=== PATIENT | male | born 1985 ===

== ENCOUNTER 2025-03-26 14:17 | Inpatient (IN) | payer MEDICAID, OTHER, SELFPAY ==
--- OUTSIDE RECORDS SUMMARY | 2025-03-26 14:40 | XMS_ITS | Clinical Summary ---
Author Organization [facility] Address [address] [place] [address] Care Team Providers Care Hedge Fund Manager Name Role Phone Camila Godwin PA-C Primary Care Provider [phone] Source Comments PLEASE NOTE, if this patient is a minor, it may be UNLAWFUL to discuss sensitive information that is contained in these records (such as FAMILY PLANNING, MENTAL HEALTH or SUBSTANCE ABUSE) with the minor patient's parent or other person without the patient's specific authorization.[facility] Allergies No known active allergies Active Problems Problem Noted Date Diagnosed Date H/O heart valve stenosis 08/21/2020 Delusional disorder ([facility]) 06/25/2018 Immunizations Immunization Administration Dates Next Due PNEUMOCOCCAL POLYSACCHARIDE PPV23 (Pneumovax 23) 08/21/2020 TDAP 08/21/2020 Family History Medical History Relation Name Comments Heart Problems Brother 1 Heart Problems Father Breast cancer Mother 47 yo Diabetes Mother 47 yo Relation Name Status Comments Brother 1 Brother 2 Alive Father Mother 47 yo Social History Tobacco Use Types Packs/Day Years Used Date Smoking Tobacco: Every Day Cigarettes 0.3 20 Smokeless Tobacco: Never Tobacco Cessation:Ready to Q uit: Yes; Counseling Given: Yes Comments:patient stated that he smokes 3-4 cigarettes per day Alcohol Use Standard Drinks/Week Comments Not Currently 0 (1 standard drink = 0.6 oz pur e alcohol) Social Connections Answer Date Recorded Connectedness 0 07/28/2024 Financial Resource Strain Answer Date R ecorded Financial Resource Strain 0 2019 Stress Answer Date Recorded Stress 0 07/15/2020 Physical Activity Answer Date Recorded Physical Activity 0 07/15/2020 Food Insecurity Answer Date Recorded Food 0 08/01/2024 Transportation Needs Answer Date Record ed Transportation 0 07/15/2020 Housing Stability Answer Date Recorded Housing 0 07/15/2020 Safety and Environment Answer Date Javier rded Safety 0 07/15/2020 Utilities Answer Date Recorded Utilities 0 07/15/2020 Employment Answer Date Recorded Stress 0 07/28/2024 Sex and Gender Information Value Date Recorded Sex Assigned at Male 08/24/2020 5:37 AM PDT Legal Sex Male 10:19 AM PDT Gender Identity Male 08/24/2020 5:37 AM PDT Sexual Orientation Straight 08/24/2020 5: 37 AM PDT Last Filed Vital Signs Vital Sign Reading Time Taken Comments Blood Pressure 100/70 08/21/2020 9:57 AM EDT Pulse 68 08/21/2020 9:57 AM EDT Temperature 36.7 ??C (98.1 ??F) 08/21/2020 9:57 AM ED T Respiratory Rate 16 08/21/2020 9:57 AM EDT Oxygen Saturation - - Inhaled Oxygen Concentration - - Weight 88.5 kg (195 lb) 08/21/2020 9:57 AM EDT Height 208.3 cm (6' 10 ) 08/21/2020 9:57 AM EDT Body Mass Index 20.39 08/21/2020 9:57 AM EDT Plan of Treatment Health Maintenance Due Date Last Done Comments Anxiety Screening 1986 Tobacco Screening 1986 Imm-Hepatitis B (1 of 3 - 19 + 3-dose series) 2005 Hypertension Screening (#1) 08/21/2021 Imm-Pneumococcal (2 of 2 - PCV) 08/21/2021 0 Tobacco Cessation Counseling (#1) 08/21/2021 Diabetes Screening 08/21/2023 08/21/2020, 08/21/2020 [id number] (1 - season) 2024 Imm-Influenza (#1) 2024 11/28/2019 Alcohol and Drug Screen 11/06/2024 08/21/2020, 08/21 Depression Annual Screen 11/06/2024 08/21/2020 Imm-DTaP/Tdap/Td (2 - Td or Tdap) 08/21/2030 020 HIV Screening Completed 08/21/2020 Hepatitis C Screening Completed 08/21/2020 Procedures Procedure Name Priority Date/Time Associated Diagnosis Comments ANTIBODY HIV-1&HIV-2 SINGLE RESULT Routine 08/21/2020 11:23 AM EDT Encounter for screening for HIV HEPATITIS A,B,C PANEL Routine 08/21/2020 11:23 AM EDT Need for hepatitis C screening test HEMOGLOBIN GLYCOSYLATED A1C Routine 08/21/2020 11:23 AM EDT Encounter to establish care from Last 3 Months or Most Recently Relevant to Health Maintenance Results * (ABNORMAL) HEPATITIS A,B,C PANEL (08/21/2020 11:23 AM EDT) HEPATITIS B SURFACE ANTIBODY NEGATIVE NEGATIVE [facility] HEPATITIS B SURFACE ANTIGEN POSITIVE(A) NEGATIVE [facility] Comment: Over the counter supplements containing high doses of biotin may interfere with this assay. ??If interference is suspected, patients shoud be retested after refraining from biotin supplements for 72 hours. HEPATITIS C VIRUS DIAGNOSTIC NEGATIVE NEGATIVE [facility] HEPATITIS A ANTIBODY TOTAL POSITIVE(A) NEGATIVE [facility] Comment: Over the counter supplements containing high doses of biotin may interfere with this assay. ??If interference is suspected, patients shoud be retested after refraining from biotin supplements for 72 hours. HEPATITIS B CORE ANTIBODY POSITIVE(A) NEGATIVE [facility] Blood Blood / Unknown 08/21/2020 1 1:23 AM EDT 08/21/2020 5:01 PM EDT Narrative [facility] - 08/21/2020 8:08 PM EDT [employer], [place] [address] Stripper Preliminary - Cailin Mary MD PT ID [id number] ORD# [id number] Camila Godwin PA-C LAB - BLOOD DRAW [place] [address], * HIV-1 & HIV-2 ANTIBODIES (08/21/2020 11:23 AM EDT) [facility] HIV 1 AND 2 ANTIBODY SCREEN NEGATIVE NEGATIVE [facility] Comment: This assay is a 4th generation assay allowing for earlier detection of HIV infection by detecting the presence of the HIV-1 p24 antigen as well as the traditional antibodies to HIV type 1 (including group O) and type 2. ??Use of a 4th generation assay is the current CDC recommendation for HIV screening. Blood Blood / Unknown 08/21/2020 1 1:23 AM EDT 08/21/2020 5:01 PM EDT [facility] - 08/21/2020 8:29 PM EDT [employer] [address] Stripper Preliminary - Cailin Mary MD PT ID [id number] ORD# [id number] us Camila Godwin PA-C LAB - BLOOD DRAW Edited Resu lt - Final Performing Organization Address City/[facility]/ZIP Co de Phone Number [address] [address], [place] [phone] * HEMOGLOBIN, GLYCOSYLATED (A1C) (08/21/2020 11:23 AM EDT) [facility] GLYCATED HEMOGLOBIN A1C 5.0 <6.5 % [facility] ESTIMATED AVERAGE GLUCOSE 97 mg/dL [facility] Blood Blood / Unknown 08/21/2020 1 1:23 AM EDT 08/21/2020 5:01 PM EDT Sharmaine [facility] - 08/21/2020 9:21 PM EDT [employer], a member of [address] [address] Stripper Preliminary - Cailin Mary MD PT ID [id number] ORD# [id number] us Camila Godwin PA-C LAB - BLOOD DRAW Final Resul t Performing Organization Address City/[facility]/ZIP Co de Phone Number [address] [address], from Last 3 Months or Most Recently Relevant to Health Maintenance [place] [facility] SAFETY NET DENTAL Care Teams Hedge Fund Manager Relationship Specialty Start Date End Date Camila Godwin PA-C [address] [place] [address] PCP - General FAMILY MEDICINELINDA 07/14/20
[2025-03-26 15:44] VITALS: BMI 15.4
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
[2025-03-26 20:00] VITALS: BP 128/67; PULSE 89; RESP 16; TEMP 36.9; O2SAT 100
[2025-03-27 07:50] VITALS: BP 143/80; PULSE 88; RESP 16; TEMP 37.2; O2SAT 100
[2025-03-27 09:11] VITALS: BP 143/80; PULSE 88
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
[2025-03-27 09:51] LABS: MANUAL DIFF FLAG NO
[2025-03-27 09:59] LABS: Hematocrit 40.6 % (42.0-52.0); Hemoglobin 13.3 g/dl (14.0-18.0); Imm Gran Abs Auto 0.01 X10*3/uL (0.00-0.03); Imm Gran Pct Auto 0.2 % (0.0-0.4); Lymphocytes Absolute Auto 2.1 X10*3/uL (1.2-4.9); Mean Corpuscular HGB Conc 32.8 g/dl (31.0-36.0); Mean Corpuscular Hemoglobin 24.9 pg (27.0-33.0); Mean Corpuscular Volume 75.9 fL (80.0-98.0); NRBC Abs Auto 0.000 X10*3/uL (0.0-0.012); NRBC Pct Auto 0.0 /100WBC (0.0-0.2); Platelet Count 323 X10*3/uL (160-400); Red Blood Count 5.35 X10*6/uL (4.60-5.80); White Blood Count 4.9 X10*3/uL (4.8-10.8)
[2025-03-27 11:06] LABS: Hemoglobin A1C 118.1046 umol/L; Total Hemoglobin (HGBA1C) 3468.5145 umol/L
[2025-03-27 11:17] LABS: Cholesterol 117 mg/dL (<200); HDL Cholesterol 38 mg/dL (>40); Triglycerides 97 mg/dL (<150)
[2025-03-27 11:45] LABS: Free T4 (Free Thyroxine) 2.30 ng/dL (0.71-1.85); Thyroid Stimulating Hormone < 0.01 uIU/mL (0.32-4.0)
[2025-03-27 12:09] LABS: Folate 13.4 ng/mL (> or = 4.0); Vitamin B12 663 pg/mL (200-900)
--- NOTE | 2025-03-27 14:17 | P.PNPSI_ITS ---
Subjective Subjective Date of Service: 03/27/25 Reason For Visit: Major depressive d/o, single episode, unspecified Interim History: declined interview, stated he wanted to sleep. per staff, refused meds last NOC. slept about 5 hours. took meds this morning. religiously preoccupied. Mental Status Exam Mental Status Exam Narrative: very tall and thin. adequately dressed and groomed. exopthalmos. not cooperative. somnolent. speech rapid but decr amount. thoughts linear in brief interaction. affect hyper-intense, constricted, non-labile. mood not assessed. no SI/HI/AVH expressed. Diagnostics Vital Signs (24Hr): Vital Signs - 24 hr 03/26/25 20:00 03/27/25 07:50 03/27/25 09:11 Temperature 98.4 F 98.9 F Pulse Rate 89 88 88 Respiratory Rate 16 16 Blood Pressure 128/67 143/80 H 143/80 H Pulse Oximetry 100 100 Oxygen Delivery Method Room Air Room Air BMI result Body Mass Index 15.4 Labs 03/27/25 09:44 Labs: Laboratory Results - last 48 hr 03/27/25 09:44 WBC 4.9 RBC 5.35 Hgb 13.3 L Hct 40.6 L MCV 75.9 L MCH 24.9 L MCHC 32.8 RDW 14.7 Plt Count 323 MPV 9.4 Immature Gran % (Auto) 0.2 Neut % (Auto) 31.4 L Lymph % (Auto) 43.2 H Mccormick % (Auto) 12.8 H Eos % (Auto) 11.8 H Baso % (Auto) 0.6 Lymph # (Auto) 2.1 Mccormick # (Auto) 0.6 Eos # (Auto) 0.6 H Baso # (Auto) 0.0 Abs Immat Gran (auto) 0.01 Absolute Neuts (auto) 1.5 L Absolute Nucleated RBC 0.000 Nucleated RBC % (auto) 0.0 Estimat Average Glucose 105 Hemoglobin A1c % 5.3 Triglycerides 97 Cholesterol 117 LDL Cholesterol, Calc 60 HDL Cholesterol 38 L Vitamin B12 663 Folate 13.4 TSH < 0.01 L Free T4 2.30 H Medications Medications Current Medications Acetaminophen (Acetaminophen 325 Mg Tablet) 650 mg PO Q6H PRN PRN Reason: Headache/Pain, Scale 1-10 Al Hydroxide/Mg Hydroxide (Magnesium Hydrox/Alum Hydrox 30 Ml Oral.Susp) 30 ml PO Q6H PRN PRN Reason: Heartburn/Nausea Haloperidol (Haloperidol 5 Mg Tablet) 5 mg PO Q4H PRN PRN Reason: agitation Hydroxyzine HCl (Hydroxyzine Hcl 25 Mg Tablet) 25 mg PO Q6H PRN PRN Reason: mild anxiety [place] Carbonate ([place]asper Carbonate Er 300 Mg Tablet.Er) 600 mg PO BID [facility] Last Admin: 03/27/25 09:12 Dose: 600 mg Lorazepam (Lorazepam 1 Mg Tablet) 2 mg PO Q4H PRN PRN Reason: agitation Magnesium Hydroxide (Milk Of Magnesia 30 Ml Oral.Susp) 30 ml PO DAILY PRN PRN Reason: Constipation Methimazole (Methimazole 10 Mg Tablet) 40 mg PO DAILY [facility] Last Admin: 03/27/25 09:11 Dose: 40 mg Multivitamins/Vitamin C (Multivitamin Tablet) 1 tab PO DAILY [facility] Last Admin: 03/27/25 09:12 Dose: 1 tab Nicotine Polacrilex (Nicotine Polacrilex 2 Mg Gum) 4 mg BUCCAL Q1H PRN PRN Reason: Nicotine Cravings Propranolol HCl (Propranolol Hcl 20 Mg Tablet) 20 mg PO TID [facility]; Protocol Last Admin: 03/27/25 09:11 Dose: 20 mg Quetiapine Fumarate (Quetiapine Fumarate 200 Mg Tablet) 200 mg PO BEDTIME [facility] Last Admin: 03/26/25 20:35 Dose: Not Given Quetiapine Fumarate (Quetiapine Fumarate 200 Mg Tablet) 200 mg PO BEDTIME PRN PRN Reason: insomnia Allergies Allergies Allergy/AdvReac Type Severity Reaction Status Date / Time No Known Allergies Allergy Verified 03/26/25 14:24 Assessment & Plan Assessment & Plan (1) Hyperthyroidism: Status: Acute Code(s): E05.90 - Thyrotoxicosis, unspecified without thyrotoxic crisis or storm Assessment and Plan: 40-year-old male with past medical history of bipolar disorder hypothyroidism admitted with manic episode. Bipolar disorder Treatment per psychiatric team Hyperthyroidism Endocrinology consulted by ED, notes reviewed. His discharged on methimazole 40 mg daily Recommendations for labs every other day. Patient has consented to have his labs drawn understands importance of follow up labs and regulation of his hyperthyroidism. Discharged on propanolol 20 mg 3 times a day heart rate less than 100 at this time. TSH, thyroid stimulating antithrombin and thyrotropin antibody drawn and pending. Continue to monitor and adjust He will need follow up with endocrinology as an outpatient He will also need a primary care doctor referral as an outpatient Thank you for allowing me to participate in the care of this patient. Please notify medical team with any acute concerns or issues. Will continue to follow. (2) Kemi: Status: Acute Code(s): F30.9 - Manic episode, unspecified Plan 03/26: offer lithium and seroquel for kemi. continue methimazole and beta joanne for hyperthyroidism as [place] [facility]. trend TFTs. 12b. 03/27: taking methimazole and beta joanne. refused HS meds last night, took morning meds today. continue to encourage medication compliance. Reason for continued inpatient stay Substantial Risk for: harm to others and inability to function Time Spent With Patient Time: Total time managing care of this patient today __25__ minutes.
[2025-03-27 20:00] VITALS: BP 130/63; PULSE 94; RESP 18; TEMP 37.1; O2SAT 100
[2025-03-27 21:53] VITALS: BP 108/65
[2025-03-28 07:55] VITALS: BP 133/60; PULSE 97; RESP 16; TEMP 37.2; O2SAT 99
[2025-03-28 08:00] VITALS: BP 133/60; PULSE 97; RESP 16; TEMP 37.2; O2SAT 99
--- NOTE | 2025-03-28 11:18 | PM.EVENT ---
Event Note Date of Service: 03/28/25 Event Note: Spoke with Dr. Bejarano regarding hyperthyroidism. She reviewed record, recommended that methimazole be decreased to 20 mg daily. Free T4 is decreasing. She recommends that free T4 is checked weekly. Prior to discharge from this facility patient should have a TSH and a free T4 checked. Following this he should have a TSH and free T4 checked in 6 weeks. Patient will need a primary care doctor referral as well as endocrinology referral prior to discharge. Time Spent With Patient Time: Total time managing care of this patient today ____ minutes.
--- NOTE | 2025-03-28 12:12 | MHC.CLN ---
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
[2025-03-28 19:49] VITALS: BP 192/96; PULSE 108; RESP 18; TEMP 37.6; O2SAT 99
--- NOTE | 2025-03-28 21:24 | PC.NURSE ---
Pt bp was measured by [facility] to be 192/96 in right arm, retaken manually at 148/80.
[2025-03-29 08:47] VITALS: BP 144/69; PULSE 91; RESP 18; TEMP 37.2; O2SAT 99
[2025-03-29] MEDS: Propranolol HCL LA 60 MG CAP.SA.24H PO (08:47)
--- NOTE | 2025-03-29 15:20 | P.PNPSI_ITS ---
Subjective Subjective Date of Service: 03/29/25 Reason For Visit: Major depressive d/o, single episode, unspecified Interim History: Keeping to self. no groups. observed laying in bed listening to music on unit headphones. pleasant. Pt reports feeling good today and sleeping well. declined lithium and zyprexa. denies SI/HI/VH/AH. Medication Compliance: Intermittent Side effects from medications: No Attending Groups: No Mental Status Exam Mental Status Exam Patient Appearance: Appropriate Patient Orientation: Person, Place, Time and Situation Level of Consciousness: Awake Patient Behavior: Appropriate, Guarded and Good Eye Contact Mood Description: Calm Affect Description: Calm Ability to Follow Directions: Good Speech Pattern: Clear Memory Description: Intact Hallucinations: None Delusions: Not Present Thought Process: Intact Thought Content: positive for Intact Diagnostics Vital Signs (24Hr): Vital Signs - 24 hr 03/28/25 19:49 03/29/25 08:47 03/29/25 08:47 Temperature 99.6 F 98.9 F Pulse Rate 108 H 91 91 Respiratory Rate 18 18 Blood Pressure 192/96 H 144/69 H 144/69 H Pulse Oximetry 99 99 Oxygen Delivery Method Room Air Room Air BMI result Body Mass Index 15.4 Labs 03/27/25 09:44 Medications Medications Current Medications Acetaminophen (Acetaminophen 325 Mg Tablet) 650 mg PO Q6H PRN PRN Reason: Headache/Pain, Scale 1-10 Al Hydroxide/Mg Hydroxide (Magnesium Hydrox/Alum Hydrox 30 Ml Oral.Susp) 30 ml PO Q6H PRN PRN Reason: Heartburn/Nausea Haloperidol (Haloperidol 5 Mg Tablet) 5 mg PO Q4H PRN PRN Reason: agitation Hydroxyzine HCl (Hydroxyzine Hcl 25 Mg Tablet) 25 mg PO Q6H PRN PRN Reason: mild anxiety Silex Carbonate (Silex Carbonate Er 300 Mg Tablet.Er) 1,200 mg PO DAILY [facility] Last Admin: 03/29/25 08:55 Dose: Not Given Lorazepam (Lorazepam 1 Mg Tablet) 2 mg PO Q4H PRN PRN Reason: agitation Magnesium Hydroxide (Milk Of Magnesia 30 Ml Oral.Susp) 30 ml PO DAILY PRN PRN Reason: Constipation Methimazole (Methimazole 10 Mg Tablet) 20 mg PO DAILY [facility] Last Admin: 03/29/25 08:49 Dose: 20 mg Multivitamins/Vitamin C (Multivitamin Tablet) 1 tab PO DAILY [facility] Last Admin: 03/29/25 08:49 Dose: 1 tab Nicotine Polacrilex (Nicotine Polacrilex 2 Mg Gum) 4 mg BUCCAL Q1H PRN PRN Reason: Nicotine Cravings Olanzapine (Olanzapine 5 Mg Tablet) 5 mg PO DAILY [facility] Last Admin: 03/29/25 08:55 Dose: Not Given Propranolol HCl (Propranolol Hcl La 60 Mg Cap.Sa.24h) 60 mg PO DAILY [facility]; Protocol Last Admin: 03/29/25 08:47 Dose: 60 mg Quetiapine Fumarate (Quetiapine Fumarate 200 Mg Tablet) 200 mg PO BEDTIME PRN PRN Reason: insomnia Allergies Allergies Allergy/AdvReac Type Severity Reaction Status Date / Time No Known Allergies Allergy Verified 03/26/25 14:24 Assessment & Plan Assessment & Plan (1) Hyperthyroidism: Status: Acute Code(s): E05.90 - Thyrotoxicosis, unspecified without thyrotoxic crisis or storm Assessment and Plan: 40-year-old male with past medical history of bipolar disorder hypothyroidism admitted with manic episode. Bipolar disorder Treatment per psychiatric team Hyperthyroidism Endocrinology consulted by ED, notes reviewed. His discharged on methimazole 40 mg daily Recommendations for labs every other day. Patient has consented to have his labs drawn understands importance of follow up labs and regulation of his hyperthyroidism. Discharged on propanolol 20 mg 3 times a day heart rate less than 100 at this time. TSH, thyroid stimulating antithrombin and thyrotropin antibody drawn and pending. Continue to monitor and adjust He will need follow up with endocrinology as an outpatient He will also need a primary care doctor referral as an outpatient Thank you for allowing me to participate in the care of this patient. Please notify medical team with any acute concerns or issues. Will continue to follow. (2) Kemi: Status: Acute Code(s): F30.9 - Manic episode, unspecified Plan 03/26: offer lithium and seroquel for kemi. continue methimazole and beta joanne for hyperthyroidism as started at [facility]. trend TFTs. 12b. 03/27: taking methimazole and beta joanne. refused HS meds last night, took morning meds today. continue to encourage medication compliance. 03/28: intermittently taking meds. wants all meds in morning. pressured, manic, paranoid delusions. encouraged to take lithium but states he will not. all meds ordered for morning. 03/29: Keeping to self. no groups. observed laying in bed listening to music on unit headphones. pleasant. Pt reports feeling good today and sleeping well. declined lithium and zyprexa. denies SI/HI/VH/AH. continue current tx plan. Patient educated on: medication risk/benefits Reason for continued inpatient stay Substantial Risk for: med/psych decompensation Time Spent With Patient Time: Total time managing care of this patient today _10___ minutes.
[2025-03-29 19:18] VITALS: BP 149/71; PULSE 91; RESP 16; TEMP 36.6; O2SAT 99
[2025-03-30 08:31] VITALS: BP 137/75; PULSE 95; RESP 18; TEMP 36.6; O2SAT 100
--- NOTE | 2025-03-30 09:21 | P.PNPSI_ITS ---
Subjective Subjective Date of Service: 03/30/25 Reason For Visit: Major depressive d/o, single episode, unspecified Interim History: Irritable. upset he was unable to use his personal hygiene products. Per nursing, pt threatened staff and squeezed tooth paste throughout unit hallway to show his frustration. Pt was able to calm down after speaking with security. declined medications. Medication Compliance: No Side effects from medications: No Attending Groups: No Mental Status Exam Mental Status Exam Patient Appearance: Appropriate Patient Orientation: Person, Place, Time and Situation Level of Consciousness: Awake Patient Behavior: Verbal Threats and Swearing Mood Description: Angry Affect Description: Constricted Ability to Follow Directions: Good Speech Pattern: Clear Memory Description: Intact Hallucinations: None Thought Process: Intact Thought Content: positive for Intact Diagnostics Vital Signs (24Hr): Vital Signs - 24 hr 03/29/25 19:18 03/30/25 08:31 Temperature 97.9 F 97.8 F Pulse Rate 91 95 Respiratory Rate 16 18 Blood Pressure 149/71 H 137/75 Pulse Oximetry 99 100 Oxygen Delivery Method Room Air Room Air BMI result Body Mass Index 15.4 Labs 03/27/25 09:44 Medications Medications Current Medications Acetaminophen (Acetaminophen 325 Mg Tablet) 650 mg PO Q6H PRN PRN Reason: Headache/Pain, Scale 1-10 Al Hydroxide/Mg Hydroxide (Magnesium Hydrox/Alum Hydrox 30 Ml Oral.Susp) 30 ml PO Q6H PRN PRN Reason: Heartburn/Nausea Haloperidol (Haloperidol 5 Mg Tablet) 5 mg PO Q4H PRN PRN Reason: agitation Hydroxyzine HCl (Hydroxyzine Hcl 25 Mg Tablet) 25 mg PO Q6H PRN PRN Reason: mild anxiety Wheatley Carbonate (Wheatley Carbonate Er 300 Mg Tablet.Er) 1,200 mg PO DAILY [facility] Last Admin: 03/30/25 08:42 Dose: Not Given Lorazepam (Lorazepam 1 Mg Tablet) 2 mg PO Q4H PRN PRN Reason: agitation Magnesium Hydroxide (Milk Of Magnesia 30 Ml Oral.Susp) 30 ml PO DAILY PRN PRN Reason: Constipation Methimazole (Methimazole 10 Mg Tablet) 20 mg PO DAILY [facility] Last Admin: 03/30/25 08:42 Dose: Not Given Multivitamins/Vitamin C (Multivitamin Tablet) 1 tab PO DAILY [facility] Last Admin: 03/30/25 08:42 Dose: Not Given Nicotine Polacrilex (Nicotine Polacrilex 2 Mg Gum) 4 mg BUCCAL Q1H PRN PRN Reason: Nicotine Cravings Olanzapine (Olanzapine 5 Mg Tablet) 5 mg PO DAILY [facility] Last Admin: 03/30/25 08:43 Dose: Not Given Propranolol HCl (Propranolol Hcl La 60 Mg Cap.Sa.24h) 60 mg PO DAILY [facility]; Protocol Last Admin: 03/30/25 08:43 Dose: Not Given Quetiapine Fumarate (Quetiapine Fumarate 200 Mg Tablet) 200 mg PO BEDTIME PRN PRN Reason: insomnia Allergies Allergies Allergy/AdvReac Type Severity Reaction Status Date / Time No Known Allergies Allergy Verified 03/26/25 14:24 Assessment & Plan Assessment & Plan (1) Hyperthyroidism: Status: Acute Code(s): E05.90 - Thyrotoxicosis, unspecified without thyrotoxic crisis or storm Assessment and Plan: 40-year-old male with past medical history of bipolar disorder hypothyroidism admitted with manic episode. Bipolar disorder Treatment per psychiatric team Hyperthyroidism Endocrinology consulted by ED, notes reviewed. His discharged on methimazole 40 mg daily Recommendations for labs every other day. Patient has consented to have his labs drawn understands importance of follow up labs and regulation of his hyperthyroidism. Discharged on propanolol 20 mg 3 times a day heart rate less than 100 at this time. TSH, thyroid stimulating antithrombin and thyrotropin antibody drawn and pending. Continue to monitor and adjust He will need follow up with endocrinology as an outpatient He will also need a primary care doctor referral as an outpatient Thank you for allowing me to participate in the care of this patient. Please notify medical team with any acute concerns or issues. Will continue to follow. (2) Kemi: Status: Acute Code(s): F30.9 - Manic episode, unspecified Plan 03/26: offer lithium and seroquel for kemi. continue methimazole and beta joanne for hyperthyroidism as started at [facility]. trend TFTs. 12b. 03/27: taking methimazole and beta joanne. refused HS meds last night, took morning meds today. continue to encourage medication compliance. 03/28: intermittently taking meds. wants all meds in morning. pressured, manic, paranoid delusions. encouraged to take lithium but states he will not. all meds ordered for morning. 03/29: Keeping to self. no groups. observed laying in bed listening to music on unit headphones. pleasant. Pt reports feeling good today and sleeping well. declined lithium and zyprexa. denies SI/HI/VH/AH. continue current tx plan. 03/30:Irritable. upset he was unable to use his personal hygiene products. Per nursing, pt threatened staff and squeezed tooth paste throughout unit hallway to show his frustration. Pt was able to calm down after speaking with security. declined medications. Patient educated on: diagnosis and medication risk/benefits Reason for continued inpatient stay Substantial Risk for: med/psych decompensation Time Spent With Patient Time: Total time managing care of this patient today __20__ minutes.
[2025-03-30 19:34] VITALS: BP 135/89; PULSE 98; RESP 16; TEMP 36.8; O2SAT 100
--- NOTE | 2025-03-31 08:49 | HO.PSYCHPN ---
Subjective Subjective Date of Service: 03/31/25 Reason For Visit: Major depressive d/o, single episode, unspecified Interim History: Keeping to self. laying in bed listening to music. refused medications. calm today. Patient reports feeling great ; pt stated, nothing is wrong with me. I'm waiting so I can leave tomorrow. I'm hoping for the best . denies SI/HI/VH/AH. per nursing, slept 6 hours. Continue current tx plan. Medication Compliance: No Attending Groups: No Mental Status Exam Mental Status Exam Patient Appearance: Appropriate Patient Orientation: Person, Place, Time and Situation Level of Consciousness: Awake Patient Behavior: Cooperative Mood Description: Calm Affect Description: Constricted Ability to Follow Directions: Good Speech Pattern: Clear Memory Description: Intact Hallucinations: None Delusions: Not Present Thought Process: Intact Thought Content: positive for Intact Diagnostics Vital Signs (24Hr): Vital Signs - 24 hr 03/30/25 19:34 Temperature 98.3 F Pulse Rate 98 Respiratory Rate 16 Blood Pressure 135/89 Pulse Oximetry 100 Oxygen Delivery Method Room Air BMI result Body Mass Index 15.4 Labs 03/27/25 09:44 Labs: Laboratory Results - last 48 hr 03/27/25 09:44 TSH Receptor Ab 9.86 H Medications Medications Current Medications Acetaminophen (Acetaminophen 325 Mg Tablet) 650 mg PO Q6H PRN PRN Reason: Headache/Pain, Scale 1-10 Al Hydroxide/Mg Hydroxide (Magnesium Hydrox/Alum Hydrox 30 Ml Oral.Susp) 30 ml PO Q6H PRN PRN Reason: Heartburn/Nausea Haloperidol (Haloperidol 5 Mg Tablet) 5 mg PO Q4H PRN PRN Reason: agitation Hydroxyzine HCl (Hydroxyzine Hcl 25 Mg Tablet) 25 mg PO Q6H PRN PRN Reason: mild anxiety [place] Carbonate ([place] Carbonate Er 300 Mg Tablet.Er) 1,200 mg PO DAILY [facility] Last Admin: 03/30/25 08:42 Dose: Not Given Lorazepam (Lorazepam 1 Mg Tablet) 2 mg PO Q4H PRN PRN Reason: agitation Magnesium Hydroxide (Milk Of Magnesia 30 Ml Oral.Susp) 30 ml PO DAILY PRN PRN Reason: Constipation Methimazole (Methimazole 10 Mg Tablet) 20 mg PO DAILY [facility] Last Admin: 03/30/25 08:42 Dose: Not Given Multivitamins/Vitamin C (Multivitamin Tablet) 1 tab PO DAILY [facility] Last Admin: 03/30/25 08:42 Dose: Not Given Nicotine Polacrilex (Nicotine Polacrilex 2 Mg Gum) 4 mg BUCCAL Q1H PRN PRN Reason: Nicotine Cravings Olanzapine (Olanzapine 5 Mg Tablet) 5 mg PO DAILY [facility] Last Admin: 03/30/25 08:43 Dose: Not Given Propranolol HCl (Propranolol Hcl La 60 Mg Cap.Sa.24h) 60 mg PO DAILY [facility]; Protocol Last Admin: 03/30/25 08:43 Dose: Not Given Quetiapine Fumarate (Quetiapine Fumarate 200 Mg Tablet) 200 mg PO BEDTIME PRN PRN Reason: insomnia Allergies Allergies Allergy/AdvReac Type Severity Reaction Status Date / Time No Known Allergies Allergy Verified 03/26/25 14:24 Assessment & Plan Assessment & Plan (1) Hyperthyroidism: Status: Acute Code(s): E05.90 - Thyrotoxicosis, unspecified without thyrotoxic crisis or storm Assessment and Plan: 40-year-old male with past medical history of bipolar disorder hypothyroidism admitted with manic episode. Bipolar disorder Treatment per psychiatric team Hyperthyroidism Endocrinology consulted by ED, notes reviewed. His discharged on methimazole 40 mg daily Recommendations for labs every other day. Patient has consented to have his labs drawn understands importance of follow up labs and regulation of his hyperthyroidism. Discharged on propanolol 20 mg 3 times a day heart rate less than 100 at this time. TSH, thyroid stimulating antithrombin and thyrotropin antibody drawn and pending. Continue to monitor and adjust He will need follow up with endocrinology as an outpatient He will also need a primary care doctor referral as an outpatient Thank you for allowing me to participate in the care of this patient. Please notify medical team with any acute concerns or issues. Will continue to follow. (2) Kemi: Status: Acute Code(s): F30.9 - Manic episode, unspecified Plan 03/26: offer lithium and seroquel for kemi. continue methimazole and beta joanne for hyperthyroidism as started at [facility]. trend TFTs. 12b. 03/27: taking methimazole and beta joanne. refused HS meds last night, took morning meds today. continue to encourage medication compliance. 03/28: intermittently taking meds. wants all meds in morning. pressured, manic, paranoid delusions. encouraged to take lithium but states he will not. all meds ordered for morning. 03/29: Keeping to self. no groups. observed laying in bed listening to music on unit headphones. pleasant. Pt reports feeling good today and sleeping well. declined lithium and zyprexa. denies SI/HI/VH/AH. continue current tx plan. 03/30:Irritable. upset he was unable to use his personal hygiene products. Per nursing, pt threatened staff and squeezed tooth paste throughout unit hallway to show his frustration. Pt was able to calm down after speaking with security. declined medications. 03/31: Keeping to self. laying in bed listening to music. refused medications. calm today. Patient reports feeling great ; pt stated, nothing is wrong with me. I'm waiting so I can leave tomorrow. I'm hoping for the best . denies SI/HI/VH/AH. per nursing, slept 6 hours. Continue current tx plan. Patient educated on: diagnosis, medication risk/benefits and therapeutic strategies Reason for continued inpatient stay Substantial Risk for: med/psych decompensation Time Spent With Patient Time: Total time managing care of this patient today _20___ minutes.
[2025-03-31 20:00] VITALS: BP 168/127; PULSE 102; RESP 18; TEMP 36.9; O2SAT 99
[2025-04-01 08:00] VITALS: BP 163/65; PULSE 107; TEMP 37.1; O2SAT 100
--- NOTE | 2025-04-01 08:56 | P.EN_ITS ---
Event Note Date of Service: 04/01/25 Event Note: Notified by nursing that patient refusing laboratory draw as well as medications. Went to see patient on the unit, he is lying down in bed, minimally engages with provider. Reports that he is being discharged today and is going to follow up at [facility] for further care. I educated him regarding the importance of follow up blood work and compliance with his medications and again he reports that he is going to go back to [facility] for treatment of his hyperthyroidism and he does not want any assistance. Again requested that he have his blood drawn this morning to evaluate his thyroid levels. He again refused. Discussed with nursing. Time Spent With Patient Time: Total time managing care of this patient today ____ minutes.
--- NOTE | 2025-04-01 16:19 | P.PNPSI_ITS ---
Subjective Subjective Date of Service: 04/01/25 Reason For Visit: Major depressive d/o, single episode, unspecified Interim History: pressured, labile, paranoid delusions. asks if MD has met pt anywhere else but on the mental health unit, MD states no, never met pt before. later pt refers to MD as stalking him. believes there is a conspiracy to have him hospitalized and that his brother is behind it. threatened again to physically assault staff becoming impatient waiting to speak with MD. informed he would be filed on. per staff, irritable over w/e. refusing meds, including for hyperthyroidism. screaming at staff at one point that he was going to kick their asses. angry with survey party chief for cleaning up a mess he had made. Mental Status Exam Mental Status Exam Narrative: very tall and thin. adequately dressed and groomed. exopthalmos. not cooperative. very restless. speech pressured. thoughts tangential, disorganized. affect hyper-intense, constricted, labile. mood not assessed. no SI/HI/AVH expressed. Diagnostics Vital Signs (24Hr): Vital Signs - 24 hr 03/31/25 20:00 04/01/25 08:00 Temperature 98.4 F 98.7 F Pulse Rate 102 H 107 H Respiratory Rate 18 Blood Pressure 168/127 H 163/65 H Pulse Oximetry 99 100 Oxygen Delivery Method Room Air Room Air BMI result Body Mass Index 15.4 Labs 03/27/25 09:44 Labs: Laboratory Results - last 48 hr 03/27/25 09:44 TSH Receptor Ab 9.86 H Medications Medications Current Medications Acetaminophen (Acetaminophen 325 Mg Tablet) 650 mg PO Q6H PRN PRN Reason: Headache/Pain, Scale 1-10 Al Hydroxide/Mg Hydroxide (Magnesium Hydrox/Alum Hydrox 30 Ml Oral.Susp) 30 ml PO Q6H PRN PRN Reason: Heartburn/Nausea Haloperidol (Haloperidol 5 Mg Tablet) 5 mg PO Q4H PRN PRN Reason: agitation Hydroxyzine HCl (Hydroxyzine Hcl 25 Mg Tablet) 25 mg PO Q6H PRN PRN Reason: mild anxiety [place] Carbonate ([place] Carbonate Er 300 Mg Tablet.Er) 1,200 mg PO DAILY [facility] Last Admin: 04/01/25 08:45 Dose: Not Given Lorazepam (Lorazepam 1 Mg Tablet) 2 mg PO Q4H PRN PRN Reason: agitation Magnesium Hydroxide (Milk Of Magnesia 30 Ml Oral.Susp) 30 ml PO DAILY PRN PRN Reason: Constipation Methimazole (Methimazole 10 Mg Tablet) 20 mg PO DAILY [facility] Last Admin: 04/01/25 08:45 Dose: Not Given Multivitamins/Vitamin C (Multivitamin Tablet) 1 tab PO DAILY [facility] Last Admin: 04/01/25 08:45 Dose: Not Given Nicotine Polacrilex (Nicotine Polacrilex 2 Mg Gum) 4 mg BUCCAL Q1H PRN PRN Reason: Nicotine Cravings Olanzapine (Olanzapine 5 Mg Tablet) 5 mg PO DAILY [facility] Last Admin: 04/01/25 08:45 Dose: Not Given Propranolol HCl (Propranolol Hcl La 60 Mg Cap.Sa.24h) 60 mg PO DAILY [facility]; Protocol Last Admin: 04/01/25 08:45 Dose: Not Given Quetiapine Fumarate (Quetiapine Fumarate 200 Mg Tablet) 200 mg PO BEDTIME PRN PRN Reason: insomnia Allergies Allergies Allergy/AdvReac Type Severity Reaction Status Date / Time No Known Allergies Allergy Verified 03/26/25 14:24 Assessment & Plan Assessment & Plan (1) Hyperthyroidism: Status: Acute Code(s): E05.90 - Thyrotoxicosis, unspecified without thyrotoxic crisis or storm Assessment and Plan: 40-year-old male with past medical history of bipolar disorder hypothyroidism admitted with manic episode. Bipolar disorder Treatment per psychiatric team Hyperthyroidism Endocrinology consulted by ED, notes reviewed. His discharged on methimazole 40 mg daily Recommendations for labs every other day. Patient has consented to have his labs drawn understands importance of follow up labs and regulation of his hyperthyroidism. Discharged on propanolol 20 mg 3 times a day heart rate less than 100 at this time. TSH, thyroid stimulating antithrombin and thyrotropin antibody drawn and pending. Continue to monitor and adjust He will need follow up with endocrinology as an outpatient He will also need a primary care doctor referral as an outpatient (2) Kemi: Status: Acute Code(s): F30.9 - Manic episode, unspecified Plan 03/26: offer lithium and seroquel for kemi. continue methimazole and beta joanne for hyperthyroidism as started at [facility]. trend TFTs. 12b. 03/27: taking methimazole and beta joanne. refused HS meds last night, took morning meds today. continue to encourage medication compliance. 03/28: intermittently taking meds. wants all meds in morning. pressured, manic, paranoid delusions. encouraged to take lithium but states he will not. all meds ordered for morning. 03/29: Keeping to self. no groups. observed laying in bed listening to music on unit headphones. pleasant. Pt reports feeling good today and sleeping well. declined lithium and zyprexa. denies SI/HI/VH/AH. continue current tx plan. 03/30:Irritable. upset he was unable to use his personal hygiene products. Per nursing, pt threatened staff and squeezed tooth paste throughout unit hallway to show his frustration. Pt was able to calm down after speaking with security. declined medications. 03/31: Keeping to self. laying in bed listening to music. refused medications. calm today. Patient reports feeling great ; pt stated, nothing is wrong with me. I'm waiting so I can leave tomorrow. I'm hoping for the best . denies SI/HI/VH/AH. per nursing, slept 6 hours. Continue current tx plan. 04/01: variably calm on the unit versus highly agitated. paranoid delusions, irritability, lability continue. seems to believe MD has met him prior to the present hospitalization and is stalking him. believes brother behind conspiracy to have him psychiatrically hospitalized. has been refusing all medications, including for hyperthyroidism. informed he would be filed on. filed. continue to offer medications. Reason for continued inpatient stay Substantial Risk for: med/psych decompensation Time Spent With Patient Time: Total time managing care of this patient today __35__ minutes.
[2025-04-01 20:00] VITALS: BP 136/58; PULSE 99; RESP 18; TEMP 36.9; O2SAT 100
--- NOTE | 2025-04-02 11:04 | PC.NURSE ---
When RN entered pt's room to speak with pt's roommate, pt interrupted RN and stated I can't stand how you people keep coming in here, I don't want to hear you ask how he's doing. He's clearly elderly and if he needs special treatment he needs to be in a different room and I don't want to be in the same room. All I want is peace and you keep interrupting that when you come to talk to him. RN offered pt ear plugs or to be transferred to a different room but pt continued to talk over RN and stated you people have no idea what is going on. An ass whooping is coming pt made a whistling sound then hit his fist on his thigh. Pt also stated and tell that [facility] doctor not to talk to me until I meet with the ribbon blockmaker.
--- NOTE | 2025-04-02 16:04 | HO.PSYCHPN ---
Subjective Subjective Date of Service: 04/02/25 Reason For Visit: Major depressive d/o, single episode, unspecified Interim History: pt generally agitated and hostile toward MD. dismisses MD from his room accusing MD of having put him in a bad mood. later, once up and about the unit, ludmilaing on sight. calling MD pejoratives such as radha, saying after he gets out of hospital he is going to enslave MD and have MD washing his feet and clothes, and also fart in MD's face. generally disparaging of MD's personal appearance and intelligence. per staff, labile, paranoid, agitated. refused morning meds yesterday. security called, pt was informed of filing for commitment. was brighter on eves. refused meds eves as well. Mental Status Exam Mental Status Exam Narrative: very tall and thin. adequately dressed and groomed. exopthalmos. not cooperative. very restless. speech pressured. thoughts tangential, disorganized. affect hyper-intense, constricted, labile. mood not assessed. no SI/HI/AVH expressed. Diagnostics Vital Signs (24Hr): Vital Signs - 24 hr 04/01/25 20:00 Temperature 98.5 F Pulse Rate 99 Respiratory Rate 18 Blood Pressure 136/58 L Pulse Oximetry 100 Oxygen Delivery Method Room Air BMI result Body Mass Index 15.4 Labs 03/27/25 09:44 Labs: Laboratory Results - last 48 hr 03/27/25 09:44 Thyroid Stim Immunoglob 282 H Medications Medications Current Medications Acetaminophen (Acetaminophen 325 Mg Tablet) 650 mg PO Q6H PRN PRN Reason: Headache/Pain, Scale 1-10 Last Admin: 04/01/25 23:20 Dose: 650 mg Al Hydroxide/Mg Hydroxide (Magnesium Hydrox/Alum Hydrox 30 Ml Oral.Susp) 30 ml PO Q6H PRN PRN Reason: Heartburn/Nausea Haloperidol (Haloperidol 5 Mg Tablet) 5 mg PO Q4H PRN PRN Reason: agitation Hydroxyzine HCl (Hydroxyzine Hcl 25 Mg Tablet) 25 mg PO Q6H PRN PRN Reason: mild anxiety Ibuprofen (Ibuprofen 800 Mg Tablet) 800 mg PO Q4H PRN PRN Reason: pain (pain scale 1-10) [place] Carbonate ([place] Carbonate Er 300 Mg Tablet.Er) 600 mg PO BID [facility] Lorazepam (Lorazepam 1 Mg Tablet) 2 mg PO Q4H PRN PRN Reason: agitation Magnesium Hydroxide (Milk Of Magnesia 30 Ml Oral.Susp) 30 ml PO DAILY PRN PRN Reason: Constipation Methimazole (Methimazole 10 Mg Tablet) 20 mg PO DAILY REPLAC[facility] BY [facility] Last Admin: 04/02/25 09:18 Dose: Not Given Multivitamins/Vitamin C (Multivitamin Tablet) 1 tab PO DAILY REPLAC[facility] Last Admin: 04/02/25 09:18 Dose: Not Given Nicotine Polacrilex (Nicotine Polacrilex 2 Mg Gum) 4 mg BUCCAL Q1H PRN PRN Reason: Nicotine Cravings Olanzapine (Olanzapine 5 Mg Tablet) 5 mg PO DAILY [facility]PLAC[facility] Last Admin: 04/02/25 09:19 Dose: Not Given Propranolol HCl (Propranolol Hcl La 60 Mg Cap.Sa.24h) 60 mg PO DAILY [facility]PLAC[facility]; Protocol Last Admin: 04/02/25 09:19 Dose: Not Given Quetiapine Fumarate (Quetiapine Fumarate 200 Mg Tablet) 200 mg PO BEDTIME PRN PRN Reason: insomnia Allergies Allergies Allergy/AdvReac Type Severity Reaction Status Date / Time No Known Allergies Allergy Verified 03/26/25 14:24 Assessment & Plan Assessment & Plan (1) Hyperthyroidism: Status: Acute Code(s): E05.90 - Thyrotoxicosis, unspecified without thyrotoxic crisis or storm Assessment and Plan: 40-year-old male with past medical history of bipolar disorder hypothyroidism admitted with manic episode. Bipolar disorder Treatment per psychiatric team Hyperthyroidism Endocrinology consulted by ED, notes reviewed. His discharged on methimazole 40 mg daily Recommendations for labs every other day. Patient has consented to have his labs drawn understands importance of follow up labs and regulation of his hyperthyroidism. Discharged on propanolol 20 mg 3 times a day heart rate less than 100 at this time. TSH, thyroid stimulating antithrombin and thyrotropin antibody drawn and pending. Continue to monitor and adjust He will need follow up with endocrinology as an outpatient He will also need a primary care doctor referral as an outpatient (2) Becca: Status: Acute Code(s): F30.9 - Manic episode, unspecified Plan 03/26: offer lithium and seroquel for becca. continue methimazole and beta joanne for hyperthyroidism as [place] [facility]. trend TFTs. 12b. 03/27: taking methimazole and beta joanne. refused HS meds last night, took morning meds today. continue to encourage medication compliance. 03/28: intermittently taking meds. wants all meds in morning. pressured, manic, paranoid delusions. encouraged to take lithium but states he will not. all meds ordered for morning. 03/29: Keeping to self. no groups. observed laying in bed listening to music on unit headphones. pleasant. Pt reports feeling good today and sleeping well. declined lithium and zyprexa. denies SI/HI/VH/AH. continue current tx plan. 03/30:Irritable. upset he was unable to use his personal hygiene products. Per nursing, pt threatened staff and squeezed tooth paste throughout unit hallway to show his frustration. Pt was able to calm down after speaking with security. declined medications. 03/31: Keeping to self. laying in bed listening to music. refused medications. calm today. Patient reports feeling great ; pt stated, nothing is wrong with me. I'm waiting so I can leave tomorrow. I'm hoping for the best . denies SI/HI/VH/AH. per nursing, slept 6 hours. Continue current tx plan. 04/01: variably calm on the unit versus highly agitated. paranoid delusions, irritability, lability continue. seems to believe MD has met him prior to the present hospitalization and is stalking him. believes brother behind conspiracy to have him psychiatrically hospitalized. has been refusing all medications, including for hyperthyroidism. informed he would be filed on. filed. continue to offer medications. 04/02: continues agitated, belittling, verbally aggressive, refusing all medications including for hyperthyroidism. continue to offer medication. Reason for continued inpatient stay Substantial Risk for: harm to self, harm to others, inability to function and med/psych decompensation Time Spent With Patient Time: Total time managing care of this patient today __25__ minutes.
[2025-04-02 20:00] VITALS: RESP 18
[2025-04-03 07:00] VITALS: BMI 17.1
[2025-04-03 07:58] VITALS: RESP 18
--- NOTE | 2025-04-03 13:55 | P.PNPSI_ITS ---
Subjective Subjective Date of Service: 04/03/25 Reason For Visit: Major depressive d/o, single episode, unspecified Interim History: less agitated than yesterday, but continues to disbelieve he has a thyroid problem, saying it was fixed at [facility]. also claiming the thyroid medication made him vomit blood here when he took it the one time. low frustration tolerance, waves off MD and walks away, then comes back and says that when the [place] administrative law judge releases him and gives him a stick, we are all going to feel it. i'm gonna stick it in you. per staff, paranoid, labile. refusing meds. periods of agitation. security up x2 to talk to pt. refused room change. slept 6 hours overnight. Mental Status Exam Mental Status Exam Narrative: very tall and thin. adequately dressed and groomed. exopthalmos. partially cooperative. restless. speech incr rate, amount. variable loudness. decr latency. thoughts more organized and topical, but delusional and paranoid. affect hyper-intense, constricted, labile. mood not assessed. no SI/HI/AVH expressed. Diagnostics Vital Signs (24Hr): Vital Signs - 24 hr 04/02/25 20:00 04/03/25 07:58 Respiratory Rate 18 18 BMI result Body Mass Index 15.4 Labs 03/27/25 09:44 Labs: Laboratory Results - last 48 hr 03/27/25 09:44 Thyroid Stim Immunoglob 282 H Medications Medications Current Medications Acetaminophen (Acetaminophen 325 Mg Tablet) 650 mg PO Q6H PRN PRN Reason: Headache/Pain, Scale 1-10 Last Admin: 04/01/25 23:20 Dose: 650 mg Al Hydroxide/Mg Hydroxide (Magnesium Hydrox/Alum Hydrox 30 Ml Oral.Susp) 30 ml PO Q6H PRN PRN Reason: Heartburn/Nausea Haloperidol (Haloperidol 5 Mg Tablet) 5 mg PO Q4H PRN PRN Reason: agitation Hydroxyzine HCl (Hydroxyzine Hcl 25 Mg Tablet) 25 mg PO Q6H PRN PRN Reason: mild anxiety Ibuprofen (Ibuprofen 800 Mg Tablet) 800 mg PO Q4H PRN PRN Reason: pain (pain scale 1-10) [place] Carbonate ([place] Carbonate Er 300 Mg Tablet.Er) 600 mg PO BID [facility] Last Admin: 04/03/25 10:08 Dose: Not Given Lorazepam (Lorazepam 1 Mg Tablet) 2 mg PO Q4H PRN PRN Reason: agitation Magnesium Hydroxide (Milk Of Magnesia 30 Ml Oral.Susp) 30 ml PO DAILY PRN PRN Reason: Constipation Methimazole (Methimazole 10 Mg Tablet) 20 mg PO DAILY [facility] Last Admin: 04/03/25 10:08 Dose: Not Given Multivitamins/Vitamin C (Multivitamin Tablet) 1 tab PO DAILY [facility] Last Admin: 04/03/25 10:08 Dose: Not Given Nicotine Polacrilex (Nicotine Polacrilex 2 Mg Gum) 4 mg BUCCAL Q1H PRN PRN Reason: Nicotine Cravings Olanzapine (Olanzapine 5 Mg Tablet) 5 mg PO DAILY [facility] Last Admin: 04/03/25 10:08 Dose: Not Given Propranolol HCl (Propranolol Hcl La 60 Mg Cap.Sa.24h) 60 mg PO DAILY [facility]; Protocol Last Admin: 04/03/25 10:08 Dose: Not Given Quetiapine Fumarate (Quetiapine Fumarate 200 Mg Tablet) 200 mg PO BEDTIME PRN PRN Reason: insomnia Allergies Allergies Allergy/AdvReac Type Severity Reaction Status Date / Time No Known Allergies Allergy Verified 03/26/25 14:24 Assessment & Plan Assessment & Plan (1) Hyperthyroidism: Status: Acute Code(s): E05.90 - Thyrotoxicosis, unspecified without thyrotoxic crisis or storm Assessment and Plan: 40-year-old male with past medical history of bipolar disorder hypothyroidism admitted with manic episode. Bipolar disorder Treatment per psychiatric team Hyperthyroidism Endocrinology consulted by ED, notes reviewed. His discharged on methimazole 40 mg daily Recommendations for labs every other day. Patient has consented to have his labs drawn understands importance of follow up labs and regulation of his hyperthyroidism. Discharged on propanolol 20 mg 3 times a day heart rate less than 100 at this time. TSH, thyroid stimulating antithrombin and thyrotropin antibody drawn and pending. Continue to monitor and adjust He will need follow up with endocrinology as an outpatient He will also need a primary care doctor referral as an outpatient (2) Kemi: Status: Acute Code(s): F30.9 - Manic episode, unspecified Plan 03/26: offer lithium and seroquel for kemi. continue methimazole and beta joanne for hyperthyroidism as started at [facility] [place]. trend TFTs. 12b. 03/27: taking methimazole and beta joanne. refused HS meds last night, took morning meds today. continue to encourage medication compliance. 03/28: intermittently taking meds. wants all meds in morning. pressured, manic, paranoid delusions. encouraged to take lithium but states he will not. all meds ordered for morning. 03/29: Keeping to self. no groups. observed laying in bed listening to music on unit headphones. pleasant. Pt reports feeling good today and sleeping well. declined lithium and zyprexa. denies SI/HI/VH/AH. continue current tx plan. 03/30:Irritable. upset he was unable to use his personal hygiene products. Per nursing, pt threatened staff and squeezed tooth paste throughout unit hallway to show his frustration. Pt was able to calm down after speaking with security. declined medications. 03/31: Keeping to self. laying in bed listening to music. refused medications. calm today. Patient reports feeling great ; pt stated, nothing is wrong with me. I'm waiting so I can leave tomorrow. I'm hoping for the best . denies SI/HI/VH/AH. per nursing, slept 6 hours. Continue current tx plan. 04/01: variably calm on the unit versus highly agitated. paranoid delusions, irritability, lability continue. seems to believe MD has met him prior to the present hospitalization and is stalking him. believes brother behind conspiracy to have him psychiatrically hospitalized. has been refusing all medications, including for hyperthyroidism. informed he would be filed on. filed. continue to offer medications. 04/02: continues agitated, belittling, verbally aggressive, refusing all medications including for hyperthyroidism. continue to offer medication. 04/03: paranoid there is a conspiracy to hospitalize him. threatening to stick a stick in staff once he is released by [place] administrative law judge. insists his hyperthyroidism was cured at [facility]. asserts there is NOTHING wrong with him. continue to offer medication. Reason for continued inpatient stay Substantial Risk for: harm to others, inability to function and med/psych decompensation Time Spent With Patient Time: Total time managing care of this patient today __25__ minutes.
[2025-04-03 20:00] VITALS: RESP 18
[2025-04-04 07:51] VITALS: RESP 18
--- NOTE | 2025-04-04 13:51 | P.PNPSI_ITS ---
Subjective Subjective Date of Service: 04/04/25 Reason For Visit: Major depressive d/o, single episode, unspecified Interim History: in bed, awake listening to music. calls MD full of jami and a liar, says see you monday. tells MD to leave. per staff, refusing meds. labile, agitated. moderately social with staff, not with peers. slept 7 hours. Mental Status Exam Mental Status Exam Narrative: very tall and thin. adequately dressed and groomed. exopthalmos. not cooperative. speech incr rate, amount, loudness. decr latency. thoughts more organized and topical. affect hyper-intense, constricted, labile. mood not assessed. no SI/HI/AVH expressed. Diagnostics Vital Signs (24Hr): Vital Signs - 24 hr 04/03/25 20:00 04/04/25 07:51 Respiratory Rate 18 18 BMI result Body Mass Index 17.1 Labs 03/27/25 09:44 Labs: Laboratory Results - last 48 hr 03/27/25 09:44 Thyroid Stim Immunoglob 282 H Medications Medications Current Medications Acetaminophen (Acetaminophen 325 Mg Tablet) 650 mg PO Q6H PRN PRN Reason: Headache/Pain, Scale 1-10 Last Admin: 04/01/25 23:20 Dose: 650 mg Al Hydroxide/Mg Hydroxide (Magnesium Hydrox/Alum Hydrox 30 Ml Oral.Susp) 30 ml PO Q6H PRN PRN Reason: Heartburn/Nausea Haloperidol (Haloperidol 5 Mg Tablet) 5 mg PO Q4H PRN PRN Reason: agitation Hydroxyzine HCl (Hydroxyzine Hcl 25 Mg Tablet) 25 mg PO Q6H PRN PRN Reason: mild anxiety Ibuprofen (Ibuprofen 800 Mg Tablet) 800 mg PO Q4H PRN PRN Reason: pain (pain scale 1-10) [place] Carbonate ([place] Carbonate Er 300 Mg Tablet.Er) 600 mg PO BID [facility] Last Admin: 04/04/25 09:09 Dose: Not Given Lorazepam (Lorazepam 1 Mg Tablet) 2 mg PO Q4H PRN PRN Reason: agitation Magnesium Hydroxide (Milk Of Magnesia 30 Ml Oral.Susp) 30 ml PO DAILY PRN PRN Reason: Constipation Methimazole (Methimazole 10 Mg Tablet) 20 mg PO DAILY [facility] Last Admin: 04/04/25 09:09 Dose: Not Given Multivitamins/Vitamin C (Multivitamin Tablet) 1 tab PO DAILY [facility] Last Admin: 04/04/25 09:09 Dose: Not Given Nicotine (Nicotine 21 Mg Patch.Td24) 21 mg TRANSDERMA DAILY PRN PRN Reason: nicotine cravings Nicotine Polacrilex (Nicotine Polacrilex 2 Mg Gum) 4 mg BUCCAL Q1H PRN PRN Reason: Nicotine Cravings Olanzapine (Olanzapine 5 Mg Tablet) 5 mg PO DAILY [facility] Last Admin: 04/04/25 09:09 Dose: Not Given Propranolol HCl (Propranolol Hcl La 60 Mg Cap.Sa.24h) 60 mg PO DAILY [facility]; Protocol Last Admin: 04/04/25 09:09 Dose: Not Given Quetiapine Fumarate (Quetiapine Fumarate 200 Mg Tablet) 200 mg PO BEDTIME PRN PRN Reason: insomnia Allergies Allergies Allergy/AdvReac Type Severity Reaction Status Date / Time No Known Allergies Allergy Verified 03/26/25 14:24 Assessment & Plan Assessment & Plan (1) Hyperthyroidism: Status: Acute Code(s): E05.90 - Thyrotoxicosis, unspecified without thyrotoxic crisis or storm Assessment and Plan: 40-year-old male with past medical history of bipolar disorder hypothyroidism admitted with manic episode. Bipolar disorder Treatment per psychiatric team Hyperthyroidism Endocrinology consulted by ED, notes reviewed. His discharged on methimazole 40 mg daily Recommendations for labs every other day. Patient has consented to have his labs drawn understands importance of follow up labs and regulation of his hyperthyroidism. Discharged on propanolol 20 mg 3 times a day heart rate less than 100 at this time. TSH, thyroid stimulating antithrombin and thyrotropin antibody drawn and pending. Continue to monitor and adjust He will need follow up with endocrinology as an outpatient He will also need a primary care doctor referral as an outpatient (2) Kemi: Status: Acute Code(s): F30.9 - Manic episode, unspecified Plan 03/26: offer lithium and seroquel for kemi. continue methimazole and beta joanne for hyperthyroidism as started at [facility] [place]. trend TFTs. 12b. 03/27: taking methimazole and beta joanne. refused HS meds last night, took morning meds today. continue to encourage medication compliance. 03/28: intermittently taking meds. wants all meds in morning. pressured, manic, paranoid delusions. encouraged to take lithium but states he will not. all meds ordered for morning. 03/29: Keeping to self. no groups. observed laying in bed listening to music on unit headphones. pleasant. Pt reports feeling good today and sleeping well. declined lithium and zyprexa. denies SI/HI/VH/AH. continue current tx plan. 03/30:Irritable. upset he was unable to use his personal hygiene products. Per nursing, pt threatened staff and squeezed tooth paste throughout unit hallway to show his frustration. Pt was able to calm down after speaking with security. declined medications. 03/31: Keeping to self. laying in bed listening to music. refused medications. calm today. Patient reports feeling great ; pt stated, nothing is wrong with me. I'm waiting so I can leave tomorrow. I'm hoping for the best . denies SI/HI/VH/AH. per nursing, slept 6 hours. Continue current tx plan. 04/01: variably calm on the unit versus highly agitated. paranoid delusions, irritability, lability continue. seems to believe MD has met him prior to the present hospitalization and is stalking him. believes brother behind conspiracy to have him psychiatrically hospitalized. has been refusing all medications, including for hyperthyroidism. informed he would be filed on. filed. continue to offer medications. 04/02: continues agitated, belittling, verbally aggressive, refusing all medications including for hyperthyroidism. continue to offer medication. 04/03: paranoid there is a conspiracy to hospitalize him. threatening to stick a stick in staff once he is released by presiding judge. insists his hyperthyroidism was cured at [facility]. asserts there is NOTHING wrong with him. continue to offer medication. 04/04: irritable, rejecting. verbally abuses MD and sends him away: see you on monday [in court]. continue to offer medication for thyroid condition and mental illness. Reason for continued inpatient stay Substantial Risk for: inability to function and med/psych decompensation Time Spent With Patient Time: Total time managing care of this patient today __25__ minutes.
[2025-04-04 20:00] VITALS: BP 141/68; PULSE 98; RESP 16; TEMP 36.8; O2SAT 100
[2025-04-05 08:00] VITALS: RESP 16
--- NOTE | 2025-04-05 10:40 | P.PNPSI_ITS ---
Subjective Subjective Date of Service: 04/05/25 Reason For Visit: Major depressive d/o, single episode, unspecified Subjective Notes: Section 7 Interim History: Pt slept through the night. He spends most time in bed. He reports he does not have a mental illness and does not need medications. He reports this has been a misunderstanding. He has been accusatory of peers who he thinks are following him or targeting him. He denies SI/HI. declines medications. Review of Systems Review of Systems Denies any shortness of breath, chest pain, dizziness, lightheadedness, abdominal pain or discomfort, nausea vomiting or diarrhea Mental Status Exam Mental Status Exam Narrative: very tall and thin. adequately dressed and groomed. exopthalmos. superficially cooperative. speech incr rate, amount, loudness. decr latency. thoughts more organized and topical. affect hyper-intense, constricted, labile. mood good . no SI/HI/AVH expressed. Appears internally preoccupied. Diagnostics Vital Signs (24Hr): Vital Signs - 24 hr 04/04/25 20:00 Temperature 98.3 F Pulse Rate 98 Respiratory Rate 16 Blood Pressure 141/68 H Pulse Oximetry 100 Oxygen Delivery Method Room Air BMI result Body Mass Index 17.1 Labs 03/27/25 09:44 Medications Medications Current Medications Acetaminophen (Acetaminophen 325 Mg Tablet) 650 mg PO Q6H PRN PRN Reason: Headache/Pain, Scale 1-10 Last Admin: 04/01/25 23:20 Dose: 650 mg Al Hydroxide/Mg Hydroxide (Magnesium Hydrox/Alum Hydrox 30 Ml Oral.Susp) 30 ml PO Q6H PRN PRN Reason: Heartburn/Nausea Haloperidol (Haloperidol 5 Mg Tablet) 5 mg PO Q4H PRN PRN Reason: agitation Hydroxyzine HCl (Hydroxyzine Hcl 25 Mg Tablet) 25 mg PO Q6H PRN PRN Reason: mild anxiety Ibuprofen (Ibuprofen 800 Mg Tablet) 800 mg PO Q4H PRN PRN Reason: pain (pain scale 1-10) [place] Carbonate ([place] Carbonate Er 300 Mg Tablet.Er) 600 mg PO BID [facility] Last Admin: 04/05/25 08:30 Dose: Not Given Lorazepam (Lorazepam 1 Mg Tablet) 2 mg PO Q4H PRN PRN Reason: agitation Magnesium Hydroxide (Milk Of Magnesia 30 Ml Oral.Susp) 30 ml PO DAILY PRN PRN Reason: Constipation Methimazole (Methimazole 10 Mg Tablet) 20 mg PO DAILY [facility] Last Admin: 04/05/25 08:30 Dose: Not Given Multivitamins/Vitamin C (Multivitamin Tablet) 1 tab PO DAILY [facility] Last Admin: 04/05/25 08:31 Dose: Not Given Nicotine (Nicotine 21 Mg Patch.Td24) 21 mg TRANSDERMA DAILY PRN PRN Reason: nicotine cravings Nicotine Polacrilex (Nicotine Polacrilex 2 Mg Gum) 4 mg BUCCAL Q1H PRN PRN Reason: Nicotine Cravings Olanzapine (Olanzapine 5 Mg Tablet) 5 mg PO DAILY [facility] Last Admin: 04/05/25 08:31 Dose: Not Given Propranolol HCl (Propranolol Hcl La 60 Mg Cap.Sa.24h) 60 mg PO DAILY [facility]; Protocol Last Admin: 04/05/25 08:31 Dose: Not Given Quetiapine Fumarate (Quetiapine Fumarate 200 Mg Tablet) 200 mg PO BEDTIME PRN PRN Reason: insomnia Allergies Allergies Allergy/AdvReac Type Severity Reaction Status Date / Time No Known Allergies Allergy Verified 03/26/25 14:24 Assessment & Plan Assessment & Plan (1) Schizophrenia: Status: Acute Code(s): F20.9 - Schizophrenia, unspecified Plan 03/26: offer lithium and seroquel for becca. continue methimazole and beta joanne for hyperthyroidism as started at [facility] [place]. trend TFTs. 12b. 03/27: taking methimazole and beta joanne. refused HS meds last night, took morning meds today. continue to encourage medication compliance. 03/28: intermittently taking meds. wants all meds in morning. pressured, manic, paranoid delusions. encouraged to take lithium but states he will not. all meds ordered for morning. 03/29: Keeping to self. no groups. observed laying in bed listening to music on unit headphones. pleasant. Pt reports feeling good today and sleeping well. declined lithium and zyprexa. denies SI/HI/VH/AH. continue current tx plan. 03/30:Irritable. upset he was unable to use his personal hygiene products. Per nursing, pt threatened staff and squeezed tooth paste throughout unit hallway to show his frustration. Pt was able to calm down after speaking with security. declined medications. 5/26: Keeping to self. laying in bed listening to music. refused medications. calm today. Patient reports feeling great ; pt stated, nothing is wrong with me. I'm waiting so I can leave tomorrow. I'm hoping for the best . denies SI/HI/VH/AH. per nursing, slept 6 hours. Continue current tx plan. 04/01: variably calm on the unit versus highly agitated. paranoid delusions, irritability, lability continue. seems to believe MD has met him prior to the present hospitalization and is stalking him. believes brother behind conspiracy to have him psychiatrically hospitalized. has been refusing all medications, including for hyperthyroidism. informed he would be filed on. filed. continue to offer medications. 04/02: continues agitated, belittling, verbally aggressive, refusing all medications including for hyperthyroidism. continue to offer medication. 04/03: paranoid there is a conspiracy to hospitalize him. threatening to stick a stick in staff once he is released by stock handler floorperson. insists his hyperthyroidism was cured at [facility]. asserts there is NOTHING wrong with him. continue to offer medication. 04/04: irritable, rejecting. verbally abuses MD and sends him away: see you on monday [in court]. continue to offer medication for thyroid condition and mental illness. 04/05 suspicious and paranoid, not taking medications. accusatory of peers and staff. Reason for continued inpatient stay Substantial Risk for: harm to others and inability to function Time Spent With Patient Time: Total time managing care of this patient today ____ minutes.
--- NOTE | 2025-04-05 23:19 | PC.NURSE ---
Patient is aware that starting on April 06, 2025 that he is not to have any headphones past 11:00pm.
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
[2025-04-06 20:00] VITALS: BP 148/66; PULSE 100; RESP 18; TEMP 36.9; O2SAT 100
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
--- NOTE | 2025-04-07 10:20 | PM.EVENT ---
Event Note Date of Service: 04/07/25 Event Note: Patient was seen, he declined any physical exam, became increasingly agitated when discussing need for blood work to monitor his hyperthyroidism. Patient has not had blood work since the 27 of March. He has been consistently refusing. He continues to refuse at this time, reports that he will follow up with the doctor as an outpatient. Does not wish to have any further follow up for his hyperthyroidism. I discussed at length the risks of untreated hyperthyroidism, he does not wish to talk to me anymore. Per nursing he intermittently refuses medications. One-to-one at bedside due to threatening behavior towards staff and peers. Time Spent With Patient Time: Total time managing care of this patient today ____ minutes.
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
[2025-04-08 08:09] VITALS: BP 130/74; PULSE 90; RESP 14; O2SAT 100
--- NOTE | 2025-04-08 17:21 | P.PNPSI_ITS ---
Subjective Subjective Date of Service: 04/08/25 Reason For Visit: Major depressive d/o, single episode, unspecified Interim History: sleeping not rousable to voice. seen in court later in day. per staff, flat, withdrawn, isolative. refusing labs. had to call security [place] 2/2 not giving his phone back to staff. slept 4 hours. refused to meet with finance attorney. Mental Status Exam Mental Status Exam Narrative: very tall and thin. adequately dressed and groomed. exopthalmos. superficially cooperative. affect hyper-intense. mood not assessed. no SI/HI/AVH expressed. Diagnostics Vital Signs (24Hr): Vital Signs - 24 hr 04/08/25 08:09 Pulse Rate 90 Respiratory Rate 14 Blood Pressure 130/74 Pulse Oximetry 100 Oxygen Delivery Method Room Air BMI result Body Mass Index 17.1 Labs 03/27/25 09:44 Medications Medications Current Medications Acetaminophen (Acetaminophen 325 Mg Tablet) 650 mg PO Q6H PRN PRN Reason: Headache/Pain, Scale 1-10 Last Admin: 04/01/25 23:20 Dose: 650 mg Al Hydroxide/Mg Hydroxide (Magnesium Hydrox/Alum Hydrox 30 Ml Oral.Susp) 30 ml PO Q6H PRN PRN Reason: Heartburn/Nausea Haloperidol (Haloperidol 5 Mg Tablet) 5 mg PO Q4H PRN PRN Reason: agitation Hydroxyzine HCl (Hydroxyzine Hcl 25 Mg Tablet) 25 mg PO Q6H PRN PRN Reason: mild anxiety Ibuprofen (Ibuprofen 800 Mg Tablet) 800 mg PO Q4H PRN PRN Reason: pain (pain scale 1-10) Last Admin: 04/05/25 21:22 Dose: 800 mg [place] Carbonate ([place] Carbonate Er 300 Mg Tablet.Er) 600 mg PO BID [facility] Last Admin: 04/08/25 10:15 Dose: Not Given Magnesium Hydroxide (Milk Of Magnesia 30 Ml Oral.Susp) 30 ml PO DAILY PRN PRN Reason: Constipation Methimazole (Methimazole 10 Mg Tablet) 20 mg PO DAILY [facility] Last Admin: 04/08/25 10:15 Dose: Not Given Multivitamins/Vitamin C (Multivitamin Tablet) 1 tab PO DAILY [facility] Last Admin: 04/08/25 10:15 Dose: Not Given Nicotine (Nicotine 21 Mg Patch.Td24) 21 mg TRANSDERMA DAILY PRN PRN Reason: nicotine cravings Nicotine Polacrilex (Nicotine Polacrilex 2 Mg Gum) 4 mg BUCCAL Q1H PRN PRN Reason: Nicotine Cravings Olanzapine (Olanzapine 5 Mg Tablet) 5 mg PO DAILY [facility] Last Admin: 04/08/25 10:15 Dose: Not Given Propranolol HCl (Propranolol Hcl La 60 Mg Cap.Sa.24h) 60 mg PO DAILY [facility]; Protocol Last Admin: 04/08/25 10:15 Dose: Not Given Quetiapine Fumarate (Quetiapine Fumarate 200 Mg Tablet) 200 mg PO BEDTIME PRN PRN Reason: insomnia Allergies Allergies Allergy/AdvReac Type Severity Reaction Status Date / Time No Known Allergies Allergy Verified 03/26/25 14:24 Assessment & Plan Assessment & Plan (1) Schizophrenia: Status: Acute Code(s): F20.9 - Schizophrenia, unspecified Plan 03/26: offer lithium and seroquel for becca. continue methimazole and beta joanne for hyperthyroidism as started at [facility] [place]. trend TFTs. 12b. 03/27: taking methimazole and beta joanne. refused HS meds last night, took morning meds today. continue to encourage medication compliance. 03/28: intermittently taking meds. wants all meds in morning. pressured, manic, paranoid delusions. encouraged to take lithium but states he will not. all meds ordered for morning. 03/29: Keeping to self. no groups. observed laying in bed listening to music on unit headphones. pleasant. Pt reports feeling good today and sleeping well. declined lithium and zyprexa. denies SI/HI/VH/AH. continue current tx plan. 03/30:Irritable. upset he was unable to use his personal hygiene products. Per nursing, pt threatened staff and squeezed tooth paste throughout unit hallway to show his frustration. Pt was able to calm down after speaking with security. declined medications. 03/31: Keeping to self. laying in bed listening to music. refused medications. calm today. Patient reports feeling great ; pt stated, nothing is wrong with me. I'm waiting so I can leave tomorrow. I'm hoping for the best . denies SI/HI/VH/AH. per nursing, slept 6 hours. Continue current tx plan. 04/01: variably calm on the unit versus highly agitated. paranoid delusions, irritability, lability continue. seems to believe MD has met him prior to the present hospitalization and is stalking him. believes brother behind conspiracy to have him psychiatrically hospitalized. has been refusing all medications, including for hyperthyroidism. informed he would be filed on. filed. continue to offer medications. 04/02: continues agitated, belittling, verbally aggressive, refusing all medications including for hyperthyroidism. continue to offer medication. 04/03: paranoid there is a conspiracy to hospitalize him. threatening to stick a stick in staff once he is released by district associate judge. insists his hyperthyroidism was cured at [facility]. asserts there is NOTHING wrong with him. continue to offer medication. 04/04: irritable, rejecting. verbally abuses MD and sends him away: see you on monday [in court]. continue to offer medication for thyroid condition and mental illness. 04/05 continue tx. suspicious and guarded, accusatory, verbal threats to hurt staff and peers 04/06 intrusive, posturing towards staff and peer who he thinks is not real and is an impostor, continues to make verbal threats to harm him but thinks that because he is not real he may not experience any pain. 04/07: threatening statements and behaviors of yesterday noted. pt sleeping this morning, dismissive of MD. 04/08: asleep days. committed and meds ordered by court. Reason for continued inpatient stay Substantial Risk for: harm to self, harm to others and inability to function Time Spent With Patient Time: Total time managing care of this patient today __150__ minutes.
[2025-04-08 20:00] VITALS: RESP 16
[2025-04-09 09:09] VITALS: BP 140/72; PULSE 100; RESP 16; TEMP 37.2; O2SAT 100
[2025-04-09] MEDS: OLANZapine ODT 10 MG TAB.RAPDIS TRANSLINGU ×2 (12:56→22:39)
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
[2025-04-09 20:00] VITALS: RESP 16
[2025-04-10 08:00] VITALS: RESP 18
--- NOTE | 2025-04-10 10:32 | P.PNPSI_ITS ---
Subjective Subjective Date of Service: 04/10/25 Reason For Visit: Major depressive d/o, single episode, unspecified Interim History: Pt in bed, awake. Continues on close observation. Interactive when we met briefly. States he does feel tired. Denies feeling overmedicated. Denies pain/discomfort. I just feel like I want to rest . No current questions or concerns verbalized, however, did ask if tw thought he needed hospitalization/medications. When affirmed discussed treatment goal of stabilization and return to his daily routine. OK, thanks was his response. Medication Compliance: Yes Side effects from medications: No Review of Systems Acute medical concerns: No Review of Systems Review of Systems Denies today Mental Status Exam Mental Status Exam Patient Appearance: Fatigued Patient Orientation: Person, Place and Situation Level of Consciousness: Alert Patient Behavior: Guarded, Cooperative, Suspicious and Good Eye Contact Mood Description: Constricted Affect Description: Constricted Patient Cognition Impaired: No Ability to Follow Directions: Fair Speech Pattern: Spontaneous Speech Hallucinations: None (denies) Delusions: Present Thought Process: Distracted Thought Content: positive for [place], positive for Circumstantial and positive for Suicidal Ideation (denies) Depressive Symptoms: Increased Irritability Judgement: Poor Diagnostics Vital Signs (24Hr): Vital Signs - 24 hr 04/09/25 20:00 Respiratory Rate 16 BMI result Body Mass Index 17.1 Labs 03/27/25 09:44 Medications Medications Current Medications Acetaminophen (Acetaminophen 325 Mg Tablet) 650 mg PO Q6H PRN PRN Reason: Headache/Pain, Scale 1-10 Last Admin: 04/01/25 23:20 Dose: 650 mg Al Hydroxide/Mg Hydroxide (Magnesium Hydrox/Alum Hydrox 30 Ml Oral.Susp) 30 ml PO Q6H PRN PRN Reason: Heartburn/Nausea Diazepam (Diazepam 10 Mg/2 Ml Cartridge) 10 mg IM BID PRN PRN Reason: refusal of lithium, mary floyd Haloperidol (Haloperidol 5 Mg Tablet) 5 mg PO Q4H PRN PRN Reason: agitation Hydroxyzine HCl (Hydroxyzine Hcl 25 Mg Tablet) 25 mg PO Q6H PRN PRN Reason: mild anxiety Ibuprofen (Ibuprofen 800 Mg Tablet) 800 mg PO Q4H PRN PRN Reason: pain (pain scale 1-10) Last Admin: 04/09/25 22:38 Dose: 800 mg Miranda Carbonate (Miranda Carbonate Er 300 Mg Tablet.Er) 600 mg PO BID [facility] Last Admin: 04/09/25 22:39 Dose: 600 mg Magnesium Hydroxide (Milk Of Magnesia 30 Ml Oral.Susp) 30 ml PO DAILY PRN PRN Reason: Constipation Methimazole (Methimazole 10 Mg Tablet) 20 mg PO DAILY [facility] Last Admin: 04/09/25 11:50 Dose: 20 mg Multivitamins/Vitamin C (Multivitamin Tablet) 1 tab PO DAILY [facility] Last Admin: 04/09/25 11:50 Dose: 1 tab Nicotine (Nicotine 21 Mg Patch.Td24) 21 mg TRANSDERMA DAILY PRN PRN Reason: nicotine cravings Nicotine Polacrilex (Nicotine Polacrilex 2 Mg Gum) 4 mg BUCCAL Q1H PRN PRN Reason: Nicotine Cravings Olanzapine (Olanzapine Odt 10 Mg Tab.Rapdis) 10 mg TRANSLINGU BID [facility] Last Admin: 04/09/25 22:39 Dose: 10 mg Olanzapine (Olanzapine 10 Mg Vial) 10 mg IM BID PRN PRN Reason: refusal of PO, per maria luz's ord Propranolol HCl (Propranolol Hcl La 60 Mg Cap.Sa.24h) 60 mg PO DAILY [facility]; Protocol Last Admin: 04/09/25 09:27 Dose: Not Given Quetiapine Fumarate (Quetiapine Fumarate 200 Mg Tablet) 200 mg PO BEDTIME PRN PRN Reason: insomnia Allergies Allergies Allergy/AdvReac Type Severity Reaction Status Date / Time No Known Allergies Allergy Verified 03/26/25 14:24 Assessment & Plan Assessment & Plan (1) Schizophrenia: Status: Acute Code(s): F20.9 - Schizophrenia, unspecified Plan 03/26: offer lithium and seroquel for becca. continue methimazole and beta joanne for hyperthyroidism as started at [facility]. trend TFTs. 12b. 03/27: taking methimazole and beta joanne. refused HS meds last night, took morning meds today. continue to encourage medication compliance. 03/28: intermittently taking meds. wants all meds in morning. pressured, manic, paranoid delusions. encouraged to take lithium but states he will not. all meds ordered for morning. 03/29: Keeping to self. no groups. observed laying in bed listening to music on unit headphones. pleasant. Pt reports feeling good today and sleeping well. declined lithium and zyprexa. denies SI/HI/VH/AH. continue current tx plan. 03/30:Irritable. upset he was unable to use his personal hygiene products. Per nursing, pt threatened staff and squeezed tooth paste throughout unit hallway to show his frustration. Pt was able to calm down after speaking with security. declined medications. 03/31: Keeping to self. laying in bed listening to music. refused medications. calm today. Patient reports feeling great ; pt stated, nothing is wrong with me. I'm waiting so I can leave tomorrow. I'm hoping for the best . denies SI/HI/VH/AH. per nursing, slept 6 hours. Continue current tx plan. 04/01: variably calm on the unit versus highly agitated. paranoid delusions, irritability, lability continue. seems to believe MD has met him prior to the present hospitalization and is stalking him. believes brother behind conspiracy to have him psychiatrically hospitalized. has been refusing all medications, including for hyperthyroidism. informed he would be filed on. filed. continue to offer medications. 04/02: continues agitated, belittling, verbally aggressive, refusing all medications including for hyperthyroidism. continue to offer medication. 04/03: paranoid there is a conspiracy to hospitalize him. threatening to stick a stick in staff once he is released by justice court judge. insists his hyperthyroidism was cured at [facility]. asserts there is NOTHING wrong with him. continue to offer medication. 04/04: irritable, rejecting. verbally abuses MD and sends him away: see you on monday [in court]. continue to offer medication for thyroid condition and mental illness. 04/05 continue tx. suspicious and guarded, accusatory, verbal threats to hurt staff and peers 04/06 intrusive, posturing towards staff and peer who he thinks is not real and is an impostor, continues to make verbal threats to harm him but thinks that because he is not real he may not experience any pain. 04/07: threatening statements and behaviors of yesterday noted. pt sleeping this morning, dismissive of MD. 04/08: asleep days. committed and meds ordered by court. 04/09: on being informed of court order and MD insisting on meds, pt escalated to hurling food item in container against wall at high speed and saying he wished he could do the same to MD's head. pt eventually took court ordered meds PO. sensodyne and excedrin not available in pharmacy (pt requesting them). 04/10: continue tx. Pt accepting medication today. Reason for continued inpatient stay Substantial Risk for: harm to self, harm to others, inability to function and rapid decompensation Time Spent With Patient Time: Total time managing care of this patient today ____ minutes.
[2025-04-10] MEDS: OLANZapine ODT 10 MG TAB.RAPDIS TRANSLINGU ×2 (11:01→23:09)
[2025-04-10 19:58] VITALS: RESP 18
[2025-04-11 08:00] VITALS: RESP 18
[2025-04-11] MEDS: diazePAM 10 MG/2 ML CARTRIDGE IM (09:56)
[2025-04-11] MEDS: OLANZapine 10 MG VIAL IM (09:56)
--- NOTE | 2025-04-11 10:06 | PC.NURSE ---
[place] continues with boundary pushing and difficulty with limit setting. Offered PO medications at 0945, he refused and became agitated they let me wait until 11 yesterday. I asked to wait. Educated that medications are due. Continued to escalate fuck you and your meds. I don't want to talk to you. I am not taking meds from you. Security called. [facility] IM medications given. Rosalie Morales NP made aware.
--- NOTE | 2025-04-11 10:31 | P.PNPSI_ITS ---
Subjective Subjective Date of Service: 04/11/25 Reason For Visit: Major depressive d/o, single episode, unspecified Subjective Notes: Section 8 Interim History: Keeping to self. Laying in bed most of morning. Declined to meet with T/W. Pt stated, I'm fine. I don't need anything . Listening to headphones in room. Declined court ordered PO medications; received IM medications. Refused vital signs.continue tx plan. Medication Compliance: Intermittent Attending Groups: No Mental Status Exam Mental Status Exam Narrative: unable to assess full mental status d/t pt declining to meet with T/W. Patient Appearance: Appropriate Level of Consciousness: Drowsy Patient Behavior: Guarded Mood Description: Calm Speech Pattern: Clear Diagnostics Vital Signs (24Hr): Vital Signs - 24 hr 04/10/25 19:58 04/11/25 08:00 Respiratory Rate 18 18 BMI result Body Mass Index 17.1 Labs 03/27/25 09:44 Medications Medications Current Medications Acetaminophen (Acetaminophen 325 Mg Tablet) 650 mg PO Q6H PRN PRN Reason: Headache/Pain, Scale 1-10 Last Admin: 04/01/25 23:20 Dose: 650 mg Al Hydroxide/Mg Hydroxide (Magnesium Hydrox/Alum Hydrox 30 Ml Oral.Susp) 30 ml PO Q6H PRN PRN Reason: Heartburn/Nausea Diazepam (Diazepam 10 Mg/2 Ml Cartridge) 10 mg IM BID PRN PRN Reason: refusal of lithium, mary floyd Last Admin: 04/11/25 09:56 Dose: 10 mg Haloperidol (Haloperidol 5 Mg Tablet) 5 mg PO Q4H PRN PRN Reason: agitation Hydroxyzine HCl (Hydroxyzine Hcl 25 Mg Tablet) 25 mg PO Q6H PRN PRN Reason: mild anxiety Ibuprofen (Ibuprofen 800 Mg Tablet) 800 mg PO Q4H PRN PRN Reason: pain (pain scale 1-10) Last Admin: 04/09/25 22:38 Dose: 800 mg [place] Carbonate ([place] Carbonate Er 300 Mg Tablet.Er) 600 mg PO BID [facility] Last Admin: 04/11/25 10:02 Dose: Not Given Magnesium Hydroxide (Milk Of Magnesia 30 Ml Oral.Susp) 30 ml PO DAILY PRN PRN Reason: Constipation Methimazole (Methimazole 10 Mg Tablet) 20 mg PO DAILY [facility] Last Admin: 04/11/25 10:02 Dose: Not Given Multivitamins/Vitamin C (Multivitamin Tablet) 1 tab PO DAILY [facility] Last Admin: 04/11/25 10:02 Dose: Not Given Nicotine (Nicotine 21 Mg Patch.Td24) 21 mg TRANSDERMA DAILY PRN PRN Reason: nicotine cravings Nicotine Polacrilex (Nicotine Polacrilex 2 Mg Gum) 4 mg BUCCAL Q1H PRN PRN Reason: Nicotine Cravings Olanzapine (Olanzapine Odt 10 Mg Tab.Rapdis) 10 mg TRANSLINGU BID [facility] Last Admin: 04/11/25 10:02 Dose: Not Given Olanzapine (Olanzapine 10 Mg Vial) 10 mg IM BID PRN PRN Reason: refusal of PO, per maria luz's ord Last Admin: 04/11/25 09:56 Dose: 10 mg Propranolol HCl (Propranolol Hcl La 60 Mg Cap.Sa.24h) 60 mg PO DAILY [facility]; Protocol Last Admin: 04/11/25 10:02 Dose: Not Given Quetiapine Fumarate (Quetiapine Fumarate 200 Mg Tablet) 200 mg PO BEDTIME PRN PRN Reason: insomnia Allergies Allergies Allergy/AdvReac Type Severity Reaction Status Date / Time No Known Allergies Allergy Verified 03/26/25 14:24 Assessment & Plan Assessment & Plan (1) Schizophrenia: Status: Acute Code(s): F20.9 - Schizophrenia, unspecified Plan 03/26: offer lithium and seroquel for becca. continue methimazole and beta joanne for hyperthyroidism as started at [facility]. trend TFTs. 12b. 03/27: taking methimazole and beta joanne. refused HS meds last night, took morning meds today. continue to encourage medication compliance. 03/28: intermittently taking meds. wants all meds in morning. pressured, manic, paranoid delusions. encouraged to take lithium but states he will not. all meds ordered for morning. 03/29: Keeping to self. no groups. observed laying in bed listening to music on unit headphones. pleasant. Pt reports feeling good today and sleeping well. declined lithium and zyprexa. denies SI/HI/VH/AH. continue current tx plan. 03/30:Irritable. upset he was unable to use his personal hygiene products. Per nursing, pt threatened staff and squeezed tooth paste throughout unit hallway to show his frustration. Pt was able to calm down after speaking with security. declined medications. 03/31: Keeping to self. laying in bed listening to music. refused medications. calm today. Patient reports feeling great ; pt stated, nothing is wrong with me. I'm waiting so I can leave tomorrow. I'm hoping for the best . denies SI/HI/VH/AH. per nursing, slept 6 hours. Continue current tx plan. 04/01: variably calm on the unit versus highly agitated. paranoid delusions, irritability, lability continue. seems to believe MD has met him prior to the present hospitalization and is stalking him. believes brother behind conspiracy to have him psychiatrically hospitalized. has been refusing all medications, including for hyperthyroidism. informed he would be filed on. filed. continue to offer medications. 04/02: continues agitated, belittling, verbally aggressive, refusing all medications including for hyperthyroidism. continue to offer medication. 04/03: paranoid there is a conspiracy to hospitalize him. threatening to stick a stick in staff once he is released by forming process line worker. insists his hyperthyroidism was cured at [facility]. asserts there is NOTHING wrong with him. continue to offer medication. 04/04: irritable, rejecting. verbally abuses MD and sends him away: see you on monday [in court]. continue to offer medication for thyroid condition and mental illness. 04/05 continue tx. suspicious and guarded, accusatory, verbal threats to hurt staff and peers 04/06 intrusive, posturing towards staff and peer who he thinks is not real and is an impostor, continues to make verbal threats to harm him but thinks that because he is not real he may not experience any pain. 04/07: threatening statements and behaviors of yesterday noted. pt sleeping this morning, dismissive of MD. 04/08: asleep days. committed and meds ordered by court. 04/09: on being informed of court order and MD insisting on meds, pt escalated to hurling food item in container against wall at high speed and saying he wished he could do the same to MD's head. pt eventually took court ordered meds PO. sensodyne and excedrin not available in pharmacy (pt requesting them). 04/10: continue tx. Pt accepting medication today. 04/11: Keeping to self. Laying in bed most of morning. Declined to meet with T/W. Pt stated, I'm fine. I don't need anything . Listening to headphones in room. Declined court ordered PO medications; received IM medications. Refused vital signs.continue tx plan. Patient educated on: medication risk/benefits Reason for continued inpatient stay Substantial Risk for: med/psych decompensation Time Spent With Patient Time: Total time managing care of this patient today _15___ minutes.
[2025-04-11 20:04] VITALS: BP 150/72; PULSE 108; RESP 16; TEMP 36.8; O2SAT 98
[2025-04-11] MEDS: OLANZapine ODT 10 MG TAB.RAPDIS TRANSLINGU (21:31)
[2025-04-12 09:59] VITALS: PULSE 100
[2025-04-12] MEDS: Propranolol HCL LA 60 MG CAP.SA.24H PO (09:59)
[2025-04-12] MEDS: OLANZapine ODT 10 MG TAB.RAPDIS TRANSLINGU ×2 (09:59→22:06)
--- NOTE | 2025-04-12 17:04 | HO.PSYCHPN ---
Subjective Subjective Date of Service: 04/12/25 Reason For Visit: Major depressive d/o, single episode, unspecified Interim History: sleeping much of the day. states he has no questions or concerns for MD. per staff, c/o MILLS, asking for excedrin. refused PO meds yesterday and received IM instead. slept less than 4 hours overnight. Mental Status Exam Mental Status Exam Patient Appearance: Appropriate Level of Consciousness: Drowsy Patient Behavior: Guarded Mood Description: Calm Speech Pattern: Clear Diagnostics Vital Signs (24Hr): Vital Signs - 24 hr 04/11/25 20:04 04/12/25 09:59 Temperature 98.2 F Pulse Rate 108 H 100 Respiratory Rate 16 Blood Pressure 150/72 H Pulse Oximetry 98 Oxygen Delivery Method Room Air BMI result Body Mass Index 17.1 Labs 03/27/25 09:44 Medications Medications Current Medications Acetaminophen (Acetaminophen 325 Mg Tablet) 650 mg PO Q6H PRN PRN Reason: Headache/Pain, Scale 1-10 Last Admin: 04/01/25 23:20 Dose: 650 mg Al Hydroxide/Mg Hydroxide (Magnesium Hydrox/Alum Hydrox 30 Ml Oral.Susp) 30 ml PO Q6H PRN PRN Reason: Heartburn/Nausea Diazepam (Diazepam 10 Mg/2 Ml Cartridge) 10 mg IM BID PRN PRN Reason: refusal of lithium, per everett Last Admin: 04/11/25 09:56 Dose: 10 mg Haloperidol (Haloperidol 5 Mg Tablet) 5 mg PO Q4H PRN PRN Reason: agitation Hydroxyzine HCl (Hydroxyzine Hcl 25 Mg Tablet) 25 mg PO Q6H PRN PRN Reason: mild anxiety Ibuprofen (Ibuprofen 800 Mg Tablet) 800 mg PO Q4H PRN PRN Reason: pain (pain scale 1-10) Last Admin: 04/09/25 22:38 Dose: 800 mg [place] Carbonate ([place] Carbonate Er 300 Mg Tablet.Er) 600 mg PO BID [facility] Last Admin: 04/12/25 10:00 Dose: 600 mg Magnesium Hydroxide (Milk Of Magnesia 30 Ml Oral.Susp) 30 ml PO DAILY PRN PRN Reason: Constipation Methimazole (Methimazole 10 Mg Tablet) 20 mg PO DAILY [facility] Last Admin: 04/12/25 09:59 Dose: 20 mg Multivitamins/Vitamin C (Multivitamin Tablet) 1 tab PO DAILY [facility] Last Admin: 04/12/25 10:00 Dose: Not Given Nicotine (Nicotine 21 Mg Patch.Td24) 21 mg TRANSDERMA DAILY PRN PRN Reason: nicotine cravings Nicotine Polacrilex (Nicotine Polacrilex 2 Mg Gum) 4 mg BUCCAL Q1H PRN PRN Reason: Nicotine Cravings Pt Own (Excedrin 250 (/250/65mg)) 2 each PO DAILY PRN PRN Reason: Migraine Headache Olanzapine (Olanzapine Odt 10 Mg Tab.Rapdis) 10 mg TRANSLINGU BID [facility] Last Admin: 04/12/25 09:59 Dose: 10 mg Olanzapine (Olanzapine 10 Mg Vial) 10 mg IM BID PRN PRN Reason: refusal of PO, per maria luz's ord Last Admin: 04/11/25 09:56 Dose: 10 mg Propranolol HCl (Propranolol Hcl La 60 Mg Cap.Sa.24h) 60 mg PO DAILY [facility]; Protocol Last Admin: 04/12/25 09:59 Dose: 60 mg Quetiapine Fumarate (Quetiapine Fumarate 200 Mg Tablet) 200 mg PO BEDTIME PRN PRN Reason: insomnia Allergies Allergies Allergy/AdvReac Type Severity Reaction Status Date / Time No Known Allergies Allergy Verified 03/26/25 14:24 Assessment & Plan Assessment & Plan (1) Schizophrenia: Status: Acute Code(s): F20.9 - Schizophrenia, unspecified Plan 03/26: offer lithium and seroquel for becca. continue methimazole and beta joanne for [place]thy[place] as [place] [facility] trend TFTs. 12b. 03/27: taking methimazole and beta joanne. refused HS meds last night, took morning meds today. continue to encourage medication compliance. 03/28: intermittently taking meds. wants all meds in morning. pressured, manic, paranoid delusions. encouraged to take lithium but states he will not. all meds ordered for morning. 03/29: Keeping to self. no groups. observed laying in bed listening to music on unit headphones. pleasant. Pt reports feeling good today and sleeping well. declined lithium and zyprexa. denies SI/HI/VH/AH. continue current tx plan. 03/30:Irritable. upset he was unable to use his personal hygiene products. Per nursing, pt threatened staff and squeezed tooth paste throughout unit hallway to show his frustration. Pt was able to calm down after speaking with security. declined medications. 03/31: Keeping to self. laying in bed listening to music. refused medications. calm today. Patient reports feeling great ; pt stated, nothing is wrong with me. I'm waiting so I can leave tomorrow. I'm hoping for the best . denies SI/HI/VH/AH. per nursing, slept 6 hours. Continue current tx plan. 04/01: variably calm on the unit versus highly agitated. paranoid delusions, irritability, lability continue. seems to believe MD has met him prior to the present hospitalization and is stalking him. believes brother behind conspiracy to have him psychiatrically hospitalized. has been refusing all medications, including for hyperthyroidism. informed he would be filed on. filed. continue to offer medications. 04/02: continues agitated, belittling, verbally aggressive, refusing all medications including for hyperthyroidism. continue to offer medication. 04/03: paranoid there is a conspiracy to hospitalize him. threatening to stick a stick in staff once he is released by high school english teacher. insists his hyperthyroidism was cured at [facility]. asserts there is NOTHING wrong with him. continue to offer medication. 04/04: irritable, rejecting. verbally abuses MD and sends him away: see you on monday [in court]. continue to offer medication for thyroid condition and mental illness. 04/05 continue tx. suspicious and guarded, accusatory, verbal threats to hurt staff and peers 04/06 intrusive, posturing towards staff and peer who he thinks is not real and is an impostor, continues to make verbal threats to harm him but thinks that because he is not real he may not experience any pain. 04/07: threatening statements and behaviors of yesterday noted. pt sleeping this morning, dismissive of MD. 04/08: asleep days. committed and meds ordered by court. 04/09: on being informed of court order and MD insisting on meds, pt escalated to hurling food item in container against wall at high speed and saying he wished he could do the same to MD's head. pt eventually took court ordered meds PO. sensodyne and excedrin not available in pharmacy (pt requesting them). 04/10: continue tx. Pt accepting medication today. 04/11: Keeping to self. Lying in bed most of morning. Declined to meet with T/W. Pt stated, I'm fine. I don't need anything . Listening to headphones in room. Declined court ordered PO medications; received IM medications. Refused vital signs.continue tx plan. 04/12: got IMs yesterday, took PO this morning. sleepy, no concerns or complaints. Reason for continued inpatient stay Substantial Risk for: harm to self, harm to others and inability to function Time Spent With Patient Time: Total time managing care of this patient today ____ minutes.
[2025-04-12] MEDS: Nicotine 21 MG PATCH.TD24 TRANSDERMA (17:06)
[2025-04-12 20:00] VITALS: RESP 18
[2025-04-13 08:00] VITALS: BP 160/65; PULSE 17; RESP 17; TEMP 35.9; O2SAT 98
[2025-04-13] MEDS: OLANZapine ODT 10 MG TAB.RAPDIS TRANSLINGU ×2 (08:44→22:14)
--- NOTE | 2025-04-13 16:07 | P.PNPSI_ITS ---
Subjective Subjective Date of Service: 04/13/25 Reason For Visit: Major depressive d/o, single episode, unspecified Interim History: declines interview, says he wants to sleep. per staff, expansive. used phone without issue. took HS meds PO. refusing VS. avoiding taking meds but does take them when pressed. slept 7 hours. Mental Status Exam Mental Status Exam Patient Appearance: Appropriate Level of Consciousness: Drowsy Patient Behavior: Guarded Mood Description: Calm Speech Pattern: Clear Diagnostics Vital Signs (24Hr): Vital Signs - 24 hr 04/12/25 20:00 04/13/25 08:00 Temperature 96.7 F L Pulse Rate 17 L Respiratory Rate 18 17 Blood Pressure 160/65 H Pulse Oximetry 98 BMI result Body Mass Index 17.1 Labs 03/27/25 09:44 Medications Medications Current Medications Acetaminophen (Acetaminophen 325 Mg Tablet) 650 mg PO Q6H PRN PRN Reason: Headache/Pain, Scale 1-10 Last Admin: 04/01/25 23:20 Dose: 650 mg Al Hydroxide/Mg Hydroxide (Magnesium Hydrox/Alum Hydrox 30 Ml Oral.Susp) 30 ml PO Q6H PRN PRN Reason: Heartburn/Nausea Diazepam (Diazepam 10 Mg/2 Ml Cartridge) 10 mg IM BID PRN PRN Reason: refusal of lithium, per everett Last Admin: 04/11/25 09:56 Dose: 10 mg Haloperidol (Haloperidol 5 Mg Tablet) 5 mg PO Q4H PRN PRN Reason: agitation Hydroxyzine HCl (Hydroxyzine Hcl 25 Mg Tablet) 25 mg PO Q6H PRN PRN Reason: mild anxiety Ibuprofen (Ibuprofen 800 Mg Tablet) 800 mg PO Q4H PRN PRN Reason: pain (pain scale 1-10) Last Admin: 04/09/25 22:38 Dose: 800 mg [place] Carbonate ([place] Carbonate Er 300 Mg Tablet.Er) 600 mg PO BID [facility] Last Admin: 04/13/25 08:43 Dose: 600 mg Magnesium Hydroxide (Milk Of Magnesia 30 Ml Oral.Susp) 30 ml PO DAILY PRN PRN Reason: Constipation Methimazole (Methimazole 10 Mg Tablet) 20 mg PO DAILY [facility] Last Admin: 04/13/25 08:44 Dose: 20 mg Multivitamins/Vitamin C (Multivitamin Tablet) 1 tab PO DAILY [facility] Last Admin: 04/13/25 08:44 Dose: Not Given Nicotine (Nicotine 21 Mg Patch.Td24) 21 mg TRANSDERMA DAILY PRN PRN Reason: nicotine cravings Last Admin: 04/12/25 17:06 Dose: 21 mg Nicotine Polacrilex (Nicotine Polacrilex 2 Mg Gum) 4 mg BUCCAL Q1H PRN PRN Reason: Nicotine Cravings Pt Own (Excedrin 250 (/250/65mg)) 2 each PO DAILY PRN PRN Reason: Migraine Headache Olanzapine (Olanzapine Odt 10 Mg Tab.Rapdis) 10 mg TRANSLINGU BID [facility] Last Admin: 04/13/25 08:44 Dose: 10 mg Olanzapine (Olanzapine 10 Mg Vial) 10 mg IM BID PRN PRN Reason: refusal of PO, per maria luz's ord Last Admin: 04/11/25 09:56 Dose: 10 mg Propranolol HCl (Propranolol Hcl La 60 Mg Cap.Sa.24h) 60 mg PO DAILY [facility]; Protocol Last Admin: 04/13/25 08:55 Dose: Not Given Quetiapine Fumarate (Quetiapine Fumarate 200 Mg Tablet) 200 mg PO BEDTIME PRN PRN Reason: insomnia Allergies Allergies Allergy/AdvReac Type Severity Reaction Status Date / Time No Known Allergies Allergy Verified 03/26/25 14:24 Assessment & Plan Assessment & Plan (1) Schizophrenia: Status: Acute Code(s): F20.9 - Schizophrenia, unspecified Plan 03/26: offer lithium and seroquel for becca. continue methimazole and beta joanne for hyperthyroidism as started at [facility] [place]. trend TFTs. 12b. 03/27: taking methimazole and beta joanne. refused HS meds last night, took morning meds today. continue to encourage medication compliance. 03/28: intermittently taking meds. wants all meds in morning. pressured, manic, paranoid delusions. encouraged to take lithium but states he will not. all meds ordered for morning. 03/29: Keeping to self. no groups. observed laying in bed listening to music on unit headphones. pleasant. Pt reports feeling good today and sleeping well. declined lithium and zyprexa. denies SI/HI/VH/AH. continue current tx plan. 03/30:Irritable. upset he was unable to use his personal hygiene products. Per nursing, pt threatened staff and squeezed tooth paste throughout unit hallway to show his frustration. Pt was able to calm down after speaking with security. declined medications. 03/31: Keeping to self. laying in bed listening to music. refused medications. calm today. Patient reports feeling great ; pt stated, nothing is wrong with me. I'm waiting so I can leave tomorrow. I'm hoping for the best . denies SI/HI/VH/AH. per nursing, slept 6 hours. Continue current tx plan. 04/01: variably calm on the unit versus highly agitated. paranoid delusions, irritability, lability continue. seems to believe MD has met him prior to the present hospitalization and is stalking him. believes brother behind conspiracy to have him psychiatrically hospitalized. has been refusing all medications, including for hyperthyroidism. informed he would be filed on. filed. continue to offer medications. 04/02: continues agitated, belittling, verbally aggressive, refusing all medications including for hyperthyroidism. continue to offer medication. 04/03: paranoid there is a conspiracy to hospitalize him. threatening to stick a stick in staff once he is released by [employer]. insists his hyperthyroidism was cured at [facility]. asserts there is NOTHING wrong with him. continue to offer medication. 04/04: irritable, rejecting. verbally abuses MD and sends him away: see you on monday [in court]. continue to offer medication for thyroid condition and mental illness. 04/05 continue tx. suspicious and guarded, accusatory, verbal threats to hurt staff and peers 04/06 intrusive, posturing towards staff and peer who he thinks is not real and is an impostor, continues to make verbal threats to harm him but thinks that because he is not real he may not experience any pain. 04/07: threatening statements and behaviors of yesterday noted. pt sleeping this morning, dismissive of MD. 04/08: asleep days. committed and meds ordered by court. 04/09: on being informed of court order and MD insisting on meds, pt escalated to hurling food item in container against wall at high speed and saying he wished he could do the same to MD's head. pt eventually took court ordered meds PO. sensodyne and excedrin not available in pharmacy (pt requesting them). 04/10: continue tx. Pt accepting medication today. 04/11: Keeping to self. Lying in bed most of morning. Declined to meet with T/W. Pt stated, I'm fine. I don't need anything . Listening to headphones in room. Declined court ordered PO medications; received IM medications. Refused vital signs.continue tx plan. 04/12: got IMs yesterday, took PO this morning. sleepy, no concerns or complaints. 04/13: taking PO meds again. slept 7 hours. sleepy again mid morning refusing interview. continue current mgmt. Reason for continued inpatient stay Substantial Risk for: harm to self, harm to others, inability to function and med/psych decompensation Time Spent With Patient Time: Total time managing care of this patient today ____ minutes.
[2025-04-13 18:18] VITALS: BP 154/71; PULSE 97; RESP 16; TEMP 37.2; O2SAT 100
[2025-04-13 20:00] VITALS: BP 134/66; PULSE 105; RESP 16; TEMP 37.9; O2SAT 100
[2025-04-14] MEDS: OLANZapine ODT 10 MG TAB.RAPDIS TRANSLINGU ×2 (09:02→23:09)
--- NOTE | 2025-04-14 10:42 | MHC.CLN ---
F/U PATIENT CONTINUES WITH ENSURE TID. NURSING HAS SUPPLY OF SUPPLEMENT AND PATIENT AWARE THAT CAN ASK FOR ADDITIONAL ENSURE WITH MEAL.
--- NOTE | 2025-04-14 11:49 | P.PNPSI_ITS ---
Subjective Subjective Date of Service: 04/14/25 Reason For Visit: Major depressive d/o, single episode, unspecified Interim History: in bed, rousable. states he doesn't feel sedated, just bored. no requests or complaints. per staff, denies dep/anx. broad affect. taking meds. using phone safely. slept 7 hours. Mental Status Exam Mental Status Exam Patient Appearance: Appropriate Level of Consciousness: Drowsy Patient Behavior: Guarded Mood Description: Calm Speech Pattern: Clear Diagnostics Vital Signs (24Hr): Vital Signs - 24 hr 04/13/25 18:18 04/13/25 20:00 Temperature 99.0 F 100.2 F Pulse Rate 97 105 H Respiratory Rate 16 16 Blood Pressure 154/71 H 134/66 Pulse Oximetry 100 100 Oxygen Delivery Method Room Air Room Air BMI result Body Mass Index 17.1 Labs 03/27/25 09:44 Medications Medications Current Medications Acetaminophen (Acetaminophen 325 Mg Tablet) 650 mg PO Q6H PRN PRN Reason: Headache/Pain, Scale 1-10 Last Admin: 04/01/25 23:20 Dose: 650 mg Al Hydroxide/Mg Hydroxide (Magnesium Hydrox/Alum Hydrox 30 Ml Oral.Susp) 30 ml PO Q6H PRN PRN Reason: Heartburn/Nausea Diazepam (Diazepam 10 Mg/2 Ml Cartridge) 10 mg IM BID PRN PRN Reason: refusal of lithium, per everett Last Admin: 04/11/25 09:56 Dose: 10 mg Haloperidol (Haloperidol 5 Mg Tablet) 5 mg PO Q4H PRN PRN Reason: agitation Hydroxyzine HCl (Hydroxyzine Hcl 25 Mg Tablet) 25 mg PO Q6H PRN PRN Reason: mild anxiety Ibuprofen (Ibuprofen 800 Mg Tablet) 800 mg PO Q4H PRN PRN Reason: pain (pain scale 1-10) Last Admin: 04/09/25 22:38 Dose: 800 mg [place] Carbonate ([place] Carbonate Er 300 Mg Tablet.Er) 600 mg PO BID [facility] Last Admin: 04/14/25 09:01 Dose: 600 mg Magnesium Hydroxide (Milk Of Magnesia 30 Ml Oral.Susp) 30 ml PO DAILY PRN PRN Reason: Constipation Methimazole (Methimazole 10 Mg Tablet) 20 mg PO DAILY [facility] Last Admin: 04/14/25 09:01 Dose: 20 mg Multivitamins/Vitamin C (Multivitamin Tablet) 1 tab PO DAILY [facility] Last Admin: 04/14/25 09:04 Dose: Not Given Nicotine (Nicotine 21 Mg Patch.Td24) 21 mg TRANSDERMA DAILY PRN PRN Reason: nicotine cravings Last Admin: 04/12/25 17:06 Dose: 21 mg Nicotine Polacrilex (Nicotine Polacrilex 2 Mg Gum) 4 mg BUCCAL Q1H PRN PRN Reason: Nicotine Cravings Pt Own (Excedrin 250 (/250/65mg)) 2 each PO DAILY PRN PRN Reason: Migraine Headache Olanzapine (Olanzapine Odt 10 Mg Tab.Rapdis) 10 mg TRANSLINGU BID [facility] Last Admin: 04/14/25 09:02 Dose: 10 mg Olanzapine (Olanzapine 10 Mg Vial) 10 mg IM BID PRN PRN Reason: refusal of PO, per maria luz's ord Last Admin: 04/11/25 09:56 Dose: 10 mg Propranolol HCl (Propranolol Hcl La 60 Mg Cap.Sa.24h) 60 mg PO DAILY [facility]; Protocol Last Admin: 04/14/25 09:04 Dose: Not Given Quetiapine Fumarate (Quetiapine Fumarate 200 Mg Tablet) 200 mg PO BEDTIME PRN PRN Reason: insomnia Allergies Allergies Allergy/AdvReac Type Severity Reaction Status Date / Time No Known Allergies Allergy Verified 03/26/25 14:24 Assessment & Plan Assessment & Plan (1) Schizophrenia: Status: Acute Code(s): F20.9 - Schizophrenia, unspecified Plan 03/26: offer lithium and seroquel for becca. continue methimazole and beta joanne for [place] as [place] [facility] trend TFTs. 12b. 03/27: taking methimazole and beta joanne. refused HS meds last night, took morning meds today. continue to encourage medication compliance. 03/28: intermittently taking meds. wants all meds in morning. pressured, manic, paranoid delusions. encouraged to take lithium but states he will not. all meds ordered for morning. 03/29: Keeping to self. no groups. observed laying in bed listening to music on unit headphones. pleasant. Pt reports feeling good today and sleeping well. declined lithium and zyprexa. denies SI/HI/VH/AH. continue current tx plan. 03/30:Irritable. upset he was unable to use his personal hygiene products. Per nursing, pt threatened staff and squeezed tooth paste throughout unit hallway to show his frustration. Pt was able to calm down after speaking with security. declined medications. 03/31: Keeping to self. laying in bed listening to music. refused medications. calm today. Patient reports feeling great ; pt stated, nothing is wrong with me. I'm waiting so I can leave tomorrow. I'm hoping for the best . denies SI/HI/VH/AH. per nursing, slept 6 hours. Continue current tx plan. 04/01: variably calm on the unit versus highly agitated. paranoid delusions, irritability, lability continue. seems to believe MD has met him prior to the present hospitalization and is stalking him. believes brother behind conspiracy to have him psychiatrically hospitalized. has been refusing all medications, including for hyperthyroidism. informed he would be filed on. filed. continue to offer medications. 04/02: continues agitated, belittling, verbally aggressive, refusing all medications including for hyperthyroidism. continue to offer medication. 04/03: paranoid there is a conspiracy to hospitalize him. threatening to stick a stick in staff once he is released by general practitioner. insists his hyperthyroidism was cured at [facility]. asserts there is NOTHING wrong with him. continue to offer medication. 04/04: irritable, rejecting. verbally abuses MD and sends him away: see you on monday [in court]. continue to offer medication for thyroid condition and mental illness. 04/05 continue tx. suspicious and guarded, accusatory, verbal threats to hurt staff and peers 04/06 intrusive, posturing towards staff and peer who he thinks is not real and is an impostor, continues to make verbal threats to harm him but thinks that because he is not real he may not experience any pain. 04/07: threatening statements and behaviors of yesterday noted. pt sleeping this morning, dismissive of MD. 04/08: asleep days. committed and meds ordered by court. 04/09: on being informed of court order and MD insisting on meds, pt escalated to hurling food item in container against wall at high speed and saying he wished he could do the same to MD's head. pt eventually took court ordered meds PO. sensodyne and excedrin not available in pharmacy (pt requesting them). 04/10: continue tx. Pt accepting medication today. 04/11: Keeping to self. Lying in bed most of morning. Declined to meet with T/W. Pt stated, I'm fine. I don't need anything . Listening to headphones in room. Declined court ordered PO medications; received IM medications. Refused vital signs.continue tx plan. 04/12: got IMs yesterday, took PO this morning. sleepy, no concerns or complaints. 04/13: taking PO meds again. slept 7 hours. sleepy again mid morning refusing interview. continue current mgmt. 04/14: sleeping, rousable. denies being sedated or tired, says he's just bored. no questions or complaints. informed of need to check labs. check lithium level and thyroid labs tonight. Reason for continued inpatient stay Substantial Risk for: harm to self, harm to others, inability to function and med/psych decompensation Time Spent With Patient Time: Total time managing care of this patient today __25__ minutes.
[2025-04-14 21:30] VITALS: BP 156/74; PULSE 114; TEMP 36.9; O2SAT 100
[2025-04-15 08:00] VITALS: BP 140/72; PULSE 108; RESP 16
[2025-04-15] MEDS: OLANZapine ODT 10 MG TAB.RAPDIS TRANSLINGU ×2 (09:29→21:49)
[2025-04-15 09:33] VITALS: BP 140/72; PULSE 108
[2025-04-15] MEDS: Propranolol HCL LA 60 MG CAP.SA.24H PO (09:33)
--- NOTE | 2025-04-15 11:18 | HO.PSYCHPN ---
Subjective Subjective Date of Service: 04/15/25 Reason For Visit: Major depressive d/o, single episode, unspecified Interim History: initially calm and coopertive, not antagonistic, but as conversation progressed became increasingly contrary and verbally abusive. calling carito Farris on the floor of interview room in a way making it clear it was a gesture of contempt and disgust directed at MD. feeling his proptosis is improving, asking for more anti-thyroid medication. MD counsels otherwise. upset at MD's explanation for why he is being held in the hospital. acknowledges prior hospitalization at [facility]. per staff, on Q5s. denies anx/dep. broad affect. taking meds. using phone, but also internet. explosive when confronted and told not to do that. slept 6 hours. refused labs. Mental Status Exam Mental Status Exam Narrative: very tall and thin. adequately dressed and groomed. exopthalmos. superficially cooperative, then gradually more escalated and ultimately verbally abusive and aggressive. affect hyper-intense, labile. mood not assessed. no no SI/AVH expressed. expressing contempt for MD. Diagnostics Vital Signs (24Hr): Vital Signs - 24 hr 04/14/25 21:30 04/15/25 08:00 04/15/25 09:33 Temperature 98.5 F Pulse Rate 114 H 108 H 108 H Respiratory Rate 16 Blood Pressure 156/74 H 140/72 H 140/72 H Pulse Oximetry 100 Oxygen Delivery Method Room Air BMI result Body Mass Index 17.1 Labs 03/27/25 09:44 Medications Medications Current Medications Acetaminophen (Acetaminophen 325 Mg Tablet) 650 mg PO Q6H PRN PRN Reason: Headache/Pain, Scale 1-10 Last Admin: 04/01/25 23:20 Dose: 650 mg Al Hydroxide/Mg Hydroxide (Magnesium Hydrox/Alum Hydrox 30 Ml Oral.Susp) 30 ml PO Q6H PRN PRN Reason: Heartburn/Nausea Diazepam (Diazepam 10 Mg/2 Ml Cartridge) 10 mg IM BID PRN PRN Reason: refusal of lithium, mary floyd Last Admin: 04/11/25 09:56 Dose: 10 mg Haloperidol (Haloperidol 5 Mg Tablet) 5 mg PO Q4H PRN PRN Reason: agitation Hydroxyzine HCl (Hydroxyzine Hcl 25 Mg Tablet) 25 mg PO Q6H PRN PRN Reason: mild anxiety Ibuprofen (Ibuprofen 800 Mg Tablet) 800 mg PO Q4H PRN PRN Reason: pain (pain scale 1-10) Last Admin: 04/09/25 22:38 Dose: 800 mg [place] Carbonate ([place] Carbonate Er 300 Mg Tablet.Er) 600 mg PO BID [facility] Last Admin: 04/15/25 09:29 Dose: 600 mg Magnesium Hydroxide (Milk Of Magnesia 30 Ml Oral.Susp) 30 ml PO DAILY PRN PRN Reason: Constipation Methimazole (Methimazole 10 Mg Tablet) 20 mg PO DAILY [facility] Last Admin: 04/15/25 09:29 Dose: 20 mg Multivitamins/Vitamin C (Multivitamin Tablet) 1 tab PO DAILY [facility] Last Admin: 04/15/25 09:34 Dose: Not Given Nicotine (Nicotine 21 Mg Patch.Td24) 21 mg TRANSDERMA DAILY PRN PRN Reason: nicotine cravings Last Admin: 04/12/25 17:06 Dose: 21 mg Nicotine Polacrilex (Nicotine Polacrilex 2 Mg Gum) 4 mg BUCCAL Q1H PRN PRN Reason: Nicotine Cravings Pt Own (Excedrin 250 (/250/65mg)) 2 each PO DAILY PRN PRN Reason: Migraine Headache Olanzapine (Olanzapine Odt 10 Mg Tab.Rapdis) 10 mg TRANSLINGU BID [facility] Last Admin: 04/15/25 09:29 Dose: 10 mg Olanzapine (Olanzapine 10 Mg Vial) 10 mg IM BID PRN PRN Reason: refusal of PO, per maria luz's ord Last Admin: 04/11/25 09:56 Dose: 10 mg Propranolol HCl (Propranolol Hcl La 60 Mg Cap.Sa.24h) 60 mg PO DAILY [facility]; Protocol Last Admin: 04/15/25 09:33 Dose: 60 mg Quetiapine Fumarate (Quetiapine Fumarate 200 Mg Tablet) 200 mg PO BEDTIME PRN PRN Reason: insomnia Allergies Allergies Allergy/AdvReac Type Severity Reaction Status Date / Time No Known Allergies Allergy Verified 03/26/25 14:24 Assessment & Plan Assessment & Plan (1) Schizophrenia: Status: Acute Code(s): F20.9 - Schizophrenia, unspecified Plan 03/26: offer lithium and seroquel for becca. continue methimazole and beta joanne for hyperthyroidism as started at [facility]. trend TFTs. 12b. 03/27: taking methimazole and beta joanne. refused HS meds last night, took morning meds today. continue to encourage medication compliance. 03/28: intermittently taking meds. wants all meds in morning. pressured, manic, paranoid delusions. encouraged to take lithium but states he will not. all meds ordered for morning. 03/29: Keeping to self. no groups. observed laying in bed listening to music on unit headphones. pleasant. Pt reports feeling good today and sleeping well. declined lithium and zyprexa. denies SI/HI/VH/AH. continue current tx plan. 03/30:Irritable. upset he was unable to use his personal hygiene products. Per nursing, pt threatened staff and squeezed tooth paste throughout unit hallway to show his frustration. Pt was able to calm down after speaking with security. declined medications. 03/31: Keeping to self. laying in bed listening to music. refused medications. calm today. Patient reports feeling great ; pt stated, nothing is wrong with me. I'm waiting so I can leave tomorrow. I'm hoping for the best . denies SI/HI/VH/AH. per nursing, slept 6 hours. Continue current tx plan. 04/01: variably calm on the unit versus highly agitated. paranoid delusions, irritability, lability continue. seems to believe MD has met him prior to the present hospitalization and is stalking him. believes brother behind conspiracy to have him psychiatrically hospitalized. has been refusing all medications, including for hyperthyroidism. informed he would be filed on. filed. continue to offer medications. 04/02: continues agitated, belittling, verbally aggressive, refusing all medications including for hyperthyroidism. continue to offer medication. 04/03: paranoid there is a conspiracy to hospitalize him. threatening to stick a stick in staff once he is released by english professor. insists his hyperthyroidism was cured at [facility]. asserts there is NOTHING wrong with him. continue to offer medication. 04/04: irritable, rejecting. verbally abuses MD and sends him away: see you on monday [in court]. continue to offer medication for thyroid condition and mental illness. 04/05 continue tx. suspicious and guarded, accusatory, verbal threats to hurt staff and peers 04/06 intrusive, posturing towards staff and peer who he thinks is not real and is an impostor, continues to make verbal threats to harm him but thinks that because he is not real he may not experience any pain. 04/07: threatening statements and behaviors of yesterday noted. pt sleeping this morning, dismissive of MD. 04/08: asleep days. committed and meds ordered by court. 04/09: on being informed of court order and MD insisting on meds, pt escalated to hurling food item in container against wall at high speed and saying he wished he could do the same to MD's head. pt eventually took court ordered meds PO. sensodyne and excedrin not available in pharmacy (pt requesting them). 04/10: continue tx. Pt accepting medication today. 04/11: Keeping to self. Lying in bed most of morning. Declined to meet with T/W. Pt stated, I'm fine. I don't need anything . Listening to headphones in room. Declined court ordered PO medications; received IM medications. Refused vital signs.continue tx plan. 04/12: got IMs yesterday, took PO this morning. sleepy, no concerns or complaints. 04/13: taking PO meds again. slept 7 hours. sleepy again mid morning refusing interview. continue current mgmt. 04/14: sleeping, rousable. denies being sedated or tired, says he's just bored. no questions or complaints. informed of need to check labs. check lithium level and thyroid labs tonight. 04/15: refusing labs. delusional re his brother harming him. verbally abusive toward MD. spat in floor. happy with improvement in proptosis. Reason for continued inpatient stay Substantial Risk for: harm to self, harm to others, inability to function and med/psych decompensation Time Spent With Patient Time: Total time managing care of this patient today __25__ minutes.
[2025-04-15 19:55] VITALS: BP 120/63; PULSE 87; RESP 16; TEMP 36.8; O2SAT 98
[2025-04-16] MEDS: OLANZapine ODT 10 MG TAB.RAPDIS TRANSLINGU ×2 (07:47→23:17)
[2025-04-16 08:00] VITALS: BP 156/78; PULSE 90; RESP 16; TEMP 36.8; O2SAT 98
--- NOTE | 2025-04-16 13:40 | HO.PSYCHPN ---
Subjective Subjective Date of Service: 04/16/25 Reason For Visit: Major depressive d/o, single episode, unspecified Subjective Notes: Section 8 Interim History: Laying in bed. Calm. cooperative. guarded. Pt reports feeling tired this morning d/t poor sleep last night. Pt stated, I don't need anything. I didn't sleep well so I'm trying to catch up . denies any issues at this time. denies SI/HI/VH/AH. Continue current tx plan. Medication Compliance: Intermittent Side effects from medications: No Attending Groups: No Mental Status Exam Mental Status Exam Narrative: unable to obtain full mental status d/t pt requesting to sleep. Patient Appearance: Appropriate Patient Orientation: Person, Place, Time and Situation Level of Consciousness: Awake Patient Behavior: Appropriate, Guarded and Cooperative Mood Description: Calm Affect Description: Calm Ability to Follow Directions: Good Speech Pattern: Clear Hallucinations: None Diagnostics Vital Signs (24Hr): Vital Signs - 24 hr 04/15/25 19:55 04/16/25 08:00 Temperature 98.2 F 98.2 F Pulse Rate 87 90 Respiratory Rate 16 16 Blood Pressure 120/63 156/78 H Pulse Oximetry 98 98 Oxygen Delivery Method Room Air Room Air BMI result Body Mass Index 17.1 Labs 03/27/25 09:44 Medications Medications Current Medications Acetaminophen (Acetaminophen 325 Mg Tablet) 650 mg PO Q6H PRN PRN Reason: Headache/Pain, Scale 1-10 Last Admin: 04/01/25 23:20 Dose: 650 mg Al Hydroxide/Mg Hydroxide (Magnesium Hydrox/Alum Hydrox 30 Ml Oral.Susp) 30 ml PO Q6H PRN PRN Reason: Heartburn/Nausea Diazepam (Diazepam 10 Mg/2 Ml Cartridge) 10 mg IM BID PRN PRN Reason: refusal of lithium, per [place] Last Admin: 04/11/25 09:56 Dose: 10 mg Haloperidol (Haloperidol 5 Mg Tablet) 5 mg PO Q4H PRN PRN Reason: agitation Hydroxyzine HCl (Hydroxyzine Hcl 25 Mg Tablet) 25 mg PO Q6H PRN PRN Reason: mild anxiety Ibuprofen (Ibuprofen 800 Mg Tablet) 800 mg PO Q4H PRN PRN Reason: pain (pain scale 1-10) Last Admin: 04/09/25 22:38 Dose: 800 mg [place] Carbonate ([place] Carbonate Er 300 Mg Tablet.Er) 600 mg PO BID [facility] Last Admin: 04/16/25 07:47 Dose: 600 mg Magnesium Hydroxide (Milk Of Magnesia 30 Ml Oral.Susp) 30 ml PO DAILY PRN PRN Reason: Constipation Methimazole (Methimazole 10 Mg Tablet) 20 mg PO DAILY [facility] Last Admin: 04/16/25 07:46 Dose: 20 mg Multivitamins/Vitamin C (Multivitamin Tablet) 1 tab PO DAILY [facility] Last Admin: 04/16/25 07:50 Dose: Not Given Nicotine (Nicotine 21 Mg Patch.Td24) 21 mg TRANSDERMA DAILY PRN PRN Reason: nicotine cravings Last Admin: 04/12/25 17:06 Dose: 21 mg Nicotine Polacrilex (Nicotine Polacrilex 2 Mg Gum) 4 mg BUCCAL Q1H PRN PRN Reason: Nicotine Cravings Pt Own (Excedrin 250 (/250/65mg)) 2 each PO DAILY PRN PRN Reason: Migraine Headache Olanzapine (Olanzapine Odt 10 Mg Tab.Rapdis) 10 mg TRANSLINGU BID [facility] Last Admin: 04/16/25 07:47 Dose: 10 mg Olanzapine (Olanzapine 10 Mg Vial) 10 mg IM BID PRN PRN Reason: refusal of PO, per maria luz's ord Last Admin: 04/11/25 09:56 Dose: 10 mg Propranolol HCl (Propranolol Hcl La 60 Mg Cap.Sa.24h) 60 mg PO DAILY [facility]; Protocol Last Admin: 04/16/25 07:50 Dose: Not Given Quetiapine Fumarate (Quetiapine Fumarate 200 Mg Tablet) 200 mg PO BEDTIME PRN PRN Reason: insomnia Last Admin: 04/16/25 04:21 Dose: 200 mg Allergies Allergies Allergy/AdvReac Type Severity Reaction Status Date / Time No Known Allergies Allergy Verified 03/26/25 14:24 Assessment & Plan Assessment & Plan (1) Schizophrenia: Status: Acute Code(s): F20.9 - Schizophrenia, unspecified Plan 03/26: offer lithium and seroquel for becca. continue methimazole and beta joanne for hyperthyroidism as started at [facility]. trend TFTs. 12b. 03/27: taking methimazole and beta joanne. refused HS meds last night, took morning meds today. continue to encourage medication compliance. 03/28: intermittently taking meds. wants all meds in morning. pressured, manic, paranoid delusions. encouraged to take lithium but states he will not. all meds ordered for morning. 03/29: Keeping to self. no groups. observed laying in bed listening to music on unit headphones. pleasant. Pt reports feeling good today and sleeping well. declined lithium and zyprexa. denies SI/HI/VH/AH. continue current tx plan. 03/30:Irritable. upset he was unable to use his personal hygiene products. Per nursing, pt threatened staff and squeezed tooth paste throughout unit hallway to show his frustration. Pt was able to calm down after speaking with security. declined medications. 03/31: Keeping to self. laying in bed listening to music. refused medications. calm today. Patient reports feeling great ; pt stated, nothing is wrong with me. I'm waiting so I can leave tomorrow. I'm hoping for the best . denies SI/HI/VH/AH. per nursing, slept 6 hours. Continue current tx plan. 04/01: variably calm on the unit versus highly agitated. paranoid delusions, irritability, lability continue. seems to believe MD has met him prior to the present hospitalization and is stalking him. believes brother behind conspiracy to have him psychiatrically hospitalized. has been refusing all medications, including for hyperthyroidism. informed he would be filed on. filed. continue to offer medications. 04/02: continues agitated, belittling, verbally aggressive, refusing all medications including for hyperthyroidism. continue to offer medication. 04/03: paranoid there is a conspiracy to hospitalize him. threatening to stick a stick in staff once he is released by manager [employer]. insists his hyperthyroidism was cured at [facility]. asserts there is NOTHING wrong with him. continue to offer medication. 04/04: irritable, rejecting. verbally abuses MD and sends him away: see you on monday [in court]. continue to offer medication for thyroid condition and mental illness. 04/05 continue tx. suspicious and guarded, accusatory, verbal threats to hurt staff and peers 04/06 intrusive, posturing towards staff and peer who he thinks is not real and is an impostor, continues to make verbal threats to harm him but thinks that because he is not real he may not experience any pain. 04/07: threatening statements and behaviors of yesterday noted. pt sleeping this morning, dismissive of MD. 04/08: asleep days. committed and meds ordered by court. 04/09: on being informed of court order and MD insisting on meds, pt escalated to hurling food item in container against wall at high speed and saying he wished he could do the same to MD's head. pt eventually took court ordered meds PO. sensodyne and excedrin not available in pharmacy (pt requesting them). 04/10: continue tx. Pt accepting medication today. 04/11: Keeping to self. Lying in bed most of morning. Declined to meet with T/W. Pt stated, I'm fine. I don't need anything . Listening to headphones in room. Declined court ordered PO medications; received IM medications. Refused vital signs.continue tx plan. 04/12: got IMs yesterday, took PO this morning. sleepy, no concerns or complaints. 04/13: taking PO meds again. slept 7 hours. sleepy again mid morning refusing interview. continue current mgmt. 04/14: sleeping, rousable. denies being sedated or tired, says he's just bored. no questions or complaints. informed of need to check labs. check lithium level and thyroid labs tonight. 04/15: refusing labs. delusional re his brother harming him. verbally abusive toward MD. spat in floor. happy with improvement in proptosis. 04/16: Laying in bed. Calm. cooperative. guarded. Pt reports feeling tired this morning d/t poor sleep last night. Pt stated, I don't need anything. I didn't sleep well so I'm trying to catch up . denies any issues at this time. denies SI/HI/VH/AH. Continue current tx plan. Patient educated on: diagnosis and medication risk/benefits Reason for continued inpatient stay Substantial Risk for: med/psych decompensation Time Spent With Patient Time: Total time managing care of this patient today _10___ minutes.
[2025-04-16 19:31] VITALS: BP 140/70; PULSE 104; RESP 16; TEMP 37.1; O2SAT 99
[2025-04-17 07:00] VITALS: BMI 19.6
[2025-04-17] MEDS: OLANZapine ODT 10 MG TAB.RAPDIS TRANSLINGU ×2 (09:00→22:51)
--- NOTE | 2025-04-17 15:29 | P.PNPSI_ITS ---
Subjective Subjective Date of Service: 04/17/25 Reason For Visit: Major depressive d/o, single episode, unspecified Interim History: asking for phone to call [facility]. more calm than prior. per staff, refusing propranolol and MVI, taking other meds. slept all NOC. relaxed. Mental Status Exam Mental Status Exam Narrative: very tall and thin. adequately dressed and groomed. exopthalmos. superficially cooperative and calm. affect hyper-intense, non-labile. mood not assessed. no no SI/AVH expressed. Diagnostics Vital Signs (24Hr): Vital Signs - 24 hr 04/16/25 19:31 Temperature 98.7 F Pulse Rate 104 H Respiratory Rate 16 Blood Pressure 140/70 H Pulse Oximetry 99 Oxygen Delivery Method Room Air BMI result Body Mass Index 19.6 Labs 03/27/25 09:44 Medications Medications Current Medications Acetaminophen (Acetaminophen 325 Mg Tablet) 650 mg PO Q6H PRN PRN Reason: Headache/Pain, Scale 1-10 Last Admin: 04/01/25 23:20 Dose: 650 mg Al Hydroxide/Mg Hydroxide (Magnesium Hydrox/Alum Hydrox 30 Ml Oral.Susp) 30 ml PO Q6H PRN PRN Reason: Heartburn/Nausea Diazepam (Diazepam 10 Mg/2 Ml Cartridge) 10 mg IM BID PRN PRN Reason: refusal of lithium, per [place] Last Admin: 04/11/25 09:56 Dose: 10 mg Haloperidol (Haloperidol 5 Mg Tablet) 5 mg PO Q4H PRN PRN Reason: agitation Hydroxyzine HCl (Hydroxyzine Hcl 25 Mg Tablet) 25 mg PO Q6H PRN PRN Reason: mild anxiety Ibuprofen (Ibuprofen 800 Mg Tablet) 800 mg PO Q4H PRN PRN Reason: pain (pain scale 1-10) Last Admin: 04/09/25 22:38 Dose: 800 mg [place] Carbonate ([place] Carbonate Er 300 Mg Tablet.Er) 600 mg PO BID [facility] Last Admin: 04/17/25 09:01 Dose: 600 mg Magnesium Hydroxide (Milk Of Magnesia 30 Ml Oral.Susp) 30 ml PO DAILY PRN PRN Reason: Constipation Methimazole (Methimazole 10 Mg Tablet) 20 mg PO DAILY [facility] Last Admin: 04/17/25 09:01 Dose: 20 mg Multivitamins/Vitamin C (Multivitamin Tablet) 1 tab PO DAILY [facility] Last Admin: 04/17/25 09:03 Dose: Not Given Nicotine (Nicotine 21 Mg Patch.Td24) 21 mg TRANSDERMA DAILY PRN PRN Reason: nicotine cravings Last Admin: 04/12/25 17:06 Dose: 21 mg Nicotine Polacrilex (Nicotine Polacrilex 2 Mg Gum) 4 mg BUCCAL Q1H PRN PRN Reason: Nicotine Cravings Pt Own (Excedrin 250 (/250/65mg)) 2 each PO DAILY PRN PRN Reason: Migraine Headache Olanzapine (Olanzapine Odt 10 Mg Tab.Rapdis) 10 mg TRANSLINGU BID [facility] Last Admin: 04/17/25 09:00 Dose: 10 mg Olanzapine (Olanzapine 10 Mg Vial) 10 mg IM BID PRN PRN Reason: refusal of PO, per maria luz's ord Last Admin: 04/11/25 09:56 Dose: 10 mg Propranolol HCl (Propranolol Hcl La 60 Mg Cap.Sa.24h) 60 mg PO DAILY [facility]; Protocol Last Admin: 04/17/25 09:03 Dose: Not Given Quetiapine Fumarate (Quetiapine Fumarate 200 Mg Tablet) 200 mg PO BEDTIME PRN PRN Reason: insomnia Last Admin: 04/16/25 04:21 Dose: 200 mg Allergies Allergies Allergy/AdvReac Type Severity Reaction Status Date / Time No Known Allergies Allergy Verified 03/26/25 14:24 Assessment & Plan Assessment & Plan (1) Schizophrenia: Status: Acute Code(s): F20.9 - Schizophrenia, unspecified Plan 03/26: offer lithium and seroquel for becca. continue methimazole and beta joanne for hyperthyroidism as started at [facility]. trend TFTs. 12b. 03/27: taking methimazole and beta joanne. refused HS meds last night, took morning meds today. continue to encourage medication compliance. 03/28: intermittently taking meds. wants all meds in morning. pressured, manic, paranoid delusions. encouraged to take lithium but states he will not. all meds ordered for morning. 03/29: Keeping to self. no groups. observed laying in bed listening to music on unit headphones. pleasant. Pt reports feeling good today and sleeping well. declined lithium and zyprexa. denies SI/HI/VH/AH. continue current tx plan. 03/30:Irritable. upset he was unable to use his personal hygiene products. Per nursing, pt threatened staff and squeezed tooth paste throughout unit hallway to show his frustration. Pt was able to calm down after speaking with security. declined medications. 03/31: Keeping to self. laying in bed listening to music. refused medications. calm today. Patient reports feeling great ; pt stated, nothing is wrong with me. I'm waiting so I can leave tomorrow. I'm hoping for the best . denies SI/HI/VH/AH. per nursing, slept 6 hours. Continue current tx plan. 04/01: variably calm on the unit versus highly agitated. paranoid delusions, irritability, lability continue. seems to believe MD has met him prior to the present hospitalization and is stalking him. believes brother behind conspiracy to have him psychiatrically hospitalized. has been refusing all medications, including for hyperthyroidism. informed he would be filed on. filed. continue to offer medications. 04/02: continues agitated, belittling, verbally aggressive, refusing all medications including for hyperthyroidism. continue to offer medication. 04/03: paranoid there is a conspiracy to hospitalize him. threatening to stick a stick in staff once he is released by dog show judge. insists his hyperthyroidism was cured at [facility]. asserts there is NOTHING wrong with him. continue to offer medication. 04/04: irritable, rejecting. verbally abuses MD and sends him away: see you on monday [in court]. continue to offer medication for thyroid condition and mental illness. 04/05 continue tx. suspicious and guarded, accusatory, verbal threats to hurt staff and peers 04/06 intrusive, posturing towards staff and peer who he thinks is not real and is an impostor, continues to make verbal threats to harm him but thinks that because he is not real he may not experience any pain. 04/07: threatening statements and behaviors of yesterday noted. pt sleeping this morning, dismissive of MD. 04/08: asleep days. committed and meds ordered by court. 04/09: on being informed of court order and MD insisting on meds, pt escalated to hurling food item in container against wall at high speed and saying he wished he could do the same to MD's head. pt eventually took court ordered meds PO. sensodyne and excedrin not available in pharmacy (pt requesting them). 04/10: continue tx. Pt accepting medication today. 04/11: Keeping to self. Lying in bed most of morning. Declined to meet with T/W. Pt stated, I'm fine. I don't need anything . Listening to headphones in room. Declined court ordered PO medications; received IM medications. Refused vital signs.continue tx plan. 04/12: got IMs yesterday, took PO this morning. sleepy, no concerns or complaints. 04/13: taking PO meds again. slept 7 hours. sleepy again mid morning refusing interview. continue current mgmt. 04/14: sleeping, rousable. denies being sedated or tired, says he's just bored. no questions or complaints. informed of need to check labs. check lithium level and thyroid labs tonight. 04/15: refusing labs. delusional re his brother harming him. verbally abusive toward . carito in floor. happy with improvement in proptosis. 04/16: Lying in bed. Calm. cooperative. guarded. Pt reports feeling tired this morning d/t poor sleep last night. Pt stated, I don't need anything. I didn't sleep well so I'm trying to catch up . denies any issues at this time. denies SI/HI/VH/AH. Continue current tx plan. 04/17: more calm today, less explosive. continue current mgmt. Reason for continued inpatient stay Substantial Risk for: harm to self, harm to others, inability to function and med/psych decompensation Time Spent With Patient Time: Total time managing care of this patient today __25__ minutes.
[2025-04-17 20:15] VITALS: BP 149/73; PULSE 103; RESP 16; TEMP 37.1; O2SAT 99
[2025-04-18] MEDS: OLANZapine ODT 10 MG TAB.RAPDIS TRANSLINGU ×2 (09:14→22:58)
[2025-04-18] MEDS: EXCEDRIN 2 EACH PO ×2 (09:15→18:03)
--- NOTE | 2025-04-18 13:52 | HO.PSYCHPN ---
Subjective Subjective Date of Service: 04/18/25 Reason For Visit: Major depressive d/o, single episode, unspecified Interim History: less labile than prior. no insults for MD even though upset. [facility] upset with interaction with joo, refusing to have her supervise his phone use, says he'll wait until next shift. per staff, taking meds. refusing propranolol. slept about 2 hours only last night. Mental Status Exam Mental Status Exam Narrative: very tall and thin. adequately dressed and groomed. exopthalmos. superficially cooperative and calm. affect hyper-intense, min-labile. mood not assessed. no no SI/AVH expressed. Diagnostics Vital Signs (24Hr): Vital Signs - 24 hr 04/17/25 20:15 Temperature 98.7 F Pulse Rate 103 H Respiratory Rate 16 Blood Pressure 149/73 H Pulse Oximetry 99 Oxygen Delivery Method Room Air BMI result Body Mass Index 19.6 Labs 03/27/25 09:44 Medications Medications Current Medications Acetaminophen (Acetaminophen 325 Mg Tablet) 650 mg PO Q6H PRN PRN Reason: Headache/Pain, Scale 1-10 Last Admin: 04/01/25 23:20 Dose: 650 mg Al Hydroxide/Mg Hydroxide (Magnesium Hydrox/Alum Hydrox 30 Ml Oral.Susp) 30 ml PO Q6H PRN PRN Reason: Heartburn/Nausea Diazepam (Diazepam 10 Mg/2 Ml Cartridge) 10 mg IM BID PRN PRN Reason: refusal of lithium, per everett Last Admin: 04/11/25 09:56 Dose: 10 mg Haloperidol (Haloperidol 5 Mg Tablet) 5 mg PO Q4H PRN PRN Reason: agitation Hydroxyzine HCl (Hydroxyzine Hcl 25 Mg Tablet) 25 mg PO Q6H PRN PRN Reason: mild anxiety Ibuprofen (Ibuprofen 800 Mg Tablet) 800 mg PO Q4H PRN PRN Reason: pain (pain scale 1-10) Last Admin: 04/09/25 22:38 Dose: 800 mg [place] Carbonate ([place] Carbonate Er 300 Mg Tablet.Er) 600 mg PO BID [facility] Last Admin: 04/18/25 09:13 Dose: 600 mg Magnesium Hydroxide (Milk Of Magnesia 30 Ml Oral.Susp) 30 ml PO DAILY PRN PRN Reason: Constipation Methimazole (Methimazole 10 Mg Tablet) 20 mg PO DAILY [facility] Last Admin: 04/18/25 09:14 Dose: 20 mg Multivitamins/Vitamin C (Multivitamin Tablet) 1 tab PO DAILY [facility] Last Admin: 04/18/25 09:34 Dose: Not Given Nicotine (Nicotine 21 Mg Patch.Td24) 21 mg TRANSDERMA DAILY PRN PRN Reason: nicotine cravings Last Admin: 04/12/25 17:06 Dose: 21 mg Nicotine Polacrilex (Nicotine Polacrilex 2 Mg Gum) 4 mg BUCCAL Q1H PRN PRN Reason: Nicotine Cravings Pt Own (Excedrin 250 (/250/65mg)) 2 each PO DAILY PRN PRN Reason: Migraine Headache Last Admin: 04/18/25 09:15 Dose: 2 each Olanzapine (Olanzapine Odt 10 Mg Tab.Rapdis) 10 mg TRANSLINGU BID [facility] Last Admin: 04/18/25 09:14 Dose: 10 mg Olanzapine (Olanzapine 10 Mg Vial) 10 mg IM BID PRN PRN Reason: refusal of PO, per maria luz's ord Last Admin: 04/11/25 09:56 Dose: 10 mg Propranolol HCl (Propranolol Hcl La 60 Mg Cap.Sa.24h) 60 mg PO DAILY [facility]; Protocol Last Admin: 04/18/25 07:58 Dose: Not Given Quetiapine Fumarate (Quetiapine Fumarate 200 Mg Tablet) 200 mg PO BEDTIME PRN PRN Reason: insomnia Last Admin: 04/16/25 04:21 Dose: 200 mg Allergies Allergies Allergy/AdvReac Type Severity Reaction Status Date / Time No Known Allergies Allergy Verified 03/26/25 14:24 Assessment & Plan Assessment & Plan (1) Schizophrenia: Status: Acute Code(s): F20.9 - Schizophrenia, unspecified Plan 03/26: offer lithium and seroquel for becca. continue methimazole and beta joanne for hyperthyroidism as started at [facility]. trend TFTs. 12b. 03/27: taking methimazole and beta joanne. refused HS meds last night, took morning meds today. continue to encourage medication compliance. 03/28: intermittently taking meds. wants all meds in morning. pressured, manic, paranoid delusions. encouraged to take lithium but states he will not. all meds ordered for morning. 03/29: Keeping to self. no groups. observed laying in bed listening to music on unit headphones. pleasant. Pt reports feeling good today and sleeping well. declined lithium and zyprexa. denies SI/HI/VH/AH. continue current tx plan. 03/30:Irritable. upset he was unable to use his personal hygiene products. Per nursing, pt threatened staff and squeezed tooth paste throughout unit hallway to show his frustration. Pt was able to calm down after speaking with security. declined medications. 03/31: Keeping to self. laying in bed listening to music. refused medications. calm today. Patient reports feeling great ; pt stated, nothing is wrong with me. I'm waiting so I can leave tomorrow. I'm hoping for the best . denies SI/HI/VH/AH. per nursing, slept 6 hours. Continue current tx plan. 04/01: variably calm on the unit versus highly agitated. paranoid delusions, irritability, lability continue. seems to believe MD has met him prior to the present hospitalization and is stalking him. believes brother behind conspiracy to have him psychiatrically hospitalized. has been refusing all medications, including for hyperthyroidism. informed he would be filed on. filed. continue to offer medications. 04/02: continues agitated, belittling, verbally aggressive, refusing all medications including for hyperthyroidism. continue to offer medication. 04/03: paranoid there is a conspiracy to hospitalize him. threatening to stick a stick in staff once he is released by embedded hardware engineer. insists his hyperthyroidism was cured at [facility]. asserts there is NOTHING wrong with him. continue to offer medication. 04/04: irritable, rejecting. verbally abuses MD and sends him away: see you on monday [in court]. continue to offer medication for thyroid condition and mental illness. 04/05 continue tx. suspicious and guarded, accusatory, verbal threats to hurt staff and peers 04/06 intrusive, posturing towards staff and peer who he thinks is not real and is an impostor, continues to make verbal threats to harm him but thinks that because he is not real he may not experience any pain. 04/07: threatening statements and behaviors of yesterday noted. pt sleeping this morning, dismissive of MD. 04/08: asleep days. committed and meds ordered by court. 04/09: on being informed of court order and MD insisting on meds, pt escalated to hurling food item in container against wall at high speed and saying he wished he could do the same to MD's head. pt eventually took court ordered meds PO. sensodyne and excedrin not available in pharmacy (pt requesting them). 04/10: continue tx. Pt accepting medication today. 04/11: Keeping to self. Lying in bed most of morning. Declined to meet with T/W. Pt stated, I'm fine. I don't need anything . Listening to headphones in room. Declined court ordered PO medications; received IM medications. Refused vital signs.continue tx plan. 04/12: got IMs yesterday, took PO this morning. sleepy, no concerns or complaints. 04/13: taking PO meds again. slept 7 hours. sleepy again mid morning refusing interview. continue current mgmt. 04/14: sleeping, rousable. denies being sedated or tired, says he's just bored. no questions or complaints. informed of need to check labs. check lithium level and thyroid labs tonight. 04/15: refusing labs. delusional re his brother harming him. verbally abusive toward MD. spat in floor. happy with improvement in proptosis. 04/16: Lying in bed. Calm. cooperative. guarded. Pt reports feeling tired this morning d/t poor sleep last night. Pt stated, I don't need anything. I didn't sleep well so I'm trying to catch up . denies any issues at this time. denies SI/HI/VH/AH. Continue current tx plan. 04/17: more calm today, less explosive. continue current mgmt. 04/18: continues more calm. tolerating moments of frustration without verbally attacking MD. slept only 2 hours overnight, however. continue current mgmt. Reason for continued inpatient stay Substantial Risk for: harm to self, harm to others, inability to function and rapid decompensation Time Spent With Patient Time: Total time managing care of this patient today __25__ minutes.
[2025-04-18 20:00] VITALS: RESP 16
--- NOTE | 2025-04-19 08:09 | HO.PSYCHPN ---
Subjective Subjective Date of Service: 04/19/25 Reason For Visit: Major depressive d/o, single episode, unspecified Subjective Notes: Section 8 Healthcare Proxy: No Guardianship: No Medical Problems Affecting Mental Status: No Interim History: 40 yo lying in bed, after previously being in [place] listening to music on headset and dancing- - denying any problems to this provider- nursing reports he slept 6 hrs, refused bp and vitamins- says he is healthy and eating meals- ongoing inapp grabbing cell phone and trying to use it for other things than calls that was agreed to - paranoid and negative about nursing, labile and unreliable reactions=- so being held from fresh air breaks till in better self control and responding to redirection more consistently Medication Compliance: Yes Side effects from medications: No Attending Groups: Intermittent Review of Systems Acute medical concerns: No Medical Review of Systems: unchanged Mental Status Exam Mental Status Exam Narrative: lying in bed , covered in sheet, denying any problems - did turn head toward provider- agreed to lights turned on Patient Orientation: Person, Place and Situation Level of Consciousness: Awake and Alert Patient Behavior: Guarded, Resistive to Care and Impulsive Mood Description: Calm Affect Description: Labile Patient Cognition Impaired: No Ability to Follow Directions: Poor Speech Pattern: Clear Hallucinations: None Delusions: Paranoid Ideation Thought Process: Intact and Goal Oriented Judgement: Poor Diagnostics Vital Signs (24Hr): Vital Signs - 24 hr 04/18/25 20:00 Respiratory Rate 16 BMI result Body Mass Index 19.6 Labs 03/27/25 09:44 Medications Medications Current Medications Acetaminophen (Acetaminophen 325 Mg Tablet) 650 mg PO Q6H PRN PRN Reason: Headache/Pain, Scale 1-10 Last Admin: 04/01/25 23:20 Dose: 650 mg Al Hydroxide/Mg Hydroxide (Magnesium Hydrox/Alum Hydrox 30 Ml Oral.Susp) 30 ml PO Q6H PRN PRN Reason: Heartburn/Nausea Diazepam (Diazepam 10 Mg/2 Ml Cartridge) 10 mg IM BID PRN PRN Reason: refusal of lithium, mary floyd Last Admin: 04/11/25 09:56 Dose: 10 mg Haloperidol (Haloperidol 5 Mg Tablet) 5 mg PO Q4H PRN PRN Reason: agitation Hydroxyzine HCl (Hydroxyzine Hcl 25 Mg Tablet) 25 mg PO Q6H PRN PRN Reason: mild anxiety Ibuprofen (Ibuprofen 800 Mg Tablet) 800 mg PO Q4H PRN PRN Reason: pain (pain scale 1-10) Last Admin: 04/18/25 23:51 Dose: 800 mg [place] Carbonate ([place] Carbonate Er 300 Mg Tablet.Er) 600 mg PO BID [facility] Last Admin: 04/18/25 22:58 Dose: 600 mg Magnesium Hydroxide (Milk Of Magnesia 30 Ml Oral.Susp) 30 ml PO DAILY PRN PRN Reason: Constipation Methimazole (Methimazole 10 Mg Tablet) 20 mg PO DAILY [facility] Last Admin: 04/18/25 09:14 Dose: 20 mg Multivitamins/Vitamin C (Multivitamin Tablet) 1 tab PO DAILY [facility] Last Admin: 04/18/25 09:34 Dose: Not Given Nicotine (Nicotine 21 Mg Patch.Td24) 21 mg TRANSDERMA DAILY PRN PRN Reason: nicotine cravings Last Admin: 04/12/25 17:06 Dose: 21 mg Nicotine Polacrilex (Nicotine Polacrilex 2 Mg Gum) 4 mg BUCCAL Q1H PRN PRN Reason: Nicotine Cravings Patient Own Medication Excedrin 250/250/65mg 2 each PO Q8H PRN PRN Reason: Migraine Headache Last Admin: 04/18/25 18:03 Dose: 2 each Olanzapine (Olanzapine Odt 10 Mg Tab.Rapdis) 10 mg TRANSLINGU BID [facility] Last Admin: 04/18/25 22:58 Dose: 10 mg Olanzapine (Olanzapine 10 Mg Vial) 10 mg IM BID PRN PRN Reason: refusal of PO, per maria luz's ord Last Admin: 04/11/25 09:56 Dose: 10 mg Propranolol HCl (Propranolol Hcl La 60 Mg Cap.Sa.24h) 60 mg PO DAILY [facility]; Protocol Last Admin: 04/18/25 07:58 Dose: Not Given Quetiapine Fumarate (Quetiapine Fumarate 200 Mg Tablet) 200 mg PO BEDTIME PRN PRN Reason: insomnia Last Admin: 04/16/25 04:21 Dose: 200 mg Allergies Allergies Allergy/AdvReac Type Severity Reaction Status Date / Time No Known Allergies Allergy Verified 03/26/25 14:24 Assessment & Plan Assessment & Plan (1) Schizophrenia: Status: Acute Code(s): F20.9 - Schizophrenia, unspecified Plan 03/26: offer lithium and seroquel for becca. continue methimazole and beta joanne for hyperthyroidism as started at [facility]. trend TFTs. 12b. 03/27: taking methimazole and beta joanne. refused HS meds last night, took morning meds today. continue to encourage medication compliance. 03/28: intermittently taking meds. wants all meds in morning. pressured, manic, paranoid delusions. encouraged to take lithium but states he will not. all meds ordered for morning. 03/29: Keeping to self. no groups. observed laying in bed listening to music on unit headphones. pleasant. Pt reports feeling good today and sleeping well. declined lithium and zyprexa. denies SI/HI/VH/AH. continue current tx plan. 03/30:Irritable. upset he was unable to use his personal hygiene products. Per nursing, pt threatened staff and squeezed tooth paste throughout unit hallway to show his frustration. Pt was able to calm down after speaking with security. declined medications. 03/31: Keeping to self. laying in bed listening to music. refused medications. calm today. Patient reports feeling great ; pt stated, nothing is wrong with me. I'm waiting so I can leave tomorrow. I'm hoping for the best . denies SI/HI/VH/AH. per nursing, slept 6 hours. Continue current tx plan. 04/01: variably calm on the unit versus highly agitated. paranoid delusions, irritability, lability continue. seems to believe MD has met him prior to the present hospitalization and is stalking him. believes brother behind conspiracy to have him psychiatrically hospitalized. has been refusing all medications, including for hyperthyroidism. informed he would be filed on. filed. continue to offer medications. 04/02: continues agitated, belittling, verbally aggressive, refusing all medications including for hyperthyroidism. continue to offer medication. 04/03: paranoid there is a conspiracy to hospitalize him. threatening to stick a stick in staff once he is released by cut out press operator. insists his hyperthyroidism was cured at [facility]. asserts there is NOTHING wrong with him. continue to offer medication. 04/04: irritable, rejecting. verbally abuses MD and sends him away: see you on monday [in court]. continue to offer medication for thyroid condition and mental illness. 04/05 continue tx. suspicious and guarded, accusatory, verbal threats to hurt staff and peers 04/06 intrusive, posturing towards staff and peer who he thinks is not real and is an impostor, continues to make verbal threats to harm him but thinks that because he is not real he may not experience any pain. 04/07: threatening statements and behaviors of yesterday noted. pt sleeping this morning, dismissive of MD. 04/08: asleep days. committed and meds ordered by court. 04/09: on being informed of court order and MD insisting on meds, pt escalated to hurling food item in container against wall at high speed and saying he wished he could do the same to MD's head. pt eventually took court ordered meds PO. sensodyne and excedrin not available in pharmacy (pt requesting them). 04/10: continue tx. Pt accepting medication today. 04/11: Keeping to self. Lying in bed most of morning. Declined to meet with T/W. Pt stated, I'm fine. I don't need anything . Listening to headphones in room. Declined court ordered PO medications; received IM medications. Refused vital signs.continue tx plan. 04/12: got IMs yesterday, took PO this morning. sleepy, no concerns or complaints. 04/13: taking PO meds again. slept 7 hours. sleepy again mid morning refusing interview. continue current mgmt. 04/14: sleeping, rousable. denies being sedated or tired, says he's just bored. no questions or complaints. informed of need to check labs. check lithium level and thyroid labs tonight. 04/15: refusing labs. delusional re his brother harming him. verbally abusive toward MD. spat in floor. happy with improvement in proptosis. 04/16: Lying in bed. Calm. cooperative. guarded. Pt reports feeling tired this morning d/t poor sleep last night. Pt stated, I don't need anything. I didn't sleep well so I'm trying to catch up . denies any issues at this time. denies SI/HI/VH/AH. Continue current tx plan. 04/17: more calm today, less explosive. continue current mgmt. 04/18: continues more calm. tolerating moments of frustration without verbally attacking MD. slept only 2 hours overnight, however. continue current mgmt. 04/19 continues to push boundaries and limits with staff mike around cell phone- Reason for continued inpatient stay Substantial Risk for: inability to function and rapid decompensation Time Spent With Patient Time: Total time managing care of this patient today ____ minutes.
[2025-04-19] MEDS: OLANZapine ODT 10 MG TAB.RAPDIS TRANSLINGU ×2 (09:33→22:31)
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
--- NOTE | 2025-04-19 18:41 | HO.BHRESTREX ---
Behavioral Restraint Exam Behavioral Health Restraint Exam Type of Restraint: Medication Reason for Restraint: Substantial Risk and Substantial Risk of Harm to Others Medical Concerns for Restraint: No medical concerns, pt w/o acute inj / no noted resp/VS abnormalities Behavioral Assessment / Plan: No further behavioral concerns, continue current plan. Comment: Patient took p.o. medications; no other restraint administered
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
[2025-04-19 20:00] VITALS: BP 141/72; PULSE 104; RESP 16; TEMP 37.2; O2SAT 100
[2025-04-20] MEDS: OLANZapine ODT 10 MG TAB.RAPDIS TRANSLINGU ×2 (09:47→23:38)
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
[2025-04-20 19:35] VITALS: BP 137/72; PULSE 103; RESP 16; TEMP 36.9; O2SAT 100
[2025-04-21 08:00] VITALS: BP 144/81; PULSE 102; RESP 16; TEMP 36.9; O2SAT 98
[2025-04-21] MEDS: OLANZapine ODT 10 MG TAB.RAPDIS TRANSLINGU ×2 (08:54→23:46)
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
[2025-04-21 19:55] VITALS: BP 160/71; PULSE 107; TEMP 37.1; O2SAT 100
[2025-04-22 07:29] VITALS: BP 138/78; PULSE 99; RESP 16; TEMP 36.8; O2SAT 99
[2025-04-22] MEDS: OLANZapine ODT 10 MG TAB.RAPDIS TRANSLINGU ×2 (07:54→22:21)
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
[2025-04-22 20:00] VITALS: BP 140/63; PULSE 105; RESP 17; TEMP 37.7; O2SAT 99
[2025-04-22 21:08] LABS: Lithium 0.60 mmol/L (0.60-1.20)
[2025-04-22 21:21] LABS: Anion Gap 9 (12-20); Blood Urea Nitrogen 22 mg/dL (9-16); Calcium 9.5 mg/dL (8.4-10.2); Carbon Dioxide 30 mmol/L (22-29); Chloride 104 mmol/L (96-108); Creatinine Clr Calc Pharmacy 147.0; Estimated Glomerular Filt Rate > 60; Potassium 4.2 mmol/L (3.3-5.1); Sodium 139 mmol/L (135-145)
[2025-04-22 22:20] LABS: Free T4 (Free Thyroxine) 1.26 ng/dL (0.71-1.85)
[2025-04-23 08:00] VITALS: BP 140/71; PULSE 101; RESP 16; TEMP 36.4; O2SAT 98
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
[2025-04-23 20:00] VITALS: BP 164/74; PULSE 100; RESP 100; TEMP 37.2; O2SAT 100
[2025-04-23] MEDS: OLANZapine ODT 10 MG TAB.RAPDIS TRANSLINGU (22:46)
[2025-04-24 07:10] VITALS: BP 126/82; PULSE 88; RESP 17; TEMP 37.1; O2SAT 96
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
[2025-04-24 20:00] VITALS: BP 128/73; PULSE 100; RESP 16; TEMP 36.8; O2SAT 100
[2025-04-24] MEDS: OLANZapine ODT 10 MG TAB.RAPDIS TRANSLINGU (22:13)
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
[2025-04-25] MEDS: Benzocaine 20 % Oral Gel 14 GM TUBE 1 APPL MUCOUS MEM (05:42)
[2025-04-25 07:05] VITALS: BP 135/75; PULSE 99; RESP 14; TEMP 36.9; O2SAT 100
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
[2025-04-25] MEDS: OLANZapine ODT 10 MG TAB.RAPDIS TRANSLINGU (22:31)
[2025-04-25 22:37] VITALS: BP 144/75; PULSE 107; RESP 16; TEMP 36.8; O2SAT 100
[2025-04-26 08:00] VITALS: BP 137/70; PULSE 102; RESP 18; TEMP 36.4; O2SAT 100
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
[2025-04-26] MEDS: Benzocaine 20 % Oral Gel 14 GM TUBE 1 APPL MUCOUS MEM (18:33)
[2025-04-26 19:19] VITALS: BP 135/72; PULSE 95; RESP 16; TEMP 36.8; O2SAT 98
[2025-04-26] MEDS: OLANZapine ODT 10 MG TAB.RAPDIS 20 MG TRANSLINGU (23:19)
[2025-04-27 08:00] VITALS: BP 140/75; PULSE 88; RESP 20; TEMP 36.6; O2SAT 100
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
[2025-04-27 20:00] VITALS: BP 141/74; PULSE 100; RESP 16; TEMP 36.6; O2SAT 100
[2025-04-27] MEDS: OLANZapine ODT 10 MG TAB.RAPDIS 20 MG TRANSLINGU (22:41)
[2025-04-28 07:53] VITALS: BP 176/76; PULSE 93; RESP 16; TEMP 36.7; O2SAT 100
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
[2025-04-28 20:00] VITALS: BP 130/72; PULSE 97; RESP 16; TEMP 36.9; O2SAT 100
[2025-04-28] MEDS: OLANZapine ODT 10 MG TAB.RAPDIS 20 MG TRANSLINGU (22:35)
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
[2025-04-29 19:10] VITALS: BP 151/68; PULSE 92; RESP 16; TEMP 36.8; O2SAT 100
[2025-04-29] MEDS: OLANZapine ODT 10 MG TAB.RAPDIS 20 MG TRANSLINGU (23:05)
[2025-04-30 07:48] VITALS: BP 139/78; PULSE 107; RESP 16; TEMP 37.2; O2SAT 98
[2025-04-30] MEDS: Nicotine Polacrilex Lozenge 2 MG LOZENGE BUCCAL (08:49)
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
[2025-04-30 20:50] VITALS: RESP 16
[2025-04-30] MEDS: OLANZapine ODT 10 MG TAB.RAPDIS 20 MG TRANSLINGU (23:36)
[2025-05-01 07:52] VITALS: BP 137/73; PULSE 97; RESP 16; TEMP 36.8; O2SAT 100
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
[2025-05-01 20:00] VITALS: RESP 16
[2025-05-01] MEDS: OLANZapine ODT 10 MG TAB.RAPDIS 20 MG TRANSLINGU (23:33)
[2025-05-02 07:52] VITALS: BP 133/63; PULSE 99; RESP 16; TEMP 36.8; O2SAT 100
--- NOTE | 2025-05-02 12:28 | HO.PM.IMPN ---
Subjective Subjective Date of Service: 05/02/25 Interval History: Patient is reporting pain in his right lower jaw, he has a very large cavity, no surrounding redness or swelling in his gumline. No lymphadenopathy. No ear pain or jaw pain or swelling. Patient reports pain has persisted for about 1 week. Takig Ibuprofen with relief. On exam he denies any other concerns. Denies fever or chills. Review of Systems Denies any shortness of breath, chest pain, dizziness, lightheadedness, abdominal pain or discomfort, nausea vomiting or diarrhea. + Mouth pain Physical Exam Vital Signs: Vital Signs: Last Vital Signs Temp 98.2 F 05/02/25 07:52 Pulse 99 05/02/25 07:52 Resp 16 05/02/25 07:52 BP 133/63 05/02/25 07:52 Pulse Ox 100 05/02/25 07:52 O2 Del Method Room Air 05/02/25 07:52 BMI result Body Mass Index 19.6 CONST: Alert and oriented, in NAD. Well nourished HEENT: Normocephalic, atraumatic, MMM, Eyes clear, Neck supple. Large cavity in lower right molar. RESP: Lungs clear, RRR even and regular HEART:,RRR, S1, S2. no edema GI:Abdomen Soft NT, ND. + BS times four :Deferred SKIN: Warm dry and intact, no visible lesions or rashes NEURO:CN II-XII Intact bilaterally, Sensation intact. Speech clear PSYCH: Normal affect Objective Data Active Medications Acetaminophen (Acetaminophen 325 Mg Tablet) 650 mg PO Q6H PRN PRN Reason: Headache/Pain, Scale 1-10 Last Admin: 04/01/25 23:20 Dose: 650 mg Documented By: YEIMI Al Hydroxide/Mg Hydroxide (Magnesium Hydrox/Alum Hydrox 30 Ml Oral.Susp) 30 ml PO Q6H PRN PRN Reason: Heartburn/Nausea Benzocaine (Benzocaine 20 % Oral Gel 14 Gm Tube) 1 appl MUCOUS MEM QID PRN; Protocol PRN Reason: Mouth Sore Pain Last Admin: 04/26/25 18:33 Dose: 1 appl Documented By: ERICK Diazepam (Diazepam 10 Mg/2 Ml Cartridge) 10 mg IM BID PRN PRN Reason: refusal of lithium, per everett Last Admin: 04/11/25 09:56 Dose: 10 mg Documented By: ERICK Haloperidol (Haloperidol 5 Mg Tablet) 5 mg PO Q4H PRN PRN Reason: agitation Hydroxyzine HCl (Hydroxyzine Hcl 25 Mg Tablet) 25 mg PO Q6H PRN PRN Reason: mild anxiety Ibuprofen (Ibuprofen 800 Mg Tablet) 800 mg PO Q6H PRN PRN Reason: pain (pain scale 1-10) Last Admin: 05/02/25 11:04 Dose: 800 mg Documented By: KIKI [place] Carbonate ([place] Carbonate Er 300 Mg Tablet.Er) 600 mg PO BID ON LICENSE OF [facility] Last Admin: 05/02/25 09:59 Dose: 600 mg Documented By: KIKI Magnesium Hydroxide (Milk Of Magnesia 30 Ml Oral.Susp) 30 ml PO DAILY PRN PRN Reason: Constipation Methimazole (Methimazole 10 Mg Tablet) 20 mg PO DAILY ON LICENSE OF [facility] Last Admin: 05/02/25 09:59 Dose: 20 mg Documented By: KIKI Nicotine (Nicotine 21 Mg Patch.Td24) 21 mg TRANSDERMA DAILY PRN PRN Reason: nicotine cravings Last Admin: 04/12/25 17:06 Dose: 21 mg Documented By: LUCY Nicotine Polacrilex (Nicotine Polacrilex Lozenge 2 Mg Lozenge) 2 mg BUCCAL Q1H PRN PRN Reason: Nicotine Cravings Last Admin: 04/30/25 08:49 Dose: 2 mg Documented By: SUSAN Patient Own Medication Excedrin 250/250/65mg 2 each PO Q8H PRN PRN Reason: Migraine Headache Last Admin: 04/18/25 18:03 Dose: 2 each Documented By: ERICK Olanzapine (Olanzapine 10 Mg Vial) 10 mg IM BID PRN PRN Reason: refusal of PO, per maria luz's ord Last Admin: 04/11/25 09:56 Dose: 10 mg Documented By: ERICK Olanzapine (Olanzapine Odt 10 Mg Tab.Rapdis) 20 mg TRANSLINGU BEDTIME ON LICENSE OF [facility] Last Admin: 05/01/25 23:33 Dose: 20 mg Documented By: SANJAY Quetiapine Fumarate (Quetiapine Fumarate 200 Mg Tablet) 200 mg PO BEDTIME PRN PRN Reason: insomnia Last Admin: 04/16/25 04:21 Dose: 200 mg Documented By: YEIMI Labs 03/27/25 09:44 04/22/25 20:29 Assessment and Plan (1) Dental abscess: Status: Acute Plan Carious tooth/dental infection Treat with PEN VK 500 mg q.6 hours for 7 days Patient will need follow up with dentist on discharge for tooth extraction Thank you for allowing me to participate in the care of this patient. Signing off at this time. Please reconsult of any acute concerns or issues arise Quality Stroke Does the patient have a stroke diagnosis?: No VTE Prior VTE?: No VTE Risk Level:: Medical - low VTE Device Contraindication: Treatment Not Indicated VTE Drug Contraindication: Treatment Not Indicated
--- NOTE | 2025-05-02 13:45 | P.PNPSI_ITS ---
Subjective Subjective Date of Service: 05/02/25 Reason For Visit: psychotic disorder Interim History: calm, cooperative. feels proptosis improving. no aggression or criticism toward MD or other. BPs reviewed, noted to be coming down, MD agrees to DC propranolol and MVI per pt request. c/o dental pain. per staff, denies anx/dep. refusing BP med and MVI. taking meds otherwise. slept through the night, about 6 hours. Mental Status Exam Mental Status Exam Narrative: very tall and thin. adequately dressed and groomed. exopthalmos. cooperative and calm. affect hyper-intense, non-labile. mood euthymic. no SI/AVH expressed. Diagnostics Vital Signs (24Hr): Vital Signs - 24 hr 05/01/25 20:00 05/02/25 07:52 Temperature 98.2 F Pulse Rate 99 Respiratory Rate 16 16 Blood Pressure 133/63 Pulse Oximetry 100 Oxygen Delivery Method Room Air BMI result Body Mass Index 19.6 Labs 03/27/25 09:44 04/22/25 20:29 Medications Medications Current Medications Acetaminophen (Acetaminophen 325 Mg Tablet) 650 mg PO Q6H PRN PRN Reason: Headache/Pain, Scale 1-10 Last Admin: 04/01/25 23:20 Dose: 650 mg Al Hydroxide/Mg Hydroxide (Magnesium Hydrox/Alum Hydrox 30 Ml Oral.Susp) 30 ml PO Q6H PRN PRN Reason: Heartburn/Nausea Benzocaine (Benzocaine 20 % Oral Gel 14 Gm Tube) 1 appl MUCOUS MEM QID PRN; Protocol PRN Reason: Mouth Sore Pain Last Admin: 04/26/25 18:33 Dose: 1 appl Diazepam (Diazepam 10 Mg/2 Ml Cartridge) 10 mg IM BID PRN PRN Reason: refusal of lithium, per everett Last Admin: 04/11/25 09:56 Dose: 10 mg Haloperidol (Haloperidol 5 Mg Tablet) 5 mg PO Q4H PRN PRN Reason: agitation Hydroxyzine HCl (Hydroxyzine Hcl 25 Mg Tablet) 25 mg PO Q6H PRN PRN Reason: mild anxiety Ibuprofen (Ibuprofen 800 Mg Tablet) 800 mg PO Q6H PRN PRN Reason: pain (pain scale 1-10) Last Admin: 05/02/25 11:04 Dose: 800 mg [place] Carbonate ([place] Carbonate Er 300 Mg Tablet.Er) 600 mg PO BID [facility] Last Admin: 05/02/25 09:59 Dose: 600 mg Magnesium Hydroxide (Milk Of Magnesia 30 Ml Oral.Susp) 30 ml PO DAILY PRN PRN Reason: Constipation Methimazole (Methimazole 10 Mg Tablet) 20 mg PO DAILY [facility] Last Admin: 05/02/25 09:59 Dose: 20 mg Nicotine (Nicotine 21 Mg Patch.Td24) 21 mg TRANSDERMA DAILY PRN PRN Reason: nicotine cravings Last Admin: 04/12/25 17:06 Dose: 21 mg Nicotine Polacrilex (Nicotine Polacrilex Lozenge 2 Mg Lozenge) 2 mg BUCCAL Q1H PRN PRN Reason: Nicotine Cravings Last Admin: 04/30/25 08:49 Dose: 2 mg Patient Own Medication Excedrin 250/250/65mg 2 each PO Q8H PRN PRN Reason: Migraine Headache Last Admin: 04/18/25 18:03 Dose: 2 each Olanzapine (Olanzapine 10 Mg Vial) 10 mg IM BID PRN PRN Reason: refusal of PO, per maria luz's ord Last Admin: 04/11/25 09:56 Dose: 10 mg Olanzapine (Olanzapine Odt 10 Mg Tab.Rapdis) 20 mg TRANSLINGU BEDTIME [facility] Last Admin: 05/01/25 23:33 Dose: 20 mg Quetiapine Fumarate (Quetiapine Fumarate 200 Mg Tablet) 200 mg PO BEDTIME PRN PRN Reason: insomnia Last Admin: 04/16/25 04:21 Dose: 200 mg Allergies Allergies Allergy/AdvReac Type Severity Reaction Status Date / Time No Known Allergies Allergy Verified 03/26/25 14:24 Assessment & Plan Assessment & Plan (1) Schizophrenia: Status: Acute Code(s): F20.9 - Schizophrenia, unspecified Plan 03/26: offer lithium and seroquel for becca. continue methimazole and beta joanne for hyperthyroidism as started at [facility]. trend TFTs. 12b. 03/27: taking methimazole and beta joanne. refused HS meds last night, took morning meds today. continue to encourage medication compliance. 03/28: intermittently taking meds. wants all meds in morning. pressured, manic, paranoid delusions. encouraged to take lithium but states he will not. all meds ordered for morning. 03/29: Keeping to self. no groups. observed laying in bed listening to music on unit headphones. pleasant. Pt reports feeling good today and sleeping well. declined lithium and zyprexa. denies SI/HI/VH/AH. continue current tx plan. 03/30:Irritable. upset he was unable to use his personal hygiene products. Per nursing, pt threatened staff and squeezed tooth paste throughout unit hallway to show his frustration. Pt was able to calm down after speaking with security. declined medications. 03/31: Keeping to self. laying in bed listening to music. refused medications. calm today. Patient reports feeling great ; pt stated, nothing is wrong with me. I'm waiting so I can leave tomorrow. I'm hoping for the best . denies SI/HI/VH/AH. per nursing, slept 6 hours. Continue current tx plan. 04/01: variably calm on the unit versus highly agitated. paranoid delusions, irritability, lability continue. seems to believe MD has met him prior to the present hospitalization and is stalking him. believes brother behind conspiracy to have him psychiatrically hospitalized. has been refusing all medications, including for hyperthyroidism. informed he would be filed on. filed. continue to offer medications. 04/02: continues agitated, belittling, verbally aggressive, refusing all medications including for hyperthyroidism. continue to offer medication. 04/03: paranoid there is a conspiracy to hospitalize him. threatening to stick a stick in staff once he is released by [employer]. insists his hyperthyroidism was cured at [facility]. asserts there is NOTHING wrong with him. continue to offer medication. 04/04: irritable, rejecting. verbally abuses MD and sends him away: see you on monday [in court]. continue to offer medication for thyroid condition and mental illness. 04/05 continue tx. suspicious and guarded, accusatory, verbal threats to hurt staff and peers 04/06 intrusive, posturing towards staff and peer who he thinks is not real and is an impostor, continues to make verbal threats to harm him but thinks that because he is not real he may not experience any pain. 04/07: threatening statements and behaviors of yesterday noted. pt sleeping this morning, dismissive of MD. 04/08: asleep days. committed and meds ordered by court. 04/09: on being informed of court order and MD insisting on meds, pt escalated to hurling food item in container against wall at high speed and saying he wished he could do the same to MD's head. pt eventually took court ordered meds PO. sensodyne and excedrin not available in pharmacy (pt requesting them). 04/10: continue tx. Pt accepting medication today. 04/11: Keeping to self. Lying in bed most of morning. Declined to meet with T/W. Pt stated, I'm fine. I don't need anything . Listening to headphones in room. Declined court ordered PO medications; received IM medications. Refused vital signs.continue tx plan. 04/12: got IMs yesterday, took PO this morning. sleepy, no concerns or complaints. 04/13: taking PO meds again. slept 7 hours. sleepy again mid morning refusing interview. continue current mgmt. 04/14: sleeping, rousable. denies being sedated or tired, says he's just bored. no questions or complaints. informed of need to check labs. check lithium level and thyroid labs tonight. 04/15: refusing labs. delusional re his brother harming him. verbally abusive toward MD. spat in floor. happy with improvement in proptosis. 04/16: Lying in bed. Calm. cooperative. guarded. Pt reports feeling tired this morning d/t poor sleep last night. Pt stated, I don't need anything. I didn't sleep well so I'm trying to catch up . denies any issues at this time. denies SI/HI/VH/AH. Continue current tx plan. 04/17: more calm today, less explosive. continue current mgmt. 04/18: continues more calm. tolerating moments of frustration without verbally attacking MD. slept only 2 hours overnight, however. continue current mgmt. 04/19 continues to push boundaries and limits with staff mike around cell phone- 04/20 - aggressive with staff and unpredictable- threw water pitcher at staff behind desk/-when seen by provider passive in bed-denying all compaints/sys- no insight 04/21: appears as per last week. more difficult behaviors around cell phone use, did throw pitcher of water at RN monday over phone use and was restrained. continue current mgmt. 04/22: continues to have conflict around cell phone use. consolidate zyprexa at HS to decrease daytime sedation. 1:1 allegra shift until peer he is accusing of not being a real patient and appears to be targeting discharges tomorrow. 04/23: lithium 0.6 on 600 BID. sleeping better, remains delusional (telling SW who is marginally younger than him that she could be his daughter). just changed zyprexa dosing as of last night. continue current regimen and observe for continued stabilization. T/C slight increase in lithium dosing. 04/24: Laying in bed. guarded. calm. did not want to get out of bed to meet with T/W. Pt reports feeling great today but declined to go into detail. listening to music on unit headphones. Pt stated, I'm fine. I don't need anything . denies any issues at this time. denies SI/HI/VH/AH. Continue current tx plan. 04/25: Laying in bed. keeping to self. calm. paranoid. Discussed incident that occurred with staff last evening. Pt stated, the counselor made up a lie yesterday. I said she looks like my ex-girlfriend. I know they are related. They want to make up a lie to irritate me. They are trying to talk to me so they can use recording devices and make me look some kind of way . listening to music on unit headphones. denies SI/HI/VH/AH. Continue current tx plan. 04/26: Continue current regimen and plans. Increase Zyprexa 20 mg q.h.s. fresh air break withheld 04/27: Continue current regimen and plans 04/28: somewhat less irritable and agitated than last week. however, over the weekend was claiming he was the father of a footballer on TV and also that a staff member is a twin of his ex-GF (and he pushed staff member). TFTs improving. continue current mgmt. 04/29: no change in presentation. continue current mgmt. 04/30: no irritable edge today. calm, pleasant. engaging in small talk. reality testing not pressed. continue current mgmt for now. 05/01: no change in presentation. continue current mgmt. 05/02: BPs coming down, DC beta joanne as pt has been refusing anyway. remains not antagonistic toward MD. using phone appropriately. continue current mgmt otherwise. Reason for continued inpatient stay Substantial Risk for: harm to self, harm to others, inability to function and rapid decompensation Time Spent With Patient Time: Total time managing care of this patient today __25__ minutes.
[2025-05-02 20:00] VITALS: RESP 16
[2025-05-02] MEDS: OLANZapine ODT 10 MG TAB.RAPDIS 20 MG TRANSLINGU (22:30)
--- NOTE | 2025-05-03 11:09 | P.PNPSI_ITS ---
Subjective Subjective Date of Service: 05/03/25 Reason For Visit: psychotic disorder Subjective Notes: Section 8 Interim History: Pt slept all night. He is visible on the unit. He recognized this television writer from early in his hospital stay. He reports he is doing well. He tells this television writer he is glad he got psychiatric help. He appears less paranoid, does hope he is discharged soon. No SI/HI. taking medications. Medication Compliance: Yes Review of Systems Review of Systems Denies any shortness of breath, chest pain, dizziness, lightheadedness, abdominal pain or discomfort, nausea vomiting or diarrhea. + Mouth pain Yes all other systems are reviewed and are negative Mental Status Exam Mental Status Exam Narrative: very tall and thin. adequately dressed and groomed. exopthalmos. cooperative and calm. affect hyper-intense, non-labile. mood euthymic. no SI/AVH expressed. Diagnostics Vital Signs (24Hr): Vital Signs - 24 hr 05/02/25 20:00 Respiratory Rate 16 BMI result Body Mass Index 19.6 Labs 03/27/25 09:44 04/22/25 20:29 Medications Medications Current Medications Acetaminophen (Acetaminophen 325 Mg Tablet) 650 mg PO Q6H PRN PRN Reason: Headache/Pain, Scale 1-10 Last Admin: 04/01/25 23:20 Dose: 650 mg Al Hydroxide/Mg Hydroxide (Magnesium Hydrox/Alum Hydrox 30 Ml Oral.Susp) 30 ml PO Q6H PRN PRN Reason: Heartburn/Nausea Benzocaine (Benzocaine 20 % Oral Gel 14 Gm Tube) 1 appl MUCOUS MEM QID PRN; Protocol PRN Reason: Mouth Sore Pain Last Admin: 04/26/25 18:33 Dose: 1 appl Diazepam (Diazepam 10 Mg/2 Ml Cartridge) 10 mg IM BID PRN PRN Reason: refusal of lithiummary Last Admin: 04/11/25 09:56 Dose: 10 mg Haloperidol (Haloperidol 5 Mg Tablet) 5 mg PO Q4H PRN PRN Reason: agitation Hydroxyzine HCl (Hydroxyzine Hcl 25 Mg Tablet) 25 mg PO Q6H PRN PRN Reason: mild anxiety Ibuprofen (Ibuprofen 800 Mg Tablet) 800 mg PO Q6H PRN PRN Reason: pain (pain scale 1-10) Last Admin: 05/03/25 10:20 Dose: 800 mg [place] Carbonate ([place] Carbonate Er 300 Mg Tablet.Er) 600 mg PO BID [facility] Last Admin: 05/03/25 09:55 Dose: 600 mg Magnesium Hydroxide (Milk Of Magnesia 30 Ml Oral.Susp) 30 ml PO DAILY PRN PRN Reason: Constipation Methimazole (Methimazole 10 Mg Tablet) 20 mg PO DAILY [facility] Last Admin: 05/03/25 09:56 Dose: 20 mg Nicotine (Nicotine 21 Mg Patch.Td24) 21 mg TRANSDERMA DAILY PRN PRN Reason: nicotine cravings Last Admin: 04/12/25 17:06 Dose: 21 mg Nicotine Polacrilex (Nicotine Polacrilex Lozenge 2 Mg Lozenge) 2 mg BUCCAL Q1H PRN PRN Reason: Nicotine Cravings Last Admin: 04/30/25 08:49 Dose: 2 mg Patient Own Medication Excedrin 250/250/65mg 2 each PO Q8H PRN PRN Reason: Migraine Headache Last Admin: 04/18/25 18:03 Dose: 2 each Olanzapine (Olanzapine 10 Mg Vial) 10 mg IM BID PRN PRN Reason: refusal of PO, per maria luz's ord Last Admin: 04/11/25 09:56 Dose: 10 mg Olanzapine (Olanzapine Odt 10 Mg Tab.Rapdis) 20 mg TRANSLINGU BEDTIME [facility] Last Admin: 05/02/25 22:30 Dose: 20 mg Penicillin V Potassium (Penicillin V Potassium 250 Mg Tablet) 500 mg PO QID [facility] Last Admin: 05/03/25 09:55 Dose: 500 mg Quetiapine Fumarate (Quetiapine Fumarate 200 Mg Tablet) 200 mg PO BEDTIME PRN PRN Reason: insomnia Last Admin: 04/16/25 04:21 Dose: 200 mg Allergies Allergies Allergy/AdvReac Type Severity Reaction Status Date / Time No Known Allergies Allergy Verified 03/26/25 14:24 Assessment & Plan Assessment & Plan (1) Schizophrenia: Status: Acute Code(s): F20.9 - Schizophrenia, unspecified Plan 03/26: offer lithium and seroquel for becca. continue methimazole and beta joanne for hyperthyroidism as started at [facility]. trend TFTs. 12b. 03/27: taking methimazole and beta joanne. refused HS meds last night, took morning meds today. continue to encourage medication compliance. 03/28: intermittently taking meds. wants all meds in morning. pressured, manic, paranoid delusions. encouraged to take lithium but states he will not. all meds ordered for morning. 03/29: Keeping to self. no groups. observed laying in bed listening to music on unit headphones. pleasant. Pt reports feeling good today and sleeping well. declined lithium and zyprexa. denies SI/HI/VH/AH. continue current tx plan. 03/30:Irritable. upset he was unable to use his personal hygiene products. Per nursing, pt threatened staff and squeezed tooth paste throughout unit hallway to show his frustration. Pt was able to calm down after speaking with security. declined medications. 03/31: Keeping to self. laying in bed listening to music. refused medications. calm today. Patient reports feeling great ; pt stated, nothing is wrong with me. I'm waiting so I can leave tomorrow. I'm hoping for the best . denies SI/HI/VH/AH. per nursing, slept 6 hours. Continue current tx plan. 04/01: variably calm on the unit versus highly agitated. paranoid delusions, irritability, lability continue. seems to believe MD has met him prior to the present hospitalization and is stalking him. believes brother behind conspiracy to have him psychiatrically hospitalized. has been refusing all medications, including for hyperthyroidism. informed he would be filed on. filed. continue to offer medications. 04/02: continues agitated, belittling, verbally aggressive, refusing all medications including for hyperthyroidism. continue to offer medication. 04/03: paranoid there is a conspiracy to hospitalize him. threatening to stick a stick in staff once he is released by nailing machine operator. insists his hyperthyroidism was cured at [facility]. asserts there is NOTHING wrong with him. continue to offer medication. 04/04: irritable, rejecting. verbally abuses MD and sends him away: see you on monday [in court]. continue to offer medication for thyroid condition and mental illness. 04/05 continue tx. suspicious and guarded, accusatory, verbal threats to hurt staff and peers 04/06 intrusive, posturing towards staff and peer who he thinks is not real and is an impostor, continues to make verbal threats to harm him but thinks that because he is not real he may not experience any pain. 04/07: threatening statements and behaviors of yesterday noted. pt sleeping this morning, dismissive of MD. 04/08: asleep days. committed and meds ordered by court. 04/09: on being informed of court order and MD insisting on meds, pt escalated to hurling food item in container against wall at high speed and saying he wished he could do the same to MD's head. pt eventually took court ordered meds PO. sensodyne and excedrin not available in pharmacy (pt requesting them). 04/10: continue tx. Pt accepting medication today. 04/11: Keeping to self. Lying in bed most of morning. Declined to meet with T/W. Pt stated, I'm fine. I don't need anything . Listening to headphones in room. Declined court ordered PO medications; received IM medications. Refused vital signs.continue tx plan. 04/12: got IMs yesterday, took PO this morning. sleepy, no concerns or complaints. 04/13: taking PO meds again. slept 7 hours. sleepy again mid morning refusing interview. continue current mgmt. 04/14: sleeping, rousable. denies being sedated or tired, says he's just bored. no questions or complaints. informed of need to check labs. check lithium level and thyroid labs tonight. 04/15: refusing labs. delusional re his brother harming him. verbally abusive toward MD. spat in floor. happy with improvement in proptosis. 04/16: Lying in bed. Calm. cooperative. guarded. Pt reports feeling tired this morning d/t poor sleep last night. Pt stated, I don't need anything. I didn't sleep well so I'm trying to catch up . denies any issues at this time. denies SI/HI/VH/AH. Continue current tx plan. 04/17: more calm today, less explosive. continue current mgmt. 04/18: continues more calm. tolerating moments of frustration without verbally attacking MD. slept only 2 hours overnight, however. continue current mgmt. 04/19 continues to push boundaries and limits with staff mike around cell phone- 04/20 - aggressive with staff and unpredictable- threw water pitcher at staff behind desk/-when seen by provider passive in bed-denying all compaints/sys- no insight 04/21: appears as per last week. more difficult behaviors around cell phone use, did throw pitcher of water at RN monday over phone use and was restrained. continue current mgmt. 04/22: continues to have conflict around cell phone use. consolidate zyprexa at HS to decrease daytime sedation. 1:1 allegra shift until peer he is accusing of not being a real patient and appears to be targeting discharges tomorrow. 04/23: lithium 0.6 on 600 BID. sleeping better, remains delusional (telling SW who is marginally younger than him that she could be his daughter). just changed zyprexa dosing as of last night. continue current regimen and observe for continued stabilization. T/C slight increase in lithium dosing. 04/24: Laying in bed. guarded. calm. did not want to get out of bed to meet with T/W. Pt reports feeling great today but declined to go into detail. listening to music on unit headphones. Pt stated, I'm fine. I don't need anything . denies any issues at this time. denies SI/HI/VH/AH. Continue current tx plan. 04/25: Laying in bed. keeping to self. calm. paranoid. Discussed incident that occurred with staff last evening. Pt stated, the counselor made up a lie yesterday. I said she looks like my ex-girlfriend. I know they are related. They want to make up a lie to irritate me. They are trying to talk to me so they can use recording devices and make me look some kind of way . listening to music on unit headphones. denies SI/HI/VH/AH. Continue current tx plan. 04/26: Continue current regimen and plans. Increase Zyprexa 20 mg q.h.s. fresh air break withheld 04/27: Continue current regimen and plans 04/28: somewhat less irritable and agitated than last week. however, over the weekend was claiming he was the father of a footballer on TV and also that a staff member is a twin of his ex-GF (and he pushed staff member). TFTs improving. continue current mgmt. 04/29: no change in presentation. continue current mgmt. 04/30: no irritable edge today. calm, pleasant. engaging in small talk. reality testing not pressed. continue current mgmt for now. 05/01: no change in presentation. continue current mgmt. 05/02: BPs coming down, DC beta joanne as pt has been refusing anyway. remains not antagonistic toward MD. using phone appropriately. continue current mgmt otherwise. 05/03 continue Reason for continued inpatient stay Substantial Risk for: inability to function Time Spent With Patient Time: Total time managing care of this patient today ____ minutes.
[2025-05-03 20:00] VITALS: RESP 16
[2025-05-03] MEDS: OLANZapine ODT 10 MG TAB.RAPDIS 20 MG TRANSLINGU (22:27)
--- NOTE | 2025-05-04 17:47 | P.PNPSI_ITS ---
Subjective Subjective Date of Service: 05/04/25 Reason For Visit: psychotic disorder Subjective Notes: Section 8 Interim History: Pt slept all night. He is visible on the unit. He recognized this commercial lines underwriter from early in his hospital stay. He reports he is doing well. He tells this commercial lines underwriter he is glad he got psychiatric help. He appears less paranoid, does hope he is discharged soon. No SI/HI. taking medications. He did have episode last night of increase suspiciousness towards staff he was paranoid initially. No aggression nor combative behaviors. Review of Systems Review of Systems Denies any shortness of breath, chest pain, dizziness, lightheadedness, abdominal pain or discomfort, nausea vomiting or diarrhea. + Mouth pain Yes all other systems are reviewed and are negative Mental Status Exam Mental Status Exam Narrative: very tall and thin. adequately dressed and groomed. exopthalmos. cooperative and calm. affect hyper-intense, non-labile. mood euthymic. no SI/AVH expressed. Diagnostics Vital Signs (24Hr): Vital Signs - 24 hr 05/03/25 20:00 Respiratory Rate 16 BMI result Body Mass Index 19.6 Labs 03/27/25 09:44 04/22/25 20:29 Medications Medications Current Medications Acetaminophen (Acetaminophen 325 Mg Tablet) 650 mg PO Q6H PRN PRN Reason: Headache/Pain, Scale 1-10 Last Admin: 04/01/25 23:20 Dose: 650 mg Al Hydroxide/Mg Hydroxide (Magnesium Hydrox/Alum Hydrox 30 Ml Oral.Susp) 30 ml PO Q6H PRN PRN Reason: Heartburn/Nausea Benzocaine (Benzocaine 20 % Oral Gel 14 Gm Tube) 1 appl MUCOUS MEM QID PRN; Protocol PRN Reason: Mouth Sore Pain Last Admin: 04/26/25 18:33 Dose: 1 appl Diazepam (Diazepam 10 Mg/2 Ml Cartridge) 10 mg IM BID PRN PRN Reason: refusal of lithiummary Last Admin: 04/11/25 09:56 Dose: 10 mg Haloperidol (Haloperidol 5 Mg Tablet) 5 mg PO Q4H PRN PRN Reason: agitation Hydroxyzine HCl (Hydroxyzine Hcl 25 Mg Tablet) 25 mg PO Q6H PRN PRN Reason: mild anxiety Ibuprofen (Ibuprofen 800 Mg Tablet) 800 mg PO Q6H PRN PRN Reason: pain (pain scale 1-10) Last Admin: 05/04/25 15:07 Dose: 800 mg [place] Carbonate ([place] Carbonate Er 300 Mg Tablet.Er) 600 mg PO BID [facility] Last Admin: 05/04/25 09:54 Dose: 600 mg Magnesium Hydroxide (Milk Of Magnesia 30 Ml Oral.Susp) 30 ml PO DAILY PRN PRN Reason: Constipation Methimazole (Methimazole 10 Mg Tablet) 20 mg PO DAILY [facility] Last Admin: 05/04/25 09:54 Dose: 20 mg Nicotine (Nicotine 21 Mg Patch.Td24) 21 mg TRANSDERMA DAILY PRN PRN Reason: nicotine cravings Last Admin: 04/12/25 17:06 Dose: 21 mg Nicotine Polacrilex (Nicotine Polacrilex Lozenge 2 Mg Lozenge) 2 mg BUCCAL Q1H PRN PRN Reason: Nicotine Cravings Last Admin: 04/30/25 08:49 Dose: 2 mg Patient Own Medication Excedrin 250/250/65mg 2 each PO Q8H PRN PRN Reason: Migraine Headache Last Admin: 04/18/25 18:03 Dose: 2 each Olanzapine (Olanzapine 10 Mg Vial) 10 mg IM BID PRN PRN Reason: refusal of PO, per maria luz's ord Last Admin: 04/11/25 09:56 Dose: 10 mg Olanzapine (Olanzapine Odt 10 Mg Tab.Rapdis) 20 mg TRANSLINGU BEDTIME [facility] Last Admin: 05/03/25 22:27 Dose: 20 mg Penicillin V Potassium (Penicillin V Potassium 250 Mg Tablet) 500 mg PO QID [facility] Last Admin: 05/04/25 13:44 Dose: 500 mg Quetiapine Fumarate (Quetiapine Fumarate 200 Mg Tablet) 200 mg PO BEDTIME PRN PRN Reason: insomnia Last Admin: 04/16/25 04:21 Dose: 200 mg Allergies Allergies Allergy/AdvReac Type Severity Reaction Status Date / Time No Known Allergies Allergy Verified 03/26/25 14:24 Assessment & Plan Assessment & Plan (1) Dental abscess: Status: Acute Code(s): K04.7 - Periapical abscess without sinus (2) Schizophrenia: Status: Acute Code(s): F20.9 - Schizophrenia, unspecified Reason for continued inpatient stay Substantial Risk for: inability to function Time Spent With Patient Time: Total time managing care of this patient today ____ minutes.
[2025-05-04 19:40] VITALS: BP 141/75; PULSE 91; RESP 16; TEMP 37.1; O2SAT 99
[2025-05-04] MEDS: OLANZapine ODT 10 MG TAB.RAPDIS 20 MG TRANSLINGU (23:36)
[2025-05-05 07:30] VITALS: BP 140/76; PULSE 95; RESP 18; TEMP 36.9; O2SAT 100
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
[2025-05-05 20:40] VITALS: RESP 16
[2025-05-05] MEDS: OLANZapine ODT 10 MG TAB.RAPDIS 20 MG TRANSLINGU (23:32)
[2025-05-06 08:00] VITALS: BP 142/73; PULSE 100; RESP 16; TEMP 36.6; O2SAT 98
--- NOTE | 2025-05-06 15:20 | HO.PSYCHPN ---
Subjective Subjective Date of Service: 05/06/25 Reason For Visit: psychotic disorder Interim History: in bed or walking the unit. declines to meet with MD, agrees to speak with medical student. per medical student, pt remains upset about interaction yesterday. paranoid delusions re his brother continue. per staff, denies Sx. taking meds. pacing. cheerful. no changes. slept about 6 hours. Mental Status Exam Mental Status Exam Narrative: very tall and thin. adequately dressed and groomed. exopthalmos. not cooperative. calm. affect normo-intense, non-labile. mood irritable. no SI/AVH expressed. Diagnostics Vital Signs (24Hr): Vital Signs - 24 hr 05/05/25 20:40 05/06/25 08:00 Temperature 97.8 F Pulse Rate 100 Respiratory Rate 16 16 Blood Pressure 142/73 H Pulse Oximetry 98 Oxygen Delivery Method Room Air BMI result Body Mass Index 19.6 Labs 03/27/25 09:44 04/22/25 20:29 Medications Medications Current Medications Acetaminophen (Acetaminophen 325 Mg Tablet) 650 mg PO Q6H PRN PRN Reason: Headache/Pain, Scale 1-10 Last Admin: 04/01/25 23:20 Dose: 650 mg Al Hydroxide/Mg Hydroxide (Magnesium Hydrox/Alum Hydrox 30 Ml Oral.Susp) 30 ml PO Q6H PRN PRN Reason: Heartburn/Nausea Benzocaine (Benzocaine 20 % Oral Gel 14 Gm Tube) 1 appl MUCOUS MEM QID PRN; Protocol PRN Reason: Mouth Sore Pain Last Admin: 04/26/25 18:33 Dose: 1 appl Diazepam (Diazepam 10 Mg/2 Ml Cartridge) 10 mg IM BID PRN PRN Reason: refusal of lithium, mary floyd Last Admin: 04/11/25 09:56 Dose: 10 mg Haloperidol (Haloperidol 5 Mg Tablet) 5 mg PO Q4H PRN PRN Reason: agitation Hydroxyzine HCl (Hydroxyzine Hcl 25 Mg Tablet) 25 mg PO Q6H PRN PRN Reason: mild anxiety Ibuprofen (Ibuprofen 800 Mg Tablet) 800 mg PO Q6H PRN PRN Reason: pain (pain scale 1-10) Last Admin: 05/06/25 12:34 Dose: 800 mg [place] Carbonate ([place] Carbonate Er 300 Mg Tablet.Er) 600 mg PO BID [facility] Last Admin: 05/06/25 08:59 Dose: 600 mg Magnesium Hydroxide (Milk Of Magnesia 30 Ml Oral.Susp) 30 ml PO DAILY PRN PRN Reason: Constipation Methimazole (Methimazole 10 Mg Tablet) 20 mg PO DAILY [facility] Last Admin: 05/06/25 08:59 Dose: 20 mg Nicotine (Nicotine 21 Mg Patch.Td24) 21 mg TRANSDERMA DAILY PRN PRN Reason: nicotine cravings Last Admin: 04/12/25 17:06 Dose: 21 mg Nicotine Polacrilex (Nicotine Polacrilex Lozenge 2 Mg Lozenge) 2 mg BUCCAL Q1H PRN PRN Reason: Nicotine Cravings Last Admin: 04/30/25 08:49 Dose: 2 mg Patient Own Medication Excedrin 250/250/65mg 2 each PO Q8H PRN PRN Reason: Migraine Headache Last Admin: 04/18/25 18:03 Dose: 2 each Olanzapine (Olanzapine 10 Mg Vial) 10 mg IM BID PRN PRN Reason: refusal of PO, per maria luz's ord Last Admin: 04/11/25 09:56 Dose: 10 mg Olanzapine (Olanzapine Odt 10 Mg Tab.Rapdis) 20 mg TRANSLINGU BEDTIME [facility] Last Admin: 05/05/25 23:32 Dose: 20 mg Penicillin V Potassium (Penicillin V Potassium 250 Mg Tablet) 500 mg PO QID [facility] Last Admin: 05/06/25 12:34 Dose: 500 mg Quetiapine Fumarate (Quetiapine Fumarate 200 Mg Tablet) 200 mg PO BEDTIME PRN PRN Reason: insomnia Last Admin: 04/16/25 04:21 Dose: 200 mg Allergies Allergies Allergy/AdvReac Type Severity Reaction Status Date / Time No Known Allergies Allergy Verified 03/26/25 14:24 Assessment & Plan Assessment & Plan (1) Dental abscess: Status: Acute Code(s): K04.7 - Periapical abscess without sinus (2) Schizophrenia: Status: Acute Code(s): F20.9 - Schizophrenia, unspecified Plan 03/26: offer lithium and seroquel for becca. continue methimazole and beta joanne for [place] [facility] [place]s. 12b. 03/27: taking methimazole and beta joanne. refused HS meds last night, took morning meds today. continue to encourage medication compliance. 03/28: intermittently taking meds. wants all meds in morning. pressured, manic, paranoid delusions. encouraged to take lithium but states he will not. all meds ordered for morning. 03/29: Keeping to self. no groups. observed laying in bed listening to music on unit headphones. pleasant. Pt reports feeling good today and sleeping well. declined lithium and zyprexa. denies SI/HI/VH/AH. continue current tx plan. 03/30:Irritable. upset he was unable to use his personal hygiene products. Per nursing, pt threatened staff and squeezed tooth paste throughout unit hallway to show his frustration. Pt was able to calm down after speaking with security. declined medications. 03/31: Keeping to self. laying in bed listening to music. refused medications. calm today. Patient reports feeling great ; pt stated, nothing is wrong with me. I'm waiting so I can leave tomorrow. I'm hoping for the best . denies SI/HI/VH/AH. per nursing, slept 6 hours. Continue current tx plan. 04/01: variably calm on the unit versus highly agitated. paranoid delusions, irritability, lability continue. seems to believe MD has met him prior to the present hospitalization and is stalking him. believes brother behind conspiracy to have him psychiatrically hospitalized. has been refusing all medications, including for hyperthyroidism. informed he would be filed on. filed. continue to offer medications. 04/02: continues agitated, belittling, verbally aggressive, refusing all medications including for hyperthyroidism. continue to offer medication. 04/03: paranoid there is a conspiracy to hospitalize him. threatening to stick a stick in staff once he is released by digital content coordinator. insists his hyperthyroidism was cured at [facility]. asserts there is NOTHING wrong with him. continue to offer medication. 04/04: irritable, rejecting. verbally abuses MD and sends him away: see you on monday [in court]. continue to offer medication for thyroid condition and mental illness. 04/05 continue tx. suspicious and guarded, accusatory, verbal threats to hurt staff and peers 04/06 intrusive, posturing towards staff and peer who he thinks is not real and is an impostor, continues to make verbal threats to harm him but thinks that because he is not real he may not experience any pain. 04/07: threatening statements and behaviors of yesterday noted. pt sleeping this morning, dismissive of MD. 04/08: asleep days. committed and meds ordered by court. 04/09: on being informed of court order and MD insisting on meds, pt escalated to hurling food item in container against wall at high speed and saying he wished he could do the same to MD's head. pt eventually took court ordered meds PO. sensodyne and excedrin not available in pharmacy (pt requesting them). 04/10: continue tx. Pt accepting medication today. 04/11: Keeping to self. Lying in bed most of morning. Declined to meet with T/W. Pt stated, I'm fine. I don't need anything . Listening to headphones in room. Declined court ordered PO medications; received IM medications. Refused vital signs.continue tx plan. 04/12: got IMs yesterday, took PO this morning. sleepy, no concerns or complaints. 04/13: taking PO meds again. slept 7 hours. sleepy again mid morning refusing interview. continue current mgmt. 04/14: sleeping, rousable. denies being sedated or tired, says he's just bored. no questions or complaints. informed of need to check labs. check lithium level and thyroid labs tonight. 04/15: refusing labs. delusional re his brother harming him. verbally abusive toward MD. spat in floor. happy with improvement in proptosis. 04/16: Lying in bed. Calm. cooperative. guarded. Pt reports feeling tired this morning d/t poor sleep last night. Pt stated, I don't need anything. I didn't sleep well so I'm trying to catch up . denies any issues at this time. denies SI/HI/VH/AH. Continue current tx plan. 04/17: more calm today, less explosive. continue current mgmt. 04/18: continues more calm. tolerating moments of frustration without verbally attacking MD. slept only 2 hours overnight, however. continue current mgmt. 04/19 continues to push boundaries and limits with staff mike around cell phone- 04/20 - aggressive with staff and unpredictable- threw water pitcher at staff behind desk/-when seen by provider passive in bed-denying all compaints/sys- no insight 04/21: appears as per last week. more difficult behaviors around cell phone use, did throw pitcher of water at RN monday over phone use and was restrained. continue current mgmt. 04/22: continues to have conflict around cell phone use. consolidate zyprexa at HS to decrease daytime sedation. 1:1 allegra shift until peer he is accusing of not being a real patient and appears to be targeting discharges tomorrow. 04/23: lithium 0.6 on 600 BID. sleeping better, remains delusional (telling SW who is marginally younger than him that she could be his daughter). just changed zyprexa dosing as of last night. continue current regimen and observe for continued stabilization. T/C slight increase in lithium dosing. 04/24: Laying in bed. guarded. calm. did not want to get out of bed to meet with T/W. Pt reports feeling great today but declined to go into detail. listening to music on unit headphones. Pt stated, I'm fine. I don't need anything . denies any issues at this time. denies SI/HI/VH/AH. Continue current tx plan. 04/25: Laying in bed. keeping to self. calm. paranoid. Discussed incident that occurred with staff last evening. Pt stated, the counselor made up a lie yesterday. I said she looks like my ex-girlfriend. I know they are related. They want to make up a lie to irritate me. They are trying to talk to me so they can use recording devices and make me look some kind of way . listening to music on unit headphones. denies SI/HI/VH/AH. Continue current tx plan. 04/26: Continue current regimen and plans. Increase Zyprexa 20 mg q.h.s. fresh air break withheld 04/27: Continue current regimen and plans 04/28: somewhat less irritable and agitated than last week. however, over the weekend was claiming he was the father of a footballer on TV and also that a staff member is a twin of his ex-GF (and he pushed staff member). TFTs improving. continue current mgmt. 04/29: no change in presentation. continue current mgmt. 04/30: no irritable edge today. calm, pleasant. engaging in small talk. reality testing not pressed. continue current mgmt for now. 05/01: no change in presentation. continue current mgmt. 05/02: BPs coming down, DC beta joanne as pt has been refusing anyway. remains not antagonistic toward MD. using phone appropriately. continue current mgmt otherwise. 05/03 continue 05/04: remains delusional, irritable/labile when delusional system confronted. declines to sign TOMMY for [facility] records. continue current mgmt. 05/06: declining to meet with MD, but does meet with medical student. remains upset about yesterday's confrontation re his delusional system. Reason for continued inpatient stay Substantial Risk for: harm to self, harm to others and inability to function Time Spent With Patient Time: Total time managing care of this patient today ____ minutes.
[2025-05-06 20:00] VITALS: RESP 18
[2025-05-06] MEDS: OLANZapine ODT 10 MG TAB.RAPDIS 20 MG TRANSLINGU (22:57)
[2025-05-06 23:00] VITALS: BP 135/84; PULSE 98; RESP 18; TEMP 36.4; O2SAT 100
[2025-05-07 07:38] VITALS: BP 133/64; PULSE 94; RESP 18; TEMP 2.7; TEMP 36.8; O2SAT 99
--- NOTE | 2025-05-07 12:26 | HO.PSYCHPN ---
Subjective Subjective Date of Service: 05/07/25 Reason For Visit: psychotic disorder Subjective Notes: Section 8 Interim History: Active on unit. keeping to self. pacing unit hallway while listening to unit headphones. medication compliant. patient reports feeling good ; pt stated, I'm just waiting to leave here. I want to return to my life and do things like go grocery shopping . denies SI/HI/VH/AH. Continue current tx plan. Medication Compliance: Yes Side effects from medications: No Attending Groups: No Mental Status Exam Mental Status Exam Patient Appearance: Appropriate Patient Orientation: Person, Place, Time and Situation Level of Consciousness: Awake and Alert Patient Behavior: Appropriate and Cooperative Mood Description: Calm Affect Description: Calm Ability to Follow Directions: Good Speech Pattern: Clear Memory Description: Intact Hallucinations: None Thought Process: Intact Thought Content: positive for Intact Diagnostics Vital Signs (24Hr): Vital Signs - 24 hr 05/06/25 20:00 05/06/25 23:00 05/07/25 07:38 Temperature 97.5 F 36.8 F L Pulse Rate 98 94 Respiratory Rate 18 18 18 Blood Pressure 135/84 133/64 Pulse Oximetry 100 99 Oxygen Delivery Method Room Air Room Air BMI result Body Mass Index 19.6 Labs 03/27/25 09:44 04/22/25 20:29 Medications Medications Current Medications Acetaminophen (Acetaminophen 325 Mg Tablet) 650 mg PO Q6H PRN PRN Reason: Headache/Pain, Scale 1-10 Last Admin: 04/01/25 23:20 Dose: 650 mg Al Hydroxide/Mg Hydroxide (Magnesium Hydrox/Alum Hydrox 30 Ml Oral.Susp) 30 ml PO Q6H PRN PRN Reason: Heartburn/Nausea Benzocaine (Benzocaine 20 % Oral Gel 14 Gm Tube) 1 appl MUCOUS MEM QID PRN; Protocol PRN Reason: Mouth Sore Pain Last Admin: 04/26/25 18:33 Dose: 1 appl Diazepam (Diazepam 10 Mg/2 Ml Cartridge) 10 mg IM BID PRN PRN Reason: refusal of lithium, mary floyd Last Admin: 04/11/25 09:56 Dose: 10 mg Haloperidol (Haloperidol 5 Mg Tablet) 5 mg PO Q4H PRN PRN Reason: agitation Hydroxyzine HCl (Hydroxyzine Hcl 25 Mg Tablet) 25 mg PO Q6H PRN PRN Reason: mild anxiety Ibuprofen (Ibuprofen 800 Mg Tablet) 800 mg PO Q6H PRN PRN Reason: pain (pain scale 1-10) Last Admin: 05/06/25 23:00 Dose: 800 mg [place] Carbonate ([place] Carbonate Er 300 Mg Tablet.Er) 600 mg PO BID [facility] Last Admin: 05/07/25 09:56 Dose: 600 mg Magnesium Hydroxide (Milk Of Magnesia 30 Ml Oral.Susp) 30 ml PO DAILY PRN PRN Reason: Constipation Methimazole (Methimazole 10 Mg Tablet) 20 mg PO DAILY [facility] Last Admin: 05/07/25 09:56 Dose: 20 mg Nicotine (Nicotine 21 Mg Patch.Td24) 21 mg TRANSDERMA DAILY PRN PRN Reason: nicotine cravings Last Admin: 04/12/25 17:06 Dose: 21 mg Nicotine Polacrilex (Nicotine Polacrilex Lozenge 2 Mg Lozenge) 2 mg BUCCAL Q1H PRN PRN Reason: Nicotine Cravings Last Admin: 04/30/25 08:49 Dose: 2 mg Patient Own Medication Excedrin 250/250/65mg 2 each PO Q8H PRN PRN Reason: Migraine Headache Last Admin: 04/18/25 18:03 Dose: 2 each Olanzapine (Olanzapine 10 Mg Vial) 10 mg IM BID PRN PRN Reason: refusal of PO, per maria luz's ord Last Admin: 04/11/25 09:56 Dose: 10 mg Olanzapine (Olanzapine Odt 10 Mg Tab.Rapdis) 20 mg TRANSLINGU BEDTIME [facility] Last Admin: 05/06/25 22:57 Dose: 20 mg Penicillin V Potassium (Penicillin V Potassium 250 Mg Tablet) 500 mg PO QID [facility] Last Admin: 05/07/25 09:57 Dose: 500 mg Quetiapine Fumarate (Quetiapine Fumarate 200 Mg Tablet) 200 mg PO BEDTIME PRN PRN Reason: insomnia Last Admin: 04/16/25 04:21 Dose: 200 mg Allergies Allergies Allergy/AdvReac Type Severity Reaction Status Date / Time No Known Allergies Allergy Verified 03/26/25 14:24 Assessment & Plan Assessment & Plan (1) Dental abscess: Status: Acute Code(s): K04.7 - Periapical abscess without sinus (2) Schizophrenia: Status: Acute Code(s): F20.9 - Schizophrenia, unspecified Plan 03/26: offer lithium and seroquel for becca. continue methimazole and beta joanne for hyperthyroidism as started at [facility]. trend TFTs. 12b. 03/27: taking methimazole and beta joanne. refused HS meds last night, took morning meds today. continue to encourage medication compliance. 03/28: intermittently taking meds. wants all meds in morning. pressured, manic, paranoid delusions. encouraged to take lithium but states he will not. all meds ordered for morning. 03/29: Keeping to self. no groups. observed laying in bed listening to music on unit headphones. pleasant. Pt reports feeling good today and sleeping well. declined lithium and zyprexa. denies SI/HI/VH/AH. continue current tx plan. 03/30:Irritable. upset he was unable to use his personal hygiene products. Per nursing, pt threatened staff and squeezed tooth paste throughout unit hallway to show his frustration. Pt was able to calm down after speaking with security. declined medications. 03/31: Keeping to self. laying in bed listening to music. refused medications. calm today. Patient reports feeling great ; pt stated, nothing is wrong with me. I'm waiting so I can leave tomorrow. I'm hoping for the best . denies SI/HI/VH/AH. per nursing, slept 6 hours. Continue current tx plan. 04/01: variably calm on the unit versus highly agitated. paranoid delusions, irritability, lability continue. seems to believe MD has met him prior to the present hospitalization and is stalking him. believes brother behind conspiracy to have him psychiatrically hospitalized. has been refusing all medications, including for hyperthyroidism. informed he would be filed on. filed. continue to offer medications. 04/02: continues agitated, belittling, verbally aggressive, refusing all medications including for hyperthyroidism. continue to offer medication. 04/03: paranoid there is a conspiracy to hospitalize him. threatening to stick a stick in staff once he is released by marketing rep. insists his hyperthyroidism was cured at [facility]. asserts there is NOTHING wrong with him. continue to offer medication. 04/04: irritable, rejecting. verbally abuses MD and sends him away: see you on monday [in court]. continue to offer medication for thyroid condition and mental illness. 04/05 continue tx. suspicious and guarded, accusatory, verbal threats to hurt staff and peers 04/06 intrusive, posturing towards staff and peer who he thinks is not real and is an impostor, continues to make verbal threats to harm him but thinks that because he is not real he may not experience any pain. 04/07: threatening statements and behaviors of yesterday noted. pt sleeping this morning, dismissive of MD. 04/08: asleep days. committed and meds ordered by court. 04/09: on being informed of court order and MD insisting on meds, pt escalated to hurling food item in container against wall at high speed and saying he wished he could do the same to MD's head. pt eventually took court ordered meds PO. sensodyne and excedrin not available in pharmacy (pt requesting them). 04/10: continue tx. Pt accepting medication today. 04/11: Keeping to self. Lying in bed most of morning. Declined to meet with T/W. Pt stated, I'm fine. I don't need anything . Listening to headphones in room. Declined court ordered PO medications; received IM medications. Refused vital signs.continue tx plan. 04/12: got IMs yesterday, took PO this morning. sleepy, no concerns or complaints. 04/13: taking PO meds again. slept 7 hours. sleepy again mid morning refusing interview. continue current mgmt. 04/14: sleeping, rousable. denies being sedated or tired, says he's just bored. no questions or complaints. informed of need to check labs. check lithium level and thyroid labs tonight. 04/15: refusing labs. delusional re his brother harming him. verbally abusive toward MD. spat in floor. happy with improvement in proptosis. 04/16: Lying in bed. Calm. cooperative. guarded. Pt reports feeling tired this morning d/t poor sleep last night. Pt stated, I don't need anything. I didn't sleep well so I'm trying to catch up . denies any issues at this time. denies SI/HI/VH/AH. Continue current tx plan. 04/17: more calm today, less explosive. continue current mgmt. 04/18: continues more calm. tolerating moments of frustration without verbally attacking MD. slept only 2 hours overnight, however. continue current mgmt. 04/19 continues to push boundaries and limits with staff mike around cell phone- 04/20 - aggressive with staff and unpredictable- threw water pitcher at staff behind desk/-when seen by provider passive in bed-denying all compaints/sys- no insight 04/21: appears as per last week. more difficult behaviors around cell phone use, did throw pitcher of water at RN monday over phone use and was restrained. continue current mgmt. 04/22: continues to have conflict around cell phone use. consolidate zyprexa at HS to decrease daytime sedation. 1:1 allegra shift until peer he is accusing of not being a real patient and appears to be targeting discharges tomorrow. 04/23: lithium 0.6 on 600 BID. sleeping better, remains delusional (telling SW who is marginally younger than him that she could be his daughter). just changed zyprexa dosing as of last night. continue current regimen and observe for continued stabilization. T/C slight increase in lithium dosing. 04/24: Laying in bed. guarded. calm. did not want to get out of bed to meet with T/W. Pt reports feeling great today but declined to go into detail. listening to music on unit headphones. Pt stated, I'm fine. I don't need anything . denies any issues at this time. denies SI/HI/VH/AH. Continue current tx plan. 04/25: Laying in bed. keeping to self. calm. paranoid. Discussed incident that occurred with staff last evening. Pt stated, the counselor made up a lie yesterday. I said she looks like my ex-girlfriend. I know they are related. They want to make up a lie to irritate me. They are trying to talk to me so they can use recording devices and make me look some kind of way . listening to music on unit headphones. denies SI/HI/VH/AH. Continue current tx plan. 04/26: Continue current regimen and plans. Increase Zyprexa 20 mg q.h.s. fresh air break withheld 04/27: Continue current regimen and plans 6/23: somewhat less irritable and agitated than last week. however, over the weekend was claiming he was the father of a footballer on TV and also that a staff member is a twin of his ex-GF (and he pushed staff member). TFTs improving. continue current mgmt. 04/29: no change in presentation. continue current mgmt. 04/30: no irritable edge today. calm, pleasant. engaging in small talk. reality testing not pressed. continue current mgmt for now. 05/01: no change in presentation. continue current mgmt. 05/02: BPs coming down, DC beta joanne as pt has been refusing anyway. remains not antagonistic toward MD. using phone appropriately. continue current mgmt otherwise. 05/03 continue 05/04: remains delusional, irritable/labile when delusional system confronted. declines to sign TOMMY for [facility] records. continue current mgmt. 05/06: declining to meet with MD, but does meet with medical student. remains upset about yesterday's confrontation re his delusional system. 05/07: Active on unit. keeping to self. pacing unit hallway while listening to unit headphones. medication compliant. patient reports feeling good ; pt stated, I'm just waiting to leave here. I want to return to my life and do things like go grocery shopping . denies SI/HI/VH/AH. Continue current tx plan. Patient educated on: medication risk/benefits Reason for continued inpatient stay Substantial Risk for: med/psych decompensation Time Spent With Patient Time: Total time managing care of this patient today _10___ minutes.
[2025-05-07 20:00] VITALS: RESP 16
[2025-05-07 23:00] VITALS: BP 138/75; PULSE 82; RESP 18; TEMP 36.4; O2SAT 100
[2025-05-07] MEDS: OLANZapine ODT 10 MG TAB.RAPDIS 20 MG TRANSLINGU (23:21)
[2025-05-08 07:00] VITALS: BMI 22.0
--- NOTE | 2025-05-08 11:52 | HO.PSYCHPN ---
Subjective Subjective Date of Service: 05/08/25 Reason For Visit: psychotic disorder Interim History: in room in dark. calm and cooperative. denies any problems or needs. per staff, attending groups. denies Sx. paranoid re meds - inspecting packaging yesterday. slept 7 hours. Mental Status Exam Mental Status Exam Narrative: very tall and thin. adequately dressed and groomed. exopthalmos. superficially cooperative. calm. affect normo-intense, non-labile. mood irritable. no SI/AVH expressed. Diagnostics Vital Signs (24Hr): Vital Signs - 24 hr 05/07/25 20:00 05/07/25 23:00 Temperature 97.5 F Pulse Rate 82 Respiratory Rate 16 18 Blood Pressure 138/75 Pulse Oximetry 100 Oxygen Delivery Method Room Air BMI result Body Mass Index 22.0 Labs 03/27/25 09:44 04/22/25 20:29 Medications Medications Current Medications Acetaminophen (Acetaminophen 325 Mg Tablet) 650 mg PO Q6H PRN PRN Reason: Headache/Pain, Scale 1-10 Last Admin: 04/01/25 23:20 Dose: 650 mg Al Hydroxide/Mg Hydroxide (Magnesium Hydrox/Alum Hydrox 30 Ml Oral.Susp) 30 ml PO Q6H PRN PRN Reason: Heartburn/Nausea Benzocaine (Benzocaine 20 % Oral Gel 14 Gm Tube) 1 appl MUCOUS MEM QID PRN; Protocol PRN Reason: Mouth Sore Pain Last Admin: 04/26/25 18:33 Dose: 1 appl Diazepam (Diazepam 10 Mg/2 Ml Cartridge) 10 mg IM BID PRN PRN Reason: refusal of lithium, mary floyd Last Admin: 04/11/25 09:56 Dose: 10 mg Haloperidol (Haloperidol 5 Mg Tablet) 5 mg PO Q4H PRN PRN Reason: agitation Hydroxyzine HCl (Hydroxyzine Hcl 25 Mg Tablet) 25 mg PO Q6H PRN PRN Reason: mild anxiety Ibuprofen (Ibuprofen 800 Mg Tablet) 800 mg PO Q6H PRN PRN Reason: pain (pain scale 1-10) Last Admin: 05/08/25 10:15 Dose: 800 mg [place] Carbonate ([place] Carbonate Er 300 Mg Tablet.Er) 600 mg PO BID [facility] Last Admin: 05/08/25 09:53 Dose: 600 mg Magnesium Hydroxide (Milk Of Magnesia 30 Ml Oral.Susp) 30 ml PO DAILY PRN PRN Reason: Constipation Methimazole (Methimazole 10 Mg Tablet) 20 mg PO DAILY [facility] Last Admin: 05/08/25 09:53 Dose: 20 mg Nicotine (Nicotine 21 Mg Patch.Td24) 21 mg TRANSDERMA DAILY PRN PRN Reason: nicotine cravings Last Admin: 04/12/25 17:06 Dose: 21 mg Nicotine Polacrilex (Nicotine Polacrilex Lozenge 2 Mg Lozenge) 2 mg BUCCAL Q1H PRN PRN Reason: Nicotine Cravings Last Admin: 04/30/25 08:49 Dose: 2 mg Patient Own Medication Excedrin 250/250/65mg 2 each PO Q8H PRN PRN Reason: Migraine Headache Last Admin: 04/18/25 18:03 Dose: 2 each Olanzapine (Olanzapine 10 Mg Vial) 10 mg IM BID PRN PRN Reason: refusal of PO, per maria luz's ord Last Admin: 04/11/25 09:56 Dose: 10 mg Olanzapine (Olanzapine Odt 10 Mg Tab.Rapdis) 20 mg TRANSLINGU BEDTIME [facility] Last Admin: 05/07/25 23:21 Dose: 20 mg Penicillin V Potassium (Penicillin V Potassium 250 Mg Tablet) 500 mg PO QID [facility] Last Admin: 05/08/25 09:53 Dose: 500 mg Quetiapine Fumarate (Quetiapine Fumarate 200 Mg Tablet) 200 mg PO BEDTIME PRN PRN Reason: insomnia Last Admin: 04/16/25 04:21 Dose: 200 mg Allergies Allergies Allergy/AdvReac Type Severity Reaction Status Date / Time No Known Allergies Allergy Verified 03/26/25 14:24 Assessment & Plan Assessment & Plan (1) Dental abscess: Status: Acute Code(s): K04.7 - Periapical abscess without sinus (2) Schizophrenia: Status: Acute Code(s): F20.9 - Schizophrenia, unspecified Plan 03/26: offer lithium and seroquel for becca. continue methimazole and beta joanne for hyperthyroidism as started at [facility]. trend TFTs. 12b. 03/27: taking methimazole and beta joanne. refused HS meds last night, took morning meds today. continue to encourage medication compliance. 03/28: intermittently taking meds. wants all meds in morning. pressured, manic, paranoid delusions. encouraged to take lithium but states he will not. all meds ordered for morning. 03/29: Keeping to self. no groups. observed laying in bed listening to music on unit headphones. pleasant. Pt reports feeling good today and sleeping well. declined lithium and zyprexa. denies SI/HI/VH/AH. continue current tx plan. 03/30:Irritable. upset he was unable to use his personal hygiene products. Per nursing, pt threatened staff and squeezed tooth paste throughout unit hallway to show his frustration. Pt was able to calm down after speaking with security. declined medications. 03/31: Keeping to self. laying in bed listening to music. refused medications. calm today. Patient reports feeling great ; pt stated, nothing is wrong with me. I'm waiting so I can leave tomorrow. I'm hoping for the best . denies SI/HI/VH/AH. per nursing, slept 6 hours. Continue current tx plan. 04/01: variably calm on the unit versus highly agitated. paranoid delusions, irritability, lability continue. seems to believe MD has met him prior to the present hospitalization and is stalking him. believes brother behind conspiracy to have him psychiatrically hospitalized. has been refusing all medications, including for hyperthyroidism. informed he would be filed on. filed. continue to offer medications. 04/02: continues agitated, belittling, verbally aggressive, refusing all medications including for hyperthyroidism. continue to offer medication. 04/03: paranoid there is a conspiracy to hospitalize him. threatening to stick a stick in staff once he is released by conciliation court judge. insists his hyperthyroidism was cured at [facility]. asserts there is NOTHING wrong with him. continue to offer medication. 04/04: irritable, rejecting. verbally abuses MD and sends him away: see you on monday [in court]. continue to offer medication for thyroid condition and mental illness. 04/05 continue tx. suspicious and guarded, accusatory, verbal threats to hurt staff and peers 04/06 intrusive, posturing towards staff and peer who he thinks is not real and is an impostor, continues to make verbal threats to harm him but thinks that because he is not real he may not experience any pain. 04/07: threatening statements and behaviors of yesterday noted. pt sleeping this morning, dismissive of MD. 04/08: asleep days. committed and meds ordered by court. 04/09: on being informed of court order and MD insisting on meds, pt escalated to hurling food item in container against wall at high speed and saying he wished he could do the same to MD's head. pt eventually took court ordered meds PO. sensodyne and excedrin not available in pharmacy (pt requesting them). 04/10: continue tx. Pt accepting medication today. 04/11: Keeping to self. Lying in bed most of morning. Declined to meet with T/W. Pt stated, I'm fine. I don't need anything . Listening to headphones in room. Declined court ordered PO medications; received IM medications. Refused vital signs.continue tx plan. 04/12: got IMs yesterday, took PO this morning. sleepy, no concerns or complaints. 04/13: taking PO meds again. slept 7 hours. sleepy again mid morning refusing interview. continue current mgmt. 04/14: sleeping, rousable. denies being sedated or tired, says he's just bored. no questions or complaints. informed of need to check labs. check lithium level and thyroid labs tonight. 04/15: refusing labs. delusional re his brother harming him. verbally abusive toward MD. spat in floor. happy with improvement in proptosis. 04/16: Lying in bed. Calm. cooperative. guarded. Pt reports feeling tired this morning d/t poor sleep last night. Pt stated, I don't need anything. I didn't sleep well so I'm trying to catch up . denies any issues at this time. denies SI/HI/VH/AH. Continue current tx plan. 04/17: more calm today, less explosive. continue current mgmt. 04/18: continues more calm. tolerating moments of frustration without verbally attacking MD. slept only 2 hours overnight, however. continue current mgmt. 04/19 continues to push boundaries and limits with staff mike around cell phone- 04/20 - aggressive with staff and unpredictable- threw water pitcher at staff behind desk/-when seen by provider passive in bed-denying all compaints/sys- no insight 04/21: appears as per last week. more difficult behaviors around cell phone use, did throw pitcher of water at RN monday over phone use and was restrained. continue current mgmt. 04/22: continues to have conflict around cell phone use. consolidate zyprexa at HS to decrease daytime sedation. 1:1 allegra shift until peer he is accusing of not being a real patient and appears to be targeting discharges tomorrow. 04/23: lithium 0.6 on 600 BID. sleeping better, remains delusional (telling SW who is marginally younger than him that she could be his daughter). just changed zyprexa dosing as of last night. continue current regimen and observe for continued stabilization. T/C slight increase in lithium dosing. 04/24: Laying in bed. guarded. calm. did not want to get out of bed to meet with T/W. Pt reports feeling great today but declined to go into detail. listening to music on unit headphones. Pt stated, I'm fine. I don't need anything . denies any issues at this time. denies SI/HI/VH/AH. Continue current tx plan. 04/25: Laying in bed. keeping to self. calm. paranoid. Discussed incident that occurred with staff last evening. Pt stated, the counselor made up a lie yesterday. I said she looks like my ex-girlfriend. I know they are related. They want to make up a lie to irritate me. They are trying to talk to me so they can use recording devices and make me look some kind of way . listening to music on unit headphones. denies SI/HI/VH/AH. Continue current tx plan. 04/26: Continue current regimen and plans. Increase Zyprexa 20 mg q.h.s. fresh air break withheld 04/27: Continue current regimen and plans 04/28: somewhat less irritable and agitated than last week. however, over the weekend was claiming he was the father of a footballer on TV and also that a staff member is a twin of his ex-GF (and he pushed staff member). TFTs improving. continue current mgmt. 04/29: no change in presentation. continue current mgmt. 04/30: no irritable edge today. calm, pleasant. engaging in small talk. reality testing not pressed. continue current mgmt for now. 05/01: no change in presentation. continue current mgmt. 05/02: BPs coming down, DC beta joanne as pt has been refusing anyway. remains not antagonistic toward MD. using phone appropriately. continue current mgmt otherwise. 05/03 continue 05/04: remains delusional, irritable/labile when delusional system confronted. declines to sign TOMMY for [facility] records. continue current mgmt. 05/06: declining to meet with MD, but does meet with medical student. remains upset about yesterday's confrontation re his delusional system. 05/07: Active on unit. keeping to self. pacing unit hallway while listening to unit headphones. medication compliant. patient reports feeling good ; pt stated, I'm just waiting to leave here. I want to return to my life and do things like go grocery shopping . denies SI/HI/VH/AH. Continue current tx plan. 05/08: stable presentation, delusions not being brought to the surface daily. remains affectively improved from admission. continue current mgmt. Reason for continued inpatient stay Substantial Risk for: harm to self, harm to others, inability to function, rapid decompensation and med/psych decompensation Time Spent With Patient Time: Total time managing care of this patient today ____ minutes.
[2025-05-08 19:25] VITALS: BP 142/75; PULSE 97; RESP 14; TEMP 36.8; O2SAT 98
[2025-05-08] MEDS: OLANZapine ODT 10 MG TAB.RAPDIS 20 MG TRANSLINGU (23:43)
[2025-05-09 07:46] VITALS: BP 119/58; PULSE 94; RESP 16; TEMP 2.7; TEMP 36.9; O2SAT 99
--- NOTE | 2025-05-09 12:41 | HO.PSYCHPN ---
Subjective Subjective Date of Service: 05/09/25 Reason For Visit: psychotic disorder Interim History: observed ambulating in the subramanian. no problems, questions, or complaints. per staff, pleasant calm, cooperative. slept 8 hours. Mental Status Exam Mental Status Exam Narrative: very tall and thin. adequately dressed and groomed. exopthalmos. superficially cooperative. affect normo-intense, non-labile. mood calm. no SI/AVH expressed. Diagnostics Vital Signs (24Hr): Vital Signs - 24 hr 05/08/25 19:25 05/09/25 07:46 Temperature 98.3 F 36.9 F L Pulse Rate 97 94 Respiratory Rate 14 16 Blood Pressure 142/75 H 119/58 L Pulse Oximetry 98 99 Oxygen Delivery Method Room Air Room Air BMI result Body Mass Index 22.0 Labs 03/27/25 09:44 04/22/25 20:29 Medications Medications Current Medications Acetaminophen (Acetaminophen 325 Mg Tablet) 650 mg PO Q6H PRN PRN Reason: Headache/Pain, Scale 1-10 Last Admin: 04/01/25 23:20 Dose: 650 mg Al Hydroxide/Mg Hydroxide (Magnesium Hydrox/Alum Hydrox 30 Ml Oral.Susp) 30 ml PO Q6H PRN PRN Reason: Heartburn/Nausea Benzocaine (Benzocaine 20 % Oral Gel 14 Gm Tube) 1 appl MUCOUS MEM QID PRN; Protocol PRN Reason: Mouth Sore Pain Last Admin: 04/26/25 18:33 Dose: 1 appl Diazepam (Diazepam 10 Mg/2 Ml Cartridge) 10 mg IM BID PRN PRN Reason: refusal of lithium, mary floyd Last Admin: 04/11/25 09:56 Dose: 10 mg Haloperidol (Haloperidol 5 Mg Tablet) 5 mg PO Q4H PRN PRN Reason: agitation Hydroxyzine HCl (Hydroxyzine Hcl 25 Mg Tablet) 25 mg PO Q6H PRN PRN Reason: mild anxiety Ibuprofen (Ibuprofen 800 Mg Tablet) 800 mg PO Q6H PRN PRN Reason: pain (pain scale 1-10) Last Admin: 05/08/25 23:42 Dose: 800 mg [place] Carbonate ([place] Carbonate Er 300 Mg Tablet.Er) 600 mg PO BID KRISTAL Last Admin: 05/09/25 09:51 Dose: 600 mg Magnesium Hydroxide (Milk Of Magnesia 30 Ml Oral.Susp) 30 ml PO DAILY PRN PRN Reason: Constipation Methimazole (Methimazole 10 Mg Tablet) 20 mg PO DAILY [facility] Last Admin: 05/09/25 09:51 Dose: 20 mg Nicotine (Nicotine 21 Mg Patch.Td24) 21 mg TRANSDERMA DAILY PRN PRN Reason: nicotine cravings Last Admin: 04/12/25 17:06 Dose: 21 mg Nicotine Polacrilex (Nicotine Polacrilex Lozenge 2 Mg Lozenge) 2 mg BUCCAL Q1H PRN PRN Reason: Nicotine Cravings Last Admin: 04/30/25 08:49 Dose: 2 mg Patient Own Medication Excedrin 250/250/65mg 2 each PO Q8H PRN PRN Reason: Migraine Headache Last Admin: 04/18/25 18:03 Dose: 2 each Olanzapine (Olanzapine 10 Mg Vial) 10 mg IM BID PRN PRN Reason: refusal of PO, per maria luz's ord Last Admin: 04/11/25 09:56 Dose: 10 mg Olanzapine (Olanzapine Odt 10 Mg Tab.Rapdis) 20 mg TRANSLINGU BEDTIME [facility] Last Admin: 05/08/25 23:43 Dose: 20 mg Penicillin V Potassium (Penicillin V Potassium 250 Mg Tablet) 500 mg PO QID [facility] Last Admin: 05/09/25 09:51 Dose: 500 mg Quetiapine Fumarate (Quetiapine Fumarate 200 Mg Tablet) 200 mg PO BEDTIME PRN PRN Reason: insomnia Last Admin: 04/16/25 04:21 Dose: 200 mg Allergies Allergies Allergy/AdvReac Type Severity Reaction Status Date / Time No Known Allergies Allergy Verified 03/26/25 14:24 Assessment & Plan Assessment & Plan (1) Dental abscess: Status: Acute Code(s): K04.7 - Periapical abscess without sinus (2) Schizophrenia: Status: Acute Code(s): F20.9 - Schizophrenia, unspecified Plan 03/26: offer lithium and seroquel for becca. continue methimazole and beta joanne for hyperthyroidism as started at [facility] [place]. trend TFTs. 12b. 03/27: taking methimazole and beta joanne. refused HS meds last night, took morning meds today. continue to encourage medication compliance. 03/28: intermittently taking meds. wants all meds in morning. pressured, manic, paranoid delusions. encouraged to take lithium but states he will not. all meds ordered for morning. 03/29: Keeping to self. no groups. observed laying in bed listening to music on unit headphones. pleasant. Pt reports feeling good today and sleeping well. declined lithium and zyprexa. denies SI/HI/VH/AH. continue current tx plan. 03/30:Irritable. upset he was unable to use his personal hygiene products. Per nursing, pt threatened staff and squeezed tooth paste throughout unit hallway to show his frustration. Pt was able to calm down after speaking with security. declined medications. 03/31: Keeping to self. laying in bed listening to music. refused medications. calm today. Patient reports feeling great ; pt stated, nothing is wrong with me. I'm waiting so I can leave tomorrow. I'm hoping for the best . denies SI/HI/VH/AH. per nursing, slept 6 hours. Continue current tx plan. 04/01: variably calm on the unit versus highly agitated. paranoid delusions, irritability, lability continue. seems to believe MD has met him prior to the present hospitalization and is stalking him. believes brother behind conspiracy to have him psychiatrically hospitalized. has been refusing all medications, including for hyperthyroidism. informed he would be filed on. filed. continue to offer medications. 04/02: continues agitated, belittling, verbally aggressive, refusing all medications including for hyperthyroidism. continue to offer medication. 04/03: paranoid there is a conspiracy to hospitalize him. threatening to stick a stick in staff once he is released by associate juvenile court judge. insists his hyperthyroidism was cured at [facility]. asserts there is NOTHING wrong with him. continue to offer medication. 04/04: irritable, rejecting. verbally abuses MD and sends him away: see you on monday [in court]. continue to offer medication for thyroid condition and mental illness. 04/05 continue tx. suspicious and guarded, accusatory, verbal threats to hurt staff and peers 04/06 intrusive, posturing towards staff and peer who he thinks is not real and is an impostor, continues to make verbal threats to harm him but thinks that because he is not real he may not experience any pain. 04/07: threatening statements and behaviors of yesterday noted. pt sleeping this morning, dismissive of MD. 04/08: asleep days. committed and meds ordered by court. 04/09: on being informed of court order and MD insisting on meds, pt escalated to hurling food item in container against wall at high speed and saying he wished he could do the same to MD's head. pt eventually took court ordered meds PO. sensodyne and excedrin not available in pharmacy (pt requesting them). 04/10: continue tx. Pt accepting medication today. 04/11: Keeping to self. Lying in bed most of morning. Declined to meet with T/W. Pt stated, I'm fine. I don't need anything . Listening to headphones in room. Declined court ordered PO medications; received IM medications. Refused vital signs.continue tx plan. 04/12: got IMs yesterday, took PO this morning. sleepy, no concerns or complaints. 04/13: taking PO meds again. slept 7 hours. sleepy again mid morning refusing interview. continue current mgmt. 04/14: sleeping, rousable. denies being sedated or tired, says he's just bored. no questions or complaints. informed of need to check labs. check lithium level and thyroid labs tonight. 04/15: refusing labs. delusional re his brother harming him. verbally abusive toward MD. spat in floor. happy with improvement in proptosis. 04/16: Lying in bed. Calm. cooperative. guarded. Pt reports feeling tired this morning d/t poor sleep last night. Pt stated, I don't need anything. I didn't sleep well so I'm trying to catch up . denies any issues at this time. denies SI/HI/VH/AH. Continue current tx plan. 04/17: more calm today, less explosive. continue current mgmt. 04/18: continues more calm. tolerating moments of frustration without verbally attacking MD. slept only 2 hours overnight, however. continue current mgmt. 04/19 continues to push boundaries and limits with staff mike around cell phone- 04/20 - aggressive with staff and unpredictable- threw water pitcher at staff behind desk/-when seen by provider passive in bed-denying all compaints/sys- no insight 04/21: appears as per last week. more difficult behaviors around cell phone use, did throw pitcher of water at RN monday over phone use and was restrained. continue current mgmt. 04/22: continues to have conflict around cell phone use. consolidate zyprexa at HS to decrease daytime sedation. 1:1 allegra shift until peer he is accusing of not being a real patient and appears to be targeting discharges tomorrow. 04/23: lithium 0.6 on 600 BID. sleeping better, remains delusional (telling SW who is marginally younger than him that she could be his daughter). just changed zyprexa dosing as of last night. continue current regimen and observe for continued stabilization. T/C slight increase in lithium dosing. 04/24: Laying in bed. guarded. calm. did not want to get out of bed to meet with T/W. Pt reports feeling great today but declined to go into detail. listening to music on unit headphones. Pt stated, I'm fine. I don't need anything . denies any issues at this time. denies SI/HI/VH/AH. Continue current tx plan. 04/25: Laying in bed. keeping to self. calm. paranoid. Discussed incident that occurred with staff last evening. Pt stated, the counselor made up a lie yesterday. I said she looks like my ex-girlfriend. I know they are related. They want to make up a lie to irritate me. They are trying to talk to me so they can use recording devices and make me look some kind of way . listening to music on unit headphones. denies SI/HI/VH/AH. Continue current tx plan. 04/26: Continue current regimen and plans. Increase Zyprexa 20 mg q.h.s. fresh air break withheld 04/27: Continue current regimen and plans 04/28: somewhat less irritable and agitated than last week. however, over the weekend was claiming he was the father of a footballer on TV and also that a staff member is a twin of his ex-GF (and he pushed staff member). TFTs improving. continue current mgmt. 04/29: no change in presentation. continue current mgmt. 04/30: no irritable edge today. calm, pleasant. engaging in small talk. reality testing not pressed. continue current mgmt for now. 05/01: no change in presentation. continue current mgmt. 05/02: BPs coming down, DC beta joanne as pt has been refusing anyway. remains not antagonistic toward MD. using phone appropriately. continue current mgmt otherwise. 05/03 continue 05/04: remains delusional, irritable/labile when delusional system confronted. declines to sign TOMMY for [facility] records. continue current mgmt. 05/06: declining to meet with MD, but does meet with medical student. remains upset about yesterday's confrontation re his delusional system. 05/07: Active on unit. keeping to self. pacing unit hallway while listening to unit headphones. medication compliant. patient reports feeling good ; pt stated, I'm just waiting to leave here. I want to return to my life and do things like go grocery shopping . denies SI/HI/VH/AH. Continue current tx plan. 05/08: stable presentation, delusions not being brought to the surface daily. remains affectively improved from admission. continue current mgmt. 05/09: calm, pleasant. no questions or complaints. continue current mgmt. Reason for continued inpatient stay Substantial Risk for: harm to self, harm to others, inability to function and rapid decompensation Time Spent With Patient Time: Total time managing care of this patient today ____ minutes.
[2025-05-09 19:37] VITALS: BP 132/60; PULSE 94; RESP 18; TEMP 36.5; O2SAT 99
[2025-05-09] MEDS: OLANZapine ODT 10 MG TAB.RAPDIS 20 MG TRANSLINGU (23:11)
[2025-05-10 08:00] VITALS: BP 153/73; PULSE 91; RESP 18; TEMP 36.2; O2SAT 100
--- NOTE | 2025-05-10 13:40 | P.PNPSI_ITS ---
Subjective Subjective Date of Service: 05/10/25 Reason For Visit: psychotic disorder Interim History: lying in bed. no complaints or requests. per staff, dental pain not improving, increased swelling noted. denies Sx. broad affect. taking meds. sleeping well. Mental Status Exam Mental Status Exam Narrative: very tall and thin. adequately dressed and groomed. exopthalmos. superficially cooperative. affect normo-intense, non-labile. mood calm. no SI/AVH expressed. Diagnostics Vital Signs (24Hr): Vital Signs - 24 hr 05/09/25 19:37 05/10/25 08:00 Temperature 97.7 F 97.2 F Pulse Rate 94 91 Respiratory Rate 18 18 Blood Pressure 132/60 153/73 H Pulse Oximetry 99 100 Oxygen Delivery Method Room Air Room Air BMI result Body Mass Index 22.0 Labs 03/27/25 09:44 04/22/25 20:29 Medications Medications Current Medications Acetaminophen (Acetaminophen 325 Mg Tablet) 650 mg PO Q6H PRN PRN Reason: Headache/Pain, Scale 1-10 Last Admin: 04/01/25 23:20 Dose: 650 mg Al Hydroxide/Mg Hydroxide (Magnesium Hydrox/Alum Hydrox 30 Ml Oral.Susp) 30 ml PO Q6H PRN PRN Reason: Heartburn/Nausea Amoxicillin/Clavulanate Potassium (Amoxicillin/Potassium Clav 875 Mg Tablet) 875 mg PO Q12H KRISTAL Benzocaine (Benzocaine 20 % Oral Gel 14 Gm Tube) 1 appl MUCOUS MEM QID PRN; Protocol PRN Reason: Mouth Sore Pain Last Admin: 04/26/25 18:33 Dose: 1 appl Diazepam (Diazepam 10 Mg/2 Ml Cartridge) 10 mg IM BID PRN PRN Reason: refusal of lithium, mary floyd Last Admin: 04/11/25 09:56 Dose: 10 mg Haloperidol (Haloperidol 5 Mg Tablet) 5 mg PO Q4H PRN PRN Reason: agitation Hydroxyzine HCl (Hydroxyzine Hcl 25 Mg Tablet) 25 mg PO Q6H PRN PRN Reason: mild anxiety Ibuprofen (Ibuprofen 800 Mg Tablet) 800 mg PO Q6H PRN PRN Reason: pain (pain scale 1-10) Last Admin: 05/10/25 07:32 Dose: 800 mg [place] Carbonate ([place] Carbonate Er 300 Mg Tablet.Er) 600 mg PO BID KRISTAL Last Admin: 05/10/25 10:52 Dose: 600 mg Magnesium Hydroxide (Milk Of Magnesia 30 Ml Oral.Susp) 30 ml PO DAILY PRN PRN Reason: Constipation Methimazole (Methimazole 10 Mg Tablet) 20 mg PO DAILY [facility] Last Admin: 05/10/25 11:31 Dose: 20 mg Nicotine (Nicotine 21 Mg Patch.Td24) 21 mg TRANSDERMA DAILY PRN PRN Reason: nicotine cravings Last Admin: 04/12/25 17:06 Dose: 21 mg Nicotine Polacrilex (Nicotine Polacrilex Lozenge 2 Mg Lozenge) 2 mg BUCCAL Q1H PRN PRN Reason: Nicotine Cravings Last Admin: 04/30/25 08:49 Dose: 2 mg Patient Own Medication Excedrin 250/250/65mg 2 each PO Q8H PRN PRN Reason: Migraine Headache Last Admin: 04/18/25 18:03 Dose: 2 each Olanzapine (Olanzapine 10 Mg Vial) 10 mg IM BID PRN PRN Reason: refusal of PO, per maria luz's ord Last Admin: 04/11/25 09:56 Dose: 10 mg Olanzapine (Olanzapine Odt 10 Mg Tab.Rapdis) 20 mg TRANSLINGU BEDTIME KRISTAL Last Admin: 05/09/25 23:11 Dose: 20 mg Quetiapine Fumarate (Quetiapine Fumarate 200 Mg Tablet) 200 mg PO BEDTIME PRN PRN Reason: insomnia Last Admin: 04/16/25 04:21 Dose: 200 mg Allergies Allergies Allergy/AdvReac Type Severity Reaction Status Date / Time No Known Allergies Allergy Verified 03/26/25 14:24 Assessment & Plan Assessment & Plan (1) Dental abscess: Status: Acute Code(s): K04.7 - Periapical abscess without sinus (2) Schizophrenia: Status: Acute Code(s): F20.9 - Schizophrenia, unspecified Plan 03/26: offer lithium and seroquel for becca. continue methimazole and beta joanne for hyperthyroidism as started at [facility]. trend TFTs. 12b. 03/27: taking methimazole and beta joanne. refused HS meds last night, took morning meds today. continue to encourage medication compliance. 03/28: intermittently taking meds. wants all meds in morning. pressured, manic, paranoid delusions. encouraged to take lithium but states he will not. all meds ordered for morning. 03/29: Keeping to self. no groups. observed laying in bed listening to music on unit headphones. pleasant. Pt reports feeling good today and sleeping well. declined lithium and zyprexa. denies SI/HI/VH/AH. continue current tx plan. 03/30:Irritable. upset he was unable to use his personal hygiene products. Per nursing, pt threatened staff and squeezed tooth paste throughout unit hallway to show his frustration. Pt was able to calm down after speaking with security. declined medications. 03/31: Keeping to self. laying in bed listening to music. refused medications. calm today. Patient reports feeling great ; pt stated, nothing is wrong with me. I'm waiting so I can leave tomorrow. I'm hoping for the best . denies SI/HI/VH/AH. per nursing, slept 6 hours. Continue current tx plan. 04/01: variably calm on the unit versus highly agitated. paranoid delusions, irritability, lability continue. seems to believe MD has met him prior to the present hospitalization and is stalking him. believes brother behind conspiracy to have him psychiatrically hospitalized. has been refusing all medications, including for hyperthyroidism. informed he would be filed on. filed. continue to offer medications. 04/02: continues agitated, belittling, verbally aggressive, refusing all medications including for hyperthyroidism. continue to offer medication. 04/03: paranoid there is a conspiracy to hospitalize him. threatening to stick a stick in staff once he is released by guest service manager. insists his hyperthyroidism was cured at [facility]. asserts there is NOTHING wrong with him. continue to offer medication. 04/04: irritable, rejecting. verbally abuses MD and sends him away: see you on monday [in court]. continue to offer medication for thyroid condition and mental illness. 04/05 continue tx. suspicious and guarded, accusatory, verbal threats to hurt staff and peers 04/06 intrusive, posturing towards staff and peer who he thinks is not real and is an impostor, continues to make verbal threats to harm him but thinks that because he is not real he may not experience any pain. 04/07: threatening statements and behaviors of yesterday noted. pt sleeping this morning, dismissive of MD. 04/08: asleep days. committed and meds ordered by court. 04/09: on being informed of court order and MD insisting on meds, pt escalated to hurling food item in container against wall at high speed and saying he wished he could do the same to MD's head. pt eventually took court ordered meds PO. sensodyne and excedrin not available in pharmacy (pt requesting them). 04/10: continue tx. Pt accepting medication today. 04/11: Keeping to self. Lying in bed most of morning. Declined to meet with T/W. Pt stated, I'm fine. I don't need anything . Listening to headphones in room. Declined court ordered PO medications; received IM medications. Refused vital signs.continue tx plan. 04/12: got IMs yesterday, took PO this morning. sleepy, no concerns or complaints. 04/13: taking PO meds again. slept 7 hours. sleepy again mid morning refusing interview. continue current mgmt. 04/14: sleeping, rousable. denies being sedated or tired, says he's just bored. no questions or complaints. informed of need to check labs. check lithium level and thyroid labs tonight. 04/15: refusing labs. delusional re his brother harming him. verbally abusive toward MD. spat in floor. happy with improvement in proptosis. 04/16: Lying in bed. Calm. cooperative. guarded. Pt reports feeling tired this morning d/t poor sleep last night. Pt stated, I don't need anything. I didn't sleep well so I'm trying to catch up . denies any issues at this time. denies SI/HI/VH/AH. Continue current tx plan. 04/17: more calm today, less explosive. continue current mgmt. 04/18: continues more calm. tolerating moments of frustration without verbally attacking MD. slept only 2 hours overnight, however. continue current mgmt. 04/19 continues to push boundaries and limits with staff mike around cell phone- 04/20 - aggressive with staff and unpredictable- threw water pitcher at staff behind desk/-when seen by provider passive in bed-denying all compaints/sys- no insight 04/21: appears as per last week. more difficult behaviors around cell phone use, did throw pitcher of water at RN monday over phone use and was restrained. continue current mgmt. 04/22: continues to have conflict around cell phone use. consolidate zyprexa at HS to decrease daytime sedation. 1:1 allegra shift until peer he is accusing of not being a real patient and appears to be targeting discharges tomorrow. 04/23: lithium 0.6 on 600 BID. sleeping better, remains delusional (telling SW who is marginally younger than him that she could be his daughter). just changed zyprexa dosing as of last night. continue current regimen and observe for continued stabilization. T/C slight increase in lithium dosing. 04/24: Laying in bed. guarded. calm. did not want to get out of bed to meet with T/W. Pt reports feeling great today but declined to go into detail. listening to music on unit headphones. Pt stated, I'm fine. I don't need anything . denies any issues at this time. denies SI/HI/VH/AH. Continue current tx plan. 04/25: Laying in bed. keeping to self. calm. paranoid. Discussed incident that occurred with staff last evening. Pt stated, the counselor made up a lie yesterday. I said she looks like my ex-girlfriend. I know they are related. They want to make up a lie to irritate me. They are trying to talk to me so they can use recording devices and make me look some kind of way . listening to music on unit headphones. denies SI/HI/VH/AH. Continue current tx plan. 04/26: Continue current regimen and plans. Increase Zyprexa 20 mg q.h.s. fresh air break withheld 04/27: Continue current regimen and plans 04/28: somewhat less irritable and agitated than last week. however, over the weekend was claiming he was the father of a footballer on TV and also that a staff member is a twin of his ex-GF (and he pushed staff member). TFTs improving. continue current mgmt. 04/29: no change in presentation. continue current mgmt. 04/30: no irritable edge today. calm, pleasant. engaging in small talk. reality testing not pressed. continue current mgmt for now. 05/01: no change in presentation. continue current mgmt. 05/02: BPs coming down, DC beta joanne as pt has been refusing anyway. remains not antagonistic toward MD. using phone appropriately. continue current mgmt otherwise. 05/03 continue 05/04: remains delusional, irritable/labile when delusional system confronted. declines to sign TOMMY for [facility] records. continue current mgmt. 05/06: declining to meet with MD, but does meet with medical student. remains upset about yesterday's confrontation re his delusional system. 05/07: Active on unit. keeping to self. pacing unit hallway while listening to unit headphones. medication compliant. patient reports feeling good ; pt stated, I'm just waiting to leave here. I want to return to my life and do things like go grocery shopping . denies SI/HI/VH/AH. Continue current tx plan. 05/08: stable presentation, delusions not being brought to the surface daily. remains affectively improved from admission. continue current mgmt. 05/09: calm, pleasant. no questions or complaints. continue current mgmt. 05/10: no change in presentation. due to lack of improvement in dental infection Sx, DC PCN and start augmentin. Reason for continued inpatient stay Substantial Risk for: harm to self, harm to others, inability to function and rapid decompensation Time Spent With Patient Time: Total time managing care of this patient today ____ minutes.
[2025-05-10 19:22] VITALS: BP 167/75; PULSE 102; RESP 16; TEMP 35.9; O2SAT 99
[2025-05-10 22:58] VITALS: BP 138/70
[2025-05-10] MEDS: OLANZapine ODT 10 MG TAB.RAPDIS 20 MG TRANSLINGU (23:16)
[2025-05-11 08:00] VITALS: BP 112/55; PULSE 88; RESP 16; TEMP 37.1; O2SAT 100
--- NOTE | 2025-05-11 13:20 | P.PNPSI_ITS ---
Subjective Subjective Date of Service: 05/11/25 Reason For Visit: psychotic disorder Interim History: in bed resting, denies any questions or concerns. per staff, slept 6.5 hours last night. guarded, not engaging. ibu for tooth pain. took methimazole today. taking meds otherwise. Mental Status Exam Mental Status Exam Narrative: very tall and thin. adequately dressed and groomed. exopthalmos. superficially cooperative. affect normo-intense, non-labile. mood calm. no SI/AVH expressed. Diagnostics Vital Signs (24Hr): Vital Signs - 24 hr 05/10/25 19:22 05/10/25 22:58 05/11/25 08:00 Temperature 96.7 F L 98.8 F Pulse Rate 102 H 88 Respiratory Rate 16 16 Blood Pressure 167/75 H 138/70 112/55 L Pulse Oximetry 99 100 Oxygen Delivery Method Room Air Room Air BMI result Body Mass Index 22.0 Labs 03/27/25 09:44 04/22/25 20:29 Medications Medications Current Medications Acetaminophen (Acetaminophen 325 Mg Tablet) 650 mg PO Q6H PRN PRN Reason: Headache/Pain, Scale 1-10 Last Admin: 04/01/25 23:20 Dose: 650 mg Al Hydroxide/Mg Hydroxide (Magnesium Hydrox/Alum Hydrox 30 Ml Oral.Susp) 30 ml PO Q6H PRN PRN Reason: Heartburn/Nausea Amoxicillin/Clavulanate Potassium (Amoxicillin/Potassium Clav 875 Mg Tablet) 875 mg PO BID@1100,2300 KRISTAL Last Admin: 05/11/25 12:29 Dose: 875 mg Benzocaine (Benzocaine 20 % Oral Gel 14 Gm Tube) 1 appl MUCOUS MEM QID PRN; Protocol PRN Reason: Mouth Sore Pain Last Admin: 04/26/25 18:33 Dose: 1 appl Diazepam (Diazepam 10 Mg/2 Ml Cartridge) 10 mg IM BID PRN PRN Reason: refusal of lithium, mary floyd Last Admin: 04/11/25 09:56 Dose: 10 mg Haloperidol (Haloperidol 5 Mg Tablet) 5 mg PO Q4H PRN PRN Reason: agitation Hydroxyzine HCl (Hydroxyzine Hcl 25 Mg Tablet) 25 mg PO Q6H PRN PRN Reason: mild anxiety Ibuprofen (Ibuprofen 800 Mg Tablet) 800 mg PO Q6H PRN PRN Reason: pain (pain scale 1-10) Last Admin: 05/10/25 23:19 Dose: 800 mg [place]pel[place] Carbonate (Arpelar Carbonate Er 300 Mg Tablet.Er) 600 mg PO BID [facility] Last Admin: 05/11/25 09:13 Dose: 600 mg Magnesium Hydroxide (Milk Of Magnesia 30 Ml Oral.Susp) 30 ml PO DAILY PRN PRN Reason: Constipation Methimazole (Methimazole 10 Mg Tablet) 20 mg PO DAILY [facility] Last Admin: 05/11/25 09:14 Dose: 20 mg Nicotine (Nicotine 21 Mg Patch.Td24) 21 mg TRANSDERMA DAILY PRN PRN Reason: nicotine cravings Last Admin: 04/12/25 17:06 Dose: 21 mg Nicotine Polacrilex (Nicotine Polacrilex Lozenge 2 Mg Lozenge) 2 mg BUCCAL Q1H PRN PRN Reason: Nicotine Cravings Last Admin: 04/30/25 08:49 Dose: 2 mg Patient Own Medication Excedrin 250/250/65mg 2 each PO Q8H PRN PRN Reason: Migraine Headache Last Admin: 04/18/25 18:03 Dose: 2 each Olanzapine (Olanzapine 10 Mg Vial) 10 mg IM BID PRN PRN Reason: refusal of PO, per maria luz's ord Last Admin: 04/11/25 09:56 Dose: 10 mg Olanzapine (Olanzapine Odt 10 Mg Tab.Rapdis) 20 mg TRANSLINGU BEDTIME [facility] Last Admin: 05/10/25 23:16 Dose: 20 mg Quetiapine Fumarate (Quetiapine Fumarate 200 Mg Tablet) 200 mg PO BEDTIME PRN PRN Reason: insomnia Last Admin: 04/16/25 04:21 Dose: 200 mg Allergies Allergies Allergy/AdvReac Type Severity Reaction Status Date / Time No Known Allergies Allergy Verified 03/26/25 14:24 Assessment & Plan Assessment & Plan (1) Dental abscess: Status: Acute Code(s): K04.7 - Periapical abscess without sinus (2) Schizophrenia: Status: Acute Code(s): F20.9 - Schizophrenia, unspecified Plan 03/26: offer lithium and seroquel for becca. continue methimazole and beta joanne for hyperthyroidism as started at [facility]. trend TFTs. 12b. 03/27: taking methimazole and beta joanne. refused HS meds last night, took morning meds today. continue to encourage medication compliance. 5/23: intermittently taking meds. wants all meds in morning. pressured, manic, paranoid delusions. encouraged to take lithium but states he will not. all meds ordered for morning. 03/29: Keeping to self. no groups. observed laying in bed listening to music on unit headphones. pleasant. Pt reports feeling good today and sleeping well. declined lithium and zyprexa. denies SI/HI/VH/AH. continue current tx plan. 03/30:Irritable. upset he was unable to use his personal hygiene products. Per nursing, pt threatened staff and squeezed tooth paste throughout unit hallway to show his frustration. Pt was able to calm down after speaking with security. declined medications. 03/31: Keeping to self. laying in bed listening to music. refused medications. calm today. Patient reports feeling great ; pt stated, nothing is wrong with me. I'm waiting so I can leave tomorrow. I'm hoping for the best . denies SI/HI/VH/AH. per nursing, slept 6 hours. Continue current tx plan. 04/01: variably calm on the unit versus highly agitated. paranoid delusions, irritability, lability continue. seems to believe MD has met him prior to the present hospitalization and is stalking him. believes brother behind conspiracy to have him psychiatrically hospitalized. has been refusing all medications, including for hyperthyroidism. informed he would be filed on. filed. continue to offer medications. 04/02: continues agitated, belittling, verbally aggressive, refusing all medications including for hyperthyroidism. continue to offer medication. 04/03: paranoid there is a conspiracy to hospitalize him. threatening to stick a stick in staff once he is released by overlay operator. insists his hyperthyroidism was cured at [facility]. asserts there is NOTHING wrong with him. continue to offer medication. 04/04: irritable, rejecting. verbally abuses MD and sends him away: see you on monday [in court]. continue to offer medication for thyroid condition and mental illness. 04/05 continue tx. suspicious and guarded, accusatory, verbal threats to hurt staff and peers 04/06 intrusive, posturing towards staff and peer who he thinks is not real and is an impostor, continues to make verbal threats to harm him but thinks that because he is not real he may not experience any pain. 04/07: threatening statements and behaviors of yesterday noted. pt sleeping this morning, dismissive of MD. 04/08: asleep days. committed and meds ordered by court. 04/09: on being informed of court order and MD insisting on meds, pt escalated to hurling food item in container against wall at high speed and saying he wished he could do the same to MD's head. pt eventually took court ordered meds PO. sensodyne and excedrin not available in pharmacy (pt requesting them). 04/10: continue tx. Pt accepting medication today. 04/11: Keeping to self. Lying in bed most of morning. Declined to meet with T/W. Pt stated, I'm fine. I don't need anything . Listening to headphones in room. Declined court ordered PO medications; received IM medications. Refused vital signs.continue tx plan. 04/12: got IMs yesterday, took PO this morning. sleepy, no concerns or complaints. 04/13: taking PO meds again. slept 7 hours. sleepy again mid morning refusing interview. continue current mgmt. 04/14: sleeping, rousable. denies being sedated or tired, says he's just bored. no questions or complaints. informed of need to check labs. check lithium level and thyroid labs tonight. 04/15: refusing labs. delusional re his brother harming him. verbally abusive toward MD. spat in floor. happy with improvement in proptosis. 04/16: Lying in bed. Calm. cooperative. guarded. Pt reports feeling tired this morning d/t poor sleep last night. Pt stated, I don't need anything. I didn't sleep well so I'm trying to catch up . denies any issues at this time. denies SI/HI/VH/AH. Continue current tx plan. 04/17: more calm today, less explosive. continue current mgmt. 04/18: continues more calm. tolerating moments of frustration without verbally attacking MD. slept only 2 hours overnight, however. continue current mgmt. 04/19 continues to push boundaries and limits with staff mike around cell phone- 04/20 - aggressive with staff and unpredictable- threw water pitcher at staff behind desk/-when seen by provider passive in bed-denying all compaints/sys- no insight 04/21: appears as per last week. more difficult behaviors around cell phone use, did throw pitcher of water at RN monday over phone use and was restrained. continue current mgmt. 04/22: continues to have conflict around cell phone use. consolidate zyprexa at HS to decrease daytime sedation. 1:1 allegra shift until peer he is accusing of not being a real patient and appears to be targeting discharges tomorrow. 04/23: lithium 0.6 on 600 BID. sleeping better, remains delusional (telling SW who is marginally younger than him that she could be his daughter). just changed zyprexa dosing as of last night. continue current regimen and observe for continued stabilization. T/C slight increase in lithium dosing. 04/24: Laying in bed. guarded. calm. did not want to get out of bed to meet with T/W. Pt reports feeling great today but declined to go into detail. listening to music on unit headphones. Pt stated, I'm fine. I don't need anything . denies any issues at this time. denies SI/HI/VH/AH. Continue current tx plan. 04/25: Laying in bed. keeping to self. calm. paranoid. Discussed incident that occurred with staff last evening. Pt stated, the counselor made up a lie yesterday. I said she looks like my ex-girlfriend. I know they are related. They want to make up a lie to irritate me. They are trying to talk to me so they can use recording devices and make me look some kind of way . listening to music on unit headphones. denies SI/HI/VH/AH. Continue current tx plan. 04/26: Continue current regimen and plans. Increase Zyprexa 20 mg q.h.s. fresh air break withheld 04/27: Continue current regimen and plans 04/28: somewhat less irritable and agitated than last week. however, over the weekend was claiming he was the father of a footballer on TV and also that a staff member is a twin of his ex-GF (and he pushed staff member). TFTs improving. continue current mgmt. 04/29: no change in presentation. continue current mgmt. 04/30: no irritable edge today. calm, pleasant. engaging in small talk. reality testing not pressed. continue current mgmt for now. 05/01: no change in presentation. continue current mgmt. 05/02: BPs coming down, DC beta joanne as pt has been refusing anyway. remains not antagonistic toward MD. using phone appropriately. continue current mgmt otherwise. 05/03 continue 05/04: remains delusional, irritable/labile when delusional system confronted. declines to sign TOMMY for [facility] records. continue current mgmt. 05/06: declining to meet with MD, but does meet with medical student. remains upset about yesterday's confrontation re his delusional system. 05/07: Active on unit. keeping to self. pacing unit hallway while listening to unit headphones. medication compliant. patient reports feeling good ; pt stated, I'm just waiting to leave here. I want to return to my life and do things like go grocery shopping . denies SI/HI/VH/AH. Continue current tx plan. 05/08: stable presentation, delusions not being brought to the surface daily. remains affectively improved from admission. continue current mgmt. 05/09: calm, pleasant. no questions or complaints. continue current mgmt. 05/10: no change in presentation. due to lack of improvement in dental infection Sx, DC PCN and start augmentin. 05/11: no change in presentation. continue current mgmt. Reason for continued inpatient stay Substantial Risk for: harm to others, inability to function and rapid decompensation Time Spent With Patient Time: Total time managing care of this patient today ____ minutes.
[2025-05-11 20:00] VITALS: BP 147/75; PULSE 98; RESP 16; TEMP 36.7; O2SAT 99
[2025-05-11] MEDS: OLANZapine ODT 10 MG TAB.RAPDIS 20 MG TRANSLINGU (22:51)
[2025-05-12 10:00] VITALS: BP 145/76; PULSE 102; RESP 16; TEMP 36.5; O2SAT 100
--- NOTE | 2025-05-12 12:32 | HO.PSYCHPN ---
Subjective Subjective Date of Service: 05/12/25 Reason For Visit: psychotic disorder Interim History: in bed. calm, cooperative. tooth feeling a little better. no complaints or requests. per staff, no dep/anx. taking meds. dental pain improving. sleep more restful. was noted to have said re his brother, he has his own stuff going on. Mental Status Exam Mental Status Exam Narrative: very tall and thin. adequately dressed and groomed. exopthalmos. superficially cooperative. affect normo-intense, non-labile. mood calm. no SI/AVH expressed. Diagnostics Vital Signs (24Hr): Vital Signs - 24 hr 05/11/25 20:00 05/12/25 10:00 Temperature 98.1 F 97.7 F Pulse Rate 98 102 H Respiratory Rate 16 16 Blood Pressure 147/75 H 145/76 H Pulse Oximetry 99 100 Oxygen Delivery Method Room Air Room Air BMI result Body Mass Index 22.0 Labs 03/27/25 09:44 04/22/25 20:29 Medications Medications Current Medications Acetaminophen (Acetaminophen 325 Mg Tablet) 650 mg PO Q6H PRN PRN Reason: Headache/Pain, Scale 1-10 Last Admin: 04/01/25 23:20 Dose: 650 mg Al Hydroxide/Mg Hydroxide (Magnesium Hydrox/Alum Hydrox 30 Ml Oral.Susp) 30 ml PO Q6H PRN PRN Reason: Heartburn/Nausea Amoxicillin/Clavulanate Potassium (Amoxicillin/Potassium Clav 875 Mg Tablet) 875 mg PO BID@1100,2300 KRISTAL Last Admin: 05/12/25 11:56 Dose: 875 mg Benzocaine (Benzocaine 20 % Oral Gel 14 Gm Tube) 1 appl MUCOUS MEM QID PRN; Protocol PRN Reason: Mouth Sore Pain Last Admin: 04/26/25 18:33 Dose: 1 appl Diazepam (Diazepam 10 Mg/2 Ml Cartridge) 10 mg IM BID PRN PRN Reason: refusal of lithium, mary floyd Last Admin: 04/11/25 09:56 Dose: 10 mg Haloperidol (Haloperidol 5 Mg Tablet) 5 mg PO Q4H PRN PRN Reason: agitation Hydroxyzine HCl (Hydroxyzine Hcl 25 Mg Tablet) 25 mg PO Q6H PRN PRN Reason: mild anxiety Ibuprofen (Ibuprofen 800 Mg Tablet) 800 mg PO Q6H PRN PRN Reason: pain (pain scale 1-10) Last Admin: 05/11/25 22:51 Dose: 800 mg [place] Carbonate (Carrabelle Carbonate Er 300 Mg Tablet.Er) 600 mg PO BID [facility] Last Admin: 05/12/25 09:50 Dose: 600 mg Magnesium Hydroxide (Milk Of Magnesia 30 Ml Oral.Susp) 30 ml PO DAILY PRN PRN Reason: Constipation Methimazole (Methimazole 10 Mg Tablet) 20 mg PO DAILY [facility] Last Admin: 05/12/25 09:51 Dose: 20 mg Nicotine (Nicotine 21 Mg Patch.Td24) 21 mg TRANSDERMA DAILY PRN PRN Reason: nicotine cravings Last Admin: 04/12/25 17:06 Dose: 21 mg Nicotine Polacrilex (Nicotine Polacrilex Lozenge 2 Mg Lozenge) 2 mg BUCCAL Q1H PRN PRN Reason: Nicotine Cravings Last Admin: 04/30/25 08:49 Dose: 2 mg Patient Own Medication Excedrin 250/250/65mg 2 each PO Q8H PRN PRN Reason: Migraine Headache Last Admin: 04/18/25 18:03 Dose: 2 each Olanzapine (Olanzapine 10 Mg Vial) 10 mg IM BID PRN PRN Reason: refusal of PO, per maria luz's ord Last Admin: 04/11/25 09:56 Dose: 10 mg Olanzapine (Olanzapine Odt 10 Mg Tab.Rapdis) 20 mg TRANSLINGU BEDTIME [facility] Last Admin: 05/11/25 22:51 Dose: 20 mg Quetiapine Fumarate (Quetiapine Fumarate 200 Mg Tablet) 200 mg PO BEDTIME PRN PRN Reason: insomnia Last Admin: 04/16/25 04:21 Dose: 200 mg Allergies Allergies Allergy/AdvReac Type Severity Reaction Status Date / Time No Known Allergies Allergy Verified 03/26/25 14:24 Assessment & Plan Assessment & Plan (1) Dental abscess: Status: Acute Code(s): K04.7 - Periapical abscess without sinus (2) Schizophrenia: Status: Acute Code(s): F20.9 - Schizophrenia, unspecified Plan 03/26: offer lithium and seroquel for becca. continue methimazole and beta joanne for hyperthyroidism as started at [facility]. trend TFTs. 12b. 03/27: taking methimazole and beta joanne. refused HS meds last night, took morning meds today. continue to encourage medication compliance. 03/28: intermittently taking meds. wants all meds in morning. pressured, manic, paranoid delusions. encouraged to take lithium but states he will not. all meds ordered for morning. 03/29: Keeping to self. no groups. observed laying in bed listening to music on unit headphones. pleasant. Pt reports feeling good today and sleeping well. declined lithium and zyprexa. denies SI/HI/VH/AH. continue current tx plan. 03/30:Irritable. upset he was unable to use his personal hygiene products. Per nursing, pt threatened staff and squeezed tooth paste throughout unit hallway to show his frustration. Pt was able to calm down after speaking with security. declined medications. 03/31: Keeping to self. laying in bed listening to music. refused medications. calm today. Patient reports feeling great ; pt stated, nothing is wrong with me. I'm waiting so I can leave tomorrow. I'm hoping for the best . denies SI/HI/VH/AH. per nursing, slept 6 hours. Continue current tx plan. 04/01: variably calm on the unit versus highly agitated. paranoid delusions, irritability, lability continue. seems to believe MD has met him prior to the present hospitalization and is stalking him. believes brother behind conspiracy to have him psychiatrically hospitalized. has been refusing all medications, including for hyperthyroidism. informed he would be filed on. filed. continue to offer medications. 04/02: continues agitated, belittling, verbally aggressive, refusing all medications including for hyperthyroidism. continue to offer medication. 04/03: paranoid there is a conspiracy to hospitalize him. threatening to stick a stick in staff once he is released by diving judge. insists his hyperthyroidism was cured at [facility]. asserts there is NOTHING wrong with him. continue to offer medication. 04/04: irritable, rejecting. verbally abuses MD and sends him away: see you on monday [in court]. continue to offer medication for thyroid condition and mental illness. 04/05 continue tx. suspicious and guarded, accusatory, verbal threats to hurt staff and peers 04/06 intrusive, posturing towards staff and peer who he thinks is not real and is an impostor, continues to make verbal threats to harm him but thinks that because he is not real he may not experience any pain. 04/07: threatening statements and behaviors of yesterday noted. pt sleeping this morning, dismissive of MD. 04/08: asleep days. committed and meds ordered by court. 04/09: on being informed of court order and MD insisting on meds, pt escalated to hurling food item in container against wall at high speed and saying he wished he could do the same to MD's head. pt eventually took court ordered meds PO. sensodyne and excedrin not available in pharmacy (pt requesting them). 04/10: continue tx. Pt accepting medication today. 04/11: Keeping to self. Lying in bed most of morning. Declined to meet with T/W. Pt stated, I'm fine. I don't need anything . Listening to headphones in room. Declined court ordered PO medications; received IM medications. Refused vital signs.continue tx plan. 04/12: got IMs yesterday, took PO this morning. sleepy, no concerns or complaints. 04/13: taking PO meds again. slept 7 hours. sleepy again mid morning refusing interview. continue current mgmt. 04/14: sleeping, rousable. denies being sedated or tired, says he's just bored. no questions or complaints. informed of need to check labs. check lithium level and thyroid labs tonight. 04/15: refusing labs. delusional re his brother harming him. verbally abusive toward MD. spat in floor. happy with improvement in proptosis. 04/16: Lying in bed. Calm. cooperative. guarded. Pt reports feeling tired this morning d/t poor sleep last night. Pt stated, I don't need anything. I didn't sleep well so I'm trying to catch up . denies any issues at this time. denies SI/HI/VH/AH. Continue current tx plan. 04/17: more calm today, less explosive. continue current mgmt. 04/18: continues more calm. tolerating moments of frustration without verbally attacking MD. slept only 2 hours overnight, however. continue current mgmt. 04/19 continues to push boundaries and limits with staff mike around cell phone- 04/20 - aggressive with staff and unpredictable- threw water pitcher at staff behind desk/-when seen by provider passive in bed-denying all compaints/sys- no insight 04/21: appears as per last week. more difficult behaviors around cell phone use, did throw pitcher of water at RN monday over phone use and was restrained. continue current mgmt. 04/22: continues to have conflict around cell phone use. consolidate zyprexa at HS to decrease daytime sedation. 1:1 allegra shift until peer he is accusing of not being a real patient and appears to be targeting discharges tomorrow. 04/23: lithium 0.6 on 600 BID. sleeping better, remains delusional (telling SW who is marginally younger than him that she could be his daughter). just changed zyprexa dosing as of last night. continue current regimen and observe for continued stabilization. T/C slight increase in lithium dosing. 04/24: Laying in bed. guarded. calm. did not want to get out of bed to meet with T/W. Pt reports feeling great today but declined to go into detail. listening to music on unit headphones. Pt stated, I'm fine. I don't need anything . denies any issues at this time. denies SI/HI/VH/AH. Continue current tx plan. 04/25: Laying in bed. keeping to self. calm. paranoid. Discussed incident that occurred with staff last evening. Pt stated, the counselor made up a lie yesterday. I said she looks like my ex-girlfriend. I know they are related. They want to make up a lie to irritate me. They are trying to talk to me so they can use recording devices and make me look some kind of way . listening to music on unit headphones. denies SI/HI/VH/AH. Continue current tx plan. 04/26: Continue current regimen and plans. Increase Zyprexa 20 mg q.h.s. fresh air break withheld 04/27: Continue current regimen and plans 04/28: somewhat less irritable and agitated than last week. however, over the weekend was claiming he was the father of a footballer on TV and also that a staff member is a twin of his ex-GF (and he pushed staff member). TFTs improving. continue current mgmt. 04/29: no change in presentation. continue current mgmt. 04/30: no irritable edge today. calm, pleasant. engaging in small talk. reality testing not pressed. continue current mgmt for now. 05/01: no change in presentation. continue current mgmt. 05/02: BPs coming down, DC beta joanne as pt has been refusing anyway. remains not antagonistic toward MD. using phone appropriately. continue current mgmt otherwise. 05/03 continue 05/04: remains delusional, irritable/labile when delusional system confronted. declines to sign TOMMY for [facility] records. continue current mgmt. 05/06: declining to meet with MD, but does meet with medical student. remains upset about yesterday's confrontation re his delusional system. 05/07: Active on unit. keeping to self. pacing unit hallway while listening to unit headphones. medication compliant. patient reports feeling good ; pt stated, I'm just waiting to leave here. I want to return to my life and do things like go grocery shopping . denies SI/HI/VH/AH. Continue current tx plan. 05/08: stable presentation, delusions not being brought to the surface daily. remains affectively improved from admission. continue current mgmt. 05/09: calm, pleasant. no questions or complaints. continue current mgmt. 05/10: no change in presentation. due to lack of improvement in dental infection Sx, DC PCN and start augmentin. 05/11: no change in presentation. continue current mgmt. 05/12: as for yesterday. dental pain improving a bit. Reason for continued inpatient stay Substantial Risk for: harm to self, harm to others, inability to function, rapid decompensation and med/psych decompensation Time Spent With Patient Time: Total time managing care of this patient today _25___ minutes.
[2025-05-12 19:53] VITALS: BP 161/75; PULSE 98; RESP 16; TEMP 36.1; O2SAT 100
[2025-05-12] MEDS: OLANZapine ODT 10 MG TAB.RAPDIS 20 MG TRANSLINGU (23:03)
--- NOTE | 2025-05-13 14:31 | P.PNPSI_ITS ---
Subjective Subjective Date of Service: 05/13/25 Reason For Visit: psychotic disorder Interim History: awake in room. tooth feeling a bit better. no complaints or requests. per collateral from medical student, pt told her his brother poisoned him, which caused his hyperthyroidism. per staff, denies Sx. guarded. eating well. attending some groups. taking meds. superficial. dental pain 12/16. slept 6 hours. Mental Status Exam Mental Status Exam Narrative: very tall and thin. adequately dressed and groomed. exopthalmos. superficially cooperative. affect normo-intense, non-labile. mood calm. no SI/AVH expressed. Diagnostics Vital Signs (24Hr): Vital Signs - 24 hr 05/12/25 19:53 Temperature 96.9 F Pulse Rate 98 Respiratory Rate 16 Blood Pressure 161/75 H Pulse Oximetry 100 Oxygen Delivery Method Room Air BMI result Body Mass Index 22.0 Labs 03/27/25 09:44 04/22/25 20:29 Medications Medications Current Medications Acetaminophen (Acetaminophen 325 Mg Tablet) 650 mg PO Q6H PRN PRN Reason: Headache/Pain, Scale 1-10 Last Admin: 04/01/25 23:20 Dose: 650 mg Al Hydroxide/Mg Hydroxide (Magnesium Hydrox/Alum Hydrox 30 Ml Oral.Susp) 30 ml PO Q6H PRN PRN Reason: Heartburn/Nausea Amoxicillin/Clavulanate Potassium (Amoxicillin/Potassium Clav 875 Mg Tablet) 875 mg PO BID@1100,2300 KRISTAL Last Admin: 05/13/25 12:04 Dose: 875 mg Benzocaine (Benzocaine 20 % Oral Gel 14 Gm Tube) 1 appl MUCOUS MEM QID PRN; Protocol PRN Reason: Mouth Sore Pain Last Admin: 04/26/25 18:33 Dose: 1 appl Diazepam (Diazepam 10 Mg/2 Ml Cartridge) 10 mg IM BID PRN PRN Reason: refusal of lithium, mary floyd Last Admin: 04/11/25 09:56 Dose: 10 mg Haloperidol (Haloperidol 5 Mg Tablet) 5 mg PO Q4H PRN PRN Reason: agitation Hydroxyzine HCl (Hydroxyzine Hcl 25 Mg Tablet) 25 mg PO Q6H PRN PRN Reason: mild anxiety Ibuprofen (Ibuprofen 800 Mg Tablet) 800 mg PO Q6H PRN PRN Reason: pain (pain scale 1-10) Last Admin: 05/12/25 23:02 Dose: 800 mg [place] Carbonate ([place] Carbonate Er 300 Mg Tablet.Er) 600 mg PO BID [facility] Last Admin: 05/13/25 09:52 Dose: 600 mg Magnesium Hydroxide (Milk Of Magnesia 30 Ml Oral.Susp) 30 ml PO DAILY PRN PRN Reason: Constipation Methimazole (Methimazole 10 Mg Tablet) 20 mg PO DAILY [facility] Last Admin: 05/13/25 09:52 Dose: 20 mg Nicotine (Nicotine 21 Mg Patch.Td24) 21 mg TRANSDERMA DAILY PRN PRN Reason: nicotine cravings Last Admin: 04/12/25 17:06 Dose: 21 mg Nicotine Polacrilex (Nicotine Polacrilex Lozenge 2 Mg Lozenge) 2 mg BUCCAL Q1H PRN PRN Reason: Nicotine Cravings Last Admin: 04/30/25 08:49 Dose: 2 mg Patient Own Medication Excedrin 250/250/65mg 2 each PO Q8H PRN PRN Reason: Migraine Headache Last Admin: 04/18/25 18:03 Dose: 2 each Olanzapine (Olanzapine 10 Mg Vial) 10 mg IM BID PRN PRN Reason: refusal of PO, per maria luz's ord Last Admin: 04/11/25 09:56 Dose: 10 mg Olanzapine (Olanzapine Odt 10 Mg Tab.Rapdis) 20 mg TRANSLINGU BEDTIME [facility] Last Admin: 05/12/25 23:03 Dose: 20 mg Quetiapine Fumarate (Quetiapine Fumarate 200 Mg Tablet) 200 mg PO BEDTIME PRN PRN Reason: insomnia Last Admin: 04/16/25 04:21 Dose: 200 mg Allergies Allergies Allergy/AdvReac Type Severity Reaction Status Date / Time No Known Allergies Allergy Verified 03/26/25 14:24 Assessment & Plan Assessment & Plan (1) Dental abscess: Status: Acute Code(s): K04.7 - Periapical abscess without sinus (2) Schizophrenia: Status: Acute Code(s): F20.9 - Schizophrenia, unspecified Plan 03/26: offer lithium and seroquel for becca. continue methimazole and beta joanne for hyperthyroidism as started at [facility]. trend TFTs. 12b. 03/27: taking methimazole and beta joanne. refused HS meds last night, took morning meds today. continue to encourage medication compliance. 03/28: intermittently taking meds. wants all meds in morning. pressured, manic, paranoid delusions. encouraged to take lithium but states he will not. all meds ordered for morning. 03/29: Keeping to self. no groups. observed laying in bed listening to music on unit headphones. pleasant. Pt reports feeling good today and sleeping well. declined lithium and zyprexa. denies SI/HI/VH/AH. continue current tx plan. 03/30:Irritable. upset he was unable to use his personal hygiene products. Per nursing, pt threatened staff and squeezed tooth paste throughout unit hallway to show his frustration. Pt was able to calm down after speaking with security. declined medications. 03/31: Keeping to self. laying in bed listening to music. refused medications. calm today. Patient reports feeling great ; pt stated, nothing is wrong with me. I'm waiting so I can leave tomorrow. I'm hoping for the best . denies SI/HI/VH/AH. per nursing, slept 6 hours. Continue current tx plan. 04/01: variably calm on the unit versus highly agitated. paranoid delusions, irritability, lability continue. seems to believe MD has met him prior to the present hospitalization and is stalking him. believes brother behind conspiracy to have him psychiatrically hospitalized. has been refusing all medications, including for hyperthyroidism. informed he would be filed on. filed. continue to offer medications. 04/02: continues agitated, belittling, verbally aggressive, refusing all medications including for hyperthyroidism. continue to offer medication. 04/03: paranoid there is a conspiracy to hospitalize him. threatening to stick a stick in staff once he is released by sulfate drier machine operator. insists his hyperthyroidism was cured at [facility]. asserts there is NOTHING wrong with him. continue to offer medication. 04/04: irritable, rejecting. verbally abuses MD and sends him away: see you on monday [in court]. continue to offer medication for thyroid condition and mental illness. 04/05 continue tx. suspicious and guarded, accusatory, verbal threats to hurt staff and peers 04/06 intrusive, posturing towards staff and peer who he thinks is not real and is an impostor, continues to make verbal threats to harm him but thinks that because he is not real he may not experience any pain. 04/07: threatening statements and behaviors of yesterday noted. pt sleeping this morning, dismissive of MD. 04/08: asleep days. committed and meds ordered by court. 04/09: on being informed of court order and MD insisting on meds, pt escalated to hurling food item in container against wall at high speed and saying he wished he could do the same to MD's head. pt eventually took court ordered meds PO. sensodyne and excedrin not available in pharmacy (pt requesting them). 04/10: continue tx. Pt accepting medication today. 04/11: Keeping to self. Lying in bed most of morning. Declined to meet with T/W. Pt stated, I'm fine. I don't need anything . Listening to headphones in room. Declined court ordered PO medications; received IM medications. Refused vital signs.continue tx plan. 04/12: got IMs yesterday, took PO this morning. sleepy, no concerns or complaints. 04/13: taking PO meds again. slept 7 hours. sleepy again mid morning refusing interview. continue current mgmt. 04/14: sleeping, rousable. denies being sedated or tired, says he's just bored. no questions or complaints. informed of need to check labs. check lithium level and thyroid labs tonight. 04/15: refusing labs. delusional re his brother harming him. verbally abusive toward MD. spat in floor. happy with improvement in proptosis. 04/16: Lying in bed. Calm. cooperative. guarded. Pt reports feeling tired this morning d/t poor sleep last night. Pt stated, I don't need anything. I didn't sleep well so I'm trying to catch up . denies any issues at this time. denies SI/HI/VH/AH. Continue current tx plan. 04/17: more calm today, less explosive. continue current mgmt. 04/18: continues more calm. tolerating moments of frustration without verbally attacking MD. slept only 2 hours overnight, however. continue current mgmt. 04/19 continues to push boundaries and limits with staff mike around cell phone- 04/20 - aggressive with staff and unpredictable- threw water pitcher at staff behind desk/-when seen by provider passive in bed-denying all compaints/sys- no insight 04/21: appears as per last week. more difficult behaviors around cell phone use, did throw pitcher of water at RN monday over phone use and was restrained. continue current mgmt. 04/22: continues to have conflict around cell phone use. consolidate zyprexa at HS to decrease daytime sedation. 1:1 allegra shift until peer he is accusing of not being a real patient and appears to be targeting discharges tomorrow. 04/23: lithium 0.6 on 600 BID. sleeping better, remains delusional (telling SW who is marginally younger than him that she could be his daughter). just changed zyprexa dosing as of last night. continue current regimen and observe for continued stabilization. T/C slight increase in lithium dosing. 04/24: Laying in bed. guarded. calm. did not want to get out of bed to meet with T/W. Pt reports feeling great today but declined to go into detail. listening to music on unit headphones. Pt stated, I'm fine. I don't need anything . denies any issues at this time. denies SI/HI/VH/AH. Continue current tx plan. 04/25: Laying in bed. keeping to self. calm. paranoid. Discussed incident that occurred with staff last evening. Pt stated, the counselor made up a lie yesterday. I said she looks like my ex-girlfriend. I know they are related. They want to make up a lie to irritate me. They are trying to talk to me so they can use recording devices and make me look some kind of way . listening to music on unit headphones. denies SI/HI/VH/AH. Continue current tx plan. 04/26: Continue current regimen and plans. Increase Zyprexa 20 mg q.h.s. fresh air break withheld 04/27: Continue current regimen and plans 04/28: somewhat less irritable and agitated than last week. however, over the weekend was claiming he was the father of a footballer on TV and also that a staff member is a twin of his ex-GF (and he pushed staff member). TFTs improving. continue current mgmt. 04/29: no change in presentation. continue current mgmt. 04/30: no irritable edge today. calm, pleasant. engaging in small talk. reality testing not pressed. continue current mgmt for now. 05/01: no change in presentation. continue current mgmt. 05/02: BPs coming down, DC beta joanne as pt has been refusing anyway. remains not antagonistic toward MD. using phone appropriately. continue current mgmt otherwise. 05/03 continue 05/04: remains delusional, irritable/labile when delusional system confronted. declines to sign TOMMY for [facility] records. continue current mgmt. 05/06: declining to meet with MD, but does meet with medical student. remains upset about yesterday's confrontation re his delusional system. 05/07: Active on unit. keeping to self. pacing unit hallway while listening to unit headphones. medication compliant. patient reports feeling good ; pt stated, I'm just waiting to leave here. I want to return to my life and do things like go grocery shopping . denies SI/HI/VH/AH. Continue current tx plan. 05/08: stable presentation, delusions not being brought to the surface daily. remains affectively improved from admission. continue current mgmt. 05/09: calm, pleasant. no questions or complaints. continue current mgmt. 05/10: no change in presentation. due to lack of improvement in dental infection Sx, DC PCN and start augmentin. 05/11: no change in presentation. continue current mgmt. 05/12: as for yesterday. dental pain improving a bit. 05/13: expressed to medical student that his brother poisoned him, causing his thyroid disease. no change in presentation. continue current mgmt. Reason for continued inpatient stay Substantial Risk for: harm to self, harm to others and inability to function Time Spent With Patient Time: Total time managing care of this patient today __25__ minutes.
[2025-05-13 20:20] VITALS: BP 154/70; PULSE 97; RESP 16; TEMP 36.6; O2SAT 100
[2025-05-13] MEDS: OLANZapine ODT 10 MG TAB.RAPDIS 20 MG TRANSLINGU (23:11)
--- NOTE | 2025-05-14 12:25 | PC.NURSE ---
Addendum entered by Shawna Amaral RN 05/14/25 12:32: 10 minuets later, patient approached the desk requesting his abx. Med given and documented as unscheduled. Original Note: Patient declined his scheduled Amoxicillin this afternoon after multiple attempts. Provider Rosalie Morales notified.
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
[2025-05-14 19:32] VITALS: BP 160/70; PULSE 90; RESP 16; TEMP 36.5; O2SAT 100
[2025-05-14] MEDS: OLANZapine ODT 10 MG TAB.RAPDIS 20 MG TRANSLINGU (23:09)
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
[2025-05-15 20:05] VITALS: BP 135/68; PULSE 89; RESP 16; TEMP 37.4; O2SAT 100
[2025-05-15] MEDS: OLANZapine ODT 10 MG TAB.RAPDIS 20 MG TRANSLINGU (23:06)
[2025-05-16 08:00] VITALS: BP 138/72; PULSE 92; RESP 18; TEMP 36.8; O2SAT 100
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
[2025-05-16 20:00] VITALS: BP 138/64; PULSE 92; RESP 16; TEMP 37; O2SAT 98
[2025-05-16] MEDS: OLANZapine ODT 10 MG TAB.RAPDIS 20 MG TRANSLINGU (23:01)
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
[2025-05-17] MEDS: OLANZapine ODT 10 MG TAB.RAPDIS 20 MG TRANSLINGU (23:19)
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
[2025-05-18 20:00] VITALS: BP 155/72; PULSE 88; RESP 16; TEMP 37.8; O2SAT 99
[2025-05-18] MEDS: OLANZapine ODT 10 MG TAB.RAPDIS 20 MG TRANSLINGU (23:07)
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
[2025-05-19 19:35] VITALS: BP 153/78; PULSE 89; RESP 16; TEMP 36.6; O2SAT 100
[2025-05-19] MEDS: OLANZapine ODT 10 MG TAB.RAPDIS 20 MG TRANSLINGU (23:11)
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
[2025-05-20 20:00] VITALS: BP 164/71; PULSE 92; RESP 16; TEMP 36.8; O2SAT 100
[2025-05-20 20:21] LABS: Lithium 0.55 mmol/L (0.60-1.20)
[2025-05-20 20:34] LABS: Anion Gap 11 (12-20); Blood Urea Nitrogen 22 mg/dL (9-16); Calcium 9.2 mg/dL (8.4-10.2); Carbon Dioxide 27 mmol/L (22-29); Chloride 105 mmol/L (96-108); Creatinine Clr Calc Pharmacy 153.5; Estimated Glomerular Filt Rate > 60; Potassium 4.6 mmol/L (3.3-5.1); Sodium 138 mmol/L (135-145)
[2025-05-20 21:28] LABS: Free T4 (Free Thyroxine) 0.99 ng/dL (0.71-1.85)
[2025-05-20] MEDS: OLANZapine ODT 10 MG TAB.RAPDIS 20 MG TRANSLINGU (23:07)
[2025-05-21 08:00] VITALS: RESP 18
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
[2025-05-21 20:00] VITALS: BP 145/75; PULSE 106; RESP 16; TEMP 36.5; O2SAT 99
[2025-05-21] MEDS: OLANZapine ODT 10 MG TAB.RAPDIS 20 MG TRANSLINGU (23:25)
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
[2025-05-22] MEDS: OLANZapine ODT 10 MG TAB.RAPDIS 20 MG TRANSLINGU (23:10)
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
[2025-05-23 19:49] VITALS: BP 146/89; PULSE 99; RESP 16; TEMP 36.8; O2SAT 98
[2025-05-23] MEDS: OLANZapine ODT 10 MG TAB.RAPDIS 20 MG TRANSLINGU (23:10)
[2025-05-24 10:04] VITALS: BP 117/60; PULSE 89; RESP 16; TEMP 36.7; O2SAT 98
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
[2025-05-24 19:40] VITALS: BP 146/76; PULSE 98; RESP 16; TEMP 36.4; O2SAT 100
[2025-05-24] MEDS: OLANZapine ODT 10 MG TAB.RAPDIS 20 MG TRANSLINGU (23:32)
--- NOTE | 2025-05-24 23:34 | PC.NURSE ---
Jean became verbally aggressive and physically intimidating to this production underwriter when she attempted to assess if he was talking on the phone or accessing the internet, as he appeared to be scrolling and he was not heard talking. Did I break any laws, have I broken any laws to get here. You fake ass bitch you can use your fucking phone any time you want I haven't done anything and I can only use my phone twice a day. how can I use my phone for only 1/2 an hour when it takes me 1/2 an hour to access the wi-fi. I wass playing with you the other day I was hiding behind the thing and then you found me it was a game, we were just a joking and then you went and lied to the doctor and told him that I wanted to change the time of my medication I said I wanted at 11 and then I made joke and said I could take it at 2am but it was a joke. get the fuck out of here you fake bitch
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
[2025-05-25 20:00] VITALS: BP 141/61; PULSE 93; RESP 16; TEMP 36.9; O2SAT 99
[2025-05-25] MEDS: OLANZapine ODT 10 MG TAB.RAPDIS 20 MG TRANSLINGU (23:24)
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
--- NOTE | 2025-05-26 15:23 | HO.PSYCHPN ---
Subjective Subjective Date of Service: 05/26/25 Reason For Visit: psychotic disorder Interim History: pt lying in bed, declined to respond to MD. per staff, c/o dental pain. 05/24 misusing phone, outburst at RN, then quickly apologized. taking meds. slept 6 hours. Mental Status Exam Mental Status Exam Narrative: very tall and thin. under blanket. did not respond to MD. no SI/AVH expressed. Diagnostics Vital Signs (24Hr): Vital Signs - 24 hr 05/25/25 20:00 Temperature 98.4 F Pulse Rate 93 Respiratory Rate 16 Blood Pressure 141/61 H Pulse Oximetry 99 Oxygen Delivery Method Room Air BMI result Body Mass Index 22.0 Labs 03/27/25 09:44 05/20/25 19:54 Medications Medications Current Medications Acetaminophen (Acetaminophen 325 Mg Tablet) 650 mg PO Q6H PRN PRN Reason: Headache/Pain, Scale 1-10 Last Admin: 04/01/25 23:20 Dose: 650 mg Al Hydroxide/Mg Hydroxide (Magnesium Hydrox/Alum Hydrox 30 Ml Oral.Susp) 30 ml PO Q6H PRN PRN Reason: Heartburn/Nausea Amoxicillin/Clavulanate Potassium (Amoxicillin/Potassium Clav 875 Mg Tablet) 875 mg PO BID [facility] Last Admin: 05/26/25 09:58 Dose: 875 mg Benzocaine (Benzocaine 20 % Oral Gel 14 Gm Tube) 1 appl MUCOUS MEM QID PRN; Protocol PRN Reason: Mouth Sore Pain Last Admin: 04/26/25 18:33 Dose: 1 appl Diazepam (Diazepam 10 Mg/2 Ml Cartridge) 10 mg IM BID PRN PRN Reason: refusal of lithium, mary floyd Last Admin: 04/11/25 09:56 Dose: 10 mg Haloperidol (Haloperidol 5 Mg Tablet) 5 mg PO Q4H PRN PRN Reason: agitation Hydroxyzine HCl (Hydroxyzine Hcl 25 Mg Tablet) 25 mg PO Q6H PRN PRN Reason: mild anxiety Ibuprofen (Ibuprofen 800 Mg Tablet) 800 mg PO Q6H PRN PRN Reason: pain (pain scale 1-10) Last Admin: 05/26/25 09:59 Dose: 800 mg [place] Carbonate ([place] Carbonate Er 300 Mg Tablet.Er) 600 mg PO DAILY [facility] Last Admin: 05/26/25 09:59 Dose: 600 mg [place] Carbonate ([place] Carbonate Er 450 Mg Tablet.Er) 900 mg PO DAILY@2300 [facility] Last Admin: 05/25/25 23:24 Dose: 900 mg Magnesium Hydroxide (Milk Of Magnesia 30 Ml Oral.Susp) 30 ml PO DAILY PRN PRN Reason: Constipation Methimazole (Methimazole 5 Mg Tablet) 15 mg PO DAILY [facility] Stop: 05/31/25 08:59 Methimazole (Methimazole 10 Mg Tablet) 10 mg PO DAILY [facility] Nicotine (Nicotine 21 Mg Patch.Td24) 21 mg TRANSDERMA DAILY PRN PRN Reason: nicotine cravings Last Admin: 04/12/25 17:06 Dose: 21 mg Nicotine Polacrilex (Nicotine Polacrilex Lozenge 2 Mg Lozenge) 2 mg BUCCAL Q1H PRN PRN Reason: Nicotine Cravings Last Admin: 04/30/25 08:49 Dose: 2 mg Patient Own Medication Excedrin 250/250/65mg 2 each PO Q8H PRN PRN Reason: Migraine Headache Last Admin: 04/18/25 18:03 Dose: 2 each Olanzapine (Olanzapine 10 Mg Vial) 10 mg IM BID PRN PRN Reason: refusal of PO, per maria luz's ord Last Admin: 04/11/25 09:56 Dose: 10 mg Olanzapine (Olanzapine Odt 10 Mg Tab.Rapdis) 20 mg TRANSLINGU DAILY@2300 [facility] Last Admin: 05/25/25 23:24 Dose: 20 mg Quetiapine Fumarate (Quetiapine Fumarate 200 Mg Tablet) 200 mg PO BEDTIME PRN PRN Reason: insomnia Last Admin: 04/16/25 04:21 Dose: 200 mg Allergies Allergies Allergy/AdvReac Type Severity Reaction Status Date / Time No Known Allergies Allergy Verified 03/26/25 14:24 Assessment & Plan Assessment & Plan (1) Graves disease: Status: Acute Code(s): E05.00 - Thyrotoxicosis with diffuse goiter without thyrotoxic crisis or storm Assessment and Plan: Hyperthyroidism/Graves disease. He will need follow up with endocrinology as an outpatient He will also need a primary care doctor referral as an outpatient Discussed with Dr. Bejarano, patient will need free T4 weekly Decrease Methimazole to 15 mgs daily for three days and then 10 mgs daily- discussed with patient he is aware of plan and rationale. TSH and free T4 every 4 weeks. No need to draw thyroid stimulation immunology or TSH receptor AB (2) Dental abscess: Status: Acute Code(s): K04.7 - Periapical abscess without sinus Assessment and Plan: Carious tooth/dental infection Recently treated with PEN VK 500 mg q.6 hours for 7 days Patient will need follow up with dentist on discharge for tooth extraction Motrin helping pain. (3) Becca: Status: Acute Code(s): F30.9 - Manic episode, unspecified Plan 03/26: offer lithium and seroquel for becca. continue methimazole and beta joanne for hyperthyroidism as started at [facility]. trend TFTs. 12b. 03/27: taking methimazole and beta joanne. refused HS meds last night, took morning meds today. continue to encourage medication compliance. 03/28: intermittently taking meds. wants all meds in morning. pressured, manic, paranoid delusions. encouraged to take lithium but states he will not. all meds ordered for morning. 03/29: Keeping to self. no groups. observed laying in bed listening to music on unit headphones. pleasant. Pt reports feeling good today and sleeping well. declined lithium and zyprexa. denies SI/HI/VH/AH. continue current tx plan. 03/30:Irritable. upset he was unable to use his personal hygiene products. Per nursing, pt threatened staff and squeezed tooth paste throughout unit hallway to show his frustration. Pt was able to calm down after speaking with security. declined medications. 03/31: Keeping to self. laying in bed listening to music. refused medications. calm today. Patient reports feeling great ; pt stated, nothing is wrong with me. I'm waiting so I can leave tomorrow. I'm hoping for the best . denies SI/HI/VH/AH. per nursing, slept 6 hours. Continue current tx plan. 04/01: variably calm on the unit versus highly agitated. paranoid delusions, irritability, lability continue. seems to believe has met him prior to the present hospitalization and is stalking him. believes brother behind conspiracy to have him psychiatrically hospitalized. has been refusing all medications, including for hyperthyroidism. informed he would be filed on. filed. continue to offer medications. 04/02: continues agitated, belittling, verbally aggressive, refusing all medications including for hyperthyroidism. continue to offer medication. 04/03: paranoid there is a conspiracy to hospitalize him. threatening to stick a stick in staff once he is released by county judge. insists his hyperthyroidism was cured at [facility]. asserts there is NOTHING wrong with him. continue to offer medication. 04/04: irritable, rejecting. verbally abuses MD and sends him away: see you on monday [in court]. continue to offer medication for thyroid condition and mental illness. 04/05 continue tx. suspicious and guarded, accusatory, verbal threats to hurt staff and peers 04/06 intrusive, posturing towards staff and peer who he thinks is not real and is an impostor, continues to make verbal threats to harm him but thinks that because he is not real he may not experience any pain. 04/07: threatening statements and behaviors of yesterday noted. pt sleeping this morning, dismissive of MD. 04/08: asleep days. committed and meds ordered by court. 04/09: on being informed of court order and MD insisting on meds, pt escalated to hurling food item in container against wall at high speed and saying he wished he could do the same to MD's head. pt eventually took court ordered meds PO. sensodyne and excedrin not available in pharmacy (pt requesting them). 04/10: continue tx. Pt accepting medication today. 04/11: Keeping to self. Lying in bed most of morning. Declined to meet with T/W. Pt stated, I'm fine. I don't need anything . Listening to headphones in room. Declined court ordered PO medications; received IM medications. Refused vital signs.continue tx plan. 04/12: got IMs yesterday, took PO this morning. sleepy, no concerns or complaints. 04/13: taking PO meds again. slept 7 hours. sleepy again mid morning refusing interview. continue current mgmt. 04/14: sleeping, rousable. denies being sedated or tired, says he's just bored. no questions or complaints. informed of need to check labs. check lithium level and thyroid labs tonight. 04/15: refusing labs. delusional re his brother harming him. verbally abusive toward MD. spat in floor. happy with improvement in proptosis. 04/16: Lying in bed. Calm. cooperative. guarded. Pt reports feeling tired this morning d/t poor sleep last night. Pt stated, I don't need anything. I didn't sleep well so I'm trying to catch up . denies any issues at this time. denies SI/HI/VH/AH. Continue current tx plan. 04/17: more calm today, less explosive. continue current mgmt. 04/18: continues more calm. tolerating moments of frustration without verbally attacking MD. slept only 2 hours overnight, however. continue current mgmt. 04/19 continues to push boundaries and limits with staff mike around cell phone- 04/20 - aggressive with staff and unpredictable- threw water pitcher at staff behind desk/-when seen by provider passive in bed-denying all compaints/sys- no insight 04/21: appears as per last week. more difficult behaviors around cell phone use, did throw pitcher of water at RN monday over phone use and was restrained. continue current mgmt. 04/22: continues to have conflict around cell phone use. consolidate zyprexa at HS to decrease daytime sedation. 1:1 allegra shift until peer he is accusing of not being a real patient and appears to be targeting discharges tomorrow. 04/23: lithium 0.6 on 600 BID. sleeping better, remains delusional (telling SW who is marginally younger than him that she could be his daughter). just changed zyprexa dosing as of last night. continue current regimen and observe for continued stabilization. T/C slight increase in lithium dosing. 04/24: Laying in bed. guarded. calm. did not want to get out of bed to meet with T/W. Pt reports feeling great today but declined to go into detail. listening to music on unit headphones. Pt stated, I'm fine. I don't need anything . denies any issues at this time. denies SI/HI/VH/AH. Continue current tx plan. 04/25: Laying in bed. keeping to self. calm. paranoid. Discussed incident that occurred with staff last evening. Pt stated, the counselor made up a lie yesterday. I said she looks like my ex-girlfriend. I know they are related. They want to make up a lie to irritate me. They are trying to talk to me so they can use recording devices and make me look some kind of way . listening to music on unit headphones. denies SI/HI/VH/AH. Continue current tx plan. 04/26: Continue current regimen and plans. Increase Zyprexa 20 mg q.h.s. fresh air break withheld 04/27: Continue current regimen and plans 04/28: somewhat less irritable and agitated than last week. however, over the weekend was claiming he was the father of a footballer on TV and also that a staff member is a twin of his ex-GF (and he pushed staff member). TFTs improving. continue current mgmt. 04/29: no change in presentation. continue current mgmt. 04/30: no irritable edge today. calm, pleasant. engaging in small talk. reality testing not pressed. continue current mgmt for now. 05/01: no change in presentation. continue current mgmt. 05/02: BPs coming down, DC beta joanne as pt has been refusing anyway. remains not antagonistic toward MD. using phone appropriately. continue current mgmt otherwise. 05/03 continue 05/04: remains delusional, irritable/labile when delusional system confronted. declines to sign TOMMY for [facility] records. continue current mgmt. 05/06: declining to meet with MD, but does meet with medical student. remains upset about yesterday's confrontation re his delusional system. 05/07: Active on unit. keeping to self. pacing unit hallway while listening to unit headphones. medication compliant. patient reports feeling good ; pt stated, I'm just waiting to leave here. I want to return to my life and do things like go grocery shopping . denies SI/HI/VH/AH. Continue current tx plan. 05/08: stable presentation, delusions not being brought to the surface daily. remains affectively improved from admission. continue current mgmt. 05/09: calm, pleasant. no questions or complaints. continue current mgmt. 05/10: no change in presentation. due to lack of improvement in dental infection Sx, DC PCN and start augmentin. 05/11: no change in presentation. continue current mgmt. 05/12: as for yesterday. dental pain improving a bit. 05/13: expressed to medical student that his brother poisoned him, causing his thyroid disease. no change in presentation. continue current mgmt. 05/14: Pacing unit hallway. keeping to self. patient reports feeling good today; denies any issues at this time. denies SI/HI/VH/AH. per nursing, slept 5 hours. Continue current tx plan. 05/15: slept 6 hours. otherwise isolative, difficult to engage. continue current mgmt. 05/16: slept 7 hours. as for yesterday otherwise. 05/17/25: Slept well, no issue with appetite, skinny and pretty tall. Compliant with medication. No side effects Calm and pleasant upon approach. Some what paranoid. Tangential, however denies other safety concerns. Questions if he is discharging soon. He is on antibiotic for 7 days for mouth pain/tooth pain. We will finish the 7 course up in antibiotic after tonight dose. Then discontinue. 05/18/25: Slept for 5 hours plus hours this morning. In bed most of the shift, no behavior issues. Denies other safety concerns. 05/19: in bed days, up eves. no change in presentation. continue current mgmt. 05/20: no change in presentation. check labs. 05/21: lithium low, TFTs mixed and not all back. increase lithium from 600 BID to 600/900. trend BUN/Cr, with slight elevation. otherwise continue current mgmt. 05/22: no change in presentation. continue current mgmt. 05/23: does not deny someone stole his sperm and impregnated his landlord's child with it. irritable. c/o dental pain, antibx restarted. otherwise continue current mgmt. 05/14: no change in mgt 05/25: more isolative today; no change in mgt 05/26: decreases in methimazole noted. continnue psych regimen as is. pt refused to interact with MD today. Reason for continued inpatient stay Substantial Risk for: harm to self, harm to others, inability to function and rapid decompensation Time Spent With Patient Time: Total time managing care of this patient today __25__ minutes.
[2025-05-26 20:00] VITALS: BP 135/63; PULSE 90; RESP 16; TEMP 36.9; O2SAT 100
[2025-05-26] MEDS: OLANZapine ODT 10 MG TAB.RAPDIS 20 MG TRANSLINGU (23:15)
--- NOTE | 2025-05-27 15:40 | HO.PSYCHPN ---
Subjective Subjective Date of Service: 05/27/25 Reason For Visit: psychotic disorder Interim History: i'm sleeping (late morning). informed of plan to check labs tonight. per staff, taking meds. isolative to room. out and pacing eves. some dental pain. slept about 5 hours overnight. Mental Status Exam Mental Status Exam Narrative: very tall and thin. under blanket. i'm sleeping. no SI/AVH expressed. Diagnostics Vital Signs (24Hr): Vital Signs - 24 hr 05/26/25 20:00 Temperature 98.4 F Pulse Rate 90 Respiratory Rate 16 Blood Pressure 135/63 Pulse Oximetry 100 Oxygen Delivery Method Room Air BMI result Body Mass Index 22.0 Labs 03/27/25 09:44 05/20/25 19:54 Labs: Laboratory Results - last 48 hr 05/20/25 19:54 Thyroid Stim Immunoglob 470 H Medications Medications Current Medications Acetaminophen (Acetaminophen 325 Mg Tablet) 650 mg PO Q6H PRN PRN Reason: Headache/Pain, Scale 1-10 Last Admin: 04/01/25 23:20 Dose: 650 mg Al Hydroxide/Mg Hydroxide (Magnesium Hydrox/Alum Hydrox 30 Ml Oral.Susp) 30 ml PO Q6H PRN PRN Reason: Heartburn/Nausea Amoxicillin/Clavulanate Potassium (Amoxicillin/Potassium Clav 875 Mg Tablet) 875 mg PO BID [facility] Last Admin: 05/27/25 09:54 Dose: 875 mg Benzocaine (Benzocaine 20 % Oral Gel 14 Gm Tube) 1 appl MUCOUS MEM QID PRN; Protocol PRN Reason: Mouth Sore Pain Last Admin: 04/26/25 18:33 Dose: 1 appl Diazepam (Diazepam 10 Mg/2 Ml Cartridge) 10 mg IM BID PRN PRN Reason: refusal of lithium, per [place]rett Last Admin: 04/11/25 09:56 Dose: 10 mg Haloperidol (Haloperidol 5 Mg Tablet) 5 mg PO Q4H PRN PRN Reason: agitation Hydroxyzine HCl (Hydroxyzine Hcl 25 Mg Tablet) 25 mg PO Q6H PRN PRN Reason: mild anxiety Ibuprofen (Ibuprofen 800 Mg Tablet) 800 mg PO Q6H PRN PRN Reason: pain (pain scale 1-10) Last Admin: 05/27/25 05:17 Dose: 800 mg [place] Carbonate ([place] Carbonate Er 300 Mg Tablet.Er) 600 mg PO DAILY [facility] Last Admin: 05/27/25 09:53 Dose: 600 mg [place] Carbonate ([place] Carbonate Er 450 Mg Tablet.Er) 900 mg PO DAILY@2300 [facility] Last Admin: 05/26/25 23:15 Dose: 900 mg Magnesium Hydroxide (Milk Of Magnesia 30 Ml Oral.Susp) 30 ml PO DAILY PRN PRN Reason: Constipation Methimazole (Methimazole 5 Mg Tablet) 15 mg PO DAILY [facility] Stop: 05/31/25 08:59 Methimazole (Methimazole 10 Mg Tablet) 10 mg PO DAILY [facility] Nicotine (Nicotine 21 Mg Patch.Td24) 21 mg TRANSDERMA DAILY PRN PRN Reason: nicotine cravings Last Admin: 04/12/25 17:06 Dose: 21 mg Nicotine Polacrilex (Nicotine Polacrilex Lozenge 2 Mg Lozenge) 2 mg BUCCAL Q1H PRN PRN Reason: Nicotine Cravings Last Admin: 04/30/25 08:49 Dose: 2 mg Patient Own Medication Excedrin 250/250/65mg 2 each PO Q8H PRN PRN Reason: Migraine Headache Last Admin: 04/18/25 18:03 Dose: 2 each Olanzapine (Olanzapine 10 Mg Vial) 10 mg IM BID PRN PRN Reason: refusal of PO, per maria luz's ord Last Admin: 04/11/25 09:56 Dose: 10 mg Olanzapine (Olanzapine Odt 10 Mg Tab.Rapdis) 20 mg TRANSLINGU DAILY@2300 [facility] Last Admin: 05/26/25 23:15 Dose: 20 mg Quetiapine Fumarate (Quetiapine Fumarate 200 Mg Tablet) 200 mg PO BEDTIME PRN PRN Reason: insomnia Last Admin: 04/16/25 04:21 Dose: 200 mg Allergies Allergies Allergy/AdvReac Type Severity Reaction Status Date / Time No Known Allergies Allergy Verified 03/26/25 14:24 Assessment & Plan Assessment & Plan (1) Graves disease: Status: Acute Code(s): E05.00 - Thyrotoxicosis with diffuse goiter without thyrotoxic crisis or storm Assessment and Plan: Hyperthyroidism/Graves disease. He will need follow up with endocrinology as an outpatient He will also need a primary care doctor referral as an outpatient Discussed with Dr. Bejarano, patient will need free T4 weekly Decrease Methimazole to 15 mgs daily for three days and then 10 mgs daily- discussed with patient he is aware of plan and rationale. TSH and free T4 every 4 weeks. No need to draw thyroid stimulation immunology or TSH receptor AB (2) Dental abscess: Status: Acute Code(s): K04.7 - Periapical abscess without sinus Assessment and Plan: Carious tooth/dental infection Recently treated with PEN VK 500 mg q.6 hours for 7 days Patient will need follow up with dentist on discharge for tooth extraction Motrin helping pain. (3) Becca: Status: Acute Code(s): F30.9 - Manic episode, unspecified Plan 03/26: offer lithium and seroquel for becca. continue methimazole and beta joanne for hyperthyroidism as started at [facility]. trend TFTs. 12b. 03/27: taking methimazole and beta joanne. refused HS meds last night, took morning meds today. continue to encourage medication compliance. 03/28: intermittently taking meds. wants all meds in morning. pressured, manic, paranoid delusions. encouraged to take lithium but states he will not. all meds ordered for morning. 03/29: Keeping to self. no groups. observed laying in bed listening to music on unit headphones. pleasant. Pt reports feeling good today and sleeping well. declined lithium and zyprexa. denies SI/HI/VH/AH. continue current tx plan. 03/30:Irritable. upset he was unable to use his personal hygiene products. Per nursing, pt threatened staff and squeezed tooth paste throughout unit hallway to show his frustration. Pt was able to calm down after speaking with security. declined medications. 03/31: Keeping to self. laying in bed listening to music. refused medications. calm today. Patient reports feeling great ; pt stated, nothing is wrong with me. I'm waiting so I can leave tomorrow. I'm hoping for the best . denies SI/HI/VH/AH. per nursing, slept 6 hours. Continue current tx plan. 04/01: variably calm on the unit versus highly agitated. paranoid delusions, irritability, lability continue. seems to believe MD has met him prior to the present hospitalization and is stalking him. believes brother behind conspiracy to have him psychiatrically hospitalized. has been refusing all medications, including for hyperthyroidism. informed he would be filed on. filed. continue to offer medications. 04/02: continues agitated, belittling, verbally aggressive, refusing all medications including for hyperthyroidism. continue to offer medication. 04/03: paranoid there is a conspiracy to hospitalize him. threatening to stick a stick in staff once he is released by senior java j2ee developer. insists his hyperthyroidism was cured at [facility]. asserts there is NOTHING wrong with him. continue to offer medication. 04/04: irritable, rejecting. verbally abuses MD and sends him away: see you on monday [in court]. continue to offer medication for thyroid condition and mental illness. 04/05 continue tx. suspicious and guarded, accusatory, verbal threats to hurt staff and peers 04/06 intrusive, posturing towards staff and peer who he thinks is not real and is an impostor, continues to make verbal threats to harm him but thinks that because he is not real he may not experience any pain. 04/07: threatening statements and behaviors of yesterday noted. pt sleeping this morning, dismissive of MD. 04/08: asleep days. committed and meds ordered by court. 04/09: on being informed of court order and MD insisting on meds, pt escalated to hurling food item in container against wall at high speed and saying he wished he could do the same to MD's head. pt eventually took court ordered meds PO. sensodyne and excedrin not available in pharmacy (pt requesting them). 04/10: continue tx. Pt accepting medication today. 04/11: Keeping to self. Lying in bed most of morning. Declined to meet with T/W. Pt stated, I'm fine. I don't need anything . Listening to headphones in room. Declined court ordered PO medications; received IM medications. Refused vital signs.continue tx plan. 04/12: got IMs yesterday, took PO this morning. sleepy, no concerns or complaints. 04/13: taking PO meds again. slept 7 hours. sleepy again mid morning refusing interview. continue current mgmt. 04/14: sleeping, rousable. denies being sedated or tired, says he's just bored. no questions or complaints. informed of need to check labs. check lithium level and thyroid labs tonight. 04/15: refusing labs. delusional re his brother harming him. verbally abusive toward MD. spat in floor. happy with improvement in proptosis. 04/16: Lying in bed. Calm. cooperative. guarded. Pt reports feeling tired this morning d/t poor sleep last night. Pt stated, I don't need anything. I didn't sleep well so I'm trying to catch up . denies any issues at this time. denies SI/HI/VH/AH. Continue current tx plan. 04/17: more calm today, less explosive. continue current mgmt. 04/18: continues more calm. tolerating moments of frustration without verbally attacking MD. slept only 2 hours overnight, however. continue current mgmt. 04/19 continues to push boundaries and limits with staff mike around cell phone- 04/20 - aggressive with staff and unpredictable- threw water pitcher at staff behind desk/-when seen by provider passive in bed-denying all compaints/sys- no insight 04/21: appears as per last week. more difficult behaviors around cell phone use, did throw pitcher of water at RN monday over phone use and was restrained. continue current mgmt. 04/22: continues to have conflict around cell phone use. consolidate zyprexa at HS to decrease daytime sedation. 1:1 allegra shift until peer he is accusing of not being a real patient and appears to be targeting discharges tomorrow. 04/23: lithium 0.6 on 600 BID. sleeping better, remains delusional (telling SW who is marginally younger than him that she could be his daughter). just changed zyprexa dosing as of last night. continue current regimen and observe for continued stabilization. T/C slight increase in lithium dosing. 04/24: Laying in bed. guarded. calm. did not want to get out of bed to meet with T/W. Pt reports feeling great today but declined to go into detail. listening to music on unit headphones. Pt stated, I'm fine. I don't need anything . denies any issues at this time. denies SI/HI/VH/AH. Continue current tx plan. 04/25: Laying in bed. keeping to self. calm. paranoid. Discussed incident that occurred with staff last evening. Pt stated, the counselor made up a lie yesterday. I said she looks like my ex-girlfriend. I know they are related. They want to make up a lie to irritate me. They are trying to talk to me so they can use recording devices and make me look some kind of way . listening to music on unit headphones. denies SI/HI/VH/AH. Continue current tx plan. 04/26: Continue current regimen and plans. Increase Zyprexa 20 mg q.h.s. fresh air break withheld 04/27: Continue current regimen and plans 04/28: somewhat less irritable and agitated than last week. however, over the weekend was claiming he was the father of a footballer on TV and also that a staff member is a twin of his ex-GF (and he pushed staff member). TFTs improving. continue current mgmt. 04/29: no change in presentation. continue current mgmt. 04/30: no irritable edge today. calm, pleasant. engaging in small talk. reality testing not pressed. continue current mgmt for now. 05/01: no change in presentation. continue current mgmt. 05/02: BPs coming down, DC beta joanne as pt has been refusing anyway. remains not antagonistic toward MD. using phone appropriately. continue current mgmt otherwise. 05/03 continue 05/04: remains delusional, irritable/labile when delusional system confronted. declines to sign TOMMY for [facility] records. continue current mgmt. 05/06: declining to meet with MD, but does meet with medical student. remains upset about yesterday's confrontation re his delusional system. 05/07: Active on unit. keeping to self. pacing unit hallway while listening to unit headphones. medication compliant. patient reports feeling good ; pt stated, I'm just waiting to leave here. I want to return to my life and do things like go grocery shopping . denies SI/HI/VH/AH. Continue current tx plan. 05/08: stable presentation, delusions not being brought to the surface daily. remains affectively improved from admission. continue current mgmt. 05/09: calm, pleasant. no questions or complaints. continue current mgmt. 05/10: no change in presentation. due to lack of improvement in dental infection Sx, DC PCN and start augmentin. 05/11: no change in presentation. continue current mgmt. 05/12: as for yesterday. dental pain improving a bit. 05/13: expressed to medical student that his brother poisoned him, causing his thyroid disease. no change in presentation. continue current mgmt. 05/14: Pacing unit hallway. keeping to self. patient reports feeling good today; denies any issues at this time. denies SI/HI/VH/AH. per nursing, slept 5 hours. Continue current tx plan. 05/15: slept 6 hours. otherwise isolative, difficult to engage. continue current mgmt. 05/16: slept 7 hours. as for yesterday otherwise. 05/17/25: Slept well, no issue with appetite, skinny and pretty tall. Compliant with medication. No side effects Calm and pleasant upon approach. Some what paranoid. Tangential, however denies other safety concerns. Questions if he is discharging soon. He is on antibiotic for 7 days for mouth pain/tooth pain. We will finish the 7 course up in antibiotic after tonight dose. Then discontinue. 05/18/25: Slept for 5 hours plus hours this morning. In bed most of the shift, no behavior issues. Denies other safety concerns. 05/19: in bed days, up eves. no change in presentation. continue current mgmt. 05/20: no change in presentation. check labs. 05/21: lithium low, TFTs mixed and not all back. increase lithium from 600 BID to 600/900. trend BUN/Cr, with slight elevation. otherwise continue current mgmt. 05/22: no change in presentation. continue current mgmt. 05/23: does not deny someone stole his sperm and impregnated his landlord's child with it. irritable. c/o dental pain, antibx restarted. otherwise continue current mgmt. 05/14: no change in mgt 05/25: more isolative today; no change in mgt 05/26: decreases in methimazole noted. continue psych regimen as is. pt refused to interact with MD today. 05/27: i'm sleeping. no change in presentation. labs tonight. Reason for continued inpatient stay Substantial Risk for: harm to self, harm to others, inability to function, rapid decompensation and med/psych decompensation Time Spent With Patient Time: Total time managing care of this patient today ____ minutes.
[2025-05-27 20:00] VITALS: BP 136/80; PULSE 93; RESP 16; TEMP 36.4; O2SAT 100
[2025-05-27] MEDS: OLANZapine ODT 10 MG TAB.RAPDIS 20 MG TRANSLINGU (23:05)
[2025-05-27 23:26] LABS: Lithium 0.66 mmol/L (0.60-1.20)
[2025-05-27 23:32] LABS: Anion Gap 11 (12-20); Blood Urea Nitrogen 21 mg/dL (9-16); Calcium 9.5 mg/dL (8.4-10.2); Carbon Dioxide 27 mmol/L (22-29); Chloride 106 mmol/L (96-108); Creatinine Clr Calc Pharmacy 155.3; Estimated Glomerular Filt Rate > 60; Potassium 4.4 mmol/L (3.3-5.1); Sodium 140 mmol/L (135-145)
[2025-05-27 23:54] LABS: Free T4 (Free Thyroxine) 0.95 ng/dL (0.71-1.85)
[2025-05-28 08:00] VITALS: RESP 14
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
[2025-05-28 20:09] VITALS: BP 135/72; PULSE 86; RESP 16; TEMP 36.8; O2SAT 100
[2025-05-29] MEDS: OLANZapine ODT 10 MG TAB.RAPDIS 20 MG TRANSLINGU ×2 (00:01→23:36)
[2025-05-29 08:00] VITALS: RESP 18
--- NOTE | 2025-05-29 13:14 | HO.PSYCHPN ---
Subjective Subjective Date of Service: 05/29/25 Reason For Visit: psychotic disorder Interim History: lying in bed in dark. irritable, angrily demanding to know why he was being moved from single room. no other complaints or requests. per staff, withdrawn. taking meds. no changes. slept 4 hours overnight, but is in bed all day. Mental Status Exam Mental Status Exam Narrative: very tall and thin. under blanket. irritable re being moved to a new room. no SI/AVH expressed. Diagnostics Vital Signs (24Hr): Vital Signs - 24 hr 05/28/25 20:09 05/29/25 08:00 Temperature 98.3 F Pulse Rate 86 Respiratory Rate 16 18 Blood Pressure 135/72 Pulse Oximetry 100 Oxygen Delivery Method Room Air BMI result Body Mass Index 22.0 Labs 03/27/25 09:44 05/27/25 22:58 Labs: Laboratory Results - last 48 hr 05/27/25 22:58 Sodium 140 Potassium 4.4 Chloride 106 Carbon Dioxide 27 Anion Gap 11 L BUN 21 H Creatinine 0.86 Estim Creat Clear Calc 155.3 Estimated GFR > 60 Random Glucose 107 Calcium 9.5 Free T4 0.95 Glacier 0.66 Medications Medications Current Medications Acetaminophen (Acetaminophen 325 Mg Tablet) 650 mg PO Q6H PRN PRN Reason: Headache/Pain, Scale 1-10 Last Admin: 04/01/25 23:20 Dose: 650 mg Al Hydroxide/Mg Hydroxide (Magnesium Hydrox/Alum Hydrox 30 Ml Oral.Susp) 30 ml PO Q6H PRN PRN Reason: Heartburn/Nausea Amoxicillin/Clavulanate Potassium (Amoxicillin/Potassium Clav 875 Mg Tablet) 875 mg PO BID [facility] Last Admin: 05/29/25 09:54 Dose: 875 mg Benzocaine (Benzocaine 20 % Oral Gel 14 Gm Tube) 1 appl MUCOUS MEM QID PRN; Protocol PRN Reason: Mouth Sore Pain Last Admin: 04/26/25 18:33 Dose: 1 appl Diazepam (Diazepam 10 Mg/2 Ml Cartridge) 10 mg IM BID PRN PRN Reason: refusal of lithium, mary floyd Last Admin: 04/11/25 09:56 Dose: 10 mg Haloperidol (Haloperidol 5 Mg Tablet) 5 mg PO Q4H PRN PRN Reason: agitation Hydroxyzine HCl (Hydroxyzine Hcl 25 Mg Tablet) 25 mg PO Q6H PRN PRN Reason: mild anxiety Ibuprofen (Ibuprofen 800 Mg Tablet) 800 mg PO Q6H PRN PRN Reason: pain (pain scale 1-10) Last Admin: 05/29/25 03:28 Dose: 800 mg Glacier Carbonate (Glacier Carbonate Er 300 Mg Tablet.Er) 600 mg PO DAILY [facility] Last Admin: 05/29/25 09:52 Dose: 600 mg Glacier Carbonate (Glacier Carbonate Er 450 Mg Tablet.Er) 900 mg PO DAILY@2300 [facility] Last Admin: 05/29/25 00:01 Dose: 900 mg Magnesium Hydroxide (Milk Of Magnesia 30 Ml Oral.Susp) 30 ml PO DAILY PRN PRN Reason: Constipation Methimazole (Methimazole 5 Mg Tablet) 15 mg PO DAILY [facility] Stop: 05/31/25 08:59 Last Admin: 05/29/25 09:51 Dose: 15 mg Methimazole (Methimazole 10 Mg Tablet) 10 mg PO DAILY [facility] Nicotine (Nicotine 21 Mg Patch.Td24) 21 mg TRANSDERMA DAILY PRN PRN Reason: nicotine cravings Last Admin: 04/12/25 17:06 Dose: 21 mg Nicotine Polacrilex (Nicotine Polacrilex Lozenge 2 Mg Lozenge) 2 mg BUCCAL Q1H PRN PRN Reason: Nicotine Cravings Last Admin: 04/30/25 08:49 Dose: 2 mg Patient Own Medication Excedrin 250/250/65mg 2 each PO Q8H PRN PRN Reason: Migraine Headache Last Admin: 04/18/25 18:03 Dose: 2 each Olanzapine (Olanzapine 10 Mg Vial) 10 mg IM BID PRN PRN Reason: refusal of PO, per maria luz's ord Last Admin: 04/11/25 09:56 Dose: 10 mg Olanzapine (Olanzapine Odt 10 Mg Tab.Rapdis) 20 mg TRANSLINGU DAILY@2300 [facility] Last Admin: 05/29/25 00:01 Dose: 20 mg Quetiapine Fumarate (Quetiapine Fumarate 200 Mg Tablet) 200 mg PO BEDTIME PRN PRN Reason: insomnia Last Admin: 04/16/25 04:21 Dose: 200 mg Allergies Allergies Allergy/AdvReac Type Severity Reaction Status Date / Time No Known Allergies Allergy Verified 03/26/25 14:24 Assessment & Plan Assessment & Plan (1) Graves disease: Status: Acute Code(s): E05.00 - Thyrotoxicosis with diffuse goiter without thyrotoxic crisis or storm Assessment and Plan: Hyperthyroidism/Graves disease. He will need follow up with endocrinology as an outpatient He will also need a primary care doctor referral as an outpatient Discussed with Dr. Bejarano, patient will need free T4 weekly Decrease Methimazole to 15 mgs daily for three days and then 10 mgs daily- discussed with patient he is aware of plan and rationale. TSH and free T4 every 4 weeks. No need to draw thyroid stimulation immunology or TSH receptor AB (2) Dental abscess: Status: Acute Code(s): K04.7 - Periapical abscess without sinus Assessment and Plan: Carious tooth/dental infection Recently treated with PEN VK 500 mg q.6 hours for 7 days Patient will need follow up with dentist on discharge for tooth extraction Motrin helping pain. (3) Becca: Status: Acute Code(s): F30.9 - Manic episode, unspecified Plan 03/26: offer lithium and seroquel for becca. continue methimazole and beta joanne for hyperthyroidism as started at [facility]. trend TFTs. 12b. 03/27: taking methimazole and beta joanne. refused HS meds last night, took morning meds today. continue to encourage medication compliance. 03/28: intermittently taking meds. wants all meds in morning. pressured, manic, paranoid delusions. encouraged to take lithium but states he will not. all meds ordered for morning. 03/29: Keeping to self. no groups. observed laying in bed listening to music on unit headphones. pleasant. Pt reports feeling good today and sleeping well. declined lithium and zyprexa. denies SI/HI/VH/AH. continue current tx plan. 03/30:Irritable. upset he was unable to use his personal hygiene products. Per nursing, pt threatened staff and squeezed tooth paste throughout unit hallway to show his frustration. Pt was able to calm down after speaking with security. declined medications. 03/31: Keeping to self. laying in bed listening to music. refused medications. calm today. Patient reports feeling great ; pt stated, nothing is wrong with me. I'm waiting so I can leave tomorrow. I'm hoping for the best . denies SI/HI/VH/AH. per nursing, slept 6 hours. Continue current tx plan. 04/01: variably calm on the unit versus highly agitated. paranoid delusions, irritability, lability continue. seems to believe MD has met him prior to the present hospitalization and is stalking him. believes brother behind conspiracy to have him psychiatrically hospitalized. has been refusing all medications, including for hyperthyroidism. informed he would be filed on. filed. continue to offer medications. 04/02: continues agitated, belittling, verbally aggressive, refusing all medications including for hyperthyroidism. continue to offer medication. 04/03: paranoid there is a conspiracy to hospitalize him. threatening to stick a stick in staff once he is released by cardiac monitor technician. insists his hyperthyroidism was cured at [facility]. asserts there is NOTHING wrong with him. continue to offer medication. 04/04: irritable, rejecting. verbally abuses MD and sends him away: see you on monday [in court]. continue to offer medication for thyroid condition and mental illness. 04/05 continue tx. suspicious and guarded, accusatory, verbal threats to hurt staff and peers 04/06 intrusive, posturing towards staff and peer who he thinks is not real and is an impostor, continues to make verbal threats to harm him but thinks that because he is not real he may not experience any pain. 04/07: threatening statements and behaviors of yesterday noted. pt sleeping this morning, dismissive of MD. 04/08: asleep days. committed and meds ordered by court. 04/09: on being informed of court order and MD insisting on meds, pt escalated to hurling food item in container against wall at high speed and saying he wished he could do the same to MD's head. pt eventually took court ordered meds PO. sensodyne and excedrin not available in pharmacy (pt requesting them). 04/10: continue tx. Pt accepting medication today. 04/11: Keeping to self. Lying in bed most of morning. Declined to meet with T/W. Pt stated, I'm fine. I don't need anything . Listening to headphones in room. Declined court ordered PO medications; received IM medications. Refused vital signs.continue tx plan. 04/12: got IMs yesterday, took PO this morning. sleepy, no concerns or complaints. 04/13: taking PO meds again. slept 7 hours. sleepy again mid morning refusing interview. continue current mgmt. 04/14: sleeping, rousable. denies being sedated or tired, says he's just bored. no questions or complaints. informed of need to check labs. check lithium level and thyroid labs tonight. 04/15: refusing labs. delusional re his brother harming him. verbally abusive toward MD. spat in floor. happy with improvement in proptosis. 04/16: Lying in bed. Calm. cooperative. guarded. Pt reports feeling tired this morning d/t poor sleep last night. Pt stated, I don't need anything. I didn't sleep well so I'm trying to catch up . denies any issues at this time. denies SI/HI/VH/AH. Continue current tx plan. 04/17: more calm today, less explosive. continue current mgmt. 04/18: continues more calm. tolerating moments of frustration without verbally attacking MD. slept only 2 hours overnight, however. continue current mgmt. 04/19 continues to push boundaries and limits with staff mike around cell phone- 04/20 - aggressive with staff and unpredictable- threw water pitcher at staff behind desk/-when seen by provider passive in bed-denying all compaints/sys- no insight 04/21: appears as per last week. more difficult behaviors around cell phone use, did throw pitcher of water at RN monday over phone use and was restrained. continue current mgmt. 04/22: continues to have conflict around cell phone use. consolidate zyprexa at HS to decrease daytime sedation. 1:1 allegra shift until peer he is accusing of not being a real patient and appears to be targeting discharges tomorrow. 04/23: lithium 0.6 on 600 BID. sleeping better, remains delusional (telling SW who is marginally younger than him that she could be his daughter). just changed zyprexa dosing as of last night. continue current regimen and observe for continued stabilization. T/C slight increase in lithium dosing. 04/24: Laying in bed. guarded. calm. did not want to get out of bed to meet with T/W. Pt reports feeling great today but declined to go into detail. listening to music on unit headphones. Pt stated, I'm fine. I don't need anything . denies any issues at this time. denies SI/HI/VH/AH. Continue current tx plan. 04/25: Laying in bed. keeping to self. calm. paranoid. Discussed incident that occurred with staff last evening. Pt stated, the counselor made up a lie yesterday. I said she looks like my ex-girlfriend. I know they are related. They want to make up a lie to irritate me. They are trying to talk to me so they can use recording devices and make me look some kind of way . listening to music on unit headphones. denies SI/HI/VH/AH. Continue current tx plan. 04/26: Continue current regimen and plans. Increase Zyprexa 20 mg q.h.s. fresh air break withheld 04/27: Continue current regimen and plans 04/28: somewhat less irritable and agitated than last week. however, over the weekend was claiming he was the father of a footballer on TV and also that a staff member is a twin of his ex-GF (and he pushed staff member). TFTs improving. continue current mgmt. 04/29: no change in presentation. continue current mgmt. 04/30: no irritable edge today. calm, pleasant. engaging in small talk. reality testing not pressed. continue current mgmt for now. 05/01: no change in presentation. continue current mgmt. 05/02: BPs coming down, DC beta joanne as pt has been refusing anyway. remains not antagonistic toward MD. using phone appropriately. continue current mgmt otherwise. 05/03 continue 05/04: remains delusional, irritable/labile when delusional system confronted. declines to sign TOMMY for [facility] records. continue current mgmt. 05/06: declining to meet with MD, but does meet with medical student. remains upset about yesterday's confrontation re his delusional system. 05/07: Active on unit. keeping to self. pacing unit hallway while listening to unit headphones. medication compliant. patient reports feeling good ; pt stated, I'm just waiting to leave here. I want to return to my life and do things like go grocery shopping . denies SI/HI/VH/AH. Continue current tx plan. 05/08: stable presentation, delusions not being brought to the surface daily. remains affectively improved from admission. continue current mgmt. 05/09: calm, pleasant. no questions or complaints. continue current mgmt. 05/10: no change in presentation. due to lack of improvement in dental infection Sx, DC PCN and start augmentin. 05/11: no change in presentation. continue current mgmt. 05/12: as for yesterday. dental pain improving a bit. 05/13: expressed to medical student that his brother poisoned him, causing his thyroid disease. no change in presentation. continue current mgmt. 05/14: Pacing unit hallway. keeping to self. patient reports feeling good today; denies any issues at this time. denies SI/HI/VH/AH. per nursing, slept 5 hours. Continue current tx plan. 05/15: slept 6 hours. otherwise isolative, difficult to engage. continue current mgmt. 05/16: slept 7 hours. as for yesterday otherwise. 05/17/25: Slept well, no issue with appetite, skinny and pretty tall. Compliant with medication. No side effects Calm and pleasant upon approach. Some what paranoid. Tangential, however denies other safety concerns. Questions if he is discharging soon. He is on antibiotic for 7 days for mouth pain/tooth pain. We will finish the 7 course up in antibiotic after tonight dose. Then discontinue. 05/18/25: Slept for 5 hours plus hours this morning. In bed most of the shift, no behavior issues. Denies other safety concerns. 05/19: in bed days, up eves. no change in presentation. continue current mgmt. 05/20: no change in presentation. check labs. 05/21: lithium low, TFTs mixed and not all back. increase lithium from 600 BID to 600/900. trend BUN/Cr, with slight elevation. otherwise continue current mgmt. 05/22: no change in presentation. continue current mgmt. 05/23: does not deny someone stole his sperm and impregnated his landlord's child with it. irritable. c/o dental pain, antibx restarted. otherwise continue current mgmt. 05/14: no change in mgt 05/25: more isolative today; no change in mgt 05/26: decreases in methimazole noted. continue psych regimen as is. pt refused to interact with MD today. 05/27: i'm sleeping. no change in presentation. labs tonight. 05/28: no change in behavior. lithium 0.66, BUN stable. continue current mgmt. 05/29: irritable. continue current mgmt. Reason for continued inpatient stay Substantial Risk for: harm to self, harm to others and inability to function Time Spent With Patient Time: Total time managing care of this patient today ____ minutes.
[2025-05-29 19:32] VITALS: BP 143/81; PULSE 88; RESP 16; TEMP 36.8; O2SAT 100
[2025-05-30 07:54] VITALS: BP 133/80; PULSE 78; RESP 17; TEMP 36.7; O2SAT 100
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
[2025-05-30 20:00] VITALS: BP 161/81; PULSE 95; RESP 16; TEMP 36.4; O2SAT 99
[2025-05-31] MEDS: OLANZapine ODT 10 MG TAB.RAPDIS 20 MG TRANSLINGU (00:01)
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
[2025-05-31 20:00] VITALS: BP 144/71; PULSE 91; RESP 16; TEMP 37.6; O2SAT 99
[2025-06-01] MEDS: OLANZapine ODT 10 MG TAB.RAPDIS 20 MG TRANSLINGU (00:02)
--- NOTE | 2025-06-01 17:57 | P.PNPSI_ITS ---
Subjective Subjective Date of Service: 06/01/25 Reason For Visit: psychotic disorder Subjective Notes: Section 8 Interim History: Similar to yesterday. laying in bed. Irritable. declined to meet with T/W and pulled bed sheets over head. pt stated, I don't want to talk. I want to sleep . difficult to engage. Continue current tx plan. Medication Compliance: Yes Side effects from medications: No Attending Groups: No Mental Status Exam Mental Status Exam Narrative: unable to assess; declined to meet with T/W Diagnostics Vital Signs (24Hr): Vital Signs - 24 hr 05/31/25 20:00 Temperature 99.6 F Pulse Rate 91 Respiratory Rate 16 Blood Pressure 144/71 H Pulse Oximetry 99 Oxygen Delivery Method Room Air BMI result Body Mass Index 22.0 Labs 03/27/25 09:44 05/27/25 22:58 Medications Medications Current Medications Acetaminophen (Acetaminophen 325 Mg Tablet) 650 mg PO Q6H PRN PRN Reason: Headache/Pain, Scale 1-10 Last Admin: 04/01/25 23:20 Dose: 650 mg Al Hydroxide/Mg Hydroxide (Magnesium Hydrox/Alum Hydrox 30 Ml Oral.Susp) 30 ml PO Q6H PRN PRN Reason: Heartburn/Nausea Amoxicillin/Clavulanate Potassium (Amoxicillin/Potassium Clav 875 Mg Tablet) 875 mg PO BID [facility] Last Admin: 06/01/25 08:59 Dose: 875 mg Benzocaine (Benzocaine 20 % Oral Gel 14 Gm Tube) 1 appl MUCOUS MEM QID PRN; Protocol PRN Reason: Mouth Sore Pain Last Admin: 04/26/25 18:33 Dose: 1 appl Diazepam (Diazepam 10 Mg/2 Ml Cartridge) 10 mg IM BID PRN PRN Reason: refusal of lithium, mary floyd Last Admin: 04/11/25 09:56 Dose: 10 mg Haloperidol (Haloperidol 5 Mg Tablet) 5 mg PO Q4H PRN PRN Reason: agitation Hydroxyzine HCl (Hydroxyzine Hcl 25 Mg Tablet) 25 mg PO Q6H PRN PRN Reason: mild anxiety Ibuprofen (Ibuprofen 800 Mg Tablet) 800 mg PO Q6H PRN PRN Reason: pain (pain scale 1-10) Last Admin: 06/01/25 00:02 Dose: 800 mg [place] Carbonate ([place] Carbonate Er 300 Mg Tablet.Er) 600 mg PO DAILY [facility] Last Admin: 06/01/25 08:58 Dose: 600 mg [place] Carbonate ([place] Carbonate Er 450 Mg Tablet.Er) 900 mg PO DAILY@2299 [facility] Last Admin: 06/01/25 00:02 Dose: 900 mg Magnesium Hydroxide (Milk Of Magnesia 30 Ml Oral.Susp) 30 ml PO DAILY PRN PRN Reason: Constipation Methimazole (Methimazole 10 Mg Tablet) 10 mg PO DAILY [facility] Last Admin: 06/01/25 08:58 Dose: 10 mg Nicotine (Nicotine 21 Mg Patch.Td24) 21 mg TRANSDERMA DAILY PRN PRN Reason: nicotine cravings Last Admin: 04/12/25 17:06 Dose: 21 mg Nicotine Polacrilex (Nicotine Polacrilex Lozenge 2 Mg Lozenge) 2 mg BUCCAL Q1H PRN PRN Reason: Nicotine Cravings Last Admin: 04/30/25 08:49 Dose: 2 mg Patient Own Medication Excedrin 250/250/65mg 2 each PO Q8H PRN PRN Reason: Migraine Headache Last Admin: 04/18/25 18:03 Dose: 2 each Olanzapine (Olanzapine 10 Mg Vial) 10 mg IM BID PRN PRN Reason: refusal of PO, per maria luz's ord Last Admin: 04/11/25 09:56 Dose: 10 mg Olanzapine (Olanzapine Odt 10 Mg Tab.Rapdis) 20 mg TRANSLINGU DAILY@2299 [facility] Last Admin: 06/01/25 00:02 Dose: 20 mg Quetiapine Fumarate (Quetiapine Fumarate 200 Mg Tablet) 200 mg PO BEDTIME PRN PRN Reason: insomnia Last Admin: 04/16/25 04:21 Dose: 200 mg Allergies Allergies Allergy/AdvReac Type Severity Reaction Status Date / Time No Known Allergies Allergy Verified 03/26/25 14:24 Assessment & Plan Assessment & Plan (1) Graves disease: Status: Acute Code(s): E05.00 - Thyrotoxicosis with diffuse goiter without thyrotoxic crisis or storm Assessment and Plan: Hyperthyroidism/Graves disease. He will need follow up with endocrinology as an outpatient He will also need a primary care doctor referral as an outpatient Discussed with Dr. Bejarano, patient will need free T4 weekly Decrease Methimazole to 15 mgs daily for three days and then 10 mgs daily- discussed with patient he is aware of plan and rationale. TSH and free T4 every 4 weeks. No need to draw thyroid stimulation immunology or TSH receptor AB (2) Dental abscess: Status: Acute Code(s): K04.7 - Periapical abscess without sinus Assessment and Plan: Carious tooth/dental infection Recently treated with PEN VK 500 mg q.6 hours for 7 days Patient will need follow up with dentist on discharge for tooth extraction Motrin helping pain. (3) Becca: Status: Acute Code(s): F30.9 - Manic episode, unspecified Plan 03/26: offer lithium and seroquel for becca. continue methimazole and beta joanne for hyperthyroidism as started at [facility]. trend TFTs. 12b. 03/27: taking methimazole and beta joanne. refused HS meds last night, took morning meds today. continue to encourage medication compliance. 03/28: intermittently taking meds. wants all meds in morning. pressured, manic, paranoid delusions. encouraged to take lithium but states he will not. all meds ordered for morning. 03/29: Keeping to self. no groups. observed laying in bed listening to music on unit headphones. pleasant. Pt reports feeling good today and sleeping well. declined lithium and zyprexa. denies SI/HI/VH/AH. continue current tx plan. 03/30:Irritable. upset he was unable to use his personal hygiene products. Per nursing, pt threatened staff and squeezed tooth paste throughout unit hallway to show his frustration. Pt was able to calm down after speaking with security. declined medications. 03/31: Keeping to self. laying in bed listening to music. refused medications. calm today. Patient reports feeling great ; pt stated, nothing is wrong with me. I'm waiting so I can leave tomorrow. I'm hoping for the best . denies SI/HI/VH/AH. per nursing, slept 6 hours. Continue current tx plan. 04/01: variably calm on the unit versus highly agitated. paranoid delusions, irritability, lability continue. seems to believe has met him prior to the present hospitalization and is stalking him. believes brother behind conspiracy to have him psychiatrically hospitalized. has been refusing all medications, including for hyperthyroidism. informed he would be filed on. filed. continue to offer medications. 04/02: continues agitated, belittling, verbally aggressive, refusing all medications including for hyperthyroidism. continue to offer medication. 04/03: paranoid there is a conspiracy to hospitalize him. threatening to stick a stick in staff once he is released by food science technician. insists his hyperthyroidism was cured at [facility]. asserts there is NOTHING wrong with him. continue to offer medication. 04/04: irritable, rejecting. verbally abuses MD and sends him away: see you on monday [in court]. continue to offer medication for thyroid condition and mental illness. 04/05 continue tx. suspicious and guarded, accusatory, verbal threats to hurt staff and peers 04/06 intrusive, posturing towards staff and peer who he thinks is not real and is an impostor, continues to make verbal threats to harm him but thinks that because he is not real he may not experience any pain. 04/07: threatening statements and behaviors of yesterday noted. pt sleeping this morning, dismissive of MD. 04/08: asleep days. committed and meds ordered by court. 04/09: on being informed of court order and MD insisting on meds, pt escalated to hurling food item in container against wall at high speed and saying he wished he could do the same to MD's head. pt eventually took court ordered meds PO. sensodyne and excedrin not available in pharmacy (pt requesting them). 04/10: continue tx. Pt accepting medication today. 04/11: Keeping to self. Lying in bed most of morning. Declined to meet with T/W. Pt stated, I'm fine. I don't need anything . Listening to headphones in room. Declined court ordered PO medications; received IM medications. Refused vital signs.continue tx plan. 04/12: got IMs yesterday, took PO this morning. sleepy, no concerns or complaints. 04/13: taking PO meds again. slept 7 hours. sleepy again mid morning refusing interview. continue current mgmt. 04/14: sleeping, rousable. denies being sedated or tired, says he's just bored. no questions or complaints. informed of need to check labs. check lithium level and thyroid labs tonight. 04/15: refusing labs. delusional re his brother harming him. verbally abusive toward MD. spat in floor. happy with improvement in proptosis. 04/16: Lying in bed. Calm. cooperative. guarded. Pt reports feeling tired this morning d/t poor sleep last night. Pt stated, I don't need anything. I didn't sleep well so I'm trying to catch up . denies any issues at this time. denies SI/HI/VH/AH. Continue current tx plan. 04/17: more calm today, less explosive. continue current mgmt. 04/18: continues more calm. tolerating moments of frustration without verbally attacking MD. slept only 2 hours overnight, however. continue current mgmt. 04/19 continues to push boundaries and limits with staff mike around cell phone- 04/20 - aggressive with staff and unpredictable- threw water pitcher at staff behind desk/-when seen by provider passive in bed-denying all compaints/sys- no insight 04/21: appears as per last week. more difficult behaviors around cell phone use, did throw pitcher of water at RN monday over phone use and was restrained. continue current mgmt. 04/22: continues to have conflict around cell phone use. consolidate zyprexa at HS to decrease daytime sedation. 1:1 allegra shift until peer he is accusing of not being a real patient and appears to be targeting discharges tomorrow. 04/23: lithium 0.6 on 600 BID. sleeping better, remains delusional (telling SW who is marginally younger than him that she could be his daughter). just changed zyprexa dosing as of last night. continue current regimen and observe for continued stabilization. T/C slight increase in lithium dosing. 04/24: Laying in bed. guarded. calm. did not want to get out of bed to meet with T/W. Pt reports feeling great today but declined to go into detail. listening to music on unit headphones. Pt stated, I'm fine. I don't need anything . denies any issues at this time. denies SI/HI/VH/AH. Continue current tx plan. 04/25: Laying in bed. keeping to self. calm. paranoid. Discussed incident that occurred with staff last evening. Pt stated, the counselor made up a lie yesterday. I said she looks like my ex-girlfriend. I know they are related. They want to make up a lie to irritate me. They are trying to talk to me so they can use recording devices and make me look some kind of way . listening to music on unit headphones. denies SI/HI/VH/AH. Continue current tx plan. 04/26: Continue current regimen and plans. Increase Zyprexa 20 mg q.h.s. fresh air break withheld 04/27: Continue current regimen and plans 04/28: somewhat less irritable and agitated than last week. however, over the weekend was claiming he was the father of a footballer on TV and also that a staff member is a twin of his ex-GF (and he pushed staff member). TFTs improving. continue current mgmt. 04/29: no change in presentation. continue current mgmt. 04/30: no irritable edge today. calm, pleasant. engaging in small talk. reality testing not pressed. continue current mgmt for now. 05/01: no change in presentation. continue current mgmt. 05/02: BPs coming down, DC beta joanne as pt has been refusing anyway. remains not antagonistic toward MD. using phone appropriately. continue current mgmt otherwise. 05/03 continue 05/04: remains delusional, irritable/labile when delusional system confronted. declines to sign TOMMY for [facility] records. continue current mgmt. 05/06: declining to meet with MD, but does meet with medical student. remains upset about yesterday's confrontation re his delusional system. 05/07: Active on unit. keeping to self. pacing unit hallway while listening to unit headphones. medication compliant. patient reports feeling good ; pt stated, I'm just waiting to leave here. I want to return to my life and do things like go grocery shopping . denies SI/HI/VH/AH. Continue current tx plan. 05/08: stable presentation, delusions not being brought to the surface daily. remains affectively improved from admission. continue current mgmt. 05/09: calm, pleasant. no questions or complaints. continue current mgmt. 05/10: no change in presentation. due to lack of improvement in dental infection Sx, DC PCN and start augmentin. 05/11: no change in presentation. continue current mgmt. 05/12: as for yesterday. dental pain improving a bit. 05/13: expressed to medical student that his brother poisoned him, causing his thyroid disease. no change in presentation. continue current mgmt. 05/14: Pacing unit hallway. keeping to self. patient reports feeling good today; denies any issues at this time. denies SI/HI/VH/AH. per nursing, slept 5 hours. Continue current tx plan. 05/15: slept 6 hours. otherwise isolative, difficult to engage. continue current mgmt. 05/16: slept 7 hours. as for yesterday otherwise. 05/17/25: Slept well, no issue with appetite, skinny and pretty tall. Compliant with medication. No side effects Calm and pleasant upon approach. Some what paranoid. Tangential, however denies other safety concerns. Questions if he is discharging soon. He is on antibiotic for 7 days for mouth pain/tooth pain. We will finish the 7 course up in antibiotic after tonight dose. Then discontinue. 05/18/25: Slept for 5 hours plus hours this morning. In bed most of the shift, no behavior issues. Denies other safety concerns. 05/19: in bed days, up eves. no change in presentation. continue current mgmt. 05/20: no change in presentation. check labs. 05/21: lithium low, TFTs mixed and not all back. increase lithium from 600 BID to 600/900. trend BUN/Cr, with slight elevation. otherwise continue current mgmt. 05/22: no change in presentation. continue current mgmt. 05/23: does not deny someone stole his sperm and impregnated his landlord's child with it. irritable. c/o dental pain, antibx restarted. otherwise continue current mgmt. 05/14: no change in mgt 05/25: more isolative today; no change in mgt 05/26: decreases in methimazole noted. continue psych regimen as is. pt refused to interact with MD today. 05/27: i'm sleeping. no change in presentation. labs tonight. 05/28: no change in behavior. lithium 0.66, BUN stable. continue current mgmt. 05/29: irritable. continue current mgmt. 05/30: no longer in single room. still not engaging, sleeping days. continue current mgmt. 05/31:laying in bed. declined to meet with T/W. pt stated, I want to sleep. I didn't sleep enough . Pt encouraged to reach out to staff if he needs anything. Continue current tx plan. 06/01: Similar to yesterday. laying in bed. Irritable. declined to meet with T/W and pulled bed sheets over head. pt stated, I don't want to talk. I want to sleep . difficult to engage. Continue current tx plan. Reason for continued inpatient stay Substantial Risk for: med/psych decompensation Time Spent With Patient Time: Total time managing care of this patient today _10___ minutes.
[2025-06-01 20:20] VITALS: BP 131/66; PULSE 91; RESP 16; TEMP 37; O2SAT 100
[2025-06-02] MEDS: OLANZapine ODT 10 MG TAB.RAPDIS 20 MG TRANSLINGU (00:17)
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
[2025-06-02 19:46] VITALS: BP 125/60; PULSE 90; RESP 16; TEMP 36.9; O2SAT 99
[2025-06-03] MEDS: OLANZapine ODT 10 MG TAB.RAPDIS 20 MG TRANSLINGU (00:11)
[2025-06-03 08:00] VITALS: RESP 18
--- NOTE | 2025-06-03 09:30 | HO.PSYCHPN ---
Subjective Subjective Date of Service: 06/03/25 Reason For Visit: psychotic disorder Subjective Notes: Section 8 Interim History: Similar to yesterday. laying in bed all day. declined to meet with T/W despite calling name multiple times. friendly with staff forester. Continue current tx plan. Medication Compliance: Yes Side effects from medications: No Attending Groups: No Mental Status Exam Mental Status Exam Narrative: unable to assess; declined to meet with T/W Diagnostics Vital Signs (24Hr): Vital Signs - 24 hr 06/02/25 19:46 06/03/25 08:00 Temperature 98.4 F Pulse Rate 90 Respiratory Rate 16 18 Blood Pressure 125/60 Pulse Oximetry 99 Oxygen Delivery Method Room Air BMI result Body Mass Index 22.0 Labs 03/27/25 09:44 05/27/25 22:58 Medications Medications Current Medications Acetaminophen (Acetaminophen 325 Mg Tablet) 650 mg PO Q6H PRN PRN Reason: Headache/Pain, Scale 1-10 Last Admin: 04/01/25 23:20 Dose: 650 mg Al Hydroxide/Mg Hydroxide (Magnesium Hydrox/Alum Hydrox 30 Ml Oral.Susp) 30 ml PO Q6H PRN PRN Reason: Heartburn/Nausea Amoxicillin/Clavulanate Potassium (Amoxicillin/Potassium Clav 875 Mg Tablet) 875 mg PO BID [facility] Last Admin: 06/03/25 00:10 Dose: 875 mg Benzocaine (Benzocaine 20 % Oral Gel 14 Gm Tube) 1 appl MUCOUS MEM QID PRN; Protocol PRN Reason: Mouth Sore Pain Last Admin: 04/26/25 18:33 Dose: 1 appl Diazepam (Diazepam 10 Mg/2 Ml Cartridge) 10 mg IM BID PRN PRN Reason: refusal of lithium, mary floyd Last Admin: 04/11/25 09:56 Dose: 10 mg Haloperidol (Haloperidol 5 Mg Tablet) 5 mg PO Q4H PRN PRN Reason: agitation Hydroxyzine HCl (Hydroxyzine Hcl 25 Mg Tablet) 25 mg PO Q6H PRN PRN Reason: mild anxiety Ibuprofen (Ibuprofen 800 Mg Tablet) 800 mg PO Q6H PRN PRN Reason: pain (pain scale 1-10) Last Admin: 06/01/25 00:02 Dose: 800 mg Mccool Carbonate (Mccool Carbonate Er 300 Mg Tablet.Er) 600 mg PO DAILY [facility] Last Admin: 06/02/25 10:08 Dose: 600 mg Mccool Carbonate (Mccool Carbonate Er 450 Mg Tablet.Er) 900 mg PO DAILY@2300 [facility] Last Admin: 06/03/25 00:11 Dose: 900 mg Magnesium Hydroxide (Milk Of Magnesia 30 Ml Oral.Susp) 30 ml PO DAILY PRN PRN Reason: Constipation Methimazole (Methimazole 10 Mg Tablet) 10 mg PO DAILY [facility] Last Admin: 06/02/25 10:08 Dose: 10 mg Nicotine (Nicotine 21 Mg Patch.Td24) 21 mg TRANSDERMA DAILY PRN PRN Reason: nicotine cravings Last Admin: 04/12/25 17:06 Dose: 21 mg Nicotine Polacrilex (Nicotine Polacrilex Lozenge 2 Mg Lozenge) 2 mg BUCCAL Q1H PRN PRN Reason: Nicotine Cravings Last Admin: 04/30/25 08:49 Dose: 2 mg Patient Own Medication Excedrin 250/250/65mg 2 each PO Q8H PRN PRN Reason: Migraine Headache Last Admin: 04/18/25 18:03 Dose: 2 each Olanzapine (Olanzapine 10 Mg Vial) 10 mg IM BID PRN PRN Reason: refusal of PO, per maria luz's ord Last Admin: 04/11/25 09:56 Dose: 10 mg Olanzapine (Olanzapine Odt 10 Mg Tab.Rapdis) 20 mg TRANSLINGU DAILY@0 [facility] Last Admin: 06/03/25 00:11 Dose: 20 mg Quetiapine Fumarate (Quetiapine Fumarate 200 Mg Tablet) 200 mg PO BEDTIME PRN PRN Reason: insomnia Last Admin: 04/16/25 04:21 Dose: 200 mg Allergies Allergies Allergy/AdvReac Type Severity Reaction Status Date / Time No Known Allergies Allergy Verified 03/26/25 14:24 Assessment & Plan Assessment & Plan (1) Graves disease: Status: Acute Code(s): E05.00 - Thyrotoxicosis with diffuse goiter without thyrotoxic crisis or storm Assessment and Plan: Hyperthyroidism/Graves disease. He will need follow up with endocrinology as an outpatient He will also need a primary care doctor referral as an outpatient Discussed with Dr. Bejarano, patient will need free T4 weekly Decrease Methimazole to 15 mgs daily for three days and then 10 mgs daily- discussed with patient he is aware of plan and rationale. TSH and free T4 every 4 weeks. No need to draw thyroid stimulation immunology or TSH receptor AB (2) Dental abscess: Status: Acute Code(s): K04.7 - Periapical abscess without sinus Assessment and Plan: Carious tooth/dental infection Recently treated with PEN VK 500 mg q.6 hours for 7 days Patient will need follow up with dentist on discharge for tooth extraction Motrin helping pain. (3) Becca: Status: Acute Code(s): F30.9 - Manic episode, unspecified Plan 03/26: offer lithium and seroquel for becca. continue methimazole and beta joanne for hyperthyroidism as started at [facility]. trend TFTs. 12b. 03/27: taking methimazole and beta joanne. refused HS meds last night, took morning meds today. continue to encourage medication compliance. 03/28: intermittently taking meds. wants all meds in morning. pressured, manic, paranoid delusions. encouraged to take lithium but states he will not. all meds ordered for morning. 03/29: Keeping to self. no groups. observed laying in bed listening to music on unit headphones. pleasant. Pt reports feeling good today and sleeping well. declined lithium and zyprexa. denies SI/HI/VH/AH. continue current tx plan. 03/30:Irritable. upset he was unable to use his personal hygiene products. Per nursing, pt threatened staff and squeezed tooth paste throughout unit hallway to show his frustration. Pt was able to calm down after speaking with security. declined medications. 03/31: Keeping to self. laying in bed listening to music. refused medications. calm today. Patient reports feeling great ; pt stated, nothing is wrong with me. I'm waiting so I can leave tomorrow. I'm hoping for the best . denies SI/HI/VH/AH. per nursing, slept 6 hours. Continue current tx plan. 04/01: variably calm on the unit versus highly agitated. paranoid delusions, irritability, lability continue. seems to believe MD has met him prior to the present hospitalization and is stalking him. believes brother behind conspiracy to have him psychiatrically hospitalized. has been refusing all medications, including for hyperthyroidism. informed he would be filed on. filed. continue to offer medications. 04/02: continues agitated, belittling, verbally aggressive, refusing all medications including for hyperthyroidism. continue to offer medication. 04/03: paranoid there is a conspiracy to hospitalize him. threatening to stick a stick in staff once he is released by steam press operator. insists his hyperthyroidism was cured at [facility]. asserts there is NOTHING wrong with him. continue to offer medication. 04/04: irritable, rejecting. verbally abuses MD and sends him away: see you on monday [in court]. continue to offer medication for thyroid condition and mental illness. 04/05 continue tx. suspicious and guarded, accusatory, verbal threats to hurt staff and peers 04/06 intrusive, posturing towards staff and peer who he thinks is not real and is an impostor, continues to make verbal threats to harm him but thinks that because he is not real he may not experience any pain. 04/07: threatening statements and behaviors of yesterday noted. pt sleeping this morning, dismissive of MD. 04/08: asleep days. committed and meds ordered by court. 04/09: on being informed of court order and MD insisting on meds, pt escalated to hurling food item in container against wall at high speed and saying he wished he could do the same to MD's head. pt eventually took court ordered meds PO. sensodyne and excedrin not available in pharmacy (pt requesting them). 04/10: continue tx. Pt accepting medication today. 04/11: Keeping to self. Lying in bed most of morning. Declined to meet with T/W. Pt stated, I'm fine. I don't need anything . Listening to headphones in room. Declined court ordered PO medications; received IM medications. Refused vital signs.continue tx plan. 04/12: got IMs yesterday, took PO this morning. sleepy, no concerns or complaints. 04/13: taking PO meds again. slept 7 hours. sleepy again mid morning refusing interview. continue current mgmt. 04/14: sleeping, rousable. denies being sedated or tired, says he's just bored. no questions or complaints. informed of need to check labs. check lithium level and thyroid labs tonight. 04/15: refusing labs. delusional re his brother harming him. verbally abusive toward MD. spat in floor. happy with improvement in proptosis. 04/16: Lying in bed. Calm. cooperative. guarded. Pt reports feeling tired this morning d/t poor sleep last night. Pt stated, I don't need anything. I didn't sleep well so I'm trying to catch up . denies any issues at this time. denies SI/HI/VH/AH. Continue current tx plan. 04/17: more calm today, less explosive. continue current mgmt. 04/18: continues more calm. tolerating moments of frustration without verbally attacking MD. slept only 2 hours overnight, however. continue current mgmt. 04/19 continues to push boundaries and limits with staff mike around cell phone- 04/20 - aggressive with staff and unpredictable- threw water pitcher at staff behind desk/-when seen by provider passive in bed-denying all compaints/sys- no insight 04/21: appears as per last week. more difficult behaviors around cell phone use, did throw pitcher of water at RN monday over phone use and was restrained. continue current mgmt. 04/22: continues to have conflict around cell phone use. consolidate zyprexa at HS to decrease daytime sedation. 1:1 allegra shift until peer he is accusing of not being a real patient and appears to be targeting discharges tomorrow. 04/23: lithium 0.6 on 600 BID. sleeping better, remains delusional (telling SW who is marginally younger than him that she could be his daughter). just changed zyprexa dosing as of last night. continue current regimen and observe for continued stabilization. T/C slight increase in lithium dosing. 04/24: Laying in bed. guarded. calm. did not want to get out of bed to meet with T/W. Pt reports feeling great today but declined to go into detail. listening to music on unit headphones. Pt stated, I'm fine. I don't need anything . denies any issues at this time. denies SI/HI/VH/AH. Continue current tx plan. 04/25: Laying in bed. keeping to self. calm. paranoid. Discussed incident that occurred with staff last evening. Pt stated, the counselor made up a lie yesterday. I said she looks like my ex-girlfriend. I know they are related. They want to make up a lie to irritate me. They are trying to talk to me so they can use recording devices and make me look some kind of way . listening to music on unit headphones. denies SI/HI/VH/AH. Continue current tx plan. 04/26: Continue current regimen and plans. Increase Zyprexa 20 mg q.h.s. fresh air break withheld 04/27: Continue current regimen and plans 04/28: somewhat less irritable and agitated than last week. however, over the weekend was claiming he was the father of a footballer on TV and also that a staff member is a twin of his ex-GF (and he pushed staff member). TFTs improving. continue current mgmt. 04/29: no change in presentation. continue current mgmt. 04/30: no irritable edge today. calm, pleasant. engaging in small talk. reality testing not pressed. continue current mgmt for now. 05/01: no change in presentation. continue current mgmt. 05/02: BPs coming down, DC beta joanne as pt has been refusing anyway. remains not antagonistic toward MD. using phone appropriately. continue current mgmt otherwise. 05/03 continue 05/04: remains delusional, irritable/labile when delusional system confronted. declines to sign TOMMY for [facility] records. continue current mgmt. 05/06: declining to meet with MD, but does meet with medical student. remains upset about yesterday's confrontation re his delusional system. 05/07: Active on unit. keeping to self. pacing unit hallway while listening to unit headphones. medication compliant. patient reports feeling good ; pt stated, I'm just waiting to leave here. I want to return to my life and do things like go grocery shopping . denies SI/HI/VH/AH. Continue current tx plan. 05/08: stable presentation, delusions not being brought to the surface daily. remains affectively improved from admission. continue current mgmt. 05/09: calm, pleasant. no questions or complaints. continue current mgmt. 05/10: no change in presentation. due to lack of improvement in dental infection Sx, DC PCN and start augmentin. 05/11: no change in presentation. continue current mgmt. 05/12: as for yesterday. dental pain improving a bit. 05/13: expressed to medical student that his brother poisoned him, causing his thyroid disease. no change in presentation. continue current mgmt. 05/14: Pacing unit hallway. keeping to self. patient reports feeling good today; denies any issues at this time. denies SI/HI/VH/AH. per nursing, slept 5 hours. Continue current tx plan. 05/15: slept 6 hours. otherwise isolative, difficult to engage. continue current mgmt. 05/16: slept 7 hours. as for yesterday otherwise. 05/17/25: Slept well, no issue with appetite, skinny and pretty tall. Compliant with medication. No side effects Calm and pleasant upon approach. Some what paranoid. Tangential, however denies other safety concerns. Questions if he is discharging soon. He is on antibiotic for 7 days for mouth pain/tooth pain. We will finish the 7 course up in antibiotic after tonight dose. Then discontinue. 05/18/25: Slept for 5 hours plus hours this morning. In bed most of the shift, no behavior issues. Denies other safety concerns. 05/19: in bed days, up eves. no change in presentation. continue current mgmt. 05/20: no change in presentation. check labs. 05/21: lithium low, TFTs mixed and not all back. increase lithium from 600 BID to 600/900. trend BUN/Cr, with slight elevation. otherwise continue current mgmt. 05/22: no change in presentation. continue current mgmt. 05/23: does not deny someone stole his sperm and impregnated his landlord's child with it. irritable. c/o dental pain, antibx restarted. otherwise continue current mgmt. 05/14: no change in mgt 05/25: more isolative today; no change in mgt 05/26: decreases in methimazole noted. continue psych regimen as is. pt refused to interact with MD today. 05/27: i'm sleeping. no change in presentation. labs tonight. 05/28: no change in behavior. lithium 0.66, BUN stable. continue current mgmt. 05/29: irritable. continue current mgmt. 05/30: no longer in single room. still not engaging, sleeping days. continue current mgmt. 05/31:laying in bed. declined to meet with T/W. pt stated, I want to sleep. I didn't sleep enough . Pt encouraged to reach out to staff if he needs anything. Continue current tx plan. 06/01: Similar to yesterday. laying in bed. Irritable. declined to meet with T/W and pulled bed sheets over head. pt stated, I don't want to talk. I want to sleep . difficult to engage. Continue current tx plan. 06/02: Similar to yesterday. laying in bed. Irritable. declined to meet with T/W. Observed getting drink from kitchen; T/W approached pt and asked if they could speak. patient declined to acknowledge T/W and walked past. Continue current tx plan. 06/03: no change in behavior. continue tx plan. Reason for continued inpatient stay Substantial Risk for: med/psych decompensation Time Spent With Patient Time: Total time managing care of this patient today _10___ minutes.
[2025-06-03 20:00] VITALS: BP 137/85; PULSE 100; RESP 16; TEMP 36.4; O2SAT 100
[2025-06-04] MEDS: OLANZapine ODT 10 MG TAB.RAPDIS 20 MG TRANSLINGU (00:28)
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
[2025-06-04 20:00] VITALS: BP 141/67; PULSE 92; RESP 18; TEMP 36.9; O2SAT 100
[2025-06-05] MEDS: OLANZapine ODT 10 MG TAB.RAPDIS 20 MG TRANSLINGU (00:12)
[2025-06-05 07:00] VITALS: BMI 24.0
--- NOTE | 2025-06-05 15:09 | HO.PSYCHPN ---
Subjective Subjective Date of Service: 06/05/25 Reason For Visit: psychotic disorder Subjective Notes: Section 8 Interim History: Continues to sleep throughout the day. declining to meet with T/W. irritable when T/W attempts to engage. medication compliant. continue tx plan Medication Compliance: Yes Side effects from medications: No Attending Groups: No Mental Status Exam Mental Status Exam Narrative: unable to assess d/t pt declining to meet with T/W Diagnostics Vital Signs (24Hr): Vital Signs - 24 hr 06/04/25 20:00 Temperature 98.5 F Pulse Rate 92 Respiratory Rate 18 Blood Pressure 141/67 H Pulse Oximetry 100 Oxygen Delivery Method Room Air BMI result Body Mass Index 24.0 Labs 03/27/25 09:44 05/27/25 22:58 Medications Medications Current Medications Acetaminophen (Acetaminophen 325 Mg Tablet) 650 mg PO Q6H PRN PRN Reason: Headache/Pain, Scale 1-10 Last Admin: 04/01/25 23:20 Dose: 650 mg Al Hydroxide/Mg Hydroxide (Magnesium Hydrox/Alum Hydrox 30 Ml Oral.Susp) 30 ml PO Q6H PRN PRN Reason: Heartburn/Nausea Amoxicillin/Clavulanate Potassium (Amoxicillin/Potassium Clav 875 Mg Tablet) 875 mg PO BID [facility] Last Admin: 06/05/25 09:51 Dose: 875 mg Benzocaine (Benzocaine 20 % Oral Gel 14 Gm Tube) 1 appl MUCOUS MEM QID PRN; Protocol PRN Reason: Mouth Sore Pain Last Admin: 04/26/25 18:33 Dose: 1 appl Diazepam (Diazepam 10 Mg/2 Ml Cartridge) 10 mg IM BID PRN PRN Reason: refusal of lithium, mary floyd Last Admin: 04/11/25 09:56 Dose: 10 mg Haloperidol (Haloperidol 5 Mg Tablet) 5 mg PO Q4H PRN PRN Reason: agitation Hydroxyzine HCl (Hydroxyzine Hcl 25 Mg Tablet) 25 mg PO Q6H PRN PRN Reason: mild anxiety Ibuprofen (Ibuprofen 800 Mg Tablet) 800 mg PO Q6H PRN PRN Reason: pain (pain scale 1-10) Last Admin: 06/05/25 04:03 Dose: 800 mg [place] Carbonate ([place] Carbonate Er 300 Mg Tablet.Er) 600 mg PO DAILY [facility] Last Admin: 06/05/25 09:51 Dose: 600 mg [place] Carbonate ([place] Carbonate Er 450 Mg Tablet.Er) 900 mg PO DAILY@2300 [facility] Last Admin: 06/05/25 00:11 Dose: 900 mg Magnesium Hydroxide (Milk Of Magnesia 30 Ml Oral.Susp) 30 ml PO DAILY PRN PRN Reason: Constipation Methimazole (Methimazole 10 Mg Tablet) 10 mg PO DAILY [facility] Last Admin: 06/05/25 09:51 Dose: 10 mg Nicotine (Nicotine 21 Mg Patch.Td24) 21 mg TRANSDERMA DAILY PRN PRN Reason: nicotine cravings Last Admin: 04/12/25 17:06 Dose: 21 mg Nicotine Polacrilex (Nicotine Polacrilex Lozenge 2 Mg Lozenge) 2 mg BUCCAL Q1H PRN PRN Reason: Nicotine Cravings Last Admin: 04/30/25 08:49 Dose: 2 mg Patient Own Medication Excedrin 250/250/65mg 2 each PO Q8H PRN PRN Reason: Migraine Headache Last Admin: 04/18/25 18:03 Dose: 2 each Olanzapine (Olanzapine 10 Mg Vial) 10 mg IM BID PRN PRN Reason: refusal of PO, per maria luz's ord Last Admin: 04/11/25 09:56 Dose: 10 mg Olanzapine (Olanzapine Odt 10 Mg Tab.Rapdis) 20 mg TRANSLINGU DAILY@2300 [facility] Last Admin: 06/05/25 00:12 Dose: 20 mg Quetiapine Fumarate (Quetiapine Fumarate 200 Mg Tablet) 200 mg PO BEDTIME PRN PRN Reason: insomnia Last Admin: 04/16/25 04:21 Dose: 200 mg Allergies Allergies Allergy/AdvReac Type Severity Reaction Status Date / Time No Known Allergies Allergy Verified 03/26/25 14:24 Assessment & Plan Assessment & Plan (1) Graves disease: Status: Acute Code(s): E05.00 - Thyrotoxicosis with diffuse goiter without thyrotoxic crisis or storm Assessment and Plan: Hyperthyroidism/Graves disease. He will need follow up with endocrinology as an outpatient He will also need a primary care doctor referral as an outpatient Discussed with Dr. Bejarano, patient will need free T4 weekly Decrease Methimazole to 15 mgs daily for three days and then 10 mgs daily- discussed with patient he is aware of plan and rationale. TSH and free T4 every 4 weeks. No need to draw thyroid stimulation immunology or TSH receptor AB (2) Dental abscess: Status: Acute Code(s): K04.7 - Periapical abscess without sinus Assessment and Plan: Carious tooth/dental infection Recently treated with PEN VK 500 mg q.6 hours for 7 days Patient will need follow up with dentist on discharge for tooth extraction Motrin helping pain. (3) Becca: Status: Acute Code(s): F30.9 - Manic episode, unspecified Plan 03/26: offer lithium and seroquel for becca. continue methimazole and beta joanne for hyperthyroidism as started at [facility] [place]. trend TFTs. 12b. 03/27: taking methimazole and beta joanne. refused HS meds last night, took morning meds today. continue to encourage medication compliance. 03/28: intermittently taking meds. wants all meds in morning. pressured, manic, paranoid delusions. encouraged to take lithium but states he will not. all meds ordered for morning. 03/29: Keeping to self. no groups. observed laying in bed listening to music on unit headphones. pleasant. Pt reports feeling good today and sleeping well. declined lithium and zyprexa. denies SI/HI/VH/AH. continue current tx plan. 03/30:Irritable. upset he was unable to use his personal hygiene products. Per nursing, pt threatened staff and squeezed tooth paste throughout unit hallway to show his frustration. Pt was able to calm down after speaking with security. declined medications. 03/31: Keeping to self. laying in bed listening to music. refused medications. calm today. Patient reports feeling great ; pt stated, nothing is wrong with me. I'm waiting so I can leave tomorrow. I'm hoping for the best . denies SI/HI/VH/AH. per nursing, slept 6 hours. Continue current tx plan. 04/01: variably calm on the unit versus highly agitated. paranoid delusions, irritability, lability continue. seems to believe MD has met him prior to the present hospitalization and is stalking him. believes brother behind conspiracy to have him psychiatrically hospitalized. has been refusing all medications, including for hyperthyroidism. informed he would be filed on. filed. continue to offer medications. 04/02: continues agitated, belittling, verbally aggressive, refusing all medications including for hyperthyroidism. continue to offer medication. 04/03: paranoid there is a conspiracy to hospitalize him. threatening to stick a stick in staff once he is released by us administrative law judge. insists his hyperthyroidism was cured at [facility]. asserts there is NOTHING wrong with him. continue to offer medication. 04/04: irritable, rejecting. verbally abuses MD and sends him away: see you on monday [in court]. continue to offer medication for thyroid condition and mental illness. 04/05 continue tx. suspicious and guarded, accusatory, verbal threats to hurt staff and peers 04/06 intrusive, posturing towards staff and peer who he thinks is not real and is an impostor, continues to make verbal threats to harm him but thinks that because he is not real he may not experience any pain. 04/07: threatening statements and behaviors of yesterday noted. pt sleeping this morning, dismissive of MD. 04/08: asleep days. committed and meds ordered by court. 04/09: on being informed of court order and MD insisting on meds, pt escalated to hurling food item in container against wall at high speed and saying he wished he could do the same to MD's head. pt eventually took court ordered meds PO. sensodyne and excedrin not available in pharmacy (pt requesting them). 04/10: continue tx. Pt accepting medication today. 04/11: Keeping to self. Lying in bed most of morning. Declined to meet with T/W. Pt stated, I'm fine. I don't need anything . Listening to headphones in room. Declined court ordered PO medications; received IM medications. Refused vital signs.continue tx plan. 04/12: got IMs yesterday, took PO this morning. sleepy, no concerns or complaints. 04/13: taking PO meds again. slept 7 hours. sleepy again mid morning refusing interview. continue current mgmt. 04/14: sleeping, rousable. denies being sedated or tired, says he's just bored. no questions or complaints. informed of need to check labs. check lithium level and thyroid labs tonight. 04/15: refusing labs. delusional re his brother harming him. verbally abusive toward MD. spat in floor. happy with improvement in proptosis. 04/16: Lying in bed. Calm. cooperative. guarded. Pt reports feeling tired this morning d/t poor sleep last night. Pt stated, I don't need anything. I didn't sleep well so I'm trying to catch up . denies any issues at this time. denies SI/HI/VH/AH. Continue current tx plan. 04/17: more calm today, less explosive. continue current mgmt. 04/18: continues more calm. tolerating moments of frustration without verbally attacking MD. slept only 2 hours overnight, however. continue current mgmt. 04/19 continues to push boundaries and limits with staff mike around cell phone- 04/20 - aggressive with staff and unpredictable- threw water pitcher at staff behind desk/-when seen by provider passive in bed-denying all compaints/sys- no insight 04/21: appears as per last week. more difficult behaviors around cell phone use, did throw pitcher of water at RN monday over phone use and was restrained. continue current mgmt. 04/22: continues to have conflict around cell phone use. consolidate zyprexa at HS to decrease daytime sedation. 1:1 allegra shift until peer he is accusing of not being a real patient and appears to be targeting discharges tomorrow. 04/23: lithium 0.6 on 600 BID. sleeping better, remains delusional (telling SW who is marginally younger than him that she could be his daughter). just changed zyprexa dosing as of last night. continue current regimen and observe for continued stabilization. T/C slight increase in lithium dosing. 04/24: Laying in bed. guarded. calm. did not want to get out of bed to meet with T/W. Pt reports feeling great today but declined to go into detail. listening to music on unit headphones. Pt stated, I'm fine. I don't need anything . denies any issues at this time. denies SI/HI/VH/AH. Continue current tx plan. 04/25: Laying in bed. keeping to self. calm. paranoid. Discussed incident that occurred with staff last evening. Pt stated, the counselor made up a lie yesterday. I said she looks like my ex-girlfriend. I know they are related. They want to make up a lie to irritate me. They are trying to talk to me so they can use recording devices and make me look some kind of way . listening to music on unit headphones. denies SI/HI/VH/AH. Continue current tx plan. 04/26: Continue current regimen and plans. Increase Zyprexa 20 mg q.h.s. fresh air break withheld 04/27: Continue current regimen and plans 04/28: somewhat less irritable and agitated than last week. however, over the weekend was claiming he was the father of a footballer on TV and also that a staff member is a twin of his ex-GF (and he pushed staff member). TFTs improving. continue current mgmt. 04/29: no change in presentation. continue current mgmt. 04/30: no irritable edge today. calm, pleasant. engaging in small talk. reality testing not pressed. continue current mgmt for now. 05/01: no change in presentation. continue current mgmt. 05/02: BPs coming down, DC beta joanne as pt has been refusing anyway. remains not antagonistic toward MD. using phone appropriately. continue current mgmt otherwise. 05/03 continue 05/04: remains delusional, irritable/labile when delusional system confronted. declines to sign TOMMY for [facility] records. continue current mgmt. 05/06: declining to meet with MD, but does meet with medical student. remains upset about yesterday's confrontation re his delusional system. 05/07: Active on unit. keeping to self. pacing unit hallway while listening to unit headphones. medication compliant. patient reports feeling good ; pt stated, I'm just waiting to leave here. I want to return to my life and do things like go grocery shopping . denies SI/HI/VH/AH. Continue current tx plan. 05/08: stable presentation, delusions not being brought to the surface daily. remains affectively improved from admission. continue current mgmt. 05/09: calm, pleasant. no questions or complaints. continue current mgmt. 05/10: no change in presentation. due to lack of improvement in dental infection Sx, DC PCN and start augmentin. 05/11: no change in presentation. continue current mgmt. 05/12: as for yesterday. dental pain improving a bit. 05/13: expressed to medical student that his brother poisoned him, causing his thyroid disease. no change in presentation. continue current mgmt. 05/14: Pacing unit hallway. keeping to self. patient reports feeling good today; denies any issues at this time. denies SI/HI/VH/AH. per nursing, slept 5 hours. Continue current tx plan. 05/15: slept 6 hours. otherwise isolative, difficult to engage. continue current mgmt. 05/16: slept 7 hours. as for yesterday otherwise. 05/17/25: Slept well, no issue with appetite, skinny and pretty tall. Compliant with medication. No side effects Calm and pleasant upon approach. Some what paranoid. Tangential, however denies other safety concerns. Questions if he is discharging soon. He is on antibiotic for 7 days for mouth pain/tooth pain. We will finish the 7 course up in antibiotic after tonight dose. Then discontinue. 05/18/25: Slept for 5 hours plus hours this morning. In bed most of the shift, no behavior issues. Denies other safety concerns. 05/19: in bed days, up eves. no change in presentation. continue current mgmt. 05/20: no change in presentation. check labs. 05/21: lithium low, TFTs mixed and not all back. increase lithium from 600 BID to 600/900. trend BUN/Cr, with slight elevation. otherwise continue current mgmt. 05/22: no change in presentation. continue current mgmt. 05/23: does not deny someone stole his sperm and impregnated his landlord's child with it. irritable. c/o dental pain, antibx restarted. otherwise continue current mgmt. 05/14: no change in mgt 05/25: more isolative today; no change in mgt 05/26: decreases in methimazole noted. continue psych regimen as is. pt refused to interact with MD today. 05/27: i'm sleeping. no change in presentation. labs tonight. 05/28: no change in behavior. lithium 0.66, BUN stable. continue current mgmt. 05/29: irritable. continue current mgmt. 05/30: no longer in single room. still not engaging, sleeping days. continue current mgmt. 05/31:laying in bed. declined to meet with T/W. pt stated, I want to sleep. I didn't sleep enough . Pt encouraged to reach out to staff if he needs anything. Continue current tx plan. 06/01: Similar to yesterday. laying in bed. Irritable. declined to meet with T/W and pulled bed sheets over head. pt stated, I don't want to talk. I want to sleep . difficult to engage. Continue current tx plan. 06/02: Similar to yesterday. laying in bed. Irritable. declined to meet with T/W. Observed getting drink from kitchen; T/W approached pt and asked if they could speak. patient declined to acknowledge T/W and walked past. Continue current tx plan. 06/03: no change in behavior. continue tx plan. 06/04/25: Passive engaged in the assessment, in bed mostly sleeping this morning which could be interfere with his nighttime. Cover body under the blanket Slept for 4-5 hours last night. Was medication compliant, attended no groups, isolative to self in room. No SI/SIB/HI/AVH expressed. 06/05: continue tx plan. Reason for continued inpatient stay Substantial Risk for: med/psych decompensation Time Spent With Patient Time: Total time managing care of this patient today _10___ minutes.
[2025-06-05 20:00] VITALS: BP 139/65; PULSE 92; RESP 18; TEMP 36.9; O2SAT 99
[2025-06-06] MEDS: OLANZapine ODT 10 MG TAB.RAPDIS 20 MG TRANSLINGU (00:10)
[2025-06-06 08:00] VITALS: BP 132/70; PULSE 88; RESP 18; TEMP 36.8; O2SAT 99
--- NOTE | 2025-06-06 10:22 | P.PNPSI_ITS ---
Subjective Subjective Date of Service: 06/06/25 Reason For Visit: psychotic disorder Subjective Notes: Section 8 Interim History: Continues to sleep throughout the day. medication compliant. Pt reports feeling fine ; states, I don't need anything and pulled bed sheets over face. continue tx plan Medication Compliance: Yes Attending Groups: No Mental Status Exam Mental Status Exam Narrative: unable to assess d/t pt declining to meet with T/W Diagnostics Vital Signs (24Hr): Vital Signs - 24 hr 06/05/25 20:00 Temperature 98.4 F Pulse Rate 92 Respiratory Rate 18 Blood Pressure 139/65 Pulse Oximetry 99 Oxygen Delivery Method Room Air BMI result Body Mass Index 24.0 Labs 03/27/25 09:44 05/27/25 22:58 Medications Medications Current Medications Acetaminophen (Acetaminophen 325 Mg Tablet) 650 mg PO Q6H PRN PRN Reason: Headache/Pain, Scale 1-10 Last Admin: 04/01/25 23:20 Dose: 650 mg Al Hydroxide/Mg Hydroxide (Magnesium Hydrox/Alum Hydrox 30 Ml Oral.Susp) 30 ml PO Q6H PRN PRN Reason: Heartburn/Nausea Amoxicillin/Clavulanate Potassium (Amoxicillin/Potassium Clav 875 Mg Tablet) 875 mg PO BID [facility] Last Admin: 06/06/25 10:14 Dose: 875 mg Benzocaine (Benzocaine 20 % Oral Gel 14 Gm Tube) 1 appl MUCOUS MEM QID PRN; Protocol PRN Reason: Mouth Sore Pain Last Admin: 04/26/25 18:33 Dose: 1 appl Diazepam (Diazepam 10 Mg/2 Ml Cartridge) 10 mg IM BID PRN PRN Reason: refusal of lithium, mary floyd Last Admin: 04/11/25 09:56 Dose: 10 mg Haloperidol (Haloperidol 5 Mg Tablet) 5 mg PO Q4H PRN PRN Reason: agitation Hydroxyzine HCl (Hydroxyzine Hcl 25 Mg Tablet) 25 mg PO Q6H PRN PRN Reason: mild anxiety Ibuprofen (Ibuprofen 800 Mg Tablet) 800 mg PO Q6H PRN PRN Reason: pain (pain scale 1-10) Last Admin: 06/05/25 04:03 Dose: 800 mg [place] Carbonate ([place] Carbonate Er 300 Mg Tablet.Er) 600 mg PO DAILY [facility] Last Admin: 06/06/25 10:14 Dose: 600 mg [place] Carbonate ([place] Carbonate Er 450 Mg Tablet.Er) 900 mg PO DAILY@2300 [facility] Last Admin: 06/06/25 00:09 Dose: 900 mg Magnesium Hydroxide (Milk Of Magnesia 30 Ml Oral.Susp) 30 ml PO DAILY PRN PRN Reason: Constipation Methimazole (Methimazole 10 Mg Tablet) 10 mg PO DAILY [facility] Last Admin: 06/06/25 10:14 Dose: 10 mg Nicotine (Nicotine 21 Mg Patch.Td24) 21 mg TRANSDERMA DAILY PRN PRN Reason: nicotine cravings Last Admin: 04/12/25 17:06 Dose: 21 mg Nicotine Polacrilex (Nicotine Polacrilex Lozenge 2 Mg Lozenge) 2 mg BUCCAL Q1H PRN PRN Reason: Nicotine Cravings Last Admin: 04/30/25 08:49 Dose: 2 mg Patient Own Medication Excedrin 250/250/65mg 2 each PO Q8H PRN PRN Reason: Migraine Headache Last Admin: 04/18/25 18:03 Dose: 2 each Olanzapine (Olanzapine 10 Mg Vial) 10 mg IM BID PRN PRN Reason: refusal of PO, per maria luz's ord Last Admin: 04/11/25 09:56 Dose: 10 mg Olanzapine (Olanzapine Odt 10 Mg Tab.Rapdis) 20 mg TRANSLINGU DAILY@0 [facility] Last Admin: 06/06/25 00:10 Dose: 20 mg Quetiapine Fumarate (Quetiapine Fumarate 200 Mg Tablet) 200 mg PO BEDTIME PRN PRN Reason: insomnia Last Admin: 04/16/25 04:21 Dose: 200 mg Allergies Allergies Allergy/AdvReac Type Severity Reaction Status Date / Time No Known Allergies Allergy Verified 03/26/25 14:24 Assessment & Plan Assessment & Plan (1) Graves disease: Status: Acute Code(s): E05.00 - Thyrotoxicosis with diffuse goiter without thyrotoxic crisis or storm Assessment and Plan: Hyperthyroidism/Graves disease. He will need follow up with endocrinology as an outpatient He will also need a primary care doctor referral as an outpatient Discussed with Dr. Bejarano, patient will need free T4 weekly Decrease Methimazole to 15 mgs daily for three days and then 10 mgs daily- discussed with patient he is aware of plan and rationale. TSH and free T4 every 4 weeks. No need to draw thyroid stimulation immunology or TSH receptor AB (2) Dental abscess: Status: Acute Code(s): K04.7 - Periapical abscess without sinus Assessment and Plan: Carious tooth/dental infection Recently treated with PEN VK 500 mg q.6 hours for 7 days Patient will need follow up with dentist on discharge for tooth extraction Motrin helping pain. (3) Becca: Status: Acute Code(s): F30.9 - Manic episode, unspecified Plan 03/26: offer lithium and seroquel for becca. continue methimazole and beta joanne for hyperthyroidism as started at [facility] [place]. trend TFTs. 12b. 03/27: taking methimazole and beta joanne. refused HS meds last night, took morning meds today. continue to encourage medication compliance. 03/28: intermittently taking meds. wants all meds in morning. pressured, manic, paranoid delusions. encouraged to take lithium but states he will not. all meds ordered for morning. 03/29: Keeping to self. no groups. observed laying in bed listening to music on unit headphones. pleasant. Pt reports feeling good today and sleeping well. declined lithium and zyprexa. denies SI/HI/VH/AH. continue current tx plan. 03/30:Irritable. upset he was unable to use his personal hygiene products. Per nursing, pt threatened staff and squeezed tooth paste throughout unit hallway to show his frustration. Pt was able to calm down after speaking with security. declined medications. 03/31: Keeping to self. laying in bed listening to music. refused medications. calm today. Patient reports feeling great ; pt stated, nothing is wrong with me. I'm waiting so I can leave tomorrow. I'm hoping for the best . denies SI/HI/VH/AH. per nursing, slept 6 hours. Continue current tx plan. 04/01: variably calm on the unit versus highly agitated. paranoid delusions, irritability, lability continue. seems to believe MD has met him prior to the present hospitalization and is stalking him. believes brother behind conspiracy to have him psychiatrically hospitalized. has been refusing all medications, including for hyperthyroidism. informed he would be filed on. filed. continue to offer medications. 04/02: continues agitated, belittling, verbally aggressive, refusing all medications including for hyperthyroidism. continue to offer medication. 04/03: paranoid there is a conspiracy to hospitalize him. threatening to stick a stick in staff once he is released by qa test analyst. insists his hyperthyroidism was cured at [facility]. asserts there is NOTHING wrong with him. continue to offer medication. 04/04: irritable, rejecting. verbally abuses MD and sends him away: see you on monday [in court]. continue to offer medication for thyroid condition and mental illness. 04/05 continue tx. suspicious and guarded, accusatory, verbal threats to hurt staff and peers 04/06 intrusive, posturing towards staff and peer who he thinks is not real and is an impostor, continues to make verbal threats to harm him but thinks that because he is not real he may not experience any pain. 04/07: threatening statements and behaviors of yesterday noted. pt sleeping this morning, dismissive of MD. 04/08: asleep days. committed and meds ordered by court. 04/09: on being informed of court order and MD insisting on meds, pt escalated to hurling food item in container against wall at high speed and saying he wished he could do the same to MD's head. pt eventually took court ordered meds PO. sensodyne and excedrin not available in pharmacy (pt requesting them). 04/10: continue tx. Pt accepting medication today. 04/11: Keeping to self. Lying in bed most of morning. Declined to meet with T/W. Pt stated, I'm fine. I don't need anything . Listening to headphones in room. Declined court ordered PO medications; received IM medications. Refused vital signs.continue tx plan. 04/12: got IMs yesterday, took PO this morning. sleepy, no concerns or complaints. 04/13: taking PO meds again. slept 7 hours. sleepy again mid morning refusing interview. continue current mgmt. 04/14: sleeping, rousable. denies being sedated or tired, says he's just bored. no questions or complaints. informed of need to check labs. check lithium level and thyroid labs tonight. 04/15: refusing labs. delusional re his brother harming him. verbally abusive toward MD. spat in floor. happy with improvement in proptosis. 04/16: Lying in bed. Calm. cooperative. guarded. Pt reports feeling tired this morning d/t poor sleep last night. Pt stated, I don't need anything. I didn't sleep well so I'm trying to catch up . denies any issues at this time. denies SI/HI/VH/AH. Continue current tx plan. 04/17: more calm today, less explosive. continue current mgmt. 04/18: continues more calm. tolerating moments of frustration without verbally attacking MD. slept only 2 hours overnight, however. continue current mgmt. 04/19 continues to push boundaries and limits with staff mike around cell phone- 04/20 - aggressive with staff and unpredictable- threw water pitcher at staff behind desk/-when seen by provider passive in bed-denying all compaints/sys- no insight 04/21: appears as per last week. more difficult behaviors around cell phone use, did throw pitcher of water at RN monday over phone use and was restrained. continue current mgmt. 04/22: continues to have conflict around cell phone use. consolidate zyprexa at HS to decrease daytime sedation. 1:1 allegra shift until peer he is accusing of not being a real patient and appears to be targeting discharges tomorrow. 04/23: lithium 0.6 on 600 BID. sleeping better, remains delusional (telling SW who is marginally younger than him that she could be his daughter). just changed zyprexa dosing as of last night. continue current regimen and observe for continued stabilization. T/C slight increase in lithium dosing. 04/24: Laying in bed. guarded. calm. did not want to get out of bed to meet with T/W. Pt reports feeling great today but declined to go into detail. listening to music on unit headphones. Pt stated, I'm fine. I don't need anything . denies any issues at this time. denies SI/HI/VH/AH. Continue current tx plan. 04/25: Laying in bed. keeping to self. calm. paranoid. Discussed incident that occurred with staff last evening. Pt stated, the counselor made up a lie yesterday. I said she looks like my ex-girlfriend. I know they are related. They want to make up a lie to irritate me. They are trying to talk to me so they can use recording devices and make me look some kind of way . listening to music on unit headphones. denies SI/HI/VH/AH. Continue current tx plan. 04/26: Continue current regimen and plans. Increase Zyprexa 20 mg q.h.s. fresh air break withheld 04/27: Continue current regimen and plans 04/28: somewhat less irritable and agitated than last week. however, over the weekend was claiming he was the father of a footballer on TV and also that a staff member is a twin of his ex-GF (and he pushed staff member). TFTs improving. continue current mgmt. 04/29: no change in presentation. continue current mgmt. 04/30: no irritable edge today. calm, pleasant. engaging in small talk. reality testing not pressed. continue current mgmt for now. 05/01: no change in presentation. continue current mgmt. 05/02: BPs coming down, DC beta joanne as pt has been refusing anyway. remains not antagonistic toward MD. using phone appropriately. continue current mgmt otherwise. 05/03 continue 05/04: remains delusional, irritable/labile when delusional system confronted. declines to sign TOMMY for [facility] records. continue current mgmt. 05/06: declining to meet with MD, but does meet with medical student. remains upset about yesterday's confrontation re his delusional system. 05/07: Active on unit. keeping to self. pacing unit hallway while listening to unit headphones. medication compliant. patient reports feeling good ; pt stated, I'm just waiting to leave here. I want to return to my life and do things like go grocery shopping . denies SI/HI/VH/AH. Continue current tx plan. 05/08: stable presentation, delusions not being brought to the surface daily. remains affectively improved from admission. continue current mgmt. 05/09: calm, pleasant. no questions or complaints. continue current mgmt. 05/10: no change in presentation. due to lack of improvement in dental infection Sx, DC PCN and start augmentin. 05/11: no change in presentation. continue current mgmt. 05/12: as for yesterday. dental pain improving a bit. 05/13: expressed to medical student that his brother poisoned him, causing his thyroid disease. no change in presentation. continue current mgmt. 05/14: Pacing unit hallway. keeping to self. patient reports feeling good today; denies any issues at this time. denies SI/HI/VH/AH. per nursing, slept 5 hours. Continue current tx plan. 05/15: slept 6 hours. otherwise isolative, difficult to engage. continue current mgmt. 05/16: slept 7 hours. as for yesterday otherwise. 05/17/25: Slept well, no issue with appetite, skinny and pretty tall. Compliant with medication. No side effects Calm and pleasant upon approach. Some what paranoid. Tangential, however denies other safety concerns. Questions if he is discharging soon. He is on antibiotic for 7 days for mouth pain/tooth pain. We will finish the 7 course up in antibiotic after tonight dose. Then discontinue. 05/18/25: Slept for 5 hours plus hours this morning. In bed most of the shift, no behavior issues. Denies other safety concerns. 05/19: in bed days, up eves. no change in presentation. continue current mgmt. 05/20: no change in presentation. check labs. 05/21: lithium low, TFTs mixed and not all back. increase lithium from 600 BID to 600/900. trend BUN/Cr, with slight elevation. otherwise continue current mgmt. 05/22: no change in presentation. continue current mgmt. 05/23: does not deny someone stole his sperm and impregnated his landlord's child with it. irritable. c/o dental pain, antibx restarted. otherwise continue current mgmt. 05/14: no change in mgt 05/25: more isolative today; no change in mgt 05/26: decreases in methimazole noted. continue psych regimen as is. pt refused to interact with MD today. 05/27: i'm sleeping. no change in presentation. labs tonight. 05/28: no change in behavior. lithium 0.66, BUN stable. continue current mgmt. 05/29: irritable. continue current mgmt. 05/30: no longer in single room. still not engaging, sleeping days. continue current mgmt. 05/31:laying in bed. declined to meet with T/W. pt stated, I want to sleep. I didn't sleep enough . Pt encouraged to reach out to staff if he needs anything. Continue current tx plan. 06/01: Similar to yesterday. laying in bed. Irritable. declined to meet with T/W and pulled bed sheets over head. pt stated, I don't want to talk. I want to sleep . difficult to engage. Continue current tx plan. 06/02: Similar to yesterday. laying in bed. Irritable. declined to meet with T/W. Observed getting drink from kitchen; T/W approached pt and asked if they could speak. patient declined to acknowledge T/W and walked past. Continue current tx plan. 06/03: no change in behavior. continue tx plan. 06/04/25: Passive engaged in the assessment, in bed mostly sleeping this morning which could be interfere with his nighttime. Cover body under the blanket Slept for 4-5 hours last night. Was medication compliant, attended no groups, isolative to self in room. No SI/SIB/HI/AVH expressed. 06/05: continue tx plan. 06/06: reports feeling fine ; continues guarded. difficult to engage. declining to meet with T/W. continue tx plan. Reason for continued inpatient stay Substantial Risk for: med/psych decompensation Time Spent With Patient Time: Total time managing care of this patient today _10___ minutes.
[2025-06-06 20:18] VITALS: BP 155/71; PULSE 86; TEMP 36.6; O2SAT 100
[2025-06-07] MEDS: OLANZapine ODT 10 MG TAB.RAPDIS 20 MG TRANSLINGU (00:10)
[2025-06-07 07:53] VITALS: BP 133/66; PULSE 84; RESP 16; TEMP 36.8; O2SAT 98
[2025-06-07 20:25] VITALS: BP 143/78; PULSE 101; RESP 18; TEMP 36.2; O2SAT 100
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
[2025-06-08] MEDS: OLANZapine ODT 10 MG TAB.RAPDIS 20 MG TRANSLINGU (00:17)
[2025-06-08 20:00] VITALS: BP 146/85; PULSE 90; RESP 16; TEMP 36.7; O2SAT 99
--- NOTE | 2025-06-08 22:07 | HO.PSYCHPN ---
Subjective Subjective Date of Service: 06/08/25 Reason For Visit: psychotic disorder Subjective Notes: [place] Order and Section 8 Healthcare Proxy: No Guardianship: No Medical Problems Affecting Mental Status: No Interim History: Medical record and nursing notes reviewed; case discussed during rounds with team/nursing staff, and met with patient for supportive therapy/psychoeducation, as well as medication management. Slept for 3-4 hours last night, compliant with medications. Denies side effects, denies other safety concerns. Continued to encourage patient to up and down more than on the unit he spent most of the day sleeping. He is pleasant upon approach. No other behavior issues. Denied voices/hallucinations. Suicide thoughts or homicidal thoughts. Medication Compliance: Yes Side effects from medications: No Attending Groups: No Review of Systems Acute medical concerns: No Medical Review of Systems: unchanged Review of Systems Review of Systems Yes all other systems are reviewed and are negative Mental Status Exam Mental Status Exam Narrative: He is under blanket, in bed sleeping. Passive engaging in assessment. Denies safety concerns. No SI//SIB/HI/AVH expressed. Diagnostics Vital Signs (24Hr): BMI result Body Mass Index 24.0 Labs 03/27/25 09:44 05/27/25 22:58 Medications Medications Current Medications Acetaminophen (Acetaminophen 325 Mg Tablet) 650 mg PO Q6H PRN PRN Reason: Headache/Pain, Scale 1-10 Last Admin: 04/01/25 23:20 Dose: 650 mg Al Hydroxide/Mg Hydroxide (Magnesium Hydrox/Alum Hydrox 30 Ml Oral.Susp) 30 ml PO Q6H PRN PRN Reason: Heartburn/Nausea Amoxicillin/Clavulanate Potassium (Amoxicillin/Potassium Clav 875 Mg Tablet) 875 mg PO BID [facility] Last Admin: 06/08/25 09:44 Dose: 875 mg Benzocaine (Benzocaine 20 % Oral Gel 14 Gm Tube) 1 appl MUCOUS MEM QID PRN; Protocol PRN Reason: Mouth Sore Pain Last Admin: 04/26/25 18:33 Dose: 1 appl Diazepam (Diazepam 10 Mg/2 Ml Cartridge) 10 mg IM BID PRN PRN Reason: refusal of lithium, per everett Last Admin: 04/11/25 09:56 Dose: 10 mg Haloperidol (Haloperidol 5 Mg Tablet) 5 mg PO Q4H PRN PRN Reason: agitation Hydroxyzine HCl (Hydroxyzine Hcl 25 Mg Tablet) 25 mg PO Q6H PRN PRN Reason: mild anxiety Ibuprofen (Ibuprofen 800 Mg Tablet) 800 mg PO Q6H PRN PRN Reason: pain (pain scale 1-10) Last Admin: 06/05/25 04:03 Dose: 800 mg [place] Carbonate ([place] Carbonate Er 300 Mg Tablet.Er) 600 mg PO DAILY [facility] Last Admin: 06/08/25 09:44 Dose: 600 mg [place] Carbonate ([place] Carbonate Er 450 Mg Tablet.Er) 900 mg PO DAILY@2300 [facility] Last Admin: 06/08/25 00:17 Dose: 900 mg Magnesium Hydroxide (Milk Of Magnesia 30 Ml Oral.Susp) 30 ml PO DAILY PRN PRN Reason: Constipation Methimazole (Methimazole 10 Mg Tablet) 10 mg PO DAILY [facility] Last Admin: 06/08/25 09:44 Dose: 10 mg Nicotine (Nicotine 21 Mg Patch.Td24) 21 mg TRANSDERMA DAILY PRN PRN Reason: nicotine cravings Last Admin: 04/12/25 17:06 Dose: 21 mg Nicotine Polacrilex (Nicotine Polacrilex Lozenge 2 Mg Lozenge) 2 mg BUCCAL Q1H PRN PRN Reason: Nicotine Cravings Last Admin: 04/30/25 08:49 Dose: 2 mg Patient Own Medication Excedrin 250/250/65mg 2 each PO Q8H PRN PRN Reason: Migraine Headache Last Admin: 04/18/25 18:03 Dose: 2 each Olanzapine (Olanzapine 10 Mg Vial) 10 mg IM BID PRN PRN Reason: refusal of PO, per maria luz's ord Last Admin: 04/11/25 09:56 Dose: 10 mg Olanzapine (Olanzapine Odt 10 Mg Tab.Rapdis) 20 mg TRANSLINGU DAILY@0 [facility] Last Admin: 06/08/25 00:17 Dose: 20 mg Quetiapine Fumarate (Quetiapine Fumarate 200 Mg Tablet) 200 mg PO BEDTIME PRN PRN Reason: insomnia Last Admin: 04/16/25 04:21 Dose: 200 mg Allergies Allergies Allergy/AdvReac Type Severity Reaction Status Date / Time No Known Allergies Allergy Verified 03/26/25 14:24 Assessment & Plan Assessment & Plan (1) Graves disease: Status: Acute Code(s): E05.00 - Thyrotoxicosis with diffuse goiter without thyrotoxic crisis or storm Assessment and Plan: Hyperthyroidism/Graves disease. He will need follow up with endocrinology as an outpatient He will also need a primary care doctor referral as an outpatient Discussed with Dr. Bejarano, patient will need free T4 weekly Decrease Methimazole to 15 mgs daily for three days and then 10 mgs daily- discussed with patient he is aware of plan and rationale. TSH and free T4 every 4 weeks. No need to draw thyroid stimulation immunology or TSH receptor AB (2) Dental abscess: Status: Acute Code(s): K04.7 - Periapical abscess without sinus Assessment and Plan: Carious tooth/dental infection Recently treated with PEN VK 500 mg q.6 hours for 7 days Patient will need follow up with dentist on discharge for tooth extraction Motrin helping pain. (3) Becca: Status: Acute Code(s): F30.9 - Manic episode, unspecified Plan 03/26: offer lithium and seroquel for becca. continue methimazole and beta joanne for hyperthyroidism as started at [facility]. trend TFTs. 12b. 03/27: taking methimazole and beta joanne. refused HS meds last night, took morning meds today. continue to encourage medication compliance. 03/28: intermittently taking meds. wants all meds in morning. pressured, manic, paranoid delusions. encouraged to take lithium but states he will not. all meds ordered for morning. 03/29: Keeping to self. no groups. observed laying in bed listening to music on unit headphones. pleasant. Pt reports feeling good today and sleeping well. declined lithium and zyprexa. denies SI/HI/VH/AH. continue current tx plan. 03/30:Irritable. upset he was unable to use his personal hygiene products. Per nursing, pt threatened staff and squeezed tooth paste throughout unit hallway to show his frustration. Pt was able to calm down after speaking with security. declined medications. 03/31: Keeping to self. laying in bed listening to music. refused medications. calm today. Patient reports feeling great ; pt stated, nothing is wrong with me. I'm waiting so I can leave tomorrow. I'm hoping for the best . denies SI/HI/VH/AH. per nursing, slept 6 hours. Continue current tx plan. 04/01: variably calm on the unit versus highly agitated. paranoid delusions, irritability, lability continue. seems to believe MD has met him prior to the present hospitalization and is stalking him. believes brother behind conspiracy to have him psychiatrically hospitalized. has been refusing all medications, including for hyperthyroidism. informed he would be filed on. filed. continue to offer medications. 04/02: continues agitated, belittling, verbally aggressive, refusing all medications including for hyperthyroidism. continue to offer medication. 04/03: paranoid there is a conspiracy to hospitalize him. threatening to stick a stick in staff once he is released by tax auditor. insists his hyperthyroidism was cured at [facility]. asserts there is NOTHING wrong with him. continue to offer medication. 04/04: irritable, rejecting. verbally abuses MD and sends him away: see you on monday [in court]. continue to offer medication for thyroid condition and mental illness. 04/05 continue tx. suspicious and guarded, accusatory, verbal threats to hurt staff and peers 04/06 intrusive, posturing towards staff and peer who he thinks is not real and is an impostor, continues to make verbal threats to harm him but thinks that because he is not real he may not experience any pain. 04/07: threatening statements and behaviors of yesterday noted. pt sleeping this morning, dismissive of MD. 04/08: asleep days. committed and meds ordered by court. 04/09: on being informed of court order and MD insisting on meds, pt escalated to hurling food item in container against wall at high speed and saying he wished he could do the same to MD's head. pt eventually took court ordered meds PO. sensodyne and excedrin not available in pharmacy (pt requesting them). 04/10: continue tx. Pt accepting medication today. 04/11: Keeping to self. Lying in bed most of morning. Declined to meet with T/W. Pt stated, I'm fine. I don't need anything . Listening to headphones in room. Declined court ordered PO medications; received IM medications. Refused vital signs.continue tx plan. 04/12: got IMs yesterday, took PO this morning. sleepy, no concerns or complaints. 04/13: taking PO meds again. slept 7 hours. sleepy again mid morning refusing interview. continue current mgmt. 04/14: sleeping, rousable. denies being sedated or tired, says he's just bored. no questions or complaints. informed of need to check labs. check lithium level and thyroid labs tonight. 04/15: refusing labs. delusional re his brother harming him. verbally abusive toward MD. spat in floor. happy with improvement in proptosis. 04/16: Lying in bed. Calm. cooperative. guarded. Pt reports feeling tired this morning d/t poor sleep last night. Pt stated, I don't need anything. I didn't sleep well so I'm trying to catch up . denies any issues at this time. denies SI/HI/VH/AH. Continue current tx plan. 04/17: more calm today, less explosive. continue current mgmt. 04/18: continues more calm. tolerating moments of frustration without verbally attacking MD. slept only 2 hours overnight, however. continue current mgmt. 04/19 continues to push boundaries and limits with staff mike around cell phone- 04/20 - aggressive with staff and unpredictable- threw water pitcher at staff behind desk/-when seen by provider passive in bed-denying all compaints/sys- no insight 04/21: appears as per last week. more difficult behaviors around cell phone use, did throw pitcher of water at RN monday over phone use and was restrained. continue current mgmt. 04/22: continues to have conflict around cell phone use. consolidate zyprexa at HS to decrease daytime sedation. 1:1 allegra shift until peer he is accusing of not being a real patient and appears to be targeting discharges tomorrow. 04/23: lithium 0.6 on 600 BID. sleeping better, remains delusional (telling SW who is marginally younger than him that she could be his daughter). just changed zyprexa dosing as of last night. continue current regimen and observe for continued stabilization. T/C slight increase in lithium dosing. 04/24: Laying in bed. guarded. calm. did not want to get out of bed to meet with T/W. Pt reports feeling great today but declined to go into detail. listening to music on unit headphones. Pt stated, I'm fine. I don't need anything . denies any issues at this time. denies SI/HI/VH/AH. Continue current tx plan. 04/25: Laying in bed. keeping to self. calm. paranoid. Discussed incident that occurred with staff last evening. Pt stated, the counselor made up a lie yesterday. I said she looks like my ex-girlfriend. I know they are related. They want to make up a lie to irritate me. They are trying to talk to me so they can use recording devices and make me look some kind of way . listening to music on unit headphones. denies SI/HI/VH/AH. Continue current tx plan. 04/26: Continue current regimen and plans. Increase Zyprexa 20 mg q.h.s. fresh air break withheld 04/27: Continue current regimen and plans 04/28: somewhat less irritable and agitated than last week. however, over the weekend was claiming he was the father of a footballer on TV and also that a staff member is a twin of his ex-GF (and he pushed staff member). TFTs improving. continue current mgmt. 04/29: no change in presentation. continue current mgmt. 04/30: no irritable edge today. calm, pleasant. engaging in small talk. reality testing not pressed. continue current mgmt for now. 05/01: no change in presentation. continue current mgmt. 05/02: BPs coming down, DC beta joanne as pt has been refusing anyway. remains not antagonistic toward MD. using phone appropriately. continue current mgmt otherwise. 05/03 continue 05/04: remains delusional, irritable/labile when delusional system confronted. declines to sign TOMMY for [facility] records. continue current mgmt. 05/06: declining to meet with MD, but does meet with medical student. remains upset about yesterday's confrontation re his delusional system. 05/07: Active on unit. keeping to self. pacing unit hallway while listening to unit headphones. medication compliant. patient reports feeling good ; pt stated, I'm just waiting to leave here. I want to return to my life and do things like go grocery shopping . denies SI/HI/VH/AH. Continue current tx plan. 05/08: stable presentation, delusions not being brought to the surface daily. remains affectively improved from admission. continue current mgmt. 05/09: calm, pleasant. no questions or complaints. continue current mgmt. 05/10: no change in presentation. due to lack of improvement in dental infection Sx, DC PCN and start augmentin. 05/11: no change in presentation. continue current mgmt. 05/12: as for yesterday. dental pain improving a bit. 05/13: expressed to medical student that his brother poisoned him, causing his thyroid disease. no change in presentation. continue current mgmt. 05/14: Pacing unit hallway. keeping to self. patient reports feeling good today; denies any issues at this time. denies SI/HI/VH/AH. per nursing, slept 5 hours. Continue current tx plan. 05/15: slept 6 hours. otherwise isolative, difficult to engage. continue current mgmt. 05/16: slept 7 hours. as for yesterday otherwise. 05/17/25: Slept well, no issue with appetite, skinny and pretty tall. Compliant with medication. No side effects Calm and pleasant upon approach. Some what paranoid. Tangential, however denies other safety concerns. Questions if he is discharging soon. He is on antibiotic for 7 days for mouth pain/tooth pain. We will finish the 7 course up in antibiotic after tonight dose. Then discontinue. 05/18/25: Slept for 5 hours plus hours this morning. In bed most of the shift, no behavior issues. Denies other safety concerns. 05/19: in bed days, up eves. no change in presentation. continue current mgmt. 05/20: no change in presentation. check labs. 05/21: lithium low, TFTs mixed and not all back. increase lithium from 600 BID to 600/900. trend BUN/Cr, with slight elevation. otherwise continue current mgmt. 05/22: no change in presentation. continue current mgmt. 05/23: does not deny someone stole his sperm and impregnated his landlord's child with it. irritable. c/o dental pain, antibx restarted. otherwise continue current mgmt. 05/14: no change in mgt 05/25: more isolative today; no change in mgt 05/26: decreases in methimazole noted. continue psych regimen as is. pt refused to interact with MD today. 05/27: i'm sleeping. no change in presentation. labs tonight. 05/28: no change in behavior. lithium 0.66, BUN stable. continue current mgmt. 05/29: irritable. continue current mgmt. 05/30: no longer in single room. still not engaging, sleeping days. continue current mgmt. 05/31:laying in bed. declined to meet with T/W. pt stated, I want to sleep. I didn't sleep enough . Pt encouraged to reach out to staff if he needs anything. Continue current tx plan. 06/01: Similar to yesterday. laying in bed. Irritable. declined to meet with T/W and pulled bed sheets over head. pt stated, I don't want to talk. I want to sleep . difficult to engage. Continue current tx plan. 06/02: Similar to yesterday. laying in bed. Irritable. declined to meet with T/W. Observed getting drink from kitchen; T/W approached pt and asked if they could speak. patient declined to acknowledge T/W and walked past. Continue current tx plan. 06/03: no change in behavior. continue tx plan. 06/04/25: Passive engaged in the assessment, in bed mostly sleeping this morning which could be interfere with his nighttime. Cover body under the blanket Slept for 4-5 hours last night. Was medication compliant, attended no groups, isolative to self in room. No SI/SIB/HI/AVH expressed. 06/05: continue tx plan. 06/06: reports feeling fine ; continues guarded. difficult to engage. declining to meet with T/W. continue tx plan. 06/07/25: Slept for 4 hours at night, but has been sleeping most of the day yesterday as well. Spent majority of the shift in bed, was medication compliant. Passive engaged in the conversation. He said he will try to change the sleeping pattern so that he can be awake more during the daytime. Appear to be sedated in the morning. No safety behavior. 06/08/25: Slept for 3-4 hours last night, compliant with medications. Denies side effects, denies other safety concerns. Continued to encourage patient to up and down more than on the unit he spent most of the day sleeping. He is pleasant upon approach. No other behavior issues. Denied voices/hallucinations. Suicide thoughts or homicidal thoughts. Patient educated on: diagnosis and medication risk/benefits Informed Consent: further education needed Reason for continued inpatient stay Substantial Risk for: med/psych decompensation Time Spent With Patient Time: Total time managing care of this patient today ____ minutes.
--- NOTE | 2025-06-08 22:13 | PC.NURSE ---
antibiotic-refusing to take as scheduled, insisting on taking at midnight.
[2025-06-09] MEDS: OLANZapine ODT 10 MG TAB.RAPDIS 20 MG TRANSLINGU (00:04)
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
[2025-06-09 20:00] VITALS: BP 141/83; PULSE 92; RESP 16; TEMP 36.9; O2SAT 100
[2025-06-10] MEDS: OLANZapine ODT 10 MG TAB.RAPDIS 20 MG TRANSLINGU (00:03)
--- NOTE | 2025-06-10 14:10 | HO.PSYCHPN ---
Subjective Subjective Date of Service: 06/10/25 Reason For Visit: psychotic disorder Interim History: sleeping, minimally rousable. dismissive. per JAMAICA Arrington: Jean said when he leaves he can return to [facility]. he was living with a lady there and can go back. He plans to get a job to pay off his debt. He said he owes money because they sent him back here due to losing his passport and he owes them money for the temporary emergency passport and the flight back to the . so his main focus is to get a job. he said he will try things here first and if it doesn't work out he plans to return to [place]. per staff, no change in presentation. sleeping days. up most of the night. Mental Status Exam Mental Status Exam Narrative: He is under blanket, in bed sleeping. Passive. not engaging in assessment. Denies safety concerns. No SI//SIB/HI/AVH expressed. Diagnostics Vital Signs (24Hr): Vital Signs - 24 hr 06/09/25 20:00 Temperature 98.5 F Pulse Rate 92 Respiratory Rate 16 Blood Pressure 141/83 H Pulse Oximetry 100 Oxygen Delivery Method Room Air BMI result Body Mass Index 24.0 Labs 03/27/25 09:44 05/27/25 22:58 Medications Medications Current Medications Acetaminophen (Acetaminophen 325 Mg Tablet) 650 mg PO Q6H PRN PRN Reason: Headache/Pain, Scale 1-10 Last Admin: 04/01/25 23:20 Dose: 650 mg Al Hydroxide/Mg Hydroxide (Magnesium Hydrox/Alum Hydrox 30 Ml Oral.Susp) 30 ml PO Q6H PRN PRN Reason: Heartburn/Nausea Amoxicillin/Clavulanate Potassium (Amoxicillin/Potassium Clav 875 Mg Tablet) 875 mg PO BID [facility] Last Admin: 06/10/25 08:53 Dose: 875 mg Benzocaine (Benzocaine 20 % Oral Gel 14 Gm Tube) 1 appl MUCOUS MEM QID PRN; Protocol PRN Reason: Mouth Sore Pain Last Admin: 04/26/25 18:33 Dose: 1 appl Diazepam (Diazepam 10 Mg/2 Ml Cartridge) 10 mg IM BID PRN PRN Reason: refusal of lithium, per everett Last Admin: 04/11/25 09:56 Dose: 10 mg Haloperidol (Haloperidol 5 Mg Tablet) 5 mg PO Q4H PRN PRN Reason: agitation Hydroxyzine HCl (Hydroxyzine Hcl 25 Mg Tablet) 25 mg PO Q6H PRN PRN Reason: mild anxiety Ibuprofen (Ibuprofen 800 Mg Tablet) 800 mg PO Q6H PRN PRN Reason: pain (pain scale 1-10) Last Admin: 06/05/25 04:03 Dose: 800 mg [place] Carbonate (S[place] Carbonate Er 300 Mg Tablet.Er) 600 mg PO DAILY [facility] Last Admin: 06/10/25 08:53 Dose: 600 mg [place] Carbonate ([place] Carbonate Er 450 Mg Tablet.Er) 900 mg PO DAILY@0 [facility] Last Admin: 06/10/25 00:04 Dose: 900 mg Magnesium Hydroxide (Milk Of Magnesia 30 Ml Oral.Susp) 30 ml PO DAILY PRN PRN Reason: Constipation Methimazole (Methimazole 10 Mg Tablet) 10 mg PO DAILY [facility] Last Admin: 06/10/25 08:53 Dose: 10 mg Nicotine (Nicotine 21 Mg Patch.Td24) 21 mg TRANSDERMA DAILY PRN PRN Reason: nicotine cravings Last Admin: 04/12/25 17:06 Dose: 21 mg Nicotine Polacrilex (Nicotine Polacrilex Lozenge 2 Mg Lozenge) 2 mg BUCCAL Q1H PRN PRN Reason: Nicotine Cravings Last Admin: 04/30/25 08:49 Dose: 2 mg Patient Own Medication Excedrin 250/250/65mg 2 each PO Q8H PRN PRN Reason: Migraine Headache Last Admin: 04/18/25 18:03 Dose: 2 each Olanzapine (Olanzapine 10 Mg Vial) 10 mg IM BID PRN PRN Reason: refusal of PO, per maria luz's ord Last Admin: 04/11/25 09:56 Dose: 10 mg Olanzapine (Olanzapine Odt 10 Mg Tab.Rapdis) 20 mg TRANSLINGU DAILY@2299 [facility] Last Admin: 06/10/25 00:03 Dose: 20 mg Quetiapine Fumarate (Quetiapine Fumarate 200 Mg Tablet) 200 mg PO BEDTIME PRN PRN Reason: insomnia Last Admin: 04/16/25 04:21 Dose: 200 mg Allergies Allergies Allergy/AdvReac Type Severity Reaction Status Date / Time No Known Allergies Allergy Verified 03/26/25 14:24 Assessment & Plan Assessment & Plan (1) Graves disease: Status: Acute Code(s): E05.00 - Thyrotoxicosis with diffuse goiter without thyrotoxic crisis or storm Assessment and Plan: Hyperthyroidism/Graves disease. He will need follow up with endocrinology as an outpatient He will also need a primary care doctor referral as an outpatient Discussed with Dr. Bejarano, patient will need free T4 weekly Decrease Methimazole to 15 mgs daily for three days and then 10 mgs daily- discussed with patient he is aware of plan and rationale. TSH and free T4 every 4 weeks. No need to draw thyroid stimulation immunology or TSH receptor AB (2) Dental abscess: Status: Acute Code(s): K04.7 - Periapical abscess without sinus Assessment and Plan: Carious tooth/dental infection Recently treated with PEN VK 500 mg q.6 hours for 7 days Patient will need follow up with dentist on discharge for tooth extraction Motrin helping pain. (3) Becca: Status: Acute Code(s): F30.9 - Manic episode, unspecified Plan 03/26: offer lithium and seroquel for becca. continue methimazole and beta joanne for hyperthyroidism as started at [facility]. trend TFTs. 12b. 03/27: taking methimazole and beta joanne. refused HS meds last night, took morning meds today. continue to encourage medication compliance. 03/28: intermittently taking meds. wants all meds in morning. pressured, manic, paranoid delusions. encouraged to take lithium but states he will not. all meds ordered for morning. 03/29: Keeping to self. no groups. observed laying in bed listening to music on unit headphones. pleasant. Pt reports feeling good today and sleeping well. declined lithium and zyprexa. denies SI/HI/VH/AH. continue current tx plan. 03/30:Irritable. upset he was unable to use his personal hygiene products. Per nursing, pt threatened staff and squeezed tooth paste throughout unit hallway to show his frustration. Pt was able to calm down after speaking with security. declined medications. 03/31: Keeping to self. laying in bed listening to music. refused medications. calm today. Patient reports feeling great ; pt stated, nothing is wrong with me. I'm waiting so I can leave tomorrow. I'm hoping for the best . denies SI/HI/VH/AH. per nursing, slept 6 hours. Continue current tx plan. 04/01: variably calm on the unit versus highly agitated. paranoid delusions, irritability, lability continue. seems to believe MD has met him prior to the present hospitalization and is stalking him. believes brother behind conspiracy to have him psychiatrically hospitalized. has been refusing all medications, including for hyperthyroidism. informed he would be filed on. filed. continue to offer medications. 04/02: continues agitated, belittling, verbally aggressive, refusing all medications including for hyperthyroidism. continue to offer medication. 04/03: paranoid there is a conspiracy to hospitalize him. threatening to stick a stick in staff once he is released by cooler worker. insists his hyperthyroidism was cured at [facility]. asserts there is NOTHING wrong with him. continue to offer medication. 04/04: irritable, rejecting. verbally abuses MD and sends him away: see you on monday [in court]. continue to offer medication for thyroid condition and mental illness. 04/05 continue tx. suspicious and guarded, accusatory, verbal threats to hurt staff and peers 04/06 intrusive, posturing towards staff and peer who he thinks is not real and is an impostor, continues to make verbal threats to harm him but thinks that because he is not real he may not experience any pain. 04/07: threatening statements and behaviors of yesterday noted. pt sleeping this morning, dismissive of MD. 04/08: asleep days. committed and meds ordered by court. 04/09: on being informed of court order and MD insisting on meds, pt escalated to hurling food item in container against wall at high speed and saying he wished he could do the same to MD's head. pt eventually took court ordered meds PO. sensodyne and excedrin not available in pharmacy (pt requesting them). 04/10: continue tx. Pt accepting medication today. 04/11: Keeping to self. Lying in bed most of morning. Declined to meet with T/W. Pt stated, I'm fine. I don't need anything . Listening to headphones in room. Declined court ordered PO medications; received IM medications. Refused vital signs.continue tx plan. 04/12: got IMs yesterday, took PO this morning. sleepy, no concerns or complaints. 04/13: taking PO meds again. slept 7 hours. sleepy again mid morning refusing interview. continue current mgmt. 04/14: sleeping, rousable. denies being sedated or tired, says he's just bored. no questions or complaints. informed of need to check labs. check lithium level and thyroid labs tonight. 04/15: refusing labs. delusional re his brother harming him. verbally abusive toward MD. spat in floor. happy with improvement in proptosis. 04/16: Lying in bed. Calm. cooperative. guarded. Pt reports feeling tired this morning d/t poor sleep last night. Pt stated, I don't need anything. I didn't sleep well so I'm trying to catch up . denies any issues at this time. denies SI/HI/VH/AH. Continue current tx plan. 04/17: more calm today, less explosive. continue current mgmt. 04/18: continues more calm. tolerating moments of frustration without verbally attacking MD. slept only 2 hours overnight, however. continue current mgmt. 04/19 continues to push boundaries and limits with staff mike around cell phone- 04/20 - aggressive with staff and unpredictable- threw water pitcher at staff behind desk/-when seen by provider passive in bed-denying all compaints/sys- no insight 04/21: appears as per last week. more difficult behaviors around cell phone use, did throw pitcher of water at RN monday over phone use and was restrained. continue current mgmt. 04/22: continues to have conflict around cell phone use. consolidate zyprexa at HS to decrease daytime sedation. 1:1 allegra shift until peer he is accusing of not being a real patient and appears to be targeting discharges tomorrow. 04/23: lithium 0.6 on 600 BID. sleeping better, remains delusional (telling SW who is marginally younger than him that she could be his daughter). just changed zyprexa dosing as of last night. continue current regimen and observe for continued stabilization. T/C slight increase in lithium dosing. 04/24: Laying in bed. guarded. calm. did not want to get out of bed to meet with T/W. Pt reports feeling great today but declined to go into detail. listening to music on unit headphones. Pt stated, I'm fine. I don't need anything . denies any issues at this time. denies SI/HI/VH/AH. Continue current tx plan. 04/25: Laying in bed. keeping to self. calm. paranoid. Discussed incident that occurred with staff last evening. Pt stated, the counselor made up a lie yesterday. I said she looks like my ex-girlfriend. I know they are related. They want to make up a lie to irritate me. They are trying to talk to me so they can use recording devices and make me look some kind of way . listening to music on unit headphones. denies SI/HI/VH/AH. Continue current tx plan. 04/26: Continue current regimen and plans. Increase Zyprexa 20 mg q.h.s. fresh air break withheld 04/27: Continue current regimen and plans 04/28: somewhat less irritable and agitated than last week. however, over the weekend was claiming he was the father of a footballer on TV and also that a staff member is a twin of his ex-GF (and he pushed staff member). TFTs improving. continue current mgmt. 04/29: no change in presentation. continue current mgmt. 04/30: no irritable edge today. calm, pleasant. engaging in small talk. reality testing not pressed. continue current mgmt for now. 05/01: no change in presentation. continue current mgmt. 05/02: BPs coming down, DC beta joanne as pt has been refusing anyway. remains not antagonistic toward MD. using phone appropriately. continue current mgmt otherwise. 05/03 continue 05/04: remains delusional, irritable/labile when delusional system confronted. declines to sign TOMMY for [facility] records. continue current mgmt. 05/06: declining to meet with MD, but does meet with medical student. remains upset about yesterday's confrontation re his delusional system. 05/07: Active on unit. keeping to self. pacing unit hallway while listening to unit headphones. medication compliant. patient reports feeling good ; pt stated, I'm just waiting to leave here. I want to return to my life and do things like go grocery shopping . denies SI/HI/VH/AH. Continue current tx plan. 05/08: stable presentation, delusions not being brought to the surface daily. remains affectively improved from admission. continue current mgmt. 05/09: calm, pleasant. no questions or complaints. continue current mgmt. 05/10: no change in presentation. due to lack of improvement in dental infection Sx, DC PCN and start augmentin. 05/11: no change in presentation. continue current mgmt. 05/12: as for yesterday. dental pain improving a bit. 05/13: expressed to medical student that his brother poisoned him, causing his thyroid disease. no change in presentation. continue current mgmt. 05/14: Pacing unit hallway. keeping to self. patient reports feeling good today; denies any issues at this time. denies SI/HI/VH/AH. per nursing, slept 5 hours. Continue current tx plan. 05/15: slept 6 hours. otherwise isolative, difficult to engage. continue current mgmt. 05/16: slept 7 hours. as for yesterday otherwise. 05/17/25: Slept well, no issue with appetite, skinny and pretty tall. Compliant with medication. No side effects Calm and pleasant upon approach. Some what paranoid. Tangential, however denies other safety concerns. Questions if he is discharging soon. He is on antibiotic for 7 days for mouth pain/tooth pain. We will finish the 7 course up in antibiotic after tonight dose. Then discontinue. 05/18/25: Slept for 5 hours plus hours this morning. In bed most of the shift, no behavior issues. Denies other safety concerns. 05/19: in bed days, up eves. no change in presentation. continue current mgmt. 05/20: no change in presentation. check labs. 05/21: lithium low, TFTs mixed and not all back. increase lithium from 600 BID to 600/900. trend BUN/Cr, with slight elevation. otherwise continue current mgmt. 05/22: no change in presentation. continue current mgmt. 05/23: does not deny someone stole his sperm and impregnated his landlord's child with it. irritable. c/o dental pain, antibx restarted. otherwise continue current mgmt. 05/14: no change in mgt 05/25: more isolative today; no change in mgt 05/26: decreases in methimazole noted. continue psych regimen as is. pt refused to interact with MD today. 05/27: i'm sleeping. no change in presentation. labs tonight. 05/28: no change in behavior. lithium 0.66, BUN stable. continue current mgmt. 05/29: irritable. continue current mgmt. 05/30: no longer in single room. still not engaging, sleeping days. continue current mgmt. 05/31:laying in bed. declined to meet with T/W. pt stated, I want to sleep. I didn't sleep enough . Pt encouraged to reach out to staff if he needs anything. Continue current tx plan. 06/01: Similar to yesterday. laying in bed. Irritable. declined to meet with T/W and pulled bed sheets over head. pt stated, I don't want to talk. I want to sleep . difficult to engage. Continue current tx plan. 06/02: Similar to yesterday. laying in bed. Irritable. declined to meet with T/W. Observed getting drink from kitchen; T/W approached pt and asked if they could speak. patient declined to acknowledge T/W and walked past. Continue current tx plan. 06/03: no change in behavior. continue tx plan. 06/04/25: Passive engaged in the assessment, in bed mostly sleeping this morning which could be interfere with his nighttime. Cover body under the blanket Slept for 4-5 hours last night. Was medication compliant, attended no groups, isolative to self in room. No SI/SIB/HI/AVH expressed. 06/05: continue tx plan. 06/06: reports feeling fine ; continues guarded. difficult to engage. declining to meet with T/W. continue tx plan. 06/07/25: Slept for 4 hours at night, but has been sleeping most of the day yesterday as well. Spent majority of the shift in bed, was medication compliant. Passive engaged in the conversation. He said he will try to change the sleeping pattern so that he can be awake more during the daytime. Appear to be sedated in the morning. No safety behavior. 06/08/25: Slept for 3-4 hours last night, compliant with medications. Denies side effects, denies other safety concerns. Continued to encourage patient to up and down more than on the unit he spent most of the day sleeping. He is pleasant upon approach. No other behavior issues. Denied voices/hallucinations. Suicide thoughts or homicidal thoughts. 06/09: sleeping, minimally rousable. denies problems. continue current mgmt. 06/10: sleeping all day, up most of the night. minimally rousable. denies problems. continue current mgmt. per JAMAICA Arrington: Jean said when he leaves he can return to [facility]. he was living with a lady there and can go back. He plans to get a job to pay off his debt. He said he owes money because they sent him back here due to losing his passport and he owes them money for the temporary emergency passport and the flight back to the . so his main focus is to get a job. he said he will try things here first and if it doesn't work out he plans to return to [place]. Reason for continued inpatient stay Substantial Risk for: inability to function, rapid decompensation and med/psych decompensation Time Spent With Patient Time: Total time managing care of this patient today ____ minutes.
[2025-06-10 20:52] VITALS: BP 125/69; PULSE 89; RESP 16; TEMP 36.9; O2SAT 98
[2025-06-11] MEDS: OLANZapine ODT 10 MG TAB.RAPDIS 20 MG TRANSLINGU (00:18)
--- NOTE | 2025-06-11 17:03 | HO.PSYCHPN ---
Subjective Subjective Date of Service: 06/11/25 Reason For Visit: psychotic disorder Subjective Notes: [place] Order and Section 8 Healthcare Proxy: No Guardianship: No Medical Problems Affecting Mental Status: No Interim History: Medical record and nursing notes reviewed; case discussed during rounds with team/nursing staff, and met with patient for supportive therapy/psychoeducation, as well as medication management. Patient slept up to 5 hours last night, was medication compliant, denies safety concerns. Denies side effects. Denies physicals problems. Encourage patient to slept last during the day and more visible. Observe him on the unit sometimes in the afternoon, but spent most of the day in his bed. Medication Compliance: Yes Side effects from medications: No Attending Groups: No Review of Systems Acute medical concerns: No Medical Review of Systems: unchanged Review of Systems Review of Systems Yes all other systems are reviewed and are negative Mental Status Exam Mental Status Exam Narrative: He is under blanket, in bed sleeping. Arousable during one-to-one assessment. Passively engaging in assessment with eyes closed, face turn the war, but recognized this provider's voice. Denies safety concerns. Denies SI//SIB/HI/AVH. Diagnostics Vital Signs (24Hr): Vital Signs - 24 hr 06/10/25 20:52 Temperature 98.5 F Pulse Rate 89 Respiratory Rate 16 Blood Pressure 125/69 Pulse Oximetry 98 Oxygen Delivery Method Room Air BMI result Body Mass Index 24.0 Labs 03/27/25 09:44 05/27/25 22:58 Medications Medications Current Medications Acetaminophen (Acetaminophen 325 Mg Tablet) 650 mg PO Q6H PRN PRN Reason: Headache/Pain, Scale 1-10 Last Admin: 04/01/25 23:20 Dose: 650 mg Al Hydroxide/Mg Hydroxide (Magnesium Hydrox/Alum Hydrox 30 Ml Oral.Susp) 30 ml PO Q6H PRN PRN Reason: Heartburn/Nausea Amoxicillin/Clavulanate Potassium (Amoxicillin/Potassium Clav 875 Mg Tablet) 875 mg PO BID KRISTAL Last Admin: 06/11/25 10:02 Dose: 875 mg Benzocaine (Benzocaine 20 % Oral Gel 14 Gm Tube) 1 appl MUCOUS MEM QID PRN; Protocol PRN Reason: Mouth Sore Pain Last Admin: 04/26/25 18:33 Dose: 1 appl Diazepam (Diazepam 10 Mg/2 Ml Cartridge) 10 mg IM BID PRN PRN Reason: refusal of lithium, per everett Last Admin: 04/11/25 09:56 Dose: 10 mg Haloperidol (Haloperidol 5 Mg Tablet) 5 mg PO Q4H PRN PRN Reason: agitation Hydroxyzine HCl (Hydroxyzine Hcl 25 Mg Tablet) 25 mg PO Q6H PRN PRN Reason: mild anxiety Ibuprofen (Ibuprofen 800 Mg Tablet) 800 mg PO Q6H PRN PRN Reason: pain (pain scale 1-10) Last Admin: 06/05/25 04:03 Dose: 800 mg Whitlash Carbonate (Whitlash Carbonate Er 300 Mg Tablet.Er) 600 mg PO DAILY [facility] Last Admin: 06/11/25 10:02 Dose: 600 mg Whitlash Carbonate (Whitlash Carbonate Er 450 Mg Tablet.Er) 900 mg PO DAILY@2300 [facility] Last Admin: 06/11/25 00:18 Dose: 900 mg Magnesium Hydroxide (Milk Of Magnesia 30 Ml Oral.Susp) 30 ml PO DAILY PRN PRN Reason: Constipation Methimazole (Methimazole 10 Mg Tablet) 10 mg PO DAILY [facility] Last Admin: 06/11/25 10:03 Dose: 10 mg Nicotine (Nicotine 21 Mg Patch.Td24) 21 mg TRANSDERMA DAILY PRN PRN Reason: nicotine cravings Last Admin: 04/12/25 17:06 Dose: 21 mg Nicotine Polacrilex (Nicotine Polacrilex Lozenge 2 Mg Lozenge) 2 mg BUCCAL Q1H PRN PRN Reason: Nicotine Cravings Last Admin: 04/30/25 08:49 Dose: 2 mg Patient Own Medication Excedrin 250/250/65mg 2 each PO Q8H PRN PRN Reason: Migraine Headache Last Admin: 04/18/25 18:03 Dose: 2 each Olanzapine (Olanzapine 10 Mg Vial) 10 mg IM BID PRN PRN Reason: refusal of PO, per maria luz's ord Last Admin: 04/11/25 09:56 Dose: 10 mg Olanzapine (Olanzapine Odt 10 Mg Tab.Rapdis) 20 mg TRANSLINGU DAILY@2300 [facility] Last Admin: 06/11/25 00:18 Dose: 20 mg Quetiapine Fumarate (Quetiapine Fumarate 200 Mg Tablet) 200 mg PO BEDTIME PRN PRN Reason: insomnia Last Admin: 04/16/25 04:21 Dose: 200 mg Allergies Allergies Allergy/AdvReac Type Severity Reaction Status Date / Time No Known Allergies Allergy Verified 03/26/25 14:24 Assessment & Plan Assessment & Plan (1) Graves disease: Status: Acute Code(s): E05.00 - Thyrotoxicosis with diffuse goiter without thyrotoxic crisis or storm Assessment and Plan: Hyperthyroidism/Graves disease. He will need follow up with endocrinology as an outpatient He will also need a primary care doctor referral as an outpatient Discussed with Dr. Bejarano, patient will need free T4 weekly Decrease Methimazole to 15 mgs daily for three days and then 10 mgs daily- discussed with patient he is aware of plan and rationale. TSH and free T4 every 4 weeks. No need to draw thyroid stimulation immunology or TSH receptor AB (2) Dental abscess: Status: Acute Code(s): K04.7 - Periapical abscess without sinus Assessment and Plan: Carious tooth/dental infection Recently treated with PEN VK 500 mg q.6 hours for 7 days Patient will need follow up with dentist on discharge for tooth extraction Motrin helping pain. (3) Becca: Status: Acute Code(s): F30.9 - Manic episode, unspecified Plan 03/26: offer lithium and seroquel for becca. continue methimazole and beta joanne for hyperthyroidism as started at [facility]. trend TFTs. 12b. 03/27: taking methimazole and beta joanne. refused HS meds last night, took morning meds today. continue to encourage medication compliance. 03/28: intermittently taking meds. wants all meds in morning. pressured, manic, paranoid delusions. encouraged to take lithium but states he will not. all meds ordered for morning. 03/29: Keeping to self. no groups. observed laying in bed listening to music on unit headphones. pleasant. Pt reports feeling good today and sleeping well. declined lithium and zyprexa. denies SI/HI/VH/AH. continue current tx plan. 03/30:Irritable. upset he was unable to use his personal hygiene products. Per nursing, pt threatened staff and squeezed tooth paste throughout unit hallway to show his frustration. Pt was able to calm down after speaking with security. declined medications. 03/31: Keeping to self. laying in bed listening to music. refused medications. calm today. Patient reports feeling great ; pt stated, nothing is wrong with me. I'm waiting so I can leave tomorrow. I'm hoping for the best . denies SI/HI/VH/AH. per nursing, slept 6 hours. Continue current tx plan. 04/01: variably calm on the unit versus highly agitated. paranoid delusions, irritability, lability continue. seems to believe MD has met him prior to the present hospitalization and is stalking him. believes brother behind conspiracy to have him psychiatrically hospitalized. has been refusing all medications, including for hyperthyroidism. informed he would be filed on. filed. continue to offer medications. 04/02: continues agitated, belittling, verbally aggressive, refusing all medications including for hyperthyroidism. continue to offer medication. 04/03: paranoid there is a conspiracy to hospitalize him. threatening to stick a stick in staff once he is released by [facility]. insists his hyperthyroidism was cured at [facility]. asserts there is NOTHING wrong with him. continue to offer medication. 04/04: irritable, rejecting. verbally abuses MD and sends him away: see you on monday [in court]. continue to offer medication for thyroid condition and mental illness. 04/05 continue tx. suspicious and guarded, accusatory, verbal threats to hurt staff and peers 04/06 intrusive, posturing towards staff and peer who he thinks is not real and is an impostor, continues to make verbal threats to harm him but thinks that because he is not real he may not experience any pain. 04/07: threatening statements and behaviors of yesterday noted. pt sleeping this morning, dismissive of MD. 04/08: asleep days. committed and meds ordered by court. 04/09: on being informed of court order and MD insisting on meds, pt escalated to hurling food item in container against wall at high speed and saying he wished he could do the same to MD's head. pt eventually took court ordered meds PO. sensodyne and excedrin not available in pharmacy (pt requesting them). 04/10: continue tx. Pt accepting medication today. 04/11: Keeping to self. Lying in bed most of morning. Declined to meet with T/W. Pt stated, I'm fine. I don't need anything . Listening to headphones in room. Declined court ordered PO medications; received IM medications. Refused vital signs.continue tx plan. 04/12: got IMs yesterday, took PO this morning. sleepy, no concerns or complaints. 04/13: taking PO meds again. slept 7 hours. sleepy again mid morning refusing interview. continue current mgmt. 04/14: sleeping, rousable. denies being sedated or tired, says he's just bored. no questions or complaints. informed of need to check labs. check lithium level and thyroid labs tonight. 04/15: refusing labs. delusional re his brother harming him. verbally abusive toward MD. spat in floor. happy with improvement in proptosis. 04/16: Lying in bed. Calm. cooperative. guarded. Pt reports feeling tired this morning d/t poor sleep last night. Pt stated, I don't need anything. I didn't sleep well so I'm trying to catch up . denies any issues at this time. denies SI/HI/VH/AH. Continue current tx plan. 04/17: more calm today, less explosive. continue current mgmt. 04/18: continues more calm. tolerating moments of frustration without verbally attacking MD. slept only 2 hours overnight, however. continue current mgmt. 04/19 continues to push boundaries and limits with staff mike around cell phone- 04/20 - aggressive with staff and unpredictable- threw water pitcher at staff behind desk/-when seen by provider passive in bed-denying all compaints/sys- no insight 04/21: appears as per last week. more difficult behaviors around cell phone use, did throw pitcher of water at RN monday over phone use and was restrained. continue current mgmt. 04/22: continues to have conflict around cell phone use. consolidate zyprexa at HS to decrease daytime sedation. 1:1 allegra shift until peer he is accusing of not being a real patient and appears to be targeting discharges tomorrow. 04/23: lithium 0.6 on 600 BID. sleeping better, remains delusional (telling SW who is marginally younger than him that she could be his daughter). just changed zyprexa dosing as of last night. continue current regimen and observe for continued stabilization. T/C slight increase in lithium dosing. 04/24: Laying in bed. guarded. calm. did not want to get out of bed to meet with T/W. Pt reports feeling great today but declined to go into detail. listening to music on unit headphones. Pt stated, I'm fine. I don't need anything . denies any issues at this time. denies SI/HI/VH/AH. Continue current tx plan. 04/25: Laying in bed. keeping to self. calm. paranoid. Discussed incident that occurred with staff last evening. Pt stated, the counselor made up a lie yesterday. I said she looks like my ex-girlfriend. I know they are related. They want to make up a lie to irritate me. They are trying to talk to me so they can use recording devices and make me look some kind of way . listening to music on unit headphones. denies SI/HI/VH/AH. Continue current tx plan. 04/26: Continue current regimen and plans. Increase Zyprexa 20 mg q.h.s. fresh air break withheld 04/27: Continue current regimen and plans 04/28: somewhat less irritable and agitated than last week. however, over the weekend was claiming he was the father of a footballer on TV and also that a staff member is a twin of his ex-GF (and he pushed staff member). TFTs improving. continue current mgmt. 04/29: no change in presentation. continue current mgmt. 04/30: no irritable edge today. calm, pleasant. engaging in small talk. reality testing not pressed. continue current mgmt for now. 05/01: no change in presentation. continue current mgmt. 05/02: BPs coming down, DC beta joanne as pt has been refusing anyway. remains not antagonistic toward MD. using phone appropriately. continue current mgmt otherwise. 05/03 continue 05/04: remains delusional, irritable/labile when delusional system confronted. declines to sign TOMMY for [facility] records. continue current mgmt. 05/06: declining to meet with MD, but does meet with medical student. remains upset about yesterday's confrontation re his delusional system. 05/07: Active on unit. keeping to self. pacing unit hallway while listening to unit headphones. medication compliant. patient reports feeling good ; pt stated, I'm just waiting to leave here. I want to return to my life and do things like go grocery shopping . denies SI/HI/VH/AH. Continue current tx plan. 05/08: stable presentation, delusions not being brought to the surface daily. remains affectively improved from admission. continue current mgmt. 05/09: calm, pleasant. no questions or complaints. continue current mgmt. 05/10: no change in presentation. due to lack of improvement in dental infection Sx, DC PCN and start augmentin. 05/11: no change in presentation. continue current mgmt. 05/12: as for yesterday. dental pain improving a bit. 05/13: expressed to medical student that his brother poisoned him, causing his thyroid disease. no change in presentation. continue current mgmt. 05/14: Pacing unit hallway. keeping to self. patient reports feeling good today; denies any issues at this time. denies SI/HI/VH/AH. per nursing, slept 5 hours. Continue current tx plan. 05/15: slept 6 hours. otherwise isolative, difficult to engage. continue current mgmt. 05/16: slept 7 hours. as for yesterday otherwise. 05/17/25: Slept well, no issue with appetite, skinny and pretty tall. Compliant with medication. No side effects Calm and pleasant upon approach. Some what paranoid. Tangential, however denies other safety concerns. Questions if he is discharging soon. He is on antibiotic for 7 days for mouth pain/tooth pain. We will finish the 7 course up in antibiotic after tonight dose. Then discontinue. 05/18/25: Slept for 5 hours plus hours this morning. In bed most of the shift, no behavior issues. Denies other safety concerns. 05/19: in bed days, up eves. no change in presentation. continue current mgmt. 05/20: no change in presentation. check labs. 05/21: lithium low, TFTs mixed and not all back. increase lithium from 600 BID to 600/900. trend BUN/Cr, with slight elevation. otherwise continue current mgmt. 05/22: no change in presentation. continue current mgmt. 05/23: does not deny someone stole his sperm and impregnated his landlord's child with it. irritable. c/o dental pain, antibx restarted. otherwise continue current mgmt. 05/14: no change in mgt 05/25: more isolative today; no change in mgt 05/26: decreases in methimazole noted. continue psych regimen as is. pt refused to interact with MD today. 05/27: i'm sleeping. no change in presentation. labs tonight. 05/28: no change in behavior. lithium 0.66, BUN stable. continue current mgmt. 05/29: irritable. continue current mgmt. 05/30: no longer in single room. still not engaging, sleeping days. continue current mgmt. 05/31:laying in bed. declined to meet with T/W. pt stated, I want to sleep. I didn't sleep enough . Pt encouraged to reach out to staff if he needs anything. Continue current tx plan. 06/01: Similar to yesterday. laying in bed. Irritable. declined to meet with T/W and pulled bed sheets over head. pt stated, I don't want to talk. I want to sleep . difficult to engage. Continue current tx plan. 06/02: Similar to yesterday. laying in bed. Irritable. declined to meet with T/W. Observed getting drink from kitchen; T/W approached pt and asked if they could speak. patient declined to acknowledge T/W and walked past. Continue current tx plan. 06/03: no change in behavior. continue tx plan. 06/04/25: Passive engaged in the assessment, in bed mostly sleeping this morning which could be interfere with his nighttime. Cover body under the blanket Slept for 4-5 hours last night. Was medication compliant, attended no groups, isolative to self in room. No SI/SIB/HI/AVH expressed. 06/05: continue tx plan. 06/06: reports feeling fine ; continues guarded. difficult to engage. declining to meet with T/W. continue tx plan. 06/07/25: Slept for 4 hours at night, but has been sleeping most of the day yesterday as well. Spent majority of the shift in bed, was medication compliant. Passive engaged in the conversation. He said he will try to change the sleeping pattern so that he can be awake more during the daytime. Appear to be sedated in the morning. No safety behavior. 06/08/25: Slept for 3-4 hours last night, compliant with medications. Denies side effects, denies other safety concerns. Continued to encourage patient to up and down more than on the unit he spent most of the day sleeping. He is pleasant upon approach. No other behavior issues. Denied voices/hallucinations. Suicide thoughts or homicidal thoughts. 06/09: sleeping, minimally rousable. denies problems. continue current mgmt. 06/10: sleeping all day, up most of the night. minimally rousable. denies problems. continue current mgmt. per J[place]ICA Arrington: Jean said when he leaves he can return to [facility]. he was living with a lady there and can go back. He plans to get a job to pay off his debt. He said he owes money because they sent him back here due to losing his passport and he owes them money for the temporary emergency passport and the flight back to the . so his main focus is to get a job. he said he will try things here first and if it doesn't work out he plans to return to [place]. 06/11/25: Passively engaged in conversation while in bed sleeping/resting. Able to answer question appropriately, but seems to be minimized. Denies SI/SIB/HI/AVH. He slept 5 hours last night, spent most of the day in bed sleeping. Attempted to no groups, observed out to the afternoon in the subramanian near the nurse station. No change in presentation. Encourage groups,up and engaged in groups. Reason for continued inpatient stay Substantial Risk for: med/psych decompensation Time Spent With Patient Time: Total time managing care of this patient today ____ minutes.
[2025-06-11 22:45] VITALS: BP 141/85; PULSE 106; RESP 16; TEMP 36.4; O2SAT 100
[2025-06-12] MEDS: OLANZapine ODT 10 MG TAB.RAPDIS 20 MG TRANSLINGU (00:12)
[2025-06-12 08:00] VITALS: RESP 16
--- NOTE | 2025-06-12 15:23 | HO.PSYCHPN ---
Subjective Subjective Date of Service: 06/12/25 Reason For Visit: psychotic disorder Interim History: no change in presentation. informed of plan to switch to MONTERO. no questions or complaints. per staff, no change in presentation. Mental Status Exam Mental Status Exam Narrative: He is under blanket, in bed sleeping. Passive. not engaging in assessment. Denies safety concerns. No SI//SIB/HI/AVH expressed. Diagnostics Vital Signs (24Hr): Vital Signs - 24 hr 06/11/25 22:45 06/12/25 08:00 Temperature 97.6 F Pulse Rate 106 H Respiratory Rate 16 16 Blood Pressure 141/85 H Pulse Oximetry 100 Oxygen Delivery Method Room Air BMI result Body Mass Index 24.0 Labs 03/27/25 09:44 05/27/25 22:58 Medications Medications Current Medications Acetaminophen (Acetaminophen 325 Mg Tablet) 650 mg PO Q6H PRN PRN Reason: Headache/Pain, Scale 1-10 Last Admin: 04/01/25 23:20 Dose: 650 mg Al Hydroxide/Mg Hydroxide (Magnesium Hydrox/Alum Hydrox 30 Ml Oral.Susp) 30 ml PO Q6H PRN PRN Reason: Heartburn/Nausea Amoxicillin/Clavulanate Potassium (Amoxicillin/Potassium Clav 875 Mg Tablet) 875 mg PO BID [facility] Last Admin: 06/12/25 10:14 Dose: 875 mg Benzocaine (Benzocaine 20 % Oral Gel 14 Gm Tube) 1 appl MUCOUS MEM QID PRN; Protocol PRN Reason: Mouth Sore Pain Last Admin: 04/26/25 18:33 Dose: 1 appl Diazepam (Diazepam 10 Mg/2 Ml Cartridge) 10 mg IM BID PRN PRN Reason: refusal of lithium, mary floyd Last Admin: 04/11/25 09:56 Dose: 10 mg Haloperidol (Haloperidol 5 Mg Tablet) 5 mg PO Q4H PRN PRN Reason: agitation Hydroxyzine HCl (Hydroxyzine Hcl 25 Mg Tablet) 25 mg PO Q6H PRN PRN Reason: mild anxiety Ibuprofen (Ibuprofen 800 Mg Tablet) 800 mg PO Q6H PRN PRN Reason: pain (pain scale 1-10) Last Admin: 06/05/25 04:03 Dose: 800 mg [place] Carbonate ([place] Carbonate Er 300 Mg Tablet.Er) 600 mg PO DAILY [facility] Last Admin: 06/12/25 10:15 Dose: 600 mg [place] Carbonate ([place] Carbonate Er 450 Mg Tablet.Er) 900 mg PO DAILY@2300 [facility] Last Admin: 06/12/25 00:12 Dose: 900 mg Magnesium Hydroxide (Milk Of Magnesia 30 Ml Oral.Susp) 30 ml PO DAILY PRN PRN Reason: Constipation Methimazole (Methimazole 10 Mg Tablet) 10 mg PO DAILY [facility] Last Admin: 06/12/25 10:16 Dose: 10 mg Nicotine (Nicotine 21 Mg Patch.Td24) 21 mg TRANSDERMA DAILY PRN PRN Reason: nicotine cravings Last Admin: 04/12/25 17:06 Dose: 21 mg Nicotine Polacrilex (Nicotine Polacrilex Lozenge 2 Mg Lozenge) 2 mg BUCCAL Q1H PRN PRN Reason: Nicotine Cravings Last Admin: 04/30/25 08:49 Dose: 2 mg Patient Own Medication Excedrin 250/250/65mg 2 each PO Q8H PRN PRN Reason: Migraine Headache Last Admin: 04/18/25 18:03 Dose: 2 each Olanzapine (Olanzapine 10 Mg Vial) 10 mg IM BID PRN PRN Reason: refusal of PO, per maria luz's ord Last Admin: 04/11/25 09:56 Dose: 10 mg Olanzapine (Olanzapine Odt 10 Mg Tab.Rapdis) 20 mg TRANSLINGU DAILY@2300 [facility] Last Admin: 06/12/25 00:12 Dose: 20 mg Quetiapine Fumarate (Quetiapine Fumarate 200 Mg Tablet) 200 mg PO BEDTIME PRN PRN Reason: insomnia Last Admin: 04/16/25 04:21 Dose: 200 mg Allergies Allergies Allergy/AdvReac Type Severity Reaction Status Date / Time No Known Allergies Allergy Verified 03/26/25 14:24 Assessment & Plan Assessment & Plan (1) Graves disease: Status: Acute Code(s): E05.00 - Thyrotoxicosis with diffuse goiter without thyrotoxic crisis or storm Assessment and Plan: Hyperthyroidism/Graves disease. He will need follow up with endocrinology as an outpatient He will also need a primary care doctor referral as an outpatient Discussed with Dr. Bejarano, patient will need free T4 weekly Decrease Methimazole to 15 mgs daily for three days and then 10 mgs daily- discussed with patient he is aware of plan and rationale. TSH and free T4 every 4 weeks. No need to draw thyroid stimulation immunology or TSH receptor AB (2) Dental abscess: Status: Acute Code(s): K04.7 - Periapical abscess without sinus Assessment and Plan: Carious tooth/dental infection Recently treated with PEN VK 500 mg q.6 hours for 7 days Patient will need follow up with dentist on discharge for tooth extraction Motrin helping pain. (3) Becca: Status: Acute Code(s): F30.9 - Manic episode, unspecified Plan 03/26: offer lithium and seroquel for becca. continue methimazole and beta joanne for hyperthyroidism as started at [facility]. trend TFTs. 12b. 03/27: taking methimazole and beta joanne. refused HS meds last night, took morning meds today. continue to encourage medication compliance. 03/28: intermittently taking meds. wants all meds in morning. pressured, manic, paranoid delusions. encouraged to take lithium but states he will not. all meds ordered for morning. 03/29: Keeping to self. no groups. observed laying in bed listening to music on unit headphones. pleasant. Pt reports feeling good today and sleeping well. declined lithium and zyprexa. denies SI/HI/VH/AH. continue current tx plan. 03/30:Irritable. upset he was unable to use his personal hygiene products. Per nursing, pt threatened staff and squeezed tooth paste throughout unit hallway to show his frustration. Pt was able to calm down after speaking with security. declined medications. 03/31: Keeping to self. laying in bed listening to music. refused medications. calm today. Patient reports feeling great ; pt stated, nothing is wrong with me. I'm waiting so I can leave tomorrow. I'm hoping for the best . denies SI/HI/VH/AH. per nursing, slept 6 hours. Continue current tx plan. 04/01: variably calm on the unit versus highly agitated. paranoid delusions, irritability, lability continue. seems to believe MD has met him prior to the present hospitalization and is stalking him. believes brother behind conspiracy to have him psychiatrically hospitalized. has been refusing all medications, including for hyperthyroidism. informed he would be filed on. filed. continue to offer medications. 04/02: continues agitated, belittling, verbally aggressive, refusing all medications including for hyperthyroidism. continue to offer medication. 04/03: paranoid there is a conspiracy to hospitalize him. threatening to stick a stick in staff once he is released by continuity writer. insists his hyperthyroidism was cured at [facility]. asserts there is NOTHING wrong with him. continue to offer medication. 04/04: irritable, rejecting. verbally abuses MD and sends him away: see you on monday [in court]. continue to offer medication for thyroid condition and mental illness. 04/05 continue tx. suspicious and guarded, accusatory, verbal threats to hurt staff and peers 04/06 intrusive, posturing towards staff and peer who he thinks is not real and is an impostor, continues to make verbal threats to harm him but thinks that because he is not real he may not experience any pain. 04/07: threatening statements and behaviors of yesterday noted. pt sleeping this morning, dismissive of MD. 04/08: asleep days. committed and meds ordered by court. 04/09: on being informed of court order and MD insisting on meds, pt escalated to hurling food item in container against wall at high speed and saying he wished he could do the same to MD's head. pt eventually took court ordered meds PO. sensodyne and excedrin not available in pharmacy (pt requesting them). 04/10: continue tx. Pt accepting medication today. 04/11: Keeping to self. Lying in bed most of morning. Declined to meet with T/W. Pt stated, I'm fine. I don't need anything . Listening to headphones in room. Declined court ordered PO medications; received IM medications. Refused vital signs.continue tx plan. 04/12: got IMs yesterday, took PO this morning. sleepy, no concerns or complaints. 04/13: taking PO meds again. slept 7 hours. sleepy again mid morning refusing interview. continue current mgmt. 04/14: sleeping, rousable. denies being sedated or tired, says he's just bored. no questions or complaints. informed of need to check labs. check lithium level and thyroid labs tonight. 04/15: refusing labs. delusional re his brother harming him. verbally abusive toward MD. spat in floor. happy with improvement in proptosis. 04/16: Lying in bed. Calm. cooperative. guarded. Pt reports feeling tired this morning d/t poor sleep last night. Pt stated, I don't need anything. I didn't sleep well so I'm trying to catch up . denies any issues at this time. denies SI/HI/VH/AH. Continue current tx plan. 04/17: more calm today, less explosive. continue current mgmt. 04/18: continues more calm. tolerating moments of frustration without verbally attacking MD. slept only 2 hours overnight, however. continue current mgmt. 04/19 continues to push boundaries and limits with staff mike around cell phone- 04/20 - aggressive with staff and unpredictable- threw water pitcher at staff behind desk/-when seen by provider passive in bed-denying all compaints/sys- no insight 04/21: appears as per last week. more difficult behaviors around cell phone use, did throw pitcher of water at RN monday over phone use and was restrained. continue current mgmt. 04/22: continues to have conflict around cell phone use. consolidate zyprexa at HS to decrease daytime sedation. 1:1 allegra shift until peer he is accusing of not being a real patient and appears to be targeting discharges tomorrow. 04/23: lithium 0.6 on 600 BID. sleeping better, remains delusional (telling SW who is marginally younger than him that she could be his daughter). just changed zyprexa dosing as of last night. continue current regimen and observe for continued stabilization. T/C slight increase in lithium dosing. 04/24: Laying in bed. guarded. calm. did not want to get out of bed to meet with T/W. Pt reports feeling great today but declined to go into detail. listening to music on unit headphones. Pt stated, I'm fine. I don't need anything . denies any issues at this time. denies SI/HI/VH/AH. Continue current tx plan. 04/25: Laying in bed. keeping to self. calm. paranoid. Discussed incident that occurred with staff last evening. Pt stated, the counselor made up a lie yesterday. I said she looks like my ex-girlfriend. I know they are related. They want to make up a lie to irritate me. They are trying to talk to me so they can use recording devices and make me look some kind of way . listening to music on unit headphones. denies SI/HI/VH/AH. Continue current tx plan. 04/26: Continue current regimen and plans. Increase Zyprexa 20 mg q.h.s. fresh air break withheld 04/27: Continue current regimen and plans 04/28: somewhat less irritable and agitated than last week. however, over the weekend was claiming he was the father of a footballer on TV and also that a staff member is a twin of his ex-GF (and he pushed staff member). TFTs improving. continue current mgmt. 04/29: no change in presentation. continue current mgmt. 04/30: no irritable edge today. calm, pleasant. engaging in small talk. reality testing not pressed. continue current mgmt for now. 05/01: no change in presentation. continue current mgmt. 05/02: BPs coming down, DC beta joanne as pt has been refusing anyway. remains not antagonistic toward MD. using phone appropriately. continue current mgmt otherwise. 05/03 continue 05/04: remains delusional, irritable/labile when delusional system confronted. declines to sign TOMMY for [facility] records. continue current mgmt. 05/06: declining to meet with MD, but does meet with medical student. remains upset about yesterday's confrontation re his delusional system. 05/07: Active on unit. keeping to self. pacing unit hallway while listening to unit headphones. medication compliant. patient reports feeling good ; pt stated, I'm just waiting to leave here. I want to return to my life and do things like go grocery shopping . denies SI/HI/VH/AH. Continue current tx plan. 05/08: stable presentation, delusions not being brought to the surface daily. remains affectively improved from admission. continue current mgmt. 05/09: calm, pleasant. no questions or complaints. continue current mgmt. 05/10: no change in presentation. due to lack of improvement in dental infection Sx, DC PCN and start augmentin. 05/11: no change in presentation. continue current mgmt. 05/12: as for yesterday. dental pain improving a bit. 05/13: expressed to medical student that his brother poisoned him, causing his thyroid disease. no change in presentation. continue current mgmt. 05/14: Pacing unit hallway. keeping to self. patient reports feeling good today; denies any issues at this time. denies SI/HI/VH/AH. per nursing, slept 5 hours. Continue current tx plan. 05/15: slept 6 hours. otherwise isolative, difficult to engage. continue current mgmt. 05/16: slept 7 hours. as for yesterday otherwise. 05/17/25: Slept well, no issue with appetite, skinny and pretty tall. Compliant with medication. No side effects Calm and pleasant upon approach. Some what paranoid. Tangential, however denies other safety concerns. Questions if he is discharging soon. He is on antibiotic for 7 days for mouth pain/tooth pain. We will finish the 7 course up in antibiotic after tonight dose. Then discontinue. 05/18/25: Slept for 5 hours plus hours this morning. In bed most of the shift, no behavior issues. Denies other safety concerns. 05/19: in bed days, up eves. no change in presentation. continue current mgmt. 05/20: no change in presentation. check labs. 05/21: lithium low, TFTs mixed and not all back. increase lithium from 600 BID to 600/900. trend BUN/Cr, with slight elevation. otherwise continue current mgmt. 05/22: no change in presentation. continue current mgmt. 05/23: does not deny someone stole his sperm and impregnated his landlord's child with it. irritable. c/o dental pain, antibx restarted. otherwise continue current mgmt. 05/14: no change in mgt 05/25: more isolative today; no change in mgt 05/26: decreases in methimazole noted. continue psych regimen as is. pt refused to interact with MD today. 05/27: i'm sleeping. no change in presentation. labs tonight. 05/28: no change in behavior. lithium 0.66, BUN stable. continue current mgmt. 05/29: irritable. continue current mgmt. 05/30: no longer in single room. still not engaging, sleeping days. continue current mgmt. 05/31:laying in bed. declined to meet with T/W. pt stated, I want to sleep. I didn't sleep enough . Pt encouraged to reach out to staff if he needs anything. Continue current tx plan. 06/01: Similar to yesterday. laying in bed. Irritable. declined to meet with T/W and pulled bed sheets over head. pt stated, I don't want to talk. I want to sleep . difficult to engage. Continue current tx plan. 06/02: Similar to yesterday. laying in bed. Irritable. declined to meet with T/W. Observed getting drink from kitchen; T/W approached pt and asked if they could speak. patient declined to acknowledge T/W and walked past. Continue current tx plan. 06/03: no change in behavior. continue tx plan. 06/04/25: Passive engaged in the assessment, in bed mostly sleeping this morning which could be interfere with his nighttime. Cover body under the blanket Slept for 4-5 hours last night. Was medication compliant, attended no groups, isolative to self in room. No SI/SIB/HI/AVH expressed. 06/05: continue tx plan. 06/06: reports feeling fine ; continues guarded. difficult to engage. declining to meet with T/W. continue tx plan. 06/07/25: Slept for 4 hours at night, but has been sleeping most of the day yesterday as well. Spent majority of the shift in bed, was medication compliant. Passive engaged in the conversation. He said he will try to change the sleeping pattern so that he can be awake more during the daytime. Appear to be sedated in the morning. No safety behavior. 06/08/25: Slept for 3-4 hours last night, compliant with medications. Denies side effects, denies other safety concerns. Continued to encourage patient to up and down more than on the unit he spent most of the day sleeping. He is pleasant upon approach. No other behavior issues. Denied voices/hallucinations. Suicide thoughts or homicidal thoughts. 06/09: sleeping, minimally rousable. denies problems. continue current mgmt. 06/10: sleeping all day, up most of the night. minimally rousable. denies problems. continue current mgmt. per JAMAICA Arrington: Jean said when he leaves he can return to [facility]. he was living with a lady there and can go back. He plans to get a job to pay off his debt. He said he owes money because they sent him back here due to losing his passport and he owes them money for the temporary emergency passport and the flight back to the [place]. so his main focus is to get a job. he said he will try things here first and if it doesn't work out he plans to return to [place]. 06/11/25: Passively engaged in conversation while in bed sleeping/resting. Able to answer question appropriately, but seems to be minimized. Denies SI/SIB/HI/AVH. He slept 5 hours last night, spent most of the day in bed sleeping. Attempted to no groups, observed out to the afternoon in the subramanian near the nurse station. No change in presentation. Encourage groups,up and engaged in groups. 06/12: not engaging. no complaints or questions re med changes. cross-taper zyprexa in favor of invega, give MONTERO invega. tonight, decrease zyprexa to 15 mg and start invega 3 mg. otherwise continue current mgmt. Reason for continued inpatient stay Substantial Risk for: inability to function, rapid decompensation and med/psych decompensation Time Spent With Patient Time: Total time managing care of this patient today __25__ minutes.
[2025-06-12 20:00] VITALS: BP 119/93; PULSE 101; RESP 16; TEMP 36.7; O2SAT 97
[2025-06-13] MEDS: OLANZapine ODT 10 MG TAB.RAPDIS 15 MG TRANSLINGU (00:03)
[2025-06-13 08:00] VITALS: RESP 16
--- NOTE | 2025-06-13 11:55 | HO.PSYCHPN ---
Subjective Subjective Date of Service: 06/13/25 Reason For Visit: psychotic disorder Interim History: in bed, minimally rousable, not engaged. denies any side effects from medication. informed cross-titration would continue tonight. per staff, isolative, days. up NOC. taking meds. Mental Status Exam Mental Status Exam Narrative: He is under blanket, in bed sleeping. Passive. not engaging in assessment. Denies safety concerns. No SI//SIB/HI/AVH expressed. Diagnostics Vital Signs (24Hr): Vital Signs - 24 hr 06/12/25 20:00 06/13/25 08:00 Temperature 98.1 F Pulse Rate 101 H Respiratory Rate 16 16 Blood Pressure 119/93 H Pulse Oximetry 97 Oxygen Delivery Method Room Air BMI result Body Mass Index 24.0 Labs 03/27/25 09:44 05/27/25 22:58 Medications Medications Current Medications Acetaminophen (Acetaminophen 325 Mg Tablet) 650 mg PO Q6H PRN PRN Reason: Headache/Pain, Scale 1-10 Last Admin: 04/01/25 23:20 Dose: 650 mg Al Hydroxide/Mg Hydroxide (Magnesium Hydrox/Alum Hydrox 30 Ml Oral.Susp) 30 ml PO Q6H PRN PRN Reason: Heartburn/Nausea Amoxicillin/Clavulanate Potassium (Amoxicillin/Potassium Clav 875 Mg Tablet) 875 mg PO BID [facility] Last Admin: 06/13/25 10:22 Dose: 875 mg Benzocaine (Benzocaine 20 % Oral Gel 14 Gm Tube) 1 appl MUCOUS MEM QID PRN; Protocol PRN Reason: Mouth Sore Pain Last Admin: 04/26/25 18:33 Dose: 1 appl Diazepam (Diazepam 10 Mg/2 Ml Cartridge) 10 mg IM BID PRN PRN Reason: refusal of lithium, per everett Last Admin: 04/11/25 09:56 Dose: 10 mg Haloperidol (Haloperidol 5 Mg Tablet) 5 mg PO Q4H PRN PRN Reason: agitation Hydroxyzine HCl (Hydroxyzine Hcl 25 Mg Tablet) 25 mg PO Q6H PRN PRN Reason: mild anxiety Ibuprofen (Ibuprofen 800 Mg Tablet) 800 mg PO Q6H PRN PRN Reason: pain (pain scale 1-10) Last Admin: 06/05/25 04:03 Dose: 800 mg [place] Carbonate ([place] Carbonate Er 300 Mg Tablet.Er) 600 mg PO DAILY [facility] Last Admin: 06/13/25 10:22 Dose: 600 mg [place] Carbonate ([place] Carbonate Er 450 Mg Tablet.Er) 900 mg PO DAILY@2300 [facility] Last Admin: 06/13/25 00:03 Dose: 900 mg Magnesium Hydroxide (Milk Of Magnesia 30 Ml Oral.Susp) 30 ml PO DAILY PRN PRN Reason: Constipation Methimazole (Methimazole 10 Mg Tablet) 10 mg PO DAILY [facility] Last Admin: 06/13/25 10:22 Dose: 10 mg Nicotine (Nicotine 21 Mg Patch.Td24) 21 mg TRANSDERMA DAILY PRN PRN Reason: nicotine cravings Last Admin: 04/12/25 17:06 Dose: 21 mg Nicotine Polacrilex (Nicotine Polacrilex Lozenge 2 Mg Lozenge) 2 mg BUCCAL Q1H PRN PRN Reason: Nicotine Cravings Last Admin: 04/30/25 08:49 Dose: 2 mg Patient Own Medication Excedrin 250/250/65mg 2 each PO Q8H PRN PRN Reason: Migraine Headache Last Admin: 04/18/25 18:03 Dose: 2 each Olanzapine (Olanzapine 10 Mg Vial) 10 mg IM BID PRN PRN Reason: refusal of PO, per maria luz's ord Last Admin: 04/11/25 09:56 Dose: 10 mg Olanzapine (Olanzapine Odt 10 Mg Tab.Rapdis) 15 mg TRANSLINGU DAILY@2300 [facility] Last Admin: 06/13/25 00:03 Dose: 15 mg Paliperidone (Paliperidone Er 3 Mg Tab.Er.24) 3 mg PO BEDTIME [facility] Last Admin: 06/13/25 00:03 Dose: 3 mg Quetiapine Fumarate (Quetiapine Fumarate 200 Mg Tablet) 200 mg PO BEDTIME PRN PRN Reason: insomnia Last Admin: 04/16/25 04:21 Dose: 200 mg Allergies Allergies Allergy/AdvReac Type Severity Reaction Status Date / Time No Known Allergies Allergy Verified 03/26/25 14:24 Assessment & Plan Assessment & Plan (1) Graves disease: Status: Acute Code(s): E05.00 - Thyrotoxicosis with diffuse goiter without thyrotoxic crisis or storm Assessment and Plan: Hyperthyroidism/Graves disease. He will need follow up with endocrinology as an outpatient He will also need a primary care doctor referral as an outpatient Discussed with Dr. Bejarano, patient will need free T4 weekly Decrease Methimazole to 15 mgs daily for three days and then 10 mgs daily- discussed with patient he is aware of plan and rationale. TSH and free T4 every 4 weeks. No need to draw thyroid stimulation immunology or TSH receptor AB (2) Dental abscess: Status: Acute Code(s): K04.7 - Periapical abscess without sinus Assessment and Plan: Carious tooth/dental infection Recently treated with PEN VK 500 mg q.6 hours for 7 days Patient will need follow up with dentist on discharge for tooth extraction Motrin helping pain. (3) Becca: Status: Acute Code(s): F30.9 - Manic episode, unspecified Plan 03/26: offer lithium and seroquel for becca. continue methimazole and beta joanne for hyperthyroidism as started at [facility]. trend TFTs. 12b. 03/27: taking methimazole and beta joanne. refused HS meds last night, took morning meds today. continue to encourage medication compliance. 03/28: intermittently taking meds. wants all meds in morning. pressured, manic, paranoid delusions. encouraged to take lithium but states he will not. all meds ordered for morning. 03/29: Keeping to self. no groups. observed laying in bed listening to music on unit headphones. pleasant. Pt reports feeling good today and sleeping well. declined lithium and zyprexa. denies SI/HI/VH/AH. continue current tx plan. 03/30:Irritable. upset he was unable to use his personal hygiene products. Per nursing, pt threatened staff and squeezed tooth paste throughout unit hallway to show his frustration. Pt was able to calm down after speaking with security. declined medications. 03/31: Keeping to self. laying in bed listening to music. refused medications. calm today. Patient reports feeling great ; pt stated, nothing is wrong with me. I'm waiting so I can leave tomorrow. I'm hoping for the best . denies SI/HI/VH/AH. per nursing, slept 6 hours. Continue current tx plan. 04/01: variably calm on the unit versus highly agitated. paranoid delusions, irritability, lability continue. seems to believe MD has met him prior to the present hospitalization and is stalking him. believes brother behind conspiracy to have him psychiatrically hospitalized. has been refusing all medications, including for hyperthyroidism. informed he would be filed on. filed. continue to offer medications. 04/02: continues agitated, belittling, verbally aggressive, refusing all medications including for hyperthyroidism. continue to offer medication. 04/03: paranoid there is a conspiracy to hospitalize him. threatening to stick a stick in staff once he is released by election judge. insists his hyperthyroidism was cured at [facility]. asserts there is NOTHING wrong with him. continue to offer medication. 04/04: irritable, rejecting. verbally abuses MD and sends him away: see you on monday [in court]. continue to offer medication for thyroid condition and mental illness. 04/05 continue tx. suspicious and guarded, accusatory, verbal threats to hurt staff and peers 04/06 intrusive, posturing towards staff and peer who he thinks is not real and is an impostor, continues to make verbal threats to harm him but thinks that because he is not real he may not experience any pain. 04/07: threatening statements and behaviors of yesterday noted. pt sleeping this morning, dismissive of MD. 04/08: asleep days. committed and meds ordered by court. 04/09: on being informed of court order and MD insisting on meds, pt escalated to hurling food item in container against wall at high speed and saying he wished he could do the same to MD's head. pt eventually took court ordered meds PO. sensodyne and excedrin not available in pharmacy (pt requesting them). 04/10: continue tx. Pt accepting medication today. 04/11: Keeping to self. Lying in bed most of morning. Declined to meet with T/W. Pt stated, I'm fine. I don't need anything . Listening to headphones in room. Declined court ordered PO medications; received IM medications. Refused vital signs.continue tx plan. 04/12: got IMs yesterday, took PO this morning. sleepy, no concerns or complaints. 04/13: taking PO meds again. slept 7 hours. sleepy again mid morning refusing interview. continue current mgmt. 04/14: sleeping, rousable. denies being sedated or tired, says he's just bored. no questions or complaints. informed of need to check labs. check lithium level and thyroid labs tonight. 04/15: refusing labs. delusional re his brother harming him. verbally abusive toward MD. spat in floor. happy with improvement in proptosis. 04/16: Lying in bed. Calm. cooperative. guarded. Pt reports feeling tired this morning d/t poor sleep last night. Pt stated, I don't need anything. I didn't sleep well so I'm trying to catch up . denies any issues at this time. denies SI/HI/VH/AH. Continue current tx plan. 04/17: more calm today, less explosive. continue current mgmt. 04/18: continues more calm. tolerating moments of frustration without verbally attacking MD. slept only 2 hours overnight, however. continue current mgmt. 04/19 continues to push boundaries and limits with staff mike around cell phone- 04/20 - aggressive with staff and unpredictable- threw water pitcher at staff behind desk/-when seen by provider passive in bed-denying all compaints/sys- no insight 04/21: appears as per last week. more difficult behaviors around cell phone use, did throw pitcher of water at RN monday over phone use and was restrained. continue current mgmt. 04/22: continues to have conflict around cell phone use. consolidate zyprexa at HS to decrease daytime sedation. 1:1 allegra shift until peer he is accusing of not being a real patient and appears to be targeting discharges tomorrow. 04/23: lithium 0.6 on 600 BID. sleeping better, remains delusional (telling SW who is marginally younger than him that she could be his daughter). just changed zyprexa dosing as of last night. continue current regimen and observe for continued stabilization. T/C slight increase in lithium dosing. 04/24: Laying in bed. guarded. calm. did not want to get out of bed to meet with T/W. Pt reports feeling great today but declined to go into detail. listening to music on unit headphones. Pt stated, I'm fine. I don't need anything . denies any issues at this time. denies SI/HI/VH/AH. Continue current tx plan. 04/25: Laying in bed. keeping to self. calm. paranoid. Discussed incident that occurred with staff last evening. Pt stated, the counselor made up a lie yesterday. I said she looks like my ex-girlfriend. I know they are related. They want to make up a lie to irritate me. They are trying to talk to me so they can use recording devices and make me look some kind of way . listening to music on unit headphones. denies SI/HI/VH/AH. Continue current tx plan. 04/26: Continue current regimen and plans. Increase Zyprexa 20 mg q.h.s. fresh air break withheld 04/27: Continue current regimen and plans 04/28: somewhat less irritable and agitated than last week. however, over the weekend was claiming he was the father of a footballer on TV and also that a staff member is a twin of his ex-GF (and he pushed staff member). TFTs improving. continue current mgmt. 04/29: no change in presentation. continue current mgmt. 04/30: no irritable edge today. calm, pleasant. engaging in small talk. reality testing not pressed. continue current mgmt for now. 05/01: no change in presentation. continue current mgmt. 05/02: BPs coming down, DC beta joanne as pt has been refusing anyway. remains not antagonistic toward MD. using phone appropriately. continue current mgmt otherwise. 05/03 continue 05/04: remains delusional, irritable/labile when delusional system confronted. declines to sign TOMMY for [facility] records. continue current mgmt. 05/06: declining to meet with MD, but does meet with medical student. remains upset about yesterday's confrontation re his delusional system. 05/07: Active on unit. keeping to self. pacing unit hallway while listening to unit headphones. medication compliant. patient reports feeling good ; pt stated, I'm just waiting to leave here. I want to return to my life and do things like go grocery shopping . denies SI/HI/VH/AH. Continue current tx plan. 05/08: stable presentation, delusions not being brought to the surface daily. remains affectively improved from admission. continue current mgmt. 05/09: calm, pleasant. no questions or complaints. continue current mgmt. 05/10: no change in presentation. due to lack of improvement in dental infection Sx, DC PCN and start augmentin. 05/11: no change in presentation. continue current mgmt. 05/12: as for yesterday. dental pain improving a bit. 05/13: expressed to medical student that his brother poisoned him, causing his thyroid disease. no change in presentation. continue current mgmt. 05/14: Pacing unit hallway. keeping to self. patient reports feeling good today; denies any issues at this time. denies SI/HI/VH/AH. per nursing, slept 5 hours. Continue current tx plan. 05/15: slept 6 hours. otherwise isolative, difficult to engage. continue current mgmt. 05/16: slept 7 hours. as for yesterday otherwise. 05/17/25: Slept well, no issue with appetite, skinny and pretty tall. Compliant with medication. No side effects Calm and pleasant upon approach. Some what paranoid. Tangential, however denies other safety concerns. Questions if he is discharging soon. He is on antibiotic for 7 days for mouth pain/tooth pain. We will finish the 7 course up in antibiotic after tonight dose. Then discontinue. 05/18/25: Slept for 5 hours plus hours this morning. In bed most of the shift, no behavior issues. Denies other safety concerns. 05/19: in bed days, up eves. no change in presentation. continue current mgmt. 05/20: no change in presentation. check labs. 05/21: lithium low, TFTs mixed and not all back. increase lithium from 600 BID to 600/900. trend BUN/Cr, with slight elevation. otherwise continue current mgmt. 05/22: no change in presentation. continue current mgmt. 05/23: does not deny someone stole his sperm and impregnated his landlord's child with it. irritable. c/o dental pain, antibx restarted. otherwise continue current mgmt. 05/14: no change in mgt 05/25: more isolative today; no change in mgt 05/26: decreases in methimazole noted. continue psych regimen as is. pt refused to interact with MD today. 05/27: i'm sleeping. no change in presentation. labs tonight. 05/28: no change in behavior. lithium 0.66, BUN stable. continue current mgmt. 05/29: irritable. continue current mgmt. 05/30: no longer in single room. still not engaging, sleeping days. continue current mgmt. 05/31:laying in bed. declined to meet with T/W. pt stated, I want to sleep. I didn't sleep enough . Pt encouraged to reach out to staff if he needs anything. Continue current tx plan. 06/01: Similar to yesterday. laying in bed. Irritable. declined to meet with T/W and pulled bed sheets over head. pt stated, I don't want to talk. I want to sleep . difficult to engage. Continue current tx plan. 06/02: Similar to yesterday. laying in bed. Irritable. declined to meet with T/W. Observed getting drink from kitchen; T/W approached pt and asked if they could speak. patient declined to acknowledge T/W and walked past. Continue current tx plan. 06/03: no change in behavior. continue tx plan. 06/04/25: Passive engaged in the assessment, in bed mostly sleeping this morning which could be interfere with his nighttime. Cover body under the blanket Slept for 4-5 hours last night. Was medication compliant, attended no groups, isolative to self in room. No SI/SIB/HI/AVH expressed. 06/05: continue tx plan. 06/06: reports feeling fine ; continues guarded. difficult to engage. declining to meet with T/W. continue tx plan. 06/07/25: Slept for 4 hours at night, but has been sleeping most of the day yesterday as well. Spent majority of the shift in bed, was medication compliant. Passive engaged in the conversation. He said he will try to change the sleeping pattern so that he can be awake more during the daytime. Appear to be sedated in the morning. No safety behavior. 06/08/25: Slept for 3-4 hours last night, compliant with medications. Denies side effects, denies other safety concerns. Continued to encourage patient to up and down more than on the unit he spent most of the day sleeping. He is pleasant upon approach. No other behavior issues. Denied voices/hallucinations. Suicide thoughts or homicidal thoughts. 06/09: sleeping, minimally rousable. denies problems. continue current mgmt. 06/10: sleeping all day, up most of the night. minimally rousable. denies problems. continue current mgmt. per JAMAICA Arrington: Jean said when he leaves he can return to [facility]. he was living with a lady there and can go back. He plans to get a job to pay off his debt. He said he owes money because they sent him back here due to losing his passport and he owes them money for the temporary emergency passport and the flight back to the . so his main focus is to get a job. he said he will try things here first and if it doesn't work out he plans to return to [place]. 06/11/25: Passively engaged in conversation while in bed sleeping/resting. Able to answer question appropriately, but seems to be minimized. Denies SI/SIB/HI/AVH. He slept 5 hours last night, spent most of the day in bed sleeping. Attempted to no groups, observed out to the afternoon in the subramanian near the nurse station. No change in presentation. Encourage groups,up and engaged in groups. 06/12: not engaging. no complaints or questions re med changes. cross-taper zyprexa in favor of invega, give MONTERO invega. tonight, decrease zyprexa to 15 mg and start invega 3 mg. otherwise continue current mgmt. 06/13: continues avoidant and disengaged. denies side effects from med change last night. informed cross-titration will advance tonight. decrease zyprexa to 10 mg tonight, increase paliperidone to 6 mg. plan to continue by 5 mg zyprexa and 3 mg paliperidone increments every several days as tolerated until zyprexa DCed and paliperidone at 12 mg QHS. once it is established pt is tolerating PO Paliperidone, invega sustenna to be administered. Reason for continued inpatient stay Substantial Risk for: harm to self, harm to others, inability to function, rapid decompensation and med/psych decompensation Time Spent With Patient Time: Total time managing care of this patient today ____ minutes.
[2025-06-13 20:30] VITALS: BP 130/68; PULSE 84; RESP 16; TEMP 36.4; O2SAT 100
--- NOTE | 2025-06-13 22:39 | PC.NURSE ---
requesting again not to take amoxicillin until midnight or ''close to then''
[2025-06-13] MEDS: OLANZapine ODT 10 MG TAB.RAPDIS TRANSLINGU (23:57)
--- NOTE | 2025-06-14 10:22 | HO.PSYCHPN ---
Subjective Subjective Date of Service: 06/14/25 Reason For Visit: psychotic disorder Subjective Notes: Section 8 Interim History: Patient was seen and discussed in rounds today. Records and plans were reviewed. He has been visible, pacing. Started on Invega p.o.. Denies any side effects. Eating adequately and slept 4 hours. No dangerous or behavioral issues. No changes were Review of Systems Review of Systems Yes all other systems are reviewed and are negative Mental Status Exam Mental Status Exam Narrative: In today's visit he is alert, oriented and pleasant. Normal speech. Moderate eye contact. Affect is appropriate and constricted. Denies AVH. Cognitively is at baseline. No SI. Judgment not evaluated. Diagnostics Vital Signs (24Hr): Vital Signs - 24 hr 06/13/25 20:30 Temperature 97.5 F Pulse Rate 84 Respiratory Rate 16 Blood Pressure 130/68 Pulse Oximetry 100 Oxygen Delivery Method Room Air BMI result Body Mass Index 24.0 Labs 03/27/25 09:44 05/27/25 22:58 Medications Medications Current Medications Acetaminophen (Acetaminophen 325 Mg Tablet) 650 mg PO Q6H PRN PRN Reason: Headache/Pain, Scale 1-10 Last Admin: 04/01/25 23:20 Dose: 650 mg Al Hydroxide/Mg Hydroxide (Magnesium Hydrox/Alum Hydrox 30 Ml Oral.Susp) 30 ml PO Q6H PRN PRN Reason: Heartburn/Nausea Amoxicillin/Clavulanate Potassium (Amoxicillin/Potassium Clav 875 Mg Tablet) 875 mg PO BID KRISTAL Last Admin: 06/14/25 09:48 Dose: 875 mg Benzocaine (Benzocaine 20 % Oral Gel 14 Gm Tube) 1 appl MUCOUS MEM QID PRN; Protocol PRN Reason: Mouth Sore Pain Last Admin: 04/26/25 18:33 Dose: 1 appl Diazepam (Diazepam 10 Mg/2 Ml Cartridge) 10 mg IM BID PRN PRN Reason: refusal of lithiummary Last Admin: 04/11/25 09:56 Dose: 10 mg Haloperidol (Haloperidol 5 Mg Tablet) 5 mg PO Q4H PRN PRN Reason: agitation Hydroxyzine HCl (Hydroxyzine Hcl 25 Mg Tablet) 25 mg PO Q6H PRN PRN Reason: mild anxiety Ibuprofen (Ibuprofen 800 Mg Tablet) 800 mg PO Q6H PRN PRN Reason: pain (pain scale 1-10) Last Admin: 06/05/25 04:03 Dose: 800 mg [place] Carbonate ([place] Carbonate Er 300 Mg Tablet.Er) 600 mg PO DAILY [facility] Last Admin: 06/14/25 09:47 Dose: 600 mg [place] Carbonate ([place] Carbonate Er 450 Mg Tablet.Er) 900 mg PO DAILY@2300 [facility] Last Admin: 06/13/25 23:57 Dose: 900 mg Magnesium Hydroxide (Milk Of Magnesia 30 Ml Oral.Susp) 30 ml PO DAILY PRN PRN Reason: Constipation Methimazole (Methimazole 10 Mg Tablet) 10 mg PO DAILY [facility] Last Admin: 06/14/25 09:47 Dose: 10 mg Nicotine (Nicotine 21 Mg Patch.Td24) 21 mg TRANSDERMA DAILY PRN PRN Reason: nicotine cravings Last Admin: 04/12/25 17:06 Dose: 21 mg Nicotine Polacrilex (Nicotine Polacrilex Lozenge 2 Mg Lozenge) 2 mg BUCCAL Q1H PRN PRN Reason: Nicotine Cravings Last Admin: 04/30/25 08:49 Dose: 2 mg Patient Own Medication Excedrin 250/250/65mg 2 each PO Q8H PRN PRN Reason: Migraine Headache Last Admin: 04/18/25 18:03 Dose: 2 each Olanzapine (Olanzapine 10 Mg Vial) 10 mg IM BID PRN PRN Reason: refusal of PO, per maria luz's ord Last Admin: 04/11/25 09:56 Dose: 10 mg Olanzapine (Olanzapine Odt 10 Mg Tab.Rapdis) 10 mg TRANSLINGU DAILY@2300 [facility] Last Admin: 06/13/25 23:57 Dose: 10 mg Paliperidone (Paliperidone Er 6 Mg Tab.Er.24) 6 mg PO BEDTIME [facility] Last Admin: 06/13/25 23:57 Dose: 6 mg Quetiapine Fumarate (Quetiapine Fumarate 200 Mg Tablet) 200 mg PO BEDTIME PRN PRN Reason: insomnia Last Admin: 04/16/25 04:21 Dose: 200 mg Allergies Allergies Allergy/AdvReac Type Severity Reaction Status Date / Time No Known Allergies Allergy Verified 03/26/25 14:24 Assessment & Plan Assessment & Plan (1) Graves disease: Status: Acute Code(s): E05.00 - Thyrotoxicosis with diffuse goiter without thyrotoxic crisis or storm Assessment and Plan: Hyperthyroidism/Graves disease. He will need follow up with endocrinology as an outpatient He will also need a primary care doctor referral as an outpatient Discussed with Dr. Bejarano, patient will need free T4 weekly Decrease Methimazole to 15 mgs daily for three days and then 10 mgs daily- discussed with patient he is aware of plan and rationale. TSH and free T4 every 4 weeks. No need to draw thyroid stimulation immunology or TSH receptor AB (2) Dental abscess: Status: Acute Code(s): K04.7 - Periapical abscess without sinus Assessment and Plan: Carious tooth/dental infection Recently treated with PEN VK 500 mg q.6 hours for 7 days Patient will need follow up with dentist on discharge for tooth extraction Motrin helping pain. (3) Becca: Status: Acute Code(s): F30.9 - Manic episode, unspecified Plan 03/26: offer lithium and seroquel for becca. continue methimazole and beta joanne for hyperthyroidism as started at [facility]. trend TFTs. 12b. 03/27: taking methimazole and beta joanne. refused HS meds last night, took morning meds today. continue to encourage medication compliance. 03/28: intermittently taking meds. wants all meds in morning. pressured, manic, paranoid delusions. encouraged to take lithium but states he will not. all meds ordered for morning. 03/29: Keeping to self. no groups. observed laying in bed listening to music on unit headphones. pleasant. Pt reports feeling good today and sleeping well. declined lithium and zyprexa. denies SI/HI/VH/AH. continue current tx plan. 03/30:Irritable. upset he was unable to use his personal hygiene products. Per nursing, pt threatened staff and squeezed tooth paste throughout unit hallway to show his frustration. Pt was able to calm down after speaking with security. declined medications. 03/31: Keeping to self. laying in bed listening to music. refused medications. calm today. Patient reports feeling great ; pt stated, nothing is wrong with me. I'm waiting so I can leave tomorrow. I'm hoping for the best . denies SI/HI/VH/AH. per nursing, slept 6 hours. Continue current tx plan. 04/01: variably calm on the unit versus highly agitated. paranoid delusions, irritability, lability continue. seems to believe MD has met him prior to the present hospitalization and is stalking him. believes brother behind conspiracy to have him psychiatrically hospitalized. has been refusing all medications, including for hyperthyroidism. informed he would be filed on. filed. continue to offer medications. 04/02: continues agitated, belittling, verbally aggressive, refusing all medications including for hyperthyroidism. continue to offer medication. 04/03: paranoid there is a conspiracy to hospitalize him. threatening to stick a stick in staff once he is released by pole shaver. insists his hyperthyroidism was cured at [facility]. asserts there is NOTHING wrong with him. continue to offer medication. 04/04: irritable, rejecting. verbally abuses MD and sends him away: see you on monday [in court]. continue to offer medication for thyroid condition and mental illness. 04/05 continue tx. suspicious and guarded, accusatory, verbal threats to hurt staff and peers 04/06 intrusive, posturing towards staff and peer who he thinks is not real and is an impostor, continues to make verbal threats to harm him but thinks that because he is not real he may not experience any pain. 04/07: threatening statements and behaviors of yesterday noted. pt sleeping this morning, dismissive of MD. 04/08: asleep days. committed and meds ordered by court. 04/09: on being informed of court order and MD insisting on meds, pt escalated to hurling food item in container against wall at high speed and saying he wished he could do the same to MD's head. pt eventually took court ordered meds PO. sensodyne and excedrin not available in pharmacy (pt requesting them). 04/10: continue tx. Pt accepting medication today. 04/11: Keeping to self. Lying in bed most of morning. Declined to meet with T/W. Pt stated, I'm fine. I don't need anything . Listening to headphones in room. Declined court ordered PO medications; received IM medications. Refused vital signs.continue tx plan. 04/12: got IMs yesterday, took PO this morning. sleepy, no concerns or complaints. 04/13: taking PO meds again. slept 7 hours. sleepy again mid morning refusing interview. continue current mgmt. 04/14: sleeping, rousable. denies being sedated or tired, says he's just bored. no questions or complaints. informed of need to check labs. check lithium level and thyroid labs tonight. 04/15: refusing labs. delusional re his brother harming him. verbally abusive toward MD. spat in floor. happy with improvement in proptosis. 04/16: Lying in bed. Calm. cooperative. guarded. Pt reports feeling tired this morning d/t poor sleep last night. Pt stated, I don't need anything. I didn't sleep well so I'm trying to catch up . denies any issues at this time. denies SI/HI/VH/AH. Continue current tx plan. 04/17: more calm today, less explosive. continue current mgmt. 04/18: continues more calm. tolerating moments of frustration without verbally attacking MD. slept only 2 hours overnight, however. continue current mgmt. 04/19 continues to push boundaries and limits with staff mike around cell phone- 04/20 - aggressive with staff and unpredictable- threw water pitcher at staff behind desk/-when seen by provider passive in bed-denying all compaints/sys- no insight 04/21: appears as per last week. more difficult behaviors around cell phone use, did throw pitcher of water at RN monday over phone use and was restrained. continue current mgmt. 04/22: continues to have conflict around cell phone use. consolidate zyprexa at HS to decrease daytime sedation. 1:1 allegra shift until peer he is accusing of not being a real patient and appears to be targeting discharges tomorrow. 04/23: lithium 0.6 on 600 BID. sleeping better, remains delusional (telling SW who is marginally younger than him that she could be his daughter). just changed zyprexa dosing as of last night. continue current regimen and observe for continued stabilization. T/C slight increase in lithium dosing. 04/24: Laying in bed. guarded. calm. did not want to get out of bed to meet with T/W. Pt reports feeling great today but declined to go into detail. listening to music on unit headphones. Pt stated, I'm fine. I don't need anything . denies any issues at this time. denies SI/HI/VH/AH. Continue current tx plan. 04/25: Laying in bed. keeping to self. calm. paranoid. Discussed incident that occurred with staff last evening. Pt stated, the counselor made up a lie yesterday. I said she looks like my ex-girlfriend. I know they are related. They want to make up a lie to irritate me. They are trying to talk to me so they can use recording devices and make me look some kind of way . listening to music on unit headphones. denies SI/HI/VH/AH. Continue current tx plan. 04/26: Continue current regimen and plans. Increase Zyprexa 20 mg q.h.s. fresh air break withheld 04/27: Continue current regimen and plans 04/28: somewhat less irritable and agitated than last week. however, over the weekend was claiming he was the father of a footballer on TV and also that a staff member is a twin of his ex-GF (and he pushed staff member). TFTs improving. continue current mgmt. 04/29: no change in presentation. continue current mgmt. 04/30: no irritable edge today. calm, pleasant. engaging in small talk. reality testing not pressed. continue current mgmt for now. 05/01: no change in presentation. continue current mgmt. 05/02: BPs coming down, DC beta joanne as pt has been refusing anyway. remains not antagonistic toward MD. using phone appropriately. continue current mgmt otherwise. 05/03 continue 05/04: remains delusional, irritable/labile when delusional system confronted. declines to sign TOMMY for [facility] records. continue current mgmt. 05/06: declining to meet with MD, but does meet with medical student. remains upset about yesterday's confrontation re his delusional system. 05/07: Active on unit. keeping to self. pacing unit hallway while listening to unit headphones. medication compliant. patient reports feeling good ; pt stated, I'm just waiting to leave here. I want to return to my life and do things like go grocery shopping . denies SI/HI/VH/AH. Continue current tx plan. 05/08: stable presentation, delusions not being brought to the surface daily. remains affectively improved from admission. continue current mgmt. 05/09: calm, pleasant. no questions or complaints. continue current mgmt. 05/10: no change in presentation. due to lack of improvement in dental infection Sx, DC PCN and start augmentin. 05/11: no change in presentation. continue current mgmt. 05/12: as for yesterday. dental pain improving a bit. 05/13: expressed to medical student that his brother poisoned him, causing his thyroid disease. no change in presentation. continue current mgmt. 05/14: Pacing unit hallway. keeping to self. patient reports feeling good today; denies any issues at this time. denies SI/HI/VH/AH. per nursing, slept 5 hours. Continue current tx plan. 05/15: slept 6 hours. otherwise isolative, difficult to engage. continue current mgmt. 05/16: slept 7 hours. as for yesterday otherwise. 05/17/25: Slept well, no issue with appetite, skinny and pretty tall. Compliant with medication. No side effects Calm and pleasant upon approach. Some what paranoid. Tangential, however denies other safety concerns. Questions if he is discharging soon. He is on antibiotic for 7 days for mouth pain/tooth pain. We will finish the 7 course up in antibiotic after tonight dose. Then discontinue. 05/18/25: Slept for 5 hours plus hours this morning. In bed most of the shift, no behavior issues. Denies other safety concerns. 05/19: in bed days, up eves. no change in presentation. continue current mgmt. 05/20: no change in presentation. check labs. 05/21: lithium low, TFTs mixed and not all back. increase lithium from 600 BID to 600/900. trend BUN/Cr, with slight elevation. otherwise continue current mgmt. 05/22: no change in presentation. continue current mgmt. 05/23: does not deny someone stole his sperm and impregnated his landlord's child with it. irritable. c/o dental pain, antibx restarted. otherwise continue current mgmt. 05/14: no change in mgt 05/25: more isolative today; no change in mgt 05/26: decreases in methimazole noted. continue psych regimen as is. pt refused to interact with MD today. 05/27: i'm sleeping. no change in presentation. labs tonight. 05/28: no change in behavior. lithium 0.66, BUN stable. continue current mgmt. 05/29: irritable. continue current mgmt. 05/30: no longer in single room. still not engaging, sleeping days. continue current mgmt. 05/31:laying in bed. declined to meet with T/W. pt stated, I want to sleep. I didn't sleep enough . Pt encouraged to reach out to staff if he needs anything. Continue current tx plan. 06/01: Similar to yesterday. laying in bed. Irritable. declined to meet with T/W and pulled bed sheets over head. pt stated, I don't want to talk. I want to sleep . difficult to engage. Continue current tx plan. 06/02: Similar to yesterday. laying in bed. Irritable. declined to meet with T/W. Observed getting drink from kitchen; T/W approached pt and asked if they could speak. patient declined to acknowledge T/W and walked past. Continue current tx plan. 06/03: no change in behavior. continue tx plan. 06/04/25: Passive engaged in the assessment, in bed mostly sleeping this morning which could be interfere with his nighttime. Cover body under the blanket Slept for 4-5 hours last night. Was medication compliant, attended no groups, isolative to self in room. No SI/SIB/HI/AVH expressed. 06/05: continue tx plan. 06/06: reports feeling fine ; continues guarded. difficult to engage. declining to meet with T/W. continue tx plan. 06/07/25: Slept for 4 hours at night, but has been sleeping most of the day yesterday as well. Spent majority of the shift in bed, was medication compliant. Passive engaged in the conversation. He said he will try to change the sleeping pattern so that he can be awake more during the daytime. Appear to be sedated in the morning. No safety behavior. 06/08/25: Slept for 3-4 hours last night, compliant with medications. Denies side effects, denies other safety concerns. Continued to encourage patient to up and down more than on the unit he spent most of the day sleeping. He is pleasant upon approach. No other behavior issues. Denied voices/hallucinations. Suicide thoughts or homicidal thoughts. 06/09: sleeping, minimally rousable. denies problems. continue current mgmt. 06/10: sleeping all day, up most of the night. minimally rousable. denies problems. continue current mgmt. per JAMAICA Arrington: Jean said when he leaves he can return to [facility]. he was living with a lady there and can go back. He plans to get a job to pay off his debt. He said he owes money because they sent him back here due to losing his passport and he owes them money for the temporary emergency passport and the flight back to the . so his main focus is to get a job. he said he will try things here first and if it doesn't work out he plans to return to [place]. 06/11/25: Passively engaged in conversation while in bed sleeping/resting. Able to answer question appropriately, but seems to be minimized. Denies SI/SIB/HI/AVH. He slept 5 hours last night, spent most of the day in bed sleeping. Attempted to no groups, observed out to the afternoon in the subramanian near the nurse station. No change in presentation. Encourage groups,up and engaged in groups. 06/12: not engaging. no complaints or questions re med changes. cross-taper zyprexa in favor of invega, give MONTERO invega. tonight, decrease zyprexa to 15 mg and start invega 3 mg. otherwise continue current mgmt. 06/13: continues avoidant and disengaged. denies side effects from med change last night. informed cross-titration will advance tonight. decrease zyprexa to 10 mg tonight, increase paliperidone to 6 mg. plan to continue by 5 mg zyprexa and 3 mg paliperidone increments every several days as tolerated until zyprexa DCed and paliperidone at 12 mg QHS. once it is established pt is tolerating PO Paliperidone, invega sustenna to be administered. 06/14: Continue current regimen and plans Reason for continued inpatient stay Substantial Risk for: med/psych decompensation Time Spent With Patient Time: Total time managing care of this patient today ____ minutes.
--- NOTE | 2025-06-14 22:25 | PC.NURSE ---
again wanting to take HS meds at midnight
[2025-06-15] MEDS: OLANZapine ODT 10 MG TAB.RAPDIS TRANSLINGU (00:07)
[2025-06-15 07:20] VITALS: BP 111/54; PULSE 85; RESP 16; TEMP 36.2; O2SAT 98
--- NOTE | 2025-06-15 12:39 | HO.PSYCHPN ---
Subjective Subjective Date of Service: 06/15/25 Reason For Visit: psychotic disorder Subjective Notes: Section 8 Interim History: Patient was seen and discussed in rounds today. Records and plans were reviewed. He has been staying up mostly into the night and sleeping during the day. Eating and sleeping discussed. No complaints or side effects. Invega is well tolerated. No changes were made today Review of Systems Review of Systems Mostly in bed and barely arousable Yes Unobtainable due to mental status Mental Status Exam Mental Status Exam Narrative: In bed and barely arousable Diagnostics Vital Signs (24Hr): Vital Signs - 24 hr 06/15/25 07:20 Temperature 97.1 F Pulse Rate 85 Respiratory Rate 16 Blood Pressure 111/54 L Pulse Oximetry 98 Oxygen Delivery Method Room Air BMI result Body Mass Index 24.0 Labs 03/27/25 09:44 05/27/25 22:58 Medications Medications Current Medications Acetaminophen (Acetaminophen 325 Mg Tablet) 650 mg PO Q6H PRN PRN Reason: Headache/Pain, Scale 1-10 Last Admin: 04/01/25 23:20 Dose: 650 mg Al Hydroxide/Mg Hydroxide (Magnesium Hydrox/Alum Hydrox 30 Ml Oral.Susp) 30 ml PO Q6H PRN PRN Reason: Heartburn/Nausea Amoxicillin/Clavulanate Potassium (Amoxicillin/Potassium Clav 875 Mg Tablet) 875 mg PO BID [facility] Last Admin: 06/15/25 09:57 Dose: 875 mg Benzocaine (Benzocaine 20 % Oral Gel 14 Gm Tube) 1 appl MUCOUS MEM QID PRN; Protocol PRN Reason: Mouth Sore Pain Last Admin: 04/26/25 18:33 Dose: 1 appl Diazepam (Diazepam 10 Mg/2 Ml Cartridge) 10 mg IM BID PRN PRN Reason: refusal of lithium, mary floyd Last Admin: 04/11/25 09:56 Dose: 10 mg Haloperidol (Haloperidol 5 Mg Tablet) 5 mg PO Q4H PRN PRN Reason: agitation Hydroxyzine HCl (Hydroxyzine Hcl 25 Mg Tablet) 25 mg PO Q6H PRN PRN Reason: mild anxiety Ibuprofen (Ibuprofen 800 Mg Tablet) 800 mg PO Q6H PRN PRN Reason: pain (pain scale 1-10) Last Admin: 06/05/25 04:03 Dose: 800 mg Kapowsin Carbonate (Kapowsin Carbonate Er 300 Mg Tablet.Er) 600 mg PO DAILY [facility] Last Admin: 06/15/25 09:57 Dose: 600 mg Kapowsin Carbonate (Kapowsin Carbonate Er 450 Mg Tablet.Er) 900 mg PO DAILY@2300 [facility] Last Admin: 06/15/25 00:07 Dose: 900 mg Magnesium Hydroxide (Milk Of Magnesia 30 Ml Oral.Susp) 30 ml PO DAILY PRN PRN Reason: Constipation Methimazole (Methimazole 10 Mg Tablet) 10 mg PO DAILY [facility] Last Admin: 06/15/25 09:57 Dose: 10 mg Nicotine (Nicotine 21 Mg Patch.Td24) 21 mg TRANSDERMA DAILY PRN PRN Reason: nicotine cravings Last Admin: 04/12/25 17:06 Dose: 21 mg Nicotine Polacrilex (Nicotine Polacrilex Lozenge 2 Mg Lozenge) 2 mg BUCCAL Q1H PRN PRN Reason: Nicotine Cravings Last Admin: 04/30/25 08:49 Dose: 2 mg Patient Own Medication Excedrin 250/250/65mg 2 each PO Q8H PRN PRN Reason: Migraine Headache Last Admin: 04/18/25 18:03 Dose: 2 each Olanzapine (Olanzapine 10 Mg Vial) 10 mg IM BID PRN PRN Reason: refusal of PO, per maria luz's ord Last Admin: 04/11/25 09:56 Dose: 10 mg Olanzapine (Olanzapine Odt 10 Mg Tab.Rapdis) 10 mg TRANSLINGU DAILY@0 [facility] Last Admin: 06/15/25 00:07 Dose: 10 mg Paliperidone (Paliperidone Er 6 Mg Tab.Er.24) 6 mg PO BEDTIME [facility] Last Admin: 06/15/25 00:07 Dose: 6 mg Quetiapine Fumarate (Quetiapine Fumarate 200 Mg Tablet) 200 mg PO BEDTIME PRN PRN Reason: insomnia Last Admin: 04/16/25 04:21 Dose: 200 mg Allergies Allergies Allergy/AdvReac Type Severity Reaction Status Date / Time No Known Allergies Allergy Verified 03/26/25 14:24 Assessment & Plan Assessment & Plan (1) Graves disease: Status: Acute Code(s): E05.00 - Thyrotoxicosis with diffuse goiter without thyrotoxic crisis or storm Assessment and Plan: Hyperthyroidism/Graves disease. He will need follow up with endocrinology as an outpatient He will also need a primary care doctor referral as an outpatient Discussed with Dr. Bejarano, patient will need free T4 weekly Decrease Methimazole to 15 mgs daily for three days and then 10 mgs daily- discussed with patient he is aware of plan and rationale. TSH and free T4 every 4 weeks. No need to draw thyroid stimulation immunology or TSH receptor AB (2) Dental abscess: Status: Acute Code(s): K04.7 - Periapical abscess without sinus Assessment and Plan: Carious tooth/dental infection Recently treated with PEN VK 500 mg q.6 hours for 7 days Patient will need follow up with dentist on discharge for tooth extraction Motrin helping pain. (3) Becca: Status: Acute Code(s): F30.9 - Manic episode, unspecified Plan 03/26: offer lithium and seroquel for becca. continue methimazole and beta joanne for hyperthyroidism as started at [facility]. trend TFTs. 12b. 03/27: taking methimazole and beta joanne. refused HS meds last night, took morning meds today. continue to encourage medication compliance. 03/28: intermittently taking meds. wants all meds in morning. pressured, manic, paranoid delusions. encouraged to take lithium but states he will not. all meds ordered for morning. 03/29: Keeping to self. no groups. observed laying in bed listening to music on unit headphones. pleasant. Pt reports feeling good today and sleeping well. declined lithium and zyprexa. denies SI/HI/VH/AH. continue current tx plan. 03/30:Irritable. upset he was unable to use his personal hygiene products. Per nursing, pt threatened staff and squeezed tooth paste throughout unit hallway to show his frustration. Pt was able to calm down after speaking with security. declined medications. 03/31: Keeping to self. laying in bed listening to music. refused medications. calm today. Patient reports feeling great ; pt stated, nothing is wrong with me. I'm waiting so I can leave tomorrow. I'm hoping for the best . denies SI/HI/VH/AH. per nursing, slept 6 hours. Continue current tx plan. 04/01: variably calm on the unit versus highly agitated. paranoid delusions, irritability, lability continue. seems to believe MD has met him prior to the present hospitalization and is stalking him. believes brother behind conspiracy to have him psychiatrically hospitalized. has been refusing all medications, including for hyperthyroidism. informed he would be filed on. filed. continue to offer medications. 04/02: continues agitated, belittling, verbally aggressive, refusing all medications including for hyperthyroidism. continue to offer medication. 04/03: paranoid there is a conspiracy to hospitalize him. threatening to stick a stick in staff once he is released by patrol judge. insists his hyperthyroidism was cured at [facility]. asserts there is NOTHING wrong with him. continue to offer medication. 04/04: irritable, rejecting. verbally abuses MD and sends him away: see you on monday [in court]. continue to offer medication for thyroid condition and mental illness. 04/05 continue tx. suspicious and guarded, accusatory, verbal threats to hurt staff and peers 04/06 intrusive, posturing towards staff and peer who he thinks is not real and is an impostor, continues to make verbal threats to harm him but thinks that because he is not real he may not experience any pain. 04/07: threatening statements and behaviors of yesterday noted. pt sleeping this morning, dismissive of MD. 04/08: asleep days. committed and meds ordered by court. 04/09: on being informed of court order and MD insisting on meds, pt escalated to hurling food item in container against wall at high speed and saying he wished he could do the same to MD's head. pt eventually took court ordered meds PO. sensodyne and excedrin not available in pharmacy (pt requesting them). 04/10: continue tx. Pt accepting medication today. 04/11: Keeping to self. Lying in bed most of morning. Declined to meet with T/W. Pt stated, I'm fine. I don't need anything . Listening to headphones in room. Declined court ordered PO medications; received IM medications. Refused vital signs.continue tx plan. 04/12: got IMs yesterday, took PO this morning. sleepy, no concerns or complaints. 04/13: taking PO meds again. slept 7 hours. sleepy again mid morning refusing interview. continue current mgmt. 04/14: sleeping, rousable. denies being sedated or tired, says he's just bored. no questions or complaints. informed of need to check labs. check lithium level and thyroid labs tonight. 04/15: refusing labs. delusional re his brother harming him. verbally abusive toward MD. spat in floor. happy with improvement in proptosis. 04/16: Lying in bed. Calm. cooperative. guarded. Pt reports feeling tired this morning d/t poor sleep last night. Pt stated, I don't need anything. I didn't sleep well so I'm trying to catch up . denies any issues at this time. denies SI/HI/VH/AH. Continue current tx plan. 04/17: more calm today, less explosive. continue current mgmt. 04/18: continues more calm. tolerating moments of frustration without verbally attacking MD. slept only 2 hours overnight, however. continue current mgmt. 04/19 continues to push boundaries and limits with staff mike around cell phone- 04/20 - aggressive with staff and unpredictable- threw water pitcher at staff behind desk/-when seen by provider passive in bed-denying all compaints/sys- no insight 04/21: appears as per last week. more difficult behaviors around cell phone use, did throw pitcher of water at RN monday over phone use and was restrained. continue current mgmt. 04/22: continues to have conflict around cell phone use. consolidate zyprexa at HS to decrease daytime sedation. 1:1 allegra shift until peer he is accusing of not being a real patient and appears to be targeting discharges tomorrow. 04/23: lithium 0.6 on 600 BID. sleeping better, remains delusional (telling SW who is marginally younger than him that she could be his daughter). just changed zyprexa dosing as of last night. continue current regimen and observe for continued stabilization. T/C slight increase in lithium dosing. 04/24: Laying in bed. guarded. calm. did not want to get out of bed to meet with T/W. Pt reports feeling great today but declined to go into detail. listening to music on unit headphones. Pt stated, I'm fine. I don't need anything . denies any issues at this time. denies SI/HI/VH/AH. Continue current tx plan. 04/25: Laying in bed. keeping to self. calm. paranoid. Discussed incident that occurred with staff last evening. Pt stated, the counselor made up a lie yesterday. I said she looks like my ex-girlfriend. I know they are related. They want to make up a lie to irritate me. They are trying to talk to me so they can use recording devices and make me look some kind of way . listening to music on unit headphones. denies SI/HI/VH/AH. Continue current tx plan. 04/26: Continue current regimen and plans. Increase Zyprexa 20 mg q.h.s. fresh air break withheld 04/27: Continue current regimen and plans 04/28: somewhat less irritable and agitated than last week. however, over the weekend was claiming he was the father of a footballer on TV and also that a staff member is a twin of his ex-GF (and he pushed staff member). TFTs improving. continue current mgmt. 04/29: no change in presentation. continue current mgmt. 04/30: no irritable edge today. calm, pleasant. engaging in small talk. reality testing not pressed. continue current mgmt for now. 05/01: no change in presentation. continue current mgmt. 05/02: BPs coming down, DC beta joanne as pt has been refusing anyway. remains not antagonistic toward MD. using phone appropriately. continue current mgmt otherwise. 05/03 continue 05/04: remains delusional, irritable/labile when delusional system confronted. declines to sign TOMMY for [facility] records. continue current mgmt. 05/06: declining to meet with MD, but does meet with medical student. remains upset about yesterday's confrontation re his delusional system. 05/07: Active on unit. keeping to self. pacing unit hallway while listening to unit headphones. medication compliant. patient reports feeling good ; pt stated, I'm just waiting to leave here. I want to return to my life and do things like go grocery shopping . denies SI/HI/VH/AH. Continue current tx plan. 05/08: stable presentation, delusions not being brought to the surface daily. remains affectively improved from admission. continue current mgmt. 05/09: calm, pleasant. no questions or complaints. continue current mgmt. 05/10: no change in presentation. due to lack of improvement in dental infection Sx, DC PCN and start augmentin. 05/11: no change in presentation. continue current mgmt. 05/12: as for yesterday. dental pain improving a bit. 05/13: expressed to medical student that his brother poisoned him, causing his thyroid disease. no change in presentation. continue current mgmt. 05/14: Pacing unit hallway. keeping to self. patient reports feeling good today; denies any issues at this time. denies SI/HI/VH/AH. per nursing, slept 5 hours. Continue current tx plan. 05/15: slept 6 hours. otherwise isolative, difficult to engage. continue current mgmt. 05/16: slept 7 hours. as for yesterday otherwise. 05/17/25: Slept well, no issue with appetite, skinny and pretty tall. Compliant with medication. No side effects Calm and pleasant upon approach. Some what paranoid. Tangential, however denies other safety concerns. Questions if he is discharging soon. He is on antibiotic for 7 days for mouth pain/tooth pain. We will finish the 7 course up in antibiotic after tonight dose. Then discontinue. 05/18/25: Slept for 5 hours plus hours this morning. In bed most of the shift, no behavior issues. Denies other safety concerns. 05/19: in bed days, up eves. no change in presentation. continue current mgmt. 05/20: no change in presentation. check labs. 05/21: lithium low, TFTs mixed and not all back. increase lithium from 600 BID to 600/900. trend BUN/Cr, with slight elevation. otherwise continue current mgmt. 05/22: no change in presentation. continue current mgmt. 05/23: does not deny someone stole his sperm and impregnated his landlord's child with it. irritable. c/o dental pain, antibx restarted. otherwise continue current mgmt. 05/14: no change in mgt 05/25: more isolative today; no change in mgt 05/26: decreases in methimazole noted. continue psych regimen as is. pt refused to interact with MD today. 05/27: i'm sleeping. no change in presentation. labs tonight. 05/28: no change in behavior. lithium 0.66, BUN stable. continue current mgmt. 05/29: irritable. continue current mgmt. 05/30: no longer in single room. still not engaging, sleeping days. continue current mgmt. 05/31:laying in bed. declined to meet with T/W. pt stated, I want to sleep. I didn't sleep enough . Pt encouraged to reach out to staff if he needs anything. Continue current tx plan. 06/01: Similar to yesterday. laying in bed. Irritable. declined to meet with T/W and pulled bed sheets over head. pt stated, I don't want to talk. I want to sleep . difficult to engage. Continue current tx plan. 06/02: Similar to yesterday. laying in bed. Irritable. declined to meet with T/W. Observed getting drink from kitchen; T/W approached pt and asked if they could speak. patient declined to acknowledge T/W and walked past. Continue current tx plan. 06/03: no change in behavior. continue tx plan. 06/04/25: Passive engaged in the assessment, in bed mostly sleeping this morning which could be interfere with his nighttime. Cover body under the blanket Slept for 4-5 hours last night. Was medication compliant, attended no groups, isolative to self in room. No SI/SIB/HI/AVH expressed. 06/05: continue tx plan. 06/06: reports feeling fine ; continues guarded. difficult to engage. declining to meet with T/W. continue tx plan. 06/07/25: Slept for 4 hours at night, but has been sleeping most of the day yesterday as well. Spent majority of the shift in bed, was medication compliant. Passive engaged in the conversation. He said he will try to change the sleeping pattern so that he can be awake more during the daytime. Appear to be sedated in the morning. No safety behavior. 06/08/25: Slept for 3-4 hours last night, compliant with medications. Denies side effects, denies other safety concerns. Continued to encourage patient to up and down more than on the unit he spent most of the day sleeping. He is pleasant upon approach. No other behavior issues. Denied voices/hallucinations. Suicide thoughts or homicidal thoughts. 06/09: sleeping, minimally rousable. denies problems. continue current mgmt. 06/10: sleeping all day, up most of the night. minimally rousable. denies problems. continue current mgmt. per JAMAICA Arrington: Jean said when he leaves he can return to [facility]. he was living with a lady there and can go back. He plans to get a job to pay off his debt. He said he owes money because they sent him back here due to losing his passport and he owes them money for the temporary emergency passport and the flight back to the . so his main focus is to get a job. he said he will try things here first and if it doesn't work out he plans to return to [place]. 06/11/25: Passively engaged in conversation while in bed sleeping/resting. Able to answer question appropriately, but seems to be minimized. Denies SI/SIB/HI/AVH. He slept 5 hours last night, spent most of the day in bed sleeping. Attempted to no groups, observed out to the afternoon in the subramanian near the nurse station. No change in presentation. Encourage groups,up and engaged in groups. 06/12: not engaging. no complaints or questions re med changes. cross-taper zyprexa in favor of invega, give MONTERO invega. tonight, decrease zyprexa to 15 mg and start invega 3 mg. otherwise continue current mgmt. 06/13: continues avoidant and disengaged. denies side effects from med change last night. informed cross-titration will advance tonight. decrease zyprexa to 10 mg tonight, increase paliperidone to 6 mg. plan to continue by 5 mg zyprexa and 3 mg paliperidone increments every several days as tolerated until zyprexa DCed and paliperidone at 12 mg QHS. once it is established pt is tolerating PO Paliperidone, invega sustenna to be administered. 06/14: Continue current regimen and plans 06/15: Continue current plans and regimen Reason for continued inpatient stay Substantial Risk for: med/psych decompensation Time Spent With Patient Time: Total time managing care of this patient today ____ minutes.
[2025-06-15 22:55] VITALS: RESP 16
[2025-06-16] MEDS: OLANZapine ODT 10 MG TAB.RAPDIS TRANSLINGU (00:12)
[2025-06-16 07:10] VITALS: BP 149/85; PULSE 80; RESP 16; TEMP 36.4; O2SAT 99
--- NOTE | 2025-06-16 12:39 | HO.PSYCHPN ---
Subjective Subjective Date of Service: 06/16/25 Reason For Visit: psychotic disorder Interim History: irritable with med change. denies any problems with it, however. pulls blanket over face. per staff, slept later than usual yesterday. taking meds. reports no sleep at all 2 nights ago. slept 3-4 hours last night. Mental Status Exam Mental Status Exam Narrative: He is under blanket, in bed sleeping. Passive. not engaging in assessment. Denies safety concerns. No SI//SIB/HI/AVH expressed. Diagnostics Vital Signs (24Hr): Vital Signs - 24 hr 06/15/25 22:55 06/16/25 07:10 Temperature 97.6 F Pulse Rate 80 Respiratory Rate 16 16 Blood Pressure 149/85 H Pulse Oximetry 99 Oxygen Delivery Method Room Air BMI result Body Mass Index 24.0 Labs 03/27/25 09:44 05/27/25 22:58 Medications Medications Current Medications Acetaminophen (Acetaminophen 325 Mg Tablet) 650 mg PO Q6H PRN PRN Reason: Headache/Pain, Scale 1-10 Last Admin: 04/01/25 23:20 Dose: 650 mg Al Hydroxide/Mg Hydroxide (Magnesium Hydrox/Alum Hydrox 30 Ml Oral.Susp) 30 ml PO Q6H PRN PRN Reason: Heartburn/Nausea Benzocaine (Benzocaine 20 % Oral Gel 14 Gm Tube) 1 appl MUCOUS MEM QID PRN; Protocol PRN Reason: Mouth Sore Pain Last Admin: 04/26/25 18:33 Dose: 1 appl Diazepam (Diazepam 10 Mg/2 Ml Cartridge) 10 mg IM BID PRN PRN Reason: refusal of lithium, per everett Last Admin: 04/11/25 09:56 Dose: 10 mg Haloperidol (Haloperidol 5 Mg Tablet) 5 mg PO Q4H PRN PRN Reason: agitation Hydroxyzine HCl (Hydroxyzine Hcl 25 Mg Tablet) 25 mg PO Q6H PRN PRN Reason: mild anxiety Ibuprofen (Ibuprofen 800 Mg Tablet) 800 mg PO Q6H PRN PRN Reason: pain (pain scale 1-10) Last Admin: 06/05/25 04:03 Dose: 800 mg Espy Carbonate (Espy Carbonate Er 300 Mg Tablet.Er) 600 mg PO [facility]ILY [facility] Last Admin: 06/16/25 09:40 Dose: 600 mg Espy Carbonate (Espy Carbonate Er 450 Mg Tablet.Er) 900 mg PO DAILY@2300 [facility] Last Admin: 06/16/25 00:12 Dose: 900 mg Magnesium Hydroxide (Milk Of Magnesia 30 Ml Oral.Susp) 30 ml PO DAILY PRN PRN Reason: Constipation Methimazole (Methimazole 10 Mg Tablet) 10 mg PO [facility] Last Admin: 06/16/25 09:40 Dose: 10 mg Nicotine (Nicotine 21 Mg Patch.Td24) 21 mg TRANSDERMA DAILY PRN PRN Reason: nicotine cravings Last Admin: 04/12/25 17:06 Dose: 21 mg Nicotine Polacrilex (Nicotine Polacrilex Lozenge 2 Mg Lozenge) 2 mg BUCCAL Q1H PRN PRN Reason: Nicotine Cravings Last Admin: 04/30/25 08:49 Dose: 2 mg Patient Own Medication Excedrin 250/250/65mg 2 each PO Q8H PRN PRN Reason: Migraine Headache Last Admin: 04/18/25 18:03 Dose: 2 each Olanzapine (Olanzapine 10 Mg Vial) 10 mg IM BID PRN PRN Reason: refusal of PO, per maria luz's ord Last Admin: 04/11/25 09:56 Dose: 10 mg Olanzapine (Olanzapine Odt 10 Mg Tab.Rapdis) 5 mg TRANSLINGU DAILY@[facility] Paliperidone (Paliperidone Er 9 Mg Tab.Er.24) 9 mg PO BEDTIME KRISTAL Quetiapine Fumarate (Quetiapine Fumarate 200 Mg Tablet) 200 mg PO BEDTIME PRN PRN Reason: insomnia Last Admin: 04/16/25 04:21 Dose: 200 mg Allergies Allergies Allergy/AdvReac Type Severity Reaction Status Date / Time No Known Allergies Allergy Verified 03/26/25 14:24 Assessment & Plan Assessment & Plan (1) Graves disease: Status: Acute Code(s): E05.00 - Thyrotoxicosis with diffuse goiter without thyrotoxic crisis or storm Assessment and Plan: Hyperthyroidism/Graves disease. He will need follow up with endocrinology as an outpatient He will also need a primary care doctor referral as an outpatient Discussed with Dr. Bejarano, patient will need free T4 weekly Decrease Methimazole to 15 mgs daily for three days and then 10 mgs daily- discussed with patient he is aware of plan and rationale. TSH and free T4 every 4 weeks. No need to draw thyroid stimulation immunology or TSH receptor AB (2) Dental abscess: Status: Acute Code(s): K04.7 - Periapical abscess without sinus Assessment and Plan: Carious tooth/dental infection Recently treated with PEN VK 500 mg q.6 hours for 7 days Patient will need follow up with dentist on discharge for tooth extraction Motrin helping pain. (3) Becca: Status: Acute Code(s): F30.9 - Manic episode, unspecified Plan 03/26: offer lithium and seroquel for becca. continue methimazole and beta joanne for hyperthyroidism as started at [facility]. trend TFTs. 12b. 03/27: taking methimazole and beta joanne. refused HS meds last night, took morning meds today. continue to encourage medication compliance. 03/28: intermittently taking meds. wants all meds in morning. pressured, manic, paranoid delusions. encouraged to take lithium but states he will not. all meds ordered for morning. 03/29: Keeping to self. no groups. observed laying in bed listening to music on unit headphones. pleasant. Pt reports feeling good today and sleeping well. declined lithium and zyprexa. denies SI/HI/VH/AH. continue current tx plan. 03/30:Irritable. upset he was unable to use his personal hygiene products. Per nursing, pt threatened staff and squeezed tooth paste throughout unit hallway to show his frustration. Pt was able to calm down after speaking with security. declined medications. 03/31: Keeping to self. laying in bed listening to music. refused medications. calm today. Patient reports feeling great ; pt stated, nothing is wrong with me. I'm waiting so I can leave tomorrow. I'm hoping for the best . denies SI/HI/VH/AH. per nursing, slept 6 hours. Continue current tx plan. 04/01: variably calm on the unit versus highly agitated. paranoid delusions, irritability, lability continue. seems to believe MD has met him prior to the present hospitalization and is stalking him. believes brother behind conspiracy to have him psychiatrically hospitalized. has been refusing all medications, including for hyperthyroidism. informed he would be filed on. filed. continue to offer medications. 04/02: continues agitated, belittling, verbally aggressive, refusing all medications including for hyperthyroidism. continue to offer medication. 04/03: paranoid there is a conspiracy to hospitalize him. threatening to stick a stick in staff once he is released by production team leader. insists his hyperthyroidism was cured at [facility]. asserts there is NOTHING wrong with him. continue to offer medication. 04/04: irritable, rejecting. verbally abuses MD and sends him away: see you on monday [in court]. continue to offer medication for thyroid condition and mental illness. 04/05 continue tx. suspicious and guarded, accusatory, verbal threats to hurt staff and peers 04/06 intrusive, posturing towards staff and peer who he thinks is not real and is an impostor, continues to make verbal threats to harm him but thinks that because he is not real he may not experience any pain. 04/07: threatening statements and behaviors of yesterday noted. pt sleeping this morning, dismissive of MD. 04/08: asleep days. committed and meds ordered by court. 04/09: on being informed of court order and MD insisting on meds, pt escalated to hurling food item in container against wall at high speed and saying he wished he could do the same to MD's head. pt eventually took court ordered meds PO. sensodyne and excedrin not available in pharmacy (pt requesting them). 04/10: continue tx. Pt accepting medication today. 04/11: Keeping to self. Lying in bed most of morning. Declined to meet with T/W. Pt stated, I'm fine. I don't need anything . Listening to headphones in room. Declined court ordered PO medications; received IM medications. Refused vital signs.continue tx plan. 04/12: got IMs yesterday, took PO this morning. sleepy, no concerns or complaints. 04/13: taking PO meds again. slept 7 hours. sleepy again mid morning refusing interview. continue current mgmt. 04/14: sleeping, rousable. denies being sedated or tired, says he's just bored. no questions or complaints. informed of need to check labs. check lithium level and thyroid labs tonight. 04/15: refusing labs. delusional re his brother harming him. verbally abusive toward MD. spat in floor. happy with improvement in proptosis. 04/16: Lying in bed. Calm. cooperative. guarded. Pt reports feeling tired this morning d/t poor sleep last night. Pt stated, I don't need anything. I didn't sleep well so I'm trying to catch up . denies any issues at this time. denies SI/HI/VH/AH. Continue current tx plan. 04/17: more calm today, less explosive. continue current mgmt. 04/18: continues more calm. tolerating moments of frustration without verbally attacking MD. slept only 2 hours overnight, however. continue current mgmt. 04/19 continues to push boundaries and limits with staff mike around cell phone- 04/20 - aggressive with staff and unpredictable- threw water pitcher at staff behind desk/-when seen by provider passive in bed-denying all compaints/sys- no insight 04/21: appears as per last week. more difficult behaviors around cell phone use, did throw pitcher of water at RN monday over phone use and was restrained. continue current mgmt. 04/22: continues to have conflict around cell phone use. consolidate zyprexa at HS to decrease daytime sedation. 1:1 allegra shift until peer he is accusing of not being a real patient and appears to be targeting discharges tomorrow. 04/23: lithium 0.6 on 600 BID. sleeping better, remains delusional (telling SW who is marginally younger than him that she could be his daughter). just changed zyprexa dosing as of last night. continue current regimen and observe for continued stabilization. T/C slight increase in lithium dosing. 04/24: Laying in bed. guarded. calm. did not want to get out of bed to meet with T/W. Pt reports feeling great today but declined to go into detail. listening to music on unit headphones. Pt stated, I'm fine. I don't need anything . denies any issues at this time. denies SI/HI/VH/AH. Continue current tx plan. 04/25: Laying in bed. keeping to self. calm. paranoid. Discussed incident that occurred with staff last evening. Pt stated, the counselor made up a lie yesterday. I said she looks like my ex-girlfriend. I know they are related. They want to make up a lie to irritate me. They are trying to talk to me so they can use recording devices and make me look some kind of way . listening to music on unit headphones. denies SI/HI/VH/AH. Continue current tx plan. 04/26: Continue current regimen and plans. Increase Zyprexa 20 mg q.h.s. fresh air break withheld 04/27: Continue current regimen and plans 04/28: somewhat less irritable and agitated than last week. however, over the weekend was claiming he was the father of a footballer on TV and also that a staff member is a twin of his ex-GF (and he pushed staff member). TFTs improving. continue current mgmt. 04/29: no change in presentation. continue current mgmt. 04/30: no irritable edge today. calm, pleasant. engaging in small talk. reality testing not pressed. continue current mgmt for now. 05/01: no change in presentation. continue current mgmt. 05/02: BPs coming down, DC beta joanne as pt has been refusing anyway. remains not antagonistic toward MD. using phone appropriately. continue current mgmt otherwise. 05/03 continue 05/04: remains delusional, irritable/labile when delusional system confronted. declines to sign TOMMY for [facility] records. continue current mgmt. 05/06: declining to meet with MD, but does meet with medical student. remains upset about yesterday's confrontation re his delusional system. 05/07: Active on unit. keeping to self. pacing unit hallway while listening to unit headphones. medication compliant. patient reports feeling good ; pt stated, I'm just waiting to leave here. I want to return to my life and do things like go grocery shopping . denies SI/HI/VH/AH. Continue current tx plan. 05/08: stable presentation, delusions not being brought to the surface daily. remains affectively improved from admission. continue current mgmt. 05/09: calm, pleasant. no questions or complaints. continue current mgmt. 05/10: no change in presentation. due to lack of improvement in dental infection Sx, DC PCN and start augmentin. 05/11: no change in presentation. continue current mgmt. 05/12: as for yesterday. dental pain improving a bit. 05/13: expressed to medical student that his brother poisoned him, causing his thyroid disease. no change in presentation. continue current mgmt. 05/14: Pacing unit hallway. keeping to self. patient reports feeling good today; denies any issues at this time. denies SI/HI/VH/AH. per nursing, slept 5 hours. Continue current tx plan. 05/15: slept 6 hours. otherwise isolative, difficult to engage. continue current mgmt. 05/16: slept 7 hours. as for yesterday otherwise. 05/17/25: Slept well, no issue with appetite, skinny and pretty tall. Compliant with medication. No side effects Calm and pleasant upon approach. Some what paranoid. Tangential, however denies other safety concerns. Questions if he is discharging soon. He is on antibiotic for 7 days for mouth pain/tooth pain. We will finish the 7 course up in antibiotic after tonight dose. Then discontinue. 05/18/25: Slept for 5 hours plus hours this morning. In bed most of the shift, no behavior issues. Denies other safety concerns. 05/19: in bed days, up eves. no change in presentation. continue current mgmt. 05/20: no change in presentation. check labs. 05/21: lithium low, TFTs mixed and not all back. increase lithium from 600 BID to 600/900. trend BUN/Cr, with slight elevation. otherwise continue current mgmt. 05/22: no change in presentation. continue current mgmt. 05/23: does not deny someone stole his sperm and impregnated his landlord's child with it. irritable. c/o dental pain, antibx restarted. otherwise continue current mgmt. 05/14: no change in mgt 05/25: more isolative today; no change in mgt 05/26: decreases in methimazole noted. continue psych regimen as is. pt refused to interact with MD today. 05/27: i'm sleeping. no change in presentation. labs tonight. 05/28: no change in behavior. lithium 0.66, BUN stable. continue current mgmt. 05/29: irritable. continue current mgmt. 05/30: no longer in single room. still not engaging, sleeping days. continue current mgmt. 05/31:laying in bed. declined to meet with T/W. pt stated, I want to sleep. I didn't sleep enough . Pt encouraged to reach out to staff if he needs anything. Continue current tx plan. 06/01: Similar to yesterday. laying in bed. Irritable. declined to meet with T/W and pulled bed sheets over head. pt stated, I don't want to talk. I want to sleep . difficult to engage. Continue current tx plan. 06/02: Similar to yesterday. laying in bed. Irritable. declined to meet with T/W. Observed getting drink from kitchen; T/W approached pt and asked if they could speak. patient declined to acknowledge T/W and walked past. Continue current tx plan. 06/03: no change in behavior. continue tx plan. 06/04/25: Passive engaged in the assessment, in bed mostly sleeping this morning which could be interfere with his nighttime. Cover body under the blanket Slept for 4-5 hours last night. Was medication compliant, attended no groups, isolative to self in room. No SI/SIB/HI/AVH expressed. 06/05: continue tx plan. 06/06: reports feeling fine ; continues guarded. difficult to engage. declining to meet with T/W. continue tx plan. 06/07/25: Slept for 4 hours at night, but has been sleeping most of the day yesterday as well. Spent majority of the shift in bed, was medication compliant. Passive engaged in the conversation. He said he will try to change the sleeping pattern so that he can be awake more during the daytime. Appear to be sedated in the morning. No safety behavior. 06/08/25: Slept for 3-4 hours last night, compliant with medications. Denies side effects, denies other safety concerns. Continued to encourage patient to up and down more than on the unit he spent most of the day sleeping. He is pleasant upon approach. No other behavior issues. Denied voices/hallucinations. Suicide thoughts or homicidal thoughts. 06/09: sleeping, minimally rousable. denies problems. continue current mgmt. 06/10: sleeping all day, up most of the night. minimally rousable. denies problems. continue current mgmt. per JAMAICA Arrington: Jean said when he leaves he can return to [place]. he was living with a lady there and can go back. He plans to get a job to pay off his debt. He said he owes money because they sent him back here due to losing his passport and he owes them money for the temporary emergency passport and the flight back to the [place]. so his main focus is to get a job. he said he will try things here first and if it doesn't work out he plans to return to [place]. 06/11/25: Passively engaged in conversation while in bed sleeping/resting. Able to answer question appropriately, but seems to be minimized. Denies SI/SIB/HI/AVH. He slept 5 hours last night, spent most of the day in bed sleeping. Attempted to no groups, observed out to the afternoon in the subramanian near the nurse station. No change in presentation. Encourage groups,up and engaged in groups. 06/12: not engaging. no complaints or questions re med changes. cross-taper zyprexa in favor of invega, give MONTERO invega. tonight, decrease zyprexa to 15 mg and start invega 3 mg. otherwise continue current mgmt. 06/13: continues avoidant and disengaged. denies side effects from med change last night. informed cross-titration will advance tonight. decrease zyprexa to 10 mg tonight, increase paliperidone to 6 mg. plan to continue by 5 mg zyprexa and 3 mg paliperidone increments every several days as tolerated until zyprexa DCed and paliperidone at 12 mg QHS. once it is established pt is tolerating PO Paliperidone, invega sustenna to be administered. 06/14: Continue current regimen and plans 06/15: Continue current plans and regimen 06/16: irritable re neuroleptic change. denies side effects or problems with it, however. minimally engageable. increase invega to 9 QHS and decrfease zyprexa to 5 QHS. Reason for continued inpatient stay Substantial Risk for: harm to self, harm to others, inability to function, rapid decompensation and med/psych decompensation Time Spent With Patient Time: Total time managing care of this patient today ____ minutes.
[2025-06-16 20:44] VITALS: BP 139/84; PULSE 107; RESP 16; TEMP 37; O2SAT 100
[2025-06-16] MEDS: Paliperidone ER 9 MG TAB.ER.24 PO (23:38)
[2025-06-16] MEDS: OLANZapine ODT 10 MG TAB.RAPDIS 5 MG TRANSLINGU (23:39)
[2025-06-17 10:35] VITALS: RESP 15
--- NOTE | 2025-06-17 21:29 | P.PNPSI_ITS ---
Subjective Subjective Date of Service: 06/17/25 Reason For Visit: psychotic disorder Subjective Notes: [place] Order and Section 8 Healthcare Proxy: No Guardianship: No Medical Problems Affecting Mental Status: No Interim History: Medical record and nursing notes reviewed; case discussed during rounds with team/nursing staff, and met with patient for supportive therapy/psychoeducation, as well as medication management. He slept for 4-5 hours last, was medication compliant, per nursing patient was out from most of the day yesterday, pacing at times, trying to fix his sleeping pattern. Met with patient in his room, he did not not wake up for breakfast, but he is engaged in conversation today, I have not talk to him for a long time like he does today. Reports that he does not like the new medication because slow my thoughts down . He believe that there is nothing wrong with him. He does not need other medications. He only needs the lithium and that he is not stupid, that he knows what is wrong what is right. Denies other safety concerns, denied depression or anxiety. Continued to be having poor insight and poor judgment. Medication Compliance: Yes Side effects from medications: Yes (Reports the new medication slow his thoughts staff) Attending Groups: No Review of Systems Acute medical concerns: No Medical Review of Systems: unchanged Review of Systems Review of Systems Constitutional: Denies fatigue and Denies fever(s) Cardiovascular: Denies chest pain and Denies dyspnea Respiratory: Denies dyspnea Gastrointestinal: Denies abdominal pain Psychiatric: denies suicidal ideation Endocrine: Denies fatigue Yes all other systems are reviewed and are negative Mental Status Exam Mental Status Exam Narrative: He is in bed cover self with a blanket from the shoulder, was in bed resting, but engaged in conversation. Reports he is not sleeping well the night before, denies SI/SIB/HI/AVH, hyper verbal, tangential, poor insight and judgment, irritable over the medication change, appeared to be paranoid, Denies safety concerns. No SI//SIB/HI/AVH expressed. Diagnostics Vital Signs (24Hr): Vital Signs - 24 hr 06/17/25 10:35 Respiratory Rate 15 BMI result Body Mass Index 24.0 Labs 03/27/25 09:44 05/27/25 22:58 Medications Medications Current Medications Acetaminophen (Acetaminophen 325 Mg Tablet) 650 mg PO Q6H PRN PRN Reason: Headache/Pain, Scale 1-10 Last Admin: 04/01/25 23:20 Dose: 650 mg Al Hydroxide/Mg Hydroxide (Magnesium Hydrox/Alum Hydrox 30 Ml Oral.Susp) 30 ml PO Q6H PRN PRN Reason: Heartburn/Nausea Benzocaine (Benzocaine 20 % Oral Gel 14 Gm Tube) 1 appl MUCOUS MEM QID PRN; Protocol PRN Reason: Mouth Sore Pain Last Admin: 04/26/25 18:33 Dose: 1 appl Diazepam (Diazepam 10 Mg/2 Ml Cartridge) 10 mg IM BID PRN PRN Reason: refusal of lithium, per everett Last Admin: 04/11/25 09:56 Dose: 10 mg Haloperidol (Haloperidol 5 Mg Tablet) 5 mg PO Q4H PRN PRN Reason: agitation Hydroxyzine HCl (Hydroxyzine Hcl 25 Mg Tablet) 25 mg PO Q6H PRN PRN Reason: mild anxiety Ibuprofen (Ibuprofen 800 Mg Tablet) 800 mg PO Q6H PRN PRN Reason: pain (pain scale 1-10) Last Admin: 06/05/25 04:03 Dose: 800 mg [place] Carbonate ([place] Carbonate Er 300 Mg Tablet.Er) 600 mg PO DAILY [facility] Last Admin: 06/17/25 10:26 Dose: 600 mg [place] Carbonate ([place] Carbonate Er 450 Mg Tablet.Er) 900 mg PO DAILY@2300 [facility] Last Admin: 06/16/25 23:38 Dose: 900 mg Magnesium Hydroxide (Milk Of Magnesia 30 Ml Oral.Susp) 30 ml PO DAILY PRN PRN Reason: Constipation Methimazole (Methimazole 10 Mg Tablet) 10 mg PO DAILY [facility] Last Admin: 06/17/25 10:26 Dose: 10 mg Nicotine (Nicotine 21 Mg Patch.Td24) 21 mg TRANSDERMA DAILY PRN PRN Reason: nicotine cravings Last Admin: 04/12/25 17:06 Dose: 21 mg Nicotine Polacrilex (Nicotine Polacrilex Lozenge 2 Mg Lozenge) 2 mg BUCCAL Q1H PRN PRN Reason: Nicotine Cravings Last Admin: 04/30/25 08:49 Dose: 2 mg Patient Own Medication Excedrin 250/250/65mg 2 each PO Q8H PRN PRN Reason: Migraine Headache Last Admin: 04/18/25 18:03 Dose: 2 each Olanzapine (Olanzapine 10 Mg Vial) 10 mg IM BID PRN PRN Reason: refusal of PO, per maria luz's ord Last Admin: 04/11/25 09:56 Dose: 10 mg Olanzapine (Olanzapine Odt 10 Mg Tab.Rapdis) 5 mg TRANSLINGU DAILY@2300 [facility] Last Admin: 06/16/25 23:39 Dose: 5 mg Paliperidone (Paliperidone Er 9 Mg Tab.Er.24) 9 mg PO BEDTIME [facility] Last Admin: 06/16/25 23:38 Dose: 9 mg Quetiapine Fumarate (Quetiapine Fumarate 200 Mg Tablet) 200 mg PO BEDTIME PRN PRN Reason: insomnia Last Admin: 04/16/25 04:21 Dose: 200 mg Allergies Allergies Allergy/AdvReac Type Severity Reaction Status Date / Time No Known Allergies Allergy Verified 03/26/25 14:24 Assessment & Plan Assessment & Plan (1) Graves disease: Status: Acute Code(s): E05.00 - Thyrotoxicosis with diffuse goiter without thyrotoxic crisis or storm Assessment and Plan: Hyperthyroidism/Graves disease. He will need follow up with endocrinology as an outpatient He will also need a primary care doctor referral as an outpatient Discussed with Dr. Bejarano, patient will need free T4 weekly Decrease Methimazole to 15 mgs daily for three days and then 10 mgs daily- discussed with patient he is aware of plan and rationale. TSH and free T4 every 4 weeks. No need to draw thyroid stimulation immunology or TSH receptor AB (2) Dental abscess: Status: Acute Code(s): K04.7 - Periapical abscess without sinus Assessment and Plan: Carious tooth/dental infection Recently treated with PEN VK 500 mg q.6 hours for 7 days Patient will need follow up with dentist on discharge for tooth extraction Motrin helping pain. (3) Becca: Status: Acute Code(s): F30.9 - Manic episode, unspecified Plan 03/26: offer lithium and seroquel for becca. continue methimazole and beta joanne for hyperthyroidism as started at [facility]. trend TFTs. 12b. 03/27: taking methimazole and beta joanne. refused HS meds last night, took morning meds today. continue to encourage medication compliance. 03/28: intermittently taking meds. wants all meds in morning. pressured, manic, paranoid delusions. encouraged to take lithium but states he will not. all meds ordered for morning. 03/29: Keeping to self. no groups. observed laying in bed listening to music on unit headphones. pleasant. Pt reports feeling good today and sleeping well. declined lithium and zyprexa. denies SI/HI/VH/AH. continue current tx plan. 03/30:Irritable. upset he was unable to use his personal hygiene products. Per nursing, pt threatened staff and squeezed tooth paste throughout unit hallway to show his frustration. Pt was able to calm down after speaking with security. declined medications. 03/31: Keeping to self. laying in bed listening to music. refused medications. calm today. Patient reports feeling great ; pt stated, nothing is wrong with me. I'm waiting so I can leave tomorrow. I'm hoping for the best . denies SI/HI/VH/AH. per nursing, slept 6 hours. Continue current tx plan. 04/01: variably calm on the unit versus highly agitated. paranoid delusions, irritability, lability continue. seems to believe MD has met him prior to the present hospitalization and is stalking him. believes brother behind conspiracy to have him psychiatrically hospitalized. has been refusing all medications, including for hyperthyroidism. informed he would be filed on. filed. continue to offer medications. 04/02: continues agitated, belittling, verbally aggressive, refusing all medications including for hyperthyroidism. continue to offer medication. 04/03: paranoid there is a conspiracy to hospitalize him. threatening to stick a stick in staff once he is released by [employer]im[employer] ticket seller. insists his hyperthyroidism was cured at [facility]. asserts there is NOTHING wrong with him. continue to offer medication. 04/04: irritable, rejecting. verbally abuses MD and sends him away: see you on monday [in court]. continue to offer medication for thyroid condition and mental illness. 04/05 continue tx. suspicious and guarded, accusatory, verbal threats to hurt staff and peers 04/06 intrusive, posturing towards staff and peer who he thinks is not real and is an impostor, continues to make verbal threats to harm him but thinks that because he is not real he may not experience any pain. 04/07: threatening statements and behaviors of yesterday noted. pt sleeping this morning, dismissive of MD. 04/08: asleep days. committed and meds ordered by court. 04/09: on being informed of court order and MD insisting on meds, pt escalated to hurling food item in container against wall at high speed and saying he wished he could do the same to MD's head. pt eventually took court ordered meds PO. sensodyne and excedrin not available in pharmacy (pt requesting them). 04/10: continue tx. Pt accepting medication today. 04/11: Keeping to self. Lying in bed most of morning. Declined to meet with T/W. Pt stated, I'm fine. I don't need anything . Listening to headphones in room. Declined court ordered PO medications; received IM medications. Refused vital signs.continue tx plan. 04/12: got IMs yesterday, took PO this morning. sleepy, no concerns or complaints. 04/13: taking PO meds again. slept 7 hours. sleepy again mid morning refusing interview. continue current mgmt. 04/14: sleeping, rousable. denies being sedated or tired, says he's just bored. no questions or complaints. informed of need to check labs. check lithium level and thyroid labs tonight. 04/15: refusing labs. delusional re his brother harming him. verbally abusive toward MD. spat in floor. happy with improvement in proptosis. 04/16: Lying in bed. Calm. cooperative. guarded. Pt reports feeling tired this morning d/t poor sleep last night. Pt stated, I don't need anything. I didn't sleep well so I'm trying to catch up . denies any issues at this time. denies SI/HI/VH/AH. Continue current tx plan. 04/17: more calm today, less explosive. continue current mgmt. 04/18: continues more calm. tolerating moments of frustration without verbally attacking MD. slept only 2 hours overnight, however. continue current mgmt. 04/19 continues to push boundaries and limits with staff mike around cell phone- 04/20 - aggressive with staff and unpredictable- threw water pitcher at staff behind desk/-when seen by provider passive in bed-denying all compaints/sys- no insight 04/21: appears as per last week. more difficult behaviors around cell phone use, did throw pitcher of water at RN monday over phone use and was restrained. continue current mgmt. 04/22: continues to have conflict around cell phone use. consolidate zyprexa at HS to decrease daytime sedation. 1:1 allegra shift until peer he is accusing of not being a real patient and appears to be targeting discharges tomorrow. 04/23: lithium 0.6 on 600 BID. sleeping better, remains delusional (telling SW who is marginally younger than him that she could be his daughter). just changed zyprexa dosing as of last night. continue current regimen and observe for continued stabilization. T/C slight increase in lithium dosing. 04/24: Laying in bed. guarded. calm. did not want to get out of bed to meet with T/W. Pt reports feeling great today but declined to go into detail. listening to music on unit headphones. Pt stated, I'm fine. I don't need anything . denies any issues at this time. denies SI/HI/VH/AH. Continue current tx plan. 04/25: Laying in bed. keeping to self. calm. paranoid. Discussed incident that occurred with staff last evening. Pt stated, the counselor made up a lie yesterday. I said she looks like my ex-girlfriend. I know they are related. They want to make up a lie to irritate me. They are trying to talk to me so they can use recording devices and make me look some kind of way . listening to music on unit headphones. denies SI/HI/VH/AH. Continue current tx plan. 04/26: Continue current regimen and plans. Increase Zyprexa 20 mg q.h.s. fresh air break withheld 04/27: Continue current regimen and plans 04/28: somewhat less irritable and agitated than last week. however, over the weekend was claiming he was the father of a footballer on TV and also that a staff member is a twin of his ex-GF (and he pushed staff member). TFTs improving. continue current mgmt. 04/29: no change in presentation. continue current mgmt. 04/30: no irritable edge today. calm, pleasant. engaging in small talk. reality testing not pressed. continue current mgmt for now. 05/01: no change in presentation. continue current mgmt. 05/02: BPs coming down, DC beta joanne as pt has been refusing anyway. remains not antagonistic toward MD. using phone appropriately. continue current mgmt otherwise. 05/03 continue 05/04: remains delusional, irritable/labile when delusional system confronted. declines to sign TOMMY for [facility] records. continue current mgmt. 05/06: declining to meet with MD, but does meet with medical student. remains upset about yesterday's confrontation re his delusional system. 05/07: Active on unit. keeping to self. pacing unit hallway while listening to unit headphones. medication compliant. patient reports feeling good ; pt stated, I'm just waiting to leave here. I want to return to my life and do things like go grocery shopping . denies SI/HI/VH/AH. Continue current tx plan. 05/08: stable presentation, delusions not being brought to the surface daily. remains affectively improved from admission. continue current mgmt. 05/09: calm, pleasant. no questions or complaints. continue current mgmt. 05/10: no change in presentation. due to lack of improvement in dental infection Sx, DC PCN and start augmentin. 05/11: no change in presentation. continue current mgmt. 05/12: as for yesterday. dental pain improving a bit. 05/13: expressed to medical student that his brother poisoned him, causing his thyroid disease. no change in presentation. continue current mgmt. 05/14: Pacing unit hallway. keeping to self. patient reports feeling good today; denies any issues at this time. denies SI/HI/VH/AH. per nursing, slept 5 hours. Continue current tx plan. 05/15: slept 6 hours. otherwise isolative, difficult to engage. continue current mgmt. 05/16: slept 7 hours. as for yesterday otherwise. 05/17/25: Slept well, no issue with appetite, skinny and pretty tall. Compliant with medication. No side effects Calm and pleasant upon approach. Some what paranoid. Tangential, however denies other safety concerns. Questions if he is discharging soon. He is on antibiotic for 7 days for mouth pain/tooth pain. We will finish the 7 course up in antibiotic after tonight dose. Then discontinue. 05/18/25: Slept for 5 hours plus hours this morning. In bed most of the shift, no behavior issues. Denies other safety concerns. 05/19: in bed days, up eves. no change in presentation. continue current mgmt. 05/20: no change in presentation. check labs. 05/21: lithium low, TFTs mixed and not all back. increase lithium from 600 BID to 600/900. trend BUN/Cr, with slight elevation. otherwise continue current mgmt. 05/22: no change in presentation. continue current mgmt. 05/23: does not deny someone stole his sperm and impregnated his landlord's child with it. irritable. c/o dental pain, antibx restarted. otherwise continue current mgmt. 05/14: no change in mgt 05/25: more isolative today; no change in mgt 05/26: decreases in methimazole noted. continue psych regimen as is. pt refused to interact with MD today. 05/27: i'm sleeping. no change in presentation. labs tonight. 05/28: no change in behavior. lithium 0.66, BUN stable. continue current mgmt. 05/29: irritable. continue current mgmt. 05/30: no longer in single room. still not engaging, sleeping days. continue current mgmt. 05/31:laying in bed. declined to meet with T/W. pt stated, I want to sleep. I didn't sleep enough . Pt encouraged to reach out to staff if he needs anything. Continue current tx plan. 06/01: Similar to yesterday. laying in bed. Irritable. declined to meet with T/W and pulled bed sheets over head. pt stated, I don't want to talk. I want to sleep . difficult to engage. Continue current tx plan. 06/02: Similar to yesterday. laying in bed. Irritable. declined to meet with T/W. Observed getting drink from kitchen; T/W approached pt and asked if they could speak. patient declined to acknowledge T/W and walked past. Continue current tx plan. 06/03: no change in behavior. continue tx plan. 06/04/25: Passive engaged in the assessment, in bed mostly sleeping this morning which could be interfere with his nighttime. Cover body under the blanket Slept for 4-5 hours last night. Was medication compliant, attended no groups, isolative to self in room. No SI/SIB/HI/AVH expressed. 06/05: continue tx plan. 06/06: reports feeling fine ; continues guarded. difficult to engage. declining to meet with T/W. continue tx plan. 06/07/25: Slept for 4 hours at night, but has been sleeping most of the day yesterday as well. Spent majority of the shift in bed, was medication compliant. Passive engaged in the conversation. He said he will try to change the sleeping pattern so that he can be awake more during the daytime. Appear to be sedated in the morning. No safety behavior. 06/08/25: Slept for 3-4 hours last night, compliant with medications. Denies side effects, denies other safety concerns. Continued to encourage patient to up and down more than on the unit he spent most of the day sleeping. He is pleasant upon approach. No other behavior issues. Denied voices/hallucinations. Suicide thoughts or homicidal thoughts. 06/09: sleeping, minimally rousable. denies problems. continue current mgmt. 06/10: sleeping all day, up most of the night. minimally rousable. denies problems. continue current mgmt. per JAMAICA Arrington: Jean said when he leaves he can return to [facility]. he was living with a lady there and can go back. He plans to get a job to pay off his debt. He said he owes money because they sent him back here due to losing his passport and he owes them money for the temporary emergency passport and the flight back to the . so his main focus is to get a job. he said he will try things here first and if it doesn't work out he plans to return to [place]. 06/11/25: Passively engaged in conversation while in bed sleeping/resting. Able to answer question appropriately, but seems to be minimized. Denies SI/SIB/HI/AVH. He slept 5 hours last night, spent most of the day in bed sleeping. Attempted to no groups, observed out to the afternoon in the subramanian near the nurse station. No change in presentation. Encourage groups,up and engaged in groups. 06/12: not engaging. no complaints or questions re med changes. cross-taper zyprexa in favor of invega, give MONTERO invega. tonight, decrease zyprexa to 15 mg and start invega 3 mg. otherwise continue current mgmt. 06/13: continues avoidant and disengaged. denies side effects from med change last night. informed cross-titration will advance tonight. decrease zyprexa to 10 mg tonight, increase paliperidone to 6 mg. plan to continue by 5 mg zyprexa and 3 mg paliperidone increments every several days as tolerated until zyprexa DCed and paliperidone at 12 mg QHS. once it is established pt is tolerating PO Paliperidone, invega sustenna to be administered. 06/14: Continue current regimen and plans 06/15: Continue current plans and regimen 06/16: irritable re neuroleptic change. denies side effects or problems with it, however. minimally engageable. increase invega to 9 QHS and decrfease zyprexa to 5 QHS. 06/17/25: Continued to be irritable regarding medication change/titration. However engaged in conversation, hyper verbal, paranoid, reports medication slow his thoughts down and he does not not like it. Poor insight and poor judgment. He thinks he only need lithium, not other medications. Remind patient to continue doing the sleep pattern changing. However his in bed mostly this morning. Slept for 4-5 hours last night. Patient educated on: diagnosis, medication risk/benefits and therapeutic strategies Informed Consent: further education needed Reason for continued inpatient stay Substantial Risk for: med/psych decompensation Time Spent With Patient Time: Total time managing care of this patient today ____ minutes.
[2025-06-18] MEDS: OLANZapine ODT 10 MG TAB.RAPDIS 5 MG TRANSLINGU ×2 (00:12→23:17)
[2025-06-18] MEDS: Paliperidone ER 9 MG TAB.ER.24 PO ×2 (00:13→23:17)
[2025-06-18 09:00] VITALS: BP 135/65; PULSE 92; RESP 16; TEMP 37.2; O2SAT 97
--- NOTE | 2025-06-18 13:22 | P.PNPSI_ITS ---
Subjective Subjective Date of Service: 06/18/25 Reason For Visit: psychotic disorder Subjective Notes: [place] Order and Section 8 Healthcare Proxy: No Guardianship: No Medical Problems Affecting Mental Status: No Interim History: Medical record and nursing notes reviewed; case discussed during rounds with team/nursing staff, and met with patient for supportive therapy/psychoeducation, as well as medication management. Patient slept for 5 hours last night but was observed in bed sleeping mosty of the monring. Was compliant with medication. He is passive engaging during 1-1 check in. Denies safety concerns. He does not c/o of side effects of medication like he did yesterday. Minimal peer and staff interaction. Mostly in bed, medications offered at bedside by assigned nurse. Medication Compliance: Yes Side effects from medications: No Attending Groups: No Review of Systems Acute medical concerns: No Medical Review of Systems: unchanged Review of Systems Review of Systems Constitutional: Denies fatigue and Denies fever(s) Cardiovascular: Denies chest pain and Denies dyspnea Respiratory: Denies dyspnea Gastrointestinal: Denies abdominal pain Psychiatric: denies suicidal ideation Endocrine: Denies fatigue Yes all other systems are reviewed and are negative Mental Status Exam Mental Status Exam Narrative: He is under blanket, in bed sleeping. Passively engaging in assessment. Denies safety concerns. No SI//SIB/HI/AVH expressed. Isolative, in bed most of the day. Diagnostics Vital Signs (24Hr): Vital Signs - 24 hr 06/18/25 09:00 Temperature 98.9 F Pulse Rate 92 Respiratory Rate 16 Blood Pressure 135/65 Pulse Oximetry 97 Oxygen Delivery Method Room Air BMI result Body Mass Index 24.0 Labs 03/27/25 09:44 05/27/25 22:58 Medications Medications Current Medications Acetaminophen (Acetaminophen 325 Mg Tablet) 650 mg PO Q6H PRN PRN Reason: Headache/Pain, Scale 1-10 Last Admin: 04/01/25 23:20 Dose: 650 mg Al Hydroxide/Mg Hydroxide (Magnesium Hydrox/Alum Hydrox 30 Ml Oral.Susp) 30 ml PO Q6H PRN PRN Reason: Heartburn/Nausea Benzocaine (Benzocaine 20 % Oral Gel 14 Gm Tube) 1 appl MUCOUS MEM QID PRN; Protocol PRN Reason: Mouth Sore Pain Last Admin: 04/26/25 18:33 Dose: 1 appl Diazepam (Diazepam 10 Mg/2 Ml Cartridge) 10 mg IM BID PRN PRN Reason: refusal of lithium, per everett Last Admin: 04/11/25 09:56 Dose: 10 mg Haloperidol (Haloperidol 5 Mg Tablet) 5 mg PO Q4H PRN PRN Reason: agitation Hydroxyzine HCl (Hydroxyzine Hcl 25 Mg Tablet) 25 mg PO Q6H PRN PRN Reason: mild anxiety Ibuprofen (Ibuprofen 800 Mg Tablet) 800 mg PO Q6H PRN PRN Reason: pain (pain scale 1-10) Last Admin: 06/05/25 04:03 Dose: 800 mg [place] Carbonate ([place] Carbonate Er 300 Mg Tablet.Er) 600 mg PO DAILY [facility] Last Admin: 06/18/25 09:02 Dose: 600 mg [place] Carbonate ([place] Carbonate Er 450 Mg Tablet.Er) 900 mg PO DAILY@2300 [facility] Last Admin: 06/18/25 00:12 Dose: 900 mg Magnesium Hydroxide (Milk Of Magnesia 30 Ml Oral.Susp) 30 ml PO DAILY PRN PRN Reason: Constipation Methimazole (Methimazole 10 Mg Tablet) 10 mg PO DAILY [facility] Last Admin: 06/18/25 09:02 Dose: 10 mg Nicotine (Nicotine 21 Mg Patch.Td24) 21 mg TRANSDERMA DAILY PRN PRN Reason: nicotine cravings Last Admin: 04/12/25 17:06 Dose: 21 mg Nicotine Polacrilex (Nicotine Polacrilex Lozenge 2 Mg Lozenge) 2 mg BUCCAL Q1H PRN PRN Reason: Nicotine Cravings Last Admin: 04/30/25 08:49 Dose: 2 mg Patient Own Medication Excedrin 250/250/65mg 2 each PO Q8H PRN PRN Reason: Migraine Headache Last Admin: 04/18/25 18:03 Dose: 2 each Olanzapine (Olanzapine 10 Mg Vial) 10 mg IM BID PRN PRN Reason: refusal of PO, per maria luz's ord Last Admin: 04/11/25 09:56 Dose: 10 mg Olanzapine (Olanzapine Odt 10 Mg Tab.Rapdis) 5 mg TRANSLINGU DAILY@2300 [facility] Last Admin: 06/18/25 00:12 Dose: 5 mg Paliperidone (Paliperidone Er 9 Mg Tab.Er.24) 9 mg PO BEDTIME [facility] Last Admin: 06/18/25 00:13 Dose: 9 mg Quetiapine Fumarate (Quetiapine Fumarate 200 Mg Tablet) 200 mg PO BEDTIME PRN PRN Reason: insomnia Last Admin: 04/16/25 04:21 Dose: 200 mg Allergies Allergies Allergy/AdvReac Type Severity Reaction Status Date / Time No Known Allergies Allergy Verified 03/26/25 14:24 Assessment & Plan Assessment & Plan (1) Graves disease: Status: Acute Code(s): E05.00 - Thyrotoxicosis with diffuse goiter without thyrotoxic crisis or storm Assessment and Plan: Hyperthyroidism/Graves disease. He will need follow up with endocrinology as an outpatient He will also need a primary care doctor referral as an outpatient Discussed with Dr. Bejarano, patient will need free T4 weekly Decrease Methimazole to 15 mgs daily for three days and then 10 mgs daily- discussed with patient he is aware of plan and rationale. TSH and free T4 every 4 weeks. No need to draw thyroid stimulation immunology or TSH receptor AB (2) Dental abscess: Status: Acute Code(s): K04.7 - Periapical abscess without sinus Assessment and Plan: Carious tooth/dental infection Recently treated with PEN VK 500 mg q.6 hours for 7 days Patient will need follow up with dentist on discharge for tooth extraction Motrin helping pain. (3) Becca: Status: Acute Code(s): F30.9 - Manic episode, unspecified Plan 03/26: offer lithium and seroquel for becca. continue methimazole and beta joanne for hyperthyroidism as started at [facility]. trend TFTs. 12b. 03/27: taking methimazole and beta joanne. refused HS meds last night, took morning meds today. continue to encourage medication compliance. 03/28: intermittently taking meds. wants all meds in morning. pressured, manic, paranoid delusions. encouraged to take lithium but states he will not. all meds ordered for morning. 03/29: Keeping to self. no groups. observed laying in bed listening to music on unit headphones. pleasant. Pt reports feeling good today and sleeping well. declined lithium and zyprexa. denies SI/HI/VH/AH. continue current tx plan. 03/30:Irritable. upset he was unable to use his personal hygiene products. Per nursing, pt threatened staff and squeezed tooth paste throughout unit hallway to show his frustration. Pt was able to calm down after speaking with security. declined medications. 03/31: Keeping to self. laying in bed listening to music. refused medications. calm today. Patient reports feeling great ; pt stated, nothing is wrong with me. I'm waiting so I can leave tomorrow. I'm hoping for the best . denies SI/HI/VH/AH. per nursing, slept 6 hours. Continue current tx plan. 04/01: variably calm on the unit versus highly agitated. paranoid delusions, irritability, lability continue. seems to believe MD has met him prior to the present hospitalization and is stalking him. believes brother behind conspiracy to have him psychiatrically hospitalized. has been refusing all medications, including for hyperthyroidism. informed he would be filed on. filed. continue to offer medications. 04/02: continues agitated, belittling, verbally aggressive, refusing all medications including for hyperthyroidism. continue to offer medication. 04/03: paranoid there is a conspiracy to hospitalize him. threatening to stick a stick in staff once he is released by filler sifter machine. insists his hyperthyroidism was cured at [facility]. asserts there is NOTHING wrong with him. continue to offer medication. 04/04: irritable, rejecting. verbally abuses MD and sends him away: see you on monday [in court]. continue to offer medication for thyroid condition and mental illness. 04/05 continue tx. suspicious and guarded, accusatory, verbal threats to hurt staff and peers 04/06 intrusive, posturing towards staff and peer who he thinks is not real and is an impostor, continues to make verbal threats to harm him but thinks that because he is not real he may not experience any pain. 04/07: threatening statements and behaviors of yesterday noted. pt sleeping this morning, dismissive of MD. 04/08: asleep days. committed and meds ordered by court. 04/09: on being informed of court order and MD insisting on meds, pt escalated to hurling food item in container against wall at high speed and saying he wished he could do the same to MD's head. pt eventually took court ordered meds PO. sensodyne and excedrin not available in pharmacy (pt requesting them). 6/5: continue tx. Pt accepting medication today. 04/11: Keeping to self. Lying in bed most of morning. Declined to meet with T/W. Pt stated, I'm fine. I don't need anything . Listening to headphones in room. Declined court ordered PO medications; received IM medications. Refused vital signs.continue tx plan. 04/12: got IMs yesterday, took PO this morning. sleepy, no concerns or complaints. 04/13: taking PO meds again. slept 7 hours. sleepy again mid morning refusing interview. continue current mgmt. 04/14: sleeping, rousable. denies being sedated or tired, says he's just bored. no questions or complaints. informed of need to check labs. check lithium level and thyroid labs tonight. 04/15: refusing labs. delusional re his brother harming him. verbally abusive toward MD. spat in floor. happy with improvement in proptosis. 04/16: Lying in bed. Calm. cooperative. guarded. Pt reports feeling tired this morning d/t poor sleep last night. Pt stated, I don't need anything. I didn't sleep well so I'm trying to catch up . denies any issues at this time. denies SI/HI/VH/AH. Continue current tx plan. 04/17: more calm today, less explosive. continue current mgmt. 04/18: continues more calm. tolerating moments of frustration without verbally attacking MD. slept only 2 hours overnight, however. continue current mgmt. 04/19 continues to push boundaries and limits with staff mike around cell phone- 04/20 - aggressive with staff and unpredictable- threw water pitcher at staff behind desk/-when seen by provider passive in bed-denying all compaints/sys- no insight 04/21: appears as per last week. more difficult behaviors around cell phone use, did throw pitcher of water at RN monday over phone use and was restrained. continue current mgmt. 04/22: continues to have conflict around cell phone use. consolidate zyprexa at HS to decrease daytime sedation. 1:1 allegra shift until peer he is accusing of not being a real patient and appears to be targeting discharges tomorrow. 04/23: lithium 0.6 on 600 BID. sleeping better, remains delusional (telling SW who is marginally younger than him that she could be his daughter). just changed zyprexa dosing as of last night. continue current regimen and observe for continued stabilization. T/C slight increase in lithium dosing. 04/24: Laying in bed. guarded. calm. did not want to get out of bed to meet with T/W. Pt reports feeling great today but declined to go into detail. listening to music on unit headphones. Pt stated, I'm fine. I don't need anything . denies any issues at this time. denies SI/HI/VH/AH. Continue current tx plan. 04/25: Laying in bed. keeping to self. calm. paranoid. Discussed incident that occurred with staff last evening. Pt stated, the counselor made up a lie yesterday. I said she looks like my ex-girlfriend. I know they are related. They want to make up a lie to irritate me. They are trying to talk to me so they can use recording devices and make me look some kind of way . listening to music on unit headphones. denies SI/HI/VH/AH. Continue current tx plan. 04/26: Continue current regimen and plans. Increase Zyprexa 20 mg q.h.s. fresh air break withheld 04/27: Continue current regimen and plans 04/28: somewhat less irritable and agitated than last week. however, over the weekend was claiming he was the father of a footballer on TV and also that a staff member is a twin of his ex-GF (and he pushed staff member). TFTs improving. continue current mgmt. 04/29: no change in presentation. continue current mgmt. 04/30: no irritable edge today. calm, pleasant. engaging in small talk. reality testing not pressed. continue current mgmt for now. 05/01: no change in presentation. continue current mgmt. 05/02: BPs coming down, DC beta joanne as pt has been refusing anyway. remains not antagonistic toward MD. using phone appropriately. continue current mgmt otherwise. 05/03 continue 05/04: remains delusional, irritable/labile when delusional system confronted. declines to sign TOMMY for [facility] records. continue current mgmt. 05/06: declining to meet with MD, but does meet with medical student. remains upset about yesterday's confrontation re his delusional system. 05/07: Active on unit. keeping to self. pacing unit hallway while listening to unit headphones. medication compliant. patient reports feeling good ; pt stated, I'm just waiting to leave here. I want to return to my life and do things like go grocery shopping . denies SI/HI/VH/AH. Continue current tx plan. 05/08: stable presentation, delusions not being brought to the surface daily. remains affectively improved from admission. continue current mgmt. 05/09: calm, pleasant. no questions or complaints. continue current mgmt. 05/10: no change in presentation. due to lack of improvement in dental infection Sx, DC PCN and start augmentin. 05/11: no change in presentation. continue current mgmt. 05/12: as for yesterday. dental pain improving a bit. 05/13: expressed to medical student that his brother poisoned him, causing his thyroid disease. no change in presentation. continue current mgmt. 05/14: Pacing unit hallway. keeping to self. patient reports feeling good today; denies any issues at this time. denies SI/HI/VH/AH. per nursing, slept 5 hours. Continue current tx plan. 05/15: slept 6 hours. otherwise isolative, difficult to engage. continue current mgmt. 05/16: slept 7 hours. as for yesterday otherwise. 05/17/25: Slept well, no issue with appetite, skinny and pretty tall. Compliant with medication. No side effects Calm and pleasant upon approach. Some what paranoid. Tangential, however denies other safety concerns. Questions if he is discharging soon. He is on antibiotic for 7 days for mouth pain/tooth pain. We will finish the 7 course up in antibiotic after tonight dose. Then discontinue. 05/18/25: Slept for 5 hours plus hours this morning. In bed most of the shift, no behavior issues. Denies other safety concerns. 05/19: in bed days, up eves. no change in presentation. continue current mgmt. 05/20: no change in presentation. check labs. 05/21: lithium low, TFTs mixed and not all back. increase lithium from 600 BID to 600/900. trend BUN/Cr, with slight elevation. otherwise continue current mgmt. 05/22: no change in presentation. continue current mgmt. 05/23: does not deny someone stole his sperm and impregnated his landlord's child with it. irritable. c/o dental pain, antibx restarted. otherwise continue current mgmt. 05/14: no change in mgt 05/25: more isolative today; no change in mgt 05/26: decreases in methimazole noted. continue psych regimen as is. pt refused to interact with MD today. 05/27: i'm sleeping. no change in presentation. labs tonight. 05/28: no change in behavior. lithium 0.66, BUN stable. continue current mgmt. 05/29: irritable. continue current mgmt. 05/30: no longer in single room. still not engaging, sleeping days. continue current mgmt. 05/31:laying in bed. declined to meet with T/W. pt stated, I want to sleep. I didn't sleep enough . Pt encouraged to reach out to staff if he needs anything. Continue current tx plan. 06/01: Similar to yesterday. laying in bed. Irritable. declined to meet with T/W and pulled bed sheets over head. pt stated, I don't want to talk. I want to sleep . difficult to engage. Continue current tx plan. 06/02: Similar to yesterday. laying in bed. Irritable. declined to meet with T/W. Observed getting drink from kitchen; T/W approached pt and asked if they could speak. patient declined to acknowledge T/W and walked past. Continue current tx plan. 06/03: no change in behavior. continue tx plan. 06/04/25: Passive engaged in the assessment, in bed mostly sleeping this morning which could be interfere with his nighttime. Cover body under the blanket Slept for 4-5 hours last night. Was medication compliant, attended no groups, isolative to self in room. No SI/SIB/HI/AVH expressed. 06/05: continue tx plan. 06/06: reports feeling fine ; continues guarded. difficult to engage. declining to meet with T/W. continue tx plan. 06/07/25: Slept for 4 hours at night, but has been sleeping most of the day yesterday as well. Spent majority of the shift in bed, was medication compliant. Passive engaged in the conversation. He said he will try to change the sleeping pattern so that he can be awake more during the daytime. Appear to be sedated in the morning. No safety behavior. 06/08/25: Slept for 3-4 hours last night, compliant with medications. Denies side effects, denies other safety concerns. Continued to encourage patient to up and down more than on the unit he spent most of the day sleeping. He is pleasant upon approach. No other behavior issues. Denied voices/hallucinations. Suicide thoughts or homicidal thoughts. 06/09: sleeping, minimally rousable. denies problems. continue current mgmt. 06/10: sleeping all day, up most of the night. minimally rousable. denies problems. continue current mgmt. per JAMAICA Arrington: Jean said when he leaves he can return to [facility]. he was living with a lady there and can go back. He plans to get a job to pay off his debt. He said he owes money because they sent him back here due to losing his passport and he owes them money for the temporary emergency passport and the flight back to the . so his main focus is to get a job. he said he will try things here first and if it doesn't work out he plans to return to [place]. 06/11/25: Passively engaged in conversation while in bed sleeping/resting. Able to answer question appropriately, but seems to be minimized. Denies SI/SIB/HI/AVH. He slept 5 hours last night, spent most of the day in bed sleeping. Attempted to no groups, observed out to the afternoon in the subramanian near the nurse station. No change in presentation. Encourage groups,up and engaged in groups. 06/12: not engaging. no complaints or questions re med changes. cross-taper zyprexa in favor of invega, give MONTERO invega. tonight, decrease zyprexa to 15 mg and start invega 3 mg. otherwise continue current mgmt. 06/13: continues avoidant and disengaged. denies side effects from med change last night. informed cross-titration will advance tonight. decrease zyprexa to 10 mg tonight, increase paliperidone to 6 mg. plan to continue by 5 mg zyprexa and 3 mg paliperidone increments every several days as tolerated until zyprexa DCed and paliperidone at 12 mg QHS. once it is established pt is tolerating PO Paliperidone, invega sustenna to be administered. 06/14: Continue current regimen and plans 06/15: Continue current plans and regimen 06/16: irritable re neuroleptic change. denies side effects or problems with it, however. minimally engageable. increase invega to 9 QHS and decrfease zyprexa to 5 QHS. 06/17/25: Continued to be irritable regarding medication change/titration. However engaged in conversation, hyper verbal, paranoid, reports medication slow his thoughts down and he does not not like it. Poor insight and poor judgment. He thinks he only need lithium, not other medications. Remind patient to continue doing the sleep pattern changing. However his in bed mostly this morning. Slept for 4-5 hours last night. 06/18/25: Slept for 5 hours last night as he continues sleeping during daytime. Compliant with meds, did not c/o side effects.Passingly engaging in assessment. Denies safety concerns. Tolerate the tritation well. Will increase Inveag up to max of 12 tomorrow and Discontinue Olanzepine at HS. Continue to encourage up and out on day so he can sleep better at HS. Patient educated on: medication risk/benefits and therapeutic strategies Informed Consent: further education needed Reason for continued inpatient stay Substantial Risk for: med/psych decompensation Time Spent With Patient Time: Total time managing care of this patient today ____ minutes.
[2025-06-18 20:00] VITALS: BP 143/88; PULSE 95; RESP 16; TEMP 36.4; O2SAT 100
[2025-06-19 09:07] VITALS: BP 121/71; PULSE 99; RESP 16; TEMP 36.9; O2SAT 100
--- NOTE | 2025-06-19 17:30 | P.PNPSI_ITS ---
Subjective Subjective Date of Service: 06/19/25 Reason For Visit: psychotic disorder Subjective Notes: [place] Order and Section 8 Healthcare Proxy: No Guardianship: No Medical Problems Affecting Mental Status: No Interim History: Medical record and nursing notes reviewed; case discussed during rounds with team/nursing staff, and met with patient for supportive therapy/psychoeducation, as well as medication management. Patient slept for 5.5 hours last night, was medication compliant, mostly in his room yesterday but seen more often in the evening. Patient is awake in his room, listen to music, his morning tray was taken away and clean the area. He is very pleasant to talk to today, reports he feels good, denies side effects from medications, denies any safety concerns. Denies feeling sedation, denies anxiety/depression. He is receptive with the plan of medication over the weekends and next week, happy to hear about the medication plan. He also agree with the MONTERO Invega Sustenna on Monday. Encourage him to go out and attended to groups, he said that he will. Reported that he was out for groups a couple of times last week. Medication Compliance: Yes Side effects from medications: No Attending Groups: No Review of Systems Acute medical concerns: No Medical Review of Systems: unchanged Review of Systems Review of Systems Constitutional: Denies fatigue and Denies fever(s) Cardiovascular: Denies chest pain and Denies dyspnea Respiratory: Denies dyspnea Gastrointestinal: Denies abdominal pain Psychiatric: denies suicidal ideation Endocrine: Denies fatigue Yes all other systems are reviewed and are negative Mental Status Exam Mental Status Exam Narrative: He is in bed cover self with a blanket from the shoulder, was in bed listen to music, actively engaged in full conversation., denies SI/SIB/HI/AVH,, poor insight and judgment, happy with the medication change included long-acting injection. Denies safety concerns. No SI//SIB/HI/AVH expressed. Diagnostics Vital Signs (24Hr): Vital Signs - 24 hr 06/18/25 20:00 06/19/25 09:07 Temperature 97.5 F 98.5 F Pulse Rate 95 99 Respiratory Rate 16 16 Blood Pressure 143/88 H 121/71 Pulse Oximetry 100 100 Oxygen Delivery Method Room Air Room Air BMI result Body Mass Index 24.0 Labs 03/27/25 09:44 05/27/25 22:58 Medications Medications Current Medications Acetaminophen (Acetaminophen 325 Mg Tablet) 650 mg PO Q6H PRN PRN Reason: Headache/Pain, Scale 1-10 Last Admin: 04/01/25 23:20 Dose: 650 mg Al Hydroxide/Mg Hydroxide (Magnesium Hydrox/Alum Hydrox 30 Ml Oral.Susp) 30 ml PO Q6H PRN PRN Reason: Heartburn/Nausea Benzocaine (Benzocaine 20 % Oral Gel 14 Gm Tube) 1 appl MUCOUS MEM QID PRN; Protocol PRN Reason: Mouth Sore Pain Last Admin: 04/26/25 18:33 Dose: 1 appl Diazepam (Diazepam 10 Mg/2 Ml Cartridge) 10 mg IM BID PRN PRN Reason: refusal of lithium, per everett Last Admin: 04/11/25 09:56 Dose: 10 mg Hydroxyzine HCl (Hydroxyzine Hcl 25 Mg Tablet) 25 mg PO Q6H PRN PRN Reason: mild anxiety Chillum Carbonate (Chillum Carbonate Er 300 Mg Tablet.Er) 600 mg PO DAILY [facility] Last Admin: 06/19/25 09:08 Dose: 600 mg Chillum Carbonate (Chillum Carbonate Er 450 Mg Tablet.Er) 900 mg PO DAILY@2300 [facility] Last Admin: 06/18/25 23:17 Dose: 900 mg Magnesium Hydroxide (Milk Of Magnesia 30 Ml Oral.Susp) 30 ml PO DAILY PRN PRN Reason: Constipation Methimazole (Methimazole 10 Mg Tablet) 10 mg PO DAILY [facility] Last Admin: 06/19/25 09:08 Dose: 10 mg Nicotine (Nicotine 21 Mg Patch.Td24) 21 mg TRANSDERMA DAILY PRN PRN Reason: nicotine cravings Last Admin: 04/12/25 17:06 Dose: 21 mg Nicotine Polacrilex (Nicotine Polacrilex Lozenge 2 Mg Lozenge) 2 mg BUCCAL Q1H PRN PRN Reason: Nicotine Cravings Last Admin: 04/30/25 08:49 Dose: 2 mg Patient Own Medication Excedrin 250/250/65mg 2 each PO Q8H PRN PRN Reason: Migraine Headache Last Admin: 04/18/25 18:03 Dose: 2 each Olanzapine (Olanzapine 10 Mg Vial) 10 mg IM DAILY PRN PRN Reason: if refuse Invega PO Paliperidone (Paliperidone Er 6 Mg Tab.Er.24) 12 mg PO BEDTIME [facility] Quetiapine Fumarate (Quetiapine Fumarate 100 Mg Tablet) 100 mg PO BEDTIME PRN PRN Reason: insomnia Quetiapine Fumarate (Quetiapine Fumarate 50 Mg Tablet) 50 mg PO BID PRN PRN Reason: agitation Allergies Allergies Allergy/AdvReac Type Severity Reaction Status Date / Time No Known Allergies Allergy Verified 03/26/25 14:24 Assessment & Plan Assessment & Plan (1) Graves disease: Status: Acute Code(s): E05.00 - Thyrotoxicosis with diffuse goiter without thyrotoxic crisis or storm Assessment and Plan: Hyperthyroidism/Graves disease. He will need follow up with endocrinology as an outpatient He will also need a primary care doctor referral as an outpatient Discussed with Dr. Bejarano, patient will need free T4 weekly Decrease Methimazole to 15 mgs daily for three days and then 10 mgs daily- discussed with patient he is aware of plan and rationale. TSH and free T4 every 4 weeks. No need to draw thyroid stimulation immunology or TSH receptor AB (2) Dental abscess: Status: Acute Code(s): K04.7 - Periapical abscess without sinus Assessment and Plan: Carious tooth/dental infection Recently treated with PEN VK 500 mg q.6 hours for 7 days Patient will need follow up with dentist on discharge for tooth extraction Motrin helping pain. (3) Becca: Status: Acute Code(s): F30.9 - Manic episode, unspecified Plan 03/26: offer lithium and seroquel for becca. continue methimazole and beta joanne for hyperthyroidism as started at [facility]. trend TFTs. 12b. 03/27: taking methimazole and beta joanne. refused HS meds last night, took morning meds today. continue to encourage medication compliance. 03/28: intermittently taking meds. wants all meds in morning. pressured, manic, paranoid delusions. encouraged to take lithium but states he will not. all meds ordered for morning. 03/29: Keeping to self. no groups. observed laying in bed listening to music on unit headphones. pleasant. Pt reports feeling good today and sleeping well. declined lithium and zyprexa. denies SI/HI/VH/AH. continue current tx plan. 03/30:Irritable. upset he was unable to use his personal hygiene products. Per nursing, pt threatened staff and squeezed tooth paste throughout unit hallway to show his frustration. Pt was able to calm down after speaking with security. declined medications. 03/31: Keeping to self. laying in bed listening to music. refused medications. calm today. Patient reports feeling great ; pt stated, nothing is wrong with me. I'm waiting so I can leave tomorrow. I'm hoping for the best . denies SI/HI/VH/AH. per nursing, slept 6 hours. Continue current tx plan. 04/01: variably calm on the unit versus highly agitated. paranoid delusions, irritability, lability continue. seems to believe MD has met him prior to the present hospitalization and is stalking him. believes brother behind conspiracy to have him psychiatrically hospitalized. has been refusing all medications, including for hyperthyroidism. informed he would be filed on. filed. continue to offer medications. 04/02: continues agitated, belittling, verbally aggressive, refusing all medications including for hyperthyroidism. continue to offer medication. 04/03: paranoid there is a conspiracy to hospitalize him. threatening to stick a stick in staff once he is released by transmission system operator. insists his hyperthyroidism was cured at [facility]. asserts there is NOTHING wrong with him. continue to offer medication. 04/04: irritable, rejecting. verbally abuses MD and sends him away: see you on monday [in court]. continue to offer medication for thyroid condition and mental illness. 04/05 continue tx. suspicious and guarded, accusatory, verbal threats to hurt staff and peers 04/06 intrusive, posturing towards staff and peer who he thinks is not real and is an impostor, continues to make verbal threats to harm him but thinks that because he is not real he may not experience any pain. 04/07: threatening statements and behaviors of yesterday noted. pt sleeping this morning, dismissive of MD. 04/08: asleep days. committed and meds ordered by court. 04/09: on being informed of court order and MD insisting on meds, pt escalated to hurling food item in container against wall at high speed and saying he wished he could do the same to MD's head. pt eventually took court ordered meds PO. sensodyne and excedrin not available in pharmacy (pt requesting them). 04/10: continue tx. Pt accepting medication today. 04/11: Keeping to self. Lying in bed most of morning. Declined to meet with T/W. Pt stated, I'm fine. I don't need anything . Listening to headphones in room. Declined court ordered PO medications; received IM medications. Refused vital signs.continue tx plan. 04/12: got IMs yesterday, took PO this morning. sleepy, no concerns or complaints. 04/13: taking PO meds again. slept 7 hours. sleepy again mid morning refusing interview. continue current mgmt. 04/14: sleeping, rousable. denies being sedated or tired, says he's just bored. no questions or complaints. informed of need to check labs. check lithium level and thyroid labs tonight. 04/15: refusing labs. delusional re his brother harming him. verbally abusive toward MD. spat in floor. happy with improvement in proptosis. 04/16: Lying in bed. Calm. cooperative. guarded. Pt reports feeling tired this morning d/t poor sleep last night. Pt stated, I don't need anything. I didn't sleep well so I'm trying to catch up . denies any issues at this time. denies SI/HI/VH/AH. Continue current tx plan. 04/17: more calm today, less explosive. continue current mgmt. 04/18: continues more calm. tolerating moments of frustration without verbally attacking MD. slept only 2 hours overnight, however. continue current mgmt. 04/19 continues to push boundaries and limits with staff mike around cell phone- 04/20 - aggressive with staff and unpredictable- threw water pitcher at staff behind desk/-when seen by provider passive in bed-denying all compaints/sys- no insight 04/21: appears as per last week. more difficult behaviors around cell phone use, did throw pitcher of water at RN monday over phone use and was restrained. continue current mgmt. 04/22: continues to have conflict around cell phone use. consolidate zyprexa at HS to decrease daytime sedation. 1:1 allegra shift until peer he is accusing of not being a real patient and appears to be targeting discharges tomorrow. 04/23: lithium 0.6 on 600 BID. sleeping better, remains delusional (telling SW who is marginally younger than him that she could be his daughter). just changed zyprexa dosing as of last night. continue current regimen and observe for continued stabilization. T/C slight increase in lithium dosing. 04/24: Laying in bed. guarded. calm. did not want to get out of bed to meet with T/W. Pt reports feeling great today but declined to go into detail. listening to music on unit headphones. Pt stated, I'm fine. I don't need anything . denies any issues at this time. denies SI/HI/VH/AH. Continue current tx plan. 04/25: Laying in bed. keeping to self. calm. paranoid. Discussed incident that occurred with staff last evening. Pt stated, the counselor made up a lie yesterday. I said she looks like my ex-girlfriend. I know they are related. They want to make up a lie to irritate me. They are trying to talk to me so they can use recording devices and make me look some kind of way . listening to music on unit headphones. denies SI/HI/VH/AH. Continue current tx plan. 04/26: Continue current regimen and plans. Increase Zyprexa 20 mg q.h.s. fresh air break withheld 04/27: Continue current regimen and plans 04/28: somewhat less irritable and agitated than last week. however, over the weekend was claiming he was the father of a footballer on TV and also that a staff member is a twin of his ex-GF (and he pushed staff member). TFTs improving. continue current mgmt. 04/29: no change in presentation. continue current mgmt. 04/30: no irritable edge today. calm, pleasant. engaging in small talk. reality testing not pressed. continue current mgmt for now. 05/01: no change in presentation. continue current mgmt. 05/02: BPs coming down, DC beta joanne as pt has been refusing anyway. remains not antagonistic toward MD. using phone appropriately. continue current mgmt otherwise. 05/03 continue 05/04: remains delusional, irritable/labile when delusional system confronted. declines to sign TOMMY for [facility]. continue current mgmt. 05/06: declining to meet with MD, but does meet with medical student. remains upset about yesterday's confrontation re his delusional system. 05/07: Active on unit. keeping to self. pacing unit hallway while listening to unit headphones. medication compliant. patient reports feeling good ; pt stated, I'm just waiting to leave here. I want to return to my life and do things like go grocery shopping . denies SI/HI/VH/AH. Continue current tx plan. 05/08: stable presentation, delusions not being brought to the surface daily. remains affectively improved from admission. continue current mgmt. 05/09: calm, pleasant. no questions or complaints. continue current mgmt. 05/10: no change in presentation. due to lack of improvement in dental infection Sx, DC PCN and start augmentin. 05/11: no change in presentation. continue current mgmt. 05/12: as for yesterday. dental pain improving a bit. 05/13: expressed to medical student that his brother poisoned him, causing his thyroid disease. no change in presentation. continue current mgmt. 05/14: Pacing unit hallway. keeping to self. patient reports feeling good today; denies any issues at this time. denies SI/HI/VH/AH. per nursing, slept 5 hours. Continue current tx plan. 05/15: slept 6 hours. otherwise isolative, difficult to engage. continue current mgmt. 05/16: slept 7 hours. as for yesterday otherwise. 05/17/25: Slept well, no issue with appetite, skinny and pretty tall. Compliant with medication. No side effects Calm and pleasant upon approach. Some what paranoid. Tangential, however denies other safety concerns. Questions if he is discharging soon. He is on antibiotic for 7 days for mouth pain/tooth pain. We will finish the 7 course up in antibiotic after tonight dose. Then discontinue. 05/18/25: Slept for 5 hours plus hours this morning. In bed most of the shift, no behavior issues. Denies other safety concerns. 05/19: in bed days, up eves. no change in presentation. continue current mgmt. 05/20: no change in presentation. check labs. 05/21: lithium low, TFTs mixed and not all back. increase lithium from 600 BID to 600/900. trend BUN/Cr, with slight elevation. otherwise continue current mgmt. 05/22: no change in presentation. continue current mgmt. 05/23: does not deny someone stole his sperm and impregnated his landlord's child with it. irritable. c/o dental pain, antibx restarted. otherwise continue current mgmt. 05/14: no change in mgt 05/25: more isolative today; no change in mgt 05/26: decreases in methimazole noted. continue psych regimen as is. pt refused to interact with MD today. 05/27: i'm sleeping. no change in presentation. labs tonight. 05/28: no change in behavior. lithium 0.66, BUN stable. continue current mgmt. 05/29: irritable. continue current mgmt. 05/30: no longer in single room. still not engaging, sleeping days. continue current mgmt. 05/31:laying in bed. declined to meet with T/W. pt stated, I want to sleep. I didn't sleep enough . Pt encouraged to reach out to staff if he needs anything. Continue current tx plan. 06/01: Similar to yesterday. laying in bed. Irritable. declined to meet with T/W and pulled bed sheets over head. pt stated, I don't want to talk. I want to sleep . difficult to engage. Continue current tx plan. 06/02: Similar to yesterday. laying in bed. Irritable. declined to meet with T/W. Observed getting drink from kitchen; T/W approached pt and asked if they could speak. patient declined to acknowledge T/W and walked past. Continue current tx plan. 06/03: no change in behavior. continue tx plan. 06/04/25: Passive engaged in the assessment, in bed mostly sleeping this morning which could be interfere with his nighttime. Cover body under the blanket Slept for 4-5 hours last night. Was medication compliant, attended no groups, isolative to self in room. No SI/SIB/HI/AVH expressed. 06/05: continue tx plan. 06/06: reports feeling fine ; continues guarded. difficult to engage. declining to meet with T/W. continue tx plan. 06/07/25: Slept for 4 hours at night, but has been sleeping most of the day yesterday as well. Spent majority of the shift in bed, was medication compliant. Passive engaged in the conversation. He said he will try to change the sleeping pattern so that he can be awake more during the daytime. Appear to be sedated in the morning. No safety behavior. 06/08/25: Slept for 3-4 hours last night, compliant with medications. Denies side effects, denies other safety concerns. Continued to encourage patient to up and down more than on the unit he spent most of the day sleeping. He is pleasant upon approach. No other behavior issues. Denied voices/hallucinations. Suicide thoughts or homicidal thoughts. 06/09: sleeping, minimally rousable. denies problems. continue current mgmt. 06/10: sleeping all day, up most of the night. minimally rousable. denies problems. continue current mgmt. per JAMAICA Arrington: Jean said when he leaves he can return to [facility]. he was living with a lady there and can go back. He plans to get a job to pay off his debt. He said he owes money because they sent him back here due to losing his passport and he owes them money for the temporary emergency passport and the flight back to the . so his main focus is to get a job. he said he will try things here first and if it doesn't work out he plans to return to [place]. 06/11/25: Passively engaged in conversation while in bed sleeping/resting. Able to answer question appropriately, but seems to be minimized. Denies SI/SIB/HI/AVH. He slept 5 hours last night, spent most of the day in bed sleeping. Attempted to no groups, observed out to the afternoon in the subramanian near the nurse station. No change in presentation. Encourage groups,up and engaged in groups. 06/12: not engaging. no complaints or questions re med changes. cross-taper zyprexa in favor of invega, give MONTERO invega. tonight, decrease zyprexa to 15 mg and start invega 3 mg. otherwise continue current mgmt. 06/13: continues avoidant and disengaged. denies side effects from med change last night. informed cross-titration will advance tonight. decrease zyprexa to 10 mg tonight, increase paliperidone to 6 mg. plan to continue by 5 mg zyprexa and 3 mg paliperidone increments every several days as tolerated until zyprexa DCed and paliperidone at 12 mg QHS. once it is established pt is tolerating PO Paliperidone, invega sustenna to be administered. 06/14: Continue current regimen and plans 06/15: Continue current plans and regimen 06/16: irritable re neuroleptic change. denies side effects or problems with it, however. minimally engageable. increase invega to 9 QHS and decrfease zyprexa to 5 QHS. 06/17/25: Continued to be irritable regarding medication change/titration. However engaged in conversation, hyper verbal, paranoid, reports medication slow his thoughts down and he does not not like it. Poor insight and poor judgment. He thinks he only need lithium, not other medications. Remind patient to continue doing the sleep pattern changing. However his in bed mostly this morning. Slept for 4-5 hours last night. 06/18/25: Slept for 5 hours last night as he continues sleeping during daytime. Compliant with meds, did not c/o side effects.Passingly engaging in assessment. Denies safety concerns. Tolerate the tritation well. Will increase Inveag up to max of 12 tomorrow and Discontinue Olanzepine at HS. Continue to encourage up and out on day so he can sleep better at HS. 06/19/25: Patient slept for 5.5 hours last night, was medication compliant, mostly in his room yesterday but seen more often in the evening. Patient is awake in his room, listen to music, his morning tray was taken away and clean the area. He is very pleasant to talk to today, reports he feels good, denies side effects from medications, denies any safety concerns. Denies feeling sedation, denies anxiety/depression. He is receptive with the plan of medication over the weekends and next week, happy to hear about the medication plan. He also agree with the MONTERO Invega Sustenna on Monday. Encourage him to go out and attended to groups, he said that he will. Reported that he was out for groups a couple of times last week. Discontinue Haldol p.r.n.. Discontinue scheduled Zyprexa 5 mg at bedtime. Only on Zyprexa at g IM daily p.r.n. as backup orders if refused Invega. Invega 12 mg at bedtime. Plan to monitor over the weekends and will give long- acting injection on Monday if tolerate with the p.o. well Reduce Seroquel 200 mg p.r.n. at bedtime to 100 p.r.n. at bedtime for insomnia. Seroquel 50 mg b.i.d. p.r.n. for agitation. Discontinue Motrin. Patient on lithium. Labs were for MondayJune 20: CMP, TSH with free T4. Patient educated on: diagnosis, medication risk/benefits and therapeutic strategies Informed Consent: further education needed Reason for continued inpatient stay Substantial Risk for: med/psych decompensation Time Spent With Patient Time: Total time managing care of this patient today ____ minutes.
[2025-06-19 19:37] VITALS: BP 157/84; PULSE 90; RESP 18; TEMP 36.9; O2SAT 100
[2025-06-20 08:48] VITALS: BP 127/63; PULSE 95; RESP 16; TEMP 37.2; O2SAT 97
--- NOTE | 2025-06-20 13:56 | HO.PSYCHPN ---
Subjective Subjective Date of Service: 06/20/25 Reason For Visit: psychotic disorder Subjective Notes: [place] Order and Section 8 Healthcare Proxy: No Guardianship: No Medical Problems Affecting Mental Status: No Interim History: Medical record and nursing notes reviewed; case discussed during rounds with team/nursing staff, and met with patient for supportive therapy/psychoeducation, as well as medication management. Patient slept for 4.5 hours last night, and pacing at times at night. Spent most of the day in bed, minimal peers and staff interaction. Denies safety concerns, passively engaged in conversation during one-to-one checking. Compliant with medications, denies side effects. Encourage groups. Medication Compliance: Yes Side effects from medications: No Attending Groups: No Review of Systems Acute medical concerns: No Medical Review of Systems: unchanged Review of Systems Review of Systems Constitutional: Denies fatigue and Denies fever(s) Cardiovascular: Denies chest pain and Denies dyspnea Respiratory: Denies dyspnea Gastrointestinal: Denies abdominal pain Psychiatric: denies suicidal ideation Endocrine: Denies fatigue Yes all other systems are reviewed and are negative Mental Status Exam Mental Status Exam Narrative: He is under blanket, in bed sleeping. Passively engaging in assessment. Denies safety concerns. No SI//SIB/HI/AVH expressed. Isolative, in bed most of the day. Diagnostics Vital Signs (24Hr): Vital Signs - 24 hr 06/19/25 19:37 06/20/25 08:48 Temperature 98.4 F 98.9 F Pulse Rate 90 95 Respiratory Rate 18 16 Blood Pressure 157/84 H 127/63 Pulse Oximetry 100 97 Oxygen Delivery Method Room Air Room Air BMI result Body Mass Index 24.0 Labs 03/27/25 09:44 05/27/25 22:58 Medications Medications Current Medications Acetaminophen (Acetaminophen 325 Mg Tablet) 650 mg PO Q6H PRN PRN Reason: Headache/Pain, Scale 1-10 Last Admin: 04/01/25 23:20 Dose: 650 mg Al Hydroxide/Mg Hydroxide (Magnesium Hydrox/Alum Hydrox 30 Ml Oral.Susp) 30 ml PO Q6H PRN PRN Reason: Heartburn/Nausea Benzocaine (Benzocaine 20 % Oral Gel 14 Gm Tube) 1 appl MUCOUS MEM QID PRN; Protocol PRN Reason: Mouth Sore Pain Last Admin: 04/26/25 18:33 Dose: 1 appl Diazepam (Diazepam 10 Mg/2 Ml Cartridge) 10 mg IM BID PRN PRN Reason: refusal of lithium, per everett Last Admin: 04/11/25 09:56 Dose: 10 mg Hydroxyzine HCl (Hydroxyzine Hcl 25 Mg Tablet) 25 mg PO Q6H PRN PRN Reason: mild anxiety [place] Carbonate ([place] Carbonate Er 300 Mg Tablet.Er) 600 mg PO DAILY [facility] Last Admin: 06/20/25 08:54 Dose: 600 mg [place] Carbonate ([place] Carbonate Er 450 Mg Tablet.Er) 900 mg PO DAILY@2300 [facility] Last Admin: 06/19/25 23:59 Dose: 900 mg Magnesium Hydroxide (Milk Of Magnesia 30 Ml Oral.Susp) 30 ml PO DAILY PRN PRN Reason: Constipation Methimazole (Methimazole 10 Mg Tablet) 10 mg PO DAILY [facility] Last Admin: 06/20/25 08:54 Dose: 10 mg Nicotine (Nicotine 21 Mg Patch.Td24) 21 mg TRANSDERMA DAILY PRN PRN Reason: nicotine cravings Last Admin: 04/12/25 17:06 Dose: 21 mg Nicotine Polacrilex (Nicotine Polacrilex Lozenge 2 Mg Lozenge) 2 mg BUCCAL Q1H PRN PRN Reason: Nicotine Cravings Last Admin: 04/30/25 08:49 Dose: 2 mg Patient Own Medication Excedrin 250/250/65mg 2 each PO Q8H PRN PRN Reason: Migraine Headache Last Admin: 04/18/25 18:03 Dose: 2 each Olanzapine (Olanzapine 10 Mg Vial) 10 mg IM DAILY PRN PRN Reason: if refuse Invega PO Paliperidone (Paliperidone Er 6 Mg Tab.Er.24) 12 mg PO DAILY@2300 [facility] Last Admin: 06/19/25 23:59 Dose: 12 mg Quetiapine Fumarate (Quetiapine Fumarate 100 Mg Tablet) 100 mg PO BEDTIME PRN PRN Reason: insomnia Quetiapine Fumarate (Quetiapine Fumarate 50 Mg Tablet) 50 mg PO BID PRN PRN Reason: agitation Allergies Allergies Allergy/AdvReac Type Severity Reaction Status Date / Time No Known Allergies Allergy Verified 03/26/25 14:24 Assessment & Plan Assessment & Plan (1) Graves disease: Status: Acute Code(s): E05.00 - Thyrotoxicosis with diffuse goiter without thyrotoxic crisis or storm Assessment and Plan: Hyperthyroidism/Graves disease. He will need follow up with endocrinology as an outpatient He will also need a primary care doctor referral as an outpatient Discussed with Dr. Bejarano, patient will need free T4 weekly Decrease Methimazole to 15 mgs daily for three days and then 10 mgs daily- discussed with patient he is aware of plan and rationale. TSH and free T4 every 4 weeks. No need to draw thyroid stimulation immunology or TSH receptor AB (2) Dental abscess: Status: Acute Code(s): K04.7 - Periapical abscess without sinus Assessment and Plan: Carious tooth/dental infection Recently treated with PEN VK 500 mg q.6 hours for 7 days Patient will need follow up with dentist on discharge for tooth extraction Motrin helping pain. (3) Becca: Status: Acute Code(s): F30.9 - Manic episode, unspecified Plan 03/26: offer lithium and seroquel for becca. continue methimazole and beta joanne for hyperthyroidism as started at [facility]. trend TFTs. 12b. 03/27: taking methimazole and beta joanne. refused HS meds last night, took morning meds today. continue to encourage medication compliance. 03/28: intermittently taking meds. wants all meds in morning. pressured, manic, paranoid delusions. encouraged to take lithium but states he will not. all meds ordered for morning. 03/29: Keeping to self. no groups. observed laying in bed listening to music on unit headphones. pleasant. Pt reports feeling good today and sleeping well. declined lithium and zyprexa. denies SI/HI/VH/AH. continue current tx plan. 03/30:Irritable. upset he was unable to use his personal hygiene products. Per nursing, pt threatened staff and squeezed tooth paste throughout unit hallway to show his frustration. Pt was able to calm down after speaking with security. declined medications. 03/31: Keeping to self. laying in bed listening to music. refused medications. calm today. Patient reports feeling great ; pt stated, nothing is wrong with me. I'm waiting so I can leave tomorrow. I'm hoping for the best . denies SI/HI/VH/AH. per nursing, slept 6 hours. Continue current tx plan. 04/01: variably calm on the unit versus highly agitated. paranoid delusions, irritability, lability continue. seems to believe MD has met him prior to the present hospitalization and is stalking him. believes brother behind conspiracy to have him psychiatrically hospitalized. has been refusing all medications, including for hyperthyroidism. informed he would be filed on. filed. continue to offer medications. 04/02: continues agitated, belittling, verbally aggressive, refusing all medications including for hyperthyroidism. continue to offer medication. 04/03: paranoid there is a conspiracy to hospitalize him. threatening to stick a stick in staff once he is released by [facility]. insists his hyperthyroidism was cured at [facility]. asserts there is NOTHING wrong with him. continue to offer medication. 04/04: irritable, rejecting. verbally abuses MD and sends him away: see you on monday [in court]. continue to offer medication for thyroid condition and mental illness. 04/05 continue tx. suspicious and guarded, accusatory, verbal threats to hurt staff and peers 04/06 intrusive, posturing towards staff and peer who he thinks is not real and is an impostor, continues to make verbal threats to harm him but thinks that because he is not real he may not experience any pain. 04/07: threatening statements and behaviors of yesterday noted. pt sleeping this morning, dismissive of MD. 04/08: asleep days. committed and meds ordered by court. 04/09: on being informed of court order and MD insisting on meds, pt escalated to hurling food item in container against wall at high speed and saying he wished he could do the same to MD's head. pt eventually took court ordered meds PO. sensodyne and excedrin not available in pharmacy (pt requesting them). 04/10: continue tx. Pt accepting medication today. 04/11: Keeping to self. Lying in bed most of morning. Declined to meet with T/W. Pt stated, I'm fine. I don't need anything . Listening to headphones in room. Declined court ordered PO medications; received IM medications. Refused vital signs.continue tx plan. 04/12: got IMs yesterday, took PO this morning. sleepy, no concerns or complaints. 04/13: taking PO meds again. slept 7 hours. sleepy again mid morning refusing interview. continue current mgmt. 04/14: sleeping, rousable. denies being sedated or tired, says he's just bored. no questions or complaints. informed of need to check labs. check lithium level and thyroid labs tonight. 04/15: refusing labs. delusional re his brother harming him. verbally abusive toward MD. spat in floor. happy with improvement in proptosis. 04/16: Lying in bed. Calm. cooperative. guarded. Pt reports feeling tired this morning d/t poor sleep last night. Pt stated, I don't need anything. I didn't sleep well so I'm trying to catch up . denies any issues at this time. denies SI/HI/VH/AH. Continue current tx plan. 04/17: more calm today, less explosive. continue current mgmt. 04/18: continues more calm. tolerating moments of frustration without verbally attacking MD. slept only 2 hours overnight, however. continue current mgmt. 04/19 continues to push boundaries and limits with staff mike around cell phone- 04/20 - aggressive with staff and unpredictable- threw water pitcher at staff behind desk/-when seen by provider passive in bed-denying all compaints/sys- no insight 04/21: appears as per last week. more difficult behaviors around cell phone use, did throw pitcher of water at RN monday over phone use and was restrained. continue current mgmt. 04/22: continues to have conflict around cell phone use. consolidate zyprexa at HS to decrease daytime sedation. 1:1 allegra shift until peer he is accusing of not being a real patient and appears to be targeting discharges tomorrow. 04/23: lithium 0.6 on 600 BID. sleeping better, remains delusional (telling SW who is marginally younger than him that she could be his daughter). just changed zyprexa dosing as of last night. continue current regimen and observe for continued stabilization. T/C slight increase in lithium dosing. 04/24: Laying in bed. guarded. calm. did not want to get out of bed to meet with T/W. Pt reports feeling great today but declined to go into detail. listening to music on unit headphones. Pt stated, I'm fine. I don't need anything . denies any issues at this time. denies SI/HI/VH/AH. Continue current tx plan. 04/25: Laying in bed. keeping to self. calm. paranoid. Discussed incident that occurred with staff last evening. Pt stated, the counselor made up a lie yesterday. I said she looks like my ex-girlfriend. I know they are related. They want to make up a lie to irritate me. They are trying to talk to me so they can use recording devices and make me look some kind of way . listening to music on unit headphones. denies SI/HI/VH/AH. Continue current tx plan. 04/26: Continue current regimen and plans. Increase Zyprexa 20 mg q.h.s. fresh air break withheld 04/27: Continue current regimen and plans 04/28: somewhat less irritable and agitated than last week. however, over the weekend was claiming he was the father of a footballer on TV and also that a staff member is a twin of his ex-GF (and he pushed staff member). TFTs improving. continue current mgmt. 04/29: no change in presentation. continue current mgmt. 04/30: no irritable edge today. calm, pleasant. engaging in small talk. reality testing not pressed. continue current mgmt for now. 05/01: no change in presentation. continue current mgmt. 05/02: BPs coming down, DC beta joanne as pt has been refusing anyway. remains not antagonistic toward MD. using phone appropriately. continue current mgmt otherwise. 05/03 continue 05/04: remains delusional, irritable/labile when delusional system confronted. declines to sign TOMMY for [facility] records. continue current mgmt. 05/06: declining to meet with MD, but does meet with medical student. remains upset about yesterday's confrontation re his delusional system. 05/07: Active on unit. keeping to self. pacing unit hallway while listening to unit headphones. medication compliant. patient reports feeling good ; pt stated, I'm just waiting to leave here. I want to return to my life and do things like go grocery shopping . denies SI/HI/VH/AH. Continue current tx plan. 05/08: stable presentation, delusions not being brought to the surface daily. remains affectively improved from admission. continue current mgmt. 05/09: calm, pleasant. no questions or complaints. continue current mgmt. 05/10: no change in presentation. due to lack of improvement in dental infection Sx, DC PCN and start augmentin. 05/11: no change in presentation. continue current mgmt. 05/12: as for yesterday. dental pain improving a bit. 05/13: expressed to medical student that his brother poisoned him, causing his thyroid disease. no change in presentation. continue current mgmt. 05/14: Pacing unit hallway. keeping to self. patient reports feeling good today; denies any issues at this time. denies SI/HI/VH/AH. per nursing, slept 5 hours. Continue current tx plan. 05/15: slept 6 hours. otherwise isolative, difficult to engage. continue current mgmt. 05/16: slept 7 hours. as for yesterday otherwise. 05/17/25: Slept well, no issue with appetite, skinny and pretty tall. Compliant with medication. No side effects Calm and pleasant upon approach. Some what paranoid. Tangential, however denies other safety concerns. Questions if he is discharging soon. He is on antibiotic for 7 days for mouth pain/tooth pain. We will finish the 7 course up in antibiotic after tonight dose. Then discontinue. 05/18/25: Slept for 5 hours plus hours this morning. In bed most of the shift, no behavior issues. Denies other safety concerns. 05/19: in bed days, up eves. no change in presentation. continue current mgmt. 05/20: no change in presentation. check labs. 05/21: lithium low, TFTs mixed and not all back. increase lithium from 600 BID to 600/900. trend BUN/Cr, with slight elevation. otherwise continue current mgmt. 05/22: no change in presentation. continue current mgmt. 05/23: does not deny someone stole his sperm and impregnated his landlord's child with it. irritable. c/o dental pain, antibx restarted. otherwise continue current mgmt. 05/14: no change in mgt 05/25: more isolative today; no change in mgt 05/26: decreases in methimazole noted. continue psych regimen as is. pt refused to interact with MD today. 05/27: i'm sleeping. no change in presentation. labs tonight. 05/28: no change in behavior. lithium 0.66, BUN stable. continue current mgmt. 05/29: irritable. continue current mgmt. 05/30: no longer in single room. still not engaging, sleeping days. continue current mgmt. 05/31:laying in bed. declined to meet with T/W. pt stated, I want to sleep. I didn't sleep enough . Pt encouraged to reach out to staff if he needs anything. Continue current tx plan. 06/01: Similar to yesterday. laying in bed. Irritable. declined to meet with T/W and pulled bed sheets over head. pt stated, I don't want to talk. I want to sleep . difficult to engage. Continue current tx plan. 06/02: Similar to yesterday. laying in bed. Irritable. declined to meet with T/W. Observed getting drink from kitchen; T/W approached pt and asked if they could speak. patient declined to acknowledge T/W and walked past. Continue current tx plan. 06/03: no change in behavior. continue tx plan. 06/04/25: Passive engaged in the assessment, in bed mostly sleeping this morning which could be interfere with his nighttime. Cover body under the blanket Slept for 4-5 hours last night. Was medication compliant, attended no groups, isolative to self in room. No SI/SIB/HI/AVH expressed. 06/05: continue tx plan. 06/06: reports feeling fine ; continues guarded. difficult to engage. declining to meet with T/W. continue tx plan. 06/07/25: Slept for 4 hours at night, but has been sleeping most of the day yesterday as well. Spent majority of the shift in bed, was medication compliant. Passive engaged in the conversation. He said he will try to change the sleeping pattern so that he can be awake more during the daytime. Appear to be sedated in the morning. No safety behavior. 06/08/25: Slept for 3-4 hours last night, compliant with medications. Denies side effects, denies other safety concerns. Continued to encourage patient to up and down more than on the unit he spent most of the day sleeping. He is pleasant upon approach. No other behavior issues. Denied voices/hallucinations. Suicide thoughts or homicidal thoughts. 06/09: sleeping, minimally rousable. denies problems. continue current mgmt. 06/10: sleeping all day, up most of the night. minimally rousable. denies problems. continue current mgmt. per JAMAICA Arrington: Jean said when he leaves he can return to [facility]. he was living with a lady there and can go back. He plans to get a job to pay off his debt. He said he owes money because they sent him back here due to losing his passport and he owes them money for the temporary emergency passport and the flight back to the . so his main focus is to get a job. he said he will try things here first and if it doesn't work out he plans to return to [place]. 06/11/25: Passively engaged in conversation while in bed sleeping/resting. Able to answer question appropriately, but seems to be minimized. Denies SI/SIB/HI/AVH. He slept 5 hours last night, spent most of the day in bed sleeping. Attempted to no groups, observed out to the afternoon in the subramanian near the nurse station. No change in presentation. Encourage groups,up and engaged in groups. 06/12: not engaging. no complaints or questions re med changes. cross-taper zyprexa in favor of invega, give MONTERO invega. tonight, decrease zyprexa to 15 mg and start invega 3 mg. otherwise continue current mgmt. 06/13: continues avoidant and disengaged. denies side effects from med change last night. informed cross-titration will advance tonight. decrease zyprexa to 10 mg tonight, increase paliperidone to 6 mg. plan to continue by 5 mg zyprexa and 3 mg paliperidone increments every several days as tolerated until zyprexa DCed and paliperidone at 12 mg QHS. once it is established pt is tolerating PO Paliperidone, invega sustenna to be administered. 06/14: Continue current regimen and plans 06/15: Continue current plans and regimen 06/16: irritable re neuroleptic change. denies side effects or problems with it, however. minimally engageable. increase invega to 9 QHS and decrfease zyprexa to 5 QHS. 06/17/25: Continued to be irritable regarding medication change/titration. However engaged in conversation, hyper verbal, paranoid, reports medication slow his thoughts down and he does not not like it. Poor insight and poor judgment. He thinks he only need lithium, not other medications. Remind patient to continue doing the sleep pattern changing. However his in bed mostly this morning. Slept for 4-5 hours last night. 06/18/25: Slept for 5 hours last night as he continues sleeping during daytime. Compliant with meds, did not c/o side effects.Passingly engaging in assessment. Denies safety concerns. Tolerate the tritation well. Will increase Inveag up to max of 12 tomorrow and Discontinue Olanzepine at HS. Continue to encourage up and out on day so he can sleep better at HS. 06/19/25: Patient slept for 5.5 hours last night, was medication compliant, mostly in his room yesterday but seen more often in the evening. Patient is awake in his room, listen to music, his morning tray was taken away and clean the area. He is very pleasant to talk to today, reports he feels good, denies side effects from medications, denies any safety concerns. Denies feeling sedation, denies anxiety/depression. He is receptive with the plan of medication over the weekends and next week, happy to hear about the medication plan. He also agree with the MONTERO Invega Sustenna on Monday. Encourage him to go out and attended to groups, he said that he will. Reported that he was out for groups a couple of times last week. Discontinue Haldol p.r.n.. Discontinue scheduled Zyprexa 5 mg at bedtime. Only on 10 Zyprexa at g IM daily p.r.n. as backup orders if refused Invega. Invega 12 mg at bedtime. Plan to monitor over the weekends and will give long-acting injection on Monday if tolerate with the p.o. well Reduce Seroquel 200 mg p.r.n. at bedtime to 100 p.r.n. at bedtime for insomnia. Seroquel 50 mg b.i.d. p.r.n. for agitation. Discontinue Motrin. Patient on lithium. Labs were for MondayJune 20: CMP, TSH with free T4. 06/20/25: In bed most of the day, was compliant with medication, however refused labs work. Re- scheduled for Monday. Continue with Invega 12 mg at bedtime. We will reassess and offer long-acting injection on Monday. Continue to encourage patient to get up and go to some groups. No safety concerns expressed. Minimal peer and staff interaction. Patient educated on: medication risk/benefits and therapeutic strategies Informed Consent: further education needed Reason for continued inpatient stay Substantial Risk for: med/psych decompensation Time Spent With Patient Time: Total time managing care of this patient today ____ minutes.
[2025-06-20 19:40] VITALS: BP 139/81; PULSE 96; RESP 16; TEMP 36.4; O2SAT 99
[2025-06-20 21:02] LABS: Lithium 0.80 mmol/L (0.60-1.20)
[2025-06-20 21:15] LABS: Alanine Aminotransferase 32 U/L (0-40); Albumin Level 4.6 g/dL (3.5-5.0); Alkaline Phosphatase 150 U/L (39-117); Anion Gap 9 (12-20); Aspartate Amino Transferase 38 U/L (5-37); Blood Urea Nitrogen 14 mg/dL (9-16); Calcium 9.8 mg/dL (8.4-10.2); Carbon Dioxide 28 mmol/L (22-29); Chloride 106 mmol/L (96-108); Creatinine Clr Calc Pharmacy 135.6; Estimated Glomerular Filt Rate > 60; Potassium 4.0 mmol/L (3.3-5.1); Sodium 139 mmol/L (135-145); Total Protein 7.7 g/dL (6.5-8.0)
[2025-06-20 21:32] LABS: Free T4 (Free Thyroxine) 0.99 ng/dL (0.71-1.85); Thyroid Stimulating Hormone < 0.01 uIU/mL (0.32-4.0)
[2025-06-21 09:50] VITALS: BP 113/56; PULSE 83; RESP 16; TEMP 36.7; O2SAT 96
--- NOTE | 2025-06-21 17:19 | P.PNPSI_ITS ---
Subjective Subjective Date of Service: 06/21/25 Reason For Visit: psychotic disorder Interim History: no change in presentation. per staff, denies Sx. sleeps all day. labs done eves. slept 3 hours overnight, but again sleeps all day. Mental Status Exam Mental Status Exam Narrative: He is under blanket, in bed sleeping. Passively engaging in assessment. Denies safety concerns. No SI//SIB/HI/AVH expressed. Isolative, in bed most of the day. Diagnostics Vital Signs (24Hr): Vital Signs - 24 hr 06/20/25 19:40 06/21/25 09:50 Temperature 97.6 F 98.1 F Pulse Rate 96 83 Respiratory Rate 16 16 Blood Pressure 139/81 113/56 L Pulse Oximetry 99 96 Oxygen Delivery Method Room Air Room Air BMI result Body Mass Index 24.0 Labs 03/27/25 09:44 06/20/25 20:35 Labs: Laboratory Results - last 48 hr 06/20/25 20:35 Sodium 139 Potassium 4.0 Chloride 106 Carbon Dioxide 28 Anion Gap 9 L BUN 14 Creatinine 1.04 Estim Creat Clear Calc 135.6 Estimated GFR > 60 Random Glucose 101 Calcium 9.8 Total Bilirubin 0.6 AST 38 H ALT 32 Alkaline Phosphatase 150 H Total Protein 7.7 Albumin 4.6 TSH < 0.01 L Free T4 0.99 [place] 0.80 Medications Medications Current Medications Acetaminophen (Acetaminophen 325 Mg Tablet) 650 mg PO Q6H PRN PRN Reason: Headache/Pain, Scale 1-10 Last Admin: 04/01/25 23:20 Dose: 650 mg Al Hydroxide/Mg Hydroxide (Magnesium Hydrox/Alum Hydrox 30 Ml Oral.Susp) 30 ml PO Q6H PRN PRN Reason: Heartburn/Nausea Benzocaine (Benzocaine 20 % Oral Gel 14 Gm Tube) 1 appl MUCOUS MEM QID PRN; Protocol PRN Reason: Mouth Sore Pain Last Admin: 04/26/25 18:33 Dose: 1 appl Diazepam (Diazepam 10 Mg/2 Ml Cartridge) 10 mg IM BID PRN PRN Reason: refusal of lithium, per everett Last Admin: 04/11/25 09:56 Dose: 10 mg Hydroxyzine HCl (Hydroxyzine Hcl 25 Mg Tablet) 25 mg PO Q6H PRN PRN Reason: mild anxiety [place] Carbonate ([place] Carbonate Er 300 Mg Tablet.Er) 600 mg PO DAILY KRISTAL Last Admin: 06/21/25 09:51 Dose: 600 mg [place] Carbonate ([place] Carbonate Er 450 Mg Tablet.Er) 900 mg PO DAILY@2300 [facility] Last Admin: 06/21/25 00:14 Dose: 900 mg Magnesium Hydroxide (Milk Of Magnesia 30 Ml Oral.Susp) 30 ml PO DAILY PRN PRN Reason: Constipation Methimazole (Methimazole 10 Mg Tablet) 10 mg PO DAILY [facility] Last Admin: 06/21/25 09:51 Dose: 10 mg Nicotine (Nicotine 21 Mg Patch.Td24) 21 mg TRANSDERMA DAILY PRN PRN Reason: nicotine cravings Last Admin: 04/12/25 17:06 Dose: 21 mg Nicotine Polacrilex (Nicotine Polacrilex Lozenge 2 Mg Lozenge) 2 mg BUCCAL Q1H PRN PRN Reason: Nicotine Cravings Last Admin: 04/30/25 08:49 Dose: 2 mg Patient Own Medication Excedrin 250/250/65mg 2 each PO Q8H PRN PRN Reason: Migraine Headache Last Admin: 04/18/25 18:03 Dose: 2 each Olanzapine (Olanzapine 10 Mg Vial) 10 mg IM DAILY PRN PRN Reason: if refuse Invega PO Paliperidone (Paliperidone Er 6 Mg Tab.Er.24) 12 mg PO DAILY@2300 [facility] Last Admin: 06/21/25 00:15 Dose: 12 mg Quetiapine Fumarate (Quetiapine Fumarate 100 Mg Tablet) 100 mg PO BEDTIME PRN PRN Reason: insomnia Quetiapine Fumarate (Quetiapine Fumarate 50 Mg Tablet) 50 mg PO BID PRN PRN Reason: agitation Allergies Allergies Allergy/AdvReac Type Severity Reaction Status Date / Time No Known Allergies Allergy Verified 03/26/25 14:24 Assessment & Plan Assessment & Plan (1) Graves disease: Status: Acute Code(s): E05.00 - Thyrotoxicosis with diffuse goiter without thyrotoxic crisis or storm Assessment and Plan: Hyperthyroidism/Graves disease. He will need follow up with endocrinology as an outpatient He will also need a primary care doctor referral as an outpatient Discussed with Dr. Bejarano, patient will need free T4 weekly Decrease Methimazole to 15 mgs daily for three days and then 10 mgs daily- discussed with patient he is aware of plan and rationale. TSH and free T4 every 4 weeks. No need to draw thyroid stimulation immunology or TSH receptor AB (2) Dental abscess: Status: Acute Code(s): K04.7 - Periapical abscess without sinus Assessment and Plan: Carious tooth/dental infection Recently treated with PEN VK 500 mg q.6 hours for 7 days Patient will need follow up with dentist on discharge for tooth extraction Motrin helping pain. (3) Becca: Status: Acute Code(s): F30.9 - Manic episode, unspecified Plan 03/26: offer lithium and seroquel for becca. continue methimazole and beta joanne for hyperthyroidism as [place] [facility] trend TFTs. 12b. 03/27: taking methimazole and beta joanne. refused HS meds last night, took morning meds today. continue to encourage medication compliance. 03/28: intermittently taking meds. wants all meds in morning. pressured, manic, paranoid delusions. encouraged to take lithium but states he will not. all meds ordered for morning. 03/29: Keeping to self. no groups. observed laying in bed listening to music on unit headphones. pleasant. Pt reports feeling good today and sleeping well. declined lithium and zyprexa. denies SI/HI/VH/AH. continue current tx plan. 03/30:Irritable. upset he was unable to use his personal hygiene products. Per nursing, pt threatened staff and squeezed tooth paste throughout unit hallway to show his frustration. Pt was able to calm down after speaking with security. declined medications. 03/31: Keeping to self. laying in bed listening to music. refused medications. calm today. Patient reports feeling great ; pt stated, nothing is wrong with me. I'm waiting so I can leave tomorrow. I'm hoping for the best . denies SI/HI/VH/AH. per nursing, slept 6 hours. Continue current tx plan. 04/01: variably calm on the unit versus highly agitated. paranoid delusions, irritability, lability continue. seems to believe has met him prior to the present hospitalization and is stalking him. believes brother behind conspiracy to have him psychiatrically hospitalized. has been refusing all medications, including for hyperthyroidism. informed he would be filed on. filed. continue to offer medications. 04/02: continues agitated, belittling, verbally aggressive, refusing all medications including for hyperthyroidism. continue to offer medication. 04/03: paranoid there is a conspiracy to hospitalize him. threatening to stick a stick in staff once he is released by business intelligence reporting analyst. insists his hyperthyroidism was cured at [facility]. asserts there is NOTHING wrong with him. continue to offer medication. 04/04: irritable, rejecting. verbally abuses MD and sends him away: see you on monday [in court]. continue to offer medication for thyroid condition and mental illness. 04/05 continue tx. suspicious and guarded, accusatory, verbal threats to hurt staff and peers 04/06 intrusive, posturing towards staff and peer who he thinks is not real and is an impostor, continues to make verbal threats to harm him but thinks that because he is not real he may not experience any pain. 04/07: threatening statements and behaviors of yesterday noted. pt sleeping this morning, dismissive of MD. 04/08: asleep days. committed and meds ordered by court. 04/09: on being informed of court order and MD insisting on meds, pt escalated to hurling food item in container against wall at high speed and saying he wished he could do the same to MD's head. pt eventually took court ordered meds PO. sensodyne and excedrin not available in pharmacy (pt requesting them). 04/10: continue tx. Pt accepting medication today. 04/11: Keeping to self. Lying in bed most of morning. Declined to meet with T/W. Pt stated, I'm fine. I don't need anything . Listening to headphones in room. Declined court ordered PO medications; received IM medications. Refused vital signs.continue tx plan. 04/12: got IMs yesterday, took PO this morning. sleepy, no concerns or complaints. 04/13: taking PO meds again. slept 7 hours. sleepy again mid morning refusing interview. continue current mgmt. 04/14: sleeping, rousable. denies being sedated or tired, says he's just bored. no questions or complaints. informed of need to check labs. check lithium level and thyroid labs tonight. 04/15: refusing labs. delusional re his brother harming him. verbally abusive toward MD. spat in floor. happy with improvement in proptosis. 04/16: Lying in bed. Calm. cooperative. guarded. Pt reports feeling tired this morning d/t poor sleep last night. Pt stated, I don't need anything. I didn't sleep well so I'm trying to catch up . denies any issues at this time. denies SI/HI/VH/AH. Continue current tx plan. 04/17: more calm today, less explosive. continue current mgmt. 04/18: continues more calm. tolerating moments of frustration without verbally attacking MD. slept only 2 hours overnight, however. continue current mgmt. 04/19 continues to push boundaries and limits with staff mike around cell phone- 04/20 - aggressive with staff and unpredictable- threw water pitcher at staff behind desk/-when seen by provider passive in bed-denying all compaints/sys- no insight 04/21: appears as per last week. more difficult behaviors around cell phone use, did throw pitcher of water at RN monday over phone use and was restrained. continue current mgmt. 04/22: continues to have conflict around cell phone use. consolidate zyprexa at HS to decrease daytime sedation. 1:1 allegra shift until peer he is accusing of not being a real patient and appears to be targeting discharges tomorrow. 04/23: lithium 0.6 on 600 BID. sleeping better, remains delusional (telling SW who is marginally younger than him that she could be his daughter). just changed zyprexa dosing as of last night. continue current regimen and observe for continued stabilization. T/C slight increase in lithium dosing. 04/24: Laying in bed. guarded. calm. did not want to get out of bed to meet with T/W. Pt reports feeling great today but declined to go into detail. listening to music on unit headphones. Pt stated, I'm fine. I don't need anything . denies any issues at this time. denies SI/HI/VH/AH. Continue current tx plan. 04/25: Laying in bed. keeping to self. calm. paranoid. Discussed incident that occurred with staff last evening. Pt stated, the counselor made up a lie yesterday. I said she looks like my ex-girlfriend. I know they are related. They want to make up a lie to irritate me. They are trying to talk to me so they can use recording devices and make me look some kind of way . listening to music on unit headphones. denies SI/HI/VH/AH. Continue current tx plan. 04/26: Continue current regimen and plans. Increase Zyprexa 20 mg q.h.s. fresh air break withheld 04/27: Continue current regimen and plans 04/28: somewhat less irritable and agitated than last week. however, over the weekend was claiming he was the father of a footballer on TV and also that a staff member is a twin of his ex-GF (and he pushed staff member). TFTs improving. continue current mgmt. 04/29: no change in presentation. continue current mgmt. 04/30: no irritable edge today. calm, pleasant. engaging in small talk. reality testing not pressed. continue current mgmt for now. 05/01: no change in presentation. continue current mgmt. 05/02: BPs coming down, DC beta joanne as pt has been refusing anyway. remains not antagonistic toward MD. using phone appropriately. continue current mgmt otherwise. 05/03 continue 05/04: remains delusional, irritable/labile when delusional system confronted. declines to sign TOMMY for [facility] records. continue current mgmt. 05/06: declining to meet with MD, but does meet with medical student. remains upset about yesterday's confrontation re his delusional system. 05/07: Active on unit. keeping to self. pacing unit hallway while listening to unit headphones. medication compliant. patient reports feeling good ; pt stated, I'm just waiting to leave here. I want to return to my life and do things like go grocery shopping . denies SI/HI/VH/AH. Continue current tx plan. 05/08: stable presentation, delusions not being brought to the surface daily. remains affectively improved from admission. continue current mgmt. 05/09: calm, pleasant. no questions or complaints. continue current mgmt. 05/10: no change in presentation. due to lack of improvement in dental infection Sx, DC PCN and start augmentin. 05/11: no change in presentation. continue current mgmt. 05/12: as for yesterday. dental pain improving a bit. 05/13: expressed to medical student that his brother poisoned him, causing his thyroid disease. no change in presentation. continue current mgmt. 05/14: Pacing unit hallway. keeping to self. patient reports feeling good today; denies any issues at this time. denies SI/HI/VH/AH. per nursing, slept 5 hours. Continue current tx plan. 05/15: slept 6 hours. otherwise isolative, difficult to engage. continue current mgmt. 05/16: slept 7 hours. as for yesterday otherwise. 05/17/25: Slept well, no issue with appetite, skinny and pretty tall. Compliant with medication. No side effects Calm and pleasant upon approach. Some what paranoid. Tangential, however denies other safety concerns. Questions if he is discharging soon. He is on antibiotic for 7 days for mouth pain/tooth pain. We will finish the 7 course up in antibiotic after tonight dose. Then discontinue. 05/18/25: Slept for 5 hours plus hours this morning. In bed most of the shift, no behavior issues. Denies other safety concerns. 05/19: in bed days, up eves. no change in presentation. continue current mgmt. 05/20: no change in presentation. check labs. 05/21: lithium low, TFTs mixed and not all back. increase lithium from 600 BID to 600/900. trend BUN/Cr, with slight elevation. otherwise continue current mgmt. 05/22: no change in presentation. continue current mgmt. 05/23: does not deny someone stole his sperm and impregnated his landlord's child with it. irritable. c/o dental pain, antibx restarted. otherwise continue current mgmt. 05/14: no change in mgt 05/25: more isolative today; no change in mgt 05/26: decreases in methimazole noted. continue psych regimen as is. pt refused to interact with MD today. 05/27: i'm sleeping. no change in presentation. labs tonight. 05/28: no change in behavior. lithium 0.66, BUN stable. continue current mgmt. 05/29: irritable. continue current mgmt. 05/30: no longer in single room. still not engaging, sleeping days. continue current mgmt. 05/31:laying in bed. declined to meet with T/W. pt stated, I want to sleep. I didn't sleep enough . Pt encouraged to reach out to staff if he needs anything. Continue current tx plan. 06/01: Similar to yesterday. laying in bed. Irritable. declined to meet with T/W and pulled bed sheets over head. pt stated, I don't want to talk. I want to sleep . difficult to engage. Continue current tx plan. 06/02: Similar to yesterday. laying in bed. Irritable. declined to meet with T/W. Observed getting drink from kitchen; T/W approached pt and asked if they could speak. patient declined to acknowledge T/W and walked past. Continue current tx plan. 06/03: no change in behavior. continue tx plan. 06/04/25: Passive engaged in the assessment, in bed mostly sleeping this morning which could be interfere with his nighttime. Cover body under the blanket Slept for 4-5 hours last night. Was medication compliant, attended no groups, isolative to self in room. No SI/SIB/HI/AVH expressed. 06/05: continue tx plan. 06/06: reports feeling fine ; continues guarded. difficult to engage. declining to meet with T/W. continue tx plan. 06/07/25: Slept for 4 hours at night, but has been sleeping most of the day yesterday as well. Spent majority of the shift in bed, was medication compliant. Passive engaged in the conversation. He said he will try to change the sleeping pattern so that he can be awake more during the daytime. Appear to be sedated in the morning. No safety behavior. 06/08/25: Slept for 3-4 hours last night, compliant with medications. Denies side effects, denies other safety concerns. Continued to encourage patient to up and down more than on the unit he spent most of the day sleeping. He is pleasant upon approach. No other behavior issues. Denied voices/hallucinations. Suicide thoughts or homicidal thoughts. 06/09: sleeping, minimally rousable. denies problems. continue current mgmt. 06/10: sleeping all day, up most of the night. minimally rousable. denies problems. continue current mgmt. per JAMAICA Arrington: Jean said when he leaves he can return to [facility]. he was living with a lady there and can go back. He plans to get a job to pay off his debt. He said he owes money because they sent him back here due to losing his passport and he owes them money for the temporary emergency passport and the flight back to the . so his main focus is to get a job. he said he will try things here first and if it doesn't work out he plans to return to [place]. 06/11/25: Passively engaged in conversation while in bed sleeping/resting. Able to answer question appropriately, but seems to be minimized. Denies SI/SIB/HI/AVH. He slept 5 hours last night, spent most of the day in bed sleeping. Attempted to no groups, observed out to the afternoon in the subramanian near the nurse station. No change in presentation. Encourage groups,up and engaged in groups. 06/12: not engaging. no complaints or questions re med changes. cross-taper zyprexa in favor of invega, give MONTERO invega. tonight, decrease zyprexa to 15 mg and start invega 3 mg. otherwise continue current mgmt. 06/13: continues avoidant and disengaged. denies side effects from med change last night. informed cross-titration will advance tonight. decrease zyprexa to 10 mg tonight, increase paliperidone to 6 mg. plan to continue by 5 mg zyprexa and 3 mg paliperidone increments every several days as tolerated until zyprexa DCed and paliperidone at 12 mg QHS. once it is established pt is tolerating PO Paliperidone, invega sustenna to be administered. 06/14: Continue current regimen and plans 06/15: Continue current plans and regimen 06/16: irritable re neuroleptic change. denies side effects or problems with it, however. minimally engageable. increase invega to 9 QHS and decrfease zyprexa to 5 QHS. 06/17/25: Continued to be irritable regarding medication change/titration. However engaged in conversation, hyper verbal, paranoid, reports medication slow his thoughts down and he does not not like it. Poor insight and poor judgment. He thinks he only need lithium, not other medications. Remind patient to continue doing the sleep pattern changing. However his in bed mostly this morning. Slept for 4-5 hours last night. 06/18/25: Slept for 5 hours last night as he continues sleeping during daytime. Compliant with meds, did not c/o side effects.Passingly engaging in assessment. Denies safety concerns. Tolerate the tritation well. Will increase Inveag up to max of 12 tomorrow and Discontinue Olanzepine at HS. Continue to encourage up and out on day so he can sleep better at HS. 06/19/25: Patient slept for 5.5 hours last night, was medication compliant, mostly in his room yesterday but seen more often in the evening. Patient is awake in his room, listen to music, his morning tray was taken away and clean the area. He is very pleasant to talk to today, reports he feels good, denies side effects from medications, denies any safety concerns. Denies feeling sedation, denies anxiety/depression. He is receptive with the plan of medication over the weekends and next week, happy to hear about the medication plan. He also agree with the MONTERO Invega Sustenna on Monday. Encourage him to go out and attended to groups, he said that he will. Reported that he was out for groups a couple of times last week. Discontinue Haldol p.r.n.. Discontinue scheduled Zyprexa 5 mg at bedtime. Only on Zyprexa at g IM daily p.r.n. as backup orders if refused Invega. Invega 12 mg at bedtime. Plan to monitor over the weekends and will give long- acting injection on Monday if tolerate with the p.o. well Reduce Seroquel 200 mg p.r.n. at bedtime to 100 p.r.n. at bedtime for insomnia. Seroquel 50 mg b.i.d. p.r.n. for agitation. Discontinue Motrin. Patient on lithium. Labs were for MondayJune 20: CMP, TSH with free T4. 06/20/25: In bed most of the day, was compliant with medication, however refused labs work. Re- scheduled for Monday. Continue with Invega 12 mg at bedtime. We will reassess and offer long-acting injection on Monday. Continue to encourage patient to get up and go to some groups. No safety concerns expressed. Minimal peer and staff interaction. 06/21: no change in presentation. start Monday. no s/e from invega. otherwise continue current mgmt. Reason for continued inpatient stay Substantial Risk for: harm to self, harm to others and inability to function Time Spent With Patient Time: Total time managing care of this patient today ____ minutes.
[2025-06-21 19:43] VITALS: BP 130/82; PULSE 98; RESP 16; O2SAT 99
[2025-06-22 08:00] VITALS: BP 148/73; PULSE 89; RESP 16; TEMP 37.1; O2SAT 99
--- NOTE | 2025-06-22 16:22 | P.PNPSI_ITS ---
Subjective Subjective Date of Service: 06/22/25 Reason For Visit: psychotic disorder Interim History: no issues. informed he may receive invega MONTERO tomorrow. per staff, slept all day, then 4 hours overnight. no issues. Mental Status Exam Mental Status Exam Narrative: He is under blanket, in bed sleeping. Passively engaging in assessment. Denies safety concerns. No SI//SIB/HI/AVH expressed. Isolative, in bed most of the day. Diagnostics Vital Signs (24Hr): Vital Signs - 24 hr 06/21/25 19:43 06/22/25 08:00 Temperature 98.7 F Pulse Rate 98 89 Respiratory Rate 16 16 Blood Pressure 130/82 148/73 H Pulse Oximetry 99 99 Oxygen Delivery Method Room Air Room Air BMI result Body Mass Index 24.0 Labs 03/27/25 09:44 06/20/25 20:35 Labs: Laboratory Results - last 48 hr 06/20/25 20:35 Sodium 139 Potassium 4.0 Chloride 106 Carbon Dioxide 28 Anion Gap 9 L BUN 14 Creatinine 1.04 Estim Creat Clear Calc 135.6 Estimated GFR > 60 Random Glucose 101 Calcium 9.8 Total Bilirubin 0.6 AST 38 H ALT 32 Alkaline Phosphatase 150 H Total Protein 7.7 Albumin 4.6 TSH < 0.01 L Free T4 0.99 [place] 0.80 Medications Medications Current Medications Acetaminophen (Acetaminophen 325 Mg Tablet) 650 mg PO Q6H PRN PRN Reason: Headache/Pain, Scale 1-10 Last Admin: 04/01/25 23:20 Dose: 650 mg Al Hydroxide/Mg Hydroxide (Magnesium Hydrox/Alum Hydrox 30 Ml Oral.Susp) 30 ml PO Q6H PRN PRN Reason: Heartburn/Nausea Benzocaine (Benzocaine 20 % Oral Gel 14 Gm Tube) 1 appl MUCOUS MEM QID PRN; Protocol PRN Reason: Mouth Sore Pain Last Admin: 04/26/25 18:33 Dose: 1 appl Diazepam (Diazepam 10 Mg/2 Ml Cartridge) 10 mg IM BID PRN PRN Reason: refusal of lithium, per everett Last Admin: 04/11/25 09:56 Dose: 10 mg Hydroxyzine HCl (Hydroxyzine Hcl 25 Mg Tablet) 25 mg PO Q6H PRN PRN Reason: mild anxiety [place] Carbonate ([place] Carbonate Er 300 Mg Tablet.Er) 600 mg PO DAILY KRISTAL Last Admin: 06/22/25 08:18 Dose: 600 mg [place] Carbonate ([place] Carbonate Er 450 Mg Tablet.Er) 900 mg PO DAILY@2300 [facility] Last Admin: 06/22/25 00:12 Dose: 900 mg Magnesium Hydroxide (Milk Of Magnesia 30 Ml Oral.Susp) 30 ml PO DAILY PRN PRN Reason: Constipation Methimazole (Methimazole 10 Mg Tablet) 10 mg PO DAILY [facility] Last Admin: 06/22/25 08:17 Dose: 10 mg Nicotine (Nicotine 21 Mg Patch.Td24) 21 mg TRANSDERMA DAILY PRN PRN Reason: nicotine cravings Last Admin: 04/12/25 17:06 Dose: 21 mg Nicotine Polacrilex (Nicotine Polacrilex Lozenge 2 Mg Lozenge) 2 mg BUCCAL Q1H PRN PRN Reason: Nicotine Cravings Last Admin: 04/30/25 08:49 Dose: 2 mg Patient Own Medication Excedrin 250/250/65mg 2 each PO Q8H PRN PRN Reason: Migraine Headache Last Admin: 04/18/25 18:03 Dose: 2 each Olanzapine (Olanzapine 10 Mg Vial) 10 mg IM DAILY PRN PRN Reason: if refuse Invega PO Paliperidone (Paliperidone Er 6 Mg Tab.Er.24) 12 mg PO DAILY@2300 [facility] Last Admin: 06/22/25 00:12 Dose: 12 mg Quetiapine Fumarate (Quetiapine Fumarate 100 Mg Tablet) 100 mg PO BEDTIME PRN PRN Reason: insomnia Quetiapine Fumarate (Quetiapine Fumarate 50 Mg Tablet) 50 mg PO BID PRN PRN Reason: agitation Allergies Allergies Allergy/AdvReac Type Severity Reaction Status Date / Time No Known Allergies Allergy Verified 03/26/25 14:24 Assessment & Plan Assessment & Plan (1) Graves disease: Status: Acute Code(s): E05.00 - Thyrotoxicosis with diffuse goiter without thyrotoxic crisis or storm Assessment and Plan: Hyperthyroidism/Graves disease. He will need follow up with endocrinology as an outpatient He will also need a primary care doctor referral as an outpatient Discussed with Dr. Bejarano, patient will need free T4 weekly Decrease Methimazole to 15 mgs daily for three days and then 10 mgs daily- discussed with patient he is aware of plan and rationale. TSH and free T4 every 4 weeks. No need to draw thyroid stimulation immunology or TSH receptor AB (2) Dental abscess: Status: Acute Code(s): K04.7 - Periapical abscess without sinus Assessment and Plan: Carious tooth/dental infection Recently treated with PEN VK 500 mg q.6 hours for 7 days Patient will need follow up with dentist on discharge for tooth extraction Motrin helping pain. (3) Becca: Status: Acute Code(s): F30.9 - Manic episode, unspecified Plan 03/26: offer lithium and seroquel for becca. continue methimazole and beta joanne for hyperthyroidism as started at [facility]. trend TFTs. 12b. 03/27: taking methimazole and beta joanne. refused HS meds last night, took morning meds today. continue to encourage medication compliance. 03/28: intermittently taking meds. wants all meds in morning. pressured, manic, paranoid delusions. encouraged to take lithium but states he will not. all meds ordered for morning. 03/29: Keeping to self. no groups. observed laying in bed listening to music on unit headphones. pleasant. Pt reports feeling good today and sleeping well. declined lithium and zyprexa. denies SI/HI/VH/AH. continue current tx plan. 03/30:Irritable. upset he was unable to use his personal hygiene products. Per nursing, pt threatened staff and squeezed tooth paste throughout unit hallway to show his frustration. Pt was able to calm down after speaking with security. declined medications. 03/31: Keeping to self. laying in bed listening to music. refused medications. calm today. Patient reports feeling great ; pt stated, nothing is wrong with me. I'm waiting so I can leave tomorrow. I'm hoping for the best . denies SI/HI/VH/AH. per nursing, slept 6 hours. Continue current tx plan. 04/01: variably calm on the unit versus highly agitated. paranoid delusions, irritability, lability continue. seems to believe MD has met him prior to the present hospitalization and is stalking him. believes brother behind conspiracy to have him psychiatrically hospitalized. has been refusing all medications, including for hyperthyroidism. informed he would be filed on. filed. continue to offer medications. 04/02: continues agitated, belittling, verbally aggressive, refusing all medications including for hyperthyroidism. continue to offer medication. 04/03: paranoid there is a conspiracy to hospitalize him. threatening to stick a stick in staff once he is released by general agent. insists his hyperthyroidism was cured at [facility]. asserts there is NOTHING wrong with him. continue to offer medication. 04/04: irritable, rejecting. verbally abuses MD and sends him away: see you on monday [in court]. continue to offer medication for thyroid condition and mental illness. 04/05 continue tx. suspicious and guarded, accusatory, verbal threats to hurt staff and peers 04/06 intrusive, posturing towards staff and peer who he thinks is not real and is an impostor, continues to make verbal threats to harm him but thinks that because he is not real he may not experience any pain. 04/07: threatening statements and behaviors of yesterday noted. pt sleeping this morning, dismissive of MD. 04/08: asleep days. committed and meds ordered by court. 04/09: on being informed of court order and MD insisting on meds, pt escalated to hurling food item in container against wall at high speed and saying he wished he could do the same to MD's head. pt eventually took court ordered meds PO. sensodyne and excedrin not available in pharmacy (pt requesting them). 04/10: continue tx. Pt accepting medication today. 04/11: Keeping to self. Lying in bed most of morning. Declined to meet with T/W. Pt stated, I'm fine. I don't need anything . Listening to headphones in room. Declined court ordered PO medications; received IM medications. Refused vital signs.continue tx plan. 04/12: got IMs yesterday, took PO this morning. sleepy, no concerns or complaints. 04/13: taking PO meds again. slept 7 hours. sleepy again mid morning refusing interview. continue current mgmt. 04/14: sleeping, rousable. denies being sedated or tired, says he's just bored. no questions or complaints. informed of need to check labs. check lithium level and thyroid labs tonight. 04/15: refusing labs. delusional re his brother harming him. verbally abusive toward MD. spat in floor. happy with improvement in proptosis. 04/16: Lying in bed. Calm. cooperative. guarded. Pt reports feeling tired this morning d/t poor sleep last night. Pt stated, I don't need anything. I didn't sleep well so I'm trying to catch up . denies any issues at this time. denies SI/HI/VH/AH. Continue current tx plan. 04/17: more calm today, less explosive. continue current mgmt. 04/18: continues more calm. tolerating moments of frustration without verbally attacking MD. slept only 2 hours overnight, however. continue current mgmt. 04/19 continues to push boundaries and limits with staff mike around cell phone- 04/20 - aggressive with staff and unpredictable- threw water pitcher at staff behind desk/-when seen by provider passive in bed-denying all compaints/sys- no insight 04/21: appears as per last week. more difficult behaviors around cell phone use, did throw pitcher of water at RN monday over phone use and was restrained. continue current mgmt. 04/22: continues to have conflict around cell phone use. consolidate zyprexa at HS to decrease daytime sedation. 1:1 allegra shift until peer he is accusing of not being a real patient and appears to be targeting discharges tomorrow. 04/23: lithium 0.6 on 600 BID. sleeping better, remains delusional (telling SW who is marginally younger than him that she could be his daughter). just changed zyprexa dosing as of last night. continue current regimen and observe for continued stabilization. T/C slight increase in lithium dosing. 04/24: Laying in bed. guarded. calm. did not want to get out of bed to meet with T/W. Pt reports feeling great today but declined to go into detail. listening to music on unit headphones. Pt stated, I'm fine. I don't need anything . denies any issues at this time. denies SI/HI/VH/AH. Continue current tx plan. 04/25: Laying in bed. keeping to self. calm. paranoid. Discussed incident that occurred with staff last evening. Pt stated, the counselor made up a lie yesterday. I said she looks like my ex-girlfriend. I know they are related. They want to make up a lie to irritate me. They are trying to talk to me so they can use recording devices and make me look some kind of way . listening to music on unit headphones. denies SI/HI/VH/AH. Continue current tx plan. 04/26: Continue current regimen and plans. Increase Zyprexa 20 mg q.h.s. fresh air break withheld 04/27: Continue current regimen and plans 04/28: somewhat less irritable and agitated than last week. however, over the weekend was claiming he was the father of a footballer on TV and also that a staff member is a twin of his ex-GF (and he pushed staff member). TFTs improving. continue current mgmt. 04/29: no change in presentation. continue current mgmt. 04/30: no irritable edge today. calm, pleasant. engaging in small talk. reality testing not pressed. continue current mgmt for now. 05/01: no change in presentation. continue current mgmt. 05/02: BPs coming down, DC beta joanne as pt has been refusing anyway. remains not antagonistic toward MD. using phone appropriately. continue current mgmt otherwise. 05/03 continue 05/04: remains delusional, irritable/labile when delusional system confronted. declines to sign TOMMY for [facility] records. continue current mgmt. 05/06: declining to meet with MD, but does meet with medical student. remains upset about yesterday's confrontation re his delusional system. 05/07: Active on unit. keeping to self. pacing unit hallway while listening to unit headphones. medication compliant. patient reports feeling good ; pt stated, I'm just waiting to leave here. I want to return to my life and do things like go grocery shopping . denies SI/HI/VH/AH. Continue current tx plan. 05/08: stable presentation, delusions not being brought to the surface daily. remains affectively improved from admission. continue current mgmt. 05/09: calm, pleasant. no questions or complaints. continue current mgmt. 05/10: no change in presentation. due to lack of improvement in dental infection Sx, DC PCN and start augmentin. 05/11: no change in presentation. continue current mgmt. 05/12: as for yesterday. dental pain improving a bit. 05/13: expressed to medical student that his brother poisoned him, causing his thyroid disease. no change in presentation. continue current mgmt. 05/14: Pacing unit hallway. keeping to self. patient reports feeling good today; denies any issues at this time. denies SI/HI/VH/AH. per nursing, slept 5 hours. Continue current tx plan. 05/15: slept 6 hours. otherwise isolative, difficult to engage. continue current mgmt. 05/16: slept 7 hours. as for yesterday otherwise. 05/17/25: Slept well, no issue with appetite, skinny and pretty tall. Compliant with medication. No side effects Calm and pleasant upon approach. Some what paranoid. Tangential, however denies other safety concerns. Questions if he is discharging soon. He is on antibiotic for 7 days for mouth pain/tooth pain. We will finish the 7 course up in antibiotic after tonight dose. Then discontinue. 05/18/25: Slept for 5 hours plus hours this morning. In bed most of the shift, no behavior issues. Denies other safety concerns. 05/19: in bed days, up eves. no change in presentation. continue current mgmt. 05/20: no change in presentation. check labs. 05/21: lithium low, TFTs mixed and not all back. increase lithium from 600 BID to 600/900. trend BUN/Cr, with slight elevation. otherwise continue current mgmt. 05/22: no change in presentation. continue current mgmt. 05/23: does not deny someone stole his sperm and impregnated his landlord's child with it. irritable. c/o dental pain, antibx restarted. otherwise continue current mgmt. 05/14: no change in mgt 05/25: more isolative today; no change in mgt 05/26: decreases in methimazole noted. continue psych regimen as is. pt refused to interact with MD today. 05/27: i'm sleeping. no change in presentation. labs tonight. 05/28: no change in behavior. lithium 0.66, BUN stable. continue current mgmt. 05/29: irritable. continue current mgmt. 05/30: no longer in single room. still not engaging, sleeping days. continue current mgmt. 05/31:laying in bed. declined to meet with T/W. pt stated, I want to sleep. I didn't sleep enough . Pt encouraged to reach out to staff if he needs anything. Continue current tx plan. 06/01: Similar to yesterday. laying in bed. Irritable. declined to meet with T/W and pulled bed sheets over head. pt stated, I don't want to talk. I want to sleep . difficult to engage. Continue current tx plan. 06/02: Similar to yesterday. laying in bed. Irritable. declined to meet with T/W. Observed getting drink from kitchen; T/W approached pt and asked if they could speak. patient declined to acknowledge T/W and walked past. Continue current tx plan. 06/03: no change in behavior. continue tx plan. 06/04/25: Passive engaged in the assessment, in bed mostly sleeping this morning which could be interfere with his nighttime. Cover body under the blanket Slept for 4-5 hours last night. Was medication compliant, attended no groups, isolative to self in room. No SI/SIB/HI/AVH expressed. 06/05: continue tx plan. 06/06: reports feeling fine ; continues guarded. difficult to engage. declining to meet with T/W. continue tx plan. 06/07/25: Slept for 4 hours at night, but has been sleeping most of the day yesterday as well. Spent majority of the shift in bed, was medication compliant. Passive engaged in the conversation. He said he will try to change the sleeping pattern so that he can be awake more during the daytime. Appear to be sedated in the morning. No safety behavior. 06/08/25: Slept for 3-4 hours last night, compliant with medications. Denies side effects, denies other safety concerns. Continued to encourage patient to up and down more than on the unit he spent most of the day sleeping. He is pleasant upon approach. No other behavior issues. Denied voices/hallucinations. Suicide thoughts or homicidal thoughts. 06/09: sleeping, minimally rousable. denies problems. continue current mgmt. 06/10: sleeping all day, up most of the night. minimally rousable. denies problems. continue current mgmt. per JAMAICA Arrington: Jean said when he leaves he can return to [facility]. he was living with a lady there and can go back. He plans to get a job to pay off his debt. He said he owes money because they sent him back here due to losing his passport and he owes them money for the temporary emergency passport and the flight back to the [place]. so his main focus is to get a job. he said he will try things here first and if it doesn't work out he plans to return to [place]. 06/11/25: Passively engaged in conversation while in bed sleeping/resting. Able to answer question appropriately, but seems to be minimized. Denies SI/SIB/HI/AVH. He slept 5 hours last night, spent most of the day in bed sleeping. Attempted to no groups, observed out to the afternoon in the subramanian near the nurse station. No change in presentation. Encourage groups,up and engaged in groups. 06/12: not engaging. no complaints or questions re med changes. cross-taper zyprexa in favor of invega, give MONTERO invega. tonight, decrease zyprexa to 15 mg and start invega 3 mg. otherwise continue current mgmt. 06/13: continues avoidant and disengaged. denies side effects from med change last night. informed cross-titration will advance tonight. decrease zyprexa to 10 mg tonight, increase paliperidone to 6 mg. plan to continue by 5 mg zyprexa and 3 mg paliperidone increments every several days as tolerated until zyprexa DCed and paliperidone at 12 mg QHS. once it is established pt is tolerating PO Paliperidone, invega sustenna to be administered. 06/14: Continue current regimen and plans 06/15: Continue current plans and regimen 06/16: irritable re neuroleptic change. denies side effects or problems with it, however. minimally engageable. increase invega to 9 QHS and decrfease zyprexa to 5 QHS. 06/17/25: Continued to be irritable regarding medication change/titration. However engaged in conversation, hyper verbal, paranoid, reports medication slow his thoughts down and he does not not like it. Poor insight and poor judgment. He thinks he only need lithium, not other medications. Remind patient to continue doing the sleep pattern changing. However his in bed mostly this morning. Slept for 4-5 hours last night. 06/18/25: Slept for 5 hours last night as he continues sleeping during daytime. Compliant with meds, did not c/o side effects.Passingly engaging in assessment. Denies safety concerns. Tolerate the tritation well. Will increase Inveag up to max of 12 tomorrow and Discontinue Olanzepine at HS. Continue to encourage up and out on day so he can sleep better at HS. 06/19/25: Patient slept for 5.5 hours last night, was medication compliant, mostly in his room yesterday but seen more often in the evening. Patient is awake in his room, listen to music, his morning tray was taken away and clean the area. He is very pleasant to talk to today, reports he feels good, denies side effects from medications, denies any safety concerns. Denies feeling sedation, denies anxiety/depression. He is receptive with the plan of medication over the weekends and next week, happy to hear about the medication plan. He also agree with the MONTERO Invega Sustenna on Monday. Encourage him to go out and attended to groups, he said that he will. Reported that he was out for groups a couple of times last week. Discontinue Haldol p.r.n.. Discontinue scheduled Zyprexa 5 mg at bedtime. Only on Zyprexa at g IM daily p.r.n. as backup orders if refused Invega. Invega 12 mg at bedtime. Plan to monitor over the weekends and will give long- acting injection on Monday if tolerate with the p.o. well Reduce Seroquel 200 mg p.r.n. at bedtime to 100 p.r.n. at bedtime for insomnia. Seroquel 50 mg b.i.d. p.r.n. for agitation. Discontinue Motrin. Patient on lithium. Labs were for MondayJune 20: CMP, TSH with free T4. 06/20/25: In bed most of the day, was compliant with medication, however refused labs work. Re- scheduled for Monday. Continue with Invega 12 mg at bedtime. We will reassess and offer long-acting injection on Monday. Continue to encourage patient to get up and go to some groups. No safety concerns expressed. Minimal peer and staff interaction. 06/21: no change in presentation. start MONTERO monday. no s/e from invega. otherwise continue current mgmt. 06/22: stable. continue current mgmt. Reason for continued inpatient stay Substantial Risk for: inability to function Time Spent With Patient Time: Total time managing care of this patient today ____ minutes.
--- NOTE | 2025-06-23 14:10 | HO.PSYCHPN ---
Subjective Subjective Date of Service: 06/23/25 Reason For Visit: psychotic disorder Subjective Notes: Floyd Order and Section 8 Healthcare Proxy: No Guardianship: No Medical Problems Affecting Mental Status: No Interim History: Medical record and nursing notes reviewed; case discussed during rounds with team/nursing staff, and met with patient for supportive therapy/psychoeducation, as well as medication management. Patient slept for 5 hours last night as usual, he is awake and engaged in fully conversation with this provider in later when the director of social work joined the conversation. He is receptive to the plan of MONTERO, with the stopped a p.o. Invega. Usually if he does not work he will shower every orders to 3 days. Encourage patient to eat- not in his room, shower daily, visible, attempted to groups so we knows how he can taking care of himself at home at discharge. He said he will try what groups today, then eventually will go to more groups after. Denies safety concerns, very pleasant upon approach. I review with patient regarding phone use and headphone use at night and over the weekends. Patient is receptive to the plan, no irritability. Medication Compliance: Yes Side effects from medications: No Attending Groups: No (He plans to try one group today.) Review of Systems Acute medical concerns: No Medical Review of Systems: unchanged Review of Systems Review of Systems Constitutional: Denies fatigue and Denies fever(s) Cardiovascular: Denies chest pain and Denies dyspnea Respiratory: Denies dyspnea Gastrointestinal: Denies abdominal pain Psychiatric: denies suicidal ideation Endocrine: Denies fatigue Yes all other systems are reviewed and are negative Mental Status Exam Mental Status Exam Narrative: He is in bed cover self with a blanket from the shoulder, was in bed but awake, more awake, actively engaged in full conversation., denies SI/SIB/HI/AVH,, poor insight and judgment, happy with the medication change included long-acting injection. Denies safety concerns. No SI//SIB/HI/AVH expressed. Diagnostics Vital Signs (24Hr): BMI result Body Mass Index 24.0 Labs 03/27/25 09:44 06/20/25 20:35 Medications Medications Current Medications Acetaminophen (Acetaminophen 325 Mg Tablet) 650 mg PO Q6H PRN PRN Reason: Headache/Pain, Scale 1-10 Last Admin: 04/01/25 23:20 Dose: 650 mg Al Hydroxide/Mg Hydroxide (Magnesium Hydrox/Alum Hydrox 30 Ml Oral.Susp) 30 ml PO Q6H PRN PRN Reason: Heartburn/Nausea Benzocaine (Benzocaine 20 % Oral Gel 14 Gm Tube) 1 appl MUCOUS MEM QID PRN; Protocol PRN Reason: Mouth Sore Pain Last Admin: 04/26/25 18:33 Dose: 1 appl Diazepam (Diazepam 10 Mg/2 Ml Cartridge) 10 mg IM BID PRN PRN Reason: refusal of lithium, mary floyd Last Admin: 04/11/25 09:56 Dose: 10 mg Hydroxyzine HCl (Hydroxyzine Hcl 25 Mg Tablet) 25 mg PO Q6H PRN PRN Reason: mild anxiety [place] Carbonate ([place] Carbonate Er 300 Mg Tablet.Er) 600 mg PO DAILY COUNT INCLUDES THE [facility] Last Admin: 06/23/25 08:35 Dose: 600 mg [place] Carbonate ([place] Carbonate Er 450 Mg Tablet.Er) 900 mg PO DAILY@2300 COUNT INCLUDES THE [facility] Last Admin: 06/23/25 00:05 Dose: 900 mg Magnesium Hydroxide (Milk Of Magnesia 30 Ml Oral.Susp) 30 ml PO DAILY PRN PRN Reason: Constipation Methimazole (Methimazole 10 Mg Tablet) 10 mg PO DAILY COUNT INCLUDES THE [facility] Last Admin: 06/23/25 08:35 Dose: 10 mg Nicotine (Nicotine 21 Mg Patch.Td24) 21 mg TRANSDERMA DAILY PRN PRN Reason: nicotine cravings Last Admin: 04/12/25 17:06 Dose: 21 mg Nicotine Polacrilex (Nicotine Polacrilex Lozenge 2 Mg Lozenge) 2 mg BUCCAL Q1H PRN PRN Reason: Nicotine Cravings Last Admin: 04/30/25 08:49 Dose: 2 mg Patient Own Medication Excedrin 250/250/65mg 2 each PO Q8H PRN PRN Reason: Migraine Headache Last Admin: 04/18/25 18:03 Dose: 2 each Olanzapine (Olanzapine 10 Mg Vial) 10 mg IM DAILY PRN PRN Reason: if refuse Invega PO Paliperidone Palmitate (Paliperidone Palmitate 234 Mg/1.5 Ml Syringe) 234 mg IM ONCE ONE Stop: 06/23/25 14:09 Quetiapine Fumarate (Quetiapine Fumarate 100 Mg Tablet) 100 mg PO BEDTIME PRN PRN Reason: insomnia Quetiapine Fumarate (Quetiapine Fumarate 50 Mg Tablet) 50 mg PO BID PRN PRN Reason: agitation Allergies Allergies Allergy/AdvReac Type Severity Reaction Status Date / Time No Known Allergies Allergy Verified 03/26/25 14:24 Assessment & Plan Assessment & Plan (1) Graves disease: Status: Acute Code(s): E05.00 - Thyrotoxicosis with diffuse goiter without thyrotoxic crisis or storm Assessment and Plan: Hyperthyroidism/Graves disease. He will need follow up with endocrinology as an outpatient He will also need a primary care doctor referral as an outpatient Discussed with Dr. Bejarano, patient will need free T4 weekly Decrease Methimazole to 15 mgs daily for three days and then 10 mgs daily- discussed with patient he is aware of plan and rationale. TSH and free T4 every 4 weeks. No need to draw thyroid stimulation immunology or TSH receptor AB (2) Dental abscess: Status: Acute Code(s): K04.7 - Periapical abscess without sinus Assessment and Plan: Carious tooth/dental infection Recently treated with PEN VK 500 mg q.6 hours for 7 days Patient will need follow up with dentist on discharge for tooth extraction Motrin helping pain. (3) Becca: Status: Acute Code(s): F30.9 - Manic episode, unspecified Plan 03/26: offer lithium and seroquel for becca. continue methimazole and beta joanne for [place] [facility] [place] trend TFTs. 12b. 03/27: taking methimazole and beta joanne. refused HS meds last night, took morning meds today. continue to encourage medication compliance. 03/28: intermittently taking meds. wants all meds in morning. pressured, manic, paranoid delusions. encouraged to take lithium but states he will not. all meds ordered for morning. 03/29: Keeping to self. no groups. observed laying in bed listening to music on unit headphones. pleasant. Pt reports feeling good today and sleeping well. declined lithium and zyprexa. denies SI/HI/VH/AH. continue current tx plan. 03/30:Irritable. upset he was unable to use his personal hygiene products. Per nursing, pt threatened staff and squeezed tooth paste throughout unit hallway to show his frustration. Pt was able to calm down after speaking with security. declined medications. 03/31: Keeping to self. laying in bed listening to music. refused medications. calm today. Patient reports feeling great ; pt stated, nothing is wrong with me. I'm waiting so I can leave tomorrow. I'm hoping for the best . denies SI/HI/VH/AH. per nursing, slept 6 hours. Continue current tx plan. 04/01: variably calm on the unit versus highly agitated. paranoid delusions, irritability, lability continue. seems to believe MD has met him prior to the present hospitalization and is stalking him. believes brother behind conspiracy to have him psychiatrically hospitalized. has been refusing all medications, including for hyperthyroidism. informed he would be filed on. filed. continue to offer medications. 04/02: continues agitated, belittling, verbally aggressive, refusing all medications including for hyperthyroidism. continue to offer medication. 04/03: paranoid there is a conspiracy to hospitalize him. threatening to stick a stick in staff once he is released by portrait studio photographer. insists his [facility]. asserts there is NOTHING wrong with him. continue to offer medication. 04/04: irritable, rejecting. verbally abuses MD and sends him away: see you on monday [in court]. continue to offer medication for thyroid condition and mental illness. 04/05 continue tx. suspicious and guarded, accusatory, verbal threats to hurt staff and peers 04/06 intrusive, posturing towards staff and peer who he thinks is not real and is an impostor, continues to make verbal threats to harm him but thinks that because he is not real he may not experience any pain. 04/07: threatening statements and behaviors of yesterday noted. pt sleeping this morning, dismissive of MD. 04/08: asleep days. committed and meds ordered by court. 04/09: on being informed of court order and MD insisting on meds, pt escalated to hurling food item in container against wall at high speed and saying he wished he could do the same to MD's head. pt eventually took court ordered meds PO. sensodyne and excedrin not available in pharmacy (pt requesting them). 04/10: continue tx. Pt accepting medication today. 04/11: Keeping to self. Lying in bed most of morning. Declined to meet with T/W. Pt stated, I'm fine. I don't need anything . Listening to headphones in room. Declined court ordered PO medications; received IM medications. Refused vital signs.continue tx plan. 04/12: got IMs yesterday, took PO this morning. sleepy, no concerns or complaints. 04/13: taking PO meds again. slept 7 hours. sleepy again mid morning refusing interview. continue current mgmt. 04/14: sleeping, rousable. denies being sedated or tired, says he's just bored. no questions or complaints. informed of need to check labs. check lithium level and thyroid labs tonight. 04/15: refusing labs. delusional re his brother harming him. verbally abusive toward MD. spat in floor. happy with improvement in proptosis. 04/16: Lying in bed. Calm. cooperative. guarded. Pt reports feeling tired this morning d/t poor sleep last night. Pt stated, I don't need anything. I didn't sleep well so I'm trying to catch up . denies any issues at this time. denies SI/HI/VH/AH. Continue current tx plan. 04/17: more calm today, less explosive. continue current mgmt. 04/18: continues more calm. tolerating moments of frustration without verbally attacking MD. slept only 2 hours overnight, however. continue current mgmt. 04/19 continues to push boundaries and limits with staff mike around cell phone- 04/20 - aggressive with staff and unpredictable- threw water pitcher at staff behind desk/-when seen by provider passive in bed-denying all compaints/sys- no insight 04/21: appears as per last week. more difficult behaviors around cell phone use, did throw pitcher of water at RN monday over phone use and was restrained. continue current mgmt. 04/22: continues to have conflict around cell phone use. consolidate zyprexa at HS to decrease daytime sedation. 1:1 allegra shift until peer he is accusing of not being a real patient and appears to be targeting discharges tomorrow. 04/23: lithium 0.6 on 600 BID. sleeping better, remains delusional (telling SW who is marginally younger than him that she could be his daughter). just changed zyprexa dosing as of last night. continue current regimen and observe for continued stabilization. T/C slight increase in lithium dosing. 04/24: Laying in bed. guarded. calm. did not want to get out of bed to meet with T/W. Pt reports feeling great today but declined to go into detail. listening to music on unit headphones. Pt stated, I'm fine. I don't need anything . denies any issues at this time. denies SI/HI/VH/AH. Continue current tx plan. 04/25: Laying in bed. keeping to self. calm. paranoid. Discussed incident that occurred with staff last evening. Pt stated, the counselor made up a lie yesterday. I said she looks like my ex-girlfriend. I know they are related. They want to make up a lie to irritate me. They are trying to talk to me so they can use recording devices and make me look some kind of way . listening to music on unit headphones. denies SI/HI/VH/AH. Continue current tx plan. 04/26: Continue current regimen and plans. Increase Zyprexa 20 mg q.h.s. fresh air break withheld 04/27: Continue current regimen and plans 04/28: somewhat less irritable and agitated than last week. however, over the weekend was claiming he was the father of a footballer on TV and also that a staff member is a twin of his ex-GF (and he pushed staff member). TFTs improving. continue current mgmt. 04/29: no change in presentation. continue current mgmt. 04/30: no irritable edge today. calm, pleasant. engaging in small talk. reality testing not pressed. continue current mgmt for now. 05/01: no change in presentation. continue current mgmt. 05/02: BPs coming down, DC beta joanne as pt has been refusing anyway. remains not antagonistic toward MD. using phone appropriately. continue current mgmt otherwise. 05/03 continue 05/04: remains delusional, irritable/labile when delusional system confronted. declines to sign [facility]. continue current mgmt. 05/06: declining to meet with MD, but does meet with medical student. remains upset about yesterday's confrontation re his delusional system. 05/07: Active on unit. keeping to self. pacing unit hallway while listening to unit headphones. medication compliant. patient reports feeling good ; pt stated, I'm just waiting to leave here. I want to return to my life and do things like go grocery shopping . denies SI/HI/VH/AH. Continue current tx plan. 05/08: stable presentation, delusions not being brought to the surface daily. remains affectively improved from admission. continue current mgmt. 05/09: calm, pleasant. no questions or complaints. continue current mgmt. 05/10: no change in presentation. due to lack of improvement in dental infection Sx, DC PCN and start augmentin. 05/11: no change in presentation. continue current mgmt. 05/12: as for yesterday. dental pain improving a bit. 05/13: expressed to medical student that his brother poisoned him, causing his thyroid disease. no change in presentation. continue current mgmt. 05/14: Pacing unit hallway. keeping to self. patient reports feeling good today; denies any issues at this time. denies SI/HI/VH/AH. per nursing, slept 5 hours. Continue current tx plan. 05/15: slept 6 hours. otherwise isolative, difficult to engage. continue current mgmt. 05/16: slept 7 hours. as for yesterday otherwise. 05/17/25: Slept well, no issue with appetite, skinny and pretty tall. Compliant with medication. No side effects Calm and pleasant upon approach. Some what paranoid. Tangential, however denies other safety concerns. Questions if he is discharging soon. He is on antibiotic for 7 days for mouth pain/tooth pain. We will finish the 7 course up in antibiotic after tonight dose. Then discontinue. 05/18/25: Slept for 5 hours plus hours this morning. In bed most of the shift, no behavior issues. Denies other safety concerns. 05/19: in bed days, up eves. no change in presentation. continue current mgmt. 05/20: no change in presentation. check labs. 05/21: lithium low, TFTs mixed and not all back. increase lithium from 600 BID to 600/900. trend BUN/Cr, with slight elevation. otherwise continue current mgmt. 05/22: no change in presentation. continue current mgmt. 05/23: does not deny someone stole his sperm and impregnated his landlord's child with it. irritable. c/o dental pain, antibx restarted. otherwise continue current mgmt. 05/14: no change in mgt 05/25: more isolative today; no change in mgt 05/26: decreases in methimazole noted. continue psych regimen as is. pt refused to interact with MD today. 05/27: i'm sleeping. no change in presentation. labs tonight. 05/28: no change in behavior. lithium 0.66, BUN stable. continue current mgmt. 05/29: irritable. continue current mgmt. 05/30: no longer in single room. still not engaging, sleeping days. continue current mgmt. 05/31:laying in bed. declined to meet with T/W. pt stated, I want to sleep. I didn't sleep enough . Pt encouraged to reach out to staff if he needs anything. Continue current tx plan. 06/01: Similar to yesterday. laying in bed. Irritable. declined to meet with T/W and pulled bed sheets over head. pt stated, I don't want to talk. I want to sleep . difficult to engage. Continue current tx plan. 06/02: Similar to yesterday. laying in bed. Irritable. declined to meet with T/W. Observed getting drink from kitchen; T/W approached pt and asked if they could speak. patient declined to acknowledge T/W and walked past. Continue current tx plan. 06/03: no change in behavior. continue tx plan. 06/04/25: Passive engaged in the assessment, in bed mostly sleeping this morning which could be interfere with his nighttime. Cover body under the blanket Slept for 4-5 hours last night. Was medication compliant, attended no groups, isolative to self in room. No SI/SIB/HI/AVH expressed. 06/05: continue tx plan. 06/06: reports feeling fine ; continues guarded. difficult to engage. declining to meet with T/W. continue tx plan. 06/07/25: Slept for 4 hours at night, but has been sleeping most of the day yesterday as well. Spent majority of the shift in bed, was medication compliant. Passive engaged in the conversation. He said he will try to change the sleeping pattern so that he can be awake more during the daytime. Appear to be sedated in the morning. No safety behavior. 06/08/25: Slept for 3-4 hours last night, compliant with medications. Denies side effects, denies other safety concerns. Continued to encourage patient to up and down more than on the unit he spent most of the day sleeping. He is pleasant upon approach. No other behavior issues. Denied voices/hallucinations. Suicide thoughts or homicidal thoughts. 06/09: sleeping, minimally rousable. denies problems. continue current mgmt. 06/10: sleeping all day, up most of the night. minimally rousable. denies problems. continue current mgmt. per JAMAICA Arrington: Jean said when he leaves he can return to [facility]. he was living with a lady there and can go back. He plans to get a job to pay off his debt. He said he owes money because they sent him back here due to losing his passport and he owes them money for the temporary emergency passport and the flight back to the . so his main focus is to get a job. he said he will try things here first and if it doesn't work out he plans to return to [place]. 06/11/25: Passively engaged in conversation while in bed sleeping/resting. Able to answer question appropriately, but seems to be minimized. Denies SI/SIB/HI/AVH. He slept 5 hours last night, spent most of the day in bed sleeping. Attempted to no groups, observed out to the afternoon in the subramanian near the nurse station. No change in presentation. Encourage groups,up and engaged in groups. 06/12: not engaging. no complaints or questions re med changes. cross-taper zyprexa in favor of invega, give MONTERO invega. tonight, decrease zyprexa to 15 mg and start invega 3 mg. otherwise continue current mgmt. 06/13: continues avoidant and disengaged. denies side effects from med change last night. informed cross-titration will advance tonight. decrease zyprexa to 10 mg tonight, increase paliperidone to 6 mg. plan to continue by 5 mg zyprexa and 3 mg paliperidone increments every several days as tolerated until zyprexa DCed and paliperidone at 12 mg QHS. once it is established pt is tolerating PO Paliperidone, invega sustenna to be administered. 06/14: Continue current regimen and plans 06/15: Continue current plans and regimen 06/16: irritable re neuroleptic change. denies side effects or problems with it, however. minimally engageable. increase invega to 9 QHS and decrfease zyprexa to 5 QHS. 06/17/25: Continued to be irritable regarding medication change/titration. However engaged in conversation, hyper verbal, paranoid, reports medication slow his thoughts down and he does not not like it. Poor insight and poor judgment. He thinks he only need lithium, not other medications. Remind patient to continue doing the sleep pattern changing. However his in bed mostly this morning. Slept for 4-5 hours last night. 06/18/25: Slept for 5 hours last night as he continues sleeping during daytime. Compliant with meds, did not c/o side effects.Passingly engaging in assessment. Denies safety concerns. Tolerate the tritation well. Will increase Inveag up to max of 12 tomorrow and Discontinue Olanzepine at HS. Continue to encourage up and out on day so he can sleep better at HS. 06/19/25: Patient slept for 5.5 hours last night, was medication compliant, mostly in his room yesterday but seen more often in the evening. Patient is awake in his room, listen to music, his morning tray was taken away and clean the area. He is very pleasant to talk to today, reports he feels good, denies side effects from medications, denies any safety concerns. Denies feeling sedation, denies anxiety/depression. He is receptive with the plan of medication over the weekends and next week, happy to hear about the medication plan. He also agree with the MONTERO Invega Sustenna on Monday. Encourage him to go out and attended to groups, he said that he will. Reported that he was out for groups a couple of times last week. Discontinue Haldol p.r.n.. Discontinue scheduled Zyprexa 5 mg at bedtime. Only on 10 Zyprexa at g IM daily p.r.n. as backup orders if refused Invega. Invega 12 mg at bedtime. Plan to monitor over the weekends and will give long-acting injection on Monday if tolerate with the p.o. well Reduce Seroquel 200 mg p.r.n. at bedtime to 100 p.r.n. at bedtime for insomnia. Seroquel 50 mg b.i.d. p.r.n. for agitation. Discontinue Motrin. Patient on lithium. Labs were for MondayJune 20: CMP, TSH with free T4. 06/20/25: In bed most of the day, was compliant with medication, however refused labs work. Re- scheduled for Monday. Continue with Invega 12 mg at bedtime. We will reassess and offer long-acting injection on Monday. Continue to encourage patient to get up and go to some groups. No safety concerns expressed. Minimal peer and staff interaction. 06/21: no change in presentation. start MONTERO monday. no s/e from invega. otherwise continue current mgmt. 06/22: stable. continue current mgmt. 06/23/25: More awake and alert. Review with patient regarding policy for his phone use BID 30min each time, patient is educated on compliant with policy. He asks for more 5-10 min extra headphone use at night on the weekends after 2300. Once again, redirected for unit rules. He agrees with MONTERO which is scheduled today. Discontinue Invega PO Invega Sustenna 234mg IM once. Will monitor for possible side effects and sedation. Will offer 156mg after 1 week. If mentaly stable with 156mg, will maintain at this dose, if not will offer 234mg Monthly. Patient educated on: diagnosis, medication risk/benefits and therapeutic strategies Reason for continued inpatient stay Substantial Risk for: med/psych decompensation Time Spent With Patient Time: Total time managing care of this patient today ____ minutes.
[2025-06-23 20:30] VITALS: BP 120/61; PULSE 83; RESP 14; TEMP 36.9; O2SAT 99
--- NOTE | 2025-06-23 20:38 | P.EN_ITS ---
Event Note Date of Service: 06/23/25 Event Note: Pt seen on the floor for concern regarding ongoing tooth abscess, right side. Pt reports 25% pain in affected tooth and is asking for motrin. Pt states benzocaine gel is ok but thinks the motrin will help. Pt denies any nausea, fever or chills. Pt is not having specific sensitivty to cold or hot items. Pt examined and there is no swelling in the oral cacity, along the gum line and no facial or periorbital swelling. Pt agreeable to CBC in AM to check for leukjoc ytosis. No indication for ABX at this time. Goal for pt is to seek dental care in the community for formal exam and plan. Time Spent With Patient Time: Total time managing care of this patient today ____ minutes.
[2025-06-24 07:30] VITALS: BP 113/54; PULSE 76; RESP 16; TEMP 36.9; O2SAT 97
--- NOTE | 2025-06-24 11:39 | HO.PSYCHPN ---
Subjective Subjective Date of Service: 06/24/25 Reason For Visit: psychotic disorder Subjective Notes: Floyd Order and Section 8 Healthcare Proxy: No Guardianship: No Medical Problems Affecting Mental Status: No Interim History: Medical record and nursing notes reviewed; case discussed during rounds with team/nursing staff, and met with patient for supportive therapy/psychoeducation, as well as medication management. Slept for 5 hours last night, but also went to bed around 7 tonight p.m. last night per his report. He also attended to groups in the afternoon yesterday. Compliant with medications. No side effects from Invega Sustenna. He is engaged in full conversation today why he is in bed, denies safety concerns. Observe he is on the unit, social with peers and staff in longer period of time. Appeared to be happy. He plans to take shower today. Reported that he was up early but he does not feel hungry in the morning. He is making progress, not too sedated during daytime since switching his medication. Appears to do well so far with Invega Sustenna. Medication Compliance: Yes Side effects from medications: No Attending Groups: Intermittent Review of Systems Acute medical concerns: No Medical Review of Systems: unchanged Review of Systems Review of Systems Constitutional: Denies fatigue and Denies fever(s) Cardiovascular: Denies chest pain and Denies dyspnea Respiratory: Denies dyspnea Gastrointestinal: Denies abdominal pain Psychiatric: denies suicidal ideation Endocrine: Denies fatigue Yes all other systems are reviewed and are negative Mental Status Exam Mental Status Exam Narrative: He is in bed cover self with a blanket from the shoulder, was in bed but awake,, actively engaged in full conversation., denies SI/SIB/HI/AVH, happy with the medication change included long-acting injection. Denies safety concerns. No SI//SIB/HI/AVH expressed.Visible, social, no irritable mood. Appear to be happy. Diagnostics Vital Signs (24Hr): Vital Signs - 24 hr 06/23/25 20:30 06/24/25 07:30 Temperature 98.4 F 98.5 F Pulse Rate 83 76 Respiratory Rate 14 16 Blood Pressure 120/61 113/54 L Pulse Oximetry 99 97 Oxygen Delivery Method Room Air Room Air BMI result Body Mass Index 24.0 Labs 03/27/25 09:44 06/20/25 20:35 Medications Medications Current Medications Acetaminophen (Acetaminophen 325 Mg Tablet) 650 mg PO Q6H PRN PRN Reason: Headache/Pain, Scale 1-10 Last Admin: 04/01/25 23:20 Dose: 650 mg Al Hydroxide/Mg Hydroxide (Magnesium Hydrox/Alum Hydrox 30 Ml Oral.Susp) 30 ml PO Q6H PRN PRN Reason: Heartburn/Nausea Benzocaine (Benzocaine 20 % Oral Gel 14 Gm Tube) 1 appl MUCOUS MEM QID PRN; Protocol PRN Reason: Mouth Sore Pain Last Admin: 04/26/25 18:33 Dose: 1 appl Diazepam (Diazepam 10 Mg/2 Ml Cartridge) 10 mg IM BID PRN PRN Reason: refusal of lithium, mary floyd Last Admin: 04/11/25 09:56 Dose: 10 mg Hydroxyzine HCl (Hydroxyzine Hcl 25 Mg Tablet) 25 mg PO Q6H PRN PRN Reason: mild anxiety Ibuprofen (Ibuprofen 400 Mg Tablet) 400 mg PO Q6H PRN PRN Reason: Pain, Moderate(Pain Scale 4-6) Last Admin: 06/24/25 00:08 Dose: 400 mg [place] Carbonate ([place] Carbonate Er 300 Mg Tablet.Er) 600 mg PO DAILY [facility] Last Admin: 06/24/25 08:41 Dose: 600 mg [place] Carbonate ([place] Carbonate Er 450 Mg Tablet.Er) 900 mg PO DAILY@2300 [facility] Last Admin: 06/24/25 00:08 Dose: 900 mg Magnesium Hydroxide (Milk Of Magnesia 30 Ml Oral.Susp) 30 ml PO DAILY PRN PRN Reason: Constipation Methimazole (Methimazole 10 Mg Tablet) 10 mg PO DAILY [facility] Last Admin: 06/24/25 08:41 Dose: 10 mg Nicotine (Nicotine 21 Mg Patch.Td24) 21 mg TRANSDERMA DAILY PRN PRN Reason: nicotine cravings Last Admin: 04/12/25 17:06 Dose: 21 mg Nicotine Polacrilex (Nicotine Polacrilex Lozenge 2 Mg Lozenge) 2 mg BUCCAL Q1H PRN PRN Reason: Nicotine Cravings Last Admin: 04/30/25 08:49 Dose: 2 mg Patient Own Medication Excedrin 250/250/65mg 2 each PO Q8H PRN PRN Reason: Migraine Headache Last Admin: 04/18/25 18:03 Dose: 2 each Olanzapine (Olanzapine 10 Mg Vial) 10 mg IM DAILY PRN PRN Reason: if refuse Invega PO Quetiapine Fumarate (Quetiapine Fumarate 100 Mg Tablet) 100 mg PO BEDTIME PRN PRN Reason: insomnia Quetiapine Fumarate (Quetiapine Fumarate 50 Mg Tablet) 50 mg PO BID PRN PRN Reason: agitation Allergies Allergies Allergy/AdvReac Type Severity Reaction Status Date / Time No Known Allergies Allergy Verified 03/26/25 14:24 Assessment & Plan Assessment & Plan (1) Graves disease: Status: Acute Code(s): E05.00 - Thyrotoxicosis with diffuse goiter without thyrotoxic crisis or storm Assessment and Plan: Hyperthyroidism/Graves disease. He will need follow up with endocrinology as an outpatient He will also need a primary care doctor referral as an outpatient Discussed with Dr. Bejarano, patient will need free T4 weekly Decrease Methimazole to 15 mgs daily for three days and then 10 mgs daily- discussed with patient he is aware of plan and rationale. TSH and free T4 every 4 weeks. No need to draw thyroid stimulation immunology or TSH receptor AB (2) Dental abscess: Status: Acute Code(s): K04.7 - Periapical abscess without sinus Assessment and Plan: Carious tooth/dental infection Recently treated with PEN VK 500 mg q.6 hours for 7 days Patient will need follow up with dentist on discharge for tooth extraction Motrin helping pain. (3) Becca: Status: Acute Code(s): F30.9 - Manic episode, unspecified Plan 03/26: offer lithium and seroquel for becca. continue methimazole and beta joanne for hyperthyroidism as started at [facility]. trend TFTs. 12b. 03/27: taking methimazole and beta joanne. refused HS meds last night, took morning meds today. continue to encourage medication compliance. 03/28: intermittently taking meds. wants all meds in morning. pressured, manic, paranoid delusions. encouraged to take lithium but states he will not. all meds ordered for morning. 03/29: Keeping to self. no groups. observed laying in bed listening to music on unit headphones. pleasant. Pt reports feeling good today and sleeping well. declined lithium and zyprexa. denies SI/HI/VH/AH. continue current tx plan. 03/30:Irritable. upset he was unable to use his personal hygiene products. Per nursing, pt threatened staff and squeezed tooth paste throughout unit hallway to show his frustration. Pt was able to calm down after speaking with security. declined medications. 03/31: Keeping to self. laying in bed listening to music. refused medications. calm today. Patient reports feeling great ; pt stated, nothing is wrong with me. I'm waiting so I can leave tomorrow. I'm hoping for the best . denies SI/HI/VH/AH. per nursing, slept 6 hours. Continue current tx plan. 04/01: variably calm on the unit versus highly agitated. paranoid delusions, irritability, lability continue. seems to believe MD has met him prior to the present hospitalization and is stalking him. believes brother behind conspiracy to have him psychiatrically hospitalized. has been refusing all medications, including for hyperthyroidism. informed he would be filed on. filed. continue to offer medications. 04/02: continues agitated, belittling, verbally aggressive, refusing all medications including for hyperthyroidism. continue to offer medication. 04/03: paranoid there is a conspiracy to hospitalize him. threatening to stick a stick in staff once he is released by residency coordinator. insists his hyperthyroidism was cured at [facility]. asserts there is NOTHING wrong with him. continue to offer medication. 04/04: irritable, rejecting. verbally abuses MD and sends him away: see you on monday [in court]. continue to offer medication for thyroid condition and mental illness. 04/05 continue tx. suspicious and guarded, accusatory, verbal threats to hurt staff and peers 04/06 intrusive, posturing towards staff and peer who he thinks is not real and is an impostor, continues to make verbal threats to harm him but thinks that because he is not real he may not experience any pain. 04/07: threatening statements and behaviors of yesterday noted. pt sleeping this morning, dismissive of MD. 04/08: asleep days. committed and meds ordered by court. 04/09: on being informed of court order and MD insisting on meds, pt escalated to hurling food item in container against wall at high speed and saying he wished he could do the same to MD's head. pt eventually took court ordered meds PO. sensodyne and excedrin not available in pharmacy (pt requesting them). 04/10: continue tx. Pt accepting medication today. 04/11: Keeping to self. Lying in bed most of morning. Declined to meet with T/W. Pt stated, I'm fine. I don't need anything . Listening to headphones in room. Declined court ordered PO medications; received IM medications. Refused vital signs.continue tx plan. 04/12: got IMs yesterday, took PO this morning. sleepy, no concerns or complaints. 04/13: taking PO meds again. slept 7 hours. sleepy again mid morning refusing interview. continue current mgmt. 04/14: sleeping, rousable. denies being sedated or tired, says he's just bored. no questions or complaints. informed of need to check labs. check lithium level and thyroid labs tonight. 04/15: refusing labs. delusional re his brother harming him. verbally abusive toward MD. spat in floor. happy with improvement in proptosis. 04/16: Lying in bed. Calm. cooperative. guarded. Pt reports feeling tired this morning d/t poor sleep last night. Pt stated, I don't need anything. I didn't sleep well so I'm trying to catch up . denies any issues at this time. denies SI/HI/VH/AH. Continue current tx plan. 04/17: more calm today, less explosive. continue current mgmt. 04/18: continues more calm. tolerating moments of frustration without verbally attacking MD. slept only 2 hours overnight, however. continue current mgmt. 04/19 continues to push boundaries and limits with staff mike around cell phone- 04/20 - aggressive with staff and unpredictable- threw water pitcher at staff behind desk/-when seen by provider passive in bed-denying all compaints/sys- no insight 04/21: appears as per last week. more difficult behaviors around cell phone use, did throw pitcher of water at RN monday over phone use and was restrained. continue current mgmt. 04/22: continues to have conflict around cell phone use. consolidate zyprexa at HS to decrease daytime sedation. 1:1 allegra shift until peer he is accusing of not being a real patient and appears to be targeting discharges tomorrow. 04/23: lithium 0.6 on 600 BID. sleeping better, remains delusional (telling SW who is marginally younger than him that she could be his daughter). just changed zyprexa dosing as of last night. continue current regimen and observe for continued stabilization. T/C slight increase in lithium dosing. 04/24: Laying in bed. guarded. calm. did not want to get out of bed to meet with T/W. Pt reports feeling great today but declined to go into detail. listening to music on unit headphones. Pt stated, I'm fine. I don't need anything . denies any issues at this time. denies SI/HI/VH/AH. Continue current tx plan. 04/25: Laying in bed. keeping to self. calm. paranoid. Discussed incident that occurred with staff last evening. Pt stated, the counselor made up a lie yesterday. I said she looks like my ex-girlfriend. I know they are related. They want to make up a lie to irritate me. They are trying to talk to me so they can use recording devices and make me look some kind of way . listening to music on unit headphones. denies SI/HI/VH/AH. Continue current tx plan. 04/26: Continue current regimen and plans. Increase Zyprexa 20 mg q.h.s. fresh air break withheld 04/27: Continue current regimen and plans 04/28: somewhat less irritable and agitated than last week. however, over the weekend was claiming he was the father of a footballer on TV and also that a staff member is a twin of his ex-GF (and he pushed staff member). TFTs improving. continue current mgmt. 04/29: no change in presentation. continue current mgmt. 04/30: no irritable edge today. calm, pleasant. engaging in small talk. reality testing not pressed. continue current mgmt for now. 05/01: no change in presentation. continue current mgmt. 05/02: BPs coming down, DC beta joanne as pt has been refusing anyway. remains not antagonistic toward MD. using phone appropriately. continue current mgmt otherwise. 05/03 continue 05/04: remains delusional, irritable/labile when delusional system confronted. declines to sign TOMMY for [facility] records. continue current mgmt. 05/06: declining to meet with MD, but does meet with medical student. remains upset about yesterday's confrontation re his delusional system. 05/07: Active on unit. keeping to self. pacing unit hallway while listening to unit headphones. medication compliant. patient reports feeling good ; pt stated, I'm just waiting to leave here. I want to return to my life and do things like go grocery shopping . denies SI/HI/VH/AH. Continue current tx plan. 05/08: stable presentation, delusions not being brought to the surface daily. remains affectively improved from admission. continue current mgmt. 05/09: calm, pleasant. no questions or complaints. continue current mgmt. 05/10: no change in presentation. due to lack of improvement in dental infection Sx, DC PCN and start augmentin. 05/11: no change in presentation. continue current mgmt. 05/12: as for yesterday. dental pain improving a bit. 05/13: expressed to medical student that his brother poisoned him, causing his thyroid disease. no change in presentation. continue current mgmt. 05/14: Pacing unit hallway. keeping to self. patient reports feeling good today; denies any issues at this time. denies SI/HI/VH/AH. per nursing, slept 5 hours. Continue current tx plan. 05/15: slept 6 hours. otherwise isolative, difficult to engage. continue current mgmt. 05/16: slept 7 hours. as for yesterday otherwise. 05/17/25: Slept well, no issue with appetite, skinny and pretty tall. Compliant with medication. No side effects Calm and pleasant upon approach. Some what paranoid. Tangential, however denies other safety concerns. Questions if he is discharging soon. He is on antibiotic for 7 days for mouth pain/tooth pain. We will finish the 7 course up in antibiotic after tonight dose. Then discontinue. 05/18/25: Slept for 5 hours plus hours this morning. In bed most of the shift, no behavior issues. Denies other safety concerns. 05/19: in bed days, up eves. no change in presentation. continue current mgmt. 05/20: no change in presentation. check labs. 05/21: lithium low, TFTs mixed and not all back. increase lithium from 600 BID to 600/900. trend BUN/Cr, with slight elevation. otherwise continue current mgmt. 05/22: no change in presentation. continue current mgmt. 05/23: does not deny someone stole his sperm and impregnated his landlord's child with it. irritable. c/o dental pain, antibx restarted. otherwise continue current mgmt. 05/14: no change in mgt 05/25: more isolative today; no change in mgt 05/26: decreases in methimazole noted. continue psych regimen as is. pt refused to interact with MD today. 05/27: i'm sleeping. no change in presentation. labs tonight. 05/28: no change in behavior. lithium 0.66, BUN stable. continue current mgmt. 05/29: irritable. continue current mgmt. 05/30: no longer in single room. still not engaging, sleeping days. continue current mgmt. 05/31:laying in bed. declined to meet with T/W. pt stated, I want to sleep. I didn't sleep enough . Pt encouraged to reach out to staff if he needs anything. Continue current tx plan. 06/01: Similar to yesterday. laying in bed. Irritable. declined to meet with T/W and pulled bed sheets over head. pt stated, I don't want to talk. I want to sleep . difficult to engage. Continue current tx plan. 06/02: Similar to yesterday. laying in bed. Irritable. declined to meet with T/W. Observed getting drink from kitchen; T/W approached pt and asked if they could speak. patient declined to acknowledge T/W and walked past. Continue current tx plan. 06/03: no change in behavior. continue tx plan. 06/04/25: Passive engaged in the assessment, in bed mostly sleeping this morning which could be interfere with his nighttime. Cover body under the blanket Slept for 4-5 hours last night. Was medication compliant, attended no groups, isolative to self in room. No SI/SIB/HI/AVH expressed. 06/05: continue tx plan. 06/06: reports feeling fine ; continues guarded. difficult to engage. declining to meet with T/W. continue tx plan. 06/07/25: Slept for 4 hours at night, but has been sleeping most of the day yesterday as well. Spent majority of the shift in bed, was medication compliant. Passive engaged in the conversation. He said he will try to change the sleeping pattern so that he can be awake more during the daytime. Appear to be sedated in the morning. No safety behavior. 06/08/25: Slept for 3-4 hours last night, compliant with medications. Denies side effects, denies other safety concerns. Continued to encourage patient to up and down more than on the unit he spent most of the day sleeping. He is pleasant upon approach. No other behavior issues. Denied voices/hallucinations. Suicide thoughts or homicidal thoughts. 06/09: sleeping, minimally rousable. denies problems. continue current mgmt. 06/10: sleeping all day, up most of the night. minimally rousable. denies problems. continue current mgmt. per JAMAIAC Arrington: Jean said when he leaves he can return to [facility]. he was living with a lady there and can go back. He plans to get a job to pay off his debt. He said he owes money because they sent him back here due to losing his passport and he owes them money for the temporary emergency passport and the flight back to the . so his main focus is to get a job. he said he will try things here first and if it doesn't work out he plans to return to [place]. 06/11/25: Passively engaged in conversation while in bed sleeping/resting. Able to answer question appropriately, but seems to be minimized. Denies SI/SIB/HI/AVH. He slept 5 hours last night, spent most of the day in bed sleeping. Attempted to no groups, observed out to the afternoon in the subramanian near the nurse station. No change in presentation. Encourage groups,up and engaged in groups. 06/12: not engaging. no complaints or questions re med changes. cross-taper zyprexa in favor of invega, give MONTERO invega. tonight, decrease zyprexa to 15 mg and start invega 3 mg. otherwise continue current mgmt. 06/13: continues avoidant and disengaged. denies side effects from med change last night. informed cross-titration will advance tonight. decrease zyprexa to 10 mg tonight, increase paliperidone to 6 mg. plan to continue by 5 mg zyprexa and 3 mg paliperidone increments every several days as tolerated until zyprexa DCed and paliperidone at 12 mg QHS. once it is established pt is tolerating PO Paliperidone, invega sustenna to be administered. 06/14: Continue current regimen and plans 06/15: Continue current plans and regimen 06/16: irritable re neuroleptic change. denies side effects or problems with it, however. minimally engageable. increase invega to 9 QHS and decrfease zyprexa to 5 QHS. 06/17/25: Continued to be irritable regarding medication change/titration. However engaged in conversation, hyper verbal, paranoid, reports medication slow his thoughts down and he does not not like it. Poor insight and poor judgment. He thinks he only need lithium, not other medications. Remind patient to continue doing the sleep pattern changing. However his in bed mostly this morning. Slept for 4-5 hours last night. 06/18/25: Slept for 5 hours last night as he continues sleeping during daytime. Compliant with meds, did not c/o side effects.Passingly engaging in assessment. Denies safety concerns. Tolerate the tritation well. Will increase Inveag up to max of 12 tomorrow and Discontinue Olanzepine at HS. Continue to encourage up and out on day so he can sleep better at HS. 06/19/25: Patient slept for 5.5 hours last night, was medication compliant, mostly in his room yesterday but seen more often in the evening. Patient is awake in his room, listen to music, his morning tray was taken away and clean the area. He is very pleasant to talk to today, reports he feels good, denies side effects from medications, denies any safety concerns. Denies feeling sedation, denies anxiety/depression. He is receptive with the plan of medication over the weekends and next week, happy to hear about the medication plan. He also agree with the MONTERO Invega Sustenna on Monday. Encourage him to go out and attended to groups, he said that he will. Reported that he was out for groups a couple of times last week. Discontinue Haldol p.r.n.. Discontinue scheduled Zyprexa 5 mg at bedtime. Only on 10 Zyprexa at g IM daily p.r.n. as backup orders if refused Invega. Invega 12 mg at bedtime. Plan to monitor over the weekends and will give long-acting injection on Monday if tolerate with the p.o. well Reduce Seroquel 200 mg p.r.n. at bedtime to 100 p.r.n. at bedtime for insomnia. Seroquel 50 mg b.i.d. p.r.n. for agitation. Discontinue Motrin. Patient on lithium. Labs were for MondayJune 20: CMP, TSH with free T4. 06/20/25: In bed most of the day, was compliant with medication, however refused labs work. Re- scheduled for Monday. Continue with Invega 12 mg at bedtime. We will reassess and offer long-acting injection on Monday. Continue to encourage patient to get up and go to some groups. No safety concerns expressed. Minimal peer and staff interaction. 06/21: no change in presentation. start MONTERO monday. no s/e from invega. otherwise continue current mgmt. 06/22: stable. continue current mgmt. 06/23/25: More awake and alert. Review with patient regarding policy for his phone use BID 30min each time, patient is educated on compliant with policy. He asks for more 5-10 min extra headphone use at night on the weekends after 2300. Once again, redirected for unit rules. He agrees with MONTERO which is scheduled today. Discontinue Invega PO Invega Sustenna 234mg IM once. Will monitor for possible side effects and sedation. Will offer 156mg after 1 week. If mentaly stable with 156mg, will maintain at this dose, if not will offer 234mg Monthly. 06/24/25: Slept for 5 hours last night, but also went to bed around 7 tonight p.m. last night per his report. He also attended to groups in the afternoon yesterday. Compliant with medications. No side effects from Invega Sustenna. He is engaged in full conversation today why he is in bed, denies safety concerns. Observe he is on the unit, social with peers and staff in longer period of time. Appeared to be happy. He plans to take shower today. Reported that he was up early but he does not feel hungry in the morning. He is making progress, not too sedated during daytime since switching his medication. Appears to do well so far with Rosy Lyons. Patient educated on: medication risk/benefits and therapeutic strategies Informed Consent: understands Reason for continued inpatient stay Substantial Risk for: med/psych decompensation Time Spent With Patient Time: Total time managing care of this patient today ____ minutes.
[2025-06-24 20:10] VITALS: BP 128/63; PULSE 78; RESP 16; TEMP 36.9; O2SAT 98
[2025-06-25 08:00] VITALS: BP 146/78; PULSE 94; RESP 16; TEMP 37.5; O2SAT 99
[2025-06-25 08:20] LABS: MANUAL DIFF FLAG NO
[2025-06-25 08:21] LABS: Hematocrit 42.7 % (42.0-52.0); Hemoglobin 14.0 g/dl (14.0-18.0); Imm Gran Pct Auto 0.1 % (0.0-0.4); Mean Corpuscular HGB Conc 32.8 g/dl (31.0-36.0); Mean Corpuscular Hemoglobin 26.4 pg (27.0-33.0); Mean Corpuscular Volume 80.4 fL (80.0-98.0); Platelet Count 269 X10*3/uL (160-400); Red Blood Count 5.31 X10*6/uL (4.60-5.80); White Blood Count 8.9 X10*3/uL (4.8-10.8)
[2025-06-25 08:22] LABS: Imm Gran Abs Auto 0.01 X10*3/uL (0.00-0.03); Lymphocytes Absolute Auto 2.3 X10*3/uL (1.2-4.9); NRBC Abs Auto 0.000 X10*3/uL (0.0-0.012); NRBC Pct Auto 0.0 /100WBC (0.0-0.2)
--- NOTE | 2025-06-25 19:00 | HO.PSYCHPN ---
Subjective Subjective Date of Service: 06/25/25 Reason For Visit: psychotic disorder Subjective Notes: [place] Order and Section 8 Healthcare Proxy: No Guardianship: No Medical Problems Affecting Mental Status: No Interim History: Medical record and nursing notes reviewed; case discussed during rounds with team/nursing staff, and met with patient for supportive therapy/psychoeducation, as well as medication management. Patient slept for 4 hours last night, however he reported was napping in the afternoon for couple hours which affect his sleeping pattern at night. Educate patient to not napping late in the evening. He is receptive. Compliant with medications, no side effects. He reports his did not shower yesterday but he will today. He is awake in his room not sleeping, engage in full conversation, no delusional or paranoid statements make. He is visible at times. Continued to improve in mood, engaging in other activities on the unit. Denies other safety concerns. Denies hallucinations. No irritability mood, not sedated during day time compared to when he was taking olanzapine. Medication Compliance: Yes Side effects from medications: No Attending Groups: Intermittent Review of Systems Acute medical concerns: No Medical Review of Systems: unchanged Review of Systems Review of Systems Constitutional: Denies fatigue and Denies fever(s) Cardiovascular: Denies chest pain and Denies dyspnea Respiratory: Denies dyspnea Gastrointestinal: Denies abdominal pain Psychiatric: denies suicidal ideation Endocrine: Denies fatigue Yes all other systems are reviewed and are negative Mental Status Exam Mental Status Exam Narrative: He is in bed cover self with a blanket from the shoulder, was in bed but awake,, actively engaged in full conversation., denies SI/SIB/HI/AVH, more logical. Denies safety concerns. No SI//SIB/HI/AVH expressed.Visible, social, no irritable mood. Appear to be happy. Diagnostics Vital Signs (24Hr): Vital Signs - 24 hr 06/24/25 20:10 06/25/25 08:00 Temperature 98.4 F 99.5 F Pulse Rate 78 94 Respiratory Rate 16 16 Blood Pressure 128/63 146/78 H Pulse Oximetry 98 99 Oxygen Delivery Method Room Air Room Air BMI result Body Mass Index 24.0 Labs 06/25/25 08:02 06/20/25 20:35 Labs: Laboratory Results - last 48 hr 06/25/25 08:02 WBC 8.9 RBC 5.31 Hgb 14.0 Hct 42.7 MCV 80.4 MCH 26.4 L MCHC 32.8 RDW 14.2 Plt Count 269 MPV 10.7 Immature Gran % (Auto) 0.1 Neut % (Auto) 56.8 Lymph % (Auto) 26.2 Grayson % (Auto) 9.8 Eos % (Auto) 6.4 H Baso % (Auto) 0.7 Lymph # (Auto) 2.3 Grayson # (Auto) 0.9 Eos # (Auto) 0.6 H Baso # (Auto) 0.1 Abs Immat Gran (auto) 0.01 Absolute Neuts (auto) 5.0 Absolute Nucleated RBC 0.000 Nucleated RBC % (auto) 0.0 Medications Medications Current Medications Benzocaine (Benzocaine 20 % Oral Gel 14 Gm Tube) 1 appl MUCOUS MEM QID PRN; Protocol PRN Reason: Mouth Sore Pain Last Admin: 04/26/25 18:33 Dose: 1 appl Diazepam (Diazepam 10 Mg/2 Ml Cartridge) 10 mg IM BID PRN PRN Reason: refusal of lithium, per everett Last Admin: 04/11/25 09:56 Dose: 10 mg Ibuprofen (Ibuprofen 400 Mg Tablet) 400 mg PO Q6H PRN PRN Reason: Pain, Moderate(Pain Scale 4-6) Last Admin: 06/24/25 00:08 Dose: 400 mg Monserrate Carbonate (Monserrate Carbonate Er 300 Mg Tablet.Er) 600 mg PO DAILY [facility] Last Admin: 06/25/25 09:13 Dose: 600 mg Monserrate Carbonate (Monserrate Carbonate Er 450 Mg Tablet.Er) 900 mg PO DAILY@2300 [facility] Last Admin: 06/25/25 00:11 Dose: 900 mg Methimazole (Methimazole 10 Mg Tablet) 10 mg PO DAILY [facility] Last Admin: 06/25/25 09:13 Dose: 10 mg Nicotine (Nicotine 21 Mg Patch.Td24) 21 mg TRANSDERMA DAILY PRN PRN Reason: nicotine cravings Last Admin: 04/12/25 17:06 Dose: 21 mg Nicotine Polacrilex (Nicotine Polacrilex Lozenge 2 Mg Lozenge) 2 mg BUCCAL Q1H PRN PRN Reason: Nicotine Cravings Last Admin: 04/30/25 08:49 Dose: 2 mg Patient Own Medication Excedrin 250/250/65mg 2 each PO Q8H PRN PRN Reason: Migraine Headache Last Admin: 04/18/25 18:03 Dose: 2 each Olanzapine (Olanzapine 10 Mg Vial) 10 mg IM DAILY PRN PRN Reason: if refuse Invega PO Quetiapine Fumarate (Quetiapine Fumarate 100 Mg Tablet) 100 mg PO BEDTIME PRN PRN Reason: insomnia Quetiapine Fumarate (Quetiapine Fumarate 50 Mg Tablet) 50 mg PO BID PRN PRN Reason: agitation Allergies Allergies Allergy/AdvReac Type Severity Reaction Status Date / Time No Known Allergies Allergy Verified 03/26/25 14:24 Assessment & Plan Assessment & Plan (1) Graves disease: Status: Acute Code(s): E05.00 - Thyrotoxicosis with diffuse goiter without thyrotoxic crisis or storm Assessment and Plan: Hyperthyroidism/Graves disease. He will need follow up with endocrinology as an outpatient He will also need a primary care doctor referral as an outpatient Discussed with Dr. Bejarano, patient will need free T4 weekly Decrease Methimazole to 15 mgs daily for three days and then 10 mgs daily- discussed with patient he is aware of plan and rationale. TSH and free T4 every 4 weeks. No need to draw thyroid stimulation immunology or TSH receptor AB (2) Dental abscess: Status: Acute Code(s): K04.7 - Periapical abscess without sinus Assessment and Plan: Carious tooth/dental infection Recently treated with PEN VK 500 mg q.6 hours for 7 days Patient will need follow up with dentist on discharge for tooth extraction Motrin helping pain. (3) Becca: Status: Acute Code(s): F30.9 - Manic episode, unspecified Plan 03/26: offer lithium and seroquel for becca. continue methimazole and beta joanne for hyperthyroidism as started at [facility]. trend TFTs. 12b. 03/27: taking methimazole and beta joanne. refused HS meds last night, took morning meds today. continue to encourage medication compliance. 03/28: intermittently taking meds. wants all meds in morning. pressured, manic, paranoid delusions. encouraged to take lithium but states he will not. all meds ordered for morning. 03/29: Keeping to self. no groups. observed laying in bed listening to music on unit headphones. pleasant. Pt reports feeling good today and sleeping well. declined lithium and zyprexa. denies SI/HI/VH/AH. continue current tx plan. 03/30:Irritable. upset he was unable to use his personal hygiene products. Per nursing, pt threatened staff and squeezed tooth paste throughout unit hallway to show his frustration. Pt was able to calm down after speaking with security. declined medications. 03/31: Keeping to self. laying in bed listening to music. refused medications. calm today. Patient reports feeling great ; pt stated, nothing is wrong with me. I'm waiting so I can leave tomorrow. I'm hoping for the best . denies SI/HI/VH/AH. per nursing, slept 6 hours. Continue current tx plan. 04/01: variably calm on the unit versus highly agitated. paranoid delusions, irritability, lability continue. seems to believe MD has met him prior to the present hospitalization and is stalking him. believes brother behind conspiracy to have him psychiatrically hospitalized. has been refusing all medications, including for hyperthyroidism. informed he would be filed on. filed. continue to offer medications. 04/02: continues agitated, belittling, verbally aggressive, refusing all medications including for hyperthyroidism. continue to offer medication. 04/03: paranoid there is a conspiracy to hospitalize him. threatening to stick a stick in staff once he is released by game artist. insists his hyperthyroidism was cured at [facility]. asserts there is NOTHING wrong with him. continue to offer medication. 04/04: irritable, rejecting. verbally abuses MD and sends him away: see you on monday [in court]. continue to offer medication for thyroid condition and mental illness. 04/05 continue tx. suspicious and guarded, accusatory, verbal threats to hurt staff and peers 04/06 intrusive, posturing towards staff and peer who he thinks is not real and is an impostor, continues to make verbal threats to harm him but thinks that because he is not real he may not experience any pain. 04/07: threatening statements and behaviors of yesterday noted. pt sleeping this morning, dismissive of MD. 04/08: asleep days. committed and meds ordered by court. 04/09: on being informed of court order and MD insisting on meds, pt escalated to hurling food item in container against wall at high speed and saying he wished he could do the same to MD's head. pt eventually took court ordered meds PO. sensodyne and excedrin not available in pharmacy (pt requesting them). 04/10: continue tx. Pt accepting medication today. 04/11: Keeping to self. Lying in bed most of morning. Declined to meet with T/W. Pt stated, I'm fine. I don't need anything . Listening to headphones in room. Declined court ordered PO medications; received IM medications. Refused vital signs.continue tx plan. 04/12: got IMs yesterday, took PO this morning. sleepy, no concerns or complaints. 04/13: taking PO meds again. slept 7 hours. sleepy again mid morning refusing interview. continue current mgmt. 04/14: sleeping, rousable. denies being sedated or tired, says he's just bored. no questions or complaints. informed of need to check labs. check lithium level and thyroid labs tonight. 04/15: refusing labs. delusional re his brother harming him. verbally abusive toward MD. spat in floor. happy with improvement in proptosis. 04/16: Lying in bed. Calm. cooperative. guarded. Pt reports feeling tired this morning d/t poor sleep last night. Pt stated, I don't need anything. I didn't sleep well so I'm trying to catch up . denies any issues at this time. denies SI/HI/VH/AH. Continue current tx plan. 04/17: more calm today, less explosive. continue current mgmt. 04/18: continues more calm. tolerating moments of frustration without verbally attacking MD. slept only 2 hours overnight, however. continue current mgmt. 04/19 continues to push boundaries and limits with staff mike around cell phone- 04/20 - aggressive with staff and unpredictable- threw water pitcher at staff behind desk/-when seen by provider passive in bed-denying all compaints/sys- no insight 04/21: appears as per last week. more difficult behaviors around cell phone use, did throw pitcher of water at RN monday over phone use and was restrained. continue current mgmt. 04/22: continues to have conflict around cell phone use. consolidate zyprexa at HS to decrease daytime sedation. 1:1 allegra shift until peer he is accusing of not being a real patient and appears to be targeting discharges tomorrow. 04/23: lithium 0.6 on 600 BID. sleeping better, remains delusional (telling SW who is marginally younger than him that she could be his daughter). just changed zyprexa dosing as of last night. continue current regimen and observe for continued stabilization. T/C slight increase in lithium dosing. 04/24: Laying in bed. guarded. calm. did not want to get out of bed to meet with T/W. Pt reports feeling great today but declined to go into detail. listening to music on unit headphones. Pt stated, I'm fine. I don't need anything . denies any issues at this time. denies SI/HI/VH/AH. Continue current tx plan. 04/25: Laying in bed. keeping to self. calm. paranoid. Discussed incident that occurred with staff last evening. Pt stated, the counselor made up a lie yesterday. I said she looks like my ex-girlfriend. I know they are related. They want to make up a lie to irritate me. They are trying to talk to me so they can use recording devices and make me look some kind of way . listening to music on unit headphones. denies SI/HI/VH/AH. Continue current tx plan. 04/26: Continue current regimen and plans. Increase Zyprexa 20 mg q.h.s. fresh air break withheld 04/27: Continue current regimen and plans 04/28: somewhat less irritable and agitated than last week. however, over the weekend was claiming he was the father of a footballer on TV and also that a staff member is a twin of his ex-GF (and he pushed staff member). TFTs improving. continue current mgmt. 04/29: no change in presentation. continue current mgmt. 04/30: no irritable edge today. calm, pleasant. engaging in small talk. reality testing not pressed. continue current mgmt for now. 05/01: no change in presentation. continue current mgmt. 05/02: BPs coming down, DC beta joanne as pt has been refusing anyway. remains not antagonistic toward MD. using phone appropriately. continue current mgmt otherwise. 05/03 continue 05/04: remains delusional, irritable/labile when delusional system confronted. declines to sign TOMMY for [facility] records. continue current mgmt. 05/06: declining to meet with MD, but does meet with medical student. remains upset about yesterday's confrontation re his delusional system. 05/07: Active on unit. keeping to self. pacing unit hallway while listening to unit headphones. medication compliant. patient reports feeling good ; pt stated, I'm just waiting to leave here. I want to return to my life and do things like go grocery shopping . denies SI/HI/VH/AH. Continue current tx plan. 05/08: stable presentation, delusions not being brought to the surface daily. remains affectively improved from admission. continue current mgmt. 05/09: calm, pleasant. no questions or complaints. continue current mgmt. 05/10: no change in presentation. due to lack of improvement in dental infection Sx, DC PCN and start augmentin. 05/11: no change in presentation. continue current mgmt. 05/12: as for yesterday. dental pain improving a bit. 05/13: expressed to medical student that his brother poisoned him, causing his thyroid disease. no change in presentation. continue current mgmt. 05/14: Pacing unit hallway. keeping to self. patient reports feeling good today; denies any issues at this time. denies SI/HI/VH/AH. per nursing, slept 5 hours. Continue current tx plan. 05/15: slept 6 hours. otherwise isolative, difficult to engage. continue current mgmt. 05/16: slept 7 hours. as for yesterday otherwise. 05/17/25: Slept well, no issue with appetite, skinny and pretty tall. Compliant with medication. No side effects Calm and pleasant upon approach. Some what paranoid. Tangential, however denies other safety concerns. Questions if he is discharging soon. He is on antibiotic for 7 days for mouth pain/tooth pain. We will finish the 7 course up in antibiotic after tonight dose. Then discontinue. 05/18/25: Slept for 5 hours plus hours this morning. In bed most of the shift, no behavior issues. Denies other safety concerns. 05/19: in bed days, up eves. no change in presentation. continue current mgmt. 05/20: no change in presentation. check labs. 05/21: lithium low, TFTs mixed and not all back. increase lithium from 600 BID to 600/900. trend BUN/Cr, with slight elevation. otherwise continue current mgmt. 05/22: no change in presentation. continue current mgmt. 05/23: does not deny someone stole his sperm and impregnated his landlord's child with it. irritable. c/o dental pain, antibx restarted. otherwise continue current mgmt. 05/14: no change in mgt 05/25: more isolative today; no change in mgt 05/26: decreases in methimazole noted. continue psych regimen as is. pt refused to interact with MD today. 05/27: i'm sleeping. no change in presentation. labs tonight. 05/28: no change in behavior. lithium 0.66, BUN stable. continue current mgmt. 05/29: irritable. continue current mgmt. 05/30: no longer in single room. still not engaging, sleeping days. continue current mgmt. 05/31:laying in bed. declined to meet with T/W. pt stated, I want to sleep. I didn't sleep enough . Pt encouraged to reach out to staff if he needs anything. Continue current tx plan. 06/01: Similar to yesterday. laying in bed. Irritable. declined to meet with T/W and pulled bed sheets over head. pt stated, I don't want to talk. I want to sleep . difficult to engage. Continue current tx plan. 06/02: Similar to yesterday. laying in bed. Irritable. declined to meet with T/W. Observed getting drink from kitchen; T/W approached pt and asked if they could speak. patient declined to acknowledge T/W and walked past. Continue current tx plan. 06/03: no change in behavior. continue tx plan. 06/04/25: Passive engaged in the assessment, in bed mostly sleeping this morning which could be interfere with his nighttime. Cover body under the blanket Slept for 4-5 hours last night. Was medication compliant, attended no groups, isolative to self in room. No SI/SIB/HI/AVH expressed. 06/05: continue tx plan. 06/06: reports feeling fine ; continues guarded. difficult to engage. declining to meet with T/W. continue tx plan. 06/07/25: Slept for 4 hours at night, but has been sleeping most of the day yesterday as well. Spent majority of the shift in bed, was medication compliant. Passive engaged in the conversation. He said he will try to change the sleeping pattern so that he can be awake more during the daytime. Appear to be sedated in the morning. No safety behavior. 06/08/25: Slept for 3-4 hours last night, compliant with medications. Denies side effects, denies other safety concerns. Continued to encourage patient to up and down more than on the unit he spent most of the day sleeping. He is pleasant upon approach. No other behavior issues. Denied voices/hallucinations. Suicide thoughts or homicidal thoughts. 06/09: sleeping, minimally rousable. denies problems. continue current mgmt. 06/10: sleeping all day, up most of the night. minimally rousable. denies problems. continue current mgmt. per JAMAICA Arrington: Jean said when he leaves he can return to [facility]. he was living with a lady there and can go back. He plans to get a job to pay off his debt. He said he owes money because they sent him back here due to losing his passport and he owes them money for the temporary emergency passport and the flight back to the . so his main focus is to get a job. he said he will try things here first and if it doesn't work out he plans to return to [place]. 06/11/25: Passively engaged in conversation while in bed sleeping/resting. Able to answer question appropriately, but seems to be minimized. Denies SI/SIB/HI/AVH. He slept 5 hours last night, spent most of the day in bed sleeping. Attempted to no groups, observed out to the afternoon in the subramanian near the nurse station. No change in presentation. Encourage groups,up and engaged in groups. 06/12: not engaging. no complaints or questions re med changes. cross-taper zyprexa in favor of invega, give MONTERO invega. tonight, decrease zyprexa to 15 mg and start invega 3 mg. otherwise continue current mgmt. 06/13: continues avoidant and disengaged. denies side effects from med change last night. informed cross-titration will advance tonight. decrease zyprexa to 10 mg tonight, increase paliperidone to 6 mg. plan to continue by 5 mg zyprexa and 3 mg paliperidone increments every several days as tolerated until zyprexa DCed and paliperidone at 12 mg QHS. once it is established pt is tolerating PO Paliperidone, invega sustenna to be administered. 06/14: Continue current regimen and plans 06/15: Continue current plans and regimen 06/16: irritable re neuroleptic change. denies side effects or problems with it, however. minimally engageable. increase invega to 9 QHS and decrfease zyprexa to 5 QHS. 06/17/25: Continued to be irritable regarding medication change/titration. However engaged in conversation, hyper verbal, paranoid, reports medication slow his thoughts down and he does not not like it. Poor insight and poor judgment. He thinks he only need lithium, not other medications. Remind patient to continue doing the sleep pattern changing. However his in bed mostly this morning. Slept for 4-5 hours last night. 06/18/25: Slept for 5 hours last night as he continues sleeping during daytime. Compliant with meds, did not c/o side effects.Passingly engaging in assessment. Denies safety concerns. Tolerate the tritation well. Will increase Inveag up to max of 12 tomorrow and Discontinue Olanzepine at HS. Continue to encourage up and out on day so he can sleep better at HS. 06/19/25: Patient slept for 5.5 hours last night, was medication compliant, mostly in his room yesterday but seen more often in the evening. Patient is awake in his room, listen to music, his morning tray was taken away and clean the area. He is very pleasant to talk to today, reports he feels good, denies side effects from medications, denies any safety concerns. Denies feeling sedation, denies anxiety/depression. He is receptive with the plan of medication over the weekends and next week, happy to hear about the medication plan. He also agree with the MONTERO Invega Sustenna on Monday. Encourage him to go out and attended to groups, he said that he will. Reported that he was out for groups a couple of times last week. Discontinue Haldol p.r.n.. Discontinue scheduled Zyprexa 5 mg at bedtime. Only on 10 Zyprexa at g IM daily p.r.n. as backup orders if refused Invega. Invega 12 mg at bedtime. Plan to monitor over the weekends and will give long-acting injection on Monday if tolerate with the p.o. well Reduce Seroquel 200 mg p.r.n. at bedtime to 100 p.r.n. at bedtime for insomnia. Seroquel 50 mg b.i.d. p.r.n. for agitation. Discontinue Motrin. Patient on lithium. Labs were for MondayJune 20: CMP, TSH with free T4. 06/20/25: In bed most of the day, was compliant with medication, however refused labs work. Re- scheduled for Monday. Continue with Invega 12 mg at bedtime. We will reassess and offer long-acting injection on Monday. Continue to encourage patient to get up and go to some groups. No safety concerns expressed. Minimal peer and staff interaction. 06/21: no change in presentation. start MONTERO monday. no s/e from invega. otherwise continue current mgmt. 06/22: stable. continue current mgmt. 06/23/25: More awake and alert. Review with patient regarding policy for his phone use BID 30min each time, patient is educated on compliant with policy. He asks for more 5-10 min extra headphone use at night on the weekends after 2300. Once again, redirected for unit rules. He agrees with MONTERO which is scheduled today. Discontinue Invega PO Invega Sustenna 234mg IM once. Will monitor for possible side effects and sedation. Will offer 156mg after 1 week. If mentaly stable with 156mg, will maintain at this dose, if not will offer 234mg Monthly. 06/24/25: Slept for 5 hours last night, but also went to bed around 7 tonight p.m. last night per his report. He also attended to groups in the afternoon yesterday. Compliant with medications. No side effects from Invega Sustenna. He is engaged in full conversation today why he is in bed, denies safety concerns. Observe he is on the unit, social with peers and staff in longer period of time. Appeared to be happy. He plans to take shower today. Reported that he was up early but he does not feel hungry in the morning. He is making progress, not too sedated during daytime since switching his medication. Appears to do well so far with Invega Sustenna. 06/25/25: Patient slept for 4 hours last night, however he reported was napping in the afternoon for couple hours which affect his sleeping pattern at night. Educate patient to not napping late in the evening. He is receptive. Compliant with medications, no side effects. He reports his did not shower yesterday but he will today. He is awake in his room not sleeping, engage in full conversation, no delusional or paranoid statements make. He is visible at times. Continued to improve in mood, engaging in other activities on the unit. Denies other safety concerns. Denies hallucinations. No irritability mood, not sedated during day time compared to when he was taking olanzapine. We will schedule Invega Sustenna 156 next Monday. Work with loft worker apprentice to see where he will return to. He probably needs VNA to manage medication. Patient educated on: diagnosis, medication risk/benefits and therapeutic strategies Informed Consent: understands and further education needed Reason for continued inpatient stay Substantial Risk for: med/psych decompensation Time Spent With Patient Time: Total time managing care of this patient today ____ minutes.
[2025-06-25 19:38] VITALS: BP 149/70; PULSE 85; RESP 18; TEMP 36.8; O2SAT 100
[2025-06-26 07:00] VITALS: BMI 24.2
--- NOTE | 2025-06-26 09:41 | HO.PSYCHPN ---
Subjective Subjective Date of Service: 06/26/25 Reason For Visit: psychotic disorder Subjective Notes: [place] Order and Section 8 Healthcare Proxy: No Guardianship: No Medical Problems Affecting Mental Status: No Interim History: Medical record and nursing notes reviewed; case discussed during rounds with team/nursing staff, and met with patient for supportive therapy/psychoeducation, as well as medication management. He slept for 5 hours, compliant with medications. Denies side effects. He self-reported that he went to bed last night and was able to fall asleep by 01:00 and able to stay asleep whole night. Denies safety concerns. I spoke with him in length today regarding aftercare. He thinks he will go to the hospital in [place] to ask them regarding his heart condition. He thinks people was lying to get him to the hospital as he does not have mental health illnesses. He believes that he has been exactly the same he was seen he was a little, and at he able to remember everything in the past. He also reports that he used to use [facility] in [place]. At 1st he does not want [facility] application. I explained to him that in order to be a candidate patient have to be a safe that he has mental health issues, so people can submit the application, and from the [facility] worker will contact him to do assessment if he qualify for any services that they can provide. Patient is receptive application, manager social responsibility was notified. Patient also would like to have services with [facility] in [place]. He showered yesterday morning, did not go to groups yesterday, but he will go to some groups today per his plan for the day, more awake, engaged in conversation, no irritability. However, continued to be poor insight of his illnesses. He does not want to return to his brother I have not talking to him for since 2021. He reported that that his brother told other people that patient was trying to kill his brother with a knife. He had question regarding the Invega Sustenna which is scheduled for next Monday. He does having good memory for whatever we discussed the past couple of days. Medication Compliance: Yes Side effects from medications: No Attending Groups: No Review of Systems Acute medical concerns: No Medical Review of Systems: unchanged Review of Systems Review of Systems Constitutional: Denies fatigue and Denies fever(s) Cardiovascular: Denies chest pain and Denies dyspnea Respiratory: Denies dyspnea Gastrointestinal: Denies abdominal pain Psychiatric: denies suicidal ideation Endocrine: Denies fatigue Yes all other systems are reviewed and are negative Mental Status Exam Mental Status Exam Narrative: He is out on the unit, was alert and awake,, actively engaged in full lengthy conversation., denies SI/SIB/HI/AVH, more logical but still do not believe he has mental health issues. Denies safety concerns. No SI//SIB/HI/AVH expressed.Visible, social, no irritable mood. calm, pleasant and cooperative. Diagnostics Vital Signs (24Hr): Vital Signs - 24 hr 06/25/25 19:38 Temperature 98.3 F Pulse Rate 85 Respiratory Rate 18 Blood Pressure 149/70 H Pulse Oximetry 100 Oxygen Delivery Method Room Air BMI result Body Mass Index 24.0 Labs 06/25/25 08:02 06/20/25 20:35 Labs: Laboratory Results - last 48 hr 06/25/25 08:02 WBC 8.9 RBC 5.31 Hgb 14.0 Hct 42.7 MCV 80.4 MCH 26.4 L MCHC 32.8 RDW 14.2 Plt Count 269 MPV 10.7 Immature Gran % (Auto) 0.1 Neut % (Auto) 56.8 Lymph % (Auto) 26.2 Cottle % (Auto) 9.8 Eos % (Auto) 6.4 H Baso % (Auto) 0.7 Lymph # (Auto) 2.3 Cottle # (Auto) 0.9 Eos # (Auto) 0.6 H Baso # (Auto) 0.1 Abs Immat Gran (auto) 0.01 Absolute Neuts (auto) 5.0 Absolute Nucleated RBC 0.000 Nucleated RBC % (auto) 0.0 Medications Medications Current Medications Benzocaine (Benzocaine 20 % Oral Gel 14 Gm Tube) 1 appl MUCOUS MEM QID PRN; Protocol PRN Reason: Mouth Sore Pain Last Admin: 04/26/25 18:33 Dose: 1 appl Diazepam (Diazepam 10 Mg/2 Ml Cartridge) 10 mg IM BID PRN PRN Reason: refusal of lithium, per everett Last Admin: 04/11/25 09:56 Dose: 10 mg Ibuprofen (Ibuprofen 400 Mg Tablet) 400 mg PO Q6H PRN PRN Reason: Pain, Moderate(Pain Scale 4-6) Last Admin: 06/24/25 00:08 Dose: 400 mg Narciso Pena Carbonate (Narciso Pena Carbonate Er 300 Mg Tablet.Er) 600 mg PO DAILY [facility] Last Admin: 06/26/25 08:34 Dose: 600 mg Narciso Pena Carbonate (Narciso Pena Carbonate Er 450 Mg Tablet.Er) 900 mg PO DAILY@2300 [facility] Last Admin: 06/26/25 00:26 Dose: 900 mg Methimazole (Methimazole 10 Mg Tablet) 10 mg PO DAILY [facility] Last Admin: 06/26/25 08:34 Dose: 10 mg Nicotine (Nicotine 21 Mg Patch.Td24) 21 mg TRANSDERMA DAILY PRN PRN Reason: nicotine cravings Last Admin: 04/12/25 17:06 Dose: 21 mg Nicotine Polacrilex (Nicotine Polacrilex Lozenge 2 Mg Lozenge) 2 mg BUCCAL Q1H PRN PRN Reason: Nicotine Cravings Last Admin: 04/30/25 08:49 Dose: 2 mg Patient Own Medication Excedrin 250/250/65mg 2 each PO Q8H PRN PRN Reason: Migraine Headache Last Admin: 04/18/25 18:03 Dose: 2 each Olanzapine (Olanzapine 10 Mg Vial) 10 mg IM DAILY PRN PRN Reason: if refuse Invega PO Quetiapine Fumarate (Quetiapine Fumarate 100 Mg Tablet) 100 mg PO BEDTIME PRN PRN Reason: insomnia Quetiapine Fumarate (Quetiapine Fumarate 50 Mg Tablet) 50 mg PO BID PRN PRN Reason: agitation Allergies Allergies Allergy/AdvReac Type Severity Reaction Status Date / Time No Known Allergies Allergy Verified 03/26/25 14:24 Assessment & Plan Assessment & Plan (1) Graves disease: Status: Acute Code(s): E05.00 - Thyrotoxicosis with diffuse goiter without thyrotoxic crisis or storm Assessment and Plan: Hyperthyroidism/Graves disease. He will need follow up with endocrinology as an outpatient He will also need a primary care doctor referral as an outpatient Discussed with Dr. Bejarano, patient will need free T4 weekly Decrease Methimazole to 15 mgs daily for three days and then 10 mgs daily- discussed with patient he is aware of plan and rationale. TSH and free T4 every 4 weeks. No need to draw thyroid stimulation immunology or TSH receptor AB (2) Dental abscess: Status: Acute Code(s): K04.7 - Periapical abscess without sinus Assessment and Plan: Carious tooth/dental infection Recently treated with PEN VK 500 mg q.6 hours for 7 days Patient will need follow up with dentist on discharge for tooth extraction Motrin helping pain. (3) Becca: Status: Acute Code(s): F30.9 - Manic episode, unspecified Plan 03/26: offer lithium and seroquel for becca. continue methimazole and beta joanne for hyperthyroidism as started at [facility]. trend TFTs. 12b. 03/27: taking methimazole and beta joanne. refused HS meds last night, took morning meds today. continue to encourage medication compliance. 03/28: intermittently taking meds. wants all meds in morning. pressured, manic, paranoid delusions. encouraged to take lithium but states he will not. all meds ordered for morning. 03/29: Keeping to self. no groups. observed laying in bed listening to music on unit headphones. pleasant. Pt reports feeling good today and sleeping well. declined lithium and zyprexa. denies SI/HI/VH/AH. continue current tx plan. 03/30:Irritable. upset he was unable to use his personal hygiene products. Per nursing, pt threatened staff and squeezed tooth paste throughout unit hallway to show his frustration. Pt was able to calm down after speaking with security. declined medications. 03/31: Keeping to self. laying in bed listening to music. refused medications. calm today. Patient reports feeling great ; pt stated, nothing is wrong with me. I'm waiting so I can leave tomorrow. I'm hoping for the best . denies SI/HI/VH/AH. per nursing, slept 6 hours. Continue current tx plan. 04/01: variably calm on the unit versus highly agitated. paranoid delusions, irritability, lability continue. seems to believe MD has met him prior to the present hospitalization and is stalking him. believes brother behind conspiracy to have him psychiatrically hospitalized. has been refusing all medications, including for hyperthyroidism. informed he would be filed on. filed. continue to offer medications. 04/02: continues agitated, belittling, verbally aggressive, refusing all medications including for hyperthyroidism. continue to offer medication. 04/03: paranoid there is a conspiracy to hospitalize him. threatening to stick a stick in staff once he is released by scientific manager. insists his hyperthyroidism was cured at [facility]. asserts there is NOTHING wrong with him. continue to offer medication. 04/04: irritable, rejecting. verbally abuses MD and sends him away: see you on monday [in court]. continue to offer medication for thyroid condition and mental illness. 04/05 continue tx. suspicious and guarded, accusatory, verbal threats to hurt staff and peers 04/06 intrusive, posturing towards staff and peer who he thinks is not real and is an impostor, continues to make verbal threats to harm him but thinks that because he is not real he may not experience any pain. 04/07: threatening statements and behaviors of yesterday noted. pt sleeping this morning, dismissive of MD. 04/08: asleep days. committed and meds ordered by court. 04/09: on being informed of court order and MD insisting on meds, pt escalated to hurling food item in container against wall at high speed and saying he wished he could do the same to MD's head. pt eventually took court ordered meds PO. sensodyne and excedrin not available in pharmacy (pt requesting them). 04/10: continue tx. Pt accepting medication today. 04/11: Keeping to self. Lying in bed most of morning. Declined to meet with T/W. Pt stated, I'm fine. I don't need anything . Listening to headphones in room. Declined court ordered PO medications; received IM medications. Refused vital signs.continue tx plan. 04/12: got IMs yesterday, took PO this morning. sleepy, no concerns or complaints. 04/13: taking PO meds again. slept 7 hours. sleepy again mid morning refusing interview. continue current mgmt. 04/14: sleeping, rousable. denies being sedated or tired, says he's just bored. no questions or complaints. informed of need to check labs. check lithium level and thyroid labs tonight. 04/15: refusing labs. delusional re his brother harming him. verbally abusive toward MD. spat in floor. happy with improvement in proptosis. 04/16: Lying in bed. Calm. cooperative. guarded. Pt reports feeling tired this morning d/t poor sleep last night. Pt stated, I don't need anything. I didn't sleep well so I'm trying to catch up . denies any issues at this time. denies SI/HI/VH/AH. Continue current tx plan. 04/17: more calm today, less explosive. continue current mgmt. 04/18: continues more calm. tolerating moments of frustration without verbally attacking MD. slept only 2 hours overnight, however. continue current mgmt. 04/19 continues to push boundaries and limits with staff mike around cell phone- 04/20 - aggressive with staff and unpredictable- threw water pitcher at staff behind desk/-when seen by provider passive in bed-denying all compaints/sys- no insight 04/21: appears as per last week. more difficult behaviors around cell phone use, did throw pitcher of water at RN monday over phone use and was restrained. continue current mgmt. 04/22: continues to have conflict around cell phone use. consolidate zyprexa at HS to decrease daytime sedation. 1:1 allegra shift until peer he is accusing of not being a real patient and appears to be targeting discharges tomorrow. 04/23: lithium 0.6 on 600 BID. sleeping better, remains delusional (telling SW who is marginally younger than him that she could be his daughter). just changed zyprexa dosing as of last night. continue current regimen and observe for continued stabilization. T/C slight increase in lithium dosing. 04/24: Laying in bed. guarded. calm. did not want to get out of bed to meet with T/W. Pt reports feeling great today but declined to go into detail. listening to music on unit headphones. Pt stated, I'm fine. I don't need anything . denies any issues at this time. denies SI/HI/VH/AH. Continue current tx plan. 04/25: Laying in bed. keeping to self. calm. paranoid. Discussed incident that occurred with staff last evening. Pt stated, the counselor made up a lie yesterday. I said she looks like my ex-girlfriend. I know they are related. They want to make up a lie to irritate me. They are trying to talk to me so they can use recording devices and make me look some kind of way . listening to music on unit headphones. denies SI/HI/VH/AH. Continue current tx plan. 04/26: Continue current regimen and plans. Increase Zyprexa 20 mg q.h.s. fresh air break withheld 04/27: Continue current regimen and plans 04/28: somewhat less irritable and agitated than last week. however, over the weekend was claiming he was the father of a footballer on TV and also that a staff member is a twin of his ex-GF (and he pushed staff member). TFTs improving. continue current mgmt. 04/29: no change in presentation. continue current mgmt. 04/30: no irritable edge today. calm, pleasant. engaging in small talk. reality testing not pressed. continue current mgmt for now. 05/01: no change in presentation. continue current mgmt. 05/02: BPs coming down, DC beta joanne as pt has been refusing anyway. remains not antagonistic toward MD. using phone appropriately. continue current mgmt otherwise. 05/03 continue 05/04: remains delusional, irritable/labile when delusional system confronted. declines to sign TOMMY for [facility] records. continue current mgmt. 05/06: declining to meet with MD, but does meet with medical student. remains upset about yesterday's confrontation re his delusional system. 05/07: Active on unit. keeping to self. pacing unit hallway while listening to unit headphones. medication compliant. patient reports feeling good ; pt stated, I'm just waiting to leave here. I want to return to my life and do things like go grocery shopping . denies SI/HI/VH/AH. Continue current tx plan. 05/08: stable presentation, delusions not being brought to the surface daily. remains affectively improved from admission. continue current mgmt. 05/09: calm, pleasant. no questions or complaints. continue current mgmt. 05/10: no change in presentation. due to lack of improvement in dental infection Sx, DC PCN and start augmentin. 05/11: no change in presentation. continue current mgmt. 05/12: as for yesterday. dental pain improving a bit. 05/13: expressed to medical student that his brother poisoned him, causing his thyroid disease. no change in presentation. continue current mgmt. 05/14: Pacing unit hallway. keeping to self. patient reports feeling good today; denies any issues at this time. denies SI/HI/VH/AH. per nursing, slept 5 hours. Continue current tx plan. 05/15: slept 6 hours. otherwise isolative, difficult to engage. continue current mgmt. 05/16: slept 7 hours. as for yesterday otherwise. 05/17/25: Slept well, no issue with appetite, skinny and pretty tall. Compliant with medication. No side effects Calm and pleasant upon approach. Some what paranoid. Tangential, however denies other safety concerns. Questions if he is discharging soon. He is on antibiotic for 7 days for mouth pain/tooth pain. We will finish the 7 course up in antibiotic after tonight dose. Then discontinue. 05/18/25: Slept for 5 hours plus hours this morning. In bed most of the shift, no behavior issues. Denies other safety concerns. 05/19: in bed days, up eves. no change in presentation. continue current mgmt. 05/20: no change in presentation. check labs. 05/21: lithium low, TFTs mixed and not all back. increase lithium from 600 BID to 600/900. trend BUN/Cr, with slight elevation. otherwise continue current mgmt. 05/22: no change in presentation. continue current mgmt. 05/23: does not deny someone stole his sperm and impregnated his landlord's child with it. irritable. c/o dental pain, antibx restarted. otherwise continue current mgmt. 05/14: no change in mgt 05/25: more isolative today; no change in mgt 05/26: decreases in methimazole noted. continue psych regimen as is. pt refused to interact with MD today. 05/27: i'm sleeping. no change in presentation. labs tonight. 05/28: no change in behavior. lithium 0.66, BUN stable. continue current mgmt. 05/29: irritable. continue current mgmt. 05/30: no longer in single room. still not engaging, sleeping days. continue current mgmt. 05/31:laying in bed. declined to meet with T/W. pt stated, I want to sleep. I didn't sleep enough . Pt encouraged to reach out to staff if he needs anything. Continue current tx plan. 06/01: Similar to yesterday. laying in bed. Irritable. declined to meet with T/W and pulled bed sheets over head. pt stated, I don't want to talk. I want to sleep . difficult to engage. Continue current tx plan. 06/02: Similar to yesterday. laying in bed. Irritable. declined to meet with T/W. Observed getting drink from kitchen; T/W approached pt and asked if they could speak. patient declined to acknowledge T/W and walked past. Continue current tx plan. 06/03: no change in behavior. continue tx plan. 06/04/25: Passive engaged in the assessment, in bed mostly sleeping this morning which could be interfere with his nighttime. Cover body under the blanket Slept for 4-5 hours last night. Was medication compliant, attended no groups, isolative to self in room. No SI/SIB/HI/AVH expressed. 06/05: continue tx plan. 06/06: reports feeling fine ; continues guarded. difficult to engage. declining to meet with T/W. continue tx plan. 06/07/25: Slept for 4 hours at night, but has been sleeping most of the day yesterday as well. Spent majority of the shift in bed, was medication compliant. Passive engaged in the conversation. He said he will try to change the sleeping pattern so that he can be awake more during the daytime. Appear to be sedated in the morning. No safety behavior. 06/08/25: Slept for 3-4 hours last night, compliant with medications. Denies side effects, denies other safety concerns. Continued to encourage patient to up and down more than on the unit he spent most of the day sleeping. He is pleasant upon approach. No other behavior issues. Denied voices/hallucinations. Suicide thoughts or homicidal thoughts. 06/09: sleeping, minimally rousable. denies problems. continue current mgmt. 06/10: sleeping all day, up most of the night. minimally rousable. denies problems. continue current mgmt. per JAMAICA Arrington: Jean said when he leaves he can return to [facility]. he was living with a lady there and can go back. He plans to get a job to pay off his debt. He said he owes money because they sent him back here due to losing his passport and he owes them money for the temporary emergency passport and the flight back to the [place]. so his main focus is to get a job. he said he will try things here first and if it doesn't work out he plans to return to [place]. 06/11/25: Passively engaged in conversation while in bed sleeping/resting. Able to answer question appropriately, but seems to be minimized. Denies SI/SIB/HI/AVH. He slept 5 hours last night, spent most of the day in bed sleeping. Attempted to no groups, observed out to the afternoon in the subramanian near the nurse station. No change in presentation. Encourage groups,up and engaged in groups. 06/12: not engaging. no complaints or questions re med changes. cross-taper zyprexa in favor of invega, give MONTERO invega. tonight, decrease zyprexa to 15 mg and start invega 3 mg. otherwise continue current mgmt. 06/13: continues avoidant and disengaged. denies side effects from med change last night. informed cross-titration will advance tonight. decrease zyprexa to 10 mg tonight, increase paliperidone to 6 mg. plan to continue by 5 mg zyprexa and 3 mg paliperidone increments every several days as tolerated until zyprexa DCed and paliperidone at 12 mg QHS. once it is established pt is tolerating PO Paliperidone, invega sustenna to be administered. 06/14: Continue current regimen and plans 06/15: Continue current plans and regimen 06/16: irritable re neuroleptic change. denies side effects or problems with it, however. minimally engageable. increase invega to 9 QHS and decrfease zyprexa to 5 QHS. 06/17/25: Continued to be irritable regarding medication change/titration. However engaged in conversation, hyper verbal, paranoid, reports medication slow his thoughts down and he does not not like it. Poor insight and poor judgment. He thinks he only need lithium, not other medications. Remind patient to continue doing the sleep pattern changing. However his in bed mostly this morning. Slept for 4-5 hours last night. 06/18/25: Slept for 5 hours last night as he continues sleeping during daytime. Compliant with meds, did not c/o side effects.Passingly engaging in assessment. Denies safety concerns. Tolerate the tritation well. Will increase Inveag up to max of 12 tomorrow and Discontinue Olanzepine at HS. Continue to encourage up and out on day so he can sleep better at HS. 06/19/25: Patient slept for 5.5 hours last night, was medication compliant, mostly in his room yesterday but seen more often in the evening. Patient is awake in his room, listen to music, his morning tray was taken away and clean the area. He is very pleasant to talk to today, reports he feels good, denies side effects from medications, denies any safety concerns. Denies feeling sedation, denies anxiety/depression. He is receptive with the plan of medication over the weekends and next week, happy to hear about the medication plan. He also agree with the MONTERO Invega Sustenna on Monday. Encourage him to go out and attended to groups, he said that he will. Reported that he was out for groups a couple of times last week. Discontinue Haldol p.r.n.. Discontinue scheduled Zyprexa 5 mg at bedtime. Only on Zyprexa at g IM daily p.r.n. as backup orders if refused Invega. Invega 12 mg at bedtime. Plan to monitor over the weekends and will give long-acting injection on Monday if tolerate with the p.o. well Reduce Seroquel 200 mg p.r.n. at bedtime to 100 p.r.n. at bedtime for insomnia. Seroquel 50 mg b.i.d. p.r.n. for agitation. Discontinue Motrin. Patient on lithium. Labs were for MondayJune 20: CMP, TSH with free T4. 06/20/25: In bed most of the day, was compliant with medication, however refused labs work. Re- scheduled for Monday. Continue with Invega 12 mg at bedtime. We will reassess and offer long-acting injection on Monday. Continue to encourage patient to get up and go to some groups. No safety concerns expressed. Minimal peer and staff interaction. 06/21: no change in presentation. start MONTERO monday. no s/e from invega. otherwise continue current mgmt. 06/22: stable. continue current mgmt. 06/23/25: More awake and alert. Review with patient regarding policy for his phone use BID 30min each time, patient is educated on compliant with policy. He asks for more 5-10 min extra headphone use at night on the weekends after 2300. Once again, redirected for unit rules. He agrees with MONTERO which is scheduled today. Discontinue Invega PO Invega Sustenna 234mg IM once. Will monitor for possible side effects and sedation. Will offer 156mg after 1 week. If mentaly stable with 156mg, will maintain at this dose, if not will offer 234mg Monthly. 06/24/25: Slept for 5 hours last night, but also went to bed around 7 tonight p.m. last night per his report. He also attended to groups in the afternoon yesterday. Compliant with medications. No side effects from Invega Sustenna. He is engaged in full conversation today why he is in bed, denies safety concerns. Observe he is on the unit, social with peers and staff in longer period of time. Appeared to be happy. He plans to take shower today. Reported that he was up early but he does not feel hungry in the morning. He is making progress, not too sedated during daytime since switching his medication. Appears to do well so far with [facility]. 06/25/25: Patient slept for 4 hours last night, however he reported was napping in the afternoon for couple hours which affect his sleeping pattern at night. Educate patient to not napping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
[2025-06-26 20:00] VITALS: RESP 16
[2025-06-27 07:49] VITALS: BP 120/57; PULSE 88; RESP 20; TEMP 36.9; O2SAT 100
--- NOTE | 2025-06-27 18:14 | P.PNPSI_ITS ---
Subjective Subjective Date of Service: 06/27/25 Reason For Visit: psychotic disorder Subjective Notes: [place] Order and Section 8 Healthcare Proxy: No Guardianship: No Medical Problems Affecting Mental Status: No Interim History: Medical record and nursing notes reviewed; case discussed during rounds with team/nursing staff, and met with patient for supportive therapy/psychoeducation, as well as medication management. Slept for 6 hours last night which is improving, continue to educate patient not to nap late in the evening so that he can sleep better at night. He still does not want to change medication at bedtime earlier than 2300. Observe he is out on the unit, listen to music, social, and attended groups, he also tried to drink couple of coffee to keep him awake during the daytime. Educate patient not to much coffee late in the afternoon. He is medication compliant. Denies side effects. Talk to social worker delinquency prevention this morning that he will do [employer] [facility] application on Monday. Denies safety concerns. Have poor insight of mental health. Medication Compliance: Yes Side effects from medications: No Attending Groups: Intermittent Review of Systems Acute medical concerns: No Medical Review of Systems: unchanged Review of Systems Review of Systems Constitutional: Denies fatigue and Denies fever(s) Cardiovascular: Denies chest pain and Denies dyspnea Respiratory: Denies dyspnea Gastrointestinal: Denies abdominal pain Psychiatric: denies suicidal ideation Endocrine: Denies fatigue Yes all other systems are reviewed and are negative Mental Status Exam Mental Status Exam Narrative: He is out on the unit, was alert and awake,, actively engaged in full lengthy conversation., denies SI/SIB/HI/AVH, more logical but still do not believe he has mental health issues. Denies safety concerns. No SI//SIB/HI/AVH expressed.Visible, social, no irritable mood. calm, pleasant and cooperative. Diagnostics Vital Signs (24Hr): Vital Signs - 24 hr 06/26/25 20:00 06/27/25 07:49 Temperature 98.4 F Pulse Rate 88 Respiratory Rate 16 20 Blood Pressure 120/57 L Pulse Oximetry 100 Oxygen Delivery Method Room Air BMI result Body Mass Index 24.2 Labs 06/25/25 08:02 06/20/25 20:35 Medications Medications Current Medications Acetaminophen (Acetaminophen 325 Mg Tablet) 650 mg PO Q4H PRN PRN Reason: Pain, Mild (Pain Scale 1-3) Al Hydroxide/Mg Hydroxide (Magnesium Hydrox/Alum Hydrox 30 Ml Oral.Susp) 30 ml PO Q6H PRN PRN Reason: Heart burn Benzocaine (Benzocaine 20 % Oral Gel 14 Gm Tube) 1 appl MUCOUS MEM QID PRN; Protocol PRN Reason: Mouth Sore Pain Last Admin: 04/26/25 18:33 Dose: 1 appl Diazepam (Diazepam 10 Mg/2 Ml Cartridge) 10 mg IM BID PRN PRN Reason: refusal of lithium, per everett Last Admin: 04/11/25 09:56 Dose: 10 mg [place] Carbonate ([place] Carbonate Er 300 Mg Tablet.Er) 600 mg PO DAILY [facility] Last Admin: 06/27/25 08:58 Dose: 600 mg [place] Carbonate ([place] Carbonate Er 450 Mg Tablet.Er) 900 mg PO DAILY@2300 [facility] Last Admin: 06/26/25 23:56 Dose: 900 mg Magnesium Hydroxide (Milk Of Magnesia 30 Ml Oral.Susp) 30 ml PO DAILY PRN PRN Reason: Constipation Methimazole (Methimazole 10 Mg Tablet) 10 mg PO DAILY [facility] Last Admin: 06/27/25 08:58 Dose: 10 mg Nicotine (Nicotine 21 Mg Patch.Td24) 21 mg TRANSDERMA DAILY PRN PRN Reason: nicotine cravings Last Admin: 04/12/25 17:06 Dose: 21 mg Nicotine Polacrilex (Nicotine Polacrilex Lozenge 2 Mg Lozenge) 2 mg BUCCAL Q1H PRN PRN Reason: Nicotine Cravings Last Admin: 04/30/25 08:49 Dose: 2 mg Patient Own Medication Excedrin 250/250/65mg 2 each PO Q8H PRN PRN Reason: Migraine Headache Last Admin: 04/18/25 18:03 Dose: 2 each Olanzapine (Olanzapine 10 Mg Vial) 10 mg IM DAILY PRN PRN Reason: if refuse Invega PO Quetiapine Fumarate (Quetiapine Fumarate 100 Mg Tablet) 100 mg PO BEDTIME PRN PRN Reason: insomnia Quetiapine Fumarate (Quetiapine Fumarate 50 Mg Tablet) 50 mg PO BID PRN PRN Reason: agitation Allergies Allergies Allergy/AdvReac Type Severity Reaction Status Date / Time No Known Allergies Allergy Verified 03/26/25 14:24 Assessment & Plan Assessment & Plan (1) Graves disease: Status: Acute Code(s): E05.00 - Thyrotoxicosis with diffuse goiter without thyrotoxic crisis or storm Assessment and Plan: Hyperthyroidism/Graves disease. He will need follow up with endocrinology as an outpatient He will also need a primary care doctor referral as an outpatient Discussed with Dr. Bejarano, patient will need free T4 weekly Decrease Methimazole to 15 mgs daily for three days and then 10 mgs daily- discussed with patient he is aware of plan and rationale. TSH and free T4 every 4 weeks. No need to draw thyroid stimulation immunology or TSH receptor AB (2) Dental abscess: Status: Acute Code(s): K04.7 - Periapical abscess without sinus Assessment and Plan: Carious tooth/dental infection Recently treated with PEN VK 500 mg q.6 hours for 7 days Patient will need follow up with dentist on discharge for tooth extraction Motrin helping pain. (3) Becca: Status: Acute Code(s): F30.9 - Manic episode, unspecified Plan 03/26: offer lithium and seroquel for becca. continue methimazole and beta joanne for [place] [facility] [place] trend TFTs. 12b. 03/27: taking methimazole and beta joanne. refused HS meds last night, took morning meds today. continue to encourage medication compliance. 03/28: intermittently taking meds. wants all meds in morning. pressured, manic, paranoid delusions. encouraged to take lithium but states he will not. all meds ordered for morning. 03/29: Keeping to self. no groups. observed laying in bed listening to music on unit headphones. pleasant. Pt reports feeling good today and sleeping well. declined lithium and zyprexa. denies SI/HI/VH/AH. continue current tx plan. 03/30:Irritable. upset he was unable to use his personal hygiene products. Per nursing, pt threatened staff and squeezed tooth paste throughout unit hallway to show his frustration. Pt was able to calm down after speaking with security. declined medications. 03/31: Keeping to self. laying in bed listening to music. refused medications. calm today. Patient reports feeling great ; pt stated, nothing is wrong with me. I'm waiting so I can leave tomorrow. I'm hoping for the best . denies SI/HI/VH/AH. per nursing, slept 6 hours. Continue current tx plan. 04/01: variably calm on the unit versus highly agitated. paranoid delusions, irritability, lability continue. seems to believe MD has met him prior to the present hospitalization and is stalking him. believes brother behind conspiracy to have him psychiatrically hospitalized. has been refusing all medications, including for hyperthyroidism. informed he would be filed on. filed. continue to offer medications. 04/02: continues agitated, belittling, verbally aggressive, refusing all medications including for hyperthyroidism. continue to offer medication. 04/03: paranoid there is a conspiracy to hospitalize him. threatening to stick a stick in staff once he is released by immunochemist. insists his hyperthyroidism was cured at [facility]. asserts there is NOTHING wrong with him. continue to offer medication. 04/04: irritable, rejecting. verbally abuses MD and sends him away: see you on monday [in court]. continue to offer medication for thyroid condition and mental illness. 04/05 continue tx. suspicious and guarded, accusatory, verbal threats to hurt staff and peers 04/06 intrusive, posturing towards staff and peer who he thinks is not real and is an impostor, continues to make verbal threats to harm him but thinks that because he is not real he may not experience any pain. 04/07: threatening statements and behaviors of yesterday noted. pt sleeping this morning, dismissive of MD. 04/08: asleep days. committed and meds ordered by court. 04/09: on being informed of court order and MD insisting on meds, pt escalated to hurling food item in container against wall at high speed and saying he wished he could do the same to MD's head. pt eventually took court ordered meds PO. sensodyne and excedrin not available in pharmacy (pt requesting them). 04/10: continue tx. Pt accepting medication today. 04/11: Keeping to self. Lying in bed most of morning. Declined to meet with T/W. Pt stated, I'm fine. I don't need anything . Listening to headphones in room. Declined court ordered PO medications; received IM medications. Refused vital signs.continue tx plan. 04/12: got IMs yesterday, took PO this morning. sleepy, no concerns or complaints. 04/13: taking PO meds again. slept 7 hours. sleepy again mid morning refusing interview. continue current mgmt. 04/14: sleeping, rousable. denies being sedated or tired, says he's just bored. no questions or complaints. informed of need to check labs. check lithium level and thyroid labs tonight. 04/15: refusing labs. delusional re his brother harming him. verbally abusive toward MD. spat in floor. happy with improvement in proptosis. 04/16: Lying in bed. Calm. cooperative. guarded. Pt reports feeling tired this morning d/t poor sleep last night. Pt stated, I don't need anything. I didn't sleep well so I'm trying to catch up . denies any issues at this time. denies SI/HI/VH/AH. Continue current tx plan. 04/17: more calm today, less explosive. continue current mgmt. 04/18: continues more calm. tolerating moments of frustration without verbally attacking MD. slept only 2 hours overnight, however. continue current mgmt. 04/19 continues to push boundaries and limits with staff mike around cell phone- 04/20 - aggressive with staff and unpredictable- threw water pitcher at staff behind desk/-when seen by provider passive in bed-denying all compaints/sys- no insight 04/21: appears as per last week. more difficult behaviors around cell phone use, did throw pitcher of water at RN monday over phone use and was restrained. continue current mgmt. 04/22: continues to have conflict around cell phone use. consolidate zyprexa at HS to decrease daytime sedation. 1:1 allegra shift until peer he is accusing of not being a real patient and appears to be targeting discharges tomorrow. 04/23: lithium 0.6 on 600 BID. sleeping better, remains delusional (telling SW who is marginally younger than him that she could be his daughter). just changed zyprexa dosing as of last night. continue current regimen and observe for continued stabilization. T/C slight increase in lithium dosing. 04/24: Laying in bed. guarded. calm. did not want to get out of bed to meet with T/W. Pt reports feeling great today but declined to go into detail. listening to music on unit headphones. Pt stated, I'm fine. I don't need anything . denies any issues at this time. denies SI/HI/VH/AH. Continue current tx plan. 04/25: Laying in bed. keeping to self. calm. paranoid. Discussed incident that occurred with staff last evening. Pt stated, the counselor made up a lie yesterday. I said she looks like my ex-girlfriend. I know they are related. They want to make up a lie to irritate me. They are trying to talk to me so they can use recording devices and make me look some kind of way . listening to music on unit headphones. denies SI/HI/VH/AH. Continue current tx plan. 04/26: Continue current regimen and plans. Increase Zyprexa 20 mg q.h.s. fresh air break withheld 04/27: Continue current regimen and plans 04/28: somewhat less irritable and agitated than last week. however, over the weekend was claiming he was the father of a footballer on TV and also that a staff member is a twin of his ex-GF (and he pushed staff member). TFTs improving. continue current mgmt. 04/29: no change in presentation. continue current mgmt. 04/30: no irritable edge today. calm, pleasant. engaging in small talk. reality testing not pressed. continue current mgmt for now. 05/01: no change in presentation. continue current mgmt. 05/02: BPs coming down, DC beta joanne as pt has been refusing anyway. remains not antagonistic toward MD. using phone appropriately. continue current mgmt otherwise. 05/03 continue 05/04: remains delusional, irritable/labile when delusional system confronted. declines to sign TOMMY for [facility] records. continue current mgmt. 05/06: declining to meet with MD, but does meet with medical student. remains upset about yesterday's confrontation re his delusional system. 05/07: Active on unit. keeping to self. pacing unit hallway while listening to unit headphones. medication compliant. patient reports feeling good ; pt stated, I'm just waiting to leave here. I want to return to my life and do things like go grocery shopping . denies SI/HI/VH/AH. Continue current tx plan. 05/08: stable presentation, delusions not being brought to the surface daily. remains affectively improved from admission. continue current mgmt. 05/09: calm, pleasant. no questions or complaints. continue current mgmt. 05/10: no change in presentation. due to lack of improvement in dental infection Sx, DC PCN and start augmentin. 05/11: no change in presentation. continue current mgmt. 05/12: as for yesterday. dental pain improving a bit. 05/13: expressed to medical student that his brother poisoned him, causing his thyroid disease. no change in presentation. continue current mgmt. 05/14: Pacing unit hallway. keeping to self. patient reports feeling good today; denies any issues at this time. denies SI/HI/VH/AH. per nursing, slept 5 hours. Continue current tx plan. 05/15: slept 6 hours. otherwise isolative, difficult to engage. continue current mgmt. 05/16: slept 7 hours. as for yesterday otherwise. 05/17/25: Slept well, no issue with appetite, skinny and pretty tall. Compliant with medication. No side effects Calm and pleasant upon approach. Some what paranoid. Tangential, however denies other safety concerns. Questions if he is discharging soon. He is on antibiotic for 7 days for mouth pain/tooth pain. We will finish the 7 course up in antibiotic after tonight dose. Then discontinue. 05/18/25: Slept for 5 hours plus hours this morning. In bed most of the shift, no behavior issues. Denies other safety concerns. 05/19: in bed days, up eves. no change in presentation. continue current mgmt. 05/20: no change in presentation. check labs. 05/21: lithium low, TFTs mixed and not all back. increase lithium from 600 BID to 600/900. trend BUN/Cr, with slight elevation. otherwise continue current mgmt. 05/22: no change in presentation. continue current mgmt. 05/23: does not deny someone stole his sperm and impregnated his landlord's child with it. irritable. c/o dental pain, antibx restarted. otherwise continue current mgmt. 05/14: no change in mgt 05/25: more isolative today; no change in mgt 05/26: decreases in methimazole noted. continue psych regimen as is. pt refused to interact with MD today. 05/27: i'm sleeping. no change in presentation. labs tonight. 05/28: no change in behavior. lithium 0.66, BUN stable. continue current mgmt. 05/29: irritable. continue current mgmt. 05/30: no longer in single room. still not engaging, sleeping days. continue current mgmt. 05/31:laying in bed. declined to meet with T/W. pt stated, I want to sleep. I didn't sleep enough . Pt encouraged to reach out to staff if he needs anything. Continue current tx plan. 06/01: Similar to yesterday. laying in bed. Irritable. declined to meet with T/W and pulled bed sheets over head. pt stated, I don't want to talk. I want to sleep . difficult to engage. Continue current tx plan. 06/02: Similar to yesterday. laying in bed. Irritable. declined to meet with T/W. Observed getting drink from kitchen; T/W approached pt and asked if they could speak. patient declined to acknowledge T/W and walked past. Continue current tx plan. 06/03: no change in behavior. continue tx plan. 06/04/25: Passive engaged in the assessment, in bed mostly sleeping this morning which could be interfere with his nighttime. Cover body under the blanket Slept for 4-5 hours last night. Was medication compliant, attended no groups, isolative to self in room. No SI/SIB/HI/AVH expressed. 06/05: continue tx plan. 06/06: reports feeling fine ; continues guarded. difficult to engage. declining to meet with T/W. continue tx plan. 06/07/25: Slept for 4 hours at night, but has been sleeping most of the day yesterday as well. Spent majority of the shift in bed, was medication compliant. Passive engaged in the conversation. He said he will try to change the sleeping pattern so that he can be awake more during the daytime. Appear to be sedated in the morning. No safety behavior. 06/08/25: Slept for 3-4 hours last night, compliant with medications. Denies side effects, denies other safety concerns. Continued to encourage patient to up and down more than on the unit he spent most of the day sleeping. He is pleasant upon approach. No other behavior issues. Denied voices/hallucinations. Suicide thoughts or homicidal thoughts. 06/09: sleeping, minimally rousable. denies problems. continue current mgmt. 06/10: sleeping all day, up most of the night. minimally rousable. denies problems. continue current mgmt. per JAMAICA Arrington: Jean said when he leaves he can return to [facility], [place]. he was living with a lady there and can go back. He plans to get a job to pay off his debt. He said he owes money because they sent him back here due to losing his passport and he owes them money for the temporary emergency passport and the flight back to the . so his main focus is to get a job. he said he will try things here first and if it doesn't work out he plans to return to [place]. 06/11/25: Passively engaged in conversation while in bed sleeping/resting. Able to answer question appropriately, but seems to be minimized. Denies SI/SIB/HI/AVH. He slept 5 hours last night, spent most of the day in bed sleeping. Attempted to no groups, observed out to the afternoon in the subramanian near the nurse station. No change in presentation. Encourage groups,up and engaged in groups. 06/12: not engaging. no complaints or questions re med changes. cross-taper zyprexa in favor of invega, give MONTERO invega. tonight, decrease zyprexa to 15 mg and start invega 3 mg. otherwise continue current mgmt. 06/13: continues avoidant and disengaged. denies side effects from med change last night. informed cross-titration will advance tonight. decrease zyprexa to 10 mg tonight, increase paliperidone to 6 mg. plan to continue by 5 mg zyprexa and 3 mg paliperidone increments every several days as tolerated until zyprexa DCed and paliperidone at 12 mg QHS. once it is established pt is tolerating PO Paliperidone, invega sustenna to be administered. 06/14: Continue current regimen and plans 06/15: Continue current plans and regimen 06/16: irritable re neuroleptic change. denies side effects or problems with it, however. minimally engageable. increase invega to 9 QHS and decrfease zyprexa to 5 QHS. 06/17/25: Continued to be irritable regarding medication change/titration. However engaged in conversation, hyper verbal, paranoid, reports medication slow his thoughts down and he does not not like it. Poor insight and poor judgment. He thinks he only need lithium, not other medications. Remind patient to continue doing the sleep pattern changing. However his in bed mostly this morning. Slept for 4-5 hours last night. 06/18/25: Slept for 5 hours last night as he continues sleeping during daytime. Compliant with meds, did not c/o side effects.Passingly engaging in assessment. Denies safety concerns. Tolerate the tritation well. Will increase Inveag up to max of 12 tomorrow and Discontinue Olanzepine at HS. Continue to encourage up and out on day so he can sleep better at HS. 06/19/25: Patient slept for 5.5 hours last night, was medication compliant, mostly in his room yesterday but seen more often in the evening. Patient is awake in his room, listen to music, his morning tray was taken away and clean the area. He is very pleasant to talk to today, reports he feels good, denies side effects from medications, denies any safety concerns. Denies feeling sedation, denies anxiety/depression. He is receptive with the plan of medication over the weekends and next week, happy to hear about the medication plan. He also agree with the MONTERO Invega Sustenna on Monday. Encourage him to go out and attended to groups, he said that he will. Reported that he was out for groups a couple of times last week. Discontinue Haldol p.r.n.. Discontinue scheduled Zyprexa 5 mg at bedtime. Only on 10 Zyprexa at g IM daily p.r.n. as backup orders if refused Invega. Invega 12 mg at bedtime. Plan to monitor over the weekends and will give long- acting injection on Monday if tolerate with the p.o. well Reduce Seroquel 200 mg p.r.n. at bedtime to 100 p.r.n. at bedtime for insomnia. Seroquel 50 mg b.i.d. p.r.n. for agitation. Discontinue Motrin. Patient on lithium. Labs were for MondayJune 20: CMP, TSH with free T4. 06/20/25: In bed most of the day, was compliant with medication, however refused labs work. Re- scheduled for Monday. Continue with Invega 12 mg at bedtime. We will reassess and offer long-acting injection on Monday. Continue to encourage patient to get up and go to some groups. No safety concerns expressed. Minimal peer and staff interaction. 06/21: no change in presentation. start MONTERO monday. no s/e from invega. otherwise continue current mgmt. 06/22: stable. continue current mgmt. 06/23/25: More awake and alert. Review with patient regarding policy for his phone use BID 30min each time, patient is educated on compliant with policy. He asks for more 5-10 min extra headphone use at night on the weekends after 2300. Once again, redirected for unit rules. He agrees with MONTERO which is scheduled today. Discontinue Invega PO Invega Sustenna 234mg IM once. Will monitor for possible side effects and sedation. Will offer 156mg after 1 week. If mentaly stable with 156mg, will maintain at this dose, if not will offer 234mg Monthly. 06/24/25: Slept for 5 hours last night, but also went to bed around 7 tonight p.m. last night per his report. He also attended to groups in the afternoon yesterday. Compliant with medications. No side effects from Invega Sustenna. He is engaged in full conversation today why he is in bed, denies safety concerns. Observe he is on the unit, social with peers and staff in longer period of time. Appeared to be happy. He plans to take shower today. Reported that he was up early but he does not feel hungry in the morning. He is making progress, not too sedated during daytime since switching his medication. Appears to do well so far with Invega Sustenna. 06/25/25: Patient slept for 4 hours last night, however he reported was napping in the afternoon for couple hours which affect his sleeping pattern at night. Educate patient to not napping late in the evening. He is receptive. Compliant with medications, no side effects. He reports his did not shower yesterday but he will today. He is awake in his room not sleeping, engage in full conversation, no delusional or paranoid statements make. He is visible at times. Continued to improve in mood, engaging in other activities on the unit. Denies other safety concerns. Denies hallucinations. No irritability mood, not sedated during day time compared to when he was taking olanzapine. We will schedule Invega Sustenna 156 next Monday. Work with social worker delinquency prevention to see where he will return to. He probably needs [facility] to manage medication. 06/26/25: He slept for 5 hours, compliant with medications. Denies side effects. He self-reported that he went to bed last night and was able to fall asleep by 01:00 and able to stay asleep whole night. Denies safety concerns. I spoke with him in length today regarding aftercare. He thinks he will go to the hospital in [place] to ask them regarding his heart condition. He thinks people was lying to get him to the hospital as he does not have mental health illnesses. He believes that he has been exactly the same he was seen he was a little, and at he able to remember everything in the past. He also reports that he used to use [employer]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
--- NOTE | 2025-06-28 07:53 | P.PNPSI_ITS ---
Subjective Subjective Date of Service: 06/28/25 Reason For Visit: psychotic disorder Subjective Notes: Section 8 Interim History: No management issues. Slept 5 hours last night. Got long-acting injectable with week and getting 2nd dose after the weekend. In the milieu. Patient reports things are going overall okay. Happy with current treatment. Denies paranoia, hallucinations depression or SI. Looking forward to disposition planning and returning to the [facility]. Insight regarding medications does appear slightly limited. Looking forward to [facility] application and support services. Medication Compliance: Yes Side effects from medications: No Attending Groups: Intermittent Review of Systems Acute medical concerns: No Mental Status Exam Mental Status Exam Narrative: He is out on the unit, was alert and awake,, actively engaged in full lengthy conversation., denies SI/SIB/HI/AVH, more logical but still do not believe he has mental health issues. Denies safety concerns. No SI//SIB/HI/AVH expressed.Visible, social, no irritable mood. calm, pleasant and cooperative. Diagnostics Vital Signs (24Hr): BMI result Body Mass Index 24.2 Labs 06/25/25 08:02 06/20/25 20:35 Medications Medications Current Medications Acetaminophen (Acetaminophen 325 Mg Tablet) 650 mg PO Q4H PRN PRN Reason: Pain, Mild (Pain Scale 1-3) Al Hydroxide/Mg Hydroxide (Magnesium Hydrox/Alum Hydrox 30 Ml Oral.Susp) 30 ml PO Q6H PRN PRN Reason: Heart burn Benzocaine (Benzocaine 20 % Oral Gel 14 Gm Tube) 1 appl MUCOUS MEM QID PRN; Protocol PRN Reason: Mouth Sore Pain Last Admin: 04/26/25 18:33 Dose: 1 appl Diazepam (Diazepam 10 Mg/2 Ml Cartridge) 10 mg IM BID PRN PRN Reason: refusal of lithium, mary floyd Last Admin: 04/11/25 09:56 Dose: 10 mg [place] Carbonate ([place] Carbonate Er 300 Mg Tablet.Er) 600 mg PO DAILY [facility] Last Admin: 06/27/25 08:58 Dose: 600 mg [place] Carbonate ([place] Carbonate Er 450 Mg Tablet.Er) 900 mg PO DAILY@2300 [facility] Last Admin: 06/28/25 00:14 Dose: 900 mg Magnesium Hydroxide (Milk Of Magnesia 30 Ml Oral.Susp) 30 ml PO DAILY PRN PRN Reason: Constipation Methimazole (Methimazole 10 Mg Tablet) 10 mg PO DAILY [facility] Last Admin: 06/27/25 08:58 Dose: 10 mg Nicotine (Nicotine 21 Mg Patch.Td24) 21 mg TRANSDERMA DAILY PRN PRN Reason: nicotine cravings Last Admin: 04/12/25 17:06 Dose: 21 mg Nicotine Polacrilex (Nicotine Polacrilex Lozenge 2 Mg Lozenge) 2 mg BUCCAL Q1H PRN PRN Reason: Nicotine Cravings Last Admin: 04/30/25 08:49 Dose: 2 mg Patient Own Medication Excedrin 250/250/65mg 2 each PO Q8H PRN PRN Reason: Migraine Headache Last Admin: 04/18/25 18:03 Dose: 2 each Olanzapine (Olanzapine 10 Mg Vial) 10 mg IM DAILY PRN PRN Reason: if refuse Invega PO Paliperidone Palmitate (Paliperidone Palmitate 156 Mg/Ml Syringe) 156 mg IM ONCE ONE Stop: 06/30/25 10:01 Quetiapine Fumarate (Quetiapine Fumarate 100 Mg Tablet) 100 mg PO BEDTIME PRN PRN Reason: insomnia Quetiapine Fumarate (Quetiapine Fumarate 50 Mg Tablet) 50 mg PO BID PRN PRN Reason: agitation Allergies Allergies Allergy/AdvReac Type Severity Reaction Status Date / Time No Known Allergies Allergy Verified 03/26/25 14:24 Assessment & Plan Assessment & Plan (1) Graves disease: Status: Acute Code(s): E05.00 - Thyrotoxicosis with diffuse goiter without thyrotoxic crisis or storm Assessment and Plan: Hyperthyroidism/Graves disease. He will need follow up with endocrinology as an outpatient He will also need a primary care doctor referral as an outpatient Discussed with Dr. Bejarano, patient will need free T4 weekly Decrease Methimazole to 15 mgs daily for three days and then 10 mgs daily- discussed with patient he is aware of plan and rationale. TSH and free T4 every 4 weeks. No need to draw thyroid stimulation immunology or TSH receptor AB (2) Dental abscess: Status: Acute Code(s): K04.7 - Periapical abscess without sinus Assessment and Plan: Carious tooth/dental infection Recently treated with PEN VK 500 mg q.6 hours for 7 days Patient will need follow up with dentist on discharge for tooth extraction Motrin helping pain. (3) Becca: Status: Acute Code(s): F30.9 - Manic episode, unspecified Plan 03/26: offer lithium and seroquel for becca. continue methimazole and beta joanne for hyperthyroidism as started at [facility]. trend TFTs. 12b. 03/27: taking methimazole and beta joanne. refused HS meds last night, took morning meds today. continue to encourage medication compliance. 03/28: intermittently taking meds. wants all meds in morning. pressured, manic, paranoid delusions. encouraged to take lithium but states he will not. all meds ordered for morning. 03/29: Keeping to self. no groups. observed laying in bed listening to music on unit headphones. pleasant. Pt reports feeling good today and sleeping well. declined lithium and zyprexa. denies SI/HI/VH/AH. continue current tx plan. 03/30:Irritable. upset he was unable to use his personal hygiene products. Per nursing, pt threatened staff and squeezed tooth paste throughout unit hallway to show his frustration. Pt was able to calm down after speaking with security. declined medications. 03/31: Keeping to self. laying in bed listening to music. refused medications. calm today. Patient reports feeling great ; pt stated, nothing is wrong with me. I'm waiting so I can leave tomorrow. I'm hoping for the best . denies SI/HI/VH/AH. per nursing, slept 6 hours. Continue current tx plan. 04/01: variably calm on the unit versus highly agitated. paranoid delusions, irritability, lability continue. seems to believe MD has met him prior to the present hospitalization and is stalking him. believes brother behind conspiracy to have him psychiatrically hospitalized. has been refusing all medications, including for hyperthyroidism. informed he would be filed on. filed. continue to offer medications. 04/02: continues agitated, belittling, verbally aggressive, refusing all medications including for hyperthyroidism. continue to offer medication. 04/03: paranoid there is a conspiracy to hospitalize him. threatening to stick a stick in staff once he is released by french cord binder. insists his hyperthyroidism was cured at [facility]. asserts there is NOTHING wrong with him. continue to offer medication. 04/04: irritable, rejecting. verbally abuses MD and sends him away: see you on monday [in court]. continue to offer medication for thyroid condition and mental illness. 04/05 continue tx. suspicious and guarded, accusatory, verbal threats to hurt staff and peers 04/06 intrusive, posturing towards staff and peer who he thinks is not real and is an impostor, continues to make verbal threats to harm him but thinks that because he is not real he may not experience any pain. 04/07: threatening statements and behaviors of yesterday noted. pt sleeping this morning, dismissive of MD. 04/08: asleep days. committed and meds ordered by court. 04/09: on being informed of court order and MD insisting on meds, pt escalated to hurling food item in container against wall at high speed and saying he wished he could do the same to MD's head. pt eventually took court ordered meds PO. sensodyne and excedrin not available in pharmacy (pt requesting them). 04/10: continue tx. Pt accepting medication today. 04/11: Keeping to self. Lying in bed most of morning. Declined to meet with T/W. Pt stated, I'm fine. I don't need anything . Listening to headphones in room. Declined court ordered PO medications; received IM medications. Refused vital signs.continue tx plan. 04/12: got IMs yesterday, took PO this morning. sleepy, no concerns or complaints. 04/13: taking PO meds again. slept 7 hours. sleepy again mid morning refusing interview. continue current mgmt. 04/14: sleeping, rousable. denies being sedated or tired, says he's just bored. no questions or complaints. informed of need to check labs. check lithium level and thyroid labs tonight. 04/15: refusing labs. delusional re his brother harming him. verbally abusive toward MD. spat in floor. happy with improvement in proptosis. 04/16: Lying in bed. Calm. cooperative. guarded. Pt reports feeling tired this morning d/t poor sleep last night. Pt stated, I don't need anything. I didn't sleep well so I'm trying to catch up . denies any issues at this time. denies SI/HI/VH/AH. Continue current tx plan. 04/17: more calm today, less explosive. continue current mgmt. 04/18: continues more calm. tolerating moments of frustration without verbally attacking MD. slept only 2 hours overnight, however. continue current mgmt. 04/19 continues to push boundaries and limits with staff mike around cell phone- 04/20 - aggressive with staff and unpredictable- threw water pitcher at staff behind desk/-when seen by provider passive in bed-denying all compaints/sys- no insight 04/21: appears as per last week. more difficult behaviors around cell phone use, did throw pitcher of water at RN monday over phone use and was restrained. continue current mgmt. 04/22: continues to have conflict around cell phone use. consolidate zyprexa at HS to decrease daytime sedation. 1:1 allegra shift until peer he is accusing of not being a real patient and appears to be targeting discharges tomorrow. 04/23: lithium 0.6 on 600 BID. sleeping better, remains delusional (telling SW who is marginally younger than him that she could be his daughter). just changed zyprexa dosing as of last night. continue current regimen and observe for continued stabilization. T/C slight increase in lithium dosing. 04/24: Laying in bed. guarded. calm. did not want to get out of bed to meet with T/W. Pt reports feeling great today but declined to go into detail. listening to music on unit headphones. Pt stated, I'm fine. I don't need anything . denies any issues at this time. denies SI/HI/VH/AH. Continue current tx plan. 04/25: Laying in bed. keeping to self. calm. paranoid. Discussed incident that occurred with staff last evening. Pt stated, the counselor made up a lie yesterday. I said she looks like my ex-girlfriend. I know they are related. They want to make up a lie to irritate me. They are trying to talk to me so they can use recording devices and make me look some kind of way . listening to music on unit headphones. denies SI/HI/VH/AH. Continue current tx plan. 04/26: Continue current regimen and plans. Increase Zyprexa 20 mg q.h.s. fresh air break withheld 04/27: Continue current regimen and plans 04/28: somewhat less irritable and agitated than last week. however, over the weekend was claiming he was the father of a footballer on TV and also that a staff member is a twin of his ex-GF (and he pushed staff member). TFTs improving. continue current mgmt. 04/29: no change in presentation. continue current mgmt. 04/30: no irritable edge today. calm, pleasant. engaging in small talk. reality testing not pressed. continue current mgmt for now. 05/01: no change in presentation. continue current mgmt. 05/02: BPs coming down, DC beta joanne as pt has been refusing anyway. remains not antagonistic toward MD. using phone appropriately. continue current mgmt otherwise. 05/03 continue 05/04: remains delusional, irritable/labile when delusional system confronted. declines to sign TOMMY for [facility] records. continue current mgmt. 05/06: declining to meet with MD, but does meet with medical student. remains upset about yesterday's confrontation re his delusional system. 05/07: Active on unit. keeping to self. pacing unit hallway while listening to unit headphones. medication compliant. patient reports feeling good ; pt stated, I'm just waiting to leave here. I want to return to my life and do things like go grocery shopping . denies SI/HI/VH/AH. Continue current tx plan. 05/08: stable presentation, delusions not being brought to the surface daily. remains affectively improved from admission. continue current mgmt. 05/09: calm, pleasant. no questions or complaints. continue current mgmt. 05/10: no change in presentation. due to lack of improvement in dental infection Sx, DC PCN and start augmentin. 05/11: no change in presentation. continue current mgmt. 05/12: as for yesterday. dental pain improving a bit. 05/13: expressed to medical student that his brother poisoned him, causing his thyroid disease. no change in presentation. continue current mgmt. 05/14: Pacing unit hallway. keeping to self. patient reports feeling good today; denies any issues at this time. denies SI/HI/VH/AH. per nursing, slept 5 hours. Continue current tx plan. 05/15: slept 6 hours. otherwise isolative, difficult to engage. continue current mgmt. 05/16: slept 7 hours. as for yesterday otherwise. 05/17/25: Slept well, no issue with appetite, skinny and pretty tall. Compliant with medication. No side effects Calm and pleasant upon approach. Some what paranoid. Tangential, however denies other safety concerns. Questions if he is discharging soon. He is on antibiotic for 7 days for mouth pain/tooth pain. We will finish the 7 course up in antibiotic after tonight dose. Then discontinue. 05/18/25: Slept for 5 hours plus hours this morning. In bed most of the shift, no behavior issues. Denies other safety concerns. 05/19: in bed days, up eves. no change in presentation. continue current mgmt. 05/20: no change in presentation. check labs. 05/21: lithium low, TFTs mixed and not all back. increase lithium from 600 BID to 600/900. trend BUN/Cr, with slight elevation. otherwise continue current mgmt. 05/22: no change in presentation. continue current mgmt. 05/23: does not deny someone stole his sperm and impregnated his landlord's child with it. irritable. c/o dental pain, antibx restarted. otherwise continue current mgmt. 05/14: no change in mgt 05/25: more isolative today; no change in mgt 05/26: decreases in methimazole noted. continue psych regimen as is. pt refused to interact with MD today. 05/27: i'm sleeping. no change in presentation. labs tonight. 05/28: no change in behavior. lithium 0.66, BUN stable. continue current mgmt. 05/29: irritable. continue current mgmt. 05/30: no longer in single room. still not engaging, sleeping days. continue current mgmt. 05/31:laying in bed. declined to meet with T/W. pt stated, I want to sleep. I didn't sleep enough . Pt encouraged to reach out to staff if he needs anything. Continue current tx plan. 06/01: Similar to yesterday. laying in bed. Irritable. declined to meet with T/W and pulled bed sheets over head. pt stated, I don't want to talk. I want to sleep . difficult to engage. Continue current tx plan. 06/02: Similar to yesterday. laying in bed. Irritable. declined to meet with T/W. Observed getting drink from kitchen; T/W approached pt and asked if they could speak. patient declined to acknowledge T/W and walked past. Continue current tx plan. 06/03: no change in behavior. continue tx plan. 06/04/25: Passive engaged in the assessment, in bed mostly sleeping this morning which could be interfere with his nighttime. Cover body under the blanket Slept for 4-5 hours last night. Was medication compliant, attended no groups, isolative to self in room. No SI/SIB/HI/AVH expressed. 06/05: continue tx plan. 06/06: reports feeling fine ; continues guarded. difficult to engage. declining to meet with T/W. continue tx plan. 06/07/25: Slept for 4 hours at night, but has been sleeping most of the day yesterday as well. Spent majority of the shift in bed, was medication compliant. Passive engaged in the conversation. He said he will try to change the sleeping pattern so that he can be awake more during the daytime. Appear to be sedated in the morning. No safety behavior. 06/08/25: Slept for 3-4 hours last night, compliant with medications. Denies side effects, denies other safety concerns. Continued to encourage patient to up and down more than on the unit he spent most of the day sleeping. He is pleasant upon approach. No other behavior issues. Denied voices/hallucinations. Suicide thoughts or homicidal thoughts. 06/09: sleeping, minimally rousable. denies problems. continue current mgmt. 06/10: sleeping all day, up most of the night. minimally rousable. denies problems. continue current mgmt. per JAMAICA Arrington: Jean said when he leaves he can return to [facility]. he was living with a lady there and can go back. He plans to get a job to pay off his debt. He said he owes money because they sent him back here due to losing his passport and he owes them money for the temporary emergency passport and the flight back to the . so his main focus is to get a job. he said he will try things here first and if it doesn't work out he plans to return to [place]. 06/11/25: Passively engaged in conversation while in bed sleeping/resting. Able to answer question appropriately, but seems to be minimized. Denies SI/SIB/HI/AVH. He slept 5 hours last night, spent most of the day in bed sleeping. Attempted to no groups, observed out to the afternoon in the subramanian near the nurse station. No change in presentation. Encourage groups,up and engaged in groups. 06/12: not engaging. no complaints or questions re med changes. cross-taper zyprexa in favor of invega, give MONTERO invega. tonight, decrease zyprexa to 15 mg and start invega 3 mg. otherwise continue current mgmt. 06/13: continues avoidant and disengaged. denies side effects from med change last night. informed cross-titration will advance tonight. decrease zyprexa to 10 mg tonight, increase paliperidone to 6 mg. plan to continue by 5 mg zyprexa and 3 mg paliperidone increments every several days as tolerated until zyprexa DCed and paliperidone at 12 mg QHS. once it is established pt is tolerating PO Paliperidone, invega sustenna to be administered. 06/14: Continue current regimen and plans 06/15: Continue current plans and regimen 06/16: irritable re neuroleptic change. denies side effects or problems with it, however. minimally engageable. increase invega to 9 QHS and decrfease zyprexa to 5 QHS. 06/17/25: Continued to be irritable regarding medication change/titration. However engaged in conversation, hyper verbal, paranoid, reports medication slow his thoughts down and he does not not like it. Poor insight and poor judgment. He thinks he only need lithium, not other medications. Remind patient to continue doing the sleep pattern changing. However his in bed mostly this morning. Slept for 4-5 hours last night. 06/18/25: Slept for 5 hours last night as he continues sleeping during daytime. Compliant with meds, did not c/o side effects.Passingly engaging in assessment. Denies safety concerns. Tolerate the tritation well. Will increase Inveag up to max of 12 tomorrow and Discontinue Olanzepine at HS. Continue to encourage up and out on day so he can sleep better at HS. 06/19/25: Patient slept for 5.5 hours last night, was medication compliant, mostly in his room yesterday but seen more often in the evening. Patient is awake in his room, listen to music, his morning tray was taken away and clean the area. He is very pleasant to talk to today, reports he feels good, denies side effects from medications, denies any safety concerns. Denies feeling sedation, denies anxiety/depression. He is receptive with the plan of medication over the weekends and next week, happy to hear about the medication plan. He also agree with the MONTERO Invega Sustenna on Monday. Encourage him to go out and attended to groups, he said that he will. Reported that he was out for groups a couple of times last week. Discontinue Haldol p.r.n.. Discontinue scheduled Zyprexa 5 mg at bedtime. Only on 10 Zyprexa at g IM daily p.r.n. as backup orders if refused Invega. Invega 12 mg at bedtime. Plan to monitor over the weekends and will give long- acting injection on Monday if tolerate with the p.o. well Reduce Seroquel 200 mg p.r.n. at bedtime to 100 p.r.n. at bedtime for insomnia. Seroquel 50 mg b.i.d. p.r.n. for agitation. Discontinue Motrin. Patient on lithium. Labs were for MondayJune 20: CMP, TSH with free T4. 06/20/25: In bed most of the day, was compliant with medication, however refused labs work. Re- scheduled for Monday. Continue with Invega 12 mg at bedtime. We will reassess and offer long-acting injection on Monday. Continue to encourage patient to get up and go to some groups. No safety concerns expressed. Minimal peer and staff interaction. 06/21: no change in presentation. start MONTERO monday. no s/e from invega. otherwise continue current mgmt. 06/22: stable. continue current mgmt. 06/23/25: More awake and alert. Review with patient regarding policy for his phone use BID 30min each time, patient is educated on compliant with policy. He asks for more 5-10 min extra headphone use at night on the weekends after 2300. Once again, redirected for unit rules. He agrees with MONTERO which is scheduled today. Discontinue Invega PO Invega Sustenna 234mg IM once. Will monitor for possible side effects and sedation. Will offer 156mg after 1 week. If mentaly stable with 156mg, will maintain at this dose, if not will offer 234mg Monthly. 06/24/25: Slept for 5 hours last night, but also went to bed around 7 tonight p.m. last night per his report. He also attended to groups in the afternoon yesterday. Compliant with medications. No side effects from Invega Sustenna. He is engaged in full conversation today why he is in bed, denies safety concerns. Observe he is on the unit, social with peers and staff in longer period of time. Appeared to be happy. He plans to take shower today. Reported that he was up early but he does not feel hungry in the morning. He is making progress, not too sedated during daytime since switching his medication. Appears to do well so far with Invega Sustenna. 06/25/25: Patient slept for 4 hours last night, however he reported was napping in the afternoon for couple hours which affect his sleeping pattern at night. Educate patient to not napping late in the evening. He is receptive. Compliant with medications, no side effects. He reports his did not shower yesterday but he will today. He is awake in his room not sleeping, engage in full conversation, no delusional or paranoid statements make. He is visible at times. Continued to improve in mood, engaging in other activities on the unit. Denies other safety concerns. Denies hallucinations. No irritability mood, not sedated during day time compared to when he was taking olanzapine. We will schedule Invega Sustenna 156 next Monday. Work with child welfare social worker to see where he will return to. He probably needs [facility]NA to manage medication. 06/26/25: He slept for 5 hours, compliant with medications. Denies side effects. He self-reported that he went to bed last night and was able to fall asleep by 01:00 and able to stay asleep whole night. Denies safety concerns. I spoke with him in length today regarding aftercare. He thinks he will go to the hospital in [place] to ask them regarding his heart condition. He thinks people was lying to get him to the hospital as he does not have mental health illnesses. He believes that he has been exactly the same he was seen he was a little, and at he able to remember everything in the past. He also reports that he used to use [employer] [facility] [employer] in [place]. At he does not want [facility] application. I explained to him that in order to be a candidate patient have to be a safe that he has mental health issues, so people can submit the application, and from the [facility] worker will contact him to do assessment if he qualify for any services that they can provide. Patient is receptive application, child welfare social worker was notified. Patient also would like to have services with [facility] in [place]. He showered yesterday morning, did not go to groups yesterday, but he will go to some groups today per his plan for the day, more awake, engaged in conversation, no irritability. However, continued to be poor insight of his illnesses. He does not want to return to his brother I have not talking to him for since 2021. He reported that that his brother told other people that patient was trying to kill his brother with a knife. He had question regarding the Invega Sustenna which is scheduled for next Monday. He does having good memory for whatever we discussed the past couple of days. He plans to continue taking meds as prescribed after discharge. However, with unsafe discharge plan at this current time, I would think he will relapse shortly after discharge if he does not have good support system in community. He has no where to turn, and limited support in community. He does not think MJ will affect his brain functions and mental status. He would potential smoke it when he leaves. 06/27/25: Slept for 6 hours last night which is improving, continue to educate patient not to nap late in the evening so that he can sleep better at night. He still does not want to change medication at bedtime earlier than 2300. Observe he is out on the unit, listen to music, social, and attended groups, he also tried to drink couple of coffee to keep him awake during the daytime. Educate patient not to much coffee late in the afternoon. He is medication compliant. Denies side effects. Talk to child welfare social worker this morning that he will do [employer] application on Monday. Denies safety concerns. Have poor insight of mental health. 06/28/2025: No changes to current plan. Invega Sustenna 156 mg IM scheduled on 06/30 at 10:00 Reason for continued inpatient stay Substantial Risk for: rapid decompensation Time Spent With Patient Time: Total time managing care of this patient today ____ minutes.
[2025-06-28 08:00] VITALS: RESP 16
[2025-06-28 20:00] VITALS: BP 140/75; PULSE 108; RESP 16; TEMP 36.5; O2SAT 100
[2025-06-29 07:15] VITALS: BP 158/71; PULSE 91; RESP 16; TEMP 36.2; O2SAT 100
--- NOTE | 2025-06-29 10:27 | HO.PSYCHPN ---
Subjective Subjective Date of Service: 06/29/25 Reason For Visit: psychotic disorder Interim History: No management issues. In room, listening to music. Things are good . Denies paranoia, hallucinations depression or SI. Looking forward to disposition planning and returning to the [facility] and [facility] application and support services. No med concerns- insight is limited Medication Compliance: Yes Side effects from medications: No Attending Groups: Intermittent Review of Systems Acute medical concerns: No Review of Systems Review of Systems nothing acute Mental Status Exam Mental Status Exam Narrative: Intermittently in milieu, alert and awake, exopthalmos, actively engaged in full lengthy conversation., denies SI/SIB/HI/AVH, more logical but still do not believe he has mental health issues. Denies safety concerns. No SI//SIB/HI/AVH expressed.Visible, social, no irritable mood. calm, pleasant and cooperative. Diagnostics Vital Signs (24Hr): Vital Signs - 24 hr 06/28/25 20:00 06/29/25 07:15 Temperature 97.7 F 97.2 F Pulse Rate 108 H 91 Respiratory Rate 16 16 Blood Pressure 140/75 H 158/71 H Pulse Oximetry 100 100 Oxygen Delivery Method Room Air Room Air BMI result Body Mass Index 24.2 Labs 06/25/25 08:02 06/20/25 20:35 Medications Medications Current Medications Acetaminophen (Acetaminophen 325 Mg Tablet) 650 mg PO Q4H PRN PRN Reason: Pain, Mild (Pain Scale 1-3) Al Hydroxide/Mg Hydroxide (Magnesium Hydrox/Alum Hydrox 30 Ml Oral.Susp) 30 ml PO Q6H PRN PRN Reason: Heart burn Benzocaine (Benzocaine 20 % Oral Gel 14 Gm Tube) 1 appl MUCOUS MEM QID PRN; Protocol PRN Reason: Mouth Sore Pain Last Admin: 04/26/25 18:33 Dose: 1 appl Diazepam (Diazepam 10 Mg/2 Ml Cartridge) 10 mg IM BID PRN PRN Reason: refusal of lithium, mary floyd Last Admin: 04/11/25 09:56 Dose: 10 mg [place] Carbonate ([place] Carbonate Er 300 Mg Tablet.Er) 600 mg PO DAILY [facility] Last Admin: 06/29/25 08:54 Dose: 600 mg [place] Carbonate ([place] Carbonate Er 450 Mg Tablet.Er) 900 mg PO DAILY@2300 [facility] Last Admin: 06/28/25 23:47 Dose: 900 mg Magnesium Hydroxide (Milk Of Magnesia 30 Ml Oral.Susp) 30 ml PO DAILY PRN PRN Reason: Constipation Methimazole (Methimazole 10 Mg Tablet) 10 mg PO DAILY [facility] Last Admin: 06/29/25 08:54 Dose: 10 mg Nicotine (Nicotine 21 Mg Patch.Td24) 21 mg TRANSDERMA DAILY PRN PRN Reason: nicotine cravings Last Admin: 04/12/25 17:06 Dose: 21 mg Nicotine Polacrilex (Nicotine Polacrilex Lozenge 2 Mg Lozenge) 2 mg BUCCAL Q1H PRN PRN Reason: Nicotine Cravings Last Admin: 04/30/25 08:49 Dose: 2 mg Patient Own Medication Excedrin 250/250/65mg 2 each PO Q8H PRN PRN Reason: Migraine Headache Last Admin: 04/18/25 18:03 Dose: 2 each Olanzapine (Olanzapine 10 Mg Vial) 10 mg IM DAILY PRN PRN Reason: if refuse Invega PO Paliperidone Palmitate (Paliperidone Palmitate 156 Mg/Ml Syringe) 156 mg IM ONCE ONE Stop: 06/30/25 10:01 Quetiapine Fumarate (Quetiapine Fumarate 100 Mg Tablet) 100 mg PO BEDTIME PRN PRN Reason: insomnia Quetiapine Fumarate (Quetiapine Fumarate 50 Mg Tablet) 50 mg PO BID PRN PRN Reason: agitation Allergies Allergies Allergy/AdvReac Type Severity Reaction Status Date / Time No Known Allergies Allergy Verified 03/26/25 14:24 Assessment & Plan Assessment & Plan (1) Graves disease: Status: Acute Code(s): E05.00 - Thyrotoxicosis with diffuse goiter without thyrotoxic crisis or storm Assessment and Plan: Hyperthyroidism/Graves disease. He will need follow up with endocrinology as an outpatient He will also need a primary care doctor referral as an outpatient Discussed with Dr. Bejarano, patient will need free T4 weekly Decrease Methimazole to 15 mgs daily for three days and then 10 mgs daily- discussed with patient he is aware of plan and rationale. TSH and free T4 every 4 weeks. No need to draw thyroid stimulation immunology or TSH receptor AB (2) Dental abscess: Status: Acute Code(s): K04.7 - Periapical abscess without sinus Assessment and Plan: Carious tooth/dental infection Recently treated with PEN VK 500 mg q.6 hours for 7 days Patient will need follow up with dentist on discharge for tooth extraction Motrin helping pain. (3) Becca: Status: Acute Code(s): F30.9 - Manic episode, unspecified Plan 03/26: offer lithium and seroquel for becca. continue methimazole and beta joanne for hyperthyroidism as started at [facility]. trend TFTs. 12b. 03/27: taking methimazole and beta joanne. refused HS meds last night, took morning meds today. continue to encourage medication compliance. 03/28: intermittently taking meds. wants all meds in morning. pressured, manic, paranoid delusions. encouraged to take lithium but states he will not. all meds ordered for morning. 03/29: Keeping to self. no groups. observed laying in bed listening to music on unit headphones. pleasant. Pt reports feeling good today and sleeping well. declined lithium and zyprexa. denies SI/HI/VH/AH. continue current tx plan. 03/30:Irritable. upset he was unable to use his personal hygiene products. Per nursing, pt threatened staff and squeezed tooth paste throughout unit hallway to show his frustration. Pt was able to calm down after speaking with security. declined medications. 03/31: Keeping to self. laying in bed listening to music. refused medications. calm today. Patient reports feeling great ; pt stated, nothing is wrong with me. I'm waiting so I can leave tomorrow. I'm hoping for the best . denies SI/HI/VH/AH. per nursing, slept 6 hours. Continue current tx plan. 04/01: variably calm on the unit versus highly agitated. paranoid delusions, irritability, lability continue. seems to believe has met him prior to the present hospitalization and is stalking him. believes brother behind conspiracy to have him psychiatrically hospitalized. has been refusing all medications, including for hyperthyroidism. informed he would be filed on. filed. continue to offer medications. 04/02: continues agitated, belittling, verbally aggressive, refusing all medications including for hyperthyroidism. continue to offer medication. 04/03: paranoid there is a conspiracy to hospitalize him. threatening to stick a stick in staff once he is released by electrical instrument repairer. insists his hyperthyroidism was cured at [facility]. asserts there is NOTHING wrong with him. continue to offer medication. 04/04: irritable, rejecting. verbally abuses MD and sends him away: see you on monday [in court]. continue to offer medication for thyroid condition and mental illness. 04/05 continue tx. suspicious and guarded, accusatory, verbal threats to hurt staff and peers 04/06 intrusive, posturing towards staff and peer who he thinks is not real and is an impostor, continues to make verbal threats to harm him but thinks that because he is not real he may not experience any pain. 04/07: threatening statements and behaviors of yesterday noted. pt sleeping this morning, dismissive of MD. 04/08: asleep days. committed and meds ordered by court. 04/09: on being informed of court order and MD insisting on meds, pt escalated to hurling food item in container against wall at high speed and saying he wished he could do the same to MD's head. pt eventually took court ordered meds PO. sensodyne and excedrin not available in pharmacy (pt requesting them). 04/10: continue tx. Pt accepting medication today. 04/11: Keeping to self. Lying in bed most of morning. Declined to meet with T/W. Pt stated, I'm fine. I don't need anything . Listening to headphones in room. Declined court ordered PO medications; received IM medications. Refused vital signs.continue tx plan. 04/12: got IMs yesterday, took PO this morning. sleepy, no concerns or complaints. 04/13: taking PO meds again. slept 7 hours. sleepy again mid morning refusing interview. continue current mgmt. 04/14: sleeping, rousable. denies being sedated or tired, says he's just bored. no questions or complaints. informed of need to check labs. check lithium level and thyroid labs tonight. 04/15: refusing labs. delusional re his brother harming him. verbally abusive toward MD. spat in floor. happy with improvement in proptosis. 04/16: Lying in bed. Calm. cooperative. guarded. Pt reports feeling tired this morning d/t poor sleep last night. Pt stated, I don't need anything. I didn't sleep well so I'm trying to catch up . denies any issues at this time. denies SI/HI/VH/AH. Continue current tx plan. 04/17: more calm today, less explosive. continue current mgmt. 04/18: continues more calm. tolerating moments of frustration without verbally attacking MD. slept only 2 hours overnight, however. continue current mgmt. 04/19 continues to push boundaries and limits with staff mike around cell phone- 04/20 - aggressive with staff and unpredictable- threw water pitcher at staff behind desk/-when seen by provider passive in bed-denying all compaints/sys- no insight 04/21: appears as per last week. more difficult behaviors around cell phone use, did throw pitcher of water at RN monday over phone use and was restrained. continue current mgmt. 04/22: continues to have conflict around cell phone use. consolidate zyprexa at HS to decrease daytime sedation. 1:1 allegra shift until peer he is accusing of not being a real patient and appears to be targeting discharges tomorrow. 04/23: lithium 0.6 on 600 BID. sleeping better, remains delusional (telling SW who is marginally younger than him that she could be his daughter). just changed zyprexa dosing as of last night. continue current regimen and observe for continued stabilization. T/C slight increase in lithium dosing. 04/24: Laying in bed. guarded. calm. did not want to get out of bed to meet with T/W. Pt reports feeling great today but declined to go into detail. listening to music on unit headphones. Pt stated, I'm fine. I don't need anything . denies any issues at this time. denies SI/HI/VH/AH. Continue current tx plan. 04/25: Laying in bed. keeping to self. calm. paranoid. Discussed incident that occurred with staff last evening. Pt stated, the counselor made up a lie yesterday. I said she looks like my ex-girlfriend. I know they are related. They want to make up a lie to irritate me. They are trying to talk to me so they can use recording devices and make me look some kind of way . listening to music on unit headphones. denies SI/HI/VH/AH. Continue current tx plan. 04/26: Continue current regimen and plans. Increase Zyprexa 20 mg q.h.s. fresh air break withheld 04/27: Continue current regimen and plans 04/28: somewhat less irritable and agitated than last week. however, over the weekend was claiming he was the father of a footballer on TV and also that a staff member is a twin of his ex-GF (and he pushed staff member). TFTs improving. continue current mgmt. 04/29: no change in presentation. continue current mgmt. 04/30: no irritable edge today. calm, pleasant. engaging in small talk. reality testing not pressed. continue current mgmt for now. 05/01: no change in presentation. continue current mgmt. 05/02: BPs coming down, DC beta joanne as pt has been refusing anyway. remains not antagonistic toward MD. using phone appropriately. continue current mgmt otherwise. 05/03 continue 05/04: remains delusional, irritable/labile when delusional system confronted. declines to sign TOMMY for [facility] records. continue current mgmt. 05/06: declining to meet with MD, but does meet with medical student. remains upset about yesterday's confrontation re his delusional system. 05/07: Active on unit. keeping to self. pacing unit hallway while listening to unit headphones. medication compliant. patient reports feeling good ; pt stated, I'm just waiting to leave here. I want to return to my life and do things like go grocery shopping . denies SI/HI/VH/AH. Continue current tx plan. 05/08: stable presentation, delusions not being brought to the surface daily. remains affectively improved from admission. continue current mgmt. 05/09: calm, pleasant. no questions or complaints. continue current mgmt. 05/10: no change in presentation. due to lack of improvement in dental infection Sx, DC PCN and start augmentin. 05/11: no change in presentation. continue current mgmt. 05/12: as for yesterday. dental pain improving a bit. 05/13: expressed to medical student that his brother poisoned him, causing his thyroid disease. no change in presentation. continue current mgmt. 05/14: Pacing unit hallway. keeping to self. patient reports feeling good today; denies any issues at this time. denies SI/HI/VH/AH. per nursing, slept 5 hours. Continue current tx plan. 05/15: slept 6 hours. otherwise isolative, difficult to engage. continue current mgmt. 05/16: slept 7 hours. as for yesterday otherwise. 05/17/25: Slept well, no issue with appetite, skinny and pretty tall. Compliant with medication. No side effects Calm and pleasant upon approach. Some what paranoid. Tangential, however denies other safety concerns. Questions if he is discharging soon. He is on antibiotic for 7 days for mouth pain/tooth pain. We will finish the 7 course up in antibiotic after tonight dose. Then discontinue. 05/18/25: Slept for 5 hours plus hours this morning. In bed most of the shift, no behavior issues. Denies other safety concerns. 05/19: in bed days, up eves. no change in presentation. continue current mgmt. 05/20: no change in presentation. check labs. 05/21: lithium low, TFTs mixed and not all back. increase lithium from 600 BID to 600/900. trend BUN/Cr, with slight elevation. otherwise continue current mgmt. 05/22: no change in presentation. continue current mgmt. 05/23: does not deny someone stole his sperm and impregnated his landlord's child with it. irritable. c/o dental pain, antibx restarted. otherwise continue current mgmt. 05/14: no change in mgt 05/25: more isolative today; no change in mgt 05/26: decreases in methimazole noted. continue psych regimen as is. pt refused to interact with MD today. 05/27: i'm sleeping. no change in presentation. labs tonight. 05/28: no change in behavior. lithium 0.66, BUN stable. continue current mgmt. 05/29: irritable. continue current mgmt. 05/30: no longer in single room. still not engaging, sleeping days. continue current mgmt. 05/31:laying in bed. declined to meet with T/W. pt stated, I want to sleep. I didn't sleep enough . Pt encouraged to reach out to staff if he needs anything. Continue current tx plan. 06/01: Similar to yesterday. laying in bed. Irritable. declined to meet with T/W and pulled bed sheets over head. pt stated, I don't want to talk. I want to sleep . difficult to engage. Continue current tx plan. 06/02: Similar to yesterday. laying in bed. Irritable. declined to meet with T/W. Observed getting drink from kitchen; T/W approached pt and asked if they could speak. patient declined to acknowledge T/W and walked past. Continue current tx plan. 06/03: no change in behavior. continue tx plan. 06/04/25: Passive engaged in the assessment, in bed mostly sleeping this morning which could be interfere with his nighttime. Cover body under the blanket Slept for 4-5 hours last night. Was medication compliant, attended no groups, isolative to self in room. No SI/SIB/HI/AVH expressed. 06/05: continue tx plan. 06/06: reports feeling fine ; continues guarded. difficult to engage. declining to meet with T/W. continue tx plan. 06/07/25: Slept for 4 hours at night, but has been sleeping most of the day yesterday as well. Spent majority of the shift in bed, was medication compliant. Passive engaged in the conversation. He said he will try to change the sleeping pattern so that he can be awake more during the daytime. Appear to be sedated in the morning. No safety behavior. 06/08/25: Slept for 3-4 hours last night, compliant with medications. Denies side effects, denies other safety concerns. Continued to encourage patient to up and down more than on the unit he spent most of the day sleeping. He is pleasant upon approach. No other behavior issues. Denied voices/hallucinations. Suicide thoughts or homicidal thoughts. 06/09: sleeping, minimally rousable. denies problems. continue current mgmt. 06/10: sleeping all day, up most of the night. minimally rousable. denies problems. continue current mgmt. per JAMAICA Arrington: Jean said when he leaves he can return to [facility]. he was living with a lady there and can go back. He plans to get a job to pay off his debt. He said he owes money because they sent him back here due to losing his passport and he owes them money for the temporary emergency passport and the flight back to the [place]. so his main focus is to get a job. he said he will try things here first and if it doesn't work out he plans to return to [place]. 06/11/25: Passively engaged in conversation while in bed sleeping/resting. Able to answer question appropriately, but seems to be minimized. Denies SI/SIB/HI/AVH. He slept 5 hours last night, spent most of the day in bed sleeping. Attempted to no groups, observed out to the afternoon in the subramanian near the nurse station. No change in presentation. Encourage groups,up and engaged in groups. 06/12: not engaging. no complaints or questions re med changes. cross-taper zyprexa in favor of invega, give MONTERO invega. tonight, decrease zyprexa to 15 mg and start invega 3 mg. otherwise continue current mgmt. 06/13: continues avoidant and disengaged. denies side effects from med change last night. informed cross-titration will advance tonight. decrease zyprexa to 10 mg tonight, increase paliperidone to 6 mg. plan to continue by 5 mg zyprexa and 3 mg paliperidone increments every several days as tolerated until zyprexa DCed and paliperidone at 12 mg QHS. once it is established pt is tolerating PO Paliperidone, invega sustenna to be administered. 06/14: Continue current regimen and plans 06/15: Continue current plans and regimen 06/16: irritable re neuroleptic change. denies side effects or problems with it, however. minimally engageable. increase invega to 9 QHS and decrfease zyprexa to 5 QHS. 06/17/25: Continued to be irritable regarding medication change/titration. However engaged in conversation, hyper verbal, paranoid, reports medication slow his thoughts down and he does not not like it. Poor insight and poor judgment. He thinks he only need lithium, not other medications. Remind patient to continue doing the sleep pattern changing. However his in bed mostly this morning. Slept for 4-5 hours last night. 06/18/25: Slept for 5 hours last night as he continues sleeping during daytime. Compliant with meds, did not c/o side effects.Passingly engaging in assessment. Denies safety concerns. Tolerate the tritation well. Will increase Inveag up to max of 12 tomorrow and Discontinue Olanzepine at HS. Continue to encourage up and out on day so he can sleep better at HS. 06/19/25: Patient slept for 5.5 hours last night, was medication compliant, mostly in his room yesterday but seen more often in the evening. Patient is awake in his room, listen to music, his morning tray was taken away and clean the area. He is very pleasant to talk to today, reports he feels good, denies side effects from medications, denies any safety concerns. Denies feeling sedation, denies anxiety/depression. He is receptive with the plan of medication over the weekends and next week, happy to hear about the medication plan. He also agree with the MONTERO Invega Sustenna on Monday. Encourage him to go out and attended to groups, he said that he will. Reported that he was out for groups a couple of times last week. Discontinue Haldol p.r.n.. Discontinue scheduled Zyprexa 5 mg at bedtime. Only on Zyprexa at g IM daily p.r.n. as backup orders if refused Invega. Invega 12 mg at bedtime. Plan to monitor over the weekends and will give long-acting injection on Monday if tolerate with the p.o. well Reduce Seroquel 200 mg p.r.n. at bedtime to 100 p.r.n. at bedtime for insomnia. Seroquel 50 mg b.i.d. p.r.n. for agitation. Discontinue Motrin. Patient on lithium. Labs were for MondayJune 20: CMP, TSH with free T4. 06/20/25: In bed most of the day, was compliant with medication, however refused labs work. Re- scheduled for Monday. Continue with Invega 12 mg at bedtime. We will reassess and offer long-acting injection on Monday. Continue to encourage patient to get up and go to some groups. No safety concerns expressed. Minimal peer and staff interaction. 06/21: no change in presentation. start MONTERO monday. no s/e from invega. otherwise continue current mgmt. 06/22: stable. continue current mgmt. 06/23/25: More awake and alert. Review with patient regarding policy for his phone use BID 30min each time, patient is educated on compliant with policy. He asks for more 5-10 min extra headphone use at night on the weekends after [id number]. Once again, redirected for unit rules. He agrees with MONTERO which is scheduled today. Discontinue Invega PO Invega Sustenna 234mg IM once. Will monitor for possible side effects and sedation. Will offer 156mg after 1 week. If mentaly stable with 156mg, will maintain at this dose, if not will offer 234mg Monthly. 06/24/25: Slept for 5 hours last night, but also went to bed around 7 tonight p.m. last night per his report. He also attended to groups in the afternoon yesterday. Compliant with medications. No side effects from Invega Sustenna. He is engaged in full conversation today why he is in bed, denies safety concerns. Observe he is on the unit, social with peers and staff in longer period of time. Appeared to be happy. He plans to take shower today. Reported that he was up early but he does not feel hungry in the morning. He is making progress, not too sedated during daytime since switching his medication. Appears to do well so far with Invega Sustenna. 06/25/25: Patient slept for 4 hours last night, however he reported was napping in the afternoon for couple hours which affect his sleeping pattern at night. Educate patient to not napping late in the evening. He is receptive. Compliant with medications, no side effects. He reports his did not shower yesterday but he will today. He is awake in his room not sleeping, engage in full conversation, no delusional or paranoid statements make. He is visible at times. Continued to improve in mood, engaging in other activities on the unit. Denies other safety concerns. Denies hallucinations. No irritability mood, not sedated during day time compared to when he was taking olanzapine. We will schedule Invega Sustenna 156 next Monday. Work with social media manager to see where he will return to. He probably needs [facility] to manage medication. 06/26/25: He slept for 5 hours, compliant with medications. Denies side effects. He self-reported that he went to bed last night and was able to fall asleep by 01:00 and able to stay asleep whole night. Denies safety concerns. I spoke with him in length today regarding aftercare. He thinks he will go to the hospital in [place] to ask them regarding his heart condition. He thinks people was lying to get him to the hospital as he does not have mental health illnesses. He believes that he has been exactly the same he was seen he was a little, and at he able to remember everything in the past. He also reports that he used to use [employer] in [place]. At 1st he does not want [facility] application. I explained to him that in order to be a candidate patient have to be a safe that he has mental health issues, so people can submit the application, and from the [facility] worker will contact him to do assessment if he qualify for any services that they can provide. Patient is receptive application, social media manager was notified. Patient also would like to have services with [facility] in [place]. He showered yesterday morning, did not go to groups yesterday, but he will go to some groups today per his plan for the day, more awake, engaged in conversation, no irritability. However, continued to be poor insight of his illnesses. He does not want to return to his brother I have not talking to him for since 2021. He reported that that his brother told other people that patient was trying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
[2025-06-29 19:50] VITALS: BP 155/65; PULSE 72; TEMP 36.7; O2SAT 100
[2025-06-30 08:27] VITALS: BP 130/87; PULSE 79; RESP 16; TEMP 37.1; O2SAT 99
--- NOTE | 2025-06-30 12:40 | P.PNPSI_ITS ---
Subjective Subjective Date of Service: 06/30/25 Reason For Visit: psychotic disorder Subjective Notes: [place]illo Order and Section 8 Healthcare Proxy: No Guardianship: No Medical Problems Affecting Mental Status: No Interim History: Medical record and nursing notes reviewed; case discussed during rounds with team/nursing staff, and met with patient for supportive therapy/psychoeducation, as well as medication management. Patient slept for 6 hours, compliant with medication, denies side effects. Got Second loading dose of Invega Sustenna today. visible, social and appropriate. Did not attend groups over the weekends but he plans to attend groups today. Report sleeping better at night. Do not want scheduled time to change. Continue to work with for [facility] application, OP services. He would like to FLU with [employer] in [place]. Educate patient of risk harming kidneys if taking [place] with NSAIDs, Motrin. Continue reinforce and educate. Calm pleasant and cooperative, no behavior issues. Medication Compliance: Yes Side effects from medications: No Attending Groups: Intermittent Review of Systems Acute medical concerns: No Medical Review of Systems: unchanged Review of Systems Review of Systems Constitutional: Denies fatigue and Denies fever(s) Cardiovascular: Denies chest pain and Denies dyspnea Respiratory: Denies dyspnea Gastrointestinal: Denies abdominal pain Psychiatric: denies suicidal ideation Endocrine: Denies fatigue Yes all other systems are reviewed and are negative Mental Status Exam Mental Status Exam Narrative: Intermittently in milieu, alert and awake, exopthalmos, actively engaged in full lengthy conversation., denies SI/SIB/HI/AVH, more logical but still do not believe he has mental health issues. Denies safety concerns. No SI//SIB/HI/AVH expressed.Visible, social, no irritable mood. calm, pleasant and cooperative. Diagnostics Vital Signs (24Hr): Vital Signs - 24 hr 06/29/25 19:50 06/30/25 08:27 Temperature 98.1 F 98.8 F Pulse Rate 72 79 Respiratory Rate 16 Blood Pressure 155/65 H 130/87 Pulse Oximetry 100 99 Oxygen Delivery Method Room Air Room Air BMI result Body Mass Index 24.2 Labs 06/25/25 08:02 06/20/25 20:35 Medications Medications Current Medications Acetaminophen (Acetaminophen 325 Mg Tablet) 650 mg PO Q4H PRN PRN Reason: Pain, Mild (Pain Scale 1-3) Al Hydroxide/Mg Hydroxide (Magnesium Hydrox/Alum Hydrox 30 Ml Oral.Susp) 30 ml PO Q6H PRN PRN Reason: Heart burn Benzocaine (Benzocaine 20 % Oral Gel 14 Gm Tube) 1 appl MUCOUS MEM QID PRN; Protocol PRN Reason: Mouth Sore Pain Last Admin: 04/26/25 18:33 Dose: 1 appl Diazepam (Diazepam 10 Mg/2 Ml Cartridge) 10 mg IM BID PRN PRN Reason: refusal of lithium, per everett Last Admin: 04/11/25 09:56 Dose: 10 mg [place] Carbonate ([place] Carbonate Er 300 Mg Tablet.Er) 600 mg PO DAILY [facility] Last Admin: 06/30/25 08:30 Dose: 600 mg [place] Carbonate ([place] Carbonate Er 450 Mg Tablet.Er) 900 mg PO DAILY@2300 [facility] Last Admin: 06/29/25 23:14 Dose: 900 mg Magnesium Hydroxide (Milk Of Magnesia 30 Ml Oral.Susp) 30 ml PO DAILY PRN PRN Reason: Constipation Methimazole (Methimazole 10 Mg Tablet) 10 mg PO DAILY [facility] Last Admin: 06/30/25 08:30 Dose: 10 mg Nicotine (Nicotine 21 Mg Patch.Td24) 21 mg TRANSDERMA DAILY PRN PRN Reason: nicotine cravings Last Admin: 04/12/25 17:06 Dose: 21 mg Nicotine Polacrilex (Nicotine Polacrilex Lozenge 2 Mg Lozenge) 2 mg BUCCAL Q1H PRN PRN Reason: Nicotine Cravings Last Admin: 04/30/25 08:49 Dose: 2 mg Patient Own Medication Excedrin 250/250/65mg 2 each PO Q8H PRN PRN Reason: Migraine Headache Last Admin: 04/18/25 18:03 Dose: 2 each Olanzapine (Olanzapine 10 Mg Vial) 10 mg IM DAILY PRN PRN Reason: if refuse Invega PO Quetiapine Fumarate (Quetiapine Fumarate 100 Mg Tablet) 100 mg PO BEDTIME PRN PRN Reason: insomnia Quetiapine Fumarate (Quetiapine Fumarate 50 Mg Tablet) 50 mg PO BID PRN PRN Reason: agitation Allergies Allergies Allergy/AdvReac Type Severity Reaction Status Date / Time No Known Allergies Allergy Verified 03/26/25 14:24 Assessment & Plan Assessment & Plan (1) Graves disease: Status: Acute Code(s): E05.00 - Thyrotoxicosis with diffuse goiter without thyrotoxic crisis or storm Assessment and Plan: Hyperthyroidism/Graves disease. He will need follow up with endocrinology as an outpatient He will also need a primary care doctor referral as an outpatient Discussed with Dr. Bejarano, patient will need free T4 weekly Decrease Methimazole to 15 mgs daily for three days and then 10 mgs daily- discussed with patient he is aware of plan and rationale. TSH and free T4 every 4 weeks. No need to draw thyroid stimulation immunology or TSH receptor AB (2) Dental abscess: Status: Acute Code(s): K04.7 - Periapical abscess without sinus Assessment and Plan: Carious tooth/dental infection Recently treated with PEN VK 500 mg q.6 hours for 7 days Patient will need follow up with dentist on discharge for tooth extraction Motrin helping pain. (3) Becca: Status: Acute Code(s): F30.9 - Manic episode, unspecified Plan 03/26: offer lithium and seroquel for becca. continue methimazole and beta joanne for hyperthyroidism as [place] [facility] trend TFTs. 12b. 03/27: taking methimazole and beta joanne. refused HS meds last night, took morning meds today. continue to encourage medication compliance. 03/28: intermittently taking meds. wants all meds in morning. pressured, manic, paranoid delusions. encouraged to take lithium but states he will not. all meds ordered for morning. 03/29: Keeping to self. no groups. observed laying in bed listening to music on unit headphones. pleasant. Pt reports feeling good today and sleeping well. declined lithium and zyprexa. denies SI/HI/VH/AH. continue current tx plan. 03/30:Irritable. upset he was unable to use his personal hygiene products. Per nursing, pt threatened staff and squeezed tooth paste throughout unit hallway to show his frustration. Pt was able to calm down after speaking with security. declined medications. 03/31: Keeping to self. laying in bed listening to music. refused medications. calm today. Patient reports feeling great ; pt stated, nothing is wrong with me. I'm waiting so I can leave tomorrow. I'm hoping for the best . denies SI/HI/VH/AH. per nursing, slept 6 hours. Continue current tx plan. 04/01: variably calm on the unit versus highly agitated. paranoid delusions, irritability, lability continue. seems to believe MD has met him prior to the present hospitalization and is stalking him. believes brother behind conspiracy to have him psychiatrically hospitalized. has been refusing all medications, including for hyperthyroidism. informed he would be filed on. filed. continue to offer medications. 04/02: continues agitated, belittling, verbally aggressive, refusing all medications including for hyperthyroidism. continue to offer medication. 04/03: paranoid there is a conspiracy to hospitalize him. threatening to stick a stick in staff once he is released by [employer]. insists his hyperthyroidism was cured at [facility]. asserts there is NOTHING wrong with him. continue to offer medication. 04/04: irritable, rejecting. verbally abuses MD and sends him away: see you on monday [in court]. continue to offer medication for thyroid condition and mental illness. 04/05 continue tx. suspicious and guarded, accusatory, verbal threats to hurt staff and peers 04/06 intrusive, posturing towards staff and peer who he thinks is not real and is an impostor, continues to make verbal threats to harm him but thinks that because he is not real he may not experience any pain. 04/07: threatening statements and behaviors of yesterday noted. pt sleeping this morning, dismissive of MD. 04/08: asleep days. committed and meds ordered by court. 04/09: on being informed of court order and MD insisting on meds, pt escalated to hurling food item in container against wall at high speed and saying he wished he could do the same to MD's head. pt eventually took court ordered meds PO. sensodyne and excedrin not available in pharmacy (pt requesting them). 04/10: continue tx. Pt accepting medication today. 04/11: Keeping to self. Lying in bed most of morning. Declined to meet with T/W. Pt stated, I'm fine. I don't need anything . Listening to headphones in room. Declined court ordered PO medications; received IM medications. Refused vital signs.continue tx plan. 04/12: got IMs yesterday, took PO this morning. sleepy, no concerns or complaints. 04/13: taking PO meds again. slept 7 hours. sleepy again mid morning refusing interview. continue current mgmt. 04/14: sleeping, rousable. denies being sedated or tired, says he's just bored. no questions or complaints. informed of need to check labs. check lithium level and thyroid labs tonight. 04/15: refusing labs. delusional re his brother harming him. verbally abusive toward MD. spat in floor. happy with improvement in proptosis. 04/16: Lying in bed. Calm. cooperative. guarded. Pt reports feeling tired this morning d/t poor sleep last night. Pt stated, I don't need anything. I didn't sleep well so I'm trying to catch up . denies any issues at this time. denies SI/HI/VH/AH. Continue current tx plan. 04/17: more calm today, less explosive. continue current mgmt. 04/18: continues more calm. tolerating moments of frustration without verbally attacking MD. slept only 2 hours overnight, however. continue current mgmt. 04/19 continues to push boundaries and limits with staff mike around cell phone- 04/20 - aggressive with staff and unpredictable- threw water pitcher at staff behind desk/-when seen by provider passive in bed-denying all compaints/sys- no insight 04/21: appears as per last week. more difficult behaviors around cell phone use, did throw pitcher of water at RN monday over phone use and was restrained. continue current mgmt. 04/22: continues to have conflict around cell phone use. consolidate zyprexa at HS to decrease daytime sedation. 1:1 allegra shift until peer he is accusing of not being a real patient and appears to be targeting discharges tomorrow. 04/23: lithium 0.6 on 600 BID. sleeping better, remains delusional (telling SW who is marginally younger than him that she could be his daughter). just changed zyprexa dosing as of last night. continue current regimen and observe for continued stabilization. T/C slight increase in lithium dosing. 04/24: Laying in bed. guarded. calm. did not want to get out of bed to meet with T/W. Pt reports feeling great today but declined to go into detail. listening to music on unit headphones. Pt stated, I'm fine. I don't need anything . denies any issues at this time. denies SI/HI/VH/AH. Continue current tx plan. 04/25: Laying in bed. keeping to self. calm. paranoid. Discussed incident that occurred with staff last evening. Pt stated, the counselor made up a lie yesterday. I said she looks like my ex-girlfriend. I know they are related. They want to make up a lie to irritate me. They are trying to talk to me so they can use recording devices and make me look some kind of way . listening to music on unit headphones. denies SI/HI/VH/AH. Continue current tx plan. 04/26: Continue current regimen and plans. Increase Zyprexa 20 mg q.h.s. fresh air break withheld 04/27: Continue current regimen and plans 04/28: somewhat less irritable and agitated than last week. however, over the weekend was claiming he was the father of a footballer on TV and also that a staff member is a twin of his ex-GF (and he pushed staff member). TFTs improving. continue current mgmt. 04/29: no change in presentation. continue current mgmt. 04/30: no irritable edge today. calm, pleasant. engaging in small talk. reality testing not pressed. continue current mgmt for now. 05/01: no change in presentation. continue current mgmt. 05/02: BPs coming down, DC beta joanne as pt has been refusing anyway. remains not antagonistic toward MD. using phone appropriately. continue current mgmt otherwise. 05/03 continue 05/04: remains delusional, irritable/labile when delusional system confronted. declines to sign TOMMY for [facility] records. continue current mgmt. 05/06: declining to meet with MD, but does meet with medical student. remains upset about yesterday's confrontation re his delusional system. 05/07: Active on unit. keeping to self. pacing unit hallway while listening to unit headphones. medication compliant. patient reports feeling good ; pt stated, I'm just waiting to leave here. I want to return to my life and do things like go grocery shopping . denies SI/HI/VH/AH. Continue current tx plan. 05/08: stable presentation, delusions not being brought to the surface daily. remains affectively improved from admission. continue current mgmt. 05/09: calm, pleasant. no questions or complaints. continue current mgmt. 05/10: no change in presentation. due to lack of improvement in dental infection Sx, DC PCN and start augmentin. 05/11: no change in presentation. continue current mgmt. 05/12: as for yesterday. dental pain improving a bit. 05/13: expressed to medical student that his brother poisoned him, causing his thyroid disease. no change in presentation. continue current mgmt. 05/14: Pacing unit hallway. keeping to self. patient reports feeling good today; denies any issues at this time. denies SI/HI/VH/AH. per nursing, slept 5 hours. Continue current tx plan. 05/15: slept 6 hours. otherwise isolative, difficult to engage. continue current mgmt. 05/16: slept 7 hours. as for yesterday otherwise. 05/17/25: Slept well, no issue with appetite, skinny and pretty tall. Compliant with medication. No side effects Calm and pleasant upon approach. Some what paranoid. Tangential, however denies other safety concerns. Questions if he is discharging soon. He is on antibiotic for 7 days for mouth pain/tooth pain. We will finish the 7 course up in antibiotic after tonight dose. Then discontinue. 05/18/25: Slept for 5 hours plus hours this morning. In bed most of the shift, no behavior issues. Denies other safety concerns. 05/19: in bed days, up eves. no change in presentation. continue current mgmt. 05/20: no change in presentation. check labs. 05/21: lithium low, TFTs mixed and not all back. increase lithium from 600 BID to 600/900. trend BUN/Cr, with slight elevation. otherwise continue current mgmt. 05/22: no change in presentation. continue current mgmt. 05/23: does not deny someone stole his sperm and impregnated his landlord's child with it. irritable. c/o dental pain, antibx restarted. otherwise continue current mgmt. 05/14: no change in mgt 05/25: more isolative today; no change in mgt 05/26: decreases in methimazole noted. continue psych regimen as is. pt refused to interact with MD today. 05/27: i'm sleeping. no change in presentation. labs tonight. 05/28: no change in behavior. lithium 0.66, BUN stable. continue current mgmt. 05/29: irritable. continue current mgmt. 05/30: no longer in single room. still not engaging, sleeping days. continue current mgmt. 05/31:laying in bed. declined to meet with T/W. pt stated, I want to sleep. I didn't sleep enough . Pt encouraged to reach out to staff if he needs anything. Continue current tx plan. 06/01: Similar to yesterday. laying in bed. Irritable. declined to meet with T/W and pulled bed sheets over head. pt stated, I don't want to talk. I want to sleep . difficult to engage. Continue current tx plan. 06/02: Similar to yesterday. laying in bed. Irritable. declined to meet with T/W. Observed getting drink from kitchen; T/W approached pt and asked if they could speak. patient declined to acknowledge T/W and walked past. Continue current tx plan. 06/03: no change in behavior. continue tx plan. 06/04/25: Passive engaged in the assessment, in bed mostly sleeping this morning which could be interfere with his nighttime. Cover body under the blanket Slept for 4-5 hours last night. Was medication compliant, attended no groups, isolative to self in room. No SI/SIB/HI/AVH expressed. 06/05: continue tx plan. 06/06: reports feeling fine ; continues guarded. difficult to engage. declining to meet with T/W. continue tx plan. 06/07/25: Slept for 4 hours at night, but has been sleeping most of the day yesterday as well. Spent majority of the shift in bed, was medication compliant. Passive engaged in the conversation. He said he will try to change the sleeping pattern so that he can be awake more during the daytime. Appear to be sedated in the morning. No safety behavior. 06/08/25: Slept for 3-4 hours last night, compliant with medications. Denies side effects, denies other safety concerns. Continued to encourage patient to up and down more than on the unit he spent most of the day sleeping. He is pleasant upon approach. No other behavior issues. Denied voices/hallucinations. Suicide thoughts or homicidal thoughts. 06/09: sleeping, minimally rousable. denies problems. continue current mgmt. 06/10: sleeping all day, up most of the night. minimally rousable. denies problems. continue current mgmt. per JAMAICA Arrington: Jean said when he leaves he can return to [facility]. he was living with a lady there and can go back. He plans to get a job to pay off his debt. He said he owes money because they sent him back here due to losing his passport and he owes them money for the temporary emergency passport and the flight back to the . so his main focus is to get a job. he said he will try things here first and if it doesn't work out he plans to return to [place]. 06/11/25: Passively engaged in conversation while in bed sleeping/resting. Able to answer question appropriately, but seems to be minimized. Denies SI/SIB/HI/AVH. He slept 5 hours last night, spent most of the day in bed sleeping. Attempted to no groups, observed out to the afternoon in the subramanian near the nurse station. No change in presentation. Encourage groups,up and engaged in groups. 06/12: not engaging. no complaints or questions re med changes. cross-taper zyprexa in favor of invega, give MONTERO invega. tonight, decrease zyprexa to 15 mg and start invega 3 mg. otherwise continue current mgmt. 06/13: continues avoidant and disengaged. denies side effects from med change last night. informed cross-titration will advance tonight. decrease zyprexa to 10 mg tonight, increase paliperidone to 6 mg. plan to continue by 5 mg zyprexa and 3 mg paliperidone increments every several days as tolerated until zyprexa DCed and paliperidone at 12 mg QHS. once it is established pt is tolerating PO Paliperidone, invega sustenna to be administered. 06/14: Continue current regimen and plans 06/15: Continue current plans and regimen 06/16: irritable re neuroleptic change. denies side effects or problems with it, however. minimally engageable. increase invega to 9 QHS and decrfease zyprexa to 5 QHS. 06/17/25: Continued to be irritable regarding medication change/titration. However engaged in conversation, hyper verbal, paranoid, reports medication slow his thoughts down and he does not not like it. Poor insight and poor judgment. He thinks he only need lithium, not other medications. Remind patient to continue doing the sleep pattern changing. However his in bed mostly this morning. Slept for 4-5 hours last night. 06/18/25: Slept for 5 hours last night as he continues sleeping during daytime. Compliant with meds, did not c/o side effects.Passingly engaging in assessment. Denies safety concerns. Tolerate the tritation well. Will increase Inveag up to max of 12 tomorrow and Discontinue Olanzepine at HS. Continue to encourage up and out on day so he can sleep better at HS. 06/19/25: Patient slept for 5.5 hours last night, was medication compliant, mostly in his room yesterday but seen more often in the evening. Patient is awake in his room, listen to music, his morning tray was taken away and clean the area. He is very pleasant to talk to today, reports he feels good, denies side effects from medications, denies any safety concerns. Denies feeling sedation, denies anxiety/depression. He is receptive with the plan of medication over the weekends and next week, happy to hear about the medication plan. He also agree with the MONTERO Invega Sustenna on Monday. Encourage him to go out and attended to groups, he said that he will. Reported that he was out for groups a couple of times last week. Discontinue Haldol p.r.n.. Discontinue scheduled Zyprexa 5 mg at bedtime. Only on 10 Zyprexa at g IM daily p.r.n. as backup orders if refused Invega. Invega 12 mg at bedtime. Plan to monitor over the weekends and will give long- acting injection on Monday if tolerate with the p.o. well Reduce Seroquel 200 mg p.r.n. at bedtime to 100 p.r.n. at bedtime for insomnia. Seroquel 50 mg b.i.d. p.r.n. for agitation. Discontinue Motrin. Patient on lithium. Labs were for MondayJune 20: CMP, TSH with free T4. 06/20/25: In bed most of the day, was compliant with medication, however refused labs work. Re- scheduled for Monday. Continue with Invega 12 mg at bedtime. We will reassess and offer long-acting injection on Monday. Continue to encourage patient to get up and go to some groups. No safety concerns expressed. Minimal peer and staff interaction. 06/21: no change in presentation. start MONTERO monday. no s/e from invega. otherwise continue current mgmt. 06/22: stable. continue current mgmt. 06/23/25: More awake and alert. Review with patient regarding policy for his phone use BID 30min each time, patient is educated on compliant with policy. He asks for more 5-10 min extra headphone use at night on the weekends after 2300. Once again, redirected for unit rules. He agrees with MONTERO which is scheduled today. Discontinue Invega PO Invega Sustenna 234mg IM once. Will monitor for possible side effects and sedation. Will offer 156mg after 1 week. If mentaly stable with 156mg, will maintain at this dose, if not will offer 234mg Monthly. 06/24/25: Slept for 5 hours last night, but also went to bed around 7 tonight p.m. last night per his report. He also attended to groups in the afternoon yesterday. Compliant with medications. No side effects from Invega Sustenna. He is engaged in full conversation today why he is in bed, denies safety concerns. Observe he is on the unit, social with peers and staff in longer period of time. Appeared to be happy. He plans to take shower today. Reported that he was up early but he does not feel hungry in the morning. He is making progress, not too sedated during daytime since switching his medication. Appears to do well so far with Invega Sustenna. 06/25/25: Patient slept for 4 hours last night, however he reported was napping in the afternoon for couple hours which affect his sleeping pattern at night. Educate patient to not napping late in the evening. He is receptive. Compliant with medications, no side effects. He reports his did not shower yesterday but he will today. He is awake in his room not sleeping, engage in full conversation, no delusional or paranoid statements make. He is visible at times. Continued to improve in mood, engaging in other activities on the unit. Denies other safety concerns. Denies hallucinations. No irritability mood, not sedated during day time compared to when he was taking olanzapine. We will schedule Invega Sustenna 156 next Monday. Work with socially responsible investment adviser to see where he will return to. He probably needs [facility]NA to manage medication. 06/26/25: He slept for 5 hours, compliant with medications. Denies side effects. He self-reported that he went to bed last night and was able to fall asleep by 01:00 and able to stay asleep whole night. Denies safety concerns. I spoke with him in length today regarding aftercare. He thinks he will go to the hospital in [place] to ask them regarding his heart condition. He thinks people was lying to get him to the hospital as he does not have mental health illnesses. He believes that he has been exactly the same he was seen he was a little, and at he able to remember everything in the past. He also reports that he used to use [employer] in [place]. At he does not want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
[2025-06-30 20:00] VITALS: BP 123/64; PULSE 84; RESP 16; TEMP 37; O2SAT 96
[2025-07-01 20:00] VITALS: BP 134/69; PULSE 83; RESP 16; TEMP 37; O2SAT 100
--- NOTE | 2025-07-01 21:16 | HO.PSYCHPN ---
Subjective Subjective Date of Service: 07/01/25 Reason For Visit: psychotic disorder Subjective Notes: [place] Order and Section 8 Healthcare Proxy: No Guardianship: No Medical Problems Affecting Mental Status: No Interim History: Medical record and nursing notes reviewed; case discussed during rounds with team/nursing staff, and met with patient for supportive therapy/psychoeducation, as well as medication management. Continued to improve in mood, sleep, and appetite. Compliant with medications. He is visible, intermittently attended groups. Engaged in treatment, engaged in encourage cessation with this provider and social studies department chair. He side the [facility] application, he also signed consent for [employer] so that social studies department chair can work on discharge plan. Per social studies department chair, patient is on the waiting list which is a definite when he will have the bed with [facility] services. Denies safety concerns, denies side effects from medications. Medication Compliance: Yes Side effects from medications: No Attending Groups: Intermittent Review of Systems Acute medical concerns: No Medical Review of Systems: unchanged Review of Systems Review of Systems Constitutional: Denies fatigue and Denies fever(s) Cardiovascular: Denies chest pain and Denies dyspnea Respiratory: Denies dyspnea Gastrointestinal: Denies abdominal pain Psychiatric: denies suicidal ideation Endocrine: Denies fatigue Yes all other systems are reviewed and are negative Mental Status Exam Mental Status Exam Narrative: Intermittently in milieu, alert and awake, exopthalmos, actively engaged in full lengthy conversation., denies SI/SIB/HI/AVH, more logical. Denies safety concerns. No SI//SIB/HI/AVH expressed.Visible, social, no irritable mood. calm, pleasant and cooperative. Diagnostics Vital Signs (24Hr): Vital Signs - 24 hr 07/01/25 20:00 Temperature 98.6 F Pulse Rate 83 Respiratory Rate 16 Blood Pressure 134/69 Pulse Oximetry 100 Oxygen Delivery Method Room Air BMI result Body Mass Index 24.2 Labs 06/25/25 08:02 06/20/25 20:35 Medications Medications Current Medications Acetaminophen (Acetaminophen 325 Mg Tablet) 650 mg PO Q4H PRN PRN Reason: Pain, Mild (Pain Scale 1-3) Al Hydroxide/Mg Hydroxide (Magnesium Hydrox/Alum Hydrox 30 Ml Oral.Susp) 30 ml PO Q6H PRN PRN Reason: Heart burn Benzocaine (Benzocaine 20 % Oral Gel 14 Gm Tube) 1 appl MUCOUS MEM QID PRN; Protocol PRN Reason: Mouth Sore Pain Last Admin: 04/26/25 18:33 Dose: 1 appl Diazepam (Diazepam 10 Mg/2 Ml Cartridge) 10 mg IM BID PRN PRN Reason: refusal of lithium, per [place]rett Last Admin: 04/11/25 09:56 Dose: 10 mg [place] Carbonate ([place] Carbonate Er 300 Mg Tablet.Er) 600 mg PO DAILY [facility] Last Admin: 07/01/25 10:01 Dose: 600 mg [place] Carbonate ([place] Carbonate Er 450 Mg Tablet.Er) 900 mg PO DAILY@2300 [facility] Last Admin: 06/30/25 23:28 Dose: 900 mg Magnesium Hydroxide (Milk Of Magnesia 30 Ml Oral.Susp) 30 ml PO DAILY PRN PRN Reason: Constipation Methimazole (Methimazole 10 Mg Tablet) 10 mg PO DAILY [facility] Last Admin: 07/01/25 10:01 Dose: 10 mg Nicotine (Nicotine 21 Mg Patch.Td24) 21 mg TRANSDERMA DAILY PRN PRN Reason: nicotine cravings Last Admin: 04/12/25 17:06 Dose: 21 mg Nicotine Polacrilex (Nicotine Polacrilex Lozenge 2 Mg Lozenge) 2 mg BUCCAL Q1H PRN PRN Reason: Nicotine Cravings Last Admin: 04/30/25 08:49 Dose: 2 mg Patient Own Medication Excedrin 250/250/65mg 2 each PO Q8H PRN PRN Reason: Migraine Headache Last Admin: 04/18/25 18:03 Dose: 2 each Olanzapine (Olanzapine 10 Mg Vial) 10 mg IM DAILY PRN PRN Reason: if refuse Invega PO Quetiapine Fumarate (Quetiapine Fumarate 100 Mg Tablet) 100 mg PO BEDTIME PRN PRN Reason: insomnia Quetiapine Fumarate (Quetiapine Fumarate 50 Mg Tablet) 50 mg PO BID PRN PRN Reason: agitation Allergies Allergies Allergy/AdvReac Type Severity Reaction Status Date / Time No Known Allergies Allergy Verified 03/26/25 14:24 Assessment & Plan Assessment & Plan (1) Graves disease: Status: Acute Code(s): E05.00 - Thyrotoxicosis with diffuse goiter without thyrotoxic crisis or storm Assessment and Plan: Hyperthyroidism/Graves disease. He will need follow up with endocrinology as an outpatient He will also need a primary care doctor referral as an outpatient Discussed with Dr. Bejarano, patient will need free T4 weekly Decrease Methimazole to 15 mgs daily for three days and then 10 mgs daily- discussed with patient he is aware of plan and rationale. TSH and free T4 every 4 weeks. No need to draw thyroid stimulation immunology or TSH receptor AB (2) Dental abscess: Status: Acute Code(s): K04.7 - Periapical abscess without sinus Assessment and Plan: Carious tooth/dental infection Recently treated with PEN VK 500 mg q.6 hours for 7 days Patient will need follow up with dentist on discharge for tooth extraction Motrin helping pain. (3) Becca: Status: Acute Code(s): F30.9 - Manic episode, unspecified Plan 03/26: offer lithium and seroquel for becca. continue methimazole and beta joanne for hyperthyroidism as started at [facility]. trend TFTs. 12b. 03/27: taking methimazole and beta joanne. refused HS meds last night, took morning meds today. continue to encourage medication compliance. 03/28: intermittently taking meds. wants all meds in morning. pressured, manic, paranoid delusions. encouraged to take lithium but states he will not. all meds ordered for morning. 03/29: Keeping to self. no groups. observed laying in bed listening to music on unit headphones. pleasant. Pt reports feeling good today and sleeping well. declined lithium and zyprexa. denies SI/HI/VH/AH. continue current tx plan. 03/30:Irritable. upset he was unable to use his personal hygiene products. Per nursing, pt threatened staff and squeezed tooth paste throughout unit hallway to show his frustration. Pt was able to calm down after speaking with security. declined medications. 03/31: Keeping to self. laying in bed listening to music. refused medications. calm today. Patient reports feeling great ; pt stated, nothing is wrong with me. I'm waiting so I can leave tomorrow. I'm hoping for the best . denies SI/HI/VH/AH. per nursing, slept 6 hours. Continue current tx plan. 04/01: variably calm on the unit versus highly agitated. paranoid delusions, irritability, lability continue. seems to believe MD has met him prior to the present hospitalization and is stalking him. believes brother behind conspiracy to have him psychiatrically hospitalized. has been refusing all medications, including for hyperthyroidism. informed he would be filed on. filed. continue to offer medications. 04/02: continues agitated, belittling, verbally aggressive, refusing all medications including for hyperthyroidism. continue to offer medication. 04/03: paranoid there is a conspiracy to hospitalize him. threatening to stick a stick in staff once he is released by [facility] [employer]. insists his hyperthyroidism was cured at [facility]. asserts there is NOTHING wrong with him. continue to offer medication. 04/04: irritable, rejecting. verbally abuses MD and sends him away: see you on monday [in court]. continue to offer medication for thyroid condition and mental illness. 04/05 continue tx. suspicious and guarded, accusatory, verbal threats to hurt staff and peers 04/06 intrusive, posturing towards staff and peer who he thinks is not real and is an impostor, continues to make verbal threats to harm him but thinks that because he is not real he may not experience any pain. 04/07: threatening statements and behaviors of yesterday noted. pt sleeping this morning, dismissive of MD. 04/08: asleep days. committed and meds ordered by court. 04/09: on being informed of court order and MD insisting on meds, pt escalated to hurling food item in container against wall at high speed and saying he wished he could do the same to MD's head. pt eventually took court ordered meds PO. sensodyne and excedrin not available in pharmacy (pt requesting them). 04/10: continue tx. Pt accepting medication today. 04/11: Keeping to self. Lying in bed most of morning. Declined to meet with T/W. Pt stated, I'm fine. I don't need anything . Listening to headphones in room. Declined court ordered PO medications; received IM medications. Refused vital signs.continue tx plan. 04/12: got IMs yesterday, took PO this morning. sleepy, no concerns or complaints. 04/13: taking PO meds again. slept 7 hours. sleepy again mid morning refusing interview. continue current mgmt. 04/14: sleeping, rousable. denies being sedated or tired, says he's just bored. no questions or complaints. informed of need to check labs. check lithium level and thyroid labs tonight. 04/15: refusing labs. delusional re his brother harming him. verbally abusive toward MD. spat in floor. happy with improvement in proptosis. 04/16: Lying in bed. Calm. cooperative. guarded. Pt reports feeling tired this morning d/t poor sleep last night. Pt stated, I don't need anything. I didn't sleep well so I'm trying to catch up . denies any issues at this time. denies SI/HI/VH/AH. Continue current tx plan. 04/17: more calm today, less explosive. continue current mgmt. 04/18: continues more calm. tolerating moments of frustration without verbally attacking MD. slept only 2 hours overnight, however. continue current mgmt. 04/19 continues to push boundaries and limits with staff mike around cell phone- 04/20 - aggressive with staff and unpredictable- threw water pitcher at staff behind desk/-when seen by provider passive in bed-denying all compaints/sys- no insight 04/21: appears as per last week. more difficult behaviors around cell phone use, did throw pitcher of water at RN monday over phone use and was restrained. continue current mgmt. 04/22: continues to have conflict around cell phone use. consolidate zyprexa at HS to decrease daytime sedation. 1:1 allegra shift until peer he is accusing of not being a real patient and appears to be targeting discharges tomorrow. 04/23: lithium 0.6 on 600 BID. sleeping better, remains delusional (telling SW who is marginally younger than him that she could be his daughter). just changed zyprexa dosing as of last night. continue current regimen and observe for continued stabilization. T/C slight increase in lithium dosing. 04/24: Laying in bed. guarded. calm. did not want to get out of bed to meet with T/W. Pt reports feeling great today but declined to go into detail. listening to music on unit headphones. Pt stated, I'm fine. I don't need anything . denies any issues at this time. denies SI/HI/VH/AH. Continue current tx plan. 04/25: Laying in bed. keeping to self. calm. paranoid. Discussed incident that occurred with staff last evening. Pt stated, the counselor made up a lie yesterday. I said she looks like my ex-girlfriend. I know they are related. They want to make up a lie to irritate me. They are trying to talk to me so they can use recording devices and make me look some kind of way . listening to music on unit headphones. denies SI/HI/VH/AH. Continue current tx plan. 04/26: Continue current regimen and plans. Increase Zyprexa 20 mg q.h.s. fresh air break withheld 04/27: Continue current regimen and plans 04/28: somewhat less irritable and agitated than last week. however, over the weekend was claiming he was the father of a footballer on TV and also that a staff member is a twin of his ex-GF (and he pushed staff member). TFTs improving. continue current mgmt. 04/29: no change in presentation. continue current mgmt. 04/30: no irritable edge today. calm, pleasant. engaging in small talk. reality testing not pressed. continue current mgmt for now. 05/01: no change in presentation. continue current mgmt. 05/02: BPs coming down, DC beta joanne as pt has been refusing anyway. remains not antagonistic toward MD. using phone appropriately. continue current mgmt otherwise. 05/03 continue 05/04: remains delusional, irritable/labile when delusional system confronted. declines to sign TOMMY for [facility] records. continue current mgmt. 05/06: declining to meet with MD, but does meet with medical student. remains upset about yesterday's confrontation re his delusional system. 05/07: Active on unit. keeping to self. pacing unit hallway while listening to unit headphones. medication compliant. patient reports feeling good ; pt stated, I'm just waiting to leave here. I want to return to my life and do things like go grocery shopping . denies SI/HI/VH/AH. Continue current tx plan. 05/08: stable presentation, delusions not being brought to the surface daily. remains affectively improved from admission. continue current mgmt. 05/09: calm, pleasant. no questions or complaints. continue current mgmt. 05/10: no change in presentation. due to lack of improvement in dental infection Sx, DC PCN and start augmentin. 05/11: no change in presentation. continue current mgmt. 05/12: as for yesterday. dental pain improving a bit. 05/13: expressed to medical student that his brother poisoned him, causing his thyroid disease. no change in presentation. continue current mgmt. 05/14: Pacing unit hallway. keeping to self. patient reports feeling good today; denies any issues at this time. denies SI/HI/VH/AH. per nursing, slept 5 hours. Continue current tx plan. 05/15: slept 6 hours. otherwise isolative, difficult to engage. continue current mgmt. 05/16: slept 7 hours. as for yesterday otherwise. 05/17/25: Slept well, no issue with appetite, skinny and pretty tall. Compliant with medication. No side effects Calm and pleasant upon approach. Some what paranoid. Tangential, however denies other safety concerns. Questions if he is discharging soon. He is on antibiotic for 7 days for mouth pain/tooth pain. We will finish the 7 course up in antibiotic after tonight dose. Then discontinue. 05/18/25: Slept for 5 hours plus hours this morning. In bed most of the shift, no behavior issues. Denies other safety concerns. 05/19: in bed days, up eves. no change in presentation. continue current mgmt. 05/20: no change in presentation. check labs. 05/21: lithium low, TFTs mixed and not all back. increase lithium from 600 BID to 600/900. trend BUN/Cr, with slight elevation. otherwise continue current mgmt. 05/22: no change in presentation. continue current mgmt. 05/23: does not deny someone stole his sperm and impregnated his landlord's child with it. irritable. c/o dental pain, antibx restarted. otherwise continue current mgmt. 05/14: no change in mgt 05/25: more isolative today; no change in mgt 05/26: decreases in methimazole noted. continue psych regimen as is. pt refused to interact with MD today. 05/27: i'm sleeping. no change in presentation. labs tonight. 05/28: no change in behavior. lithium 0.66, BUN stable. continue current mgmt. 05/29: irritable. continue current mgmt. 05/30: no longer in single room. still not engaging, sleeping days. continue current mgmt. 05/31:laying in bed. declined to meet with T/W. pt stated, I want to sleep. I didn't sleep enough . Pt encouraged to reach out to staff if he needs anything. Continue current tx plan. 06/01: Similar to yesterday. laying in bed. Irritable. declined to meet with T/W and pulled bed sheets over head. pt stated, I don't want to talk. I want to sleep . difficult to engage. Continue current tx plan. 06/02: Similar to yesterday. laying in bed. Irritable. declined to meet with T/W. Observed getting drink from kitchen; T/W approached pt and asked if they could speak. patient declined to acknowledge T/W and walked past. Continue current tx plan. 06/03: no change in behavior. continue tx plan. 06/04/25: Passive engaged in the assessment, in bed mostly sleeping this morning which could be interfere with his nighttime. Cover body under the blanket Slept for 4-5 hours last night. Was medication compliant, attended no groups, isolative to self in room. No SI/SIB/HI/AVH expressed. 06/05: continue tx plan. 06/06: reports feeling fine ; continues guarded. difficult to engage. declining to meet with T/W. continue tx plan. 06/07/25: Slept for 4 hours at night, but has been sleeping most of the day yesterday as well. Spent majority of the shift in bed, was medication compliant. Passive engaged in the conversation. He said he will try to change the sleeping pattern so that he can be awake more during the daytime. Appear to be sedated in the morning. No safety behavior. 06/08/25: Slept for 3-4 hours last night, compliant with medications. Denies side effects, denies other safety concerns. Continued to encourage patient to up and down more than on the unit he spent most of the day sleeping. He is pleasant upon approach. No other behavior issues. Denied voices/hallucinations. Suicide thoughts or homicidal thoughts. 06/09: sleeping, minimally rousable. denies problems. continue current mgmt. 06/10: sleeping all day, up most of the night. minimally rousable. denies problems. continue current mgmt. per JAMAICA Arrington: Jean said when he leaves he can return to [facility] he was living with a lady there and can go back. He plans to get a job to pay off his debt. He said he owes money because they sent him back here due to losing his passport and he owes them money for the temporary emergency passport and the flight back to the . so his main focus is to get a job. he said he will try things here first and if it doesn't work out he plans to return to [place]. 06/11/25: Passively engaged in conversation while in bed sleeping/resting. Able to answer question appropriately, but seems to be minimized. Denies SI/SIB/HI/AVH. He slept 5 hours last night, spent most of the day in bed sleeping. Attempted to no groups, observed out to the afternoon in the subramanian near the nurse station. No change in presentation. Encourage groups,up and engaged in groups. 06/12: not engaging. no complaints or questions re med changes. cross-taper zyprexa in favor of invega, give MONTERO invega. tonight, decrease zyprexa to 15 mg and start invega 3 mg. otherwise continue current mgmt. 06/13: continues avoidant and disengaged. denies side effects from med change last night. informed cross-titration will advance tonight. decrease zyprexa to 10 mg tonight, increase paliperidone to 6 mg. plan to continue by 5 mg zyprexa and 3 mg paliperidone increments every several days as tolerated until zyprexa DCed and paliperidone at 12 mg QHS. once it is established pt is tolerating PO Paliperidone, invega sustenna to be administered. 06/14: Continue current regimen and plans 06/15: Continue current plans and regimen 06/16: irritable re neuroleptic change. denies side effects or problems with it, however. minimally engageable. increase invega to 9 QHS and decrfease zyprexa to 5 QHS. 06/17/25: Continued to be irritable regarding medication change/titration. However engaged in conversation, hyper verbal, paranoid, reports medication slow his thoughts down and he does not not like it. Poor insight and poor judgment. He thinks he only need lithium, not other medications. Remind patient to continue doing the sleep pattern changing. However his in bed mostly this morning. Slept for 4-5 hours last night. 06/18/25: Slept for 5 hours last night as he continues sleeping during daytime. Compliant with meds, did not c/o side effects.Passingly engaging in assessment. Denies safety concerns. Tolerate the tritation well. Will increase Inveag up to max of 12 tomorrow and Discontinue Olanzepine at HS. Continue to encourage up and out on day so he can sleep better at HS. 06/19/25: Patient slept for 5.5 hours last night, was medication compliant, mostly in his room yesterday but seen more often in the evening. Patient is awake in his room, listen to music, his morning tray was taken away and clean the area. He is very pleasant to talk to today, reports he feels good, denies side effects from medications, denies any safety concerns. Denies feeling sedation, denies anxiety/depression. He is receptive with the plan of medication over the weekends and next week, happy to hear about the medication plan. He also agree with the MONTERO Invega Sustenna on Monday. Encourage him to go out and attended to groups, he said that he will. Reported that he was out for groups a couple of times last week. Discontinue Haldol p.r.n.. Discontinue scheduled Zyprexa 5 mg at bedtime. Only on 10 Zyprexa at g IM daily p.r.n. as backup orders if refused Invega. Invega 12 mg at bedtime. Plan to monitor over the weekends and will give long-acting injection on Monday if tolerate with the p.o. well Reduce Seroquel 200 mg p.r.n. at bedtime to 100 p.r.n. at bedtime for insomnia. Seroquel 50 mg b.i.d. p.r.n. for agitation. Discontinue Motrin. Patient on lithium. Labs were for MondayJune 20: CMP, TSH with free T4. 06/20/25: In bed most of the day, was compliant with medication, however refused labs work. Re- scheduled for Monday. Continue with Invega 12 mg at bedtime. We will reassess and offer long-acting injection on Monday. Continue to encourage patient to get up and go to some groups. No safety concerns expressed. Minimal peer and staff interaction. 06/21: no change in presentation. start MONTERO monday. no s/e from invega. otherwise continue current mgmt. 06/22: stable. continue current mgmt. 06/23/25: More awake and alert. Review with patient regarding policy for his phone use BID 30min each time, patient is educated on compliant with policy. He asks for more 5-10 min extra headphone use at night on the weekends after 2300. Once again, redirected for unit rules. He agrees with MONTERO which is scheduled today. Discontinue Invega PO Invega Sustenna 234mg IM once. Will monitor for possible side effects and sedation. Will offer 156mg after 1 week. If mentaly stable with 156mg, will maintain at this dose, if not will offer 234mg Monthly. 06/24/25: Slept for 5 hours last night, but also went to bed around 7 tonight p.m. last night per his report. He also attended to groups in the afternoon yesterday. Compliant with medications. No side effects from Invega Sustenna. He is engaged in full conversation today why he is in bed, denies safety concerns. Observe he is on the unit, social with peers and staff in longer period of time. Appeared to be happy. He plans to take shower today. Reported that he was up early but he does not feel hungry in the morning. He is making progress, not too sedated during daytime since switching his medication. Appears to do well so far with Invega Sustenna. 06/25/25: Patient slept for 4 hours last night, however he reported was napping in the afternoon for couple hours which affect his sleeping pattern at night. Educate patient to not napping late in the evening. He is receptive. Compliant with medications, no side effects. He reports his did not shower yesterday but he will today. He is awake in his room not sleeping, engage in full conversation, no delusional or paranoid statements make. He is visible at times. Continued to improve in mood, engaging in other activities on the unit. Denies other safety concerns. Denies hallucinations. No irritability mood, not sedated during day time compared to when he was taking olanzapine. We will schedule Invega Sustenna 156 next Monday. Work with social studies department chair to see where he will return to. He probably needs VNA to manage medication. 06/26/25: He slept for 5 hours, compliant with medications. Denies side effects. He self-reported that he went to bed last night and was able to fall asleep by 01:00 and able to stay asleep whole night. Denies safety concerns. I spoke with him in length today regarding aftercare. He thinks he will go to the hospital in [place] to ask them regarding his heart condition. He thinks people was lying to get him to the hospital as he does not have mental health illnesses. He believes that he has been exactly the same he was seen he was a little, and at he able to remember everything in the past. He also reports that he used to use [facility] in [place]. At he does not want [facility] application. I explained to him that in order to be a candidate patient have to be a safe that he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
--- NOTE | 2025-07-02 09:49 | P.PNPSI_ITS ---
Subjective Subjective Date of Service: 07/02/25 Reason For Visit: psychotic disorder Subjective Notes: [place] Order and Section 8 Healthcare Proxy: No Guardianship: No Medical Problems Affecting Mental Status: No Interim History: Medical record and nursing notes reviewed; case discussed during rounds with team/nursing staff, and met with patient for supportive therapy/psychoeducation, as well as medication management. Slept for 6 hours, compliant with meds, intermittently attended groups. No behavior issues. Worry/anxious regarding DMH services and assessment coming this Monday. He is paranoid regarding what his brother will talk about when staff call. He thinks his brother will make up story and lie to us regarding reasons brought him to the hospital. Denies safety concerns. Denies hallucination. Continue to have poor insight of mental illnesses. Medication Compliance: Yes Side effects from medications: No Attending Groups: Intermittent Review of Systems Acute medical concerns: No Medical Review of Systems: unchanged Review of Systems Review of Systems Constitutional: Denies fatigue and Denies fever(s) Cardiovascular: Denies chest pain and Denies dyspnea Respiratory: Denies dyspnea Gastrointestinal: Denies abdominal pain Psychiatric: denies suicidal ideation Endocrine: Denies fatigue Yes all other systems are reviewed and are negative Mental Status Exam Mental Status Exam Narrative: Intermittently in milieu, alert and awake, exopthalmos, actively engaged in full lengthy conversation., denies SI/SIB/HI/AVH, more logical. Denies safety concerns. No SI//SIB/HI/AVH expressed.Visible, social, no irritable mood. calm, pleasant and cooperative. More anxious/worry about future/DMH outcome. Diagnostics Vital Signs (24Hr): Vital Signs - 24 hr 07/01/25 20:00 Temperature 98.6 F Pulse Rate 83 Respiratory Rate 16 Blood Pressure 134/69 Pulse Oximetry 100 Oxygen Delivery Method Room Air BMI result Body Mass Index 24.2 Labs 06/25/25 08:02 06/20/25 20:35 Medications Medications Current Medications Acetaminophen (Acetaminophen 325 Mg Tablet) 650 mg PO Q4H PRN PRN Reason: Pain, Mild (Pain Scale 1-3) Al Hydroxide/Mg Hydroxide (Magnesium Hydrox/Alum Hydrox 30 Ml Oral.Susp) 30 ml PO Q6H PRN PRN Reason: Heart burn Benzocaine (Benzocaine 20 % Oral Gel 14 Gm Tube) 1 appl MUCOUS MEM QID PRN; Protocol PRN Reason: Mouth Sore Pain Last Admin: 04/26/25 18:33 Dose: 1 appl Diazepam (Diazepam 10 Mg/2 Ml Cartridge) 10 mg IM BID PRN PRN Reason: refusal of lithium, per [place] Last Admin: 04/11/25 09:56 Dose: 10 mg [place] Carbonate ([place] Carbonate Er 300 Mg Tablet.Er) 600 mg PO DAILY [facility] Last Admin: 07/02/25 09:29 Dose: 600 mg [place] Carbonate ([place] Carbonate Er 450 Mg Tablet.Er) 900 mg PO DAILY@2300 [facility] Last Admin: 07/01/25 23:41 Dose: 900 mg Magnesium Hydroxide (Milk Of Magnesia 30 Ml Oral.Susp) 30 ml PO DAILY PRN PRN Reason: Constipation Methimazole (Methimazole 10 Mg Tablet) 10 mg PO DAILY [facility] Last Admin: 07/02/25 09:29 Dose: 10 mg Nicotine (Nicotine 21 Mg Patch.Td24) 21 mg TRANSDERMA DAILY PRN PRN Reason: nicotine cravings Last Admin: 04/12/25 17:06 Dose: 21 mg Nicotine Polacrilex (Nicotine Polacrilex Lozenge 2 Mg Lozenge) 2 mg BUCCAL Q1H PRN PRN Reason: Nicotine Cravings Last Admin: 04/30/25 08:49 Dose: 2 mg Patient Own Medication Excedrin 250/250/65mg 2 each PO Q8H PRN PRN Reason: Migraine Headache Last Admin: 04/18/25 18:03 Dose: 2 each Olanzapine (Olanzapine 10 Mg Vial) 10 mg IM DAILY PRN PRN Reason: if refuse Invega PO Quetiapine Fumarate (Quetiapine Fumarate 100 Mg Tablet) 100 mg PO BEDTIME PRN PRN Reason: insomnia Quetiapine Fumarate (Quetiapine Fumarate 50 Mg Tablet) 50 mg PO BID PRN PRN Reason: agitation Allergies Allergies Allergy/AdvReac Type Severity Reaction Status Date / Time No Known Allergies Allergy Verified 03/26/25 14:24 Assessment & Plan Assessment & Plan (1) Graves disease: Status: Acute Code(s): E05.00 - Thyrotoxicosis with diffuse goiter without thyrotoxic crisis or storm Assessment and Plan: Hyperthyroidism/Graves disease. He will need follow up with endocrinology as an outpatient He will also need a primary care doctor referral as an outpatient Discussed with Dr. Bejarano, patient will need free T4 weekly Decrease Methimazole to 15 mgs daily for three days and then 10 mgs daily- discussed with patient he is aware of plan and rationale. TSH and free T4 every 4 weeks. No need to draw thyroid stimulation immunology or TSH receptor AB (2) Dental abscess: Status: Acute Code(s): K04.7 - Periapical abscess without sinus Assessment and Plan: Carious tooth/dental infection Recently treated with PEN VK 500 mg q.6 hours for 7 days Patient will need follow up with dentist on discharge for tooth extraction Motrin helping pain. (3) Becca: Status: Acute Code(s): F30.9 - Manic episode, unspecified Plan 03/26: offer lithium and seroquel for becca. continue methimazole and beta joanne for hyperthyroidism as started at [facility]. trend TFTs. 12b. 03/27: taking methimazole and beta joanne. refused HS meds last night, took morning meds today. continue to encourage medication compliance. 03/28: intermittently taking meds. wants all meds in morning. pressured, manic, paranoid delusions. encouraged to take lithium but states he will not. all meds ordered for morning. 03/29: Keeping to self. no groups. observed laying in bed listening to music on unit headphones. pleasant. Pt reports feeling good today and sleeping well. declined lithium and zyprexa. denies SI/HI/VH/AH. continue current tx plan. 03/30:Irritable. upset he was unable to use his personal hygiene products. Per nursing, pt threatened staff and squeezed tooth paste throughout unit hallway to show his frustration. Pt was able to calm down after speaking with security. declined medications. 03/31: Keeping to self. laying in bed listening to music. refused medications. calm today. Patient reports feeling great ; pt stated, nothing is wrong with me. I'm waiting so I can leave tomorrow. I'm hoping for the best . denies SI/HI/VH/AH. per nursing, slept 6 hours. Continue current tx plan. 04/01: variably calm on the unit versus highly agitated. paranoid delusions, irritability, lability continue. seems to believe MD has met him prior to the present hospitalization and is stalking him. believes brother behind conspiracy to have him psychiatrically hospitalized. has been refusing all medications, including for hyperthyroidism. informed he would be filed on. filed. continue to offer medications. 04/02: continues agitated, belittling, verbally aggressive, refusing all medications including for hyperthyroidism. continue to offer medication. 04/03: paranoid there is a conspiracy to hospitalize him. threatening to stick a stick in staff once he is released by municipal court judge. insists his hyperthyroidism was cured at [facility]. asserts there is NOTHING wrong with him. continue to offer medication. 04/04: irritable, rejecting. verbally abuses MD and sends him away: see you on monday [in court]. continue to offer medication for thyroid condition and mental illness. 04/05 continue tx. suspicious and guarded, accusatory, verbal threats to hurt staff and peers 04/06 intrusive, posturing towards staff and peer who he thinks is not real and is an impostor, continues to make verbal threats to harm him but thinks that because he is not real he may not experience any pain. 04/07: threatening statements and behaviors of yesterday noted. pt sleeping this morning, dismissive of MD. 04/08: asleep days. committed and meds ordered by court. 04/09: on being informed of court order and MD insisting on meds, pt escalated to hurling food item in container against wall at high speed and saying he wished he could do the same to MD's head. pt eventually took court ordered meds PO. sensodyne and excedrin not available in pharmacy (pt requesting them). 04/10: continue tx. Pt accepting medication today. 04/11: Keeping to self. Lying in bed most of morning. Declined to meet with T/W. Pt stated, I'm fine. I don't need anything . Listening to headphones in room. Declined court ordered PO medications; received IM medications. Refused vital signs.continue tx plan. 04/12: got IMs yesterday, took PO this morning. sleepy, no concerns or complaints. 04/13: taking PO meds again. slept 7 hours. sleepy again mid morning refusing interview. continue current mgmt. 04/14: sleeping, rousable. denies being sedated or tired, says he's just bored. no questions or complaints. informed of need to check labs. check lithium level and thyroid labs tonight. 04/15: refusing labs. delusional re his brother harming him. verbally abusive toward MD. spat in floor. happy with improvement in proptosis. 04/16: Lying in bed. Calm. cooperative. guarded. Pt reports feeling tired this morning d/t poor sleep last night. Pt stated, I don't need anything. I didn't sleep well so I'm trying to catch up . denies any issues at this time. denies SI/HI/VH/AH. Continue current tx plan. 04/17: more calm today, less explosive. continue current mgmt. 04/18: continues more calm. tolerating moments of frustration without verbally attacking MD. slept only 2 hours overnight, however. continue current mgmt. 04/19 continues to push boundaries and limits with staff mike around cell phone- 04/20 - aggressive with staff and unpredictable- threw water pitcher at staff behind desk/-when seen by provider passive in bed-denying all compaints/sys- no insight 04/21: appears as per last week. more difficult behaviors around cell phone use, did throw pitcher of water at RN monday over phone use and was restrained. continue current mgmt. 04/22: continues to have conflict around cell phone use. consolidate zyprexa at HS to decrease daytime sedation. 1:1 allegra shift until peer he is accusing of not being a real patient and appears to be targeting discharges tomorrow. 04/23: lithium 0.6 on 600 BID. sleeping better, remains delusional (telling SW who is marginally younger than him that she could be his daughter). just changed zyprexa dosing as of last night. continue current regimen and observe for continued stabilization. T/C slight increase in lithium dosing. 04/24: Laying in bed. guarded. calm. did not want to get out of bed to meet with T/W. Pt reports feeling great today but declined to go into detail. listening to music on unit headphones. Pt stated, I'm fine. I don't need anything . denies any issues at this time. denies SI/HI/VH/AH. Continue current tx plan. 04/25: Laying in bed. keeping to self. calm. paranoid. Discussed incident that occurred with staff last evening. Pt stated, the counselor made up a lie yesterday. I said she looks like my ex-girlfriend. I know they are related. They want to make up a lie to irritate me. They are trying to talk to me so they can use recording devices and make me look some kind of way . listening to music on unit headphones. denies SI/HI/VH/AH. Continue current tx plan. 04/26: Continue current regimen and plans. Increase Zyprexa 20 mg q.h.s. fresh air break withheld 04/27: Continue current regimen and plans 04/28: somewhat less irritable and agitated than last week. however, over the weekend was claiming he was the father of a footballer on TV and also that a staff member is a twin of his ex-GF (and he pushed staff member). TFTs improving. continue current mgmt. 04/29: no change in presentation. continue current mgmt. 04/30: no irritable edge today. calm, pleasant. engaging in small talk. reality testing not pressed. continue current mgmt for now. 05/01: no change in presentation. continue current mgmt. 05/02: BPs coming down, DC beta joanne as pt has been refusing anyway. remains not antagonistic toward MD. using phone appropriately. continue current mgmt otherwise. 05/03 continue 05/04: remains delusional, irritable/labile when delusional system confronted. declines to sign TOMMY for [facility] records. continue current mgmt. 05/06: declining to meet with MD, but does meet with medical student. remains upset about yesterday's confrontation re his delusional system. 05/07: Active on unit. keeping to self. pacing unit hallway while listening to unit headphones. medication compliant. patient reports feeling good ; pt stated, I'm just waiting to leave here. I want to return to my life and do things like go grocery shopping . denies SI/HI/VH/AH. Continue current tx plan. 05/08: stable presentation, delusions not being brought to the surface daily. remains affectively improved from admission. continue current mgmt. 05/09: calm, pleasant. no questions or complaints. continue current mgmt. 05/10: no change in presentation. due to lack of improvement in dental infection Sx, DC PCN and start augmentin. 05/11: no change in presentation. continue current mgmt. 05/12: as for yesterday. dental pain improving a bit. 05/13: expressed to medical student that his brother poisoned him, causing his thyroid disease. no change in presentation. continue current mgmt. 05/14: Pacing unit hallway. keeping to self. patient reports feeling good today; denies any issues at this time. denies SI/HI/VH/AH. per nursing, slept 5 hours. Continue current tx plan. 05/15: slept 6 hours. otherwise isolative, difficult to engage. continue current mgmt. 05/16: slept 7 hours. as for yesterday otherwise. 05/17/25: Slept well, no issue with appetite, skinny and pretty tall. Compliant with medication. No side effects Calm and pleasant upon approach. Some what paranoid. Tangential, however denies other safety concerns. Questions if he is discharging soon. He is on antibiotic for 7 days for mouth pain/tooth pain. We will finish the 7 course up in antibiotic after tonight dose. Then discontinue. 05/18/25: Slept for 5 hours plus hours this morning. In bed most of the shift, no behavior issues. Denies other safety concerns. 05/19: in bed days, up eves. no change in presentation. continue current mgmt. 05/20: no change in presentation. check labs. 05/21: lithium low, TFTs mixed and not all back. increase lithium from 600 BID to 600/900. trend BUN/Cr, with slight elevation. otherwise continue current mgmt. 05/22: no change in presentation. continue current mgmt. 05/23: does not deny someone stole his sperm and impregnated his landlord's child with it. irritable. c/o dental pain, antibx restarted. otherwise continue current mgmt. 05/14: no change in mgt 05/25: more isolative today; no change in mgt 05/26: decreases in methimazole noted. continue psych regimen as is. pt refused to interact with MD today. 05/27: i'm sleeping. no change in presentation. labs tonight. 05/28: no change in behavior. lithium 0.66, BUN stable. continue current mgmt. 05/29: irritable. continue current mgmt. 05/30: no longer in single room. still not engaging, sleeping days. continue current mgmt. 05/31:laying in bed. declined to meet with T/W. pt stated, I want to sleep. I didn't sleep enough . Pt encouraged to reach out to staff if he needs anything. Continue current tx plan. 06/01: Similar to yesterday. laying in bed. Irritable. declined to meet with T/W and pulled bed sheets over head. pt stated, I don't want to talk. I want to sleep . difficult to engage. Continue current tx plan. 06/02: Similar to yesterday. laying in bed. Irritable. declined to meet with T/W. Observed getting drink from kitchen; T/W approached pt and asked if they could speak. patient declined to acknowledge T/W and walked past. Continue current tx plan. 06/03: no change in behavior. continue tx plan. 06/04/25: Passive engaged in the assessment, in bed mostly sleeping this morning which could be interfere with his nighttime. Cover body under the blanket Slept for 4-5 hours last night. Was medication compliant, attended no groups, isolative to self in room. No SI/SIB/HI/AVH expressed. 06/05: continue tx plan. 06/06: reports feeling fine ; continues guarded. difficult to engage. declining to meet with T/W. continue tx plan. 06/07/25: Slept for 4 hours at night, but has been sleeping most of the day yesterday as well. Spent majority of the shift in bed, was medication compliant. Passive engaged in the conversation. He said he will try to change the sleeping pattern so that he can be awake more during the daytime. Appear to be sedated in the morning. No safety behavior. 06/08/25: Slept for 3-4 hours last night, compliant with medications. Denies side effects, denies other safety concerns. Continued to encourage patient to up and down more than on the unit he spent most of the day sleeping. He is pleasant upon approach. No other behavior issues. Denied voices/hallucinations. Suicide thoughts or homicidal thoughts. 8/4: sleeping, minimally rousable. denies problems. continue current mgmt. 8: sleeping all day, up most of the night. minimally rousable. denies problems. continue current mgmt. per JAMAICA Arrington: Jean said when he leaves he can return to [facility]. he was living with a lady there and can go back. He plans to get a job to pay off his debt. He said he owes money because they sent him back here due to losing his passport and he owes them money for the temporary emergency passport and the flight back to the . so his main focus is to get a job. he said he will try things here first and if it doesn't work out he plans to return to [place]. 06/11/25: Passively engaged in conversation while in bed sleeping/resting. Able to answer question appropriately, but seems to be minimized. Denies SI/SIB/HI/AVH. He slept 5 hours last night, spent most of the day in bed sleeping. Attempted to no groups, observed out to the afternoon in the subramanian near the nurse station. No change in presentation. Encourage groups,up and engaged in groups. 06/12: not engaging. no complaints or questions re med changes. cross-taper zyprexa in favor of invega, give MONTERO invega. tonight, decrease zyprexa to 15 mg and start invega 3 mg. otherwise continue current mgmt. 06/13: continues avoidant and disengaged. denies side effects from med change last night. informed cross-titration will advance tonight. decrease zyprexa to 10 mg tonight, increase paliperidone to 6 mg. plan to continue by 5 mg zyprexa and 3 mg paliperidone increments every several days as tolerated until zyprexa DCed and paliperidone at 12 mg QHS. once it is established pt is tolerating PO Paliperidone, invega sustenna to be administered. 06/14: Continue current regimen and plans 06/15: Continue current plans and regimen 06/16: irritable re neuroleptic change. denies side effects or problems with it, however. minimally engageable. increase invega to 9 QHS and decrfease zyprexa to 5 QHS. 06/17/25: Continued to be irritable regarding medication change/titration. However engaged in conversation, hyper verbal, paranoid, reports medication slow his thoughts down and he does not not like it. Poor insight and poor judgment. He thinks he only need lithium, not other medications. Remind patient to continue doing the sleep pattern changing. However his in bed mostly this morning. Slept for 4-5 hours last night. 06/18/25: Slept for 5 hours last night as he continues sleeping during daytime. Compliant with meds, did not c/o side effects.Passingly engaging in assessment. Denies safety concerns. Tolerate the tritation well. Will increase Inveag up to max of 12 tomorrow and Discontinue Olanzepine at HS. Continue to encourage up and out on day so he can sleep better at HS. 06/19/25: Patient slept for 5.5 hours last night, was medication compliant, mostly in his room yesterday but seen more often in the evening. Patient is awake in his room, listen to music, his morning tray was taken away and clean the area. He is very pleasant to talk to today, reports he feels good, denies side effects from medications, denies any safety concerns. Denies feeling sedation, denies anxiety/depression. He is receptive with the plan of medication over the weekends and next week, happy to hear about the medication plan. He also agree with the MONTERO Invega Sustenna on Monday. Encourage him to go out and attended to groups, he said that he will. Reported that he was out for groups a couple of times last week. Discontinue Haldol p.r.n.. Discontinue scheduled Zyprexa 5 mg at bedtime. Only on Zyprexa at g IM daily p.r.n. as backup orders if refused Invega. Invega 12 mg at bedtime. Plan to monitor over the weekends and will give long- acting injection on Monday if tolerate with the p.o. well Reduce Seroquel 200 mg p.r.n. at bedtime to 100 p.r.n. at bedtime for insomnia. Seroquel 50 mg b.i.d. p.r.n. for agitation. Discontinue Motrin. Patient on lithium. Labs were for MondayJune 20: CMP, TSH with free T4. 06/20/25: In bed most of the day, was compliant with medication, however refused labs work. Re- scheduled for Monday. Continue with Invega 12 mg at bedtime. We will reassess and offer long-acting injection on Monday. Continue to encourage patient to get up and go to some groups. No safety concerns expressed. Minimal peer and staff interaction. 06/21: no change in presentation. start MONTERO monday. no s/e from invega. otherwise continue current mgmt. 06/22: stable. continue current mgmt. 06/23/25: More awake and alert. Review with patient regarding policy for his phone use BID 30min each time, patient is educated on compliant with policy. He asks for more 5-10 min extra headphone use at night on the weekends after 2300. Once again, redirected for unit rules. He agrees with MONTERO which is scheduled today. Discontinue Invega PO Invega Sustenna 234mg IM once. Will monitor for possible side effects and sedation. Will offer 156mg after 1 week. If mentaly stable with 156mg, will maintain at this dose, if not will offer 234mg Monthly. 06/24/25: Slept for 5 hours last night, but also went to bed around 7 tonight p.m. last night per his report. He also attended to groups in the afternoon yesterday. Compliant with medications. No side effects from Invega Sustenna. He is engaged in full conversation today why he is in bed, denies safety concerns. Observe he is on the unit, social with peers and staff in longer period of time. Appeared to be happy. He plans to take shower today. Reported that he was up early but he does not feel hungry in the morning. He is making progress, not too sedated during daytime since switching his medication. Appears to do well so far with Invega Sustenna. 06/25/25: Patient slept for 4 hours last night, however he reported was napping in the afternoon for couple hours which affect his sleeping pattern at night. Educate patient to not napping late in the evening. He is receptive. Compliant with medications, no side effects. He reports his did not shower yesterday but he will today. He is awake in his room not sleeping, engage in full conversation, no delusional or paranoid statements make. He is visible at times. Continued to improve in mood, engaging in other activities on the unit. Denies other safety concerns. Denies hallucinations. No irritability mood, not sedated during day time compared to when he was taking olanzapine. We will schedule Invega Sustenna 156 next Monday. Work with geriatric social worker to see where he will return to. He probably needs [facility] to manage medication. 06/26/25: He slept for 5 hours, compliant with medications. Denies side effects. He self-reported that he went to bed last night and was able to fall asleep by 01:00 and able to stay asleep whole night. Denies safety concerns. I spoke with him in length today regarding aftercare. He thinks he will go to the hospital in [place] to ask them regarding his heart condition. He thinks people was lying to get him to the hospital as he does not have mental health illnesses. He believes that he has been exactly the same he was seen he was a little, and at he able to remember everything in the past. He also reports that he used to use [facility] in [place]. At he does not want [facility] application. I explained to him that in order to be a candidate patient have to be a safe that he has mental health issues, so people can submit the application, and from the [facility] worker will contact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
[2025-07-02 20:00] VITALS: BP 134/74; PULSE 82; RESP 16; TEMP 36.9; O2SAT 99
[2025-07-03 07:00] VITALS: BMI 23.8
[2025-07-03] MEDS: EXCEDRIN 2 EACH PO (08:24)
--- NOTE | 2025-07-03 16:55 | HO.PSYCHPN ---
Subjective Subjective Date of Service: 07/03/25 Reason For Visit: psychotic disorder Subjective Notes: [place] Order and Section 8 Healthcare Proxy: No Guardianship: No Medical Problems Affecting Mental Status: No Interim History: Medical record and nursing notes reviewed; case discussed during rounds with team/nursing staff, and met with patient for supportive therapy/psychoeducation, as well as medication management. Patient slept for 8 hours which is much more hours than normal the past weeks, continued to improve with slept parents, compliant with medications. Reported that he has severe headache earlier today, took Excedrin and is tolerable during assessment. Patient was talking about how he was paranoid when he was at [facility] due to lack of sleep. Educate patient what is mental health illnesses. He is very simple, accepted education. Isolate this morning in his room. He plans to just rest this morning due to the headache. Denies safety concerns. Calm, pleasant, and cooperative upon approach. Explained more in details of of [facility] services. He is looking forward to having assessment tomorrow by 10:00 with them. Medication Compliance: Yes Side effects from medications: No Attending Groups: Intermittent Review of Systems Acute medical concerns: No Medical Review of Systems: unchanged Review of Systems Review of Systems Constitutional: Denies fatigue and Denies fever(s) Cardiovascular: Denies chest pain and Denies dyspnea Respiratory: Denies dyspnea Gastrointestinal: Denies abdominal pain Psychiatric: denies suicidal ideation Endocrine: Denies fatigue Yes all other systems are reviewed and are negative Mental Status Exam Mental Status Exam Narrative: Intermittently in milieu, alert and awake, exopthalmos, actively engaged in full normal conversation., denies SI/SIB/HI/AVH, more logical. Denies safety concerns. No SI//SIB/HI/AVH expressed.Visible, social, no irritable mood. calm, pleasant and cooperative. More anxious/worry about future/DMH outcome. Diagnostics Vital Signs (24Hr): Vital Signs - 24 hr 07/02/25 20:00 Temperature 98.4 F Pulse Rate 82 Respiratory Rate 16 Blood Pressure 134/74 Pulse Oximetry 99 Oxygen Delivery Method Room Air BMI result Body Mass Index 23.8 Labs 06/25/25 08:02 06/20/25 20:35 Medications Medications Current Medications Acetaminophen (Acetaminophen 325 Mg Tablet) 650 mg PO Q4H PRN PRN Reason: Pain, Mild (Pain Scale 1-3) Al Hydroxide/Mg Hydroxide (Magnesium Hydrox/Alum Hydrox 30 Ml Oral.Susp) 30 ml PO Q6H PRN PRN Reason: Heart burn Benzocaine (Benzocaine 20 % Oral Gel 14 Gm Tube) 1 appl MUCOUS MEM QID PRN; Protocol PRN Reason: Mouth Sore Pain Last Admin: 04/26/25 18:33 Dose: 1 appl Diazepam (Diazepam 10 Mg/2 Ml Cartridge) 10 mg IM BID PRN PRN Reason: refusal of lithium, per everett Last Admin: 04/11/25 09:56 Dose: 10 mg Vernonia Carbonate (Vernonia Carbonate Er 300 Mg Tablet.Er) 600 mg PO DAILY [facility] Last Admin: 07/03/25 08:24 Dose: 600 mg Vernonia Carbonate (Vernonia Carbonate Er 450 Mg Tablet.Er) 900 mg PO DAILY@2300 [facility] Last Admin: 07/02/25 21:54 Dose: 900 mg Magnesium Hydroxide (Milk Of Magnesia 30 Ml Oral.Susp) 30 ml PO DAILY PRN PRN Reason: Constipation Methimazole (Methimazole 10 Mg Tablet) 10 mg PO DAILY [facility] Last Admin: 07/03/25 08:24 Dose: 10 mg Nicotine (Nicotine 21 Mg Patch.Td24) 21 mg TRANSDERMA DAILY PRN PRN Reason: nicotine cravings Last Admin: 04/12/25 17:06 Dose: 21 mg Nicotine Polacrilex (Nicotine Polacrilex Lozenge 2 Mg Lozenge) 2 mg BUCCAL Q1H PRN PRN Reason: Nicotine Cravings Last Admin: 04/30/25 08:49 Dose: 2 mg Patient Own Medication Excedrin 250/250/65mg 2 each PO Q8H PRN PRN Reason: Migraine Headache Last Admin: 07/03/25 08:24 Dose: 2 each Olanzapine (Olanzapine 10 Mg Vial) 10 mg IM DAILY PRN PRN Reason: if refuse Invega PO Quetiapine Fumarate (Quetiapine Fumarate 100 Mg Tablet) 100 mg PO BEDTIME PRN PRN Reason: insomnia Quetiapine Fumarate (Quetiapine Fumarate 50 Mg Tablet) 50 mg PO BID PRN PRN Reason: agitation Allergies Allergies Allergy/AdvReac Type Severity Reaction Status Date / Time No Known Allergies Allergy Verified 03/26/25 14:24 Assessment & Plan Assessment & Plan (1) Graves disease: Status: Acute Code(s): E05.00 - Thyrotoxicosis with diffuse goiter without thyrotoxic crisis or storm Assessment and Plan: Hyperthyroidism/Graves disease. He will need follow up with endocrinology as an outpatient He will also need a primary care doctor referral as an outpatient Discussed with Dr. Bejarano, patient will need free T4 weekly Decrease Methimazole to 15 mgs daily for three days and then 10 mgs daily- discussed with patient he is aware of plan and rationale. TSH and free T4 every 4 weeks. No need to draw thyroid stimulation immunology or TSH receptor AB (2) Dental abscess: Status: Acute Code(s): K04.7 - Periapical abscess without sinus Assessment and Plan: Carious tooth/dental infection Recently treated with PEN VK 500 mg q.6 hours for 7 days Patient will need follow up with dentist on discharge for tooth extraction Motrin helping pain. (3) Becca: Status: Acute Code(s): F30.9 - Manic episode, unspecified Plan 03/26: offer lithium and seroquel for becca. continue methimazole and beta joanne for hyperthyroidism as started at [facility]. trend TFTs. 12b. 03/27: taking methimazole and beta joanne. refused HS meds last night, took morning meds today. continue to encourage medication compliance. 03/28: intermittently taking meds. wants all meds in morning. pressured, manic, paranoid delusions. encouraged to take lithium but states he will not. all meds ordered for morning. 03/29: Keeping to self. no groups. observed laying in bed listening to music on unit headphones. pleasant. Pt reports feeling good today and sleeping well. declined lithium and zyprexa. denies SI/HI/VH/AH. continue current tx plan. 03/30:Irritable. upset he was unable to use his personal hygiene products. Per nursing, pt threatened staff and squeezed tooth paste throughout unit hallway to show his frustration. Pt was able to calm down after speaking with security. declined medications. 03/31: Keeping to self. laying in bed listening to music. refused medications. calm today. Patient reports feeling great ; pt stated, nothing is wrong with me. I'm waiting so I can leave tomorrow. I'm hoping for the best . denies SI/HI/VH/AH. per nursing, slept 6 hours. Continue current tx plan. 04/01: variably calm on the unit versus highly agitated. paranoid delusions, irritability, lability continue. seems to believe MD has met him prior to the present hospitalization and is stalking him. believes brother behind conspiracy to have him psychiatrically hospitalized. has been refusing all medications, including for hyperthyroidism. informed he would be filed on. filed. continue to offer medications. 04/02: continues agitated, belittling, verbally aggressive, refusing all medications including for hyperthyroidism. continue to offer medication. 04/03: paranoid there is a conspiracy to hospitalize him. threatening to stick a stick in staff once he is released by university archivist. insists his hyperthyroidism was cured at [facility]. asserts there is NOTHING wrong with him. continue to offer medication. 04/04: irritable, rejecting. verbally abuses MD and sends him away: see you on monday [in court]. continue to offer medication for thyroid condition and mental illness. 04/05 continue tx. suspicious and guarded, accusatory, verbal threats to hurt staff and peers 04/06 intrusive, posturing towards staff and peer who he thinks is not real and is an impostor, continues to make verbal threats to harm him but thinks that because he is not real he may not experience any pain. 04/07: threatening statements and behaviors of yesterday noted. pt sleeping this morning, dismissive of MD. 04/08: asleep days. committed and meds ordered by court. 04/09: on being informed of court order and MD insisting on meds, pt escalated to hurling food item in container against wall at high speed and saying he wished he could do the same to MD's head. pt eventually took court ordered meds PO. sensodyne and excedrin not available in pharmacy (pt requesting them). 04/10: continue tx. Pt accepting medication today. 04/11: Keeping to self. Lying in bed most of morning. Declined to meet with T/W. Pt stated, I'm fine. I don't need anything . Listening to headphones in room. Declined court ordered PO medications; received IM medications. Refused vital signs.continue tx plan. 04/12: got IMs yesterday, took PO this morning. sleepy, no concerns or complaints. 04/13: taking PO meds again. slept 7 hours. sleepy again mid morning refusing interview. continue current mgmt. 04/14: sleeping, rousable. denies being sedated or tired, says he's just bored. no questions or complaints. informed of need to check labs. check lithium level and thyroid labs tonight. 04/15: refusing labs. delusional re his brother harming him. verbally abusive toward MD. spat in floor. happy with improvement in proptosis. 04/16: Lying in bed. Calm. cooperative. guarded. Pt reports feeling tired this morning d/t poor sleep last night. Pt stated, I don't need anything. I didn't sleep well so I'm trying to catch up . denies any issues at this time. denies SI/HI/VH/AH. Continue current tx plan. 04/17: more calm today, less explosive. continue current mgmt. 04/18: continues more calm. tolerating moments of frustration without verbally attacking MD. slept only 2 hours overnight, however. continue current mgmt. 04/19 continues to push boundaries and limits with staff mike around cell phone- 04/20 - aggressive with staff and unpredictable- threw water pitcher at staff behind desk/-when seen by provider passive in bed-denying all compaints/sys- no insight 04/21: appears as per last week. more difficult behaviors around cell phone use, did throw pitcher of water at RN monday over phone use and was restrained. continue current mgmt. 04/22: continues to have conflict around cell phone use. consolidate zyprexa at HS to decrease daytime sedation. 1:1 allegra shift until peer he is accusing of not being a real patient and appears to be targeting discharges tomorrow. 04/23: lithium 0.6 on 600 BID. sleeping better, remains delusional (telling SW who is marginally younger than him that she could be his daughter). just changed zyprexa dosing as of last night. continue current regimen and observe for continued stabilization. T/C slight increase in lithium dosing. 04/24: Laying in bed. guarded. calm. did not want to get out of bed to meet with T/W. Pt reports feeling great today but declined to go into detail. listening to music on unit headphones. Pt stated, I'm fine. I don't need anything . denies any issues at this time. denies SI/HI/VH/AH. Continue current tx plan. 04/25: Laying in bed. keeping to self. calm. paranoid. Discussed incident that occurred with staff last evening. Pt stated, the counselor made up a lie yesterday. I said she looks like my ex-girlfriend. I know they are related. They want to make up a lie to irritate me. They are trying to talk to me so they can use recording devices and make me look some kind of way . listening to music on unit headphones. denies SI/HI/VH/AH. Continue current tx plan. 04/26: Continue current regimen and plans. Increase Zyprexa 20 mg q.h.s. fresh air break withheld 04/27: Continue current regimen and plans 04/28: somewhat less irritable and agitated than last week. however, over the weekend was claiming he was the father of a footballer on TV and also that a staff member is a twin of his ex-GF (and he pushed staff member). TFTs improving. continue current mgmt. 04/29: no change in presentation. continue current mgmt. 04/30: no irritable edge today. calm, pleasant. engaging in small talk. reality testing not pressed. continue current mgmt for now. 05/01: no change in presentation. continue current mgmt. 05/02: BPs coming down, DC beta joanne as pt has been refusing anyway. remains not antagonistic toward MD. using phone appropriately. continue current mgmt otherwise. 05/03 continue 05/04: remains delusional, irritable/labile when delusional system confronted. declines to sign TOMMY for [facility] records. continue current mgmt. 05/06: declining to meet with MD, but does meet with medical student. remains upset about yesterday's confrontation re his delusional system. 05/07: Active on unit. keeping to self. pacing unit hallway while listening to unit headphones. medication compliant. patient reports feeling good ; pt stated, I'm just waiting to leave here. I want to return to my life and do things like go grocery shopping . denies SI/HI/VH/AH. Continue current tx plan. 05/08: stable presentation, delusions not being brought to the surface daily. remains affectively improved from admission. continue current mgmt. 05/09: calm, pleasant. no questions or complaints. continue current mgmt. 05/10: no change in presentation. due to lack of improvement in dental infection Sx, DC PCN and start augmentin. 05/11: no change in presentation. continue current mgmt. 05/12: as for yesterday. dental pain improving a bit. 05/13: expressed to medical student that his brother poisoned him, causing his thyroid disease. no change in presentation. continue current mgmt. 05/14: Pacing unit hallway. keeping to self. patient reports feeling good today; denies any issues at this time. denies SI/HI/VH/AH. per nursing, slept 5 hours. Continue current tx plan. 05/15: slept 6 hours. otherwise isolative, difficult to engage. continue current mgmt. 05/16: slept 7 hours. as for yesterday otherwise. 05/17/25: Slept well, no issue with appetite, skinny and pretty tall. Compliant with medication. No side effects Calm and pleasant upon approach. Some what paranoid. Tangential, however denies other safety concerns. Questions if he is discharging soon. He is on antibiotic for 7 days for mouth pain/tooth pain. We will finish the 7 course up in antibiotic after tonight dose. Then discontinue. 05/18/25: Slept for 5 hours plus hours this morning. In bed most of the shift, no behavior issues. Denies other safety concerns. 05/19: in bed days, up eves. no change in presentation. continue current mgmt. 05/20: no change in presentation. check labs. 05/21: lithium low, TFTs mixed and not all back. increase lithium from 600 BID to 600/900. trend BUN/Cr, with slight elevation. otherwise continue current mgmt. 05/22: no change in presentation. continue current mgmt. 05/23: does not deny someone stole his sperm and impregnated his landlord's child with it. irritable. c/o dental pain, antibx restarted. otherwise continue current mgmt. 05/14: no change in mgt 05/25: more isolative today; no change in mgt 05/26: decreases in methimazole noted. continue psych regimen as is. pt refused to interact with MD today. 05/27: i'm sleeping. no change in presentation. labs tonight. 05/28: no change in behavior. lithium 0.66, BUN stable. continue current mgmt. 05/29: irritable. continue current mgmt. 05/30: no longer in single room. still not engaging, sleeping days. continue current mgmt. 05/31:laying in bed. declined to meet with T/W. pt stated, I want to sleep. I didn't sleep enough . Pt encouraged to reach out to staff if he needs anything. Continue current tx plan. 06/01: Similar to yesterday. laying in bed. Irritable. declined to meet with T/W and pulled bed sheets over head. pt stated, I don't want to talk. I want to sleep . difficult to engage. Continue current tx plan. 06/02: Similar to yesterday. laying in bed. Irritable. declined to meet with T/W. Observed getting drink from kitchen; T/W approached pt and asked if they could speak. patient declined to acknowledge T/W and walked past. Continue current tx plan. 06/03: no change in behavior. continue tx plan. 06/04/25: Passive engaged in the assessment, in bed mostly sleeping this morning which could be interfere with his nighttime. Cover body under the blanket Slept for 4-5 hours last night. Was medication compliant, attended no groups, isolative to self in room. No SI/SIB/HI/AVH expressed. 06/05: continue tx plan. 06/06: reports feeling fine ; continues guarded. difficult to engage. declining to meet with T/W. continue tx plan. 06/07/25: Slept for 4 hours at night, but has been sleeping most of the day yesterday as well. Spent majority of the shift in bed, was medication compliant. Passive engaged in the conversation. He said he will try to change the sleeping pattern so that he can be awake more during the daytime. Appear to be sedated in the morning. No safety behavior. 06/08/25: Slept for 3-4 hours last night, compliant with medications. Denies side effects, denies other safety concerns. Continued to encourage patient to up and down more than on the unit he spent most of the day sleeping. He is pleasant upon approach. No other behavior issues. Denied voices/hallucinations. Suicide thoughts or homicidal thoughts. 06/09: sleeping, minimally rousable. denies problems. continue current mgmt. 06/10: sleeping all day, up most of the night. minimally rousable. denies problems. continue current mgmt. per JAMAICA Arrington: Jean said when he leaves he can return to [facility]. he was living with a lady there and can go back. He plans to get a job to pay off his debt. He said he owes money because they sent him back here due to losing his passport and he owes them money for the temporary emergency passport and the flight back to the . so his main focus is to get a job. he said he will try things here first and if it doesn't work out he plans to return to [place]. 06/11/25: Passively engaged in conversation while in bed sleeping/resting. Able to answer question appropriately, but seems to be minimized. Denies SI/SIB/HI/AVH. He slept 5 hours last night, spent most of the day in bed sleeping. Attempted to no groups, observed out to the afternoon in the subramanian near the nurse station. No change in presentation. Encourage groups,up and engaged in groups. 06/12: not engaging. no complaints or questions re med changes. cross-taper zyprexa in favor of invega, give MONTERO invega. tonight, decrease zyprexa to 15 mg and start invega 3 mg. otherwise continue current mgmt. 06/13: continues avoidant and disengaged. denies side effects from med change last night. informed cross-titration will advance tonight. decrease zyprexa to 10 mg tonight, increase paliperidone to 6 mg. plan to continue by 5 mg zyprexa and 3 mg paliperidone increments every several days as tolerated until zyprexa DCed and paliperidone at 12 mg QHS. once it is established pt is tolerating PO Paliperidone, invega sustenna to be administered. 06/14: Continue current regimen and plans 06/15: Continue current plans and regimen 06/16: irritable re neuroleptic change. denies side effects or problems with it, however. minimally engageable. increase invega to 9 QHS and decrfease zyprexa to 5 QHS. 06/17/25: Continued to be irritable regarding medication change/titration. However engaged in conversation, hyper verbal, paranoid, reports medication slow his thoughts down and he does not not like it. Poor insight and poor judgment. He thinks he only need lithium, not other medications. Remind patient to continue doing the sleep pattern changing. However his in bed mostly this morning. Slept for 4-5 hours last night. 06/18/25: Slept for 5 hours last night as he continues sleeping during daytime. Compliant with meds, did not c/o side effects.Passingly engaging in assessment. Denies safety concerns. Tolerate the tritation well. Will increase Inveag up to max of 12 tomorrow and Discontinue Olanzepine at HS. Continue to encourage up and out on day so he can sleep better at HS. 06/19/25: Patient slept for 5.5 hours last night, was medication compliant, mostly in his room yesterday but seen more often in the evening. Patient is awake in his room, listen to music, his morning tray was taken away and clean the area. He is very pleasant to talk to today, reports he feels good, denies side effects from medications, denies any safety concerns. Denies feeling sedation, denies anxiety/depression. He is receptive with the plan of medication over the weekends and next week, happy to hear about the medication plan. He also agree with the MONTERO Invega Sustenna on Monday. Encourage him to go out and attended to groups, he said that he will. Reported that he was out for groups a couple of times last week. Discontinue Haldol p.r.n.. Discontinue scheduled Zyprexa 5 mg at bedtime. Only on 10 Zyprexa at g IM daily p.r.n. as backup orders if refused Invega. Invega 12 mg at bedtime. Plan to monitor over the weekends and will give long-acting injection on Monday if tolerate with the p.o. well Reduce Seroquel 200 mg p.r.n. at bedtime to 100 p.r.n. at bedtime for insomnia. Seroquel 50 mg b.i.d. p.r.n. for agitation. Discontinue Motrin. Patient on lithium. Labs were for MondayJune 20: CMP, TSH with free T4. 06/20/25: In bed most of the day, was compliant with medication, however refused labs work. Re- scheduled for Monday. Continue with Invega 12 mg at bedtime. We will reassess and offer long-acting injection on Monday. Continue to encourage patient to get up and go to some groups. No safety concerns expressed. Minimal peer and staff interaction. 06/21: no change in presentation. start MONTERO monday. no s/e from invega. otherwise continue current mgmt. 06/22: stable. continue current mgmt. 06/23/25: More awake and alert. Review with patient regarding policy for his phone use BID 30min each time, patient is educated on compliant with policy. He asks for more 5-10 min extra headphone use at night on the weekends after 2300. Once again, redirected for unit rules. He agrees with MONTERO which is scheduled today. Discontinue Invega PO Invega Sustenna 234mg IM once. Will monitor for possible side effects and sedation. Will offer 156mg after 1 week. If mentaly stable with 156mg, will maintain at this dose, if not will offer 234mg Monthly. 06/24/25: Slept for 5 hours last night, but also went to bed around 7 tonight p.m. last night per his report. He also attended to groups in the afternoon yesterday. Compliant with medications. No side effects from Invega Sustenna. He is engaged in full conversation today why he is in bed, denies safety concerns. Observe he is on the unit, social with peers and staff in longer period of time. Appeared to be happy. He plans to take shower today. Reported that he was up early but he does not feel hungry in the morning. He is making progress, not too sedated during daytime since switching his medication. Appears to do well so far with Invega Sustenna. 06/25/25: Patient slept for 4 hours last night, however he reported was napping in the afternoon for couple hours which affect his sleeping pattern at night. Educate patient to not napping late in the evening. He is receptive. Compliant with medications, no side effects. He reports his did not shower yesterday but he will today. He is awake in his room not sleeping, engage in full conversation, no delusional or paranoid statements make. He is visible at times. Continued to improve in mood, engaging in other activities on the unit. Denies other safety concerns. Denies hallucinations. No irritability mood, not sedated during day time compared to when he was taking olanzapine. We will schedule Invega Sustenna 156 next Monday. Work with social security specialist to see where he will return to. He probably needs VNA to manage medication. 06/26/25: He slept for 5 hours, compliant with medications. Denies side effects. He self-reported that he went to bed last night and was able to fall asleep by 01:00 and able to stay asleep whole night. Denies safety concerns. I spoke with him in length today regarding aftercare. He thinks he will go to the hospital in [place] to ask them regarding his heart condition. He thinks people was lying to get him to the hospital as he does not have mental health illnesses. He believes that he has been exactly the same he was seen he was a little, and at he able to remember everything in the past. He also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
[2025-07-03 20:00] VITALS: BP 121/58; PULSE 78; RESP 18; TEMP 37.6; O2SAT 100
[2025-07-03] MEDS: Sodium Chloride 0.65 % Nasal 44 ML SPRBTL 1 SPRAY NOSTRIL-B (23:03)
[2025-07-04 09:40] VITALS: BP 140/81; PULSE 97; RESP 17; TEMP 37.2; O2SAT 99
--- NOTE | 2025-07-04 09:45 | P.PNPSI_ITS ---
Subjective Subjective Date of Service: 07/04/25 Reason For Visit: psychotic disorder Subjective Notes: [place] Order and Section 8 Healthcare Proxy: No Guardianship: No Medical Problems Affecting Mental Status: No Interim History: Medical record and nursing notes reviewed; case discussed during rounds with team/nursing staff, and met with patient for supportive therapy/psychoeducation, as well as medication management. Patient slept well, compliant with medications. Sinus congestion is improved. He met with [facility] workers for 1-1/2 hours this morning. However due to his tangential thoughts, [facility] we will need to come back to see him again next week on . He feels a little bit disappointed is is not fast enough that the way that he thinks things are not easy . He asked question what is the usp. Explained to him, and appeared that he does not want to be in the usp, he does not not feel he has had mental health. Continued to be poor insight of the illnesses which could be at his baseline. [facility] will refer patient to PACT team. Denies safety concerns, he is visible, social inappropriate. Attended groups, no behavior issues Medication Compliance: Yes Side effects from medications: No Attending Groups: Intermittent Review of Systems Acute medical concerns: No Medical Review of Systems: unchanged Review of Systems Review of Systems Constitutional: Denies fatigue and Denies fever(s) Cardiovascular: Denies chest pain and Denies dyspnea Respiratory: Denies dyspnea Gastrointestinal: Denies abdominal pain Psychiatric: denies suicidal ideation Endocrine: Denies fatigue Yes all other systems are reviewed and are negative Mental Status Exam Mental Status Exam Narrative: Intermittently in milieu, alert and awake, exopthalmos, actively engaged in full normal conversation., denies SI/SIB/HI/AVH, more logical. Denies safety concerns. No SI//SIB/HI/AVH expressed.Visible, social, no irritable mood. calm, pleasant and cooperative. More anxious/worry about future/DMH outcome. Diagnostics Vital Signs (24Hr): Vital Signs - 24 hr 07/03/25 20:00 07/04/25 09:40 Temperature 99.6 F 98.9 F Pulse Rate 78 97 Respiratory Rate 18 17 Blood Pressure 121/58 L 140/81 H Pulse Oximetry 100 99 Oxygen Delivery Method Room Air Room Air BMI result Body Mass Index 23.8 Labs 06/25/25 08:02 06/20/25 20:35 Medications Medications Current Medications Acetaminophen (Acetaminophen 325 Mg Tablet) 650 mg PO Q4H PRN PRN Reason: Pain, Mild (Pain Scale 1-3) Al Hydroxide/Mg Hydroxide (Magnesium Hydrox/Alum Hydrox 30 Ml Oral.Susp) 30 ml PO Q6H PRN PRN Reason: Heart burn Benzocaine (Benzocaine 20 % Oral Gel 14 Gm Tube) 1 appl MUCOUS MEM QID PRN; Protocol PRN Reason: Mouth Sore Pain Last Admin: 04/26/25 18:33 Dose: 1 appl Diazepam (Diazepam 10 Mg/2 Ml Cartridge) 10 mg IM BID PRN PRN Reason: refusal of lithium, per everett Last Admin: 04/11/25 09:56 Dose: 10 mg [place] Carbonate ([place] Carbonate Er 300 Mg Tablet.Er) 600 mg PO DAILY [facility] Last Admin: 07/04/25 09:36 Dose: 600 mg [place] Carbonate ([place] Carbonate Er 450 Mg Tablet.Er) 900 mg PO DAILY@2300 [facility] Last Admin: 07/03/25 23:03 Dose: 900 mg Magnesium Hydroxide (Milk Of Magnesia 30 Ml Oral.Susp) 30 ml PO DAILY PRN PRN Reason: Constipation Methimazole (Methimazole 10 Mg Tablet) 10 mg PO DAILY [facility] Last Admin: 07/04/25 09:36 Dose: 10 mg Nicotine (Nicotine 21 Mg Patch.Td24) 21 mg TRANSDERMA DAILY PRN PRN Reason: nicotine cravings Last Admin: 04/12/25 17:06 Dose: 21 mg Nicotine Polacrilex (Nicotine Polacrilex Lozenge 2 Mg Lozenge) 2 mg BUCCAL Q1H PRN PRN Reason: Nicotine Cravings Last Admin: 04/30/25 08:49 Dose: 2 mg Patient Own Medication Excedrin 250/250/65mg 2 each PO Q8H PRN PRN Reason: Migraine Headache Last Admin: 07/03/25 08:24 Dose: 2 each Olanzapine (Olanzapine 10 Mg Vial) 10 mg IM DAILY PRN PRN Reason: if refuse Invega PO Pseudoephedrine HCl (Pseudoephedrine Hcl 30 Mg Tablet) 30 mg PO Q6H PRN PRN Reason: Congestion Last Admin: 07/03/25 21:18 Dose: 30 mg Quetiapine Fumarate (Quetiapine Fumarate 100 Mg Tablet) 100 mg PO BEDTIME PRN PRN Reason: insomnia Quetiapine Fumarate (Quetiapine Fumarate 50 Mg Tablet) 50 mg PO BID PRN PRN Reason: agitation Sodium Chloride (Sodium Chloride 0.65 % Nasal 44 Ml Sprbtl) 1 spray NOSTRIL-B Q4H PRN PRN Reason: Congestion Last Admin: 07/03/25 23:03 Dose: 1 spray Allergies Allergies Allergy/AdvReac Type Severity Reaction Status Date / Time No Known Allergies Allergy Verified 03/26/25 14:24 Assessment & Plan Assessment & Plan (1) Graves disease: Status: Acute Code(s): E05.00 - Thyrotoxicosis with diffuse goiter without thyrotoxic crisis or storm Assessment and Plan: Hyperthyroidism/Graves disease. He will need follow up with endocrinology as an outpatient He will also need a primary care doctor referral as an outpatient Discussed with Dr. Bejarano, patient will need free T4 weekly Decrease Methimazole to 15 mgs daily for three days and then 10 mgs daily- discussed with patient he is aware of plan and rationale. TSH and free T4 every 4 weeks. No need to draw thyroid stimulation immunology or TSH receptor AB (2) Dental abscess: Status: Acute Code(s): K04.7 - Periapical abscess without sinus Assessment and Plan: Carious tooth/dental infection Recently treated with PEN VK 500 mg q.6 hours for 7 days Patient will need follow up with dentist on discharge for tooth extraction Motrin helping pain. (3) Becca: Status: Acute Code(s): F30.9 - Manic episode, unspecified Plan 03/26: offer lithium and seroquel for becca. continue methimazole and beta joanne for hyperthyroidism as started at [facility]. trend TFTs. 12b. 03/27: taking methimazole and beta joanne. refused HS meds last night, took morning meds today. continue to encourage medication compliance. 03/28: intermittently taking meds. wants all meds in morning. pressured, manic, paranoid delusions. encouraged to take lithium but states he will not. all meds ordered for morning. 03/29: Keeping to self. no groups. observed laying in bed listening to music on unit headphones. pleasant. Pt reports feeling good today and sleeping well. declined lithium and zyprexa. denies SI/HI/VH/AH. continue current tx plan. 03/30:Irritable. upset he was unable to use his personal hygiene products. Per nursing, pt threatened staff and squeezed tooth paste throughout unit hallway to show his frustration. Pt was able to calm down after speaking with security. declined medications. 03/31: Keeping to self. laying in bed listening to music. refused medications. calm today. Patient reports feeling great ; pt stated, nothing is wrong with me. I'm waiting so I can leave tomorrow. I'm hoping for the best . denies SI/HI/VH/AH. per nursing, slept 6 hours. Continue current tx plan. 04/01: variably calm on the unit versus highly agitated. paranoid delusions, irritability, lability continue. seems to believe MD has met him prior to the present hospitalization and is stalking him. believes brother behind conspiracy to have him psychiatrically hospitalized. has been refusing all medications, including for hyperthyroidism. informed he would be filed on. filed. continue to offer medications. 04/02: continues agitated, belittling, verbally aggressive, refusing all medications including for hyperthyroidism. continue to offer medication. 04/03: paranoid there is a conspiracy to hospitalize him. threatening to stick a stick in staff once he is released by real estate services coordinator. insists his hyperthyroidism was cured at [facility]. asserts there is NOTHING wrong with him. continue to offer medication. 04/04: irritable, rejecting. verbally abuses MD and sends him away: see you on monday [in court]. continue to offer medication for thyroid condition and mental illness. 04/05 continue tx. suspicious and guarded, accusatory, verbal threats to hurt staff and peers 04/06 intrusive, posturing towards staff and peer who he thinks is not real and is an impostor, continues to make verbal threats to harm him but thinks that because he is not real he may not experience any pain. 04/07: threatening statements and behaviors of yesterday noted. pt sleeping this morning, dismissive of MD. 04/08: asleep days. committed and meds ordered by court. 04/09: on being informed of court order and MD insisting on meds, pt escalated to hurling food item in container against wall at high speed and saying he wished he could do the same to MD's head. pt eventually took court ordered meds PO. sensodyne and excedrin not available in pharmacy (pt requesting them). 04/10: continue tx. Pt accepting medication today. 04/11: Keeping to self. Lying in bed most of morning. Declined to meet with T/W. Pt stated, I'm fine. I don't need anything . Listening to headphones in room. Declined court ordered PO medications; received IM medications. Refused vital signs.continue tx plan. 04/12: got IMs yesterday, took PO this morning. sleepy, no concerns or complaints. 04/13: taking PO meds again. slept 7 hours. sleepy again mid morning refusing interview. continue current mgmt. 04/14: sleeping, rousable. denies being sedated or tired, says he's just bored. no questions or complaints. informed of need to check labs. check lithium level and thyroid labs tonight. 04/15: refusing labs. delusional re his brother harming him. verbally abusive toward MD. spat in floor. happy with improvement in proptosis. 04/16: Lying in bed. Calm. cooperative. guarded. Pt reports feeling tired this morning d/t poor sleep last night. Pt stated, I don't need anything. I didn't sleep well so I'm trying to catch up . denies any issues at this time. denies SI/HI/VH/AH. Continue current tx plan. 04/17: more calm today, less explosive. continue current mgmt. 04/18: continues more calm. tolerating moments of frustration without verbally attacking MD. slept only 2 hours overnight, however. continue current mgmt. 04/19 continues to push boundaries and limits with staff mike around cell phone- 04/20 - aggressive with staff and unpredictable- threw water pitcher at staff behind desk/-when seen by provider passive in bed-denying all compaints/sys- no insight 04/21: appears as per last week. more difficult behaviors around cell phone use, did throw pitcher of water at RN monday over phone use and was restrained. continue current mgmt. 04/22: continues to have conflict around cell phone use. consolidate zyprexa at HS to decrease daytime sedation. 1:1 allegra shift until peer he is accusing of not being a real patient and appears to be targeting discharges tomorrow. 04/23: lithium 0.6 on 600 BID. sleeping better, remains delusional (telling SW who is marginally younger than him that she could be his daughter). just changed zyprexa dosing as of last night. continue current regimen and observe for continued stabilization. T/C slight increase in lithium dosing. 04/24: Laying in bed. guarded. calm. did not want to get out of bed to meet with T/W. Pt reports feeling great today but declined to go into detail. listening to music on unit headphones. Pt stated, I'm fine. I don't need anything . denies any issues at this time. denies SI/HI/VH/AH. Continue current tx plan. 04/25: Laying in bed. keeping to self. calm. paranoid. Discussed incident that occurred with staff last evening. Pt stated, the counselor made up a lie yesterday. I said she looks like my ex-girlfriend. I know they are related. They want to make up a lie to irritate me. They are trying to talk to me so they can use recording devices and make me look some kind of way . listening to music on unit headphones. denies SI/HI/VH/AH. Continue current tx plan. 04/26: Continue current regimen and plans. Increase Zyprexa 20 mg q.h.s. fresh air break withheld 04/27: Continue current regimen and plans 04/28: somewhat less irritable and agitated than last week. however, over the weekend was claiming he was the father of a footballer on TV and also that a staff member is a twin of his ex-GF (and he pushed staff member). TFTs improving. continue current mgmt. 04/29: no change in presentation. continue current mgmt. 04/30: no irritable edge today. calm, pleasant. engaging in small talk. reality testing not pressed. continue current mgmt for now. 05/01: no change in presentation. continue current mgmt. 05/02: BPs coming down, DC beta joanne as pt has been refusing anyway. remains not antagonistic toward MD. using phone appropriately. continue current mgmt otherwise. 05/03 continue 05/04: remains delusional, irritable/labile when delusional system confronted. declines to sign TOMMY for [facility] records. continue current mgmt. 05/06: declining to meet with MD, but does meet with medical student. remains upset about yesterday's confrontation re his delusional system. 05/07: Active on unit. keeping to self. pacing unit hallway while listening to unit headphones. medication compliant. patient reports feeling good ; pt stated, I'm just waiting to leave here. I want to return to my life and do things like go grocery shopping . denies SI/HI/VH/AH. Continue current tx plan. 05/08: stable presentation, delusions not being brought to the surface daily. remains affectively improved from admission. continue current mgmt. 05/09: calm, pleasant. no questions or complaints. continue current mgmt. 05/10: no change in presentation. due to lack of improvement in dental infection Sx, DC PCN and start augmentin. 05/11: no change in presentation. continue current mgmt. 05/12: as for yesterday. dental pain improving a bit. 05/13: expressed to medical student that his brother poisoned him, causing his thyroid disease. no change in presentation. continue current mgmt. 05/14: Pacing unit hallway. keeping to self. patient reports feeling good today; denies any issues at this time. denies SI/HI/VH/AH. per nursing, slept 5 hours. Continue current tx plan. 05/15: slept 6 hours. otherwise isolative, difficult to engage. continue current mgmt. 05/16: slept 7 hours. as for yesterday otherwise. 05/17/25: Slept well, no issue with appetite, skinny and pretty tall. Compliant with medication. No side effects Calm and pleasant upon approach. Some what paranoid. Tangential, however denies other safety concerns. Questions if he is discharging soon. He is on antibiotic for 7 days for mouth pain/tooth pain. We will finish the 7 course up in antibiotic after tonight dose. Then discontinue. 05/18/25: Slept for 5 hours plus hours this morning. In bed most of the shift, no behavior issues. Denies other safety concerns. 05/19: in bed days, up eves. no change in presentation. continue current mgmt. 05/20: no change in presentation. check labs. 05/21: lithium low, TFTs mixed and not all back. increase lithium from 600 BID to 600/900. trend BUN/Cr, with slight elevation. otherwise continue current mgmt. 05/22: no change in presentation. continue current mgmt. 05/23: does not deny someone stole his sperm and impregnated his landlord's child with it. irritable. c/o dental pain, antibx restarted. otherwise continue current mgmt. 05/14: no change in mgt 05/25: more isolative today; no change in mgt 05/26: decreases in methimazole noted. continue psych regimen as is. pt refused to interact with MD today. 05/27: i'm sleeping. no change in presentation. labs tonight. 05/28: no change in behavior. lithium 0.66, BUN stable. continue current mgmt. 05/29: irritable. continue current mgmt. 05/30: no longer in single room. still not engaging, sleeping days. continue current mgmt. 05/31:laying in bed. declined to meet with T/W. pt stated, I want to sleep. I didn't sleep enough . Pt encouraged to reach out to staff if he needs anything. Continue current tx plan. 06/01: Similar to yesterday. laying in bed. Irritable. declined to meet with T/W and pulled bed sheets over head. pt stated, I don't want to talk. I want to sleep . difficult to engage. Continue current tx plan. 06/02: Similar to yesterday. laying in bed. Irritable. declined to meet with T/W. Observed getting drink from kitchen; T/W approached pt and asked if they could speak. patient declined to acknowledge T/W and walked past. Continue current tx plan. 06/03: no change in behavior. continue tx plan. 06/04/25: Passive engaged in the assessment, in bed mostly sleeping this morning which could be interfere with his nighttime. Cover body under the blanket Slept for 4-5 hours last night. Was medication compliant, attended no groups, isolative to self in room. No SI/SIB/HI/AVH expressed. 06/05: continue tx plan. 08/1: reports feeling fine ; continues guarded. difficult to engage. declining to meet with T/W. continue tx plan. 06/07/25: Slept for 4 hours at night, but has been sleeping most of the day yesterday as well. Spent majority of the shift in bed, was medication compliant. Passive engaged in the conversation. He said he will try to change the sleeping pattern so that he can be awake more during the daytime. Appear to be sedated in the morning. No safety behavior. 06/08/25: Slept for 3-4 hours last night, compliant with medications. Denies side effects, denies other safety concerns. Continued to encourage patient to up and down more than on the unit he spent most of the day sleeping. He is pleasant upon approach. No other behavior issues. Denied voices/hallucinations. Suicide thoughts or homicidal thoughts. 06/09: sleeping, minimally rousable. denies problems. continue current mgmt. 06/10: sleeping all day, up most of the night. minimally rousable. denies problems. continue current mgmt. per JAMAICA Arrington: Jean said when he leaves he can return to [facility]. he was living with a lady there and can go back. He plans to get a job to pay off his debt. He said he owes money because they sent him back here due to losing his passport and he owes them money for the temporary emergency passport and the flight back to the . so his main focus is to get a job. he said he will try things here first and if it doesn't work out he plans to return to [place]. 06/11/25: Passively engaged in conversation while in bed sleeping/resting. Able to answer question appropriately, but seems to be minimized. Denies SI/SIB/HI/AVH. He slept 5 hours last night, spent most of the day in bed sleeping. Attempted to no groups, observed out to the afternoon in the subramanian near the nurse station. No change in presentation. Encourage groups,up and engaged in groups. 06/12: not engaging. no complaints or questions re med changes. cross-taper zyprexa in favor of invega, give MONTERO invega. tonight, decrease zyprexa to 15 mg and start invega 3 mg. otherwise continue current mgmt. 06/13: continues avoidant and disengaged. denies side effects from med change last night. informed cross-titration will advance tonight. decrease zyprexa to 10 mg tonight, increase paliperidone to 6 mg. plan to continue by 5 mg zyprexa and 3 mg paliperidone increments every several days as tolerated until zyprexa DCed and paliperidone at 12 mg QHS. once it is established pt is tolerating PO Paliperidone, invega sustenna to be administered. 06/14: Continue current regimen and plans 06/15: Continue current plans and regimen 06/16: irritable re neuroleptic change. denies side effects or problems with it, however. minimally engageable. increase invega to 9 QHS and decrfease zyprexa to 5 QHS. 06/17/25: Continued to be irritable regarding medication change/titration. However engaged in conversation, hyper verbal, paranoid, reports medication slow his thoughts down and he does not not like it. Poor insight and poor judgment. He thinks he only need lithium, not other medications. Remind patient to continue doing the sleep pattern changing. However his in bed mostly this morning. Slept for 4-5 hours last night. 06/18/25: Slept for 5 hours last night as he continues sleeping during daytime. Compliant with meds, did not c/o side effects.Passingly engaging in assessment. Denies safety concerns. Tolerate the tritation well. Will increase Inveag up to max of 12 tomorrow and Discontinue Olanzepine at HS. Continue to encourage up and out on day so he can sleep better at HS. 06/19/25: Patient slept for 5.5 hours last night, was medication compliant, mostly in his room yesterday but seen more often in the evening. Patient is awake in his room, listen to music, his morning tray was taken away and clean the area. He is very pleasant to talk to today, reports he feels good, denies side effects from medications, denies any safety concerns. Denies feeling sedation, denies anxiety/depression. He is receptive with the plan of medication over the weekends and next week, happy to hear about the medication plan. He also agree with the MONTERO Invega Sustenna on Monday. Encourage him to go out and attended to groups, he said that he will. Reported that he was out for groups a couple of times last week. Discontinue Haldol p.r.n.. Discontinue scheduled Zyprexa 5 mg at bedtime. Only on 10 Zyprexa at g IM daily p.r.n. as backup orders if refused Invega. Invega 12 mg at bedtime. Plan to monitor over the weekends and will give long- acting injection on Monday if tolerate with the p.o. well Reduce Seroquel 200 mg p.r.n. at bedtime to 100 p.r.n. at bedtime for insomnia. Seroquel 50 mg b.i.d. p.r.n. for agitation. Discontinue Motrin. Patient on lithium. Labs were for MondayJune 20: CMP, TSH with free T4. 06/20/25: In bed most of the day, was compliant with medication, however refused labs work. Re- scheduled for Monday. Continue with Invega 12 mg at bedtime. We will reassess and offer long-acting injection on Monday. Continue to encourage patient to get up and go to some groups. No safety concerns expressed. Minimal peer and staff interaction. 06/21: no change in presentation. start MONTERO monday. no s/e from invega. otherwise continue current mgmt. 06/22: stable. continue current mgmt. 06/23/25: More awake and alert. Review with patient regarding policy for his phone use BID 30min each time, patient is educated on compliant with policy. He asks for more 5-10 min extra headphone use at night on the weekends after 2300. Once again, redirected for unit rules. He agrees with MONTERO which is scheduled today. Discontinue Invega PO Invega Sustenna 234mg IM once. Will monitor for possible side effects and sedation. Will offer 156mg after 1 week. If mentaly stable with 156mg, will maintain at this dose, if not will offer 234mg Monthly. 06/24/25: Slept for 5 hours last night, but also went to bed around 7 tonight p.m. last night per his report. He also attended to groups in the afternoon yesterday. Compliant with medications. No side effects from Invega Sustenna. He is engaged in full conversation today why he is in bed, denies safety concerns. Observe he is on the unit, social with peers and staff in longer period of time. Appeared to be happy. He plans to take shower today. Reported that he was up early but he does not feel hungry in the morning. He is making progress, not too sedated during daytime since switching his medication. Appears to do well so far with Invega Sustenna. 06/25/25: Patient slept for 4 hours last night, however he reported was napping in the afternoon for couple hours which affect his sleeping pattern at night. Educate patient to not napping late in the evening. He is receptive. Compliant with medications, no side effects. He reports his did not shower yesterday but he will today. He is awake in his room not sleeping, engage in full conversation, no delusional or paranoid statements make. He is visible at times. Continued to improve in mood, engaging in other activities on the unit. Denies other safety concerns. Denies hallucinations. No irritability mood, not sedated during day time compared to when he was taking olanzapine. We will schedule Invega Sustenna 156 next Monday. Work with manager social services to see where he will return to. He probably needs VNA to manage medication. 06/26/25: He slept for 5 hours, compliant with medications. Denies side effects. He self-reported that he went to bed last night and was able to fall asleep by 01:00 and able to stay asleep whole night. Denies safety concerns. I spoke with him in length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
[2025-07-04 19:21] VITALS: BP 139/79; PULSE 96; RESP 16; TEMP 37; O2SAT 100
[2025-07-05] MEDS: EXCEDRIN 2 EACH PO (05:07)
--- NOTE | 2025-07-05 14:23 | P.PNPSI_ITS ---
Subjective Subjective Date of Service: 07/05/25 Reason For Visit: psychotic disorder Subjective Notes: Section 8 Interim History: Keeping to self. Patient reports feeling fine today; pt states he is focused on leaving soon. Patient stated, I hope I can leave soon . denies SI/HI/VH/AH. denies any issues at this time. Continue current tx plan. Medication Compliance: Yes Side effects from medications: No Attending Groups: No Mental Status Exam Mental Status Exam Patient Appearance: Appropriate Patient Orientation: Person, Place, Time and Situation Level of Consciousness: Drowsy Patient Behavior: Guarded and Cooperative Mood Description: Calm Affect Description: Calm Ability to Follow Directions: Good Speech Pattern: Clear Memory Description: Intact Hallucinations: None Thought Process: Intact Thought Content: positive for Intact Diagnostics Vital Signs (24Hr): Vital Signs - 24 hr 07/04/25 19:21 Temperature 98.6 F Pulse Rate 96 Respiratory Rate 16 Blood Pressure 139/79 Pulse Oximetry 100 Oxygen Delivery Method Room Air BMI result Body Mass Index 23.8 Labs 06/25/25 08:02 06/20/25 20:35 Medications Medications Current Medications Acetaminophen (Acetaminophen 325 Mg Tablet) 650 mg PO Q4H PRN PRN Reason: Pain, Mild (Pain Scale 1-3) Al Hydroxide/Mg Hydroxide (Magnesium Hydrox/Alum Hydrox 30 Ml Oral.Susp) 30 ml PO Q6H PRN PRN Reason: Heart burn Benzocaine (Benzocaine 20 % Oral Gel 14 Gm Tube) 1 appl MUCOUS MEM QID PRN; Protocol PRN Reason: Mouth Sore Pain Last Admin: 04/26/25 18:33 Dose: 1 appl Diazepam (Diazepam 10 Mg/2 Ml Cartridge) 10 mg IM BID PRN PRN Reason: refusal of lithium, mary floyd Last Admin: 04/11/25 09:56 Dose: 10 mg [place] Carbonate ([place] Carbonate Er 300 Mg Tablet.Er) 600 mg PO DAILY [facility] Last Admin: 07/05/25 10:11 Dose: 600 mg [place] Carbonate ([place] Carbonate Er 450 Mg Tablet.Er) 900 mg PO DAILY@2300 [facility] Last Admin: 07/04/25 21:20 Dose: 900 mg Magnesium Hydroxide (Milk Of Magnesia 30 Ml Oral.Susp) 30 ml PO DAILY PRN PRN Reason: Constipation Methimazole (Methimazole 10 Mg Tablet) 10 mg PO DAILY [facility] Last Admin: 07/05/25 10:11 Dose: 10 mg Nicotine (Nicotine 21 Mg Patch.Td24) 21 mg TRANSDERMA DAILY PRN PRN Reason: nicotine cravings Last Admin: 04/12/25 17:06 Dose: 21 mg Nicotine Polacrilex (Nicotine Polacrilex Lozenge 2 Mg Lozenge) 2 mg BUCCAL Q1H PRN PRN Reason: Nicotine Cravings Last Admin: 04/30/25 08:49 Dose: 2 mg Patient Own Medication Excedrin 250/250/65mg 2 each PO Q8H PRN PRN Reason: Migraine Headache Last Admin: 07/05/25 05:07 Dose: 2 each Olanzapine (Olanzapine 10 Mg Vial) 10 mg IM DAILY PRN PRN Reason: if refuse Invega PO Pseudoephedrine HCl (Pseudoephedrine Hcl 30 Mg Tablet) 30 mg PO Q6H PRN PRN Reason: Congestion Last Admin: 07/03/25 21:18 Dose: 30 mg Quetiapine Fumarate (Quetiapine Fumarate 100 Mg Tablet) 100 mg PO BEDTIME PRN PRN Reason: insomnia Quetiapine Fumarate (Quetiapine Fumarate 50 Mg Tablet) 50 mg PO BID PRN PRN Reason: agitation Sodium Chloride (Sodium Chloride 0.65 % Nasal 44 Ml Sprbtl) 1 spray NOSTRIL-B Q4H PRN PRN Reason: Congestion Last Admin: 07/03/25 23:03 Dose: 1 spray Allergies Allergies Allergy/AdvReac Type Severity Reaction Status Date / Time No Known Allergies Allergy Verified 03/26/25 14:24 Assessment & Plan Assessment & Plan (1) Graves disease: Status: Acute Code(s): E05.00 - Thyrotoxicosis with diffuse goiter without thyrotoxic crisis or storm Assessment and Plan: Hyperthyroidism/Graves disease. He will need follow up with endocrinology as an outpatient He will also need a primary care doctor referral as an outpatient Discussed with Dr. Bejarano, patient will need free T4 weekly Decrease Methimazole to 15 mgs daily for three days and then 10 mgs daily- discussed with patient he is aware of plan and rationale. TSH and free T4 every 4 weeks. No need to draw thyroid stimulation immunology or TSH receptor AB (2) Dental abscess: Status: Acute Code(s): K04.7 - Periapical abscess without sinus Assessment and Plan: Carious tooth/dental infection Recently treated with PEN VK 500 mg q.6 hours for 7 days Patient will need follow up with dentist on discharge for tooth extraction Motrin helping pain. (3) Becca: Status: Acute Code(s): F30.9 - Manic episode, unspecified Plan 03/26: offer lithium and seroquel for becca. continue methimazole and beta joanne for hyperthyroidism as started at [facility]. trend TFTs. 12b. 03/27: taking methimazole and beta joanne. refused HS meds last night, took morning meds today. continue to encourage medication compliance. 03/28: intermittently taking meds. wants all meds in morning. pressured, manic, paranoid delusions. encouraged to take lithium but states he will not. all meds ordered for morning. 03/29: Keeping to self. no groups. observed laying in bed listening to music on unit headphones. pleasant. Pt reports feeling good today and sleeping well. declined lithium and zyprexa. denies SI/HI/VH/AH. continue current tx plan. 03/30:Irritable. upset he was unable to use his personal hygiene products. Per nursing, pt threatened staff and squeezed tooth paste throughout unit hallway to show his frustration. Pt was able to calm down after speaking with security. declined medications. 03/31: Keeping to self. laying in bed listening to music. refused medications. calm today. Patient reports feeling great ; pt stated, nothing is wrong with me. I'm waiting so I can leave tomorrow. I'm hoping for the best . denies SI/HI/VH/AH. per nursing, slept 6 hours. Continue current tx plan. 04/01: variably calm on the unit versus highly agitated. paranoid delusions, irritability, lability continue. seems to believe has met him prior to the present hospitalization and is stalking him. believes brother behind conspiracy to have him psychiatrically hospitalized. has been refusing all medications, including for hyperthyroidism. informed he would be filed on. filed. continue to offer medications. 04/02: continues agitated, belittling, verbally aggressive, refusing all medications including for hyperthyroidism. continue to offer medication. 04/03: paranoid there is a conspiracy to hospitalize him. threatening to stick a stick in staff once he is released by slicing machine feeder. insists his hyperthyroidism was cured at [facility]. asserts there is NOTHING wrong with him. continue to offer medication. 04/04: irritable, rejecting. verbally abuses MD and sends him away: see you on monday [in court]. continue to offer medication for thyroid condition and mental illness. 04/05 continue tx. suspicious and guarded, accusatory, verbal threats to hurt staff and peers 04/06 intrusive, posturing towards staff and peer who he thinks is not real and is an impostor, continues to make verbal threats to harm him but thinks that because he is not real he may not experience any pain. 04/07: threatening statements and behaviors of yesterday noted. pt sleeping this morning, dismissive of MD. 04/08: asleep days. committed and meds ordered by court. 04/09: on being informed of court order and MD insisting on meds, pt escalated to hurling food item in container against wall at high speed and saying he wished he could do the same to MD's head. pt eventually took court ordered meds PO. sensodyne and excedrin not available in pharmacy (pt requesting them). 04/10: continue tx. Pt accepting medication today. 04/11: Keeping to self. Lying in bed most of morning. Declined to meet with T/W. Pt stated, I'm fine. I don't need anything . Listening to headphones in room. Declined court ordered PO medications; received IM medications. Refused vital signs.continue tx plan. 04/12: got IMs yesterday, took PO this morning. sleepy, no concerns or complaints. 04/13: taking PO meds again. slept 7 hours. sleepy again mid morning refusing interview. continue current mgmt. 04/14: sleeping, rousable. denies being sedated or tired, says he's just bored. no questions or complaints. informed of need to check labs. check lithium level and thyroid labs tonight. 04/15: refusing labs. delusional re his brother harming him. verbally abusive toward MD. spat in floor. happy with improvement in proptosis. 04/16: Lying in bed. Calm. cooperative. guarded. Pt reports feeling tired this morning d/t poor sleep last night. Pt stated, I don't need anything. I didn't sleep well so I'm trying to catch up . denies any issues at this time. denies SI/HI/VH/AH. Continue current tx plan. 04/17: more calm today, less explosive. continue current mgmt. 04/18: continues more calm. tolerating moments of frustration without verbally attacking MD. slept only 2 hours overnight, however. continue current mgmt. 04/19 continues to push boundaries and limits with staff mike around cell phone- 04/20 - aggressive with staff and unpredictable- threw water pitcher at staff behind desk/-when seen by provider passive in bed-denying all compaints/sys- no insight 04/21: appears as per last week. more difficult behaviors around cell phone use, did throw pitcher of water at RN monday over phone use and was restrained. continue current mgmt. 04/22: continues to have conflict around cell phone use. consolidate zyprexa at HS to decrease daytime sedation. 1:1 allegra shift until peer he is accusing of not being a real patient and appears to be targeting discharges tomorrow. 04/23: lithium 0.6 on 600 BID. sleeping better, remains delusional (telling SW who is marginally younger than him that she could be his daughter). just changed zyprexa dosing as of last night. continue current regimen and observe for continued stabilization. T/C slight increase in lithium dosing. 04/24: Laying in bed. guarded. calm. did not want to get out of bed to meet with T/W. Pt reports feeling great today but declined to go into detail. listening to music on unit headphones. Pt stated, I'm fine. I don't need anything . denies any issues at this time. denies SI/HI/VH/AH. Continue current tx plan. 04/25: Laying in bed. keeping to self. calm. paranoid. Discussed incident that occurred with staff last evening. Pt stated, the counselor made up a lie yesterday. I said she looks like my ex-girlfriend. I know they are related. They want to make up a lie to irritate me. They are trying to talk to me so they can use recording devices and make me look some kind of way . listening to music on unit headphones. denies SI/HI/VH/AH. Continue current tx plan. 04/26: Continue current regimen and plans. Increase Zyprexa 20 mg q.h.s. fresh air break withheld 04/27: Continue current regimen and plans 04/28: somewhat less irritable and agitated than last week. however, over the weekend was claiming he was the father of a footballer on TV and also that a staff member is a twin of his ex-GF (and he pushed staff member). TFTs improving. continue current mgmt. 04/29: no change in presentation. continue current mgmt. 04/30: no irritable edge today. calm, pleasant. engaging in small talk. reality testing not pressed. continue current mgmt for now. 05/01: no change in presentation. continue current mgmt. 05/02: BPs coming down, DC beta joanne as pt has been refusing anyway. remains not antagonistic toward MD. using phone appropriately. continue current mgmt otherwise. 05/03 continue 05/04: remains delusional, irritable/labile when delusional system confronted. declines to sign TOMMY for [facility] records. continue current mgmt. 05/06: declining to meet with MD, but does meet with medical student. remains upset about yesterday's confrontation re his delusional system. 05/07: Active on unit. keeping to self. pacing unit hallway while listening to unit headphones. medication compliant. patient reports feeling good ; pt stated, I'm just waiting to leave here. I want to return to my life and do things like go grocery shopping . denies SI/HI/VH/AH. Continue current tx plan. 05/08: stable presentation, delusions not being brought to the surface daily. remains affectively improved from admission. continue current mgmt. 05/09: calm, pleasant. no questions or complaints. continue current mgmt. 05/10: no change in presentation. due to lack of improvement in dental infection Sx, DC PCN and start augmentin. 05/11: no change in presentation. continue current mgmt. 05/12: as for yesterday. dental pain improving a bit. 05/13: expressed to medical student that his brother poisoned him, causing his thyroid disease. no change in presentation. continue current mgmt. 05/14: Pacing unit hallway. keeping to self. patient reports feeling good today; denies any issues at this time. denies SI/HI/VH/AH. per nursing, slept 5 hours. Continue current tx plan. 05/15: slept 6 hours. otherwise isolative, difficult to engage. continue current mgmt. 05/16: slept 7 hours. as for yesterday otherwise. 05/17/25: Slept well, no issue with appetite, skinny and pretty tall. Compliant with medication. No side effects Calm and pleasant upon approach. Some what paranoid. Tangential, however denies other safety concerns. Questions if he is discharging soon. He is on antibiotic for 7 days for mouth pain/tooth pain. We will finish the 7 course up in antibiotic after tonight dose. Then discontinue. 05/18/25: Slept for 5 hours plus hours this morning. In bed most of the shift, no behavior issues. Denies other safety concerns. 05/19: in bed days, up eves. no change in presentation. continue current mgmt. 05/20: no change in presentation. check labs. 05/21: lithium low, TFTs mixed and not all back. increase lithium from 600 BID to 600/900. trend BUN/Cr, with slight elevation. otherwise continue current mgmt. 05/22: no change in presentation. continue current mgmt. 05/23: does not deny someone stole his sperm and impregnated his landlord's child with it. irritable. c/o dental pain, antibx restarted. otherwise continue current mgmt. 05/14: no change in mgt 05/25: more isolative today; no change in mgt 05/26: decreases in methimazole noted. continue psych regimen as is. pt refused to interact with MD today. 05/27: i'm sleeping. no change in presentation. labs tonight. 05/28: no change in behavior. lithium 0.66, BUN stable. continue current mgmt. 05/29: irritable. continue current mgmt. 05/30: no longer in single room. still not engaging, sleeping days. continue current mgmt. 05/31:laying in bed. declined to meet with T/W. pt stated, I want to sleep. I didn't sleep enough . Pt encouraged to reach out to staff if he needs anything. Continue current tx plan. 06/01: Similar to yesterday. laying in bed. Irritable. declined to meet with T/W and pulled bed sheets over head. pt stated, I don't want to talk. I want to sleep . difficult to engage. Continue current tx plan. 06/02: Similar to yesterday. laying in bed. Irritable. declined to meet with T/W. Observed getting drink from kitchen; T/W approached pt and asked if they could speak. patient declined to acknowledge T/W and walked past. Continue current tx plan. 06/03: no change in behavior. continue tx plan. 06/04/25: Passive engaged in the assessment, in bed mostly sleeping this morning which could be interfere with his nighttime. Cover body under the blanket Slept for 4-5 hours last night. Was medication compliant, attended no groups, isolative to self in room. No SI/SIB/HI/AVH expressed. 06/05: continue tx plan. 06/06: reports feeling fine ; continues guarded. difficult to engage. declining to meet with T/W. continue tx plan. 06/07/25: Slept for 4 hours at night, but has been sleeping most of the day yesterday as well. Spent majority of the shift in bed, was medication compliant. Passive engaged in the conversation. He said he will try to change the sleeping pattern so that he can be awake more during the daytime. Appear to be sedated in the morning. No safety behavior. 06/08/25: Slept for 3-4 hours last night, compliant with medications. Denies side effects, denies other safety concerns. Continued to encourage patient to up and down more than on the unit he spent most of the day sleeping. He is pleasant upon approach. No other behavior issues. Denied voices/hallucinations. Suicide thoughts or homicidal thoughts. 06/09: sleeping, minimally rousable. denies problems. continue current mgmt. 06/10: sleeping all day, up most of the night. minimally rousable. denies problems. continue current mgmt. per JAMAICA Arrington: Jean said when he leaves he can return to [facility]. he was living with a lady there and can go back. He plans to get a job to pay off his debt. He said he owes money because they sent him back here due to losing his passport and he owes them money for the temporary emergency passport and the flight back to the [place]. so his main focus is to get a job. he said he will try things here first and if it doesn't work out he plans to return to [place]. 06/11/25: Passively engaged in conversation while in bed sleeping/resting. Able to answer question appropriately, but seems to be minimized. Denies SI/SIB/HI/AVH. He slept 5 hours last night, spent most of the day in bed sleeping. Attempted to no groups, observed out to the afternoon in the subramanian near the nurse station. No change in presentation. Encourage groups,up and engaged in groups. 06/12: not engaging. no complaints or questions re med changes. cross-taper zyprexa in favor of invega, give MONTERO invega. tonight, decrease zyprexa to 15 mg and start invega 3 mg. otherwise continue current mgmt. 06/13: continues avoidant and disengaged. denies side effects from med change last night. informed cross-titration will advance tonight. decrease zyprexa to 10 mg tonight, increase paliperidone to 6 mg. plan to continue by 5 mg zyprexa and 3 mg paliperidone increments every several days as tolerated until zyprexa DCed and paliperidone at 12 mg QHS. once it is established pt is tolerating PO Paliperidone, invega sustenna to be administered. 06/14: Continue current regimen and plans 06/15: Continue current plans and regimen 06/16: irritable re neuroleptic change. denies side effects or problems with it, however. minimally engageable. increase invega to 9 QHS and decrfease zyprexa to 5 QHS. 06/17/25: Continued to be irritable regarding medication change/titration. However engaged in conversation, hyper verbal, paranoid, reports medication slow his thoughts down and he does not not like it. Poor insight and poor judgment. He thinks he only need lithium, not other medications. Remind patient to continue doing the sleep pattern changing. However his in bed mostly this morning. Slept for 4-5 hours last night. 06/18/25: Slept for 5 hours last night as he continues sleeping during daytime. Compliant with meds, did not c/o side effects.Passingly engaging in assessment. Denies safety concerns. Tolerate the tritation well. Will increase Inveag up to max of 12 tomorrow and Discontinue Olanzepine at HS. Continue to encourage up and out on day so he can sleep better at HS. 06/19/25: Patient slept for 5.5 hours last night, was medication compliant, mostly in his room yesterday but seen more often in the evening. Patient is awake in his room, listen to music, his morning tray was taken away and clean the area. He is very pleasant to talk to today, reports he feels good, denies side effects from medications, denies any safety concerns. Denies feeling sedation, denies anxiety/depression. He is receptive with the plan of medication over the weekends and next week, happy to hear about the medication plan. He also agree with the MONTERO Invega Sustenna on Monday. Encourage him to go out and attended to groups, he said that he will. Reported that he was out for groups a couple of times last week. Discontinue Haldol p.r.n.. Discontinue scheduled Zyprexa 5 mg at bedtime. Only on Zyprexa at g IM daily p.r.n. as backup orders if refused Invega. Invega 12 mg at bedtime. Plan to monitor over the s and will give long- acting injection on Monday if tolerate with the p.o. well Reduce Seroquel 200 mg p.r.n. at bedtime to 100 p.r.n. at bedtime for insomnia. Seroquel 50 mg b.i.d. p.r.n. for agitation. Discontinue Motrin. Patient on lithium. Labs were for MondayJune 20: CMP, TSH with free T4. 06/20/25: In bed most of the day, was compliant with medication, however refused labs work. Re- scheduled for Monday. Continue with Invega 12 mg at bedtime. We will reassess and offer long-acting injection on Monday. Continue to encourage patient to get up and go to some groups. No safety concerns expressed. Minimal peer and staff interaction. 06/21: no change in presentation. start MONTERO monday. no s/e from invega. otherwise continue current mgmt. 06/22: stable. continue current mgmt. 06/23/25: More awake and alert. Review with patient regarding policy for his phone use BID 30min each time, patient is educated on compliant with policy. He asks for more 5-10 min extra headphone use at night on the weekends after 2300. Once again, redirected for unit rules. He agrees with MONTERO which is scheduled today. Discontinue Invega PO Invega Sustenna 234mg IM once. Will monitor for possible side effects and sedation. Will offer 156mg after 1 week. If mentaly stable with 156mg, will maintain at this dose, if not will offer 234mg Monthly. 06/24/25: Slept for 5 hours last night, but also went to bed around 7 tonight p.m. last night per his report. He also attended to groups in the afternoon yesterday. Compliant with medications. No side effects from Invega Sustenna. He is engaged in full conversation today why he is in bed, denies safety concerns. Observe he is on the unit, social with peers and staff in longer period of time. Appeared to be happy. He plans to take shower today. Reported that he was up early but he does not feel hungry in the morning. He is making progress, not too sedated during daytime since switching his medication. Appears to do well so far with Invega Sustenna. 06/25/25: Patient slept for 4 hours last night, however he reported was napping in the afternoon for couple hours which affect his sleeping pattern at night. Educate patient to not napping late in the evening. He is receptive. Compliant with medications, no side effects. He reports his did not shower yesterday but he will today. He is awake in his room not sleeping, engage in full conversation, no delusional or paranoid statements make. He is visible at times. Continued to improve in mood, engaging in other activities on the unit. Denies other safety concerns. Denies hallucinations. No irritability mood, not sedated during day time compared to when he was taking olanzapine. We will schedule Invega Sustenna 156 next Monday. Work with social media community manager to see where he will return to. He probably needs [facility] to manage medication. 06/26/25: He slept for 5 hours, compliant with medications. Denies side effects. He self-reported that he went to bed last night and was able to fall asleep by 01:00 and able to stay asleep whole night. Denies safety concerns. I spoke with him in length today regarding aftercare. He thinks he will go to the hospital in [place] to ask them regarding his heart condition. He thinks people was lying to get him to the hospital as he does not have mental health illnesses. He believes that he has been exactly the same he was seen he was a little, and at he able to remember everything in the past. He also reports that he used to use [facility] in [place]. At he does not want [facility] application. I explained to him that in order to be a candidate patient have to be a safe that he has mental health issues, so people can submit the application, and from the [facility] worker will contact him to do assessment if he qualify for any services that they can provide. Patient is receptive application, social media community manager was notified. Patient also would like to have services with [facility] in [place]. He showered yesterday morning, did not go to groups yesterday, but he will go to some groups today per his plan for the day, more awake, engaged in conversation, no irritability. However, continued to be poor insight of his illnesses. He does not want to return to his brother I have not talking to him for since 2021. He reported that that his brother told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
[2025-07-05 20:00] VITALS: RESP 16
--- NOTE | 2025-07-06 08:30 | P.PNPSI_ITS ---
Subjective Subjective Date of Service: 07/06/25 Reason For Visit: psychotic disorder Interim History: Laying in bed most of morning. Patient reports feeling fine today; focused on discharge. denies SI/HI/VH/AH. denies any issues at this time. Continue current tx plan. Medication Compliance: Yes Side effects from medications: No Attending Groups: No Mental Status Exam Mental Status Exam Patient Appearance: Appropriate Patient Orientation: Person, Place, Time and Situation Level of Consciousness: Drowsy Patient Behavior: Guarded and Cooperative Mood Description: Calm Affect Description: Calm Patient Cognition Impaired: No Ability to Follow Directions: Good Speech Pattern: Clear Memory Description: Intact Hallucinations: None Thought Process: Intact Thought Content: positive for Intact Diagnostics Vital Signs (24Hr): Vital Signs - 24 hr 07/05/25 20:00 Respiratory Rate 16 BMI result Body Mass Index 23.8 Labs 06/25/25 08:02 06/20/25 20:35 Medications Medications Current Medications Acetaminophen (Acetaminophen 325 Mg Tablet) 650 mg PO Q4H PRN PRN Reason: Pain, Mild (Pain Scale 1-3) Al Hydroxide/Mg Hydroxide (Magnesium Hydrox/Alum Hydrox 30 Ml Oral.Susp) 30 ml PO Q6H PRN PRN Reason: Heart burn Benzocaine (Benzocaine 20 % Oral Gel 14 Gm Tube) 1 appl MUCOUS MEM QID PRN; Protocol PRN Reason: Mouth Sore Pain Last Admin: 04/26/25 18:33 Dose: 1 appl Diazepam (Diazepam 10 Mg/2 Ml Cartridge) 10 mg IM BID PRN PRN Reason: refusal of lithium, mary floyd Last Admin: 04/11/25 09:56 Dose: 10 mg [place] Carbonate ([place] Carbonate Er 300 Mg Tablet.Er) 600 mg PO DAILY [facility] Last Admin: 07/05/25 10:11 Dose: 600 mg [place] Carbonate ([place] Carbonate Er 450 Mg Tablet.Er) 900 mg PO DAILY@2300 [facility] Last Admin: 07/05/25 23:16 Dose: 900 mg Magnesium Hydroxide (Milk Of Magnesia 30 Ml Oral.Susp) 30 ml PO DAILY PRN PRN Reason: Constipation Methimazole (Methimazole 10 Mg Tablet) 10 mg PO DAILY [facility] Last Admin: 07/05/25 10:11 Dose: 10 mg Nicotine (Nicotine 21 Mg Patch.Td24) 21 mg TRANSDERMA DAILY PRN PRN Reason: nicotine cravings Last Admin: 04/12/25 17:06 Dose: 21 mg Nicotine Polacrilex (Nicotine Polacrilex Lozenge 2 Mg Lozenge) 2 mg BUCCAL Q1H PRN PRN Reason: Nicotine Cravings Last Admin: 04/30/25 08:49 Dose: 2 mg Patient Own Medication Excedrin 250/250/65mg 2 each PO Q8H PRN PRN Reason: Migraine Headache Last Admin: 07/05/25 05:07 Dose: 2 each Olanzapine (Olanzapine 10 Mg Vial) 10 mg IM DAILY PRN PRN Reason: if refuse Invega PO Pseudoephedrine HCl (Pseudoephedrine Hcl 30 Mg Tablet) 30 mg PO Q6H PRN PRN Reason: Congestion Last Admin: 07/03/25 21:18 Dose: 30 mg Quetiapine Fumarate (Quetiapine Fumarate 100 Mg Tablet) 100 mg PO BEDTIME PRN PRN Reason: insomnia Quetiapine Fumarate (Quetiapine Fumarate 50 Mg Tablet) 50 mg PO BID PRN PRN Reason: agitation Sodium Chloride (Sodium Chloride 0.65 % Nasal 44 Ml Sprbtl) 1 spray NOSTRIL-B Q4H PRN PRN Reason: Congestion Last Admin: 07/03/25 23:03 Dose: 1 spray Allergies Allergies Allergy/AdvReac Type Severity Reaction Status Date / Time No Known Allergies Allergy Verified 03/26/25 14:24 Assessment & Plan Assessment & Plan (1) Graves disease: Status: Acute Code(s): E05.00 - Thyrotoxicosis with diffuse goiter without thyrotoxic crisis or storm Assessment and Plan: Hyperthyroidism/Graves disease. He will need follow up with endocrinology as an outpatient He will also need a primary care doctor referral as an outpatient Discussed with Dr. Bejarano, patient will need free T4 weekly Decrease Methimazole to 15 mgs daily for three days and then 10 mgs daily- discussed with patient he is aware of plan and rationale. TSH and free T4 every 4 weeks. No need to draw thyroid stimulation immunology or TSH receptor AB (2) Dental abscess: Status: Acute Code(s): K04.7 - Periapical abscess without sinus Assessment and Plan: Carious tooth/dental infection Recently treated with PEN VK 500 mg q.6 hours for 7 days Patient will need follow up with dentist on discharge for tooth extraction Motrin helping pain. (3) Becca: Status: Acute Code(s): F30.9 - Manic episode, unspecified Plan 03/26: offer lithium and seroquel for becca. continue methimazole and beta joanne for hyperthyroidism as [place] [facility] trend TFTs. 12b. 03/27: taking methimazole and beta joanne. refused HS meds last night, took morning meds today. continue to encourage medication compliance. 03/28: intermittently taking meds. wants all meds in morning. pressured, manic, paranoid delusions. encouraged to take lithium but states he will not. all meds ordered for morning. 03/29: Keeping to self. no groups. observed laying in bed listening to music on unit headphones. pleasant. Pt reports feeling good today and sleeping well. declined lithium and zyprexa. denies SI/HI/VH/AH. continue current tx plan. 03/30:Irritable. upset he was unable to use his personal hygiene products. Per nursing, pt threatened staff and squeezed tooth paste throughout unit hallway to show his frustration. Pt was able to calm down after speaking with security. declined medications. 03/31: Keeping to self. laying in bed listening to music. refused medications. calm today. Patient reports feeling great ; pt stated, nothing is wrong with me. I'm waiting so I can leave tomorrow. I'm hoping for the best . denies SI/HI/VH/AH. per nursing, slept 6 hours. Continue current tx plan. 04/01: variably calm on the unit versus highly agitated. paranoid delusions, irritability, lability continue. seems to believe MD has met him prior to the present hospitalization and is stalking him. believes brother behind conspiracy to have him psychiatrically hospitalized. has been refusing all medications, including for hyperthyroidism. informed he would be filed on. filed. continue to offer medications. 04/02: continues agitated, belittling, verbally aggressive, refusing all medications including for hyperthyroidism. continue to offer medication. 04/03: paranoid there is a conspiracy to hospitalize him. threatening to stick a stick in staff once he is released by commercial journeyman electrician. insists his hyperthyroidism was cured at [facility]. asserts there is NOTHING wrong with him. continue to offer medication. 5/30: irritable, rejecting. verbally abuses MD and sends him away: see you on monday [in court]. continue to offer medication for thyroid condition and mental illness. 04/05 continue tx. suspicious and guarded, accusatory, verbal threats to hurt staff and peers 04/06 intrusive, posturing towards staff and peer who he thinks is not real and is an impostor, continues to make verbal threats to harm him but thinks that because he is not real he may not experience any pain. 04/07: threatening statements and behaviors of yesterday noted. pt sleeping this morning, dismissive of MD. 04/08: asleep days. committed and meds ordered by court. 04/09: on being informed of court order and MD insisting on meds, pt escalated to hurling food item in container against wall at high speed and saying he wished he could do the same to MD's head. pt eventually took court ordered meds PO. sensodyne and excedrin not available in pharmacy (pt requesting them). 04/10: continue tx. Pt accepting medication today. 04/11: Keeping to self. Lying in bed most of morning. Declined to meet with T/W. Pt stated, I'm fine. I don't need anything . Listening to headphones in room. Declined court ordered PO medications; received IM medications. Refused vital signs.continue tx plan. 04/12: got IMs yesterday, took PO this morning. sleepy, no concerns or complaints. 04/13: taking PO meds again. slept 7 hours. sleepy again mid morning refusing interview. continue current mgmt. 04/14: sleeping, rousable. denies being sedated or tired, says he's just bored. no questions or complaints. informed of need to check labs. check lithium level and thyroid labs tonight. 04/15: refusing labs. delusional re his brother harming him. verbally abusive toward MD. spat in floor. happy with improvement in proptosis. 04/16: Lying in bed. Calm. cooperative. guarded. Pt reports feeling tired this morning d/t poor sleep last night. Pt stated, I don't need anything. I didn't sleep well so I'm trying to catch up . denies any issues at this time. denies SI/HI/VH/AH. Continue current tx plan. 04/17: more calm today, less explosive. continue current mgmt. 04/18: continues more calm. tolerating moments of frustration without verbally attacking MD. slept only 2 hours overnight, however. continue current mgmt. 04/19 continues to push boundaries and limits with staff mike around cell phone- 04/20 - aggressive with staff and unpredictable- threw water pitcher at staff behind desk/-when seen by provider passive in bed-denying all compaints/sys- no insight 04/21: appears as per last week. more difficult behaviors around cell phone use, did throw pitcher of water at RN monday over phone use and was restrained. continue current mgmt. 04/22: continues to have conflict around cell phone use. consolidate zyprexa at HS to decrease daytime sedation. 1:1 allegra shift until peer he is accusing of not being a real patient and appears to be targeting discharges tomorrow. 04/23: lithium 0.6 on 600 BID. sleeping better, remains delusional (telling SW who is marginally younger than him that she could be his daughter). just changed zyprexa dosing as of last night. continue current regimen and observe for continued stabilization. T/C slight increase in lithium dosing. 04/24: Laying in bed. guarded. calm. did not want to get out of bed to meet with T/W. Pt reports feeling great today but declined to go into detail. listening to music on unit headphones. Pt stated, I'm fine. I don't need anything . denies any issues at this time. denies SI/HI/VH/AH. Continue current tx plan. 04/25: Laying in bed. keeping to self. calm. paranoid. Discussed incident that occurred with staff last evening. Pt stated, the counselor made up a lie yesterday. I said she looks like my ex-girlfriend. I know they are related. They want to make up a lie to irritate me. They are trying to talk to me so they can use recording devices and make me look some kind of way . listening to music on unit headphones. denies SI/HI/VH/AH. Continue current tx plan. 04/26: Continue current regimen and plans. Increase Zyprexa 20 mg q.h.s. fresh air break withheld 04/27: Continue current regimen and plans 04/28: somewhat less irritable and agitated than last week. however, over the weekend was claiming he was the father of a footballer on TV and also that a staff member is a twin of his ex-GF (and he pushed staff member). TFTs improving. continue current mgmt. 04/29: no change in presentation. continue current mgmt. 04/30: no irritable edge today. calm, pleasant. engaging in small talk. reality testing not pressed. continue current mgmt for now. 05/01: no change in presentation. continue current mgmt. 05/02: BPs coming down, DC beta joanne as pt has been refusing anyway. remains not antagonistic toward MD. using phone appropriately. continue current mgmt otherwise. 05/03 continue 05/04: remains delusional, irritable/labile when delusional system confronted. declines to sign TOMMY for [facility] records. continue current mgmt. 05/06: declining to meet with MD, but does meet with medical student. remains upset about yesterday's confrontation re his delusional system. 05/07: Active on unit. keeping to self. pacing unit hallway while listening to unit headphones. medication compliant. patient reports feeling good ; pt stated, I'm just waiting to leave here. I want to return to my life and do things like go grocery shopping . denies SI/HI/VH/AH. Continue current tx plan. 05/08: stable presentation, delusions not being brought to the surface daily. remains affectively improved from admission. continue current mgmt. 05/09: calm, pleasant. no questions or complaints. continue current mgmt. 05/10: no change in presentation. due to lack of improvement in dental infection Sx, DC PCN and start augmentin. 05/11: no change in presentation. continue current mgmt. 05/12: as for yesterday. dental pain improving a bit. 05/13: expressed to medical student that his brother poisoned him, causing his thyroid disease. no change in presentation. continue current mgmt. 05/14: Pacing unit hallway. keeping to self. patient reports feeling good today; denies any issues at this time. denies SI/HI/VH/AH. per nursing, slept 5 hours. Continue current tx plan. 05/15: slept 6 hours. otherwise isolative, difficult to engage. continue current mgmt. 05/16: slept 7 hours. as for yesterday otherwise. 05/17/25: Slept well, no issue with appetite, skinny and pretty tall. Compliant with medication. No side effects Calm and pleasant upon approach. Some what paranoid. Tangential, however denies other safety concerns. Questions if he is discharging soon. He is on antibiotic for 7 days for mouth pain/tooth pain. We will finish the 7 course up in antibiotic after tonight dose. Then discontinue. 05/18/25: Slept for 5 hours plus hours this morning. In bed most of the shift, no behavior issues. Denies other safety concerns. 05/19: in bed days, up eves. no change in presentation. continue current mgmt. 05/20: no change in presentation. check labs. 05/21: lithium low, TFTs mixed and not all back. increase lithium from 600 BID to 600/900. trend BUN/Cr, with slight elevation. otherwise continue current mgmt. 05/22: no change in presentation. continue current mgmt. 05/23: does not deny someone stole his sperm and impregnated his landlord's child with it. irritable. c/o dental pain, antibx restarted. otherwise continue current mgmt. 05/14: no change in mgt 05/25: more isolative today; no change in mgt 05/26: decreases in methimazole noted. continue psych regimen as is. pt refused to interact with MD today. 05/27: i'm sleeping. no change in presentation. labs tonight. 05/28: no change in behavior. lithium 0.66, BUN stable. continue current mgmt. 05/29: irritable. continue current mgmt. 05/30: no longer in single room. still not engaging, sleeping days. continue current mgmt. 05/31:laying in bed. declined to meet with T/W. pt stated, I want to sleep. I didn't sleep enough . Pt encouraged to reach out to staff if he needs anything. Continue current tx plan. 06/01: Similar to yesterday. laying in bed. Irritable. declined to meet with T/W and pulled bed sheets over head. pt stated, I don't want to talk. I want to sleep . difficult to engage. Continue current tx plan. 06/02: Similar to yesterday. laying in bed. Irritable. declined to meet with T/W. Observed getting drink from kitchen; T/W approached pt and asked if they could speak. patient declined to acknowledge T/W and walked past. Continue current tx plan. 06/03: no change in behavior. continue tx plan. 06/04/25: Passive engaged in the assessment, in bed mostly sleeping this morning which could be interfere with his nighttime. Cover body under the blanket Slept for 4-5 hours last night. Was medication compliant, attended no groups, isolative to self in room. No SI/SIB/HI/AVH expressed. 06/05: continue tx plan. 06/06: reports feeling fine ; continues guarded. difficult to engage. declining to meet with T/W. continue tx plan. 06/07/25: Slept for 4 hours at night, but has been sleeping most of the day yesterday as well. Spent majority of the shift in bed, was medication compliant. Passive engaged in the conversation. He said he will try to change the sleeping pattern so that he can be awake more during the daytime. Appear to be sedated in the morning. No safety behavior. 06/08/25: Slept for 3-4 hours last night, compliant with medications. Denies side effects, denies other safety concerns. Continued to encourage patient to up and down more than on the unit he spent most of the day sleeping. He is pleasant upon approach. No other behavior issues. Denied voices/hallucinations. Suicide thoughts or homicidal thoughts. 06/09: sleeping, minimally rousable. denies problems. continue current mgmt. 06/10: sleeping all day, up most of the night. minimally rousable. denies problems. continue current mgmt. per JAMAICA Arrington: Jaen said when he leaves he can return to [facility]. he was living with a lady there and can go back. He plans to get a job to pay off his debt. He said he owes money because they sent him back here due to losing his passport and he owes them money for the temporary emergency passport and the flight back to the . so his main focus is to get a job. he said he will try things here first and if it doesn't work out he plans to return to [place]. 06/11/25: Passively engaged in conversation while in bed sleeping/resting. Able to answer question appropriately, but seems to be minimized. Denies SI/SIB/HI/AVH. He slept 5 hours last night, spent most of the day in bed sleeping. Attempted to no groups, observed out to the afternoon in the subramanian near the nurse station. No change in presentation. Encourage groups,up and engaged in groups. 06/12: not engaging. no complaints or questions re med changes. cross-taper zyprexa in favor of invega, give MONTERO invega. tonight, decrease zyprexa to 15 mg and start invega 3 mg. otherwise continue current mgmt. 06/13: continues avoidant and disengaged. denies side effects from med change last night. informed cross-titration will advance tonight. decrease zyprexa to 10 mg tonight, increase paliperidone to 6 mg. plan to continue by 5 mg zyprexa and 3 mg paliperidone increments every several days as tolerated until zyprexa DCed and paliperidone at 12 mg QHS. once it is established pt is tolerating PO Paliperidone, invega sustenna to be administered. 06/14: Continue current regimen and plans 06/15: Continue current plans and regimen 06/16: irritable re neuroleptic change. denies side effects or problems with it, however. minimally engageable. increase invega to 9 QHS and decrfease zyprexa to 5 QHS. 06/17/25: Continued to be irritable regarding medication change/titration. However engaged in conversation, hyper verbal, paranoid, reports medication slow his thoughts down and he does not not like it. Poor insight and poor judgment. He thinks he only need lithium, not other medications. Remind patient to continue doing the sleep pattern changing. However his in bed mostly this morning. Slept for 4-5 hours last night. 06/18/25: Slept for 5 hours last night as he continues sleeping during daytime. Compliant with meds, did not c/o side effects.Passingly engaging in assessment. Denies safety concerns. Tolerate the tritation well. Will increase Inveag up to max of 12 tomorrow and Discontinue Olanzepine at HS. Continue to encourage up and out on day so he can sleep better at HS. 06/19/25: Patient slept for 5.5 hours last night, was medication compliant, mostly in his room yesterday but seen more often in the evening. Patient is awake in his room, listen to music, his morning tray was taken away and clean the area. He is very pleasant to talk to today, reports he feels good, denies side effects from medications, denies any safety concerns. Denies feeling sedation, denies anxiety/depression. He is receptive with the plan of medication over the weekends and next week, happy to hear about the medication plan. He also agree with the MONTERO Invega Sustenna on Monday. Encourage him to go out and attended to groups, he said that he will. Reported that he was out for groups a couple of times last week. Discontinue Haldol p.r.n.. Discontinue scheduled Zyprexa 5 mg at bedtime. Only on Zyprexa at g IM daily p.r.n. as backup orders if refused Invega. Invega 12 mg at bedtime. Plan to monitor over the weekends and will give long- acting injection on Monday if tolerate with the p.o. well Reduce Seroquel 200 mg p.r.n. at bedtime to 100 p.r.n. at bedtime for insomnia. Seroquel 50 mg b.i.d. p.r.n. for agitation. Discontinue Motrin. Patient on lithium. Labs were for MondayJune 20: CMP, TSH with free T4. 06/20/25: In bed most of the day, was compliant with medication, however refused labs work. Re- scheduled for Monday. Continue with Invega 12 mg at bedtime. We will reassess and offer long-acting injection on Monday. Continue to encourage patient to get up and go to some groups. No safety concerns expressed. Minimal peer and staff interaction. 06/21: no change in presentation. start MONTERO monday. no s/e from invega. otherwise continue current mgmt. 06/22: stable. continue current mgmt. 06/23/25: More awake and alert. Review with patient regarding policy for his phone use BID 30min each time, patient is educated on compliant with policy. He asks for more 5-10 min extra headphone use at night on the weekends after 2300. Once again, redirected for unit rules. He agrees with MONTERO which is scheduled today. Discontinue Invega PO Invega Sustenna 234mg IM once. Will monitor for possible side effects and sedation. Will offer 156mg after 1 week. If mentaly stable with 156mg, will maintain at this dose, if not will offer 234mg Monthly. 06/24/25: Slept for 5 hours last night, but also went to bed around 7 tonight p.m. last night per his report. He also attended to groups in the afternoon yesterday. Compliant with medications. No side effects from Invega Sustenna. He is engaged in full conversation today why he is in bed, denies safety concerns. Observe he is on the unit, social with peers and staff in longer period of time. Appeared to be happy. He plans to take shower today. Reported that he was up early but he does not feel hungry in the morning. He is making progress, not too sedated during daytime since switching his medication. Appears to do well so far with Invega Sustenna. 06/25/25: Patient slept for 4 hours last night, however he reported was napping in the afternoon for couple hours which affect his sleeping pattern at night. Educate patient to not napping late in the evening. He is receptive. Compliant with medications, no side effects. He reports his did not shower yesterday but he will today. He is awake in his room not sleeping, engage in full conversation, no delusional or paranoid statements make. He is visible at times. Continued to improve in mood, engaging in other activities on the unit. Denies other safety concerns. Denies hallucinations. No irritability mood, not sedated during day time compared to when he was taking olanzapine. We will schedule Invega Sustenna 156 next Monday. Work with social work administrator to see where he will return to. He probably needs [facility] to manage medication. 06/26/25: He slept for 5 hours, compliant with medications. Denies side effects. He self-reported that he went to bed last night and was able to fall asleep by 01:00 and able to stay asleep whole night. Denies safety concerns. I spoke with him in length today regarding aftercare. He [facility] [place] to ask them regarding his heart condition. He thinks people was lying to get him to the hospital as he does not have mental health illnesses. He believes that he has been exactly the same he was seen he was a little, and at he able to remember everything in the past. He also reports that he used to use [employer] in [place]. At he does not want [facility] application. I explained to him that in order to be a candidate patient have to be a safe that he has mental health issues, so people can submit the application, and from the [facility] worker will contact him to do assessment if he qualify for any services that they can provide. Patient is receptive application, social work administrator was notified. Patient also would like to have services with [facility] in [place]. He showered yesterday morning, did not go to groups yesterday, but he will go to some groups today per his plan for the day, more awake, engaged in conversation, no irritability. However, continued to be poor insight of his illnesses. He does not want to return to his brother I have not talking to him for since 2021. He reported that that his brother told other people that patient was trying to kill his brother with a knife. He had question regarding the Invega Sustenna which is scheduled for next Monday. He does having good memory for whatever we discussed the past couple of days. He plans to continue taking meds as prescribed after discharge. However, with unsafe discharge plan at this current time, I would think he will relapse shortly after discharge if he does not have good support system in community. He has no where to turn, and limited support in community. He does not think MJ will affect his brain functions and mental status. He would potential smoke it when he leaves. 06/27/25: Slept for 6 hours last night which is improving, continue to educate patient not to nap late in the evening so that he can sleep better at night. He still does not want to change medication at bedtime earlier than 2300. Observe he is out on the unit, listen to music, social, and attended groups, he also tried to drink couple of coffee to keep him awake during the daytime. Educate patient not to much coffee late in the afternoon. He is medication compliant. Denies side effects. Talk to social work administrator this morning that he will do [facility] application on Monday. Denies safety concerns. Have poor insight of mental health. 06/28/2025: No changes to current plan. Invega Sustenna 156 mg IM scheduled on 06/30 at 10:00 06/29: no changes 06/30/25: Got Second loading dose of Invega Sustenna today. visible, social and appropriate. Did not attend groups over the weekends but he plans to attend groups today. Report sleeping better at night. Do not want HS scheduled time to change. Continue to work with for DMH application, OP services. He would like to FLU with [facility] in [place]. Educate patient of risk harming kidneys if taking [place] with NSAIDs, Motrin. Continue to reinforce. Invega Sustenna 156mg IM. Pending effects. 07/01/25: Continued to improve in mood, sleep, and appetite. Compliant with medications. He is visible, intermittently attended groups. Engaged in treatment, engaged in encourage cessation with this provider and social work administrator. He side the DMH application, he also signed consent for [facility] so that social work administrator can work on discharge plan. Per social work administrator, patient is on the waiting list which is a definite when he will have the bed with DM services. Denies safety concerns, denies side effects from medications. 07/02/25: Slept for 6 hours, compliant with meds, intermittently attended groups. No behavior issues. Worry/anxious regarding [facility] services and assessment coming this Monday. He is paranoid regarding what his brother will talk about when staff call. He thinks his brother will make up story and lie to us regarding reasons brought him to the hospital. Denies safety concerns. Denies hallucination. Continue to have poor insight of mental illnesses. [facility] will do assessment on Monday at 1000. 07/03/25: Patient slept for 8 hours which is much more hours than normal the past weeks, continued to improve with slept parents, compliant with medications. Reported that he has severe headache earlier today, took Excedrin and is tolerable during assessment. Patient was talking about how he was paranoid when he was at [facility] due to lack of sleep. Educate patient what is mental health illnesses. He is very simple, accepted education. Isolate this morning in his room. He plans to just rest this morning due to the headache. Denies safety concerns. Calm, pleasant, and cooperative upon approach. Explained more in details of of [facility] services. He is looking forward to having assessment tomorrow by 10:00 with them. 07/04/25: Patient slept well, normal sleeping pattern at night, he slept for 8 hours, compliant with medications. Sinus congestion is improved. He met with [facility] workers for 1-1/2 hours this morning. However due to his tangential thoughts, [facility] we will need to come back to see him again next week on . He feels a little bit disappointed is is not fast enough that the way that he thinks things are not easy . He asked question what is the long term. Explained to him, and appeared that he does not want to be in the long term, he does not not feel he has had mental health. Continued to be poor insight of the illnesses which could be at his baseline. [facility] will refer patient to PACT team. Denies safety concerns, he is visible, social inappropriate. Attended groups, no behavior issues 07/05: Keeping to self. Patient reports feeling fine today; pt states he is focused on leaving soon. Patient stated, I hope I can leave soon . denies SI/HI/VH/AH. denies any issues at this time. Continue current tx plan. 07/06: Continue current tx plan. Patient educated on: medication risk/benefits Reason for continued inpatient stay Substantial Risk for: med/psych decompensation Time Spent With Patient Time: Total time managing care of this patient today _15___ minutes.
[2025-07-06 13:04] VITALS: BP 141/77; PULSE 89; RESP 17; TEMP 37; O2SAT 100
[2025-07-06 22:34] VITALS: RESP 16
[2025-07-07] MEDS: EXCEDRIN 2 EACH PO (06:31)
[2025-07-07 07:10] VITALS: BP 119/62; PULSE 81; RESP 14; TEMP 36.5; O2SAT 99
--- NOTE | 2025-07-07 13:23 | P.PNPSI_ITS ---
Subjective Subjective Date of Service: 07/07/25 Reason For Visit: psychotic disorder Interim History: Out of bed for breakfast; back to bed to nap rest of the morning. Patient continues to report feeling good; focused on discharge. denies any issues at this time. States he doesn't need anything . Continue current tx plan. Medication Compliance: Yes Side effects from medications: No Attending Groups: No Mental Status Exam Mental Status Exam Patient Appearance: Appropriate Patient Orientation: Person, Place, Time and Situation Level of Consciousness: Drowsy Patient Behavior: Guarded and Cooperative Mood Description: Calm Affect Description: Calm Patient Cognition Impaired: No Ability to Follow Directions: Good Speech Pattern: Clear Memory Description: Intact Hallucinations: None Thought Process: Intact Thought Content: positive for Intact Diagnostics Vital Signs (24Hr): Vital Signs - 24 hr 07/06/25 22:34 07/07/25 07:10 Temperature 97.7 F Pulse Rate 81 Respiratory Rate 16 14 Blood Pressure 119/62 Pulse Oximetry 99 Oxygen Delivery Method Room Air BMI result Body Mass Index 23.8 Labs 06/25/25 08:02 06/20/25 20:35 Medications Medications Current Medications Acetaminophen (Acetaminophen 325 Mg Tablet) 650 mg PO Q4H PRN PRN Reason: Pain, Mild (Pain Scale 1-3) Last Admin: 07/06/25 22:53 Dose: 650 mg Al Hydroxide/Mg Hydroxide (Magnesium Hydrox/Alum Hydrox 30 Ml Oral.Susp) 30 ml PO Q6H PRN PRN Reason: Heart burn Benzocaine (Benzocaine 20 % Oral Gel 14 Gm Tube) 1 appl MUCOUS MEM QID PRN; Protocol PRN Reason: Mouth Sore Pain Last Admin: 04/26/25 18:33 Dose: 1 appl Diazepam (Diazepam 10 Mg/2 Ml Cartridge) 10 mg IM BID PRN PRN Reason: refusal of lithium, per everett Last Admin: 04/11/25 09:56 Dose: 10 mg [place] Carbonate ([place] Carbonate Er 300 Mg Tablet.Er) 600 mg PO DAILY [facility] Last Admin: 07/07/25 10:15 Dose: 600 mg [place] Carbonate ([place] Carbonate Er 450 Mg Tablet.Er) 900 mg PO DAILY@2300 [facility] Last Admin: 07/06/25 22:53 Dose: 900 mg Magnesium Hydroxide (Milk Of Magnesia 30 Ml Oral.Susp) 30 ml PO DAILY PRN PRN Reason: Constipation Methimazole (Methimazole 10 Mg Tablet) 10 mg PO DAILY [facility] Last Admin: 07/07/25 10:15 Dose: 10 mg Nicotine (Nicotine 21 Mg Patch.Td24) 21 mg TRANSDERMA DAILY PRN PRN Reason: nicotine cravings Last Admin: 04/12/25 17:06 Dose: 21 mg Nicotine Polacrilex (Nicotine Polacrilex Lozenge 2 Mg Lozenge) 2 mg BUCCAL Q1H PRN PRN Reason: Nicotine Cravings Last Admin: 04/30/25 08:49 Dose: 2 mg Patient Own Medication Excedrin 250/250/65mg 2 each PO Q8H PRN PRN Reason: Migraine Headache Last Admin: 07/07/25 06:31 Dose: 2 each Olanzapine (Olanzapine 10 Mg Vial) 10 mg IM DAILY PRN PRN Reason: if refuse Invega PO Pseudoephedrine HCl (Pseudoephedrine Hcl 30 Mg Tablet) 30 mg PO Q6H PRN PRN Reason: Congestion Last Admin: 07/03/25 21:18 Dose: 30 mg Quetiapine Fumarate (Quetiapine Fumarate 100 Mg Tablet) 100 mg PO BEDTIME PRN PRN Reason: insomnia Quetiapine Fumarate (Quetiapine Fumarate 50 Mg Tablet) 50 mg PO BID PRN PRN Reason: agitation Sodium Chloride (Sodium Chloride 0.65 % Nasal 44 Ml Sprbtl) 1 spray NOSTRIL-B Q4H PRN PRN Reason: Congestion Last Admin: 07/03/25 23:03 Dose: 1 spray Allergies Allergies Allergy/AdvReac Type Severity Reaction Status Date / Time No Known Allergies Allergy Verified 03/26/25 14:24 Assessment & Plan Assessment & Plan (1) Graves disease: Status: Acute Code(s): E05.00 - Thyrotoxicosis with diffuse goiter without thyrotoxic crisis or storm Assessment and Plan: Hyperthyroidism/Graves disease. He will need follow up with endocrinology as an outpatient He will also need a primary care doctor referral as an outpatient Discussed with Dr. Bejarano, patient will need free T4 weekly Decrease Methimazole to 15 mgs daily for three days and then 10 mgs daily- discussed with patient he is aware of plan and rationale. TSH and free T4 every 4 weeks. No need to draw thyroid stimulation immunology or TSH receptor AB (2) Dental abscess: Status: Acute Code(s): K04.7 - Periapical abscess without sinus Assessment and Plan: Carious tooth/dental infection Recently treated with PEN VK 500 mg q.6 hours for 7 days Patient will need follow up with dentist on discharge for tooth extraction Motrin helping pain. (3) Becca: Status: Acute Code(s): F30.9 - Manic episode, unspecified Plan 03/26: offer lithium and seroquel for becca. continue methimazole and beta joanne for [place] as [place] [facility] [place] trend TFTs. 12b. 03/27: taking methimazole and beta joanne. refused HS meds last night, took morning meds today. continue to encourage medication compliance. 03/28: intermittently taking meds. wants all meds in morning. pressured, manic, paranoid delusions. encouraged to take lithium but states he will not. all meds ordered for morning. 03/29: Keeping to self. no groups. observed laying in bed listening to music on unit headphones. pleasant. Pt reports feeling good today and sleeping well. declined lithium and zyprexa. denies SI/HI/VH/AH. continue current tx plan. 03/30:Irritable. upset he was unable to use his personal hygiene products. Per nursing, pt threatened staff and squeezed tooth paste throughout unit hallway to show his frustration. Pt was able to calm down after speaking with security. declined medications. 03/31: Keeping to self. laying in bed listening to music. refused medications. calm today. Patient reports feeling great ; pt stated, nothing is wrong with me. I'm waiting so I can leave tomorrow. I'm hoping for the best . denies SI/HI/VH/AH. per nursing, slept 6 hours. Continue current tx plan. 04/01: variably calm on the unit versus highly agitated. paranoid delusions, irritability, lability continue. seems to believe MD has met him prior to the present hospitalization and is stalking him. believes brother behind conspiracy to have him psychiatrically hospitalized. has been refusing all medications, including for hyperthyroidism. informed he would be filed on. filed. continue to offer medications. 04/02: continues agitated, belittling, verbally aggressive, refusing all medications including for hyperthyroidism. continue to offer medication. 04/03: paranoid there is a conspiracy to hospitalize him. threatening to stick a stick in staff once he is released by intelligence agent. insists his hyperthyroidism was cured at [facility]. asserts there is NOTHING wrong with him. continue to offer medication. 04/04: irritable, rejecting. verbally abuses MD and sends him away: see you on monday [in court]. continue to offer medication for thyroid condition and mental illness. 04/05 continue tx. suspicious and guarded, accusatory, verbal threats to hurt staff and peers 04/06 intrusive, posturing towards staff and peer who he thinks is not real and is an impostor, continues to make verbal threats to harm him but thinks that because he is not real he may not experience any pain. 04/07: threatening statements and behaviors of yesterday noted. pt sleeping this morning, dismissive of MD. 04/08: asleep days. committed and meds ordered by court. 04/09: on being informed of court order and MD insisting on meds, pt escalated to hurling food item in container against wall at high speed and saying he wished he could do the same to MD's head. pt eventually took court ordered meds PO. sensodyne and excedrin not available in pharmacy (pt requesting them). 04/10: continue tx. Pt accepting medication today. 04/11: Keeping to self. Lying in bed most of morning. Declined to meet with T/W. Pt stated, I'm fine. I don't need anything . Listening to headphones in room. Declined court ordered PO medications; received IM medications. Refused vital signs.continue tx plan. 04/12: got IMs yesterday, took PO this morning. sleepy, no concerns or complaints. 04/13: taking PO meds again. slept 7 hours. sleepy again mid morning refusing interview. continue current mgmt. 04/14: sleeping, rousable. denies being sedated or tired, says he's just bored. no questions or complaints. informed of need to check labs. check lithium level and thyroid labs tonight. 04/15: refusing labs. delusional re his brother harming him. verbally abusive toward MD. spat in floor. happy with improvement in proptosis. 06/11: Lying in bed. Calm. cooperative. guarded. Pt reports feeling tired this morning d/t poor sleep last night. Pt stated, I don't need anything. I didn't sleep well so I'm trying to catch up . denies any issues at this time. denies SI/HI/VH/AH. Continue current tx plan. 04/17: more calm today, less explosive. continue current mgmt. 04/18: continues more calm. tolerating moments of frustration without verbally attacking MD. slept only 2 hours overnight, however. continue current mgmt. 04/19 continues to push boundaries and limits with staff mike around cell phone- 04/20 - aggressive with staff and unpredictable- threw water pitcher at staff behind desk/-when seen by provider passive in bed-denying all compaints/sys- no insight 04/21: appears as per last week. more difficult behaviors around cell phone use, did throw pitcher of water at RN monday over phone use and was restrained. continue current mgmt. 04/22: continues to have conflict around cell phone use. consolidate zyprexa at HS to decrease daytime sedation. 1:1 allegra shift until peer he is accusing of not being a real patient and appears to be targeting discharges tomorrow. 04/23: lithium 0.6 on 600 BID. sleeping better, remains delusional (telling SW who is marginally younger than him that she could be his daughter). just changed zyprexa dosing as of last night. continue current regimen and observe for continued stabilization. T/C slight increase in lithium dosing. 04/24: Laying in bed. guarded. calm. did not want to get out of bed to meet with T/W. Pt reports feeling great today but declined to go into detail. listening to music on unit headphones. Pt stated, I'm fine. I don't need anything . denies any issues at this time. denies SI/HI/VH/AH. Continue current tx plan. 04/25: Laying in bed. keeping to self. calm. paranoid. Discussed incident that occurred with staff last evening. Pt stated, the counselor made up a lie yesterday. I said she looks like my ex-girlfriend. I know they are related. They want to make up a lie to irritate me. They are trying to talk to me so they can use recording devices and make me look some kind of way . listening to music on unit headphones. denies SI/HI/VH/AH. Continue current tx plan. 04/26: Continue current regimen and plans. Increase Zyprexa 20 mg q.h.s. fresh air break withheld 04/27: Continue current regimen and plans 04/28: somewhat less irritable and agitated than last week. however, over the weekend was claiming he was the father of a footballer on TV and also that a staff member is a twin of his ex-GF (and he pushed staff member). TFTs improving. continue current mgmt. 04/29: no change in presentation. continue current mgmt. 04/30: no irritable edge today. calm, pleasant. engaging in small talk. reality testing not pressed. continue current mgmt for now. 05/01: no change in presentation. continue current mgmt. 05/02: BPs coming down, DC beta joanne as pt has been refusing anyway. remains not antagonistic toward MD. using phone appropriately. continue current mgmt otherwise. 05/03 continue 05/04: remains delusional, irritable/labile when delusional system confronted. declines to sign TOMMY for [facility] records. continue current mgmt. 05/06: declining to meet with MD, but does meet with medical student. remains upset about yesterday's confrontation re his delusional system. 05/07: Active on unit. keeping to self. pacing unit hallway while listening to unit headphones. medication compliant. patient reports feeling good ; pt stated, I'm just waiting to leave here. I want to return to my life and do things like go grocery shopping . denies SI/HI/VH/AH. Continue current tx plan. 05/08: stable presentation, delusions not being brought to the surface daily. remains affectively improved from admission. continue current mgmt. 05/09: calm, pleasant. no questions or complaints. continue current mgmt. 05/10: no change in presentation. due to lack of improvement in dental infection Sx, DC PCN and start augmentin. 05/11: no change in presentation. continue current mgmt. 05/12: as for yesterday. dental pain improving a bit. 05/13: expressed to medical student that his brother poisoned him, causing his thyroid disease. no change in presentation. continue current mgmt. 05/14: Pacing unit hallway. keeping to self. patient reports feeling good today; denies any issues at this time. denies SI/HI/VH/AH. per nursing, slept 5 hours. Continue current tx plan. 05/15: slept 6 hours. otherwise isolative, difficult to engage. continue current mgmt. 05/16: slept 7 hours. as for yesterday otherwise. 05/17/25: Slept well, no issue with appetite, skinny and pretty tall. Compliant with medication. No side effects Calm and pleasant upon approach. Some what paranoid. Tangential, however denies other safety concerns. Questions if he is discharging soon. He is on antibiotic for 7 days for mouth pain/tooth pain. We will finish the 7 course up in antibiotic after tonight dose. Then discontinue. 05/18/25: Slept for 5 hours plus hours this morning. In bed most of the shift, no behavior issues. Denies other safety concerns. 05/19: in bed days, up eves. no change in presentation. continue current mgmt. 05/20: no change in presentation. check labs. 05/21: lithium low, TFTs mixed and not all back. increase lithium from 600 BID to 600/900. trend BUN/Cr, with slight elevation. otherwise continue current mgmt. 05/22: no change in presentation. continue current mgmt. 05/23: does not deny someone stole his sperm and impregnated his landlord's child with it. irritable. c/o dental pain, antibx restarted. otherwise continue current mgmt. 05/14: no change in mgt 05/25: more isolative today; no change in mgt 05/26: decreases in methimazole noted. continue psych regimen as is. pt refused to interact with MD today. 05/27: i'm sleeping. no change in presentation. labs tonight. 05/28: no change in behavior. lithium 0.66, BUN stable. continue current mgmt. 05/29: irritable. continue current mgmt. 05/30: no longer in single room. still not engaging, sleeping days. continue current mgmt. 05/31:laying in bed. declined to meet with T/W. pt stated, I want to sleep. I didn't sleep enough . Pt encouraged to reach out to staff if he needs anything. Continue current tx plan. 06/01: Similar to yesterday. laying in bed. Irritable. declined to meet with T/W and pulled bed sheets over head. pt stated, I don't want to talk. I want to sleep . difficult to engage. Continue current tx plan. 06/02: Similar to yesterday. laying in bed. Irritable. declined to meet with T/W. Observed getting drink from kitchen; T/W approached pt and asked if they could speak. patient declined to acknowledge T/W and walked past. Continue current tx plan. 06/03: no change in behavior. continue tx plan. 06/04/25: Passive engaged in the assessment, in bed mostly sleeping this morning which could be interfere with his nighttime. Cover body under the blanket Slept for 4-5 hours last night. Was medication compliant, attended no groups, isolative to self in room. No SI/SIB/HI/AVH expressed. 06/05: continue tx plan. 06/06: reports feeling fine ; continues guarded. difficult to engage. declining to meet with T/W. continue tx plan. 06/07/25: Slept for 4 hours at night, but has been sleeping most of the day yesterday as well. Spent majority of the shift in bed, was medication compliant. Passive engaged in the conversation. He said he will try to change the sleeping pattern so that he can be awake more during the daytime. Appear to be sedated in the morning. No safety behavior. 06/08/25: Slept for 3-4 hours last night, compliant with medications. Denies side effects, denies other safety concerns. Continued to encourage patient to up and down more than on the unit he spent most of the day sleeping. He is pleasant upon approach. No other behavior issues. Denied voices/hallucinations. Suicide thoughts or homicidal thoughts. 06/09: sleeping, minimally rousable. denies problems. continue current mgmt. 06/10: sleeping all day, up most of the night. minimally rousable. denies problems. continue current mgmt. per JAMAICA Arrington: Jean said when he leaves he can return to [facility]. he was living with a lady there and can go back. He plans to get a job to pay off his debt. He said he owes money because they sent him back here due to losing his passport and he owes them money for the temporary emergency passport and the flight back to the [place]. so his main focus is to get a job. he said he will try things here first and if it doesn't work out he plans to return to [place]. 06/11/25: Passively engaged in conversation while in bed sleeping/resting. Able to answer question appropriately, but seems to be minimized. Denies SI/SIB/HI/AVH. He slept 5 hours last night, spent most of the day in bed sleeping. Attempted to no groups, observed out to the afternoon in the subramanian near the nurse station. No change in presentation. Encourage groups,up and engaged in groups. 06/12: not engaging. no complaints or questions re med changes. cross-taper zyprexa in favor of invega, give MONTERO invega. tonight, decrease zyprexa to 15 mg and start invega 3 mg. otherwise continue current mgmt. 06/13: continues avoidant and disengaged. denies side effects from med change last night. informed cross-titration will advance tonight. decrease zyprexa to 10 mg tonight, increase paliperidone to 6 mg. plan to continue by 5 mg zyprexa and 3 mg paliperidone increments every several days as tolerated until zyprexa DCed and paliperidone at 12 mg QHS. once it is established pt is tolerating PO Paliperidone, invega sustenna to be administered. 06/14: Continue current regimen and plans 06/15: Continue current plans and regimen 06/16: irritable re neuroleptic change. denies side effects or problems with it, however. minimally engageable. increase invega to 9 QHS and decrfease zyprexa to 5 QHS. 06/17/25: Continued to be irritable regarding medication change/titration. However engaged in conversation, hyper verbal, paranoid, reports medication slow his thoughts down and he does not not like it. Poor insight and poor judgment. He thinks he only need lithium, not other medications. Remind patient to continue doing the sleep pattern changing. However his in bed mostly this morning. Slept for 4-5 hours last night. 06/18/25: Slept for 5 hours last night as he continues sleeping during daytime. Compliant with meds, did not c/o side effects.Passingly engaging in assessment. Denies safety concerns. Tolerate the tritation well. Will increase Inveag up to max of 12 tomorrow and Discontinue Olanzepine at HS. Continue to encourage up and out on day so he can sleep better at HS. 06/19/25: Patient slept for 5.5 hours last night, was medication compliant, mostly in his room yesterday but seen more often in the evening. Patient is awake in his room, listen to music, his morning tray was taken away and clean the area. He is very pleasant to talk to today, reports he feels good, denies side effects from medications, denies any safety concerns. Denies feeling sedation, denies anxiety/depression. He is receptive with the plan of medication over the weekends and next week, happy to hear about the medication plan. He also agree with the MONTERO Invega Sustenna on Monday. Encourage him to go out and attended to groups, he said that he will. Reported that he was out for groups a couple of times last week. Discontinue Haldol p.r.n.. Discontinue scheduled Zyprexa 5 mg at bedtime. Only on 10 Zyprexa at g IM daily p.r.n. as backup orders if refused Invega. Invega 12 mg at bedtime. Plan to monitor over the weekends and will give long- acting injection on Monday if tolerate with the p.o. well Reduce Seroquel 200 mg p.r.n. at bedtime to 100 p.r.n. at bedtime for insomnia. Seroquel 50 mg b.i.d. p.r.n. for agitation. Discontinue Motrin. Patient on lithium. Labs were for MondayJune 20: CMP, TSH with free T4. 06/20/25: In bed most of the day, was compliant with medication, however refused labs work. Re- scheduled for Monday. Continue with Invega 12 mg at bedtime. We will reassess and offer long-acting injection on Monday. Continue to encourage patient to get up and go to some groups. No safety concerns expressed. Minimal peer and staff interaction. 06/21: no change in presentation. start MONTERO monday. no s/e from invega. otherwise continue current mgmt. 06/22: stable. continue current mgmt. 06/23/25: More awake and alert. Review with patient regarding policy for his phone use BID 30min each time, patient is educated on compliant with policy. He asks for more 5-10 min extra headphone use at night on the weekends after 2300. Once again, redirected for unit rules. He agrees with MONTERO which is scheduled today. Discontinue Invega PO Invega Sustenna 234mg IM once. Will monitor for possible side effects and sedation. Will offer 156mg after 1 week. If mentaly stable with 156mg, will maintain at this dose, if not will offer 234mg Monthly. 06/24/25: Slept for 5 hours last night, but also went to bed around 7 tonight p.m. last night per his report. He also attended to groups in the afternoon yesterday. Compliant with medications. No side effects from Invega Sustenna. He is engaged in full conversation today why he is in bed, denies safety concerns. Observe he is on the unit, social with peers and staff in longer period of time. Appeared to be happy. He plans to take shower today. Reported that he was up early but he does not feel hungry in the morning. He is making progress, not too sedated during daytime since switching his medication. Appears to do well so far with Invega Sustenna. 06/25/25: Patient slept for 4 hours last night, however he reported was napping in the afternoon for couple hours which affect his sleeping pattern at night. Educate patient to not napping late in the evening. He is receptive. Compliant with medications, no side effects. He reports his did not shower yesterday but he will today. He is awake in his room not sleeping, engage in full conversation, no delusional or paranoid statements make. He is visible at times. Continued to improve in mood, engaging in other activities on the unit. Denies other safety concerns. Denies hallucinations. No irritability mood, not sedated during day time compared to when he was taking olanzapine. We will schedule Invega Sustenna 156 next Monday. Work with social media campaign manager to see where he will return to. He probably needs [facility] to manage medication. 06/26/25: He slept for 5 hours, compliant with medications. Denies side effects. He self-reported that he went to bed last night and was able to fall asleep by 01:00 and able to stay asleep whole night. Denies safety concerns. I spoke with him in length today regarding aftercare. He thinks he will go to the hospital in [place] to ask them regarding his heart condition. He thinks people was lying to get him to the hospital as he does not have mental health illnesses. He believes that he has been exactly the same he was seen he was a little, and at he able to remember everything in the past. He also reports that he used to use [facility] in [place]. At he does not want [facility] application. I explained to him that in order to be a candidate patient have to be a safe that he has mental health issues, so people can submit the application, and from the [facility] worker will contact him to do assessment if he qualify for any services that they can provide. Patient is receptive application, social media campaign manager was notified. Patient also would like to have services with [facility] in [place]. He showered yesterday morning, did not go to groups yesterday, but he will go to some groups today per his plan for the day, more awake, engaged in conversation, no irritability. However, continued to be poor insight of his illnesses. He does not want to return to his brother I have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
[2025-07-07 20:00] VITALS: BP 155/77; PULSE 73; RESP 16; TEMP 36.4; O2SAT 100
--- NOTE | 2025-07-08 15:13 | P.PNPSI_ITS ---
Subjective Subjective Date of Service: 07/08/25 Reason For Visit: psychotic disorder Interim History: lying in bed, rousable. somnolent. not engaged. no complaints or requests. per staff, taking meds. slept much of the day and night. relaxed. more time in milieu during the day recently, however. Mental Status Exam Mental Status Exam Narrative: He is under blanket, in bed sleeping. Passively engaging in assessment. Denies safety concerns. No SI//SIB/HI/AVH expressed. Isolative, in bed most of the day. Diagnostics Vital Signs (24Hr): Vital Signs - 24 hr 07/07/25 20:00 Temperature 97.5 F Pulse Rate 73 Respiratory Rate 16 Blood Pressure 155/77 H Pulse Oximetry 100 Oxygen Delivery Method Room Air BMI result Body Mass Index 23.8 Labs 06/25/25 08:02 06/20/25 20:35 Medications Medications Current Medications Acetaminophen (Acetaminophen 325 Mg Tablet) 650 mg PO Q4H PRN PRN Reason: Pain, Mild (Pain Scale 1-3) Last Admin: 07/06/25 22:53 Dose: 650 mg Al Hydroxide/Mg Hydroxide (Magnesium Hydrox/Alum Hydrox 30 Ml Oral.Susp) 30 ml PO Q6H PRN PRN Reason: Heart burn Benzocaine (Benzocaine 20 % Oral Gel 14 Gm Tube) 1 appl MUCOUS MEM QID PRN; Protocol PRN Reason: Mouth Sore Pain Last Admin: 04/26/25 18:33 Dose: 1 appl Diazepam (Diazepam 10 Mg/2 Ml Cartridge) 10 mg IM BID PRN PRN Reason: refusal of lithium, per everett Last Admin: 04/11/25 09:56 Dose: 10 mg Hamill Carbonate (Hamill Carbonate Er 300 Mg Tablet.Er) 600 mg PO DAILY [facility] Last Admin: 07/08/25 10:00 Dose: 600 mg Hamill Carbonate (Hamill Carbonate Er 450 Mg Tablet.Er) 900 mg PO DAILY@2300 [facility] Last Admin: 07/07/25 22:25 Dose: 900 mg Magnesium Hydroxide (Milk Of Magnesia 30 Ml Oral.Susp) 30 ml PO DAILY PRN PRN Reason: Constipation Methimazole (Methimazole 10 Mg Tablet) 10 mg PO DAILY [facility] Last Admin: 07/08/25 10:00 Dose: 10 mg Nicotine (Nicotine 21 Mg Patch.Td24) 21 mg TRANSDERMA DAILY PRN PRN Reason: nicotine cravings Last Admin: 04/12/25 17:06 Dose: 21 mg Nicotine Polacrilex (Nicotine Polacrilex Lozenge 2 Mg Lozenge) 2 mg BUCCAL Q1H PRN PRN Reason: Nicotine Cravings Last Admin: 04/30/25 08:49 Dose: 2 mg Patient Own Medication Excedrin 250/250/65mg 2 each PO Q8H PRN PRN Reason: Migraine Headache Last Admin: 07/07/25 06:31 Dose: 2 each Olanzapine (Olanzapine 10 Mg Vial) 10 mg IM DAILY PRN PRN Reason: if refuse Invega PO Pseudoephedrine HCl (Pseudoephedrine Hcl 30 Mg Tablet) 30 mg PO Q6H PRN PRN Reason: Congestion Last Admin: 07/03/25 21:18 Dose: 30 mg Quetiapine Fumarate (Quetiapine Fumarate 100 Mg Tablet) 100 mg PO BEDTIME PRN PRN Reason: insomnia Quetiapine Fumarate (Quetiapine Fumarate 50 Mg Tablet) 50 mg PO BID PRN PRN Reason: agitation Sodium Chloride (Sodium Chloride 0.65 % Nasal 44 Ml Sprbtl) 1 spray NOSTRIL-B Q4H PRN PRN Reason: Congestion Last Admin: 07/03/25 23:03 Dose: 1 spray Allergies Allergies Allergy/AdvReac Type Severity Reaction Status Date / Time No Known Allergies Allergy Verified 03/26/25 14:24 Assessment & Plan Assessment & Plan (1) Graves disease: Status: Acute Code(s): E05.00 - Thyrotoxicosis with diffuse goiter without thyrotoxic crisis or storm Assessment and Plan: Hyperthyroidism/Graves disease. He will need follow up with endocrinology as an outpatient He will also need a primary care doctor referral as an outpatient Discussed with Dr. Bejarano, patient will need free T4 weekly Decrease Methimazole to 15 mgs daily for three days and then 10 mgs daily- discussed with patient he is aware of plan and rationale. TSH and free T4 every 4 weeks. No need to draw thyroid stimulation immunology or TSH receptor AB (2) Dental abscess: Status: Acute Code(s): K04.7 - Periapical abscess without sinus Assessment and Plan: Carious tooth/dental infection Recently treated with PEN VK 500 mg q.6 hours for 7 days Patient will need follow up with dentist on discharge for tooth extraction Motrin helping pain. (3) Becca: Status: Acute Code(s): F30.9 - Manic episode, unspecified Plan 03/26: offer lithium and seroquel for becca. continue methimazole and beta joanne for hyperthy[place] [facility] [place] trend TFTs. 12b. 03/27: taking methimazole and beta joanne. refused HS meds last night, took morning meds today. continue to encourage medication compliance. 03/28: intermittently taking meds. wants all meds in morning. pressured, manic, paranoid delusions. encouraged to take lithium but states he will not. all meds ordered for morning. 03/29: Keeping to self. no groups. observed laying in bed listening to music on unit headphones. pleasant. Pt reports feeling good today and sleeping well. declined lithium and zyprexa. denies SI/HI/VH/AH. continue current tx plan. 03/30:Irritable. upset he was unable to use his personal hygiene products. Per nursing, pt threatened staff and squeezed tooth paste throughout unit hallway to show his frustration. Pt was able to calm down after speaking with security. declined medications. 03/31: Keeping to self. laying in bed listening to music. refused medications. calm today. Patient reports feeling great ; pt stated, nothing is wrong with me. I'm waiting so I can leave tomorrow. I'm hoping for the best . denies SI/HI/VH/AH. per nursing, slept 6 hours. Continue current tx plan. 04/01: variably calm on the unit versus highly agitated. paranoid delusions, irritability, lability continue. seems to believe MD has met him prior to the present hospitalization and is stalking him. believes brother behind conspiracy to have him psychiatrically hospitalized. has been refusing all medications, including for hyperthyroidism. informed he would be filed on. filed. continue to offer medications. 04/02: continues agitated, belittling, verbally aggressive, refusing all medications including for hyperthyroidism. continue to offer medication. 04/03: paranoid there is a conspiracy to hospitalize him. threatening to stick a stick in staff once he is released by parts facilitator. insists his hyperthyroidism was cured at [facility]. asserts there is NOTHING wrong with him. continue to offer medication. 04/04: irritable, rejecting. verbally abuses MD and sends him away: see you on monday [in court]. continue to offer medication for thyroid condition and mental illness. 04/05 continue tx. suspicious and guarded, accusatory, verbal threats to hurt staff and peers 04/06 intrusive, posturing towards staff and peer who he thinks is not real and is an impostor, continues to make verbal threats to harm him but thinks that because he is not real he may not experience any pain. 04/07: threatening statements and behaviors of yesterday noted. pt sleeping this morning, dismissive of MD. 04/08: asleep days. committed and meds ordered by court. 04/09: on being informed of court order and MD insisting on meds, pt escalated to hurling food item in container against wall at high speed and saying he wished he could do the same to MD's head. pt eventually took court ordered meds PO. sensodyne and excedrin not available in pharmacy (pt requesting them). 04/10: continue tx. Pt accepting medication today. 04/11: Keeping to self. Lying in bed most of morning. Declined to meet with T/W. Pt stated, I'm fine. I don't need anything . Listening to headphones in room. Declined court ordered PO medications; received IM medications. Refused vital signs.continue tx plan. 04/12: got IMs yesterday, took PO this morning. sleepy, no concerns or complaints. 04/13: taking PO meds again. slept 7 hours. sleepy again mid morning refusing interview. continue current mgmt. 04/14: sleeping, rousable. denies being sedated or tired, says he's just bored. no questions or complaints. informed of need to check labs. check lithium level and thyroid labs tonight. 04/15: refusing labs. delusional re his brother harming him. verbally abusive toward MD. spat in floor. happy with improvement in proptosis. 04/16: Lying in bed. Calm. cooperative. guarded. Pt reports feeling tired this morning d/t poor sleep last night. Pt stated, I don't need anything. I didn't sleep well so I'm trying to catch up . denies any issues at this time. denies SI/HI/VH/AH. Continue current tx plan. 04/17: more calm today, less explosive. continue current mgmt. 04/18: continues more calm. tolerating moments of frustration without verbally attacking MD. slept only 2 hours overnight, however. continue current mgmt. 04/19 continues to push boundaries and limits with staff mike around cell phone- 04/20 - aggressive with staff and unpredictable- threw water pitcher at staff behind desk/-when seen by provider passive in bed-denying all compaints/sys- no insight 04/21: appears as per last week. more difficult behaviors around cell phone use, did throw pitcher of water at RN monday over phone use and was restrained. continue current mgmt. 04/22: continues to have conflict around cell phone use. consolidate zyprexa at HS to decrease daytime sedation. 1:1 allegra shift until peer he is accusing of not being a real patient and appears to be targeting discharges tomorrow. 04/23: lithium 0.6 on 600 BID. sleeping better, remains delusional (telling SW who is marginally younger than him that she could be his daughter). just changed zyprexa dosing as of last night. continue current regimen and observe for continued stabilization. T/C slight increase in lithium dosing. 04/24: Laying in bed. guarded. calm. did not want to get out of bed to meet with T/W. Pt reports feeling great today but declined to go into detail. listening to music on unit headphones. Pt stated, I'm fine. I don't need anything . denies any issues at this time. denies SI/HI/VH/AH. Continue current tx plan. 04/25: Laying in bed. keeping to self. calm. paranoid. Discussed incident that occurred with staff last evening. Pt stated, the counselor made up a lie yesterday. I said she looks like my ex-girlfriend. I know they are related. They want to make up a lie to irritate me. They are trying to talk to me so they can use recording devices and make me look some kind of way . listening to music on unit headphones. denies SI/HI/VH/AH. Continue current tx plan. 04/26: Continue current regimen and plans. Increase Zyprexa 20 mg q.h.s. fresh air break withheld 04/27: Continue current regimen and plans 04/28: somewhat less irritable and agitated than last week. however, over the weekend was claiming he was the father of a footballer on TV and also that a staff member is a twin of his ex-GF (and he pushed staff member). TFTs improving. continue current mgmt. 04/29: no change in presentation. continue current mgmt. 04/30: no irritable edge today. calm, pleasant. engaging in small talk. reality testing not pressed. continue current mgmt for now. 05/01: no change in presentation. continue current mgmt. 05/02: BPs coming down, DC beta joanne as pt has been refusing anyway. remains not antagonistic toward MD. using phone appropriately. continue current mgmt otherwise. 05/03 continue 05/04: remains delusional, irritable/labile when delusional system confronted. declines to sign TOMMY for [facility] records. continue current mgmt. 05/06: declining to meet with MD, but does meet with medical student. remains upset about yesterday's confrontation re his delusional system. 05/07: Active on unit. keeping to self. pacing unit hallway while listening to unit headphones. medication compliant. patient reports feeling good ; pt stated, I'm just waiting to leave here. I want to return to my life and do things like go grocery shopping . denies SI/HI/VH/AH. Continue current tx plan. 05/08: stable presentation, delusions not being brought to the surface daily. remains affectively improved from admission. continue current mgmt. 05/09: calm, pleasant. no questions or complaints. continue current mgmt. 05/10: no change in presentation. due to lack of improvement in dental infection Sx, DC PCN and start augmentin. 05/11: no change in presentation. continue current mgmt. 05/12: as for yesterday. dental pain improving a bit. 05/13: expressed to medical student that his brother poisoned him, causing his thyroid disease. no change in presentation. continue current mgmt. 05/14: Pacing unit hallway. keeping to self. patient reports feeling good today; denies any issues at this time. denies SI/HI/VH/AH. per nursing, slept 5 hours. Continue current tx plan. 05/15: slept 6 hours. otherwise isolative, difficult to engage. continue current mgmt. 05/16: slept 7 hours. as for yesterday otherwise. 05/17/25: Slept well, no issue with appetite, skinny and pretty tall. Compliant with medication. No side effects Calm and pleasant upon approach. Some what paranoid. Tangential, however denies other safety concerns. Questions if he is discharging soon. He is on antibiotic for 7 days for mouth pain/tooth pain. We will finish the 7 course up in antibiotic after tonight dose. Then discontinue. 05/18/25: Slept for 5 hours plus hours this morning. In bed most of the shift, no behavior issues. Denies other safety concerns. 05/19: in bed days, up eves. no change in presentation. continue current mgmt. 05/20: no change in presentation. check labs. 05/21: lithium low, TFTs mixed and not all back. increase lithium from 600 BID to 600/900. trend BUN/Cr, with slight elevation. otherwise continue current mgmt. 05/22: no change in presentation. continue current mgmt. 05/23: does not deny someone stole his sperm and impregnated his landlord's child with it. irritable. c/o dental pain, antibx restarted. otherwise continue current mgmt. 05/14: no change in mgt 05/25: more isolative today; no change in mgt 05/26: decreases in methimazole noted. continue psych regimen as is. pt refused to interact with MD today. 05/27: i'm sleeping. no change in presentation. labs tonight. 05/28: no change in behavior. lithium 0.66, BUN stable. continue current mgmt. 05/29: irritable. continue current mgmt. 05/30: no longer in single room. still not engaging, sleeping days. continue current mgmt. 05/31:laying in bed. declined to meet with T/W. pt stated, I want to sleep. I didn't sleep enough . Pt encouraged to reach out to staff if he needs anything. Continue current tx plan. 06/01: Similar to yesterday. laying in bed. Irritable. declined to meet with T/W and pulled bed sheets over head. pt stated, I don't want to talk. I want to sleep . difficult to engage. Continue current tx plan. 06/02: Similar to yesterday. laying in bed. Irritable. declined to meet with T/W. Observed getting drink from kitchen; T/W approached pt and asked if they could speak. patient declined to acknowledge T/W and walked past. Continue current tx plan. 06/03: no change in behavior. continue tx plan. 06/04/25: Passive engaged in the assessment, in bed mostly sleeping this morning which could be interfere with his nighttime. Cover body under the blanket Slept for 4-5 hours last night. Was medication compliant, attended no groups, isolative to self in room. No SI/SIB/HI/AVH expressed. 06/05: continue tx plan. 06/06: reports feeling fine ; continues guarded. difficult to engage. declining to meet with T/W. continue tx plan. 06/07/25: Slept for 4 hours at night, but has been sleeping most of the day yesterday as well. Spent majority of the shift in bed, was medication compliant. Passive engaged in the conversation. He said he will try to change the sleeping pattern so that he can be awake more during the daytime. Appear to be sedated in the morning. No safety behavior. 06/08/25: Slept for 3-4 hours last night, compliant with medications. Denies side effects, denies other safety concerns. Continued to encourage patient to up and down more than on the unit he spent most of the day sleeping. He is pleasant upon approach. No other behavior issues. Denied voices/hallucinations. Suicide thoughts or homicidal thoughts. 06/09: sleeping, minimally rousable. denies problems. continue current mgmt. 06/10: sleeping all day, up most of the night. minimally rousable. denies problems. continue current mgmt. per JAMAICA Arrington: Jean said when he leaves he can return to [facility]. he was living with a lady there and can go back. He plans to get a job to pay off his debt. He said he owes money because they sent him back here due to losing his passport and he owes them money for the temporary emergency passport and the flight back to the . so his main focus is to get a job. he said he will try things here first and if it doesn't work out he plans to return to [place]. 06/11/25: Passively engaged in conversation while in bed sleeping/resting. Able to answer question appropriately, but seems to be minimized. Denies SI/SIB/HI/AVH. He slept 5 hours last night, spent most of the day in bed sleeping. Attempted to no groups, observed out to the afternoon in the subramanian near the nurse station. No change in presentation. Encourage groups,up and engaged in groups. 06/12: not engaging. no complaints or questions re med changes. cross-taper zyprexa in favor of invega, give MONTERO invega. tonight, decrease zyprexa to 15 mg and start invega 3 mg. otherwise continue current mgmt. 06/13: continues avoidant and disengaged. denies side effects from med change last night. informed cross-titration will advance tonight. decrease zyprexa to 10 mg tonight, increase paliperidone to 6 mg. plan to continue by 5 mg zyprexa and 3 mg paliperidone increments every several days as tolerated until zyprexa DCed and paliperidone at 12 mg QHS. once it is established pt is tolerating PO Paliperidone, invega sustenna to be administered. 06/14: Continue current regimen and plans 06/15: Continue current plans and regimen 06/16: irritable re neuroleptic change. denies side effects or problems with it, however. minimally engageable. increase invega to 9 QHS and decrfease zyprexa to 5 QHS. 06/17/25: Continued to be irritable regarding medication change/titration. However engaged in conversation, hyper verbal, paranoid, reports medication slow his thoughts down and he does not not like it. Poor insight and poor judgment. He thinks he only need lithium, not other medications. Remind patient to continue doing the sleep pattern changing. However his in bed mostly this morning. Slept for 4-5 hours last night. 06/18/25: Slept for 5 hours last night as he continues sleeping during daytime. Compliant with meds, did not c/o side effects.Passingly engaging in assessment. Denies safety concerns. Tolerate the tritation well. Will increase Inveag up to max of 12 tomorrow and Discontinue Olanzepine at HS. Continue to encourage up and out on day so he can sleep better at HS. 06/19/25: Patient slept for 5.5 hours last night, was medication compliant, mostly in his room yesterday but seen more often in the evening. Patient is awake in his room, listen to music, his morning tray was taken away and clean the area. He is very pleasant to talk to today, reports he feels good, denies side effects from medications, denies any safety concerns. Denies feeling sedation, denies anxiety/depression. He is receptive with the plan of medication over the weekends and next week, happy to hear about the medication plan. He also agree with the MONTERO Invega Sustenna on Monday. Encourage him to go out and attended to groups, he said that he will. Reported that he was out for groups a couple of times last week. Discontinue Haldol p.r.n.. Discontinue scheduled Zyprexa 5 mg at bedtime. Only on Zyprexa at g IM daily p.r.n. as backup orders if refused Invega. Invega 12 mg at bedtime. Plan to monitor over the weekends and will give long- acting injection on Monday if tolerate with the p.o. well Reduce Seroquel 200 mg p.r.n. at bedtime to 100 p.r.n. at bedtime for insomnia. Seroquel 50 mg b.i.d. p.r.n. for agitation. Discontinue Motrin. Patient on lithium. Labs were for MondayJune 20: CMP, TSH with free T4. 06/20/25: In bed most of the day, was compliant with medication, however refused labs work. Re- scheduled for Monday. Continue with Invega 12 mg at bedtime. We will reassess and offer long-acting injection on Monday. Continue to encourage patient to get up and go to some groups. No safety concerns expressed. Minimal peer and staff interaction. 06/21: no change in presentation. start MONTERO monday. no s/e from invega. otherwise continue current mgmt. 06/22: stable. continue current mgmt. 06/23/25: More awake and alert. Review with patient regarding policy for his phone use BID 30min each time, patient is educated on compliant with policy. He asks for more 5-10 min extra headphone use at night on the weekends after 2300. Once again, redirected for unit rules. He agrees with MONTERO which is scheduled today. Discontinue Invega PO Invega Sustenna 234mg IM once. Will monitor for possible side effects and sedation. Will offer 156mg after 1 week. If mentaly stable with 156mg, will maintain at this dose, if not will offer 234mg Monthly. 06/24/25: Slept for 5 hours last night, but also went to bed around 7 tonight p.m. last night per his report. He also attended to groups in the afternoon yesterday. Compliant with medications. No side effects from Invega Sustenna. He is engaged in full conversation today why he is in bed, denies safety concerns. Observe he is on the unit, social with peers and staff in longer period of time. Appeared to be happy. He plans to take shower today. Reported that he was up early but he does not feel hungry in the morning. He is making progress, not too sedated during daytime since switching his medication. Appears to do well so far with Invega Sustenna. 06/25/25: Patient slept for 4 hours last night, however he reported was napping in the afternoon for couple hours which affect his sleeping pattern at night. Educate patient to not napping late in the evening. He is receptive. Compliant with medications, no side effects. He reports his did not shower yesterday but he will today. He is awake in his room not sleeping, engage in full conversation, no delusional or paranoid statements make. He is visible at times. Continued to improve in mood, engaging in other activities on the unit. Denies other safety concerns. Denies hallucinations. No irritability mood, not sedated during day time compared to when he was taking olanzapine. We will schedule Invega Sustenna 156 next Monday. Work with social worker clinical to see where he will return to. He probably needs [facility] to manage medication. 06/26/25: He slept for 5 hours, compliant with medications. Denies side effects. He self-reported that he went to bed last night and was able to fall asleep by 01:00 and able to stay asleep whole night. Denies safety concerns. I spoke with him in length today regarding aftercare. He thinks he will go to the hospital in [place] to ask them regarding his heart condition. He thinks people was lying to get him to the hospital as he does not have mental health illnesses. He believes that he has been exactly the same he was seen he was a little, and at he able to remember everything in the past. He also reports that he used to use [facility] in [place]. At 1st he does not want [facility] application. I explained to him that in order to be a candidate patient have to be a safe that he has mental health issues, so people can submit the application, and from the [facility] worker will contact him to do assessment if he qualify for any services that they can provide. Patient is receptive application, social worker clinical was notified. Patient also would like to have services with [facility] in [place]. He showered yesterday morning, did not go to groups yesterday, but he will go to some groups today per his plan for the day, more awake, engaged in conversation, no irritability. However, continued to be poor insight of his illnesses. He does not want to return to his brother I have not talking to him for since 2021. He reported that that his brother told other people that patient was trying to kill his brother with a knife. He had question regarding the Invega Sustenna which is scheduled for next Monday. He does having good memory for whatever we discussed the past couple of days. He plans to continue taking meds as prescribed after discharge. However, with unsafe discharge plan at this current time, I would think he will relapse shortly after discharge if he does not have good support system in community. He has no where to turn, and limited support in community. He does not think MJ will affect his brain functions and mental status. He would potential smoke it when he leaves. 06/27/25: Slept for 6 hours last night which is improving, continue to educate patient not to nap late in the evening so that he can sleep better at night. He still does not want to change medication at bedtime earlier than 2300. Observe he is out on the unit, listen to music, social, and attended groups, he also tried to drink couple of coffee to keep him awake during the daytime. Educate patient not to much coffee late in the afternoon. He is medication compliant. Denies side effects. Talk to social worker clinical this morning that he will do [facility] application on Monday. Denies safety concerns. Have poor insight of mental health. 06/28/2025: No changes to current plan. Invega Sustenna 156 mg IM scheduled on 06/30 at 10:00 06/29: no changes 06/30/25: Got Second loading dose of Invega Sustenna today. visible, social and appropriate. Did not attend groups over the weekends but he plans to attend groups today. Report sleeping better at night. Do not want HS scheduled time to change. Continue to work with for DMH application, OP services. He would like to FLU with [facility] in [place]. Educate patient of risk harming kidneys if taking Hamill with NSAIDs, Motrin. Continue to reinforce. Invega Sustenna 156mg IM. Pending effects. 07/01/25: Continued to improve in mood, sleep, and appetite. Compliant with medications. He is visible, intermittently attended groups. Engaged in treatment, engaged in encourage cessation with this provider and social worker clinical. He side the DM[facility] application, he also signed consent for [facility] so that social worker clinical can work on discharge plan. Per social worker clinical, patient is on the waiting list which is a definite when he will have the bed with [facility] services. Denies safety concerns, denies side effects from medications. 07/02/25: Slept for 6 hours, compliant with meds, intermittently attended groups. No behavior issues. Worry/anxious regarding DM[facility] services and assessment coming this Monday. He is paranoid regarding what his brother will talk about when staff call. He thinks his brother will make up story and lie to us regarding reasons brought him to the hospital. Denies safety concerns. Denies hallucination. Continue to have poor insight of mental illnesses. [facility] will do assessment on Monday at 1000. 07/03/25: Patient slept for 8 hours which is much more hours than normal the past weeks, continued to improve with slept parents, compliant with medications. Reported that he has severe headache earlier today, took Excedrin and is tolerable during assessment. Patient was talking about how he was paranoid when he was at [facility] due to lack of sleep. Educate patient what is mental health illnesses. He is very simple, accepted education. Isolate this morning in his room. He plans to just rest this morning due to the headache. Denies safety concerns. Calm, pleasant, and cooperative upon approach. Explained more in details of of [facility] services. He is looking forward to having assessment tomorrow by 10:00 with them. 07/04/25: Patient slept well, normal sleeping pattern at night, he slept for 8 hours, compliant with medications. Sinus congestion is improved. He met with [facility] workers for 1-1/2 hours this morning. However due to his tangential thoughts, [facility] we will need to come back to see him again next week on . He feels a little bit disappointed is is not fast enough that the way that he thinks things are not easy . He asked question what is the penitentiary. Explained to him, and appeared that he does not want to be in the penitentiary, he does not not feel he has had mental health. Continued to be poor insight of the illnesses which could be at his baseline. [facility] will refer patient to PACT team. Denies safety concerns, he is visible, social inappropriate. Attended groups, no behavior issues 07/05: Keeping to self. Patient reports feeling fine today; pt states he is focused on leaving soon. Patient stated, I hope I can leave soon . denies SI/HI/VH/AH. denies any issues at this time. Continue current tx plan. 07/06: Continue current tx plan. 07/07: continue current tx plan 07/08: per med consult, check TSH/free T4 prior to discharge and refer to endocrinology. per staff, pt has improved substantially since last time this senior writer was working with pt; pt is not notably focused on delusional material. work toward safe discharge plan. Reason for continued inpatient stay Substantial Risk for: inability to function and rapid decompensation Time Spent With Patient Time: Total time managing care of this patient today __25__ minutes.
[2025-07-09 08:00] VITALS: RESP 16
[2025-07-09 20:00] VITALS: BP 137/80; PULSE 96; RESP 16; TEMP 36.4; O2SAT 100
--- NOTE | 2025-07-09 21:58 | HO.PSYCHPN ---
Subjective Subjective Date of Service: 07/09/25 Reason For Visit: psychotic disorder Subjective Notes: Floyd Order and Section 8 Healthcare Proxy: No Guardianship: No Medical Problems Affecting Mental Status: No Interim History: Medical record and nursing notes reviewed; case discussed during rounds with team/nursing staff, and met with patient for supportive therapy/psychoeducation, as well as medication management. Patient slept through the night, medication compliant. No behavior issues. Spent time in his room this morning. In the evening, patient reports that he has been experience extra saliva-drooling which could be from the side effects of medication. Robinul 0.5 mg twice a day scheduled. Pending effect. No other safety concerns. He is informed that [facility] worker will come to continue with the assessment at around 09:30. Medication Compliance: Yes Side effects from medications: Yes (Drooling ) Attending Groups: Intermittent Review of Systems Medical Review of Systems: unchanged Review of Systems Review of Systems Constitutional: Denies fatigue and Denies fever(s) Cardiovascular: Denies chest pain and Denies dyspnea Respiratory: Denies dyspnea Gastrointestinal: Denies abdominal pain Psychiatric: denies suicidal ideation Endocrine: Denies fatigue Yes all other systems are reviewed and are negative Mental Status Exam Mental Status Exam Narrative: Intermittently in milieu, alert and awake, exopthalmos, actively engaged in full normal conversation., denies SI/SIB/HI/AVH, more logical. Denies safety concerns. No SI//SIB/HI/AVH expressed.Visible, social, no irritable mood. calm, pleasant and cooperative. More anxious/worry about future/[facility] outcome. Diagnostics Vital Signs (24Hr): Vital Signs - 24 hr 07/09/25 08:00 07/09/25 20:00 Temperature 97.5 F Pulse Rate 96 Respiratory Rate 16 16 Blood Pressure 137/80 Pulse Oximetry 100 Oxygen Delivery Method Room Air BMI result Body Mass Index 23.8 Labs 06/25/25 08:02 06/20/25 20:35 Medications Medications Current Medications Acetaminophen (Acetaminophen 325 Mg Tablet) 650 mg PO Q4H PRN PRN Reason: Pain, Mild (Pain Scale 1-3) Last Admin: 07/06/25 22:53 Dose: 650 mg Al Hydroxide/Mg Hydroxide (Magnesium Hydrox/Alum Hydrox 30 Ml Oral.Susp) 30 ml PO Q6H PRN PRN Reason: Heart burn Benzocaine (Benzocaine 20 % Oral Gel 14 Gm Tube) 1 appl MUCOUS MEM QID PRN; Protocol PRN Reason: Mouth Sore Pain Last Admin: 04/26/25 18:33 Dose: 1 appl Diazepam (Diazepam 10 Mg/2 Ml Cartridge) 10 mg IM BID PRN PRN Reason: refusal of lithium, mary floyd Last Admin: 04/11/25 09:56 Dose: 10 mg Glycopyrrolate (Glycopyrrolate 1 Mg Tablet) 0.5 mg PO BID [facility] Last Admin: 07/09/25 20:03 Dose: 0.5 mg Higden Carbonate (Higden Carbonate Er 300 Mg Tablet.Er) 600 mg PO DAILY [facility] Last Admin: 07/09/25 09:16 Dose: 600 mg Higden Carbonate (Higden Carbonate Er 450 Mg Tablet.Er) 900 mg PO DAILY@2300 [facility] Last Admin: 07/09/25 20:02 Dose: 900 mg Magnesium Hydroxide (Milk Of Magnesia 30 Ml Oral.Susp) 30 ml PO DAILY PRN PRN Reason: Constipation Methimazole (Methimazole 10 Mg Tablet) 10 mg PO DAILY [facility] Last Admin: 07/09/25 09:16 Dose: 10 mg Nicotine (Nicotine 21 Mg Patch.Td24) 21 mg TRANSDERMA DAILY PRN PRN Reason: nicotine cravings Last Admin: 04/12/25 17:06 Dose: 21 mg Nicotine Polacrilex (Nicotine Polacrilex Lozenge 2 Mg Lozenge) 2 mg BUCCAL Q1H PRN PRN Reason: Nicotine Cravings Last Admin: 04/30/25 08:49 Dose: 2 mg Patient Own Medication Excedrin 250/250/65mg 2 each PO Q8H PRN PRN Reason: Migraine Headache Last Admin: 07/07/25 06:31 Dose: 2 each Olanzapine (Olanzapine 10 Mg Vial) 10 mg IM DAILY PRN PRN Reason: if refuse Invega PO Pseudoephedrine HCl (Pseudoephedrine Hcl 30 Mg Tablet) 30 mg PO Q6H PRN PRN Reason: Congestion Last Admin: 07/03/25 21:18 Dose: 30 mg Quetiapine Fumarate (Quetiapine Fumarate 100 Mg Tablet) 100 mg PO BEDTIME PRN PRN Reason: insomnia Quetiapine Fumarate (Quetiapine Fumarate 50 Mg Tablet) 50 mg PO BID PRN PRN Reason: agitation Sodium Chloride (Sodium Chloride 0.65 % Nasal 44 Ml Sprbtl) 1 spray NOSTRIL-B Q4H PRN PRN Reason: Congestion Last Admin: 07/03/25 23:03 Dose: 1 spray Allergies Allergies Allergy/AdvReac Type Severity Reaction Status Date / Time No Known Allergies Allergy Verified 03/26/25 14:24 Assessment & Plan Assessment & Plan (1) Graves disease: Status: Acute Code(s): E05.00 - Thyrotoxicosis with diffuse goiter without thyrotoxic crisis or storm Assessment and Plan: Hyperthyroidism/Graves disease. He will need follow up with endocrinology as an outpatient He will also need a primary care doctor referral as an outpatient Discussed with Dr. Bejarano, patient will need free T4 weekly Decrease Methimazole to 15 mgs daily for three days and then 10 mgs daily- discussed with patient he is aware of plan and rationale. TSH and free T4 every 4 weeks. No need to draw thyroid stimulation immunology or TSH receptor AB (2) Dental abscess: Status: Acute Code(s): K04.7 - Periapical abscess without sinus Assessment and Plan: Carious tooth/dental infection Recently treated with PEN VK 500 mg q.6 hours for 7 days Patient will need follow up with dentist on discharge for tooth extraction Motrin helping pain. (3) Becca: Status: Acute Code(s): F30.9 - Manic episode, unspecified Plan 03/26: offer lithium and seroquel for becca. continue methimazole and beta joanne for hyperthyroidism as started at [facility]. trend TFTs. 12b. 03/27: taking methimazole and beta joanne. refused HS meds last night, took morning meds today. continue to encourage medication compliance. 03/28: intermittently taking meds. wants all meds in morning. pressured, manic, paranoid delusions. encouraged to take lithium but states he will not. all meds ordered for morning. 03/29: Keeping to self. no groups. observed laying in bed listening to music on unit headphones. pleasant. Pt reports feeling good today and sleeping well. declined lithium and zyprexa. denies SI/HI/VH/AH. continue current tx plan. 03/30:Irritable. upset he was unable to use his personal hygiene products. Per nursing, pt threatened staff and squeezed tooth paste throughout unit hallway to show his frustration. Pt was able to calm down after speaking with security. declined medications. 03/31: Keeping to self. laying in bed listening to music. refused medications. calm today. Patient reports feeling great ; pt stated, nothing is wrong with me. I'm waiting so I can leave tomorrow. I'm hoping for the best . denies SI/HI/VH/AH. per nursing, slept 6 hours. Continue current tx plan. 04/01: variably calm on the unit versus highly agitated. paranoid delusions, irritability, lability continue. seems to believe MD has met him prior to the present hospitalization and is stalking him. believes brother behind conspiracy to have him psychiatrically hospitalized. has been refusing all medications, including for hyperthyroidism. informed he would be filed on. filed. continue to offer medications. 04/02: continues agitated, belittling, verbally aggressive, refusing all medications including for hyperthyroidism. continue to offer medication. 04/03: paranoid there is a conspiracy to hospitalize him. threatening to stick a stick in staff once he is released by woods laborer. insists his hyperthyroidism was cured at [facility]. asserts there is NOTHING wrong with him. continue to offer medication. 04/04: irritable, rejecting. verbally abuses MD and sends him away: see you on monday [in court]. continue to offer medication for thyroid condition and mental illness. 04/05 continue tx. suspicious and guarded, accusatory, verbal threats to hurt staff and peers 04/06 intrusive, posturing towards staff and peer who he thinks is not real and is an impostor, continues to make verbal threats to harm him but thinks that because he is not real he may not experience any pain. 04/07: threatening statements and behaviors of yesterday noted. pt sleeping this morning, dismissive of MD. 04/08: asleep days. committed and meds ordered by court. 04/09: on being informed of court order and MD insisting on meds, pt escalated to hurling food item in container against wall at high speed and saying he wished he could do the same to MD's head. pt eventually took court ordered meds PO. sensodyne and excedrin not available in pharmacy (pt requesting them). 04/10: continue tx. Pt accepting medication today. 04/11: Keeping to self. Lying in bed most of morning. Declined to meet with T/W. Pt stated, I'm fine. I don't need anything . Listening to headphones in room. Declined court ordered PO medications; received IM medications. Refused vital signs.continue tx plan. 04/12: got IMs yesterday, took PO this morning. sleepy, no concerns or complaints. 04/13: taking PO meds again. slept 7 hours. sleepy again mid morning refusing interview. continue current mgmt. 04/14: sleeping, rousable. denies being sedated or tired, says he's just bored. no questions or complaints. informed of need to check labs. check lithium level and thyroid labs tonight. 04/15: refusing labs. delusional re his brother harming him. verbally abusive toward MD. spat in floor. happy with improvement in proptosis. 04/16: Lying in bed. Calm. cooperative. guarded. Pt reports feeling tired this morning d/t poor sleep last night. Pt stated, I don't need anything. I didn't sleep well so I'm trying to catch up . denies any issues at this time. denies SI/HI/VH/AH. Continue current tx plan. 04/17: more calm today, less explosive. continue current mgmt. 04/18: continues more calm. tolerating moments of frustration without verbally attacking MD. slept only 2 hours overnight, however. continue current mgmt. 04/19 continues to push boundaries and limits with staff mike around cell phone- 04/20 - aggressive with staff and unpredictable- threw water pitcher at staff behind desk/-when seen by provider passive in bed-denying all compaints/sys- no insight 04/21: appears as per last week. more difficult behaviors around cell phone use, did throw pitcher of water at RN monday over phone use and was restrained. continue current mgmt. 04/22: continues to have conflict around cell phone use. consolidate zyprexa at HS to decrease daytime sedation. 1:1 allegra shift until peer he is accusing of not being a real patient and appears to be targeting discharges tomorrow. 04/23: lithium 0.6 on 600 BID. sleeping better, remains delusional (telling SW who is marginally younger than him that she could be his daughter). just changed zyprexa dosing as of last night. continue current regimen and observe for continued stabilization. T/C slight increase in lithium dosing. 04/24: Laying in bed. guarded. calm. did not want to get out of bed to meet with T/W. Pt reports feeling great today but declined to go into detail. listening to music on unit headphones. Pt stated, I'm fine. I don't need anything . denies any issues at this time. denies SI/HI/VH/AH. Continue current tx plan. 04/25: Laying in bed. keeping to self. calm. paranoid. Discussed incident that occurred with staff last evening. Pt stated, the counselor made up a lie yesterday. I said she looks like my ex-girlfriend. I know they are related. They want to make up a lie to irritate me. They are trying to talk to me so they can use recording devices and make me look some kind of way . listening to music on unit headphones. denies SI/HI/VH/AH. Continue current tx plan. 04/26: Continue current regimen and plans. Increase Zyprexa 20 mg q.h.s. fresh air break withheld 04/27: Continue current regimen and plans 04/28: somewhat less irritable and agitated than last week. however, over the weekend was claiming he was the father of a footballer on TV and also that a staff member is a twin of his ex-GF (and he pushed staff member). TFTs improving. continue current mgmt. 04/29: no change in presentation. continue current mgmt. 04/30: no irritable edge today. calm, pleasant. engaging in small talk. reality testing not pressed. continue current mgmt for now. 05/01: no change in presentation. continue current mgmt. 05/02: BPs coming down, DC beta joanne as pt has been refusing anyway. remains not antagonistic toward MD. using phone appropriately. continue current mgmt otherwise. 05/03 continue 05/04: remains delusional, irritable/labile when delusional system confronted. declines to sign TOMMY for [facility] records. continue current mgmt. 05/06: declining to meet with MD, but does meet with medical student. remains upset about yesterday's confrontation re his delusional system. 05/07: Active on unit. keeping to self. pacing unit hallway while listening to unit headphones. medication compliant. patient reports feeling good ; pt stated, I'm just waiting to leave here. I want to return to my life and do things like go grocery shopping . denies SI/HI/VH/AH. Continue current tx plan. 05/08: stable presentation, delusions not being brought to the surface daily. remains affectively improved from admission. continue current mgmt. 05/09: calm, pleasant. no questions or complaints. continue current mgmt. 05/10: no change in presentation. due to lack of improvement in dental infection Sx, DC PCN and start augmentin. 05/11: no change in presentation. continue current mgmt. 05/12: as for yesterday. dental pain improving a bit. 05/13: expressed to medical student that his brother poisoned him, causing his thyroid disease. no change in presentation. continue current mgmt. 05/14: Pacing unit hallway. keeping to self. patient reports feeling good today; denies any issues at this time. denies SI/HI/VH/AH. per nursing, slept 5 hours. Continue current tx plan. 05/15: slept 6 hours. otherwise isolative, difficult to engage. continue current mgmt. 05/16: slept 7 hours. as for yesterday otherwise. 05/17/25: Slept well, no issue with appetite, skinny and pretty tall. Compliant with medication. No side effects Calm and pleasant upon approach. Some what paranoid. Tangential, however denies other safety concerns. Questions if he is discharging soon. He is on antibiotic for 7 days for mouth pain/tooth pain. We will finish the 7 course up in antibiotic after tonight dose. Then discontinue. 05/18/25: Slept for 5 hours plus hours this morning. In bed most of the shift, no behavior issues. Denies other safety concerns. 05/19: in bed days, up eves. no change in presentation. continue current mgmt. 05/20: no change in presentation. check labs. 05/21: lithium low, TFTs mixed and not all back. increase lithium from 600 BID to 600/900. trend BUN/Cr, with slight elevation. otherwise continue current mgmt. 05/22: no change in presentation. continue current mgmt. 05/23: does not deny someone stole his sperm and impregnated his landlord's child with it. irritable. c/o dental pain, antibx restarted. otherwise continue current mgmt. 05/14: no change in mgt 05/25: more isolative today; no change in mgt 05/26: decreases in methimazole noted. continue psych regimen as is. pt refused to interact with MD today. 05/27: i'm sleeping. no change in presentation. labs tonight. 05/28: no change in behavior. lithium 0.66, BUN stable. continue current mgmt. 05/29: irritable. continue current mgmt. 05/30: no longer in single room. still not engaging, sleeping days. continue current mgmt. 05/31:laying in bed. declined to meet with T/W. pt stated, I want to sleep. I didn't sleep enough . Pt encouraged to reach out to staff if he needs anything. Continue current tx plan. 06/01: Similar to yesterday. laying in bed. Irritable. declined to meet with T/W and pulled bed sheets over head. pt stated, I don't want to talk. I want to sleep . difficult to engage. Continue current tx plan. 06/02: Similar to yesterday. laying in bed. Irritable. declined to meet with T/W. Observed getting drink from kitchen; T/W approached pt and asked if they could speak. patient declined to acknowledge T/W and walked past. Continue current tx plan. 06/03: no change in behavior. continue tx plan. 06/04/25: Passive engaged in the assessment, in bed mostly sleeping this morning which could be interfere with his nighttime. Cover body under the blanket Slept for 4-5 hours last night. Was medication compliant, attended no groups, isolative to self in room. No SI/SIB/HI/AVH expressed. 06/05: continue tx plan. 06/06: reports feeling fine ; continues guarded. difficult to engage. declining to meet with T/W. continue tx plan. 06/07/25: Slept for 4 hours at night, but has been sleeping most of the day yesterday as well. Spent majority of the shift in bed, was medication compliant. Passive engaged in the conversation. He said he will try to change the sleeping pattern so that he can be awake more during the daytime. Appear to be sedated in the morning. No safety behavior. 06/08/25: Slept for 3-4 hours last night, compliant with medications. Denies side effects, denies other safety concerns. Continued to encourage patient to up and down more than on the unit he spent most of the day sleeping. He is pleasant upon approach. No other behavior issues. Denied voices/hallucinations. Suicide thoughts or homicidal thoughts. 06/09: sleeping, minimally rousable. denies problems. continue current mgmt. 06/10: sleeping all day, up most of the night. minimally rousable. denies problems. continue current mgmt. per JAMAICA Arrington: Jean said when he leaves he can return to [facility]. he was living with a lady there and can go back. He plans to get a job to pay off his debt. He said he owes money because they sent him back here due to losing his passport and he owes them money for the temporary emergency passport and the flight back to the . so his main focus is to get a job. he said he will try things here first and if it doesn't work out he plans to return to [place]. 06/11/25: Passively engaged in conversation while in bed sleeping/resting. Able to answer question appropriately, but seems to be minimized. Denies SI/SIB/HI/AVH. He slept 5 hours last night, spent most of the day in bed sleeping. Attempted to no groups, observed out to the afternoon in the subramanian near the nurse station. No change in presentation. Encourage groups,up and engaged in groups. 06/12: not engaging. no complaints or questions re med changes. cross-taper zyprexa in favor of invega, give MONTERO invega. tonight, decrease zyprexa to 15 mg and start invega 3 mg. otherwise continue current mgmt. 06/13: continues avoidant and disengaged. denies side effects from med change last night. informed cross-titration will advance tonight. decrease zyprexa to 10 mg tonight, increase paliperidone to 6 mg. plan to continue by 5 mg zyprexa and 3 mg paliperidone increments every several days as tolerated until zyprexa DCed and paliperidone at 12 mg QHS. once it is established pt is tolerating PO Paliperidone, invega sustenna to be administered. 06/14: Continue current regimen and plans 06/15: Continue current plans and regimen 06/16: irritable re neuroleptic change. denies side effects or problems with it, however. minimally engageable. increase invega to 9 QHS and decrfease zyprexa to 5 QHS. 06/17/25: Continued to be irritable regarding medication change/titration. However engaged in conversation, hyper verbal, paranoid, reports medication slow his thoughts down and he does not not like it. Poor insight and poor judgment. He thinks he only need lithium, not other medications. Remind patient to continue doing the sleep pattern changing. However his in bed mostly this morning. Slept for 4-5 hours last night. 06/18/25: Slept for 5 hours last night as he continues sleeping during daytime. Compliant with meds, did not c/o side effects.Passingly engaging in assessment. Denies safety concerns. Tolerate the tritation well. Will increase Inveag up to max of 12 tomorrow and Discontinue Olanzepine at HS. Continue to encourage up and out on day so he can sleep better at HS. 06/19/25: Patient slept for 5.5 hours last night, was medication compliant, mostly in his room yesterday but seen more often in the evening. Patient is awake in his room, listen to music, his morning tray was taken away and clean the area. He is very pleasant to talk to today, reports he feels good, denies side effects from medications, denies any safety concerns. Denies feeling sedation, denies anxiety/depression. He is receptive with the plan of medication over the weekends and next week, happy to hear about the medication plan. He also agree with the MONTERO Invega Sustenna on Monday. Encourage him to go out and attended to groups, he said that he will. Reported that he was out for groups a couple of times last week. Discontinue Haldol p.r.n.. Discontinue scheduled Zyprexa 5 mg at bedtime. Only on 10 Zyprexa at g IM daily p.r.n. as backup orders if refused Invega. Invega 12 mg at bedtime. Plan to monitor over the weekends and will give long-acting injection on Monday if tolerate with the p.o. well Reduce Seroquel 200 mg p.r.n. at bedtime to 100 p.r.n. at bedtime for insomnia. Seroquel 50 mg b.i.d. p.r.n. for agitation. Discontinue Motrin. Patient on lithium. Labs were for MondayJune 20: CMP, TSH with free T4. 06/20/25: In bed most of the day, was compliant with medication, however refused labs work. Re- scheduled for Monday. Continue with Invega 12 mg at bedtime. We will reassess and offer long-acting injection on Monday. Continue to encourage patient to get up and go to some groups. No safety concerns expressed. Minimal peer and staff interaction. 06/21: no change in presentation. start MONTERO monday. no s/e from invega. otherwise continue current mgmt. 06/22: stable. continue current mgmt. 06/23/25: More awake and alert. Review with patient regarding policy for his phone use BID 30min each time, patient is educated on compliant with policy. He asks for more 5-10 min extra headphone use at night on the weekends after 2300. Once again, redirected for unit rules. He agrees with MONTERO which is scheduled today. Discontinue Invega PO Invega Sustenna 234mg IM once. Will monitor for possible side effects and sedation. Will offer 156mg after 1 week. If mentaly stable with 156mg, will maintain at this dose, if not will offer 234mg Monthly. 06/24/25: Slept for 5 hours last night, but also went to bed around 7 tonight p.m. last night per his report. He also attended to groups in the afternoon yesterday. Compliant with medications. No side effects from Invega Sustenna. He is engaged in full conversation today why he is in bed, denies safety concerns. Observe he is on the unit, social with peers and staff in longer period of time. Appeared to be happy. He plans to take shower today. Reported that he was up early but he does not feel hungry in the morning. He is making progress, not too sedated during daytime since switching his medication. Appears to do well so far with Invega Sustenna. 06/25/25: Patient slept for 4 hours last night, however he reported was napping in the afternoon for couple hours which affect his sleeping pattern at night. Educate patient to not napping late in the evening. He is receptive. Compliant with medications, no side effects. He reports his did not shower yesterday but he will today. He is awake in his room not sleeping, engage in full conversation, no delusional or paranoid statements make. He is visible at times. Continued to improve in mood, engaging in other activities on the unit. Denies other safety concerns. Denies hallucinations. No irritability mood, not sedated during day time compared to when he was taking olanzapine. We will schedule Invega Sustenna 156 next Monday. Work with social services analyst to see where he will return to. He probably needs VNA to manage medication. 06/26/25: He slept for 5 hours, compliant with medications. Denies side effects. He self-reported that he went to bed last night and was able to fall asleep by 01:00 and able to stay asleep whole night. Denies safety concerns. I spoke with him in length today regarding aftercare. He thinks he will go to the hospital in [place] to ask them regarding his heart condition. He thinks people was lying to get him to the hospital as he does not have mental health illnesses. He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
--- NOTE | 2025-07-10 13:19 | P.PNPSI_ITS ---
Subjective Subjective Date of Service: 07/10/25 Reason For Visit: psychotic disorder Interim History: rolls over and looks at MD while talking. a bit more verbal than prior. no complaints or requests. per staff, slept 7 hours. started glycopyrrolate for drooling, which he says is effective. per JAMAICA Arrington, pt called his brother today. seen by [facility] yesterday. Mental Status Exam Mental Status Exam Narrative: under blanket. rouses himself and makes eye contact today. Passively engaging in assessment. no PMA/PMR. cooperative. speech terse, soft. thoughts linear and logical. affect constricted, normo-intense. mood not assessed. Denies safety concerns, has no requests. No SI/SIB/HI/AVH expressed. Diagnostics Vital Signs (24Hr): Vital Signs - 24 hr 07/09/25 20:00 Temperature 97.5 F Pulse Rate 96 Respiratory Rate 16 Blood Pressure 137/80 Pulse Oximetry 100 Oxygen Delivery Method Room Air BMI result Body Mass Index 23.8 Labs 06/25/25 08:02 06/20/25 20:35 Medications Medications Current Medications Acetaminophen (Acetaminophen 325 Mg Tablet) 650 mg PO Q4H PRN PRN Reason: Pain, Mild (Pain Scale 1-3) Last Admin: 07/06/25 22:53 Dose: 650 mg Al Hydroxide/Mg Hydroxide (Magnesium Hydrox/Alum Hydrox 30 Ml Oral.Susp) 30 ml PO Q6H PRN PRN Reason: Heart burn Benzocaine (Benzocaine 20 % Oral Gel 14 Gm Tube) 1 appl MUCOUS MEM QID PRN; Protocol PRN Reason: Mouth Sore Pain Last Admin: 04/26/25 18:33 Dose: 1 appl Diazepam (Diazepam 10 Mg/2 Ml Cartridge) 10 mg IM BID PRN PRN Reason: refusal of lithium, per everett Last Admin: 04/11/25 09:56 Dose: 10 mg Glycopyrrolate (Glycopyrrolate 1 Mg Tablet) 0.5 mg PO BID [facility] Last Admin: 07/10/25 10:18 Dose: 0.5 mg Tarkio Carbonate (Tarkio Carbonate Er 300 Mg Tablet.Er) 600 mg PO DAILY [facility] Last Admin: 07/10/25 10:17 Dose: 600 mg Tarkio Carbonate (Tarkio Carbonate Er 450 Mg Tablet.Er) 900 mg PO DAILY@2300 [facility] Last Admin: 07/09/25 20:02 Dose: 900 mg Magnesium Hydroxide (Milk Of Magnesia 30 Ml Oral.Susp) 30 ml PO DAILY PRN PRN Reason: Constipation Methimazole (Methimazole 10 Mg Tablet) 10 mg PO DAILY [facility] Last Admin: 07/10/25 10:18 Dose: 10 mg Nicotine (Nicotine 21 Mg Patch.Td24) 21 mg TRANSDERMA DAILY PRN PRN Reason: nicotine cravings Last Admin: 04/12/25 17:06 Dose: 21 mg Nicotine Polacrilex (Nicotine Polacrilex Lozenge 2 Mg Lozenge) 2 mg BUCCAL Q1H PRN PRN Reason: Nicotine Cravings Last Admin: 04/30/25 08:49 Dose: 2 mg Patient Own Medication Excedrin 250/250/65mg 2 each PO Q8H PRN PRN Reason: Migraine Headache Last Admin: 07/07/25 06:31 Dose: 2 each Olanzapine (Olanzapine 10 Mg Vial) 10 mg IM DAILY PRN PRN Reason: if refuse Invega PO Pseudoephedrine HCl (Pseudoephedrine Hcl 30 Mg Tablet) 30 mg PO Q6H PRN PRN Reason: Congestion Last Admin: 07/03/25 21:18 Dose: 30 mg Quetiapine Fumarate (Quetiapine Fumarate 100 Mg Tablet) 100 mg PO BEDTIME PRN PRN Reason: insomnia Quetiapine Fumarate (Quetiapine Fumarate 50 Mg Tablet) 50 mg PO BID PRN PRN Reason: agitation Sodium Chloride (Sodium Chloride 0.65 % Nasal 44 Ml Sprbtl) 1 spray NOSTRIL-B Q4H PRN PRN Reason: Congestion Last Admin: 07/03/25 23:03 Dose: 1 spray Allergies Allergies Allergy/AdvReac Type Severity Reaction Status Date / Time No Known Allergies Allergy Verified 03/26/25 14:24 Assessment & Plan Assessment & Plan (1) Graves disease: Status: Acute Code(s): E05.00 - Thyrotoxicosis with diffuse goiter without thyrotoxic crisis or storm Assessment and Plan: Hyperthyroidism/Graves disease. He will need follow up with endocrinology as an outpatient He will also need a primary care doctor referral as an outpatient Discussed with Dr. Bejarano, patient will need free T4 weekly Decrease Methimazole to 15 mgs daily for three days and then 10 mgs daily- discussed with patient he is aware of plan and rationale. TSH and free T4 every 4 weeks. No need to draw thyroid stimulation immunology or TSH receptor AB (2) Dental abscess: Status: Acute Code(s): K04.7 - Periapical abscess without sinus Assessment and Plan: Carious tooth/dental infection Recently treated with PEN VK 500 mg q.6 hours for 7 days Patient will need follow up with dentist on discharge for tooth extraction Motrin helping pain. (3) Becca: Status: Acute Code(s): F30.9 - Manic episode, unspecified Plan 03/26: offer lithium and seroquel for becca. continue methimazole and beta joanne for [place] [facility] [place] trend TFTs. 12b. 03/27: taking methimazole and beta joanne. refused HS meds last night, took morning meds today. continue to encourage medication compliance. 03/28: intermittently taking meds. wants all meds in morning. pressured, manic, paranoid delusions. encouraged to take lithium but states he will not. all meds ordered for morning. 03/29: Keeping to self. no groups. observed laying in bed listening to music on unit headphones. pleasant. Pt reports feeling good today and sleeping well. declined lithium and zyprexa. denies SI/HI/VH/AH. continue current tx plan. 03/30:Irritable. upset he was unable to use his personal hygiene products. Per nursing, pt threatened staff and squeezed tooth paste throughout unit hallway to show his frustration. Pt was able to calm down after speaking with security. declined medications. 03/31: Keeping to self. laying in bed listening to music. refused medications. calm today. Patient reports feeling great ; pt stated, nothing is wrong with me. I'm waiting so I can leave tomorrow. I'm hoping for the best . denies SI/HI/VH/AH. per nursing, slept 6 hours. Continue current tx plan. 04/01: variably calm on the unit versus highly agitated. paranoid delusions, irritability, lability continue. seems to believe MD has met him prior to the present hospitalization and is stalking him. believes brother behind conspiracy to have him psychiatrically hospitalized. has been refusing all medications, including for hyperthyroidism. informed he would be filed on. filed. continue to offer medications. 04/02: continues agitated, belittling, verbally aggressive, refusing all medications including for hyperthyroidism. continue to offer medication. 04/03: paranoid there is a conspiracy to hospitalize him. threatening to stick a stick in staff once he is released by body team member. insists his hyperthyroidism was cured at [facility]. asserts there is NOTHING wrong with him. continue to offer medication. 04/04: irritable, rejecting. verbally abuses MD and sends him away: see you on monday [in court]. continue to offer medication for thyroid condition and mental illness. 04/05 continue tx. suspicious and guarded, accusatory, verbal threats to hurt staff and peers 04/06 intrusive, posturing towards staff and peer who he thinks is not real and is an impostor, continues to make verbal threats to harm him but thinks that because he is not real he may not experience any pain. 04/07: threatening statements and behaviors of yesterday noted. pt sleeping this morning, dismissive of MD. 04/08: asleep days. committed and meds ordered by court. 04/09: on being informed of court order and MD insisting on meds, pt escalated to hurling food item in container against wall at high speed and saying he wished he could do the same to MD's head. pt eventually took court ordered meds PO. sensodyne and excedrin not available in pharmacy (pt requesting them). 04/10: continue tx. Pt accepting medication today. 04/11: Keeping to self. Lying in bed most of morning. Declined to meet with T/W. Pt stated, I'm fine. I don't need anything . Listening to headphones in room. Declined court ordered PO medications; received IM medications. Refused vital signs.continue tx plan. 04/12: got IMs yesterday, took PO this morning. sleepy, no concerns or complaints. 04/13: taking PO meds again. slept 7 hours. sleepy again mid morning refusing interview. continue current mgmt. 04/14: sleeping, rousable. denies being sedated or tired, says he's just bored. no questions or complaints. informed of need to check labs. check lithium level and thyroid labs tonight. 04/15: refusing labs. delusional re his brother harming him. verbally abusive toward MD. spat in floor. happy with improvement in proptosis. 04/16: Lying in bed. Calm. cooperative. guarded. Pt reports feeling tired this morning d/t poor sleep last night. Pt stated, I don't need anything. I didn't sleep well so I'm trying to catch up . denies any issues at this time. denies SI/HI/VH/AH. Continue current tx plan. 04/17: more calm today, less explosive. continue current mgmt. 04/18: continues more calm. tolerating moments of frustration without verbally attacking MD. slept only 2 hours overnight, however. continue current mgmt. 04/19 continues to push boundaries and limits with staff mike around cell phone- 04/20 - aggressive with staff and unpredictable- threw water pitcher at staff behind desk/-when seen by provider passive in bed-denying all compaints/sys- no insight 04/21: appears as per last week. more difficult behaviors around cell phone use, did throw pitcher of water at RN monday over phone use and was restrained. continue current mgmt. 04/22: continues to have conflict around cell phone use. consolidate zyprexa at HS to decrease daytime sedation. 1:1 allegra shift until peer he is accusing of not being a real patient and appears to be targeting discharges tomorrow. 04/23: lithium 0.6 on 600 BID. sleeping better, remains delusional (telling SW who is marginally younger than him that she could be his daughter). just changed zyprexa dosing as of last night. continue current regimen and observe for continued stabilization. T/C slight increase in lithium dosing. 04/24: Laying in bed. guarded. calm. did not want to get out of bed to meet with T/W. Pt reports feeling great today but declined to go into detail. listening to music on unit headphones. Pt stated, I'm fine. I don't need anything . denies any issues at this time. denies SI/HI/VH/AH. Continue current tx plan. 04/25: Laying in bed. keeping to self. calm. paranoid. Discussed incident that occurred with staff last evening. Pt stated, the counselor made up a lie yesterday. I said she looks like my ex-girlfriend. I know they are related. They want to make up a lie to irritate me. They are trying to talk to me so they can use recording devices and make me look some kind of way . listening to music on unit headphones. denies SI/HI/VH/AH. Continue current tx plan. 04/26: Continue current regimen and plans. Increase Zyprexa 20 mg q.h.s. fresh air break withheld 04/27: Continue current regimen and plans 04/28: somewhat less irritable and agitated than last week. however, over the weekend was claiming he was the father of a footballer on TV and also that a staff member is a twin of his ex-GF (and he pushed staff member). TFTs improving. continue current mgmt. 04/29: no change in presentation. continue current mgmt. 04/30: no irritable edge today. calm, pleasant. engaging in small talk. reality testing not pressed. continue current mgmt for now. 05/01: no change in presentation. continue current mgmt. 05/02: BPs coming down, DC beta joanne as pt has been refusing anyway. remains not antagonistic toward MD. using phone appropriately. continue current mgmt otherwise. 05/03 continue 05/04: remains delusional, irritable/labile when delusional system confronted. declines to sign TOMMY for [facility] records. continue current mgmt. 05/06: declining to meet with MD, but does meet with medical student. remains upset about yesterday's confrontation re his delusional system. 05/07: Active on unit. keeping to self. pacing unit hallway while listening to unit headphones. medication compliant. patient reports feeling good ; pt stated, I'm just waiting to leave here. I want to return to my life and do things like go grocery shopping . denies SI/HI/VH/AH. Continue current tx plan. 05/08: stable presentation, delusions not being brought to the surface daily. remains affectively improved from admission. continue current mgmt. 05/09: calm, pleasant. no questions or complaints. continue current mgmt. 05/10: no change in presentation. due to lack of improvement in dental infection Sx, DC PCN and start augmentin. 05/11: no change in presentation. continue current mgmt. 05/12: as for yesterday. dental pain improving a bit. 05/13: expressed to medical student that his brother poisoned him, causing his thyroid disease. no change in presentation. continue current mgmt. 05/14: Pacing unit hallway. keeping to self. patient reports feeling good today; denies any issues at this time. denies SI/HI/VH/AH. per nursing, slept 5 hours. Continue current tx plan. 05/15: slept 6 hours. otherwise isolative, difficult to engage. continue current mgmt. 05/16: slept 7 hours. as for yesterday otherwise. 05/17/25: Slept well, no issue with appetite, skinny and pretty tall. Compliant with medication. No side effects Calm and pleasant upon approach. Some what paranoid. Tangential, however denies other safety concerns. Questions if he is discharging soon. He is on antibiotic for 7 days for mouth pain/tooth pain. We will finish the 7 course up in antibiotic after tonight dose. Then discontinue. 05/18/25: Slept for 5 hours plus hours this morning. In bed most of the shift, no behavior issues. Denies other safety concerns. 05/19: in bed days, up eves. no change in presentation. continue current mgmt. 05/20: no change in presentation. check labs. 05/21: lithium low, TFTs mixed and not all back. increase lithium from 600 BID to 600/900. trend BUN/Cr, with slight elevation. otherwise continue current mgmt. 05/22: no change in presentation. continue current mgmt. 05/23: does not deny someone stole his sperm and impregnated his landlord's child with it. irritable. c/o dental pain, antibx restarted. otherwise continue current mgmt. 05/14: no change in mgt 05/25: more isolative today; no change in mgt 05/26: decreases in methimazole noted. continue psych regimen as is. pt refused to interact with MD today. 05/27: i'm sleeping. no change in presentation. labs tonight. 05/28: no change in behavior. lithium 0.66, BUN stable. continue current mgmt. 05/29: irritable. continue current mgmt. 05/30: no longer in single room. still not engaging, sleeping days. continue current mgmt. 05/31:laying in bed. declined to meet with T/W. pt stated, I want to sleep. I didn't sleep enough . Pt encouraged to reach out to staff if he needs anything. Continue current tx plan. 06/01: Similar to yesterday. laying in bed. Irritable. declined to meet with T/W and pulled bed sheets over head. pt stated, I don't want to talk. I want to sleep . difficult to engage. Continue current tx plan. 06/02: Similar to yesterday. laying in bed. Irritable. declined to meet with T/W. Observed getting drink from kitchen; T/W approached pt and asked if they could speak. patient declined to acknowledge T/W and walked past. Continue current tx plan. 06/03: no change in behavior. continue tx plan. 06/04/25: Passive engaged in the assessment, in bed mostly sleeping this morning which could be interfere with his nighttime. Cover body under the blanket Slept for 4-5 hours last night. Was medication compliant, attended no groups, isolative to self in room. No SI/SIB/HI/AVH expressed. 06/05: continue tx plan. 06/06: reports feeling fine ; continues guarded. difficult to engage. declining to meet with T/W. continue tx plan. 06/07/25: Slept for 4 hours at night, but has been sleeping most of the day yesterday as well. Spent majority of the shift in bed, was medication compliant. Passive engaged in the conversation. He said he will try to change the sleeping pattern so that he can be awake more during the daytime. Appear to be sedated in the morning. No safety behavior. 06/08/25: Slept for 3-4 hours last night, compliant with medications. Denies side effects, denies other safety concerns. Continued to encourage patient to up and down more than on the unit he spent most of the day sleeping. He is pleasant upon approach. No other behavior issues. Denied voices/hallucinations. Suicide thoughts or homicidal thoughts. 4: sleeping, minimally rousable. denies problems. continue current mgmt. 85: sleeping all day, up most of the night. minimally rousable. denies problems. continue current mgmt. per SW [place]: Jean said when he leaves he can return to [facility]. he was living with a lady there and can go back. He plans to get a job to pay off his debt. He said he owes money because they sent him back here due to losing his passport and he owes them money for the temporary emergency passport and the flight back to the . so his main focus is to get a job. he said he will try things here first and if it doesn't work out he plans to return to [place]. 06/11/25: Passively engaged in conversation while in bed sleeping/resting. Able to answer question appropriately, but seems to be minimized. Denies SI/SIB/HI/AVH. He slept 5 hours last night, spent most of the day in bed sleeping. Attempted to no groups, observed out to the afternoon in the subramanian near the nurse station. No change in presentation. Encourage groups,up and engaged in groups. 06/12: not engaging. no complaints or questions re med changes. cross-taper zyprexa in favor of invega, give MONTERO invega. tonight, decrease zyprexa to 15 mg and start invega 3 mg. otherwise continue current mgmt. 06/13: continues avoidant and disengaged. denies side effects from med change last night. informed cross-titration will advance tonight. decrease zyprexa to 10 mg tonight, increase paliperidone to 6 mg. plan to continue by 5 mg zyprexa and 3 mg paliperidone increments every several days as tolerated until zyprexa DCed and paliperidone at 12 mg QHS. once it is established pt is tolerating PO Paliperidone, invega sustenna to be administered. 06/14: Continue current regimen and plans 06/15: Continue current plans and regimen 06/16: irritable re neuroleptic change. denies side effects or problems with it, however. minimally engageable. increase invega to 9 QHS and decrfease zyprexa to 5 QHS. 06/17/25: Continued to be irritable regarding medication change/titration. However engaged in conversation, hyper verbal, paranoid, reports medication slow his thoughts down and he does not not like it. Poor insight and poor judgment. He thinks he only need lithium, not other medications. Remind patient to continue doing the sleep pattern changing. However his in bed mostly this morning. Slept for 4-5 hours last night. 06/18/25: Slept for 5 hours last night as he continues sleeping during daytime. Compliant with meds, did not c/o side effects.Passingly engaging in assessment. Denies safety concerns. Tolerate the tritation well. Will increase Inveag up to max of 12 tomorrow and Discontinue Olanzepine at HS. Continue to encourage up and out on day so he can sleep better at HS. 06/19/25: Patient slept for 5.5 hours last night, was medication compliant, mostly in his room yesterday but seen more often in the evening. Patient is awake in his room, listen to music, his morning tray was taken away and clean the area. He is very pleasant to talk to today, reports he feels good, denies side effects from medications, denies any safety concerns. Denies feeling sedation, denies anxiety/depression. He is receptive with the plan of medication over the weekends and next week, happy to hear about the medication plan. He also agree with the MONTERO Invega Sustenna on Monday. Encourage him to go out and attended to groups, he said that he will. Reported that he was out for groups a couple of times last week. Discontinue Haldol p.r.n.. Discontinue scheduled Zyprexa 5 mg at bedtime. Only on Zyprexa at g IM daily p.r.n. as backup orders if refused Invega. Invega 12 mg at bedtime. Plan to monitor over the weekends and will give long- acting injection on Monday if tolerate with the p.o. well Reduce Seroquel 200 mg p.r.n. at bedtime to 100 p.r.n. at bedtime for insomnia. Seroquel 50 mg b.i.d. p.r.n. for agitation. Discontinue Motrin. Patient on lithium. Labs were for MondayJune 20: CMP, TSH with free T4. 06/20/25: In bed most of the day, was compliant with medication, however refused labs work. Re- scheduled for Monday. Continue with Invega 12 mg at bedtime. We will reassess and offer long-acting injection on Monday. Continue to encourage patient to get up and go to some groups. No safety concerns expressed. Minimal peer and staff interaction. 06/21: no change in presentation. start MONTERO monday. no s/e from invega. otherwise continue current mgmt. 06/22: stable. continue current mgmt. 06/23/25: More awake and alert. Review with patient regarding policy for his phone use BID 30min each time, patient is educated on compliant with policy. He asks for more 5-10 min extra headphone use at night on the weekends after 2300. Once again, redirected for unit rules. He agrees with MONTERO which is scheduled today. Discontinue Invega PO Invega Sustenna 234mg IM once. Will monitor for possible side effects and sedation. Will offer 156mg after 1 week. If mentaly stable with 156mg, will maintain at this dose, if not will offer 234mg Monthly. 06/24/25: Slept for 5 hours last night, but also went to bed around 7 tonight p.m. last night per his report. He also attended to groups in the afternoon yesterday. Compliant with medications. No side effects from Invega Sustenna. He is engaged in full conversation today why he is in bed, denies safety concerns. Observe he is on the unit, social with peers and staff in longer period of time. Appeared to be happy. He plans to take shower today. Reported that he was up early but he does not feel hungry in the morning. He is making progress, not too sedated during daytime since switching his medication. Appears to do well so far with Invega Sustenna. 06/25/25: Patient slept for 4 hours last night, however he reported was napping in the afternoon for couple hours which affect his sleeping pattern at night. Educate patient to not napping late in the evening. He is receptive. Compliant with medications, no side effects. He reports his did not shower yesterday but he will today. He is awake in his room not sleeping, engage in full conversation, no delusional or paranoid statements make. He is visible at times. Continued to improve in mood, engaging in other activities on the unit. Denies other safety concerns. Denies hallucinations. No irritability mood, not sedated during day time compared to when he was taking olanzapine. We will schedule Invega Sustenna 156 next Monday. Work with director social service to see where he will return to. He probably needs [facility] to manage medication. 06/26/25: He slept for 5 hours, compliant with medications. Denies side effects. He self-reported that he went to bed last night and was able to fall asleep by 01:00 and able to stay asleep whole night. Denies safety concerns. I spoke with him in length today regarding aftercare. He thinks he will go to the hospital in [place] to ask them regarding his heart condition. He thinks people was lying to get him to the hospital as he does not have mental health illnesses. He believes that he has been exactly the same he was seen he was a little, and at he able to remember everything in the past. He also reports that he used to use [facility] in [place]. At he does not want [facility] application. I explained to him that in order to be a candidate patient have to be a safe that he has mental health issues, so people can submit the application, and from the [facility] worker will contact him to do assessment if he qualify for any services that they can provide. Patient is receptive application, director social service was notified. Patient also would like to have services with [facility] in [place]. He showered yesterday morning, did not go to groups yesterday, but he will go to some groups today per his plan for the day, more awake, engaged in conversation, no irritability. However, continued to be poor insight of his illnesses. He does not want to return to his brother I have not talking to him for since 2021. He reported that that his brother told other people that patient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
[2025-07-10 14:52] VITALS: BMI 23.2
[2025-07-10 19:12] VITALS: BP 154/83; PULSE 104; RESP 16; TEMP 36.8; O2SAT 100
--- NOTE | 2025-07-11 13:00 | P.PNPSI_ITS ---
Subjective Subjective Date of Service: 07/11/25 Reason For Visit: psychotic disorder Interim History: lying in bed. rousable. more engageable. states he wants to get into a [facility] respite bed. spoke with his brother yesterday, which went well. c/o dental pain from 2 cracked teeth. per staff, no dep/anx. [facility] meeting went well. attending some groups. cheerful, visible, taking meds. Mental Status Exam Mental Status Exam Narrative: under blanket. rouses himself and makes sustained eye contact today. more actively engaging in assessment. no PMA/PMR. cooperative. speech nml rate and amount and loudness. thoughts linear and logical. affect constricted, normo- intense. mood not assessed. Denies safety concerns. No SI/SIB/HI/AVH expressed. Diagnostics Vital Signs (24Hr): Vital Signs - 24 hr 07/10/25 19:12 Temperature 98.2 F Pulse Rate 104 H Respiratory Rate 16 Blood Pressure 154/83 H Pulse Oximetry 100 Oxygen Delivery Method Room Air BMI result Body Mass Index 23.2 Labs 06/25/25 08:02 06/20/25 20:35 Medications Medications Current Medications Acetaminophen (Acetaminophen 325 Mg Tablet) 650 mg PO Q4H PRN PRN Reason: Pain, Mild (Pain Scale 1-3) Last Admin: 07/06/25 22:53 Dose: 650 mg Al Hydroxide/Mg Hydroxide (Magnesium Hydrox/Alum Hydrox 30 Ml Oral.Susp) 30 ml PO Q6H PRN PRN Reason: Heart burn Benzocaine (Benzocaine 20 % Oral Gel 14 Gm Tube) 1 appl MUCOUS MEM QID PRN; Protocol PRN Reason: Mouth Sore Pain Last Admin: 04/26/25 18:33 Dose: 1 appl Diazepam (Diazepam 10 Mg/2 Ml Cartridge) 10 mg IM BID PRN PRN Reason: refusal of lithium, per everett Last Admin: 04/11/25 09:56 Dose: 10 mg Glycopyrrolate (Glycopyrrolate 1 Mg Tablet) 0.5 mg PO BID [facility] Last Admin: 07/11/25 10:17 Dose: 0.5 mg W[place]om Carbonate (Wixom Carbonate Er 300 Mg Tablet.Er) 600 mg PO DAILY [facility] Last Admin: 07/11/25 10:17 Dose: 600 mg [place]om Carbonate (Wixom Carbonate Er 450 Mg Tablet.Er) 900 mg PO DAILY@2300 [facility] Last Admin: 07/10/25 23:15 Dose: 900 mg Magnesium Hydroxide (Milk Of Magnesia 30 Ml Oral.Susp) 30 ml PO DAILY PRN PRN Reason: Constipation Methimazole (Methimazole 10 Mg Tablet) 10 mg PO DAILY [facility] Last Admin: 07/11/25 10:19 Dose: 10 mg Nicotine (Nicotine 21 Mg Patch.Td24) 21 mg TRANSDERMA DAILY PRN PRN Reason: nicotine cravings Last Admin: 04/12/25 17:06 Dose: 21 mg Nicotine Polacrilex (Nicotine Polacrilex Lozenge 2 Mg Lozenge) 2 mg BUCCAL Q1H PRN PRN Reason: Nicotine Cravings Last Admin: 04/30/25 08:49 Dose: 2 mg Patient Own Medication Excedrin 250/250/65mg 2 each PO Q8H PRN PRN Reason: Migraine Headache Last Admin: 07/07/25 06:31 Dose: 2 each Olanzapine (Olanzapine 10 Mg Vial) 10 mg IM DAILY PRN PRN Reason: if refuse Invega PO Pseudoephedrine HCl (Pseudoephedrine Hcl 30 Mg Tablet) 30 mg PO Q6H PRN PRN Reason: Congestion Last Admin: 07/03/25 21:18 Dose: 30 mg Quetiapine Fumarate (Quetiapine Fumarate 100 Mg Tablet) 100 mg PO BEDTIME PRN PRN Reason: insomnia Quetiapine Fumarate (Quetiapine Fumarate 50 Mg Tablet) 50 mg PO BID PRN PRN Reason: agitation Sodium Chloride (Sodium Chloride 0.65 % Nasal 44 Ml Sprbtl) 1 spray NOSTRIL-B Q4H PRN PRN Reason: Congestion Last Admin: 07/03/25 23:03 Dose: 1 spray Allergies Allergies Allergy/AdvReac Type Severity Reaction Status Date / Time No Known Allergies Allergy Verified 03/26/25 14:24 Assessment & Plan Assessment & Plan (1) Graves disease: Status: Acute Code(s): E05.00 - Thyrotoxicosis with diffuse goiter without thyrotoxic crisis or storm Assessment and Plan: Hyperthyroidism/Graves disease. He will need follow up with endocrinology as an outpatient He will also need a primary care doctor referral as an outpatient Discussed with Dr. Bejarano, patient will need free T4 weekly Decrease Methimazole to 15 mgs daily for three days and then 10 mgs daily- discussed with patient he is aware of plan and rationale. TSH and free T4 every 4 weeks. No need to draw thyroid stimulation immunology or TSH receptor AB (2) Dental abscess: Status: Acute Code(s): K04.7 - Periapical abscess without sinus Assessment and Plan: Carious tooth/dental infection Recently treated with PEN VK 500 mg q.6 hours for 7 days Patient will need follow up with dentist on discharge for tooth extraction Motrin helping pain. (3) Becca: Status: Acute Code(s): F30.9 - Manic episode, unspecified Plan 03/26: offer lithium and seroquel for becca. continue methimazole and beta joanne for [place] as [place] [facility] [place] trend TFTs. 12b. 03/27: taking methimazole and beta joanne. refused HS meds last night, took morning meds today. continue to encourage medication compliance. 03/28: intermittently taking meds. wants all meds in morning. pressured, manic, paranoid delusions. encouraged to take lithium but states he will not. all meds ordered for morning. 03/29: Keeping to self. no groups. observed laying in bed listening to music on unit headphones. pleasant. Pt reports feeling good today and sleeping well. declined lithium and zyprexa. denies SI/HI/VH/AH. continue current tx plan. 03/30:Irritable. upset he was unable to use his personal hygiene products. Per nursing, pt threatened staff and squeezed tooth paste throughout unit hallway to show his frustration. Pt was able to calm down after speaking with security. declined medications. 03/31: Keeping to self. laying in bed listening to music. refused medications. calm today. Patient reports feeling great ; pt stated, nothing is wrong with me. I'm waiting so I can leave tomorrow. I'm hoping for the best . denies SI/HI/VH/AH. per nursing, slept 6 hours. Continue current tx plan. 04/01: variably calm on the unit versus highly agitated. paranoid delusions, irritability, lability continue. seems to believe MD has met him prior to the present hospitalization and is stalking him. believes brother behind conspiracy to have him psychiatrically hospitalized. has been refusing all medications, including for hyperthyroidism. informed he would be filed on. filed. continue to offer medications. 04/02: continues agitated, belittling, verbally aggressive, refusing all medications including for hyperthyroidism. continue to offer medication. 04/03: paranoid there is a conspiracy to hospitalize him. threatening to stick a stick in staff once he is released by land examiner. insists his hyperthyroidism was cured at [facility]. asserts there is NOTHING wrong with him. continue to offer medication. 04/04: irritable, rejecting. verbally abuses MD and sends him away: see you on monday [in court]. continue to offer medication for thyroid condition and mental illness. 04/05 continue tx. suspicious and guarded, accusatory, verbal threats to hurt staff and peers 04/06 intrusive, posturing towards staff and peer who he thinks is not real and is an impostor, continues to make verbal threats to harm him but thinks that because he is not real he may not experience any pain. 04/07: threatening statements and behaviors of yesterday noted. pt sleeping this morning, dismissive of MD. 04/08: asleep days. committed and meds ordered by court. 04/09: on being informed of court order and MD insisting on meds, pt escalated to hurling food item in container against wall at high speed and saying he wished he could do the same to MD's head. pt eventually took court ordered meds PO. sensodyne and excedrin not available in pharmacy (pt requesting them). 04/10: continue tx. Pt accepting medication today. 04/11: Keeping to self. Lying in bed most of morning. Declined to meet with T/W. Pt stated, I'm fine. I don't need anything . Listening to headphones in room. Declined court ordered PO medications; received IM medications. Refused vital signs.continue tx plan. 04/12: got IMs yesterday, took PO this morning. sleepy, no concerns or complaints. 04/13: taking PO meds again. slept 7 hours. sleepy again mid morning refusing interview. continue current mgmt. 04/14: sleeping, rousable. denies being sedated or tired, says he's just bored. no questions or complaints. informed of need to check labs. check lithium level and thyroid labs tonight. 04/15: refusing labs. delusional re his brother harming him. verbally abusive toward MD. spat in floor. happy with improvement in proptosis. 04/16: Lying in bed. Calm. cooperative. guarded. Pt reports feeling tired this morning d/t poor sleep last night. Pt stated, I don't need anything. I didn't sleep well so I'm trying to catch up . denies any issues at this time. denies SI/HI/VH/AH. Continue current tx plan. 04/17: more calm today, less explosive. continue current mgmt. 04/18: continues more calm. tolerating moments of frustration without verbally attacking MD. slept only 2 hours overnight, however. continue current mgmt. 04/19 continues to push boundaries and limits with staff mike around cell phone- 04/20 - aggressive with staff and unpredictable- threw water pitcher at staff behind desk/-when seen by provider passive in bed-denying all compaints/sys- no insight 04/21: appears as per last week. more difficult behaviors around cell phone use, did throw pitcher of water at RN monday over phone use and was restrained. continue current mgmt. 04/22: continues to have conflict around cell phone use. consolidate zyprexa at HS to decrease daytime sedation. 1:1 allegra shift until peer he is accusing of not being a real patient and appears to be targeting discharges tomorrow. 04/23: lithium 0.6 on 600 BID. sleeping better, remains delusional (telling SW who is marginally younger than him that she could be his daughter). just changed zyprexa dosing as of last night. continue current regimen and observe for continued stabilization. T/C slight increase in lithium dosing. 04/24: Laying in bed. guarded. calm. did not want to get out of bed to meet with T/W. Pt reports feeling great today but declined to go into detail. listening to music on unit headphones. Pt stated, I'm fine. I don't need anything . denies any issues at this time. denies SI/HI/VH/AH. Continue current tx plan. 04/25: Laying in bed. keeping to self. calm. paranoid. Discussed incident that occurred with staff last evening. Pt stated, the counselor made up a lie yesterday. I said she looks like my ex-girlfriend. I know they are related. They want to make up a lie to irritate me. They are trying to talk to me so they can use recording devices and make me look some kind of way . listening to music on unit headphones. denies SI/HI/VH/AH. Continue current tx plan. 04/26: Continue current regimen and plans. Increase Zyprexa 20 mg q.h.s. fresh air break withheld 04/27: Continue current regimen and plans 04/28: somewhat less irritable and agitated than last week. however, over the weekend was claiming he was the father of a footballer on TV and also that a staff member is a twin of his ex-GF (and he pushed staff member). TFTs improving. continue current mgmt. 04/29: no change in presentation. continue current mgmt. 04/30: no irritable edge today. calm, pleasant. engaging in small talk. reality testing not pressed. continue current mgmt for now. 05/01: no change in presentation. continue current mgmt. 05/02: BPs coming down, DC beta joanne as pt has been refusing anyway. remains not antagonistic toward MD. using phone appropriately. continue current mgmt otherwise. 05/03 continue 05/04: remains delusional, irritable/labile when delusional system confronted. declines to sign TOMMY for [facility] records. continue current mgmt. 05/06: declining to meet with MD, but does meet with medical student. remains upset about yesterday's confrontation re his delusional system. 05/07: Active on unit. keeping to self. pacing unit hallway while listening to unit headphones. medication compliant. patient reports feeling good ; pt stated, I'm just waiting to leave here. I want to return to my life and do things like go grocery shopping . denies SI/HI/VH/AH. Continue current tx plan. 05/08: stable presentation, delusions not being brought to the surface daily. remains affectively improved from admission. continue current mgmt. 05/09: calm, pleasant. no questions or complaints. continue current mgmt. 05/10: no change in presentation. due to lack of improvement in dental infection Sx, DC PCN and start augmentin. 05/11: no change in presentation. continue current mgmt. 05/12: as for yesterday. dental pain improving a bit. 05/13: expressed to medical student that his brother poisoned him, causing his thyroid disease. no change in presentation. continue current mgmt. 05/14: Pacing unit hallway. keeping to self. patient reports feeling good today; denies any issues at this time. denies SI/HI/VH/AH. per nursing, slept 5 hours. Continue current tx plan. 05/15: slept 6 hours. otherwise isolative, difficult to engage. continue current mgmt. 05/16: slept 7 hours. as for yesterday otherwise. 05/17/25: Slept well, no issue with appetite, skinny and pretty tall. Compliant with medication. No side effects Calm and pleasant upon approach. Some what paranoid. Tangential, however denies other safety concerns. Questions if he is discharging soon. He is on antibiotic for 7 days for mouth pain/tooth pain. We will finish the 7 course up in antibiotic after tonight dose. Then discontinue. 05/18/25: Slept for 5 hours plus hours this morning. In bed most of the shift, no behavior issues. Denies other safety concerns. 05/19: in bed days, up eves. no change in presentation. continue current mgmt. 05/20: no change in presentation. check labs. 05/21: lithium low, TFTs mixed and not all back. increase lithium from 600 BID to 600/900. trend BUN/Cr, with slight elevation. otherwise continue current mgmt. 05/22: no change in presentation. continue current mgmt. 05/23: does not deny someone stole his sperm and impregnated his landlord's child with it. irritable. c/o dental pain, antibx restarted. otherwise continue current mgmt. 05/14: no change in mgt 05/25: more isolative today; no change in mgt 05/26: decreases in methimazole noted. continue psych regimen as is. pt refused to interact with MD today. 05/27: i'm sleeping. no change in presentation. labs tonight. 05/28: no change in behavior. lithium 0.66, BUN stable. continue current mgmt. 05/29: irritable. continue current mgmt. 05/30: no longer in single room. still not engaging, sleeping days. continue current mgmt. 05/31:laying in bed. declined to meet with T/W. pt stated, I want to sleep. I didn't sleep enough . Pt encouraged to reach out to staff if he needs anything. Continue current tx plan. 06/01: Similar to yesterday. laying in bed. Irritable. declined to meet with T/W and pulled bed sheets over head. pt stated, I don't want to talk. I want to sleep . difficult to engage. Continue current tx plan. 06/02: Similar to yesterday. laying in bed. Irritable. declined to meet with T/W. Observed getting drink from kitchen; T/W approached pt and asked if they could speak. patient declined to acknowledge T/W and walked past. Continue current tx plan. 06/03: no change in behavior. continue tx plan. 06/04/25: Passive engaged in the assessment, in bed mostly sleeping this morning which could be interfere with his nighttime. Cover body under the blanket Slept for 4-5 hours last night. Was medication compliant, attended no groups, isolative to self in room. No SI/SIB/HI/AVH expressed. 06/05: continue tx plan. 06/06: reports feeling fine ; continues guarded. difficult to engage. declining to meet with T/W. continue tx plan. 06/07/25: Slept for 4 hours at night, but has been sleeping most of the day yesterday as well. Spent majority of the shift in bed, was medication compliant. Passive engaged in the conversation. He said he will try to change the sleeping pattern so that he can be awake more during the daytime. Appear to be sedated in the morning. No safety behavior. 06/08/25: Slept for 3-4 hours last night, compliant with medications. Denies side effects, denies other safety concerns. Continued to encourage patient to up and down more than on the unit he spent most of the day sleeping. He is pleasant upon approach. No other behavior issues. Denied voices/hallucinations. Suicide thoughts or homicidal thoughts. 06/09: sleeping, minimally rousable. denies problems. continue current mgmt. 06/10: sleeping all day, up most of the night. minimally rousable. denies problems. continue current mgmt. per JAMAICA Arrington: Jean said when he leaves he can return to [facility]. he was living with a lady there and can go back. He plans to get a job to pay off his debt. He said he owes money because they sent him back here due to losing his passport and he owes them money for the temporary emergency passport and the flight back to the . so his main focus is to get a job. he said he will try things here first and if it doesn't work out he plans to return to [place]. 06/11/25: Passively engaged in conversation while in bed sleeping/resting. Able to answer question appropriately, but seems to be minimized. Denies SI/SIB/HI/AVH. He slept 5 hours last night, spent most of the day in bed sleeping. Attempted to no groups, observed out to the afternoon in the subramanian near the nurse station. No change in presentation. Encourage groups,up and engaged in groups. 06/12: not engaging. no complaints or questions re med changes. cross-taper zyprexa in favor of invega, give MONTERO invega. tonight, decrease zyprexa to 15 mg and start invega 3 mg. otherwise continue current mgmt. 06/13: continues avoidant and disengaged. denies side effects from med change last night. informed cross-titration will advance tonight. decrease zyprexa to 10 mg tonight, increase paliperidone to 6 mg. plan to continue by 5 mg zyprexa and 3 mg paliperidone increments every several days as tolerated until zyprexa DCed and paliperidone at 12 mg QHS. once it is established pt is tolerating PO Paliperidone, invega sustenna to be administered. 06/14: Continue current regimen and plans 06/15: Continue current plans and regimen 06/16: irritable re neuroleptic change. denies side effects or problems with it, however. minimally engageable. increase invega to 9 QHS and decrfease zyprexa to 5 QHS. 06/17/25: Continued to be irritable regarding medication change/titration. However engaged in conversation, hyper verbal, paranoid, reports medication slow his thoughts down and he does not not like it. Poor insight and poor judgment. He thinks he only need lithium, not other medications. Remind patient to continue doing the sleep pattern changing. However his in bed mostly this morning. Slept for 4-5 hours last night. 06/18/25: Slept for 5 hours last night as he continues sleeping during daytime. Compliant with meds, did not c/o side effects.Passingly engaging in assessment. Denies safety concerns. Tolerate the tritation well. Will increase Inveag up to max of 12 tomorrow and Discontinue Olanzepine at HS. Continue to encourage up and out on day so he can sleep better at HS. 06/19/25: Patient slept for 5.5 hours last night, was medication compliant, mostly in his room yesterday but seen more often in the evening. Patient is awake in his room, listen to music, his morning tray was taken away and clean the area. He is very pleasant to talk to today, reports he feels good, denies side effects from medications, denies any safety concerns. Denies feeling sedation, denies anxiety/depression. He is receptive with the plan of medication over the weekends and next week, happy to hear about the medication plan. He also agree with the MONTERO Invega Sustenna on Monday. Encourage him to go out and attended to groups, he said that he will. Reported that he was out for groups a couple of times last week. Discontinue Haldol p.r.n.. Discontinue scheduled Zyprexa 5 mg at bedtime. Only on 10 Zyprexa at g IM daily p.r.n. as backup orders if refused Invega. Invega 12 mg at bedtime. Plan to monitor over the weekends and will give long- acting injection on Monday if tolerate with the p.o. well Reduce Seroquel 200 mg p.r.n. at bedtime to 100 p.r.n. at bedtime for insomnia. Seroquel 50 mg b.i.d. p.r.n. for agitation. Discontinue Motrin. Patient on lithium. Labs were for MondayJune 20: CMP, TSH with free T4. 06/20/25: In bed most of the day, was compliant with medication, however refused labs work. Re- scheduled for Monday. Continue with Invega 12 mg at bedtime. We will reassess and offer long-acting injection on Monday. Continue to encourage patient to get up and go to some groups. No safety concerns expressed. Minimal peer and staff interaction. 06/21: no change in presentation. start MONTERO monday. no s/e from invega. otherwise continue current mgmt. 06/22: stable. continue current mgmt. 06/23/25: More awake and alert. Review with patient regarding policy for his phone use BID 30min each time, patient is educated on compliant with policy. He asks for more 5-10 min extra headphone use at night on the weekends after 2300. Once again, redirected for unit rules. He agrees with MONTERO which is scheduled today. Discontinue Invega PO Invega Sustenna 234mg IM once. Will monitor for possible side effects and sedation. Will offer 156mg after 1 week. If mentaly stable with 156mg, will maintain at this dose, if not will offer 234mg Monthly. 06/24/25: Slept for 5 hours last night, but also went to bed around 7 tonight p.m. last night per his report. He also attended to groups in the afternoon yesterday. Compliant with medications. No side effects from Invega Sustenna. He is engaged in full conversation today why he is in bed, denies safety concerns. Observe he is on the unit, social with peers and staff in longer period of time. Appeared to be happy. He plans to take shower today. Reported that he was up early but he does not feel hungry in the morning. He is making progress, not too sedated during daytime since switching his medication. Appears to do well so far with Invega Sustenna. 06/25/25: Patient slept for 4 hours last night, however he reported was napping in the afternoon for couple hours which affect his sleeping pattern at night. Educate patient to not napping late in the evening. He is receptive. Compliant with medications, no side effects. He reports his did not shower yesterday but he will today. He is awake in his room not sleeping, engage in full conversation, no delusional or paranoid statements make. He is visible at times. Continued to improve in mood, engaging in other activities on the unit. Denies other safety concerns. Denies hallucinations. No irritability mood, not sedated during day time compared to when he was taking olanzapine. We will schedule Invega Sustenna 156 next Monday. Work with hospital social worker to see where he will return to. He probably needs [facility] to manage medication. 06/26/25: He slept for 5 hours, compliant with medications. Denies side effects. He self-reported that he went to bed last night and was able to fall asleep by 01:00 and able to stay asleep whole night. Denies safety concerns. I spoke with him in length today regarding aftercare. He thinks he will go to the hospital in [place] to ask them regarding his heart condition. He thinks people was lying to get him to the hospital as he does not have mental health illnesses. He believes that he has been exactly the same he was seen he was a little, and at he able to remember everything in the past. He also reports that he used to use [facility] in [place]. At he does not want [facility] application. I explained to him that in order to be a candidate patient have to be a safe that he has mental health issues, so people can submit the application, and from the [facility] worker will contact him to do assessment if he qualify for any services that they can provide. Patient is receptive application, hospital social worker was notified. Patient also would like to have services with [facility] in [place]. He showered yesterday morning, did not go to groups yesterday, but he will go to some groups today per his plan for the day, more awake, engaged in conversation, no irritability. However, continued to be poor insight of his illnesses. He does not want to return to his brother I have not talking to him for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
[2025-07-11 20:00] VITALS: BP 158/83; PULSE 90; RESP 16; TEMP 37.3; O2SAT 100
--- NOTE | 2025-07-12 07:47 | HO.PSYCHPN ---
Subjective Subjective Date of Service: 07/12/25 Reason For Visit: psychotic disorder Subjective Notes: Section 8 Interim History: lying in bed. rousable. reports having no complaints and feeling good. Pleasant with senior copywriter. No overt psychosis noted. No management issues as per nursing. Sleeping well. Awaiting [facility] respite bed Medication Compliance: Yes Side effects from medications: No Attending Groups: No Review of Systems Acute medical concerns: No Review of Systems Review of Systems nothing of note Mental Status Exam Mental Status Exam Narrative: under blanket. fair eye contact and more engaging in assessment. no PMA/PMR. cooperative. speech nml rate and amount and loudness. thoughts linear and logical. affect constricted, normo-intense. mood good . Denies safety concerns. No SI/SIB/HI/AVH expressed. Diagnostics Vital Signs (24Hr): Vital Signs - 24 hr 07/11/25 20:00 Temperature 99.2 F Pulse Rate 90 Respiratory Rate 16 Blood Pressure 158/83 H Pulse Oximetry 100 Oxygen Delivery Method Room Air BMI result Body Mass Index 23.2 Labs 06/25/25 08:02 06/20/25 20:35 Medications Medications Current Medications Acetaminophen (Acetaminophen 325 Mg Tablet) 650 mg PO Q4H PRN PRN Reason: Pain, Mild (Pain Scale 1-3) Last Admin: 07/06/25 22:53 Dose: 650 mg Al Hydroxide/Mg Hydroxide (Magnesium Hydrox/Alum Hydrox 30 Ml Oral.Susp) 30 ml PO Q6H PRN PRN Reason: Heart burn Benzocaine (Benzocaine 20 % Oral Gel 14 Gm Tube) 1 appl MUCOUS MEM QID PRN; Protocol PRN Reason: Mouth Sore Pain Last Admin: 04/26/25 18:33 Dose: 1 appl Diazepam (Diazepam 10 Mg/2 Ml Cartridge) 10 mg IM BID PRN PRN Reason: refusal of lithium, per everett Last Admin: 04/11/25 09:56 Dose: 10 mg Glycopyrrolate (Glycopyrrolate 1 Mg Tablet) 0.5 mg PO BID [facility] Last Admin: 07/11/25 22:09 Dose: 0.5 mg [place] Carbonate ([place] Carbonate Er 300 Mg Tablet.Er) 600 mg PO DAILY [facility] Last Admin: 07/11/25 10:17 Dose: 600 mg [place] Carbonate ([place] Carbonate Er 450 Mg Tablet.Er) 900 mg PO DAILY@2300 [facility] Last Admin: 07/11/25 22:09 Dose: 900 mg Magnesium Hydroxide (Milk Of Magnesia 30 Ml Oral.Susp) 30 ml PO DAILY PRN PRN Reason: Constipation Methimazole (Methimazole 10 Mg Tablet) 10 mg PO DAILY [facility] Last Admin: 07/11/25 10:19 Dose: 10 mg Nicotine (Nicotine 21 Mg Patch.Td24) 21 mg TRANSDERMA DAILY PRN PRN Reason: nicotine cravings Last Admin: 04/12/25 17:06 Dose: 21 mg Nicotine Polacrilex (Nicotine Polacrilex Lozenge 2 Mg Lozenge) 2 mg BUCCAL Q1H PRN PRN Reason: Nicotine Cravings Last Admin: 04/30/25 08:49 Dose: 2 mg Patient Own Medication Excedrin 250/250/65mg 2 each PO Q8H PRN PRN Reason: Migraine Headache Last Admin: 07/07/25 06:31 Dose: 2 each Olanzapine (Olanzapine 10 Mg Vial) 10 mg IM DAILY PRN PRN Reason: if refuse Invega PO Paliperidone Palmitate (Paliperidone Palmitate 234 Mg/1.5 Ml Syringe) 234 mg IM Q30D [facility] Pseudoephedrine HCl (Pseudoephedrine Hcl 30 Mg Tablet) 30 mg PO Q6H PRN PRN Reason: Congestion Last Admin: 07/03/25 21:18 Dose: 30 mg Quetiapine Fumarate (Quetiapine Fumarate 100 Mg Tablet) 100 mg PO BEDTIME PRN PRN Reason: insomnia Quetiapine Fumarate (Quetiapine Fumarate 50 Mg Tablet) 50 mg PO BID PRN PRN Reason: agitation Sodium Chloride (Sodium Chloride 0.65 % Nasal 44 Ml Sprbtl) 1 spray NOSTRIL-B Q4H PRN PRN Reason: Congestion Last Admin: 07/03/25 23:03 Dose: 1 spray Allergies Allergies Allergy/AdvReac Type Severity Reaction Status Date / Time No Known Allergies Allergy Verified 03/26/25 14:24 Assessment & Plan Assessment & Plan (1) Graves disease: Status: Acute Code(s): E05.00 - Thyrotoxicosis with diffuse goiter without thyrotoxic crisis or storm Assessment and Plan: Hyperthyroidism/Graves disease. He will need follow up with endocrinology as an outpatient He will also need a primary care doctor referral as an outpatient Discussed with Dr. Bejarano, patient will need free T4 weekly Decrease Methimazole to 15 mgs daily for three days and then 10 mgs daily- discussed with patient he is aware of plan and rationale. TSH and free T4 every 4 weeks. No need to draw thyroid stimulation immunology or TSH receptor AB (2) Dental abscess: Status: Acute Code(s): K04.7 - Periapical abscess without sinus Assessment and Plan: Carious tooth/dental infection Recently treated with PEN VK 500 mg q.6 hours for 7 days Patient will need follow up with dentist on discharge for tooth extraction Motrin helping pain. (3) Becca: Status: Acute Code(s): F30.9 - Manic episode, unspecified Plan 03/26: offer lithium and seroquel for becca. continue methimazole and beta joanne for hyperthyroidism as started at [facility] [place]. trend TFTs. 12b. 03/27: taking methimazole and beta joanne. refused HS meds last night, took morning meds today. continue to encourage medication compliance. 03/28: intermittently taking meds. wants all meds in morning. pressured, manic, paranoid delusions. encouraged to take lithium but states he will not. all meds ordered for morning. 03/29: Keeping to self. no groups. observed laying in bed listening to music on unit headphones. pleasant. Pt reports feeling good today and sleeping well. declined lithium and zyprexa. denies SI/HI/VH/AH. continue current tx plan. 03/30:Irritable. upset he was unable to use his personal hygiene products. Per nursing, pt threatened staff and squeezed tooth paste throughout unit hallway to show his frustration. Pt was able to calm down after speaking with security. declined medications. 03/31: Keeping to self. laying in bed listening to music. refused medications. calm today. Patient reports feeling great ; pt stated, nothing is wrong with me. I'm waiting so I can leave tomorrow. I'm hoping for the best . denies SI/HI/VH/AH. per nursing, slept 6 hours. Continue current tx plan. 04/01: variably calm on the unit versus highly agitated. paranoid delusions, irritability, lability continue. seems to believe MD has met him prior to the present hospitalization and is stalking him. believes brother behind conspiracy to have him psychiatrically hospitalized. has been refusing all medications, including for hyperthyroidism. informed he would be filed on. filed. continue to offer medications. 04/02: continues agitated, belittling, verbally aggressive, refusing all medications including for hyperthyroidism. continue to offer medication. 04/03: paranoid there is a conspiracy to hospitalize him. threatening to stick a stick in staff once he is released by dredging inspector. insists his hyperthyroidism was cured at [facility]. asserts there is NOTHING wrong with him. continue to offer medication. 04/04: irritable, rejecting. verbally abuses MD and sends him away: see you on monday [in court]. continue to offer medication for thyroid condition and mental illness. 04/05 continue tx. suspicious and guarded, accusatory, verbal threats to hurt staff and peers 04/06 intrusive, posturing towards staff and peer who he thinks is not real and is an impostor, continues to make verbal threats to harm him but thinks that because he is not real he may not experience any pain. 04/07: threatening statements and behaviors of yesterday noted. pt sleeping this morning, dismissive of MD. 04/08: asleep days. committed and meds ordered by court. 04/09: on being informed of court order and MD insisting on meds, pt escalated to hurling food item in container against wall at high speed and saying he wished he could do the same to MD's head. pt eventually took court ordered meds PO. sensodyne and excedrin not available in pharmacy (pt requesting them). 04/10: continue tx. Pt accepting medication today. 04/11: Keeping to self. Lying in bed most of morning. Declined to meet with T/W. Pt stated, I'm fine. I don't need anything . Listening to headphones in room. Declined court ordered PO medications; received IM medications. Refused vital signs.continue tx plan. 04/12: got IMs yesterday, took PO this morning. sleepy, no concerns or complaints. 04/13: taking PO meds again. slept 7 hours. sleepy again mid morning refusing interview. continue current mgmt. 04/14: sleeping, rousable. denies being sedated or tired, says he's just bored. no questions or complaints. informed of need to check labs. check lithium level and thyroid labs tonight. 04/15: refusing labs. delusional re his brother harming him. verbally abusive toward MD. spat in floor. happy with improvement in proptosis. 04/16: Lying in bed. Calm. cooperative. guarded. Pt reports feeling tired this morning d/t poor sleep last night. Pt stated, I don't need anything. I didn't sleep well so I'm trying to catch up . denies any issues at this time. denies SI/HI/VH/AH. Continue current tx plan. 04/17: more calm today, less explosive. continue current mgmt. 04/18: continues more calm. tolerating moments of frustration without verbally attacking MD. slept only 2 hours overnight, however. continue current mgmt. 04/19 continues to push boundaries and limits with staff mike around cell phone- 04/20 - aggressive with staff and unpredictable- threw water pitcher at staff behind desk/-when seen by provider passive in bed-denying all compaints/sys- no insight 04/21: appears as per last week. more difficult behaviors around cell phone use, did throw pitcher of water at RN monday over phone use and was restrained. continue current mgmt. 04/22: continues to have conflict around cell phone use. consolidate zyprexa at HS to decrease daytime sedation. 1:1 allegra shift until peer he is accusing of not being a real patient and appears to be targeting discharges tomorrow. 04/23: lithium 0.6 on 600 BID. sleeping better, remains delusional (telling SW who is marginally younger than him that she could be his daughter). just changed zyprexa dosing as of last night. continue current regimen and observe for continued stabilization. T/C slight increase in lithium dosing. 04/24: Laying in bed. guarded. calm. did not want to get out of bed to meet with T/W. Pt reports feeling great today but declined to go into detail. listening to music on unit headphones. Pt stated, I'm fine. I don't need anything . denies any issues at this time. denies SI/HI/VH/AH. Continue current tx plan. 04/25: Laying in bed. keeping to self. calm. paranoid. Discussed incident that occurred with staff last evening. Pt stated, the counselor made up a lie yesterday. I said she looks like my ex-girlfriend. I know they are related. They want to make up a lie to irritate me. They are trying to talk to me so they can use recording devices and make me look some kind of way . listening to music on unit headphones. denies SI/HI/VH/AH. Continue current tx plan. 04/26: Continue current regimen and plans. Increase Zyprexa 20 mg q.h.s. fresh air break withheld 04/27: Continue current regimen and plans 04/28: somewhat less irritable and agitated than last week. however, over the weekend was claiming he was the father of a footballer on TV and also that a staff member is a twin of his ex-GF (and he pushed staff member). TFTs improving. continue current mgmt. 04/29: no change in presentation. continue current mgmt. 04/30: no irritable edge today. calm, pleasant. engaging in small talk. reality testing not pressed. continue current mgmt for now. 05/01: no change in presentation. continue current mgmt. 05/02: BPs coming down, DC beta joanne as pt has been refusing anyway. remains not antagonistic toward MD. using phone appropriately. continue current mgmt otherwise. 05/03 continue 05/04: remains delusional, irritable/labile when delusional system confronted. declines to sign TOMMY for [facility]. continue current mgmt. 05/06: declining to meet with MD, but does meet with medical student. remains upset about yesterday's confrontation re his delusional system. 05/07: Active on unit. keeping to self. pacing unit hallway while listening to unit headphones. medication compliant. patient reports feeling good ; pt stated, I'm just waiting to leave here. I want to return to my life and do things like go grocery shopping . denies SI/HI/VH/AH. Continue current tx plan. 05/08: stable presentation, delusions not being brought to the surface daily. remains affectively improved from admission. continue current mgmt. 05/09: calm, pleasant. no questions or complaints. continue current mgmt. 05/10: no change in presentation. due to lack of improvement in dental infection Sx, DC PCN and start augmentin. 05/11: no change in presentation. continue current mgmt. 05/12: as for yesterday. dental pain improving a bit. 05/13: expressed to medical student that his brother poisoned him, causing his thyroid disease. no change in presentation. continue current mgmt. 05/14: Pacing unit hallway. keeping to self. patient reports feeling good today; denies any issues at this time. denies SI/HI/VH/AH. per nursing, slept 5 hours. Continue current tx plan. 05/15: slept 6 hours. otherwise isolative, difficult to engage. continue current mgmt. 05/16: slept 7 hours. as for yesterday otherwise. 05/17/25: Slept well, no issue with appetite, skinny and pretty tall. Compliant with medication. No side effects Calm and pleasant upon approach. Some what paranoid. Tangential, however denies other safety concerns. Questions if he is discharging soon. He is on antibiotic for 7 days for mouth pain/tooth pain. We will finish the 7 course up in antibiotic after tonight dose. Then discontinue. 05/18/25: Slept for 5 hours plus hours this morning. In bed most of the shift, no behavior issues. Denies other safety concerns. 05/19: in bed days, up eves. no change in presentation. continue current mgmt. 05/20: no change in presentation. check labs. 05/21: lithium low, TFTs mixed and not all back. increase lithium from 600 BID to 600/900. trend BUN/Cr, with slight elevation. otherwise continue current mgmt. 05/22: no change in presentation. continue current mgmt. 05/23: does not deny someone stole his sperm and impregnated his landlord's child with it. irritable. c/o dental pain, antibx restarted. otherwise continue current mgmt. 05/14: no change in mgt 05/25: more isolative today; no change in mgt 05/26: decreases in methimazole noted. continue psych regimen as is. pt refused to interact with MD today. 05/27: i'm sleeping. no change in presentation. labs tonight. 05/28: no change in behavior. lithium 0.66, BUN stable. continue current mgmt. 05/29: irritable. continue current mgmt. 05/30: no longer in single room. still not engaging, sleeping days. continue current mgmt. 05/31:laying in bed. declined to meet with T/W. pt stated, I want to sleep. I didn't sleep enough . Pt encouraged to reach out to staff if he needs anything. Continue current tx plan. 06/01: Similar to yesterday. laying in bed. Irritable. declined to meet with T/W and pulled bed sheets over head. pt stated, I don't want to talk. I want to sleep . difficult to engage. Continue current tx plan. 06/02: Similar to yesterday. laying in bed. Irritable. declined to meet with T/W. Observed getting drink from kitchen; T/W approached pt and asked if they could speak. patient declined to acknowledge T/W and walked past. Continue current tx plan. 06/03: no change in behavior. continue tx plan. 06/04/25: Passive engaged in the assessment, in bed mostly sleeping this morning which could be interfere with his nighttime. Cover body under the blanket Slept for 4-5 hours last night. Was medication compliant, attended no groups, isolative to self in room. No SI/SIB/HI/AVH expressed. 06/05: continue tx plan. 06/06: reports feeling fine ; continues guarded. difficult to engage. declining to meet with T/W. continue tx plan. 06/07/25: Slept for 4 hours at night, but has been sleeping most of the day yesterday as well. Spent majority of the shift in bed, was medication compliant. Passive engaged in the conversation. He said he will try to change the sleeping pattern so that he can be awake more during the daytime. Appear to be sedated in the morning. No safety behavior. 06/08/25: Slept for 3-4 hours last night, compliant with medications. Denies side effects, denies other safety concerns. Continued to encourage patient to up and down more than on the unit he spent most of the day sleeping. He is pleasant upon approach. No other behavior issues. Denied voices/hallucinations. Suicide thoughts or homicidal thoughts. 06/09: sleeping, minimally rousable. denies problems. continue current mgmt. 06/10: sleeping all day, up most of the night. minimally rousable. denies problems. continue current mgmt. per JAMAICA Arrington: Jean said when he leaves he can return to [facility] [place]. he was living with a lady there and can go back. He plans to get a job to pay off his debt. He said he owes money because they sent him back here due to losing his passport and he owes them money for the temporary emergency passport and the flight back to the . so his main focus is to get a job. he said he will try things here first and if it doesn't work out he plans to return to [place]. 06/11/25: Passively engaged in conversation while in bed sleeping/resting. Able to answer question appropriately, but seems to be minimized. Denies SI/SIB/HI/AVH. He slept 5 hours last night, spent most of the day in bed sleeping. Attempted to no groups, observed out to the afternoon in the subramanian near the nurse station. No change in presentation. Encourage groups,up and engaged in groups. 06/12: not engaging. no complaints or questions re med changes. cross-taper zyprexa in favor of invega, give MONTERO invega. tonight, decrease zyprexa to 15 mg and start invega 3 mg. otherwise continue current mgmt. 06/13: continues avoidant and disengaged. denies side effects from med change last night. informed cross-titration will advance tonight. decrease zyprexa to 10 mg tonight, increase paliperidone to 6 mg. plan to continue by 5 mg zyprexa and 3 mg paliperidone increments every several days as tolerated until zyprexa DCed and paliperidone at 12 mg QHS. once it is established pt is tolerating PO Paliperidone, invega sustenna to be administered. 06/14: Continue current regimen and plans 06/15: Continue current plans and regimen 06/16: irritable re neuroleptic change. denies side effects or problems with it, however. minimally engageable. increase invega to 9 QHS and decrfease zyprexa to 5 QHS. 06/17/25: Continued to be irritable regarding medication change/titration. However engaged in conversation, hyper verbal, paranoid, reports medication slow his thoughts down and he does not not like it. Poor insight and poor judgment. He thinks he only need lithium, not other medications. Remind patient to continue doing the sleep pattern changing. However his in bed mostly this morning. Slept for 4-5 hours last night. 06/18/25: Slept for 5 hours last night as he continues sleeping during daytime. Compliant with meds, did not c/o side effects.Passingly engaging in assessment. Denies safety concerns. Tolerate the tritation well. Will increase Inveag up to max of 12 tomorrow and Discontinue Olanzepine at HS. Continue to encourage up and out on day so he can sleep better at HS. 06/19/25: Patient slept for 5.5 hours last night, was medication compliant, mostly in his room yesterday but seen more often in the evening. Patient is awake in his room, listen to music, his morning tray was taken away and clean the area. He is very pleasant to talk to today, reports he feels good, denies side effects from medications, denies any safety concerns. Denies feeling sedation, denies anxiety/depression. He is receptive with the plan of medication over the weekends and next week, happy to hear about the medication plan. He also agree with the MONTERO Invega Sustenna on Monday. Encourage him to go out and attended to groups, he said that he will. Reported that he was out for groups a couple of times last week. Discontinue Haldol p.r.n.. Discontinue scheduled Zyprexa 5 mg at bedtime. Only on 10 Zyprexa at g IM daily p.r.n. as backup orders if refused Invega. Invega 12 mg at bedtime. Plan to monitor over the weekends and will give long-acting injection on Monday if tolerate with the p.o. well Reduce Seroquel 200 mg p.r.n. at bedtime to 100 p.r.n. at bedtime for insomnia. Seroquel 50 mg b.i.d. p.r.n. for agitation. Discontinue Motrin. Patient on lithium. Labs were for MondayJune 20: CMP, TSH with free T4. 06/20/25: In bed most of the day, was compliant with medication, however refused labs work. Re- scheduled for Monday. Continue with Invega 12 mg at bedtime. We will reassess and offer long-acting injection on Monday. Continue to encourage patient to get up and go to some groups. No safety concerns expressed. Minimal peer and staff interaction. 06/21: no change in presentation. start MONTERO monday. no s/e from invega. otherwise continue current mgmt. 06/22: stable. continue current mgmt. 06/23/25: More awake and alert. Review with patient regarding policy for his phone use BID 30min each time, patient is educated on compliant with policy. He asks for more 5-10 min extra headphone use at night on the weekends after 2300. Once again, redirected for unit rules. He agrees with MONTERO which is scheduled today. Discontinue Invega PO Invega Sustenna 234mg IM once. Will monitor for possible side effects and sedation. Will offer 156mg after 1 week. If mentaly stable with 156mg, will maintain at this dose, if not will offer 234mg Monthly. 06/24/25: Slept for 5 hours last night, but also went to bed around 7 tonight p.m. last night per his report. He also attended to groups in the afternoon yesterday. Compliant with medications. No side effects from Invega Sustenna. He is engaged in full conversation today why he is in bed, denies safety concerns. Observe he is on the unit, social with peers and staff in longer period of time. Appeared to be happy. He plans to take shower today. Reported that he was up early but he does not feel hungry in the morning. He is making progress, not too sedated during daytime since switching his medication. Appears to do well so far with Invega Sustenna. 06/25/25: Patient slept for 4 hours last night, however he reported was napping in the afternoon for couple hours which affect his sleeping pattern at night. Educate patient to not napping late in the evening. He is receptive. Compliant with medications, no side effects. He reports his did not shower yesterday but he will today. He is awake in his room not sleeping, engage in full conversation, no delusional or paranoid statements make. He is visible at times. Continued to improve in mood, engaging in other activities on the unit. Denies other safety concerns. Denies hallucinations. No irritability mood, not sedated during day time compared to when he was taking olanzapine. We will schedule Invega Sustenna 156 next Monday. Work with social worker clinical to see where he will return to. He probably needs VNA to manage medication. 06/26/25: He slept for 5 hours, compliant with medications. Denies side effects. He self-reported that he went to bed last night and was able to fall asleep by 01:00 and able to stay asleep whole night. Denies safety concerns. I spoke with him in length today regarding aftercare. He thinks he will go to the hospital in [place] to ask them regarding his heart condition. He thinks people was lying to get him to the hospital as he does not have mental health illnesses. He believes that he has been exactly the same he was seen he was a little, and at he able to remember everything in the past. He also reports that he used to use [facility] in [place]. At he does not want [facility] application. I explained to him that in order to be a candidate patient have to be a safe that he has mental health issues, so people can submit the application, and from the [facility] worker will contact him to do assessment if he qualify for any services that they can provide. Patient is receptive application, social worker clinical was notified. Patient also would like to have services with [facility] in [place]. He showered yesterday morning, did not go to groups yesterday, but he will go to some groups today per his plan for the day, more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
[2025-07-12 19:51] VITALS: BP 141/78; PULSE 95; RESP 16; TEMP 36.9; O2SAT 97
--- NOTE | 2025-07-13 11:36 | HO.PSYCHPN ---
Subjective Subjective Date of Service: 07/13/25 Reason For Visit: psychotic disorder Interim History: lying in bed. Minimal enaggament- no complaints and feeling good. Pleasant with pattern chart writer. No overt psychosis noted. No management issues as per nursing. Sleeping well. Awaiting [facility] respite bed Medication Compliance: Yes Side effects from medications: No Attending Groups: No Review of Systems Acute medical concerns: No Review of Systems Review of Systems nothing of note Mental Status Exam Mental Status Exam Narrative: IN bed. fair eye contact with exopthalmos. No PMA/PMR. cooperative. speech nml rate and amount and loudness. thoughts linear and logical. affect constricted, normo-intense. mood good . Denies safety concerns. No SI/SIB/HI/AVH expressed. Diagnostics Vital Signs (24Hr): Vital Signs - 24 hr 07/12/25 19:51 Temperature 98.5 F Pulse Rate 95 Respiratory Rate 16 Blood Pressure 141/78 H Pulse Oximetry 97 Oxygen Delivery Method Room Air BMI result Body Mass Index 23.2 Labs 06/25/25 08:02 06/20/25 20:35 Medications Medications Current Medications Acetaminophen (Acetaminophen 325 Mg Tablet) 650 mg PO Q4H PRN PRN Reason: Pain, Mild (Pain Scale 1-3) Last Admin: 07/06/25 22:53 Dose: 650 mg Al Hydroxide/Mg Hydroxide (Magnesium Hydrox/Alum Hydrox 30 Ml Oral.Susp) 30 ml PO Q6H PRN PRN Reason: Heart burn Benzocaine (Benzocaine 20 % Oral Gel 14 Gm Tube) 1 appl MUCOUS MEM QID PRN; Protocol PRN Reason: Mouth Sore Pain Last Admin: 04/26/25 18:33 Dose: 1 appl Diazepam (Diazepam 10 Mg/2 Ml Cartridge) 10 mg IM BID PRN PRN Reason: refusal of lithium, per [place]rett Last Admin: 04/11/25 09:56 Dose: 10 mg Glycopyrrolate (Glycopyrrolate 1 Mg Tablet) 0.5 mg PO BID [facility] Last Admin: 07/13/25 08:19 Dose: 0.5 mg [place] Carbonate ([place] Carbonate Er 300 Mg Tablet.Er) 600 mg PO DAILY [facility] Last Admin: 07/13/25 08:19 Dose: 600 mg [place] Carbonate ([place] Carbonate Er 450 Mg Tablet.Er) 900 mg PO DAILY@2300 [facility] Last Admin: 07/12/25 23:45 Dose: 900 mg Magnesium Hydroxide (Milk Of Magnesia 30 Ml Oral.Susp) 30 ml PO DAILY PRN PRN Reason: Constipation Methimazole (Methimazole 10 Mg Tablet) 10 mg PO DAILY [facility] Last Admin: 07/13/25 08:19 Dose: 10 mg Nicotine (Nicotine 21 Mg Patch.Td24) 21 mg TRANSDERMA DAILY PRN PRN Reason: nicotine cravings Last Admin: 04/12/25 17:06 Dose: 21 mg Nicotine Polacrilex (Nicotine Polacrilex Lozenge 2 Mg Lozenge) 2 mg BUCCAL Q1H PRN PRN Reason: Nicotine Cravings Last Admin: 04/30/25 08:49 Dose: 2 mg Patient Own Medication Excedrin 250/250/65mg 2 each PO Q8H PRN PRN Reason: Migraine Headache Last Admin: 07/07/25 06:31 Dose: 2 each Olanzapine (Olanzapine 10 Mg Vial) 10 mg IM DAILY PRN PRN Reason: if refuse Invega PO Paliperidone Palmitate (Paliperidone Palmitate 234 Mg/1.5 Ml Syringe) 234 mg IM Q30D [facility]STAL Pseudoephedrine HCl (Pseudoephedrine Hcl 30 Mg Tablet) 30 mg PO Q6H PRN PRN Reason: Congestion Last Admin: 07/03/25 21:18 Dose: 30 mg Quetiapine Fumarate (Quetiapine Fumarate 100 Mg Tablet) 100 mg PO BEDTIME PRN PRN Reason: insomnia Quetiapine Fumarate (Quetiapine Fumarate 50 Mg Tablet) 50 mg PO BID PRN PRN Reason: agitation Sodium Chloride (Sodium Chloride 0.65 % Nasal 44 Ml Sprbtl) 1 spray NOSTRIL-B Q4H PRN PRN Reason: Congestion Last Admin: 07/03/25 23:03 Dose: 1 spray Allergies Allergies Allergy/AdvReac Type Severity Reaction Status Date / Time No Known Allergies Allergy Verified 03/26/25 14:24 Assessment & Plan Assessment & Plan (1) Graves disease: Status: Acute Code(s): E05.00 - Thyrotoxicosis with diffuse goiter without thyrotoxic crisis or storm Assessment and Plan: Hyperthyroidism/Graves disease. He will need follow up with endocrinology as an outpatient He will also need a primary care doctor referral as an outpatient Discussed with Dr. Bejarano, patient will need free T4 weekly Decrease Methimazole to 15 mgs daily for three days and then 10 mgs daily- discussed with patient he is aware of plan and rationale. TSH and free T4 every 4 weeks. No need to draw thyroid stimulation immunology or TSH receptor AB (2) Dental abscess: Status: Acute Code(s): K04.7 - Periapical abscess without sinus Assessment and Plan: Carious tooth/dental infection Recently treated with PEN VK 500 mg q.6 hours for 7 days Patient will need follow up with dentist on discharge for tooth extraction Motrin helping pain. (3) Becca: Status: Acute Code(s): F30.9 - Manic episode, unspecified Plan 03/26: offer lithium and seroquel for becca. continue methimazole and beta joanne for [place] [facility] [place] trend TFTs. 12b. 03/27: taking methimazole and beta joanne. refused HS meds last night, took morning meds today. continue to encourage medication compliance. 03/28: intermittently taking meds. wants all meds in morning. pressured, manic, paranoid delusions. encouraged to take lithium but states he will not. all meds ordered for morning. 03/29: Keeping to self. no groups. observed laying in bed listening to music on unit headphones. pleasant. Pt reports feeling good today and sleeping well. declined lithium and zyprexa. denies SI/HI/VH/AH. continue current tx plan. 03/30:Irritable. upset he was unable to use his personal hygiene products. Per nursing, pt threatened staff and squeezed tooth paste throughout unit hallway to show his frustration. Pt was able to calm down after speaking with security. declined medications. 03/31: Keeping to self. laying in bed listening to music. refused medications. calm today. Patient reports feeling great ; pt stated, nothing is wrong with me. I'm waiting so I can leave tomorrow. I'm hoping for the best . denies SI/HI/VH/AH. per nursing, slept 6 hours. Continue current tx plan. 04/01: variably calm on the unit versus highly agitated. paranoid delusions, irritability, lability continue. seems to believe MD has met him prior to the present hospitalization and is stalking him. believes brother behind conspiracy to have him psychiatrically hospitalized. has been refusing all medications, including for hyperthyroidism. informed he would be filed on. filed. continue to offer medications. 04/02: continues agitated, belittling, verbally aggressive, refusing all medications including for hyperthyroidism. continue to offer medication. 04/03: paranoid there is a conspiracy to hospitalize him. threatening to stick a stick in staff once he is released by district associate judge. insists his [facility]. asserts there is NOTHING wrong with him. continue to offer medication. 04/04: irritable, rejecting. verbally abuses MD and sends him away: see you on monday [in court]. continue to offer medication for thyroid condition and mental illness. 04/05 continue tx. suspicious and guarded, accusatory, verbal threats to hurt staff and peers 04/06 intrusive, posturing towards staff and peer who he thinks is not real and is an impostor, continues to make verbal threats to harm him but thinks that because he is not real he may not experience any pain. 04/07: threatening statements and behaviors of yesterday noted. pt sleeping this morning, dismissive of MD. 04/08: asleep days. committed and meds ordered by court. 04/09: on being informed of court order and MD insisting on meds, pt escalated to hurling food item in container against wall at high speed and saying he wished he could do the same to MD's head. pt eventually took court ordered meds PO. sensodyne and excedrin not available in pharmacy (pt requesting them). 04/10: continue tx. Pt accepting medication today. 04/11: Keeping to self. Lying in bed most of morning. Declined to meet with T/W. Pt stated, I'm fine. I don't need anything . Listening to headphones in room. Declined court ordered PO medications; received IM medications. Refused vital signs.continue tx plan. 04/12: got IMs yesterday, took PO this morning. sleepy, no concerns or complaints. 04/13: taking PO meds again. slept 7 hours. sleepy again mid morning refusing interview. continue current mgmt. 04/14: sleeping, rousable. denies being sedated or tired, says he's just bored. no questions or complaints. informed of need to check labs. check lithium level and thyroid labs tonight. 04/15: refusing labs. delusional re his brother harming him. verbally abusive toward MD. spat in floor. happy with improvement in proptosis. 04/16: Lying in bed. Calm. cooperative. guarded. Pt reports feeling tired this morning d/t poor sleep last night. Pt stated, I don't need anything. I didn't sleep well so I'm trying to catch up . denies any issues at this time. denies SI/HI/VH/AH. Continue current tx plan. 04/17: more calm today, less explosive. continue current mgmt. 04/18: continues more calm. tolerating moments of frustration without verbally attacking MD. slept only 2 hours overnight, however. continue current mgmt. 04/19 continues to push boundaries and limits with staff mike around cell phone- 04/20 - aggressive with staff and unpredictable- threw water pitcher at staff behind desk/-when seen by provider passive in bed-denying all compaints/sys- no insight 04/21: appears as per last week. more difficult behaviors around cell phone use, did throw pitcher of water at RN monday over phone use and was restrained. continue current mgmt. 04/22: continues to have conflict around cell phone use. consolidate zyprexa at HS to decrease daytime sedation. 1:1 allegra shift until peer he is accusing of not being a real patient and appears to be targeting discharges tomorrow. 04/23: lithium 0.6 on 600 BID. sleeping better, remains delusional (telling SW who is marginally younger than him that she could be his daughter). just changed zyprexa dosing as of last night. continue current regimen and observe for continued stabilization. T/C slight increase in lithium dosing. 04/24: Laying in bed. guarded. calm. did not want to get out of bed to meet with T/W. Pt reports feeling great today but declined to go into detail. listening to music on unit headphones. Pt stated, I'm fine. I don't need anything . denies any issues at this time. denies SI/HI/VH/AH. Continue current tx plan. 04/25: Laying in bed. keeping to self. calm. paranoid. Discussed incident that occurred with staff last evening. Pt stated, the counselor made up a lie yesterday. I said she looks like my ex-girlfriend. I know they are related. They want to make up a lie to irritate me. They are trying to talk to me so they can use recording devices and make me look some kind of way . listening to music on unit headphones. denies SI/HI/VH/AH. Continue current tx plan. 04/26: Continue current regimen and plans. Increase Zyprexa 20 mg q.h.s. fresh air break withheld 04/27: Continue current regimen and plans 04/28: somewhat less irritable and agitated than last week. however, over the weekend was claiming he was the father of a footballer on TV and also that a staff member is a twin of his ex-GF (and he pushed staff member). TFTs improving. continue current mgmt. 04/29: no change in presentation. continue current mgmt. 04/30: no irritable edge today. calm, pleasant. engaging in small talk. reality testing not pressed. continue current mgmt for now. 05/01: no change in presentation. continue current mgmt. 05/02: BPs coming down, DC beta joanne as pt has been refusing anyway. remains not antagonistic toward MD. using phone appropriately. continue current mgmt otherwise. 05/03 continue 05/04: remains delusional, irritable/labile when delusional system confronted. declines to sign [facility]. continue current mgmt. 05/06: declining to meet with MD, but does meet with medical student. remains upset about yesterday's confrontation re his delusional system. 05/07: Active on unit. keeping to self. pacing unit hallway while listening to unit headphones. medication compliant. patient reports feeling good ; pt stated, I'm just waiting to leave here. I want to return to my life and do things like go grocery shopping . denies SI/HI/VH/AH. Continue current tx plan. 05/08: stable presentation, delusions not being brought to the surface daily. remains affectively improved from admission. continue current mgmt. 05/09: calm, pleasant. no questions or complaints. continue current mgmt. 05/10: no change in presentation. due to lack of improvement in dental infection Sx, DC PCN and start augmentin. 05/11: no change in presentation. continue current mgmt. 05/12: as for yesterday. dental pain improving a bit. 05/13: expressed to medical student that his brother poisoned him, causing his thyroid disease. no change in presentation. continue current mgmt. 05/14: Pacing unit hallway. keeping to self. patient reports feeling good today; denies any issues at this time. denies SI/HI/VH/AH. per nursing, slept 5 hours. Continue current tx plan. 05/15: slept 6 hours. otherwise isolative, difficult to engage. continue current mgmt. 05/16: slept 7 hours. as for yesterday otherwise. 05/17/25: Slept well, no issue with appetite, skinny and pretty tall. Compliant with medication. No side effects Calm and pleasant upon approach. Some what paranoid. Tangential, however denies other safety concerns. Questions if he is discharging soon. He is on antibiotic for 7 days for mouth pain/tooth pain. We will finish the 7 course up in antibiotic after tonight dose. Then discontinue. 05/18/25: Slept for 5 hours plus hours this morning. In bed most of the shift, no behavior issues. Denies other safety concerns. 05/19: in bed days, up eves. no change in presentation. continue current mgmt. 05/20: no change in presentation. check labs. 05/21: lithium low, TFTs mixed and not all back. increase lithium from 600 BID to 600/900. trend BUN/Cr, with slight elevation. otherwise continue current mgmt. 05/22: no change in presentation. continue current mgmt. 05/23: does not deny someone stole his sperm and impregnated his landlord's child with it. irritable. c/o dental pain, antibx restarted. otherwise continue current mgmt. 05/14: no change in mgt 05/25: more isolative today; no change in mgt 05/26: decreases in methimazole noted. continue psych regimen as is. pt refused to interact with MD today. 05/27: i'm sleeping. no change in presentation. labs tonight. 05/28: no change in behavior. lithium 0.66, BUN stable. continue current mgmt. 05/29: irritable. continue current mgmt. 05/30: no longer in single room. still not engaging, sleeping days. continue current mgmt. 05/31:laying in bed. declined to meet with T/W. pt stated, I want to sleep. I didn't sleep enough . Pt encouraged to reach out to staff if he needs anything. Continue current tx plan. 06/01: Similar to yesterday. laying in bed. Irritable. declined to meet with T/W and pulled bed sheets over head. pt stated, I don't want to talk. I want to sleep . difficult to engage. Continue current tx plan. 06/02: Similar to yesterday. laying in bed. Irritable. declined to meet with T/W. Observed getting drink from kitchen; T/W approached pt and asked if they could speak. patient declined to acknowledge T/W and walked past. Continue current tx plan. 06/03: no change in behavior. continue tx plan. 06/04/25: Passive engaged in the assessment, in bed mostly sleeping this morning which could be interfere with his nighttime. Cover body under the blanket Slept for 4-5 hours last night. Was medication compliant, attended no groups, isolative to self in room. No SI/SIB/HI/AVH expressed. 06/05: continue tx plan. 06/06: reports feeling fine ; continues guarded. difficult to engage. declining to meet with T/W. continue tx plan. 06/07/25: Slept for 4 hours at night, but has been sleeping most of the day yesterday as well. Spent majority of the shift in bed, was medication compliant. Passive engaged in the conversation. He said he will try to change the sleeping pattern so that he can be awake more during the daytime. Appear to be sedated in the morning. No safety behavior. 06/08/25: Slept for 3-4 hours last night, compliant with medications. Denies side effects, denies other safety concerns. Continued to encourage patient to up and down more than on the unit he spent most of the day sleeping. He is pleasant upon approach. No other behavior issues. Denied voices/hallucinations. Suicide thoughts or homicidal thoughts. 06/09: sleeping, minimally rousable. denies problems. continue current mgmt. 06/10: sleeping all day, up most of the night. minimally rousable. denies problems. continue current mgmt. per JAMAICA Arrington: Jean said when he leaves he can return to [facility]. he was living with a lady there and can go back. He plans to get a job to pay off his debt. He said he owes money because they sent him back here due to losing his passport and he owes them money for the temporary emergency passport and the flight back to the . so his main focus is to get a job. he said he will try things here first and if it doesn't work out he plans to return to [place]. 06/11/25: Passively engaged in conversation while in bed sleeping/resting. Able to answer question appropriately, but seems to be minimized. Denies SI/SIB/HI/AVH. He slept 5 hours last night, spent most of the day in bed sleeping. Attempted to no groups, observed out to the afternoon in the subramanian near the nurse station. No change in presentation. Encourage groups,up and engaged in groups. 06/12: not engaging. no complaints or questions re med changes. cross-taper zyprexa in favor of invega, give MONTERO invega. tonight, decrease zyprexa to 15 mg and start invega 3 mg. otherwise continue current mgmt. 06/13: continues avoidant and disengaged. denies side effects from med change last night. informed cross-titration will advance tonight. decrease zyprexa to 10 mg tonight, increase paliperidone to 6 mg. plan to continue by 5 mg zyprexa and 3 mg paliperidone increments every several days as tolerated until zyprexa DCed and paliperidone at 12 mg QHS. once it is established pt is tolerating PO Paliperidone, invega sustenna to be administered. 06/14: Continue current regimen and plans 06/15: Continue current plans and regimen 06/16: irritable re neuroleptic change. denies side effects or problems with it, however. minimally engageable. increase invega to 9 QHS and decrfease zyprexa to 5 QHS. 06/17/25: Continued to be irritable regarding medication change/titration. However engaged in conversation, hyper verbal, paranoid, reports medication slow his thoughts down and he does not not like it. Poor insight and poor judgment. He thinks he only need lithium, not other medications. Remind patient to continue doing the sleep pattern changing. However his in bed mostly this morning. Slept for 4-5 hours last night. 06/18/25: Slept for 5 hours last night as he continues sleeping during daytime. Compliant with meds, did not c/o side effects.Passingly engaging in assessment. Denies safety concerns. Tolerate the tritation well. Will increase Inveag up to max of 12 tomorrow and Discontinue Olanzepine at HS. Continue to encourage up and out on day so he can sleep better at HS. 06/19/25: Patient slept for 5.5 hours last night, was medication compliant, mostly in his room yesterday but seen more often in the evening. Patient is awake in his room, listen to music, his morning tray was taken away and clean the area. He is very pleasant to talk to today, reports he feels good, denies side effects from medications, denies any safety concerns. Denies feeling sedation, denies anxiety/depression. He is receptive with the plan of medication over the weekends and next week, happy to hear about the medication plan. He also agree with the MONTERO Invega Sustenna on Monday. Encourage him to go out and attended to groups, he said that he will. Reported that he was out for groups a couple of times last week. Discontinue Haldol p.r.n.. Discontinue scheduled Zyprexa 5 mg at bedtime. Only on 10 Zyprexa at g IM daily p.r.n. as backup orders if refused Invega. Invega 12 mg at bedtime. Plan to monitor over the weekends and will give long-acting injection on Monday if tolerate with the p.o. well Reduce Seroquel 200 mg p.r.n. at bedtime to 100 p.r.n. at bedtime for insomnia. Seroquel 50 mg b.i.d. p.r.n. for agitation. Discontinue Motrin. Patient on lithium. Labs were for MondayJune 20: CMP, TSH with free T4. 06/20/25: In bed most of the day, was compliant with medication, however refused labs work. Re- scheduled for Monday. Continue with Invega 12 mg at bedtime. We will reassess and offer long-acting injection on Monday. Continue to encourage patient to get up and go to some groups. No safety concerns expressed. Minimal peer and staff interaction. 06/21: no change in presentation. start MONTERO monday. no s/e from invega. otherwise continue current mgmt. 06/22: stable. continue current mgmt. 06/23/25: More awake and alert. Review with patient regarding policy for his phone use BID 30min each time, patient is educated on compliant with policy. He asks for more 5-10 min extra headphone use at night on the weekends after 2300. Once again, redirected for unit rules. He agrees with MONTERO which is scheduled today. Discontinue Invega PO Invega Sustenna 234mg IM once. Will monitor for possible side effects and sedation. Will offer 156mg after 1 week. If mentaly stable with 156mg, will maintain at this dose, if not will offer 234mg Monthly. 06/24/25: Slept for 5 hours last night, but also went to bed around 7 tonight p.m. last night per his report. He also attended to groups in the afternoon yesterday. Compliant with medications. No side effects from Invega Sustenna. He is engaged in full conversation today why he is in bed, denies safety concerns. Observe he is on the unit, social with peers and staff in longer period of time. Appeared to be happy. He plans to take shower today. Reported that he was up early but he does not feel hungry in the morning. He is making progress, not too sedated during daytime since switching his medication. Appears to do well so far with Invega Sustenna. 06/25/25: Patient slept for 4 hours last night, however he reported was napping in the afternoon for couple hours which affect his sleeping pattern at night. Educate patient to not napping late in the evening. He is receptive. Compliant with medications, no side effects. He reports his did not shower yesterday but he will today. He is awake in his room not sleeping, engage in full conversation, no delusional or paranoid statements make. He is visible at times. Continued to improve in mood, engaging in other activities on the unit. Denies other safety concerns. Denies hallucinations. No irritability mood, not sedated during day time compared to when he was taking olanzapine. We will schedule Invega Sustenna 156 next Monday. Work with social media sr strategy manager to see where he will return to. He probably needs [facility] to manage medication. 06/26/25: He slept for 5 hours, compliant with medications. Denies side effects. He self-reported that he went to bed last night and was able to fall asleep by 01:00 and able to stay asleep whole night. Denies safety concerns. I spoke with him in length today regarding aftercare. He thinks he will go to the hospital in [place] to ask them regarding his heart condition. He thinks people was lying to get him to the hospital as he does not have mental health illnesses. He believes that he has been exactly the same he was seen he was a little, and at he able to remember everything in the past. He also reports that he used to use [employer] in [place]. At he does not want [facility] application. I explained to him that in order to be a candidate patient have to be a safe that he has mental health issues, so people can submit the application, and from the [facility] worker will contact him to do assessment if he qualify for any services that they can provide. Patient is receptive application, social media sr strategy manager was notified. Patient also would like to have services with [facility] in [place]. He showered yesterday morning, did not go to groups yesterday, but he will go to some groups today per his plan for the day, more awake, engaged in conversation, no irritability. However, continued to be poor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
[2025-07-13 19:46] VITALS: BP 135/85; PULSE 95; RESP 16; TEMP 37.1; O2SAT 99
--- NOTE | 2025-07-14 15:36 | P.PNPSI_ITS ---
Subjective Subjective Date of Service: 07/14/25 Reason For Visit: psychotic disorder Interim History: resting in bed, awake or easily rousable. no complaints or requests. calm, patient, not reactive on being told dental care will not be forthcoming. remains considering dispo options, informed [facility] bed may take a month, will talk to JAMAICA Arrington about it. per staff, no change in presentation. slept 7 hours. put mattress on the floor, which he has never done before. asking for increase in glycopyrrolate for drooling. Mental Status Exam Mental Status Exam Narrative: IN bed. fair eye contact with exopthalmos. No PMA/PMR. cooperative. speech nml rate and amount and loudness. thoughts linear and logical. affect constricted, normo-intense. mood good . Denies safety concerns. No SI/SIB/HI/AVH expressed. Diagnostics Vital Signs (24Hr): Vital Signs - 24 hr 07/13/25 19:46 Temperature 98.8 F Pulse Rate 95 Respiratory Rate 16 Blood Pressure 135/85 Pulse Oximetry 99 Oxygen Delivery Method Room Air BMI result Body Mass Index 23.2 Labs 06/25/25 08:02 06/20/25 20:35 Medications Medications Current Medications Acetaminophen (Acetaminophen 325 Mg Tablet) 650 mg PO Q4H PRN PRN Reason: Pain, Mild (Pain Scale 1-3) Last Admin: 07/06/25 22:53 Dose: 650 mg Al Hydroxide/Mg Hydroxide (Magnesium Hydrox/Alum Hydrox 30 Ml Oral.Susp) 30 ml PO Q6H PRN PRN Reason: Heart burn Benzocaine (Benzocaine 20 % Oral Gel 14 Gm Tube) 1 appl MUCOUS MEM QID PRN; Protocol PRN Reason: Mouth Sore Pain Last Admin: 04/26/25 18:33 Dose: 1 appl Diazepam (Diazepam 10 Mg/2 Ml Cartridge) 10 mg IM BID PRN PRN Reason: refusal of lithium, per [place]rett Last Admin: 04/11/25 09:56 Dose: 10 mg Glycopyrrolate (Glycopyrrolate 1 Mg Tablet) 1 mg PO BID [facility] Tool Carbonate (Tool Carbonate Er 300 Mg Tablet.Er) 600 mg PO DAILY [facility] Last Admin: 07/14/25 08:33 Dose: 600 mg Tool Carbonate (Tool Carbonate Er 450 Mg Tablet.Er) 900 mg PO DAILY@2300 [facility] Last Admin: 07/13/25 22:55 Dose: 900 mg Magnesium Hydroxide (Milk Of Magnesia 30 Ml Oral.Susp) 30 ml PO DAILY PRN PRN Reason: Constipation Methimazole (Methimazole 10 Mg Tablet) 10 mg PO DAILY K[facility]STAL Last Admin: 07/14/25 08:33 Dose: 10 mg Nicotine (Nicotine 21 Mg Patch.Td24) 21 mg TRANSDERMA DAILY PRN PRN Reason: nicotine cravings Last Admin: 04/12/25 17:06 Dose: 21 mg Nicotine Polacrilex (Nicotine Polacrilex Lozenge 2 Mg Lozenge) 2 mg BUCCAL Q1H PRN PRN Reason: Nicotine Cravings Last Admin: 04/30/25 08:49 Dose: 2 mg Patient Own Medication Excedrin 250/250/65mg 2 each PO Q8H PRN PRN Reason: Migraine Headache Last Admin: 07/07/25 06:31 Dose: 2 each Olanzapine (Olanzapine 10 Mg Vial) 10 mg IM DAILY PRN PRN Reason: if refuse Invega PO Paliperidone Palmitate (Paliperidone Palmitate 234 Mg/1.5 Ml Syringe) 234 mg IM Q30D KRISTAL Pseudoephedrine HCl (Pseudoephedrine Hcl 30 Mg Tablet) 30 mg PO Q6H PRN PRN Reason: Congestion Last Admin: 07/03/25 21:18 Dose: 30 mg Quetiapine Fumarate (Quetiapine Fumarate 100 Mg Tablet) 100 mg PO BEDTIME PRN PRN Reason: insomnia Quetiapine Fumarate (Quetiapine Fumarate 50 Mg Tablet) 50 mg PO BID PRN PRN Reason: agitation Sodium Chloride (Sodium Chloride 0.65 % Nasal 44 Ml Sprbtl) 1 spray NOSTRIL-B Q4H PRN PRN Reason: Congestion Last Admin: 07/03/25 23:03 Dose: 1 spray Allergies Allergies Allergy/AdvReac Type Severity Reaction Status Date / Time No Known Allergies Allergy Verified 03/26/25 14:24 Assessment & Plan Assessment & Plan (1) Graves disease: Status: Acute Code(s): E05.00 - Thyrotoxicosis with diffuse goiter without thyrotoxic crisis or storm Assessment and Plan: Hyperthyroidism/Graves disease. He will need follow up with endocrinology as an outpatient He will also need a primary care doctor referral as an outpatient Discussed with Dr. Bejarano, patient will need free T4 weekly Decrease Methimazole to 15 mgs daily for three days and then 10 mgs daily- discussed with patient he is aware of plan and rationale. TSH and free T4 every 4 weeks. No need to draw thyroid stimulation immunology or TSH receptor AB (2) Dental abscess: Status: Acute Code(s): K04.7 - Periapical abscess without sinus Assessment and Plan: Carious tooth/dental infection Recently treated with PEN VK 500 mg q.6 hours for 7 days Patient will need follow up with dentist on discharge for tooth extraction Motrin helping pain. (3) Becca: Status: Acute Code(s): F30.9 - Manic episode, unspecified Plan 03/26: offer lithium and seroquel for becca. continue methimazole and beta joanne for hyperthy[place] [facility] [place] trend TFTs. 12b. 03/27: taking methimazole and beta joanne. refused HS meds last night, took morning meds today. continue to encourage medication compliance. 03/28: intermittently taking meds. wants all meds in morning. pressured, manic, paranoid delusions. encouraged to take lithium but states he will not. all meds ordered for morning. 03/29: Keeping to self. no groups. observed laying in bed listening to music on unit headphones. pleasant. Pt reports feeling good today and sleeping well. declined lithium and zyprexa. denies SI/HI/VH/AH. continue current tx plan. 03/30:Irritable. upset he was unable to use his personal hygiene products. Per nursing, pt threatened staff and squeezed tooth paste throughout unit hallway to show his frustration. Pt was able to calm down after speaking with security. declined medications. 03/31: Keeping to self. laying in bed listening to music. refused medications. calm today. Patient reports feeling great ; pt stated, nothing is wrong with me. I'm waiting so I can leave tomorrow. I'm hoping for the best . denies SI/HI/VH/AH. per nursing, slept 6 hours. Continue current tx plan. 04/01: variably calm on the unit versus highly agitated. paranoid delusions, irritability, lability continue. seems to believe MD has met him prior to the present hospitalization and is stalking him. believes brother behind conspiracy to have him psychiatrically hospitalized. has been refusing all medications, including for hyperthyroidism. informed he would be filed on. filed. continue to offer medications. 04/02: continues agitated, belittling, verbally aggressive, refusing all medications including for hyperthyroidism. continue to offer medication. 04/03: paranoid there is a conspiracy to hospitalize him. threatening to stick a stick in staff once he is released by assembler 1st shift. insists his hyperthyroidism was cured at [facility]. asserts there is NOTHING wrong with him. continue to offer medication. 04/04: irritable, rejecting. verbally abuses MD and sends him away: see you on monday [in court]. continue to offer medication for thyroid condition and mental illness. 04/05 continue tx. suspicious and guarded, accusatory, verbal threats to hurt staff and peers 04/06 intrusive, posturing towards staff and peer who he thinks is not real and is an impostor, continues to make verbal threats to harm him but thinks that because he is not real he may not experience any pain. 04/07: threatening statements and behaviors of yesterday noted. pt sleeping this morning, dismissive of MD. 04/08: asleep days. committed and meds ordered by court. 04/09: on being informed of court order and MD insisting on meds, pt escalated to hurling food item in container against wall at high speed and saying he wished he could do the same to MD's head. pt eventually took court ordered meds PO. sensodyne and excedrin not available in pharmacy (pt requesting them). 04/10: continue tx. Pt accepting medication today. 04/11: Keeping to self. Lying in bed most of morning. Declined to meet with T/W. Pt stated, I'm fine. I don't need anything . Listening to headphones in room. Declined court ordered PO medications; received IM medications. Refused vital signs.continue tx plan. 04/12: got IMs yesterday, took PO this morning. sleepy, no concerns or complaints. 04/13: taking PO meds again. slept 7 hours. sleepy again mid morning refusing interview. continue current mgmt. 04/14: sleeping, rousable. denies being sedated or tired, says he's just bored. no questions or complaints. informed of need to check labs. check lithium level and thyroid labs tonight. 04/15: refusing labs. delusional re his brother harming him. verbally abusive toward MD. spat in floor. happy with improvement in proptosis. 04/16: Lying in bed. Calm. cooperative. guarded. Pt reports feeling tired this morning d/t poor sleep last night. Pt stated, I don't need anything. I didn't sleep well so I'm trying to catch up . denies any issues at this time. denies SI/HI/VH/AH. Continue current tx plan. 04/17: more calm today, less explosive. continue current mgmt. 04/18: continues more calm. tolerating moments of frustration without verbally attacking MD. slept only 2 hours overnight, however. continue current mgmt. 04/19 continues to push boundaries and limits with staff mike around cell phone- 04/20 - aggressive with staff and unpredictable- threw water pitcher at staff behind desk/-when seen by provider passive in bed-denying all compaints/sys- no insight 04/21: appears as per last week. more difficult behaviors around cell phone use, did throw pitcher of water at RN monday over phone use and was restrained. continue current mgmt. 04/22: continues to have conflict around cell phone use. consolidate zyprexa at HS to decrease daytime sedation. 1:1 allegra shift until peer he is accusing of not being a real patient and appears to be targeting discharges tomorrow. 04/23: lithium 0.6 on 600 BID. sleeping better, remains delusional (telling SW who is marginally younger than him that she could be his daughter). just changed zyprexa dosing as of last night. continue current regimen and observe for continued stabilization. T/C slight increase in lithium dosing. 04/24: Laying in bed. guarded. calm. did not want to get out of bed to meet with T/W. Pt reports feeling great today but declined to go into detail. listening to music on unit headphones. Pt stated, I'm fine. I don't need anything . denies any issues at this time. denies SI/HI/VH/AH. Continue current tx plan. 06/20: Laying in bed. keeping to self. calm. paranoid. Discussed incident that occurred with staff last evening. Pt stated, the counselor made up a lie yesterday. I said she looks like my ex-girlfriend. I know they are related. They want to make up a lie to irritate me. They are trying to talk to me so they can use recording devices and make me look some kind of way . listening to music on unit headphones. denies SI/HI/VH/AH. Continue current tx plan. 04/26: Continue current regimen and plans. Increase Zyprexa 20 mg q.h.s. fresh air break withheld 04/27: Continue current regimen and plans 04/28: somewhat less irritable and agitated than last week. however, over the weekend was claiming he was the father of a footballer on TV and also that a staff member is a twin of his ex-GF (and he pushed staff member). TFTs improving. continue current mgmt. 04/29: no change in presentation. continue current mgmt. 04/30: no irritable edge today. calm, pleasant. engaging in small talk. reality testing not pressed. continue current mgmt for now. 05/01: no change in presentation. continue current mgmt. 05/02: BPs coming down, DC beta joanne as pt has been refusing anyway. remains not antagonistic toward MD. using phone appropriately. continue current mgmt otherwise. 05/03 continue 05/04: remains delusional, irritable/labile when delusional system confronted. declines to sign TOMMY for [facility] records. continue current mgmt. 05/06: declining to meet with MD, but does meet with medical student. remains upset about yesterday's confrontation re his delusional system. 05/07: Active on unit. keeping to self. pacing unit hallway while listening to unit headphones. medication compliant. patient reports feeling good ; pt stated, I'm just waiting to leave here. I want to return to my life and do things like go grocery shopping . denies SI/HI/VH/AH. Continue current tx plan. 05/08: stable presentation, delusions not being brought to the surface daily. remains affectively improved from admission. continue current mgmt. 05/09: calm, pleasant. no questions or complaints. continue current mgmt. 05/10: no change in presentation. due to lack of improvement in dental infection Sx, DC PCN and start augmentin. 05/11: no change in presentation. continue current mgmt. 05/12: as for yesterday. dental pain improving a bit. 05/13: expressed to medical student that his brother poisoned him, causing his thyroid disease. no change in presentation. continue current mgmt. 05/14: Pacing unit hallway. keeping to self. patient reports feeling good today; denies any issues at this time. denies SI/HI/VH/AH. per nursing, slept 5 hours. Continue current tx plan. 05/15: slept 6 hours. otherwise isolative, difficult to engage. continue current mgmt. 05/16: slept 7 hours. as for yesterday otherwise. 05/17/25: Slept well, no issue with appetite, skinny and pretty tall. Compliant with medication. No side effects Calm and pleasant upon approach. Some what paranoid. Tangential, however denies other safety concerns. Questions if he is discharging soon. He is on antibiotic for 7 days for mouth pain/tooth pain. We will finish the 7 course up in antibiotic after tonight dose. Then discontinue. 05/18/25: Slept for 5 hours plus hours this morning. In bed most of the shift, no behavior issues. Denies other safety concerns. 05/19: in bed days, up eves. no change in presentation. continue current mgmt. 05/20: no change in presentation. check labs. 05/21: lithium low, TFTs mixed and not all back. increase lithium from 600 BID to 600/900. trend BUN/Cr, with slight elevation. otherwise continue current mgmt. 05/22: no change in presentation. continue current mgmt. 05/23: does not deny someone stole his sperm and impregnated his landlord's child with it. irritable. c/o dental pain, antibx restarted. otherwise continue current mgmt. 05/14: no change in mgt 05/25: more isolative today; no change in mgt 05/26: decreases in methimazole noted. continue psych regimen as is. pt refused to interact with MD today. 05/27: i'm sleeping. no change in presentation. labs tonight. 7/23: no change in behavior. lithium 0.66, BUN stable. continue current mgmt. 05/29: irritable. continue current mgmt. 05/30: no longer in single room. still not engaging, sleeping days. continue current mgmt. 05/31:laying in bed. declined to meet with T/W. pt stated, I want to sleep. I didn't sleep enough . Pt encouraged to reach out to staff if he needs anything. Continue current tx plan. 06/01: Similar to yesterday. laying in bed. Irritable. declined to meet with T/W and pulled bed sheets over head. pt stated, I don't want to talk. I want to sleep . difficult to engage. Continue current tx plan. 06/02: Similar to yesterday. laying in bed. Irritable. declined to meet with T/W. Observed getting drink from kitchen; T/W approached pt and asked if they could speak. patient declined to acknowledge T/W and walked past. Continue current tx plan. 06/03: no change in behavior. continue tx plan. 06/04/25: Passive engaged in the assessment, in bed mostly sleeping this morning which could be interfere with his nighttime. Cover body under the blanket Slept for 4-5 hours last night. Was medication compliant, attended no groups, isolative to self in room. No SI/SIB/HI/AVH expressed. 06/05: continue tx plan. 06/06: reports feeling fine ; continues guarded. difficult to engage. declining to meet with T/W. continue tx plan. 06/07/25: Slept for 4 hours at night, but has been sleeping most of the day yesterday as well. Spent majority of the shift in bed, was medication compliant. Passive engaged in the conversation. He said he will try to change the sleeping pattern so that he can be awake more during the daytime. Appear to be sedated in the morning. No safety behavior. 06/08/25: Slept for 3-4 hours last night, compliant with medications. Denies side effects, denies other safety concerns. Continued to encourage patient to up and down more than on the unit he spent most of the day sleeping. He is pleasant upon approach. No other behavior issues. Denied voices/hallucinations. Suicide thoughts or homicidal thoughts. 06/09: sleeping, minimally rousable. denies problems. continue current mgmt. 06/10: sleeping all day, up most of the night. minimally rousable. denies problems. continue current mgmt. per JAMAICA Arrington: Jean said when he leaves he can return to [facility]. he was living with a lady there and can go back. He plans to get a job to pay off his debt. He said he owes money because they sent him back here due to losing his passport and he owes them money for the temporary emergency passport and the flight back to the . so his main focus is to get a job. he said he will try things here first and if it doesn't work out he plans to return to [place]. 06/11/25: Passively engaged in conversation while in bed sleeping/resting. Able to answer question appropriately, but seems to be minimized. Denies SI/SIB/HI/AVH. He slept 5 hours last night, spent most of the day in bed sleeping. Attempted to no groups, observed out to the afternoon in the subramanian near the nurse station. No change in presentation. Encourage groups,up and engaged in groups. 06/12: not engaging. no complaints or questions re med changes. cross-taper zyprexa in favor of invega, give MONTERO invega. tonight, decrease zyprexa to 15 mg and start invega 3 mg. otherwise continue current mgmt. 06/13: continues avoidant and disengaged. denies side effects from med change last night. informed cross-titration will advance tonight. decrease zyprexa to 10 mg tonight, increase paliperidone to 6 mg. plan to continue by 5 mg zyprexa and 3 mg paliperidone increments every several days as tolerated until zyprexa DCed and paliperidone at 12 mg QHS. once it is established pt is tolerating PO Paliperidone, invega sustenna to be administered. 06/14: Continue current regimen and plans 06/15: Continue current plans and regimen 06/16: irritable re neuroleptic change. denies side effects or problems with it, however. minimally engageable. increase invega to 9 QHS and decrfease zyprexa to 5 QHS. 06/17/25: Continued to be irritable regarding medication change/titration. However engaged in conversation, hyper verbal, paranoid, reports medication slow his thoughts down and he does not not like it. Poor insight and poor judgment. He thinks he only need lithium, not other medications. Remind patient to continue doing the sleep pattern changing. However his in bed mostly this morning. Slept for 4-5 hours last night. 06/18/25: Slept for 5 hours last night as he continues sleeping during daytime. Compliant with meds, did not c/o side effects.Passingly engaging in assessment. Denies safety concerns. Tolerate the tritation well. Will increase Inveag up to max of 12 tomorrow and Discontinue Olanzepine at HS. Continue to encourage up and out on day so he can sleep better at HS. 06/19/25: Patient slept for 5.5 hours last night, was medication compliant, mostly in his room yesterday but seen more often in the evening. Patient is awake in his room, listen to music, his morning tray was taken away and clean the area. He is very pleasant to talk to today, reports he feels good, denies side effects from medications, denies any safety concerns. Denies feeling sedation, denies anxiety/depression. He is receptive with the plan of medication over the weekends and next week, happy to hear about the medication plan. He also agree with the MONTERO Invega Sustenna on Monday. Encourage him to go out and attended to groups, he said that he will. Reported that he was out for groups a couple of times last week. Discontinue Haldol p.r.n.. Discontinue scheduled Zyprexa 5 mg at bedtime. Only on 10 Zyprexa at g IM daily p.r.n. as backup orders if refused Invega. Invega 12 mg at bedtime. Plan to monitor over the weekends and will give long- acting injection on Monday if tolerate with the p.o. well Reduce Seroquel 200 mg p.r.n. at bedtime to 100 p.r.n. at bedtime for insomnia. Seroquel 50 mg b.i.d. p.r.n. for agitation. Discontinue Motrin. Patient on lithium. Labs were for MondayJune 20: CMP, TSH with free T4. 06/20/25: In bed most of the day, was compliant with medication, however refused labs work. Re- scheduled for Monday. Continue with Invega 12 mg at bedtime. We will reassess and offer long-acting injection on Monday. Continue to encourage patient to get up and go to some groups. No safety concerns expressed. Minimal peer and staff interaction. 06/21: no change in presentation. start MONTERO monday. no s/e from invega. otherwise continue current mgmt. 06/22: stable. continue current mgmt. 06/23/25: More awake and alert. Review with patient regarding policy for his phone use BID 30min each time, patient is educated on compliant with policy. He asks for more 5-10 min extra headphone use at night on the weekends after 2300. Once again, redirected for unit rules. He agrees with MONTERO which is scheduled today. Discontinue Invega PO Invega Sustenna 234mg IM once. Will monitor for possible side effects and sedation. Will offer 156mg after 1 week. If mentaly stable with 156mg, will maintain at this dose, if not will offer 234mg Monthly. 06/24/25: Slept for 5 hours last night, but also went to bed around 7 tonight p.m. last night per his report. He also attended to groups in the afternoon yesterday. Compliant with medications. No side effects from Invega Sustenna. He is engaged in full conversation today why he is in bed, denies safety concerns. Observe he is on the unit, social with peers and staff in longer period of time. Appeared to be happy. He plans to take shower today. Reported that he was up early but he does not feel hungry in the morning. He is making progress, not too sedated during daytime since switching his medication. Appears to do well so far with Invega Sustenna. 06/25/25: Patient slept for 4 hours last night, however he reported was napping in the afternoon for couple hours which affect his sleeping pattern at night. Educate patient to not napping late in the evening. He is receptive. Compliant with medications, no side effects. He reports his did not shower yesterday but he will today. He is awake in his room not sleeping, engage in full conversation, no delusional or paranoid statements make. He is visible at times. Continued to improve in mood, engaging in other activities on the unit. Denies other safety concerns. Denies hallucinations. No irritability mood, not sedated during day time compared to when he was taking olanzapine. We will schedule Invega Sustenna 156 next Monday. Work with social media campaign manager to see where he will return to. He probably needs [facility] to manage medication. 06/26/25: He slept for 5 hours, compliant with medications. Denies side effects. He self-reported that he went to bed last night and was able to fall asleep by 01:00 and able to stay asleep whole night. Denies safety concerns. I spoke with him in length today regarding aftercare. He thinks he will go to the hospital in [place] to ask them regarding his heart condition. He thinks people was lying to get him to the hospital as he does not have mental health illnesses. He believes that he has been exactly the same he was seen he was a little, and at he able to remember everything in the past. He also reports that he used to use [facility] in [place]. At he does not want [facility] application. I explained to him that in order to be a candidate patient have to be a safe that he has mental health issues, so people can submit the application, and from the [facility] worker will contact him to do assessment if he qualify for any services that they can provide. Patient is receptive application, social media campaign manager was notified. Patient also would like to have services with [facility] in [place]. He showered yesterday morning, did not go to groups yesterday, but he will go to some groups today per his plan for the day, more awake, engaged in conversation, no irritability. However,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
[2025-07-14 19:34] VITALS: BP 148/91; PULSE 98; RESP 16; TEMP 36.9; O2SAT 96
--- NOTE | 2025-07-15 12:15 | P.PNPSI_ITS ---
Subjective Subjective Date of Service: 07/15/25 Reason For Visit: psychotic disorder Interim History: no change in presentation. resting in bed. per staff, no change. some DFA last night, took seroquel with good effect. Mental Status Exam Mental Status Exam Narrative: in bed. fair eye contact with exopthalmos. No PMA/PMR. cooperative. speech decr rate and amount and loudness. thoughts linear and logical. affect constricted, normo-intense. mood not assessed. no questions or complaints. No SI/SIB/HI/AVH expressed. Diagnostics Vital Signs (24Hr): Vital Signs - 24 hr 07/14/25 19:34 Temperature 98.4 F Pulse Rate 98 Respiratory Rate 16 Blood Pressure 148/91 H Pulse Oximetry 96 Oxygen Delivery Method Room Air BMI result Body Mass Index 23.2 Labs 06/25/25 08:02 06/20/25 20:35 Medications Medications Current Medications Acetaminophen (Acetaminophen 325 Mg Tablet) 650 mg PO Q4H PRN PRN Reason: Pain, Mild (Pain Scale 1-3) Last Admin: 07/06/25 22:53 Dose: 650 mg Al Hydroxide/Mg Hydroxide (Magnesium Hydrox/Alum Hydrox 30 Ml Oral.Susp) 30 ml PO Q6H PRN PRN Reason: Heart burn Benzocaine (Benzocaine 20 % Oral Gel 14 Gm Tube) 1 appl MUCOUS MEM QID PRN; Protocol PRN Reason: Mouth Sore Pain Last Admin: 04/26/25 18:33 Dose: 1 appl Diazepam (Diazepam 10 Mg/2 Ml Cartridge) 10 mg IM BID PRN PRN Reason: refusal of lithium, per [place] Last Admin: 04/11/25 09:56 Dose: 10 mg Glycopyrrolate (Glycopyrrolate 1 Mg Tablet) 1 mg PO BID [facility] Last Admin: 07/15/25 10:18 Dose: 1 mg [place] Carbonate ([place] Carbonate Er 300 Mg Tablet.Er) 600 mg PO DAILY [facility] Last Admin: 07/15/25 10:18 Dose: 600 mg [place] Carbonate ([place] Carbonate Er 450 Mg Tablet.Er) 900 mg PO DAILY@2300 [facility] Last Admin: 07/14/25 22:12 Dose: 900 mg Magnesium Hydroxide (Milk Of Magnesia 30 Ml Oral.Susp) 30 ml PO DAILY PRN PRN Reason: Constipation Methimazole (Methimazole 10 Mg Tablet) 10 mg PO DAILY [facility] Last Admin: 07/15/25 10:18 Dose: 10 mg Nicotine (Nicotine 21 Mg Patch.Td24) 21 mg TRANSDERMA DAILY PRN PRN Reason: nicotine cravings Last Admin: 04/12/25 17:06 Dose: 21 mg Nicotine Polacrilex (Nicotine Polacrilex Lozenge 2 Mg Lozenge) 2 mg BUCCAL Q1H PRN PRN Reason: Nicotine Cravings Last Admin: 04/30/25 08:49 Dose: 2 mg Patient Own Medication Excedrin 250/250/65mg 2 each PO Q8H PRN PRN Reason: Migraine Headache Last Admin: 07/07/25 06:31 Dose: 2 each Olanzapine (Olanzapine 10 Mg Vial) 10 mg IM DAILY PRN PRN Reason: if refuse Invega PO Paliperidone Palmitate (Paliperidone Palmitate 234 Mg/1.5 Ml Syringe) 234 mg IM Q30D KRISTAL Pseudoephedrine HCl (Pseudoephedrine Hcl 30 Mg Tablet) 30 mg PO Q6H PRN PRN Reason: Congestion Last Admin: 07/03/25 21:18 Dose: 30 mg Quetiapine Fumarate (Quetiapine Fumarate 100 Mg Tablet) 100 mg PO BEDTIME PRN PRN Reason: insomnia Quetiapine Fumarate (Quetiapine Fumarate 50 Mg Tablet) 50 mg PO BID PRN PRN Reason: agitation Last Admin: 07/14/25 23:32 Dose: 50 mg Sodium Chloride (Sodium Chloride 0.65 % Nasal 44 Ml Sprbtl) 1 spray NOSTRIL-B Q4H PRN PRN Reason: Congestion Last Admin: 07/03/25 23:03 Dose: 1 spray Allergies Allergies Allergy/AdvReac Type Severity Reaction Status Date / Time No Known Allergies Allergy Verified 03/26/25 14:24 Assessment & Plan Assessment & Plan (1) Graves disease: Status: Acute Code(s): E05.00 - Thyrotoxicosis with diffuse goiter without thyrotoxic crisis or storm Assessment and Plan: Hyperthyroidism/Graves disease. He will need follow up with endocrinology as an outpatient He will also need a primary care doctor referral as an outpatient Discussed with Dr. Bejarano, patient will need free T4 weekly Decrease Methimazole to 15 mgs daily for three days and then 10 mgs daily- discussed with patient he is aware of plan and rationale. TSH and free T4 every 4 weeks. No need to draw thyroid stimulation immunology or TSH receptor AB (2) Dental abscess: Status: Acute Code(s): K04.7 - Periapical abscess without sinus Assessment and Plan: Carious tooth/dental infection Recently treated with PEN VK 500 mg q.6 hours for 7 days Patient will need follow up with dentist on discharge for tooth extraction Motrin helping pain. (3) Becca: Status: Acute Code(s): F30.9 - Manic episode, unspecified Plan 03/26: offer lithium and seroquel for becca. continue methimazole and beta joanne for hyperthyroidism as started at [facility]. trend TFTs. 12b. 03/27: taking methimazole and beta joanne. refused HS meds last night, took morning meds today. continue to encourage medication compliance. 03/28: intermittently taking meds. wants all meds in morning. pressured, manic, paranoid delusions. encouraged to take lithium but states he will not. all meds ordered for morning. 03/29: Keeping to self. no groups. observed laying in bed listening to music on unit headphones. pleasant. Pt reports feeling good today and sleeping well. declined lithium and zyprexa. denies SI/HI/VH/AH. continue current tx plan. 03/30:Irritable. upset he was unable to use his personal hygiene products. Per nursing, pt threatened staff and squeezed tooth paste throughout unit hallway to show his frustration. Pt was able to calm down after speaking with security. declined medications. 03/31: Keeping to self. laying in bed listening to music. refused medications. calm today. Patient reports feeling great ; pt stated, nothing is wrong with me. I'm waiting so I can leave tomorrow. I'm hoping for the best . denies SI/HI/VH/AH. per nursing, slept 6 hours. Continue current tx plan. 04/01: variably calm on the unit versus highly agitated. paranoid delusions, irritability, lability continue. seems to believe has met him prior to the present hospitalization and is stalking him. believes brother behind conspiracy to have him psychiatrically hospitalized. has been refusing all medications, including for hyperthyroidism. informed he would be filed on. filed. continue to offer medications. 04/02: continues agitated, belittling, verbally aggressive, refusing all medications including for hyperthyroidism. continue to offer medication. 04/03: paranoid there is a conspiracy to hospitalize him. threatening to stick a stick in staff once he is released by [employer]. insists his hyperthyroidism was cured at [facility]. asserts there is NOTHING wrong with him. continue to offer medication. 04/04: irritable, rejecting. verbally abuses MD and sends him away: see you on monday [in court]. continue to offer medication for thyroid condition and mental illness. 04/05 continue tx. suspicious and guarded, accusatory, verbal threats to hurt staff and peers 04/06 intrusive, posturing towards staff and peer who he thinks is not real and is an impostor, continues to make verbal threats to harm him but thinks that because he is not real he may not experience any pain. 04/07: threatening statements and behaviors of yesterday noted. pt sleeping this morning, dismissive of MD. 04/08: asleep days. committed and meds ordered by court. 04/09: on being informed of court order and MD insisting on meds, pt escalated to hurling food item in container against wall at high speed and saying he wished he could do the same to MD's head. pt eventually took court ordered meds PO. sensodyne and excedrin not available in pharmacy (pt requesting them). 04/10: continue tx. Pt accepting medication today. 04/11: Keeping to self. Lying in bed most of morning. Declined to meet with T/W. Pt stated, I'm fine. I don't need anything . Listening to headphones in room. Declined court ordered PO medications; received IM medications. Refused vital signs.continue tx plan. 04/12: got IMs yesterday, took PO this morning. sleepy, no concerns or complaints. 04/13: taking PO meds again. slept 7 hours. sleepy again mid morning refusing interview. continue current mgmt. 04/14: sleeping, rousable. denies being sedated or tired, says he's just bored. no questions or complaints. informed of need to check labs. check lithium level and thyroid labs tonight. 04/15: refusing labs. delusional re his brother harming him. verbally abusive toward MD. spat in floor. happy with improvement in proptosis. 04/16: Lying in bed. Calm. cooperative. guarded. Pt reports feeling tired this morning d/t poor sleep last night. Pt stated, I don't need anything. I didn't sleep well so I'm trying to catch up . denies any issues at this time. denies SI/HI/VH/AH. Continue current tx plan. 04/17: more calm today, less explosive. continue current mgmt. 04/18: continues more calm. tolerating moments of frustration without verbally attacking MD. slept only 2 hours overnight, however. continue current mgmt. 04/19 continues to push boundaries and limits with staff mike around cell phone- 04/20 - aggressive with staff and unpredictable- threw water pitcher at staff behind desk/-when seen by provider passive in bed-denying all compaints/sys- no insight 04/21: appears as per last week. more difficult behaviors around cell phone use, did throw pitcher of water at RN monday over phone use and was restrained. continue current mgmt. 04/22: continues to have conflict around cell phone use. consolidate zyprexa at HS to decrease daytime sedation. 1:1 allegra shift until peer he is accusing of not being a real patient and appears to be targeting discharges tomorrow. 04/23: lithium 0.6 on 600 BID. sleeping better, remains delusional (telling SW who is marginally younger than him that she could be his daughter). just changed zyprexa dosing as of last night. continue current regimen and observe for continued stabilization. T/C slight increase in lithium dosing. 04/24: Laying in bed. guarded. calm. did not want to get out of bed to meet with T/W. Pt reports feeling great today but declined to go into detail. listening to music on unit headphones. Pt stated, I'm fine. I don't need anything . denies any issues at this time. denies SI/HI/VH/AH. Continue current tx plan. 04/25: Laying in bed. keeping to self. calm. paranoid. Discussed incident that occurred with staff last evening. Pt stated, the counselor made up a lie yesterday. I said she looks like my ex-girlfriend. I know they are related. They want to make up a lie to irritate me. They are trying to talk to me so they can use recording devices and make me look some kind of way . listening to music on unit headphones. denies SI/HI/VH/AH. Continue current tx plan. 04/26: Continue current regimen and plans. Increase Zyprexa 20 mg q.h.s. fresh air break withheld 04/27: Continue current regimen and plans 04/28: somewhat less irritable and agitated than last week. however, over the weekend was claiming he was the father of a footballer on TV and also that a staff member is a twin of his ex-GF (and he pushed staff member). TFTs improving. continue current mgmt. 04/29: no change in presentation. continue current mgmt. 04/30: no irritable edge today. calm, pleasant. engaging in small talk. reality testing not pressed. continue current mgmt for now. 05/01: no change in presentation. continue current mgmt. 05/02: BPs coming down, DC beta joanne as pt has been refusing anyway. remains not antagonistic toward MD. using phone appropriately. continue current mgmt otherwise. 05/03 continue 05/04: remains delusional, irritable/labile when delusional system confronted. declines to sign TOMMY for [facility] records. continue current mgmt. 05/06: declining to meet with MD, but does meet with medical student. remains upset about yesterday's confrontation re his delusional system. 05/07: Active on unit. keeping to self. pacing unit hallway while listening to unit headphones. medication compliant. patient reports feeling good ; pt stated, I'm just waiting to leave here. I want to return to my life and do things like go grocery shopping . denies SI/HI/VH/AH. Continue current tx plan. 05/08: stable presentation, delusions not being brought to the surface daily. remains affectively improved from admission. continue current mgmt. 05/09: calm, pleasant. no questions or complaints. continue current mgmt. 05/10: no change in presentation. due to lack of improvement in dental infection Sx, DC PCN and start augmentin. 05/11: no change in presentation. continue current mgmt. 05/12: as for yesterday. dental pain improving a bit. 05/13: expressed to medical student that his brother poisoned him, causing his thyroid disease. no change in presentation. continue current mgmt. 05/14: Pacing unit hallway. keeping to self. patient reports feeling good today; denies any issues at this time. denies SI/HI/VH/AH. per nursing, slept 5 hours. Continue current tx plan. 05/15: slept 6 hours. otherwise isolative, difficult to engage. continue current mgmt. 05/16: slept 7 hours. as for yesterday otherwise. 05/17/25: Slept well, no issue with appetite, skinny and pretty tall. Compliant with medication. No side effects Calm and pleasant upon approach. Some what paranoid. Tangential, however denies other safety concerns. Questions if he is discharging soon. He is on antibiotic for 7 days for mouth pain/tooth pain. We will finish the 7 course up in antibiotic after tonight dose. Then discontinue. 05/18/25: Slept for 5 hours plus hours this morning. In bed most of the shift, no behavior issues. Denies other safety concerns. 05/19: in bed days, up eves. no change in presentation. continue current mgmt. 05/20: no change in presentation. check labs. 05/21: lithium low, TFTs mixed and not all back. increase lithium from 600 BID to 600/900. trend BUN/Cr, with slight elevation. otherwise continue current mgmt. 05/22: no change in presentation. continue current mgmt. 05/23: does not deny someone stole his sperm and impregnated his landlord's child with it. irritable. c/o dental pain, antibx restarted. otherwise continue current mgmt. 05/14: no change in mgt 05/25: more isolative today; no change in mgt 05/26: decreases in methimazole noted. continue psych regimen as is. pt refused to interact with MD today. 05/27: i'm sleeping. no change in presentation. labs tonight. 05/28: no change in behavior. lithium 0.66, BUN stable. continue current mgmt. 05/29: irritable. continue current mgmt. 05/30: no longer in single room. still not engaging, sleeping days. continue current mgmt. 05/31:laying in bed. declined to meet with T/W. pt stated, I want to sleep. I didn't sleep enough . Pt encouraged to reach out to staff if he needs anything. Continue current tx plan. 06/01: Similar to yesterday. laying in bed. Irritable. declined to meet with T/W and pulled bed sheets over head. pt stated, I don't want to talk. I want to sleep . difficult to engage. Continue current tx plan. 06/02: Similar to yesterday. laying in bed. Irritable. declined to meet with T/W. Observed getting drink from kitchen; T/W approached pt and asked if they could speak. patient declined to acknowledge T/W and walked past. Continue current tx plan. 06/03: no change in behavior. continue tx plan. 06/04/25: Passive engaged in the assessment, in bed mostly sleeping this morning which could be interfere with his nighttime. Cover body under the blanket Slept for 4-5 hours last night. Was medication compliant, attended no groups, isolative to self in room. No SI/SIB/HI/AVH expressed. 06/05: continue tx plan. 06/06: reports feeling fine ; continues guarded. difficult to engage. declining to meet with T/W. continue tx plan. 06/07/25: Slept for 4 hours at night, but has been sleeping most of the day yesterday as well. Spent majority of the shift in bed, was medication compliant. Passive engaged in the conversation. He said he will try to change the sleeping pattern so that he can be awake more during the daytime. Appear to be sedated in the morning. No safety behavior. 06/08/25: Slept for 3-4 hours last night, compliant with medications. Denies side effects, denies other safety concerns. Continued to encourage patient to up and down more than on the unit he spent most of the day sleeping. He is pleasant upon approach. No other behavior issues. Denied voices/hallucinations. Suicide thoughts or homicidal thoughts. 06/09: sleeping, minimally rousable. denies problems. continue current mgmt. 06/10: sleeping all day, up most of the night. minimally rousable. denies problems. continue current mgmt. per JAMAICA Arrington: Jean said when he leaves he can return to [facility]. he was living with a lady there and can go back. He plans to get a job to pay off his debt. He said he owes money because they sent him back here due to losing his passport and he owes them money for the temporary emergency passport and the flight back to the . so his main focus is to get a job. he said he will try things here first and if it doesn't work out he plans to return to [place]. 06/11/25: Passively engaged in conversation while in bed sleeping/resting. Able to answer question appropriately, but seems to be minimized. Denies SI/SIB/HI/AVH. He slept 5 hours last night, spent most of the day in bed sleeping. Attempted to no groups, observed out to the afternoon in the subramanian near the nurse station. No change in presentation. Encourage groups,up and engaged in groups. 06/12: not engaging. no complaints or questions re med changes. cross-taper zyprexa in favor of invega, give MONTERO invega. tonight, decrease zyprexa to 15 mg and start invega 3 mg. otherwise continue current mgmt. 06/13: continues avoidant and disengaged. denies side effects from med change last night. informed cross-titration will advance tonight. decrease zyprexa to 10 mg tonight, increase paliperidone to 6 mg. plan to continue by 5 mg zyprexa and 3 mg paliperidone increments every several days as tolerated until zyprexa DCed and paliperidone at 12 mg QHS. once it is established pt is tolerating PO Paliperidone, invega sustenna to be administered. 06/14: Continue current regimen and plans 06/15: Continue current plans and regimen 06/16: irritable re neuroleptic change. denies side effects or problems with it, however. minimally engageable. increase invega to 9 QHS and decrfease zyprexa to 5 QHS. 06/17/25: Continued to be irritable regarding medication change/titration. However engaged in conversation, hyper verbal, paranoid, reports medication slow his thoughts down and he does not not like it. Poor insight and poor judgment. He thinks he only need lithium, not other medications. Remind patient to continue doing the sleep pattern changing. However his in bed mostly this morning. Slept for 4-5 hours last night. 06/18/25: Slept for 5 hours last night as he continues sleeping during daytime. Compliant with meds, did not c/o side effects.Passingly engaging in assessment. Denies safety concerns. Tolerate the tritation well. Will increase Inveag up to max of 12 tomorrow and Discontinue Olanzepine at HS. Continue to encourage up and out on day so he can sleep better at HS. 06/19/25: Patient slept for 5.5 hours last night, was medication compliant, mostly in his room yesterday but seen more often in the evening. Patient is awake in his room, listen to music, his morning tray was taken away and clean the area. He is very pleasant to talk to today, reports he feels good, denies side effects from medications, denies any safety concerns. Denies feeling sedation, denies anxiety/depression. He is receptive with the plan of medication over the weekends and next week, happy to hear about the medication plan. He also agree with the MONTERO Invega Sustenna on Monday. Encourage him to go out and attended to groups, he said that he will. Reported that he was out for groups a couple of times last week. Discontinue Haldol p.r.n.. Discontinue scheduled Zyprexa 5 mg at bedtime. Only on Zyprexa at g IM daily p.r.n. as backup orders if refused Invega. Invega 12 mg at bedtime. Plan to monitor over the weekends and will give long- acting injection on Monday if tolerate with the p.o. well Reduce Seroquel 200 mg p.r.n. at bedtime to 100 p.r.n. at bedtime for insomnia. Seroquel 50 mg b.i.d. p.r.n. for agitation. Discontinue Motrin. Patient on lithium. Labs were for MondayJune 20: CMP, TSH with free T4. 06/20/25: In bed most of the day, was compliant with medication, however refused labs work. Re- scheduled for Monday. Continue with Invega 12 mg at bedtime. We will reassess and offer long-acting injection on Monday. Continue to encourage patient to get up and go to some groups. No safety concerns expressed. Minimal peer and staff interaction. 06/21: no change in presentation. start MONTERO monday. no s/e from invega. otherwise continue current mgmt. 06/22: stable. continue current mgmt. 06/23/25: More awake and alert. Review with patient regarding policy for his phone use BID 30min each time, patient is educated on compliant with policy. He asks for more 5-10 min extra headphone use at night on the weekends after 2300. Once again, redirected for unit rules. He agrees with MONTERO which is scheduled today. Discontinue Invega PO Invega Sustenna 234mg IM once. Will monitor for possible side effects and sedation. Will offer 156mg after 1 week. If mentaly stable with 156mg, will maintain at this dose, if not will offer 234mg Monthly. 06/24/25: Slept for 5 hours last night, but also went to bed around 7 tonight p.m. last night per his report. He also attended to groups in the afternoon yesterday. Compliant with medications. No side effects from Invega Sustenna. He is engaged in full conversation today why he is in bed, denies safety concerns. Observe he is on the unit, social with peers and staff in longer period of time. Appeared to be happy. He plans to take shower today. Reported that he was up early but he does not feel hungry in the morning. He is making progress, not too sedated during daytime since switching his medication. Appears to do well so far with Invega Sustenna. 06/25/25: Patient slept for 4 hours last night, however he reported was napping in the afternoon for couple hours which affect his sleeping pattern at night. Educate patient to not napping late in the evening. He is receptive. Compliant with medications, no side effects. He reports his did not shower yesterday but he will today. He is awake in his room not sleeping, engage in full conversation, no delusional or paranoid statements make. He is visible at times. Continued to improve in mood, engaging in other activities on the unit. Denies other safety concerns. Denies hallucinations. No irritability mood, not sedated during day time compared to when he was taking olanzapine. We will schedule Invega Sustenna 156 next Monday. Work with social service assistant to see where he will return to. He probably needs [facility] to manage medication. 06/26/25: He slept for 5 hours, compliant with medications. Denies side effects. He self-reported that he went to bed last night and was able to fall asleep by 01:00 and able to stay asleep whole night. Denies safety concerns. I spoke with him in length today regarding aftercare. He thinks he will go to the hospital in [place] to ask them regarding his heart condition. He thinks people was lying to get him to the hospital as he does not have mental health illnesses. He believes that he has been exactly the same he was seen he was a little, and at he able to remember everything in the past. He also reports that he used to use [facility] in [place]. At he does not want [facility] application. I explained to him that in order to be a candidate patient have to be a safe that he has mental health issues, so people can submit the application, and from the [facility] worker will contact him to do assessment if he qualify for any services that they can provide. Patient is receptive application, social service assistant was notified. Patient also would like to have services with [facility] in [place]. He showered yesterday morning, did not go to groups yesterday, but he will go to some groups today per his plan for the day, more awake, engaged in conversation, no irritability. However, continued to be poor insight of his illnesses. He does not want to return to his brother I have not talking to him for since 2021. He reported that that his brother told other people that patient was trying to kill his brother with a knife. He had question regarding the Invega Sustenna which is scheduled for next Monday. He does having good memory for whatever we discussed the past couple of days. He plans to continue taking meds as prescribed after discharge. However, with unsafe discharge plan at this current time, I would think he will relapse shortly after discharge if he does not have good support system in community. He has no where to turn, and limited support in community. He does not think MJ will affect his brain functions and mental status. He would potential smoke it when he leaves. 06/27/25: Slept for 6 hours last night which is improving, continue to educate patient not to nap late in the evening so that he can sleep better at night. He still does not want to change medication at bedtime earlier than 2300. Observe he is out on the unit, listen to music, social, and attended groups, he also tried to drink couple of coffee to keep him awake during the daytime. Educate patient not to much coffee late in the afternoon. He is medication compliant. Denies side effects. Talk to social service assistant this morning that he will do [facility] application on Monday. Denies safety concerns. Have poor insight of mental health. 06/28/2025: No changes to current plan. Invega Sustenna 156 mg IM scheduled on 06/30 at 10:00 06/29: no changes 06/30/25: Got Second loading dose of Invega Sustenna today. visible, social and appropriate. Did not attend groups over the weekends but he plans to attend groups today. Report sleeping better at night. Do not want HS scheduled time to change. Continue to work with for DMH application, OP services. He would like to FLU with [facility] in [place]. Educate patient of risk harming kidneys if taking [place] with NSAIDs, Motrin. Continue to reinforce. Invega Sustenna 156mg IM. Pending effects. 07/01/25: Continued to improve in mood, sleep, and appetite. Compliant with medications. He is visible, intermittently attended groups. Engaged in treatment, engaged in encourage cessation with this provider and social service assistant. He side the DMH application, he also signed consent for [facility] so that social service assistant can work on discharge plan. Per social service assistant, patient is on the waiting list which is a definite when he will have the bed with [facility] services. Denies safety concerns, denies side effects from medications. 07/02/25: Slept for 6 hours, compliant with meds, intermittently attended groups. No behavior issues. Worry/anxious regarding DMH services and assessment coming this Monday. He is paranoid regarding what his brother will talk about when staff call. He thinks his brother will make up story and lie to us regarding reasons brought him to the hospital. Denies safety concerns. Denies hallucination. Continue to have poor insight of mental illnesses. [facility] will do assessment on Monday at 1000. 07/03/25: Patient slept for 8 hours which is much more hours than normal the past weeks, continued to improve with slept parents, compliant with medications. Reported that he has severe headache earlier today, took Excedrin and is tolerable during assessment. Patient was talking about how he was paranoid when he was at [facility] due to lack of sleep. Educate patient what is mental health illnesses. He is very simple, accepted education. Isolate this morning in his room. He plans to just rest this morning due to the headache. Denies safety concerns. Calm, pleasant, and cooperative upon approach. Explained more in details of of [facility] services. He is looking forward to having assessment tomorrow by 10:00 with them. 07/04/25: Patient slept well, normal sleeping pattern at night, he slept for 8 hours, compliant with medications. Sinus congestion is improved. He met with [facility] workers for 1-1/2 hours this morning. However due to his tangential thoughts, [facility] we will need to come back to see him again next week on . He feels a little bit disappointed is is not fast enough that the way that he thinks things are not easy . He asked question what is the care home. Explained to him, and appeared that he does not want to be in the care home, he does not not feel he has had mental health. Continued to be poor insight of the illnesses which could be at his baseline. [facility] will refer patient to PACT team. Denies safety concerns, he is visible, social inappropriate. Attended groups, no behavior issues 07/05: Keeping to self. Patient reports feeling fine today; pt states he is focused on leaving soon. Patient stated, I hope I can leave soon . denies SI/HI/VH/AH. denies any issues at this time. Continue current tx plan. 07/06: Continue current tx plan. 07/07: continue current tx plan 07/08: per med consult, check TSH/free T4 prior to discharge and refer to endocrinology. per staff, pt has improved substantially since last time this continuity writer was working with pt; pt is not notably focused on delusional material. work toward safe discharge plan. 07/09/25: Patient slept through the night, medication compliant. No behavior issues. Spent time in his room this morning. In the evening, patient reports that he has been experience extra saliva-drooling which could be from the side effects of medication. Robinul 0.5 mg twice a day scheduled. Pending effect. No other safety concerns. He is informed that [facility] worker will come to continue with the assessment at around 09:30 on 07/10/25. 07/10: more responsive to interaction with MD today. per JAMAICA Arrington, pt called his brother on [facility] recommendation. considering options for discharge. 07/11: continues more responsive. asking for [facility] respite bed at discharge. c/o dental pain and chronic knee pain. as pt is a longer term pt than most, will investigate if accessing dental care while inpatient here is possible. next sustenna shot ordered for 07/28. continue current mgmt. 07/13/2025: No changes to current regimen 07/14: no dental care possible per [place], mental health director (as reported by Devin, M3 nurse mgr). no change in presentation. increase glycopyrrolate to 1 BID. otherwise continue current mgmt. 07/15: DFA last night had some seroquel with good effect. sleepy in bed this morning. no questions or complaints. advised to work with JAMAICA Arrington on dispo to [facility] respite bed. Reason for continued inpatient stay Substantial Risk for: inability to function and rapid decompensation Time Spent With Patient Time: Total time managing care of this patient today __25__ minutes.
[2025-07-15] MEDS: Hydrocortisone 1 % Cream 28.35 GM TUBE 1 APPL TOPICAL (18:10)
[2025-07-15 20:00] VITALS: BP 151/79; PULSE 93; RESP 16; TEMP 37.1; O2SAT 96
--- NOTE | 2025-07-16 13:34 | P.PNPSI_ITS ---
Subjective Subjective Date of Service: 07/16/25 Reason For Visit: psychotic disorder Interim History: no change in presentation. per staff, no change in presentation. Mental Status Exam Mental Status Exam Narrative: in bed. fair eye contact with exopthalmos. No PMA/PMR. cooperative. speech decr rate and amount and loudness. thoughts linear and logical. affect constricted, normo-intense. mood not assessed. no questions or complaints. No SI/SIB/HI/AVH expressed. Diagnostics Vital Signs (24Hr): Vital Signs - 24 hr 07/15/25 20:00 Temperature 98.7 F Pulse Rate 93 Respiratory Rate 16 Blood Pressure 151/79 H Pulse Oximetry 96 Oxygen Delivery Method Room Air BMI result Body Mass Index 23.2 Labs 06/25/25 08:02 06/20/25 20:35 Medications Medications Current Medications Acetaminophen (Acetaminophen 325 Mg Tablet) 650 mg PO Q4H PRN PRN Reason: Pain, Mild (Pain Scale 1-3) Last Admin: 07/06/25 22:53 Dose: 650 mg Al Hydroxide/Mg Hydroxide (Magnesium Hydrox/Alum Hydrox 30 Ml Oral.Susp) 30 ml PO Q6H PRN PRN Reason: Heart burn Benzocaine (Benzocaine 20 % Oral Gel 14 Gm Tube) 1 appl MUCOUS MEM QID PRN; Protocol PRN Reason: Mouth Sore Pain Last Admin: 04/26/25 18:33 Dose: 1 appl Diazepam (Diazepam 10 Mg/2 Ml Cartridge) 10 mg IM BID PRN PRN Reason: refusal of lithium, per [place]rett Last Admin: 04/11/25 09:56 Dose: 10 mg Glycopyrrolate (Glycopyrrolate 1 Mg Tablet) 1 mg PO BID [facility] Last Admin: 07/16/25 09:04 Dose: 1 mg Hydrocortisone (Hydrocortisone 1 % Cream 28.35 Gm Tube) 1 appl TOPICAL DAILY PRN; Protocol PRN Reason: rash Last Admin: 07/15/25 18:10 Dose: 1 appl [place] Carbonate ([place] Carbonate Er 300 Mg Tablet.Er) 600 mg PO DAILY [facility] Last Admin: 07/16/25 09:04 Dose: 600 mg [place] Carbonate ([place] Carbonate Er 450 Mg Tablet.Er) 900 mg PO DAILY@2300 [facility] Last Admin: 07/15/25 22:45 Dose: 900 mg Magnesium Hydroxide (Milk Of Magnesia 30 Ml Oral.Susp) 30 ml PO DAILY PRN PRN Reason: Constipation Methimazole (Methimazole 10 Mg Tablet) 10 mg PO DAILY [facility] Last Admin: 07/16/25 09:04 Dose: 10 mg Nicotine (Nicotine 21 Mg Patch.Td24) 21 mg TRANSDERMA DAILY PRN PRN Reason: nicotine cravings Last Admin: 04/12/25 17:06 Dose: 21 mg Nicotine Polacrilex (Nicotine Polacrilex Lozenge 2 Mg Lozenge) 2 mg BUCCAL Q1H PRN PRN Reason: Nicotine Cravings Last Admin: 04/30/25 08:49 Dose: 2 mg Patient Own Medication Excedrin 250/250/65mg 2 each PO Q8H PRN PRN Reason: Migraine Headache Last Admin: 07/07/25 06:31 Dose: 2 each Olanzapine (Olanzapine 10 Mg Vial) 10 mg IM DAILY PRN PRN Reason: if refuse Invega PO Paliperidone Palmitate (Paliperidone Palmitate 234 Mg/1.5 Ml Syringe) 234 mg IM Q30D [facility] Pseudoephedrine HCl (Pseudoephedrine Hcl 30 Mg Tablet) 30 mg PO Q6H PRN PRN Reason: Congestion Last Admin: 07/03/25 21:18 Dose: 30 mg Quetiapine Fumarate (Quetiapine Fumarate 100 Mg Tablet) 100 mg PO BEDTIME PRN PRN Reason: insomnia Quetiapine Fumarate (Quetiapine Fumarate 50 Mg Tablet) 50 mg PO BID PRN PRN Reason: agitation Last Admin: 07/15/25 22:48 Dose: 50 mg Sodium Chloride (Sodium Chloride 0.65 % Nasal 44 Ml Sprbtl) 1 spray NOSTRIL-B Q4H PRN PRN Reason: Congestion Last Admin: 07/03/25 23:03 Dose: 1 spray Allergies Allergies Allergy/AdvReac Type Severity Reaction Status Date / Time No Known Allergies Allergy Verified 03/26/25 14:24 Assessment & Plan Assessment & Plan (1) Graves disease: Status: Acute Code(s): E05.00 - Thyrotoxicosis with diffuse goiter without thyrotoxic crisis or storm Assessment and Plan: Hyperthyroidism/Graves disease. He will need follow up with endocrinology as an outpatient He will also need a primary care doctor referral as an outpatient Discussed with Dr. Bejarano, patient will need free T4 weekly Decrease Methimazole to 15 mgs daily for three days and then 10 mgs daily- discussed with patient he is aware of plan and rationale. TSH and free T4 every 4 weeks. No need to draw thyroid stimulation immunology or TSH receptor AB (2) Dental abscess: Status: Acute Code(s): K04.7 - Periapical abscess without sinus Assessment and Plan: Carious tooth/dental infection Recently treated with PEN VK 500 mg q.6 hours for 7 days Patient will need follow up with dentist on discharge for tooth extraction Motrin helping pain. (3) Becca: Status: Acute Code(s): F30.9 - Manic episode, unspecified Plan 03/26: offer lithium and seroquel for becca. continue methimazole and beta joanne for hyperthyroidism as started at [facility] [place]. trend TFTs. 12b. 03/27: taking methimazole and beta joanne. refused HS meds last night, took morning meds today. continue to encourage medication compliance. 03/28: intermittently taking meds. wants all meds in morning. pressured, manic, paranoid delusions. encouraged to take lithium but states he will not. all meds ordered for morning. 03/29: Keeping to self. no groups. observed laying in bed listening to music on unit headphones. pleasant. Pt reports feeling good today and sleeping well. declined lithium and zyprexa. denies SI/HI/VH/AH. continue current tx plan. 03/30:Irritable. upset he was unable to use his personal hygiene products. Per nursing, pt threatened staff and squeezed tooth paste throughout unit hallway to show his frustration. Pt was able to calm down after speaking with security. declined medications. 03/31: Keeping to self. laying in bed listening to music. refused medications. calm today. Patient reports feeling great ; pt stated, nothing is wrong with me. I'm waiting so I can leave tomorrow. I'm hoping for the best . denies SI/HI/VH/AH. per nursing, slept 6 hours. Continue current tx plan. 04/01: variably calm on the unit versus highly agitated. paranoid delusions, irritability, lability continue. seems to believe MD has met him prior to the present hospitalization and is stalking him. believes brother behind conspiracy to have him psychiatrically hospitalized. has been refusing all medications, including for hyperthyroidism. informed he would be filed on. filed. continue to offer medications. 04/02: continues agitated, belittling, verbally aggressive, refusing all medications including for hyperthyroidism. continue to offer medication. 04/03: paranoid there is a conspiracy to hospitalize him. threatening to stick a stick in staff once he is released by sales operations coordinator. insists his hyperthyroidism was cured at [facility]. asserts there is NOTHING wrong with him. continue to offer medication. 04/04: irritable, rejecting. verbally abuses MD and sends him away: see you on monday [in court]. continue to offer medication for thyroid condition and mental illness. 04/05 continue tx. suspicious and guarded, accusatory, verbal threats to hurt staff and peers 04/06 intrusive, posturing towards staff and peer who he thinks is not real and is an impostor, continues to make verbal threats to harm him but thinks that because he is not real he may not experience any pain. 04/07: threatening statements and behaviors of yesterday noted. pt sleeping this morning, dismissive of MD. 04/08: asleep days. committed and meds ordered by court. 04/09: on being informed of court order and MD insisting on meds, pt escalated to hurling food item in container against wall at high speed and saying he wished he could do the same to MD's head. pt eventually took court ordered meds PO. sensodyne and excedrin not available in pharmacy (pt requesting them). 04/10: continue tx. Pt accepting medication today. 04/11: Keeping to self. Lying in bed most of morning. Declined to meet with T/W. Pt stated, I'm fine. I don't need anything . Listening to headphones in room. Declined court ordered PO medications; received IM medications. Refused vital signs.continue tx plan. 04/12: got IMs yesterday, took PO this morning. sleepy, no concerns or complaints. 04/13: taking PO meds again. slept 7 hours. sleepy again mid morning refusing interview. continue current mgmt. 04/14: sleeping, rousable. denies being sedated or tired, says he's just bored. no questions or complaints. informed of need to check labs. check lithium level and thyroid labs tonight. 04/15: refusing labs. delusional re his brother harming him. verbally abusive toward MD. spat in floor. happy with improvement in proptosis. 04/16: Lying in bed. Calm. cooperative. guarded. Pt reports feeling tired this morning d/t poor sleep last night. Pt stated, I don't need anything. I didn't sleep well so I'm trying to catch up . denies any issues at this time. denies SI/HI/VH/AH. Continue current tx plan. 04/17: more calm today, less explosive. continue current mgmt. 04/18: continues more calm. tolerating moments of frustration without verbally attacking MD. slept only 2 hours overnight, however. continue current mgmt. 04/19 continues to push boundaries and limits with staff mike around cell phone- 04/20 - aggressive with staff and unpredictable- threw water pitcher at staff behind desk/-when seen by provider passive in bed-denying all compaints/sys- no insight 04/21: appears as per last week. more difficult behaviors around cell phone use, did throw pitcher of water at RN monday over phone use and was restrained. continue current mgmt. 04/22: continues to have conflict around cell phone use. consolidate zyprexa at HS to decrease daytime sedation. 1:1 allegra shift until peer he is accusing of not being a real patient and appears to be targeting discharges tomorrow. 04/23: lithium 0.6 on 600 BID. sleeping better, remains delusional (telling SW who is marginally younger than him that she could be his daughter). just changed zyprexa dosing as of last night. continue current regimen and observe for continued stabilization. T/C slight increase in lithium dosing. 04/24: Laying in bed. guarded. calm. did not want to get out of bed to meet with T/W. Pt reports feeling great today but declined to go into detail. listening to music on unit headphones. Pt stated, I'm fine. I don't need anything . denies any issues at this time. denies SI/HI/VH/AH. Continue current tx plan. 04/25: Laying in bed. keeping to self. calm. paranoid. Discussed incident that occurred with staff last evening. Pt stated, the counselor made up a lie yesterday. I said she looks like my ex-girlfriend. I know they are related. They want to make up a lie to irritate me. They are trying to talk to me so they can use recording devices and make me look some kind of way . listening to music on unit headphones. denies SI/HI/VH/AH. Continue current tx plan. 04/26: Continue current regimen and plans. Increase Zyprexa 20 mg q.h.s. fresh air break withheld 04/27: Continue current regimen and plans 04/28: somewhat less irritable and agitated than last week. however, over the weekend was claiming he was the father of a footballer on TV and also that a staff member is a twin of his ex-GF (and he pushed staff member). TFTs improving. continue current mgmt. 04/29: no change in presentation. continue current mgmt. 04/30: no irritable edge today. calm, pleasant. engaging in small talk. reality testing not pressed. continue current mgmt for now. 05/01: no change in presentation. continue current mgmt. 05/02: BPs coming down, DC beta joanne as pt has been refusing anyway. remains not antagonistic toward MD. using phone appropriately. continue current mgmt otherwise. 05/03 continue 05/04: remains delusional, irritable/labile when delusional system confronted. declines to sign TOMMY for [facility] records. continue current mgmt. 05/06: declining to meet with MD, but does meet with medical student. remains upset about yesterday's confrontation re his delusional system. 05/07: Active on unit. keeping to self. pacing unit hallway while listening to unit headphones. medication compliant. patient reports feeling good ; pt stated, I'm just waiting to leave here. I want to return to my life and do things like go grocery shopping . denies SI/HI/VH/AH. Continue current tx plan. 05/08: stable presentation, delusions not being brought to the surface daily. remains affectively improved from admission. continue current mgmt. 05/09: calm, pleasant. no questions or complaints. continue current mgmt. 05/10: no change in presentation. due to lack of improvement in dental infection Sx, DC PCN and start augmentin. 05/11: no change in presentation. continue current mgmt. 05/12: as for yesterday. dental pain improving a bit. 05/13: expressed to medical student that his brother poisoned him, causing his thyroid disease. no change in presentation. continue current mgmt. 05/14: Pacing unit hallway. keeping to self. patient reports feeling good today; denies any issues at this time. denies SI/HI/VH/AH. per nursing, slept 5 hours. Continue current tx plan. 05/15: slept 6 hours. otherwise isolative, difficult to engage. continue current mgmt. 05/16: slept 7 hours. as for yesterday otherwise. 05/17/25: Slept well, no issue with appetite, skinny and pretty tall. Compliant with medication. No side effects Calm and pleasant upon approach. Some what paranoid. Tangential, however denies other safety concerns. Questions if he is discharging soon. He is on antibiotic for 7 days for mouth pain/tooth pain. We will finish the 7 course up in antibiotic after tonight dose. Then discontinue. 05/18/25: Slept for 5 hours plus hours this morning. In bed most of the shift, no behavior issues. Denies other safety concerns. 05/19: in bed days, up eves. no change in presentation. continue current mgmt. 05/20: no change in presentation. check labs. 05/21: lithium low, TFTs mixed and not all back. increase lithium from 600 BID to 600/900. trend BUN/Cr, with slight elevation. otherwise continue current mgmt. 05/22: no change in presentation. continue current mgmt. 05/23: does not deny someone stole his sperm and impregnated his landlord's child with it. irritable. c/o dental pain, antibx restarted. otherwise continue current mgmt. 05/14: no change in mgt 05/25: more isolative today; no change in mgt 05/26: decreases in methimazole noted. continue psych regimen as is. pt refused to interact with MD today. 05/27: i'm sleeping. no change in presentation. labs tonight. 05/28: no change in behavior. lithium 0.66, BUN stable. continue current mgmt. 05/29: irritable. continue current mgmt. 05/30: no longer in single room. still not engaging, sleeping days. continue current mgmt. 05/31:laying in bed. declined to meet with T/W. pt stated, I want to sleep. I didn't sleep enough . Pt encouraged to reach out to staff if he needs anything. Continue current tx plan. 06/01: Similar to yesterday. laying in bed. Irritable. declined to meet with T/W and pulled bed sheets over head. pt stated, I don't want to talk. I want to sleep . difficult to engage. Continue current tx plan. 06/02: Similar to yesterday. laying in bed. Irritable. declined to meet with T/W. Observed getting drink from kitchen; T/W approached pt and asked if they could speak. patient declined to acknowledge T/W and walked past. Continue current tx plan. 06/03: no change in behavior. continue tx plan. 06/04/25: Passive engaged in the assessment, in bed mostly sleeping this morning which could be interfere with his nighttime. Cover body under the blanket Slept for 4-5 hours last night. Was medication compliant, attended no groups, isolative to self in room. No SI/SIB/HI/AVH expressed. 06/05: continue tx plan. 06/06: reports feeling fine ; continues guarded. difficult to engage. declining to meet with T/W. continue tx plan. 06/07/25: Slept for 4 hours at night, but has been sleeping most of the day yesterday as well. Spent majority of the shift in bed, was medication compliant. Passive engaged in the conversation. He said he will try to change the sleeping pattern so that he can be awake more during the daytime. Appear to be sedated in the morning. No safety behavior. 06/08/25: Slept for 3-4 hours last night, compliant with medications. Denies side effects, denies other safety concerns. Continued to encourage patient to up and down more than on the unit he spent most of the day sleeping. He is pleasant upon approach. No other behavior issues. Denied voices/hallucinations. Suicide thoughts or homicidal thoughts. 06/09: sleeping, minimally rousable. denies problems. continue current mgmt. 06/10: sleeping all day, up most of the night. minimally rousable. denies problems. continue current mgmt. per JAMAICA Arrington: Jean said when he leaves he can return to [facility]. he was living with a lady there and can go back. He plans to get a job to pay off his debt. He said he owes money because they sent him back here due to losing his passport and he owes them money for the temporary emergency passport and the flight back to the . so his main focus is to get a job. he said he will try things here first and if it doesn't work out he plans to return to [place]. 06/11/25: Passively engaged in conversation while in bed sleeping/resting. Able to answer question appropriately, but seems to be minimized. Denies SI/SIB/HI/AVH. He slept 5 hours last night, spent most of the day in bed sleeping. Attempted to no groups, observed out to the afternoon in the subramanian near the nurse station. No change in presentation. Encourage groups,up and engaged in groups. 06/12: not engaging. no complaints or questions re med changes. cross-taper zyprexa in favor of invega, give MONTERO invega. tonight, decrease zyprexa to 15 mg and start invega 3 mg. otherwise continue current mgmt. 06/13: continues avoidant and disengaged. denies side effects from med change last night. informed cross-titration will advance tonight. decrease zyprexa to 10 mg tonight, increase paliperidone to 6 mg. plan to continue by 5 mg zyprexa and 3 mg paliperidone increments every several days as tolerated until zyprexa DCed and paliperidone at 12 mg QHS. once it is established pt is tolerating PO Paliperidone, invega sustenna to be administered. 06/14: Continue current regimen and plans 06/15: Continue current plans and regimen 06/16: irritable re neuroleptic change. denies side effects or problems with it, however. minimally engageable. increase invega to 9 QHS and decrfease zyprexa to 5 QHS. 06/17/25: Continued to be irritable regarding medication change/titration. However engaged in conversation, hyper verbal, paranoid, reports medication slow his thoughts down and he does not not like it. Poor insight and poor judgment. He thinks he only need lithium, not other medications. Remind patient to continue doing the sleep pattern changing. However his in bed mostly this morning. Slept for 4-5 hours last night. 06/18/25: Slept for 5 hours last night as he continues sleeping during daytime. Compliant with meds, did not c/o side effects.Passingly engaging in assessment. Denies safety concerns. Tolerate the tritation well. Will increase Inveag up to max of 12 tomorrow and Discontinue Olanzepine at HS. Continue to encourage up and out on day so he can sleep better at HS. 06/19/25: Patient slept for 5.5 hours last night, was medication compliant, mostly in his room yesterday but seen more often in the evening. Patient is awake in his room, listen to music, his morning tray was taken away and clean the area. He is very pleasant to talk to today, reports he feels good, denies side effects from medications, denies any safety concerns. Denies feeling sedation, denies anxiety/depression. He is receptive with the plan of medication over the weekends and next week, happy to hear about the medication plan. He also agree with the MONTERO Invega Sustenna on Monday. Encourage him to go out and attended to groups, he said that he will. Reported that he was out for groups a couple of times last week. Discontinue Haldol p.r.n.. Discontinue scheduled Zyprexa 5 mg at bedtime. Only on 10 Zyprexa at g IM daily p.r.n. as backup orders if refused Invega. Invega 12 mg at bedtime. Plan to monitor over the weekends and will give long- acting injection on Monday if tolerate with the p.o. well Reduce Seroquel 200 mg p.r.n. at bedtime to 100 p.r.n. at bedtime for insomnia. Seroquel 50 mg b.i.d. p.r.n. for agitation. Discontinue Motrin. Patient on lithium. Labs were for MondayJune 20: CMP, TSH with free T4. 06/20/25: In bed most of the day, was compliant with medication, however refused labs work. Re- scheduled for Monday. Continue with Invega 12 mg at bedtime. We will reassess and offer long-acting injection on Monday. Continue to encourage patient to get up and go to some groups. No safety concerns expressed. Minimal peer and staff interaction. 06/21: no change in presentation. start MONTERO monday. no s/e from invega. otherwise continue current mgmt. 06/22: stable. continue current mgmt. 06/23/25: More awake and alert. Review with patient regarding policy for his phone use BID 30min each time, patient is educated on compliant with policy. He asks for more 5-10 min extra headphone use at night on the weekends after 0. Once again, redirected for unit rules. He agrees with MONTERO which is scheduled today. Discontinue Invega PO Invega Sustenna 234mg IM once. Will monitor for possible side effects and sedation. Will offer 156mg after 1 week. If mentaly stable with 156mg, will maintain at this dose, if not will offer 234mg Monthly. 06/24/25: Slept for 5 hours last night, but also went to bed around 7 tonight p.m. last night per his report. He also attended to groups in the afternoon yesterday. Compliant with medications. No side effects from Invega Sustenna. He is engaged in full conversation today why he is in bed, denies safety concerns. Observe he is on the unit, social with peers and staff in longer period of time. Appeared to be happy. He plans to take shower today. Reported that he was up early but he does not feel hungry in the morning. He is making progress, not too sedated during daytime since switching his medication. Appears to do well so far with Invega Sustenna. 06/25/25: Patient slept for 4 hours last night, however he reported was napping in the afternoon for couple hours which affect his sleeping pattern at night. Educate patient to not napping late in the evening. He is receptive. Compliant with medications, no side effects. He reports his did not shower yesterday but he will today. He is awake in his room not sleeping, engage in full conversation, no delusional or paranoid statements make. He is visible at times. Continued to improve in mood, engaging in other activities on the unit. Denies other safety concerns. Denies hallucinations. No irritability mood, not sedated during day time compared to when he was taking olanzapine. We will schedule Invega Sustenna 156 next Monday. Work with pillar worker to see where he will return to. He probably needs [facility] to manage medication. 06/26/25: He slept for 5 hours, compliant with medications. Denies side effects. He self-reported that he went to bed last night and was able to fall asleep by 01:00 and able to stay asleep whole night. Denies safety concerns. I spoke with him in length today regarding aftercare. He thinks he will go to the hospital in [place] to ask them regarding his heart condition. He thinks people was lying to get him to the hospital as he does not have mental health illnesses. He believes that he has been exactly the same he was seen he was a little, and at he able to remember everything in the past. He also reports that he used to use [facility] in [place]. At he does not want [facility] application. I explained to him that in order to be a candidate patient have to be a safe that he has mental health issues, so people can submit the application, and from the [facility] worker will contact him to do assessment if he qualify for any services that they can provide. Patient is receptive application, pillar worker was notified. Patient also would like to have services with [facility] in [place]. He showered yesterday morning, did not go to groups yesterday, but he will go to some groups today per his plan for the day, more awake, engaged in conversation, no irritability. However, continued to be poor insight of his illnesses. He does not want to return to his brother I have not talking to him for since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
[2025-07-16 20:00] VITALS: BP 122/59; PULSE 90; RESP 16; TEMP 37.5; O2SAT 99
[2025-07-16] MEDS: EXCEDRIN 2 EACH PO (22:13)
--- NOTE | 2025-07-17 12:25 | HO.PSYCHPN ---
Subjective Subjective Date of Service: 07/17/25 Reason For Visit: psychotic disorder Interim History: sleeping in bed, rousable. no complaints or questions. informed DM will be visiting tomorrow. pt expressed understanding. per staff, no change in presentation. taking seroquel PRN for sleep. Mental Status Exam Mental Status Exam Narrative: in bed. fair eye contact with exopthalmos. No PMA/PMR. cooperative. speech decr rate and amount and loudness. thoughts linear and logical. affect constricted, normo-intense. mood not assessed. no questions or complaints. No SI/SIB/HI/AVH expressed. Diagnostics Vital Signs (24Hr): Vital Signs - 24 hr 07/16/25 20:00 Temperature 99.5 F Pulse Rate 90 Respiratory Rate 16 Blood Pressure 122/59 L Pulse Oximetry 99 Oxygen Delivery Method Room Air BMI result Body Mass Index 23.2 Labs 06/25/25 08:02 06/20/25 20:35 Medications Medications Current Medications Acetaminophen (Acetaminophen 325 Mg Tablet) 650 mg PO Q4H PRN PRN Reason: Pain, Mild (Pain Scale 1-3) Last Admin: 07/06/25 22:53 Dose: 650 mg Al Hydroxide/Mg Hydroxide (Magnesium Hydrox/Alum Hydrox 30 Ml Oral.Susp) 30 ml PO Q6H PRN PRN Reason: Heart burn Benzocaine (Benzocaine 20 % Oral Gel 14 Gm Tube) 1 appl MUCOUS MEM QID PRN; Protocol PRN Reason: Mouth Sore Pain Last Admin: 04/26/25 18:33 Dose: 1 appl Diazepam (Diazepam 10 Mg/2 Ml Cartridge) 10 mg IM BID PRN PRN Reason: refusal of lithium, mary floyd Last Admin: 04/11/25 09:56 Dose: 10 mg Glycopyrrolate (Glycopyrrolate 1 Mg Tablet) 1 mg PO BID [facility] Last Admin: 07/17/25 09:03 Dose: 1 mg Hydrocortisone (Hydrocortisone 1 % Cream 28.35 Gm Tube) 1 appl TOPICAL DAILY PRN; Protocol PRN Reason: rash Last Admin: 07/15/25 18:10 Dose: 1 appl [place] Carbonate ([place] Carbonate Er 300 Mg Tablet.Er) 600 mg PO DAILY [facility] Last Admin: 07/17/25 09:03 Dose: 600 mg [place] Carbonate ([place] Carbonate Er 450 Mg Tablet.Er) 900 mg PO DAILY@2300 [facility] Last Admin: 07/16/25 22:26 Dose: 900 mg Magnesium Hydroxide (Milk Of Magnesia 30 Ml Oral.Susp) 30 ml PO DAILY PRN PRN Reason: Constipation Methimazole (Methimazole 10 Mg Tablet) 10 mg PO DAILY [facility] Last Admin: 07/17/25 09:03 Dose: 10 mg Nicotine (Nicotine 21 Mg Patch.Td24) 21 mg TRANSDERMA DAILY PRN PRN Reason: nicotine cravings Last Admin: 04/12/25 17:06 Dose: 21 mg Nicotine Polacrilex (Nicotine Polacrilex Lozenge 2 Mg Lozenge) 2 mg BUCCAL Q1H PRN PRN Reason: Nicotine Cravings Last Admin: 04/30/25 08:49 Dose: 2 mg Patient Own Medication Excedrin 250/250/65mg 2 each PO Q8H PRN PRN Reason: Migraine Headache Last Admin: 07/16/25 22:13 Dose: 2 each Olanzapine (Olanzapine 10 Mg Vial) 10 mg IM DAILY PRN PRN Reason: if refuse Invega PO Paliperidone Palmitate (Paliperidone Palmitate 234 Mg/1.5 Ml Syringe) 234 mg IM Q30D [facility] Pseudoephedrine HCl (Pseudoephedrine Hcl 30 Mg Tablet) 30 mg PO Q6H PRN PRN Reason: Congestion Last Admin: 07/03/25 21:18 Dose: 30 mg Quetiapine Fumarate (Quetiapine Fumarate 100 Mg Tablet) 100 mg PO BEDTIME PRN PRN Reason: insomnia Quetiapine Fumarate (Quetiapine Fumarate 50 Mg Tablet) 50 mg PO BID PRN PRN Reason: agitation Last Admin: 07/16/25 22:28 Dose: 50 mg Sodium Chloride (Sodium Chloride 0.65 % Nasal 44 Ml Sprbtl) 1 spray NOSTRIL-B Q4H PRN PRN Reason: Congestion Last Admin: 07/03/25 23:03 Dose: 1 spray Allergies Allergies Allergy/AdvReac Type Severity Reaction Status Date / Time No Known Allergies Allergy Verified 03/26/25 14:24 Assessment & Plan Assessment & Plan (1) Graves disease: Status: Acute Code(s): E05.00 - Thyrotoxicosis with diffuse goiter without thyrotoxic crisis or storm Assessment and Plan: Hyperthyroidism/Graves disease. He will need follow up with endocrinology as an outpatient He will also need a primary care doctor referral as an outpatient Discussed with Dr. Bejarano, patient will need free T4 weekly Decrease Methimazole to 15 mgs daily for three days and then 10 mgs daily- discussed with patient he is aware of plan and rationale. TSH and free T4 every 4 weeks. No need to draw thyroid stimulation immunology or TSH receptor AB (2) Dental abscess: Status: Acute Code(s): K04.7 - Periapical abscess without sinus Assessment and Plan: Carious tooth/dental infection Recently treated with PEN VK 500 mg q.6 hours for 7 days Patient will need follow up with dentist on discharge for tooth extraction Motrin helping pain. (3) Becca: Status: Acute Code(s): F30.9 - Manic episode, unspecified Plan 03/26: offer lithium and seroquel for becca. continue methimazole and beta joanne for hyperthyroidism as started at [facility] [place]. trend TFTs. 12b. 03/27: taking methimazole and beta joanne. refused HS meds last night, took morning meds today. continue to encourage medication compliance. 03/28: intermittently taking meds. wants all meds in morning. pressured, manic, paranoid delusions. encouraged to take lithium but states he will not. all meds ordered for morning. 03/29: Keeping to self. no groups. observed laying in bed listening to music on unit headphones. pleasant. Pt reports feeling good today and sleeping well. declined lithium and zyprexa. denies SI/HI/VH/AH. continue current tx plan. 03/30:Irritable. upset he was unable to use his personal hygiene products. Per nursing, pt threatened staff and squeezed tooth paste throughout unit hallway to show his frustration. Pt was able to calm down after speaking with security. declined medications. 03/31: Keeping to self. laying in bed listening to music. refused medications. calm today. Patient reports feeling great ; pt stated, nothing is wrong with me. I'm waiting so I can leave tomorrow. I'm hoping for the best . denies SI/HI/VH/AH. per nursing, slept 6 hours. Continue current tx plan. 04/01: variably calm on the unit versus highly agitated. paranoid delusions, irritability, lability continue. seems to believe MD has met him prior to the present hospitalization and is stalking him. believes brother behind conspiracy to have him psychiatrically hospitalized. has been refusing all medications, including for hyperthyroidism. informed he would be filed on. filed. continue to offer medications. 04/02: continues agitated, belittling, verbally aggressive, refusing all medications including for hyperthyroidism. continue to offer medication. 04/03: paranoid there is a conspiracy to hospitalize him. threatening to stick a stick in staff once he is released by night auditor. insists his hyperthyroidism was cured at [facility]. asserts there is NOTHING wrong with him. continue to offer medication. 04/04: irritable, rejecting. verbally abuses MD and sends him away: see you on monday [in court]. continue to offer medication for thyroid condition and mental illness. 04/05 continue tx. suspicious and guarded, accusatory, verbal threats to hurt staff and peers 04/06 intrusive, posturing towards staff and peer who he thinks is not real and is an impostor, continues to make verbal threats to harm him but thinks that because he is not real he may not experience any pain. 04/07: threatening statements and behaviors of yesterday noted. pt sleeping this morning, dismissive of MD. 04/08: asleep days. committed and meds ordered by court. 04/09: on being informed of court order and MD insisting on meds, pt escalated to hurling food item in container against wall at high speed and saying he wished he could do the same to MD's head. pt eventually took court ordered meds PO. sensodyne and excedrin not available in pharmacy (pt requesting them). 04/10: continue tx. Pt accepting medication today. 04/11: Keeping to self. Lying in bed most of morning. Declined to meet with T/W. Pt stated, I'm fine. I don't need anything . Listening to headphones in room. Declined court ordered PO medications; received IM medications. Refused vital signs.continue tx plan. 04/12: got IMs yesterday, took PO this morning. sleepy, no concerns or complaints. 04/13: taking PO meds again. slept 7 hours. sleepy again mid morning refusing interview. continue current mgmt. 6/9: sleeping, rousable. denies being sedated or tired, says he's just bored. no questions or complaints. informed of need to check labs. check lithium level and thyroid labs tonight. 04/15: refusing labs. delusional re his brother harming him. verbally abusive toward MD. spat in floor. happy with improvement in proptosis. 04/16: Lying in bed. Calm. cooperative. guarded. Pt reports feeling tired this morning d/t poor sleep last night. Pt stated, I don't need anything. I didn't sleep well so I'm trying to catch up . denies any issues at this time. denies SI/HI/VH/AH. Continue current tx plan. 04/17: more calm today, less explosive. continue current mgmt. 04/18: continues more calm. tolerating moments of frustration without verbally attacking MD. slept only 2 hours overnight, however. continue current mgmt. 04/19 continues to push boundaries and limits with staff mike around cell phone- 04/20 - aggressive with staff and unpredictable- threw water pitcher at staff behind desk/-when seen by provider passive in bed-denying all compaints/sys- no insight 04/21: appears as per last week. more difficult behaviors around cell phone use, did throw pitcher of water at RN monday over phone use and was restrained. continue current mgmt. 04/22: continues to have conflict around cell phone use. consolidate zyprexa at HS to decrease daytime sedation. 1:1 allegra shift until peer he is accusing of not being a real patient and appears to be targeting discharges tomorrow. 04/23: lithium 0.6 on 600 BID. sleeping better, remains delusional (telling SW who is marginally younger than him that she could be his daughter). just changed zyprexa dosing as of last night. continue current regimen and observe for continued stabilization. T/C slight increase in lithium dosing. 04/24: Laying in bed. guarded. calm. did not want to get out of bed to meet with T/W. Pt reports feeling great today but declined to go into detail. listening to music on unit headphones. Pt stated, I'm fine. I don't need anything . denies any issues at this time. denies SI/HI/VH/AH. Continue current tx plan. 04/25: Laying in bed. keeping to self. calm. paranoid. Discussed incident that occurred with staff last evening. Pt stated, the counselor made up a lie yesterday. I said she looks like my ex-girlfriend. I know they are related. They want to make up a lie to irritate me. They are trying to talk to me so they can use recording devices and make me look some kind of way . listening to music on unit headphones. denies SI/HI/VH/AH. Continue current tx plan. 04/26: Continue current regimen and plans. Increase Zyprexa 20 mg q.h.s. fresh air break withheld 04/27: Continue current regimen and plans 04/28: somewhat less irritable and agitated than last week. however, over the weekend was claiming he was the father of a footballer on TV and also that a staff member is a twin of his ex-GF (and he pushed staff member). TFTs improving. continue current mgmt. 04/29: no change in presentation. continue current mgmt. 04/30: no irritable edge today. calm, pleasant. engaging in small talk. reality testing not pressed. continue current mgmt for now. 05/01: no change in presentation. continue current mgmt. 05/02: BPs coming down, DC beta joanne as pt has been refusing anyway. remains not antagonistic toward MD. using phone appropriately. continue current mgmt otherwise. 05/03 continue 05/04: remains delusional, irritable/labile when delusional system confronted. declines to sign TOMMY for [facility] records. continue current mgmt. 05/06: declining to meet with MD, but does meet with medical student. remains upset about yesterday's confrontation re his delusional system. 05/07: Active on unit. keeping to self. pacing unit hallway while listening to unit headphones. medication compliant. patient reports feeling good ; pt stated, I'm just waiting to leave here. I want to return to my life and do things like go grocery shopping . denies SI/HI/VH/AH. Continue current tx plan. 05/08: stable presentation, delusions not being brought to the surface daily. remains affectively improved from admission. continue current mgmt. 05/09: calm, pleasant. no questions or complaints. continue current mgmt. 05/10: no change in presentation. due to lack of improvement in dental infection Sx, DC PCN and start augmentin. 05/11: no change in presentation. continue current mgmt. 05/12: as for yesterday. dental pain improving a bit. 05/13: expressed to medical student that his brother poisoned him, causing his thyroid disease. no change in presentation. continue current mgmt. 05/14: Pacing unit hallway. keeping to self. patient reports feeling good today; denies any issues at this time. denies SI/HI/VH/AH. per nursing, slept 5 hours. Continue current tx plan. 05/15: slept 6 hours. otherwise isolative, difficult to engage. continue current mgmt. 05/16: slept 7 hours. as for yesterday otherwise. 05/17/25: Slept well, no issue with appetite, skinny and pretty tall. Compliant with medication. No side effects Calm and pleasant upon approach. Some what paranoid. Tangential, however denies other safety concerns. Questions if he is discharging soon. He is on antibiotic for 7 days for mouth pain/tooth pain. We will finish the 7 course up in antibiotic after tonight dose. Then discontinue. 05/18/25: Slept for 5 hours plus hours this morning. In bed most of the shift, no behavior issues. Denies other safety concerns. 05/19: in bed days, up eves. no change in presentation. continue current mgmt. 05/20: no change in presentation. check labs. 05/21: lithium low, TFTs mixed and not all back. increase lithium from 600 BID to 600/900. trend BUN/Cr, with slight elevation. otherwise continue current mgmt. 05/22: no change in presentation. continue current mgmt. 05/23: does not deny someone stole his sperm and impregnated his landlord's child with it. irritable. c/o dental pain, antibx restarted. otherwise continue current mgmt. 05/14: no change in mgt 05/25: more isolative today; no change in mgt 05/26: decreases in methimazole noted. continue psych regimen as is. pt refused to interact with MD today. 05/27: i'm sleeping. no change in presentation. labs tonight. 05/28: no change in behavior. lithium 0.66, BUN stable. continue current mgmt. 05/29: irritable. continue current mgmt. 05/30: no longer in single room. still not engaging, sleeping days. continue current mgmt. 05/31:laying in bed. declined to meet with T/W. pt stated, I want to sleep. I didn't sleep enough . Pt encouraged to reach out to staff if he needs anything. Continue current tx plan. 06/01: Similar to yesterday. laying in bed. Irritable. declined to meet with T/W and pulled bed sheets over head. pt stated, I don't want to talk. I want to sleep . difficult to engage. Continue current tx plan. 06/02: Similar to yesterday. laying in bed. Irritable. declined to meet with T/W. Observed getting drink from kitchen; T/W approached pt and asked if they could speak. patient declined to acknowledge T/W and walked past. Continue current tx plan. 06/03: no change in behavior. continue tx plan. 06/04/25: Passive engaged in the assessment, in bed mostly sleeping this morning which could be interfere with his nighttime. Cover body under the blanket Slept for 4-5 hours last night. Was medication compliant, attended no groups, isolative to self in room. No SI/SIB/HI/AVH expressed. 06/05: continue tx plan. 06/06: reports feeling fine ; continues guarded. difficult to engage. declining to meet with T/W. continue tx plan. 06/07/25: Slept for 4 hours at night, but has been sleeping most of the day yesterday as well. Spent majority of the shift in bed, was medication compliant. Passive engaged in the conversation. He said he will try to change the sleeping pattern so that he can be awake more during the daytime. Appear to be sedated in the morning. No safety behavior. 06/08/25: Slept for 3-4 hours last night, compliant with medications. Denies side effects, denies other safety concerns. Continued to encourage patient to up and down more than on the unit he spent most of the day sleeping. He is pleasant upon approach. No other behavior issues. Denied voices/hallucinations. Suicide thoughts or homicidal thoughts. 8/4: sleeping, minimally rousable. denies problems. continue current mgmt. 06/10: sleeping all day, up most of the night. minimally rousable. denies problems. continue current mgmt. per JAMAICA Arrington: Jean said when he leaves he can return to [facility]. he was living with a lady there and can go back. He plans to get a job to pay off his debt. He said he owes money because they sent him back here due to losing his passport and he owes them money for the temporary emergency passport and the flight back to the . so his main focus is to get a job. he said he will try things here first and if it doesn't work out he plans to return to [place]. 06/11/25: Passively engaged in conversation while in bed sleeping/resting. Able to answer question appropriately, but seems to be minimized. Denies SI/SIB/HI/AVH. He slept 5 hours last night, spent most of the day in bed sleeping. Attempted to no groups, observed out to the afternoon in the subramanian near the nurse station. No change in presentation. Encourage groups,up and engaged in groups. 06/12: not engaging. no complaints or questions re med changes. cross-taper zyprexa in favor of invega, give MONTERO invega. tonight, decrease zyprexa to 15 mg and start invega 3 mg. otherwise continue current mgmt. 06/13: continues avoidant and disengaged. denies side effects from med change last night. informed cross-titration will advance tonight. decrease zyprexa to 10 mg tonight, increase paliperidone to 6 mg. plan to continue by 5 mg zyprexa and 3 mg paliperidone increments every several days as tolerated until zyprexa DCed and paliperidone at 12 mg QHS. once it is established pt is tolerating PO Paliperidone, invega sustenna to be administered. 06/14: Continue current regimen and plans 06/15: Continue current plans and regimen 06/16: irritable re neuroleptic change. denies side effects or problems with it, however. minimally engageable. increase invega to 9 QHS and decrfease zyprexa to 5 QHS. 06/17/25: Continued to be irritable regarding medication change/titration. However engaged in conversation, hyper verbal, paranoid, reports medication slow his thoughts down and he does not not like it. Poor insight and poor judgment. He thinks he only need lithium, not other medications. Remind patient to continue doing the sleep pattern changing. However his in bed mostly this morning. Slept for 4-5 hours last night. 06/18/25: Slept for 5 hours last night as he continues sleeping during daytime. Compliant with meds, did not c/o side effects.Passingly engaging in assessment. Denies safety concerns. Tolerate the tritation well. Will increase Inveag up to max of 12 tomorrow and Discontinue Olanzepine at HS. Continue to encourage up and out on day so he can sleep better at HS. 06/19/25: Patient slept for 5.5 hours last night, was medication compliant, mostly in his room yesterday but seen more often in the evening. Patient is awake in his room, listen to music, his morning tray was taken away and clean the area. He is very pleasant to talk to today, reports he feels good, denies side effects from medications, denies any safety concerns. Denies feeling sedation, denies anxiety/depression. He is receptive with the plan of medication over the weekends and next week, happy to hear about the medication plan. He also agree with the MONTERO Invega Sustenna on Monday. Encourage him to go out and attended to groups, he said that he will. Reported that he was out for groups a couple of times last week. Discontinue Haldol p.r.n.. Discontinue scheduled Zyprexa 5 mg at bedtime. Only on 10 Zyprexa at g IM daily p.r.n. as backup orders if refused Invega. Invega 12 mg at bedtime. Plan to monitor over the weekends and will give long-acting injection on Monday if tolerate with the p.o. well Reduce Seroquel 200 mg p.r.n. at bedtime to 100 p.r.n. at bedtime for insomnia. Seroquel 50 mg b.i.d. p.r.n. for agitation. Discontinue Motrin. Patient on lithium. Labs were for MondayJune 20: CMP, TSH with free T4. 06/20/25: In bed most of the day, was compliant with medication, however refused labs work. Re- scheduled for Monday. Continue with Invega 12 mg at bedtime. We will reassess and offer long-acting injection on Monday. Continue to encourage patient to get up and go to some groups. No safety concerns expressed. Minimal peer and staff interaction. 06/21: no change in presentation. start MONTERO monday. no s/e from invega. otherwise continue current mgmt. 06/22: stable. continue current mgmt. 06/23/25: More awake and alert. Review with patient regarding policy for his phone use BID 30min each time, patient is educated on compliant with policy. He asks for more 5-10 min extra headphone use at night on the weekends after 0. Once again, redirected for unit rules. He agrees with MONTERO which is scheduled today. Discontinue Invega PO Invega Sustenna 234mg IM once. Will monitor for possible side effects and sedation. Will offer 156mg after 1 week. If mentaly stable with 156mg, will maintain at this dose, if not will offer 234mg Monthly. 06/24/25: Slept for 5 hours last night, but also went to bed around 7 tonight p.m. last night per his report. He also attended to groups in the afternoon yesterday. Compliant with medications. No side effects from Invega Sustenna. He is engaged in full conversation today why he is in bed, denies safety concerns. Observe he is on the unit, social with peers and staff in longer period of time. Appeared to be happy. He plans to take shower today. Reported that he was up early but he does not feel hungry in the morning. He is making progress, not too sedated during daytime since switching his medication. Appears to do well so far with Invega Sustenna. 06/25/25: Patient slept for 4 hours last night, however he reported was napping in the afternoon for couple hours which affect his sleeping pattern at night. Educate patient to not napping late in the evening. He is receptive. Compliant with medications, no side effects. He reports his did not shower yesterday but he will today. He is awake in his room not sleeping, engage in full conversation, no delusional or paranoid statements make. He is visible at times. Continued to improve in mood, engaging in other activities on the unit. Denies other safety concerns. Denies hallucinations. No irritability mood, not sedated during day time compared to when he was taking olanzapine. We will schedule Invega Sustenna 156 next Monday. Work with social science teacher to see where he will return to. He probably needs [facility] to manage medication. 06/26/25: He slept for 5 hours, compliant with medications. Denies side effects. He self-reported that he went to bed last night and was able to fall asleep by 01:00 and able to stay asleep whole night. Denies safety concerns. I spoke with him in length today regarding aftercare. He thinks he will go to the hospital in [place] to ask them regarding his heart condition. He thinks people was lying to get him to the hospital as he does not have mental health illnesses. He believes that he has been exactly the same he was seen he was a little, and at he able to remember everything in the past. He also reports that he used to use [employer] in [place]. At he does not want [facility] application. I explained to him that in order to be a candidate patient have to be a safe that he has mental health issues, so people can submit the application, and from the [facility] worker will contact him to do assessment if he qualify for any services that they can provide. Patient is receptive application, social science teacher was notified. Patient also would like to have services with [facility] in [place]. He showered yesterday morning, did not go to groups yesterday, but he will go to some groups today per his plan for the day, more awake, engaged in conversation, no irritability. However,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
[2025-07-17 20:00] VITALS: BP 133/78; PULSE 91; RESP 16; TEMP 36.5; O2SAT 99
[2025-07-17] MEDS: Hydrocortisone 1 % Cream 28.35 GM TUBE 1 APPL TOPICAL (23:13)
[2025-07-18 08:00] VITALS: RESP 16
--- NOTE | 2025-07-18 14:12 | P.PNPSI_ITS ---
Subjective Subjective Date of Service: 07/18/25 Reason For Visit: psychotic disorder Interim History: no change in presentation. met with [facility] today. reports they told him they will have a respite bed for him in the next 2 weeks. per staff, no change. wants to get CDL license. slept well. [facility] here today. Mental Status Exam Mental Status Exam Narrative: in bed. fair eye contact with exopthalmos. No PMA/PMR. cooperative. speech nml rate, decr amount and loudness. thoughts linear and logical. affect constricted, normo-intense. mood not assessed. no questions or complaints. No SI/SIB/HI/AVH expressed. Diagnostics Vital Signs (24Hr): Vital Signs - 24 hr 07/17/25 20:00 07/18/25 08:00 Temperature 97.7 F Pulse Rate 91 Respiratory Rate 16 16 Blood Pressure 133/78 Pulse Oximetry 99 Oxygen Delivery Method Room Air BMI result Body Mass Index 23.2 Labs 06/25/25 08:02 06/20/25 20:35 Medications Medications Current Medications Acetaminophen (Acetaminophen 325 Mg Tablet) 650 mg PO Q4H PRN PRN Reason: Pain, Mild (Pain Scale 1-3) Last Admin: 07/06/25 22:53 Dose: 650 mg Al Hydroxide/Mg Hydroxide (Magnesium Hydrox/Alum Hydrox 30 Ml Oral.Susp) 30 ml PO Q6H PRN PRN Reason: Heart burn Benzocaine (Benzocaine 20 % Oral Gel 14 Gm Tube) 1 appl MUCOUS MEM QID PRN; Protocol PRN Reason: Mouth Sore Pain Last Admin: 04/26/25 18:33 Dose: 1 appl Diazepam (Diazepam 10 Mg/2 Ml Cartridge) 10 mg IM BID PRN PRN Reason: refusal of lithium, per [place] Last Admin: 04/11/25 09:56 Dose: 10 mg Glycopyrrolate (Glycopyrrolate 1 Mg Tablet) 1 mg PO BID [facility] Last Admin: 07/18/25 09:10 Dose: 1 mg Hydrocortisone (Hydrocortisone 1 % Cream 28.35 Gm Tube) 1 appl TOPICAL DAILY PRN; Protocol PRN Reason: rash Last Admin: 07/17/25 23:13 Dose: 1 appl Candelero Abajo Carbonate (Candelero Abajo Carbonate Er 300 Mg Tablet.Er) 600 mg PO DAILY KRISTAL Last Admin: 07/18/25 09:10 Dose: 600 mg Candelero Abajo Carbonate (Candelero Abajo Carbonate Er 450 Mg Tablet.Er) 900 mg PO DAILY@2300 KRISTAL Last Admin: 07/17/25 23:08 Dose: 900 mg Magnesium Hydroxide (Milk Of Magnesia 30 Ml Oral.Susp) 30 ml PO DAILY PRN PRN Reason: Constipation Methimazole (Methimazole 10 Mg Tablet) 10 mg PO DAILY KRISTAL Last Admin: 07/18/25 09:10 Dose: 10 mg Nicotine (Nicotine 21 Mg Patch.Td24) 21 mg TRANSDERMA DAILY PRN PRN Reason: nicotine cravings Last Admin: 04/12/25 17:06 Dose: 21 mg Nicotine Polacrilex (Nicotine Polacrilex Lozenge 2 Mg Lozenge) 2 mg BUCCAL Q1H PRN PRN Reason: Nicotine Cravings Last Admin: 04/30/25 08:49 Dose: 2 mg Patient Own Medication Excedrin 250/250/65mg 2 each PO Q8H PRN PRN Reason: Migraine Headache Last Admin: 07/16/25 22:13 Dose: 2 each Olanzapine (Olanzapine 10 Mg Vial) 10 mg IM DAILY PRN PRN Reason: if refuse Invega PO Paliperidone Palmitate (Paliperidone Palmitate 234 Mg/1.5 Ml Syringe) 234 mg IM Q30D KRISTAL Pseudoephedrine HCl (Pseudoephedrine Hcl 30 Mg Tablet) 30 mg PO Q6H PRN PRN Reason: Congestion Last Admin: 07/03/25 21:18 Dose: 30 mg Quetiapine Fumarate (Quetiapine Fumarate 100 Mg Tablet) 100 mg PO BEDTIME PRN PRN Reason: insomnia Quetiapine Fumarate (Quetiapine Fumarate 50 Mg Tablet) 50 mg PO BID PRN PRN Reason: agitation Last Admin: 07/17/25 23:11 Dose: 50 mg Sodium Chloride (Sodium Chloride 0.65 % Nasal 44 Ml Sprbtl) 1 spray NOSTRIL-B Q4H PRN PRN Reason: Congestion Last Admin: 07/03/25 23:03 Dose: 1 spray Allergies Allergies Allergy/AdvReac Type Severity Reaction Status Date / Time No Known Allergies Allergy Verified 03/26/25 14:24 Assessment & Plan Assessment & Plan (1) Graves disease: Status: Acute Code(s): E05.00 - Thyrotoxicosis with diffuse goiter without thyrotoxic crisis or storm Assessment and Plan: Hyperthyroidism/Graves disease. He will need follow up with endocrinology as an outpatient He will also need a primary care doctor referral as an outpatient Discussed with Dr. Bejarano, patient will need free T4 weekly Decrease Methimazole to 15 mgs daily for three days and then 10 mgs daily- discussed with patient he is aware of plan and rationale. TSH and free T4 every 4 weeks. No need to draw thyroid stimulation immunology or TSH receptor AB (2) Dental abscess: Status: Acute Code(s): K04.7 - Periapical abscess without sinus Assessment and Plan: Carious tooth/dental infection Recently treated with PEN VK 500 mg q.6 hours for 7 days Patient will need follow up with dentist on discharge for tooth extraction Motrin helping pain. (3) Becca: Status: Acute Code(s): F30.9 - Manic episode, unspecified Plan 03/26: offer lithium and seroquel for becca. continue methimazole and beta joanne for hyperthyroidism as started at [facility]. trend TFTs. 12b. 03/27: taking methimazole and beta joanne. refused HS meds last night, took morning meds today. continue to encourage medication compliance. 03/28: intermittently taking meds. wants all meds in morning. pressured, manic, paranoid delusions. encouraged to take lithium but states he will not. all meds ordered for morning. 03/29: Keeping to self. no groups. observed laying in bed listening to music on unit headphones. pleasant. Pt reports feeling good today and sleeping well. declined lithium and zyprexa. denies SI/HI/VH/AH. continue current tx plan. 03/30:Irritable. upset he was unable to use his personal hygiene products. Per nursing, pt threatened staff and squeezed tooth paste throughout unit hallway to show his frustration. Pt was able to calm down after speaking with security. declined medications. 03/31: Keeping to self. laying in bed listening to music. refused medications. calm today. Patient reports feeling great ; pt stated, nothing is wrong with me. I'm waiting so I can leave tomorrow. I'm hoping for the best . denies SI/HI/VH/AH. per nursing, slept 6 hours. Continue current tx plan. 04/01: variably calm on the unit versus highly agitated. paranoid delusions, irritability, lability continue. seems to believe MD has met him prior to the present hospitalization and is stalking him. believes brother behind conspiracy to have him psychiatrically hospitalized. has been refusing all medications, including for hyperthyroidism. informed he would be filed on. filed. continue to offer medications. 04/02: continues agitated, belittling, verbally aggressive, refusing all medications including for hyperthyroidism. continue to offer medication. 04/03: paranoid there is a conspiracy to hospitalize him. threatening to stick a stick in staff once he is released by room inspector. insists his hyperthyroidism was cured at [facility]. asserts there is NOTHING wrong with him. continue to offer medication. 04/04: irritable, rejecting. verbally abuses MD and sends him away: see you on monday [in court]. continue to offer medication for thyroid condition and mental illness. 04/05 continue tx. suspicious and guarded, accusatory, verbal threats to hurt staff and peers 04/06 intrusive, posturing towards staff and peer who he thinks is not real and is an impostor, continues to make verbal threats to harm him but thinks that because he is not real he may not experience any pain. 04/07: threatening statements and behaviors of yesterday noted. pt sleeping this morning, dismissive of MD. 04/08: asleep days. committed and meds ordered by court. 04/09: on being informed of court order and MD insisting on meds, pt escalated to hurling food item in container against wall at high speed and saying he wished he could do the same to MD's head. pt eventually took court ordered meds PO. sensodyne and excedrin not available in pharmacy (pt requesting them). 04/10: continue tx. Pt accepting medication today. 04/11: Keeping to self. Lying in bed most of morning. Declined to meet with T/W. Pt stated, I'm fine. I don't need anything . Listening to headphones in room. Declined court ordered PO medications; received IM medications. Refused vital signs.continue tx plan. 04/12: got IMs yesterday, took PO this morning. sleepy, no concerns or complaints. 04/13: taking PO meds again. slept 7 hours. sleepy again mid morning refusing interview. continue current mgmt. 04/14: sleeping, rousable. denies being sedated or tired, says he's just bored. no questions or complaints. informed of need to check labs. check lithium level and thyroid labs tonight. 04/15: refusing labs. delusional re his brother harming him. verbally abusive toward MD. spat in floor. happy with improvement in proptosis. 04/16: Lying in bed. Calm. cooperative. guarded. Pt reports feeling tired this morning d/t poor sleep last night. Pt stated, I don't need anything. I didn't sleep well so I'm trying to catch up . denies any issues at this time. denies SI/HI/VH/AH. Continue current tx plan. 04/17: more calm today, less explosive. continue current mgmt. 04/18: continues more calm. tolerating moments of frustration without verbally attacking MD. slept only 2 hours overnight, however. continue current mgmt. 04/19 continues to push boundaries and limits with staff mike around cell phone- 04/20 - aggressive with staff and unpredictable- threw water pitcher at staff behind desk/-when seen by provider passive in bed-denying all compaints/sys- no insight 04/21: appears as per last week. more difficult behaviors around cell phone use, did throw pitcher of water at RN monday over phone use and was restrained. continue current mgmt. 04/22: continues to have conflict around cell phone use. consolidate zyprexa at HS to decrease daytime sedation. 1:1 allegra shift until peer he is accusing of not being a real patient and appears to be targeting discharges tomorrow. 04/23: lithium 0.6 on 600 BID. sleeping better, remains delusional (telling SW who is marginally younger than him that she could be his daughter). just changed zyprexa dosing as of last night. continue current regimen and observe for continued stabilization. T/C slight increase in lithium dosing. 04/24: Laying in bed. guarded. calm. did not want to get out of bed to meet with T/W. Pt reports feeling great today but declined to go into detail. listening to music on unit headphones. Pt stated, I'm fine. I don't need anything . denies any issues at this time. denies SI/HI/VH/AH. Continue current tx plan. 04/25: Laying in bed. keeping to self. calm. paranoid. Discussed incident that occurred with staff last evening. Pt stated, the counselor made up a lie yesterday. I said she looks like my ex-girlfriend. I know they are related. They want to make up a lie to irritate me. They are trying to talk to me so they can use recording devices and make me look some kind of way . listening to music on unit headphones. denies SI/HI/VH/AH. Continue current tx plan. 04/26: Continue current regimen and plans. Increase Zyprexa 20 mg q.h.s. fresh air break withheld 04/27: Continue current regimen and plans 04/28: somewhat less irritable and agitated than last week. however, over the weekend was claiming he was the father of a footballer on TV and also that a staff member is a twin of his ex-GF (and he pushed staff member). TFTs improving. continue current mgmt. 04/29: no change in presentation. continue current mgmt. 04/30: no irritable edge today. calm, pleasant. engaging in small talk. reality testing not pressed. continue current mgmt for now. 05/01: no change in presentation. continue current mgmt. 05/02: BPs coming down, DC beta joanne as pt has been refusing anyway. remains not antagonistic toward MD. using phone appropriately. continue current mgmt otherwise. 05/03 continue 05/04: remains delusional, irritable/labile when delusional system confronted. declines to sign TOMMY for [facility] records. continue current mgmt. 05/06: declining to meet with MD, but does meet with medical student. remains upset about yesterday's confrontation re his delusional system. 05/07: Active on unit. keeping to self. pacing unit hallway while listening to unit headphones. medication compliant. patient reports feeling good ; pt stated, I'm just waiting to leave here. I want to return to my life and do things like go grocery shopping . denies SI/HI/VH/AH. Continue current tx plan. 05/08: stable presentation, delusions not being brought to the surface daily. remains affectively improved from admission. continue current mgmt. 05/09: calm, pleasant. no questions or complaints. continue current mgmt. 05/10: no change in presentation. due to lack of improvement in dental infection Sx, DC PCN and start augmentin. 05/11: no change in presentation. continue current mgmt. 05/12: as for yesterday. dental pain improving a bit. 05/13: expressed to medical student that his brother poisoned him, causing his thyroid disease. no change in presentation. continue current mgmt. 05/14: Pacing unit hallway. keeping to self. patient reports feeling good today; denies any issues at this time. denies SI/HI/VH/AH. per nursing, slept 5 hours. Continue current tx plan. 05/15: slept 6 hours. otherwise isolative, difficult to engage. continue current mgmt. 05/16: slept 7 hours. as for yesterday otherwise. 05/17/25: Slept well, no issue with appetite, skinny and pretty tall. Compliant with medication. No side effects Calm and pleasant upon approach. Some what paranoid. Tangential, however denies other safety concerns. Questions if he is discharging soon. He is on antibiotic for 7 days for mouth pain/tooth pain. We will finish the 7 course up in antibiotic after tonight dose. Then discontinue. 05/18/25: Slept for 5 hours plus hours this morning. In bed most of the shift, no behavior issues. Denies other safety concerns. 05/19: in bed days, up eves. no change in presentation. continue current mgmt. 05/20: no change in presentation. check labs. 05/21: lithium low, TFTs mixed and not all back. increase lithium from 600 BID to 600/900. trend BUN/Cr, with slight elevation. otherwise continue current mgmt. 05/22: no change in presentation. continue current mgmt. 05/23: does not deny someone stole his sperm and impregnated his landlord's child with it. irritable. c/o dental pain, antibx restarted. otherwise continue current mgmt. 05/14: no change in mgt 05/25: more isolative today; no change in mgt 05/26: decreases in methimazole noted. continue psych regimen as is. pt refused to interact with MD today. 05/27: i'm sleeping. no change in presentation. labs tonight. 05/28: no change in behavior. lithium 0.66, BUN stable. continue current mgmt. 05/29: irritable. continue current mgmt. 05/30: no longer in single room. still not engaging, sleeping days. continue current mgmt. 05/31:laying in bed. declined to meet with T/W. pt stated, I want to sleep. I didn't sleep enough . Pt encouraged to reach out to staff if he needs anything. Continue current tx plan. 06/01: Similar to yesterday. laying in bed. Irritable. declined to meet with T/W and pulled bed sheets over head. pt stated, I don't want to talk. I want to sleep . difficult to engage. Continue current tx plan. 06/02: Similar to yesterday. laying in bed. Irritable. declined to meet with T/W. Observed getting drink from kitchen; T/W approached pt and asked if they could speak. patient declined to acknowledge T/W and walked past. Continue current tx plan. 06/03: no change in behavior. continue tx plan. 06/04/25: Passive engaged in the assessment, in bed mostly sleeping this morning which could be interfere with his nighttime. Cover body under the blanket Slept for 4-5 hours last night. Was medication compliant, attended no groups, isolative to self in room. No SI/SIB/HI/AVH expressed. 06/05: continue tx plan. 06/06: reports feeling fine ; continues guarded. difficult to engage. declining to meet with T/W. continue tx plan. 06/07/25: Slept for 4 hours at night, but has been sleeping most of the day yesterday as well. Spent majority of the shift in bed, was medication compliant. Passive engaged in the conversation. He said he will try to change the sleeping pattern so that he can be awake more during the daytime. Appear to be sedated in the morning. No safety behavior. 06/08/25: Slept for 3-4 hours last night, compliant with medications. Denies side effects, denies other safety concerns. Continued to encourage patient to up and down more than on the unit he spent most of the day sleeping. He is pleasant upon approach. No other behavior issues. Denied voices/hallucinations. Suicide thoughts or homicidal thoughts. 06/09: sleeping, minimally rousable. denies problems. continue current mgmt. 06/10: sleeping all day, up most of the night. minimally rousable. denies problems. continue current mgmt. per JAMAICA Arrington: Jean said when he leaves he can return to [facility]. he was living with a lady there and can go back. He plans to get a job to pay off his debt. He said he owes money because they sent him back here due to losing his passport and he owes them money for the temporary emergency passport and the flight back to the . so his main focus is to get a job. he said he will try things here first and if it doesn't work out he plans to return to [place]. 06/11/25: Passively engaged in conversation while in bed sleeping/resting. Able to answer question appropriately, but seems to be minimized. Denies SI/SIB/HI/AVH. He slept 5 hours last night, spent most of the day in bed sleeping. Attempted to no groups, observed out to the afternoon in the subramanian near the nurse station. No change in presentation. Encourage groups,up and engaged in groups. 06/12: not engaging. no complaints or questions re med changes. cross-taper zyprexa in favor of invega, give MONTERO invega. tonight, decrease zyprexa to 15 mg and start invega 3 mg. otherwise continue current mgmt. 06/13: continues avoidant and disengaged. denies side effects from med change last night. informed cross-titration will advance tonight. decrease zyprexa to 10 mg tonight, increase paliperidone to 6 mg. plan to continue by 5 mg zyprexa and 3 mg paliperidone increments every several days as tolerated until zyprexa DCed and paliperidone at 12 mg QHS. once it is established pt is tolerating PO Paliperidone, invega sustenna to be administered. 06/14: Continue current regimen and plans 06/15: Continue current plans and regimen 06/16: irritable re neuroleptic change. denies side effects or problems with it, however. minimally engageable. increase invega to 9 QHS and decrfease zyprexa to 5 QHS. 06/17/25: Continued to be irritable regarding medication change/titration. However engaged in conversation, hyper verbal, paranoid, reports medication slow his thoughts down and he does not not like it. Poor insight and poor judgment. He thinks he only need lithium, not other medications. Remind patient to continue doing the sleep pattern changing. However his in bed mostly this morning. Slept for 4-5 hours last night. 06/18/25: Slept for 5 hours last night as he continues sleeping during daytime. Compliant with meds, did not c/o side effects.Passingly engaging in assessment. Denies safety concerns. Tolerate the tritation well. Will increase Inveag up to max of 12 tomorrow and Discontinue Olanzepine at HS. Continue to encourage up and out on day so he can sleep better at HS. 06/19/25: Patient slept for 5.5 hours last night, was medication compliant, mostly in his room yesterday but seen more often in the evening. Patient is awake in his room, listen to music, his morning tray was taken away and clean the area. He is very pleasant to talk to today, reports he feels good, denies side effects from medications, denies any safety concerns. Denies feeling sedation, denies anxiety/depression. He is receptive with the plan of medication over the weekends and next week, happy to hear about the medication plan. He also agree with the MONTERO Invega Sustenna on Monday. Encourage him to go out and attended to groups, he said that he will. Reported that he was out for groups a couple of times last week. Discontinue Haldol p.r.n.. Discontinue scheduled Zyprexa 5 mg at bedtime. Only on 10 Zyprexa at g IM daily p.r.n. as backup orders if refused Invega. Invega 12 mg at bedtime. Plan to monitor over the weekends and will give long- acting injection on Monday if tolerate with the p.o. well Reduce Seroquel 200 mg p.r.n. at bedtime to 100 p.r.n. at bedtime for insomnia. Seroquel 50 mg b.i.d. p.r.n. for agitation. Discontinue Motrin. Patient on lithium. Labs were for MondayJune 20: CMP, TSH with free T4. 06/20/25: In bed most of the day, was compliant with medication, however refused labs work. Re- scheduled for Monday. Continue with Invega 12 mg at bedtime. We will reassess and offer long-acting injection on Monday. Continue to encourage patient to get up and go to some groups. No safety concerns expressed. Minimal peer and staff interaction. 06/21: no change in presentation. start MONTERO monday. no s/e from invega. otherwise continue current mgmt. 06/22: stable. continue current mgmt. 06/23/25: More awake and alert. Review with patient regarding policy for his phone use BID 30min each time, patient is educated on compliant with policy. He asks for more 5-10 min extra headphone use at night on the weekends after 0. Once again, redirected for unit rules. He agrees with MONTERO which is scheduled today. Discontinue Invega PO Invega Sustenna 234mg IM once. Will monitor for possible side effects and sedation. Will offer 156mg after 1 week. If mentaly stable with 156mg, will maintain at this dose, if not will offer 234mg Monthly. 06/24/25: Slept for 5 hours last night, but also went to bed around 7 tonight p.m. last night per his report. He also attended to groups in the afternoon yesterday. Compliant with medications. No side effects from Invega Sustenna. He is engaged in full conversation today why he is in bed, denies safety concerns. Observe he is on the unit, social with peers and staff in longer period of time. Appeared to be happy. He plans to take shower today. Reported that he was up early but he does not feel hungry in the morning. He is making progress, not too sedated during daytime since switching his medication. Appears to do well so far with Invega Sustenna. 06/25/25: Patient slept for 4 hours last night, however he reported was napping in the afternoon for couple hours which affect his sleeping pattern at night. Educate patient to not napping late in the evening. He is receptive. Compliant with medications, no side effects. He reports his did not shower yesterday but he will today. He is awake in his room not sleeping, engage in full conversation, no delusional or paranoid statements make. He is visible at times. Continued to improve in mood, engaging in other activities on the unit. Denies other safety concerns. Denies hallucinations. No irritability mood, not sedated during day time compared to when he was taking olanzapine. We will schedule Invega Sustenna 156 next Monday. Work with social worker masters to see where he will return to. He probably needs [facility] to manage medication. 06/26/25: He slept for 5 hours, compliant with medications. Denies side effects. He self-reported that he went to bed last night and was able to fall asleep by 01:00 and able to stay asleep whole night. Denies safety concerns. I spoke with him in length today regarding aftercare. He thinks he will go to the hospital in [place] to ask them regarding his heart condition. He thinks people was lying to get him to the hospital as he does not have mental health illnesses. He believes that he has been exactly the same he was seen he was a little, and at he able to remember everything in the past. He also reports that he used to use [facility] in [place]. At he does not want [facility] application. I explained to him that in order to be a candidate patient have to be a safe that he has mental health issues, so people can submit the application, and from the [facility] worker will contact him to do assessment if he qualify for any services that they can provide. Patient is receptive application, social worker masters was notified. Patient also would like to have services with [facility] [facility] [place]. He showered yesterday morning, did not go to groups yesterday, but he will go to some groups today per his plan for the day,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
[2025-07-18 19:47] VITALS: BP 128/60; PULSE 79; RESP 16; TEMP 37; O2SAT 98
[2025-07-19 08:00] VITALS: RESP 16
--- NOTE | 2025-07-19 09:24 | P.PNPSI_ITS ---
Subjective Subjective Date of Service: 07/19/25 Reason For Visit: psychotic disorder Subjective Notes: [place] Order and Section 8 Healthcare Proxy: No Guardianship: No Medical Problems Affecting Mental Status: No Interim History: Medical record and nursing notes reviewed; case discussed during rounds with team/nursing staff, and met with patient for supportive therapy/psychoeducation, as well as medication management. No issues with appetite and sleep, compliant with meds, visible, social appropriately when out to common area. Report mild drooling which not got worse. Shave his head this morning. Moved to new room as he had an arguing with roommate who open the blinds in his room per nursing. Denies safety concerns, appear isolative and depressed. He is quiet. Medication Compliance: Yes Side effects from medications: No Attending Groups: Intermittent Review of Systems Acute medical concerns: No Medical Review of Systems: unchanged Review of Systems Review of Systems nothing of note Yes all other systems are reviewed and are negative Mental Status Exam Mental Status Exam Narrative: in bed. fair eye contact with exopthalmos. No PMA/PMR. cooperative. speech nml rate, decr amount and loudness. thoughts linear and logical. affect constricted, normo-intense. mood is good. no questions or complaints. No SI/SIB/HI/AVH expressed. Diagnostics Vital Signs (24Hr): Vital Signs - 24 hr 07/18/25 19:47 Temperature 98.6 F Pulse Rate 79 Respiratory Rate 16 Blood Pressure 128/60 Pulse Oximetry 98 Oxygen Delivery Method Room Air BMI result Body Mass Index 23.2 Labs 06/25/25 08:02 06/20/25 20:35 Medications Medications Current Medications Acetaminophen (Acetaminophen 325 Mg Tablet) 650 mg PO Q4H PRN PRN Reason: Pain, Mild (Pain Scale 1-3) Last Admin: 07/06/25 22:53 Dose: 650 mg Al Hydroxide/Mg Hydroxide (Magnesium Hydrox/Alum Hydrox 30 Ml Oral.Susp) 30 ml PO Q6H PRN PRN Reason: Heart burn Benzocaine (Benzocaine 20 % Oral Gel 14 Gm Tube) 1 appl MUCOUS MEM QID PRN; Protocol PRN Reason: Mouth Sore Pain Last Admin: 04/26/25 18:33 Dose: 1 appl Diazepam (Diazepam 10 Mg/2 Ml Cartridge) 10 mg IM BID PRN PRN Reason: refusal of lithium, per everett Last Admin: 04/11/25 09:56 Dose: 10 mg Glycopyrrolate (Glycopyrrolate 1 Mg Tablet) 1 mg PO BID PENDING SALE TO [facility] Last Admin: 07/18/25 22:40 Dose: 1 mg Hydrocortisone (Hydrocortisone 1 % Cream 28.35 Gm Tube) 1 appl TOPICAL DAILY PRN; Protocol PRN Reason: rash Last Admin: 07/17/25 23:13 Dose: 1 appl [place] Carbonate ([place] Carbonate Er 300 Mg Tablet.Er) 600 mg PO DAILY PENDING SALE TO [facility] Last Admin: 07/18/25 09:10 Dose: 600 mg [place] Carbonate ([place] Carbonate Er 450 Mg Tablet.Er) 900 mg PO DAILY@2300 PENDING SALE TO [facility] Last Admin: 07/18/25 22:40 Dose: 900 mg Magnesium Hydroxide (Milk Of Magnesia 30 Ml Oral.Susp) 30 ml PO DAILY PRN PRN Reason: Constipation Methimazole (Methimazole 10 Mg Tablet) 10 mg PO DAILY PENDING SALE TO [facility] Last Admin: 07/18/25 09:10 Dose: 10 mg Nicotine (Nicotine 21 Mg Patch.Td24) 21 mg TRANSDERMA DAILY PRN PRN Reason: nicotine cravings Last Admin: 04/12/25 17:06 Dose: 21 mg Nicotine Polacrilex (Nicotine Polacrilex Lozenge 2 Mg Lozenge) 2 mg BUCCAL Q1H PRN PRN Reason: Nicotine Cravings Last Admin: 04/30/25 08:49 Dose: 2 mg Patient Own Medication Excedrin 250/250/65mg 2 each PO Q8H PRN PRN Reason: Migraine Headache Last Admin: 07/16/25 22:13 Dose: 2 each Olanzapine (Olanzapine 10 Mg Vial) 10 mg IM DAILY PRN PRN Reason: if refuse Invega PO Paliperidone Palmitate (Paliperidone Palmitate 234 Mg/1.5 Ml Syringe) 234 mg IM Q30D PENDING SALE TO [facility] Pseudoephedrine HCl (Pseudoephedrine Hcl 30 Mg Tablet) 30 mg PO Q6H PRN PRN Reason: Congestion Last Admin: 07/03/25 21:18 Dose: 30 mg Quetiapine Fumarate (Quetiapine Fumarate 100 Mg Tablet) 100 mg PO BEDTIME PRN PRN Reason: insomnia Quetiapine Fumarate (Quetiapine Fumarate 50 Mg Tablet) 50 mg PO BID PRN PRN Reason: agitation Last Admin: 07/18/25 22:40 Dose: 50 mg Sodium Chloride (Sodium Chloride 0.65 % Nasal 44 Ml Sprbtl) 1 spray NOSTRIL-B Q4H PRN PRN Reason: Congestion Last Admin: 07/03/25 23:03 Dose: 1 spray Allergies Allergies Allergy/AdvReac Type Severity Reaction Status Date / Time No Known Allergies Allergy Verified 03/26/25 14:24 Assessment & Plan Assessment & Plan (1) Graves disease: Status: Acute Code(s): E05.00 - Thyrotoxicosis with diffuse goiter without thyrotoxic crisis or storm Assessment and Plan: Hyperthyroidism/Graves disease. He will need follow up with endocrinology as an outpatient He will also need a primary care doctor referral as an outpatient Discussed with Dr. Bejarano, patient will need free T4 weekly Decrease Methimazole to 15 mgs daily for three days and then 10 mgs daily- discussed with patient he is aware of plan and rationale. TSH and free T4 every 4 weeks. No need to draw thyroid stimulation immunology or TSH receptor AB (2) Dental abscess: Status: Acute Code(s): K04.7 - Periapical abscess without sinus Assessment and Plan: Carious tooth/dental infection Recently treated with PEN VK 500 mg q.6 hours for 7 days Patient will need follow up with dentist on discharge for tooth extraction Motrin helping pain. (3) Becca: Status: Acute Code(s): F30.9 - Manic episode, unspecified Plan 03/26: offer lithium and seroquel for becca. continue methimazole and beta joanne for hyperthyroidism as started at [facility]. trend TFTs. 12b. 03/27: taking methimazole and beta joanne. refused HS meds last night, took morning meds today. continue to encourage medication compliance. 03/28: intermittently taking meds. wants all meds in morning. pressured, manic, paranoid delusions. encouraged to take lithium but states he will not. all meds ordered for morning. 03/29: Keeping to self. no groups. observed laying in bed listening to music on unit headphones. pleasant. Pt reports feeling good today and sleeping well. declined lithium and zyprexa. denies SI/HI/VH/AH. continue current tx plan. 03/30:Irritable. upset he was unable to use his personal hygiene products. Per nursing, pt threatened staff and squeezed tooth paste throughout unit hallway to show his frustration. Pt was able to calm down after speaking with security. declined medications. 03/31: Keeping to self. laying in bed listening to music. refused medications. calm today. Patient reports feeling great ; pt stated, nothing is wrong with me. I'm waiting so I can leave tomorrow. I'm hoping for the best . denies SI/HI/VH/AH. per nursing, slept 6 hours. Continue current tx plan. 04/01: variably calm on the unit versus highly agitated. paranoid delusions, irritability, lability continue. seems to believe MD has met him prior to the present hospitalization and is stalking him. believes brother behind conspiracy to have him psychiatrically hospitalized. has been refusing all medications, including for hyperthyroidism. informed he would be filed on. filed. continue to offer medications. 04/02: continues agitated, belittling, verbally aggressive, refusing all medications including for hyperthyroidism. continue to offer medication. 04/03: paranoid there is a conspiracy to hospitalize him. threatening to stick a stick in staff once he is released by criminal judge. insists his hyperthyroidism was cured at [facility]. asserts there is NOTHING wrong with him. continue to offer medication. 04/04: irritable, rejecting. verbally abuses MD and sends him away: see you on monday [in court]. continue to offer medication for thyroid condition and mental illness. 04/05 continue tx. suspicious and guarded, accusatory, verbal threats to hurt staff and peers 04/06 intrusive, posturing towards staff and peer who he thinks is not real and is an impostor, continues to make verbal threats to harm him but thinks that because he is not real he may not experience any pain. 04/07: threatening statements and behaviors of yesterday noted. pt sleeping this morning, dismissive of MD. 04/08: asleep days. committed and meds ordered by court. 04/09: on being informed of court order and MD insisting on meds, pt escalated to hurling food item in container against wall at high speed and saying he wished he could do the same to MD's head. pt eventually took court ordered meds PO. sensodyne and excedrin not available in pharmacy (pt requesting them). 04/10: continue tx. Pt accepting medication today. 04/11: Keeping to self. Lying in bed most of morning. Declined to meet with T/W. Pt stated, I'm fine. I don't need anything . Listening to headphones in room. Declined court ordered PO medications; received IM medications. Refused vital signs.continue tx plan. 04/12: got IMs yesterday, took PO this morning. sleepy, no concerns or complaints. 04/13: taking PO meds again. slept 7 hours. sleepy again mid morning refusing interview. continue current mgmt. 04/14: sleeping, rousable. denies being sedated or tired, says he's just bored. no questions or complaints. informed of need to check labs. check lithium level and thyroid labs tonight. 04/15: refusing labs. delusional re his brother harming him. verbally abusive toward MD. spat in floor. happy with improvement in proptosis. 04/16: Lying in bed. Calm. cooperative. guarded. Pt reports feeling tired this morning d/t poor sleep last night. Pt stated, I don't need anything. I didn't sleep well so I'm trying to catch up . denies any issues at this time. denies SI/HI/VH/AH. Continue current tx plan. 04/17: more calm today, less explosive. continue current mgmt. 04/18: continues more calm. tolerating moments of frustration without verbally attacking MD. slept only 2 hours overnight, however. continue current mgmt. 04/19 continues to push boundaries and limits with staff mike around cell phone- 04/20 - aggressive with staff and unpredictable- threw water pitcher at staff behind desk/-when seen by provider passive in bed-denying all compaints/sys- no insight 04/21: appears as per last week. more difficult behaviors around cell phone use, did throw pitcher of water at RN monday over phone use and was restrained. continue current mgmt. 04/22: continues to have conflict around cell phone use. consolidate zyprexa at HS to decrease daytime sedation. 1:1 allegra shift until peer he is accusing of not being a real patient and appears to be targeting discharges tomorrow. 04/23: lithium 0.6 on 600 BID. sleeping better, remains delusional (telling SW who is marginally younger than him that she could be his daughter). just changed zyprexa dosing as of last night. continue current regimen and observe for continued stabilization. T/C slight increase in lithium dosing. 04/24: Laying in bed. guarded. calm. did not want to get out of bed to meet with T/W. Pt reports feeling great today but declined to go into detail. listening to music on unit headphones. Pt stated, I'm fine. I don't need anything . denies any issues at this time. denies SI/HI/VH/AH. Continue current tx plan. 04/25: Laying in bed. keeping to self. calm. paranoid. Discussed incident that occurred with staff last evening. Pt stated, the counselor made up a lie yesterday. I said she looks like my ex-girlfriend. I know they are related. They want to make up a lie to irritate me. They are trying to talk to me so they can use recording devices and make me look some kind of way . listening to music on unit headphones. denies SI/HI/VH/AH. Continue current tx plan. 04/26: Continue current regimen and plans. Increase Zyprexa 20 mg q.h.s. fresh air break withheld 04/27: Continue current regimen and plans 04/28: somewhat less irritable and agitated than last week. however, over the weekend was claiming he was the father of a footballer on TV and also that a staff member is a twin of his ex-GF (and he pushed staff member). TFTs improving. continue current mgmt. 04/29: no change in presentation. continue current mgmt. 04/30: no irritable edge today. calm, pleasant. engaging in small talk. reality testing not pressed. continue current mgmt for now. 05/01: no change in presentation. continue current mgmt. 05/02: BPs coming down, DC beta joanne as pt has been refusing anyway. remains not antagonistic toward MD. using phone appropriately. continue current mgmt otherwise. 05/03 continue 05/04: remains delusional, irritable/labile when delusional system confronted. declines to sign TOMMY for [facility] records. continue current mgmt. 05/06: declining to meet with MD, but does meet with medical student. remains upset about yesterday's confrontation re his delusional system. 05/07: Active on unit. keeping to self. pacing unit hallway while listening to unit headphones. medication compliant. patient reports feeling good ; pt stated, I'm just waiting to leave here. I want to return to my life and do things like go grocery shopping . denies SI/HI/VH/AH. Continue current tx plan. 05/08: stable presentation, delusions not being brought to the surface daily. remains affectively improved from admission. continue current mgmt. 05/09: calm, pleasant. no questions or complaints. continue current mgmt. 05/10: no change in presentation. due to lack of improvement in dental infection Sx, DC PCN and start augmentin. 05/11: no change in presentation. continue current mgmt. 05/12: as for yesterday. dental pain improving a bit. 05/13: expressed to medical student that his brother poisoned him, causing his thyroid disease. no change in presentation. continue current mgmt. 05/14: Pacing unit hallway. keeping to self. patient reports feeling good today; denies any issues at this time. denies SI/HI/VH/AH. per nursing, slept 5 hours. Continue current tx plan. 05/15: slept 6 hours. otherwise isolative, difficult to engage. continue current mgmt. 05/16: slept 7 hours. as for yesterday otherwise. 05/17/25: Slept well, no issue with appetite, skinny and pretty tall. Compliant with medication. No side effects Calm and pleasant upon approach. Some what paranoid. Tangential, however denies other safety concerns. Questions if he is discharging soon. He is on antibiotic for 7 days for mouth pain/tooth pain. We will finish the 7 course up in antibiotic after tonight dose. Then discontinue. 05/18/25: Slept for 5 hours plus hours this morning. In bed most of the shift, no behavior issues. Denies other safety concerns. 05/19: in bed days, up eves. no change in presentation. continue current mgmt. 05/20: no change in presentation. check labs. 05/21: lithium low, TFTs mixed and not all back. increase lithium from 600 BID to 600/900. trend BUN/Cr, with slight elevation. otherwise continue current mgmt. 05/22: no change in presentation. continue current mgmt. 05/23: does not deny someone stole his sperm and impregnated his landlord's child with it. irritable. c/o dental pain, antibx restarted. otherwise continue current mgmt. 05/14: no change in mgt 05/25: more isolative today; no change in mgt 05/26: decreases in methimazole noted. continue psych regimen as is. pt refused to interact with MD today. 05/27: i'm sleeping. no change in presentation. labs tonight. 05/28: no change in behavior. lithium 0.66, BUN stable. continue current mgmt. 05/29: irritable. continue current mgmt. 05/30: no longer in single room. still not engaging, sleeping days. continue current mgmt. 05/31:laying in bed. declined to meet with T/W. pt stated, I want to sleep. I didn't sleep enough . Pt encouraged to reach out to staff if he needs anything. Continue current tx plan. 06/01: Similar to yesterday. laying in bed. Irritable. declined to meet with T/W and pulled bed sheets over head. pt stated, I don't want to talk. I want to sleep . difficult to engage. Continue current tx plan. 06/02: Similar to yesterday. laying in bed. Irritable. declined to meet with T/W. Observed getting drink from kitchen; T/W approached pt and asked if they could speak. patient declined to acknowledge T/W and walked past. Continue current tx plan. 06/03: no change in behavior. continue tx plan. 06/04/25: Passive engaged in the assessment, in bed mostly sleeping this morning which could be interfere with his nighttime. Cover body under the blanket Slept for 4-5 hours last night. Was medication compliant, attended no groups, isolative to self in room. No SI/SIB/HI/AVH expressed. 06/05: continue tx plan. 06/06: reports feeling fine ; continues guarded. difficult to engage. declining to meet with T/W. continue tx plan. 06/07/25: Slept for 4 hours at night, but has been sleeping most of the day yesterday as well. Spent majority of the shift in bed, was medication compliant. Passive engaged in the conversation. He said he will try to change the sleeping pattern so that he can be awake more during the daytime. Appear to be sedated in the morning. No safety behavior. 06/08/25: Slept for 3-4 hours last night, compliant with medications. Denies side effects, denies other safety concerns. Continued to encourage patient to up and down more than on the unit he spent most of the day sleeping. He is pleasant upon approach. No other behavior issues. Denied voices/hallucinations. Suicide thoughts or homicidal thoughts. 06/09: sleeping, minimally rousable. denies problems. continue current mgmt. 06/10: sleeping all day, up most of the night. minimally rousable. denies problems. continue current mgmt. per JAMAICA Arrington: Jean said when he leaves he can return to [facility]. he was living with a lady there and can go back. He plans to get a job to pay off his debt. He said he owes money because they sent him back here due to losing his passport and he owes them money for the temporary emergency passport and the flight back to the . so his main focus is to get a job. he said he will try things here first and if it doesn't work out he plans to return to [place]. 06/11/25: Passively engaged in conversation while in bed sleeping/resting. Able to answer question appropriately, but seems to be minimized. Denies SI/SIB/HI/AVH. He slept 5 hours last night, spent most of the day in bed sleeping. Attempted to no groups, observed out to the afternoon in the subramanian near the nurse station. No change in presentation. Encourage groups,up and engaged in groups. 06/12: not engaging. no complaints or questions re med changes. cross-taper zyprexa in favor of invega, give MONTERO invega. tonight, decrease zyprexa to 15 mg and start invega 3 mg. otherwise continue current mgmt. 06/13: continues avoidant and disengaged. denies side effects from med change last night. informed cross-titration will advance tonight. decrease zyprexa to 10 mg tonight, increase paliperidone to 6 mg. plan to continue by 5 mg zyprexa and 3 mg paliperidone increments every several days as tolerated until zyprexa DCed and paliperidone at 12 mg QHS. once it is established pt is tolerating PO Paliperidone, invega sustenna to be administered. 06/14: Continue current regimen and plans 06/15: Continue current plans and regimen 06/16: irritable re neuroleptic change. denies side effects or problems with it, however. minimally engageable. increase invega to 9 QHS and decrfease zyprexa to 5 QHS. 06/17/25: Continued to be irritable regarding medication change/titration. However engaged in conversation, hyper verbal, paranoid, reports medication slow his thoughts down and he does not not like it. Poor insight and poor judgment. He thinks he only need lithium, not other medications. Remind patient to continue doing the sleep pattern changing. However his in bed mostly this morning. Slept for 4-5 hours last night. 06/18/25: Slept for 5 hours last night as he continues sleeping during daytime. Compliant with meds, did not c/o side effects.Passingly engaging in assessment. Denies safety concerns. Tolerate the tritation well. Will increase Inveag up to max of 12 tomorrow and Discontinue Olanzepine at HS. Continue to encourage up and out on day so he can sleep better at HS. 06/19/25: Patient slept for 5.5 hours last night, was medication compliant, mostly in his room yesterday but seen more often in the evening. Patient is awake in his room, listen to music, his morning tray was taken away and clean the area. He is very pleasant to talk to today, reports he feels good, denies side effects from medications, denies any safety concerns. Denies feeling sedation, denies anxiety/depression. He is receptive with the plan of medication over the weekends and next week, happy to hear about the medication plan. He also agree with the MONTERO Invega Sustenna on Monday. Encourage him to go out and attended to groups, he said that he will. Reported that he was out for groups a couple of times last week. Discontinue Haldol p.r.n.. Discontinue scheduled Zyprexa 5 mg at bedtime. Only on Zyprexa at g IM daily p.r.n. as backup orders if refused Invega. Invega 12 mg at bedtime. Plan to monitor over the weekends and will give long- acting injection on Monday if tolerate with the p.o. well Reduce Seroquel 200 mg p.r.n. at bedtime to 100 p.r.n. at bedtime for insomnia. Seroquel 50 mg b.i.d. p.r.n. for agitation. Discontinue Motrin. Patient on lithium. Labs were for MondayJune 20: CMP, TSH with free T4. 06/20/25: In bed most of the day, was compliant with medication, however refused labs work. Re- scheduled for Monday. Continue with Invega 12 mg at bedtime. We will reassess and offer long-acting injection on Monday. Continue to encourage patient to get up and go to some groups. No safety concerns expressed. Minimal peer and staff interaction. 06/21: no change in presentation. start MONTERO monday. no s/e from invega. otherwise continue current mgmt. 06/22: stable. continue current mgmt. 06/23/25: More awake and alert. Review with patient regarding policy for his phone use BID 30min each time, patient is educated on compliant with policy. He asks for more 5-10 min extra headphone use at night on the weekends after 2300. Once again, redirected for unit rules. He agrees with MONTERO which is scheduled today. Discontinue Invega PO Invega Sustenna 234mg IM once. Will monitor for possible side effects and sedation. Will offer 156mg after 1 week. If mentaly stable with 156mg, will maintain at this dose, if not will offer 234mg Monthly. 06/24/25: Slept for 5 hours last night, but also went to bed around 7 tonight p.m. last night per his report. He also attended to groups in the afternoon yesterday. Compliant with medications. No side effects from Invega Sustenna. He is engaged in full conversation today why he is in bed, denies safety concerns. Observe he is on the unit, social with peers and staff in longer period of time. Appeared to be happy. He plans to take shower today. Reported that he was up early but he does not feel hungry in the morning. He is making progress, not too sedated during daytime since switching his medication. Appears to do well so far with Invega Sustenna. 06/25/25: Patient slept for 4 hours last night, however he reported was napping in the afternoon for couple hours which affect his sleeping pattern at night. Educate patient to not napping late in the evening. He is receptive. Compliant with medications, no side effects. He reports his did not shower yesterday but he will today. He is awake in his room not sleeping, engage in full conversation, no delusional or paranoid statements make. He is visible at times. Continued to improve in mood, engaging in other activities on the unit. Denies other safety concerns. Denies hallucinations. No irritability mood, not sedated during day time compared to when he was taking olanzapine. We will schedule Invega Sustenna 156 next Monday. Work with social work coordinator to see where he will return to. He probably needs VNA to manage medication. 06/26/25: He slept for 5 hours, compliant with medications. Denies side effects. He self-reported that he went to bed last night and was able to fall asleep by 01:00 and able to stay asleep whole night. Denies safety concerns. I spoke with him in length today regarding aftercare. He thinks he will go to the hospital in [place] to ask them regarding his heart condition. He thinks people was lying to get him to the hospital as he does not have mental health illnesses. He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
[2025-07-19 20:08] VITALS: RESP 16
[2025-07-20 20:00] VITALS: BP 128/67; PULSE 76; RESP 16; TEMP 37.2; O2SAT 98
--- NOTE | 2025-07-20 22:49 | HO.PSYCHPN ---
Subjective Subjective Date of Service: 07/20/25 Reason For Visit: psychotic disorder Subjective Notes: [place] Order and Section 8 Interim History: Medical record and nursing notes reviewed; case discussed during rounds with team/nursing staff, and met with patient for supportive therapy/psychoeducation, as well as medication management. No change. Slept for 5 hours last night, received p.r.n. Seroquel on the overnight. Isolated himself in bed, appeared to be depressed, not social with peer ot staff. Deny physical discomfort. No safety concerns. Encourage patient to be out and visible, advised not to sleep too much because it can interfere with bedtime. Medication Compliance: Yes Side effects from medications: No Attending Groups: No Review of Systems Acute medical concerns: No Medical Review of Systems: unchanged Review of Systems Review of Systems nothing of note Yes all other systems are reviewed and are negative Mental Status Exam Mental Status Exam Narrative: in bed. fair eye contact with exopthalmos. No PMA/PMR. cooperative. speech nml rate, decr amount and loudness. thoughts linear and logical. affect constricted, normo-intense. mood is good. no questions or complaints. No SI/SIB/HI/AVH expressed. Diagnostics Vital Signs (24Hr): Vital Signs - 24 hr 07/20/25 20:00 Temperature 99 F Pulse Rate 76 Respiratory Rate 16 Blood Pressure 128/67 Pulse Oximetry 98 Oxygen Delivery Method Room Air BMI result Body Mass Index 23.2 Labs 06/25/25 08:02 06/20/25 20:35 Medications Medications Current Medications Acetaminophen (Acetaminophen 325 Mg Tablet) 650 mg PO Q4H PRN PRN Reason: Pain, Mild (Pain Scale 1-3) Last Admin: 07/06/25 22:53 Dose: 650 mg Al Hydroxide/Mg Hydroxide (Magnesium Hydrox/Alum Hydrox 30 Ml Oral.Susp) 30 ml PO Q6H PRN PRN Reason: Heart burn Benzocaine (Benzocaine 20 % Oral Gel 14 Gm Tube) 1 appl MUCOUS MEM QID PRN; Protocol PRN Reason: Mouth Sore Pain Last Admin: 04/26/25 18:33 Dose: 1 appl Diazepam (Diazepam 10 Mg/2 Ml Cartridge) 10 mg IM BID PRN PRN Reason: refusal of lithium, per [place] Last Admin: 04/11/25 09:56 Dose: 10 mg Glycopyrrolate (Glycopyrrolate 1 Mg Tablet) 1 mg PO BID [facility] Last Admin: 07/20/25 10:12 Dose: 1 mg Hydrocortisone (Hydrocortisone 1 % Cream 28.35 Gm Tube) 1 appl TOPICAL DAILY PRN; Protocol PRN Reason: rash Last Admin: 07/17/25 23:13 Dose: 1 appl [place] Carbonate ([place] Carbonate Er 300 Mg Tablet.Er) 600 mg PO DAILY [facility] Last Admin: 07/20/25 10:11 Dose: 600 mg [place] Carbonate ([place] Carbonate Er 450 Mg Tablet.Er) 900 mg PO DAILY@2300 [facility] Last Admin: 07/19/25 22:35 Dose: 900 mg Magnesium Hydroxide (Milk Of Magnesia 30 Ml Oral.Susp) 30 ml PO DAILY PRN PRN Reason: Constipation Methimazole (Methimazole 10 Mg Tablet) 10 mg PO DAILY [facility] Last Admin: 07/20/25 10:12 Dose: 10 mg Nicotine (Nicotine 21 Mg Patch.Td24) 21 mg TRANSDERMA DAILY PRN PRN Reason: nicotine cravings Last Admin: 04/12/25 17:06 Dose: 21 mg Nicotine Polacrilex (Nicotine Polacrilex Lozenge 2 Mg Lozenge) 2 mg BUCCAL Q1H PRN PRN Reason: Nicotine Cravings Last Admin: 04/30/25 08:49 Dose: 2 mg Patient Own Medication Excedrin 250/250/65mg 2 each PO Q8H PRN PRN Reason: Migraine Headache Last Admin: 07/16/25 22:13 Dose: 2 each Olanzapine (Olanzapine 10 Mg Vial) 10 mg IM DAILY PRN PRN Reason: if refuse Invega PO Paliperidone Palmitate (Paliperidone Palmitate 234 Mg/1.5 Ml Syringe) 234 mg IM Q30D [facility] Pseudoephedrine HCl (Pseudoephedrine Hcl 30 Mg Tablet) 30 mg PO Q6H PRN PRN Reason: Congestion Last Admin: 07/03/25 21:18 Dose: 30 mg Quetiapine Fumarate (Quetiapine Fumarate 100 Mg Tablet) 100 mg PO BEDTIME PRN PRN Reason: insomnia Last Admin: 07/20/25 01:53 Dose: 100 mg Quetiapine Fumarate (Quetiapine Fumarate 50 Mg Tablet) 50 mg PO BID PRN PRN Reason: agitation Last Admin: 07/19/25 22:35 Dose: 50 mg Sodium Chloride (Sodium Chloride 0.65 % Nasal 44 Ml Sprbtl) 1 spray NOSTRIL-B Q4H PRN PRN Reason: Congestion Last Admin: 07/03/25 23:03 Dose: 1 spray Allergies Allergies Allergy/AdvReac Type Severity Reaction Status Date / Time No Known Allergies Allergy Verified 03/26/25 14:24 Assessment & Plan Assessment & Plan (1) Graves disease: Status: Acute Code(s): E05.00 - Thyrotoxicosis with diffuse goiter without thyrotoxic crisis or storm Assessment and Plan: Hyperthyroidism/Graves disease. He will need follow up with endocrinology as an outpatient He will also need a primary care doctor referral as an outpatient Discussed with Dr. Bejarano, patient will need free T4 weekly Decrease Methimazole to 15 mgs daily for three days and then 10 mgs daily- discussed with patient he is aware of plan and rationale. TSH and free T4 every 4 weeks. No need to draw thyroid stimulation immunology or TSH receptor AB (2) Dental abscess: Status: Acute Code(s): K04.7 - Periapical abscess without sinus Assessment and Plan: Carious tooth/dental infection Recently treated with PEN VK 500 mg q.6 hours for 7 days Patient will need follow up with dentist on discharge for tooth extraction Motrin helping pain. (3) Becca: Status: Acute Code(s): F30.9 - Manic episode, unspecified Plan 03/26: offer lithium and seroquel for becca. continue methimazole and beta joanne for hyperthyroidism as started at [facility]. trend TFTs. 12b. 03/27: taking methimazole and beta joanne. refused HS meds last night, took morning meds today. continue to encourage medication compliance. 03/28: intermittently taking meds. wants all meds in morning. pressured, manic, paranoid delusions. encouraged to take lithium but states he will not. all meds ordered for morning. 03/29: Keeping to self. no groups. observed laying in bed listening to music on unit headphones. pleasant. Pt reports feeling good today and sleeping well. declined lithium and zyprexa. denies SI/HI/VH/AH. continue current tx plan. 03/30:Irritable. upset he was unable to use his personal hygiene products. Per nursing, pt threatened staff and squeezed tooth paste throughout unit hallway to show his frustration. Pt was able to calm down after speaking with security. declined medications. 03/31: Keeping to self. laying in bed listening to music. refused medications. calm today. Patient reports feeling great ; pt stated, nothing is wrong with me. I'm waiting so I can leave tomorrow. I'm hoping for the best . denies SI/HI/VH/AH. per nursing, slept 6 hours. Continue current tx plan. 04/01: variably calm on the unit versus highly agitated. paranoid delusions, irritability, lability continue. seems to believe MD has met him prior to the present hospitalization and is stalking him. believes brother behind conspiracy to have him psychiatrically hospitalized. has been refusing all medications, including for hyperthyroidism. informed he would be filed on. filed. continue to offer medications. 04/02: continues agitated, belittling, verbally aggressive, refusing all medications including for hyperthyroidism. continue to offer medication. 04/03: paranoid there is a conspiracy to hospitalize him. threatening to stick a stick in staff once he is released by diesel motor mechanic. insists his hyperthyroidism was cured at [facility]. asserts there is NOTHING wrong with him. continue to offer medication. 04/04: irritable, rejecting. verbally abuses MD and sends him away: see you on monday [in court]. continue to offer medication for thyroid condition and mental illness. 04/05 continue tx. suspicious and guarded, accusatory, verbal threats to hurt staff and peers 04/06 intrusive, posturing towards staff and peer who he thinks is not real and is an impostor, continues to make verbal threats to harm him but thinks that because he is not real he may not experience any pain. 04/07: threatening statements and behaviors of yesterday noted. pt sleeping this morning, dismissive of MD. 04/08: asleep days. committed and meds ordered by court. 04/09: on being informed of court order and MD insisting on meds, pt escalated to hurling food item in container against wall at high speed and saying he wished he could do the same to MD's head. pt eventually took court ordered meds PO. sensodyne and excedrin not available in pharmacy (pt requesting them). 04/10: continue tx. Pt accepting medication today. 04/11: Keeping to self. Lying in bed most of morning. Declined to meet with T/W. Pt stated, I'm fine. I don't need anything . Listening to headphones in room. Declined court ordered PO medications; received IM medications. Refused vital signs.continue tx plan. 04/12: got IMs yesterday, took PO this morning. sleepy, no concerns or complaints. 04/13: taking PO meds again. slept 7 hours. sleepy again mid morning refusing interview. continue current mgmt. 04/14: sleeping, rousable. denies being sedated or tired, says he's just bored. no questions or complaints. informed of need to check labs. check lithium level and thyroid labs tonight. 04/15: refusing labs. delusional re his brother harming him. verbally abusive toward MD. spat in floor. happy with improvement in proptosis. 04/16: Lying in bed. Calm. cooperative. guarded. Pt reports feeling tired this morning d/t poor sleep last night. Pt stated, I don't need anything. I didn't sleep well so I'm trying to catch up . denies any issues at this time. denies SI/HI/VH/AH. Continue current tx plan. 04/17: more calm today, less explosive. continue current mgmt. 04/18: continues more calm. tolerating moments of frustration without verbally attacking MD. slept only 2 hours overnight, however. continue current mgmt. 04/19 continues to push boundaries and limits with staff mike around cell phone- 04/20 - aggressive with staff and unpredictable- threw water pitcher at staff behind desk/-when seen by provider passive in bed-denying all compaints/sys- no insight 04/21: appears as per last week. more difficult behaviors around cell phone use, did throw pitcher of water at RN monday over phone use and was restrained. continue current mgmt. 04/22: continues to have conflict around cell phone use. consolidate zyprexa at HS to decrease daytime sedation. 1:1 allegra shift until peer he is accusing of not being a real patient and appears to be targeting discharges tomorrow. 04/23: lithium 0.6 on 600 BID. sleeping better, remains delusional (telling SW who is marginally younger than him that she could be his daughter). just changed zyprexa dosing as of last night. continue current regimen and observe for continued stabilization. T/C slight increase in lithium dosing. 04/24: Laying in bed. guarded. calm. did not want to get out of bed to meet with T/W. Pt reports feeling great today but declined to go into detail. listening to music on unit headphones. Pt stated, I'm fine. I don't need anything . denies any issues at this time. denies SI/HI/VH/AH. Continue current tx plan. 04/25: Laying in bed. keeping to self. calm. paranoid. Discussed incident that occurred with staff last evening. Pt stated, the counselor made up a lie yesterday. I said she looks like my ex-girlfriend. I know they are related. They want to make up a lie to irritate me. They are trying to talk to me so they can use recording devices and make me look some kind of way . listening to music on unit headphones. denies SI/HI/VH/AH. Continue current tx plan. 04/26: Continue current regimen and plans. Increase Zyprexa 20 mg q.h.s. fresh air break withheld 04/27: Continue current regimen and plans 04/28: somewhat less irritable and agitated than last week. however, over the weekend was claiming he was the father of a footballer on TV and also that a staff member is a twin of his ex-GF (and he pushed staff member). TFTs improving. continue current mgmt. 04/29: no change in presentation. continue current mgmt. 04/30: no irritable edge today. calm, pleasant. engaging in small talk. reality testing not pressed. continue current mgmt for now. 05/01: no change in presentation. continue current mgmt. 05/02: BPs coming down, DC beta joanne as pt has been refusing anyway. remains not antagonistic toward MD. using phone appropriately. continue current mgmt otherwise. 05/03 continue 05/04: remains delusional, irritable/labile when delusional system confronted. declines to sign TOMMY for [facility]. continue current mgmt. 05/06: declining to meet with MD, but does meet with medical student. remains upset about yesterday's confrontation re his delusional system. 05/07: Active on unit. keeping to self. pacing unit hallway while listening to unit headphones. medication compliant. patient reports feeling good ; pt stated, I'm just waiting to leave here. I want to return to my life and do things like go grocery shopping . denies SI/HI/VH/AH. Continue current tx plan. 05/08: stable presentation, delusions not being brought to the surface daily. remains affectively improved from admission. continue current mgmt. 05/09: calm, pleasant. no questions or complaints. continue current mgmt. 05/10: no change in presentation. due to lack of improvement in dental infection Sx, DC PCN and start augmentin. 05/11: no change in presentation. continue current mgmt. 05/12: as for yesterday. dental pain improving a bit. 05/13: expressed to medical student that his brother poisoned him, causing his thyroid disease. no change in presentation. continue current mgmt. 05/14: Pacing unit hallway. keeping to self. patient reports feeling good today; denies any issues at this time. denies SI/HI/VH/AH. per nursing, slept 5 hours. Continue current tx plan. 05/15: slept 6 hours. otherwise isolative, difficult to engage. continue current mgmt. 05/16: slept 7 hours. as for yesterday otherwise. 05/17/25: Slept well, no issue with appetite, skinny and pretty tall. Compliant with medication. No side effects Calm and pleasant upon approach. Some what paranoid. Tangential, however denies other safety concerns. Questions if he is discharging soon. He is on antibiotic for 7 days for mouth pain/tooth pain. We will finish the 7 course up in antibiotic after tonight dose. Then discontinue. 05/18/25: Slept for 5 hours plus hours this morning. In bed most of the shift, no behavior issues. Denies other safety concerns. 05/19: in bed days, up eves. no change in presentation. continue current mgmt. 05/20: no change in presentation. check labs. 05/21: lithium low, TFTs mixed and not all back. increase lithium from 600 BID to 600/900. trend BUN/Cr, with slight elevation. otherwise continue current mgmt. 05/22: no change in presentation. continue current mgmt. 05/23: does not deny someone stole his sperm and impregnated his landlord's child with it. irritable. c/o dental pain, antibx restarted. otherwise continue current mgmt. 05/14: no change in mgt 05/25: more isolative today; no change in mgt 05/26: decreases in methimazole noted. continue psych regimen as is. pt refused to interact with MD today. 05/27: i'm sleeping. no change in presentation. labs tonight. 05/28: no change in behavior. lithium 0.66, BUN stable. continue current mgmt. 05/29: irritable. continue current mgmt. 05/30: no longer in single room. still not engaging, sleeping days. continue current mgmt. 05/31:laying in bed. declined to meet with T/W. pt stated, I want to sleep. I didn't sleep enough . Pt encouraged to reach out to staff if he needs anything. Continue current tx plan. 06/01: Similar to yesterday. laying in bed. Irritable. declined to meet with T/W and pulled bed sheets over head. pt stated, I don't want to talk. I want to sleep . difficult to engage. Continue current tx plan. 06/02: Similar to yesterday. laying in bed. Irritable. declined to meet with T/W. Observed getting drink from kitchen; T/W approached pt and asked if they could speak. patient declined to acknowledge T/W and walked past. Continue current tx plan. 06/03: no change in behavior. continue tx plan. 06/04/25: Passive engaged in the assessment, in bed mostly sleeping this morning which could be interfere with his nighttime. Cover body under the blanket Slept for 4-5 hours last night. Was medication compliant, attended no groups, isolative to self in room. No SI/SIB/HI/AVH expressed. 06/05: continue tx plan. 06/06: reports feeling fine ; continues guarded. difficult to engage. declining to meet with T/W. continue tx plan. 06/07/25: Slept for 4 hours at night, but has been sleeping most of the day yesterday as well. Spent majority of the shift in bed, was medication compliant. Passive engaged in the conversation. He said he will try to change the sleeping pattern so that he can be awake more during the daytime. Appear to be sedated in the morning. No safety behavior. 06/08/25: Slept for 3-4 hours last night, compliant with medications. Denies side effects, denies other safety concerns. Continued to encourage patient to up and down more than on the unit he spent most of the day sleeping. He is pleasant upon approach. No other behavior issues. Denied voices/hallucinations. Suicide thoughts or homicidal thoughts. 06/09: sleeping, minimally rousable. denies problems. continue current mgmt. 06/10: sleeping all day, up most of the night. minimally rousable. denies problems. continue current mgmt. per JAMAICA Arrington: Jean said when he leaves he can return to [facility]. he was living with a lady there and can go back. He plans to get a job to pay off his debt. He said he owes money because they sent him back here due to losing his passport and he owes them money for the temporary emergency passport and the flight back to the . so his main focus is to get a job. he said he will try things here first and if it doesn't work out he plans to return to [place]. 06/11/25: Passively engaged in conversation while in bed sleeping/resting. Able to answer question appropriately, but seems to be minimized. Denies SI/SIB/HI/AVH. He slept 5 hours last night, spent most of the day in bed sleeping. Attempted to no groups, observed out to the afternoon in the subramanian near the nurse station. No change in presentation. Encourage groups,up and engaged in groups. 06/12: not engaging. no complaints or questions re med changes. cross-taper zyprexa in favor of invega, give MONTERO invega. tonight, decrease zyprexa to 15 mg and start invega 3 mg. otherwise continue current mgmt. 06/13: continues avoidant and disengaged. denies side effects from med change last night. informed cross-titration will advance tonight. decrease zyprexa to 10 mg tonight, increase paliperidone to 6 mg. plan to continue by 5 mg zyprexa and 3 mg paliperidone increments every several days as tolerated until zyprexa DCed and paliperidone at 12 mg QHS. once it is established pt is tolerating PO Paliperidone, invega sustenna to be administered. 06/14: Continue current regimen and plans 06/15: Continue current plans and regimen 06/16: irritable re neuroleptic change. denies side effects or problems with it, however. minimally engageable. increase invega to 9 QHS and decrfease zyprexa to 5 QHS. 06/17/25: Continued to be irritable regarding medication change/titration. However engaged in conversation, hyper verbal, paranoid, reports medication slow his thoughts down and he does not not like it. Poor insight and poor judgment. He thinks he only need lithium, not other medications. Remind patient to continue doing the sleep pattern changing. However his in bed mostly this morning. Slept for 4-5 hours last night. 06/18/25: Slept for 5 hours last night as he continues sleeping during daytime. Compliant with meds, did not c/o side effects.Passingly engaging in assessment. Denies safety concerns. Tolerate the tritation well. Will increase Inveag up to max of 12 tomorrow and Discontinue Olanzepine at HS. Continue to encourage up and out on day so he can sleep better at HS. 06/19/25: Patient slept for 5.5 hours last night, was medication compliant, mostly in his room yesterday but seen more often in the evening. Patient is awake in his room, listen to music, his morning tray was taken away and clean the area. He is very pleasant to talk to today, reports he feels good, denies side effects from medications, denies any safety concerns. Denies feeling sedation, denies anxiety/depression. He is receptive with the plan of medication over the weekends and next week, happy to hear about the medication plan. He also agree with the MONTERO Invega Sustenna on Monday. Encourage him to go out and attended to groups, he said that he will. Reported that he was out for groups a couple of times last week. Discontinue Haldol p.r.n.. Discontinue scheduled Zyprexa 5 mg at bedtime. Only on Zyprexa at g IM daily p.r.n. as backup orders if refused Invega. Invega 12 mg at bedtime. Plan to monitor over the weekends and will give long-acting injection on Monday if tolerate with the p.o. well Reduce Seroquel 200 mg p.r.n. at bedtime to 100 p.r.n. at bedtime for insomnia. Seroquel 50 mg b.i.d. p.r.n. for agitation. Discontinue Motrin. Patient on lithium. Labs were for MondayJune 20: CMP, TSH with free T4. 06/20/25: In bed most of the day, was compliant with medication, however refused labs work. Re- scheduled for Monday. Continue with Invega 12 mg at bedtime. We will reassess and offer long-acting injection on Monday. Continue to encourage patient to get up and go to some groups. No safety concerns expressed. Minimal peer and staff interaction. 06/21: no change in presentation. start MONTERO monday. no s/e from invega. otherwise continue current mgmt. 06/22: stable. continue current mgmt. 06/23/25: More awake and alert. Review with patient regarding policy for his phone use BID 30min each time, patient is educated on compliant with policy. He asks for more 5-10 min extra headphone use at night on the weekends after 2300. Once again, redirected for unit rules. He agrees with MONTERO which is scheduled today. Discontinue Invega PO Invega Sustenna 234mg IM once. Will monitor for possible side effects and sedation. Will offer 156mg after 1 week. If mentaly stable with 156mg, will maintain at this dose, if not will offer 234mg Monthly. 06/24/25: Slept for 5 hours last night, but also went to bed around 7 tonight p.m. last night per his report. He also attended to groups in the afternoon yesterday. Compliant with medications. No side effects from Invega Sustenna. He is engaged in full conversation today why he is in bed, denies safety concerns. Observe he is on the unit, social with peers and staff in longer period of time. Appeared to be happy. He plans to take shower today. Reported that he was up early but he does not feel hungry in the morning. He is making progress, not too sedated during daytime since switching his medication. Appears to do well so far with Invega Sustenna. 06/25/25: Patient slept for 4 hours last night, however he reported was napping in the afternoon for couple hours which affect his sleeping pattern at night. Educate patient to not napping late in the evening. He is receptive. Compliant with medications, no side effects. He reports his did not shower yesterday but he will today. He is awake in his room not sleeping, engage in full conversation, no delusional or paranoid statements make. He is visible at times. Continued to improve in mood, engaging in other activities on the unit. Denies other safety concerns. Denies hallucinations. No irritability mood, not sedated during day time compared to when he was taking olanzapine. We will schedule Invega Sustenna 156 next Monday. Work with licensed clinical social worker to see where he will return to. He probably needs [facility]NA to manage medication. 06/26/25: He slept for 5 hours, compliant with medications. Denies side effects. He self-reported that he went to bed last night and was able to fall asleep by 01:00 and able to stay asleep whole night. Denies safety concerns. I spoke with him in length today regarding aftercare. He thinks he will go to the hospital in [place] to ask them regarding his heart condition. He thinks people was lying to get him to the hospital as he does not have mental health illnesses. He believes that he has been exactly the same he was seen he was a little, and at he able to remember everything in the past. He also reports that he used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
--- NOTE | 2025-07-21 14:16 | HO.PSYCHPN ---
Subjective Subjective Date of Service: 07/21/25 Reason For Visit: psychotic disorder Interim History: no change in presentation. lying in bed, rousable. no questions or complaints. per staff, sleeping well with PRN seroquel. no change in presentation. Mental Status Exam Mental Status Exam Narrative: in bed. fair eye contact with exopthalmos. No PMA/PMR. cooperative. speech nml rate, decr amount and loudness. thoughts linear and logical. affect constricted, normo-intense. mood not assessed. no questions or complaints. No SI/SIB/HI/AVH expressed. Diagnostics Vital Signs (24Hr): Vital Signs - 24 hr 07/20/25 20:00 Temperature 99 F Pulse Rate 76 Respiratory Rate 16 Blood Pressure 128/67 Pulse Oximetry 98 Oxygen Delivery Method Room Air BMI result Body Mass Index 23.2 Labs 06/25/25 08:02 06/20/25 20:35 Medications Medications Current Medications Acetaminophen (Acetaminophen 325 Mg Tablet) 650 mg PO Q4H PRN PRN Reason: Pain, Mild (Pain Scale 1-3) Last Admin: 07/06/25 22:53 Dose: 650 mg Al Hydroxide/Mg Hydroxide (Magnesium Hydrox/Alum Hydrox 30 Ml Oral.Susp) 30 ml PO Q6H PRN PRN Reason: Heart burn Benzocaine (Benzocaine 20 % Oral Gel 14 Gm Tube) 1 appl MUCOUS MEM QID PRN; Protocol PRN Reason: Mouth Sore Pain Last Admin: 04/26/25 18:33 Dose: 1 appl Diazepam (Diazepam 10 Mg/2 Ml Cartridge) 10 mg IM BID PRN PRN Reason: refusal of lithium, mary floyd Last Admin: 04/11/25 09:56 Dose: 10 mg Glycopyrrolate (Glycopyrrolate 1 Mg Tablet) 1 mg PO BID [facility] Last Admin: 07/21/25 09:03 Dose: 1 mg Hydrocortisone (Hydrocortisone 1 % Cream 28.35 Gm Tube) 1 appl TOPICAL DAILY PRN; Protocol PRN Reason: rash Last Admin: 07/17/25 23:13 Dose: 1 appl Malone Carbonate (Malone Carbonate Er 300 Mg Tablet.Er) 600 mg PO DAILY [facility] Last Admin: 07/21/25 09:03 Dose: 600 mg Malone Carbonate (Malone Carbonate Er 450 Mg Tablet.Er) 900 mg PO DAILY@2300 [facility] Last Admin: 07/20/25 22:49 Dose: 900 mg Magnesium Hydroxide (Milk Of Magnesia 30 Ml Oral.Susp) 30 ml PO DAILY PRN PRN Reason: Constipation Methimazole (Methimazole 10 Mg Tablet) 10 mg PO DAILY KRISTAL Last Admin: 07/21/25 09:03 Dose: 10 mg Nicotine (Nicotine 21 Mg Patch.Td24) 21 mg TRANSDERMA DAILY PRN PRN Reason: nicotine cravings Last Admin: 04/12/25 17:06 Dose: 21 mg Nicotine Polacrilex (Nicotine Polacrilex Lozenge 2 Mg Lozenge) 2 mg BUCCAL Q1H PRN PRN Reason: Nicotine Cravings Last Admin: 04/30/25 08:49 Dose: 2 mg Patient Own Medication Excedrin 250/250/65mg 2 each PO Q8H PRN PRN Reason: Migraine Headache Last Admin: 07/16/25 22:13 Dose: 2 each Olanzapine (Olanzapine 10 Mg Vial) 10 mg IM DAILY PRN PRN Reason: if refuse Invega PO Paliperidone Palmitate (Paliperidone Palmitate 234 Mg/1.5 Ml Syringe) 234 mg IM Q30D KRISTAL Pseudoephedrine HCl (Pseudoephedrine Hcl 30 Mg Tablet) 30 mg PO Q6H PRN PRN Reason: Congestion Last Admin: 07/03/25 21:18 Dose: 30 mg Quetiapine Fumarate (Quetiapine Fumarate 100 Mg Tablet) 100 mg PO BEDTIME PRN PRN Reason: insomnia Last Admin: 07/20/25 22:49 Dose: 100 mg Quetiapine Fumarate (Quetiapine Fumarate 50 Mg Tablet) 50 mg PO BID PRN PRN Reason: agitation Last Admin: 07/19/25 22:35 Dose: 50 mg Sodium Chloride (Sodium Chloride 0.65 % Nasal 44 Ml Sprbtl) 1 spray NOSTRIL-B Q4H PRN PRN Reason: Congestion Last Admin: 07/03/25 23:03 Dose: 1 spray Allergies Allergies Allergy/AdvReac Type Severity Reaction Status Date / Time No Known Allergies Allergy Verified 03/26/25 14:24 Assessment & Plan Assessment & Plan (1) Graves disease: Status: Acute Code(s): E05.00 - Thyrotoxicosis with diffuse goiter without thyrotoxic crisis or storm Assessment and Plan: Hyperthyroidism/Graves disease. He will need follow up with endocrinology as an outpatient He will also need a primary care doctor referral as an outpatient Discussed with Dr. Bejarano, patient will need free T4 weekly Decrease Methimazole to 15 mgs daily for three days and then 10 mgs daily- discussed with patient he is aware of plan and rationale. TSH and free T4 every 4 weeks. No need to draw thyroid stimulation immunology or TSH receptor AB (2) Dental abscess: Status: Acute Code(s): K04.7 - Periapical abscess without sinus Assessment and Plan: Carious tooth/dental infection Recently treated with PEN VK 500 mg q.6 hours for 7 days Patient will need follow up with dentist on discharge for tooth extraction Motrin helping pain. (3) Becca: Status: Acute Code(s): F30.9 - Manic episode, unspecified Plan 03/26: offer lithium and seroquel for becca. continue methimazole and beta joanne for hyperthyroidism as started at [facility]. trend TFTs. 12b. 03/27: taking methimazole and beta joanne. refused HS meds last night, took morning meds today. continue to encourage medication compliance. 03/28: intermittently taking meds. wants all meds in morning. pressured, manic, paranoid delusions. encouraged to take lithium but states he will not. all meds ordered for morning. 03/29: Keeping to self. no groups. observed laying in bed listening to music on unit headphones. pleasant. Pt reports feeling good today and sleeping well. declined lithium and zyprexa. denies SI/HI/VH/AH. continue current tx plan. 03/30:Irritable. upset he was unable to use his personal hygiene products. Per nursing, pt threatened staff and squeezed tooth paste throughout unit hallway to show his frustration. Pt was able to calm down after speaking with security. declined medications. 03/31: Keeping to self. laying in bed listening to music. refused medications. calm today. Patient reports feeling great ; pt stated, nothing is wrong with me. I'm waiting so I can leave tomorrow. I'm hoping for the best . denies SI/HI/VH/AH. per nursing, slept 6 hours. Continue current tx plan. 04/01: variably calm on the unit versus highly agitated. paranoid delusions, irritability, lability continue. seems to believe MD has met him prior to the present hospitalization and is stalking him. believes brother behind conspiracy to have him psychiatrically hospitalized. has been refusing all medications, including for hyperthyroidism. informed he would be filed on. filed. continue to offer medications. 04/02: continues agitated, belittling, verbally aggressive, refusing all medications including for hyperthyroidism. continue to offer medication. 04/03: paranoid there is a conspiracy to hospitalize him. threatening to stick a stick in staff once he is released by [facility] [employer]. insists his hyperthyroidism was cured at [facility]. asserts there is NOTHING wrong with him. continue to offer medication. 04/04: irritable, rejecting. verbally abuses MD and sends him away: see you on monday [in court]. continue to offer medication for thyroid condition and mental illness. 04/05 continue tx. suspicious and guarded, accusatory, verbal threats to hurt staff and peers 04/06 intrusive, posturing towards staff and peer who he thinks is not real and is an impostor, continues to make verbal threats to harm him but thinks that because he is not real he may not experience any pain. 04/07: threatening statements and behaviors of yesterday noted. pt sleeping this morning, dismissive of MD. 04/08: asleep days. committed and meds ordered by court. 04/09: on being informed of court order and MD insisting on meds, pt escalated to hurling food item in container against wall at high speed and saying he wished he could do the same to MD's head. pt eventually took court ordered meds PO. sensodyne and excedrin not available in pharmacy (pt requesting them). 04/10: continue tx. Pt accepting medication today. 04/11: Keeping to self. Lying in bed most of morning. Declined to meet with T/W. Pt stated, I'm fine. I don't need anything . Listening to headphones in room. Declined court ordered PO medications; received IM medications. Refused vital signs.continue tx plan. 04/12: got IMs yesterday, took PO this morning. sleepy, no concerns or complaints. 04/13: taking PO meds again. slept 7 hours. sleepy again mid morning refusing interview. continue current mgmt. 04/14: sleeping, rousable. denies being sedated or tired, says he's just bored. no questions or complaints. informed of need to check labs. check lithium level and thyroid labs tonight. 04/15: refusing labs. delusional re his brother harming him. verbally abusive toward MD. spat in floor. happy with improvement in proptosis. 04/16: Lying in bed. Calm. cooperative. guarded. Pt reports feeling tired this morning d/t poor sleep last night. Pt stated, I don't need anything. I didn't sleep well so I'm trying to catch up . denies any issues at this time. denies SI/HI/VH/AH. Continue current tx plan. 04/17: more calm today, less explosive. continue current mgmt. 04/18: continues more calm. tolerating moments of frustration without verbally attacking MD. slept only 2 hours overnight, however. continue current mgmt. 04/19 continues to push boundaries and limits with staff mike around cell phone- 04/20 - aggressive with staff and unpredictable- threw water pitcher at staff behind desk/-when seen by provider passive in bed-denying all compaints/sys- no insight 04/21: appears as per last week. more difficult behaviors around cell phone use, did throw pitcher of water at RN monday over phone use and was restrained. continue current mgmt. 04/22: continues to have conflict around cell phone use. consolidate zyprexa at HS to decrease daytime sedation. 1:1 allegra shift until peer he is accusing of not being a real patient and appears to be targeting discharges tomorrow. 04/23: lithium 0.6 on 600 BID. sleeping better, remains delusional (telling SW who is marginally younger than him that she could be his daughter). just changed zyprexa dosing as of last night. continue current regimen and observe for continued stabilization. T/C slight increase in lithium dosing. 04/24: Laying in bed. guarded. calm. did not want to get out of bed to meet with T/W. Pt reports feeling great today but declined to go into detail. listening to music on unit headphones. Pt stated, I'm fine. I don't need anything . denies any issues at this time. denies SI/HI/VH/AH. Continue current tx plan. 04/25: Laying in bed. keeping to self. calm. paranoid. Discussed incident that occurred with staff last evening. Pt stated, the counselor made up a lie yesterday. I said she looks like my ex-girlfriend. I know they are related. They want to make up a lie to irritate me. They are trying to talk to me so they can use recording devices and make me look some kind of way . listening to music on unit headphones. denies SI/HI/VH/AH. Continue current tx plan. 04/26: Continue current regimen and plans. Increase Zyprexa 20 mg q.h.s. fresh air break withheld 04/27: Continue current regimen and plans 04/28: somewhat less irritable and agitated than last week. however, over the weekend was claiming he was the father of a footballer on TV and also that a staff member is a twin of his ex-GF (and he pushed staff member). TFTs improving. continue current mgmt. 04/29: no change in presentation. continue current mgmt. 04/30: no irritable edge today. calm, pleasant. engaging in small talk. reality testing not pressed. continue current mgmt for now. 05/01: no change in presentation. continue current mgmt. 05/02: BPs coming down, DC beta joanne as pt has been refusing anyway. remains not antagonistic toward MD. using phone appropriately. continue current mgmt otherwise. 05/03 continue 05/04: remains delusional, irritable/labile when delusional system confronted. declines to sign TOMMY for [facility] records. continue current mgmt. 05/06: declining to meet with MD, but does meet with medical student. remains upset about yesterday's confrontation re his delusional system. 05/07: Active on unit. keeping to self. pacing unit hallway while listening to unit headphones. medication compliant. patient reports feeling good ; pt stated, I'm just waiting to leave here. I want to return to my life and do things like go grocery shopping . denies SI/HI/VH/AH. Continue current tx plan. 05/08: stable presentation, delusions not being brought to the surface daily. remains affectively improved from admission. continue current mgmt. 05/09: calm, pleasant. no questions or complaints. continue current mgmt. 05/10: no change in presentation. due to lack of improvement in dental infection Sx, DC PCN and start augmentin. 05/11: no change in presentation. continue current mgmt. 05/12: as for yesterday. dental pain improving a bit. 05/13: expressed to medical student that his brother poisoned him, causing his thyroid disease. no change in presentation. continue current mgmt. 05/14: Pacing unit hallway. keeping to self. patient reports feeling good today; denies any issues at this time. denies SI/HI/VH/AH. per nursing, slept 5 hours. Continue current tx plan. 05/15: slept 6 hours. otherwise isolative, difficult to engage. continue current mgmt. 05/16: slept 7 hours. as for yesterday otherwise. 05/17/25: Slept well, no issue with appetite, skinny and pretty tall. Compliant with medication. No side effects Calm and pleasant upon approach. Some what paranoid. Tangential, however denies other safety concerns. Questions if he is discharging soon. He is on antibiotic for 7 days for mouth pain/tooth pain. We will finish the 7 course up in antibiotic after tonight dose. Then discontinue. 05/18/25: Slept for 5 hours plus hours this morning. In bed most of the shift, no behavior issues. Denies other safety concerns. 05/19: in bed days, up eves. no change in presentation. continue current mgmt. 05/20: no change in presentation. check labs. 05/21: lithium low, TFTs mixed and not all back. increase lithium from 600 BID to 600/900. trend BUN/Cr, with slight elevation. otherwise continue current mgmt. 05/22: no change in presentation. continue current mgmt. 05/23: does not deny someone stole his sperm and impregnated his landlord's child with it. irritable. c/o dental pain, antibx restarted. otherwise continue current mgmt. 05/14: no change in mgt 05/25: more isolative today; no change in mgt 05/26: decreases in methimazole noted. continue psych regimen as is. pt refused to interact with MD today. 05/27: i'm sleeping. no change in presentation. labs tonight. 05/28: no change in behavior. lithium 0.66, BUN stable. continue current mgmt. 05/29: irritable. continue current mgmt. 05/30: no longer in single room. still not engaging, sleeping days. continue current mgmt. 05/31:laying in bed. declined to meet with T/W. pt stated, I want to sleep. I didn't sleep enough . Pt encouraged to reach out to staff if he needs anything. Continue current tx plan. 06/01: Similar to yesterday. laying in bed. Irritable. declined to meet with T/W and pulled bed sheets over head. pt stated, I don't want to talk. I want to sleep . difficult to engage. Continue current tx plan. 06/02: Similar to yesterday. laying in bed. Irritable. declined to meet with T/W. Observed getting drink from kitchen; T/W approached pt and asked if they could speak. patient declined to acknowledge T/W and walked past. Continue current tx plan. 06/03: no change in behavior. continue tx plan. 06/04/25: Passive engaged in the assessment, in bed mostly sleeping this morning which could be interfere with his nighttime. Cover body under the blanket Slept for 4-5 hours last night. Was medication compliant, attended no groups, isolative to self in room. No SI/SIB/HI/AVH expressed. 06/05: continue tx plan. 06/06: reports feeling fine ; continues guarded. difficult to engage. declining to meet with T/W. continue tx plan. 06/07/25: Slept for 4 hours at night, but has been sleeping most of the day yesterday as well. Spent majority of the shift in bed, was medication compliant. Passive engaged in the conversation. He said he will try to change the sleeping pattern so that he can be awake more during the daytime. Appear to be sedated in the morning. No safety behavior. 06/08/25: Slept for 3-4 hours last night, compliant with medications. Denies side effects, denies other safety concerns. Continued to encourage patient to up and down more than on the unit he spent most of the day sleeping. He is pleasant upon approach. No other behavior issues. Denied voices/hallucinations. Suicide thoughts or homicidal thoughts. 06/09: sleeping, minimally rousable. denies problems. continue current mgmt. 06/10: sleeping all day, up most of the night. minimally rousable. denies problems. continue current mgmt. per JAMAICA Arrington: Jean said when he leaves he can return to [place]. he was living with a lady there and can go back. He plans to get a job to pay off his debt. He said he owes money because they sent him back here due to losing his passport and he owes them money for the temporary emergency passport and the flight back to the . so his main focus is to get a job. he said he will try things here first and if it doesn't work out he plans to return to [place]. 06/11/25: Passively engaged in conversation while in bed sleeping/resting. Able to answer question appropriately, but seems to be minimized. Denies SI/SIB/HI/AVH. He slept 5 hours last night, spent most of the day in bed sleeping. Attempted to no groups, observed out to the afternoon in the subramanian near the nurse station. No change in presentation. Encourage groups,up and engaged in groups. 06/12: not engaging. no complaints or questions re med changes. cross-taper zyprexa in favor of invega, give MONTERO invega. tonight, decrease zyprexa to 15 mg and start invega 3 mg. otherwise continue current mgmt. 06/13: continues avoidant and disengaged. denies side effects from med change last night. informed cross-titration will advance tonight. decrease zyprexa to 10 mg tonight, increase paliperidone to 6 mg. plan to continue by 5 mg zyprexa and 3 mg paliperidone increments every several days as tolerated until zyprexa DCed and paliperidone at 12 mg QHS. once it is established pt is tolerating PO Paliperidone, invega sustenna to be administered. 06/14: Continue current regimen and plans 06/15: Continue current plans and regimen 06/16: irritable re neuroleptic change. denies side effects or problems with it, however. minimally engageable. increase invega to 9 QHS and decrfease zyprexa to 5 QHS. 06/17/25: Continued to be irritable regarding medication change/titration. However engaged in conversation, hyper verbal, paranoid, reports medication slow his thoughts down and he does not not like it. Poor insight and poor judgment. He thinks he only need lithium, not other medications. Remind patient to continue doing the sleep pattern changing. However his in bed mostly this morning. Slept for 4-5 hours last night. 06/18/25: Slept for 5 hours last night as he continues sleeping during daytime. Compliant with meds, did not c/o side effects.Passingly engaging in assessment. Denies safety concerns. Tolerate the tritation well. Will increase Inveag up to max of 12 tomorrow and Discontinue Olanzepine at HS. Continue to encourage up and out on day so he can sleep better at HS. 06/19/25: Patient slept for 5.5 hours last night, was medication compliant, mostly in his room yesterday but seen more often in the evening. Patient is awake in his room, listen to music, his morning tray was taken away and clean the area. He is very pleasant to talk to today, reports he feels good, denies side effects from medications, denies any safety concerns. Denies feeling sedation, denies anxiety/depression. He is receptive with the plan of medication over the weekends and next week, happy to hear about the medication plan. He also agree with the MONTERO Invega Sustenna on Monday. Encourage him to go out and attended to groups, he said that he will. Reported that he was out for groups a couple of times last week. Discontinue Haldol p.r.n.. Discontinue scheduled Zyprexa 5 mg at bedtime. Only on 10 Zyprexa at g IM daily p.r.n. as backup orders if refused Invega. Invega 12 mg at bedtime. Plan to monitor over the weekends and will give long-acting injection on Monday if tolerate with the p.o. well Reduce Seroquel 200 mg p.r.n. at bedtime to 100 p.r.n. at bedtime for insomnia. Seroquel 50 mg b.i.d. p.r.n. for agitation. Discontinue Motrin. Patient on lithium. Labs were for MondayJune 20: CMP, TSH with free T4. 06/20/25: In bed most of the day, was compliant with medication, however refused labs work. Re- scheduled for Monday. Continue with Invega 12 mg at bedtime. We will reassess and offer long-acting injection on Monday. Continue to encourage patient to get up and go to some groups. No safety concerns expressed. Minimal peer and staff interaction. 06/21: no change in presentation. start MONTERO monday. no s/e from invega. otherwise continue current mgmt. 06/22: stable. continue current mgmt. 06/23/25: More awake and alert. Review with patient regarding policy for his phone use BID 30min each time, patient is educated on compliant with policy. He asks for more 5-10 min extra headphone use at night on the weekends after 0. Once again, redirected for unit rules. He agrees with MONTERO which is scheduled today. Discontinue Invega PO Invega Sustenna 234mg IM once. Will monitor for possible side effects and sedation. Will offer 156mg after 1 week. If mentaly stable with 156mg, will maintain at this dose, if not will offer 234mg Monthly. 06/24/25: Slept for 5 hours last night, but also went to bed around 7 tonight p.m. last night per his report. He also attended to groups in the afternoon yesterday. Compliant with medications. No side effects from Invega Sustenna. He is engaged in full conversation today why he is in bed, denies safety concerns. Observe he is on the unit, social with peers and staff in longer period of time. Appeared to be happy. He plans to take shower today. Reported that he was up early but he does not feel hungry in the morning. He is making progress, not too sedated during daytime since switching his medication. Appears to do well so far with Invega Sustenna. 06/25/25: Patient slept for 4 hours last night, however he reported was napping in the afternoon for couple hours which affect his sleeping pattern at night. Educate patient to not napping late in the evening. He is receptive. Compliant with medications, no side effects. He reports his did not shower yesterday but he will today. He is awake in his room not sleeping, engage in full conversation, no delusional or paranoid statements make. He is visible at times. Continued to improve in mood, engaging in other activities on the unit. Denies other safety concerns. Denies hallucinations. No irritability mood, not sedated during day time compared to when he was taking olanzapine. We will schedule Invega Sustenna 156 next Monday. Work with social media strategist to see where he will return to. He probably needs [facility] to manage medication. 06/26/25: He slept for 5 hours, compliant with medications. Denies side effects. He self-reported that he went to bed last night and was able to fall asleep by 01:00 and able to stay asleep whole night. Denies safety concerns. I spoke with him in length today regarding aftercare. He thinks he will go to the hospital in [place] to ask them regarding his heart condition. He thinks people was lying to get him to the hospital as he does not have mental health illnesses. He believes that he has been exactly the same he was seen he was a little, and at he able to remember everything in the past. He also reports that he used to use [facility] in [place]. At he does not want [facility] application. I explained to him that in order to be a candidate patient have to be a safe that he has mental health issues, so people can submit the application, and from the [facility] worker will contact him to do assessment if he qualify for any services that they can provide. Patient is receptive application, social media strategist was notified. Patient also would like to have services with [facility] in [place]. He showered yesterday morning, did not go to groups yesterday, but he will go to some groups today per his plan for the day, more awake, engaged in conversation, no irritability. However, continued to be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
[2025-07-21 19:20] VITALS: BP 151/80; PULSE 87; RESP 16; TEMP 36.5; O2SAT 100
[2025-07-22 07:35] VITALS: BP 119/62; PULSE 74; RESP 12; TEMP 36.3; O2SAT 98
--- NOTE | 2025-07-22 13:28 | HO.PSYCHPN ---
Subjective Subjective Date of Service: 07/22/25 Reason For Visit: psychotic disorder Interim History: no change in presentation. brother visiting today. awaiting [facility] respite bed. slept 8 hours. Mental Status Exam Mental Status Exam Narrative: in bed. cooperative. speech nml rate, decr amount and loudness. thoughts linear and logical. mood not assessed. no questions or complaints. No SI/SIB/HI/AVH expressed. Diagnostics Vital Signs (24Hr): Vital Signs - 24 hr 07/21/25 19:20 07/22/25 07:35 Temperature 97.7 F 97.3 F Pulse Rate 87 74 Respiratory Rate 16 12 Blood Pressure 151/80 H 119/62 Pulse Oximetry 100 98 Oxygen Delivery Method Room Air Room Air BMI result Body Mass Index 23.2 Labs 06/25/25 08:02 06/20/25 20:35 Medications Medications Current Medications Acetaminophen (Acetaminophen 325 Mg Tablet) 650 mg PO Q4H PRN PRN Reason: Pain, Mild (Pain Scale 1-3) Last Admin: 07/06/25 22:53 Dose: 650 mg Al Hydroxide/Mg Hydroxide (Magnesium Hydrox/Alum Hydrox 30 Ml Oral.Susp) 30 ml PO Q6H PRN PRN Reason: Heart burn Benzocaine (Benzocaine 20 % Oral Gel 14 Gm Tube) 1 appl MUCOUS MEM QID PRN; Protocol PRN Reason: Mouth Sore Pain Last Admin: 04/26/25 18:33 Dose: 1 appl Diazepam (Diazepam 10 Mg/2 Ml Cartridge) 10 mg IM BID PRN PRN Reason: refusal of lithium, mary floyd Last Admin: 04/11/25 09:56 Dose: 10 mg Glycopyrrolate (Glycopyrrolate 1 Mg Tablet) 1 mg PO BID [facility] Last Admin: 07/22/25 09:48 Dose: 1 mg Hydrocortisone (Hydrocortisone 1 % Cream 28.35 Gm Tube) 1 appl TOPICAL DAILY PRN; Protocol PRN Reason: rash Last Admin: 07/17/25 23:13 Dose: 1 appl Smoot Carbonate (Smoot Carbonate Er 300 Mg Tablet.Er) 600 mg PO DAILY [facility] Last Admin: 07/22/25 09:48 Dose: 600 mg Smoot Carbonate (Smoot Carbonate Er 450 Mg Tablet.Er) 900 mg PO DAILY@2300 [facility] Last Admin: 07/21/25 22:06 Dose: 900 mg Magnesium Hydroxide (Milk Of Magnesia 30 Ml Oral.Susp) 30 ml PO DAILY PRN PRN Reason: Constipation Methimazole (Methimazole 10 Mg Tablet) 10 mg PO DAILY KRISTAL Last Admin: 07/22/25 09:48 Dose: 10 mg Nicotine (Nicotine 21 Mg Patch.Td24) 21 mg TRANSDERMA DAILY PRN PRN Reason: nicotine cravings Last Admin: 04/12/25 17:06 Dose: 21 mg Nicotine Polacrilex (Nicotine Polacrilex Lozenge 2 Mg Lozenge) 2 mg BUCCAL Q1H PRN PRN Reason: Nicotine Cravings Last Admin: 04/30/25 08:49 Dose: 2 mg Patient Own Medication Excedrin 250/250/65mg 2 each PO Q8H PRN PRN Reason: Migraine Headache Last Admin: 07/16/25 22:13 Dose: 2 each Olanzapine (Olanzapine 10 Mg Vial) 10 mg IM DAILY PRN PRN Reason: if refuse Invega PO Paliperidone Palmitate (Paliperidone Palmitate 234 Mg/1.5 Ml Syringe) 234 mg IM Q30D KRISTAL Pseudoephedrine HCl (Pseudoephedrine Hcl 30 Mg Tablet) 30 mg PO Q6H PRN PRN Reason: Congestion Last Admin: 07/03/25 21:18 Dose: 30 mg Quetiapine Fumarate (Quetiapine Fumarate 100 Mg Tablet) 100 mg PO BEDTIME PRN PRN Reason: insomnia Last Admin: 07/21/25 22:09 Dose: 100 mg Quetiapine Fumarate (Quetiapine Fumarate 50 Mg Tablet) 50 mg PO BID PRN PRN Reason: agitation Last Admin: 07/19/25 22:35 Dose: 50 mg Sodium Chloride (Sodium Chloride 0.65 % Nasal 44 Ml Sprbtl) 1 spray NOSTRIL-B Q4H PRN PRN Reason: Congestion Last Admin: 07/03/25 23:03 Dose: 1 spray Allergies Allergies Allergy/AdvReac Type Severity Reaction Status Date / Time No Known Allergies Allergy Verified 03/26/25 14:24 Assessment & Plan Assessment & Plan (1) Graves disease: Status: Acute Code(s): E05.00 - Thyrotoxicosis with diffuse goiter without thyrotoxic crisis or storm Assessment and Plan: Hyperthyroidism/Graves disease. He will need follow up with endocrinology as an outpatient He will also need a primary care doctor referral as an outpatient Discussed with Dr. Bejarano, patient will need free T4 weekly Decrease Methimazole to 15 mgs daily for three days and then 10 mgs daily- discussed with patient he is aware of plan and rationale. TSH and free T4 every 4 weeks. No need to draw thyroid stimulation immunology or TSH receptor AB (2) Dental abscess: Status: Acute Code(s): K04.7 - Periapical abscess without sinus Assessment and Plan: Carious tooth/dental infection Recently treated with PEN VK 500 mg q.6 hours for 7 days Patient will need follow up with dentist on discharge for tooth extraction Motrin helping pain. (3) Becca: Status: Acute Code(s): F30.9 - Manic episode, unspecified Plan 03/26: offer lithium and seroquel for becca. continue methimazole and beta joanne for hyperthyroidism as started at [facility]. trend TFTs. 12b. 03/27: taking methimazole and beta joanne. refused HS meds last night, took morning meds today. continue to encourage medication compliance. 03/28: intermittently taking meds. wants all meds in morning. pressured, manic, paranoid delusions. encouraged to take lithium but states he will not. all meds ordered for morning. 03/29: Keeping to self. no groups. observed laying in bed listening to music on unit headphones. pleasant. Pt reports feeling good today and sleeping well. declined lithium and zyprexa. denies SI/HI/VH/AH. continue current tx plan. 03/30:Irritable. upset he was unable to use his personal hygiene products. Per nursing, pt threatened staff and squeezed tooth paste throughout unit hallway to show his frustration. Pt was able to calm down after speaking with security. declined medications. 03/31: Keeping to self. laying in bed listening to music. refused medications. calm today. Patient reports feeling great ; pt stated, nothing is wrong with me. I'm waiting so I can leave tomorrow. I'm hoping for the best . denies SI/HI/VH/AH. per nursing, slept 6 hours. Continue current tx plan. 04/01: variably calm on the unit versus highly agitated. paranoid delusions, irritability, lability continue. seems to believe MD has met him prior to the present hospitalization and is stalking him. believes brother behind conspiracy to have him psychiatrically hospitalized. has been refusing all medications, including for hyperthyroidism. informed he would be filed on. filed. continue to offer medications. 04/02: continues agitated, belittling, verbally aggressive, refusing all medications including for hyperthyroidism. continue to offer medication. 04/03: paranoid there is a conspiracy to hospitalize him. threatening to stick a stick in staff once he is released by media production manager. insists his hyperthyroidism was cured at [facility]. asserts there is NOTHING wrong with him. continue to offer medication. 04/04: irritable, rejecting. verbally abuses MD and sends him away: see you on monday [in court]. continue to offer medication for thyroid condition and mental illness. 04/05 continue tx. suspicious and guarded, accusatory, verbal threats to hurt staff and peers 04/06 intrusive, posturing towards staff and peer who he thinks is not real and is an impostor, continues to make verbal threats to harm him but thinks that because he is not real he may not experience any pain. 04/07: threatening statements and behaviors of yesterday noted. pt sleeping this morning, dismissive of MD. 04/08: asleep days. committed and meds ordered by court. 04/09: on being informed of court order and MD insisting on meds, pt escalated to hurling food item in container against wall at high speed and saying he wished he could do the same to MD's head. pt eventually took court ordered meds PO. sensodyne and excedrin not available in pharmacy (pt requesting them). 04/10: continue tx. Pt accepting medication today. 04/11: Keeping to self. Lying in bed most of morning. Declined to meet with T/W. Pt stated, I'm fine. I don't need anything . Listening to headphones in room. Declined court ordered PO medications; received IM medications. Refused vital signs.continue tx plan. 04/12: got IMs yesterday, took PO this morning. sleepy, no concerns or complaints. 04/13: taking PO meds again. slept 7 hours. sleepy again mid morning refusing interview. continue current mgmt. 04/14: sleeping, rousable. denies being sedated or tired, says he's just bored. no questions or complaints. informed of need to check labs. check lithium level and thyroid labs tonight. 04/15: refusing labs. delusional re his brother harming him. verbally abusive toward MD. spat in floor. happy with improvement in proptosis. 04/16: Lying in bed. Calm. cooperative. guarded. Pt reports feeling tired this morning d/t poor sleep last night. Pt stated, I don't need anything. I didn't sleep well so I'm trying to catch up . denies any issues at this time. denies SI/HI/VH/AH. Continue current tx plan. 04/17: more calm today, less explosive. continue current mgmt. 04/18: continues more calm. tolerating moments of frustration without verbally attacking MD. slept only 2 hours overnight, however. continue current mgmt. 04/19 continues to push boundaries and limits with staff mike around cell phone- 04/20 - aggressive with staff and unpredictable- threw water pitcher at staff behind desk/-when seen by provider passive in bed-denying all compaints/sys- no insight 04/21: appears as per last week. more difficult behaviors around cell phone use, did throw pitcher of water at RN monday over phone use and was restrained. continue current mgmt. 04/22: continues to have conflict around cell phone use. consolidate zyprexa at HS to decrease daytime sedation. 1:1 allegra shift until peer he is accusing of not being a real patient and appears to be targeting discharges tomorrow. 04/23: lithium 0.6 on 600 BID. sleeping better, remains delusional (telling SW who is marginally younger than him that she could be his daughter). just changed zyprexa dosing as of last night. continue current regimen and observe for continued stabilization. T/C slight increase in lithium dosing. 04/24: Laying in bed. guarded. calm. did not want to get out of bed to meet with T/W. Pt reports feeling great today but declined to go into detail. listening to music on unit headphones. Pt stated, I'm fine. I don't need anything . denies any issues at this time. denies SI/HI/VH/AH. Continue current tx plan. 04/25: Laying in bed. keeping to self. calm. paranoid. Discussed incident that occurred with staff last evening. Pt stated, the counselor made up a lie yesterday. I said she looks like my ex-girlfriend. I know they are related. They want to make up a lie to irritate me. They are trying to talk to me so they can use recording devices and make me look some kind of way . listening to music on unit headphones. denies SI/HI/VH/AH. Continue current tx plan. 04/26: Continue current regimen and plans. Increase Zyprexa 20 mg q.h.s. fresh air break withheld 04/27: Continue current regimen and plans 04/28: somewhat less irritable and agitated than last week. however, over the weekend was claiming he was the father of a footballer on TV and also that a staff member is a twin of his ex-GF (and he pushed staff member). TFTs improving. continue current mgmt. 04/29: no change in presentation. continue current mgmt. 04/30: no irritable edge today. calm, pleasant. engaging in small talk. reality testing not pressed. continue current mgmt for now. 05/01: no change in presentation. continue current mgmt. 05/02: BPs coming down, DC beta joanne as pt has been refusing anyway. remains not antagonistic toward MD. using phone appropriately. continue current mgmt otherwise. 05/03 continue 05/04: remains delusional, irritable/labile when delusional system confronted. declines to sign TOMMY for [facility] records. continue current mgmt. 05/06: declining to meet with MD, but does meet with medical student. remains upset about yesterday's confrontation re his delusional system. 05/07: Active on unit. keeping to self. pacing unit hallway while listening to unit headphones. medication compliant. patient reports feeling good ; pt stated, I'm just waiting to leave here. I want to return to my life and do things like go grocery shopping . denies SI/HI/VH/AH. Continue current tx plan. 05/08: stable presentation, delusions not being brought to the surface daily. remains affectively improved from admission. continue current mgmt. 05/09: calm, pleasant. no questions or complaints. continue current mgmt. 05/10: no change in presentation. due to lack of improvement in dental infection Sx, DC PCN and start augmentin. 05/11: no change in presentation. continue current mgmt. 05/12: as for yesterday. dental pain improving a bit. 05/13: expressed to medical student that his brother poisoned him, causing his thyroid disease. no change in presentation. continue current mgmt. 05/14: Pacing unit hallway. keeping to self. patient reports feeling good today; denies any issues at this time. denies SI/HI/VH/AH. per nursing, slept 5 hours. Continue current tx plan. 05/15: slept 6 hours. otherwise isolative, difficult to engage. continue current mgmt. 05/16: slept 7 hours. as for yesterday otherwise. 05/17/25: Slept well, no issue with appetite, skinny and pretty tall. Compliant with medication. No side effects Calm and pleasant upon approach. Some what paranoid. Tangential, however denies other safety concerns. Questions if he is discharging soon. He is on antibiotic for 7 days for mouth pain/tooth pain. We will finish the 7 course up in antibiotic after tonight dose. Then discontinue. 05/18/25: Slept for 5 hours plus hours this morning. In bed most of the shift, no behavior issues. Denies other safety concerns. 05/19: in bed days, up eves. no change in presentation. continue current mgmt. 05/20: no change in presentation. check labs. 05/21: lithium low, TFTs mixed and not all back. increase lithium from 600 BID to 600/900. trend BUN/Cr, with slight elevation. otherwise continue current mgmt. 05/22: no change in presentation. continue current mgmt. 05/23: does not deny someone stole his sperm and impregnated his landlord's child with it. irritable. c/o dental pain, antibx restarted. otherwise continue current mgmt. 05/14: no change in mgt 05/25: more isolative today; no change in mgt 05/26: decreases in methimazole noted. continue psych regimen as is. pt refused to interact with MD today. 05/27: i'm sleeping. no change in presentation. labs tonight. 05/28: no change in behavior. lithium 0.66, BUN stable. continue current mgmt. 05/29: irritable. continue current mgmt. 05/30: no longer in single room. still not engaging, sleeping days. continue current mgmt. 05/31:laying in bed. declined to meet with T/W. pt stated, I want to sleep. I didn't sleep enough . Pt encouraged to reach out to staff if he needs anything. Continue current tx plan. 06/01: Similar to yesterday. laying in bed. Irritable. declined to meet with T/W and pulled bed sheets over head. pt stated, I don't want to talk. I want to sleep . difficult to engage. Continue current tx plan. 06/02: Similar to yesterday. laying in bed. Irritable. declined to meet with T/W. Observed getting drink from kitchen; T/W approached pt and asked if they could speak. patient declined to acknowledge T/W and walked past. Continue current tx plan. 06/03: no change in behavior. continue tx plan. 06/04/25: Passive engaged in the assessment, in bed mostly sleeping this morning which could be interfere with his nighttime. Cover body under the blanket Slept for 4-5 hours last night. Was medication compliant, attended no groups, isolative to self in room. No SI/SIB/HI/AVH expressed. 06/05: continue tx plan. 06/06: reports feeling fine ; continues guarded. difficult to engage. declining to meet with T/W. continue tx plan. 06/07/25: Slept for 4 hours at night, but has been sleeping most of the day yesterday as well. Spent majority of the shift in bed, was medication compliant. Passive engaged in the conversation. He said he will try to change the sleeping pattern so that he can be awake more during the daytime. Appear to be sedated in the morning. No safety behavior. 06/08/25: Slept for 3-4 hours last night, compliant with medications. Denies side effects, denies other safety concerns. Continued to encourage patient to up and down more than on the unit he spent most of the day sleeping. He is pleasant upon approach. No other behavior issues. Denied voices/hallucinations. Suicide thoughts or homicidal thoughts. 8/4: sleeping, minimally rousable. denies problems. continue current mgmt. 8: sleeping all day, up most of the night. minimally rousable. denies problems. continue current mgmt. per JAMAICA Arrington: Jean said when he leaves he can return to [facility]. he was living with a lady there and can go back. He plans to get a job to pay off his debt. He said he owes money because they sent him back here due to losing his passport and he owes them money for the temporary emergency passport and the flight back to the . so his main focus is to get a job. he said he will try things here first and if it doesn't work out he plans to return to [place]. 06/11/25: Passively engaged in conversation while in bed sleeping/resting. Able to answer question appropriately, but seems to be minimized. Denies SI/SIB/HI/AVH. He slept 5 hours last night, spent most of the day in bed sleeping. Attempted to no groups, observed out to the afternoon in the subramanian near the nurse station. No change in presentation. Encourage groups,up and engaged in groups. 06/12: not engaging. no complaints or questions re med changes. cross-taper zyprexa in favor of invega, give MONTERO invega. tonight, decrease zyprexa to 15 mg and start invega 3 mg. otherwise continue current mgmt. 06/13: continues avoidant and disengaged. denies side effects from med change last night. informed cross-titration will advance tonight. decrease zyprexa to 10 mg tonight, increase paliperidone to 6 mg. plan to continue by 5 mg zyprexa and 3 mg paliperidone increments every several days as tolerated until zyprexa DCed and paliperidone at 12 mg QHS. once it is established pt is tolerating PO Paliperidone, invega sustenna to be administered. 06/14: Continue current regimen and plans 06/15: Continue current plans and regimen 06/16: irritable re neuroleptic change. denies side effects or problems with it, however. minimally engageable. increase invega to 9 QHS and decrfease zyprexa to 5 QHS. 06/17/25: Continued to be irritable regarding medication change/titration. However engaged in conversation, hyper verbal, paranoid, reports medication slow his thoughts down and he does not not like it. Poor insight and poor judgment. He thinks he only need lithium, not other medications. Remind patient to continue doing the sleep pattern changing. However his in bed mostly this morning. Slept for 4-5 hours last night. 06/18/25: Slept for 5 hours last night as he continues sleeping during daytime. Compliant with meds, did not c/o side effects.Passingly engaging in assessment. Denies safety concerns. Tolerate the tritation well. Will increase Inveag up to max of 12 tomorrow and Discontinue Olanzepine at HS. Continue to encourage up and out on day so he can sleep better at HS. 06/19/25: Patient slept for 5.5 hours last night, was medication compliant, mostly in his room yesterday but seen more often in the evening. Patient is awake in his room, listen to music, his morning tray was taken away and clean the area. He is very pleasant to talk to today, reports he feels good, denies side effects from medications, denies any safety concerns. Denies feeling sedation, denies anxiety/depression. He is receptive with the plan of medication over the weekends and next week, happy to hear about the medication plan. He also agree with the MONTERO Invega Sustenna on Monday. Encourage him to go out and attended to groups, he said that he will. Reported that he was out for groups a couple of times last week. Discontinue Haldol p.r.n.. Discontinue scheduled Zyprexa 5 mg at bedtime. Only on Zyprexa at g IM daily p.r.n. as backup orders if refused Invega. Invega 12 mg at bedtime. Plan to monitor over the weekends and will give long-acting injection on Monday if tolerate with the p.o. well Reduce Seroquel 200 mg p.r.n. at bedtime to 100 p.r.n. at bedtime for insomnia. Seroquel 50 mg b.i.d. p.r.n. for agitation. Discontinue Motrin. Patient on lithium. Labs were for MondayJune 20: CMP, TSH with free T4. 06/20/25: In bed most of the day, was compliant with medication, however refused labs work. Re- scheduled for Monday. Continue with Invega 12 mg at bedtime. We will reassess and offer long-acting injection on Monday. Continue to encourage patient to get up and go to some groups. No safety concerns expressed. Minimal peer and staff interaction. 06/21: no change in presentation. start MONTERO monday. no s/e from invega. otherwise continue current mgmt. 06/22: stable. continue current mgmt. 06/23/25: More awake and alert. Review with patient regarding policy for his phone use BID 30min each time, patient is educated on compliant with policy. He asks for more 5-10 min extra headphone use at night on the weekends after 2300. Once again, redirected for unit rules. He agrees with MONTERO which is scheduled today. Discontinue Invega PO Invega Sustenna 234mg IM once. Will monitor for possible side effects and sedation. Will offer 156mg after 1 week. If mentaly stable with 156mg, will maintain at this dose, if not will offer 234mg Monthly. 06/24/25: Slept for 5 hours last night, but also went to bed around 7 tonight p.m. last night per his report. He also attended to groups in the afternoon yesterday. Compliant with medications. No side effects from Invega Sustenna. He is engaged in full conversation today why he is in bed, denies safety concerns. Observe he is on the unit, social with peers and staff in longer period of time. Appeared to be happy. He plans to take shower today. Reported that he was up early but he does not feel hungry in the morning. He is making progress, not too sedated during daytime since switching his medication. Appears to do well so far with Invega Sustenna. 06/25/25: Patient slept for 4 hours last night, however he reported was napping in the afternoon for couple hours which affect his sleeping pattern at night. Educate patient to not napping late in the evening. He is receptive. Compliant with medications, no side effects. He reports his did not shower yesterday but he will today. He is awake in his room not sleeping, engage in full conversation, no delusional or paranoid statements make. He is visible at times. Continued to improve in mood, engaging in other activities on the unit. Denies other safety concerns. Denies hallucinations. No irritability mood, not sedated during day time compared to when he was taking olanzapine. We will schedule Invega Sustenna 156 next Monday. Work with older adult social work specialist to see where he will return to. He probably needs [facility] to manage medication. 06/26/25: He slept for 5 hours, compliant with medications. Denies side effects. He self-reported that he went to bed last night and was able to fall asleep by 01:00 and able to stay asleep whole night. Denies safety concerns. I spoke with him in length today regarding aftercare. He thinks he will go to the hospital in [place] to ask them regarding his heart condition. He thinks people was lying to get him to the hospital as he does not have mental health illnesses. He believes that he has been exactly the same he was seen he was a little, and at he able to remember everything in the past. He also reports that he used to use [facility] in [place]. At he does not want [facility] application. I explained to him that in order to be a candidate patient have to be a safe that he has mental health issues, so people can submit the application, and from the [facility] worker will contact him to do assessment if he qualify for any services that they can provide. Patient is receptive application, older adult social work specialist was notified. Patient also would like to have services with [facility] in [place]. He showered yesterday morning, did not go to groups yesterday, but he will go to some groups today per his plan for the day, more awake, engaged in conversation, no irritability. However, continued to be poor insight of his illnesses. He does not want to return to his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
[2025-07-22 20:00] VITALS: BP 110/74; PULSE 73; RESP 18; TEMP 36.7; O2SAT 100
[2025-07-23 10:15] VITALS: BP 150/71; PULSE 91; RESP 17; TEMP 36.5; O2SAT 98
--- NOTE | 2025-07-23 12:16 | P.PNPSI_ITS ---
Subjective Subjective Date of Service: 07/23/25 Reason For Visit: psychotic disorder Interim History: in bed, [place], seen with JMAAICA Arrington. discussing his plans to relocate to [place]. will stay with family. asking about scripts and aftercare in [place]. agree to discharge next week. brother visiting today. per staff, taking meds. sleeping late. denies psych Sx. brother rescheduled from yesterday to today. affect full. slept 7 hours. Mental Status Exam Mental Status Exam Narrative: in bed. cooperative. speech nml rate, decr amount and loudness. thoughts linear and logical. mood euthymic. no complaints. No SI/SIB/HI/AVH expressed. Diagnostics Vital Signs (24Hr): Vital Signs - 24 hr 07/22/25 20:00 07/23/25 10:15 Temperature 98.0 F 97.7 F Pulse Rate 73 91 Respiratory Rate 18 17 Blood Pressure 110/74 150/71 H Pulse Oximetry 100 98 Oxygen Delivery Method Room Air Room Air BMI result Body Mass Index 23.2 Labs 06/25/25 08:02 06/20/25 20:35 Medications Medications Current Medications Acetaminophen (Acetaminophen 325 Mg Tablet) 650 mg PO Q4H PRN PRN Reason: Pain, Mild (Pain Scale 1-3) Last Admin: 07/06/25 22:53 Dose: 650 mg Al Hydroxide/Mg Hydroxide (Magnesium Hydrox/Alum Hydrox 30 Ml Oral.Susp) 30 ml PO Q6H PRN PRN Reason: Heart burn Benzocaine (Benzocaine 20 % Oral Gel 14 Gm Tube) 1 appl MUCOUS MEM QID PRN; Protocol PRN Reason: Mouth Sore Pain Last Admin: 04/26/25 18:33 Dose: 1 appl Diazepam (Diazepam 10 Mg/2 Ml Cartridge) 10 mg IM BID PRN PRN Reason: refusal of lithium, per [place] Last Admin: 04/11/25 09:56 Dose: 10 mg Glycopyrrolate (Glycopyrrolate 1 Mg Tablet) 1 mg PO BID [facility] Last Admin: 07/23/25 08:29 Dose: 1 mg Hydrocortisone (Hydrocortisone 1 % Cream 28.35 Gm Tube) 1 appl TOPICAL DAILY PRN; Protocol PRN Reason: rash Last Admin: 07/17/25 23:13 Dose: 1 appl [place] Carbonate ([place] Carbonate Er 300 Mg Tablet.Er) 600 mg PO DAILY [facility] Last Admin: 07/23/25 08:29 Dose: 600 mg [place] Carbonate ([place] Carbonate Er 450 Mg Tablet.Er) 900 mg PO DAILY@2300 [facility] Last Admin: 07/22/25 22:00 Dose: 900 mg Magnesium Hydroxide (Milk Of Magnesia 30 Ml Oral.Susp) 30 ml PO DAILY PRN PRN Reason: Constipation Methimazole (Methimazole 10 Mg Tablet) 10 mg PO DAILY [facility] Last Admin: 07/23/25 08:29 Dose: 10 mg Nicotine (Nicotine 21 Mg Patch.Td24) 21 mg TRANSDERMA DAILY PRN PRN Reason: nicotine cravings Last Admin: 04/12/25 17:06 Dose: 21 mg Nicotine Polacrilex (Nicotine Polacrilex Lozenge 2 Mg Lozenge) 2 mg BUCCAL Q1H PRN PRN Reason: Nicotine Cravings Last Admin: 04/30/25 08:49 Dose: 2 mg Patient Own Medication Excedrin 250/250/65mg 2 each PO Q8H PRN PRN Reason: Migraine Headache Last Admin: 07/16/25 22:13 Dose: 2 each Olanzapine (Olanzapine 10 Mg Vial) 10 mg IM DAILY PRN PRN Reason: if refuse Invega PO Paliperidone Palmitate (Paliperidone Palmitate 234 Mg/1.5 Ml Syringe) 234 mg IM Q30D [facility] Pseudoephedrine HCl (Pseudoephedrine Hcl 30 Mg Tablet) 30 mg PO Q6H PRN PRN Reason: Congestion Last Admin: 07/03/25 21:18 Dose: 30 mg Quetiapine Fumarate (Quetiapine Fumarate 100 Mg Tablet) 100 mg PO BEDTIME PRN PRN Reason: insomnia Last Admin: 07/21/25 22:09 Dose: 100 mg Quetiapine Fumarate (Quetiapine Fumarate 50 Mg Tablet) 50 mg PO BID PRN PRN Reason: agitation Last Admin: 07/22/25 22:01 Dose: 50 mg Sodium Chloride (Sodium Chloride 0.65 % Nasal 44 Ml Sprbtl) 1 spray NOSTRIL-B Q4H PRN PRN Reason: Congestion Last Admin: 07/03/25 23:03 Dose: 1 spray Allergies Allergies Allergy/AdvReac Type Severity Reaction Status Date / Time No Known Allergies Allergy Verified 03/26/25 14:24 Assessment & Plan Assessment & Plan (1) Graves disease: Status: Acute Code(s): E05.00 - Thyrotoxicosis with diffuse goiter without thyrotoxic crisis or storm Assessment and Plan: Hyperthyroidism/Graves disease. He will need follow up with endocrinology as an outpatient He will also need a primary care doctor referral as an outpatient Discussed with Dr. Bejarano, patient will need free T4 weekly Decrease Methimazole to 15 mgs daily for three days and then 10 mgs daily- discussed with patient he is aware of plan and rationale. TSH and free T4 every 4 weeks. No need to draw thyroid stimulation immunology or TSH receptor AB (2) Dental abscess: Status: Acute Code(s): K04.7 - Periapical abscess without sinus Assessment and Plan: Carious tooth/dental infection Recently treated with PEN VK 500 mg q.6 hours for 7 days Patient will need follow up with dentist on discharge for tooth extraction Motrin helping pain. (3) Becca: Status: Acute Code(s): F30.9 - Manic episode, unspecified Plan 03/26: offer lithium and seroquel for becca. continue methimazole and beta joanne for hyperthyroidism as started at [facility]. trend TFTs. 12b. 03/27: taking methimazole and beta joanne. refused HS meds last night, took morning meds today. continue to encourage medication compliance. 03/28: intermittently taking meds. wants all meds in morning. pressured, manic, paranoid delusions. encouraged to take lithium but states he will not. all meds ordered for morning. 03/29: Keeping to self. no groups. observed laying in bed listening to music on unit headphones. pleasant. Pt reports feeling good today and sleeping well. declined lithium and zyprexa. denies SI/HI/VH/AH. continue current tx plan. 03/30:Irritable. upset he was unable to use his personal hygiene products. Per nursing, pt threatened staff and squeezed tooth paste throughout unit hallway to show his frustration. Pt was able to calm down after speaking with security. declined medications. 03/31: Keeping to self. laying in bed listening to music. refused medications. calm today. Patient reports feeling great ; pt stated, nothing is wrong with me. I'm waiting so I can leave tomorrow. I'm hoping for the best . denies SI/HI/VH/AH. per nursing, slept 6 hours. Continue current tx plan. 04/01: variably calm on the unit versus highly agitated. paranoid delusions, irritability, lability continue. seems to believe MD has met him prior to the present hospitalization and is stalking him. believes brother behind conspiracy to have him psychiatrically hospitalized. has been refusing all medications, including for hyperthyroidism. informed he would be filed on. filed. continue to offer medications. 04/02: continues agitated, belittling, verbally aggressive, refusing all medications including for hyperthyroidism. continue to offer medication. 04/03: paranoid there is a conspiracy to hospitalize him. threatening to stick a stick in staff once he is released by immigration judge. insists his hyperthyroidism was cured at [facility]. asserts there is NOTHING wrong with him. continue to offer medication. 04/04: irritable, rejecting. verbally abuses MD and sends him away: see you on monday [in court]. continue to offer medication for thyroid condition and mental illness. 04/05 continue tx. suspicious and guarded, accusatory, verbal threats to hurt staff and peers 04/06 intrusive, posturing towards staff and peer who he thinks is not real and is an impostor, continues to make verbal threats to harm him but thinks that because he is not real he may not experience any pain. 04/07: threatening statements and behaviors of yesterday noted. pt sleeping this morning, dismissive of MD. 04/08: asleep days. committed and meds ordered by court. 04/09: on being informed of court order and MD insisting on meds, pt escalated to hurling food item in container against wall at high speed and saying he wished he could do the same to MD's head. pt eventually took court ordered meds PO. sensodyne and excedrin not available in pharmacy (pt requesting them). 04/10: continue tx. Pt accepting medication today. 04/11: Keeping to self. Lying in bed most of morning. Declined to meet with T/W. Pt stated, I'm fine. I don't need anything . Listening to headphones in room. Declined court ordered PO medications; received IM medications. Refused vital signs.continue tx plan. 04/12: got IMs yesterday, took PO this morning. sleepy, no concerns or complaints. 04/13: taking PO meds again. slept 7 hours. sleepy again mid morning refusing interview. continue current mgmt. 04/14: sleeping, rousable. denies being sedated or tired, says he's just bored. no questions or complaints. informed of need to check labs. check lithium level and thyroid labs tonight. 04/15: refusing labs. delusional re his brother harming him. verbally abusive toward MD. spat in floor. happy with improvement in proptosis. 04/16: Lying in bed. Calm. cooperative. guarded. Pt reports feeling tired this morning d/t poor sleep last night. Pt stated, I don't need anything. I didn't sleep well so I'm trying to catch up . denies any issues at this time. denies SI/HI/VH/AH. Continue current tx plan. 04/17: more calm today, less explosive. continue current mgmt. 04/18: continues more calm. tolerating moments of frustration without verbally attacking MD. slept only 2 hours overnight, however. continue current mgmt. 04/19 continues to push boundaries and limits with staff imke around cell phone- 04/20 - aggressive with staff and unpredictable- threw water pitcher at staff behind desk/-when seen by provider passive in bed-denying all compaints/sys- no insight 04/21: appears as per last week. more difficult behaviors around cell phone use, did throw pitcher of water at RN monday over phone use and was restrained. continue current mgmt. 04/22: continues to have conflict around cell phone use. consolidate zyprexa at HS to decrease daytime sedation. 1:1 allegra shift until peer he is accusing of not being a real patient and appears to be targeting discharges tomorrow. 04/23: lithium 0.6 on 600 BID. sleeping better, remains delusional (telling SW who is marginally younger than him that she could be his daughter). just changed zyprexa dosing as of last night. continue current regimen and observe for continued stabilization. T/C slight increase in lithium dosing. 04/24: Laying in bed. guarded. calm. did not want to get out of bed to meet with T/W. Pt reports feeling great today but declined to go into detail. listening to music on unit headphones. Pt stated, I'm fine. I don't need anything . denies any issues at this time. denies SI/HI/VH/AH. Continue current tx plan. 04/25: Laying in bed. keeping to self. calm. paranoid. Discussed incident that occurred with staff last evening. Pt stated, the counselor made up a lie yesterday. I said she looks like my ex-girlfriend. I know they are related. They want to make up a lie to irritate me. They are trying to talk to me so they can use recording devices and make me look some kind of way . listening to music on unit headphones. denies SI/HI/VH/AH. Continue current tx plan. 04/26: Continue current regimen and plans. Increase Zyprexa 20 mg q.h.s. fresh air break withheld 04/27: Continue current regimen and plans 04/28: somewhat less irritable and agitated than last week. however, over the weekend was claiming he was the father of a footballer on TV and also that a staff member is a twin of his ex-GF (and he pushed staff member). TFTs improving. continue current mgmt. 04/29: no change in presentation. continue current mgmt. 04/30: no irritable edge today. calm, pleasant. engaging in small talk. reality testing not pressed. continue current mgmt for now. 05/01: no change in presentation. continue current mgmt. 05/02: BPs coming down, DC beta joanne as pt has been refusing anyway. remains not antagonistic toward MD. using phone appropriately. continue current mgmt otherwise. 05/03 continue 05/04: remains delusional, irritable/labile when delusional system confronted. declines to sign TOMMY for [facility] records. continue current mgmt. 05/06: declining to meet with MD, but does meet with medical student. remains upset about yesterday's confrontation re his delusional system. 05/07: Active on unit. keeping to self. pacing unit hallway while listening to unit headphones. medication compliant. patient reports feeling good ; pt stated, I'm just waiting to leave here. I want to return to my life and do things like go grocery shopping . denies SI/HI/VH/AH. Continue current tx plan. 05/08: stable presentation, delusions not being brought to the surface daily. remains affectively improved from admission. continue current mgmt. 05/09: calm, pleasant. no questions or complaints. continue current mgmt. 05/10: no change in presentation. due to lack of improvement in dental infection Sx, DC PCN and start augmentin. 05/11: no change in presentation. continue current mgmt. 05/12: as for yesterday. dental pain improving a bit. 05/13: expressed to medical student that his brother poisoned him, causing his thyroid disease. no change in presentation. continue current mgmt. 05/14: Pacing unit hallway. keeping to self. patient reports feeling good today; denies any issues at this time. denies SI/HI/VH/AH. per nursing, slept 5 hours. Continue current tx plan. 05/15: slept 6 hours. otherwise isolative, difficult to engage. continue current mgmt. 05/16: slept 7 hours. as for yesterday otherwise. 05/17/25: Slept well, no issue with appetite, skinny and pretty tall. Compliant with medication. No side effects Calm and pleasant upon approach. Some what paranoid. Tangential, however denies other safety concerns. Questions if he is discharging soon. He is on antibiotic for 7 days for mouth pain/tooth pain. We will finish the 7 course up in antibiotic after tonight dose. Then discontinue. 05/18/25: Slept for 5 hours plus hours this morning. In bed most of the shift, no behavior issues. Denies other safety concerns. 05/19: in bed days, up eves. no change in presentation. continue current mgmt. 05/20: no change in presentation. check labs. 05/21: lithium low, TFTs mixed and not all back. increase lithium from 600 BID to 600/900. trend BUN/Cr, with slight elevation. otherwise continue current mgmt. 05/22: no change in presentation. continue current mgmt. 05/23: does not deny someone stole his sperm and impregnated his landlord's child with it. irritable. c/o dental pain, antibx restarted. otherwise continue current mgmt. 05/14: no change in mgt 05/25: more isolative today; no change in mgt 05/26: decreases in methimazole noted. continue psych regimen as is. pt refused to interact with MD today. 05/27: i'm sleeping. no change in presentation. labs tonight. 05/28: no change in behavior. lithium 0.66, BUN stable. continue current mgmt. 05/29: irritable. continue current mgmt. 05/30: no longer in single room. still not engaging, sleeping days. continue current mgmt. 05/31:laying in bed. declined to meet with T/W. pt stated, I want to sleep. I didn't sleep enough . Pt encouraged to reach out to staff if he needs anything. Continue current tx plan. 06/01: Similar to yesterday. laying in bed. Irritable. declined to meet with T/W and pulled bed sheets over head. pt stated, I don't want to talk. I want to sleep . difficult to engage. Continue current tx plan. 06/02: Similar to yesterday. laying in bed. Irritable. declined to meet with T/W. Observed getting drink from kitchen; T/W approached pt and asked if they could speak. patient declined to acknowledge T/W and walked past. Continue current tx plan. 06/03: no change in behavior. continue tx plan. 06/04/25: Passive engaged in the assessment, in bed mostly sleeping this morning which could be interfere with his nighttime. Cover body under the blanket Slept for 4-5 hours last night. Was medication compliant, attended no groups, isolative to self in room. No SI/SIB/HI/AVH expressed. 06/05: continue tx plan. 06/06: reports feeling fine ; continues guarded. difficult to engage. declining to meet with T/W. continue tx plan. 06/07/25: Slept for 4 hours at night, but has been sleeping most of the day yesterday as well. Spent majority of the shift in bed, was medication compliant. Passive engaged in the conversation. He said he will try to change the sleeping pattern so that he can be awake more during the daytime. Appear to be sedated in the morning. No safety behavior. 06/08/25: Slept for 3-4 hours last night, compliant with medications. Denies side effects, denies other safety concerns. Continued to encourage patient to up and down more than on the unit he spent most of the day sleeping. He is pleasant upon approach. No other behavior issues. Denied voices/hallucinations. Suicide thoughts or homicidal thoughts. 06/09: sleeping, minimally rousable. denies problems. continue current mgmt. 06/10: sleeping all day, up most of the night. minimally rousable. denies problems. continue current mgmt. per JAMAICA Arrington: Jean said when he leaves he can return to [facility]. he was living with a lady there and can go back. He plans to get a job to pay off his debt. He said he owes money because they sent him back here due to losing his passport and he owes them money for the temporary emergency passport and the flight back to the . so his main focus is to get a job. he said he will try things here first and if it doesn't work out he plans to return to [place]. 06/11/25: Passively engaged in conversation while in bed sleeping/resting. Able to answer question appropriately, but seems to be minimized. Denies SI/SIB/HI/AVH. He slept 5 hours last night, spent most of the day in bed sleeping. Attempted to no groups, observed out to the afternoon in the subramanian near the nurse station. No change in presentation. Encourage groups,up and engaged in groups. 06/12: not engaging. no complaints or questions re med changes. cross-taper zyprexa in favor of invega, give MONTERO invega. tonight, decrease zyprexa to 15 mg and start invega 3 mg. otherwise continue current mgmt. 06/13: continues avoidant and disengaged. denies side effects from med change last night. informed cross-titration will advance tonight. decrease zyprexa to 10 mg tonight, increase paliperidone to 6 mg. plan to continue by 5 mg zyprexa and 3 mg paliperidone increments every several days as tolerated until zyprexa DCed and paliperidone at 12 mg QHS. once it is established pt is tolerating PO Paliperidone, invega sustenna to be administered. 06/14: Continue current regimen and plans 06/15: Continue current plans and regimen 06/16: irritable re neuroleptic change. denies side effects or problems with it, however. minimally engageable. increase invega to 9 QHS and decrfease zyprexa to 5 QHS. 06/17/25: Continued to be irritable regarding medication change/titration. However engaged in conversation, hyper verbal, paranoid, reports medication slow his thoughts down and he does not not like it. Poor insight and poor judgment. He thinks he only need lithium, not other medications. Remind patient to continue doing the sleep pattern changing. However his in bed mostly this morning. Slept for 4-5 hours last night. 06/18/25: Slept for 5 hours last night as he continues sleeping during daytime. Compliant with meds, did not c/o side effects.Passingly engaging in assessment. Denies safety concerns. Tolerate the tritation well. Will increase Inveag up to max of 12 tomorrow and Discontinue Olanzepine at HS. Continue to encourage up and out on day so he can sleep better at HS. 06/19/25: Patient slept for 5.5 hours last night, was medication compliant, mostly in his room yesterday but seen more often in the evening. Patient is awake in his room, listen to music, his morning tray was taken away and clean the area. He is very pleasant to talk to today, reports he feels good, denies side effects from medications, denies any safety concerns. Denies feeling sedation, denies anxiety/depression. He is receptive with the plan of medication over the weekends and next week, happy to hear about the medication plan. He also agree with the MONTERO Invega Sustenna on Monday. Encourage him to go out and attended to groups, he said that he will. Reported that he was out for groups a couple of times last week. Discontinue Haldol p.r.n.. Discontinue scheduled Zyprexa 5 mg at bedtime. Only on 10 Zyprexa at g IM daily p.r.n. as backup orders if refused Invega. Invega 12 mg at bedtime. Plan to monitor over the weekends and will give long- acting injection on Monday if tolerate with the p.o. well Reduce Seroquel 200 mg p.r.n. at bedtime to 100 p.r.n. at bedtime for insomnia. Seroquel 50 mg b.i.d. p.r.n. for agitation. Discontinue Motrin. Patient on lithium. Labs were for MondayJune 20: CMP, TSH with free T4. 06/20/25: In bed most of the day, was compliant with medication, however refused labs work. Re- scheduled for Monday. Continue with Invega 12 mg at bedtime. We will reassess and offer long-acting injection on Monday. Continue to encourage patient to get up and go to some groups. No safety concerns expressed. Minimal peer and staff interaction. 06/21: no change in presentation. start MONTERO monday. no s/e from invega. otherwise continue current mgmt. 06/22: stable. continue current mgmt. 06/23/25: More awake and alert. Review with patient regarding policy for his phone use BID 30min each time, patient is educated on compliant with policy. He asks for more 5-10 min extra headphone use at night on the weekends after 2300. Once again, redirected for unit rules. He agrees with MONTERO which is scheduled today. Discontinue Invega PO Invega Sustenna 234mg IM once. Will monitor for possible side effects and sedation. Will offer 156mg after 1 week. If mentaly stable with 156mg, will maintain at this dose, if not will offer 234mg Monthly. 06/24/25: Slept for 5 hours last night, but also went to bed around 7 tonight p.m. last night per his report. He also attended to groups in the afternoon yesterday. Compliant with medications. No side effects from Invega Sustenna. He is engaged in full conversation today why he is in bed, denies safety concerns. Observe he is on the unit, social with peers and staff in longer period of time. Appeared to be happy. He plans to take shower today. Reported that he was up early but he does not feel hungry in the morning. He is making progress, not too sedated during daytime since switching his medication. Appears to do well so far with Invega Sustenna. 06/25/25: Patient slept for 4 hours last night, however he reported was napping in the afternoon for couple hours which affect his sleeping pattern at night. Educate patient to not napping late in the evening. He is receptive. Compliant with medications, no side effects. He reports his did not shower yesterday but he will today. He is awake in his room not sleeping, engage in full conversation, no delusional or paranoid statements make. He is visible at times. Continued to improve in mood, engaging in other activities on the unit. Denies other safety concerns. Denies hallucinations. No irritability mood, not sedated during day time compared to when he was taking olanzapine. We will schedule Invega Sustenna 156 next Monday. Work with social welfare research worker to see where he will return to. He probably needs [facility] to manage medication. 06/26/25: He slept for 5 hours, compliant with medications. Denies side effects. He self-reported that he went to bed last night and was able to fall asleep by 01:00 and able to stay asleep whole night. Denies safety concerns. I spoke with him in length today regarding aftercare. He thinks he will go to the hospital in [place] to ask them regarding his heart condition. He thinks people was lying to get him to the hospital as he does not have mental health illnesses. He believes that he has been exactly the same he was seen he was a little, and at he able to remember everything in the past. He also reports that he used to use [employer] in [place]. At he does not want [facility] application. I explained to him that in order to be a candidate patient have to be a safe that he has mental health issues, so people can submit the application, and from the [facility] worker will contact him to do assessment if he qualify for any services that they can provide. Patient is receptive application, social welfare research worker was notified. Patient also would like to have services with [facility] in [place]. He showered yesterday morning,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
[2025-07-23 20:36] VITALS: BP 132/84; PULSE 97; RESP 20; TEMP 36.4; O2SAT 98
--- NOTE | 2025-07-24 11:33 | HO.PSYCHPN ---
Subjective Subjective Date of Service: 07/24/25 Reason For Visit: psychotic disorder Interim History: no issues, no change. per JAMAICA Nury, brother supports plan to send to [place] to live with family there. per staff, visible, no change in presentation. taking seroquel at , sleeping well. Mental Status Exam Mental Status Exam Narrative: in bed. cooperative. speech nml rate, decr amount and loudness. thoughts linear and logical. mood euthymic. no complaints. No SI/SIB/HI/AVH expressed. Diagnostics Vital Signs (24Hr): Vital Signs - 24 hr 07/23/25 20:36 Temperature 97.5 F Pulse Rate 97 Respiratory Rate 20 Blood Pressure 132/84 Pulse Oximetry 98 Oxygen Delivery Method Room Air BMI result Body Mass Index 23.2 Labs 06/25/25 08:02 06/20/25 20:35 Medications Medications Current Medications Acetaminophen (Acetaminophen 325 Mg Tablet) 650 mg PO Q4H PRN PRN Reason: Pain, Mild (Pain Scale 1-3) Last Admin: 07/06/25 22:53 Dose: 650 mg Al Hydroxide/Mg Hydroxide (Magnesium Hydrox/Alum Hydrox 30 Ml Oral.Susp) 30 ml PO Q6H PRN PRN Reason: Heart burn Benzocaine (Benzocaine 20 % Oral Gel 14 Gm Tube) 1 appl MUCOUS MEM QID PRN; Protocol PRN Reason: Mouth Sore Pain Last Admin: 04/26/25 18:33 Dose: 1 appl Diazepam (Diazepam 10 Mg/2 Ml Cartridge) 10 mg IM BID PRN PRN Reason: refusal of lithium, per everett Last Admin: 04/11/25 09:56 Dose: 10 mg Glycopyrrolate (Glycopyrrolate 1 Mg Tablet) 1 mg PO BID [facility] Last Admin: 07/24/25 09:27 Dose: 1 mg Hydrocortisone (Hydrocortisone 1 % Cream 28.35 Gm Tube) 1 appl TOPICAL DAILY PRN; Protocol PRN Reason: rash Last Admin: 07/17/25 23:13 Dose: 1 appl [place] Carbonate ([place] Carbonate Er 300 Mg Tablet.Er) 600 mg PO DAILY [facility] Last Admin: 07/24/25 09:27 Dose: 600 mg [place] Carbonate ([place] Carbonate Er 450 Mg Tablet.Er) 900 mg PO DAILY@2300 [facility] Last Admin: 07/23/25 22:28 Dose: 900 mg Magnesium Hydroxide (Milk Of Magnesia 30 Ml Oral.Susp) 30 ml PO DAILY PRN PRN Reason: Constipation Methimazole (Methimazole 10 Mg Tablet) 10 mg PO DAILY KRISTAL Last Admin: 07/24/25 09:27 Dose: 10 mg Nicotine (Nicotine 21 Mg Patch.Td24) 21 mg TRANSDERMA DAILY PRN PRN Reason: nicotine cravings Last Admin: 04/12/25 17:06 Dose: 21 mg Nicotine Polacrilex (Nicotine Polacrilex Lozenge 2 Mg Lozenge) 2 mg BUCCAL Q1H PRN PRN Reason: Nicotine Cravings Last Admin: 04/30/25 08:49 Dose: 2 mg Patient Own Medication Excedrin 250/250/65mg 2 each PO Q8H PRN PRN Reason: Migraine Headache Last Admin: 07/16/25 22:13 Dose: 2 each Olanzapine (Olanzapine 10 Mg Vial) 10 mg IM DAILY PRN PRN Reason: if refuse Invega PO Paliperidone Palmitate (Paliperidone Palmitate 234 Mg/1.5 Ml Syringe) 234 mg IM Q30D KRISTAL Pseudoephedrine HCl (Pseudoephedrine Hcl 30 Mg Tablet) 30 mg PO Q6H PRN PRN Reason: Congestion Last Admin: 07/03/25 21:18 Dose: 30 mg Quetiapine Fumarate (Quetiapine Fumarate 100 Mg Tablet) 100 mg PO BEDTIME PRN PRN Reason: insomnia Last Admin: 07/21/25 22:09 Dose: 100 mg Quetiapine Fumarate (Quetiapine Fumarate 50 Mg Tablet) 50 mg PO BID PRN PRN Reason: agitation Last Admin: 07/23/25 22:28 Dose: 50 mg Sodium Chloride (Sodium Chloride 0.65 % Nasal 44 Ml Sprbtl) 1 spray NOSTRIL-B Q4H PRN PRN Reason: Congestion Last Admin: 07/03/25 23:03 Dose: 1 spray Allergies Allergies Allergy/AdvReac Type Severity Reaction Status Date / Time No Known Allergies Allergy Verified 03/26/25 14:24 Assessment & Plan Assessment & Plan (1) Graves disease: Status: Acute Code(s): E05.00 - Thyrotoxicosis with diffuse goiter without thyrotoxic crisis or storm Assessment and Plan: Hyperthyroidism/Graves disease. He will need follow up with endocrinology as an outpatient He will also need a primary care doctor referral as an outpatient Discussed with Dr. Bejarano, patient will need free T4 weekly Decrease Methimazole to 15 mgs daily for three days and then 10 mgs daily- discussed with patient he is aware of plan and rationale. TSH and free T4 every 4 weeks. No need to draw thyroid stimulation immunology or TSH receptor AB (2) Dental abscess: Status: Acute Code(s): K04.7 - Periapical abscess without sinus Assessment and Plan: Carious tooth/dental infection Recently treated with PEN VK 500 mg q.6 hours for 7 days Patient will need follow up with dentist on discharge for tooth extraction Motrin helping pain. (3) Becca: Status: Acute Code(s): F30.9 - Manic episode, unspecified Plan 03/26: offer lithium and seroquel for becca. continue methimazole and beta joanne for hyperthyroidism as [place] [facility]. trend TFTs. 12b. 03/27: taking methimazole and beta joanne. refused HS meds last night, took morning meds today. continue to encourage medication compliance. 03/28: intermittently taking meds. wants all meds in morning. pressured, manic, paranoid delusions. encouraged to take lithium but states he will not. all meds ordered for morning. 03/29: Keeping to self. no groups. observed laying in bed listening to music on unit headphones. pleasant. Pt reports feeling good today and sleeping well. declined lithium and zyprexa. denies SI/HI/VH/AH. continue current tx plan. 03/30:Irritable. upset he was unable to use his personal hygiene products. Per nursing, pt threatened staff and squeezed tooth paste throughout unit hallway to show his frustration. Pt was able to calm down after speaking with security. declined medications. 03/31: Keeping to self. laying in bed listening to music. refused medications. calm today. Patient reports feeling great ; pt stated, nothing is wrong with me. I'm waiting so I can leave tomorrow. I'm hoping for the best . denies SI/HI/VH/AH. per nursing, slept 6 hours. Continue current tx plan. 04/01: variably calm on the unit versus highly agitated. paranoid delusions, irritability, lability continue. seems to believe MD has met him prior to the present hospitalization and is stalking him. believes brother behind conspiracy to have him psychiatrically hospitalized. has been refusing all medications, including for hyperthyroidism. informed he would be filed on. filed. continue to offer medications. 04/02: continues agitated, belittling, verbally aggressive, refusing all medications including for hyperthyroidism. continue to offer medication. 04/03: paranoid there is a conspiracy to hospitalize him. threatening to stick a stick in staff once he is released by [facility] [employer]. insists his hyperthyroidism was cured at [facility]. asserts there is NOTHING wrong with him. continue to offer medication. 04/04: irritable, rejecting. verbally abuses MD and sends him away: see you on monday [in court]. continue to offer medication for thyroid condition and mental illness. 04/05 continue tx. suspicious and guarded, accusatory, verbal threats to hurt staff and peers 04/06 intrusive, posturing towards staff and peer who he thinks is not real and is an impostor, continues to make verbal threats to harm him but thinks that because he is not real he may not experience any pain. 04/07: threatening statements and behaviors of yesterday noted. pt sleeping this morning, dismissive of MD. 04/08: asleep days. committed and meds ordered by court. 04/09: on being informed of court order and MD insisting on meds, pt escalated to hurling food item in container against wall at high speed and saying he wished he could do the same to MD's head. pt eventually took court ordered meds PO. sensodyne and excedrin not available in pharmacy (pt requesting them). 04/10: continue tx. Pt accepting medication today. 04/11: Keeping to self. Lying in bed most of morning. Declined to meet with T/W. Pt stated, I'm fine. I don't need anything . Listening to headphones in room. Declined court ordered PO medications; received IM medications. Refused vital signs.continue tx plan. 04/12: got IMs yesterday, took PO this morning. sleepy, no concerns or complaints. 04/13: taking PO meds again. slept 7 hours. sleepy again mid morning refusing interview. continue current mgmt. 04/14: sleeping, rousable. denies being sedated or tired, says he's just bored. no questions or complaints. informed of need to check labs. check lithium level and thyroid labs tonight. 04/15: refusing labs. delusional re his brother harming him. verbally abusive toward MD. spat in floor. happy with improvement in proptosis. 04/16: Lying in bed. Calm. cooperative. guarded. Pt reports feeling tired this morning d/t poor sleep last night. Pt stated, I don't need anything. I didn't sleep well so I'm trying to catch up . denies any issues at this time. denies SI/HI/VH/AH. Continue current tx plan. 04/17: more calm today, less explosive. continue current mgmt. 04/18: continues more calm. tolerating moments of frustration without verbally attacking MD. slept only 2 hours overnight, however. continue current mgmt. 04/19 continues to push boundaries and limits with staff mike around cell phone- 04/20 - aggressive with staff and unpredictable- threw water pitcher at staff behind desk/-when seen by provider passive in bed-denying all compaints/sys- no insight 04/21: appears as per last week. more difficult behaviors around cell phone use, did throw pitcher of water at RN monday over phone use and was restrained. continue current mgmt. 04/22: continues to have conflict around cell phone use. consolidate zyprexa at HS to decrease daytime sedation. 1:1 allegra shift until peer he is accusing of not being a real patient and appears to be targeting discharges tomorrow. 04/23: lithium 0.6 on 600 BID. sleeping better, remains delusional (telling SW who is marginally younger than him that she could be his daughter). just changed zyprexa dosing as of last night. continue current regimen and observe for continued stabilization. T/C slight increase in lithium dosing. 04/24: Laying in bed. guarded. calm. did not want to get out of bed to meet with T/W. Pt reports feeling great today but declined to go into detail. listening to music on unit headphones. Pt stated, I'm fine. I don't need anything . denies any issues at this time. denies SI/HI/VH/AH. Continue current tx plan. 04/25: Laying in bed. keeping to self. calm. paranoid. Discussed incident that occurred with staff last evening. Pt stated, the counselor made up a lie yesterday. I said she looks like my ex-girlfriend. I know they are related. They want to make up a lie to irritate me. They are trying to talk to me so they can use recording devices and make me look some kind of way . listening to music on unit headphones. denies SI/HI/VH/AH. Continue current tx plan. 04/26: Continue current regimen and plans. Increase Zyprexa 20 mg q.h.s. fresh air break withheld 04/27: Continue current regimen and plans 04/28: somewhat less irritable and agitated than last week. however, over the weekend was claiming he was the father of a footballer on TV and also that a staff member is a twin of his ex-GF (and he pushed staff member). TFTs improving. continue current mgmt. 04/29: no change in presentation. continue current mgmt. 04/30: no irritable edge today. calm, pleasant. engaging in small talk. reality testing not pressed. continue current mgmt for now. 05/01: no change in presentation. continue current mgmt. 05/02: BPs coming down, DC beta joanne as pt has been refusing anyway. remains not antagonistic toward MD. using phone appropriately. continue current mgmt otherwise. 05/03 continue 05/04: remains delusional, irritable/labile when delusional system confronted. declines to sign TOMMY for [facility] records. continue current mgmt. 05/06: declining to meet with MD, but does meet with medical student. remains upset about yesterday's confrontation re his delusional system. 05/07: Active on unit. keeping to self. pacing unit hallway while listening to unit headphones. medication compliant. patient reports feeling good ; pt stated, I'm just waiting to leave here. I want to return to my life and do things like go grocery shopping . denies SI/HI/VH/AH. Continue current tx plan. 05/08: stable presentation, delusions not being brought to the surface daily. remains affectively improved from admission. continue current mgmt. 05/09: calm, pleasant. no questions or complaints. continue current mgmt. 05/10: no change in presentation. due to lack of improvement in dental infection Sx, DC PCN and start augmentin. 05/11: no change in presentation. continue current mgmt. 05/12: as for yesterday. dental pain improving a bit. 05/13: expressed to medical student that his brother poisoned him, causing his thyroid disease. no change in presentation. continue current mgmt. 05/14: Pacing unit hallway. keeping to self. patient reports feeling good today; denies any issues at this time. denies SI/HI/VH/AH. per nursing, slept 5 hours. Continue current tx plan. 05/15: slept 6 hours. otherwise isolative, difficult to engage. continue current mgmt. 05/16: slept 7 hours. as for yesterday otherwise. 05/17/25: Slept well, no issue with appetite, skinny and pretty tall. Compliant with medication. No side effects Calm and pleasant upon approach. Some what paranoid. Tangential, however denies other safety concerns. Questions if he is discharging soon. He is on antibiotic for 7 days for mouth pain/tooth pain. We will finish the 7 course up in antibiotic after tonight dose. Then discontinue. 05/18/25: Slept for 5 hours plus hours this morning. In bed most of the shift, no behavior issues. Denies other safety concerns. 05/19: in bed days, up eves. no change in presentation. continue current mgmt. 05/20: no change in presentation. check labs. 05/21: lithium low, TFTs mixed and not all back. increase lithium from 600 BID to 600/900. trend BUN/Cr, with slight elevation. otherwise continue current mgmt. 05/22: no change in presentation. continue current mgmt. 05/23: does not deny someone stole his sperm and impregnated his landlord's child with it. irritable. c/o dental pain, antibx restarted. otherwise continue current mgmt. 05/14: no change in mgt 05/25: more isolative today; no change in mgt 05/26: decreases in methimazole noted. continue psych regimen as is. pt refused to interact with MD today. 05/27: i'm sleeping. no change in presentation. labs tonight. 05/28: no change in behavior. lithium 0.66, BUN stable. continue current mgmt. 05/29: irritable. continue current mgmt. 05/30: no longer in single room. still not engaging, sleeping days. continue current mgmt. 05/31:laying in bed. declined to meet with T/W. pt stated, I want to sleep. I didn't sleep enough . Pt encouraged to reach out to staff if he needs anything. Continue current tx plan. 06/01: Similar to yesterday. laying in bed. Irritable. declined to meet with T/W and pulled bed sheets over head. pt stated, I don't want to talk. I want to sleep . difficult to engage. Continue current tx plan. 06/02: Similar to yesterday. laying in bed. Irritable. declined to meet with T/W. Observed getting drink from kitchen; T/W approached pt and asked if they could speak. patient declined to acknowledge T/W and walked past. Continue current tx plan. 06/03: no change in behavior. continue tx plan. 06/04/25: Passive engaged in the assessment, in bed mostly sleeping this morning which could be interfere with his nighttime. Cover body under the blanket Slept for 4-5 hours last night. Was medication compliant, attended no groups, isolative to self in room. No SI/SIB/HI/AVH expressed. 06/05: continue tx plan. 06/06: reports feeling fine ; continues guarded. difficult to engage. declining to meet with T/W. continue tx plan. 06/07/25: Slept for 4 hours at night, but has been sleeping most of the day yesterday as well. Spent majority of the shift in bed, was medication compliant. Passive engaged in the conversation. He said he will try to change the sleeping pattern so that he can be awake more during the daytime. Appear to be sedated in the morning. No safety behavior. 06/08/25: Slept for 3-4 hours last night, compliant with medications. Denies side effects, denies other safety concerns. Continued to encourage patient to up and down more than on the unit he spent most of the day sleeping. He is pleasant upon approach. No other behavior issues. Denied voices/hallucinations. Suicide thoughts or homicidal thoughts. 8/4: sleeping, minimally rousable. denies problems. continue current mgmt. 8: sleeping all day, up most of the night. minimally rousable. denies problems. continue current mgmt. per JAMAICA Arrington: Jean said when he leaves he can return to [facility]. he was living with a lady there and can go back. He plans to get a job to pay off his debt. He said he owes money because they sent him back here due to losing his passport and he owes them money for the temporary emergency passport and the flight back to the . so his main focus is to get a job. he said he will try things here first and if it doesn't work out he plans to return to [place]. 06/11/25: Passively engaged in conversation while in bed sleeping/resting. Able to answer question appropriately, but seems to be minimized. Denies SI/SIB/HI/AVH. He slept 5 hours last night, spent most of the day in bed sleeping. Attempted to no groups, observed out to the afternoon in the subramanian near the nurse station. No change in presentation. Encourage groups,up and engaged in groups. 06/12: not engaging. no complaints or questions re med changes. cross-taper zyprexa in favor of invega, give MONTERO invega. tonight, decrease zyprexa to 15 mg and start invega 3 mg. otherwise continue current mgmt. 06/13: continues avoidant and disengaged. denies side effects from med change last night. informed cross-titration will advance tonight. decrease zyprexa to 10 mg tonight, increase paliperidone to 6 mg. plan to continue by 5 mg zyprexa and 3 mg paliperidone increments every several days as tolerated until zyprexa DCed and paliperidone at 12 mg QHS. once it is established pt is tolerating PO Paliperidone, invega sustenna to be administered. 06/14: Continue current regimen and plans 06/15: Continue current plans and regimen 06/16: irritable re neuroleptic change. denies side effects or problems with it, however. minimally engageable. increase invega to 9 QHS and decrfease zyprexa to 5 QHS. 06/17/25: Continued to be irritable regarding medication change/titration. However engaged in conversation, hyper verbal, paranoid, reports medication slow his thoughts down and he does not not like it. Poor insight and poor judgment. He thinks he only need lithium, not other medications. Remind patient to continue doing the sleep pattern changing. However his in bed mostly this morning. Slept for 4-5 hours last night. 06/18/25: Slept for 5 hours last night as he continues sleeping during daytime. Compliant with meds, did not c/o side effects.Passingly engaging in assessment. Denies safety concerns. Tolerate the tritation well. Will increase Inveag up to max of 12 tomorrow and Discontinue Olanzepine at HS. Continue to encourage up and out on day so he can sleep better at HS. 06/19/25: Patient slept for 5.5 hours last night, was medication compliant, mostly in his room yesterday but seen more often in the evening. Patient is awake in his room, listen to music, his morning tray was taken away and clean the area. He is very pleasant to talk to today, reports he feels good, denies side effects from medications, denies any safety concerns. Denies feeling sedation, denies anxiety/depression. He is receptive with the plan of medication over the weekends and next week, happy to hear about the medication plan. He also agree with the MONTERO Invega Sustenna on Monday. Encourage him to go out and attended to groups, he said that he will. Reported that he was out for groups a couple of times last week. Discontinue Haldol p.r.n.. Discontinue scheduled Zyprexa 5 mg at bedtime. Only on 10 Zyprexa at g IM daily p.r.n. as backup orders if refused Invega. Invega 12 mg at bedtime. Plan to monitor over the weekends and will give long-acting injection on Monday if tolerate with the p.o. well Reduce Seroquel 200 mg p.r.n. at bedtime to 100 p.r.n. at bedtime for insomnia. Seroquel 50 mg b.i.d. p.r.n. for agitation. Discontinue Motrin. Patient on lithium. Labs were for MondayJune 20: CMP, TSH with free T4. 06/20/25: In bed most of the day, was compliant with medication, however refused labs work. Re- scheduled for Monday. Continue with Invega 12 mg at bedtime. We will reassess and offer long-acting injection on Monday. Continue to encourage patient to get up and go to some groups. No safety concerns expressed. Minimal peer and staff interaction. 06/21: no change in presentation. start MONTERO monday. no s/e from invega. otherwise continue current mgmt. 06/22: stable. continue current mgmt. 06/23/25: More awake and alert. Review with patient regarding policy for his phone use BID 30min each time, patient is educated on compliant with policy. He asks for more 5-10 min extra headphone use at night on the weekends after 2300. Once again, redirected for unit rules. He agrees with MONTERO which is scheduled today. Discontinue Invega PO Invega Sustenna 234mg IM once. Will monitor for possible side effects and sedation. Will offer 156mg after 1 week. If mentaly stable with 156mg, will maintain at this dose, if not will offer 234mg Monthly. 06/24/25: Slept for 5 hours last night, but also went to bed around 7 tonight p.m. last night per his report. He also attended to groups in the afternoon yesterday. Compliant with medications. No side effects from Invega Sustenna. He is engaged in full conversation today why he is in bed, denies safety concerns. Observe he is on the unit, social with peers and staff in longer period of time. Appeared to be happy. He plans to take shower today. Reported that he was up early but he does not feel hungry in the morning. He is making progress, not too sedated during daytime since switching his medication. Appears to do well so far with Invega Sustenna. 06/25/25: Patient slept for 4 hours last night, however he reported was napping in the afternoon for couple hours which affect his sleeping pattern at night. Educate patient to not napping late in the evening. He is receptive. Compliant with medications, no side effects. He reports his did not shower yesterday but he will today. He is awake in his room not sleeping, engage in full conversation, no delusional or paranoid statements make. He is visible at times. Continued to improve in mood, engaging in other activities on the unit. Denies other safety concerns. Denies hallucinations. No irritability mood, not sedated during day time compared to when he was taking olanzapine. We will schedule Invega Sustenna 156 next Monday. Work with elementary school social worker to see where he will return to. He probably needs [facility] to manage medication. 06/26/25: He slept for 5 hours, compliant with medications. Denies side effects. He self-reported that he went to bed last night and was able to fall asleep by 01:00 and able to stay asleep whole night. Denies safety concerns. I spoke with him in length today regarding aftercare. He thinks he will go to the hospital in [place] to ask them regarding his heart condition. He thinks people was lying to get him to the hospital as he does not have mental health illnesses. He believes that he has been exactly the same he was seen he was a little, and at he able to remember everything in the past. He also reports that he used to use [employer] in [place]. At he does not want [facility] application. I explained to him that in order to be a candidate patient have to be a safe that he has mental health issues, so people can submit the application, and from the [facility] worker will contact him to do assessment if he qualify for any services that they can provide. Patient is receptive application, elementary school social worker was notified. Patient also would like to have services with [facility] in [place]. He showered yesterday morning, did not go to groups yesterday, but he will go to some groups today per his plan for the day, more awake, engaged in conversation, no irritability. However, continued to be poor insight of his illnesses. He does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
[2025-07-24 20:00] VITALS: BP 145/84; PULSE 86; RESP 16; TEMP 37.3; O2SAT 100
[2025-07-25 10:18] VITALS: BP 123/58; PULSE 90; RESP 16; TEMP 37; O2SAT 98
--- NOTE | 2025-07-25 13:42 | P.PNPSI_ITS ---
Subjective Subjective Date of Service: 07/25/25 Reason For Visit: psychotic disorder Interim History: in bed. wants to stay another 2 weeks bcse his relatives in [place] are going on vacation for 2 weeks. no complaints or requests otherwise. per staff, no change. Mental Status Exam Mental Status Exam Narrative: in bed. cooperative. speech nml rate, decr amount and loudness. thoughts linear and logical. mood euthymic. no complaints. No SI/SIB/HI/AVH expressed. Diagnostics Vital Signs (24Hr): Vital Signs - 24 hr 07/24/25 20:00 07/25/25 10:18 Temperature 99.2 F 98.6 F Pulse Rate 86 90 Respiratory Rate 16 16 Blood Pressure 145/84 H 123/58 L Pulse Oximetry 100 98 Oxygen Delivery Method Room Air Room Air BMI result Body Mass Index 23.2 Labs 06/25/25 08:02 06/20/25 20:35 Medications Medications Current Medications Acetaminophen (Acetaminophen 325 Mg Tablet) 650 mg PO Q4H PRN PRN Reason: Pain, Mild (Pain Scale 1-3) Last Admin: 07/06/25 22:53 Dose: 650 mg Al Hydroxide/Mg Hydroxide (Magnesium Hydrox/Alum Hydrox 30 Ml Oral.Susp) 30 ml PO Q6H PRN PRN Reason: Heart burn Benzocaine (Benzocaine 20 % Oral Gel 14 Gm Tube) 1 appl MUCOUS MEM QID PRN; Protocol PRN Reason: Mouth Sore Pain Last Admin: 04/26/25 18:33 Dose: 1 appl Diazepam (Diazepam 10 Mg/2 Ml Cartridge) 10 mg IM BID PRN PRN Reason: refusal of lithium, per [place] Last Admin: 04/11/25 09:56 Dose: 10 mg Glycopyrrolate (Glycopyrrolate 1 Mg Tablet) 1 mg PO BID [facility] Last Admin: 07/25/25 10:20 Dose: 1 mg Hydrocortisone (Hydrocortisone 1 % Cream 28.35 Gm Tube) 1 appl TOPICAL DAILY PRN; Protocol PRN Reason: rash Last Admin: 07/17/25 23:13 Dose: 1 appl Cranston Carbonate (Cranston Carbonate Er 300 Mg Tablet.Er) 600 mg PO DAILY [facility] Last Admin: 07/25/25 10:21 Dose: 600 mg Cranston Carbonate (Cranston Carbonate Er 450 Mg Tablet.Er) 900 mg PO DAILY@2300 [facility] Last Admin: 07/24/25 21:53 Dose: 900 mg Magnesium Hydroxide (Milk Of Magnesia 30 Ml Oral.Susp) 30 ml PO DAILY PRN PRN Reason: Constipation Methimazole (Methimazole 10 Mg Tablet) 10 mg PO DAILY [facility] Last Admin: 07/25/25 10:21 Dose: 10 mg Nicotine (Nicotine 21 Mg Patch.Td24) 21 mg TRANSDERMA DAILY PRN PRN Reason: nicotine cravings Last Admin: 04/12/25 17:06 Dose: 21 mg Nicotine Polacrilex (Nicotine Polacrilex Lozenge 2 Mg Lozenge) 2 mg BUCCAL Q1H PRN PRN Reason: Nicotine Cravings Last Admin: 04/30/25 08:49 Dose: 2 mg Patient Own Medication Excedrin 250/250/65mg 2 each PO Q8H PRN PRN Reason: Migraine Headache Last Admin: 07/16/25 22:13 Dose: 2 each Olanzapine (Olanzapine 10 Mg Vial) 10 mg IM DAILY PRN PRN Reason: if refuse Invega PO Paliperidone Palmitate (Paliperidone Palmitate 234 Mg/1.5 Ml Syringe) 234 mg IM Q30D K[facility]ST[facility] Pseudoephedrine HCl (Pseudoephedrine Hcl 30 Mg Tablet) 30 mg PO Q6H PRN PRN Reason: Congestion Last Admin: 07/03/25 21:18 Dose: 30 mg Quetiapine Fumarate (Quetiapine Fumarate 100 Mg Tablet) 100 mg PO BEDTIME PRN PRN Reason: insomnia Last Admin: 07/24/25 21:52 Dose: 100 mg Quetiapine Fumarate (Quetiapine Fumarate 50 Mg Tablet) 50 mg PO BID PRN PRN Reason: agitation Last Admin: 07/23/25 22:28 Dose: 50 mg Sodium Chloride (Sodium Chloride 0.65 % Nasal 44 Ml Sprbtl) 1 spray NOSTRIL-B Q4H PRN PRN Reason: Congestion Last Admin: 07/03/25 23:03 Dose: 1 spray Allergies Allergies Allergy/AdvReac Type Severity Reaction Status Date / Time No Known Allergies Allergy Verified 03/26/25 14:24 Assessment & Plan Assessment & Plan (1) Graves disease: Status: Acute Code(s): E05.00 - Thyrotoxicosis with diffuse goiter without thyrotoxic crisis or storm Assessment and Plan: Hyperthyroidism/Graves disease. He will need follow up with endocrinology as an outpatient He will also need a primary care doctor referral as an outpatient Discussed with Dr. Bejarano, patient will need free T4 weekly Decrease Methimazole to 15 mgs daily for three days and then 10 mgs daily- discussed with patient he is aware of plan and rationale. TSH and free T4 every 4 weeks. No need to draw thyroid stimulation immunology or TSH receptor AB (2) Dental abscess: Status: Acute Code(s): K04.7 - Periapical abscess without sinus Assessment and Plan: Carious tooth/dental infection Recently treated with PEN VK 500 mg q.6 hours for 7 days Patient will need follow up with dentist on discharge for tooth extraction Motrin helping pain. (3) Becca: Status: Acute Code(s): F30.9 - Manic episode, unspecified Plan 03/26: offer lithium and seroquel for becca. continue methimazole and beta joanne for hyperthyroidism as started at [facility]. trend TFTs. 12b. 03/27: taking methimazole and beta joanne. refused HS meds last night, took morning meds today. continue to encourage medication compliance. 03/28: intermittently taking meds. wants all meds in morning. pressured, manic, paranoid delusions. encouraged to take lithium but states he will not. all meds ordered for morning. 03/29: Keeping to self. no groups. observed laying in bed listening to music on unit headphones. pleasant. Pt reports feeling good today and sleeping well. declined lithium and zyprexa. denies SI/HI/VH/AH. continue current tx plan. 03/30:Irritable. upset he was unable to use his personal hygiene products. Per nursing, pt threatened staff and squeezed tooth paste throughout unit hallway to show his frustration. Pt was able to calm down after speaking with security. declined medications. 03/31: Keeping to self. laying in bed listening to music. refused medications. calm today. Patient reports feeling great ; pt stated, nothing is wrong with me. I'm waiting so I can leave tomorrow. I'm hoping for the best . denies SI/HI/VH/AH. per nursing, slept 6 hours. Continue current tx plan. 04/01: variably calm on the unit versus highly agitated. paranoid delusions, irritability, lability continue. seems to believe MD has met him prior to the present hospitalization and is stalking him. believes brother behind conspiracy to have him psychiatrically hospitalized. has been refusing all medications, including for hyperthyroidism. informed he would be filed on. filed. continue to offer medications. 04/02: continues agitated, belittling, verbally aggressive, refusing all medications including for hyperthyroidism. continue to offer medication. 04/03: paranoid there is a conspiracy to hospitalize him. threatening to stick a stick in staff once he is released by road worker. insists his hyperthyroidism was cured at [facility]. asserts there is NOTHING wrong with him. continue to offer medication. 04/04: irritable, rejecting. verbally abuses MD and sends him away: see you on monday [in court]. continue to offer medication for thyroid condition and mental illness. 04/05 continue tx. suspicious and guarded, accusatory, verbal threats to hurt staff and peers 04/06 intrusive, posturing towards staff and peer who he thinks is not real and is an impostor, continues to make verbal threats to harm him but thinks that because he is not real he may not experience any pain. 04/07: threatening statements and behaviors of yesterday noted. pt sleeping this morning, dismissive of MD. 04/08: asleep days. committed and meds ordered by court. 04/09: on being informed of court order and MD insisting on meds, pt escalated to hurling food item in container against wall at high speed and saying he wished he could do the same to MD's head. pt eventually took court ordered meds PO. sensodyne and excedrin not available in pharmacy (pt requesting them). 04/10: continue tx. Pt accepting medication today. 04/11: Keeping to self. Lying in bed most of morning. Declined to meet with T/W. Pt stated, I'm fine. I don't need anything . Listening to headphones in room. Declined court ordered PO medications; received IM medications. Refused vital signs.continue tx plan. 04/12: got IMs yesterday, took PO this morning. sleepy, no concerns or complaints. 04/13: taking PO meds again. slept 7 hours. sleepy again mid morning refusing interview. continue current mgmt. 04/14: sleeping, rousable. denies being sedated or tired, says he's just bored. no questions or complaints. informed of need to check labs. check lithium level and thyroid labs tonight. 04/15: refusing labs. delusional re his brother harming him. verbally abusive toward MD. spat in floor. happy with improvement in proptosis. 04/16: Lying in bed. Calm. cooperative. guarded. Pt reports feeling tired this morning d/t poor sleep last night. Pt stated, I don't need anything. I didn't sleep well so I'm trying to catch up . denies any issues at this time. denies SI/HI/VH/AH. Continue current tx plan. 04/17: more calm today, less explosive. continue current mgmt. 04/18: continues more calm. tolerating moments of frustration without verbally attacking MD. slept only 2 hours overnight, however. continue current mgmt. 04/19 continues to push boundaries and limits with staff mike around cell phone- 04/20 - aggressive with staff and unpredictable- threw water pitcher at staff behind desk/-when seen by provider passive in bed-denying all compaints/sys- no insight 04/21: appears as per last week. more difficult behaviors around cell phone use, did throw pitcher of water at RN monday over phone use and was restrained. continue current mgmt. 04/22: continues to have conflict around cell phone use. consolidate zyprexa at HS to decrease daytime sedation. 1:1 allegra shift until peer he is accusing of not being a real patient and appears to be targeting discharges tomorrow. 04/23: lithium 0.6 on 600 BID. sleeping better, remains delusional (telling SW who is marginally younger than him that she could be his daughter). just changed zyprexa dosing as of last night. continue current regimen and observe for continued stabilization. T/C slight increase in lithium dosing. 04/24: Laying in bed. guarded. calm. did not want to get out of bed to meet with T/W. Pt reports feeling great today but declined to go into detail. listening to music on unit headphones. Pt stated, I'm fine. I don't need anything . denies any issues at this time. denies SI/HI/VH/AH. Continue current tx plan. 04/25: Laying in bed. keeping to self. calm. paranoid. Discussed incident that occurred with staff last evening. Pt stated, the counselor made up a lie yesterday. I said she looks like my ex-girlfriend. I know they are related. They want to make up a lie to irritate me. They are trying to talk to me so they can use recording devices and make me look some kind of way . listening to music on unit headphones. denies SI/HI/VH/AH. Continue current tx plan. 04/26: Continue current regimen and plans. Increase Zyprexa 20 mg q.h.s. fresh air break withheld 04/27: Continue current regimen and plans 04/28: somewhat less irritable and agitated than last week. however, over the weekend was claiming he was the father of a footballer on TV and also that a staff member is a twin of his ex-GF (and he pushed staff member). TFTs improving. continue current mgmt. 04/29: no change in presentation. continue current mgmt. 04/30: no irritable edge today. calm, pleasant. engaging in small talk. reality testing not pressed. continue current mgmt for now. 05/01: no change in presentation. continue current mgmt. 05/02: BPs coming down, DC beta joanne as pt has been refusing anyway. remains not antagonistic toward MD. using phone appropriately. continue current mgmt otherwise. 05/03 continue 05/04: remains delusional, irritable/labile when delusional system confronted. declines to sign TOMMY for [facility] records. continue current mgmt. 05/06: declining to meet with MD, but does meet with medical student. remains upset about yesterday's confrontation re his delusional system. 05/07: Active on unit. keeping to self. pacing unit hallway while listening to unit headphones. medication compliant. patient reports feeling good ; pt stated, I'm just waiting to leave here. I want to return to my life and do things like go grocery shopping . denies SI/HI/VH/AH. Continue current tx plan. 05/08: stable presentation, delusions not being brought to the surface daily. remains affectively improved from admission. continue current mgmt. 05/09: calm, pleasant. no questions or complaints. continue current mgmt. 05/10: no change in presentation. due to lack of improvement in dental infection Sx, DC PCN and start augmentin. 05/11: no change in presentation. continue current mgmt. 05/12: as for yesterday. dental pain improving a bit. 05/13: expressed to medical student that his brother poisoned him, causing his thyroid disease. no change in presentation. continue current mgmt. 05/14: Pacing unit hallway. keeping to self. patient reports feeling good today; denies any issues at this time. denies SI/HI/VH/AH. per nursing, slept 5 hours. Continue current tx plan. 05/15: slept 6 hours. otherwise isolative, difficult to engage. continue current mgmt. 05/16: slept 7 hours. as for yesterday otherwise. 05/17/25: Slept well, no issue with appetite, skinny and pretty tall. Compliant with medication. No side effects Calm and pleasant upon approach. Some what paranoid. Tangential, however denies other safety concerns. Questions if he is discharging soon. He is on antibiotic for 7 days for mouth pain/tooth pain. We will finish the 7 course up in antibiotic after tonight dose. Then discontinue. 05/18/25: Slept for 5 hours plus hours this morning. In bed most of the shift, no behavior issues. Denies other safety concerns. 05/19: in bed days, up eves. no change in presentation. continue current mgmt. 05/20: no change in presentation. check labs. 05/21: lithium low, TFTs mixed and not all back. increase lithium from 600 BID to 600/900. trend BUN/Cr, with slight elevation. otherwise continue current mgmt. 05/22: no change in presentation. continue current mgmt. 05/23: does not deny someone stole his sperm and impregnated his landlord's child with it. irritable. c/o dental pain, antibx restarted. otherwise continue current mgmt. 05/14: no change in mgt 05/25: more isolative today; no change in mgt 05/26: decreases in methimazole noted. continue psych regimen as is. pt refused to interact with MD today. 05/27: i'm sleeping. no change in presentation. labs tonight. 05/28: no change in behavior. lithium 0.66, BUN stable. continue current mgmt. 05/29: irritable. continue current mgmt. 05/30: no longer in single room. still not engaging, sleeping days. continue current mgmt. 05/31:laying in bed. declined to meet with T/W. pt stated, I want to sleep. I didn't sleep enough . Pt encouraged to reach out to staff if he needs anything. Continue current tx plan. 06/01: Similar to yesterday. laying in bed. Irritable. declined to meet with T/W and pulled bed sheets over head. pt stated, I don't want to talk. I want to sleep . difficult to engage. Continue current tx plan. 06/02: Similar to yesterday. laying in bed. Irritable. declined to meet with T/W. Observed getting drink from kitchen; T/W approached pt and asked if they could speak. patient declined to acknowledge T/W and walked past. Continue current tx plan. 06/03: no change in behavior. continue tx plan. 06/04/25: Passive engaged in the assessment, in bed mostly sleeping this morning which could be interfere with his nighttime. Cover body under the blanket Slept for 4-5 hours last night. Was medication compliant, attended no groups, isolative to self in room. No SI/SIB/HI/AVH expressed. 06/05: continue tx plan. 06/06: reports feeling fine ; continues guarded. difficult to engage. declining to meet with T/W. continue tx plan. 06/07/25: Slept for 4 hours at night, but has been sleeping most of the day yesterday as well. Spent majority of the shift in bed, was medication compliant. Passive engaged in the conversation. He said he will try to change the sleeping pattern so that he can be awake more during the daytime. Appear to be sedated in the morning. No safety behavior. 06/08/25: Slept for 3-4 hours last night, compliant with medications. Denies side effects, denies other safety concerns. Continued to encourage patient to up and down more than on the unit he spent most of the day sleeping. He is pleasant upon approach. No other behavior issues. Denied voices/hallucinations. Suicide thoughts or homicidal thoughts. 06/09: sleeping, minimally rousable. denies problems. continue current mgmt. 06/10: sleeping all day, up most of the night. minimally rousable. denies problems. continue current mgmt. per JAMAICA Arrington: Jean said when he leaves he can return to [facility]. he was living with a lady there and can go back. He plans to get a job to pay off his debt. He said he owes money because they sent him back here due to losing his passport and he owes them money for the temporary emergency passport and the flight back to the . so his main focus is to get a job. he said he will try things here first and if it doesn't work out he plans to return to [place]. 06/11/25: Passively engaged in conversation while in bed sleeping/resting. Able to answer question appropriately, but seems to be minimized. Denies SI/SIB/HI/AVH. He slept 5 hours last night, spent most of the day in bed sleeping. Attempted to no groups, observed out to the afternoon in the subramanian near the nurse station. No change in presentation. Encourage groups,up and engaged in groups. 06/12: not engaging. no complaints or questions re med changes. cross-taper zyprexa in favor of invega, give MONTERO invega. tonight, decrease zyprexa to 15 mg and start invega 3 mg. otherwise continue current mgmt. 06/13: continues avoidant and disengaged. denies side effects from med change last night. informed cross-titration will advance tonight. decrease zyprexa to 10 mg tonight, increase paliperidone to 6 mg. plan to continue by 5 mg zyprexa and 3 mg paliperidone increments every several days as tolerated until zyprexa DCed and paliperidone at 12 mg QHS. once it is established pt is tolerating PO Paliperidone, invega sustenna to be administered. 06/14: Continue current regimen and plans 06/15: Continue current plans and regimen 06/16: irritable re neuroleptic change. denies side effects or problems with it, however. minimally engageable. increase invega to 9 QHS and decrfease zyprexa to 5 QHS. 06/17/25: Continued to be irritable regarding medication change/titration. However engaged in conversation, hyper verbal, paranoid, reports medication slow his thoughts down and he does not not like it. Poor insight and poor judgment. He thinks he only need lithium, not other medications. Remind patient to continue doing the sleep pattern changing. However his in bed mostly this morning. Slept for 4-5 hours last night. 06/18/25: Slept for 5 hours last night as he continues sleeping during daytime. Compliant with meds, did not c/o side effects.Passingly engaging in assessment. Denies safety concerns. Tolerate the tritation well. Will increase Inveag up to max of 12 tomorrow and Discontinue Olanzepine at HS. Continue to encourage up and out on day so he can sleep better at HS. 06/19/25: Patient slept for 5.5 hours last night, was medication compliant, mostly in his room yesterday but seen more often in the evening. Patient is awake in his room, listen to music, his morning tray was taken away and clean the area. He is very pleasant to talk to today, reports he feels good, denies side effects from medications, denies any safety concerns. Denies feeling sedation, denies anxiety/depression. He is receptive with the plan of medication over the weekends and next week, happy to hear about the medication plan. He also agree with the MONTERO Invega Sustenna on Monday. Encourage him to go out and attended to groups, he said that he will. Reported that he was out for groups a couple of times last week. Discontinue Haldol p.r.n.. Discontinue scheduled Zyprexa 5 mg at bedtime. Only on Zyprexa at g IM daily p.r.n. as backup orders if refused Invega. Invega 12 mg at bedtime. Plan to monitor over the weekends and will give long- acting injection on Monday if tolerate with the p.o. well Reduce Seroquel 200 mg p.r.n. at bedtime to 100 p.r.n. at bedtime for insomnia. Seroquel 50 mg b.i.d. p.r.n. for agitation. Discontinue Motrin. Patient on lithium. Labs were for MondayJune 20: CMP, TSH with free T4. 06/20/25: In bed most of the day, was compliant with medication, however refused labs work. Re- scheduled for Monday. Continue with Invega 12 mg at bedtime. We will reassess and offer long-acting injection on Monday. Continue to encourage patient to get up and go to some groups. No safety concerns expressed. Minimal peer and staff interaction. 06/21: no change in presentation. start MONTERO monday. no s/e from invega. otherwise continue current mgmt. 06/22: stable. continue current mgmt. 06/23/25: More awake and alert. Review with patient regarding policy for his phone use BID 30min each time, patient is educated on compliant with policy. He asks for more 5-10 min extra headphone use at night on the weekends after 0. Once again, redirected for unit rules. He agrees with MONTERO which is scheduled today. Discontinue Invega PO Invega Sustenna 234mg IM once. Will monitor for possible side effects and sedation. Will offer 156mg after 1 week. If mentaly stable with 156mg, will maintain at this dose, if not will offer 234mg Monthly. 06/24/25: Slept for 5 hours last night, but also went to bed around 7 tonight p.m. last night per his report. He also attended to groups in the afternoon yesterday. Compliant with medications. No side effects from Invega Sustenna. He is engaged in full conversation today why he is in bed, denies safety concerns. Observe he is on the unit, social with peers and staff in longer period of time. Appeared to be happy. He plans to take shower today. Reported that he was up early but he does not feel hungry in the morning. He is making progress, not too sedated during daytime since switching his medication. Appears to do well so far with Invega Sustenna. 06/25/25: Patient slept for 4 hours last night, however he reported was napping in the afternoon for couple hours which affect his sleeping pattern at night. Educate patient to not napping late in the evening. He is receptive. Compliant with medications, no side effects. He reports his did not shower yesterday but he will today. He is awake in his room not sleeping, engage in full conversation, no delusional or paranoid statements make. He is visible at times. Continued to improve in mood, engaging in other activities on the unit. Denies other safety concerns. Denies hallucinations. No irritability mood, not sedated during day time compared to when he was taking olanzapine. We will schedule Invega Sustenna 156 next Monday. Work with social media marketing specialist to see where he will return to. He probably needs [facility] to manage medication. 06/26/25: He slept for 5 hours, compliant with medications. Denies side effects. He self-reported that he went to bed last night and was able to fall asleep by 01:00 and able to stay asleep whole night. Denies safety concerns. I spoke with him in length today regarding aftercare. He thinks he will go to the hospital in [place] to ask them regarding his heart condition. He thinks people was lying to get him to the hospital as he does not have mental health illnesses. He believes that he has been exactly the same he was seen he was a little, and at he able to remember everything in the past. He also reports that he used to use [facility] in [place]. At he does not want [facility] application. I explained to him that in order to be a candidate patient have to be a safe that he has mental health issues, so people can submit the application, and from the [facility] worker will contact him to do assessment if he qualify for any services that they can provide. Patient is receptive application, social media marketing specialist was notified. Patient also would like to have services with [facility] in [place]. He showered yesterday morning, did not go to groups yesterday, but he will go to some groups today per his plan for the day, more awake, engaged in conversation, no irritability. However, continued to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
[2025-07-25 19:53] VITALS: BP 118/59; PULSE 75; RESP 16; TEMP 37.2; O2SAT 100
--- NOTE | 2025-07-26 10:11 | P.PNPSI_ITS ---
Subjective Subjective Date of Service: 07/26/25 Reason For Visit: psychotic disorder Interim History: Seen in bed. He is unchanged in presentation. He is calm and cooperative. Isolates in his room most of the time. Denies SI/HI/AVH. Review of Systems Review of Systems nothing of note Yes all other systems are reviewed and are negative and Unobtainable due to mental status Mental Status Exam Mental Status Exam Narrative: in bed. cooperative. speech nml rate, decr amount and loudness. thoughts linear and logical. mood euthymic. no complaints. No SI/SIB/HI/AVH expressed. Patient Appearance: Appropriate Patient Orientation: Person, Place, Time and Situation Level of Consciousness: Drowsy Patient Behavior: Guarded and Cooperative Mood Description: Calm Affect Description: Calm Patient Cognition Impaired: No Ability to Follow Directions: Good Speech Pattern: Clear Memory Description: Intact Diagnostics Vital Signs (24Hr): Vital Signs - 24 hr 07/25/25 10:18 07/25/25 19:53 Temperature 98.6 F 98.9 F Pulse Rate 90 75 Respiratory Rate 16 16 Blood Pressure 123/58 L 118/59 L Pulse Oximetry 98 100 Oxygen Delivery Method Room Air Room Air BMI result Body Mass Index 23.2 Labs 06/25/25 08:02 06/20/25 20:35 Medications Medications Current Medications Acetaminophen (Acetaminophen 325 Mg Tablet) 650 mg PO Q4H PRN PRN Reason: Pain, Mild (Pain Scale 1-3) Last Admin: 07/06/25 22:53 Dose: 650 mg Al Hydroxide/Mg Hydroxide (Magnesium Hydrox/Alum Hydrox 30 Ml Oral.Susp) 30 ml PO Q6H PRN PRN Reason: Heart burn Benzocaine (Benzocaine 20 % Oral Gel 14 Gm Tube) 1 appl MUCOUS MEM QID PRN; Protocol PRN Reason: Mouth Sore Pain Last Admin: 04/26/25 18:33 Dose: 1 appl Diazepam (Diazepam 10 Mg/2 Ml Cartridge) 10 mg IM BID PRN PRN Reason: refusal of lithiummary Last Admin: 04/11/25 09:56 Dose: 10 mg Glycopyrrolate (Glycopyrrolate 1 Mg Tablet) 1 mg PO BID [facility] Last Admin: 07/25/25 22:48 Dose: 1 mg Hydrocortisone (Hydrocortisone 1 % Cream 28.35 Gm Tube) 1 appl TOPICAL DAILY PRN; Protocol PRN Reason: rash Last Admin: 07/17/25 23:13 Dose: 1 appl Davie Carbonate (Davie Carbonate Er 300 Mg Tablet.Er) 600 mg PO DAILY [facility] Last Admin: 07/25/25 10:21 Dose: 600 mg Davie Carbonate (Davie Carbonate Er 450 Mg Tablet.Er) 900 mg PO DAILY@2300 KRISTAL Last Admin: 07/25/25 22:47 Dose: 900 mg Magnesium Hydroxide (Milk Of Magnesia 30 Ml Oral.Susp) 30 ml PO DAILY PRN PRN Reason: Constipation Methimazole (Methimazole 10 Mg Tablet) 10 mg PO DAILY [facility] Last Admin: 07/25/25 10:21 Dose: 10 mg Nicotine (Nicotine 21 Mg Patch.Td24) 21 mg TRANSDERMA DAILY PRN PRN Reason: nicotine cravings Last Admin: 04/12/25 17:06 Dose: 21 mg Nicotine Polacrilex (Nicotine Polacrilex Lozenge 2 Mg Lozenge) 2 mg BUCCAL Q1H PRN PRN Reason: Nicotine Cravings Last Admin: 04/30/25 08:49 Dose: 2 mg Patient Own Medication Excedrin 250/250/65mg 2 each PO Q8H PRN PRN Reason: Migraine Headache Last Admin: 07/16/25 22:13 Dose: 2 each Olanzapine (Olanzapine 10 Mg Vial) 10 mg IM DAILY PRN PRN Reason: if refuse Invega PO Paliperidone Palmitate (Paliperidone Palmitate 234 Mg/1.5 Ml Syringe) 234 mg IM Q30D [facility] Pseudoephedrine HCl (Pseudoephedrine Hcl 30 Mg Tablet) 30 mg PO Q6H PRN PRN Reason: Congestion Last Admin: 07/03/25 21:18 Dose: 30 mg Quetiapine Fumarate (Quetiapine Fumarate 100 Mg Tablet) 100 mg PO BEDTIME PRN PRN Reason: insomnia Last Admin: 07/25/25 22:53 Dose: 100 mg Quetiapine Fumarate (Quetiapine Fumarate 50 Mg Tablet) 50 mg PO BID PRN PRN Reason: agitation Last Admin: 07/23/25 22:28 Dose: 50 mg Sodium Chloride (Sodium Chloride 0.65 % Nasal 44 Ml Sprbtl) 1 spray NOSTRIL-B Q4H PRN PRN Reason: Congestion Last Admin: 07/03/25 23:03 Dose: 1 spray Allergies Allergies Allergy/AdvReac Type Severity Reaction Status Date / Time No Known Allergies Allergy Verified 03/26/25 14:24 Assessment & Plan Assessment & Plan (1) Graves disease: Status: Acute Code(s): E05.00 - Thyrotoxicosis with diffuse goiter without thyrotoxic crisis or storm Assessment and Plan: Hyperthyroidism/Graves disease. He will need follow up with endocrinology as an outpatient He will also need a primary care doctor referral as an outpatient Discussed with Dr. Bejarano, patient will need free T4 weekly Decrease Methimazole to 15 mgs daily for three days and then 10 mgs daily- discussed with patient he is aware of plan and rationale. TSH and free T4 every 4 weeks. No need to draw thyroid stimulation immunology or TSH receptor AB (2) Dental abscess: Status: Acute Code(s): K04.7 - Periapical abscess without sinus Assessment and Plan: Carious tooth/dental infection Recently treated with PEN VK 500 mg q.6 hours for 7 days Patient will need follow up with dentist on discharge for tooth extraction Motrin helping pain. (3) Becca: Status: Acute Code(s): F30.9 - Manic episode, unspecified Plan 03/26: offer lithium and seroquel for becca. continue methimazole and beta joanne for hyperthyroidism as started at [facility]. trend TFTs. 12b. 03/27: taking methimazole and beta joanne. refused HS meds last night, took morning meds today. continue to encourage medication compliance. 03/28: intermittently taking meds. wants all meds in morning. pressured, manic, paranoid delusions. encouraged to take lithium but states he will not. all meds ordered for morning. 03/29: Keeping to self. no groups. observed laying in bed listening to music on unit headphones. pleasant. Pt reports feeling good today and sleeping well. declined lithium and zyprexa. denies SI/HI/VH/AH. continue current tx plan. 03/30:Irritable. upset he was unable to use his personal hygiene products. Per nursing, pt threatened staff and squeezed tooth paste throughout unit hallway to show his frustration. Pt was able to calm down after speaking with security. declined medications. 03/31: Keeping to self. laying in bed listening to music. refused medications. calm today. Patient reports feeling great ; pt stated, nothing is wrong with me. I'm waiting so I can leave tomorrow. I'm hoping for the best . denies SI/HI/VH/AH. per nursing, slept 6 hours. Continue current tx plan. 04/01: variably calm on the unit versus highly agitated. paranoid delusions, irritability, lability continue. seems to believe MD has met him prior to the present hospitalization and is stalking him. believes brother behind conspiracy to have him psychiatrically hospitalized. has been refusing all medications, including for hyperthyroidism. informed he would be filed on. filed. continue to offer medications. 04/02: continues agitated, belittling, verbally aggressive, refusing all medications including for hyperthyroidism. continue to offer medication. 04/03: paranoid there is a conspiracy to hospitalize him. threatening to stick a stick in staff once he is released by assistant elementary teacher. insists his hyperthyroidism was cured at [facility]. asserts there is NOTHING wrong with him. continue to offer medication. 04/04: irritable, rejecting. verbally abuses MD and sends him away: see you on monday [in court]. continue to offer medication for thyroid condition and mental illness. 04/05 continue tx. suspicious and guarded, accusatory, verbal threats to hurt staff and peers 04/06 intrusive, posturing towards staff and peer who he thinks is not real and is an impostor, continues to make verbal threats to harm him but thinks that because he is not real he may not experience any pain. 04/07: threatening statements and behaviors of yesterday noted. pt sleeping this morning, dismissive of MD. 04/08: asleep days. committed and meds ordered by court. 04/09: on being informed of court order and MD insisting on meds, pt escalated to hurling food item in container against wall at high speed and saying he wished he could do the same to MD's head. pt eventually took court ordered meds PO. sensodyne and excedrin not available in pharmacy (pt requesting them). 04/10: continue tx. Pt accepting medication today. 04/11: Keeping to self. Lying in bed most of morning. Declined to meet with T/W. Pt stated, I'm fine. I don't need anything . Listening to headphones in room. Declined court ordered PO medications; received IM medications. Refused vital signs.continue tx plan. 04/12: got IMs yesterday, took PO this morning. sleepy, no concerns or complaints. 04/13: taking PO meds again. slept 7 hours. sleepy again mid morning refusing interview. continue current mgmt. 04/14: sleeping, rousable. denies being sedated or tired, says he's just bored. no questions or complaints. informed of need to check labs. check lithium level and thyroid labs tonight. 04/15: refusing labs. delusional re his brother harming him. verbally abusive toward MD. spat in floor. happy with improvement in proptosis. 04/16: Lying in bed. Calm. cooperative. guarded. Pt reports feeling tired this morning d/t poor sleep last night. Pt stated, I don't need anything. I didn't sleep well so I'm trying to catch up . denies any issues at this time. denies SI/HI/VH/AH. Continue current tx plan. 04/17: more calm today, less explosive. continue current mgmt. 04/18: continues more calm. tolerating moments of frustration without verbally attacking MD. slept only 2 hours overnight, however. continue current mgmt. 04/19 continues to push boundaries and limits with staff mike around cell phone- 04/20 - aggressive with staff and unpredictable- threw water pitcher at staff behind desk/-when seen by provider passive in bed-denying all compaints/sys- no insight 04/21: appears as per last week. more difficult behaviors around cell phone use, did throw pitcher of water at RN monday over phone use and was restrained. continue current mgmt. 04/22: continues to have conflict around cell phone use. consolidate zyprexa at HS to decrease daytime sedation. 1:1 allegra shift until peer he is accusing of not being a real patient and appears to be targeting discharges tomorrow. 04/23: lithium 0.6 on 600 BID. sleeping better, remains delusional (telling SW who is marginally younger than him that she could be his daughter). just changed zyprexa dosing as of last night. continue current regimen and observe for continued stabilization. T/C slight increase in lithium dosing. 04/24: Laying in bed. guarded. calm. did not want to get out of bed to meet with T/W. Pt reports feeling great today but declined to go into detail. listening to music on unit headphones. Pt stated, I'm fine. I don't need anything . denies any issues at this time. denies SI/HI/VH/AH. Continue current tx plan. 04/25: Laying in bed. keeping to self. calm. paranoid. Discussed incident that occurred with staff last evening. Pt stated, the counselor made up a lie yesterday. I said she looks like my ex-girlfriend. I know they are related. They want to make up a lie to irritate me. They are trying to talk to me so they can use recording devices and make me look some kind of way . listening to music on unit headphones. denies SI/HI/VH/AH. Continue current tx plan. 04/26: Continue current regimen and plans. Increase Zyprexa 20 mg q.h.s. fresh air break withheld 04/27: Continue current regimen and plans 04/28: somewhat less irritable and agitated than last week. however, over the weekend was claiming he was the father of a footballer on TV and also that a staff member is a twin of his ex-GF (and he pushed staff member). TFTs improving. continue current mgmt. 04/29: no change in presentation. continue current mgmt. 04/30: no irritable edge today. calm, pleasant. engaging in small talk. reality testing not pressed. continue current mgmt for now. 05/01: no change in presentation. continue current mgmt. 05/02: BPs coming down, DC beta joanne as pt has been refusing anyway. remains not antagonistic toward MD. using phone appropriately. continue current mgmt otherwise. 05/03 continue 05/04: remains delusional, irritable/labile when delusional system confronted. declines to sign TOMMY for [facility] records. continue current mgmt. 05/06: declining to meet with MD, but does meet with medical student. remains upset about yesterday's confrontation re his delusional system. 05/07: Active on unit. keeping to self. pacing unit hallway while listening to unit headphones. medication compliant. patient reports feeling good ; pt stated, I'm just waiting to leave here. I want to return to my life and do things like go grocery shopping . denies SI/HI/VH/AH. Continue current tx plan. 05/08: stable presentation, delusions not being brought to the surface daily. remains affectively improved from admission. continue current mgmt. 05/09: calm, pleasant. no questions or complaints. continue current mgmt. 05/10: no change in presentation. due to lack of improvement in dental infection Sx, DC PCN and start augmentin. 05/11: no change in presentation. continue current mgmt. 05/12: as for yesterday. dental pain improving a bit. 05/13: expressed to medical student that his brother poisoned him, causing his thyroid disease. no change in presentation. continue current mgmt. 05/14: Pacing unit hallway. keeping to self. patient reports feeling good today; denies any issues at this time. denies SI/HI/VH/AH. per nursing, slept 5 hours. Continue current tx plan. 05/15: slept 6 hours. otherwise isolative, difficult to engage. continue current mgmt. 05/16: slept 7 hours. as for yesterday otherwise. 05/17/25: Slept well, no issue with appetite, skinny and pretty tall. Compliant with medication. No side effects Calm and pleasant upon approach. Some what paranoid. Tangential, however denies other safety concerns. Questions if he is discharging soon. He is on antibiotic for 7 days for mouth pain/tooth pain. We will finish the 7 course up in antibiotic after tonight dose. Then discontinue. 05/18/25: Slept for 5 hours plus hours this morning. In bed most of the shift, no behavior issues. Denies other safety concerns. 05/19: in bed days, up eves. no change in presentation. continue current mgmt. 05/20: no change in presentation. check labs. 05/21: lithium low, TFTs mixed and not all back. increase lithium from 600 BID to 600/900. trend BUN/Cr, with slight elevation. otherwise continue current mgmt. 05/22: no change in presentation. continue current mgmt. 05/23: does not deny someone stole his sperm and impregnated his landlord's child with it. irritable. c/o dental pain, antibx restarted. otherwise continue current mgmt. 05/14: no change in mgt 05/25: more isolative today; no change in mgt 05/26: decreases in methimazole noted. continue psych regimen as is. pt refused to interact with MD today. 05/27: i'm sleeping. no change in presentation. labs tonight. 05/28: no change in behavior. lithium 0.66, BUN stable. continue current mgmt. 05/29: irritable. continue current mgmt. 05/30: no longer in single room. still not engaging, sleeping days. continue current mgmt. 05/31:laying in bed. declined to meet with T/W. pt stated, I want to sleep. I didn't sleep enough . Pt encouraged to reach out to staff if he needs anything. Continue current tx plan. 06/01: Similar to yesterday. laying in bed. Irritable. declined to meet with T/W and pulled bed sheets over head. pt stated, I don't want to talk. I want to sleep . difficult to engage. Continue current tx plan. 06/02: Similar to yesterday. laying in bed. Irritable. declined to meet with T/W. Observed getting drink from kitchen; T/W approached pt and asked if they could speak. patient declined to acknowledge T/W and walked past. Continue current tx plan. 06/03: no change in behavior. continue tx plan. 06/04/25: Passive engaged in the assessment, in bed mostly sleeping this morning which could be interfere with his nighttime. Cover body under the blanket Slept for 4-5 hours last night. Was medication compliant, attended no groups, isolative to self in room. No SI/SIB/HI/AVH expressed. 06/05: continue tx plan. 06/06: reports feeling fine ; continues guarded. difficult to engage. declining to meet with T/W. continue tx plan. 06/07/25: Slept for 4 hours at night, but has been sleeping most of the day yesterday as well. Spent majority of the shift in bed, was medication compliant. Passive engaged in the conversation. He said he will try to change the sleeping pattern so that he can be awake more during the daytime. Appear to be sedated in the morning. No safety behavior. 06/08/25: Slept for 3-4 hours last night, compliant with medications. Denies side effects, denies other safety concerns. Continued to encourage patient to up and down more than on the unit he spent most of the day sleeping. He is pleasant upon approach. No other behavior issues. Denied voices/hallucinations. Suicide thoughts or homicidal thoughts. 06/09: sleeping, minimally rousable. denies problems. continue current mgmt. 06/10: sleeping all day, up most of the night. minimally rousable. denies problems. continue current mgmt. per JAMAICA Arrington: Jean said when he leaves he can return to [facility]. he was living with a lady there and can go back. He plans to get a job to pay off his debt. He said he owes money because they sent him back here due to losing his passport and he owes them money for the temporary emergency passport and the flight back to the . so his main focus is to get a job. he said he will try things here first and if it doesn't work out he plans to return to [place]. 06/11/25: Passively engaged in conversation while in bed sleeping/resting. Able to answer question appropriately, but seems to be minimized. Denies SI/SIB/HI/AVH. He slept 5 hours last night, spent most of the day in bed sleeping. Attempted to no groups, observed out to the afternoon in the subramanian near the nurse station. No change in presentation. Encourage groups,up and engaged in groups. 06/12: not engaging. no complaints or questions re med changes. cross-taper zyprexa in favor of invega, give MONTERO invega. tonight, decrease zyprexa to 15 mg and start invega 3 mg. otherwise continue current mgmt. 06/13: continues avoidant and disengaged. denies side effects from med change last night. informed cross-titration will advance tonight. decrease zyprexa to 10 mg tonight, increase paliperidone to 6 mg. plan to continue by 5 mg zyprexa and 3 mg paliperidone increments every several days as tolerated until zyprexa DCed and paliperidone at 12 mg QHS. once it is established pt is tolerating PO Paliperidone, invega sustenna to be administered. 06/14: Continue current regimen and plans 06/15: Continue current plans and regimen 06/16: irritable re neuroleptic change. denies side effects or problems with it, however. minimally engageable. increase invega to 9 QHS and decrfease zyprexa to 5 QHS. 06/17/25: Continued to be irritable regarding medication change/titration. However engaged in conversation, hyper verbal, paranoid, reports medication slow his thoughts down and he does not not like it. Poor insight and poor judgment. He thinks he only need lithium, not other medications. Remind patient to continue doing the sleep pattern changing. However his in bed mostly this morning. Slept for 4-5 hours last night. 06/18/25: Slept for 5 hours last night as he continues sleeping during daytime. Compliant with meds, did not c/o side effects.Passingly engaging in assessment. Denies safety concerns. Tolerate the tritation well. Will increase Inveag up to max of 12 tomorrow and Discontinue Olanzepine at HS. Continue to encourage up and out on day so he can sleep better at HS. 06/19/25: Patient slept for 5.5 hours last night, was medication compliant, mostly in his room yesterday but seen more often in the evening. Patient is awake in his room, listen to music, his morning tray was taken away and clean the area. He is very pleasant to talk to today, reports he feels good, denies side effects from medications, denies any safety concerns. Denies feeling sedation, denies anxiety/depression. He is receptive with the plan of medication over the weekends and next week, happy to hear about the medication plan. He also agree with the MONTERO Invega Sustenna on Monday. Encourage him to go out and attended to groups, he said that he will. Reported that he was out for groups a couple of times last week. Discontinue Haldol p.r.n.. Discontinue scheduled Zyprexa 5 mg at bedtime. Only on 10 Zyprexa at g IM daily p.r.n. as backup orders if refused Invega. Invega 12 mg at bedtime. Plan to monitor over the weekends and will give long- acting injection on Monday if tolerate with the p.o. well Reduce Seroquel 200 mg p.r.n. at bedtime to 100 p.r.n. at bedtime for insomnia. Seroquel 50 mg b.i.d. p.r.n. for agitation. Discontinue Motrin. Patient on lithium. Labs were for MondayJune 20: CMP, TSH with free T4. 06/20/25: In bed most of the day, was compliant with medication, however refused labs work. Re- scheduled for Monday. Continue with Invega 12 mg at bedtime. We will reassess and offer long-acting injection on Monday. Continue to encourage patient to get up and go to some groups. No safety concerns expressed. Minimal peer and staff interaction. 06/21: no change in presentation. start MONTERO monday. no s/e from invega. otherwise continue current mgmt. 06/22: stable. continue current mgmt. 06/23/25: More awake and alert. Review with patient regarding policy for his phone use BID 30min each time, patient is educated on compliant with policy. He asks for more 5-10 min extra headphone use at night on the weekends after 2300. Once again, redirected for unit rules. He agrees with MONTERO which is scheduled today. Discontinue Invega PO Invega Sustenna 234mg IM once. Will monitor for possible side effects and sedation. Will offer 156mg after 1 week. If mentaly stable with 156mg, will maintain at this dose, if not will offer 234mg Monthly. 06/24/25: Slept for 5 hours last night, but also went to bed around 7 tonight p.m. last night per his report. He also attended to groups in the afternoon yesterday. Compliant with medications. No side effects from Invega Sustenna. He is engaged in full conversation today why he is in bed, denies safety concerns. Observe he is on the unit, social with peers and staff in longer period of time. Appeared to be happy. He plans to take shower today. Reported that he was up early but he does not feel hungry in the morning. He is making progress, not too sedated during daytime since switching his medication. Appears to do well so far with Invega Sustenna. 06/25/25: Patient slept for 4 hours last night, however he reported was napping in the afternoon for couple hours which affect his sleeping pattern at night. Educate patient to not napping late in the evening. He is receptive. Compliant with medications, no side effects. He reports his did not shower yesterday but he will today. He is awake in his room not sleeping, engage in full conversation, no delusional or paranoid statements make. He is visible at times. Continued to improve in mood, engaging in other activities on the unit. Denies other safety concerns. Denies hallucinations. No irritability mood, not sedated during day time compared to when he was taking olanzapine. We will schedule Invega Sustenna 156 next Monday. Work with director of social media marketing to see where he will return to. He probably needs [facility] to manage medication. 06/26/25: He slept for 5 hours, compliant with medications. Denies side effects. He self-reported that he went to bed last night and was able to fall asleep by 01:00 and able to stay asleep whole night. Denies safety concerns. I spoke with him in length today regarding aftercare. He thinks he will go to the hospital in [place] to ask them regarding his heart condition. He thinks people was lying to get him to the hospital as he does not have mental health illnesses. He believes that he has been exactly the same he was seen he was a little, and at he able to remember everything in the past. He also reports that he used to use [facility] in [place]. At he does not want [facility] application. I explained to him that in order to be a candidate patient have to be a safe that he has mental health issues, so people can submit the application, and from the [facility] worker will contact him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
[2025-07-26 20:00] VITALS: BP 142/79; PULSE 94; RESP 16; TEMP 36.4; O2SAT 100
[2025-07-27 08:00] VITALS: RESP 16
--- NOTE | 2025-07-27 12:09 | P.PNPSI_ITS ---
Subjective Subjective Date of Service: 07/27/25 Reason For Visit: psychotic disorder Interim History: Seen in bed. Out in the milieu for meals. He is unchanged in presentation. He is calm and cooperative. Isolates in his room most of the time. Denies SI/HI/AVH. Review of Systems Review of Systems nothing of note Yes all other systems are reviewed and are negative and Unobtainable due to mental status Mental Status Exam Mental Status Exam Narrative: in bed. cooperative. speech nml rate, decr amount and loudness. thoughts linear and logical. mood euthymic. no complaints. No SI/SIB/HI/AVH expressed. Patient Appearance: Appropriate Patient Orientation: Person, Place, Time and Situation Level of Consciousness: Drowsy Patient Behavior: Guarded and Cooperative Mood Description: Calm Affect Description: Calm Patient Cognition Impaired: No Ability to Follow Directions: Good Speech Pattern: Clear Memory Description: Intact Diagnostics Vital Signs (24Hr): Vital Signs - 24 hr 07/26/25 20:00 07/27/25 08:00 Temperature 97.5 F Pulse Rate 94 Respiratory Rate 16 16 Blood Pressure 142/79 H Pulse Oximetry 100 Oxygen Delivery Method Room Air BMI result Body Mass Index 23.2 Labs 06/25/25 08:02 06/20/25 20:35 Medications Medications Current Medications Acetaminophen (Acetaminophen 325 Mg Tablet) 650 mg PO Q4H PRN PRN Reason: Pain, Mild (Pain Scale 1-3) Last Admin: 07/06/25 22:53 Dose: 650 mg Al Hydroxide/Mg Hydroxide (Magnesium Hydrox/Alum Hydrox 30 Ml Oral.Susp) 30 ml PO Q6H PRN PRN Reason: Heart burn Benzocaine (Benzocaine 20 % Oral Gel 14 Gm Tube) 1 appl MUCOUS MEM QID PRN; Protocol PRN Reason: Mouth Sore Pain Last Admin: 04/26/25 18:33 Dose: 1 appl Diazepam (Diazepam 10 Mg/2 Ml Cartridge) 10 mg IM BID PRN PRN Reason: refusal of lithium, mary floyd Last Admin: 04/11/25 09:56 Dose: 10 mg Glycopyrrolate (Glycopyrrolate 1 Mg Tablet) 1 mg PO BID [facility] Last Admin: 07/27/25 08:46 Dose: 1 mg Hydrocortisone (Hydrocortisone 1 % Cream 28.35 Gm Tube) 1 appl TOPICAL DAILY PRN; Protocol PRN Reason: rash Last Admin: 07/17/25 23:13 Dose: 1 appl [place] Carbonate ([place] Carbonate Er 300 Mg Tablet.Er) 600 mg PO DAILY [facility] Last Admin: 07/27/25 08:46 Dose: 600 mg [place] Carbonate ([place] Carbonate Er 450 Mg Tablet.Er) 900 mg PO DAILY@2300 [facility] Last Admin: 07/26/25 23:10 Dose: 900 mg Magnesium Hydroxide (Milk Of Magnesia 30 Ml Oral.Susp) 30 ml PO DAILY PRN PRN Reason: Constipation Methimazole (Methimazole 10 Mg Tablet) 10 mg PO DAILY [facility] Last Admin: 07/27/25 08:46 Dose: 10 mg Nicotine (Nicotine 21 Mg Patch.Td24) 21 mg TRANSDERMA DAILY PRN PRN Reason: nicotine cravings Last Admin: 04/12/25 17:06 Dose: 21 mg Nicotine Polacrilex (Nicotine Polacrilex Lozenge 2 Mg Lozenge) 2 mg BUCCAL Q1H PRN PRN Reason: Nicotine Cravings Last Admin: 04/30/25 08:49 Dose: 2 mg Patient Own Medication Excedrin 250/250/65mg 2 each PO Q8H PRN PRN Reason: Migraine Headache Last Admin: 07/16/25 22:13 Dose: 2 each Olanzapine (Olanzapine 10 Mg Vial) 10 mg IM DAILY PRN PRN Reason: if refuse Invega PO Paliperidone Palmitate (Paliperidone Palmitate 234 Mg/1.5 Ml Syringe) 234 mg IM Q30D [facility] Pseudoephedrine HCl (Pseudoephedrine Hcl 30 Mg Tablet) 30 mg PO Q6H PRN PRN Reason: Congestion Last Admin: 07/03/25 21:18 Dose: 30 mg Quetiapine Fumarate (Quetiapine Fumarate 100 Mg Tablet) 100 mg PO BEDTIME PRN PRN Reason: insomnia Last Admin: 07/26/25 23:10 Dose: 100 mg Quetiapine Fumarate (Quetiapine Fumarate 50 Mg Tablet) 50 mg PO BID PRN PRN Reason: agitation Last Admin: 07/23/25 22:28 Dose: 50 mg Sodium Chloride (Sodium Chloride 0.65 % Nasal 44 Ml Sprbtl) 1 spray NOSTRIL-B Q4H PRN PRN Reason: Congestion Last Admin: 07/03/25 23:03 Dose: 1 spray Allergies Allergies Allergy/AdvReac Type Severity Reaction Status Date / Time No Known Allergies Allergy Verified 03/26/25 14:24 Assessment & Plan Assessment & Plan (1) Graves disease: Status: Acute Code(s): E05.00 - Thyrotoxicosis with diffuse goiter without thyrotoxic crisis or storm Assessment and Plan: Hyperthyroidism/Graves disease. He will need follow up with endocrinology as an outpatient He will also need a primary care doctor referral as an outpatient Discussed with Dr. Bejarano, patient will need free T4 weekly Decrease Methimazole to 15 mgs daily for three days and then 10 mgs daily- discussed with patient he is aware of plan and rationale. TSH and free T4 every 4 weeks. No need to draw thyroid stimulation immunology or TSH receptor AB (2) Dental abscess: Status: Acute Code(s): K04.7 - Periapical abscess without sinus Assessment and Plan: Carious tooth/dental infection Recently treated with PEN VK 500 mg q.6 hours for 7 days Patient will need follow up with dentist on discharge for tooth extraction Motrin helping pain. (3) Becca: Status: Acute Code(s): F30.9 - Manic episode, unspecified Plan 03/26: offer lithium and seroquel for becca. continue methimazole and beta joanne for hyperthyroidism as started at [facility]. trend TFTs. 12b. 03/27: taking methimazole and beta joanne. refused HS meds last night, took morning meds today. continue to encourage medication compliance. 03/28: intermittently taking meds. wants all meds in morning. pressured, manic, paranoid delusions. encouraged to take lithium but states he will not. all meds ordered for morning. 03/29: Keeping to self. no groups. observed laying in bed listening to music on unit headphones. pleasant. Pt reports feeling good today and sleeping well. declined lithium and zyprexa. denies SI/HI/VH/AH. continue current tx plan. 03/30:Irritable. upset he was unable to use his personal hygiene products. Per nursing, pt threatened staff and squeezed tooth paste throughout unit hallway to show his frustration. Pt was able to calm down after speaking with security. declined medications. 03/31: Keeping to self. laying in bed listening to music. refused medications. calm today. Patient reports feeling great ; pt stated, nothing is wrong with me. I'm waiting so I can leave tomorrow. I'm hoping for the best . denies SI/HI/VH/AH. per nursing, slept 6 hours. Continue current tx plan. 04/01: variably calm on the unit versus highly agitated. paranoid delusions, irritability, lability continue. seems to believe MD has met him prior to the present hospitalization and is stalking him. believes brother behind conspiracy to have him psychiatrically hospitalized. has been refusing all medications, including for hyperthyroidism. informed he would be filed on. filed. continue to offer medications. 04/02: continues agitated, belittling, verbally aggressive, refusing all medications including for hyperthyroidism. continue to offer medication. 04/03: paranoid there is a conspiracy to hospitalize him. threatening to stick a stick in staff once he is released by [employer]. insists his hyperthyroidism was cured at [facility]. asserts there is NOTHING wrong with him. continue to offer medication. 04/04: irritable, rejecting. verbally abuses MD and sends him away: see you on monday [in court]. continue to offer medication for thyroid condition and mental illness. 04/05 continue tx. suspicious and guarded, accusatory, verbal threats to hurt staff and peers 04/06 intrusive, posturing towards staff and peer who he thinks is not real and is an impostor, continues to make verbal threats to harm him but thinks that because he is not real he may not experience any pain. 04/07: threatening statements and behaviors of yesterday noted. pt sleeping this morning, dismissive of MD. 04/08: asleep days. committed and meds ordered by court. 04/09: on being informed of court order and MD insisting on meds, pt escalated to hurling food item in container against wall at high speed and saying he wished he could do the same to MD's head. pt eventually took court ordered meds PO. sensodyne and excedrin not available in pharmacy (pt requesting them). 04/10: continue tx. Pt accepting medication today. 04/11: Keeping to self. Lying in bed most of morning. Declined to meet with T/W. Pt stated, I'm fine. I don't need anything . Listening to headphones in room. Declined court ordered PO medications; received IM medications. Refused vital signs.continue tx plan. 04/12: got IMs yesterday, took PO this morning. sleepy, no concerns or complaints. 04/13: taking PO meds again. slept 7 hours. sleepy again mid morning refusing interview. continue current mgmt. 04/14: sleeping, rousable. denies being sedated or tired, says he's just bored. no questions or complaints. informed of need to check labs. check lithium level and thyroid labs tonight. 04/15: refusing labs. delusional re his brother harming him. verbally abusive toward MD. spat in floor. happy with improvement in proptosis. 04/16: Lying in bed. Calm. cooperative. guarded. Pt reports feeling tired this morning d/t poor sleep last night. Pt stated, I don't need anything. I didn't sleep well so I'm trying to catch up . denies any issues at this time. denies SI/HI/VH/AH. Continue current tx plan. 04/17: more calm today, less explosive. continue current mgmt. 04/18: continues more calm. tolerating moments of frustration without verbally attacking MD. slept only 2 hours overnight, however. continue current mgmt. 04/19 continues to push boundaries and limits with staff mike around cell phone- 04/20 - aggressive with staff and unpredictable- threw water pitcher at staff behind desk/-when seen by provider passive in bed-denying all compaints/sys- no insight 04/21: appears as per last week. more difficult behaviors around cell phone use, did throw pitcher of water at RN monday over phone use and was restrained. continue current mgmt. 04/22: continues to have conflict around cell phone use. consolidate zyprexa at HS to decrease daytime sedation. 1:1 allegra shift until peer he is accusing of not being a real patient and appears to be targeting discharges tomorrow. 04/23: lithium 0.6 on 600 BID. sleeping better, remains delusional (telling SW who is marginally younger than him that she could be his daughter). just changed zyprexa dosing as of last night. continue current regimen and observe for continued stabilization. T/C slight increase in lithium dosing. 04/24: Laying in bed. guarded. calm. did not want to get out of bed to meet with T/W. Pt reports feeling great today but declined to go into detail. listening to music on unit headphones. Pt stated, I'm fine. I don't need anything . denies any issues at this time. denies SI/HI/VH/AH. Continue current tx plan. 04/25: Laying in bed. keeping to self. calm. paranoid. Discussed incident that occurred with staff last evening. Pt stated, the counselor made up a lie yesterday. I said she looks like my ex-girlfriend. I know they are related. They want to make up a lie to irritate me. They are trying to talk to me so they can use recording devices and make me look some kind of way . listening to music on unit headphones. denies SI/HI/VH/AH. Continue current tx plan. 04/26: Continue current regimen and plans. Increase Zyprexa 20 mg q.h.s. fresh air break withheld 04/27: Continue current regimen and plans 04/28: somewhat less irritable and agitated than last week. however, over the weekend was claiming he was the father of a footballer on TV and also that a staff member is a twin of his ex-GF (and he pushed staff member). TFTs improving. continue current mgmt. 04/29: no change in presentation. continue current mgmt. 04/30: no irritable edge today. calm, pleasant. engaging in small talk. reality testing not pressed. continue current mgmt for now. 05/01: no change in presentation. continue current mgmt. 05/02: BPs coming down, DC beta joanne as pt has been refusing anyway. remains not antagonistic toward MD. using phone appropriately. continue current mgmt otherwise. 05/03 continue 05/04: remains delusional, irritable/labile when delusional system confronted. declines to sign TOMMY for [facility]. continue current mgmt. 05/06: declining to meet with MD, but does meet with medical student. remains upset about yesterday's confrontation re his delusional system. 05/07: Active on unit. keeping to self. pacing unit hallway while listening to unit headphones. medication compliant. patient reports feeling good ; pt stated, I'm just waiting to leave here. I want to return to my life and do things like go grocery shopping . denies SI/HI/VH/AH. Continue current tx plan. 05/08: stable presentation, delusions not being brought to the surface daily. remains affectively improved from admission. continue current mgmt. 05/09: calm, pleasant. no questions or complaints. continue current mgmt. 05/10: no change in presentation. due to lack of improvement in dental infection Sx, DC PCN and start augmentin. 05/11: no change in presentation. continue current mgmt. 05/12: as for yesterday. dental pain improving a bit. 05/13: expressed to medical student that his brother poisoned him, causing his thyroid disease. no change in presentation. continue current mgmt. 05/14: Pacing unit hallway. keeping to self. patient reports feeling good today; denies any issues at this time. denies SI/HI/VH/AH. per nursing, slept 5 hours. Continue current tx plan. 05/15: slept 6 hours. otherwise isolative, difficult to engage. continue current mgmt. 05/16: slept 7 hours. as for yesterday otherwise. 05/17/25: Slept well, no issue with appetite, skinny and pretty tall. Compliant with medication. No side effects Calm and pleasant upon approach. Some what paranoid. Tangential, however denies other safety concerns. Questions if he is discharging soon. He is on antibiotic for 7 days for mouth pain/tooth pain. We will finish the 7 course up in antibiotic after tonight dose. Then discontinue. 05/18/25: Slept for 5 hours plus hours this morning. In bed most of the shift, no behavior issues. Denies other safety concerns. 05/19: in bed days, up eves. no change in presentation. continue current mgmt. 05/20: no change in presentation. check labs. 05/21: lithium low, TFTs mixed and not all back. increase lithium from 600 BID to 600/900. trend BUN/Cr, with slight elevation. otherwise continue current mgmt. 05/22: no change in presentation. continue current mgmt. 05/23: does not deny someone stole his sperm and impregnated his landlord's child with it. irritable. c/o dental pain, antibx restarted. otherwise continue current mgmt. 05/14: no change in mgt 05/25: more isolative today; no change in mgt 05/26: decreases in methimazole noted. continue psych regimen as is. pt refused to interact with MD today. 05/27: i'm sleeping. no change in presentation. labs tonight. 05/28: no change in behavior. lithium 0.66, BUN stable. continue current mgmt. 05/29: irritable. continue current mgmt. 05/30: no longer in single room. still not engaging, sleeping days. continue current mgmt. 05/31:laying in bed. declined to meet with T/W. pt stated, I want to sleep. I didn't sleep enough . Pt encouraged to reach out to staff if he needs anything. Continue current tx plan. 06/01: Similar to yesterday. laying in bed. Irritable. declined to meet with T/W and pulled bed sheets over head. pt stated, I don't want to talk. I want to sleep . difficult to engage. Continue current tx plan. 06/02: Similar to yesterday. laying in bed. Irritable. declined to meet with T/W. Observed getting drink from kitchen; T/W approached pt and asked if they could speak. patient declined to acknowledge T/W and walked past. Continue current tx plan. 06/03: no change in behavior. continue tx plan. 06/04/25: Passive engaged in the assessment, in bed mostly sleeping this morning which could be interfere with his nighttime. Cover body under the blanket Slept for 4-5 hours last night. Was medication compliant, attended no groups, isolative to self in room. No SI/SIB/HI/AVH expressed. 06/05: continue tx plan. 06/06: reports feeling fine ; continues guarded. difficult to engage. declining to meet with T/W. continue tx plan. 06/07/25: Slept for 4 hours at night, but has been sleeping most of the day yesterday as well. Spent majority of the shift in bed, was medication compliant. Passive engaged in the conversation. He said he will try to change the sleeping pattern so that he can be awake more during the daytime. Appear to be sedated in the morning. No safety behavior. 06/08/25: Slept for 3-4 hours last night, compliant with medications. Denies side effects, denies other safety concerns. Continued to encourage patient to up and down more than on the unit he spent most of the day sleeping. He is pleasant upon approach. No other behavior issues. Denied voices/hallucinations. Suicide thoughts or homicidal thoughts. 06/09: sleeping, minimally rousable. denies problems. continue current mgmt. 06/10: sleeping all day, up most of the night. minimally rousable. denies problems. continue current mgmt. per JAMAICA Arrington: Jean said when he leaves he can return to [facility]. he was living with a lady there and can go back. He plans to get a job to pay off his debt. He said he owes money because they sent him back here due to losing his passport and he owes them money for the temporary emergency passport and the flight back to the . so his main focus is to get a job. he said he will try things here first and if it doesn't work out he plans to return to [place]. 06/11/25: Passively engaged in conversation while in bed sleeping/resting. Able to answer question appropriately, but seems to be minimized. Denies SI/SIB/HI/AVH. He slept 5 hours last night, spent most of the day in bed sleeping. Attempted to no groups, observed out to the afternoon in the subramanian near the nurse station. No change in presentation. Encourage groups,up and engaged in groups. 06/12: not engaging. no complaints or questions re med changes. cross-taper zyprexa in favor of invega, give MONTERO invega. tonight, decrease zyprexa to 15 mg and start invega 3 mg. otherwise continue current mgmt. 06/13: continues avoidant and disengaged. denies side effects from med change last night. informed cross-titration will advance tonight. decrease zyprexa to 10 mg tonight, increase paliperidone to 6 mg. plan to continue by 5 mg zyprexa and 3 mg paliperidone increments every several days as tolerated until zyprexa DCed and paliperidone at 12 mg QHS. once it is established pt is tolerating PO Paliperidone, invega sustenna to be administered. 06/14: Continue current regimen and plans 06/15: Continue current plans and regimen 06/16: irritable re neuroleptic change. denies side effects or problems with it, however. minimally engageable. increase invega to 9 QHS and decrfease zyprexa to 5 QHS. 06/17/25: Continued to be irritable regarding medication change/titration. However engaged in conversation, hyper verbal, paranoid, reports medication slow his thoughts down and he does not not like it. Poor insight and poor judgment. He thinks he only need lithium, not other medications. Remind patient to continue doing the sleep pattern changing. However his in bed mostly this morning. Slept for 4-5 hours last night. 06/18/25: Slept for 5 hours last night as he continues sleeping during daytime. Compliant with meds, did not c/o side effects.Passingly engaging in assessment. Denies safety concerns. Tolerate the tritation well. Will increase Inveag up to max of 12 tomorrow and Discontinue Olanzepine at HS. Continue to encourage up and out on day so he can sleep better at HS. 06/19/25: Patient slept for 5.5 hours last night, was medication compliant, mostly in his room yesterday but seen more often in the evening. Patient is awake in his room, listen to music, his morning tray was taken away and clean the area. He is very pleasant to talk to today, reports he feels good, denies side effects from medications, denies any safety concerns. Denies feeling sedation, denies anxiety/depression. He is receptive with the plan of medication over the weekends and next week, happy to hear about the medication plan. He also agree with the MONTERO Invega Sustenna on Monday. Encourage him to go out and attended to groups, he said that he will. Reported that he was out for groups a couple of times last week. Discontinue Haldol p.r.n.. Discontinue scheduled Zyprexa 5 mg at bedtime. Only on Zyprexa at g IM daily p.r.n. as backup orders if refused Invega. Invega 12 mg at bedtime. Plan to monitor over the weekends and will give long- acting injection on Monday if tolerate with the p.o. well Reduce Seroquel 200 mg p.r.n. at bedtime to 100 p.r.n. at bedtime for insomnia. Seroquel 50 mg b.i.d. p.r.n. for agitation. Discontinue Motrin. Patient on lithium. Labs were for MondayJune 20: CMP, TSH with free T4. 06/20/25: In bed most of the day, was compliant with medication, however refused labs work. Re- scheduled for Monday. Continue with Invega 12 mg at bedtime. We will reassess and offer long-acting injection on Monday. Continue to encourage patient to get up and go to some groups. No safety concerns expressed. Minimal peer and staff interaction. 06/21: no change in presentation. start MONTERO monday. no s/e from invega. otherwise continue current mgmt. 06/22: stable. continue current mgmt. 06/23/25: More awake and alert. Review with patient regarding policy for his phone use BID 30min each time, patient is educated on compliant with policy. He asks for more 5-10 min extra headphone use at night on the weekends after 2300. Once again, redirected for unit rules. He agrees with MONTERO which is scheduled today. Discontinue Invega PO Invega Sustenna 234mg IM once. Will monitor for possible side effects and sedation. Will offer 156mg after 1 week. If mentaly stable with 156mg, will maintain at this dose, if not will offer 234mg Monthly. 06/24/25: Slept for 5 hours last night, but also went to bed around 7 tonight p.m. last night per his report. He also attended to groups in the afternoon yesterday. Compliant with medications. No side effects from Invega Sustenna. He is engaged in full conversation today why he is in bed, denies safety concerns. Observe he is on the unit, social with peers and staff in longer period of time. Appeared to be happy. He plans to take shower today. Reported that he was up early but he does not feel hungry in the morning. He is making progress, not too sedated during daytime since switching his medication. Appears to do well so far with Invega Sustenna. 06/25/25: Patient slept for 4 hours last night, however he reported was napping in the afternoon for couple hours which affect his sleeping pattern at night. Educate patient to not napping late in the evening. He is receptive. Compliant with medications, no side effects. He reports his did not shower yesterday but he will today. He is awake in his room not sleeping, engage in full conversation, no delusional or paranoid statements make. He is visible at times. Continued to improve in mood, engaging in other activities on the unit. Denies other safety concerns. Denies hallucinations. No irritability mood, not sedated during day time compared to when he was taking olanzapine. We will schedule Invega Sustenna 156 next Monday. Work with social work professor to see where he will return to. He probably needs [facility] to manage medication. 06/26/25: He slept for 5 hours, compliant with medications. Denies side effects. He self-reported that he went to bed last night and was able to fall asleep by 01:00 and able to stay asleep whole night. Denies safety concerns. I spoke with him in length today regarding aftercare. He thinks he will go to the hospital in [place] to ask them regarding his heart condition. He thinks people was lying to get him to the hospital as he does not have mental health illnesses. He believes that he has been exactly the same he was seen he was a little, and at he able to remember everything in the past. He also reports that he used to use [facility] in [place]. At he does not want [facility] application. I explained to him that in order to be a candidate patient have to be a safe that he has mental health issues, so people can submit the application, and from the [facility] worker will contact him to do assessment if he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
[2025-07-27 20:00] VITALS: BP 127/66; PULSE 81; RESP 17; TEMP 37.5; O2SAT 100
--- NOTE | 2025-07-28 11:51 | HO.PSYCHPN ---
Subjective Subjective Date of Service: 07/28/25 Reason For Visit: psychotic disorder Interim History: no change in presentation. would like to wait until family back from vacation in [place] prior to discharging. per staff, taking meds, sleeping a lot. Mental Status Exam Mental Status Exam Narrative: in bed. cooperative. speech nml rate, decr amount and loudness. thoughts linear and logical. mood euthymic. no complaints. No SI/SIB/HI/AVH expressed. Diagnostics Vital Signs (24Hr): Vital Signs - 24 hr 07/27/25 20:00 Temperature 99.5 F Pulse Rate 81 Respiratory Rate 17 Blood Pressure 127/66 Pulse Oximetry 100 Oxygen Delivery Method Room Air BMI result Body Mass Index 23.2 Labs 06/25/25 08:02 06/20/25 20:35 Medications Medications Current Medications Acetaminophen (Acetaminophen 325 Mg Tablet) 650 mg PO Q4H PRN PRN Reason: Pain, Mild (Pain Scale 1-3) Last Admin: 07/06/25 22:53 Dose: 650 mg Al Hydroxide/Mg Hydroxide (Magnesium Hydrox/Alum Hydrox 30 Ml Oral.Susp) 30 ml PO Q6H PRN PRN Reason: Heart burn Benzocaine (Benzocaine 20 % Oral Gel 14 Gm Tube) 1 appl MUCOUS MEM QID PRN; Protocol PRN Reason: Mouth Sore Pain Last Admin: 04/26/25 18:33 Dose: 1 appl Diazepam (Diazepam 10 Mg/2 Ml Cartridge) 10 mg IM BID PRN PRN Reason: refusal of lithium, per [place] Last Admin: 04/11/25 09:56 Dose: 10 mg Glycopyrrolate (Glycopyrrolate 1 Mg Tablet) 1 mg PO BID [facility] Last Admin: 07/28/25 09:59 Dose: 1 mg Hydrocortisone (Hydrocortisone 1 % Cream 28.35 Gm Tube) 1 appl TOPICAL DAILY PRN; Protocol PRN Reason: rash Last Admin: 07/17/25 23:13 Dose: 1 appl [place] Carbonate ([place] Carbonate Er 300 Mg Tablet.Er) 600 mg PO DAILY [facility] Last Admin: 07/28/25 09:59 Dose: 600 mg [place] Carbonate ([place] Carbonate Er 450 Mg Tablet.Er) 900 mg PO DAILY@2300 [facility] Last Admin: 07/27/25 22:34 Dose: 900 mg Magnesium Hydroxide (Milk Of Magnesia 30 Ml Oral.Susp) 30 ml PO DAILY PRN PRN Reason: Constipation Methimazole (Methimazole 10 Mg Tablet) 10 mg PO DAILY KRISTAL Last Admin: 07/28/25 09:59 Dose: 10 mg Nicotine (Nicotine 21 Mg Patch.Td24) 21 mg TRANSDERMA DAILY PRN PRN Reason: nicotine cravings Last Admin: 04/12/25 17:06 Dose: 21 mg Nicotine Polacrilex (Nicotine Polacrilex Lozenge 2 Mg Lozenge) 2 mg BUCCAL Q1H PRN PRN Reason: Nicotine Cravings Last Admin: 04/30/25 08:49 Dose: 2 mg Patient Own Medication Excedrin 250/250/65mg 2 each PO Q8H PRN PRN Reason: Migraine Headache Last Admin: 07/16/25 22:13 Dose: 2 each Olanzapine (Olanzapine 10 Mg Vial) 10 mg IM DAILY PRN PRN Reason: if refuse Invega PO Paliperidone Palmitate (Paliperidone Palmitate 234 Mg/1.5 Ml Syringe) 234 mg IM Q30D KRISTAL Pseudoephedrine HCl (Pseudoephedrine Hcl 30 Mg Tablet) 30 mg PO Q6H PRN PRN Reason: Congestion Last Admin: 07/03/25 21:18 Dose: 30 mg Quetiapine Fumarate (Quetiapine Fumarate 100 Mg Tablet) 100 mg PO BEDTIME PRN PRN Reason: insomnia Last Admin: 07/27/25 22:34 Dose: 100 mg Quetiapine Fumarate (Quetiapine Fumarate 50 Mg Tablet) 50 mg PO BID PRN PRN Reason: agitation Last Admin: 07/23/25 22:28 Dose: 50 mg Sodium Chloride (Sodium Chloride 0.65 % Nasal 44 Ml Sprbtl) 1 spray NOSTRIL-B Q4H PRN PRN Reason: Congestion Last Admin: 07/03/25 23:03 Dose: 1 spray Allergies Allergies Allergy/AdvReac Type Severity Reaction Status Date / Time No Known Allergies Allergy Verified 03/26/25 14:24 Assessment & Plan Assessment & Plan (1) Graves disease: Status: Acute Code(s): E05.00 - Thyrotoxicosis with diffuse goiter without thyrotoxic crisis or storm Assessment and Plan: Hyperthyroidism/Graves disease. He will need follow up with endocrinology as an outpatient He will also need a primary care doctor referral as an outpatient Discussed with Dr. Bejarano, patient will need free T4 weekly Decrease Methimazole to 15 mgs daily for three days and then 10 mgs daily- discussed with patient he is aware of plan and rationale. TSH and free T4 every 4 weeks. No need to draw thyroid stimulation immunology or TSH receptor AB (2) Dental abscess: Status: Acute Code(s): K04.7 - Periapical abscess without sinus Assessment and Plan: Carious tooth/dental infection Recently treated with PEN VK 500 mg q.6 hours for 7 days Patient will need follow up with dentist on discharge for tooth extraction Motrin helping pain. (3) Becca: Status: Acute Code(s): F30.9 - Manic episode, unspecified Plan 03/26: offer lithium and seroquel for becca. continue methimazole and beta joanne for hyperthyroidism as [place] [facility] trend TFTs. 12b. 03/27: taking methimazole and beta joanne. refused HS meds last night, took morning meds today. continue to encourage medication compliance. 03/28: intermittently taking meds. wants all meds in morning. pressured, manic, paranoid delusions. encouraged to take lithium but states he will not. all meds ordered for morning. 03/29: Keeping to self. no groups. observed laying in bed listening to music on unit headphones. pleasant. Pt reports feeling good today and sleeping well. declined lithium and zyprexa. denies SI/HI/VH/AH. continue current tx plan. 03/30:Irritable. upset he was unable to use his personal hygiene products. Per nursing, pt threatened staff and squeezed tooth paste throughout unit hallway to show his frustration. Pt was able to calm down after speaking with security. declined medications. 03/31: Keeping to self. laying in bed listening to music. refused medications. calm today. Patient reports feeling great ; pt stated, nothing is wrong with me. I'm waiting so I can leave tomorrow. I'm hoping for the best . denies SI/HI/VH/AH. per nursing, slept 6 hours. Continue current tx plan. 04/01: variably calm on the unit versus highly agitated. paranoid delusions, irritability, lability continue. seems to believe MD has met him prior to the present hospitalization and is stalking him. believes brother behind conspiracy to have him psychiatrically hospitalized. has been refusing all medications, including for hyperthyroidism. informed he would be filed on. filed. continue to offer medications. 04/02: continues agitated, belittling, verbally aggressive, refusing all medications including for hyperthyroidism. continue to offer medication. 04/03: paranoid there is a conspiracy to hospitalize him. threatening to stick a stick in staff once he is released by digital production operator. insists his hyperthyroidism was cured at [facility]. asserts there is NOTHING wrong with him. continue to offer medication. 04/04: irritable, rejecting. verbally abuses MD and sends him away: see you on monday [in court]. continue to offer medication for thyroid condition and mental illness. 04/05 continue tx. suspicious and guarded, accusatory, verbal threats to hurt staff and peers 04/06 intrusive, posturing towards staff and peer who he thinks is not real and is an impostor, continues to make verbal threats to harm him but thinks that because he is not real he may not experience any pain. 04/07: threatening statements and behaviors of yesterday noted. pt sleeping this morning, dismissive of MD. 04/08: asleep days. committed and meds ordered by court. 04/09: on being informed of court order and MD insisting on meds, pt escalated to hurling food item in container against wall at high speed and saying he wished he could do the same to MD's head. pt eventually took court ordered meds PO. sensodyne and excedrin not available in pharmacy (pt requesting them). 04/10: continue tx. Pt accepting medication today. 04/11: Keeping to self. Lying in bed most of morning. Declined to meet with T/W. Pt stated, I'm fine. I don't need anything . Listening to headphones in room. Declined court ordered PO medications; received IM medications. Refused vital signs.continue tx plan. 04/12: got IMs yesterday, took PO this morning. sleepy, no concerns or complaints. 04/13: taking PO meds again. slept 7 hours. sleepy again mid morning refusing interview. continue current mgmt. 04/14: sleeping, rousable. denies being sedated or tired, says he's just bored. no questions or complaints. informed of need to check labs. check lithium level and thyroid labs tonight. 04/15: refusing labs. delusional re his brother harming him. verbally abusive toward MD. spat in floor. happy with improvement in proptosis. 04/16: Lying in bed. Calm. cooperative. guarded. Pt reports feeling tired this morning d/t poor sleep last night. Pt stated, I don't need anything. I didn't sleep well so I'm trying to catch up . denies any issues at this time. denies SI/HI/VH/AH. Continue current tx plan. 04/17: more calm today, less explosive. continue current mgmt. 04/18: continues more calm. tolerating moments of frustration without verbally attacking MD. slept only 2 hours overnight, however. continue current mgmt. 04/19 continues to push boundaries and limits with staff mike around cell phone- 04/20 - aggressive with staff and unpredictable- threw water pitcher at staff behind desk/-when seen by provider passive in bed-denying all compaints/sys- no insight 04/21: appears as per last week. more difficult behaviors around cell phone use, did throw pitcher of water at RN monday over phone use and was restrained. continue current mgmt. 04/22: continues to have conflict around cell phone use. consolidate zyprexa at HS to decrease daytime sedation. 1:1 allegra shift until peer he is accusing of not being a real patient and appears to be targeting discharges tomorrow. 04/23: lithium 0.6 on 600 BID. sleeping better, remains delusional (telling SW who is marginally younger than him that she could be his daughter). just changed zyprexa dosing as of last night. continue current regimen and observe for continued stabilization. T/C slight increase in lithium dosing. 04/24: Laying in bed. guarded. calm. did not want to get out of bed to meet with T/W. Pt reports feeling great today but declined to go into detail. listening to music on unit headphones. Pt stated, I'm fine. I don't need anything . denies any issues at this time. denies SI/HI/VH/AH. Continue current tx plan. 04/25: Laying in bed. keeping to self. calm. paranoid. Discussed incident that occurred with staff last evening. Pt stated, the counselor made up a lie yesterday. I said she looks like my ex-girlfriend. I know they are related. They want to make up a lie to irritate me. They are trying to talk to me so they can use recording devices and make me look some kind of way . listening to music on unit headphones. denies SI/HI/VH/AH. Continue current tx plan. 04/26: Continue current regimen and plans. Increase Zyprexa 20 mg q.h.s. fresh air break withheld 04/27: Continue current regimen and plans 04/28: somewhat less irritable and agitated than last week. however, over the weekend was claiming he was the father of a footballer on TV and also that a staff member is a twin of his ex-GF (and he pushed staff member). TFTs improving. continue current mgmt. 04/29: no change in presentation. continue current mgmt. 04/30: no irritable edge today. calm, pleasant. engaging in small talk. reality testing not pressed. continue current mgmt for now. 05/01: no change in presentation. continue current mgmt. 05/02: BPs coming down, DC beta joanne as pt has been refusing anyway. remains not antagonistic toward MD. using phone appropriately. continue current mgmt otherwise. 05/03 continue 05/04: remains delusional, irritable/labile when delusional system confronted. declines to sign TOMMY for [facility] records. continue current mgmt. 05/06: declining to meet with MD, but does meet with medical student. remains upset about yesterday's confrontation re his delusional system. 05/07: Active on unit. keeping to self. pacing unit hallway while listening to unit headphones. medication compliant. patient reports feeling good ; pt stated, I'm just waiting to leave here. I want to return to my life and do things like go grocery shopping . denies SI/HI/VH/AH. Continue current tx plan. 05/08: stable presentation, delusions not being brought to the surface daily. remains affectively improved from admission. continue current mgmt. 05/09: calm, pleasant. no questions or complaints. continue current mgmt. 05/10: no change in presentation. due to lack of improvement in dental infection Sx, DC PCN and start augmentin. 05/11: no change in presentation. continue current mgmt. 05/12: as for yesterday. dental pain improving a bit. 05/13: expressed to medical student that his brother poisoned him, causing his thyroid disease. no change in presentation. continue current mgmt. 05/14: Pacing unit hallway. keeping to self. patient reports feeling good today; denies any issues at this time. denies SI/HI/VH/AH. per nursing, slept 5 hours. Continue current tx plan. 05/15: slept 6 hours. otherwise isolative, difficult to engage. continue current mgmt. 05/16: slept 7 hours. as for yesterday otherwise. 05/17/25: Slept well, no issue with appetite, skinny and pretty tall. Compliant with medication. No side effects Calm and pleasant upon approach. Some what paranoid. Tangential, however denies other safety concerns. Questions if he is discharging soon. He is on antibiotic for 7 days for mouth pain/tooth pain. We will finish the 7 course up in antibiotic after tonight dose. Then discontinue. 05/18/25: Slept for 5 hours plus hours this morning. In bed most of the shift, no behavior issues. Denies other safety concerns. 05/19: in bed days, up eves. no change in presentation. continue current mgmt. 05/20: no change in presentation. check labs. 05/21: lithium low, TFTs mixed and not all back. increase lithium from 600 BID to 600/900. trend BUN/Cr, with slight elevation. otherwise continue current mgmt. 05/22: no change in presentation. continue current mgmt. 05/23: does not deny someone stole his sperm and impregnated his landlord's child with it. irritable. c/o dental pain, antibx restarted. otherwise continue current mgmt. 05/14: no change in mgt 05/25: more isolative today; no change in mgt 05/26: decreases in methimazole noted. continue psych regimen as is. pt refused to interact with MD today. 05/27: i'm sleeping. no change in presentation. labs tonight. 05/28: no change in behavior. lithium 0.66, BUN stable. continue current mgmt. 05/29: irritable. continue current mgmt. 05/30: no longer in single room. still not engaging, sleeping days. continue current mgmt. 05/31:laying in bed. declined to meet with T/W. pt stated, I want to sleep. I didn't sleep enough . Pt encouraged to reach out to staff if he needs anything. Continue current tx plan. 06/01: Similar to yesterday. laying in bed. Irritable. declined to meet with T/W and pulled bed sheets over head. pt stated, I don't want to talk. I want to sleep . difficult to engage. Continue current tx plan. 06/02: Similar to yesterday. laying in bed. Irritable. declined to meet with T/W. Observed getting drink from kitchen; T/W approached pt and asked if they could speak. patient declined to acknowledge T/W and walked past. Continue current tx plan. 06/03: no change in behavior. continue tx plan. 06/04/25: Passive engaged in the assessment, in bed mostly sleeping this morning which could be interfere with his nighttime. Cover body under the blanket Slept for 4-5 hours last night. Was medication compliant, attended no groups, isolative to self in room. No SI/SIB/HI/AVH expressed. 06/05: continue tx plan. 06/06: reports feeling fine ; continues guarded. difficult to engage. declining to meet with T/W. continue tx plan. 06/07/25: Slept for 4 hours at night, but has been sleeping most of the day yesterday as well. Spent majority of the shift in bed, was medication compliant. Passive engaged in the conversation. He said he will try to change the sleeping pattern so that he can be awake more during the daytime. Appear to be sedated in the morning. No safety behavior. 06/08/25: Slept for 3-4 hours last night, compliant with medications. Denies side effects, denies other safety concerns. Continued to encourage patient to up and down more than on the unit he spent most of the day sleeping. He is pleasant upon approach. No other behavior issues. Denied voices/hallucinations. Suicide thoughts or homicidal thoughts. 06/09: sleeping, minimally rousable. denies problems. continue current mgmt. 06/10: sleeping all day, up most of the night. minimally rousable. denies problems. continue current mgmt. per JAMAICA Arrington: Jean said when he leaves he can return to [facility]. he was living with a lady there and can go back. He plans to get a job to pay off his debt. He said he owes money because they sent him back here due to losing his passport and he owes them money for the temporary emergency passport and the flight back to the . so his main focus is to get a job. he said he will try things here first and if it doesn't work out he plans to return to [place]. 06/11/25: Passively engaged in conversation while in bed sleeping/resting. Able to answer question appropriately, but seems to be minimized. Denies SI/SIB/HI/AVH. He slept 5 hours last night, spent most of the day in bed sleeping. Attempted to no groups, observed out to the afternoon in the subramanian near the nurse station. No change in presentation. Encourage groups,up and engaged in groups. 06/12: not engaging. no complaints or questions re med changes. cross-taper zyprexa in favor of invega, give MONTEOR invega. tonight, decrease zyprexa to 15 mg and start invega 3 mg. otherwise continue current mgmt. 06/13: continues avoidant and disengaged. denies side effects from med change last night. informed cross-titration will advance tonight. decrease zyprexa to 10 mg tonight, increase paliperidone to 6 mg. plan to continue by 5 mg zyprexa and 3 mg paliperidone increments every several days as tolerated until zyprexa DCed and paliperidone at 12 mg QHS. once it is established pt is tolerating PO Paliperidone, invega sustenna to be administered. 06/14: Continue current regimen and plans 06/15: Continue current plans and regimen 06/16: irritable re neuroleptic change. denies side effects or problems with it, however. minimally engageable. increase invega to 9 QHS and decrfease zyprexa to 5 QHS. 06/17/25: Continued to be irritable regarding medication change/titration. However engaged in conversation, hyper verbal, paranoid, reports medication slow his thoughts down and he does not not like it. Poor insight and poor judgment. He thinks he only need lithium, not other medications. Remind patient to continue doing the sleep pattern changing. However his in bed mostly this morning. Slept for 4-5 hours last night. 06/18/25: Slept for 5 hours last night as he continues sleeping during daytime. Compliant with meds, did not c/o side effects.Passingly engaging in assessment. Denies safety concerns. Tolerate the tritation well. Will increase Inveag up to max of 12 tomorrow and Discontinue Olanzepine at HS. Continue to encourage up and out on day so he can sleep better at HS. 06/19/25: Patient slept for 5.5 hours last night, was medication compliant, mostly in his room yesterday but seen more often in the evening. Patient is awake in his room, listen to music, his morning tray was taken away and clean the area. He is very pleasant to talk to today, reports he feels good, denies side effects from medications, denies any safety concerns. Denies feeling sedation, denies anxiety/depression. He is receptive with the plan of medication over the weekends and next week, happy to hear about the medication plan. He also agree with the MONTERO Invega Sustenna on Monday. Encourage him to go out and attended to groups, he said that he will. Reported that he was out for groups a couple of times last week. Discontinue Haldol p.r.n.. Discontinue scheduled Zyprexa 5 mg at bedtime. Only on 10 Zyprexa at g IM daily p.r.n. as backup orders if refused Invega. Invega 12 mg at bedtime. Plan to monitor over the weekends and will give long-acting injection on Monday if tolerate with the p.o. well Reduce Seroquel 200 mg p.r.n. at bedtime to 100 p.r.n. at bedtime for insomnia. Seroquel 50 mg b.i.d. p.r.n. for agitation. Discontinue Motrin. Patient on lithium. Labs were for MondayJune 20: CMP, TSH with free T4. 06/20/25: In bed most of the day, was compliant with medication, however refused labs work. Re- scheduled for Monday. Continue with Invega 12 mg at bedtime. We will reassess and offer long-acting injection on Monday. Continue to encourage patient to get up and go to some groups. No safety concerns expressed. Minimal peer and staff interaction. 06/21: no change in presentation. start MONTERO monday. no s/e from invega. otherwise continue current mgmt. 06/22: stable. continue current mgmt. 06/23/25: More awake and alert. Review with patient regarding policy for his phone use BID 30min each time, patient is educated on compliant with policy. He asks for more 5-10 min extra headphone use at night on the weekends after 2300. Once again, redirected for unit rules. He agrees with MONTERO which is scheduled today. Discontinue Invega PO Invega Sustenna 234mg IM once. Will monitor for possible side effects and sedation. Will offer 156mg after 1 week. If mentaly stable with 156mg, will maintain at this dose, if not will offer 234mg Monthly. 06/24/25: Slept for 5 hours last night, but also went to bed around 7 tonight p.m. last night per his report. He also attended to groups in the afternoon yesterday. Compliant with medications. No side effects from Invega Sustenna. He is engaged in full conversation today why he is in bed, denies safety concerns. Observe he is on the unit, social with peers and staff in longer period of time. Appeared to be happy. He plans to take shower today. Reported that he was up early but he does not feel hungry in the morning. He is making progress, not too sedated during daytime since switching his medication. Appears to do well so far with Invega Sustenna. 06/25/25: Patient slept for 4 hours last night, however he reported was napping in the afternoon for couple hours which affect his sleeping pattern at night. Educate patient to not napping late in the evening. He is receptive. Compliant with medications, no side effects. He reports his did not shower yesterday but he will today. He is awake in his room not sleeping, engage in full conversation, no delusional or paranoid statements make. He is visible at times. Continued to improve in mood, engaging in other activities on the unit. Denies other safety concerns. Denies hallucinations. No irritability mood, not sedated during day time compared to when he was taking olanzapine. We will schedule Invega Sustenna 156 next Monday. Work with social media project manager to see where he will return to. He probably needs [facility] to manage medication. 06/26/25: He slept for 5 hours, compliant with medications. Denies side effects. He self-reported that he went to bed last night and was able to fall asleep by 01:00 and able to stay asleep whole night. Denies safety concerns. I spoke with him in length today regarding aftercare. He thinks he will go to the hospital in [place] to ask them regarding his heart condition. He thinks people was lying to get him to the hospital as he does not have mental health illnesses. He believes that he has been exactly the same he was seen he was a little, and at he able to remember everything in the past. He also reports that he used to use [employer] in [place]. At he does not want [facility] application. I explained to him that in order to be a candidate patient have to be a safe that he has mental health issues, so people can submit the application, and from the [facility] worker will contact him to do assessment if he qualify for any services that they can provide. Patient is receptive application, social media project manager was notified. Patient also would like to have services with [facility] in [place]. He showered yesterday morning, did not go to groups yesterday, but he will go to some groups today per his plan for the day, more awake, engaged in conversation, no irritability. However, continued to be poor insight of his illnesses. He does not want to return to his brother I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
[2025-07-28 20:00] VITALS: BP 135/60; PULSE 99; RESP 20; TEMP 36.4; O2SAT 98
[2025-07-29 08:00] VITALS: RESP 14
--- NOTE | 2025-07-29 13:31 | HO.PSYCHPN ---
Subjective Subjective Date of Service: 07/29/25 Reason For Visit: psychotic disorder Interim History: no change in presentation. per staff, got invega yesterday. sleeping a lot. Mental Status Exam Mental Status Exam Narrative: in bed. cooperative. speech nml rate, decr amount and loudness. thoughts linear and logical. mood euthymic. no complaints. No SI/SIB/HI/AVH expressed. Diagnostics Vital Signs (24Hr): Vital Signs - 24 hr 07/28/25 20:00 Temperature 97.5 F Pulse Rate 99 Respiratory Rate 20 Blood Pressure 135/60 Pulse Oximetry 98 Oxygen Delivery Method Room Air BMI result Body Mass Index 23.2 Labs 06/25/25 08:02 06/20/25 20:35 Medications Medications Current Medications Acetaminophen (Acetaminophen 325 Mg Tablet) 650 mg PO Q4H PRN PRN Reason: Pain, Mild (Pain Scale 1-3) Last Admin: 07/06/25 22:53 Dose: 650 mg Al Hydroxide/Mg Hydroxide (Magnesium Hydrox/Alum Hydrox 30 Ml Oral.Susp) 30 ml PO Q6H PRN PRN Reason: Heart burn Benzocaine (Benzocaine 20 % Oral Gel 14 Gm Tube) 1 appl MUCOUS MEM QID PRN; Protocol PRN Reason: Mouth Sore Pain Last Admin: 04/26/25 18:33 Dose: 1 appl Diazepam (Diazepam 10 Mg/2 Ml Cartridge) 10 mg IM BID PRN PRN Reason: refusal of lithium, per [place] Last Admin: 04/11/25 09:56 Dose: 10 mg Glycopyrrolate (Glycopyrrolate 1 Mg Tablet) 1 mg PO BID [facility] Last Admin: 07/29/25 09:58 Dose: 1 mg Hydrocortisone (Hydrocortisone 1 % Cream 28.35 Gm Tube) 1 appl TOPICAL DAILY PRN; Protocol PRN Reason: rash Last Admin: 07/17/25 23:13 Dose: 1 appl [place] Carbonate ([place] Carbonate Er 300 Mg Tablet.Er) 600 mg PO DAILY [facility] Last Admin: 07/29/25 09:58 Dose: 600 mg [place] Carbonate ([place] Carbonate Er 450 Mg Tablet.Er) 900 mg PO DAILY@2300 [facility] Last Admin: 07/28/25 22:40 Dose: 900 mg Magnesium Hydroxide (Milk Of Magnesia 30 Ml Oral.Susp) 30 ml PO DAILY PRN PRN Reason: Constipation Methimazole (Methimazole 10 Mg Tablet) 10 mg PO DAILY [facility] Last Admin: 07/29/25 09:58 Dose: 10 mg Nicotine (Nicotine 21 Mg Patch.Td24) 21 mg TRANSDERMA DAILY PRN PRN Reason: nicotine cravings Last Admin: 04/12/25 17:06 Dose: 21 mg Nicotine Polacrilex (Nicotine Polacrilex Lozenge 2 Mg Lozenge) 2 mg BUCCAL Q1H PRN PRN Reason: Nicotine Cravings Last Admin: 04/30/25 08:49 Dose: 2 mg Patient Own Medication Excedrin 250/250/65mg 2 each PO Q8H PRN PRN Reason: Migraine Headache Last Admin: 07/16/25 22:13 Dose: 2 each Olanzapine (Olanzapine 10 Mg Vial) 10 mg IM DAILY PRN PRN Reason: if refuse Invega PO Paliperidone Palmitate (Paliperidone Palmitate 234 Mg/1.5 Ml Syringe) 234 mg IM Q30D [facility] Last Admin: 07/28/25 16:55 Dose: 234 mg Pseudoephedrine HCl (Pseudoephedrine Hcl 30 Mg Tablet) 30 mg PO Q6H PRN PRN Reason: Congestion Last Admin: 07/03/25 21:18 Dose: 30 mg Quetiapine Fumarate (Quetiapine Fumarate 100 Mg Tablet) 100 mg PO BEDTIME PRN PRN Reason: insomnia Last Admin: 07/28/25 22:40 Dose: 100 mg Quetiapine Fumarate (Quetiapine Fumarate 50 Mg Tablet) 50 mg PO BID PRN PRN Reason: agitation Last Admin: 07/23/25 22:28 Dose: 50 mg Sodium Chloride (Sodium Chloride 0.65 % Nasal 44 Ml Sprbtl) 1 spray NOSTRIL-B Q4H PRN PRN Reason: Congestion Last Admin: 07/03/25 23:03 Dose: 1 spray Allergies Allergies Allergy/AdvReac Type Severity Reaction Status Date / Time No Known Allergies Allergy Verified 03/26/25 14:24 Assessment & Plan Assessment & Plan (1) Graves disease: Status: Acute Code(s): E05.00 - Thyrotoxicosis with diffuse goiter without thyrotoxic crisis or storm Assessment and Plan: Hyperthyroidism/Graves disease. He will need follow up with endocrinology as an outpatient He will also need a primary care doctor referral as an outpatient Discussed with Dr. Bejarano, patient will need free T4 weekly Decrease Methimazole to 15 mgs daily for three days and then 10 mgs daily- discussed with patient he is aware of plan and rationale. TSH and free T4 every 4 weeks. No need to draw thyroid stimulation immunology or TSH receptor AB (2) Dental abscess: Status: Acute Code(s): K04.7 - Periapical abscess without sinus Assessment and Plan: Carious tooth/dental infection Recently treated with PEN VK 500 mg q.6 hours for 7 days Patient will need follow up with dentist on discharge for tooth extraction Motrin helping pain. (3) Becca: Status: Acute Code(s): F30.9 - Manic episode, unspecified Plan 03/26: offer lithium and seroquel for becca. continue methimazole and beta joanne for hyperthyroidism as started at [facility]. trend TFTs. 12b. 03/27: taking methimazole and beta joanne. refused HS meds last night, took morning meds today. continue to encourage medication compliance. 03/28: intermittently taking meds. wants all meds in morning. pressured, manic, paranoid delusions. encouraged to take lithium but states he will not. all meds ordered for morning. 03/29: Keeping to self. no groups. observed laying in bed listening to music on unit headphones. pleasant. Pt reports feeling good today and sleeping well. declined lithium and zyprexa. denies SI/HI/VH/AH. continue current tx plan. 03/30:Irritable. upset he was unable to use his personal hygiene products. Per nursing, pt threatened staff and squeezed tooth paste throughout unit hallway to show his frustration. Pt was able to calm down after speaking with security. declined medications. 03/31: Keeping to self. laying in bed listening to music. refused medications. calm today. Patient reports feeling great ; pt stated, nothing is wrong with me. I'm waiting so I can leave tomorrow. I'm hoping for the best . denies SI/HI/VH/AH. per nursing, slept 6 hours. Continue current tx plan. 04/01: variably calm on the unit versus highly agitated. paranoid delusions, irritability, lability continue. seems to believe MD has met him prior to the present hospitalization and is stalking him. believes brother behind conspiracy to have him psychiatrically hospitalized. has been refusing all medications, including for hyperthyroidism. informed he would be filed on. filed. continue to offer medications. 04/02: continues agitated, belittling, verbally aggressive, refusing all medications including for hyperthyroidism. continue to offer medication. 04/03: paranoid there is a conspiracy to hospitalize him. threatening to stick a stick in staff once he is released by stereotyper helper. insists his hyperthyroidism was cured at [facility]. asserts there is NOTHING wrong with him. continue to offer medication. 04/04: irritable, rejecting. verbally abuses MD and sends him away: see you on monday [in court]. continue to offer medication for thyroid condition and mental illness. 04/05 continue tx. suspicious and guarded, accusatory, verbal threats to hurt staff and peers 04/06 intrusive, posturing towards staff and peer who he thinks is not real and is an impostor, continues to make verbal threats to harm him but thinks that because he is not real he may not experience any pain. 04/07: threatening statements and behaviors of yesterday noted. pt sleeping this morning, dismissive of MD. 04/08: asleep days. committed and meds ordered by court. 04/09: on being informed of court order and MD insisting on meds, pt escalated to hurling food item in container against wall at high speed and saying he wished he could do the same to MD's head. pt eventually took court ordered meds PO. sensodyne and excedrin not available in pharmacy (pt requesting them). 04/10: continue tx. Pt accepting medication today. 04/11: Keeping to self. Lying in bed most of morning. Declined to meet with T/W. Pt stated, I'm fine. I don't need anything . Listening to headphones in room. Declined court ordered PO medications; received IM medications. Refused vital signs.continue tx plan. 04/12: got IMs yesterday, took PO this morning. sleepy, no concerns or complaints. 04/13: taking PO meds again. slept 7 hours. sleepy again mid morning refusing interview. continue current mgmt. 04/14: sleeping, rousable. denies being sedated or tired, says he's just bored. no questions or complaints. informed of need to check labs. check lithium level and thyroid labs tonight. 04/15: refusing labs. delusional re his brother harming him. verbally abusive toward MD. spat in floor. happy with improvement in proptosis. 04/16: Lying in bed. Calm. cooperative. guarded. Pt reports feeling tired this morning d/t poor sleep last night. Pt stated, I don't need anything. I didn't sleep well so I'm trying to catch up . denies any issues at this time. denies SI/HI/VH/AH. Continue current tx plan. 04/17: more calm today, less explosive. continue current mgmt. 04/18: continues more calm. tolerating moments of frustration without verbally attacking MD. slept only 2 hours overnight, however. continue current mgmt. 04/19 continues to push boundaries and limits with staff mike around cell phone- 04/20 - aggressive with staff and unpredictable- threw water pitcher at staff behind desk/-when seen by provider passive in bed-denying all compaints/sys- no insight 04/21: appears as per last week. more difficult behaviors around cell phone use, did throw pitcher of water at RN monday over phone use and was restrained. continue current mgmt. 04/22: continues to have conflict around cell phone use. consolidate zyprexa at HS to decrease daytime sedation. 1:1 allegra shift until peer he is accusing of not being a real patient and appears to be targeting discharges tomorrow. 04/23: lithium 0.6 on 600 BID. sleeping better, remains delusional (telling SW who is marginally younger than him that she could be his daughter). just changed zyprexa dosing as of last night. continue current regimen and observe for continued stabilization. T/C slight increase in lithium dosing. 04/24: Laying in bed. guarded. calm. did not want to get out of bed to meet with T/W. Pt reports feeling great today but declined to go into detail. listening to music on unit headphones. Pt stated, I'm fine. I don't need anything . denies any issues at this time. denies SI/HI/VH/AH. Continue current tx plan. 04/25: Laying in bed. keeping to self. calm. paranoid. Discussed incident that occurred with staff last evening. Pt stated, the counselor made up a lie yesterday. I said she looks like my ex-girlfriend. I know they are related. They want to make up a lie to irritate me. They are trying to talk to me so they can use recording devices and make me look some kind of way . listening to music on unit headphones. denies SI/HI/VH/AH. Continue current tx plan. 04/26: Continue current regimen and plans. Increase Zyprexa 20 mg q.h.s. fresh air break withheld 04/27: Continue current regimen and plans 04/28: somewhat less irritable and agitated than last week. however, over the weekend was claiming he was the father of a footballer on TV and also that a staff member is a twin of his ex-GF (and he pushed staff member). TFTs improving. continue current mgmt. 04/29: no change in presentation. continue current mgmt. 04/30: no irritable edge today. calm, pleasant. engaging in small talk. reality testing not pressed. continue current mgmt for now. 05/01: no change in presentation. continue current mgmt. 05/02: BPs coming down, DC beta joanne as pt has been refusing anyway. remains not antagonistic toward MD. using phone appropriately. continue current mgmt otherwise. 05/03 continue 05/04: remains delusional, irritable/labile when delusional system confronted. declines to sign TOMMY for [facility] records. continue current mgmt. 05/06: declining to meet with MD, but does meet with medical student. remains upset about yesterday's confrontation re his delusional system. 05/07: Active on unit. keeping to self. pacing unit hallway while listening to unit headphones. medication compliant. patient reports feeling good ; pt stated, I'm just waiting to leave here. I want to return to my life and do things like go grocery shopping . denies SI/HI/VH/AH. Continue current tx plan. 05/08: stable presentation, delusions not being brought to the surface daily. remains affectively improved from admission. continue current mgmt. 05/09: calm, pleasant. no questions or complaints. continue current mgmt. 05/10: no change in presentation. due to lack of improvement in dental infection Sx, DC PCN and start augmentin. 05/11: no change in presentation. continue current mgmt. 05/12: as for yesterday. dental pain improving a bit. 05/13: expressed to medical student that his brother poisoned him, causing his thyroid disease. no change in presentation. continue current mgmt. 05/14: Pacing unit hallway. keeping to self. patient reports feeling good today; denies any issues at this time. denies SI/HI/VH/AH. per nursing, slept 5 hours. Continue current tx plan. 05/15: slept 6 hours. otherwise isolative, difficult to engage. continue current mgmt. 05/16: slept 7 hours. as for yesterday otherwise. 05/17/25: Slept well, no issue with appetite, skinny and pretty tall. Compliant with medication. No side effects Calm and pleasant upon approach. Some what paranoid. Tangential, however denies other safety concerns. Questions if he is discharging soon. He is on antibiotic for 7 days for mouth pain/tooth pain. We will finish the 7 course up in antibiotic after tonight dose. Then discontinue. 05/18/25: Slept for 5 hours plus hours this morning. In bed most of the shift, no behavior issues. Denies other safety concerns. 05/19: in bed days, up eves. no change in presentation. continue current mgmt. 05/20: no change in presentation. check labs. 05/21: lithium low, TFTs mixed and not all back. increase lithium from 600 BID to 600/900. trend BUN/Cr, with slight elevation. otherwise continue current mgmt. 05/22: no change in presentation. continue current mgmt. 05/23: does not deny someone stole his sperm and impregnated his landlord's child with it. irritable. c/o dental pain, antibx restarted. otherwise continue current mgmt. 05/14: no change in mgt 05/25: more isolative today; no change in mgt 05/26: decreases in methimazole noted. continue psych regimen as is. pt refused to interact with MD today. 05/27: i'm sleeping. no change in presentation. labs tonight. 05/28: no change in behavior. lithium 0.66, BUN stable. continue current mgmt. 05/29: irritable. continue current mgmt. 05/30: no longer in single room. still not engaging, sleeping days. continue current mgmt. 05/31:laying in bed. declined to meet with T/W. pt stated, I want to sleep. I didn't sleep enough . Pt encouraged to reach out to staff if he needs anything. Continue current tx plan. 06/01: Similar to yesterday. laying in bed. Irritable. declined to meet with T/W and pulled bed sheets over head. pt stated, I don't want to talk. I want to sleep . difficult to engage. Continue current tx plan. 06/02: Similar to yesterday. laying in bed. Irritable. declined to meet with T/W. Observed getting drink from kitchen; T/W approached pt and asked if they could speak. patient declined to acknowledge T/W and walked past. Continue current tx plan. 06/03: no change in behavior. continue tx plan. 06/04/25: Passive engaged in the assessment, in bed mostly sleeping this morning which could be interfere with his nighttime. Cover body under the blanket Slept for 4-5 hours last night. Was medication compliant, attended no groups, isolative to self in room. No SI/SIB/HI/AVH expressed. 06/05: continue tx plan. 06/06: reports feeling fine ; continues guarded. difficult to engage. declining to meet with T/W. continue tx plan. 06/07/25: Slept for 4 hours at night, but has been sleeping most of the day yesterday as well. Spent majority of the shift in bed, was medication compliant. Passive engaged in the conversation. He said he will try to change the sleeping pattern so that he can be awake more during the daytime. Appear to be sedated in the morning. No safety behavior. 06/08/25: Slept for 3-4 hours last night, compliant with medications. Denies side effects, denies other safety concerns. Continued to encourage patient to up and down more than on the unit he spent most of the day sleeping. He is pleasant upon approach. No other behavior issues. Denied voices/hallucinations. Suicide thoughts or homicidal thoughts. 06/09: sleeping, minimally rousable. denies problems. continue current mgmt. 06/10: sleeping all day, up most of the night. minimally rousable. denies problems. continue current mgmt. per JAMAICA Arrington: Jean said when he leaves he can return to [facility]. he was living with a lady there and can go back. He plans to get a job to pay off his debt. He said he owes money because they sent him back here due to losing his passport and he owes them money for the temporary emergency passport and the flight back to the . so his main focus is to get a job. he said he will try things here first and if it doesn't work out he plans to return to [place]. 06/11/25: Passively engaged in conversation while in bed sleeping/resting. Able to answer question appropriately, but seems to be minimized. Denies SI/SIB/HI/AVH. He slept 5 hours last night, spent most of the day in bed sleeping. Attempted to no groups, observed out to the afternoon in the subramanian near the nurse station. No change in presentation. Encourage groups,up and engaged in groups. 06/12: not engaging. no complaints or questions re med changes. cross-taper zyprexa in favor of invega, give MONTERO invega. tonight, decrease zyprexa to 15 mg and start invega 3 mg. otherwise continue current mgmt. 06/13: continues avoidant and disengaged. denies side effects from med change last night. informed cross-titration will advance tonight. decrease zyprexa to 10 mg tonight, increase paliperidone to 6 mg. plan to continue by 5 mg zyprexa and 3 mg paliperidone increments every several days as tolerated until zyprexa DCed and paliperidone at 12 mg QHS. once it is established pt is tolerating PO Paliperidone, invega sustenna to be administered. 06/14: Continue current regimen and plans 06/15: Continue current plans and regimen 06/16: irritable re neuroleptic change. denies side effects or problems with it, however. minimally engageable. increase invega to 9 QHS and decrfease zyprexa to 5 QHS. 06/17/25: Continued to be irritable regarding medication change/titration. However engaged in conversation, hyper verbal, paranoid, reports medication slow his thoughts down and he does not not like it. Poor insight and poor judgment. He thinks he only need lithium, not other medications. Remind patient to continue doing the sleep pattern changing. However his in bed mostly this morning. Slept for 4-5 hours last night. 06/18/25: Slept for 5 hours last night as he continues sleeping during daytime. Compliant with meds, did not c/o side effects.Passingly engaging in assessment. Denies safety concerns. Tolerate the tritation well. Will increase Inveag up to max of 12 tomorrow and Discontinue Olanzepine at HS. Continue to encourage up and out on day so he can sleep better at HS. 06/19/25: Patient slept for 5.5 hours last night, was medication compliant, mostly in his room yesterday but seen more often in the evening. Patient is awake in his room, listen to music, his morning tray was taken away and clean the area. He is very pleasant to talk to today, reports he feels good, denies side effects from medications, denies any safety concerns. Denies feeling sedation, denies anxiety/depression. He is receptive with the plan of medication over the weekends and next week, happy to hear about the medication plan. He also agree with the MONTERO Invega Sustenna on Monday. Encourage him to go out and attended to groups, he said that he will. Reported that he was out for groups a couple of times last week. Discontinue Haldol p.r.n.. Discontinue scheduled Zyprexa 5 mg at bedtime. Only on 10 Zyprexa at g IM daily p.r.n. as backup orders if refused Invega. Invega 12 mg at bedtime. Plan to monitor over the weekends and will give long-acting injection on Monday if tolerate with the p.o. well Reduce Seroquel 200 mg p.r.n. at bedtime to 100 p.r.n. at bedtime for insomnia. Seroquel 50 mg b.i.d. p.r.n. for agitation. Discontinue Motrin. Patient on lithium. Labs were for MondayJune 20: CMP, TSH with free T4. 06/20/25: In bed most of the day, was compliant with medication, however refused labs work. Re- scheduled for Monday. Continue with Invega 12 mg at bedtime. We will reassess and offer long-acting injection on Monday. Continue to encourage patient to get up and go to some groups. No safety concerns expressed. Minimal peer and staff interaction. 06/21: no change in presentation. start MONTERO monday. no s/e from invega. otherwise continue current mgmt. 06/22: stable. continue current mgmt. 06/23/25: More awake and alert. Review with patient regarding policy for his phone use BID 30min each time, patient is educated on compliant with policy. He asks for more 5-10 min extra headphone use at night on the weekends after 2300. Once again, redirected for unit rules. He agrees with MONTERO which is scheduled today. Discontinue Invega PO Invega Sustenna 234mg IM once. Will monitor for possible side effects and sedation. Will offer 156mg after 1 week. If mentaly stable with 156mg, will maintain at this dose, if not will offer 234mg Monthly. 06/24/25: Slept for 5 hours last night, but also went to bed around 7 tonight p.m. last night per his report. He also attended to groups in the afternoon yesterday. Compliant with medications. No side effects from Invega Sustenna. He is engaged in full conversation today why he is in bed, denies safety concerns. Observe he is on the unit, social with peers and staff in longer period of time. Appeared to be happy. He plans to take shower today. Reported that he was up early but he does not feel hungry in the morning. He is making progress, not too sedated during daytime since switching his medication. Appears to do well so far with Invega Sustenna. 06/25/25: Patient slept for 4 hours last night, however he reported was napping in the afternoon for couple hours which affect his sleeping pattern at night. Educate patient to not napping late in the evening. He is receptive. Compliant with medications, no side effects. He reports his did not shower yesterday but he will today. He is awake in his room not sleeping, engage in full conversation, no delusional or paranoid statements make. He is visible at times. Continued to improve in mood, engaging in other activities on the unit. Denies other safety concerns. Denies hallucinations. No irritability mood, not sedated during day time compared to when he was taking olanzapine. We will schedule Invega Sustenna 156 next Monday. Work with social problems specialist to see where he will return to. He probably needs [facility] to manage medication. 06/26/25: He slept for 5 hours, compliant with medications. Denies side effects. He self-reported that he went to bed last night and was able to fall asleep by 01:00 and able to stay asleep whole night. Denies safety concerns. I spoke with him in length today regarding aftercare. He thinks he will go to the hospital in [place] to ask them regarding his heart condition. He thinks people was lying to get him to the hospital as he does not have mental health illnesses. He believes that he has been exactly the same he was seen he was a little, and at he able to remember everything in the past. He also reports that he used to use [facility] in [place]. At he does not want [facility] application. I explained to him that in order to be a candidate patient have to be a safe that he has mental health issues, so people can submit the application, and from the [facility] worker will contact him to do assessment if he qualify for any services that they can provide. Patient is receptive application, social problems specialist was notified. Patient also would like to have services with [facility] in [place]. He showered yesterday morning, did not go to groups yesterday, but he will go to some groups today per his plan for the day, more awake, engaged in conversation, no irritability. However, continued to be poor insight of his illnesses. He does not want to return to his brother I have not talking to him for since 2021.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
[2025-07-29 20:00] VITALS: BP 116/59; PULSE 85; RESP 18; TEMP 38.1; O2SAT 98
[2025-07-30 08:00] VITALS: RESP 18
--- NOTE | 2025-07-30 13:06 | HO.PSYCHPN ---
Subjective Subjective Date of Service: 07/30/25 Reason For Visit: psychotic disorder Interim History: no change in presentation. per JAMAICA Nury, now declining to allow contact with brother. Mental Status Exam Mental Status Exam Narrative: in bed. cooperative. speech nml rate, decr amount and loudness. thoughts linear and logical. mood euthymic. no complaints. No SI/SIB/HI/AVH expressed. Diagnostics Vital Signs (24Hr): Vital Signs - 24 hr 07/29/25 20:00 07/30/25 08:00 Temperature 100.6 F H Pulse Rate 85 Respiratory Rate 18 18 Blood Pressure 116/59 L Pulse Oximetry 98 Oxygen Delivery Method Room Air BMI result Body Mass Index 23.2 Labs 06/25/25 08:02 06/20/25 20:35 Medications Medications Current Medications Acetaminophen (Acetaminophen 325 Mg Tablet) 650 mg PO Q4H PRN PRN Reason: Pain, Mild (Pain Scale 1-3) Last Admin: 07/06/25 22:53 Dose: 650 mg Al Hydroxide/Mg Hydroxide (Magnesium Hydrox/Alum Hydrox 30 Ml Oral.Susp) 30 ml PO Q6H PRN PRN Reason: Heart burn Benzocaine (Benzocaine 20 % Oral Gel 14 Gm Tube) 1 appl MUCOUS MEM QID PRN; Protocol PRN Reason: Mouth Sore Pain Last Admin: 04/26/25 18:33 Dose: 1 appl Diazepam (Diazepam 10 Mg/2 Ml Cartridge) 10 mg IM BID PRN PRN Reason: refusal of lithium, per everett Last Admin: 04/11/25 09:56 Dose: 10 mg Glycopyrrolate (Glycopyrrolate 1 Mg Tablet) 1 mg PO BID [facility] Last Admin: 07/30/25 11:36 Dose: 1 mg Hydrocortisone (Hydrocortisone 1 % Cream 28.35 Gm Tube) 1 appl TOPICAL DAILY PRN; Protocol PRN Reason: rash Last Admin: 07/17/25 23:13 Dose: 1 appl [place] Carbonate ([place] Carbonate Er 300 Mg Tablet.Er) 600 mg PO DAILY [facility] Last Admin: 07/30/25 11:36 Dose: 600 mg [place] Carbonate ([place] Carbonate Er 450 Mg Tablet.Er) 900 mg PO DAILY@2300 [facility] Last Admin: 07/29/25 22:46 Dose: 900 mg Magnesium Hydroxide (Milk Of Magnesia 30 Ml Oral.Susp) 30 ml PO DAILY PRN PRN Reason: Constipation Methimazole (Methimazole 10 Mg Tablet) 10 mg PO DAILY [facility] Last Admin: 07/30/25 11:36 Dose: 10 mg Nicotine (Nicotine 21 Mg Patch.Td24) 21 mg TRANSDERMA DAILY PRN PRN Reason: nicotine cravings Last Admin: 04/12/25 17:06 Dose: 21 mg Nicotine Polacrilex (Nicotine Polacrilex Lozenge 2 Mg Lozenge) 2 mg BUCCAL Q1H PRN PRN Reason: Nicotine Cravings Last Admin: 04/30/25 08:49 Dose: 2 mg Patient Own Medication Excedrin 250/250/65mg 2 each PO Q8H PRN PRN Reason: Migraine Headache Last Admin: 07/16/25 22:13 Dose: 2 each Olanzapine (Olanzapine 10 Mg Vial) 10 mg IM DAILY PRN PRN Reason: if refuse Invega PO Paliperidone Palmitate (Paliperidone Palmitate 234 Mg/1.5 Ml Syringe) 234 mg IM Q30D [facility] Last Admin: 07/28/25 16:55 Dose: 234 mg Pseudoephedrine HCl (Pseudoephedrine Hcl 30 Mg Tablet) 30 mg PO Q6H PRN PRN Reason: Congestion Last Admin: 07/03/25 21:18 Dose: 30 mg Quetiapine Fumarate (Quetiapine Fumarate 100 Mg Tablet) 100 mg PO BEDTIME PRN PRN Reason: insomnia Last Admin: 07/29/25 22:46 Dose: 100 mg Quetiapine Fumarate (Quetiapine Fumarate 50 Mg Tablet) 50 mg PO BID PRN PRN Reason: agitation Last Admin: 07/23/25 22:28 Dose: 50 mg Sodium Chloride (Sodium Chloride 0.65 % Nasal 44 Ml Sprbtl) 1 spray NOSTRIL-B Q4H PRN PRN Reason: Congestion Last Admin: 07/03/25 23:03 Dose: 1 spray Allergies Allergies Allergy/AdvReac Type Severity Reaction Status Date / Time No Known Allergies Allergy Verified 03/26/25 14:24 Assessment & Plan Assessment & Plan (1) Graves disease: Status: Acute Code(s): E05.00 - Thyrotoxicosis with diffuse goiter without thyrotoxic crisis or storm Assessment and Plan: Hyperthyroidism/Graves disease. He will need follow up with endocrinology as an outpatient He will also need a primary care doctor referral as an outpatient Discussed with Dr. Bejarano, patient will need free T4 weekly Decrease Methimazole to 15 mgs daily for three days and then 10 mgs daily- discussed with patient he is aware of plan and rationale. TSH and free T4 every 4 weeks. No need to draw thyroid stimulation immunology or TSH receptor AB (2) Dental abscess: Status: Acute Code(s): K04.7 - Periapical abscess without sinus Assessment and Plan: Carious tooth/dental infection Recently treated with PEN VK 500 mg q.6 hours for 7 days Patient will need follow up with dentist on discharge for tooth extraction Motrin helping pain. (3) Becca: Status: Acute Code(s): F30.9 - Manic episode, unspecified Plan 03/26: offer lithium and seroquel for becca. continue methimazole and beta joanne for hyperthy[place] as [place] [facility] trend TFTs. 12b. 03/27: taking methimazole and beta joanne. refused HS meds last night, took morning meds today. continue to encourage medication compliance. 03/28: intermittently taking meds. wants all meds in morning. pressured, manic, paranoid delusions. encouraged to take lithium but states he will not. all meds ordered for morning. 03/29: Keeping to self. no groups. observed laying in bed listening to music on unit headphones. pleasant. Pt reports feeling good today and sleeping well. declined lithium and zyprexa. denies SI/HI/VH/AH. continue current tx plan. 03/30:Irritable. upset he was unable to use his personal hygiene products. Per nursing, pt threatened staff and squeezed tooth paste throughout unit hallway to show his frustration. Pt was able to calm down after speaking with security. declined medications. 03/31: Keeping to self. laying in bed listening to music. refused medications. calm today. Patient reports feeling great ; pt stated, nothing is wrong with me. I'm waiting so I can leave tomorrow. I'm hoping for the best . denies SI/HI/VH/AH. per nursing, slept 6 hours. Continue current tx plan. 04/01: variably calm on the unit versus highly agitated. paranoid delusions, irritability, lability continue. seems to believe MD has met him prior to the present hospitalization and is stalking him. believes brother behind conspiracy to have him psychiatrically hospitalized. has been refusing all medications, including for hyperthyroidism. informed he would be filed on. filed. continue to offer medications. 04/02: continues agitated, belittling, verbally aggressive, refusing all medications including for hyperthyroidism. continue to offer medication. 04/03: paranoid there is a conspiracy to hospitalize him. threatening to stick a stick in staff once he is released by molding room supervisor. insists his hyperthyroidism was cured at [facility]. asserts there is NOTHING wrong with him. continue to offer medication. 04/04: irritable, rejecting. verbally abuses MD and sends him away: see you on monday [in court]. continue to offer medication for thyroid condition and mental illness. 04/05 continue tx. suspicious and guarded, accusatory, verbal threats to hurt staff and peers 04/06 intrusive, posturing towards staff and peer who he thinks is not real and is an impostor, continues to make verbal threats to harm him but thinks that because he is not real he may not experience any pain. 04/07: threatening statements and behaviors of yesterday noted. pt sleeping this morning, dismissive of MD. 04/08: asleep days. committed and meds ordered by court. 04/09: on being informed of court order and MD insisting on meds, pt escalated to hurling food item in container against wall at high speed and saying he wished he could do the same to MD's head. pt eventually took court ordered meds PO. sensodyne and excedrin not available in pharmacy (pt requesting them). 04/10: continue tx. Pt accepting medication today. 04/11: Keeping to self. Lying in bed most of morning. Declined to meet with T/W. Pt stated, I'm fine. I don't need anything . Listening to headphones in room. Declined court ordered PO medications; received IM medications. Refused vital signs.continue tx plan. 04/12: got IMs yesterday, took PO this morning. sleepy, no concerns or complaints. 04/13: taking PO meds again. slept 7 hours. sleepy again mid morning refusing interview. continue current mgmt. 04/14: sleeping, rousable. denies being sedated or tired, says he's just bored. no questions or complaints. informed of need to check labs. check lithium level and thyroid labs tonight. 04/15: refusing labs. delusional re his brother harming him. verbally abusive toward MD. spat in floor. happy with improvement in proptosis. 04/16: Lying in bed. Calm. cooperative. guarded. Pt reports feeling tired this morning d/t poor sleep last night. Pt stated, I don't need anything. I didn't sleep well so I'm trying to catch up . denies any issues at this time. denies SI/HI/VH/AH. Continue current tx plan. 04/17: more calm today, less explosive. continue current mgmt. 04/18: continues more calm. tolerating moments of frustration without verbally attacking MD. slept only 2 hours overnight, however. continue current mgmt. 04/19 continues to push boundaries and limits with staff mike around cell phone- 04/20 - aggressive with staff and unpredictable- threw water pitcher at staff behind desk/-when seen by provider passive in bed-denying all compaints/sys- no insight 04/21: appears as per last week. more difficult behaviors around cell phone use, did throw pitcher of water at RN monday over phone use and was restrained. continue current mgmt. 04/22: continues to have conflict around cell phone use. consolidate zyprexa at HS to decrease daytime sedation. 1:1 allegra shift until peer he is accusing of not being a real patient and appears to be targeting discharges tomorrow. 04/23: lithium 0.6 on 600 BID. sleeping better, remains delusional (telling SW who is marginally younger than him that she could be his daughter). just changed zyprexa dosing as of last night. continue current regimen and observe for continued stabilization. T/C slight increase in lithium dosing. 04/24: Laying in bed. guarded. calm. did not want to get out of bed to meet with T/W. Pt reports feeling great today but declined to go into detail. listening to music on unit headphones. Pt stated, I'm fine. I don't need anything . denies any issues at this time. denies SI/HI/VH/AH. Continue current tx plan. 04/25: Laying in bed. keeping to self. calm. paranoid. Discussed incident that occurred with staff last evening. Pt stated, the counselor made up a lie yesterday. I said she looks like my ex-girlfriend. I know they are related. They want to make up a lie to irritate me. They are trying to talk to me so they can use recording devices and make me look some kind of way . listening to music on unit headphones. denies SI/HI/VH/AH. Continue current tx plan. 04/26: Continue current regimen and plans. Increase Zyprexa 20 mg q.h.s. fresh air break withheld 04/27: Continue current regimen and plans 04/28: somewhat less irritable and agitated than last week. however, over the weekend was claiming he was the father of a footballer on TV and also that a staff member is a twin of his ex-GF (and he pushed staff member). TFTs improving. continue current mgmt. 04/29: no change in presentation. continue current mgmt. 04/30: no irritable edge today. calm, pleasant. engaging in small talk. reality testing not pressed. continue current mgmt for now. 05/01: no change in presentation. continue current mgmt. 05/02: BPs coming down, DC beta joanne as pt has been refusing anyway. remains not antagonistic toward MD. using phone appropriately. continue current mgmt otherwise. 05/03 continue 05/04: remains delusional, irritable/labile when delusional system confronted. declines to sign TOMMY for [facility] records. continue current mgmt. 05/06: declining to meet with MD, but does meet with medical student. remains upset about yesterday's confrontation re his delusional system. 05/07: Active on unit. keeping to self. pacing unit hallway while listening to unit headphones. medication compliant. patient reports feeling good ; pt stated, I'm just waiting to leave here. I want to return to my life and do things like go grocery shopping . denies SI/HI/VH/AH. Continue current tx plan. 05/08: stable presentation, delusions not being brought to the surface daily. remains affectively improved from admission. continue current mgmt. 05/09: calm, pleasant. no questions or complaints. continue current mgmt. 05/10: no change in presentation. due to lack of improvement in dental infection Sx, DC PCN and start augmentin. 05/11: no change in presentation. continue current mgmt. 05/12: as for yesterday. dental pain improving a bit. 05/13: expressed to medical student that his brother poisoned him, causing his thyroid disease. no change in presentation. continue current mgmt. 05/14: Pacing unit hallway. keeping to self. patient reports feeling good today; denies any issues at this time. denies SI/HI/VH/AH. per nursing, slept 5 hours. Continue current tx plan. 05/15: slept 6 hours. otherwise isolative, difficult to engage. continue current mgmt. 05/16: slept 7 hours. as for yesterday otherwise. 05/17/25: Slept well, no issue with appetite, skinny and pretty tall. Compliant with medication. No side effects Calm and pleasant upon approach. Some what paranoid. Tangential, however denies other safety concerns. Questions if he is discharging soon. He is on antibiotic for 7 days for mouth pain/tooth pain. We will finish the 7 course up in antibiotic after tonight dose. Then discontinue. 05/18/25: Slept for 5 hours plus hours this morning. In bed most of the shift, no behavior issues. Denies other safety concerns. 05/19: in bed days, up eves. no change in presentation. continue current mgmt. 05/20: no change in presentation. check labs. 05/21: lithium low, TFTs mixed and not all back. increase lithium from 600 BID to 600/900. trend BUN/Cr, with slight elevation. otherwise continue current mgmt. 05/22: no change in presentation. continue current mgmt. 05/23: does not deny someone stole his sperm and impregnated his landlord's child with it. irritable. c/o dental pain, antibx restarted. otherwise continue current mgmt. 05/14: no change in mgt 05/25: more isolative today; no change in mgt 05/26: decreases in methimazole noted. continue psych regimen as is. pt refused to interact with MD today. 05/27: i'm sleeping. no change in presentation. labs tonight. 05/28: no change in behavior. lithium 0.66, BUN stable. continue current mgmt. 05/29: irritable. continue current mgmt. 05/30: no longer in single room. still not engaging, sleeping days. continue current mgmt. 05/31:laying in bed. declined to meet with T/W. pt stated, I want to sleep. I didn't sleep enough . Pt encouraged to reach out to staff if he needs anything. Continue current tx plan. 06/01: Similar to yesterday. laying in bed. Irritable. declined to meet with T/W and pulled bed sheets over head. pt stated, I don't want to talk. I want to sleep . difficult to engage. Continue current tx plan. 06/02: Similar to yesterday. laying in bed. Irritable. declined to meet with T/W. Observed getting drink from kitchen; T/W approached pt and asked if they could speak. patient declined to acknowledge T/W and walked past. Continue current tx plan. 06/03: no change in behavior. continue tx plan. 06/04/25: Passive engaged in the assessment, in bed mostly sleeping this morning which could be interfere with his nighttime. Cover body under the blanket Slept for 4-5 hours last night. Was medication compliant, attended no groups, isolative to self in room. No SI/SIB/HI/AVH expressed. 06/05: continue tx plan. 06/06: reports feeling fine ; continues guarded. difficult to engage. declining to meet with T/W. continue tx plan. 06/07/25: Slept for 4 hours at night, but has been sleeping most of the day yesterday as well. Spent majority of the shift in bed, was medication compliant. Passive engaged in the conversation. He said he will try to change the sleeping pattern so that he can be awake more during the daytime. Appear to be sedated in the morning. No safety behavior. 06/08/25: Slept for 3-4 hours last night, compliant with medications. Denies side effects, denies other safety concerns. Continued to encourage patient to up and down more than on the unit he spent most of the day sleeping. He is pleasant upon approach. No other behavior issues. Denied voices/hallucinations. Suicide thoughts or homicidal thoughts. 06/09: sleeping, minimally rousable. denies problems. continue current mgmt. 06/10: sleeping all day, up most of the night. minimally rousable. denies problems. continue current mgmt. per JAMAICA Arrington: Jean said when he leaves he can return to [facility]. he was living with a lady there and can go back. He plans to get a job to pay off his debt. He said he owes money because they sent him back here due to losing his passport and he owes them money for the temporary emergency passport and the flight back to the . so his main focus is to get a job. he said he will try things here first and if it doesn't work out he plans to return to [place]. 06/11/25: Passively engaged in conversation while in bed sleeping/resting. Able to answer question appropriately, but seems to be minimized. Denies SI/SIB/HI/AVH. He slept 5 hours last night, spent most of the day in bed sleeping. Attempted to no groups, observed out to the afternoon in the subramanian near the nurse station. No change in presentation. Encourage groups,up and engaged in groups. 06/12: not engaging. no complaints or questions re med changes. cross-taper zyprexa in favor of invega, give MONTERO invega. tonight, decrease zyprexa to 15 mg and start invega 3 mg. otherwise continue current mgmt. 06/13: continues avoidant and disengaged. denies side effects from med change last night. informed cross-titration will advance tonight. decrease zyprexa to 10 mg tonight, increase paliperidone to 6 mg. plan to continue by 5 mg zyprexa and 3 mg paliperidone increments every several days as tolerated until zyprexa DCed and paliperidone at 12 mg QHS. once it is established pt is tolerating PO Paliperidone, invega sustenna to be administered. 06/14: Continue current regimen and plans 06/15: Continue current plans and regimen 06/16: irritable re neuroleptic change. denies side effects or problems with it, however. minimally engageable. increase invega to 9 QHS and decrfease zyprexa to 5 QHS. 06/17/25: Continued to be irritable regarding medication change/titration. However engaged in conversation, hyper verbal, paranoid, reports medication slow his thoughts down and he does not not like it. Poor insight and poor judgment. He thinks he only need lithium, not other medications. Remind patient to continue doing the sleep pattern changing. However his in bed mostly this morning. Slept for 4-5 hours last night. 06/18/25: Slept for 5 hours last night as he continues sleeping during daytime. Compliant with meds, did not c/o side effects.Passingly engaging in assessment. Denies safety concerns. Tolerate the tritation well. Will increase Inveag up to max of 12 tomorrow and Discontinue Olanzepine at HS. Continue to encourage up and out on day so he can sleep better at HS. 06/19/25: Patient slept for 5.5 hours last night, was medication compliant, mostly in his room yesterday but seen more often in the evening. Patient is awake in his room, listen to music, his morning tray was taken away and clean the area. He is very pleasant to talk to today, reports he feels good, denies side effects from medications, denies any safety concerns. Denies feeling sedation, denies anxiety/depression. He is receptive with the plan of medication over the weekends and next week, happy to hear about the medication plan. He also agree with the MONTERO Invega Sustenna on Monday. Encourage him to go out and attended to groups, he said that he will. Reported that he was out for groups a couple of times last week. Discontinue Haldol p.r.n.. Discontinue scheduled Zyprexa 5 mg at bedtime. Only on 10 Zyprexa at g IM daily p.r.n. as backup orders if refused Invega. Invega 12 mg at bedtime. Plan to monitor over the weekends and will give long-acting injection on Monday if tolerate with the p.o. well Reduce Seroquel 200 mg p.r.n. at bedtime to 100 p.r.n. at bedtime for insomnia. Seroquel 50 mg b.i.d. p.r.n. for agitation. Discontinue Motrin. Patient on lithium. Labs were for MondayJune 20: CMP, TSH with free T4. 06/20/25: In bed most of the day, was compliant with medication, however refused labs work. Re- scheduled for Monday. Continue with Invega 12 mg at bedtime. We will reassess and offer long-acting injection on Monday. Continue to encourage patient to get up and go to some groups. No safety concerns expressed. Minimal peer and staff interaction. 06/21: no change in presentation. start MONTERO monday. no s/e from invega. otherwise continue current mgmt. 06/22: stable. continue current mgmt. 06/23/25: More awake and alert. Review with patient regarding policy for his phone use BID 30min each time, patient is educated on compliant with policy. He asks for more 5-10 min extra headphone use at night on the weekends after 2300. Once again, redirected for unit rules. He agrees with MONTERO which is scheduled today. Discontinue Invega PO Invega Sustenna 234mg IM once. Will monitor for possible side effects and sedation. Will offer 156mg after 1 week. If mentaly stable with 156mg, will maintain at this dose, if not will offer 234mg Monthly. 06/24/25: Slept for 5 hours last night, but also went to bed around 7 tonight p.m. last night per his report. He also attended to groups in the afternoon yesterday. Compliant with medications. No side effects from Invega Sustenna. He is engaged in full conversation today why he is in bed, denies safety concerns. Observe he is on the unit, social with peers and staff in longer period of time. Appeared to be happy. He plans to take shower today. Reported that he was up early but he does not feel hungry in the morning. He is making progress, not too sedated during daytime since switching his medication. Appears to do well so far with Invega Sustenna. 06/25/25: Patient slept for 4 hours last night, however he reported was napping in the afternoon for couple hours which affect his sleeping pattern at night. Educate patient to not napping late in the evening. He is receptive. Compliant with medications, no side effects. He reports his did not shower yesterday but he will today. He is awake in his room not sleeping, engage in full conversation, no delusional or paranoid statements make. He is visible at times. Continued to improve in mood, engaging in other activities on the unit. Denies other safety concerns. Denies hallucinations. No irritability mood, not sedated during day time compared to when he was taking olanzapine. We will schedule Invega Sustenna 156 next Monday. Work with social services assistant to see where he will return to. He probably needs [facility] to manage medication. 06/26/25: He slept for 5 hours, compliant with medications. Denies side effects. He self-reported that he went to bed last night and was able to fall asleep by 01:00 and able to stay asleep whole night. Denies safety concerns. I spoke with him in length today regarding aftercare. He thinks he will go to the hospital in [place] to ask them regarding his heart condition. He thinks people was lying to get him to the hospital as he does not have mental health illnesses. He believes that he has been exactly the same he was seen he was a little, and at he able to remember everything in the past. He also reports that he used to use [employer] in [place]. At he does not want [facility] application. I explained to him that in order to be a candidate patient have to be a safe that he has mental health issues, so people can submit the application, and from the [facility] worker will contact him to do assessment if he qualify for any services that they can provide. Patient is receptive application, social services assistant was notified. Patient also would like to have services with [facility] in [place]. He showered yesterday morning, did not go to groups yesterday, but he will go to some groups today per his plan for the day, more awake, engaged in conversation, no irritability. However, continued to be poor insight of his illnesses. He does not want to return to his brother I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
[2025-07-30 20:00] VITALS: BP 142/96; PULSE 77; RESP 18; TEMP 36.5; O2SAT 99
[2025-07-31 08:00] VITALS: RESP 18
--- NOTE | 2025-07-31 12:38 | P.PNPSI_ITS ---
Subjective Subjective Date of Service: 07/31/25 Reason For Visit: psychotic disorder Interim History: no change in presentation. per staff, slept 8 hours. Mental Status Exam Mental Status Exam Narrative: in bed. cooperative. speech nml rate, decr amount and loudness. thoughts linear and logical. mood euthymic. no complaints. No SI/SIB/HI/AVH expressed. Diagnostics Vital Signs (24Hr): Vital Signs - 24 hr 07/30/25 20:00 07/31/25 08:00 Temperature 97.7 F Pulse Rate 77 Respiratory Rate 18 18 Blood Pressure 142/96 H Pulse Oximetry 99 Oxygen Delivery Method Room Air BMI result Body Mass Index 23.2 Labs 06/25/25 08:02 06/20/25 20:35 Medications Medications Current Medications Acetaminophen (Acetaminophen 325 Mg Tablet) 650 mg PO Q4H PRN PRN Reason: Pain, Mild (Pain Scale 1-3) Last Admin: 07/06/25 22:53 Dose: 650 mg Al Hydroxide/Mg Hydroxide (Magnesium Hydrox/Alum Hydrox 30 Ml Oral.Susp) 30 ml PO Q6H PRN PRN Reason: Heart burn Benzocaine (Benzocaine 20 % Oral Gel 14 Gm Tube) 1 appl MUCOUS MEM QID PRN; Protocol PRN Reason: Mouth Sore Pain Last Admin: 04/26/25 18:33 Dose: 1 appl Diazepam (Diazepam 10 Mg/2 Ml Cartridge) 10 mg IM BID PRN PRN Reason: refusal of lithium, per [place] Last Admin: 04/11/25 09:56 Dose: 10 mg Glycopyrrolate (Glycopyrrolate 1 Mg Tablet) 1 mg PO BID [facility] Last Admin: 07/31/25 11:16 Dose: 1 mg Hydrocortisone (Hydrocortisone 1 % Cream 28.35 Gm Tube) 1 appl TOPICAL DAILY PRN; Protocol PRN Reason: rash Last Admin: 07/17/25 23:13 Dose: 1 appl [place] Carbonate ([place] Carbonate Er 300 Mg Tablet.Er) 600 mg PO DAILY [facility] Last Admin: 07/31/25 11:17 Dose: 600 mg [place] Carbonate ([place] Carbonate Er 450 Mg Tablet.Er) 900 mg PO DAILY@2300 [facility] Last Admin: 07/30/25 23:34 Dose: 900 mg Magnesium Hydroxide (Milk Of Magnesia 30 Ml Oral.Susp) 30 ml PO DAILY PRN PRN Reason: Constipation Methimazole (Methimazole 10 Mg Tablet) 10 mg PO DAILY [facility] Last Admin: 07/31/25 11:16 Dose: 10 mg Nicotine (Nicotine 21 Mg Patch.Td24) 21 mg TRANSDERMA DAILY PRN PRN Reason: nicotine cravings Last Admin: 04/12/25 17:06 Dose: 21 mg Nicotine Polacrilex (Nicotine Polacrilex Lozenge 2 Mg Lozenge) 2 mg [place]CCAL Q1H PRN PRN Reason: Nicotine Cravings Last Admin: 04/30/25 08:49 Dose: 2 mg Patient Own Medication Excedrin 250/250/65mg 2 each PO Q8H PRN PRN Reason: Migraine Headache Last Admin: 07/16/25 22:13 Dose: 2 each Olanzapine (Olanzapine 10 Mg Vial) 10 mg IM DAILY PRN PRN Reason: if refuse Invega PO Paliperidone Palmitate (Paliperidone Palmitate 234 Mg/1.5 Ml Syringe) 234 mg IM Q30D [facility] Last Admin: 07/28/25 16:55 Dose: 234 mg Pseudoephedrine HCl (Pseudoephedrine Hcl 30 Mg Tablet) 30 mg PO Q6H PRN PRN Reason: Congestion Last Admin: 07/03/25 21:18 Dose: 30 mg Quetiapine Fumarate (Quetiapine Fumarate 100 Mg Tablet) 100 mg PO BEDTIME PRN PRN Reason: insomnia Last Admin: 07/30/25 23:37 Dose: 100 mg Quetiapine Fumarate (Quetiapine Fumarate 50 Mg Tablet) 50 mg PO BID PRN PRN Reason: agitation Last Admin: 07/23/25 22:28 Dose: 50 mg Sodium Chloride (Sodium Chloride 0.65 % Nasal 44 Ml Sprbtl) 1 spray NOSTRIL-B Q4H PRN PRN Reason: Congestion Last Admin: 07/03/25 23:03 Dose: 1 spray Allergies Allergies Allergy/AdvReac Type Severity Reaction Status Date / Time No Known Allergies Allergy Verified 03/26/25 14:24 Assessment & Plan Assessment & Plan (1) Graves disease: Status: Acute Code(s): E05.00 - Thyrotoxicosis with diffuse goiter without thyrotoxic crisis or storm Assessment and Plan: Hyperthyroidism/Graves disease. He will need follow up with endocrinology as an outpatient He will also need a primary care doctor referral as an outpatient Discussed with Dr. Bejarano, patient will need free T4 weekly Decrease Methimazole to 15 mgs daily for three days and then 10 mgs daily- discussed with patient he is aware of plan and rationale. TSH and free T4 every 4 weeks. No need to draw thyroid stimulation immunology or TSH receptor AB (2) Dental abscess: Status: Acute Code(s): K04.7 - Periapical abscess without sinus Assessment and Plan: Carious tooth/dental infection Recently treated with PEN VK 500 mg q.6 hours for 7 days Patient will need follow up with dentist on discharge for tooth extraction Motrin helping pain. (3) Becca: Status: Acute Code(s): F30.9 - Manic episode, unspecified Plan 03/26: offer lithium and seroquel for becca. continue methimazole and beta joanne for hyperthyroidism as started at [facility]. trend TFTs. 12b. 03/27: taking methimazole and beta joanne. refused HS meds last night, took morning meds today. continue to encourage medication compliance. 03/28: intermittently taking meds. wants all meds in morning. pressured, manic, paranoid delusions. encouraged to take lithium but states he will not. all meds ordered for morning. 03/29: Keeping to self. no groups. observed laying in bed listening to music on unit headphones. pleasant. Pt reports feeling good today and sleeping well. declined lithium and zyprexa. denies SI/HI/VH/AH. continue current tx plan. 03/30:Irritable. upset he was unable to use his personal hygiene products. Per nursing, pt threatened staff and squeezed tooth paste throughout unit hallway to show his frustration. Pt was able to calm down after speaking with security. declined medications. 03/31: Keeping to self. laying in bed listening to music. refused medications. calm today. Patient reports feeling great ; pt stated, nothing is wrong with me. I'm waiting so I can leave tomorrow. I'm hoping for the best . denies SI/HI/VH/AH. per nursing, slept 6 hours. Continue current tx plan. 04/01: variably calm on the unit versus highly agitated. paranoid delusions, irritability, lability continue. seems to believe MD has met him prior to the present hospitalization and is stalking him. believes brother behind conspiracy to have him psychiatrically hospitalized. has been refusing all medications, including for hyperthyroidism. informed he would be filed on. filed. continue to offer medications. 04/02: continues agitated, belittling, verbally aggressive, refusing all medications including for hyperthyroidism. continue to offer medication. 04/03: paranoid there is a conspiracy to hospitalize him. threatening to stick a stick in staff once he is released by senior technical trainer. insists his hyperthyroidism was cured at [facility]. asserts there is NOTHING wrong with him. continue to offer medication. 04/04: irritable, rejecting. verbally abuses MD and sends him away: see you on monday [in court]. continue to offer medication for thyroid condition and mental illness. 04/05 continue tx. suspicious and guarded, accusatory, verbal threats to hurt staff and peers 04/06 intrusive, posturing towards staff and peer who he thinks is not real and is an impostor, continues to make verbal threats to harm him but thinks that because he is not real he may not experience any pain. 04/07: threatening statements and behaviors of yesterday noted. pt sleeping this morning, dismissive of MD. 04/08: asleep days. committed and meds ordered by court. 04/09: on being informed of court order and MD insisting on meds, pt escalated to hurling food item in container against wall at high speed and saying he wished he could do the same to MD's head. pt eventually took court ordered meds PO. sensodyne and excedrin not available in pharmacy (pt requesting them). 04/10: continue tx. Pt accepting medication today. 04/11: Keeping to self. Lying in bed most of morning. Declined to meet with T/W. Pt stated, I'm fine. I don't need anything . Listening to headphones in room. Declined court ordered PO medications; received IM medications. Refused vital signs.continue tx plan. 04/12: got IMs yesterday, took PO this morning. sleepy, no concerns or complaints. 04/13: taking PO meds again. slept 7 hours. sleepy again mid morning refusing interview. continue current mgmt. 04/14: sleeping, rousable. denies being sedated or tired, says he's just bored. no questions or complaints. informed of need to check labs. check lithium level and thyroid labs tonight. 04/15: refusing labs. delusional re his brother harming him. verbally abusive toward MD. spat in floor. happy with improvement in proptosis. 04/16: Lying in bed. Calm. cooperative. guarded. Pt reports feeling tired this morning d/t poor sleep last night. Pt stated, I don't need anything. I didn't sleep well so I'm trying to catch up . denies any issues at this time. denies SI/HI/VH/AH. Continue current tx plan. 04/17: more calm today, less explosive. continue current mgmt. 04/18: continues more calm. tolerating moments of frustration without verbally attacking MD. slept only 2 hours overnight, however. continue current mgmt. 04/19 continues to push boundaries and limits with staff mike around cell phone- 04/20 - aggressive with staff and unpredictable- threw water pitcher at staff behind desk/-when seen by provider passive in bed-denying all compaints/sys- no insight 04/21: appears as per last week. more difficult behaviors around cell phone use, did throw pitcher of water at RN monday over phone use and was restrained. continue current mgmt. 04/22: continues to have conflict around cell phone use. consolidate zyprexa at HS to decrease daytime sedation. 1:1 allegra shift until peer he is accusing of not being a real patient and appears to be targeting discharges tomorrow. 04/23: lithium 0.6 on 600 BID. sleeping better, remains delusional (telling SW who is marginally younger than him that she could be his daughter). just changed zyprexa dosing as of last night. continue current regimen and observe for continued stabilization. T/C slight increase in lithium dosing. 04/24: Laying in bed. guarded. calm. did not want to get out of bed to meet with T/W. Pt reports feeling great today but declined to go into detail. listening to music on unit headphones. Pt stated, I'm fine. I don't need anything . denies any issues at this time. denies SI/HI/VH/AH. Continue current tx plan. 04/25: Laying in bed. keeping to self. calm. paranoid. Discussed incident that occurred with staff last evening. Pt stated, the counselor made up a lie yesterday. I said she looks like my ex-girlfriend. I know they are related. They want to make up a lie to irritate me. They are trying to talk to me so they can use recording devices and make me look some kind of way . listening to music on unit headphones. denies SI/HI/VH/AH. Continue current tx plan. 04/26: Continue current regimen and plans. Increase Zyprexa 20 mg q.h.s. fresh air break withheld 04/27: Continue current regimen and plans 04/28: somewhat less irritable and agitated than last week. however, over the weekend was claiming he was the father of a footballer on TV and also that a staff member is a twin of his ex-GF (and he pushed staff member). TFTs improving. continue current mgmt. 04/29: no change in presentation. continue current mgmt. 04/30: no irritable edge today. calm, pleasant. engaging in small talk. reality testing not pressed. continue current mgmt for now. 05/01: no change in presentation. continue current mgmt. 05/02: BPs coming down, DC beta joanne as pt has been refusing anyway. remains not antagonistic toward MD. using phone appropriately. continue current mgmt otherwise. 05/03 continue 05/04: remains delusional, irritable/labile when delusional system confronted. declines to sign TOMMY for [facility] records. continue current mgmt. 05/06: declining to meet with MD, but does meet with medical student. remains upset about yesterday's confrontation re his delusional system. 05/07: Active on unit. keeping to self. pacing unit hallway while listening to unit headphones. medication compliant. patient reports feeling good ; pt stated, I'm just waiting to leave here. I want to return to my life and do things like go grocery shopping . denies SI/HI/VH/AH. Continue current tx plan. 05/08: stable presentation, delusions not being brought to the surface daily. remains affectively improved from admission. continue current mgmt. 05/09: calm, pleasant. no questions or complaints. continue current mgmt. 05/10: no change in presentation. due to lack of improvement in dental infection Sx, DC PCN and start augmentin. 05/11: no change in presentation. continue current mgmt. 05/12: as for yesterday. dental pain improving a bit. 05/13: expressed to medical student that his brother poisoned him, causing his thyroid disease. no change in presentation. continue current mgmt. 05/14: Pacing unit hallway. keeping to self. patient reports feeling good today; denies any issues at this time. denies SI/HI/VH/AH. per nursing, slept 5 hours. Continue current tx plan. 05/15: slept 6 hours. otherwise isolative, difficult to engage. continue current mgmt. 05/16: slept 7 hours. as for yesterday otherwise. 05/17/25: Slept well, no issue with appetite, skinny and pretty tall. Compliant with medication. No side effects Calm and pleasant upon approach. Some what paranoid. Tangential, however denies other safety concerns. Questions if he is discharging soon. He is on antibiotic for 7 days for mouth pain/tooth pain. We will finish the 7 course up in antibiotic after tonight dose. Then discontinue. 05/18/25: Slept for 5 hours plus hours this morning. In bed most of the shift, no behavior issues. Denies other safety concerns. 05/19: in bed days, up eves. no change in presentation. continue current mgmt. 05/20: no change in presentation. check labs. 05/21: lithium low, TFTs mixed and not all back. increase lithium from 600 BID to 600/900. trend BUN/Cr, with slight elevation. otherwise continue current mgmt. 05/22: no change in presentation. continue current mgmt. 05/23: does not deny someone stole his sperm and impregnated his landlord's child with it. irritable. c/o dental pain, antibx restarted. otherwise continue current mgmt. 05/14: no change in mgt 05/25: more isolative today; no change in mgt 05/26: decreases in methimazole noted. continue psych regimen as is. pt refused to interact with MD today. 05/27: i'm sleeping. no change in presentation. labs tonight. 05/28: no change in behavior. lithium 0.66, BUN stable. continue current mgmt. 05/29: irritable. continue current mgmt. 05/30: no longer in single room. still not engaging, sleeping days. continue current mgmt. 05/31:laying in bed. declined to meet with T/W. pt stated, I want to sleep. I didn't sleep enough . Pt encouraged to reach out to staff if he needs anything. Continue current tx plan. 06/01: Similar to yesterday. laying in bed. Irritable. declined to meet with T/W and pulled bed sheets over head. pt stated, I don't want to talk. I want to sleep . difficult to engage. Continue current tx plan. 06/02: Similar to yesterday. laying in bed. Irritable. declined to meet with T/W. Observed getting drink from kitchen; T/W approached pt and asked if they could speak. patient declined to acknowledge T/W and walked past. Continue current tx plan. 06/03: no change in behavior. continue tx plan. 06/04/25: Passive engaged in the assessment, in bed mostly sleeping this morning which could be interfere with his nighttime. Cover body under the blanket Slept for 4-5 hours last night. Was medication compliant, attended no groups, isolative to self in room. No SI/SIB/HI/AVH expressed. 06/05: continue tx plan. 06/06: reports feeling fine ; continues guarded. difficult to engage. declining to meet with T/W. continue tx plan. 06/07/25: Slept for 4 hours at night, but has been sleeping most of the day yesterday as well. Spent majority of the shift in bed, was medication compliant. Passive engaged in the conversation. He said he will try to change the sleeping pattern so that he can be awake more during the daytime. Appear to be sedated in the morning. No safety behavior. 06/08/25: Slept for 3-4 hours last night, compliant with medications. Denies side effects, denies other safety concerns. Continued to encourage patient to up and down more than on the unit he spent most of the day sleeping. He is pleasant upon approach. No other behavior issues. Denied voices/hallucinations. Suicide thoughts or homicidal thoughts. 06/09: sleeping, minimally rousable. denies problems. continue current mgmt. 06/10: sleeping all day, up most of the night. minimally rousable. denies problems. continue current mgmt. per JAMAICA Arrington: Jean said when he leaves he can return to [facility]. he was living with a lady there and can go back. He plans to get a job to pay off his debt. He said he owes money because they sent him back here due to losing his passport and he owes them money for the temporary emergency passport and the flight back to the . so his main focus is to get a job. he said he will try things here first and if it doesn't work out he plans to return to [place]. 06/11/25: Passively engaged in conversation while in bed sleeping/resting. Able to answer question appropriately, but seems to be minimized. Denies SI/SIB/HI/AVH. He slept 5 hours last night, spent most of the day in bed sleeping. Attempted to no groups, observed out to the afternoon in the subramanian near the nurse station. No change in presentation. Encourage groups,up and engaged in groups. 06/12: not engaging. no complaints or questions re med changes. cross-taper zyprexa in favor of invega, give MONTERO invega. tonight, decrease zyprexa to 15 mg and start invega 3 mg. otherwise continue current mgmt. 06/13: continues avoidant and disengaged. denies side effects from med change last night. informed cross-titration will advance tonight. decrease zyprexa to 10 mg tonight, increase paliperidone to 6 mg. plan to continue by 5 mg zyprexa and 3 mg paliperidone increments every several days as tolerated until zyprexa DCed and paliperidone at 12 mg QHS. once it is established pt is tolerating PO Paliperidone, invega sustenna to be administered. 06/14: Continue current regimen and plans 06/15: Continue current plans and regimen 06/16: irritable re neuroleptic change. denies side effects or problems with it, however. minimally engageable. increase invega to 9 QHS and decrfease zyprexa to 5 QHS. 06/17/25: Continued to be irritable regarding medication change/titration. However engaged in conversation, hyper verbal, paranoid, reports medication slow his thoughts down and he does not not like it. Poor insight and poor judgment. He thinks he only need lithium, not other medications. Remind patient to continue doing the sleep pattern changing. However his in bed mostly this morning. Slept for 4-5 hours last night. 06/18/25: Slept for 5 hours last night as he continues sleeping during daytime. Compliant with meds, did not c/o side effects.Passingly engaging in assessment. Denies safety concerns. Tolerate the tritation well. Will increase Inveag up to max of 12 tomorrow and Discontinue Olanzepine at HS. Continue to encourage up and out on day so he can sleep better at HS. 06/19/25: Patient slept for 5.5 hours last night, was medication compliant, mostly in his room yesterday but seen more often in the evening. Patient is awake in his room, listen to music, his morning tray was taken away and clean the area. He is very pleasant to talk to today, reports he feels good, denies side effects from medications, denies any safety concerns. Denies feeling sedation, denies anxiety/depression. He is receptive with the plan of medication over the weekends and next week, happy to hear about the medication plan. He also agree with the MONTERO Invega Sustenna on Monday. Encourage him to go out and attended to groups, he said that he will. Reported that he was out for groups a couple of times last week. Discontinue Haldol p.r.n.. Discontinue scheduled Zyprexa 5 mg at bedtime. Only on 10 Zyprexa at g IM daily p.r.n. as backup orders if refused Invega. Invega 12 mg at bedtime. Plan to monitor over the weekends and will give long- acting injection on Monday if tolerate with the p.o. well Reduce Seroquel 200 mg p.r.n. at bedtime to 100 p.r.n. at bedtime for insomnia. Seroquel 50 mg b.i.d. p.r.n. for agitation. Discontinue Motrin. Patient on lithium. Labs were for MondayJune 20: CMP, TSH with free T4. 06/20/25: In bed most of the day, was compliant with medication, however refused labs work. Re- scheduled for Monday. Continue with Invega 12 mg at bedtime. We will reassess and offer long-acting injection on Monday. Continue to encourage patient to get up and go to some groups. No safety concerns expressed. Minimal peer and staff interaction. 06/21: no change in presentation. start MONTERO monday. no s/e from invega. otherwise continue current mgmt. 06/22: stable. continue current mgmt. 06/23/25: More awake and alert. Review with patient regarding policy for his phone use BID 30min each time, patient is educated on compliant with policy. He asks for more 5-10 min extra headphone use at night on the weekends after 2300. Once again, redirected for unit rules. He agrees with MONTERO which is scheduled today. Discontinue Invega PO Invega Sustenna 234mg IM once. Will monitor for possible side effects and sedation. Will offer 156mg after 1 week. If mentaly stable with 156mg, will maintain at this dose, if not will offer 234mg Monthly. 06/24/25: Slept for 5 hours last night, but also went to bed around 7 tonight p.m. last night per his report. He also attended to groups in the afternoon yesterday. Compliant with medications. No side effects from Invega Sustenna. He is engaged in full conversation today why he is in bed, denies safety concerns. Observe he is on the unit, social with peers and staff in longer period of time. Appeared to be happy. He plans to take shower today. Reported that he was up early but he does not feel hungry in the morning. He is making progress, not too sedated during daytime since switching his medication. Appears to do well so far with Invega Sustenna. 06/25/25: Patient slept for 4 hours last night, however he reported was napping in the afternoon for couple hours which affect his sleeping pattern at night. Educate patient to not napping late in the evening. He is receptive. Compliant with medications, no side effects. He reports his did not shower yesterday but he will today. He is awake in his room not sleeping, engage in full conversation, no delusional or paranoid statements make. He is visible at times. Continued to improve in mood, engaging in other activities on the unit. Denies other safety concerns. Denies hallucinations. No irritability mood, not sedated during day time compared to when he was taking olanzapine. We will schedule Invega Sustenna 156 next Monday. Work with social services coordinator to see where he will return to. He probably needs [facility] to manage medication. 06/26/25: He slept for 5 hours, compliant with medications. Denies side effects. He self-reported that he went to bed last night and was able to fall asleep by 01:00 and able to stay asleep whole night. Denies safety concerns. I spoke with him in length today regarding aftercare. He thinks he will go to the hospital in [place] to ask them regarding his heart condition. He thinks people was lying to get him to the hospital as he does not have mental health illnesses. He believes that he has been exactly the same he was seen he was a little, and at he able to remember everything in the past. He also reports that he used to use [employer] [employer] [facility] in [place]. At he does not want [facility] application. I explained to him that in order to be a candidate patient have to be a safe that he has mental health issues, so people can submit the application, and from the [facility] worker will contact him to do assessment if he qualify for any services that they can provide. Patient is receptive application, social services coordinator was notified. Patient also would like to have services with [facility] [facility] in [place]. He showered yesterday morning, did not go to groups yesterday, but he will go to some groups today per his plan for the day, more awake, engaged in conversation, no irritability. However, continued to be poor insight of his illnesses. He does not want to return to his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
[2025-07-31] MEDS: Hydrocortisone 1 % Cream 28.35 GM TUBE 1 APPL TOPICAL (17:37)
[2025-07-31 20:00] VITALS: BP 134/68; PULSE 95; RESP 18; TEMP 37; O2SAT 99
[2025-08-01] MEDS: EXCEDRIN 2 EACH PO (04:05)
[2025-08-01 08:24] VITALS: BP 142/82; PULSE 81; RESP 18; TEMP 36.7; O2SAT 99
--- NOTE | 2025-08-01 12:53 | P.PNPSI_ITS ---
Subjective Subjective Date of Service: 08/01/25 Reason For Visit: psychotic disorder Interim History: no change in presentation. tells MD we may be in touch with his brother re dispo planning. per staff, no change. Mental Status Exam Mental Status Exam Narrative: in bed. cooperative. speech nml rate, decr amount and loudness. thoughts linear and logical. mood euthymic. no complaints. No SI/SIB/HI/AVH expressed. Diagnostics Vital Signs (24Hr): Vital Signs - 24 hr 07/31/25 20:00 08/01/25 08:24 Temperature 98.6 F 98.0 F Pulse Rate 95 81 Respiratory Rate 18 18 Blood Pressure 134/68 142/82 H Pulse Oximetry 99 99 Oxygen Delivery Method Room Air Room Air BMI result Body Mass Index 23.2 Labs 06/25/25 08:02 06/20/25 20:35 Medications Medications Current Medications Acetaminophen (Acetaminophen 325 Mg Tablet) 650 mg PO Q4H PRN PRN Reason: Pain, Mild (Pain Scale 1-3) Last Admin: 07/06/25 22:53 Dose: 650 mg Al Hydroxide/Mg Hydroxide (Magnesium Hydrox/Alum Hydrox 30 Ml Oral.Susp) 30 ml PO Q6H PRN PRN Reason: Heart burn Benzocaine (Benzocaine 20 % Oral Gel 14 Gm Tube) 1 appl MUCOUS MEM QID PRN; Protocol PRN Reason: Mouth Sore Pain Last Admin: 04/26/25 18:33 Dose: 1 appl Diazepam (Diazepam 10 Mg/2 Ml Cartridge) 10 mg IM BID PRN PRN Reason: refusal of lithium, mary floyd Last Admin: 04/11/25 09:56 Dose: 10 mg Glycopyrrolate (Glycopyrrolate 1 Mg Tablet) 1 mg PO BID [facility] Last Admin: 08/01/25 08:18 Dose: 1 mg Hydrocortisone (Hydrocortisone 1 % Cream 28.35 Gm Tube) 1 appl TOPICAL DAILY PRN; Protocol PRN Reason: rash Last Admin: 07/31/25 17:37 Dose: 1 appl Manzano Carbonate (Manzano Carbonate Er 300 Mg Tablet.Er) 600 mg PO DAILY [facility] Last Admin: 08/01/25 08:18 Dose: 600 mg Manzano Carbonate (Manzano Carbonate Er 450 Mg Tablet.Er) 900 mg PO DAILY@2300 [facility] Last Admin: 07/31/25 23:11 Dose: 900 mg Magnesium Hydroxide (Milk Of Magnesia 30 Ml Oral.Susp) 30 ml PO DAILY PRN PRN Reason: Constipation Methimazole (Methimazole 10 Mg Tablet) 10 mg PO DAILY [facility] Last Admin: 08/01/25 08:18 Dose: 10 mg Nicotine (Nicotine 21 Mg Patch.Td24) 21 mg TRANSDERMA DAILY PRN PRN Reason: nicotine cravings Last Admin: 04/12/25 17:06 Dose: 21 mg Nicotine Polacrilex (Nicotine Polacrilex Lozenge 2 Mg Lozenge) 2 mg BUCCAL Q1H PRN PRN Reason: Nicotine Cravings Last Admin: 04/30/25 08:49 Dose: 2 mg Patient Own Medication Excedrin 250/250/65mg 2 each PO Q8H PRN PRN Reason: Migraine Headache Last Admin: 08/01/25 04:05 Dose: 2 each Olanzapine (Olanzapine 10 Mg Vial) 10 mg IM DAILY PRN PRN Reason: if refuse Invega PO Paliperidone Palmitate (Paliperidone Palmitate 234 Mg/1.5 Ml Syringe) 234 mg IM Q30D [facility] Last Admin: 07/28/25 16:55 Dose: 234 mg Pseudoephedrine HCl (Pseudoephedrine Hcl 30 Mg Tablet) 30 mg PO Q6H PRN PRN Reason: Congestion Last Admin: 07/03/25 21:18 Dose: 30 mg Quetiapine Fumarate (Quetiapine Fumarate 100 Mg Tablet) 100 mg PO BEDTIME PRN PRN Reason: insomnia Last Admin: 07/31/25 23:09 Dose: 100 mg Quetiapine Fumarate (Quetiapine Fumarate 50 Mg Tablet) 50 mg PO BID PRN PRN Reason: agitation Last Admin: 07/23/25 22:28 Dose: 50 mg Sodium Chloride (Sodium Chloride 0.65 % Nasal 44 Ml Sprbtl) 1 spray NOSTRIL-B Q4H PRN PRN Reason: Congestion Last Admin: 07/03/25 23:03 Dose: 1 spray Allergies Allergies Allergy/AdvReac Type Severity Reaction Status Date / Time No Known Allergies Allergy Verified 03/26/25 14:24 Assessment & Plan Assessment & Plan (1) Graves disease: Status: Acute Code(s): E05.00 - Thyrotoxicosis with diffuse goiter without thyrotoxic crisis or storm Assessment and Plan: Hyperthyroidism/Graves disease. He will need follow up with endocrinology as an outpatient He will also need a primary care doctor referral as an outpatient Discussed with Dr. Bejraano, patient will need free T4 weekly Decrease Methimazole to 15 mgs daily for three days and then 10 mgs daily- discussed with patient he is aware of plan and rationale. TSH and free T4 every 4 weeks. No need to draw thyroid stimulation immunology or TSH receptor AB (2) Dental abscess: Status: Acute Code(s): K04.7 - Periapical abscess without sinus Assessment and Plan: Carious tooth/dental infection Recently treated with PEN VK 500 mg q.6 hours for 7 days Patient will need follow up with dentist on discharge for tooth extraction Motrin helping pain. (3) Becca: Status: Acute Code(s): F30.9 - Manic episode, unspecified Plan 03/26: offer lithium and seroquel for becca. continue methimazole and beta joanne for hyperthyroidism as started at [facility]. trend TFTs. 12b. 03/27: taking methimazole and beta joanne. refused HS meds last night, took morning meds today. continue to encourage medication compliance. 03/28: intermittently taking meds. wants all meds in morning. pressured, manic, paranoid delusions. encouraged to take lithium but states he will not. all meds ordered for morning. 03/29: Keeping to self. no groups. observed laying in bed listening to music on unit headphones. pleasant. Pt reports feeling good today and sleeping well. declined lithium and zyprexa. denies SI/HI/VH/AH. continue current tx plan. 03/30:Irritable. upset he was unable to use his personal hygiene products. Per nursing, pt threatened staff and squeezed tooth paste throughout unit hallway to show his frustration. Pt was able to calm down after speaking with security. declined medications. 03/31: Keeping to self. laying in bed listening to music. refused medications. calm today. Patient reports feeling great ; pt stated, nothing is wrong with me. I'm waiting so I can leave tomorrow. I'm hoping for the best . denies SI/HI/VH/AH. per nursing, slept 6 hours. Continue current tx plan. 04/01: variably calm on the unit versus highly agitated. paranoid delusions, irritability, lability continue. seems to believe MD has met him prior to the present hospitalization and is stalking him. believes brother behind conspiracy to have him psychiatrically hospitalized. has been refusing all medications, including for hyperthyroidism. informed he would be filed on. filed. continue to offer medications. 04/02: continues agitated, belittling, verbally aggressive, refusing all medications including for hyperthyroidism. continue to offer medication. 04/03: paranoid there is a conspiracy to hospitalize him. threatening to stick a stick in staff once he is released by expedition supervisor. insists his hyperthyroidism was cured at [facility]. asserts there is NOTHING wrong with him. continue to offer medication. 04/04: irritable, rejecting. verbally abuses MD and sends him away: see you on monday [in court]. continue to offer medication for thyroid condition and mental illness. 04/05 continue tx. suspicious and guarded, accusatory, verbal threats to hurt staff and peers 04/06 intrusive, posturing towards staff and peer who he thinks is not real and is an impostor, continues to make verbal threats to harm him but thinks that because he is not real he may not experience any pain. 04/07: threatening statements and behaviors of yesterday noted. pt sleeping this morning, dismissive of MD. 04/08: asleep days. committed and meds ordered by court. 04/09: on being informed of court order and MD insisting on meds, pt escalated to hurling food item in container against wall at high speed and saying he wished he could do the same to MD's head. pt eventually took court ordered meds PO. sensodyne and excedrin not available in pharmacy (pt requesting them). 04/10: continue tx. Pt accepting medication today. 04/11: Keeping to self. Lying in bed most of morning. Declined to meet with T/W. Pt stated, I'm fine. I don't need anything . Listening to headphones in room. Declined court ordered PO medications; received IM medications. Refused vital signs.continue tx plan. 04/12: got IMs yesterday, took PO this morning. sleepy, no concerns or complaints. 04/13: taking PO meds again. slept 7 hours. sleepy again mid morning refusing interview. continue current mgmt. 04/14: sleeping, rousable. denies being sedated or tired, says he's just bored. no questions or complaints. informed of need to check labs. check lithium level and thyroid labs tonight. 04/15: refusing labs. delusional re his brother harming him. verbally abusive toward MD. spat in floor. happy with improvement in proptosis. 04/16: Lying in bed. Calm. cooperative. guarded. Pt reports feeling tired this morning d/t poor sleep last night. Pt stated, I don't need anything. I didn't sleep well so I'm trying to catch up . denies any issues at this time. denies SI/HI/VH/AH. Continue current tx plan. 04/17: more calm today, less explosive. continue current mgmt. 04/18: continues more calm. tolerating moments of frustration without verbally attacking MD. slept only 2 hours overnight, however. continue current mgmt. 04/19 continues to push boundaries and limits with staff mike around cell phone- 04/20 - aggressive with staff and unpredictable- threw water pitcher at staff behind desk/-when seen by provider passive in bed-denying all compaints/sys- no insight 04/21: appears as per last week. more difficult behaviors around cell phone use, did throw pitcher of water at RN monday over phone use and was restrained. continue current mgmt. 04/22: continues to have conflict around cell phone use. consolidate zyprexa at HS to decrease daytime sedation. 1:1 allegra shift until peer he is accusing of not being a real patient and appears to be targeting discharges tomorrow. 04/23: lithium 0.6 on 600 BID. sleeping better, remains delusional (telling SW who is marginally younger than him that she could be his daughter). just changed zyprexa dosing as of last night. continue current regimen and observe for continued stabilization. T/C slight increase in lithium dosing. 04/24: Laying in bed. guarded. calm. did not want to get out of bed to meet with T/W. Pt reports feeling great today but declined to go into detail. listening to music on unit headphones. Pt stated, I'm fine. I don't need anything . denies any issues at this time. denies SI/HI/VH/AH. Continue current tx plan. 04/25: Laying in bed. keeping to self. calm. paranoid. Discussed incident that occurred with staff last evening. Pt stated, the counselor made up a lie yesterday. I said she looks like my ex-girlfriend. I know they are related. They want to make up a lie to irritate me. They are trying to talk to me so they can use recording devices and make me look some kind of way . listening to music on unit headphones. denies SI/HI/VH/AH. Continue current tx plan. 04/26: Continue current regimen and plans. Increase Zyprexa 20 mg q.h.s. fresh air break withheld 04/27: Continue current regimen and plans 04/28: somewhat less irritable and agitated than last week. however, over the weekend was claiming he was the father of a footballer on TV and also that a staff member is a twin of his ex-GF (and he pushed staff member). TFTs improving. continue current mgmt. 04/29: no change in presentation. continue current mgmt. 04/30: no irritable edge today. calm, pleasant. engaging in small talk. reality testing not pressed. continue current mgmt for now. 05/01: no change in presentation. continue current mgmt. 05/02: BPs coming down, DC beta joanne as pt has been refusing anyway. remains not antagonistic toward MD. using phone appropriately. continue current mgmt otherwise. 05/03 continue 05/04: remains delusional, irritable/labile when delusional system confronted. declines to sign TOMMY for [facility] records. continue current mgmt. 05/06: declining to meet with MD, but does meet with medical student. remains upset about yesterday's confrontation re his delusional system. 05/07: Active on unit. keeping to self. pacing unit hallway while listening to unit headphones. medication compliant. patient reports feeling good ; pt stated, I'm just waiting to leave here. I want to return to my life and do things like go grocery shopping . denies SI/HI/VH/AH. Continue current tx plan. 05/08: stable presentation, delusions not being brought to the surface daily. remains affectively improved from admission. continue current mgmt. 05/09: calm, pleasant. no questions or complaints. continue current mgmt. 05/10: no change in presentation. due to lack of improvement in dental infection Sx, DC PCN and start augmentin. 05/11: no change in presentation. continue current mgmt. 05/12: as for yesterday. dental pain improving a bit. 05/13: expressed to medical student that his brother poisoned him, causing his thyroid disease. no change in presentation. continue current mgmt. 05/14: Pacing unit hallway. keeping to self. patient reports feeling good today; denies any issues at this time. denies SI/HI/VH/AH. per nursing, slept 5 hours. Continue current tx plan. 05/15: slept 6 hours. otherwise isolative, difficult to engage. continue current mgmt. 05/16: slept 7 hours. as for yesterday otherwise. 05/17/25: Slept well, no issue with appetite, skinny and pretty tall. Compliant with medication. No side effects Calm and pleasant upon approach. Some what paranoid. Tangential, however denies other safety concerns. Questions if he is discharging soon. He is on antibiotic for 7 days for mouth pain/tooth pain. We will finish the 7 course up in antibiotic after tonight dose. Then discontinue. 05/18/25: Slept for 5 hours plus hours this morning. In bed most of the shift, no behavior issues. Denies other safety concerns. 05/19: in bed days, up eves. no change in presentation. continue current mgmt. 05/20: no change in presentation. check labs. 05/21: lithium low, TFTs mixed and not all back. increase lithium from 600 BID to 600/900. trend BUN/Cr, with slight elevation. otherwise continue current mgmt. 05/22: no change in presentation. continue current mgmt. 05/23: does not deny someone stole his sperm and impregnated his landlord's child with it. irritable. c/o dental pain, antibx restarted. otherwise continue current mgmt. 05/14: no change in mgt 05/25: more isolative today; no change in mgt 05/26: decreases in methimazole noted. continue psych regimen as is. pt refused to interact with MD today. 05/27: i'm sleeping. no change in presentation. labs tonight. 05/28: no change in behavior. lithium 0.66, BUN stable. continue current mgmt. 05/29: irritable. continue current mgmt. 05/30: no longer in single room. still not engaging, sleeping days. continue current mgmt. 05/31:laying in bed. declined to meet with T/W. pt stated, I want to sleep. I didn't sleep enough . Pt encouraged to reach out to staff if he needs anything. Continue current tx plan. 06/01: Similar to yesterday. laying in bed. Irritable. declined to meet with T/W and pulled bed sheets over head. pt stated, I don't want to talk. I want to sleep . difficult to engage. Continue current tx plan. 06/02: Similar to yesterday. laying in bed. Irritable. declined to meet with T/W. Observed getting drink from kitchen; T/W approached pt and asked if they could speak. patient declined to acknowledge T/W and walked past. Continue current tx plan. 06/03: no change in behavior. continue tx plan. 06/04/25: Passive engaged in the assessment, in bed mostly sleeping this morning which could be interfere with his nighttime. Cover body under the blanket Slept for 4-5 hours last night. Was medication compliant, attended no groups, isolative to self in room. No SI/SIB/HI/AVH expressed. 06/05: continue tx plan. 06/06: reports feeling fine ; continues guarded. difficult to engage. declining to meet with T/W. continue tx plan. 06/07/25: Slept for 4 hours at night, but has been sleeping most of the day yesterday as well. Spent majority of the shift in bed, was medication compliant. Passive engaged in the conversation. He said he will try to change the sleeping pattern so that he can be awake more during the daytime. Appear to be sedated in the morning. No safety behavior. 06/08/25: Slept for 3-4 hours last night, compliant with medications. Denies side effects, denies other safety concerns. Continued to encourage patient to up and down more than on the unit he spent most of the day sleeping. He is pleasant upon approach. No other behavior issues. Denied voices/hallucinations. Suicide thoughts or homicidal thoughts. 06/09: sleeping, minimally rousable. denies problems. continue current mgmt. 06/10: sleeping all day, up most of the night. minimally rousable. denies problems. continue current mgmt. per JAMAICA Arrington: Jean said when he leaves he can return to [facility]. he was living with a lady there and can go back. He plans to get a job to pay off his debt. He said he owes money because they sent him back here due to losing his passport and he owes them money for the temporary emergency passport and the flight back to the . so his main focus is to get a job. he said he will try things here first and if it doesn't work out he plans to return to [place]. 06/11/25: Passively engaged in conversation while in bed sleeping/resting. Able to answer question appropriately, but seems to be minimized. Denies SI/SIB/HI/AVH. He slept 5 hours last night, spent most of the day in bed sleeping. Attempted to no groups, observed out to the afternoon in the subramanian near the nurse station. No change in presentation. Encourage groups,up and engaged in groups. 06/12: not engaging. no complaints or questions re med changes. cross-taper zyprexa in favor of invega, give MONTERO invega. tonight, decrease zyprexa to 15 mg and start invega 3 mg. otherwise continue current mgmt. 06/13: continues avoidant and disengaged. denies side effects from med change last night. informed cross-titration will advance tonight. decrease zyprexa to 10 mg tonight, increase paliperidone to 6 mg. plan to continue by 5 mg zyprexa and 3 mg paliperidone increments every several days as tolerated until zyprexa DCed and paliperidone at 12 mg QHS. once it is established pt is tolerating PO Paliperidone, invega sustenna to be administered. 06/14: Continue current regimen and plans 06/15: Continue current plans and regimen 06/16: irritable re neuroleptic change. denies side effects or problems with it, however. minimally engageable. increase invega to 9 QHS and decrfease zyprexa to 5 QHS. 06/17/25: Continued to be irritable regarding medication change/titration. However engaged in conversation, hyper verbal, paranoid, reports medication slow his thoughts down and he does not not like it. Poor insight and poor judgment. He thinks he only need lithium, not other medications. Remind patient to continue doing the sleep pattern changing. However his in bed mostly this morning. Slept for 4-5 hours last night. 06/18/25: Slept for 5 hours last night as he continues sleeping during daytime. Compliant with meds, did not c/o side effects.Passingly engaging in assessment. Denies safety concerns. Tolerate the tritation well. Will increase Inveag up to max of 12 tomorrow and Discontinue Olanzepine at HS. Continue to encourage up and out on day so he can sleep better at HS. 06/19/25: Patient slept for 5.5 hours last night, was medication compliant, mostly in his room yesterday but seen more often in the evening. Patient is awake in his room, listen to music, his morning tray was taken away and clean the area. He is very pleasant to talk to today, reports he feels good, denies side effects from medications, denies any safety concerns. Denies feeling sedation, denies anxiety/depression. He is receptive with the plan of medication over the weekends and next week, happy to hear about the medication plan. He also agree with the MONTERO Invega Sustenna on Monday. Encourage him to go out and attended to groups, he said that he will. Reported that he was out for groups a couple of times last week. Discontinue Haldol p.r.n.. Discontinue scheduled Zyprexa 5 mg at bedtime. Only on Zyprexa at g IM daily p.r.n. as backup orders if refused Invega. Invega 12 mg at bedtime. Plan to monitor over the weekends and will give long- acting injection on Monday if tolerate with the p.o. well Reduce Seroquel 200 mg p.r.n. at bedtime to 100 p.r.n. at bedtime for insomnia. Seroquel 50 mg b.i.d. p.r.n. for agitation. Discontinue Motrin. Patient on lithium. Labs were for MondayJune 20: CMP, TSH with free T4. 06/20/25: In bed most of the day, was compliant with medication, however refused labs work. Re- scheduled for Monday. Continue with Invega 12 mg at bedtime. We will reassess and offer long-acting injection on Monday. Continue to encourage patient to get up and go to some groups. No safety concerns expressed. Minimal peer and staff interaction. 06/21: no change in presentation. start MONTERO monday. no s/e from invega. otherwise continue current mgmt. 06/22: stable. continue current mgmt. 06/23/25: More awake and alert. Review with patient regarding policy for his phone use BID 30min each time, patient is educated on compliant with policy. He asks for more 5-10 min extra headphone use at night on the weekends after [id number]. Once again, redirected for unit rules. He agrees with MONTERO which is scheduled today. Discontinue Invega PO Invega Sustenna 234mg IM once. Will monitor for possible side effects and sedation. Will offer 156mg after 1 week. If mentaly stable with 156mg, will maintain at this dose, if not will offer 234mg Monthly. 06/24/25: Slept for 5 hours last night, but also went to bed around 7 tonight p.m. last night per his report. He also attended to groups in the afternoon yesterday. Compliant with medications. No side effects from Invega Sustenna. He is engaged in full conversation today why he is in bed, denies safety concerns. Observe he is on the unit, social with peers and staff in longer period of time. Appeared to be happy. He plans to take shower today. Reported that he was up early but he does not feel hungry in the morning. He is making progress, not too sedated during daytime since switching his medication. Appears to do well so far with Invega Sustenna. 06/25/25: Patient slept for 4 hours last night, however he reported was napping in the afternoon for couple hours which affect his sleeping pattern at night. Educate patient to not napping late in the evening. He is receptive. Compliant with medications, no side effects. He reports his did not shower yesterday but he will today. He is awake in his room not sleeping, engage in full conversation, no delusional or paranoid statements make. He is visible at times. Continued to improve in mood, engaging in other activities on the unit. Denies other safety concerns. Denies hallucinations. No irritability mood, not sedated during day time compared to when he was taking olanzapine. We will schedule Invega Sustenna 156 next Monday. Work with social welfare administrator to see where he will return to. He probably needs [facility] to manage medication. 06/26/25: He slept for 5 hours, compliant with medications. Denies side effects. He self-reported that he went to bed last night and was able to fall asleep by 01:00 and able to stay asleep whole night. Denies safety concerns. I spoke with him in length today regarding aftercare. He thinks he will go to the hospital in [place] to ask them regarding his heart condition. He thinks people was lying to get him to the hospital as he does not have mental health illnesses. He believes that he has been exactly the same he was seen he was a little, and at he able to remember everything in the past. He also reports that he used to use [facility] in [place]. At he does not want [facility] application. I explained to him that in order to be a candidate patient have to be a safe that he has mental health issues, so people can submit the application, and from the [facility] worker will contact him to do assessment if he qualify for any services that they can provide. Patient is receptive application, social welfare administrator was notified. Patient also would like to have services with [facility] in [place]. He showered yesterday morning, did not go to groups yesterday, but he will go to some groups today per his plan for the day, more awake, engaged in conversation, no irritability. However, continued to be poor insight of his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
[2025-08-01 20:14] VITALS: BP 109/53; PULSE 79; RESP 16; TEMP 36.6; O2SAT 99
[2025-08-02 19:46] VITALS: BP 155/77; PULSE 86; RESP 16; TEMP 36.7; O2SAT 98
--- NOTE | 2025-08-02 20:31 | HO.PSYCHPN ---
Subjective Subjective Date of Service: 08/02/25 Reason For Visit: psychotic disorder Interim History: no change in presentation. per staff, pleasant, cooperative. isolative. slept 7 hours. no issues. Mental Status Exam Mental Status Exam Narrative: in bed. cooperative. speech nml rate, decr amount and loudness. thoughts linear and logical. mood euthymic. no complaints. No SI/SIB/HI/AVH expressed. Diagnostics Vital Signs (24Hr): Vital Signs - 24 hr 08/02/25 19:46 Temperature 98.1 F Pulse Rate 86 Respiratory Rate 16 Blood Pressure 155/77 H Pulse Oximetry 98 Oxygen Delivery Method Room Air BMI result Body Mass Index 23.2 Labs 06/25/25 08:02 06/20/25 20:35 Medications Medications Current Medications Acetaminophen (Acetaminophen 325 Mg Tablet) 650 mg PO Q4H PRN PRN Reason: Pain, Mild (Pain Scale 1-3) Last Admin: 07/06/25 22:53 Dose: 650 mg Al Hydroxide/Mg Hydroxide (Magnesium Hydrox/Alum Hydrox 30 Ml Oral.Susp) 30 ml PO Q6H PRN PRN Reason: Heart burn Benzocaine (Benzocaine 20 % Oral Gel 14 Gm Tube) 1 appl MUCOUS MEM QID PRN; Protocol PRN Reason: Mouth Sore Pain Last Admin: 04/26/25 18:33 Dose: 1 appl Diazepam (Diazepam 10 Mg/2 Ml Cartridge) 10 mg IM BID PRN PRN Reason: refusal of lithium, per [place] Last Admin: 04/11/25 09:56 Dose: 10 mg Glycopyrrolate (Glycopyrrolate 1 Mg Tablet) 1 mg PO BID [facility] Last Admin: 08/02/25 08:31 Dose: 1 mg Hydrocortisone (Hydrocortisone 1 % Cream 28.35 Gm Tube) 1 appl TOPICAL DAILY PRN; Protocol PRN Reason: rash Last Admin: 07/31/25 17:37 Dose: 1 appl [place] Carbonate ([place] Carbonate Er 300 Mg Tablet.Er) 600 mg PO DAILY [facility] Last Admin: 08/02/25 08:31 Dose: 600 mg [place] Carbonate ([place] Carbonate Er 450 Mg Tablet.Er) 900 mg PO DAILY@2300 [facility] Last Admin: 08/01/25 23:13 Dose: 900 mg Magnesium Hydroxide (Milk Of Magnesia 30 Ml Oral.Susp) 30 ml PO DAILY PRN PRN Reason: Constipation Methimazole (Methimazole 10 Mg Tablet) 10 mg PO DAILY [facility] Last Admin: 08/02/25 08:31 Dose: 10 mg Nicotine (Nicotine 21 Mg Patch.Td24) 21 mg TRANSDERMA DAILY PRN PRN Reason: nicotine cravings Last Admin: 04/12/25 17:06 Dose: 21 mg Nicotine Polacrilex (Nicotine Polacrilex Lozenge 2 Mg Lozenge) 2 mg BUCCAL Q1H PRN PRN Reason: Nicotine Cravings Last Admin: 04/30/25 08:49 Dose: 2 mg Patient Own Medication Excedrin 250/250/65mg 2 each PO Q8H PRN PRN Reason: Migraine Headache Last Admin: 08/01/25 04:05 Dose: 2 each Olanzapine (Olanzapine 10 Mg Vial) 10 mg IM DAILY PRN PRN Reason: if refuse Invega PO Paliperidone Palmitate (Paliperidone Palmitate 234 Mg/1.5 Ml Syringe) 234 mg IM Q30D [facility] Last Admin: 07/28/25 16:55 Dose: 234 mg Pseudoephedrine HCl (Pseudoephedrine Hcl 30 Mg Tablet) 30 mg PO Q6H PRN PRN Reason: Congestion Last Admin: 07/03/25 21:18 Dose: 30 mg Quetiapine Fumarate (Quetiapine Fumarate 100 Mg Tablet) 100 mg PO BEDTIME PRN PRN Reason: insomnia Last Admin: 08/01/25 23:13 Dose: 100 mg Quetiapine Fumarate (Quetiapine Fumarate 50 Mg Tablet) 50 mg PO BID PRN PRN Reason: agitation Last Admin: 07/23/25 22:28 Dose: 50 mg Sodium Chloride (Sodium Chloride 0.65 % Nasal 44 Ml Sprbtl) 1 spray NOSTRIL-B Q4H PRN PRN Reason: Congestion Last Admin: 07/03/25 23:03 Dose: 1 spray Allergies Allergies Allergy/AdvReac Type Severity Reaction Status Date / Time No Known Allergies Allergy Verified 03/26/25 14:24 Assessment & Plan Assessment & Plan (1) Graves disease: Status: Acute Code(s): E05.00 - Thyrotoxicosis with diffuse goiter without thyrotoxic crisis or storm Assessment and Plan: Hyperthyroidism/Graves disease. He will need follow up with endocrinology as an outpatient He will also need a primary care doctor referral as an outpatient Discussed with Dr. Bejarano, patient will need free T4 weekly Decrease Methimazole to 15 mgs daily for three days and then 10 mgs daily- discussed with patient he is aware of plan and rationale. TSH and free T4 every 4 weeks. No need to draw thyroid stimulation immunology or TSH receptor AB (2) Dental abscess: Status: Acute Code(s): K04.7 - Periapical abscess without sinus Assessment and Plan: Carious tooth/dental infection Recently treated with PEN VK 500 mg q.6 hours for 7 days Patient will need follow up with dentist on discharge for tooth extraction Motrin helping pain. (3) Becca: Status: Acute Code(s): F30.9 - Manic episode, unspecified Plan 03/26: offer lithium and seroquel for becca. continue methimazole and beta joanne for hyperthy[place] as [place] [facility] [place] trend TFTs. 12b. 03/27: taking methimazole and beta joanne. refused HS meds last night, took morning meds today. continue to encourage medication compliance. 03/28: intermittently taking meds. wants all meds in morning. pressured, manic, paranoid delusions. encouraged to take lithium but states he will not. all meds ordered for morning. 03/29: Keeping to self. no groups. observed laying in bed listening to music on unit headphones. pleasant. Pt reports feeling good today and sleeping well. declined lithium and zyprexa. denies SI/HI/VH/AH. continue current tx plan. 03/30:Irritable. upset he was unable to use his personal hygiene products. Per nursing, pt threatened staff and squeezed tooth paste throughout unit hallway to show his frustration. Pt was able to calm down after speaking with security. declined medications. 03/31: Keeping to self. laying in bed listening to music. refused medications. calm today. Patient reports feeling great ; pt stated, nothing is wrong with me. I'm waiting so I can leave tomorrow. I'm hoping for the best . denies SI/HI/VH/AH. per nursing, slept 6 hours. Continue current tx plan. 04/01: variably calm on the unit versus highly agitated. paranoid delusions, irritability, lability continue. seems to believe MD has met him prior to the present hospitalization and is stalking him. believes brother behind conspiracy to have him psychiatrically hospitalized. has been refusing all medications, including for hyperthyroidism. informed he would be filed on. filed. continue to offer medications. 04/02: continues agitated, belittling, verbally aggressive, refusing all medications including for hyperthyroidism. continue to offer medication. 04/03: paranoid there is a conspiracy to hospitalize him. threatening to stick a stick in staff once he is released by senior officer. insists his hyperthyroidism was cured at [facility]. asserts there is NOTHING wrong with him. continue to offer medication. 04/04: irritable, rejecting. verbally abuses MD and sends him away: see you on monday [in court]. continue to offer medication for thyroid condition and mental illness. 04/05 continue tx. suspicious and guarded, accusatory, verbal threats to hurt staff and peers 04/06 intrusive, posturing towards staff and peer who he thinks is not real and is an impostor, continues to make verbal threats to harm him but thinks that because he is not real he may not experience any pain. 04/07: threatening statements and behaviors of yesterday noted. pt sleeping this morning, dismissive of MD. 04/08: asleep days. committed and meds ordered by court. 04/09: on being informed of court order and MD insisting on meds, pt escalated to hurling food item in container against wall at high speed and saying he wished he could do the same to MD's head. pt eventually took court ordered meds PO. sensodyne and excedrin not available in pharmacy (pt requesting them). 04/10: continue tx. Pt accepting medication today. 04/11: Keeping to self. Lying in bed most of morning. Declined to meet with T/W. Pt stated, I'm fine. I don't need anything . Listening to headphones in room. Declined court ordered PO medications; received IM medications. Refused vital signs.continue tx plan. 04/12: got IMs yesterday, took PO this morning. sleepy, no concerns or complaints. 04/13: taking PO meds again. slept 7 hours. sleepy again mid morning refusing interview. continue current mgmt. 04/14: sleeping, rousable. denies being sedated or tired, says he's just bored. no questions or complaints. informed of need to check labs. check lithium level and thyroid labs tonight. 04/15: refusing labs. delusional re his brother harming him. verbally abusive toward MD. spat in floor. happy with improvement in proptosis. 04/16: Lying in bed. Calm. cooperative. guarded. Pt reports feeling tired this morning d/t poor sleep last night. Pt stated, I don't need anything. I didn't sleep well so I'm trying to catch up . denies any issues at this time. denies SI/HI/VH/AH. Continue current tx plan. 04/17: more calm today, less explosive. continue current mgmt. 04/18: continues more calm. tolerating moments of frustration without verbally attacking MD. slept only 2 hours overnight, however. continue current mgmt. 04/19 continues to push boundaries and limits with staff mike around cell phone- 04/20 - aggressive with staff and unpredictable- threw water pitcher at staff behind desk/-when seen by provider passive in bed-denying all compaints/sys- no insight 04/21: appears as per last week. more difficult behaviors around cell phone use, did throw pitcher of water at RN monday over phone use and was restrained. continue current mgmt. 04/22: continues to have conflict around cell phone use. consolidate zyprexa at HS to decrease daytime sedation. 1:1 allegra shift until peer he is accusing of not being a real patient and appears to be targeting discharges tomorrow. 04/23: lithium 0.6 on 600 BID. sleeping better, remains delusional (telling SW who is marginally younger than him that she could be his daughter). just changed zyprexa dosing as of last night. continue current regimen and observe for continued stabilization. T/C slight increase in lithium dosing. 04/24: Laying in bed. guarded. calm. did not want to get out of bed to meet with T/W. Pt reports feeling great today but declined to go into detail. listening to music on unit headphones. Pt stated, I'm fine. I don't need anything . denies any issues at this time. denies SI/HI/VH/AH. Continue current tx plan. 04/25: Laying in bed. keeping to self. calm. paranoid. Discussed incident that occurred with staff last evening. Pt stated, the counselor made up a lie yesterday. I said she looks like my ex-girlfriend. I know they are related. They want to make up a lie to irritate me. They are trying to talk to me so they can use recording devices and make me look some kind of way . listening to music on unit headphones. denies SI/HI/VH/AH. Continue current tx plan. 04/26: Continue current regimen and plans. Increase Zyprexa 20 mg q.h.s. fresh air break withheld 04/27: Continue current regimen and plans 04/28: somewhat less irritable and agitated than last week. however, over the weekend was claiming he was the father of a footballer on TV and also that a staff member is a twin of his ex-GF (and he pushed staff member). TFTs improving. continue current mgmt. 04/29: no change in presentation. continue current mgmt. 04/30: no irritable edge today. calm, pleasant. engaging in small talk. reality testing not pressed. continue current mgmt for now. 05/01: no change in presentation. continue current mgmt. 05/02: BPs coming down, DC beta joanne as pt has been refusing anyway. remains not antagonistic toward MD. using phone appropriately. continue current mgmt otherwise. 05/03 continue 05/04: remains delusional, irritable/labile when delusional system confronted. declines to sign TOMMY for [facility] records. continue current mgmt. 05/06: declining to meet with MD, but does meet with medical student. remains upset about yesterday's confrontation re his delusional system. 05/07: Active on unit. keeping to self. pacing unit hallway while listening to unit headphones. medication compliant. patient reports feeling good ; pt stated, I'm just waiting to leave here. I want to return to my life and do things like go grocery shopping . denies SI/HI/VH/AH. Continue current tx plan. 05/08: stable presentation, delusions not being brought to the surface daily. remains affectively improved from admission. continue current mgmt. 05/09: calm, pleasant. no questions or complaints. continue current mgmt. 05/10: no change in presentation. due to lack of improvement in dental infection Sx, DC PCN and start augmentin. 05/11: no change in presentation. continue current mgmt. 05/12: as for yesterday. dental pain improving a bit. 05/13: expressed to medical student that his brother poisoned him, causing his thyroid disease. no change in presentation. continue current mgmt. 05/14: Pacing unit hallway. keeping to self. patient reports feeling good today; denies any issues at this time. denies SI/HI/VH/AH. per nursing, slept 5 hours. Continue current tx plan. 05/15: slept 6 hours. otherwise isolative, difficult to engage. continue current mgmt. 05/16: slept 7 hours. as for yesterday otherwise. 05/17/25: Slept well, no issue with appetite, skinny and pretty tall. Compliant with medication. No side effects Calm and pleasant upon approach. Some what paranoid. Tangential, however denies other safety concerns. Questions if he is discharging soon. He is on antibiotic for 7 days for mouth pain/tooth pain. We will finish the 7 course up in antibiotic after tonight dose. Then discontinue. 05/18/25: Slept for 5 hours plus hours this morning. In bed most of the shift, no behavior issues. Denies other safety concerns. 05/19: in bed days, up eves. no change in presentation. continue current mgmt. 05/20: no change in presentation. check labs. 05/21: lithium low, TFTs mixed and not all back. increase lithium from 600 BID to 600/900. trend BUN/Cr, with slight elevation. otherwise continue current mgmt. 05/22: no change in presentation. continue current mgmt. 05/23: does not deny someone stole his sperm and impregnated his landlord's child with it. irritable. c/o dental pain, antibx restarted. otherwise continue current mgmt. 05/14: no change in mgt 05/25: more isolative today; no change in mgt 05/26: decreases in methimazole noted. continue psych regimen as is. pt refused to interact with MD today. 05/27: i'm sleeping. no change in presentation. labs tonight. 05/28: no change in behavior. lithium 0.66, BUN stable. continue current mgmt. 05/29: irritable. continue current mgmt. 05/30: no longer in single room. still not engaging, sleeping days. continue current mgmt. 05/31:laying in bed. declined to meet with T/W. pt stated, I want to sleep. I didn't sleep enough . Pt encouraged to reach out to staff if he needs anything. Continue current tx plan. 06/01: Similar to yesterday. laying in bed. Irritable. declined to meet with T/W and pulled bed sheets over head. pt stated, I don't want to talk. I want to sleep . difficult to engage. Continue current tx plan. 06/02: Similar to yesterday. laying in bed. Irritable. declined to meet with T/W. Observed getting drink from kitchen; T/W approached pt and asked if they could speak. patient declined to acknowledge T/W and walked past. Continue current tx plan. 06/03: no change in behavior. continue tx plan. 06/04/25: Passive engaged in the assessment, in bed mostly sleeping this morning which could be interfere with his nighttime. Cover body under the blanket Slept for 4-5 hours last night. Was medication compliant, attended no groups, isolative to self in room. No SI/SIB/HI/AVH expressed. 06/05: continue tx plan. 06/06: reports feeling fine ; continues guarded. difficult to engage. declining to meet with T/W. continue tx plan. 06/07/25: Slept for 4 hours at night, but has been sleeping most of the day yesterday as well. Spent majority of the shift in bed, was medication compliant. Passive engaged in the conversation. He said he will try to change the sleeping pattern so that he can be awake more during the daytime. Appear to be sedated in the morning. No safety behavior. 06/08/25: Slept for 3-4 hours last night, compliant with medications. Denies side effects, denies other safety concerns. Continued to encourage patient to up and down more than on the unit he spent most of the day sleeping. He is pleasant upon approach. No other behavior issues. Denied voices/hallucinations. Suicide thoughts or homicidal thoughts. 06/09: sleeping, minimally rousable. denies problems. continue current mgmt. 06/10: sleeping all day, up most of the night. minimally rousable. denies problems. continue current mgmt. per JAMAICA Arrington: Jean said when he leaves he can return to [facility] [place]. he was living with a lady there and can go back. He plans to get a job to pay off his debt. He said he owes money because they sent him back here due to losing his passport and he owes them money for the temporary emergency passport and the flight back to the . so his main focus is to get a job. he said he will try things here first and if it doesn't work out he plans to return to [place]. 06/11/25: Passively engaged in conversation while in bed sleeping/resting. Able to answer question appropriately, but seems to be minimized. Denies SI/SIB/HI/AVH. He slept 5 hours last night, spent most of the day in bed sleeping. Attempted to no groups, observed out to the afternoon in the subramanian near the nurse station. No change in presentation. Encourage groups,up and engaged in groups. 06/12: not engaging. no complaints or questions re med changes. cross-taper zyprexa in favor of invega, give MONTERO invega. tonight, decrease zyprexa to 15 mg and start invega 3 mg. otherwise continue current mgmt. 06/13: continues avoidant and disengaged. denies side effects from med change last night. informed cross-titration will advance tonight. decrease zyprexa to 10 mg tonight, increase paliperidone to 6 mg. plan to continue by 5 mg zyprexa and 3 mg paliperidone increments every several days as tolerated until zyprexa DCed and paliperidone at 12 mg QHS. once it is established pt is tolerating PO Paliperidone, invega sustenna to be administered. 06/14: Continue current regimen and plans 06/15: Continue current plans and regimen 06/16: irritable re neuroleptic change. denies side effects or problems with it, however. minimally engageable. increase invega to 9 QHS and decrfease zyprexa to 5 QHS. 06/17/25: Continued to be irritable regarding medication change/titration. However engaged in conversation, hyper verbal, paranoid, reports medication slow his thoughts down and he does not not like it. Poor insight and poor judgment. He thinks he only need lithium, not other medications. Remind patient to continue doing the sleep pattern changing. However his in bed mostly this morning. Slept for 4-5 hours last night. 06/18/25: Slept for 5 hours last night as he continues sleeping during daytime. Compliant with meds, did not c/o side effects.Passingly engaging in assessment. Denies safety concerns. Tolerate the tritation well. Will increase Inveag up to max of 12 tomorrow and Discontinue Olanzepine at HS. Continue to encourage up and out on day so he can sleep better at HS. 06/19/25: Patient slept for 5.5 hours last night, was medication compliant, mostly in his room yesterday but seen more often in the evening. Patient is awake in his room, listen to music, his morning tray was taken away and clean the area. He is very pleasant to talk to today, reports he feels good, denies side effects from medications, denies any safety concerns. Denies feeling sedation, denies anxiety/depression. He is receptive with the plan of medication over the weekends and next week, happy to hear about the medication plan. He also agree with the MONTERO Invega Sustenna on Monday. Encourage him to go out and attended to groups, he said that he will. Reported that he was out for groups a couple of times last week. Discontinue Haldol p.r.n.. Discontinue scheduled Zyprexa 5 mg at bedtime. Only on 10 Zyprexa at g IM daily p.r.n. as backup orders if refused Invega. Invega 12 mg at bedtime. Plan to monitor over the weekends and will give long-acting injection on Monday if tolerate with the p.o. well Reduce Seroquel 200 mg p.r.n. at bedtime to 100 p.r.n. at bedtime for insomnia. Seroquel 50 mg b.i.d. p.r.n. for agitation. Discontinue Motrin. Patient on lithium. Labs were for MondayJune 20: CMP, TSH with free T4. 06/20/25: In bed most of the day, was compliant with medication, however refused labs work. Re- scheduled for Monday. Continue with Invega 12 mg at bedtime. We will reassess and offer long-acting injection on Monday. Continue to encourage patient to get up and go to some groups. No safety concerns expressed. Minimal peer and staff interaction. 06/21: no change in presentation. start MONTERO monday. no s/e from invega. otherwise continue current mgmt. 06/22: stable. continue current mgmt. 06/23/25: More awake and alert. Review with patient regarding policy for his phone use BID 30min each time, patient is educated on compliant with policy. He asks for more 5-10 min extra headphone use at night on the weekends after 2300. Once again, redirected for unit rules. He agrees with MONTERO which is scheduled today. Discontinue Invega PO Invega Sustenna 234mg IM once. Will monitor for possible side effects and sedation. Will offer 156mg after 1 week. If mentaly stable with 156mg, will maintain at this dose, if not will offer 234mg Monthly. 06/24/25: Slept for 5 hours last night, but also went to bed around 7 tonight p.m. last night per his report. He also attended to groups in the afternoon yesterday. Compliant with medications. No side effects from Invega Sustenna. He is engaged in full conversation today why he is in bed, denies safety concerns. Observe he is on the unit, social with peers and staff in longer period of time. Appeared to be happy. He plans to take shower today. Reported that he was up early but he does not feel hungry in the morning. He is making progress, not too sedated during daytime since switching his medication. Appears to do well so far with Invega Sustenna. 06/25/25: Patient slept for 4 hours last night, however he reported was napping in the afternoon for couple hours which affect his sleeping pattern at night. Educate patient to not napping late in the evening. He is receptive. Compliant with medications, no side effects. He reports his did not shower yesterday but he will today. He is awake in his room not sleeping, engage in full conversation, no delusional or paranoid statements make. He is visible at times. Continued to improve in mood, engaging in other activities on the unit. Denies other safety concerns. Denies hallucinations. No irritability mood, not sedated during day time compared to when he was taking olanzapine. We will schedule Invega Sustenna 156 next Monday. Work with manager social services to see where he will return to. He probably needs [facility] to manage medication. 06/26/25: He slept for 5 hours, compliant with medications. Denies side effects. He self-reported that he went to bed last night and was able to fall asleep by 01:00 and able to stay asleep whole night. Denies safety concerns. I spoke with him in length today regarding aftercare. He thinks he will go to the hospital in [place] to ask them regarding his heart condition. He thinks people was lying to get him to the hospital as he does not have mental health illnesses. He believes that he has been exactly the same he was seen he was a little, and at he able to remember everything in the past. He also reports that he used to use [facility] in [place]. At he does not want [facility] application. I explained to him that in order to be a candidate patient have to be a safe that he has mental health issues, so people can submit the application, and from the [facility] worker will contact him to do assessment if he qualify for any services that they can provide. Patient is receptive application, manager social services was notified. Patient also would like to have services with [facility] in [place]. He showered yesterday morning, did not go to groups yesterday, but he will go to some groups today per his plan for the day, more awake, engaged in conversation, no irritability. However, continued to be poor insight of his illnesses. He does not want to return to his brother I have not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
[2025-08-03 10:10] VITALS: BP 116/58; PULSE 69; RESP 16; TEMP 37.2; O2SAT 99
--- NOTE | 2025-08-03 17:11 | P.PNPSI_ITS ---
Subjective Subjective Date of Service: 08/03/25 Reason For Visit: psychotic disorder Interim History: no change. taking PRN seroquel at HS. sleeping much of the day as well. per staff, slept 6 hours. Mental Status Exam Mental Status Exam Narrative: in bed. cooperative. speech nml rate, decr amount and loudness. thoughts linear and logical. mood euthymic. no complaints. No SI/SIB/HI/AVH expressed. Diagnostics Vital Signs (24Hr): Vital Signs - 24 hr 08/02/25 19:46 08/03/25 10:10 Temperature 98.1 F 99.0 F Pulse Rate 86 69 Respiratory Rate 16 16 Blood Pressure 155/77 H 116/58 L Pulse Oximetry 98 99 Oxygen Delivery Method Room Air Room Air BMI result Body Mass Index 23.2 Labs 06/25/25 08:02 06/20/25 20:35 Medications Medications Current Medications Acetaminophen (Acetaminophen 325 Mg Tablet) 650 mg PO Q4H PRN PRN Reason: Pain, Mild (Pain Scale 1-3) Last Admin: 07/06/25 22:53 Dose: 650 mg Al Hydroxide/Mg Hydroxide (Magnesium Hydrox/Alum Hydrox 30 Ml Oral.Susp) 30 ml PO Q6H PRN PRN Reason: Heart burn Benzocaine (Benzocaine 20 % Oral Gel 14 Gm Tube) 1 appl MUCOUS MEM QID PRN; Protocol PRN Reason: Mouth Sore Pain Last Admin: 04/26/25 18:33 Dose: 1 appl Diazepam (Diazepam 10 Mg/2 Ml Cartridge) 10 mg IM BID PRN PRN Reason: refusal of lithium, per [place] Last Admin: 04/11/25 09:56 Dose: 10 mg Glycopyrrolate (Glycopyrrolate 1 Mg Tablet) 1 mg PO BID ON LICENSE OF [facility] Last Admin: 08/03/25 10:07 Dose: 1 mg Hydrocortisone (Hydrocortisone 1 % Cream 28.35 Gm Tube) 1 appl TOPICAL DAILY PRN; Protocol PRN Reason: rash Last Admin: 07/31/25 17:37 Dose: 1 appl [place] Carbonate ([place] Carbonate Er 300 Mg Tablet.Er) 600 mg PO DAILY ON LICENSE OF [facility] Last Admin: 08/03/25 10:07 Dose: 600 mg [place] Carbonate ([place] Carbonate Er 450 Mg Tablet.Er) 900 mg PO DAILY@2300 ON LICENSE OF [facility] Last Admin: 08/02/25 22:36 Dose: 900 mg Magnesium Hydroxide (Milk Of Magnesia 30 Ml Oral.Susp) 30 ml PO DAILY PRN PRN Reason: Constipation Methimazole (Methimazole 10 Mg Tablet) 10 mg PO DAILY ON LICENSE OF [facility] Last Admin: 08/03/25 10:08 Dose: 10 mg Nicotine (Nicotine 21 Mg Patch.Td24) 21 mg TRANSDERMA DAILY PRN PRN Reason: nicotine cravings Last Admin: 04/12/25 17:06 Dose: 21 mg Nicotine Polacrilex (Nicotine Polacrilex Lozenge 2 Mg Lozenge) 2 mg BUCCAL Q1H PRN PRN Reason: Nicotine Cravings Last Admin: 04/30/25 08:49 Dose: 2 mg Patient Own Medication Excedrin 250/250/65mg 2 each PO Q8H PRN PRN Reason: Migraine Headache Last Admin: 08/01/25 04:05 Dose: 2 each Olanzapine (Olanzapine 10 Mg Vial) 10 mg IM DAILY PRN PRN Reason: if refuse Invega PO Paliperidone Palmitate (Paliperidone Palmitate 234 Mg/1.5 Ml Syringe) 234 mg IM Q30D ON LICENSE OF [facility] Last Admin: 07/28/25 16:55 Dose: 234 mg Pseudoephedrine HCl (Pseudoephedrine Hcl 30 Mg Tablet) 30 mg PO Q6H PRN PRN Reason: Congestion Last Admin: 07/03/25 21:18 Dose: 30 mg Quetiapine Fumarate (Quetiapine Fumarate 100 Mg Tablet) 100 mg PO BEDTIME PRN PRN Reason: insomnia Last Admin: 08/02/25 22:37 Dose: 100 mg Quetiapine Fumarate (Quetiapine Fumarate 50 Mg Tablet) 50 mg PO BID PRN PRN Reason: agitation Last Admin: 08/03/25 00:36 Dose: 50 mg Sodium Chloride (Sodium Chloride 0.65 % Nasal 44 Ml Sprbtl) 1 spray NOSTRIL-B Q4H PRN PRN Reason: Congestion Last Admin: 07/03/25 23:03 Dose: 1 spray Allergies Allergies Allergy/AdvReac Type Severity Reaction Status Date / Time No Known Allergies Allergy Verified 03/26/25 14:24 Assessment & Plan Assessment & Plan (1) Graves disease: Status: Acute Code(s): E05.00 - Thyrotoxicosis with diffuse goiter without thyrotoxic crisis or storm Assessment and Plan: Hyperthyroidism/Graves disease. He will need follow up with endocrinology as an outpatient He will also need a primary care doctor referral as an outpatient Discussed with Dr. Bejarano, patient will need free T4 weekly Decrease Methimazole to 15 mgs daily for three days and then 10 mgs daily- discussed with patient he is aware of plan and rationale. TSH and free T4 every 4 weeks. No need to draw thyroid stimulation immunology or TSH receptor AB (2) Dental abscess: Status: Acute Code(s): K04.7 - Periapical abscess without sinus Assessment and Plan: Carious tooth/dental infection Recently treated with PEN VK 500 mg q.6 hours for 7 days Patient will need follow up with dentist on discharge for tooth extraction Motrin helping pain. (3) Becca: Status: Acute Code(s): F30.9 - Manic episode, unspecified Plan 03/26: offer lithium and seroquel for becca. continue methimazole and beta joanne for hyperthyroidism as started at [facility]. trend TFTs. 12b. 03/27: taking methimazole and beta joanne. refused HS meds last night, took morning meds today. continue to encourage medication compliance. 03/28: intermittently taking meds. wants all meds in morning. pressured, manic, paranoid delusions. encouraged to take lithium but states he will not. all meds ordered for morning. 03/29: Keeping to self. no groups. observed laying in bed listening to music on unit headphones. pleasant. Pt reports feeling good today and sleeping well. declined lithium and zyprexa. denies SI/HI/VH/AH. continue current tx plan. 03/30:Irritable. upset he was unable to use his personal hygiene products. Per nursing, pt threatened staff and squeezed tooth paste throughout unit hallway to show his frustration. Pt was able to calm down after speaking with security. declined medications. 03/31: Keeping to self. laying in bed listening to music. refused medications. calm today. Patient reports feeling great ; pt stated, nothing is wrong with me. I'm waiting so I can leave tomorrow. I'm hoping for the best . denies SI/HI/VH/AH. per nursing, slept 6 hours. Continue current tx plan. 04/01: variably calm on the unit versus highly agitated. paranoid delusions, irritability, lability continue. seems to believe MD has met him prior to the present hospitalization and is stalking him. believes brother behind conspiracy to have him psychiatrically hospitalized. has been refusing all medications, including for hyperthyroidism. informed he would be filed on. filed. continue to offer medications. 04/02: continues agitated, belittling, verbally aggressive, refusing all medications including for hyperthyroidism. continue to offer medication. 04/03: paranoid there is a conspiracy to hospitalize him. threatening to stick a stick in staff once he is released by maternity floor supervisor. insists his hyperthyroidism was cured at [facility]. asserts there is NOTHING wrong with him. continue to offer medication. 04/04: irritable, rejecting. verbally abuses MD and sends him away: see you on monday [in court]. continue to offer medication for thyroid condition and mental illness. 04/05 continue tx. suspicious and guarded, accusatory, verbal threats to hurt staff and peers 04/06 intrusive, posturing towards staff and peer who he thinks is not real and is an impostor, continues to make verbal threats to harm him but thinks that because he is not real he may not experience any pain. 04/07: threatening statements and behaviors of yesterday noted. pt sleeping this morning, dismissive of MD. 04/08: asleep days. committed and meds ordered by court. 04/09: on being informed of court order and MD insisting on meds, pt escalated to hurling food item in container against wall at high speed and saying he wished he could do the same to MD's head. pt eventually took court ordered meds PO. sensodyne and excedrin not available in pharmacy (pt requesting them). 04/10: continue tx. Pt accepting medication today. 04/11: Keeping to self. Lying in bed most of morning. Declined to meet with T/W. Pt stated, I'm fine. I don't need anything . Listening to headphones in room. Declined court ordered PO medications; received IM medications. Refused vital signs.continue tx plan. 04/12: got IMs yesterday, took PO this morning. sleepy, no concerns or complaints. 04/13: taking PO meds again. slept 7 hours. sleepy again mid morning refusing interview. continue current mgmt. 04/14: sleeping, rousable. denies being sedated or tired, says he's just bored. no questions or complaints. informed of need to check labs. check lithium level and thyroid labs tonight. 04/15: refusing labs. delusional re his brother harming him. verbally abusive toward MD. spat in floor. happy with improvement in proptosis. 04/16: Lying in bed. Calm. cooperative. guarded. Pt reports feeling tired this morning d/t poor sleep last night. Pt stated, I don't need anything. I didn't sleep well so I'm trying to catch up . denies any issues at this time. denies SI/HI/VH/AH. Continue current tx plan. 04/17: more calm today, less explosive. continue current mgmt. 04/18: continues more calm. tolerating moments of frustration without verbally attacking MD. slept only 2 hours overnight, however. continue current mgmt. 04/19 continues to push boundaries and limits with staff mike around cell phone- 04/20 - aggressive with staff and unpredictable- threw water pitcher at staff behind desk/-when seen by provider passive in bed-denying all compaints/sys- no insight 04/21: appears as per last week. more difficult behaviors around cell phone use, did throw pitcher of water at RN monday over phone use and was restrained. continue current mgmt. 04/22: continues to have conflict around cell phone use. consolidate zyprexa at HS to decrease daytime sedation. 1:1 allegra shift until peer he is accusing of not being a real patient and appears to be targeting discharges tomorrow. 04/23: lithium 0.6 on 600 BID. sleeping better, remains delusional (telling SW who is marginally younger than him that she could be his daughter). just changed zyprexa dosing as of last night. continue current regimen and observe for continued stabilization. T/C slight increase in lithium dosing. 04/24: Laying in bed. guarded. calm. did not want to get out of bed to meet with T/W. Pt reports feeling great today but declined to go into detail. listening to music on unit headphones. Pt stated, I'm fine. I don't need anything . denies any issues at this time. denies SI/HI/VH/AH. Continue current tx plan. 04/25: Laying in bed. keeping to self. calm. paranoid. Discussed incident that occurred with staff last evening. Pt stated, the counselor made up a lie yesterday. I said she looks like my ex-girlfriend. I know they are related. They want to make up a lie to irritate me. They are trying to talk to me so they can use recording devices and make me look some kind of way . listening to music on unit headphones. denies SI/HI/VH/AH. Continue current tx plan. 04/26: Continue current regimen and plans. Increase Zyprexa 20 mg q.h.s. fresh air break withheld 04/27: Continue current regimen and plans 04/28: somewhat less irritable and agitated than last week. however, over the weekend was claiming he was the father of a footballer on TV and also that a staff member is a twin of his ex-GF (and he pushed staff member). TFTs improving. continue current mgmt. 04/29: no change in presentation. continue current mgmt. 04/30: no irritable edge today. calm, pleasant. engaging in small talk. reality testing not pressed. continue current mgmt for now. 05/01: no change in presentation. continue current mgmt. 05/02: BPs coming down, DC beta joanne as pt has been refusing anyway. remains not antagonistic toward MD. using phone appropriately. continue current mgmt otherwise. 05/03 continue 05/04: remains delusional, irritable/labile when delusional system confronted. declines to sign TOMMY for [facility]. continue current mgmt. 05/06: declining to meet with MD, but does meet with medical student. remains upset about yesterday's confrontation re his delusional system. 05/07: Active on unit. keeping to self. pacing unit hallway while listening to unit headphones. medication compliant. patient reports feeling good ; pt stated, I'm just waiting to leave here. I want to return to my life and do things like go grocery shopping . denies SI/HI/VH/AH. Continue current tx plan. 05/08: stable presentation, delusions not being brought to the surface daily. remains affectively improved from admission. continue current mgmt. 05/09: calm, pleasant. no questions or complaints. continue current mgmt. 05/10: no change in presentation. due to lack of improvement in dental infection Sx, DC PCN and start augmentin. 05/11: no change in presentation. continue current mgmt. 05/12: as for yesterday. dental pain improving a bit. 05/13: expressed to medical student that his brother poisoned him, causing his thyroid disease. no change in presentation. continue current mgmt. 05/14: Pacing unit hallway. keeping to self. patient reports feeling good today; denies any issues at this time. denies SI/HI/VH/AH. per nursing, slept 5 hours. Continue current tx plan. 05/15: slept 6 hours. otherwise isolative, difficult to engage. continue current mgmt. 05/16: slept 7 hours. as for yesterday otherwise. 05/17/25: Slept well, no issue with appetite, skinny and pretty tall. Compliant with medication. No side effects Calm and pleasant upon approach. Some what paranoid. Tangential, however denies other safety concerns. Questions if he is discharging soon. He is on antibiotic for 7 days for mouth pain/tooth pain. We will finish the 7 course up in antibiotic after tonight dose. Then discontinue. 05/18/25: Slept for 5 hours plus hours this morning. In bed most of the shift, no behavior issues. Denies other safety concerns. 05/19: in bed days, up eves. no change in presentation. continue current mgmt. 05/20: no change in presentation. check labs. 05/21: lithium low, TFTs mixed and not all back. increase lithium from 600 BID to 600/900. trend BUN/Cr, with slight elevation. otherwise continue current mgmt. 05/22: no change in presentation. continue current mgmt. 05/23: does not deny someone stole his sperm and impregnated his landlord's child with it. irritable. c/o dental pain, antibx restarted. otherwise continue current mgmt. 05/14: no change in mgt 05/25: more isolative today; no change in mgt 05/26: decreases in methimazole noted. continue psych regimen as is. pt refused to interact with MD today. 05/27: i'm sleeping. no change in presentation. labs tonight. 05/28: no change in behavior. lithium 0.66, BUN stable. continue current mgmt. 05/29: irritable. continue current mgmt. 05/30: no longer in single room. still not engaging, sleeping days. continue current mgmt. 05/31:laying in bed. declined to meet with T/W. pt stated, I want to sleep. I didn't sleep enough . Pt encouraged to reach out to staff if he needs anything. Continue current tx plan. 06/01: Similar to yesterday. laying in bed. Irritable. declined to meet with T/W and pulled bed sheets over head. pt stated, I don't want to talk. I want to sleep . difficult to engage. Continue current tx plan. 06/02: Similar to yesterday. laying in bed. Irritable. declined to meet with T/W. Observed getting drink from kitchen; T/W approached pt and asked if they could speak. patient declined to acknowledge T/W and walked past. Continue current tx plan. 06/03: no change in behavior. continue tx plan. 06/04/25: Passive engaged in the assessment, in bed mostly sleeping this morning which could be interfere with his nighttime. Cover body under the blanket Slept for 4-5 hours last night. Was medication compliant, attended no groups, isolative to self in room. No SI/SIB/HI/AVH expressed. 06/05: continue tx plan. 06/06: reports feeling fine ; continues guarded. difficult to engage. declining to meet with T/W. continue tx plan. 06/07/25: Slept for 4 hours at night, but has been sleeping most of the day yesterday as well. Spent majority of the shift in bed, was medication compliant. Passive engaged in the conversation. He said he will try to change the sleeping pattern so that he can be awake more during the daytime. Appear to be sedated in the morning. No safety behavior. 06/08/25: Slept for 3-4 hours last night, compliant with medications. Denies side effects, denies other safety concerns. Continued to encourage patient to up and down more than on the unit he spent most of the day sleeping. He is pleasant upon approach. No other behavior issues. Denied voices/hallucinations. Suicide thoughts or homicidal thoughts. 8: sleeping, minimally rousable. denies problems. continue current mgmt. 06/10: sleeping all day, up most of the night. minimally rousable. denies problems. continue current mgmt. per JAMAICA Arrington: Jean said when he leaves he can return to [facility]. he was living with a lady there and can go back. He plans to get a job to pay off his debt. He said he owes money because they sent him back here due to losing his passport and he owes them money for the temporary emergency passport and the flight back to the . so his main focus is to get a job. he said he will try things here first and if it doesn't work out he plans to return to [place]. 06/11/25: Passively engaged in conversation while in bed sleeping/resting. Able to answer question appropriately, but seems to be minimized. Denies SI/SIB/HI/AVH. He slept 5 hours last night, spent most of the day in bed sleeping. Attempted to no groups, observed out to the afternoon in the subramanian near the nurse station. No change in presentation. Encourage groups,up and engaged in groups. 06/12: not engaging. no complaints or questions re med changes. cross-taper zyprexa in favor of invega, give MONTERO invega. tonight, decrease zyprexa to 15 mg and start invega 3 mg. otherwise continue current mgmt. 06/13: continues avoidant and disengaged. denies side effects from med change last night. informed cross-titration will advance tonight. decrease zyprexa to 10 mg tonight, increase paliperidone to 6 mg. plan to continue by 5 mg zyprexa and 3 mg paliperidone increments every several days as tolerated until zyprexa DCed and paliperidone at 12 mg QHS. once it is established pt is tolerating PO Paliperidone, invega sustenna to be administered. 06/14: Continue current regimen and plans 06/15: Continue current plans and regimen 06/16: irritable re neuroleptic change. denies side effects or problems with it, however. minimally engageable. increase invega to 9 QHS and decrfease zyprexa to 5 QHS. 06/17/25: Continued to be irritable regarding medication change/titration. However engaged in conversation, hyper verbal, paranoid, reports medication slow his thoughts down and he does not not like it. Poor insight and poor judgment. He thinks he only need lithium, not other medications. Remind patient to continue doing the sleep pattern changing. However his in bed mostly this morning. Slept for 4-5 hours last night. 06/18/25: Slept for 5 hours last night as he continues sleeping during daytime. Compliant with meds, did not c/o side effects.Passingly engaging in assessment. Denies safety concerns. Tolerate the tritation well. Will increase Inveag up to max of 12 tomorrow and Discontinue Olanzepine at HS. Continue to encourage up and out on day so he can sleep better at HS. 06/19/25: Patient slept for 5.5 hours last night, was medication compliant, mostly in his room yesterday but seen more often in the evening. Patient is awake in his room, listen to music, his morning tray was taken away and clean the area. He is very pleasant to talk to today, reports he feels good, denies side effects from medications, denies any safety concerns. Denies feeling sedation, denies anxiety/depression. He is receptive with the plan of medication over the weekends and next week, happy to hear about the medication plan. He also agree with the MONTERO Invega Sustenna on Monday. Encourage him to go out and attended to groups, he said that he will. Reported that he was out for groups a couple of times last week. Discontinue Haldol p.r.n.. Discontinue scheduled Zyprexa 5 mg at bedtime. Only on 10 Zyprexa at g IM daily p.r.n. as backup orders if refused Invega. Invega 12 mg at bedtime. Plan to monitor over the weekends and will give long- acting injection on Monday if tolerate with the p.o. well Reduce Seroquel 200 mg p.r.n. at bedtime to 100 p.r.n. at bedtime for insomnia. Seroquel 50 mg b.i.d. p.r.n. for agitation. Discontinue Motrin. Patient on lithium. Labs were for MondayJune 20: CMP, TSH with free T4. 06/20/25: In bed most of the day, was compliant with medication, however refused labs work. Re- scheduled for Monday. Continue with Invega 12 mg at bedtime. We will reassess and offer long-acting injection on Monday. Continue to encourage patient to get up and go to some groups. No safety concerns expressed. Minimal peer and staff interaction. 06/21: no change in presentation. start MONTERO monday. no s/e from invega. otherwise continue current mgmt. 06/22: stable. continue current mgmt. 06/23/25: More awake and alert. Review with patient regarding policy for his phone use BID 30min each time, patient is educated on compliant with policy. He asks for more 5-10 min extra headphone use at night on the weekends after [id number]. Once again, redirected for unit rules. He agrees with MONTERO which is scheduled today. Discontinue Invega PO Invega Sustenna 234mg IM once. Will monitor for possible side effects and sedation. Will offer 156mg after 1 week. If mentaly stable with 156mg, will maintain at this dose, if not will offer 234mg Monthly. 06/24/25: Slept for 5 hours last night, but also went to bed around 7 tonight p.m. last night per his report. He also attended to groups in the afternoon yesterday. Compliant with medications. No side effects from Invega Sustenna. He is engaged in full conversation today why he is in bed, denies safety concerns. Observe he is on the unit, social with peers and staff in longer period of time. Appeared to be happy. He plans to take shower today. Reported that he was up early but he does not feel hungry in the morning. He is making progress, not too sedated during daytime since switching his medication. Appears to do well so far with Invega Sustenna. 06/25/25: Patient slept for 4 hours last night, however he reported was napping in the afternoon for couple hours which affect his sleeping pattern at night. Educate patient to not napping late in the evening. He is receptive. Compliant with medications, no side effects. He reports his did not shower yesterday but he will today. He is awake in his room not sleeping, engage in full conversation, no delusional or paranoid statements make. He is visible at times. Continued to improve in mood, engaging in other activities on the unit. Denies other safety concerns. Denies hallucinations. No irritability mood, not sedated during day time compared to when he was taking olanzapine. We will schedule Invega Sustenna 156 next Monday. Work with social worker psychiatric to see where he will return to. He probably needs [facility] to manage medication. 06/26/25: He slept for 5 hours, compliant with medications. Denies side effects. He self-reported that he went to bed last night and was able to fall asleep by 01:00 and able to stay asleep whole night. Denies safety concerns. I spoke with him in length today regarding aftercare. He thinks he will go to the hospital in [place] to ask them regarding his heart condition. He thinks people was lying to get him to the hospital as he does not have mental health illnesses. He believes that he has been exactly the same he was seen he was a little, and at he able to remember everything in the past. He also reports that he used to use [facility] in [place]. At he does not want [facility] application. I explained to him that in order to be a candidate patient have to be a safe that he has mental health issues, so people can submit the application, and from the [facility] worker will contact him to do assessment if he qualify for any services that they can provide. Patient is receptive application, social worker psychiatric was notified. Patient also would like to have services with [facility] in [place]. He showered yesterday morning, did not go to groups yesterday, but he will go to some groups today per his plan for the day, more awake, engaged in conversation, no irritability.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
[2025-08-03 20:00] VITALS: BP 145/80; PULSE 99; RESP 16; TEMP 36.9; O2SAT 99
[2025-08-04] MEDS: EXCEDRIN 2 EACH PO (07:28)
[2025-08-04 08:00] VITALS: RESP 18
--- NOTE | 2025-08-04 10:36 | P.PNPSI_ITS ---
Subjective Subjective Date of Service: 08/04/25 Reason For Visit: psychotic disorder Interim History: Met w/ pt in his room this am, where he was asleep in bed. He reports that he's been sleeping well but still tired. He denies feeling depressed or anxious, denies SI/violent ideation, denies AH/VH. Denies med SE. Med adherent. Took prn Seroquel 150 mg yesterday Review of Systems Review of Systems nothing of note Yes all other systems are reviewed and are negative and Unobtainable due to mental status Mental Status Exam Mental Status Exam Narrative: Appearance: lying in bed, under covers, somewhat disheveled. fair eye contact Attitude:Cooperative Speech: Minimal spontaneous speech. Answers questions appropriately with yes or no. Soft. otherwise wnl Motor activity: Calm and without any tics, tremors or dyskinesias Mood: okay, tired Affect: appropriate, constricted Thought process: goal directed Thought content: as noted above Perception: Denies AH/VH and does not appear to respond to internal stimuli Insight: unable to fully assess due to limited speech Judgment: unable to fully assess due to limited speech but at least fair, based on taking his medications Diagnostics Vital Signs (24Hr): Vital Signs - 24 hr 08/03/25 20:00 08/04/25 08:00 Temperature 98.4 F Pulse Rate 99 Respiratory Rate 16 18 Blood Pressure 145/80 H Pulse Oximetry 99 Oxygen Delivery Method Room Air BMI result Body Mass Index 23.2 Labs 06/25/25 08:02 06/20/25 20:35 Medications Medications Current Medications Acetaminophen (Acetaminophen 325 Mg Tablet) 650 mg PO Q4H PRN PRN Reason: Pain, Mild (Pain Scale 1-3) Last Admin: 07/06/25 22:53 Dose: 650 mg Al Hydroxide/Mg Hydroxide (Magnesium Hydrox/Alum Hydrox 30 Ml Oral.Susp) 30 ml PO Q6H PRN PRN Reason: Heart burn Benzocaine (Benzocaine 20 % Oral Gel 14 Gm Tube) 1 appl MUCOUS MEM QID PRN; Protocol PRN Reason: Mouth Sore Pain Last Admin: 04/26/25 18:33 Dose: 1 appl Diazepam (Diazepam 10 Mg/2 Ml Cartridge) 10 mg IM BID PRN PRN Reason: refusal of lithium, mary floyd Last Admin: 04/11/25 09:56 Dose: 10 mg Glycopyrrolate (Glycopyrrolate 1 Mg Tablet) 1 mg PO BID [facility] Last Admin: 08/04/25 08:33 Dose: 1 mg Hydrocortisone (Hydrocortisone 1 % Cream 28.35 Gm Tube) 1 appl TOPICAL DAILY PRN; Protocol PRN Reason: rash Last Admin: 07/31/25 17:37 Dose: 1 appl [place] Carbonate ([place] Carbonate Er 300 Mg Tablet.Er) 600 mg PO DAILY [facility] Last Admin: 08/04/25 08:33 Dose: 600 mg [place] Carbonate ([place] Carbonate Er 450 Mg Tablet.Er) 900 mg PO DAILY@2300 [facility] Last Admin: 08/03/25 22:56 Dose: 900 mg Magnesium Hydroxide (Milk Of Magnesia 30 Ml Oral.Susp) 30 ml PO DAILY PRN PRN Reason: Constipation Methimazole (Methimazole 10 Mg Tablet) 10 mg PO DAILY [facility] Last Admin: 08/04/25 08:33 Dose: 10 mg Nicotine (Nicotine 21 Mg Patch.Td24) 21 mg TRANSDERMA DAILY PRN PRN Reason: nicotine cravings Last Admin: 04/12/25 17:06 Dose: 21 mg Nicotine Polacrilex (Nicotine Polacrilex Lozenge 2 Mg Lozenge) 2 mg BUCCAL Q1H PRN PRN Reason: Nicotine Cravings Last Admin: 04/30/25 08:49 Dose: 2 mg Patient Own Medication Excedrin 250/250/65mg 2 each PO Q8H PRN PRN Reason: Migraine Headache Last Admin: 08/04/25 07:28 Dose: 2 each Olanzapine (Olanzapine 10 Mg Vial) 10 mg IM DAILY PRN PRN Reason: if refuse Invega PO Paliperidone Palmitate (Paliperidone Palmitate 234 Mg/1.5 Ml Syringe) 234 mg IM Q30D [facility] Last Admin: 07/28/25 16:55 Dose: 234 mg Pseudoephedrine HCl (Pseudoephedrine Hcl 30 Mg Tablet) 30 mg PO Q6H PRN PRN Reason: Congestion Last Admin: 07/03/25 21:18 Dose: 30 mg Quetiapine Fumarate (Quetiapine Fumarate 100 Mg Tablet) 100 mg PO BEDTIME PRN PRN Reason: insomnia Last Admin: 08/03/25 22:56 Dose: 100 mg Quetiapine Fumarate (Quetiapine Fumarate 50 Mg Tablet) 50 mg PO BID PRN PRN Reason: agitation Last Admin: 08/03/25 00:36 Dose: 50 mg Sodium Chloride (Sodium Chloride 0.65 % Nasal 44 Ml Sprbtl) 1 spray NOSTRIL-B Q4H PRN PRN Reason: Congestion Last Admin: 07/03/25 23:03 Dose: 1 spray Allergies Allergies Allergy/AdvReac Type Severity Reaction Status Date / Time No Known Allergies Allergy Verified 03/26/25 14:24 Assessment & Plan Assessment & Plan (1) Graves disease: Status: Acute Code(s): E05.00 - Thyrotoxicosis with diffuse goiter without thyrotoxic crisis or storm Assessment and Plan: Hyperthyroidism/Graves disease. He will need follow up with endocrinology as an outpatient He will also need a primary care doctor referral as an outpatient Per previous notes- plan was discussed with Dr. Bejarano, patient will need free T4 weekly Methimazole was decreased to 15 mgs daily for three days and then 10 mgs daily (currently on 10 mg qd) TSH and free T4 every 4 weeks. No need to draw thyroid stimulation immunology or TSH receptor AB (2) Dental abscess: Status: Acute Code(s): K04.7 - Periapical abscess without sinus Assessment and Plan: Carious tooth/dental infection Recently treated with PEN VK 500 mg q.6 hours for 7 days Patient will need follow up with dentist on discharge for tooth extraction Motrin helping pain. (3) Becca: Status: Acute Code(s): F30.9 - Manic episode, unspecified Plan 03/26: offer lithium and seroquel for becca. continue methimazole and beta joanne for [place]thy[place] as [place] [facility] trend TFTs. 12b. 03/27: taking methimazole and beta joanne. refused HS meds last night, took morning meds today. continue to encourage medication compliance. 03/28: intermittently taking meds. wants all meds in morning. pressured, manic, paranoid delusions. encouraged to take lithium but states he will not. all meds ordered for morning. 03/29: Keeping to self. no groups. observed laying in bed listening to music on unit headphones. pleasant. Pt reports feeling good today and sleeping well. declined lithium and zyprexa. denies SI/HI/VH/AH. continue current tx plan. 03/30:Irritable. upset he was unable to use his personal hygiene products. Per nursing, pt threatened staff and squeezed tooth paste throughout unit hallway to show his frustration. Pt was able to calm down after speaking with security. declined medications. 03/31: Keeping to self. laying in bed listening to music. refused medications. calm today. Patient reports feeling great ; pt stated, nothing is wrong with me. I'm waiting so I can leave tomorrow. I'm hoping for the best . denies SI/HI/VH/AH. per nursing, slept 6 hours. Continue current tx plan. 04/01: variably calm on the unit versus highly agitated. paranoid delusions, irritability, lability continue. seems to believe MD has met him prior to the present hospitalization and is stalking him. believes brother behind conspiracy to have him psychiatrically hospitalized. has been refusing all medications, including for hyperthyroidism. informed he would be filed on. filed. continue to offer medications. 04/02: continues agitated, belittling, verbally aggressive, refusing all medications including for hyperthyroidism. continue to offer medication. 04/03: paranoid there is a conspiracy to hospitalize him. threatening to stick a stick in staff once he is released by line rider. insists his hyperthyroidism was cured at [facility]. asserts there is NOTHING wrong with him. continue to offer medication. 04/04: irritable, rejecting. verbally abuses MD and sends him away: see you on monday [in court]. continue to offer medication for thyroid condition and mental illness. 04/05 continue tx. suspicious and guarded, accusatory, verbal threats to hurt staff and peers 04/06 intrusive, posturing towards staff and peer who he thinks is not real and is an impostor, continues to make verbal threats to harm him but thinks that because he is not real he may not experience any pain. 04/07: threatening statements and behaviors of yesterday noted. pt sleeping this morning, dismissive of MD. 04/08: asleep days. committed and meds ordered by court. 04/09: on being informed of court order and MD insisting on meds, pt escalated to hurling food item in container against wall at high speed and saying he wished he could do the same to MD's head. pt eventually took court ordered meds PO. sensodyne and excedrin not available in pharmacy (pt requesting them). 04/10: continue tx. Pt accepting medication today. 04/11: Keeping to self. Lying in bed most of morning. Declined to meet with T/W. Pt stated, I'm fine. I don't need anything . Listening to headphones in room. Declined court ordered PO medications; received IM medications. Refused vital signs.continue tx plan. 04/12: got IMs yesterday, took PO this morning. sleepy, no concerns or complaints. 04/13: taking PO meds again. slept 7 hours. sleepy again mid morning refusing interview. continue current mgmt. 04/14: sleeping, rousable. denies being sedated or tired, says he's just bored. no questions or complaints. informed of need to check labs. check lithium level and thyroid labs tonight. 04/15: refusing labs. delusional re his brother harming him. verbally abusive toward MD. spat in floor. happy with improvement in proptosis. 04/16: Lying in bed. Calm. cooperative. guarded. Pt reports feeling tired this morning d/t poor sleep last night. Pt stated, I don't need anything. I didn't sleep well so I'm trying to catch up . denies any issues at this time. denies SI/HI/VH/AH. Continue current tx plan. 04/17: more calm today, less explosive. continue current mgmt. 04/18: continues more calm. tolerating moments of frustration without verbally attacking MD. slept only 2 hours overnight, however. continue current mgmt. 04/19 continues to push boundaries and limits with staff mike around cell phone- 04/20 - aggressive with staff and unpredictable- threw water pitcher at staff behind desk/-when seen by provider passive in bed-denying all compaints/sys- no insight 04/21: appears as per last week. more difficult behaviors around cell phone use, did throw pitcher of water at RN monday over phone use and was restrained. continue current mgmt. 04/22: continues to have conflict around cell phone use. consolidate zyprexa at HS to decrease daytime sedation. 1:1 allegra shift until peer he is accusing of not being a real patient and appears to be targeting discharges tomorrow. 04/23: lithium 0.6 on 600 BID. sleeping better, remains delusional (telling SW who is marginally younger than him that she could be his daughter). just changed zyprexa dosing as of last night. continue current regimen and observe for continued stabilization. T/C slight increase in lithium dosing. 04/24: Laying in bed. guarded. calm. did not want to get out of bed to meet with T/W. Pt reports feeling great today but declined to go into detail. listening to music on unit headphones. Pt stated, I'm fine. I don't need anything . denies any issues at this time. denies SI/HI/VH/AH. Continue current tx plan. 04/25: Laying in bed. keeping to self. calm. paranoid. Discussed incident that occurred with staff last evening. Pt stated, the counselor made up a lie yesterday. I said she looks like my ex-girlfriend. I know they are related. They want to make up a lie to irritate me. They are trying to talk to me so they can use recording devices and make me look some kind of way . listening to music on unit headphones. denies SI/HI/VH/AH. Continue current tx plan. 04/26: Continue current regimen and plans. Increase Zyprexa 20 mg q.h.s. fresh air break withheld 04/27: Continue current regimen and plans 04/28: somewhat less irritable and agitated than last week. however, over the weekend was claiming he was the father of a footballer on TV and also that a staff member is a twin of his ex-GF (and he pushed staff member). TFTs improving. continue current mgmt. 04/29: no change in presentation. continue current mgmt. 04/30: no irritable edge today. calm, pleasant. engaging in small talk. reality testing not pressed. continue current mgmt for now. 05/01: no change in presentation. continue current mgmt. 05/02: BPs coming down, DC beta joanne as pt has been refusing anyway. remains not antagonistic toward MD. using phone appropriately. continue current mgmt otherwise. 05/03 continue 05/04: remains delusional, irritable/labile when delusional system confronted. declines to sign TOMMY for [facility] records. continue current mgmt. 05/06: declining to meet with MD, but does meet with medical student. remains upset about yesterday's confrontation re his delusional system. 05/07: Active on unit. keeping to self. pacing unit hallway while listening to unit headphones. medication compliant. patient reports feeling good ; pt stated, I'm just waiting to leave here. I want to return to my life and do things like go grocery shopping . denies SI/HI/VH/AH. Continue current tx plan. 05/08: stable presentation, delusions not being brought to the surface daily. remains affectively improved from admission. continue current mgmt. 05/09: calm, pleasant. no questions or complaints. continue current mgmt. 05/10: no change in presentation. due to lack of improvement in dental infection Sx, DC PCN and start augmentin. 05/11: no change in presentation. continue current mgmt. 05/12: as for yesterday. dental pain improving a bit. 05/13: expressed to medical student that his brother poisoned him, causing his thyroid disease. no change in presentation. continue current mgmt. 05/14: Pacing unit hallway. keeping to self. patient reports feeling good today; denies any issues at this time. denies SI/HI/VH/AH. per nursing, slept 5 hours. Continue current tx plan. 05/15: slept 6 hours. otherwise isolative, difficult to engage. continue current mgmt. 05/16: slept 7 hours. as for yesterday otherwise. 05/17/25: Slept well, no issue with appetite, skinny and pretty tall. Compliant with medication. No side effects Calm and pleasant upon approach. Some what paranoid. Tangential, however denies other safety concerns. Questions if he is discharging soon. He is on antibiotic for 7 days for mouth pain/tooth pain. We will finish the 7 course up in antibiotic after tonight dose. Then discontinue. 05/18/25: Slept for 5 hours plus hours this morning. In bed most of the shift, no behavior issues. Denies other safety concerns. 05/19: in bed days, up eves. no change in presentation. continue current mgmt. 05/20: no change in presentation. check labs. 05/21: lithium low, TFTs mixed and not all back. increase lithium from 600 BID to 600/900. trend BUN/Cr, with slight elevation. otherwise continue current mgmt. 05/22: no change in presentation. continue current mgmt. 05/23: does not deny someone stole his sperm and impregnated his landlord's child with it. irritable. c/o dental pain, antibx restarted. otherwise continue current mgmt. 05/14: no change in mgt 05/25: more isolative today; no change in mgt 05/26: decreases in methimazole noted. continue psych regimen as is. pt refused to interact with MD today. 05/27: i'm sleeping. no change in presentation. labs tonight. 05/28: no change in behavior. lithium 0.66, BUN stable. continue current mgmt. 05/29: irritable. continue current mgmt. 05/30: no longer in single room. still not engaging, sleeping days. continue current mgmt. 05/31:laying in bed. declined to meet with T/W. pt stated, I want to sleep. I didn't sleep enough . Pt encouraged to reach out to staff if he needs anything. Continue current tx plan. 06/01: Similar to yesterday. laying in bed. Irritable. declined to meet with T/W and pulled bed sheets over head. pt stated, I don't want to talk. I want to sleep . difficult to engage. Continue current tx plan. 06/02: Similar to yesterday. laying in bed. Irritable. declined to meet with T/W. Observed getting drink from kitchen; T/W approached pt and asked if they could speak. patient declined to acknowledge T/W and walked past. Continue current tx plan. 06/03: no change in behavior. continue tx plan. 06/04/25: Passive engaged in the assessment, in bed mostly sleeping this morning which could be interfere with his nighttime. Cover body under the blanket Slept for 4-5 hours last night. Was medication compliant, attended no groups, isolative to self in room. No SI/SIB/HI/AVH expressed. 06/05: continue tx plan. 06/06: reports feeling fine ; continues guarded. difficult to engage. declining to meet with T/W. continue tx plan. 06/07/25: Slept for 4 hours at night, but has been sleeping most of the day yesterday as well. Spent majority of the shift in bed, was medication compliant. Passive engaged in the conversation. He said he will try to change the sleeping pattern so that he can be awake more during the daytime. Appear to be sedated in the morning. No safety behavior. 06/08/25: Slept for 3-4 hours last night, compliant with medications. Denies side effects, denies other safety concerns. Continued to encourage patient to up and down more than on the unit he spent most of the day sleeping. He is pleasant upon approach. No other behavior issues. Denied voices/hallucinations. Suicide thoughts or homicidal thoughts. 06/09: sleeping, minimally rousable. denies problems. continue current mgmt. 06/10: sleeping all day, up most of the night. minimally rousable. denies problems. continue current mgmt. per JAMAICA Arrington: Jean said when he leaves he can return to [facility]. he was living with a lady there and can go back. He plans to get a job to pay off his debt. He said he owes money because they sent him back here due to losing his passport and he owes them money for the temporary emergency passport and the flight back to the . so his main focus is to get a job. he said he will try things here first and if it doesn't work out he plans to return to [place]. 06/11/25: Passively engaged in conversation while in bed sleeping/resting. Able to answer question appropriately, but seems to be minimized. Denies SI/SIB/HI/AVH. He slept 5 hours last night, spent most of the day in bed sleeping. Attempted to no groups, observed out to the afternoon in the subramanian near the nurse station. No change in presentation. Encourage groups,up and engaged in groups. 06/12: not engaging. no complaints or questions re med changes. cross-taper zyprexa in favor of invega, give MONTERO invega. tonight, decrease zyprexa to 15 mg and start invega 3 mg. otherwise continue current mgmt. 06/13: continues avoidant and disengaged. denies side effects from med change last night. informed cross-titration will advance tonight. decrease zyprexa to 10 mg tonight, increase paliperidone to 6 mg. plan to continue by 5 mg zyprexa and 3 mg paliperidone increments every several days as tolerated until zyprexa DCed and paliperidone at 12 mg QHS. once it is established pt is tolerating PO Paliperidone, invega sustenna to be administered. 06/14: Continue current regimen and plans 06/15: Continue current plans and regimen 06/16: irritable re neuroleptic change. denies side effects or problems with it, however. minimally engageable. increase invega to 9 QHS and decrfease zyprexa to 5 QHS. 06/17/25: Continued to be irritable regarding medication change/titration. However engaged in conversation, hyper verbal, paranoid, reports medication slow his thoughts down and he does not not like it. Poor insight and poor judgment. He thinks he only need lithium, not other medications. Remind patient to continue doing the sleep pattern changing. However his in bed mostly this morning. Slept for 4-5 hours last night. 06/18/25: Slept for 5 hours last night as he continues sleeping during daytime. Compliant with meds, did not c/o side effects.Passingly engaging in assessment. Denies safety concerns. Tolerate the tritation well. Will increase Inveag up to max of 12 tomorrow and Discontinue Olanzepine at HS. Continue to encourage up and out on day so he can sleep better at HS. 06/19/25: Patient slept for 5.5 hours last night, was medication compliant, mostly in his room yesterday but seen more often in the evening. Patient is awake in his room, listen to music, his morning tray was taken away and clean the area. He is very pleasant to talk to today, reports he feels good, denies side effects from medications, denies any safety concerns. Denies feeling sedation, denies anxiety/depression. He is receptive with the plan of medication over the weekends and next week, happy to hear about the medication plan. He also agree with the MONTERO Invega Sustenna on Monday. Encourage him to go out and attended to groups, he said that he will. Reported that he was out for groups a couple of times last week. Discontinue Haldol p.r.n.. Discontinue scheduled Zyprexa 5 mg at bedtime. Only on 10 Zyprexa at g IM daily p.r.n. as backup orders if refused Invega. Invega 12 mg at bedtime. Plan to monitor over the weekends and will give long- acting injection on Monday if tolerate with the p.o. well Reduce Seroquel 200 mg p.r.n. at bedtime to 100 p.r.n. at bedtime for insomnia. Seroquel 50 mg b.i.d. p.r.n. for agitation. Discontinue Motrin. Patient on lithium. Labs were for MondayJune 20: CMP, TSH with free T4. 06/20/25: In bed most of the day, was compliant with medication, however refused labs work. Re- scheduled for Monday. Continue with Invega 12 mg at bedtime. We will reassess and offer long-acting injection on Monday. Continue to encourage patient to get up and go to some groups. No safety concerns expressed. Minimal peer and staff interaction. 06/21: no change in presentation. start MONTERO monday. no s/e from invega. otherwise continue current mgmt. 06/22: stable. continue current mgmt. 06/23/25: More awake and alert. Review with patient regarding policy for his phone use BID 30min each time, patient is educated on compliant with policy. He asks for more 5-10 min extra headphone use at night on the weekends after 2300. Once again, redirected for unit rules. He agrees with MONTERO which is scheduled today. Discontinue Invega PO Invega Sustenna 234mg IM once. Will monitor for possible side effects and sedation. Will offer 156mg after 1 week. If mentaly stable with 156mg, will maintain at this dose, if not will offer 234mg Monthly. 06/24/25: Slept for 5 hours last night, but also went to bed around 7 tonight p.m. last night per his report. He also attended to groups in the afternoon yesterday. Compliant with medications. No side effects from Invega Sustenna. He is engaged in full conversation today why he is in bed, denies safety concerns. Observe he is on the unit, social with peers and staff in longer period of time. Appeared to be happy. He plans to take shower today. Reported that he was up early but he does not feel hungry in the morning. He is making progress, not too sedated during daytime since switching his medication. Appears to do well so far with Invega Sustenna. 06/25/25: Patient slept for 4 hours last night, however he reported was napping in the afternoon for couple hours which affect his sleeping pattern at night. Educate patient to not napping late in the evening. He is receptive. Compliant with medications, no side effects. He reports his did not shower yesterday but he will today. He is awake in his room not sleeping, engage in full conversation, no delusional or paranoid statements make. He is visible at times. Continued to improve in mood, engaging in other activities on the unit. Denies other safety concerns. Denies hallucinations. No irritability mood, not sedated during day time compared to when he was taking olanzapine. We will schedule Invega Sustenna 156 next Monday. Work with social work lecturer to see where he will return to. He probably needs VNA to manage medication. 06/26/25: He slept for 5 hours, compliant with medications. Denies side effects. He self-reported that he went to bed last night and was able to fall asleep by 01:00 and able to stay asleep whole night. Denies safety concerns. I spoke with him in length today regarding aftercare. He thinks he will go to the hospital in [place] to ask them regarding his heart condition. He thinks people was lying to get him to the hospital as he does not have mental health illnesses. He believes that he has been exactly the same he was seen he was a little, and at he able to remember everything in the past. He also reports that he used to use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
--- NOTE | 2025-08-05 09:30 | P.PNPSI_ITS ---
Subjective Subjective Date of Service: 08/05/25 Reason For Visit: psychotic disorder Interim History: Case discussed in tx team. Chart reviewed. Met with pt in his room Pt SW, pt cannot go to [place] with his cousin upon d/c and he lost the [facility] bed. Pt was asleep ~11 am when I entered his room. He woke up after I called his name and briefly looked out of the covers and made eye contact. He denied SI/violent ideation; AH/VH, or any other mental/physical health concerns. I followed up with him this afternoon and he was still lying in bed, totally covered by the sheets, asleep. He eventually awoke to me calling his name and tapping his arm. He confirmed that he cannot go to [place] but didn't know why the plan fell through. He reports that he will arrange to get a [facility] bed on his own. I encourged him to contact his brother but pt stated that he would handle it himself. Review of Systems Review of Systems nothing of note Yes all other systems are reviewed and are negative and Unobtainable due to mental status Mental Status Exam Mental Status Exam Narrative: Appearance: lying in bed, under covers, disheveled. minimal eye contact Attitude: Generally cooperative Speech: Minimal spontaneous speech. Motor activity: Calm and without any tics, tremors or dyskinesias Mood: okay Affect: appropriate, constricted Thought process: goal directed during brief conversation Thought content: as noted above Perception: Denies AH/VH and does not appear to respond to internal stimuli Insight: unable to fully assess due to limited speech Judgment: unable to fully assess due to limited speech but at least fair, based on taking his medications Diagnostics Vital Signs (24Hr): BMI result Body Mass Index 23.2 Labs 06/25/25 08:02 06/20/25 20:35 Medications Medications Current Medications Acetaminophen (Acetaminophen 325 Mg Tablet) 650 mg PO Q4H PRN PRN Reason: Pain, Mild (Pain Scale 1-3) Last Admin: 07/06/25 22:53 Dose: 650 mg Al Hydroxide/Mg Hydroxide (Magnesium Hydrox/Alum Hydrox 30 Ml Oral.Susp) 30 ml PO Q6H PRN PRN Reason: Heart burn Benzocaine (Benzocaine 20 % Oral Gel 14 Gm Tube) 1 appl MUCOUS MEM QID PRN; Protocol PRN Reason: Mouth Sore Pain Last Admin: 04/26/25 18:33 Dose: 1 appl Diazepam (Diazepam 10 Mg/2 Ml Cartridge) 10 mg IM BID PRN PRN Reason: refusal of lithium, per floyd Last Admin: 04/11/25 09:56 Dose: 10 mg Glycopyrrolate (Glycopyrrolate 1 Mg Tablet) 1 mg PO BID [facility] Last Admin: 08/05/25 09:15 Dose: 1 mg Hydrocortisone (Hydrocortisone 1 % Cream 28.35 Gm Tube) 1 appl TOPICAL DAILY PRN; Protocol PRN Reason: rash Last Admin: 07/31/25 17:37 Dose: 1 appl [place] Carbonate ([place] Carbonate Er 300 Mg Tablet.Er) 600 mg PO DAILY [facility] Last Admin: 08/05/25 09:15 Dose: 600 mg [place] Carbonate ([place] Carbonate Er 450 Mg Tablet.Er) 900 mg PO DAILY@2300 [facility] Last Admin: 08/04/25 22:30 Dose: 900 mg Magnesium Hydroxide (Milk Of Magnesia 30 Ml Oral.Susp) 30 ml PO DAILY PRN PRN Reason: Constipation Methimazole (Methimazole 10 Mg Tablet) 10 mg PO DAILY [facility] Last Admin: 08/05/25 09:15 Dose: 10 mg Nicotine (Nicotine 21 Mg Patch.Td24) 21 mg TRANSDERMA DAILY PRN PRN Reason: nicotine cravings Last Admin: 04/12/25 17:06 Dose: 21 mg Nicotine Polacrilex (Nicotine Polacrilex Lozenge 2 Mg Lozenge) 2 mg BUCCAL Q1H PRN PRN Reason: Nicotine Cravings Last Admin: 04/30/25 08:49 Dose: 2 mg Patient Own Medication Excedrin 250/250/65mg 2 each PO Q8H PRN PRN Reason: Migraine Headache Last Admin: 08/04/25 07:28 Dose: 2 each Olanzapine (Olanzapine 10 Mg Vial) 10 mg IM DAILY PRN PRN Reason: if refuse Invega PO Paliperidone Palmitate (Paliperidone Palmitate 234 Mg/1.5 Ml Syringe) 234 mg IM Q30D [facility] Last Admin: 07/28/25 16:55 Dose: 234 mg Pseudoephedrine HCl (Pseudoephedrine Hcl 30 Mg Tablet) 30 mg PO Q6H PRN PRN Reason: Congestion Last Admin: 07/03/25 21:18 Dose: 30 mg Quetiapine Fumarate (Quetiapine Fumarate 100 Mg Tablet) 100 mg PO BEDTIME PRN PRN Reason: insomnia Last Admin: 08/04/25 22:41 Dose: 100 mg Quetiapine Fumarate (Quetiapine Fumarate 50 Mg Tablet) 50 mg PO BID PRN PRN Reason: agitation Last Admin: 08/03/25 00:36 Dose: 50 mg Sodium Chloride (Sodium Chloride 0.65 % Nasal 44 Ml Sprbtl) 1 spray NOSTRIL-B Q4H PRN PRN Reason: Congestion Last Admin: 07/03/25 23:03 Dose: 1 spray Allergies Allergies Allergy/AdvReac Type Severity Reaction Status Date / Time No Known Allergies Allergy Verified 03/26/25 14:24 Assessment & Plan Assessment & Plan (1) Graves disease: Status: Acute Code(s): E05.00 - Thyrotoxicosis with diffuse goiter without thyrotoxic crisis or storm Assessment and Plan: Hyperthyroidism/Graves disease. He will need follow up with endocrinology as an outpatient He will also need a primary care doctor referral as an outpatient Per previous notes- plan was discussed with Dr. Bejarano, patient will need free T4 weekly Methimazole was decreased to 15 mgs daily for three days and then 10 mgs daily (currently on 10 mg qd) TSH and free T4 every 4 weeks. No need to draw thyroid stimulation immunology or TSH receptor AB (2) Dental abscess: Status: Acute Code(s): K04.7 - Periapical abscess without sinus Assessment and Plan: Carious tooth/dental infection Recently treated with PEN VK 500 mg q.6 hours for 7 days Patient will need follow up with dentist on discharge for tooth extraction Motrin helping pain. (3) Becca: Status: Acute Code(s): F30.9 - Manic episode, unspecified Plan 03/26: offer lithium and seroquel for becca. continue methimazole and beta joanne for hyperthyroidism as started at [facility]. trend TFTs. 12b. 03/27: taking methimazole and beta joanne. refused HS meds last night, took morning meds today. continue to encourage medication compliance. 03/28: intermittently taking meds. wants all meds in morning. pressured, manic, paranoid delusions. encouraged to take lithium but states he will not. all meds ordered for morning. 03/29: Keeping to self. no groups. observed laying in bed listening to music on unit headphones. pleasant. Pt reports feeling good today and sleeping well. declined lithium and zyprexa. denies SI/HI/VH/AH. continue current tx plan. 03/30:Irritable. upset he was unable to use his personal hygiene products. Per nursing, pt threatened staff and squeezed tooth paste throughout unit hallway to show his frustration. Pt was able to calm down after speaking with security. declined medications. 03/31: Keeping to self. laying in bed listening to music. refused medications. calm today. Patient reports feeling great ; pt stated, nothing is wrong with me. I'm waiting so I can leave tomorrow. I'm hoping for the best . denies SI/HI/VH/AH. per nursing, slept 6 hours. Continue current tx plan. 04/01: variably calm on the unit versus highly agitated. paranoid delusions, irritability, lability continue. seems to believe MD has met him prior to the present hospitalization and is stalking him. believes brother behind conspiracy to have him psychiatrically hospitalized. has been refusing all medications, including for hyperthyroidism. informed he would be filed on. filed. continue to offer medications. 04/02: continues agitated, belittling, verbally aggressive, refusing all medications including for hyperthyroidism. continue to offer medication. 04/03: paranoid there is a conspiracy to hospitalize him. threatening to stick a stick in staff once he is released by press breaker. insists his hyperthyroidism was cured at [facility]. asserts there is NOTHING wrong with him. continue to offer medication. 04/04: irritable, rejecting. verbally abuses MD and sends him away: see you on monday [in court]. continue to offer medication for thyroid condition and mental illness. 04/05 continue tx. suspicious and guarded, accusatory, verbal threats to hurt staff and peers 04/06 intrusive, posturing towards staff and peer who he thinks is not real and is an impostor, continues to make verbal threats to harm him but thinks that because he is not real he may not experience any pain. 04/07: threatening statements and behaviors of yesterday noted. pt sleeping this morning, dismissive of MD. 04/08: asleep days. committed and meds ordered by court. 04/09: on being informed of court order and MD insisting on meds, pt escalated to hurling food item in container against wall at high speed and saying he wished he could do the same to MD's head. pt eventually took court ordered meds PO. sensodyne and excedrin not available in pharmacy (pt requesting them). 04/10: continue tx. Pt accepting medication today. 04/11: Keeping to self. Lying in bed most of morning. Declined to meet with T/W. Pt stated, I'm fine. I don't need anything . Listening to headphones in room. Declined court ordered PO medications; received IM medications. Refused vital signs.continue tx plan. 04/12: got IMs yesterday, took PO this morning. sleepy, no concerns or complaints. 04/13: taking PO meds again. slept 7 hours. sleepy again mid morning refusing interview. continue current mgmt. 04/14: sleeping, rousable. denies being sedated or tired, says he's just bored. no questions or complaints. informed of need to check labs. check lithium level and thyroid labs tonight. 04/15: refusing labs. delusional re his brother harming him. verbally abusive toward MD. spat in floor. happy with improvement in proptosis. 04/16: Lying in bed. Calm. cooperative. guarded. Pt reports feeling tired this morning d/t poor sleep last night. Pt stated, I don't need anything. I didn't sleep well so I'm trying to catch up . denies any issues at this time. denies SI/HI/VH/AH. Continue current tx plan. 04/17: more calm today, less explosive. continue current mgmt. 04/18: continues more calm. tolerating moments of frustration without verbally attacking MD. slept only 2 hours overnight, however. continue current mgmt. 04/19 continues to push boundaries and limits with staff mike around cell phone- 04/20 - aggressive with staff and unpredictable- threw water pitcher at staff behind desk/-when seen by provider passive in bed-denying all compaints/sys- no insight 04/21: appears as per last week. more difficult behaviors around cell phone use, did throw pitcher of water at RN monday over phone use and was restrained. continue current mgmt. 04/22: continues to have conflict around cell phone use. consolidate zyprexa at HS to decrease daytime sedation. 1:1 allegra shift until peer he is accusing of not being a real patient and appears to be targeting discharges tomorrow. 04/23: lithium 0.6 on 600 BID. sleeping better, remains delusional (telling SW who is marginally younger than him that she could be his daughter). just changed zyprexa dosing as of last night. continue current regimen and observe for continued stabilization. T/C slight increase in lithium dosing. 04/24: Laying in bed. guarded. calm. did not want to get out of bed to meet with T/W. Pt reports feeling great today but declined to go into detail. listening to music on unit headphones. Pt stated, I'm fine. I don't need anything . denies any issues at this time. denies SI/HI/VH/AH. Continue current tx plan. 04/25: Laying in bed. keeping to self. calm. paranoid. Discussed incident that occurred with staff last evening. Pt stated, the counselor made up a lie yesterday. I said she looks like my ex-girlfriend. I know they are related. They want to make up a lie to irritate me. They are trying to talk to me so they can use recording devices and make me look some kind of way . listening to music on unit headphones. denies SI/HI/VH/AH. Continue current tx plan. 04/26: Continue current regimen and plans. Increase Zyprexa 20 mg q.h.s. fresh air break withheld 04/27: Continue current regimen and plans 04/28: somewhat less irritable and agitated than last week. however, over the weekend was claiming he was the father of a footballer on TV and also that a staff member is a twin of his ex-GF (and he pushed staff member). TFTs improving. continue current mgmt. 04/29: no change in presentation. continue current mgmt. 04/30: no irritable edge today. calm, pleasant. engaging in small talk. reality testing not pressed. continue current mgmt for now. 05/01: no change in presentation. continue current mgmt. 05/02: BPs coming down, DC beta joanne as pt has been refusing anyway. remains not antagonistic toward MD. using phone appropriately. continue current mgmt otherwise. 05/03 continue 05/04: remains delusional, irritable/labile when delusional system confronted. declines to sign TOMMY for [facility] records. continue current mgmt. 05/06: declining to meet with MD, but does meet with medical student. remains upset about yesterday's confrontation re his delusional system. 05/07: Active on unit. keeping to self. pacing unit hallway while listening to unit headphones. medication compliant. patient reports feeling good ; pt stated, I'm just waiting to leave here. I want to return to my life and do things like go grocery shopping . denies SI/HI/VH/AH. Continue current tx plan. 05/08: stable presentation, delusions not being brought to the surface daily. remains affectively improved from admission. continue current mgmt. 05/09: calm, pleasant. no questions or complaints. continue current mgmt. 05/10: no change in presentation. due to lack of improvement in dental infection Sx, DC PCN and start augmentin. 05/11: no change in presentation. continue current mgmt. 05/12: as for yesterday. dental pain improving a bit. 05/13: expressed to medical student that his brother poisoned him, causing his thyroid disease. no change in presentation. continue current mgmt. 05/14: Pacing unit hallway. keeping to self. patient reports feeling good today; denies any issues at this time. denies SI/HI/VH/AH. per nursing, slept 5 hours. Continue current tx plan. 05/15: slept 6 hours. otherwise isolative, difficult to engage. continue current mgmt. 05/16: slept 7 hours. as for yesterday otherwise. 05/17/25: Slept well, no issue with appetite, skinny and pretty tall. Compliant with medication. No side effects Calm and pleasant upon approach. Some what paranoid. Tangential, however denies other safety concerns. Questions if he is discharging soon. He is on antibiotic for 7 days for mouth pain/tooth pain. We will finish the 7 course up in antibiotic after tonight dose. Then discontinue. 05/18/25: Slept for 5 hours plus hours this morning. In bed most of the shift, no behavior issues. Denies other safety concerns. 05/19: in bed days, up eves. no change in presentation. continue current mgmt. 05/20: no change in presentation. check labs. 05/21: lithium low, TFTs mixed and not all back. increase lithium from 600 BID to 600/900. trend BUN/Cr, with slight elevation. otherwise continue current mgmt. 05/22: no change in presentation. continue current mgmt. 05/23: does not deny someone stole his sperm and impregnated his landlord's child with it. irritable. c/o dental pain, antibx restarted. otherwise continue current mgmt. 05/14: no change in mgt 05/25: more isolative today; no change in mgt 05/26: decreases in methimazole noted. continue psych regimen as is. pt refused to interact with MD today. 05/27: i'm sleeping. no change in presentation. labs tonight. 05/28: no change in behavior. lithium 0.66, BUN stable. continue current mgmt. 05/29: irritable. continue current mgmt. 05/30: no longer in single room. still not engaging, sleeping days. continue current mgmt. 05/31:laying in bed. declined to meet with T/W. pt stated, I want to sleep. I didn't sleep enough . Pt encouraged to reach out to staff if he needs anything. Continue current tx plan. 06/01: Similar to yesterday. laying in bed. Irritable. declined to meet with T/W and pulled bed sheets over head. pt stated, I don't want to talk. I want to sleep . difficult to engage. Continue current tx plan. 06/02: Similar to yesterday. laying in bed. Irritable. declined to meet with T/W. Observed getting drink from kitchen; T/W approached pt and asked if they could speak. patient declined to acknowledge T/W and walked past. Continue current tx plan. 06/03: no change in behavior. continue tx plan. 06/04/25: Passive engaged in the assessment, in bed mostly sleeping this morning which could be interfere with his nighttime. Cover body under the blanket Slept for 4-5 hours last night. Was medication compliant, attended no groups, isolative to self in room. No SI/SIB/HI/AVH expressed. 06/05: continue tx plan. 06/06: reports feeling fine ; continues guarded. difficult to engage. declining to meet with T/W. continue tx plan. 06/07/25: Slept for 4 hours at night, but has been sleeping most of the day yesterday as well. Spent majority of the shift in bed, was medication compliant. Passive engaged in the conversation. He said he will try to change the sleeping pattern so that he can be awake more during the daytime. Appear to be sedated in the morning. No safety behavior. 06/08/25: Slept for 3-4 hours last night, compliant with medications. Denies side effects, denies other safety concerns. Continued to encourage patient to up and down more than on the unit he spent most of the day sleeping. He is pleasant upon approach. No other behavior issues. Denied voices/hallucinations. Suicide thoughts or homicidal thoughts. 06/09: sleeping, minimally rousable. denies problems. continue current mgmt. 06/10: sleeping all day, up most of the night. minimally rousable. denies problems. continue current mgmt. per JAMAICA Arrington: Jean said when he leaves he can return to [facility]. he was living with a lady there and can go back. He plans to get a job to pay off his debt. He said he owes money because they sent him back here due to losing his passport and he owes them money for the temporary emergency passport and the flight back to the . so his main focus is to get a job. he said he will try things here first and if it doesn't work out he plans to return to [place]. 06/11/25: Passively engaged in conversation while in bed sleeping/resting. Able to answer question appropriately, but seems to be minimized. Denies SI/SIB/HI/AVH. He slept 5 hours last night, spent most of the day in bed sleeping. Attempted to no groups, observed out to the afternoon in the subramanian near the nurse station. No change in presentation. Encourage groups,up and engaged in groups. 06/12: not engaging. no complaints or questions re med changes. cross-taper zyprexa in favor of invega, give MONTERO invega. tongina, decrease zyprexa to 15 mg and start invega 3 mg. otherwise continue current mgmt. 06/13: continues avoidant and disengaged. denies side effects from med change last night. informed cross-titration will advance tonight. decrease zyprexa to 10 mg tonight, increase paliperidone to 6 mg. plan to continue by 5 mg zyprexa and 3 mg paliperidone increments every several days as tolerated until zyprexa DCed and paliperidone at 12 mg QHS. once it is established pt is tolerating PO Paliperidone, invega sustenna to be administered. 06/14: Continue current regimen and plans 06/15: Continue current plans and regimen 06/16: irritable re neuroleptic change. denies side effects or problems with it, however. minimally engageable. increase invega to 9 QHS and decrfease zyprexa to 5 QHS. 06/17/25: Continued to be irritable regarding medication change/titration. However engaged in conversation, hyper verbal, paranoid, reports medication slow his thoughts down and he does not not like it. Poor insight and poor judgment. He thinks he only need lithium, not other medications. Remind patient to continue doing the sleep pattern changing. However his in bed mostly this morning. Slept for 4-5 hours last night. 06/18/25: Slept for 5 hours last night as he continues sleeping during daytime. Compliant with meds, did not c/o side effects.Passingly engaging in assessment. Denies safety concerns. Tolerate the tritation well. Will increase Inveag up to max of 12 tomorrow and Discontinue Olanzepine at HS. Continue to encourage up and out on day so he can sleep better at HS. 06/19/25: Patient slept for 5.5 hours last night, was medication compliant, mostly in his room yesterday but seen more often in the evening. Patient is awake in his room, listen to music, his morning tray was taken away and clean the area. He is very pleasant to talk to today, reports he feels good, denies side effects from medications, denies any safety concerns. Denies feeling sedation, denies anxiety/depression. He is receptive with the plan of medication over the weekends and next week, happy to hear about the medication plan. He also agree with the MONTERO Invega Sustenna on Monday. Encourage him to go out and attended to groups, he said that he will. Reported that he was out for groups a couple of times last week. Discontinue Haldol p.r.n.. Discontinue scheduled Zyprexa 5 mg at bedtime. Only on 10 Zyprexa at g IM daily p.r.n. as backup orders if refused Invega. Invega 12 mg at bedtime. Plan to monitor over the weekends and will give long- acting injection on Monday if tolerate with the p.o. well Reduce Seroquel 200 mg p.r.n. at bedtime to 100 p.r.n. at bedtime for insomnia. Seroquel 50 mg b.i.d. p.r.n. for agitation. Discontinue Motrin. Patient on lithium. Labs were for MondayJune 20: CMP, TSH with free T4. 06/20/25: In bed most of the day, was compliant with medication, however refused labs work. Re- scheduled for Monday. Continue with Invega 12 mg at bedtime. We will reassess and offer long-acting injection on Monday. Continue to encourage patient to get up and go to some groups. No safety concerns expressed. Minimal peer and staff interaction. 06/21: no change in presentation. start MONTERO monday. no s/e from invega. otherwise continue current mgmt. 06/22: stable. continue current mgmt. 06/23/25: More awake and alert. Review with patient regarding policy for his phone use BID 30min each time, patient is educated on compliant with policy. He asks for more 5-10 min extra headphone use at night on the weekends after 2300. Once again, redirected for unit rules. He agrees with MONTERO which is scheduled today. Discontinue Invega PO Invega Sustenna 234mg IM once. Will monitor for possible side effects and sedation. Will offer 156mg after 1 week. If mentaly stable with 156mg, will maintain at this dose, if not will offer 234mg Monthly. 06/24/25: Slept for 5 hours last night, but also went to bed around 7 tonight p.m. last night per his report. He also attended to groups in the afternoon yesterday. Compliant with medications. No side effects from Invega Sustenna. He is engaged in full conversation today why he is in bed, denies safety concerns. Observe he is on the unit, social with peers and staff in longer period of time. Appeared to be happy. He plans to take shower today. Reported that he was up early but he does not feel hungry in the morning. He is making progress, not too sedated during daytime since switching his medication. Appears to do well so far with Invega Sustenna. 06/25/25: Patient slept for 4 hours last night, however he reported was napping in the afternoon for couple hours which affect his sleeping pattern at night. Educate patient to not napping late in the evening. He is receptive. Compliant with medications, no side effects. He reports his did not shower yesterday but he will today. He is awake in his room not sleeping, engage in full conversation, no delusional or paranoid statements make. He is visible at times. Continued to improve in mood, engaging in other activities on the unit. Denies other safety concerns. Denies hallucinations. No irritability mood, not sedated during day time compared to when he was taking olanzapine. We will schedule Invega Sustenna 156 next Monday. Work with perinatal social worker to see where he will return to. He probably needs VNA to manage medication. 06/26/25: He slept for 5 hours, compliant with medications. Denies side effects. He self-reported that he went to bed last night and was able to fall asleep by 01:00 and able to stay asleep whole night. Denies safety concerns. I spoke with him in length today regarding aftercare. He thinks he will go to the hospital in

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
[2025-08-06 19:27] VITALS: BP 120/61; PULSE 86; RESP 16; TEMP 36.9; O2SAT 100
[2025-08-07 08:00] VITALS: BP 141/74; PULSE 82; RESP 16; TEMP 36.4; O2SAT 100
--- NOTE | 2025-08-07 11:54 | HO.PSYCHPN ---
Subjective Subjective Date of Service: 08/07/25 Reason For Visit: psychotic disorder Interim History: Case discussed in tx team. Chart reviewed. Met with pt in his room this afternoon. Per nursing- pt c/o drooling. Pt was in bed with eyes closed when I met w/ him. He opened his eyes when I called his name. He confirmed that he has been drooling still but reports that it's improved overall. Denied significant distress from the SE. Denies SI/violent ideation, AH/VH. Denies feeling over-sedated from his meds, unable to say why he stays in bed for most of the day. Sleeping/eating well no behavioral issues Mental Status Exam Mental Status Exam Narrative: Appearance: lying in bed, fair eye contact. fair grooming Attitude:cooperative Speech: Paucity of spontaneous speech, fluent Motor activity: Calm and without any tics, tremors or dyskinesias Mood: okay Affect: constricted, tired Thought process: goal directed Thought content: as noted above Perception: Denies AH/VH and does not appear to respond to internal stimuli Insight: fair Judgment: fair Diagnostics Vital Signs (24Hr): Vital Signs - 24 hr 08/06/25 19:27 Temperature 98.4 F Pulse Rate 86 Respiratory Rate 16 Blood Pressure 120/61 Pulse Oximetry 100 Oxygen Delivery Method Room Air BMI result Body Mass Index 23.2 Labs 06/25/25 08:02 06/20/25 20:35 Medications Medications Current Medications Acetaminophen (Acetaminophen 325 Mg Tablet) 650 mg PO Q4H PRN PRN Reason: Pain, Mild (Pain Scale 1-3) Last Admin: 07/06/25 22:53 Dose: 650 mg Al Hydroxide/Mg Hydroxide (Magnesium Hydrox/Alum Hydrox 30 Ml Oral.Susp) 30 ml PO Q6H PRN PRN Reason: Heart burn Benzocaine (Benzocaine 20 % Oral Gel 14 Gm Tube) 1 appl MUCOUS MEM QID PRN; Protocol PRN Reason: Mouth Sore Pain Last Admin: 04/26/25 18:33 Dose: 1 appl Diazepam (Diazepam 10 Mg/2 Ml Cartridge) 10 mg IM BID PRN PRN Reason: refusal of lithium, per [place] Last Admin: 04/11/25 09:56 Dose: 10 mg Glycopyrrolate (Glycopyrrolate 1 Mg Tablet) 1 mg PO BID [facility] Last Admin: 08/07/25 08:37 Dose: 1 mg Hydrocortisone (Hydrocortisone 1 % Cream 28.35 Gm Tube) 1 appl TOPICAL DAILY PRN; Protocol PRN Reason: rash Last Admin: 07/31/25 17:37 Dose: 1 appl [place] Carbonate ([place] Carbonate Er 300 Mg Tablet.Er) 600 mg PO DAILY [facility] Last Admin: 08/07/25 08:37 Dose: 600 mg [place] Carbonate ([place] Carbonate Er 450 Mg Tablet.Er) 900 mg PO DAILY@2300 [facility] Last Admin: 08/06/25 23:23 Dose: 900 mg Magnesium Hydroxide (Milk Of Magnesia 30 Ml Oral.Susp) 30 ml PO DAILY PRN PRN Reason: Constipation Methimazole (Methimazole 10 Mg Tablet) 10 mg PO DAILY [facility] Last Admin: 08/07/25 08:37 Dose: 10 mg Nicotine (Nicotine 21 Mg Patch.Td24) 21 mg TRANSDERMA DAILY PRN PRN Reason: nicotine cravings Last Admin: 04/12/25 17:06 Dose: 21 mg Nicotine Polacrilex (Nicotine Polacrilex Lozenge 2 Mg Lozenge) 2 mg BUCCAL Q1H PRN PRN Reason: Nicotine Cravings Last Admin: 04/30/25 08:49 Dose: 2 mg Patient Own Medication Excedrin 250/250/65mg 2 each PO Q8H PRN PRN Reason: Migraine Headache Last Admin: 08/04/25 07:28 Dose: 2 each Olanzapine (Olanzapine 10 Mg Vial) 10 mg IM DAILY PRN PRN Reason: if refuse Invega PO Paliperidone Palmitate (Paliperidone Palmitate 234 Mg/1.5 Ml Syringe) 234 mg IM Q30D [facility] Last Admin: 07/28/25 16:55 Dose: 234 mg Pseudoephedrine HCl (Pseudoephedrine Hcl 30 Mg Tablet) 30 mg PO Q6H PRN PRN Reason: Congestion Last Admin: 07/03/25 21:18 Dose: 30 mg Quetiapine Fumarate (Quetiapine Fumarate 100 Mg Tablet) 100 mg PO BEDTIME PRN PRN Reason: insomnia Last Admin: 08/06/25 23:23 Dose: 100 mg Quetiapine Fumarate (Quetiapine Fumarate 50 Mg Tablet) 50 mg PO BID PRN PRN Reason: agitation Last Admin: 08/03/25 00:36 Dose: 50 mg Sodium Chloride (Sodium Chloride 0.65 % Nasal 44 Ml Sprbtl) 1 spray NOSTRIL-B Q4H PRN PRN Reason: Congestion Last Admin: 07/03/25 23:03 Dose: 1 spray Allergies Allergies Allergy/AdvReac Type Severity Reaction Status Date / Time No Known Allergies Allergy Verified 03/26/25 14:24 Assessment & Plan Assessment & Plan (1) Graves disease: Status: Acute Code(s): E05.00 - Thyrotoxicosis with diffuse goiter without thyrotoxic crisis or storm Assessment and Plan: Hyperthyroidism/Graves disease. He will need follow up with endocrinology as an outpatient He will also need a primary care doctor referral as an outpatient Per previous notes- plan was discussed with Dr. Bejarano, patient will need free T4 weekly Methimazole was decreased to 15 mgs daily for three days and then 10 mgs daily (currently on 10 mg qd) TSH and free T4 every 4 weeks. No need to draw thyroid stimulation immunology or TSH receptor AB (2) Dental abscess: Status: Acute Code(s): K04.7 - Periapical abscess without sinus Assessment and Plan: Carious tooth/dental infection Recently treated with PEN VK 500 mg q.6 hours for 7 days Patient will need follow up with dentist on discharge for tooth extraction Motrin helping pain. (3) Becca: Status: Acute Code(s): F30.9 - Manic episode, unspecified Plan 03/26: offer lithium and seroquel for becca. continue methimazole and beta joanne for hyperthyroidism as started at [facility] [place]. trend TFTs. 12b. 03/27: taking methimazole and beta joanne. refused HS meds last night, took morning meds today. continue to encourage medication compliance. 03/28: intermittently taking meds. wants all meds in morning. pressured, manic, paranoid delusions. encouraged to take lithium but states he will not. all meds ordered for morning. 03/29: Keeping to self. no groups. observed laying in bed listening to music on unit headphones. pleasant. Pt reports feeling good today and sleeping well. declined lithium and zyprexa. denies SI/HI/VH/AH. continue current tx plan. 03/30:Irritable. upset he was unable to use his personal hygiene products. Per nursing, pt threatened staff and squeezed tooth paste throughout unit hallway to show his frustration. Pt was able to calm down after speaking with security. declined medications. 03/31: Keeping to self. laying in bed listening to music. refused medications. calm today. Patient reports feeling great ; pt stated, nothing is wrong with me. I'm waiting so I can leave tomorrow. I'm hoping for the best . denies SI/HI/VH/AH. per nursing, slept 6 hours. Continue current tx plan. 04/01: variably calm on the unit versus highly agitated. paranoid delusions, irritability, lability continue. seems to believe MD has met him prior to the present hospitalization and is stalking him. believes brother behind conspiracy to have him psychiatrically hospitalized. has been refusing all medications, including for hyperthyroidism. informed he would be filed on. filed. continue to offer medications. 04/02: continues agitated, belittling, verbally aggressive, refusing all medications including for hyperthyroidism. continue to offer medication. 04/03: paranoid there is a conspiracy to hospitalize him. threatening to stick a stick in staff once he is released by dining room hostess. insists his hyperthyroidism was [facility]. asserts there is NOTHING wrong with him. continue to offer medication. 04/04: irritable, rejecting. verbally abuses MD and sends him away: see you on monday [in court]. continue to offer medication for thyroid condition and mental illness. 04/05 continue tx. suspicious and guarded, accusatory, verbal threats to hurt staff and peers 04/06 intrusive, posturing towards staff and peer who he thinks is not real and is an impostor, continues to make verbal threats to harm him but thinks that because he is not real he may not experience any pain. 04/07: threatening statements and behaviors of yesterday noted. pt sleeping this morning, dismissive of MD. 04/08: asleep days. committed and meds ordered by court. 04/09: on being informed of court order and MD insisting on meds, pt escalated to hurling food item in container against wall at high speed and saying he wished he could do the same to MD's head. pt eventually took court ordered meds PO. sensodyne and excedrin not available in pharmacy (pt requesting them). 04/10: continue tx. Pt accepting medication today. 04/11: Keeping to self. Lying in bed most of morning. Declined to meet with T/W. Pt stated, I'm fine. I don't need anything . Listening to headphones in room. Declined court ordered PO medications; received IM medications. Refused vital signs.continue tx plan. 04/12: got IMs yesterday, took PO this morning. sleepy, no concerns or complaints. 04/13: taking PO meds again. slept 7 hours. sleepy again mid morning refusing interview. continue current mgmt. 04/14: sleeping, rousable. denies being sedated or tired, says he's just bored. no questions or complaints. informed of need to check labs. check lithium level and thyroid labs tonight. 04/15: refusing labs. delusional re his brother harming him. verbally abusive toward MD. spat in floor. happy with improvement in proptosis. 04/16: Lying in bed. Calm. cooperative. guarded. Pt reports feeling tired this morning d/t poor sleep last night. Pt stated, I don't need anything. I didn't sleep well so I'm trying to catch up . denies any issues at this time. denies SI/HI/VH/AH. Continue current tx plan. 04/17: more calm today, less explosive. continue current mgmt. 04/18: continues more calm. tolerating moments of frustration without verbally attacking MD. slept only 2 hours overnight, however. continue current mgmt. 04/19 continues to push boundaries and limits with staff mike around cell phone- 04/20 - aggressive with staff and unpredictable- threw water pitcher at staff behind desk/-when seen by provider passive in bed-denying all compaints/sys- no insight 04/21: appears as per last week. more difficult behaviors around cell phone use, did throw pitcher of water at RN monday over phone use and was restrained. continue current mgmt. 04/22: continues to have conflict around cell phone use. consolidate zyprexa at HS to decrease daytime sedation. 1:1 allegra shift until peer he is accusing of not being a real patient and appears to be targeting discharges tomorrow. 04/23: lithium 0.6 on 600 BID. sleeping better, remains delusional (telling SW who is marginally younger than him that she could be his daughter). just changed zyprexa dosing as of last night. continue current regimen and observe for continued stabilization. T/C slight increase in lithium dosing. 04/24: Laying in bed. guarded. calm. did not want to get out of bed to meet with T/W. Pt reports feeling great today but declined to go into detail. listening to music on unit headphones. Pt stated, I'm fine. I don't need anything . denies any issues at this time. denies SI/HI/VH/AH. Continue current tx plan. 04/25: Laying in bed. keeping to self. calm. paranoid. Discussed incident that occurred with staff last evening. Pt stated, the counselor made up a lie yesterday. I said she looks like my ex-girlfriend. I know they are related. They want to make up a lie to irritate me. They are trying to talk to me so they can use recording devices and make me look some kind of way . listening to music on unit headphones. denies SI/HI/VH/AH. Continue current tx plan. 04/26: Continue current regimen and plans. Increase Zyprexa 20 mg q.h.s. fresh air break withheld 04/27: Continue current regimen and plans 04/28: somewhat less irritable and agitated than last week. however, over the weekend was claiming he was the father of a footballer on TV and also that a staff member is a twin of his ex-GF (and he pushed staff member). TFTs improving. continue current mgmt. 04/29: no change in presentation. continue current mgmt. 04/30: no irritable edge today. calm, pleasant. engaging in small talk. reality testing not pressed. continue current mgmt for now. 05/01: no change in presentation. continue current mgmt. 05/02: BPs coming down, DC beta joanne as pt has been refusing anyway. remains not antagonistic toward MD. using phone appropriately. continue current mgmt otherwise. 05/03 continue 05/04: remains delusional, irritable/labile when delusional system confronted. declines to sign TOMMY for [facility]. continue current mgmt. 05/06: declining to meet with MD, but does meet with medical student. remains upset about yesterday's confrontation re his delusional system. 05/07: Active on unit. keeping to self. pacing unit hallway while listening to unit headphones. medication compliant. patient reports feeling good ; pt stated, I'm just waiting to leave here. I want to return to my life and do things like go grocery shopping . denies SI/HI/VH/AH. Continue current tx plan. 05/08: stable presentation, delusions not being brought to the surface daily. remains affectively improved from admission. continue current mgmt. 05/09: calm, pleasant. no questions or complaints. continue current mgmt. 05/10: no change in presentation. due to lack of improvement in dental infection Sx, DC PCN and start augmentin. 05/11: no change in presentation. continue current mgmt. 05/12: as for yesterday. dental pain improving a bit. 05/13: expressed to medical student that his brother poisoned him, causing his thyroid disease. no change in presentation. continue current mgmt. 05/14: Pacing unit hallway. keeping to self. patient reports feeling good today; denies any issues at this time. denies SI/HI/VH/AH. per nursing, slept 5 hours. Continue current tx plan. 05/15: slept 6 hours. otherwise isolative, difficult to engage. continue current mgmt. 05/16: slept 7 hours. as for yesterday otherwise. 05/17/25: Slept well, no issue with appetite, skinny and pretty tall. Compliant with medication. No side effects Calm and pleasant upon approach. Some what paranoid. Tangential, however denies other safety concerns. Questions if he is discharging soon. He is on antibiotic for 7 days for mouth pain/tooth pain. We will finish the 7 course up in antibiotic after tonight dose. Then discontinue. 05/18/25: Slept for 5 hours plus hours this morning. In bed most of the shift, no behavior issues. Denies other safety concerns. 05/19: in bed days, up eves. no change in presentation. continue current mgmt. 05/20: no change in presentation. check labs. 05/21: lithium low, TFTs mixed and not all back. increase lithium from 600 BID to 600/900. trend BUN/Cr, with slight elevation. otherwise continue current mgmt. 05/22: no change in presentation. continue current mgmt. 05/23: does not deny someone stole his sperm and impregnated his landlord's child with it. irritable. c/o dental pain, antibx restarted. otherwise continue current mgmt. 05/14: no change in mgt 05/25: more isolative today; no change in mgt 05/26: decreases in methimazole noted. continue psych regimen as is. pt refused to interact with MD today. 05/27: i'm sleeping. no change in presentation. labs tonight. 05/28: no change in behavior. lithium 0.66, BUN stable. continue current mgmt. 05/29: irritable. continue current mgmt. 05/30: no longer in single room. still not engaging, sleeping days. continue current mgmt. 05/31:laying in bed. declined to meet with T/W. pt stated, I want to sleep. I didn't sleep enough . Pt encouraged to reach out to staff if he needs anything. Continue current tx plan. 06/01: Similar to yesterday. laying in bed. Irritable. declined to meet with T/W and pulled bed sheets over head. pt stated, I don't want to talk. I want to sleep . difficult to engage. Continue current tx plan. 06/02: Similar to yesterday. laying in bed. Irritable. declined to meet with T/W. Observed getting drink from kitchen; T/W approached pt and asked if they could speak. patient declined to acknowledge T/W and walked past. Continue current tx plan. 06/03: no change in behavior. continue tx plan. 06/04/25: Passive engaged in the assessment, in bed mostly sleeping this morning which could be interfere with his nighttime. Cover body under the blanket Slept for 4-5 hours last night. Was medication compliant, attended no groups, isolative to self in room. No SI/SIB/HI/AVH expressed. 06/05: continue tx plan. 06/06: reports feeling fine ; continues guarded. difficult to engage. declining to meet with T/W. continue tx plan. 06/07/25: Slept for 4 hours at night, but has been sleeping most of the day yesterday as well. Spent majority of the shift in bed, was medication compliant. Passive engaged in the conversation. He said he will try to change the sleeping pattern so that he can be awake more during the daytime. Appear to be sedated in the morning. No safety behavior. 06/08/25: Slept for 3-4 hours last night, compliant with medications. Denies side effects, denies other safety concerns. Continued to encourage patient to up and down more than on the unit he spent most of the day sleeping. He is pleasant upon approach. No other behavior issues. Denied voices/hallucinations. Suicide thoughts or homicidal thoughts. 06/09: sleeping, minimally rousable. denies problems. continue current mgmt. 06/10: sleeping all day, up most of the night. minimally rousable. denies problems. continue current mgmt. per JAMAICA Arrington: Jean said when he leaves he can return to [facility]. he was living with a lady there and can go back. He plans to get a job to pay off his debt. He said he owes money because they sent him back here due to losing his passport and he owes them money for the temporary emergency passport and the flight back to the . so his main focus is to get a job. he said he will try things here first and if it doesn't work out he plans to return to [place]. 06/11/25: Passively engaged in conversation while in bed sleeping/resting. Able to answer question appropriately, but seems to be minimized. Denies SI/SIB/HI/AVH. He slept 5 hours last night, spent most of the day in bed sleeping. Attempted to no groups, observed out to the afternoon in the subramanian near the nurse station. No change in presentation. Encourage groups,up and engaged in groups. 06/12: not engaging. no complaints or questions re med changes. cross-taper zyprexa in favor of invega, give MONTERO invega. tonight, decrease zyprexa to 15 mg and start invega 3 mg. otherwise continue current mgmt. 06/13: continues avoidant and disengaged. denies side effects from med change last night. informed cross-titration will advance tonight. decrease zyprexa to 10 mg tonight, increase paliperidone to 6 mg. plan to continue by 5 mg zyprexa and 3 mg paliperidone increments every several days as tolerated until zyprexa DCed and paliperidone at 12 mg QHS. once it is established pt is tolerating PO Paliperidone, invega sustenna to be administered. 06/14: Continue current regimen and plans 06/15: Continue current plans and regimen 06/16: irritable re neuroleptic change. denies side effects or problems with it, however. minimally engageable. increase invega to 9 QHS and decrfease zyprexa to 5 QHS. 06/17/25: Continued to be irritable regarding medication change/titration. However engaged in conversation, hyper verbal, paranoid, reports medication slow his thoughts down and he does not not like it. Poor insight and poor judgment. He thinks he only need lithium, not other medications. Remind patient to continue doing the sleep pattern changing. However his in bed mostly this morning. Slept for 4-5 hours last night. 06/18/25: Slept for 5 hours last night as he continues sleeping during daytime. Compliant with meds, did not c/o side effects.Passingly engaging in assessment. Denies safety concerns. Tolerate the tritation well. Will increase Inveag up to max of 12 tomorrow and Discontinue Olanzepine at HS. Continue to encourage up and out on day so he can sleep better at HS. 06/19/25: Patient slept for 5.5 hours last night, was medication compliant, mostly in his room yesterday but seen more often in the evening. Patient is awake in his room, listen to music, his morning tray was taken away and clean the area. He is very pleasant to talk to today, reports he feels good, denies side effects from medications, denies any safety concerns. Denies feeling sedation, denies anxiety/depression. He is receptive with the plan of medication over the weekends and next week, happy to hear about the medication plan. He also agree with the MONTERO Invega Sustenna on Monday. Encourage him to go out and attended to groups, he said that he will. Reported that he was out for groups a couple of times last week. Discontinue Haldol p.r.n.. Discontinue scheduled Zyprexa 5 mg at bedtime. Only on Zyprexa at g IM daily p.r.n. as backup orders if refused Invega. Invega 12 mg at bedtime. Plan to monitor over the weekends and will give long-acting injection on Monday if tolerate with the p.o. well Reduce Seroquel 200 mg p.r.n. at bedtime to 100 p.r.n. at bedtime for insomnia. Seroquel 50 mg b.i.d. p.r.n. for agitation. Discontinue Motrin. Patient on lithium. Labs were for MondayJune 20: CMP, TSH with free T4. 06/20/25: In bed most of the day, was compliant with medication, however refused labs work. Re- scheduled for Monday. Continue with Invega 12 mg at bedtime. We will reassess and offer long-acting injection on Monday. Continue to encourage patient to get up and go to some groups. No safety concerns expressed. Minimal peer and staff interaction. 06/21: no change in presentation. start MONTERO monday. no s/e from invega. otherwise continue current mgmt. 06/22: stable. continue current mgmt. 06/23/25: More awake and alert. Review with patient regarding policy for his phone use BID 30min each time, patient is educated on compliant with policy. He asks for more 5-10 min extra headphone use at night on the weekends after 2300. Once again, redirected for unit rules. He agrees with MONTERO which is scheduled today. Discontinue Invega PO Invega Sustenna 234mg IM once. Will monitor for possible side effects and sedation. Will offer 156mg after 1 week. If mentaly stable with 156mg, will maintain at this dose, if not will offer 234mg Monthly. 06/24/25: Slept for 5 hours last night, but also went to bed around 7 tonight p.m. last night per his report. He also attended to groups in the afternoon yesterday. Compliant with medications. No side effects from Invega Sustenna. He is engaged in full conversation today why he is in bed, denies safety concerns. Observe he is on the unit, social with peers and staff in longer period of time. Appeared to be happy. He plans to take shower today. Reported that he was up early but he does not feel hungry in the morning. He is making progress, not too sedated during daytime since switching his medication. Appears to do well so far with Invega Sustenna. 06/25/25: Patient slept for 4 hours last night, however he reported was napping in the afternoon for couple hours which affect his sleeping pattern at night. Educate patient to not napping late in the evening. He is receptive. Compliant with medications, no side effects. He reports his did not shower yesterday but he will today. He is awake in his room not sleeping, engage in full conversation, no delusional or paranoid statements make. He is visible at times. Continued to improve in mood, engaging in other activities on the unit. Denies other safety concerns. Denies hallucinations. No irritability mood, not sedated during day time compared to when he was taking olanzapine. We will schedule Invega Sustenna 156 next Monday. Work with social media executive to see where he will return to. He probably needs [facility]NA to manage medication. 06/26/25: He slept for 5 hours, compliant with medications. Denies side effects. He self-reported that he went to bed last night and was able to fall asleep by 01:00 and able to stay asleep whole night. Denies safety concerns. I spoke with him in length today regarding aftercare. He thinks he will go to the hospital in [place] to ask them regarding his heart condition. He thinks people was lying to get him to the hospital as he does not have mental health illnesses. He believes that he has been exactly the same he was seen he was a little, and at he able to remember everything in the past. He also reports that he used to use [employer] in [place]. At 1st he does not want [facility] application. I explained to him that in order to be a candidate patient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
[2025-08-07 20:00] VITALS: BP 141/74; PULSE 82; RESP 16; TEMP 36.4; O2SAT 100
--- NOTE | 2025-08-08 17:58 | P.PNPSI_ITS ---
Subjective Subjective Date of Service: 08/08/25 Reason For Visit: psychotic disorder Interim History: Chart reviewed, case discussed w/ tx team Per team- pt tends to spend more time in the milieu in the evening. Continues to sleep for much of the day I met w/ pt in his room early this afternoon, where he was lying in bed in the dark but awake. He denies any psychiatric/physical concerns. Reports sleeping/eating well. Pt was in the milieu later this afternoon and greeted t/w. Medication Compliance: Yes Side effects from medications: No Attending Groups: No Mental Status Exam Mental Status Exam Narrative: Appearance: Grooming/hygiene wnl. Hair covered w/ a cap. Good eye contact Attitude:cooperative Speech: Paucity of spontaneous speech, fluent Motor activity: Calm and without any tics, tremors or dyskinesias Mood: okay Affect: appropriate, bright when he was up and walking Thought process: goal directed Thought content: as noted above Perception: Denies AH/VH and does not appear to respond to internal stimuli Insight: fair Judgment: fair Diagnostics Vital Signs (24Hr): Vital Signs - 24 hr 08/07/25 20:00 Temperature 97.5 F Pulse Rate 82 Respiratory Rate 16 Blood Pressure 141/74 H Pulse Oximetry 100 Oxygen Delivery Method Room Air BMI result Body Mass Index 23.2 Labs 06/25/25 08:02 06/20/25 20:35 Medications Medications Current Medications Acetaminophen (Acetaminophen 325 Mg Tablet) 650 mg PO Q4H PRN PRN Reason: Pain, Mild (Pain Scale 1-3) Last Admin: 07/06/25 22:53 Dose: 650 mg Al Hydroxide/Mg Hydroxide (Magnesium Hydrox/Alum Hydrox 30 Ml Oral.Susp) 30 ml PO Q6H PRN PRN Reason: Heart burn Benzocaine (Benzocaine 20 % Oral Gel 14 Gm Tube) 1 appl MUCOUS MEM QID PRN; Protocol PRN Reason: Mouth Sore Pain Last Admin: 04/26/25 18:33 Dose: 1 appl Diazepam (Diazepam 10 Mg/2 Ml Cartridge) 10 mg IM BID PRN PRN Reason: refusal of lithium, per [place] Last Admin: 04/11/25 09:56 Dose: 10 mg Glycopyrrolate (Glycopyrrolate 1 Mg Tablet) 1 mg PO BID [facility] Last Admin: 08/08/25 08:54 Dose: 1 mg Hydrocortisone (Hydrocortisone 1 % Cream 28.35 Gm Tube) 1 appl TOPICAL DAILY PRN; Protocol PRN Reason: rash Last Admin: 07/31/25 17:37 Dose: 1 appl [place] Carbonate ([place] Carbonate Er 300 Mg Tablet.Er) 600 mg PO DAILY [facility] Last Admin: 08/08/25 08:54 Dose: 600 mg [place] Carbonate ([place] Carbonate Er 450 Mg Tablet.Er) 900 mg PO DAILY@2300 KRISTAL Last Admin: 08/07/25 22:55 Dose: 900 mg Magnesium Hydroxide (Milk Of Magnesia 30 Ml Oral.Susp) 30 ml PO DAILY PRN PRN Reason: Constipation Methimazole (Methimazole 10 Mg Tablet) 10 mg PO DAILY [facility] Last Admin: 08/08/25 08:54 Dose: 10 mg Nicotine (Nicotine 21 Mg Patch.Td24) 21 mg TRANSDERMA DAILY PRN PRN Reason: nicotine cravings Last Admin: 04/12/25 17:06 Dose: 21 mg Nicotine Polacrilex (Nicotine Polacrilex Lozenge 2 Mg Lozenge) 2 mg BUCCAL Q1H PRN PRN Reason: Nicotine Cravings Last Admin: 04/30/25 08:49 Dose: 2 mg Patient Own Medication Excedrin 250/250/65mg 2 each PO Q8H PRN PRN Reason: Migraine Headache Last Admin: 08/04/25 07:28 Dose: 2 each Olanzapine (Olanzapine 10 Mg Vial) 10 mg IM DAILY PRN PRN Reason: if refuse Invega PO Paliperidone Palmitate (Paliperidone Palmitate 234 Mg/1.5 Ml Syringe) 234 mg IM Q30D [facility] Last Admin: 07/28/25 16:55 Dose: 234 mg Pseudoephedrine HCl (Pseudoephedrine Hcl 30 Mg Tablet) 30 mg PO Q6H PRN PRN Reason: Congestion Last Admin: 07/03/25 21:18 Dose: 30 mg Quetiapine Fumarate (Quetiapine Fumarate 100 Mg Tablet) 100 mg PO BEDTIME PRN PRN Reason: insomnia Last Admin: 08/07/25 22:55 Dose: 100 mg Quetiapine Fumarate (Quetiapine Fumarate 50 Mg Tablet) 50 mg PO BID PRN PRN Reason: agitation Last Admin: 08/03/25 00:36 Dose: 50 mg Sodium Chloride (Sodium Chloride 0.65 % Nasal 44 Ml Sprbtl) 1 spray NOSTRIL-B Q4H PRN PRN Reason: Congestion Last Admin: 07/03/25 23:03 Dose: 1 spray Allergies Allergies Allergy/AdvReac Type Severity Reaction Status Date / Time No Known Allergies Allergy Verified 03/26/25 14:24 Assessment & Plan Assessment & Plan (1) Graves disease: Status: Acute Code(s): E05.00 - Thyrotoxicosis with diffuse goiter without thyrotoxic crisis or storm Assessment and Plan: Hyperthyroidism/Graves disease. He will need follow up with endocrinology as an outpatient He will also need a primary care doctor referral as an outpatient Per previous notes- plan was discussed with Dr. Bejarano, patient will need free T4 weekly Methimazole was decreased to 15 mgs daily for three days and then 10 mgs daily (currently on 10 mg qd) TSH and free T4 every 4 weeks. No need to draw thyroid stimulation immunology or TSH receptor AB (2) Dental abscess: Status: Acute Code(s): K04.7 - Periapical abscess without sinus Assessment and Plan: Carious tooth/dental infection Recently treated with PEN VK 500 mg q.6 hours for 7 days Patient will need follow up with dentist on discharge for tooth extraction Motrin helping pain. (3) Becca: Status: Acute Code(s): F30.9 - Manic episode, unspecified Plan 03/26: offer lithium and seroquel for becca. continue methimazole and beta joanne for hyperthyroidism as started at [facility] [place]. trend TFTs. 12b. 03/27: taking methimazole and beta joanne. refused HS meds last night, took morning meds today. continue to encourage medication compliance. 03/28: intermittently taking meds. wants all meds in morning. pressured, manic, paranoid delusions. encouraged to take lithium but states he will not. all meds ordered for morning. 03/29: Keeping to self. no groups. observed laying in bed listening to music on unit headphones. pleasant. Pt reports feeling good today and sleeping well. declined lithium and zyprexa. denies SI/HI/VH/AH. continue current tx plan. 03/30:Irritable. upset he was unable to use his personal hygiene products. Per nursing, pt threatened staff and squeezed tooth paste throughout unit hallway to show his frustration. Pt was able to calm down after speaking with security. declined medications. 03/31: Keeping to self. laying in bed listening to music. refused medications. calm today. Patient reports feeling great ; pt stated, nothing is wrong with me. I'm waiting so I can leave tomorrow. I'm hoping for the best . denies SI/HI/VH/AH. per nursing, slept 6 hours. Continue current tx plan. 04/01: variably calm on the unit versus highly agitated. paranoid delusions, irritability, lability continue. seems to believe MD has met him prior to the present hospitalization and is stalking him. believes brother behind conspiracy to have him psychiatrically hospitalized. has been refusing all medications, including for hyperthyroidism. informed he would be filed on. filed. continue to offer medications. 04/02: continues agitated, belittling, verbally aggressive, refusing all medications including for hyperthyroidism. continue to offer medication. 04/03: paranoid there is a conspiracy to hospitalize him. threatening to stick a stick in staff once he is released by paper machine operator. insists his hyperthyroidism was cured at [facility]. asserts there is NOTHING wrong with him. continue to offer medication. 04/04: irritable, rejecting. verbally abuses MD and sends him away: see you on monday [in court]. continue to offer medication for thyroid condition and mental illness. 04/05 continue tx. suspicious and guarded, accusatory, verbal threats to hurt staff and peers 04/06 intrusive, posturing towards staff and peer who he thinks is not real and is an impostor, continues to make verbal threats to harm him but thinks that because he is not real he may not experience any pain. 04/07: threatening statements and behaviors of yesterday noted. pt sleeping this morning, dismissive of MD. 04/08: asleep days. committed and meds ordered by court. 04/09: on being informed of court order and MD insisting on meds, pt escalated to hurling food item in container against wall at high speed and saying he wished he could do the same to MD's head. pt eventually took court ordered meds PO. sensodyne and excedrin not available in pharmacy (pt requesting them). 04/10: continue tx. Pt accepting medication today. 04/11: Keeping to self. Lying in bed most of morning. Declined to meet with T/W. Pt stated, I'm fine. I don't need anything . Listening to headphones in room. Declined court ordered PO medications; received IM medications. Refused vital signs.continue tx plan. 04/12: got IMs yesterday, took PO this morning. sleepy, no concerns or complaints. 04/13: taking PO meds again. slept 7 hours. sleepy again mid morning refusing interview. continue current mgmt. 04/14: sleeping, rousable. denies being sedated or tired, says he's just bored. no questions or complaints. informed of need to check labs. check lithium level and thyroid labs tonight. 04/15: refusing labs. delusional re his brother harming him. verbally abusive toward MD. spat in floor. happy with improvement in proptosis. 04/16: Lying in bed. Calm. cooperative. guarded. Pt reports feeling tired this morning d/t poor sleep last night. Pt stated, I don't need anything. I didn't sleep well so I'm trying to catch up . denies any issues at this time. denies SI/HI/VH/AH. Continue current tx plan. 04/17: more calm today, less explosive. continue current mgmt. 04/18: continues more calm. tolerating moments of frustration without verbally attacking MD. slept only 2 hours overnight, however. continue current mgmt. 04/19 continues to push boundaries and limits with staff mike around cell phone- 04/20 - aggressive with staff and unpredictable- threw water pitcher at staff behind desk/-when seen by provider passive in bed-denying all compaints/sys- no insight 04/21: appears as per last week. more difficult behaviors around cell phone use, did throw pitcher of water at RN monday over phone use and was restrained. continue current mgmt. 04/22: continues to have conflict around cell phone use. consolidate zyprexa at HS to decrease daytime sedation. 1:1 allegra shift until peer he is accusing of not being a real patient and appears to be targeting discharges tomorrow. 04/23: lithium 0.6 on 600 BID. sleeping better, remains delusional (telling SW who is marginally younger than him that she could be his daughter). just changed zyprexa dosing as of last night. continue current regimen and observe for continued stabilization. T/C slight increase in lithium dosing. 04/24: Laying in bed. guarded. calm. did not want to get out of bed to meet with T/W. Pt reports feeling great today but declined to go into detail. listening to music on unit headphones. Pt stated, I'm fine. I don't need anything . denies any issues at this time. denies SI/HI/VH/AH. Continue current tx plan. 04/25: Laying in bed. keeping to self. calm. paranoid. Discussed incident that occurred with staff last evening. Pt stated, the counselor made up a lie yesterday. I said she looks like my ex-girlfriend. I know they are related. They want to make up a lie to irritate me. They are trying to talk to me so they can use recording devices and make me look some kind of way . listening to music on unit headphones. denies SI/HI/VH/AH. Continue current tx plan. 04/26: Continue current regimen and plans. Increase Zyprexa 20 mg q.h.s. fresh air break withheld 04/27: Continue current regimen and plans 04/28: somewhat less irritable and agitated than last week. however, over the weekend was claiming he was the father of a footballer on TV and also that a staff member is a twin of his ex-GF (and he pushed staff member). TFTs improving. continue current mgmt. 04/29: no change in presentation. continue current mgmt. 04/30: no irritable edge today. calm, pleasant. engaging in small talk. reality testing not pressed. continue current mgmt for now. 05/01: no change in presentation. continue current mgmt. 05/02: BPs coming down, DC beta joanne as pt has been refusing anyway. remains not antagonistic toward MD. using phone appropriately. continue current mgmt otherwise. 05/03 continue 05/04: remains delusional, irritable/labile when delusional system confronted. declines to sign TOMMY for [facility]. continue current mgmt. 05/06: declining to meet with MD, but does meet with medical student. remains upset about yesterday's confrontation re his delusional system. 05/07: Active on unit. keeping to self. pacing unit hallway while listening to unit headphones. medication compliant. patient reports feeling good ; pt stated, I'm just waiting to leave here. I want to return to my life and do things like go grocery shopping . denies SI/HI/VH/AH. Continue current tx plan. 05/08: stable presentation, delusions not being brought to the surface daily. remains affectively improved from admission. continue current mgmt. 05/09: calm, pleasant. no questions or complaints. continue current mgmt. 05/10: no change in presentation. due to lack of improvement in dental infection Sx, DC PCN and start augmentin. 05/11: no change in presentation. continue current mgmt. 05/12: as for yesterday. dental pain improving a bit. 05/13: expressed to medical student that his brother poisoned him, causing his thyroid disease. no change in presentation. continue current mgmt. 05/14: Pacing unit hallway. keeping to self. patient reports feeling good today; denies any issues at this time. denies SI/HI/VH/AH. per nursing, slept 5 hours. Continue current tx plan. 05/15: slept 6 hours. otherwise isolative, difficult to engage. continue current mgmt. 05/16: slept 7 hours. as for yesterday otherwise. 05/17/25: Slept well, no issue with appetite, skinny and pretty tall. Compliant with medication. No side effects Calm and pleasant upon approach. Some what paranoid. Tangential, however denies other safety concerns. Questions if he is discharging soon. He is on antibiotic for 7 days for mouth pain/tooth pain. We will finish the 7 course up in antibiotic after tonight dose. Then discontinue. 05/18/25: Slept for 5 hours plus hours this morning. In bed most of the shift, no behavior issues. Denies other safety concerns. 05/19: in bed days, up eves. no change in presentation. continue current mgmt. 05/20: no change in presentation. check labs. 05/21: lithium low, TFTs mixed and not all back. increase lithium from 600 BID to 600/900. trend BUN/Cr, with slight elevation. otherwise continue current mgmt. 7/17: no change in presentation. continue current mgmt. 05/23: does not deny someone stole his sperm and impregnated his landlord's child with it. irritable. c/o dental pain, antibx restarted. otherwise continue current mgmt. 05/14: no change in mgt 05/25: more isolative today; no change in mgt 05/26: decreases in methimazole noted. continue psych regimen as is. pt refused to interact with MD today. 05/27: i'm sleeping. no change in presentation. labs tonight. 05/28: no change in behavior. lithium 0.66, BUN stable. continue current mgmt. 05/29: irritable. continue current mgmt. 05/30: no longer in single room. still not engaging, sleeping days. continue current mgmt. 05/31:laying in bed. declined to meet with T/W. pt stated, I want to sleep. I didn't sleep enough . Pt encouraged to reach out to staff if he needs anything. Continue current tx plan. 06/01: Similar to yesterday. laying in bed. Irritable. declined to meet with T/W and pulled bed sheets over head. pt stated, I don't want to talk. I want to sleep . difficult to engage. Continue current tx plan. 06/02: Similar to yesterday. laying in bed. Irritable. declined to meet with T/W. Observed getting drink from kitchen; T/W approached pt and asked if they could speak. patient declined to acknowledge T/W and walked past. Continue current tx plan. 06/03: no change in behavior. continue tx plan. 06/04/25: Passive engaged in the assessment, in bed mostly sleeping this morning which could be interfere with his nighttime. Cover body under the blanket Slept for 4-5 hours last night. Was medication compliant, attended no groups, isolative to self in room. No SI/SIB/HI/AVH expressed. 06/05: continue tx plan. 06/06: reports feeling fine ; continues guarded. difficult to engage. declining to meet with T/W. continue tx plan. 06/07/25: Slept for 4 hours at night, but has been sleeping most of the day yesterday as well. Spent majority of the shift in bed, was medication compliant. Passive engaged in the conversation. He said he will try to change the sleeping pattern so that he can be awake more during the daytime. Appear to be sedated in the morning. No safety behavior. 06/08/25: Slept for 3-4 hours last night, compliant with medications. Denies side effects, denies other safety concerns. Continued to encourage patient to up and down more than on the unit he spent most of the day sleeping. He is pleasant upon approach. No other behavior issues. Denied voices/hallucinations. Suicide thoughts or homicidal thoughts. 06/09: sleeping, minimally rousable. denies problems. continue current mgmt. 06/10: sleeping all day, up most of the night. minimally rousable. denies problems. continue current mgmt. per JAMAICA Arrington: Jean said when he leaves he can return to [facility]. he was living with a lady there and can go back. He plans to get a job to pay off his debt. He said he owes money because they sent him back here due to losing his passport and he owes them money for the temporary emergency passport and the flight back to the . so his main focus is to get a job. he said he will try things here first and if it doesn't work out he plans to return to [place]. 06/11/25: Passively engaged in conversation while in bed sleeping/resting. Able to answer question appropriately, but seems to be minimized. Denies SI/SIB/HI/AVH. He slept 5 hours last night, spent most of the day in bed sleeping. Attempted to no groups, observed out to the afternoon in the subramanian near the nurse station. No change in presentation. Encourage groups,up and engaged in groups. 06/12: not engaging. no complaints or questions re med changes. cross-taper zyprexa in favor of invega, give MONTERO invega. tonight, decrease zyprexa to 15 mg and start invega 3 mg. otherwise continue current mgmt. 06/13: continues avoidant and disengaged. denies side effects from med change last night. informed cross-titration will advance tonight. decrease zyprexa to 10 mg tonight, increase paliperidone to 6 mg. plan to continue by 5 mg zyprexa and 3 mg paliperidone increments every several days as tolerated until zyprexa DCed and paliperidone at 12 mg QHS. once it is established pt is tolerating PO Paliperidone, invega sustenna to be administered. 06/14: Continue current regimen and plans 06/15: Continue current plans and regimen 06/16: irritable re neuroleptic change. denies side effects or problems with it, however. minimally engageable. increase invega to 9 QHS and decrfease zyprexa to 5 QHS. 06/17/25: Continued to be irritable regarding medication change/titration. However engaged in conversation, hyper verbal, paranoid, reports medication slow his thoughts down and he does not not like it. Poor insight and poor judgment. He thinks he only need lithium, not other medications. Remind patient to continue doing the sleep pattern changing. However his in bed mostly this morning. Slept for 4-5 hours last night. 06/18/25: Slept for 5 hours last night as he continues sleeping during daytime. Compliant with meds, did not c/o side effects.Passingly engaging in assessment. Denies safety concerns. Tolerate the tritation well. Will increase Inveag up to max of 12 tomorrow and Discontinue Olanzepine at HS. Continue to encourage up and out on day so he can sleep better at HS. 06/19/25: Patient slept for 5.5 hours last night, was medication compliant, mostly in his room yesterday but seen more often in the evening. Patient is awake in his room, listen to music, his morning tray was taken away and clean the area. He is very pleasant to talk to today, reports he feels good, denies side effects from medications, denies any safety concerns. Denies feeling sedation, denies anxiety/depression. He is receptive with the plan of medication over the weekends and next week, happy to hear about the medication plan. He also agree with the MONTERO Invega Sustenna on Monday. Encourage him to go out and attended to groups, he said that he will. Reported that he was out for groups a couple of times last week. Discontinue Haldol p.r.n.. Discontinue scheduled Zyprexa 5 mg at bedtime. Only on 10 Zyprexa at g IM daily p.r.n. as backup orders if refused Invega. Invega 12 mg at bedtime. Plan to monitor over the weekends and will give long- acting injection on Monday if tolerate with the p.o. well Reduce Seroquel 200 mg p.r.n. at bedtime to 100 p.r.n. at bedtime for insomnia. Seroquel 50 mg b.i.d. p.r.n. for agitation. Discontinue Motrin. Patient on lithium. Labs were for MondayJune 20: CMP, TSH with free T4. 06/20/25: In bed most of the day, was compliant with medication, however refused labs work. Re- scheduled for Monday. Continue with Invega 12 mg at bedtime. We will reassess and offer long-acting injection on Monday. Continue to encourage patient to get up and go to some groups. No safety concerns expressed. Minimal peer and staff interaction. 06/21: no change in presentation. start MONTERO monday. no s/e from invega. otherwise continue current mgmt. 06/22: stable. continue current mgmt. 06/23/25: More awake and alert. Review with patient regarding policy for his phone use BID 30min each time, patient is educated on compliant with policy. He asks for more 5-10 min extra headphone use at night on the weekends after 2300. Once again, redirected for unit rules. He agrees with MONTERO which is scheduled today. Discontinue Invega PO Invega Sustenna 234mg IM once. Will monitor for possible side effects and sedation. Will offer 156mg after 1 week. If mentaly stable with 156mg, will maintain at this dose, if not will offer 234mg Monthly. 06/24/25: Slept for 5 hours last night, but also went to bed around 7 tonight p.m. last night per his report. He also attended to groups in the afternoon yesterday. Compliant with medications. No side effects from Invega Sustenna. He is engaged in full conversation today why he is in bed, denies safety concerns. Observe he is on the unit, social with peers and staff in longer period of time. Appeared to be happy. He plans to take shower today. Reported that he was up early but he does not feel hungry in the morning. He is making progress, not too sedated during daytime since switching his medication. Appears to do well so far with Invega Sustenna. 06/25/25: Patient slept for 4 hours last night, however he reported was napping in the afternoon for couple hours which affect his sleeping pattern at night. Educate patient to not napping late in the evening. He is receptive. Compliant with medications, no side effects. He reports his did not shower yesterday but he will today. He is awake in his room not sleeping, engage in full conversation, no delusional or paranoid statements make. He is visible at times. Continued to improve in mood, engaging in other activities on the unit. Denies other safety concerns. Denies hallucinations. No irritability mood, not sedated during day time compared to when he was taking olanzapine. We will schedule Invega Sustenna 156 next Monday. Work with social sciences research scientist to see where he will return to. He probably needs VNA to manage medication. 06/26/25: He slept for 5 hours, compliant with medications. Denies side effects. He self-reported that he went to bed last night and was able to fall asleep by 01:00 and able to stay asleep whole night. Denies safety concerns. I spoke with him in length today regarding aftercare. He thinks he will go to the hospital in [place] to ask them regarding his heart condition. He thinks people was lying to get him to the hospital as he does not have mental health illnesses. He believes that he has been exactly the same he was seen he was a little, and at he able to remember everything in the past. He also reports that he used to use [employer] in [place]. At he does not want [facility] application. I explained to him that in order to be a candidate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
[2025-08-08 20:00] VITALS: BP 140/81; PULSE 91; RESP 16; TEMP 36.9; O2SAT 100
--- NOTE | 2025-08-09 07:30 | HO.PSYCHPN ---
Subjective Subjective Date of Service: 08/09/25 Reason For Visit: psychotic disorder Subjective Notes: Section 8 Interim History: met with patient. Discussed with Nursing. Doing well. Discharging this week with family support in context of giving up [facility] respite bed. Overall denies depression. Denies paranoia or psychosis. Denies med concerns or side effects. Looking forward to discharge planning Medication Compliance: Yes Side effects from medications: No Attending Groups: No Review of Systems Acute medical concerns: No Review of Systems Review of Systems nothing of note Mental Status Exam Mental Status Exam Narrative: Appearance: Grooming/hygiene wnl. Hair covered w/ a cap. Good eye contact with exophthalmos evident Attitude:cooperative Speech: Paucity of spontaneous speech, fluent Motor activity: Calm and without any tics, tremors or dyskinesias Mood: okay Affect: appropriate, bright when he was up and walking Thought process: goal directed Thought content: as noted above Perception: Denies AH/VH and does not appear to respond to internal stimuli Insight: fair Judgment: fair Diagnostics Vital Signs (24Hr): Vital Signs - 24 hr 08/08/25 20:00 Temperature 98.5 F Pulse Rate 91 Respiratory Rate 16 Blood Pressure 140/81 H Pulse Oximetry 100 Oxygen Delivery Method Room Air BMI result Body Mass Index 23.2 Labs 06/25/25 08:02 06/20/25 20:35 Medications Medications Current Medications Acetaminophen (Acetaminophen 325 Mg Tablet) 650 mg PO Q4H PRN PRN Reason: Pain, Mild (Pain Scale 1-3) Last Admin: 07/06/25 22:53 Dose: 650 mg Al Hydroxide/Mg Hydroxide (Magnesium Hydrox/Alum Hydrox 30 Ml Oral.Susp) 30 ml PO Q6H PRN PRN Reason: Heart burn Benzocaine (Benzocaine 20 % Oral Gel 14 Gm Tube) 1 appl MUCOUS MEM QID PRN; Protocol PRN Reason: Mouth Sore Pain Last Admin: 04/26/25 18:33 Dose: 1 appl Diazepam (Diazepam 10 Mg/2 Ml Cartridge) 10 mg IM BID PRN PRN Reason: refusal of lithium, mary floyd Last Admin: 04/11/25 09:56 Dose: 10 mg Glycopyrrolate (Glycopyrrolate 1 Mg Tablet) 1 mg PO BID [facility] Last Admin: 08/08/25 22:58 Dose: 1 mg Hydrocortisone (Hydrocortisone 1 % Cream 28.35 Gm Tube) 1 appl TOPICAL DAILY PRN; Protocol PRN Reason: rash Last Admin: 07/31/25 17:37 Dose: 1 appl Edna Carbonate (Edna Carbonate Er 300 Mg Tablet.Er) 600 mg PO DAILY [facility] Last Admin: 08/08/25 08:54 Dose: 600 mg Edna Carbonate (Edna Carbonate Er 450 Mg Tablet.Er) 900 mg PO DAILY@2300 KRISTAL Last Admin: 08/08/25 22:58 Dose: 900 mg Magnesium Hydroxide (Milk Of Magnesia 30 Ml Oral.Susp) 30 ml PO DAILY PRN PRN Reason: Constipation Methimazole (Methimazole 10 Mg Tablet) 10 mg PO DAILY [facility] Last Admin: 08/08/25 08:54 Dose: 10 mg Nicotine (Nicotine 21 Mg Patch.Td24) 21 mg TRANSDERMA DAILY PRN PRN Reason: nicotine cravings Last Admin: 04/12/25 17:06 Dose: 21 mg Nicotine Polacrilex (Nicotine Polacrilex Lozenge 2 Mg Lozenge) 2 mg BUCCAL Q1H PRN PRN Reason: Nicotine Cravings Last Admin: 04/30/25 08:49 Dose: 2 mg Patient Own Medication Excedrin 250/250/65mg 2 each PO Q8H PRN PRN Reason: Migraine Headache Last Admin: 08/04/25 07:28 Dose: 2 each Olanzapine (Olanzapine 10 Mg Vial) 10 mg IM DAILY PRN PRN Reason: if refuse Invega PO Paliperidone Palmitate (Paliperidone Palmitate 234 Mg/1.5 Ml Syringe) 234 mg IM Q30D [facility] Last Admin: 07/28/25 16:55 Dose: 234 mg Pseudoephedrine HCl (Pseudoephedrine Hcl 30 Mg Tablet) 30 mg PO Q6H PRN PRN Reason: Congestion Last Admin: 07/03/25 21:18 Dose: 30 mg Quetiapine Fumarate (Quetiapine Fumarate 100 Mg Tablet) 100 mg PO BEDTIME PRN PRN Reason: insomnia Last Admin: 08/08/25 22:58 Dose: 100 mg Quetiapine Fumarate (Quetiapine Fumarate 50 Mg Tablet) 50 mg PO BID PRN PRN Reason: agitation Last Admin: 08/03/25 00:36 Dose: 50 mg Sodium Chloride (Sodium Chloride 0.65 % Nasal 44 Ml Sprbtl) 1 spray NOSTRIL-B Q4H PRN PRN Reason: Congestion Last Admin: 07/03/25 23:03 Dose: 1 spray Allergies Allergies Allergy/AdvReac Type Severity Reaction Status Date / Time No Known Allergies Allergy Verified 03/26/25 14:24 Assessment & Plan Assessment & Plan (1) Graves disease: Status: Acute Code(s): E05.00 - Thyrotoxicosis with diffuse goiter without thyrotoxic crisis or storm Assessment and Plan: Hyperthyroidism/Graves disease. He will need follow up with endocrinology as an outpatient He will also need a primary care doctor referral as an outpatient Per previous notes- plan was discussed with Dr. Bejarano, patient will need free T4 weekly Methimazole was decreased to 15 mgs daily for three days and then 10 mgs daily (currently on 10 mg qd) TSH and free T4 every 4 weeks. No need to draw thyroid stimulation immunology or TSH receptor AB (2) Dental abscess: Status: Acute Code(s): K04.7 - Periapical abscess without sinus Assessment and Plan: Carious tooth/dental infection Recently treated with PEN VK 500 mg q.6 hours for 7 days Patient will need follow up with dentist on discharge for tooth extraction Motrin helping pain. (3) Becca: Status: Acute Code(s): F30.9 - Manic episode, unspecified Plan 03/26: offer lithium and seroquel for becca. continue methimazole and beta joanne for hyperthyroidism as started at [facility]. trend TFTs. 12b. 03/27: taking methimazole and beta joanne. refused HS meds last night, took morning meds today. continue to encourage medication compliance. 03/28: intermittently taking meds. wants all meds in morning. pressured, manic, paranoid delusions. encouraged to take lithium but states he will not. all meds ordered for morning. 03/29: Keeping to self. no groups. observed laying in bed listening to music on unit headphones. pleasant. Pt reports feeling good today and sleeping well. declined lithium and zyprexa. denies SI/HI/VH/AH. continue current tx plan. 03/30:Irritable. upset he was unable to use his personal hygiene products. Per nursing, pt threatened staff and squeezed tooth paste throughout unit hallway to show his frustration. Pt was able to calm down after speaking with security. declined medications. 03/31: Keeping to self. laying in bed listening to music. refused medications. calm today. Patient reports feeling great ; pt stated, nothing is wrong with me. I'm waiting so I can leave tomorrow. I'm hoping for the best . denies SI/HI/VH/AH. per nursing, slept 6 hours. Continue current tx plan. 04/01: variably calm on the unit versus highly agitated. paranoid delusions, irritability, lability continue. seems to believe MD has met him prior to the present hospitalization and is stalking him. believes brother behind conspiracy to have him psychiatrically hospitalized. has been refusing all medications, including for hyperthyroidism. informed he would be filed on. filed. continue to offer medications. 04/02: continues agitated, belittling, verbally aggressive, refusing all medications including for hyperthyroidism. continue to offer medication. 04/03: paranoid there is a conspiracy to hospitalize him. threatening to stick a stick in staff once he is released by technical information specialist. insists his hyperthyroidism was cured at [facility]. asserts there is NOTHING wrong with him. continue to offer medication. 04/04: irritable, rejecting. verbally abuses MD and sends him away: see you on monday [in court]. continue to offer medication for thyroid condition and mental illness. 04/05 continue tx. suspicious and guarded, accusatory, verbal threats to hurt staff and peers 04/06 intrusive, posturing towards staff and peer who he thinks is not real and is an impostor, continues to make verbal threats to harm him but thinks that because he is not real he may not experience any pain. 04/07: threatening statements and behaviors of yesterday noted. pt sleeping this morning, dismissive of MD. 04/08: asleep days. committed and meds ordered by court. 04/09: on being informed of court order and MD insisting on meds, pt escalated to hurling food item in container against wall at high speed and saying he wished he could do the same to MD's head. pt eventually took court ordered meds PO. sensodyne and excedrin not available in pharmacy (pt requesting them). 04/10: continue tx. Pt accepting medication today. 04/11: Keeping to self. Lying in bed most of morning. Declined to meet with T/W. Pt stated, I'm fine. I don't need anything . Listening to headphones in room. Declined court ordered PO medications; received IM medications. Refused vital signs.continue tx plan. 04/12: got IMs yesterday, took PO this morning. sleepy, no concerns or complaints. 04/13: taking PO meds again. slept 7 hours. sleepy again mid morning refusing interview. continue current mgmt. 04/14: sleeping, rousable. denies being sedated or tired, says he's just bored. no questions or complaints. informed of need to check labs. check lithium level and thyroid labs tonight. 04/15: refusing labs. delusional re his brother harming him. verbally abusive toward MD. spat in floor. happy with improvement in proptosis. 04/16: Lying in bed. Calm. cooperative. guarded. Pt reports feeling tired this morning d/t poor sleep last night. Pt stated, I don't need anything. I didn't sleep well so I'm trying to catch up . denies any issues at this time. denies SI/HI/VH/AH. Continue current tx plan. 04/17: more calm today, less explosive. continue current mgmt. 04/18: continues more calm. tolerating moments of frustration without verbally attacking MD. slept only 2 hours overnight, however. continue current mgmt. 04/19 continues to push boundaries and limits with staff mike around cell phone- 04/20 - aggressive with staff and unpredictable- threw water pitcher at staff behind desk/-when seen by provider passive in bed-denying all compaints/sys- no insight 04/21: appears as per last week. more difficult behaviors around cell phone use, did throw pitcher of water at RN monday over phone use and was restrained. continue current mgmt. 04/22: continues to have conflict around cell phone use. consolidate zyprexa at HS to decrease daytime sedation. 1:1 allegra shift until peer he is accusing of not being a real patient and appears to be targeting discharges tomorrow. 04/23: lithium 0.6 on 600 BID. sleeping better, remains delusional (telling SW who is marginally younger than him that she could be his daughter). just changed zyprexa dosing as of last night. continue current regimen and observe for continued stabilization. T/C slight increase in lithium dosing. 04/24: Laying in bed. guarded. calm. did not want to get out of bed to meet with T/W. Pt reports feeling great today but declined to go into detail. listening to music on unit headphones. Pt stated, I'm fine. I don't need anything . denies any issues at this time. denies SI/HI/VH/AH. Continue current tx plan. 04/25: Laying in bed. keeping to self. calm. paranoid. Discussed incident that occurred with staff last evening. Pt stated, the counselor made up a lie yesterday. I said she looks like my ex-girlfriend. I know they are related. They want to make up a lie to irritate me. They are trying to talk to me so they can use recording devices and make me look some kind of way . listening to music on unit headphones. denies SI/HI/VH/AH. Continue current tx plan. 04/26: Continue current regimen and plans. Increase Zyprexa 20 mg q.h.s. fresh air break withheld 04/27: Continue current regimen and plans 04/28: somewhat less irritable and agitated than last week. however, over the weekend was claiming he was the father of a footballer on TV and also that a staff member is a twin of his ex-GF (and he pushed staff member). TFTs improving. continue current mgmt. 04/29: no change in presentation. continue current mgmt. 04/30: no irritable edge today. calm, pleasant. engaging in small talk. reality testing not pressed. continue current mgmt for now. 05/01: no change in presentation. continue current mgmt. 05/02: BPs coming down, DC beta joanne as pt has been refusing anyway. remains not antagonistic toward MD. using phone appropriately. continue current mgmt otherwise. 05/03 continue 05/04: remains delusional, irritable/labile when delusional system confronted. declines to sign TOMMY for [facility]. continue current mgmt. 05/06: declining to meet with MD, but does meet with medical student. remains upset about yesterday's confrontation re his delusional system. 05/07: Active on unit. keeping to self. pacing unit hallway while listening to unit headphones. medication compliant. patient reports feeling good ; pt stated, I'm just waiting to leave here. I want to return to my life and do things like go grocery shopping . denies SI/HI/VH/AH. Continue current tx plan. 05/08: stable presentation, delusions not being brought to the surface daily. remains affectively improved from admission. continue current mgmt. 05/09: calm, pleasant. no questions or complaints. continue current mgmt. 05/10: no change in presentation. due to lack of improvement in dental infection Sx, DC PCN and start augmentin. 05/11: no change in presentation. continue current mgmt. 05/12: as for yesterday. dental pain improving a bit. 05/13: expressed to medical student that his brother poisoned him, causing his thyroid disease. no change in presentation. continue current mgmt. 05/14: Pacing unit hallway. keeping to self. patient reports feeling good today; denies any issues at this time. denies SI/HI/VH/AH. per nursing, slept 5 hours. Continue current tx plan. 05/15: slept 6 hours. otherwise isolative, difficult to engage. continue current mgmt. 05/16: slept 7 hours. as for yesterday otherwise. 05/17/25: Slept well, no issue with appetite, skinny and pretty tall. Compliant with medication. No side effects Calm and pleasant upon approach. Some what paranoid. Tangential, however denies other safety concerns. Questions if he is discharging soon. He is on antibiotic for 7 days for mouth pain/tooth pain. We will finish the 7 course up in antibiotic after tonight dose. Then discontinue. 05/18/25: Slept for 5 hours plus hours this morning. In bed most of the shift, no behavior issues. Denies other safety concerns. 05/19: in bed days, up eves. no change in presentation. continue current mgmt. 05/20: no change in presentation. check labs. 05/21: lithium low, TFTs mixed and not all back. increase lithium from 600 BID to 600/900. trend BUN/Cr, with slight elevation. otherwise continue current mgmt. 05/22: no change in presentation. continue current mgmt. 05/23: does not deny someone stole his sperm and impregnated his landlord's child with it. irritable. c/o dental pain, antibx restarted. otherwise continue current mgmt. 05/14: no change in mgt 05/25: more isolative today; no change in mgt 05/26: decreases in methimazole noted. continue psych regimen as is. pt refused to interact with MD today. 05/27: i'm sleeping. no change in presentation. labs tonight. 05/28: no change in behavior. lithium 0.66, BUN stable. continue current mgmt. 05/29: irritable. continue current mgmt. 05/30: no longer in single room. still not engaging, sleeping days. continue current mgmt. 05/31:laying in bed. declined to meet with T/W. pt stated, I want to sleep. I didn't sleep enough . Pt encouraged to reach out to staff if he needs anything. Continue current tx plan. 06/01: Similar to yesterday. laying in bed. Irritable. declined to meet with T/W and pulled bed sheets over head. pt stated, I don't want to talk. I want to sleep . difficult to engage. Continue current tx plan. 06/02: Similar to yesterday. laying in bed. Irritable. declined to meet with T/W. Observed getting drink from kitchen; T/W approached pt and asked if they could speak. patient declined to acknowledge T/W and walked past. Continue current tx plan. 06/03: no change in behavior. continue tx plan. 06/04/25: Passive engaged in the assessment, in bed mostly sleeping this morning which could be interfere with his nighttime. Cover body under the blanket Slept for 4-5 hours last night. Was medication compliant, attended no groups, isolative to self in room. No SI/SIB/HI/AVH expressed. 06/05: continue tx plan. 06/06: reports feeling fine ; continues guarded. difficult to engage. declining to meet with T/W. continue tx plan. 06/07/25: Slept for 4 hours at night, but has been sleeping most of the day yesterday as well. Spent majority of the shift in bed, was medication compliant. Passive engaged in the conversation. He said he will try to change the sleeping pattern so that he can be awake more during the daytime. Appear to be sedated in the morning. No safety behavior. 06/08/25: Slept for 3-4 hours last night, compliant with medications. Denies side effects, denies other safety concerns. Continued to encourage patient to up and down more than on the unit he spent most of the day sleeping. He is pleasant upon approach. No other behavior issues. Denied voices/hallucinations. Suicide thoughts or homicidal thoughts. 06/09: sleeping, minimally rousable. denies problems. continue current mgmt. 06/10: sleeping all day, up most of the night. minimally rousable. denies problems. continue current mgmt. per JAMAICA Arrington: Jean said when he leaves he can return to [facility]. he was living with a lady there and can go back. He plans to get a job to pay off his debt. He said he owes money because they sent him back here due to losing his passport and he owes them money for the temporary emergency passport and the flight back to the . so his main focus is to get a job. he said he will try things here first and if it doesn't work out he plans to return to [place]. 06/11/25: Passively engaged in conversation while in bed sleeping/resting. Able to answer question appropriately, but seems to be minimized. Denies SI/SIB/HI/AVH. He slept 5 hours last night, spent most of the day in bed sleeping. Attempted to no groups, observed out to the afternoon in the subramanian near the nurse station. No change in presentation. Encourage groups,up and engaged in groups. 06/12: not engaging. no complaints or questions re med changes. cross-taper zyprexa in favor of invega, give MONTERO invega. tonight, decrease zyprexa to 15 mg and start invega 3 mg. otherwise continue current mgmt. 06/13: continues avoidant and disengaged. denies side effects from med change last night. informed cross-titration will advance tonight. decrease zyprexa to 10 mg tonight, increase paliperidone to 6 mg. plan to continue by 5 mg zyprexa and 3 mg paliperidone increments every several days as tolerated until zyprexa DCed and paliperidone at 12 mg QHS. once it is established pt is tolerating PO Paliperidone, invega sustenna to be administered. 06/14: Continue current regimen and plans 06/15: Continue current plans and regimen 06/16: irritable re neuroleptic change. denies side effects or problems with it, however. minimally engageable. increase invega to 9 QHS and decrfease zyprexa to 5 QHS. 06/17/25: Continued to be irritable regarding medication change/titration. However engaged in conversation, hyper verbal, paranoid, reports medication slow his thoughts down and he does not not like it. Poor insight and poor judgment. He thinks he only need lithium, not other medications. Remind patient to continue doing the sleep pattern changing. However his in bed mostly this morning. Slept for 4-5 hours last night. 06/18/25: Slept for 5 hours last night as he continues sleeping during daytime. Compliant with meds, did not c/o side effects.Passingly engaging in assessment. Denies safety concerns. Tolerate the tritation well. Will increase Inveag up to max of 12 tomorrow and Discontinue Olanzepine at HS. Continue to encourage up and out on day so he can sleep better at HS. 06/19/25: Patient slept for 5.5 hours last night, was medication compliant, mostly in his room yesterday but seen more often in the evening. Patient is awake in his room, listen to music, his morning tray was taken away and clean the area. He is very pleasant to talk to today, reports he feels good, denies side effects from medications, denies any safety concerns. Denies feeling sedation, denies anxiety/depression. He is receptive with the plan of medication over the weekends and next week, happy to hear about the medication plan. He also agree with the MONTERO Invega Sustenna on Monday. Encourage him to go out and attended to groups, he said that he will. Reported that he was out for groups a couple of times last week. Discontinue Haldol p.r.n.. Discontinue scheduled Zyprexa 5 mg at bedtime. Only on 10 Zyprexa at g IM daily p.r.n. as backup orders if refused Invega. Invega 12 mg at bedtime. Plan to monitor over the weekends and will give long-acting injection on Monday if tolerate with the p.o. well Reduce Seroquel 200 mg p.r.n. at bedtime to 100 p.r.n. at bedtime for insomnia. Seroquel 50 mg b.i.d. p.r.n. for agitation. Discontinue Motrin. Patient on lithium. Labs were for MondayJune 20: CMP, TSH with free T4. 06/20/25: In bed most of the day, was compliant with medication, however refused labs work. Re- scheduled for Monday. Continue with Invega 12 mg at bedtime. We will reassess and offer long-acting injection on Monday. Continue to encourage patient to get up and go to some groups. No safety concerns expressed. Minimal peer and staff interaction. 06/21: no change in presentation. start MONTERO monday. no s/e from invega. otherwise continue current mgmt. 06/22: stable. continue current mgmt. 06/23/25: More awake and alert. Review with patient regarding policy for his phone use BID 30min each time, patient is educated on compliant with policy. He asks for more 5-10 min extra headphone use at night on the weekends after 2300. Once again, redirected for unit rules. He agrees with MONTERO which is scheduled today. Discontinue Invega PO Invega Sustenna 234mg IM once. Will monitor for possible side effects and sedation. Will offer 156mg after 1 week. If mentaly stable with 156mg, will maintain at this dose, if not will offer 234mg Monthly. 06/24/25: Slept for 5 hours last night, but also went to bed around 7 tonight p.m. last night per his report. He also attended to groups in the afternoon yesterday. Compliant with medications. No side effects from Invega Sustenna. He is engaged in full conversation today why he is in bed, denies safety concerns. Observe he is on the unit, social with peers and staff in longer period of time. Appeared to be happy. He plans to take shower today. Reported that he was up early but he does not feel hungry in the morning. He is making progress, not too sedated during daytime since switching his medication. Appears to do well so far with Invega Sustenna. 06/25/25: Patient slept for 4 hours last night, however he reported was napping in the afternoon for couple hours which affect his sleeping pattern at night. Educate patient to not napping late in the evening. He is receptive. Compliant with medications, no side effects. He reports his did not shower yesterday but he will today. He is awake in his room not sleeping, engage in full conversation, no delusional or paranoid statements make. He is visible at times. Continued to improve in mood, engaging in other activities on the unit. Denies other safety concerns. Denies hallucinations. No irritability mood, not sedated during day time compared to when he was taking olanzapine. We will schedule Invega Sustenna 156 next Monday. Work with certified social workers in health care to see where he will return to. He probably needs [facility] to manage medication. 06/26/25: He slept for 5 hours, compliant with medications. Denies side effects. He self-reported that he went to bed last night and was able to fall asleep by 01:00 and able to stay asleep whole night. Denies safety concerns. I spoke with him in length today regarding aftercare. He thinks he will go to the hospital in [place] to ask them regarding his heart condition. He thinks people was lying to get him to the hospital as he does not have mental health illnesses. He believes that he has been exactly the same he was seen he was a little, and at he able to remember everything in the past. He also reports that he used to use [employer] in [place]. At he does not want [facility] application. I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
[2025-08-09 20:00] VITALS: BP 151/90; PULSE 100; RESP 17; TEMP 36.8; O2SAT 99
--- NOTE | 2025-08-10 11:02 | HO.PSYCHPN ---
Subjective Subjective Date of Service: 08/10/25 Reason For Visit: psychotic disorder Interim History: Overall no significant changes from yesterday. Continues to report doing well. No depression. Denies paranoia or psychosis. Denies med concerns or side effects. Looking forward to discharge planning Medication Compliance: Yes Side effects from medications: No Attending Groups: No Review of Systems Acute medical concerns: No Review of Systems Review of Systems nothing of note Mental Status Exam Mental Status Exam Narrative: Appearance: Grooming/hygiene wnl. Hair covered w/ a cap. Good eye contact with exophthalmos evident Attitude:cooperative Speech: Paucity of spontaneous speech, fluent Motor activity: Calm and without any tics, tremors or dyskinesias Mood: good Affect: appropriate, bright when he was up and walking Thought process: goal directed Thought content: as noted above Perception: Denies AH/VH and does not appear to respond to internal stimuli Insight: fair Judgment: fair Diagnostics Vital Signs (24Hr): Vital Signs - 24 hr 08/09/25 20:00 Temperature 98.2 F Pulse Rate 100 Respiratory Rate 17 Blood Pressure 151/90 H Pulse Oximetry 99 Oxygen Delivery Method Room Air BMI result Body Mass Index 23.2 Labs 06/25/25 08:02 06/20/25 20:35 Medications Medications Current Medications Acetaminophen (Acetaminophen 325 Mg Tablet) 650 mg PO Q4H PRN PRN Reason: Pain, Mild (Pain Scale 1-3) Last Admin: 07/06/25 22:53 Dose: 650 mg Al Hydroxide/Mg Hydroxide (Magnesium Hydrox/Alum Hydrox 30 Ml Oral.Susp) 30 ml PO Q6H PRN PRN Reason: Heart burn Benzocaine (Benzocaine 20 % Oral Gel 14 Gm Tube) 1 appl MUCOUS MEM QID PRN; Protocol PRN Reason: Mouth Sore Pain Last Admin: 04/26/25 18:33 Dose: 1 appl Diazepam (Diazepam 10 Mg/2 Ml Cartridge) 10 mg IM BID PRN PRN Reason: refusal of lithium, mary floyd Last Admin: 04/11/25 09:56 Dose: 10 mg Glycopyrrolate (Glycopyrrolate 1 Mg Tablet) 1 mg PO BID [facility] Last Admin: 08/10/25 08:39 Dose: 1 mg Hydrocortisone (Hydrocortisone 1 % Cream 28.35 Gm Tube) 1 appl TOPICAL DAILY PRN; Protocol PRN Reason: rash Last Admin: 07/31/25 17:37 Dose: 1 appl [place] Carbonate ([place] Carbonate Er 300 Mg Tablet.Er) 600 mg PO DAILY [facility] Last Admin: 08/10/25 08:39 Dose: 600 mg [place] Carbonate ([place] Carbonate Er 450 Mg Tablet.Er) 900 mg PO DAILY@2300 [facility] Last Admin: 08/09/25 22:42 Dose: 900 mg Magnesium Hydroxide (Milk Of Magnesia 30 Ml Oral.Susp) 30 ml PO DAILY PRN PRN Reason: Constipation Methimazole (Methimazole 10 Mg Tablet) 10 mg PO DAILY [facility] Last Admin: 08/10/25 08:39 Dose: 10 mg Nicotine (Nicotine 21 Mg Patch.Td24) 21 mg TRANSDERMA DAILY PRN PRN Reason: nicotine cravings Last Admin: 04/12/25 17:06 Dose: 21 mg Nicotine Polacrilex (Nicotine Polacrilex Lozenge 2 Mg Lozenge) 2 mg BUCCAL Q1H PRN PRN Reason: Nicotine Cravings Last Admin: 04/30/25 08:49 Dose: 2 mg Patient Own Medication Excedrin 250/250/65mg 2 each PO Q8H PRN PRN Reason: Migraine Headache Last Admin: 08/04/25 07:28 Dose: 2 each Olanzapine (Olanzapine 10 Mg Vial) 10 mg IM DAILY PRN PRN Reason: if refuse Invega PO Paliperidone Palmitate (Paliperidone Palmitate 234 Mg/1.5 Ml Syringe) 234 mg IM Q30D [facility] Last Admin: 07/28/25 16:55 Dose: 234 mg Pseudoephedrine HCl (Pseudoephedrine Hcl 30 Mg Tablet) 30 mg PO Q6H PRN PRN Reason: Congestion Last Admin: 07/03/25 21:18 Dose: 30 mg Quetiapine Fumarate (Quetiapine Fumarate 100 Mg Tablet) 100 mg PO BEDTIME PRN PRN Reason: insomnia Last Admin: 08/09/25 22:43 Dose: 100 mg Quetiapine Fumarate (Quetiapine Fumarate 50 Mg Tablet) 50 mg PO BID PRN PRN Reason: agitation Last Admin: 08/03/25 00:36 Dose: 50 mg Sodium Chloride (Sodium Chloride 0.65 % Nasal 44 Ml Sprbtl) 1 spray NOSTRIL-B Q4H PRN PRN Reason: Congestion Last Admin: 07/03/25 23:03 Dose: 1 spray Allergies Allergies Allergy/AdvReac Type Severity Reaction Status Date / Time No Known Allergies Allergy Verified 03/26/25 14:24 Assessment & Plan Assessment & Plan (1) Graves disease: Status: Acute Code(s): E05.00 - Thyrotoxicosis with diffuse goiter without thyrotoxic crisis or storm Assessment and Plan: Hyperthyroidism/Graves disease. He will need follow up with endocrinology as an outpatient He will also need a primary care doctor referral as an outpatient Per previous notes- plan was discussed with Dr. Bejarano, patient will need free T4 weekly Methimazole was decreased to 15 mgs daily for three days and then 10 mgs daily (currently on 10 mg qd) TSH and free T4 every 4 weeks. No need to draw thyroid stimulation immunology or TSH receptor AB (2) Dental abscess: Status: Acute Code(s): K04.7 - Periapical abscess without sinus Assessment and Plan: Carious tooth/dental infection Recently treated with PEN VK 500 mg q.6 hours for 7 days Patient will need follow up with dentist on discharge for tooth extraction Motrin helping pain. (3) Becca: Status: Acute Code(s): F30.9 - Manic episode, unspecified Plan 03/26: offer lithium and seroquel for becca. continue methimazole and beta joanne for hyperthyroidism as started at [facility] [place] [place]. trend TFTs. 12b. 03/27: taking methimazole and beta joanne. refused HS meds last night, took morning meds today. continue to encourage medication compliance. 03/28: intermittently taking meds. wants all meds in morning. pressured, manic, paranoid delusions. encouraged to take lithium but states he will not. all meds ordered for morning. 03/29: Keeping to self. no groups. observed laying in bed listening to music on unit headphones. pleasant. Pt reports feeling good today and sleeping well. declined lithium and zyprexa. denies SI/HI/VH/AH. continue current tx plan. 03/30:Irritable. upset he was unable to use his personal hygiene products. Per nursing, pt threatened staff and squeezed tooth paste throughout unit hallway to show his frustration. Pt was able to calm down after speaking with security. declined medications. 03/31: Keeping to self. laying in bed listening to music. refused medications. calm today. Patient reports feeling great ; pt stated, nothing is wrong with me. I'm waiting so I can leave tomorrow. I'm hoping for the best . denies SI/HI/VH/AH. per nursing, slept 6 hours. Continue current tx plan. 04/01: variably calm on the unit versus highly agitated. paranoid delusions, irritability, lability continue. seems to believe MD has met him prior to the present hospitalization and is stalking him. believes brother behind conspiracy to have him psychiatrically hospitalized. has been refusing all medications, including for hyperthyroidism. informed he would be filed on. filed. continue to offer medications. 04/02: continues agitated, belittling, verbally aggressive, refusing all medications including for hyperthyroidism. continue to offer medication. 04/03: paranoid there is a conspiracy to hospitalize him. threatening to stick a stick in staff once he is released by artificial teeth inspector. insists his hyperthyroidism was cured at [facility]. asserts there is NOTHING wrong with him. continue to offer medication. 04/04: irritable, rejecting. verbally abuses MD and sends him away: see you on monday [in court]. continue to offer medication for thyroid condition and mental illness. 04/05 continue tx. suspicious and guarded, accusatory, verbal threats to hurt staff and peers 04/06 intrusive, posturing towards staff and peer who he thinks is not real and is an impostor, continues to make verbal threats to harm him but thinks that because he is not real he may not experience any pain. 04/07: threatening statements and behaviors of yesterday noted. pt sleeping this morning, dismissive of MD. 04/08: asleep days. committed and meds ordered by court. 04/09: on being informed of court order and MD insisting on meds, pt escalated to hurling food item in container against wall at high speed and saying he wished he could do the same to MD's head. pt eventually took court ordered meds PO. sensodyne and excedrin not available in pharmacy (pt requesting them). 04/10: continue tx. Pt accepting medication today. 04/11: Keeping to self. Lying in bed most of morning. Declined to meet with T/W. Pt stated, I'm fine. I don't need anything . Listening to headphones in room. Declined court ordered PO medications; received IM medications. Refused vital signs.continue tx plan. 04/12: got IMs yesterday, took PO this morning. sleepy, no concerns or complaints. 04/13: taking PO meds again. slept 7 hours. sleepy again mid morning refusing interview. continue current mgmt. 04/14: sleeping, rousable. denies being sedated or tired, says he's just bored. no questions or complaints. informed of need to check labs. check lithium level and thyroid labs tonight. 04/15: refusing labs. delusional re his brother harming him. verbally abusive toward MD. spat in floor. happy with improvement in proptosis. 04/16: Lying in bed. Calm. cooperative. guarded. Pt reports feeling tired this morning d/t poor sleep last night. Pt stated, I don't need anything. I didn't sleep well so I'm trying to catch up . denies any issues at this time. denies SI/HI/VH/AH. Continue current tx plan. 04/17: more calm today, less explosive. continue current mgmt. 04/18: continues more calm. tolerating moments of frustration without verbally attacking MD. slept only 2 hours overnight, however. continue current mgmt. 04/19 continues to push boundaries and limits with staff mike around cell phone- 04/20 - aggressive with staff and unpredictable- threw water pitcher at staff behind desk/-when seen by provider passive in bed-denying all compaints/sys- no insight 04/21: appears as per last week. more difficult behaviors around cell phone use, did throw pitcher of water at RN monday over phone use and was restrained. continue current mgmt. 04/22: continues to have conflict around cell phone use. consolidate zyprexa at HS to decrease daytime sedation. 1:1 allegra shift until peer he is accusing of not being a real patient and appears to be targeting discharges tomorrow. 04/23: lithium 0.6 on 600 BID. sleeping better, remains delusional (telling SW who is marginally younger than him that she could be his daughter). just changed zyprexa dosing as of last night. continue current regimen and observe for continued stabilization. T/C slight increase in lithium dosing. 04/24: Laying in bed. guarded. calm. did not want to get out of bed to meet with T/W. Pt reports feeling great today but declined to go into detail. listening to music on unit headphones. Pt stated, I'm fine. I don't need anything . denies any issues at this time. denies SI/HI/VH/AH. Continue current tx plan. 04/25: Laying in bed. keeping to self. calm. paranoid. Discussed incident that occurred with staff last evening. Pt stated, the counselor made up a lie yesterday. I said she looks like my ex-girlfriend. I know they are related. They want to make up a lie to irritate me. They are trying to talk to me so they can use recording devices and make me look some kind of way . listening to music on unit headphones. denies SI/HI/VH/AH. Continue current tx plan. 04/26: Continue current regimen and plans. Increase Zyprexa 20 mg q.h.s. fresh air break withheld 04/27: Continue current regimen and plans 04/28: somewhat less irritable and agitated than last week. however, over the weekend was claiming he was the father of a footballer on TV and also that a staff member is a twin of his ex-GF (and he pushed staff member). TFTs improving. continue current mgmt. 04/29: no change in presentation. continue current mgmt. 04/30: no irritable edge today. calm, pleasant. engaging in small talk. reality testing not pressed. continue current mgmt for now. 05/01: no change in presentation. continue current mgmt. 05/02: BPs coming down, DC beta joanne as pt has been refusing anyway. remains not antagonistic toward MD. using phone appropriately. continue current mgmt otherwise. 05/03 continue 05/04: remains delusional, irritable/labile when delusional system confronted. declines to sign TOMMY for [facility] records. continue current mgmt. 05/06: declining to meet with MD, but does meet with medical student. remains upset about yesterday's confrontation re his delusional system. 05/07: Active on unit. keeping to self. pacing unit hallway while listening to unit headphones. medication compliant. patient reports feeling good ; pt stated, I'm just waiting to leave here. I want to return to my life and do things like go grocery shopping . denies SI/HI/VH/AH. Continue current tx plan. 05/08: stable presentation, delusions not being brought to the surface daily. remains affectively improved from admission. continue current mgmt. 05/09: calm, pleasant. no questions or complaints. continue current mgmt. 05/10: no change in presentation. due to lack of improvement in dental infection Sx, DC PCN and start augmentin. 05/11: no change in presentation. continue current mgmt. 05/12: as for yesterday. dental pain improving a bit. 05/13: expressed to medical student that his brother poisoned him, causing his thyroid disease. no change in presentation. continue current mgmt. 05/14: Pacing unit hallway. keeping to self. patient reports feeling good today; denies any issues at this time. denies SI/HI/VH/AH. per nursing, slept 5 hours. Continue current tx plan. 05/15: slept 6 hours. otherwise isolative, difficult to engage. continue current mgmt. 05/16: slept 7 hours. as for yesterday otherwise. 05/17/25: Slept well, no issue with appetite, skinny and pretty tall. Compliant with medication. No side effects Calm and pleasant upon approach. Some what paranoid. Tangential, however denies other safety concerns. Questions if he is discharging soon. He is on antibiotic for 7 days for mouth pain/tooth pain. We will finish the 7 course up in antibiotic after tonight dose. Then discontinue. 05/18/25: Slept for 5 hours plus hours this morning. In bed most of the shift, no behavior issues. Denies other safety concerns. 05/19: in bed days, up eves. no change in presentation. continue current mgmt. 05/20: no change in presentation. check labs. 05/21: lithium low, TFTs mixed and not all back. increase lithium from 600 BID to 600/900. trend BUN/Cr, with slight elevation. otherwise continue current mgmt. 05/22: no change in presentation. continue current mgmt. 05/23: does not deny someone stole his sperm and impregnated his landlord's child with it. irritable. c/o dental pain, antibx restarted. otherwise continue current mgmt. 05/14: no change in mgt 05/25: more isolative today; no change in mgt 05/26: decreases in methimazole noted. continue psych regimen as is. pt refused to interact with MD today. 05/27: i'm sleeping. no change in presentation. labs tonight. 05/28: no change in behavior. lithium 0.66, BUN stable. continue current mgmt. 05/29: irritable. continue current mgmt. 05/30: no longer in single room. still not engaging, sleeping days. continue current mgmt. 05/31:laying in bed. declined to meet with T/W. pt stated, I want to sleep. I didn't sleep enough . Pt encouraged to reach out to staff if he needs anything. Continue current tx plan. 06/01: Similar to yesterday. laying in bed. Irritable. declined to meet with T/W and pulled bed sheets over head. pt stated, I don't want to talk. I want to sleep . difficult to engage. Continue current tx plan. 06/02: Similar to yesterday. laying in bed. Irritable. declined to meet with T/W. Observed getting drink from kitchen; T/W approached pt and asked if they could speak. patient declined to acknowledge T/W and walked past. Continue current tx plan. 06/03: no change in behavior. continue tx plan. 06/04/25: Passive engaged in the assessment, in bed mostly sleeping this morning which could be interfere with his nighttime. Cover body under the blanket Slept for 4-5 hours last night. Was medication compliant, attended no groups, isolative to self in room. No SI/SIB/HI/AVH expressed. 06/05: continue tx plan. 06/06: reports feeling fine ; continues guarded. difficult to engage. declining to meet with T/W. continue tx plan. 06/07/25: Slept for 4 hours at night, but has been sleeping most of the day yesterday as well. Spent majority of the shift in bed, was medication compliant. Passive engaged in the conversation. He said he will try to change the sleeping pattern so that he can be awake more during the daytime. Appear to be sedated in the morning. No safety behavior. 06/08/25: Slept for 3-4 hours last night, compliant with medications. Denies side effects, denies other safety concerns. Continued to encourage patient to up and down more than on the unit he spent most of the day sleeping. He is pleasant upon approach. No other behavior issues. Denied voices/hallucinations. Suicide thoughts or homicidal thoughts. 06/09: sleeping, minimally rousable. denies problems. continue current mgmt. 06/10: sleeping all day, up most of the night. minimally rousable. denies problems. continue current mgmt. per JAMAICA Arrington: Jean said when he leaves he can return to [facility]. he was living with a lady there and can go back. He plans to get a job to pay off his debt. He said he owes money because they sent him back here due to losing his passport and he owes them money for the temporary emergency passport and the flight back to the . so his main focus is to get a job. he said he will try things here first and if it doesn't work out he plans to return to [place]. 06/11/25: Passively engaged in conversation while in bed sleeping/resting. Able to answer question appropriately, but seems to be minimized. Denies SI/SIB/HI/AVH. He slept 5 hours last night, spent most of the day in bed sleeping. Attempted to no groups, observed out to the afternoon in the subramanian near the nurse station. No change in presentation. Encourage groups,up and engaged in groups. 06/12: not engaging. no complaints or questions re med changes. cross-taper zyprexa in favor of invega, give MONTERO invega. tonight, decrease zyprexa to 15 mg and start invega 3 mg. otherwise continue current mgmt. 06/13: continues avoidant and disengaged. denies side effects from med change last night. informed cross-titration will advance tonight. decrease zyprexa to 10 mg tonight, increase paliperidone to 6 mg. plan to continue by 5 mg zyprexa and 3 mg paliperidone increments every several days as tolerated until zyprexa DCed and paliperidone at 12 mg QHS. once it is established pt is tolerating PO Paliperidone, invega sustenna to be administered. 06/14: Continue current regimen and plans 06/15: Continue current plans and regimen 06/16: irritable re neuroleptic change. denies side effects or problems with it, however. minimally engageable. increase invega to 9 QHS and decrfease zyprexa to 5 QHS. 06/17/25: Continued to be irritable regarding medication change/titration. However engaged in conversation, hyper verbal, paranoid, reports medication slow his thoughts down and he does not not like it. Poor insight and poor judgment. He thinks he only need lithium, not other medications. Remind patient to continue doing the sleep pattern changing. However his in bed mostly this morning. Slept for 4-5 hours last night. 06/18/25: Slept for 5 hours last night as he continues sleeping during daytime. Compliant with meds, did not c/o side effects.Passingly engaging in assessment. Denies safety concerns. Tolerate the tritation well. Will increase Inveag up to max of 12 tomorrow and Discontinue Olanzepine at HS. Continue to encourage up and out on day so he can sleep better at HS. 06/19/25: Patient slept for 5.5 hours last night, was medication compliant, mostly in his room yesterday but seen more often in the evening. Patient is awake in his room, listen to music, his morning tray was taken away and clean the area. He is very pleasant to talk to today, reports he feels good, denies side effects from medications, denies any safety concerns. Denies feeling sedation, denies anxiety/depression. He is receptive with the plan of medication over the weekends and next week, happy to hear about the medication plan. He also agree with the MONTERO Invega Sustenna on Monday. Encourage him to go out and attended to groups, he said that he will. Reported that he was out for groups a couple of times last week. Discontinue Haldol p.r.n.. Discontinue scheduled Zyprexa 5 mg at bedtime. Only on 10 Zyprexa at g IM daily p.r.n. as backup orders if refused Invega. Invega 12 mg at bedtime. Plan to monitor over the weekends and will give long-acting injection on Monday if tolerate with the p.o. well Reduce Seroquel 200 mg p.r.n. at bedtime to 100 p.r.n. at bedtime for insomnia. Seroquel 50 mg b.i.d. p.r.n. for agitation. Discontinue Motrin. Patient on lithium. Labs were for MondayJune 20: CMP, TSH with free T4. 06/20/25: In bed most of the day, was compliant with medication, however refused labs work. Re- scheduled for Monday. Continue with Invega 12 mg at bedtime. We will reassess and offer long-acting injection on Monday. Continue to encourage patient to get up and go to some groups. No safety concerns expressed. Minimal peer and staff interaction. 06/21: no change in presentation. start MONTERO monday. no s/e from invega. otherwise continue current mgmt. 06/22: stable. continue current mgmt. 06/23/25: More awake and alert. Review with patient regarding policy for his phone use BID 30min each time, patient is educated on compliant with policy. He asks for more 5-10 min extra headphone use at night on the weekends after 2300. Once again, redirected for unit rules. He agrees with MONTERO which is scheduled today. Discontinue Invega PO Invega Sustenna 234mg IM once. Will monitor for possible side effects and sedation. Will offer 156mg after 1 week. If mentaly stable with 156mg, will maintain at this dose, if not will offer 234mg Monthly. 06/24/25: Slept for 5 hours last night, but also went to bed around 7 tonight p.m. last night per his report. He also attended to groups in the afternoon yesterday. Compliant with medications. No side effects from Invega Sustenna. He is engaged in full conversation today why he is in bed, denies safety concerns. Observe he is on the unit, social with peers and staff in longer period of time. Appeared to be happy. He plans to take shower today. Reported that he was up early but he does not feel hungry in the morning. He is making progress, not too sedated during daytime since switching his medication. Appears to do well so far with Invega Sustenna. 06/25/25: Patient slept for 4 hours last night, however he reported was napping in the afternoon for couple hours which affect his sleeping pattern at night. Educate patient to not napping late in the evening. He is receptive. Compliant with medications, no side effects. He reports his did not shower yesterday but he will today. He is awake in his room not sleeping, engage in full conversation, no delusional or paranoid statements make. He is visible at times. Continued to improve in mood, engaging in other activities on the unit. Denies other safety concerns. Denies hallucinations. No irritability mood, not sedated during day time compared to when he was taking olanzapine. We will schedule Invega Sustenna 156 next Monday. Work with director of social work to see where he will return to. He probably needs [facility]NA to manage medication. 06/26/25: He slept for 5 hours, compliant with medications. Denies side effects. He self-reported that he went to bed last night and was able to fall asleep by 01:00 and able to stay asleep whole night. Denies safety concerns. I spoke with him in length today regarding aftercare. He thinks he will go to the hospital in [place] to ask them regarding his heart condition. He thinks people was lying to get him to the hospital as he does not have mental health illnesses. He believes that he has been exactly the same he was seen he was a little, and at he able to remember everything in the past. He also reports that he used to use [facility] in [place]. At he does not want [facility] application. I explained to him that in order to be a candidate patient have to be a safe that he has mental health issues, so people can submit the application, and from the [facility] worker will contact him to do assessment if he qualify for any services that they can provide. Patient is receptive application, director of social work was notified. Patient also would like to have services with [facility] in [place]. He showered yesterday morning, did not go to groups yesterday, but he will go to some groups today per his plan for the day, more awake, engaged in conversation, no irritability. However, continued to be poor insight of his illnesses. He does not want to return to his brother I have not talking to him for since 2021. He reported that that his brother told other people that patient was trying to kill his brother with a knife. He had question regarding the Invega Sustenna which is scheduled for next Monday. He does having good memory for whatever we discussed the past couple of days. He plans to continue taking meds as prescribed after discharge. However, with unsafe discharge plan at this current time, I would think he will relapse shortly after discharge if he does not have good support system in community. He has no where to turn, and limited support in community. He does not think MJ will affect his brain functions and mental status. He would potential smoke it when he leaves. 06/27/25: Slept for 6 hours last night which is improving, continue to educate patient not to nap late in the evening so that he can sleep better at night. He still does not want to change medication at bedtime earlier than 2300. Observe he is out on the unit, listen to music, social, and attended groups, he also tried to drink couple of coffee to keep him awake during the daytime. Educate patient not to much coffee late in the afternoon. He is medication compliant. Denies side effects. Talk to director of social work this morning that he will do [facility] application on Monday. Denies safety concerns. Have poor insight of mental health. 06/28/2025: No changes to current plan. Invega Sustenna 156 mg IM scheduled on 06/30 at 10:00 06/29: no changes 06/30/25: Got Second loading dose of Invega Sustenna today. visible, social and appropriate. Did not attend groups over the weekends but he plans to attend groups today. Report sleeping better at night. Do not want HS scheduled time to change. Continue to work with for [facility] application, OP services. He would like to FLU with [facility] in [place]. Educate patient of risk harming kidneys if taking [place] with NSAIDs, Motrin. Continue to reinforce. Invega Sustenna 156mg IM. Pending effects. 07/01/25: Continued to improve in mood, sleep, and appetite. Compliant with medications. He is visible, intermittently attended groups. Engaged in treatment, engaged in encourage cessation with this provider and director of social work. He side the [facility] application, he also signed consent for [facility] so that director of social work can work on discharge plan. Per director of social work, patient is on the waiting list which is a definite when he will have the bed with [facility] services. Denies safety concerns, denies side effects from medications. 07/02/25: Slept for 6 hours, compliant with meds, intermittently attended groups. No behavior issues. Worry/anxious regarding [facility] services and assessment coming this Monday. He is paranoid regarding what his brother will talk about when staff call. He thinks his brother will make up story and lie to us regarding reasons brought him to the hospital. Denies safety concerns. Denies hallucination. Continue to have poor insight of mental illnesses. [facility] will do assessment on Monday at 1000. 07/03/25: Patient slept for 8 hours which is much more hours than normal the past weeks, continued to improve with slept parents, compliant with medications. Reported that he has severe headache earlier today, took Excedrin and is tolerable during assessment. Patient was talking about how he was paranoid when he was at [facility] due to lack of sleep. Educate patient what is mental health illnesses. He is very simple, accepted education. Isolate this morning in his room. He plans to just rest this morning due to the headache. Denies safety concerns. Calm, pleasant, and cooperative upon approach. Explained more in details of of [facility] services. He is looking forward to having assessment tomorrow by 10:00 with them. 07/04/25: Patient slept well, normal sleeping pattern at night, he slept for 8 hours, compliant with medications. Sinus congestion is improved. He met with [facility] workers for 1-1/2 hours this morning. However due to his tangential thoughts, [facility] we will need to come back to see him again next week on . He feels a little bit disappointed is is not fast enough that the way that he thinks things are not easy . He asked question what is the long-term. Explained to him, and appeared that he does not want to be in the long-term, he does not not feel he has had mental health. Continued to be poor insight of the illnesses which could be at his baseline. [facility] will refer patient to PACT team. Denies safety concerns, he is visible, social inappropriate. Attended groups, no behavior issues 07/05: Keeping to self. Patient reports feeling fine today; pt states he is focused on leaving soon. Patient stated, I hope I can leave soon . denies SI/HI/VH/AH. denies any issues at this time. Continue current tx plan. 07/06: Continue current tx plan. 07/07: continue current tx plan 07/08: per med consult, check TSH/free T4 prior to discharge and refer to endocrinology. per staff, pt has improved substantially since last time this underwriter was working with pt; pt is not notably focused on delusional material. work toward safe discharge plan. 07/09/25: Patient slept through the night, medication compliant. No behavior issues. Spent time in his room this morning. In the evening, patient reports that he has been experience extra saliva-drooling which could be from the side effects of medication. Robinul 0.5 mg twice a day scheduled. Pending effect. No other safety concerns. He is informed that [facility] worker will come to continue with the assessment at around 09:30 on 07/10/25. 07/10: more responsive to interaction with MD today. per JAMAICA Arrington, pt called his brother on [facility] recommendation. considering options for discharge. 07/11: continues more responsive. asking for [facility] respite bed at discharge. c/o dental pain and chronic knee pain. as pt is a longer term pt than most, will investigate if accessing dental care while inpatient here is possible. next sustenna shot ordered for 07/28. continue current mgmt. 07/13/2025: No changes to current regimen 07/14: no dental care possible per [place], mental health director (as reported by Devin, M3 nurse mgr). no change in presentation. increase glycopyrrolate to 1 BID. otherwise continue current mgmt. 07/15: DFA last night had some seroquel with good effect. sleepy in bed this morning. no questions or complaints. advised to work with JAMAICA Arrington on dispo to [facility] respite bed. 07/16: no change. awaiting [facility] respite bed. continue current mgmt. 07/17: no change in presentation. DM coming to visit tomorrow. continue current mgmt. 07/18: stable presentation. DM says respite within 2 weeks. continue current mgmt. 07/19/25: No issues with appetite and sleep, compliant with meds, visible, social appropriately when out to common area. Report mild drooling which not got worse. Shave his head this morning. Moved to new room as he had an arguing with roommate who open the blinds in his room per nursing. Denies safety concerns, appear isolative and depressed. He is quiet. Continue with current plan. 07/20/25: No change. Slept for 5 hours last night, received p.r.n. Seroquel on the overnight. Isolated himself in bed, appeared to be depressed, not social with peer or staff. Deny physical discomfort. No safety concerns. Encourage patient to be out and visible, advised not to sleep too much because it can interfere with bedtime. 07/21: no change in presentation. awaiting [facility] respite bed. continue current mgmt. 07/22: no change in presentation. brother visiting today for the first time. awaiting [facility] bed. continue current mgmt. 07/23: no longer wants [facility]. planning to have his brother buy him a bus ticket to [place], [place], where he has aunt and cousins, plans to live with them. discuss scripts and medical records provisions. planning to get MONTERO monday and discharge monday or monday. 07/24: per , brother supports [place] plan. no change in presentation. continue current mgmt. 07/25: now wants to defer discharge by 2 weeks [facility] relatives are going on vacation for the next 2 weeks. otherwise no change. 07/26: Continue current management and treatment plan. 07/27: continue current management and treatment plan. 07/28: deferring discharge by 2 weeks. continue current mgmt otherwise. to receive invega sustenna MONTERO today 234 mg. 07/29: received invega sustenna 234 mg yesterday. otherwise no change in presentation or Tx plan. 07/30: no change in presentation. per , pt now refusing to allow contact with brother to coordinate discharge planning. 07/31: no change. continue current mgmt. 08/01: pt states we may be in touch with his brother re dispo planning. no change otherwise, continue current mgmt. 08/02: no change in presentation or plan. 08/03: taking PRN seroquel at HS to help sleep. sleeping much of the day as well. continue current mgmt. discharge in 1.5 weeks. 08/04: No change in presentation. Contiunue current tx plan. Plan for d/c in ~1.[address] Cedillo's note from 08/03----team can discuss dispo planning w/ pt's brother. Next Invega Sustenna due 09/02/2508/05: continue current tx plan 08/06: More engaging with t/w today. Agreeable w/ plan to d/c next Mon. Brother is finding a room to rent for pt. continue current tx plan/med regimen 08/07: Spent most of the day in bed. No behavioral issues. Continue current tx plan 08/08: Stable. Aiming for d/c next Monday. Will continue current tx plan 08/10/2025: No changes Reason for continued inpatient stay Substantial Risk for: rapid decompensation Time Spent With Patient Time: Total time managing care of this patient today ____ minutes.
[2025-08-10 19:24] VITALS: BP 142/77; PULSE 88; RESP 16; TEMP 37.1; O2SAT 100
--- NOTE | 2025-08-11 15:24 | HO.PSYCHPN ---
Subjective Subjective Date of Service: 08/11/25 Reason For Visit: psychotic disorder Interim History: Chart reviewed, case discussed with tx team. slept 6 hrs per nursing report Pt has been visible in the milieu, went on fresh air break. He greeted t/w in the subramanian and greeted his rommate by name. He reports feeling 'good', looking forward to discharge on Mon. He asks for a letter with the dates of his hospitalization so that he can renew his passport. He had a temporary passport and wasn't able to complete the paperwork to get the regular passport since he was hospitalized after returning from being in [place] x 3 yrs. He denies any psychiatric/physical concerns Medication Compliance: Yes Side effects from medications: No Mental Status Exam Mental Status Exam Narrative: Appearance: Casually dressed. Grooming/hygiene wnl. Good eye contact Attitude: cooperative Speech: Fluent and wnl in regard to volume, tone, prosody Motor activity: Calm and without any tics, tremors or dyskinesias. Steady gait Mood: as noted above Affect: appropriate, reactive,bright Thought process: goal directed and without evidence of formal thought disorder Thought content: as noted above. Future oriented. No SI/violent ideation reported Perception: No AH/Vh reported, does not appear to respond to internal stimuli Alert/oriented in all spheres Cognition grossly intact Insight: intact Judgment: intact Diagnostics Vital Signs (24Hr): Vital Signs - 24 hr 08/10/25 19:24 Temperature 98.7 F Pulse Rate 88 Respiratory Rate 16 Blood Pressure 142/77 H Pulse Oximetry 100 Oxygen Delivery Method Room Air BMI result Body Mass Index 23.2 Labs 06/25/25 08:02 06/20/25 20:35 Medications Medications Current Medications Acetaminophen (Acetaminophen 325 Mg Tablet) 650 mg PO Q4H PRN PRN Reason: Pain, Mild (Pain Scale 1-3) Last Admin: 07/06/25 22:53 Dose: 650 mg Al Hydroxide/Mg Hydroxide (Magnesium Hydrox/Alum Hydrox 30 Ml Oral.Susp) 30 ml PO Q6H PRN PRN Reason: Heart burn Benzocaine (Benzocaine 20 % Oral Gel 14 Gm Tube) 1 appl MUCOUS MEM QID PRN; Protocol PRN Reason: Mouth Sore Pain Last Admin: 04/26/25 18:33 Dose: 1 appl Diazepam (Diazepam 10 Mg/2 Ml Cartridge) 10 mg IM BID PRN PRN Reason: refusal of lithium, per [place] Last Admin: 04/11/25 09:56 Dose: 10 mg Glycopyrrolate (Glycopyrrolate 1 Mg Tablet) 1 mg PO BID [facility] Last Admin: 08/11/25 09:58 Dose: 1 mg Hydrocortisone (Hydrocortisone 1 % Cream 28.35 Gm Tube) 1 appl TOPICAL DAILY PRN; Protocol PRN Reason: rash Last Admin: 07/31/25 17:37 Dose: 1 appl Euclid Carbonate (Euclid Carbonate Er 300 Mg Tablet.Er) 600 mg PO DAILY [facility] Last Admin: 08/11/25 09:57 Dose: 600 mg Euclid Carbonate (Euclid Carbonate Er 450 Mg Tablet.Er) 900 mg PO DAILY@2300 [facility] Last Admin: 08/10/25 23:09 Dose: 900 mg Magnesium Hydroxide (Milk Of Magnesia 30 Ml Oral.Susp) 30 ml PO DAILY PRN PRN Reason: Constipation Methimazole (Methimazole 10 Mg Tablet) 10 mg PO DAILY [facility] Last Admin: 08/11/25 09:57 Dose: 10 mg Nicotine (Nicotine 21 Mg Patch.Td24) 21 mg TRANSDERMA DAILY PRN PRN Reason: nicotine cravings Last Admin: 04/12/25 17:06 Dose: 21 mg Nicotine Polacrilex (Nicotine Polacrilex Lozenge 2 Mg Lozenge) 2 mg BUCCAL Q1H PRN PRN Reason: Nicotine Cravings Last Admin: 04/30/25 08:49 Dose: 2 mg Patient Own Medication Excedrin 250/250/65mg 2 each PO Q8H PRN PRN Reason: Migraine Headache Last Admin: 08/04/25 07:28 Dose: 2 each Olanzapine (Olanzapine 10 Mg Vial) 10 mg IM DAILY PRN PRN Reason: if refuse Invega PO Paliperidone Palmitate (Paliperidone Palmitate 234 Mg/1.5 Ml Syringe) 234 mg IM Q30D [facility] Last Admin: 07/28/25 16:55 Dose: 234 mg Pseudoephedrine HCl (Pseudoephedrine Hcl 30 Mg Tablet) 30 mg PO Q6H PRN PRN Reason: Congestion Last Admin: 07/03/25 21:18 Dose: 30 mg Quetiapine Fumarate (Quetiapine Fumarate 100 Mg Tablet) 100 mg PO BEDTIME PRN PRN Reason: insomnia Last Admin: 08/10/25 23:08 Dose: 100 mg Quetiapine Fumarate (Quetiapine Fumarate 50 Mg Tablet) 50 mg PO BID PRN PRN Reason: agitation Last Admin: 08/03/25 00:36 Dose: 50 mg Sodium Chloride (Sodium Chloride 0.65 % Nasal 44 Ml Sprbtl) 1 spray NOSTRIL-B Q4H PRN PRN Reason: Congestion Last Admin: 07/03/25 23:03 Dose: 1 spray Allergies Allergies Allergy/AdvReac Type Severity Reaction Status Date / Time No Known Allergies Allergy Verified 03/26/25 14:24 Assessment & Plan Assessment & Plan (1) Becca: Status: Acute Code(s): F30.9 - Manic episode, unspecified (2) Graves disease: Status: Acute Code(s): E05.00 - Thyrotoxicosis with diffuse goiter without thyrotoxic crisis or storm Assessment and Plan: Hyperthyroidism/Graves disease. He will need follow up with endocrinology as an outpatient He will also need a primary care doctor referral as an outpatient Per previous notes- plan was discussed with Dr. Bejarano, patient will need free T4 weekly Methimazole was decreased to 15 mgs daily for three days and then 10 mgs daily (currently on 10 mg qd) TSH and free T4 every 4 weeks. No need to draw thyroid stimulation immunology or TSH receptor AB (3) Dental abscess: Status: Acute Code(s): K04.7 - Periapical abscess without sinus Assessment and Plan: Carious tooth/dental infection Recently treated with PEN VK 500 mg q.6 hours for 7 days Patient will need follow up with dentist on discharge for tooth extraction Motrin helping pain. Plan 03/26: offer lithium and seroquel for becca. continue methimazole and beta joanne for hyperthyroidism as started at [facility]. trend TFTs. 12b. 03/27: taking methimazole and beta joanne. refused HS meds last night, took morning meds today. continue to encourage medication compliance. 03/28: intermittently taking meds. wants all meds in morning. pressured, manic, paranoid delusions. encouraged to take lithium but states he will not. all meds ordered for morning. 03/29: Keeping to self. no groups. observed laying in bed listening to music on unit headphones. pleasant. Pt reports feeling good today and sleeping well. declined lithium and zyprexa. denies SI/HI/VH/AH. continue current tx plan. 03/30:Irritable. upset he was unable to use his personal hygiene products. Per nursing, pt threatened staff and squeezed tooth paste throughout unit hallway to show his frustration. Pt was able to calm down after speaking with security. declined medications. 03/31: Keeping to self. laying in bed listening to music. refused medications. calm today. Patient reports feeling great ; pt stated, nothing is wrong with me. I'm waiting so I can leave tomorrow. I'm hoping for the best . denies SI/HI/VH/AH. per nursing, slept 6 hours. Continue current tx plan. 04/01: variably calm on the unit versus highly agitated. paranoid delusions, irritability, lability continue. seems to believe MD has met him prior to the present hospitalization and is stalking him. believes brother behind conspiracy to have him psychiatrically hospitalized. has been refusing all medications, including for hyperthyroidism. informed he would be filed on. filed. continue to offer medications. 04/02: continues agitated, belittling, verbally aggressive, refusing all medications including for hyperthyroidism. continue to offer medication. 04/03: paranoid there is a conspiracy to hospitalize him. threatening to stick a stick in staff once he is released by justice court judge. insists his hyperthyroidism was cured at [facility]. asserts there is NOTHING wrong with him. continue to offer medication. 04/04: irritable, rejecting. verbally abuses MD and sends him away: see you on monday [in court]. continue to offer medication for thyroid condition and mental illness. 04/05 continue tx. suspicious and guarded, accusatory, verbal threats to hurt staff and peers 04/06 intrusive, posturing towards staff and peer who he thinks is not real and is an impostor, continues to make verbal threats to harm him but thinks that because he is not real he may not experience any pain. 04/07: threatening statements and behaviors of yesterday noted. pt sleeping this morning, dismissive of MD. 04/08: asleep days. committed and meds ordered by court. 04/09: on being informed of court order and MD insisting on meds, pt escalated to hurling food item in container against wall at high speed and saying he wished he could do the same to MD's head. pt eventually took court ordered meds PO. sensodyne and excedrin not available in pharmacy (pt requesting them). 04/10: continue tx. Pt accepting medication today. 04/11: Keeping to self. Lying in bed most of morning. Declined to meet with T/W. Pt stated, I'm fine. I don't need anything . Listening to headphones in room. Declined court ordered PO medications; received IM medications. Refused vital signs.continue tx plan. 04/12: got IMs yesterday, took PO this morning. sleepy, no concerns or complaints. 04/13: taking PO meds again. slept 7 hours. sleepy again mid morning refusing interview. continue current mgmt. 04/14: sleeping, rousable. denies being sedated or tired, says he's just bored. no questions or complaints. informed of need to check labs. check lithium level and thyroid labs tonight. 04/15: refusing labs. delusional re his brother harming him. verbally abusive toward MD. spat in floor. happy with improvement in proptosis. 04/16: Lying in bed. Calm. cooperative. guarded. Pt reports feeling tired this morning d/t poor sleep last night. Pt stated, I don't need anything. I didn't sleep well so I'm trying to catch up . denies any issues at this time. denies SI/HI/VH/AH. Continue current tx plan. 04/17: more calm today, less explosive. continue current mgmt. 04/18: continues more calm. tolerating moments of frustration without verbally attacking MD. slept only 2 hours overnight, however. continue current mgmt. 04/19 continues to push boundaries and limits with staff mike around cell phone- 04/20 - aggressive with staff and unpredictable- threw water pitcher at staff behind desk/-when seen by provider passive in bed-denying all compaints/sys- no insight 04/21: appears as per last week. more difficult behaviors around cell phone use, did throw pitcher of water at RN monday over phone use and was restrained. continue current mgmt. 04/22: continues to have conflict around cell phone use. consolidate zyprexa at HS to decrease daytime sedation. 1:1 allegra shift until peer he is accusing of not being a real patient and appears to be targeting discharges tomorrow. 04/23: lithium 0.6 on 600 BID. sleeping better, remains delusional (telling SW who is marginally younger than him that she could be his daughter). just changed zyprexa dosing as of last night. continue current regimen and observe for continued stabilization. T/C slight increase in lithium dosing. 04/24: Laying in bed. guarded. calm. did not want to get out of bed to meet with T/W. Pt reports feeling great today but declined to go into detail. listening to music on unit headphones. Pt stated, I'm fine. I don't need anything . denies any issues at this time. denies SI/HI/VH/AH. Continue current tx plan. 04/25: Laying in bed. keeping to self. calm. paranoid. Discussed incident that occurred with staff last evening. Pt stated, the counselor made up a lie yesterday. I said she looks like my ex-girlfriend. I know they are related. They want to make up a lie to irritate me. They are trying to talk to me so they can use recording devices and make me look some kind of way . listening to music on unit headphones. denies SI/HI/VH/AH. Continue current tx plan. 04/26: Continue current regimen and plans. Increase Zyprexa 20 mg q.h.s. fresh air break withheld 04/27: Continue current regimen and plans 04/28: somewhat less irritable and agitated than last week. however, over the weekend was claiming he was the father of a footballer on TV and also that a staff member is a twin of his ex-GF (and he pushed staff member). TFTs improving. continue current mgmt. 04/29: no change in presentation. continue current mgmt. 04/30: no irritable edge today. calm, pleasant. engaging in small talk. reality testing not pressed. continue current mgmt for now. 05/01: no change in presentation. continue current mgmt. 05/02: BPs coming down, DC beta joanne as pt has been refusing anyway. remains not antagonistic toward MD. using phone appropriately. continue current mgmt otherwise. 05/03 continue 05/04: remains delusional, irritable/labile when delusional system confronted. declines to sign TOMMY for [facility] records. continue current mgmt. 05/06: declining to meet with MD, but does meet with medical student. remains upset about yesterday's confrontation re his delusional system. 05/07: Active on unit. keeping to self. pacing unit hallway while listening to unit headphones. medication compliant. patient reports feeling good ; pt stated, I'm just waiting to leave here. I want to return to my life and do things like go grocery shopping . denies SI/HI/VH/AH. Continue current tx plan. 05/08: stable presentation, delusions not being brought to the surface daily. remains affectively improved from admission. continue current mgmt. 05/09: calm, pleasant. no questions or complaints. continue current mgmt. 05/10: no change in presentation. due to lack of improvement in dental infection Sx, DC PCN and start augmentin. 05/11: no change in presentation. continue current mgmt. 05/12: as for yesterday. dental pain improving a bit. 05/13: expressed to medical student that his brother poisoned him, causing his thyroid disease. no change in presentation. continue current mgmt. 05/14: Pacing unit hallway. keeping to self. patient reports feeling good today; denies any issues at this time. denies SI/HI/VH/AH. per nursing, slept 5 hours. Continue current tx plan. 05/15: slept 6 hours. otherwise isolative, difficult to engage. continue current mgmt. 05/16: slept 7 hours. as for yesterday otherwise. 05/17/25: Slept well, no issue with appetite, skinny and pretty tall. Compliant with medication. No side effects Calm and pleasant upon approach. Some what paranoid. Tangential, however denies other safety concerns. Questions if he is discharging soon. He is on antibiotic for 7 days for mouth pain/tooth pain. We will finish the 7 course up in antibiotic after tonight dose. Then discontinue. 05/18/25: Slept for 5 hours plus hours this morning. In bed most of the shift, no behavior issues. Denies other safety concerns. 05/19: in bed days, up eves. no change in presentation. continue current mgmt. 05/20: no change in presentation. check labs. 05/21: lithium low, TFTs mixed and not all back. increase lithium from 600 BID to 600/900. trend BUN/Cr, with slight elevation. otherwise continue current mgmt. 05/22: no change in presentation. continue current mgmt. 05/23: does not deny someone stole his sperm and impregnated his landlord's child with it. irritable. c/o dental pain, antibx restarted. otherwise continue current mgmt. 05/14: no change in mgt 05/25: more isolative today; no change in mgt 05/26: decreases in methimazole noted. continue psych regimen as is. pt refused to interact with MD today. 05/27: i'm sleeping. no change in presentation. labs tonight. 05/28: no change in behavior. lithium 0.66, BUN stable. continue current mgmt. 05/29: irritable. continue current mgmt. 05/30: no longer in single room. still not engaging, sleeping days. continue current mgmt. 05/31:laying in bed. declined to meet with T/W. pt stated, I want to sleep. I didn't sleep enough . Pt encouraged to reach out to staff if he needs anything. Continue current tx plan. 06/01: Similar to yesterday. laying in bed. Irritable. declined to meet with T/W and pulled bed sheets over head. pt stated, I don't want to talk. I want to sleep . difficult to engage. Continue current tx plan. 06/02: Similar to yesterday. laying in bed. Irritable. declined to meet with T/W. Observed getting drink from kitchen; T/W approached pt and asked if they could speak. patient declined to acknowledge T/W and walked past. Continue current tx plan. 06/03: no change in behavior. continue tx plan. 06/04/25: Passive engaged in the assessment, in bed mostly sleeping this morning which could be interfere with his nighttime. Cover body under the blanket Slept for 4-5 hours last night. Was medication compliant, attended no groups, isolative to self in room. No SI/SIB/HI/AVH expressed. 06/05: continue tx plan. 06/06: reports feeling fine ; continues guarded. difficult to engage. declining to meet with T/W. continue tx plan. 06/07/25: Slept for 4 hours at night, but has been sleeping most of the day yesterday as well. Spent majority of the shift in bed, was medication compliant. Passive engaged in the conversation. He said he will try to change the sleeping pattern so that he can be awake more during the daytime. Appear to be sedated in the morning. No safety behavior. 06/08/25: Slept for 3-4 hours last night, compliant with medications. Denies side effects, denies other safety concerns. Continued to encourage patient to up and down more than on the unit he spent most of the day sleeping. He is pleasant upon approach. No other behavior issues. Denied voices/hallucinations. Suicide thoughts or homicidal thoughts. 06/09: sleeping, minimally rousable. denies problems. continue current mgmt. 06/10: sleeping all day, up most of the night. minimally rousable. denies problems. continue current mgmt. per JAMAICA Arringtno: Jean said when he leaves he can return to [facility]. he was living with a lady there and can go back. He plans to get a job to pay off his debt. He said he owes money because they sent him back here due to losing his passport and he owes them money for the temporary emergency passport and the flight back to the . so his main focus is to get a job. he said he will try things here first and if it doesn't work out he plans to return to [place]. 06/11/25: Passively engaged in conversation while in bed sleeping/resting. Able to answer question appropriately, but seems to be minimized. Denies SI/SIB/HI/AVH. He slept 5 hours last night, spent most of the day in bed sleeping. Attempted to no groups, observed out to the afternoon in the subramanian near the nurse station. No change in presentation. Encourage groups,up and engaged in groups. 06/12: not engaging. no complaints or questions re med changes. cross-taper zyprexa in favor of invega, give MONTERO invega. tonight, decrease zyprexa to 15 mg and start invega 3 mg. otherwise continue current mgmt. 06/13: continues avoidant and disengaged. denies side effects from med change last night. informed cross-titration will advance tonight. decrease zyprexa to 10 mg tonight, increase paliperidone to 6 mg. plan to continue by 5 mg zyprexa and 3 mg paliperidone increments every several days as tolerated until zyprexa DCed and paliperidone at 12 mg QHS. once it is established pt is tolerating PO Paliperidone, invega sustenna to be administered. 06/14: Continue current regimen and plans 06/15: Continue current plans and regimen 06/16: irritable re neuroleptic change. denies side effects or problems with it, however. minimally engageable. increase invega to 9 QHS and decrfease zyprexa to 5 QHS. 06/17/25: Continued to be irritable regarding medication change/titration. However engaged in conversation, hyper verbal, paranoid, reports medication slow his thoughts down and he does not not like it. Poor insight and poor judgment. He thinks he only need lithium, not other medications. Remind patient to continue doing the sleep pattern changing. However his in bed mostly this morning. Slept for 4-5 hours last night. 06/18/25: Slept for 5 hours last night as he continues sleeping during daytime. Compliant with meds, did not c/o side effects.Passingly engaging in assessment. Denies safety concerns. Tolerate the tritation well. Will increase Inveag up to max of 12 tomorrow and Discontinue Olanzepine at HS. Continue to encourage up and out on day so he can sleep better at HS. 06/19/25: Patient slept for 5.5 hours last night, was medication compliant, mostly in his room yesterday but seen more often in the evening. Patient is awake in his room, listen to music, his morning tray was taken away and clean the area. He is very pleasant to talk to today, reports he feels good, denies side effects from medications, denies any safety concerns. Denies feeling sedation, denies anxiety/depression. He is receptive with the plan of medication over the weekends and next week, happy to hear about the medication plan. He also agree with the MONTERO Invega Sustenna on Monday. Encourage him to go out and attended to groups, he said that he will. Reported that he was out for groups a couple of times last week. Discontinue Haldol p.r.n.. Discontinue scheduled Zyprexa 5 mg at bedtime. Only on 10 Zyprexa at g IM daily p.r.n. as backup orders if refused Invega. Invega 12 mg at bedtime. Plan to monitor over the weekends and will give long-acting injection on Monday if tolerate with the p.o. well Reduce Seroquel 200 mg p.r.n. at bedtime to 100 p.r.n. at bedtime for insomnia. Seroquel 50 mg b.i.d. p.r.n. for agitation. Discontinue Motrin. Patient on lithium. Labs were for MondayJune 20: CMP, TSH with free T4. 06/20/25: In bed most of the day, was compliant with medication, however refused labs work. Re- scheduled for Monday. Continue with Invega 12 mg at bedtime. We will reassess and offer long-acting injection on Monday. Continue to encourage patient to get up and go to some groups. No safety concerns expressed. Minimal peer and staff interaction. 06/21: no change in presentation. start MONTERO monday. no s/e from invega. otherwise continue current mgmt. 06/22: stable. continue current mgmt. 06/23/25: More awake and alert. Review with patient regarding policy for his phone use BID 30min each time, patient is educated on compliant with policy. He asks for more 5-10 min extra headphone use at night on the weekends after 2300. Once again, redirected for unit rules. He agrees with MONTERO which is scheduled today. Discontinue Invega PO Invega Sustenna 234mg IM once. Will monitor for possible side effects and sedation. Will offer 156mg after 1 week. If mentaly stable with 156mg, will maintain at this dose, if not will offer 234mg Monthly. 06/24/25: Slept for 5 hours last night, but also went to bed around 7 tonight p.m. last night per his report. He also attended to groups in the afternoon yesterday. Compliant with medications. No side effects from Invega Sustenna. He is engaged in full conversation today why he is in bed, denies safety concerns. Observe he is on the unit, social with peers and staff in longer period of time. Appeared to be happy. He plans to take shower today. Reported that he was up early but he does not feel hungry in the morning. He is making progress, not too sedated during daytime since switching his medication. Appears to do well so far with Invega Sustenna. 06/25/25: Patient slept for 4 hours last night, however he reported was napping in the afternoon for couple hours which affect his sleeping pattern at night. Educate patient to not napping late in the evening. He is receptive. Compliant with medications, no side effects. He reports his did not shower yesterday but he will today. He is awake in his room not sleeping, engage in full conversation, no delusional or paranoid statements make. He is visible at times. Continued to improve in mood, engaging in other activities on the unit. Denies other safety concerns. Denies hallucinations. No irritability mood, not sedated during day time compared to when he was taking olanzapine. We will schedule Invega Sustenna 156 next Monday. Work with elementary school social worker to see where he will return to. He probably needs VNA to manage medication. 06/26/25: He slept for 5 hours, compliant with medications. Denies side effects. He self-reported that he went to bed last night and was able to fall asleep by 01:00 and able to stay asleep whole night. Denies safety concerns. I spoke with him in length today regarding aftercare. He thinks he will go to the hospital in [place] to ask them regarding his heart condition. He thinks people was lying to get him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
[2025-08-11 20:09] VITALS: BP 114/69; PULSE 84; RESP 16; TEMP 36.9; O2SAT 100
--- NOTE | 2025-08-12 18:50 | HO.PSYCHPN ---
Subjective Subjective Date of Service: 08/12/25 Reason For Visit: psychotic disorder Interim History: chart reviewed, case discussed with team Pt is looking forward to being d/c'd home tomorrow. He denies feeling depressed/anxious, SI/violent ideation, AH/VH. He reports good sleep/appetite. Denies med SE Visible in milieu, affect has been brighter this wk Medication Compliance: Yes Side effects from medications: No Mental Status Exam Mental Status Exam Narrative: Appearance: Wearing hospital zach. Grooming/hygiene wnl. Good eye contact Attitude: cooperative Speech: Fluent and wnl in regard to volume, tone, prosody Motor activity: Calm and without any tics, tremors or dyskinesias. Steady gait Mood: as noted above Affect: appropriate, reactive, brightens up appropriately Thought process: goal directed and without evidence of formal thought disorder Thought content: as noted above. Future oriented. Perception: does not appear to respond to internal stimuli Alert/oriented in all spheres Cognition grossly intact Insight: intact Judgment: intact Diagnostics Vital Signs (24Hr): Vital Signs - 24 hr 08/11/25 20:09 Temperature 98.5 F Pulse Rate 84 Respiratory Rate 16 Blood Pressure 114/69 Pulse Oximetry 100 Oxygen Delivery Method Room Air BMI result Body Mass Index 23.2 Labs 06/25/25 08:02 06/20/25 20:35 Medications Medications Current Medications Acetaminophen (Acetaminophen 325 Mg Tablet) 650 mg PO Q4H PRN PRN Reason: Pain, Mild (Pain Scale 1-3) Last Admin: 07/06/25 22:53 Dose: 650 mg Al Hydroxide/Mg Hydroxide (Magnesium Hydrox/Alum Hydrox 30 Ml Oral.Susp) 30 ml PO Q6H PRN PRN Reason: Heart burn Benzocaine (Benzocaine 20 % Oral Gel 14 Gm Tube) 1 appl MUCOUS MEM QID PRN; Protocol PRN Reason: Mouth Sore Pain Last Admin: 04/26/25 18:33 Dose: 1 appl Diazepam (Diazepam 10 Mg/2 Ml Cartridge) 10 mg IM BID PRN PRN Reason: refusal of lithium, mary floyd Last Admin: 04/11/25 09:56 Dose: 10 mg Glycopyrrolate (Glycopyrrolate 1 Mg Tablet) 1 mg PO BID [facility] Last Admin: 08/12/25 09:35 Dose: 1 mg Hydrocortisone (Hydrocortisone 1 % Cream 28.35 Gm Tube) 1 appl TOPICAL DAILY PRN; Protocol PRN Reason: rash Last Admin: 07/31/25 17:37 Dose: 1 appl Burns Carbonate (Burns Carbonate Er 300 Mg Tablet.Er) 600 mg PO DAILY [facility] Last Admin: 08/12/25 09:35 Dose: 600 mg Burns Carbonate (Burns Carbonate Er 450 Mg Tablet.Er) 900 mg PO DAILY@2300 KRISTAL Last Admin: 08/11/25 23:22 Dose: 900 mg Magnesium Hydroxide (Milk Of Magnesia 30 Ml Oral.Susp) 30 ml PO DAILY PRN PRN Reason: Constipation Methimazole (Methimazole 10 Mg Tablet) 10 mg PO DAILY [facility] Last Admin: 08/12/25 09:35 Dose: 10 mg Nicotine (Nicotine 21 Mg Patch.Td24) 21 mg TRANSDERMA DAILY PRN PRN Reason: nicotine cravings Last Admin: 04/12/25 17:06 Dose: 21 mg Nicotine Polacrilex (Nicotine Polacrilex Lozenge 2 Mg Lozenge) 2 mg BUCCAL Q1H PRN PRN Reason: Nicotine Cravings Last Admin: 04/30/25 08:49 Dose: 2 mg Patient Own Medication Excedrin 250/250/65mg 2 each PO Q8H PRN PRN Reason: Migraine Headache Last Admin: 08/04/25 07:28 Dose: 2 each Olanzapine (Olanzapine 10 Mg Vial) 10 mg IM DAILY PRN PRN Reason: if refuse Invega PO Paliperidone Palmitate (Paliperidone Palmitate 234 Mg/1.5 Ml Syringe) 234 mg IM Q30D [facility] Last Admin: 07/28/25 16:55 Dose: 234 mg Pseudoephedrine HCl (Pseudoephedrine Hcl 30 Mg Tablet) 30 mg PO Q6H PRN PRN Reason: Congestion Last Admin: 07/03/25 21:18 Dose: 30 mg Quetiapine Fumarate (Quetiapine Fumarate 100 Mg Tablet) 100 mg PO BEDTIME PRN PRN Reason: insomnia Last Admin: 08/11/25 23:22 Dose: 100 mg Quetiapine Fumarate (Quetiapine Fumarate 50 Mg Tablet) 50 mg PO BID PRN PRN Reason: agitation Last Admin: 08/03/25 00:36 Dose: 50 mg Sodium Chloride (Sodium Chloride 0.65 % Nasal 44 Ml Sprbtl) 1 spray NOSTRIL-B Q4H PRN PRN Reason: Congestion Last Admin: 07/03/25 23:03 Dose: 1 spray Allergies Allergies Allergy/AdvReac Type Severity Reaction Status Date / Time No Known Allergies Allergy Verified 03/26/25 14:24 Assessment & Plan Assessment & Plan (1) Becca: Status: Acute Code(s): F30.9 - Manic episode, unspecified (2) Graves disease: Status: Acute Code(s): E05.00 - Thyrotoxicosis with diffuse goiter without thyrotoxic crisis or storm Assessment and Plan: Hyperthyroidism/Graves disease. He will need follow up with endocrinology as an outpatient He will also need a primary care doctor referral as an outpatient Per previous notes- plan was discussed with Dr. Bejarano, patient will need free T4 weekly Methimazole was decreased to 15 mgs daily for three days and then 10 mgs daily (currently on 10 mg qd) TSH and free T4 every 4 weeks. No need to draw thyroid stimulation immunology or TSH receptor AB (3) Dental abscess: Status: Acute Code(s): K04.7 - Periapical abscess without sinus Assessment and Plan: Carious tooth/dental infection Recently treated with PEN VK 500 mg q.6 hours for 7 days Patient will need follow up with dentist on discharge for tooth extraction Motrin helping pain. Plan 03/26: offer lithium and seroquel for becca. continue methimazole and beta joanne for hyperthyroidism as started at [facility]. trend TFTs. 12b. 03/27: taking methimazole and beta joanne. refused HS meds last night, took morning meds today. continue to encourage medication compliance. 03/28: intermittently taking meds. wants all meds in morning. pressured, manic, paranoid delusions. encouraged to take lithium but states he will not. all meds ordered for morning. 03/29: Keeping to self. no groups. observed laying in bed listening to music on unit headphones. pleasant. Pt reports feeling good today and sleeping well. declined lithium and zyprexa. denies SI/HI/VH/AH. continue current tx plan. 03/30:Irritable. upset he was unable to use his personal hygiene products. Per nursing, pt threatened staff and squeezed tooth paste throughout unit hallway to show his frustration. Pt was able to calm down after speaking with security. declined medications. 03/31: Keeping to self. laying in bed listening to music. refused medications. calm today. Patient reports feeling great ; pt stated, nothing is wrong with me. I'm waiting so I can leave tomorrow. I'm hoping for the best . denies SI/HI/VH/AH. per nursing, slept 6 hours. Continue current tx plan. 04/01: variably calm on the unit versus highly agitated. paranoid delusions, irritability, lability continue. seems to believe MD has met him prior to the present hospitalization and is stalking him. believes brother behind conspiracy to have him psychiatrically hospitalized. has been refusing all medications, including for hyperthyroidism. informed he would be filed on. filed. continue to offer medications. 04/02: continues agitated, belittling, verbally aggressive, refusing all medications including for hyperthyroidism. continue to offer medication. 04/03: paranoid there is a conspiracy to hospitalize him. threatening to stick a stick in staff once he is released by substance abuse technician. insists his hyperthyroidism was cured at [facility]. asserts there is NOTHING wrong with him. continue to offer medication. 04/04: irritable, rejecting. verbally abuses MD and sends him away: see you on monday [in court]. continue to offer medication for thyroid condition and mental illness. 04/05 continue tx. suspicious and guarded, accusatory, verbal threats to hurt staff and peers 04/06 intrusive, posturing towards staff and peer who he thinks is not real and is an impostor, continues to make verbal threats to harm him but thinks that because he is not real he may not experience any pain. 04/07: threatening statements and behaviors of yesterday noted. pt sleeping this morning, dismissive of MD. 04/08: asleep days. committed and meds ordered by court. 04/09: on being informed of court order and MD insisting on meds, pt escalated to hurling food item in container against wall at high speed and saying he wished he could do the same to MD's head. pt eventually took court ordered meds PO. sensodyne and excedrin not available in pharmacy (pt requesting them). 04/10: continue tx. Pt accepting medication today. 04/11: Keeping to self. Lying in bed most of morning. Declined to meet with T/W. Pt stated, I'm fine. I don't need anything . Listening to headphones in room. Declined court ordered PO medications; received IM medications. Refused vital signs.continue tx plan. 04/12: got IMs yesterday, took PO this morning. sleepy, no concerns or complaints. 04/13: taking PO meds again. slept 7 hours. sleepy again mid morning refusing interview. continue current mgmt. 04/14: sleeping, rousable. denies being sedated or tired, says he's just bored. no questions or complaints. informed of need to check labs. check lithium level and thyroid labs tonight. 04/15: refusing labs. delusional re his brother harming him. verbally abusive toward MD. spat in floor. happy with improvement in proptosis. 04/16: Lying in bed. Calm. cooperative. guarded. Pt reports feeling tired this morning d/t poor sleep last night. Pt stated, I don't need anything. I didn't sleep well so I'm trying to catch up . denies any issues at this time. denies SI/HI/VH/AH. Continue current tx plan. 04/17: more calm today, less explosive. continue current mgmt. 04/18: continues more calm. tolerating moments of frustration without verbally attacking MD. slept only 2 hours overnight, however. continue current mgmt. 04/19 continues to push boundaries and limits with staff mike around cell phone- 04/20 - aggressive with staff and unpredictable- threw water pitcher at staff behind desk/-when seen by provider passive in bed-denying all compaints/sys- no insight 04/21: appears as per last week. more difficult behaviors around cell phone use, did throw pitcher of water at RN monday over phone use and was restrained. continue current mgmt. 04/22: continues to have conflict around cell phone use. consolidate zyprexa at HS to decrease daytime sedation. 1:1 allegra shift until peer he is accusing of not being a real patient and appears to be targeting discharges tomorrow. 04/23: lithium 0.6 on 600 BID. sleeping better, remains delusional (telling SW who is marginally younger than him that she could be his daughter). just changed zyprexa dosing as of last night. continue current regimen and observe for continued stabilization. T/C slight increase in lithium dosing. 04/24: Laying in bed. guarded. calm. did not want to get out of bed to meet with T/W. Pt reports feeling great today but declined to go into detail. listening to music on unit headphones. Pt stated, I'm fine. I don't need anything . denies any issues at this time. denies SI/HI/VH/AH. Continue current tx plan. 04/25: Laying in bed. keeping to self. calm. paranoid. Discussed incident that occurred with staff last evening. Pt stated, the counselor made up a lie yesterday. I said she looks like my ex-girlfriend. I know they are related. They want to make up a lie to irritate me. They are trying to talk to me so they can use recording devices and make me look some kind of way . listening to music on unit headphones. denies SI/HI/VH/AH. Continue current tx plan. 04/26: Continue current regimen and plans. Increase Zyprexa 20 mg q.h.s. fresh air break withheld 04/27: Continue current regimen and plans 04/28: somewhat less irritable and agitated than last week. however, over the weekend was claiming he was the father of a footballer on TV and also that a staff member is a twin of his ex-GF (and he pushed staff member). TFTs improving. continue current mgmt. 04/29: no change in presentation. continue current mgmt. 04/30: no irritable edge today. calm, pleasant. engaging in small talk. reality testing not pressed. continue current mgmt for now. 05/01: no change in presentation. continue current mgmt. 05/02: BPs coming down, DC beta joanne as pt has been refusing anyway. remains not antagonistic toward MD. using phone appropriately. continue current mgmt otherwise. 05/03 continue 05/04: remains delusional, irritable/labile when delusional system confronted. declines to sign TOMMY for [facility]. continue current mgmt. 05/06: declining to meet with MD, but does meet with medical student. remains upset about yesterday's confrontation re his delusional system. 05/07: Active on unit. keeping to self. pacing unit hallway while listening to unit headphones. medication compliant. patient reports feeling good ; pt stated, I'm just waiting to leave here. I want to return to my life and do things like go grocery shopping . denies SI/HI/VH/AH. Continue current tx plan. 05/08: stable presentation, delusions not being brought to the surface daily. remains affectively improved from admission. continue current mgmt. 05/09: calm, pleasant. no questions or complaints. continue current mgmt. 05/10: no change in presentation. due to lack of improvement in dental infection Sx, DC PCN and start augmentin. 05/11: no change in presentation. continue current mgmt. 05/12: as for yesterday. dental pain improving a bit. 05/13: expressed to medical student that his brother poisoned him, causing his thyroid disease. no change in presentation. continue current mgmt. 05/14: Pacing unit hallway. keeping to self. patient reports feeling good today; denies any issues at this time. denies SI/HI/VH/AH. per nursing, slept 5 hours. Continue current tx plan. 05/15: slept 6 hours. otherwise isolative, difficult to engage. continue current mgmt. 05/16: slept 7 hours. as for yesterday otherwise. 05/17/25: Slept well, no issue with appetite, skinny and pretty tall. Compliant with medication. No side effects Calm and pleasant upon approach. Some what paranoid. Tangential, however denies other safety concerns. Questions if he is discharging soon. He is on antibiotic for 7 days for mouth pain/tooth pain. We will finish the 7 course up in antibiotic after tonight dose. Then discontinue. 05/18/25: Slept for 5 hours plus hours this morning. In bed most of the shift, no behavior issues. Denies other safety concerns. 05/19: in bed days, up eves. no change in presentation. continue current mgmt. 05/20: no change in presentation. check labs. 05/21: lithium low, TFTs mixed and not all back. increase lithium from 600 BID to 600/900. trend BUN/Cr, with slight elevation. otherwise continue current mgmt. 05/22: no change in presentation. continue current mgmt. 05/23: does not deny someone stole his sperm and impregnated his landlord's child with it. irritable. c/o dental pain, antibx restarted. otherwise continue current mgmt. 05/14: no change in mgt 05/25: more isolative today; no change in mgt 05/26: decreases in methimazole noted. continue psych regimen as is. pt refused to interact with MD today. 05/27: i'm sleeping. no change in presentation. labs tonight. 05/28: no change in behavior. lithium 0.66, BUN stable. continue current mgmt. 05/29: irritable. continue current mgmt. 05/30: no longer in single room. still not engaging, sleeping days. continue current mgmt. 05/31:laying in bed. declined to meet with T/W. pt stated, I want to sleep. I didn't sleep enough . Pt encouraged to reach out to staff if he needs anything. Continue current tx plan. 06/01: Similar to yesterday. laying in bed. Irritable. declined to meet with T/W and pulled bed sheets over head. pt stated, I don't want to talk. I want to sleep . difficult to engage. Continue current tx plan. 06/02: Similar to yesterday. laying in bed. Irritable. declined to meet with T/W. Observed getting drink from kitchen; T/W approached pt and asked if they could speak. patient declined to acknowledge T/W and walked past. Continue current tx plan. 06/03: no change in behavior. continue tx plan. 06/04/25: Passive engaged in the assessment, in bed mostly sleeping this morning which could be interfere with his nighttime. Cover body under the blanket Slept for 4-5 hours last night. Was medication compliant, attended no groups, isolative to self in room. No SI/SIB/HI/AVH expressed. 06/05: continue tx plan. 06/06: reports feeling fine ; continues guarded. difficult to engage. declining to meet with T/W. continue tx plan. 06/07/25: Slept for 4 hours at night, but has been sleeping most of the day yesterday as well. Spent majority of the shift in bed, was medication compliant. Passive engaged in the conversation. He said he will try to change the sleeping pattern so that he can be awake more during the daytime. Appear to be sedated in the morning. No safety behavior. 06/08/25: Slept for 3-4 hours last night, compliant with medications. Denies side effects, denies other safety concerns. Continued to encourage patient to up and down more than on the unit he spent most of the day sleeping. He is pleasant upon approach. No other behavior issues. Denied voices/hallucinations. Suicide thoughts or homicidal thoughts. 06/09: sleeping, minimally rousable. denies problems. continue current mgmt. 06/10: sleeping all day, up most of the night. minimally rousable. denies problems. continue current mgmt. per JAMAICA Arrington: Jean said when he leaves he can return to [facility]. he was living with a lady there and can go back. He plans to get a job to pay off his debt. He said he owes money because they sent him back here due to losing his passport and he owes them money for the temporary emergency passport and the flight back to the . so his main focus is to get a job. he said he will try things here first and if it doesn't work out he plans to return to [place]. 06/11/25: Passively engaged in conversation while in bed sleeping/resting. Able to answer question appropriately, but seems to be minimized. Denies SI/SIB/HI/AVH. He slept 5 hours last night, spent most of the day in bed sleeping. Attempted to no groups, observed out to the afternoon in the subramanian near the nurse station. No change in presentation. Encourage groups,up and engaged in groups. 06/12: not engaging. no complaints or questions re med changes. cross-taper zyprexa in favor of invega, give MONTERO invega. tonight, decrease zyprexa to 15 mg and start invega 3 mg. otherwise continue current mgmt. 06/13: continues avoidant and disengaged. denies side effects from med change last night. informed cross-titration will advance tonight. decrease zyprexa to 10 mg tonight, increase paliperidone to 6 mg. plan to continue by 5 mg zyprexa and 3 mg paliperidone increments every several days as tolerated until zyprexa DCed and paliperidone at 12 mg QHS. once it is established pt is tolerating PO Paliperidone, invega sustenna to be administered. 06/14: Continue current regimen and plans 06/15: Continue current plans and regimen 06/16: irritable re neuroleptic change. denies side effects or problems with it, however. minimally engageable. increase invega to 9 QHS and decrfease zyprexa to 5 QHS. 06/17/25: Continued to be irritable regarding medication change/titration. However engaged in conversation, hyper verbal, paranoid, reports medication slow his thoughts down and he does not not like it. Poor insight and poor judgment. He thinks he only need lithium, not other medications. Remind patient to continue doing the sleep pattern changing. However his in bed mostly this morning. Slept for 4-5 hours last night. 06/18/25: Slept for 5 hours last night as he continues sleeping during daytime. Compliant with meds, did not c/o side effects.Passingly engaging in assessment. Denies safety concerns. Tolerate the tritation well. Will increase Inveag up to max of 12 tomorrow and Discontinue Olanzepine at HS. Continue to encourage up and out on day so he can sleep better at HS. 06/19/25: Patient slept for 5.5 hours last night, was medication compliant, mostly in his room yesterday but seen more often in the evening. Patient is awake in his room, listen to music, his morning tray was taken away and clean the area. He is very pleasant to talk to today, reports he feels good, denies side effects from medications, denies any safety concerns. Denies feeling sedation, denies anxiety/depression. He is receptive with the plan of medication over the weekends and next week, happy to hear about the medication plan. He also agree with the MONTERO Invega Sustenna on Monday. Encourage him to go out and attended to groups, he said that he will. Reported that he was out for groups a couple of times last week. Discontinue Haldol p.r.n.. Discontinue scheduled Zyprexa 5 mg at bedtime. Only on 10 Zyprexa at g IM daily p.r.n. as backup orders if refused Invega. Invega 12 mg at bedtime. Plan to monitor over the weekends and will give long-acting injection on Monday if tolerate with the p.o. well Reduce Seroquel 200 mg p.r.n. at bedtime to 100 p.r.n. at bedtime for insomnia. Seroquel 50 mg b.i.d. p.r.n. for agitation. Discontinue Motrin. Patient on lithium. Labs were for MondayJune 20: CMP, TSH with free T4. 06/20/25: In bed most of the day, was compliant with medication, however refused labs work. Re- scheduled for Monday. Continue with Invega 12 mg at bedtime. We will reassess and offer long-acting injection on Monday. Continue to encourage patient to get up and go to some groups. No safety concerns expressed. Minimal peer and staff interaction. 06/21: no change in presentation. start MONTERO monday. no s/e from invega. otherwise continue current mgmt. 06/22: stable. continue current mgmt. 06/23/25: More awake and alert. Review with patient regarding policy for his phone use BID 30min each time, patient is educated on compliant with policy. He asks for more 5-10 min extra headphone use at night on the weekends after 2300. Once again, redirected for unit rules. He agrees with MONTERO which is scheduled today. Discontinue Invega PO Invega Sustenna 234mg IM once. Will monitor for possible side effects and sedation. Will offer 156mg after 1 week. If mentaly stable with 156mg, will maintain at this dose, if not will offer 234mg Monthly. 06/24/25: Slept for 5 hours last night, but also went to bed around 7 tonight p.m. last night per his report. He also attended to groups in the afternoon yesterday. Compliant with medications. No side effects from Invega Sustenna. He is engaged in full conversation today why he is in bed, denies safety concerns. Observe he is on the unit, social with peers and staff in longer period of time. Appeared to be happy. He plans to take shower today. Reported that he was up early but he does not feel hungry in the morning. He is making progress, not too sedated during daytime since switching his medication. Appears to do well so far with Invega Sustenna. 06/25/25: Patient slept for 4 hours last night, however he reported was napping in the afternoon for couple hours which affect his sleeping pattern at night. Educate patient to not napping late in the evening. He is receptive. Compliant with medications, no side effects. He reports his did not shower yesterday but he will today. He is awake in his room not sleeping, engage in full conversation, no delusional or paranoid statements make. He is visible at times. Continued to improve in mood, engaging in other activities on the unit. Denies other safety concerns. Denies hallucinations. No irritability mood, not sedated during day time compared to when he was taking olanzapine. We will schedule Invega Sustenna 156 next Monday. Work with social security specialist to see where he will return to. He probably needs VNA to manage medication. 06/26/25: He slept for 5 hours, compliant with medications. Denies side effects. He self-reported that he went to bed last night and was able to fall asleep by 01:00 and able to stay asleep whole night. Denies safety concerns. I spoke with him in length today regarding aftercare. He thinks he will go to the hospital in [place] to ask them regarding his heart condition. He thinks people was lying to get him to the hospital as he does not have mental health illnesses. He believes that he has been exactly the same he was seen he was a little, and at he able to remember everything in the past. He also reports that he used to use [facility] [place]. At he does not want [facility] application. I explained to him that in order to be a candidate patient have to be a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
[2025-08-12 20:00] VITALS: BP 131/77; PULSE 90; RESP 16; TEMP 36.5; O2SAT 100
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
== END 2025-08-13 12:42 | disposition home or self-care (01) | DRG 885 ==
PROVIDERS: Nurse Practitioner Family; Nurse Practitioner Psychiatric/Mental Health; Admitting Provider Psychiatry & Neurology Psychiatry; Visit Provider Psychiatry & Neurology Psychiatry
DX: F31.2 Bipolar disorder, current episode manic severe with psychotic features (principal); F17.210 Nicotine dependence, cigarettes, uncomplicated; E05.90 Thyrotoxicosis, unspecified without thyrotoxic crisis or storm; Z71.6 Tobacco abuse counseling; K04.7 Periapical abscess without sinus; Z79.899 Other long term (current) drug therapy
CPT/HCPCS: 36415; 80048; 80053; 80061; 80178; 82607; 82746; 83036; 83520; 84439; 84443; 84445; 85025; J2359; J2426; J3360

== ENCOUNTER → 2025-03-26 14:17 | Outpatient (BNV) | payer OTHER, SELFPAY | PROVIDERS: Admitting Provider Psychiatry & Neurology Psychiatry; Visit Provider Psychiatry & Neurology Psychiatry | DX: F30.9 Manic episode, unspecified (principal); E05.90 Thyrotoxicosis, unspecified without thyrotoxic crisis or storm | CPT/HCPCS: 99231; 99232; 99233 ==

== ENCOUNTER → 2025-03-26 14:17 | Outpatient (BNV) | payer MEDICAID, SELFPAY | PROVIDERS: Admitting Provider Psychiatry & Neurology Psychiatry; Visit Provider Nurse Practitioner Family | DX: Z00.8 Encounter for other general examination (principal) | CPT/HCPCS: 99429; 99499 ==